=== PATIENT | female | born 1935 | race Caucasian/White ===

== ENCOUNTER 2021-05-19 15:18 | Emergency (ER) | payer MEDICARE, SELFPAY ==
[2021-05-19 15:30] VITALS: BP 148/70; PULSE 73; RESP 16; TEMP 36.1; O2SAT 99
--- NOTE | 2021-05-19 15:45 | ED.URI ---
HPI - URI/Sore Throat General Chief Complaint: Upper Respiratory Infection Stated Complaint: headache/dizzy/nausea/weak History of Present Illness HPI Narrative: This is a 85-year-old female comes in complaining of multiple complaints patient states that she has had dizziness she spoke with her mailmaster about this. Patient also has had some sweating under her arms and her groin area. Patient also had some nausea and states she is having some body aches she has been vaccinated with Pfizer she is wants to make sure that she does not have Covid Related Data Home Medications Medication Instructions Recorded Confirmed levothyroxine 50 mcg tablet 50 mcg PO DAILY 09/23/20 lorazepam 1 mg tablet 1 mg PO .hs PRN tablet 09/23/20 vbsaiaisislr-Iu-hmkr-minerals tablet PO 09/23/20 Allergies Allergy/AdvReac Type Severity Reaction Status Date / Time sucralfate Allergy Mild HIVES Verified 09/23/20 12:32 sulfamethoxazole Allergy Mild Hives / Verified 09/23/20 12:32 Red Face trimethoprim Allergy Mild Hives / Verified 09/23/20 12:32 Red Face clarithromycin Allergy Unknown Hives Verified 09/23/20 12:32 metronidazole Allergy Unknown Rash Verified 09/23/20 12:32 Sulfa (Sulfonamide Allergy Unknown Hives Verified 09/23/20 12:32 Antibiotics) Review of Systems Review of Systems: HEET headache, body aches ABD : [place] All systems reviewed & are unremarkable except as noted in HPI and below PMFSH Past Medical History Medical History (Updated 05/19/21 @ 15:50 by Marcos Chavira NP) CAD (coronary artery disease) Surgical History Surgical History (Updated 09/23/20 @ 12:38 by Maria Perera CMA) H/O eye surgery Family History Family History (Updated 04/17/14 @ 07:13 by DOCTOR UNKNOWN) Mother Family history of thyroid disease Family history of osteoporosis Family history of cataracts Family history of arthritis Carcinoma of colon Father Family history of arthritis Family history of heart disease in male family member before age 55 Family history of hearing loss Social History Social History (Updated 09/23/20 @ 12:42 by Maria Perera CMA) Smoking status: Never smoker Alcohol intake: never Substance use: never Gender identity (if verbalized by the patient): Female Agree to blood products: No Comments At time as signature, I have reviewed and agree with nursing past medical, social, surgical and family history. Please see nursing chart for further information. There is no relevant family history pertinent to the presenting complaint. Exam Narrative: GENERAL:Well-appearing, well-nourished, and in no acute distress. HEAD:Normocephalic, atraumatic. EYES: PERRLA ENT: Nares clear, no rhinorrhea or epistaxis. Mucous membranes moist. NECK: Supple. CHEST: Clear to auscultation. No respiratory distress. HEART: Regular rate and rhythm. Normal peripheral pulses. ABDOMEN: Soft, nontender, nondistended, normal active bowel sounds. EXTREMITIES: Normal range of motion. No edema. SKIN: Warm, dry, no rash. NEURO: No focal deficits. Alert and oriented x3. Essentially negative exam Course INSECTICIDE MIXER/PA Physician Supervision Negative covid Vital Signs Vital signs: Vital Signs Temperature 96.9 F L 05/19/21 15:30 Pulse Rate 73 05/19/21 15:30 Respiratory Rate 16 05/19/21 15:30 Blood Pressure 148/70 H 05/19/21 15:30 Pulse Oximetry 99 05/19/21 15:30 Temperature 96.9 F L 05/19/21 15:30 Pulse Rate 73 05/19/21 15:30 Respiratory Rate 16 05/19/21 15:30 Blood Pressure 148/70 H 05/19/21 15:30 Pulse Oximetry 99 05/19/21 15:30 MDM - URI/Sore Throat Differential Diagnosis Differential diagnosis: Likely upper respiratory infection, croup, otitis media, sinusitis, viral infection, bronchitis, influenza and pharyngitis Discharge Plan Discharge Clinical Impression: Viral infection Hypertension Qualifiers: Hypertension type: unspecified Qualified Code(
== END 2021-05-19 15:53 | disposition home or self-care (01) ==
PROVIDERS: Emergency Provider Nurse Practitioner Family; PCP Internal Medicine Geriatric Medicine
DX: B34.9 Viral infection, unspecified (principal); I10 Essential (primary) hypertension; Z20.822 Contact with and (suspected) exposure to COVID-19; I25.10 Atherosclerotic heart disease of native coronary artery without angina pectoris; E03.9 Hypothyroidism, unspecified; I48.91 Unspecified atrial fibrillation
CPT/HCPCS: 87426; 99213; C9803; G0463

== ENCOUNTER 2024-08-04 17:38 | Emergency (ER) | payer MEDICARE, SELFPAY ==
--- NOTE | ~2024-08-04 | CT_ITS ---
EXAMINATION: CT brain wo con DATE: 08/04/2024 19:12 INDICATION: altered mental status . TECHNIQUE: Computed tomography (CT) of the head was performed without intravenous contrast. The mA wa s adjusted according to patient size. Iterative reconstruction technique was employed. The dose-lengt h product was 681.00 mGy-cm. COMPARISON: 05/23/2019. FINDINGS: No acute intracranial hemorrhage or extra-axial fluid collection. No hydrocephalus, mass, or herniation. No acute ischemic infarct. Unremarkable dural venous sinus attenuation. No acute osseous abnormality. Left maxillary mucosal thickening, the remaining aerated spaces are clear. Mild atrophy and chronic white matter change. Atherosclerotic intracranial calcification. Right basal ganglia calcification. Left lens replacement. IMPRESSION: No acute intracranial process. Reviewed, dictated and finalized at location [facility]
[2024-08-04 17:46] VITALS: BP 185/69; PULSE 81; RESP 16; TEMP 36.7; O2SAT 96
[2024-08-04 18:00] VITALS: BP 175/73; PULSE 80; RESP 19; O2SAT 98
[2024-08-04 18:55] VITALS: BP 155/75; PULSE 80; RESP 17; O2SAT 96
--- NOTE | 2024-08-04 18:59 | ED.HA ---
HPI - Headache General Chief Complaint: Headache Stated Complaint: multiple complaints Time Seen by Provider: 08/04/24 17:55 History of Present Illness HPI Narrative: Patient is an 88-year-old female who presents to the ER with complaints of a pressure headache , vision changes , decreased hearing, and increased sinus pressure. She reports this morning around 6:30 a.m. she felt a loud pop in her L neck. Patient reports she took Tylenol and that helped her feel better. She reports this afternoon she started experiencing these new symptoms. Patient is unable to determine the exact time. She reports she has a history of cervical spine bad vertebrate issues. Patient also endorses she takes Eliquis because she has a pacemaker. She presents to the ER today because she is worried that she has a brain bleed. Patient believes her equilibrium is off. She denies any fevers, one-sided numbness/ tingling /weakness, nausea/vomiting, chest pain, shortness of breath. Related Data Home Medications ?Medication ?Instructions ?Recorded ?Confirmed ?Last Taken ?Type levothyroxine 50 mcg tablet 50 mcg PO DAILY 09/23/20 Unknown History (Synthroid) lorazepam 1 mg tablet (Ativan) 1 mg PO .hs PRN 09/23/20 Unknown History rusquakxrcto-Wv-txnt-minerals tablet PO 09/23/20 Unknown History (Multiple Vitamin, Womens tablet) Allergies Allergy/AdvReac Type Severity Reaction Status Date / Time sucralfate Allergy Mild HIVES Verified 08/04/24 18:04 sulfamethoxazole Allergy Mild Hives / Verified 08/04/24 18:04 Red Face trimethoprim Allergy Mild Hives / Verified 08/04/24 18:04 Red Face clarithromycin Allergy Unknown Hives Verified 08/04/24 18:04 metronidazole Allergy Unknown Rash Verified 08/04/24 18:04 Sulfa (Sulfonamide Allergy Unknown Hives Verified 08/04/24 18:04 Antibiotics) adhesive tape AdvReac Mild Hives Verified 08/04/24 18:04 Review of Systems Review of Systems: All systems reviewed & are unremarkable except as noted in HPI and below PMFSH Past Medical History Medical History CAD (coronary artery disease) Surgical History Surgical History H/O eye surgery Family History Family History Mother Family history of thyroid disease Family history of osteoporosis Family history of cataracts Family history of arthritis Carcinoma of colon Father Family history of arthritis Family history of heart disease in male family member before age 55 Family history of hearing loss Social History Social History Smoking status: Never smoker Alcohol intake: never Substance use: never Gender identity (if verbalized by the patient): Female Agree to blood products: No Course Vital Signs Vital signs: Vital Signs Temperature 36.7 C 08/04/24 17:46 Pulse Rate 81 08/04/24 17:46 Respiratory Rate 16 08/04/24 17:46 Blood Pressure 185/69 H 08/04/24 17:46 Pulse Oximetry 96 08/04/24 17:46 Oxygen Delivery Room Air 08/04/24 17:46 Temperature 36.7 C 08/04/24 17:46 Pulse Rate 75 08/04/24 20:05 Respiratory Rate 18 08/04/24 20:05 Blood Pressure 141/82 H 08/04/24 20:05 Pulse Oximetry 99 08/04/24 20:05 Oxygen Delivery Room Air 08/04/24 17:46 MDM - Headache MDM Narrative Medical decision making narrative: Patient is an 88-year-old female who presents to the ER with complaints of a pressure headache , vision changes , decreased hearing, and increased sinus pressure. She reports this morning around 6:30 a.m. she felt a loud pop in her L neck. Patient reports she took Tylenol and that helped her feel better. She reports this afternoon she started experiencing these new symptoms. Patient is unable to determine the exact time. She reports she has a history of cervical spine bad vertebrate issues. Patient also endorses she takes Eliquis because she has a pacemaker. She presents to the ER today because she is worried that she has a brain bleed. Patient believes her equilibrium is off. She denies any fevers, one-sided numbness/ tingling /weakness, nausea/vomiting, chest pain, shortness of breath. Labs Ordered: troponin, PTT, INR, CMP, CBC, COVID/flu/RSV Imaging Ordered: CT brain Results: CT brain indicates No acute intracranial hemorrhage or extra-axial fluid collection. No hydrocephalus, mass, or herniation. No acute ischemic infarct. Unremarkable dural venous sinus attenuation. No acute osseous abnormality. Left maxillary mucosal thickening, the remaining aerated spaces are clear. Mild atrophy and chronic white matter change. Atherosclerotic intracranial calcification. Right basal ganglia calcification. Left lens replacement. Diagnosis: sinusitis, sinus headache Consults: None necessary Patient Education/Shared MDM: Results shared with patient. Patient was relieved to hear she did not have a brain bleed or a brain tumor. When CHAMBER OF [employer] DIVISION MANAGER inquired about patient's sinuses she reports my CHAMBER [employer] DIVISION MANAGER tells me my sinuses are really messed. Extensive education was provided to patient regarding congestion and how that can lead to muffled hearing, headaches and facial pain. Patient and her daughter were both in agreement that this could be causing her hearing changes and other symptoms. It is unclear why patient reports her vision has changed, but she states my vision is terrible the way it is, but I just saw the telescope repairer. Patient reports she had an MRI performed recently and the results were normal. She also reports she has a appointment with her primary care provider on Monday, 2 days from now. Patient's daughter reports she does not want to be here. It was discussed with patient that she could try using a nasal steroid spray and Claritin to see if this helps to relieve the pressure in her head and clear up her hearing. Patient and her daughter were in agreement with this plan and will follow-up with primary care on Monday as planned. She reports she has been told by her industrial psychologist that she should not take oral steroids. Patient is in agreement with current treatment plan. All questions answered. Vital signs stable at time of discharge. Differential Diagnosis Differential diagnosis: Likely tension headache, subarachnoid hemorrhage, headache and sinusitis Lab Data Attestation: I reviewed the patient's lab results. 08/04/24 19:24 08/04/24 19:24 Labs: Lab Results 08/04/24 08/04/24 Range/Units 19:04 19:24 WBC 5.1 (4.5-10.0) K/mm3 RBC 4.52 (4.2-5.4) M/mm3 Hgb 14.0 (12.0-15.0) g/dL Hct 42.2 (37.0-47.0) % MCV 93.4 (80-100) fl MCH 31.0 (26-34) pg MCHC 33.2 (32-36) g/dl RDW 14.5 (11.5-14.5) % Plt Count 250 (150-375) k/mm3 MPV 9.7 (7.4-10.4) fl Immature Gran % (Auto) 0.2 (0-0.5) % Neut % (Auto) 50.2 (45.5-73.1) % Lymph % (Auto) 37.8 (18.3-44.2) % Boyle % (Auto) 9.4 H (2.6-8.5) % Eos % (Auto) 1.4 (0-4.4) % Baso % (Auto) 1.0 (0.2-1.2) % Lymph # (Auto) 1.93 (0.9-3.2) K/mm3 Boyle # (Auto) 0.5 (0.1-0.6) K/mm3 Eos # (Auto) 0.1 (0-0.3) K/mm3 Baso # (Auto) 0.1 (0.0-0.1) K/mm3 Abs Immat Gran (auto) 0.01 (0.00-0.031) K/mm3 Absolute Neuts (auto) 2.6 (1.3-6.7) K/mm3 Absolute Nucleated RBC 0.000 (0.0-0.012) K/mm3 Nucleated RBC % 0.0 (0.0-0.2) % PT 12.8 (11.1-14.7) Seconds INR 0.9 APTT 31.0 (22.3-36.8) Seconds Sodium 136 L (137-145) mmol/L Potassium 4.0 (3.4-5.0) mmol/L Chloride 104 (98-107) mmol/L Carbon Dioxide 29 (22-30) mmol/L Anion Gap 3 L (4-12) mmol/L BUN 17 (7-17) mg/dL Creatinine 0.70 (0.7-1.0) mg/dL Estim Creat Clear Calc 42 ml/min Estimated GFR > 60 (59 - ) Glucose 79 (65-110) mg/dL Calcium 9.5 (8.4-10.2) mg/dL Total Bilirubin 0.5 (0.2-1.3) mg/dL AST 36 (14-36) U/L ALT 30 (6-35) U/L Alkaline Phosphatase 74 (38-126) U/L Troponin I < 0.012 (0.000-0.034) ng/mL Total Protein 7.0 (6.3-8.2) g/dL Albumin 4.3 (3.5-5.1) g/dL Influenza A (RT-PCR) Negative (Negative) Influenza B (RT-PCR) Negative (Negative) RSV (RT-PCR) Negative (Negative) SARS-CoV-2 RNA (RT-PCR) Negative (Negative) Imaging Data Attestation: I personally reviewed and interpreted this imaging study as follows: Radiologist's impression: Impressions Head CT 08/04/24 19:12 IMPRESSION: No acute intracranial process. Discharge Plan Discharge Clinical Impression: Sinusitis, Tension headache Patient Disposition: Home, Self-Care Condition: Stable Instructions: Antibiotic Form, Sinusitis (ED), Tension Headache (ED) Additional Instructions: Please return to the ER with an worsening symptoms. Follow-up with primary care provider in the next 2-3 days. Take all medications as prescribed. Patient Language: Setswana Prescriptions: New fluticasone propionate [Flonase Allergy Relief] 50 mcg/actuation spray,suspension 1 spray intranasal BID Qty: 16 0RF Rx Instructions: administer into each nostril loratadine [Claritin] 10 mg tablet 10 mg PO DAILY Qty: 10 0RF No Action ondansetron HCl 4 mg tablet 4 mg PO Q8H PRN (Reason: nausea and vomiting) Qty: 10 0RF levothyroxine [Synthroid] 50 mcg tablet 50 mcg PO DAILY lorazepam [Ativan] 1 mg tablet 1 mg PO .hs PRN Multiple Vitamin, Womens Tablet PO Follow-up/Referrals: Christine,MD Nabila [Primary Care Provider] - Time of Disposition: 21:21
--- NOTE | 2024-08-04 19:18 | PC.NURSE ---
Per previous RN, pt is refusing EKG due to being allergic to the stickers .
[2024-08-04 19:32] LABS: Basophils Absolute Auto 0.1 K/mm3 (0.0-0.1); Eosinophils Absolute Auto 0.1 K/mm3 (0-0.3); Eosinophils Percent Auto 1.4 % (0-4.4); Hematocrit 42.2 % (37.0-47.0); Immature Granulocyte Absolute 0.01 K/mm3 (0.00-0.031); Immature Granulocyte Percent A 0.2 % (0-0.5); Lymphocytes Absolute Auto 1.93 K/mm3 (0.9-3.2); Lymphocytes Percent Auto 37.8 % (18.3-44.2); Mean Corpuscular HGB Conc 33.2 g/dl (32-36); Mean Corpuscular Volume 93.4 fl (80-100); Mean Platelet Volume 9.7 fl (7.4-10.4); Monocytes Absolute Auto 0.5 K/mm3 (0.1-0.6); Monocytes Percent Auto 9.4 % (2.6-8.5); Neutrophils Absolute Auto 2.6 K/mm3 (1.3-6.7); Neutrophils Percent Auto 50.2 % (45.5-73.1); Platelet Count Result 250 k/mm3 (150-375); Red Blood Count 4.52 M/mm3 (4.2-5.4); Red Cell Distribution Width 14.5 % (11.5-14.5); White Blood Count 5.1 K/mm3 (4.5-10.0)
--- NOTE | 2024-08-04 19:39 | PC.NURSE ---
This RN aasked pt again fi we can get EKG and pt is still refusing EKG at this time. Pt states I see my doctor Herminia and they will take care of it then
[2024-08-04 19:46] LABS: Influenza A QL RT-PCR Negative (Negative); Influenza B QL RT-PCR Negative (Negative); RSV RNA, RT-PCR Negative (Negative); SARS-CoV-2 RNA PCR Negative (Negative)
[2024-08-04 19:48] LABS: Alanine Aminotransferase 30 U/L (6-35); Albumin Level 4.3 g/dL (3.5-5.1); Alkaline Phosphatase 74 U/L (38-126); Anion Gap 3 mmol/L (4-12); Aspartate Amino Transferase 36 U/L (14-36); Bilirubin,Total 0.5 mg/dL (0.2-1.3); Blood Urea Nitrogen 17 mg/dL (7-17); Calcium 9.5 mg/dL (8.4-10.2); Carbon Dioxide 29 mmol/L (22-30); Chloride 104 mmol/L (98-107); Estimated CRCL calculation 42 ml/min; Estimated Glomerular Filt Rate > 60; Glucose 79 mg/dL (65-110); Sodium 136 mmol/L (137-145)
[2024-08-04 19:49] LABS: INR 0.9; Prothrombin Time 12.8 Seconds (11.1-14.7)
[2024-08-04 20:00] LABS: Troponin I < 0.012 ng/mL (0.000-0.034)
[2024-08-04 20:05] VITALS: BP 141/82; PULSE 75; RESP 18; O2SAT 99
[2024-08-04 21:24] VITALS: BP 113/78; PULSE 66; RESP 18; O2SAT 98
--- OUTSIDE RECORDS SUMMARY | 2024-08-09 17:41 | XMS_ITS | Encounter Summary ---
Author Organization [facility] - [facility] Address [address] [place] [address]. [place] [address] [place] [address] Care Team Providers Care Flight Engineer Manager Name Role Phone Regulo Pandey MD Unavailable Nabila King MD Primary Care Provider [phone] Reason for Visit * Reason Onset Date Comments Results 03/26/2021 Encounter Details Date Type Department Care Team (Late st Contact Info) Description 03/26/[address] [address] Vanessa Lucia, BR[place] Results Social History Tobacco Use Types Packs/Day Years Used Date Smoking Tobacco: Never Smokeless Tobacco: Never Alcohol Use Standard Drinks/Week Comments No 0 (1 standard drink = 0.6 oz pur e alcohol) Humiliation, Afraid, Rape, and Kick questionnair e Answer Date Recorded Within the last year, have y ou been afraid of your partner or ex-partner? No 02/15/2021 Within the last year, have y ou been humiliated or emotionally abused in other ways by your partner or ex-partner? No Within the last year, have y ou been kicked, hit, slapped, or otherwise physically hurt by your partner or ex-partner? No 02/15/2021 Within the last year, have y ou been raped or forced to have any kind of sexual activity by your partner or ex-partner? No 02/15/2021 Social Connection and Isolat ion Panel [NHANES] Answer Date Recorded In a typical week, how many times do you talk on the phone with family, friends, or neighbors? Three times a week 02/15/2021 How often do you get togethe r with friends or relatives? Three times a week 02/15/2021 How often do you attend chur ch or advent services? More than 4 times per year 02/15/2021 Do you belong to any clubs o r organizations such as hindu groups, unions, fraternal or athletic groups, or school groups? No 02/15/2021 How often do you attend meet ings of the clubs or organizations you belong to? Never 02/15/2021 Are you , , di vorced, , never , or living with a partner? 02/15/2021 AUDIT-C Answer Date Recorded Q1: How often do you have a drink containing alc ohol? Never 02/15/2021 Average Number of Drinks Not on file Frequency of Binge Drinking Not on file 01/20 Overall Financial Resource Strain (CARDIA) Answe r Date Recorded How hard is it for you to pa y for the very basics like food, housing, medical care, and heating? Not hard at all 02/15/2021 [facility] - Occupational Stress Questionnaire Answer Date Recorded Do you feel stress - tense, restless, nervous, or anxious, or unable to sleep at night because your mind is troubled all the time - these days? Not at all 02/15/2021 Exercise Vital Sign Answer Date Recorde d On average, how many days pe r week do you engage in moderate to strenuous exercise (like a brisk walk)? 5 days 02/15/2021 On average, how many minutes do you engage in exercise at this level? 40 min 02/15/2021 Hunger Vital Sign Answer Date Recorded Within the past 12 months, y ou worried that your food would run out before you got the money to buy more. Never true 02/16/20 21 Within the past 12 months, t he food you bought just didn't last and you didn't have money to get more. Never true 02/15/2021 PRAPARE - Transportation Answer Date Re corded In the past 12 months, has l ack of transportation kept you from medical appointments or from getting medications? No 01/20 In the past 12 months, has l ack of transportation kept you from meetings, work, or from getting things needed for daily living? No 02/15/2021 Housing Stability Vital Sign Answer Max e Recorded In the last 12 months, was t here a time when you were not able to pay the mortgage or rent on time? No 02/15/2021 Number of Places Lived in the Last Year Not on f ile 02/15/2021 In the last 12 months, was t here a time when you did not have a steady place to sleep or slept in a retirement (including now)? No 02/15/2021 Comments No Sex and Gender Information Value Date Recorded Sex Assigned at Not on file Legal Sex Female 5:00 PM CDT Gender Identity Not on file Sexual Orientation Not on file Occupation Industry Job Start Date Job End Date Not on file Not on file Not on file Not on file COVID-19 Exposure Response Date Recorded In the last month, have you been in contact with someone who was confirmed or suspected to have Coronavirus / COVID-19? No / Unsure 03/22/2021 8:53 AM CDT documented as of this encounter Functional Status * RETIRED Are you deaf or do you have serious difficulty hearing Answer Date of Assessment Author Status No 02/15/2021 5:41 PM CDT Activ e * RETIRED Are you blind or do you have serious difficulty seeing, even when wearing glasses? Answer Date of Assessment Author Status No 02/15/2021 5:41 PM CDT Activ e * Do you have serious difficulty walking or climbing stairs? Answer Date of Assessment Author Status No 02/15/2021 5:41 PM CDT Shruthi Crane RN Active * Do you have difficulty dressing or bathing? Answer Date of Assessment Author Status No 02/15/2021 5:41 PM CDT Shruthi Crane RN Active * Because of a physical, mental, or emotional condition, do you have difficulty doing errands alone such as visiting a doctor's office or shopping? Answer Date of Assessment Author Status No 02/15/2021 5:41 PM CDT Shruthi Crane RN Active documented as of this encounter Mental Status * Because of a physical, mental, or emotional condition, do you have serious difficulty concentrating, remembering, or making decisions? Answer Entry Date Author Status No 02/15/2021 5:41 PM CDT Shruthi Crane RN Active documented in this encounter Progress Notes * Vanessa Lucia RN - 03/26/2021 1:02 PM CDT No sustained arrhythmias. One symptom episode was a brief non sustained surpraventricular run. There was no AF detected. Above message from Dr. Méndez (after review of the monitor). I called the patient - no answer, no voicemail picked up. 3:17pm - I informed the patient of the above information from Dr. Méndez and to call our office with any questions or concerns. The patient verbalized understanding, she is feeling better, and had no further questions. documented in this encounter Plan of Treatment Not on file documented as of this encounter Visit Diagnoses Not on filedocumented in this encounter Care Teams Flight Engineer Manager Relationship Specialty Start Date End Date Nabila King MD [address] [place] [address], [place] [id number] PCP - General INTERNAL MEDICINE 12/08/20 Regulo Pandey MD Three [facility] [address] [place] [address] [place] Roaster Supervisor CARDIOVASCULAR DISEASE 03/21/16 documented as of this encounter
--- OUTSIDE RECORDS SUMMARY | 2024-08-09 17:41 | XMS_ITS | Encounter Summary ---
Author Organization [facility] Address [address] [place] [address]. [place] [address] [place] [address] Care Team Providers Care Motor Assembly Supervisor Name Role Phone Regulo Pandey MD Unavailable Nabila King MD Primary Care Provider [phone] Reason for Visit * Auth/Cert Specialty Diagnoses / Procedures Referred By Contac t Referred To Contact Diagnoses SVT (supraventricular tachycardia) ([facility]/HCC [facility]) Procedures XA SVT WPW ABLATION Referral ID Status Reason Start Date Expiration Date Visits Re quested Visits Authorized [id number] 1 1 Encounter Details Date Type Department Care Team (Late st Contact Info) Description 02/15/2021 9:55 AM CDT - 02/15/2021 10:07 AM CDT Hospital Encounter [facility] [place] [address] Gigi Méndez MD [facility]. [facility] [address] [place] [address] Discharge Disposition: Home or Self Care (Routine Discharge) Social History Tobacco Use Types Packs/Day Years [...] 02/15/2021 How often do you attend chur or rastafarian services? More than 4 times per year 02/15/2021 Do you belong to any clubs o r organizations such as samaritan groups, unions, fraternal or athletic groups, or [...] Average Number of Drinks Not on file 021 Frequency of Binge Drinking Not on file 01/20 Overall Financial Resource Strain (CARDIA) Answe r Date Recorded How hard is it for you to pa y for the very basics like food, housing, medical care, and heating? Not hard at all 02/15/2021 [facility] of Occupat ional Health - Occupational Stress [...] have Coronavirus / COVID-19? No / Unsure 02/15/2021 10:05 AM CDT documented as of this encounter [...] Assessment Author Status No 02/15/2021 5:41 PM ARMANDT Shruthi Crane RN Active * Because of a physical, mental, or emotional condition, do you have difficulty doing errands alone such as visiting a doctor's office or shopping? Answer Date of Assessment Author Status No 02/15/2021 5:41 PM ARMANDT Shruthi Crane RN Active documented as of this encounter Mental Status * Because of a physical, mental, or emotional condition, do you have serious difficulty concentrating, remembering, or making decisions? Answer Entry Date Author Status No 02/15/2021 5:41 PM CDT Shruthi Crane RN Active documented in this encounter Medications at Time of Discharge B Complex Vitamins (VITAMIN B COMPLEX) Tab Take 1 tablet by mouth daily. 04/05/2016 Cholecalciferol (VITAMIN D3) 2000 UNITS Tab Take 1 tablet by mouth daily. 04/05/2016 levothyroxine 50 MCG tablet Take 50 mcg by mouth every morning. Take 50mcg and 100mcg alternating days 05/22/2018 melatonin 3 MG tablet Take 1 tablet (3 mg total) by mouth nightly at bedtime. 04/05/2016 apixaban 5 MG tablet Take 1 tablet (5 mg total) by mouth 2 (two) times daily. 60 tablet 5 02/16/2021 1 LORazepam (ATIVAN) 0.5 MG tabletIndication s:Insomnia Take 1 tablet (0.5 mg total) by mouth nightly at bedtime. 7 tablet 12/08/2020 1 Misc Natural Products (TURMERIC CURCUMIN) Cap Take 1 capsule by mouth daily. 04/05/2016 1 documented as of this encounter Plan of Treatment Not on file documented as of this encounter Procedures Procedure Name Priority Date/Time Associated Diagnosis Comments TYPE & SCREEN STAT 02/15/2021 10:12 AM CDT SVT (supraventricular tachycardia) PROTHROMBIN TIME, VENOUS STAT 02/15/2021 10:12 AM CDT SVT (supraventricular tachycardia) BASIC METABOLIC PANEL STAT 02/15/2021 10:12 AM CDT SVT (supraventricular tachycardia) CBC W/DIFF AUTOMATED STAT 02/15/2021 10:12 AM CDT SVT (supraventricular tachycardia) documented in this encounter Results * TYPE & SCREEN (02/15/2021 10:12 AM CDT) ABO/RH O POSITIVE 02/15/2021 12:06 PM CDT [facility] ANTIBODY SCREEN NEGATIVE 02/15/2021 12:06 PM CDT [facility] SAMPLE EXPIRATION 02/18/2021,2 359 02/15/2021 12:06 PM CDT [facility] 02/15/2021 10:1 2 AM CDT Gigi Méndez MD BLOOD BANK TEST ORDERABLES Final Result Performing Organization Address City/[facility] Co de Phone Number [facility] [address] [place] [address], [place] [phone] * PROTIME/INR, VENOUS (02/15/2021 10:12 AM CDT) PROTIME 11.5 10.2 - 12.9 SEC 02/15/2021 11:03 AM CDT [facility] INR 1.0 02/15/2021 11:03 AM CDT [facility] Comment: Recommended INR Therapeutic Goals: ??2.0-3.0 Routine Therapy ??2.5-3.5 Mechanical Prosthetic Valves (High Risk) 02/15/2021 10:1 2 AM CDT us Gigi Méndez MD LABORATORY Final Resul t [facility] [address] [place] [address], * CBC W/DIFF AUTOMATED (02/15/2021 10:12 AM CDT) [facility] WBC 6.2 4.5 - 11.0 x10'3/uL 02/15/2021 10:43 AM CDT [facility] RBC 4.58 4.20 - 5.40 x10'6/uL 02/15/2021 10:43 AM CDT [facility] HGB 14.2 12.0 - 16.0 G/DL 02/15/2021 10:43 AM CDT [facility] HCT 43.5 38.0 - 48.0 % 02/15/2021 10:43 AM CDT [facility] MCV 95.0 81.0 - 99.0 FL 02/15/2021 10:43 AM CDT [facility] MCH 31.0 27.0 - 31.0 PG 02/15/2021 10:43 AM CDT [facility] MCHC 32.6 32.0 - 36.0 G/DL 02/15/2021 10:43 AM CDT [facility] RDW 13.9 11.5 - 14.5 % 02/15/2021 10:43 AM CDT [facility] PLT 229 130 - 400 x10'3/uL 02/15/2021 10:43 AM CDT [facility] MPV 10.6 9.3 - 12.2 FL 02/15/2021 10:43 AM CDT [facility] DIFFERENTIAL TYPE AUTOMATED DIFFERENTIAL 02/15/2021 10:43 AM CDT [facility] NEUTROPHILS % 54.1 % 02/15/2021 10:43 AM CDT [facility] LYMPHOCYTES % 37.2 % 02/15/2021 10:43 AM CDT [facility] MONOCYTES % 6.9 % 02/15/2021 10:43 AM CDT [facility] EOSINOPHILS 1.0 % 02/15/2021 10:43 AM CDT [facility] BASOPHILS 0.6 % 02/15/2021 10:43 AM CDT [facility] IMMATURE GRANS % 0.2 % 02/16/20 10:43 AM CDT [facility] ABS. NEUTROPHILS TOTAL 3.36 1.80 - 7.70 x10'3/uL 02/15/2021 10:43 AM CDT [facility] ABS. LYMPHOCYTES 2.31 1.00 - 4.80 x10'3/uL 02/15/2021 10:43 AM CDT [facility] ABS. MONOCYTES 0.43 0.24 - 0.86 x10'3/uL 02/15/2021 10:43 AM CDT [facility] ABS. EOSINOPHILS 0.06 0.04 - 0.36 x10'3/uL 02/15/2021 10:43 AM CDT [facility] ABS. BASOPHILS 0.04 0.01 - 0.08 x10'3/uL 02/15/2021 10:43 AM CDT [facility] ABS. IMMATURE GRANULOCYTES 0.01 0.00 - 0.49 x10'3/uL 02/15/2021 10:43 AM CDT [facility] 02/15/2021 10:1 2 AM CDT us Gigi Méndez MD LABORATORY Final Resul t [facility] [address] [place] [address], * (ABNORMAL) BASIC METABOLIC PANEL (02/15/2021 10:12 AM CDT) [facility] GLUCOSE 83 70 - 99 MG/DL 02/15/2021 11:05 AM T [facility] BUN 16 7 - 18 MG/DL 02/15/2021 11:05 AM [facility] CREATININE S/P/B 0.77 0.55 - 1.02 MG/DL 02/15/2021 11:05 AM T [facility] SODIUM S/P/B 139 136 - 145 MMOL/L 02/15/2021 11:05 AM T [facility] POTASSIUM S/P/B 4.2 3.5 - 5.1 MMOL/L 02/15/2021 11:05 AM [facility] CHLORIDE S/P/B 106 100 - 108 MMOL/L 02/15/2021 11:05 AM [facility] CO2 27.7 21 - 32 MMOL/L 02/15/2021 11:05 AM [facility] CALCIUM S/P/B 9.7 8.5 - 10.1 MG/DL 02/15/2021 11:05 AM [facility] ANION GAP 5.3 5 - 15 MMOL/L 02/15/2021 11:05 AM [facility] BUN CREATININE RATIO 20.7 6 - 26 02/15/2021 11:05 AM [facility] EGFR NON-AFR. AMER. 71(L) >90 ML/MIN/1.7 3 M2 02/15/2021 11:05 AM [facility] EGFR AFR. AMER. 82(L) >90 ML/MIN/1.7 3 M2 02/15/2021 11:05 AM [facility] Comment: NOTE: eGFR is not calculated for patients <18 years of age. This is an estimated GFR (CKD EPI) and should not be used for calculating drug doses. 02/15/2021 10:1 2 AM CDT Gigi Méndez MD LABORATORY Final Resul t [facility] [address] [place] [address], documented in this encounter Visit Diagnoses Diagnosis SVT (supraventricular tachycardia) (CMS/HCC HHS/HCC) Other specified cardiac dysrhythmias documented in this encounter Care Teams Motor Assembly Supervisor Relationship Specialty Start Date End Date Nabila King MD [address] [place] [address] PCP - General INTERNAL MEDICINE 12/08/20 Regulo Pandey MD [facility]. [facility] [address] [place] [address] [place] Field Case Manager CARDIOVASCULAR DISEASE 03/21/16 documented as of this encounter
--- OUTSIDE RECORDS SUMMARY | 2024-08-09 17:41 | XMS_ITS | Encounter Summary ---
Author Organization [facility] Address [address] [place] [address]. [place] [address] [place] [address] Care Team Providers Care University Teacher Name Role Phone Jason Winters MD Primary Care Provider [phone] Regulo Pandey MD Unavailable Reason for Visit * Reason Onset Date Comments Appointment Request 04/18/2018 PATIENT REQU EST APPOINTMENT FOR ULTRASOUND Encounter Details Date Type Department Care Team (Late st Contact Info) Description 04/18/2018 Telephone [facility], [facility] [address] [place] [address] Regulo Pandey MD [facility]. [facility] [address] [place] [address] Appointment Request (PATIENT REQUEST APPOINTMENT FOR ULTRASOUND) Social History Tobacco Use Types Packs/Day Years Used Date Smoking Tobacco: Never Smokeless Tobacco: Never Alcohol Use Standard Drinks/Week Comments No 0 (1 standard drink = 0.6 oz pur e alcohol) Comments Unknown Sex and Gender Information Value Date Recorded Sex Assigned at Not on file Legal Sex Female 5:00 PM CDT Gender Identity Not on file Sexual Orientation Not on file documented as of this encounter Progress Notes * LYNNE White - 04/18/2018 11:52 AM CDT Received voicemail message from patient that she was calling to schedule her 2 year heart ultrasound. Return number [phone]. Reviewed chart. Patient was last seen in the office 04/05/16 for a consult. Never scheduled a follow-up appointment after echo and stress test done in 2016. Called patient to schedule an appointment since she has not been here since 2016. No answer, no voicemail to leave message. documented in this encounter Plan of Treatment Not on file documented as of this encounter Visit Diagnoses Not on filedocumented in this encounter Care Teams University Teacher Relationship Specialty Start Date End Date Jason Winters MD [address] [place] [address] PCP - General FAMILY PRACTICE 03/21/16 12/07/20 Regulo Pandey MD [facility] [address] [place] [address] [place] Gluer CARDIOVASCULAR DISEASE 03/21/16 documented as of this encounter
--- OUTSIDE RECORDS SUMMARY | 2024-08-09 17:41 | XMS_ITS | Encounter Summary ---
Author Organization [facility] Address [address] [place] [address]. [place], [place] [address] [place] [address] Care Team Providers Care Automatic Fabric Cutter Name Role Phone Regulo Pandey MD Unavailable Nabila King MD Primary Care Provider [phone] Encounter Details Date Type Department Care Team (Latest Contact Info) Description 02/15/2021 Travel Social History Tobacco Use Types Packs/Day Years [...] week 02/15/2021 How often do you attend [facility] or muslim services? More than 4 times per year 02/15/2021 Do you belong to any clubs o r organizations such as lutheran groups, unions, fraternal or athletic groups, or [...] and heating? Not hard at all 02/15/2021 [facility] of Occupat ional Health - Occupational Stress [...] place to sleep or slept in a longterm (including now)? No 02/15/2021 Comments No Sex [...] as of this encounter Functional Status * Question Answer Date of Assessment Author Status Do you have serious difficulty walking or climbing stairs? No 02/15/2021 5:41 PM Shruthi Banda RN Act carlos * Question Answer Date of Assessment Author Status Do you have difficulty dressing or bathing? No 02/15/2021 5:41 PM Shruthi Banda RN Active Because of a physical, mental, or emotional condition, do you have difficulty doing errands alone such as visiting a doctor's office or shopping? No 02/15/2021 5:41 PM Shruthi Banda RN Acti ve * RETIRED Are you deaf or do you have serious difficulty hearing Answer Date of Assessment Author Status No 02/15/2021 5:41 PM LUIGI Activ e * RETIRED Are you blind or do you have serious difficulty seeing, even when wearing glasses? Answer Date of Assessment Author Status No 02/15/2021 5:41 PM LUIGI Activ e * Do you have serious difficulty walking or climbing stairs? Answer Date of Assessment Author Status No 02/15/2021 5:41 PM Shruthi Banda RN Active * Do you have difficulty dressing or bathing? Answer Date of Assessment Author Status No 02/15/2021 5:41 PM Shruthi Banda RN Active * Because of a physical, mental, or emotional condition, do you have difficulty doing errands alone such as visiting a doctor's office or shopping? Answer Date of Assessment Author Status No 02/15/2021 5:41 PM Shruthi Banda RN Active documented as of this encounter Mental Status * Question Answer Entry Date Author Status Because of a physical, mental, or emotional condition, do you have serious difficulty concentrating, remembering, or making decisions? No 02/15/2021 5:41 PM Shruthi Banda RN Active * Because of a physical, mental, or emotional condition, do you have serious difficulty concentrating, remembering, or making decisions? Answer Entry Date Author Status No 02/15/2021 5:41 PM Shruthi Banda RN Active documented in this encounter Plan of Treatment Not on file documented as of this encounter Visit Diagnoses Not on filedocumented in this encounter Care Teams Automatic Fabric Cutter Relationship Specialty Start Date End Date Nabila King MD [address] [place] [address] PCP - General INTERNAL MEDICINE 12/08/20 Regulo Pandey MD [facility]. [facility] [address] [place] [address] Margaret Business Area Director CARDIOVASCULAR DISEASE 03/21/16 documented as of this encounter
--- OUTSIDE RECORDS SUMMARY | 2024-08-09 17:41 | XMS_ITS | Encounter Summary ---
Author Organization [facility] Address [address] [place] [address]. [place] [address] [place] [address] Care Team Providers Care Diamond Powder Technician Name Role Phone Regulo Pandey MD Unavailable Nabila King MD Primary Care Provider [phone] Encounter Details Date Type Department Care Team (Latest Contact Info) Description 01/19/2021 Travel Social History Tobacco Use Types Packs/Day [...] have Coronavirus / COVID-19? No / Unsure 01/19/2021 9:51 AM CDT documented as of this encounter Plan of Treatment Not on file documented as of this encounter Visit Diagnoses Not on filedocumented in this encounter Care Teams Diamond Powder Technician Relationship Specialty Start Date End Date Nabila King MD [address] [place] [address] PCP - General INTERNAL MEDICINE 12/08/20 Regulo Pandey MD [address] [address] [place] Institution Director CARDIOVASCULAR DISEASE 03/21/16 documented as of this encounter
--- OUTSIDE RECORDS SUMMARY | 2024-08-09 17:41 | XMS_ITS | Encounter Summary ---
Author Organization [facility] Address [address] [place] [address]. [place], [place] [address] [place] [address] Care Team Providers Care Visual C Developer Name Role Phone Regulo Pandey MD Unavailable Nabila King MD Primary Care Provider [phone] Encounter Details Date Type Department Care Team (Latest Contact Info) Description 05/10/2021 Travel Social History Tobacco Use Types Packs/Day [...] week 02/15/2021 How often do you attend [facility] or yarsanism services? More than 4 times per year 02/15/2021 Do you belong to any clubs o r organizations such as amish groups, unions, fraternal or athletic groups, or [...] and heating? Not hard at all 02/15/2021 [facility] of Occupat ional Health - Occupational Stress [...] place to sleep or slept in a assisted (including now)? No 02/15/2021 Comments No Sex [...] have Coronavirus / COVID-19? No / Unsure 05/10/2021 9:46 AM CDT documented as of this encounter [...] on filedocumented in this encounter Care Teams Visual C Developer Relationship Specialty Start Date End Date Nabila King MD [address] [place] [address] PCP - General INTERNAL MEDICINE 12/08/20 Regulo Pandey MD [facility]. [address] [address] [place] [address] [place] Metrology Technician CARDIOVASCULAR DISEASE 03/21/16 documented as of this encounter
--- OUTSIDE RECORDS SUMMARY | 2024-08-09 17:41 | XMS_ITS | Encounter Summary ---
Author Organization [facility] Address [address] [place] [address]. [place] [address] [place] [address] Care Team Providers Care Fat Pressroom Worker Name Role Phone Regulo Pandey MD Unavailable Stacy King MD Primary Care Provider [phone] Reason for Visit * Reason Comments Breathing Problem fu on tests Encounter Details Date Type Department Care Team (Late st Contact Info) Description 01/19/2021 10:15 AM CDT Office Visit [facility], [facility] [address] [place], [place] [address] Renetta Dhillon, ANP-BC [facility]. [facility] [address] [place], [place] [id number] Regulo Pandey MD [facility]. [facility] [address] [place], [place] [id number] Breathing Problem (fu on tests) Social History Tobacco Use Types Packs/Day Years [...] have Coronavirus / COVID-19? No / Unsure 01/26/2021 12:46 PM CDT documented as of this encounter Last Filed Vital Signs Vital Sign Reading Time Taken Comments Blood Pressure 128/82 01/19/2021 10:17 AM CDT Pulse 60 01/19/2021 10:17 AM CDT Temperature - - Respiratory Rate - - Oxygen Saturation 99% 01/19/2021 10:17 AM CDT Inhaled Oxygen Concentration - - Weight 54 kg (119 lb) 01/19/2021 10:17 AM CDT Height 160 cm (5' 3 ) 01/19/2021 10:17 AM CDT Body Mass Index 21.08 01/19/2021 10:17 AM CDT documented in this encounter Progress Notes * Regulo Pandey MD - 01/19/2021 10:15 AM CDT I Kate Aiken, acting as scribe, am personally taking down the notes in the presence of Dr. Regulo Pandey. Take no action on this note until reviewed and authenticated by the physician. Chief Complaint Patient presents with ??? Breathing Problem fu on tests HISTORY OF PRESENT ILLNESS Lisa Conn is a 85-year-old female who presents today for cardiac evaluation. Patient states that she is still experincing palpitations. Her episodes with palpitations make her feel bad. The patient walks for her exercise and is still experiencing MITCHELL. These episodes occur intermediately along with palpitations. In the past, patient states that she had glaucoma and had surgery on her eye. She was administered BB eye drops. She did not tolerate them well. Patient states that she believes it caused her blood pressure to drop. She is compliant with home medications. She is tolerating them well. Patient denies chest pain, chest tightness, dizziness, or leg swelling. ASSESSMENT/PLAN 1. Shortness of breath/ Palpitations Frequent palpitations and dizzy episodes. The patient is having palpitations and irregular rhythm every day especially with daily activities like vacuuming. These episodes get so bad the patient has to sit down on the floor. Patient with increasing complaints of shortness of breath. No evidence of heart failure. Etiology is unclear. 2. Nonrheumatic aortic valve insufficiency By exam, this does not appear to be any worse than before. Patient's most recent echo showed The left ventricular size is normal. The left ventricularsystolicfunction is normal. Estimated left ventricular ejection fraction is 55-60%. No concentric left ventricular hypertrophy. Left ventricular diastolic function is abnormal 3. Orthostatic hypotension Mildly symptomatic. 4. Fatigue The patient is having fatigue daily which she believes is related to not sleeping at night. Patient ran out of Lorazepam and notes when she was taking it regularly she slept very well. RECOMMENDATIONS Discussed with patient she needs further cardiac evaluation studies performed. Schedule Event monitor. Will start patient on metoprolol 12.5 mg BID. Patient will call office if she does not tolerate newdose of medication. Otherwise continue current medication regimen. Advised cardiac diet. Advised regular exercise. Follow up in the office in 6 weeks by which time her results will be assessed. DATA REVIEWED ECG from 12/08/20 is overread showing: SINUS BRADYCARDIA 49 bpm POSSIBLE RIGHT VENTRICULAR CONDUCTION DELAY Regular treadmill stress test 05/03/2016: 1. Clinically negative. 2. Electrocardiographically negative treadmill test for ischemia. 3. Excellent exercise capacity. 4. Blood pressure response was normal. 5. Taylor Treadmill Score is 7.0, which indicates low risk. Echocardiogram 04/15/2016: The left ventricular size is normal. The left ventricular systolic function is normal. Estimated left ventricular ejection fraction is 55-60%. Mild aortic regurgitation. Mild tricuspid regurgitation. Medications: Current Outpatient Medications: ??? B Complex Vitamins (VITAMIN B COMPLEX) Tab, Take 1 tablet by mouth daily., Disp: , Rfl: ??? Cholecalciferol (VITAMIN D3) 2000 UNITS Tab, Take 1 tablet by mouth daily., Disp: , Rfl: ??? levothyroxine 50 MCG tablet, Take 1 tablet (50 mcg total) by mouth every morning., Disp: , Rfl: ??? LORazepam (ATIVAN) 0.5 MG tablet, Take 1 tablet (0.5 mg total) by mouth nightly at bedtime., Disp: 7 tablet, Rfl: 0 ??? melatonin 3 MG tablet, Take 1 tablet (3 mg total) by mouth nightly at bedtime., Disp: , Rfl: ??? Misc Natural Products (TURMERIC CURCUMIN) Cap, Take 1 capsule by mouth daily., Disp: , Rfl: Allergies Allergen Reactions ??? Clarithromycin Anaphylaxis and Hives ??? Metronidazole Hives ??? Sulfa Antibiotics Hives ??? 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 Anxiety ??? Hypothyroidism ??? Nonrheumatic aortic (valve) insufficiency No past surgical history on file. Social History Socioeconomic History ??? Marital status: Spouse name: Not on file ??? Number of children: 2 ??? Years of education: Not on file ??? Highest education level: Not on file Occupational History Employer: RETIRED Tobacco Use ??? Smoking status: Never Smoker ??? Smokeless tobacco: Never Used Substance and Sexual Activity ??? Alcohol use: No ??? Drug use: No ??? Sexual activity: Not on file Other Topics Concern ??? Service Not Asked ??? Blood Transfusions Not Asked ??? Caffeine Concern Yes Comment: 1 cup coffee ??? Occupational Exposure Not Asked ??? Hobby Hazards Not Asked ??? Sleep Concern Not Asked ??? Stress Concern Not Asked ??? Weight Concern Not Asked ??? Special Diet No ??? Back Care Not Asked ??? Exercise Yes Comment: daily ??? Bike Helmet Not Asked ??? Seat Belt Not Asked ??? Self-Exams Not Asked ??? Wheelchair Not Asked ??? Walker Not Asked ??? Upper extremity braces/slings Not Asked ??? Lower extermity braces/slings Not Asked ??? Self Care Not Asked Social History Narrative ??? Not on file Social Determinants of Health Financial Resource Strain: ??? Difficulty of Paying Living Expenses: Food Insecurity: ??? Worried About Running Out of Food in the Last Year: ??? Ran Out of Food in the Last Year: Transportation Needs: ??? Lack of Transportation (Medical): ??? Lack of Transportation (Non-Medical): Physical Activity: ??? Days of Exercise per Week: ??? Minutes of Exercise per Session: Stress: ??? Feeling of Stress : Social Connections: ??? Frequency of Communication with Friends and Family: ??? Frequency of Social Gatherings with Friends and Family: ??? Attends Sabianist Services: ??? Active Member of Clubs or Organizations: ??? Attends Club or Organization Meetings: ??? Marital Status: Intimate Partner Violence: ??? Fear of Current or Ex-Partner: ??? Emotionally Abused: ??? Physically Abused: ??? Sexually Abused: No family history on file. Family Status Relation Name Status ??? Mother at age 88 ??? Father at age 89 had pacemaker ??? Sister Alive, age 76y Review of Systems Constitutional: Negative for recent unintentional weight gain, recent unintentional weight loss andnew or significant fatigue. HENT: Negative for headaches. Respiratory: Positive for shortness of breath. Negative for cough. Cardiovascular: Positive for palpitations.Negative for chest pain, orthopnea, claudication, leg swelling and PND. Gastrointestinal: Negative for heartburn. Musculoskeletal: Negative for myalgias and new or worsening joint stiffness/pain. Neurological: Negative for dizziness. Endo/Heme/Allergies: Negative for new or significant bruising/bleeding. Psychiatric/Behavioral: Positive for nervous/anxious. Negative for depression. Filed Vitals: 01/19/21 1017 BP: 128/82 Pulse: 60 SpO2: 99% Weight: 54 kg (119 lb) Height: 5' 3 (1.6 m) Body mass index is 21.08 kg/m??. Cardiac Exam Rate/Rhythm: Regular rhythm. No extrasystoles are present. Bradycardia present. PMI: PMI is not displaced. Pulses: Carotid pulses are 2+ on the right side and 2+ on the left side. Radial pulses are 2+ on the right side and 2+ on the left side. Heart Sounds: Murmurs: Murmur present Systolic murmur is present with a grade of 2/6. Negative for edema. Physical Exam Constitutional: No distress. Healthy Appearance. HENT: Eyes: Conjunctivae normal. Neck: No JVD. No thyromegaly. Abdomen: Abdomen soft. Bowel sounds normal. Pulmonary: Effort normal. Breath sounds normal. Skin: Dry. Warm. No cyanosis. No clubbing. No xanthoma. Musculoskeletal: Neurological: Alert. Oriented x 3. Comments: Diagnoses/Impression: No diagnosis found. Referring Provider: Stacy King MD PCP: STACY KING MD documented in this encounter Plan of Treatment Not on file documented as of this encounter Visit Diagnoses Diagnosis Palpitation- Primary Palpitations ASVD (arteriosclerotic vascular disease) Generalized and unspecified atherosclerosis Nonrheumatic aortic valve insufficiency Aortic valve disorders documented in this encounter Care Teams Fat Pressroom Worker Relationship Specialty Start Date End Date Stacy King MD [address] [place] [address] PCP - General INTERNAL MEDICINE 12/08/20 Regulo Pandey MD [facility]. [facility] [address] [place] [address] Margaret Domestic Cleaner CARDIOVASCULAR DISEASE 03/21/16 documented as of this encounter
--- OUTSIDE RECORDS SUMMARY | 2024-08-09 17:41 | XMS_ITS | Encounter Summary ---
Author Organization [facility] Address [address] [place] [address]. [place] [address] [place] [address] Care Team Providers Care Pen Tender Name Role Phone Regulo Pandey MD Unavailable Nabila King MD Primary Care Provider [phone] Encounter Details Date Type Department Care Team (Latest Contact Info) Description 12/10/2020 Travel Social History Tobacco Use Types Packs/Day [...] or suspected to have Coronavirus / COVID-19? Unable to assess 12/10/2020 11:32 AM CDT documented as of this encounter Plan of Treatment Not on file documented as of this encounter Visit Diagnoses Not on filedocumented in this encounter Care Teams Pen Tender Relationship Specialty Start Date End Date Nabila King MD [address] [place] [id number] PCP - General INTERNAL MEDICINE 12/08/20 Regulo Pandey MD [address] [address] [employer] Teacher CARDIOVASCULAR DISEASE 03/21/16 documented as of this encounter
--- OUTSIDE RECORDS SUMMARY | 2024-08-09 17:41 | XMS_ITS | Encounter Summary ---
Author Organization [facility] Address [address] [place] [address]. [place] [address] [place] [address] Care Team Providers Care Data Transcriber Name Role Phone Regulo Pandey MD Unavailable Nabila King MD Primary Care Provider [phone] Reason for Visit * Reason Onset Date Comments Information 07/22/2021 Encounter Details Date Type Department Care Team (Late st Contact Info) Description 07/22/[address] [place] [facility], [facility] [[email or web address] [address] [place], [place] [id number] Gigi Méndez MD [facility]. [facility] [address] [place] [address] Information Social History Tobacco Use Types Packs/Day Years [...] How often do you attend chur or buddhist services? More than 4 times per year 02/15/2021 Do you belong to any clubs o r organizations such as alevism groups, unions, fraternal or athletic groups, or [...] and heating? Not hard at all 02/15/2021 [facility] - Occupational Stress Questionnaire Answer [...] have Coronavirus / COVID-19? No / Unsure 07/22/2021 11:04 AM [place]ACH documented as of this encounter Functional Status [...] PM ARMANDT Shruthi Crane RN Active * Do you have difficulty dressing or bathing? Answer Date of Assessment Author Status No 02/15/2021 5:41 PM ARMANDT Shruthi Crane RN Active * Because of a physical, mental, or emotional condition, do you have difficulty doing errands alone such as visiting a doctor's office or shopping? Answer Date of Assessment Author Status No 02/15/2021 5:41 PM Shruthi Banda, RN Active documented as of this encounter Mental Status * Because of a physical, mental, or emotional condition, do you have serious difficulty concentrating, remembering, or making decisions? Answer Entry Date Author Status No 02/15/2021 5:41 PM CDT Shrtuhi Crane RN Active documented in this encounter Progress Notes * Mackenzie Vyas Sheth - 07/22/2021 12:47 PM CST Patient saw Marsha PEREZ today. Marsha recommended patient be scheduled for a dual chamber pacemakerwith Dr Pandey. Patient will call to schedule after she has thought it over. GIACH documented in this encounter Plan of Treatment Not on file documented as of this encounter Visit Diagnoses Not on filedocumented in this encounter Care Teams Data Transcriber Relationship Specialty Start Date End Date Nabila King MD [address] [place] [id number] PCP - General INTERNAL MEDICINE 12/08/20 Regulo Pandey MD [facility]. [facility] [address] [facility] [place] [address] [employer] Worker CARDIOVASCULAR DISEASE 03/21/16 documented as of this encounter
--- OUTSIDE RECORDS SUMMARY | 2024-08-09 17:41 | XMS_ITS | Encounter Summary ---
Author Organization [facility] Address [address] [place] [address]. [place], [place] [id number] [place] [id number] Care Team Providers Care Production Artist Name Role Phone Jason Hood MD Primary Care Provider [phone] Regulo Pandey MD Unavailable Reason for Referral * Imaging (Routine) - Closed Specialty Diagnoses / Procedures Referred By Contac t Referred To Contact CARDIOLOGY DIAGNOSTICS Diagnoses Nonrheumatic aortic valve insufficiency Procedures USE ECHOCARDIOGRAM OUS P ECHO XTHOR COM W DOPPLER Conner Madsen ANP-BC [facility]. [address] [place] [address] Phone: tel: fax: [place] [address] Phone: tel: Referral ID Status Reason Start Date Expiration Date Visits Re quested Visits Authorized [id number] Closed 05/22/2018 06/22/2018 1 1 Reason for Visit * Reason Comments Aortic Valve Disorder Two year follow up Encounter Details Date Type Department Care Team (Late st Contact Info) Description 05/22/2018 9:15 AM CDT Office Visit [facility] at [facility], [address] [place], [place] [id number] Conner Madsen ANP-BC [facility]. [address] [place] [address] Aortic Valve Disorder (Two year follow up) Social History Tobacco Use Types Packs/Day Years [...] file Not on file Not on file documented as of this encounter Last Filed Vital Signs Vital Sign Reading Time Taken Comments Blood Pressure 110/70 05/22/2018 9:06 AM CDT Pulse 72 05/22/2018 9:06 AM CDT Temperature - - Respiratory Rate - - Oxygen Saturation 97% 05/22/2018 9:06 AM CDT Inhaled Oxygen Concentration - - Weight 54.9 kg (121 lb) 05/22/2018 9:06 AM CDT Height 160 cm (5' 3 ) 05/22/2018 9:06 AM CDT Body Mass Index 21.43 05/22/2018 9:06 AM CDT documented in this encounter Patient Instructions * Patient Instructions* CHARISSE Hanson - 05/22/2018 9:15 AM CDT Images from the original note were not included. Patient Education Aortic Regurgitation About this topic The heart pumps blood to the body. The blood leaves the heart through a big blood vessel called theaorta. There is a small valve, called the aortic valve, at the opening between the heart and the aorta. This valve keeps the blood from flowing back into the heart. If the valve becomes weak, injured, or does not close all the way, some of the blood flows back into the heart. If the backwards flow happens over time, then part of the heart becomes bigger and stretched. When this happens, the heartdoes not pump as well. Sometimes, the valve is harmed all of a sudden from an infection or injury. What are the causes? ?? Heart valve problems are there at ?? Endocarditis or an infection of the lining of the heart ?? High blood pressure ?? Problems with the aorta like a tear in the wall of the aorta, trauma, or injury to the valve ?? Serious illness or conditions like Marfan syndrome, Gabriella syndrome, ankylosing spondylosis, or lupus ?? Rheumatic fever What can make this more likely to happen? ?? Being male ?? Age 30 to 60 years ?? Having high blood pressure What are the main signs? There may not be any signs until many years after this problem starts. Many of these signs are alsosigns of other conditions. ?? Pulse may feel different. Your pulse may be fast and not regular. It may feel strong and forceful or fluttering. You may feel palpitations or like your heart is racing. ?? Chest pain may be under your chest bone and spread to your left chest and other parts. It may get worse with exercise and better when resting. You may feel like your pain is crushing and squeezing. It may also feel like tightness and pressure. ?? Feeling faint, very tired, or weak, especially when you are active ?? Shortness of breath that is worse when lying down or being active. This may be due to fluid in your lungs. ?? Swelling of the feet, legs, or belly ?? Bottom blood pressure number is low How does the doctor diagnose this health problem? Your doctor will do an exam to check for: ?? Heart murmur ?? Forceful beating heart ?? Strong and forceful pulses in your arms and legs ?? Swelling in your legs and belly ?? Blood pressure changes ?? Signs of fluid in your lungs The doctor may order tests like: ?? Chest x-ray ?? Aortic angiography ?? Echocardiogram ? heart ultrasound ?? Electrocardiogram (ECG) ?? Heart catheterization ?? Transesophageal echocardiogram (THONY) ?? Blood tests to rule out other problems How does the doctor treat this health problem? ?? If you have no signs or only mild signs, the doctor may just order checkups and testing every sooften. ?? If the signs or symptoms are severe, you may need surgery to fix or replace the aortic valve. ?? If there is a problem with the aorta, the blood vessel may need to be fixed. ?? You may need to avoid hard activity. What drugs may be needed? The doctor may order drugs to: ?? Control high blood pressure ?? Help with the swelling What changes to diet are needed? ?? Limit salt intake to lower blood pressure. What problems could happen? ?? Heart failure ?? Fluid in the lungs ?? Infection of the lining of the heart ?? Abnormal heart rhythms ?? What can be done to prevent this health problem? ?? Always get care for strep infections. This can lessen the risk of getting rheumatic fever and aortic insufficiency. ?? If you have high blood pressure, be sure to follow your doctor's instructions on how to lower it. ?? Stay active and keep a healthy weight. Being heavy can put you at risk for high blood pressure. Where can I learn more? [place] [employer] http://www.heart.org/HEARTORG/Conditions/CongenitalHeartDefects/AboutCongenitalH eartDefects/Ekrhkz-Oshyj-Mfudkavu-AVS_[facility]_307020_Article.jsp National Heart, Lung, and Blood Pyrites http://www.nhlbi.nih.gov/health/health-topics/topics/hvd/ Last Reviewed Date 2015-10-23 Consumer Information Use and Disclaimer This information is not specific medical advice and does not replace information you receive from your health care provider. This is only a brief summary of general information. It does NOT include all information about conditions, illnesses, injuries, tests, procedures, treatments, therapies, discharge instructions or life-style choices that may apply to you. You must talk with your health care provider for complete information about your health and treatment options. This information should not be used to decide whether or not to accept your health care provider???s advice, instructions or recommendations. Only your health care provider has the knowledge and training to provide advice that is right for you. Copyright Copyright ?? 2017 [employer] and its affiliates and/or licensors. All rights reserved. documented in this encounter Progress Notes * Denise Bonds CMA - 05/22/2018 9:15 AM CDTAddended by: DENISE BONDS on: 05/22/2018 09:48 AM Modules accepted: Orders * CHARISSE Hanson - 05/22/2018 9:15 AM CDT Chief Complaint Patient presents with ??? Aortic Valve Disorder Two year follow up HISTORY OF PRESENT ILLNESS Escobar Conn is a 82-year-old female who presents today for cardiac evaluation. She was last seen 2 years ago and would like to have her aortic valve rechecked. She has a history of aortic insufficiency. She notes frequent palpitations, described as skipped beats. She always has low blood pressure. She will have near syncopal events occasionally if she stands uptoo quickly. She gets tired easily, especially with vacuuming. She notes epigastric pain associated with belching at night. Denies chest pain with physical activity. ASSESSMENT/PLAN 1. Nonrheumatic aortic valve insufficiency Mild on last evaluation 2 years ago. She does not have a significant murmur. 2. Palpitations Frequent skipped beats, but no sustained palpitations. 3. Orthostatic hypotension Mildly symptomatic. RECOMMENDATIONS -ECHOCARDIOGRAM-to re-evaluate aortic insufficiency. Request labs from primary care office. DATA REVIEWED ECG from today is overread showing: Sinus rhythm, no changes. Final interpretation by the trademark attorney is pending. Regular treadmill stress test 05/03/2016: 1. Clinically negative. 2. Electrocardiographically negative treadmill test for ischemia. 3. Excellent exercise capacity. 4. Blood pressure response was normal. 5. Taylor Treadmill Score is 7.0, which indicates low risk. Echocardiogram 04/15/2016: The left ventricular size is normal. The left ventricular systolic function is normal. Estimated left ventricular ejection fraction is 55-60%. Mild aortic regurgitation. Mild tricuspid regurgitation. No results found for: CHOL, TRI, HDL, LDL, NA, K, CL, CO2, BUN, CR, CA, GLU, AGAP, TP, ALB, ALT, WBC, HGB, PLT, HGBA1C, TSH Medications: Current Outpatient Medications: ??? Ascorbic Acid (VITAMIN C) 100 MG tablet, Take 1 tablet (100 mg total) by mouth daily., Disp: , Rfl: ??? B Complex Vitamins (VITAMIN B COMPLEX) Tab, Take 1 tablet by mouth daily., Disp: , Rfl: ??? Cholecalciferol (VITAMIN D3) 2000 UNITS Tab, Take 1 tablet by mouth daily., Disp: , Rfl: ??? levothyroxine 50 MCG tablet, , Disp: , Rfl: ??? lorazepam (ATIVAN) 0.5 MG tablet, Take 1 tablet (0.5 mg total) by mouth nightly at bedtime., Disp: , Rfl: ??? melatonin 3 MG tablet, Take 1 tablet (3 mg total) by mouth nightly at bedtime., Disp: , Rfl: ??? Misc Natural Products (TURMERIC CURCUMIN) Cap, Take 1 capsule by mouth daily., Disp: , Rfl: Allergies Allergen Reactions ??? Clarithromycin Anaphylaxis ??? Flagyl [Metronidazole] Hives ??? Sulfa Antibiotics Hives Past Medical History: Diagnosis Date ??? Anxiety ??? Hypothyroidism ??? Nonrheumatic aortic (valve) insufficiency No past surgical history on file. Social History Socioeconomic History ??? Marital status: Spouse name: Not on file ??? Number of children: 2 ??? Years of education: Not on file ??? Highest education level: Not on file Social Needs ??? Financial resource strain: Not on file ??? Food insecurity - worry: Not on file ??? Food insecurity - inability: Not on file ??? Transportation needs - medical: Not on file ??? Transportation needs - non-medical: Not on file Occupational History Employer: RETIRED [...] Weight Concern Not Asked ??? Special Diet Not Asked ??? Back Care Not Asked ??? Exercise Yes Comment: daily ??? Bike Helmet Not Asked ??? Seat Belt Not Asked ??? Self-Exams Not Asked Social History Narrative ??? Not on file No family history on file. Family Status Relation Name Status ??? Mother at age 88 ??? Father at age 89 had pacemaker ??? Sister Alive, age 74y Review of Systems Constitutional: Negative for new or significant fatigue. HENT: Negative for headaches. Eyes: Negative for blurred vision. Respiratory: Positive for shortness of breath. Cardiovascular: See HPI Positive for palpitations.Negative for chest pain and leg swelling. Gastrointestinal: Positive for heartburn. Negative for nausea and vomiting. Genitourinary: Negative for dysuria and hematuria. Musculoskeletal: Negative for myalgias and new or worsening joint stiffness/pain. Skin: Negative for rash. Neurological: Negative for dizziness and LOC. Endo/Heme/Allergies: Negative for new or significant bruising/bleeding. Psychiatric/Behavioral: Negative for new or significant memory loss. Filed Vitals: 05/22/18 0906 Weight: 54.9 kg (121 lb) Height: 5' 3 (1.6 m) Body mass index is 21.43 kg/m??. Physical Exam Constitutional: She is oriented to person, place, and time. She appears well- developed and well-nourished. No distress. HENT: Head: Normocephalic and atraumatic. Mouth/Throat: Oropharynx is clear and moist. Eyes: Conjunctivae are normal. Neck: Normal range of motion. Neck supple. No JVD present. Carotid bruit is not present. Cardiovascular: Normal rate, regular rhythm, normal heart sounds and intact distal pulses. PMI is not displaced. Exam reveals no gallop and no friction rub. No murmur heard. Pulses: Carotid pulses are 2+ on the right side, and 2+ on the left side. Dorsalis pedis pulses are 2+ on the right side, and 2+ on the left side. Pulmonary/Chest: Effort normal and breath sounds normal. No accessory muscle usage. Abdominal: Soft. She exhibits no distension, no abdominal bruit and no pulsatile midline mass. There is no hepatomegaly. There is no tenderness. Musculoskeletal: Normal range of motion. She exhibits no edema. Neurological: She is alert and oriented to person, place, and time. Skin: Skin is warm and dry. No rash noted. No cyanosis. Psychiatric: She has a normal mood and affect. Her behavior is normal. Judgment and thought contentnormal. Diagnoses/Impression: 1. Nonrheumatic aortic valve insufficiency ELECTROCARDIOGRAM (NON MIDMARK ACQUIRED) Referring Provider: No ref. provider found PCP: JASON HOOD MD documented in this encounter Plan of Treatment Not on file documented as of this encounter Procedures Procedure Name Priority Date/Time Associated Diagnosis Comments ELECTROCARDIOGRAM (NON MIDMA RK ACQUIRED) Routine 05/22/2018 Nonrheumatic aortic valve insufficiency documented in this encounter Results * USE ECHOCARDIOGRAM (05/28/2018 11:41 AM CDT) Anatomical Region Laterality Modality Cardiac Echocardiogram 05/28/2018 11:0 9 AM CDT Narrative 05/30/2018 3:13 PM CDT ?Echocardiography Report Pat.Name: ??ESCOBAR CONN ? Pat.ID: ?[id number] ? St.Date: ?? 05/28/2018 ? Refer.MD: ??[id number], CONNER MADSEN Exam Time: 11:09:00 AM ? Study Type:ECHO WITH CARDIAC DOPPLER COMP Height: ?63in ?Weight: ?120.75lb ? BSA: ? 1.56 m2 ?Age: ??1935,82Y ? Sex: ? FEMALE ?BP: ?137/60 ? HR: ?48 bpm ?Sonogrphr: Rosie Oliveira RDJACOB ? Pat. Stat.:Outpatient ? Reason for Study:Aortic insufficiency Procedures:2D, M-mode, Doppler, Color Flow Race: ?W ? ++++++++++++++++++++++++++++++++++++ SUMMARY: ++++++++++++++++++++++++++++++++++++ The left ventricular size is normal. The left ventricular systolic function is normal. Estimated left ventricular ejection fraction is 65-70%. Moderate tricuspid regurgitation. Right ventricular systolic pressure is 30-40 mmHg suggestive of mild pulmonary hypertension. Left ventricular diastolic function is abnormal (grade 2 - pseudonormal pattern). There is a small ventricular septal defect located in the basal portion of the septum. The left atrial size is mildly enlarged. Mild to moderate aortic regurgitation. Moderate tricuspid regurgitation. Right ventricular systolic pressure is 30-40 mmHg suggestive of mild pulmonary hypertension. ++++++++++++++++++++++++++++++++++++ FINDINGS: ++++++++++++++++++++++++++++++++++++ LV: ? The left ventricular size is normal. The left ventricular ?systolic ??function is normal. Estimated left ventricular ?ejection ??fraction is 65-70%. No concentric left ventricular ?hypertrophy. ??Left ventricular diastolic function is ?abnormal ??(grade 2 - pseudonormal pattern). RV: ? The right ventricle size is normal. The right ventricular ?function ??is normal. IVS: ?There is a small ventricular septal defect located in the ?basal ??portion of the septum. LA: ? The left atrial size is mildly enlarged. RA: ? Right atrial size is normal. IAS: ?Atrial septum appears intact. JANET: ? No evidence of pericardial effusion. AO: ? Normal aortic root. SVn: ?Systemic veins are normal. AV: ? The aortic valve is trileaflet. No evidence of aortic valve ?stenosis. ??Mild to moderate aortic regurgitation. MV: ? Trace mitral regurgitation. No evidence of mitral stenosis. PV: ? No evidence of pulmonic valve stenosis. No evidence of ?pulmonic ??regurgitation. TV: ? Moderate tricuspid regurgitation. Right ventricular systolic ?pressure ??is 30-40 mmHg suggestive of mild pulmonary ?hypertension. ??No evidence of tricuspid valve stenosis. ++++++++++++++++++++++++++++++++++++ MEASUREMENTS: ++++++++++++++++++++++++++++++++++++ ?DOPPLER LVOT ?? LVOTpkPG ? 4 mmHg ?LVOTmnPG ? 2 mmHg LVOTpkVel ? 99.3 cm/s (70-110) LVOT SV ? 63 ml ?? LVOT TVI ?22.1 cm ? Right Atrium ?? RA Press ? 3 mmHg ? Pulmonary Veins ?? PVnpkVeld ? 47.9 cm/s ?PVnVs/Vd ? 1.1 ? PVnpkVels ? 50.3 cm/s ?PVn A Dur ?127 msec AV Forward Flow AV TVI ?31.7 cm ?AV pkPG ?7 mmHg AV pkVel ? 134 cm/s (100-170) Area (TVI) ?1.98 cm2 ??(3-5)* AV mnPG ?3 mmHg ?Area (Marck) ? 2.1 cm2 ??(3- 5)* AV Regurg Flow AV pkVel ? 538 cm/s ?AV P1/2t ? 597 msec AV pkPG ?116 mmHg ? MV Forward Flow MV DeTm ?204 msec ?MV pkE ?79 cm/s (60-130) MV E/A ? 1.4 ? MV pkA ?55.8 cm/s PV Forward Flow PV pkVel ?56.4 cm/s (60-90)+* PV AC ? 99 msec PV pkPG ?1 mmHg ? TV Regurg Flow TV pkPG ? 29 mmHg ?TV pkVel ? 267 cm/s (30- 70)* Right Ventricle ?? RVsys P ? 32 mmHg ? Lat E' ?? Lat e ? 4.97 cm/s ? Lat E/E' ?? Lat E/e ? 15.9 ? Med E' ?? Med e ? 4.29 cm/s ? Med E/E' ?? Med E/e ? 18.4 ? PV Antegrade Flow Acceleration Sl ?? 498 cm/s2 ? RA VOLUME ?? Atrial Dempsey ? 47 mm ? Atrial Dempsey ? 17 cm2 Atrial Dempsey ?? 46.1 ml ? RV DIM BASAL ?? Distance ?33 mm ? RV DIM LENGTH ?? Distance ?58 mm ? RV DIM MID ?? Distance ?26 mm ?2D Left Ventricle ?? LVIDd ? 4.21 cm ?? (3.6-5.2) LV ESV ?24 ml ?? LVIDs ? 2.45 cm ?? (2.3-3.9) LV ESV ?21 ml ?? LngAxd ?7.26 cm ?LVESV BP ?23 ml ?? LngAxd ?7.24 cm ?LV EF ? 61 % ?? LV EDV ?61 ml ?LV EF ? 69 % ?? LV EDV ?68 ml ?LV EF BP ?64 % ?? LVEDV BP ?64 ml ?LV SV ? 37 ml ?? LngAxs ?6.58 cm ?LV SV ? 47 ml ?? LngAxs ? 6.3 cm ?LV SV BP ?41 ml ?? LVPW ?? LVPWd ?0.895 cm ? Ventricular Septum ?? IVSd ? 0.725 cm ? Left Atrium ?? LA VOLBP ?55 ml ? LVOT ?? LVOT ? 1.9 cm ?LVOTArea ?2.84 cm2 Ratios ?? IVS LA Biplane LAVol I BP ?35.3 ml/m2 ?MMODE Ratios ?? LA/Ao ? 1.36 ?(0.87-1.1)* Aorta ?? Ao Rt ?2.5 cm ?? (zsc 0) Left Atrium ?? LAIDs ?3.4 cm ? Signed 05/30/2018 03:13 PM Regulo Pandey M.D. Procedure Note Regulo Pandey MD - 05/30/2018 Echocardiography Report Pat.Name: ESCOBAR CONN Jennifer Pat.ID: [id number] .Date: 05/28/2018 Refer.MD: [id number], CONNER MADSEN Exam Time: 11:09:00 AM Study Type:ECHO WITH CARDIAC DOPPLER COMP Height: 63in Weight: 120.75lb BSA: 1.56 m2 Age: 3 1935,82Y Sex: FEMALE BP: 137/60 HR: 48 bpm Sonogrphr: Rosie Oliveira [facility] Pat. Stat.:Outpatient Reason for Study:Aortic insufficiency Procedures:2D, M-mode, Doppler, Color Flow Race: W ++++++++++++++++++++++++++++++++++++ SUMMARY: ++++++++++++++++++++++++++++++++++++ The left ventricular size is normal. The left ventricular systolic function is normal. Estimated left ventricular ejection fraction is 65-70%. Moderate tricuspid regurgitation. Right ventricular systolic pressure is 30-40 mmHg suggestive of mild pulmonary hypertension. Left ventricular diastolic function is abnormal (grade 2 - pseudonormal pattern). There is a small ventricular septal defect located in the basal portion of the septum. The left atrial size is mildly enlarged. Mild to moderate aortic regurgitation. Moderate tricuspid regurgitation. Right ventricular systolic pressure is 30-40 mmHg suggestive of mild pulmonary hypertension. ++++++++++++++++++++++++++++++++++++ FINDINGS: ++++++++++++++++++++++++++++++++++++ LV: The left ventricular size is normal. The left ventricular systolic function is normal. Estimated left ventricular ejection fraction is 65-70%. No concentric left ventricular hypertrophy. Left ventricular diastolic function is abnormal (grade 2 - pseudonormal pattern). RV: The right ventricle size is normal. The right ventricular function is normal. IVS: There is a small ventricular septal defect located in the basal portion of the septum. LA: The left atrial size is mildly enlarged. RA: Right atrial size is normal. IAS: Atrial septum appears intact. JANET: No evidence of pericardial effusion. AO: Normal aortic root. SVn: Systemic veins are normal. AV: The aortic valve is trileaflet. No evidence of aortic valve stenosis. Mild to moderate aortic regurgitation. MV: Trace mitral regurgitation. No evidence of mitral stenosis. PV: No evidence of pulmonic valve stenosis. No evidence of pulmonic regurgitation. TV: Moderate tricuspid regurgitation. Right ventricular systolic pressure is 30-40 mmHg suggestive of mild pulmonary hypertension. No evidence of tricuspid valve stenosis. ++++++++++++++++++++++++++++++++++++ MEASUREMENTS: ++++++++++++++++++++++++++++++++++++ DOPPLER LVOT LVOTpkPG 4 mmHg LVOTmnPG 2 mmHg LVOTpkVel 99.3 cm/s (70-110) LVOT SV 63 ml LVOT TVI 22.1 cm Right Atrium RA Press 3 mmHg Pulmonary Veins PVnpkVeld 47.9 cm/s PVnVs/Vd 1.1 PVnpkVels 50.3 cm/s PVn A Dur 127 msec AV Forward Flow AV TVI 31.7 cm AV pkPG 7 mmHg AV pkVel 134 cm/s (100-170) Area (TVI) 1.98 cm2 (3-5)* AV mnPG 3 mmHg Area (Marck) 2.1 cm2 (3-5)* AV Regurg Flow AV pkVel 538 cm/s AV P1/2t 597 msec AV pkPG 116 mmHg MV Forward Flow MV DeTm 204 msec MV pkE 79 cm/s (60-130) MV E/A 1.4 MV pkA 55.8 cm/s PV Forward Flow PV pkVel 56.4 cm/s (60-90)+* PV AC 99 msec PV pkPG 1 mmHg TV Regurg Flow TV pkPG 29 mmHg TV pkVel 267 cm/s (30-70)* Right Ventricle RVsys P 32 mmHg Lat E' Lat e 4.97 cm/s Lat E/E' Lat E/e 15.9 Med E' Med e 4.29 cm/s Med E/E' Med E/e 18.4 PV Antegrade Flow Acceleration Sl 498 cm/s2 RA VOLUME Atrial Dempsey 47 mm Atrial Dempsey 17 cm2 Atrial Dempsey 46.1 ml RV DIM BASAL Distance 33 mm RV DIM LENGTH Distance 58 mm RV DIM MID Distance 26 mm 2D Left Ventricle LVIDd 4.21 cm (3.6-5.2) LV ESV 24 ml LVIDs 2.45 cm (2.3-3.9) LV ESV 21 ml LngAxd 7.26 cm LVESV BP 23 ml LngAxd 7.24 cm LV EF 61 % LV EDV 61 ml LV EF 69 % LV EDV 68 ml LV EF BP 64 % LVEDV BP 64 ml LV SV 37 ml LngAxs 6.58 cm LV SV 47 ml LngAxs 6.3 cm LV SV BP 41 ml LVPW LVPWd 0.895 cm Ventricular Septum IVSd 0.725 cm Left Atrium LA VOLBP 55 ml LVOT LVOT 1.9 cm LVOTArea 2.84 cm2 Ratios IVS LA Biplane LAVol I BP 35.3 ml/m2 MMODE Ratios LA/Ao 1.36 (0.87-1.1)* Aorta Ao Rt 2.5 cm (zsc 0) Left Atrium LAIDs 3.4 cm Signed 05/30/2018 03:13 PM Regulo Pandey M.D. us Conner Madsen ANP-BC ECHO Final Resu lt * ELECTROCARDIOGRAM (05/22/2018) us Conner Madsen ANP-BC PROCEDURES-ORDERABLE NO CH ARGE Final Result documented in this encounter Visit Diagnoses Diagnosis Nonrheumatic aortic valve insufficiency- Primary Aortic valve disorders Nonrheumatic aortic valve insufficiency Aortic valve disorders documented in this encounter Care Teams Production Artist Relationship Specialty Start Date End Date Jason Hood MD [address] [place] [id number] PCP - General FAMILY PRACTICE 03/21/16 12/07/20 Regulo Pandey MD [facility] [address] [place] [address] [place] [employer] CARDIOVASCULAR DISEASE 03/21/16 documented as of this encounter
--- OUTSIDE RECORDS SUMMARY | 2024-08-09 17:41 | XMS_ITS | Encounter Summary ---
Author Organization [facility] Address [address] [place] [address]. [place] [address] [place] [address] Care Team Providers Care Crm Administrator Name Role Phone Regulo Pandey MD Unavailable Nabila King MD Primary Care Provider [phone] Reason for Referral * Imaging (Routine) - Closed Specialty Diagnoses / Procedures Referred By Contac t Referred To Contact Diagnoses Palpitation Paroxysmal atrial fibrillation ([facility]) Procedures CLINIC - HOLTER MONITOR - ECG UP TO 48 HRS,COMPLETE Wen Nelson MD [facility]. [facility] [address] [place] [address] Phone: tel: fax: Wen Nelson MD [facility]. [facility] [address] [place] [address] Phone: tel: fax: Referral ID Status Reason Start Date Expiration Date Visits Re quested Visits Authorized [id number] Closed 03/16/2021 04/16/2022 1 1 Reason for Visit * Reason Comments Supraventricular Tachycardia ablation fo llow up Encounter Details Date Type Department Care Team (Late st Contact Info) Description 03/16/2021 9:30 AM CDT Office Visit [facility] [address] [place] [address] Wen Nelson MD [id number] [place] [address] Supraventricular Tachycardia (ablation follow up) Social History Tobacco Use Types [...] often do you attend chur ch or jew services? More than 4 times per year 02/15/2021 Do you belong to any clubs o r organizations such as temple groups, unions, fraternal or athletic groups, or [...] and heating? Not hard at all 02/15/2021 [facility] Occupat ional Health - Occupational Stress [...] place to sleep or slept in a jail (including now)? No 02/15/2021 Comments No Sex [...] have Coronavirus / COVID-19? No / Unsure 03/16/2021 9:20 AM CDT documented as of this encounter Last Filed Vital Signs Vital Sign Reading Time Taken Comments Blood Pressure 118/70 03/16/2021 9:30 AM CDT Pulse 67 03/16/2021 9:30 AM CDT Temperature - - Respiratory Rate - - Oxygen Saturation 95% 03/16/2021 9:30 AM CDT Inhaled Oxygen Concentration - - Weight 53.5 kg (118 lb) 03/16/2021 9:30 AM CDT Height 160 cm (5' 3 ) 03/16/2021 9:30 AM CDT Body Mass Index 20.9 03/16/2021 9:30 AM CDT documented in this encounter Functional Status * RETIRED Are [...] Crane RN Active documented in this encounter Patient Instructions * Patient Instructions* Mackenzie Sheth - 03/16/2021 9:30 AM CDT Images from the original note were not included. Patient Education Patient Education Supraventricular Tachycardia (SVT) The Basics Written by the doctors and editors at [facility] What is supraventricular tachycardia (SVT)???--??Supraventricular tachycardia, also called SVT, is a heartbeat that is faster than normal. It usually starts and stops suddenly, without warning. SVTis also called paroxysmal supraventricular tachycardia or PSVT. (Paroxysmal means a sudden attack.) SVT happens because of a problem with the heart's electrical system. It starts in the upper chambers of the heart, called the atria (figure 1). The fast heartbeat can last from a few minutes to hours, but usually lasts for 10 to 15 minutes. It often happens when you are at rest. But in some people, exercise triggers it. The 3 main types of SVT are called: ?? Atrioventricular zac reentry tachycardia (AVNRT) ?? Atrioventricular reentry tachycardia (AVRT) ?? Atrial tachycardia What are the symptoms of SVT???--??You might not have symptoms. But you might feel that your heart is beating too fast, beating hard, or seems to skip a beat. These kinds of heartbeat changes are called palpitations. You might also feel: ?? Lightheaded ?? Dizzy ?? Very tired If you also have coronary heart disease, you might also: ?? Have trouble breathing ?? Feel a tightness in your chest Should I see a doctor or nurse???--??If you have trouble breathing or have chest pain that lasts for more than a few minutes, call for an ambulance (in the [place] and [place], dial [phone]). If you do not have these problems, but you often feel your heart beating fast or irregularly, talk to your doctor or nurse. Is there a test for supraventricular tachycardia???--??Yes. Your doctor or nurse will do a test called an electrocardiogram, also known as an ECG. This test measures the electrical activity in yourheart (figure 2). Other possible tests include various types of longer-term heart monitoring. This can be done using one of several devices. ?? Holter monitor - This is a small, portable machine you wear that records all your heart's electrical activity over 1 or 2 days (figure 3). ?? Event or loop monitor - These are similar to Holter monitors but smaller, because they don't record all the time. Instead, you start the monitor when you feel symptoms (figure 4). Your doctor willlikely have you wear this type of monitor every day for about a month. ?? Patch monitor - This is a newer type of monitor. It goes directly on the skin, without wires, and can be worn for up to 14 days. You wear it all the time while you go about your usual activities. How is supraventricular tachycardia treated???--??The treatment depends on the cause of the tachycardia. When your heartbeat is very fast, your doctor might suggest ways to slow it down. They might have you cough, or bear down as if you're having a bowel movement. Doing these things can affect the nerve that helps control your heartbeat. Other treatments can include: ?? Medicines to control the speed or rhythm of your heartbeat ?? A treatment called cardioversion - This involves applying a mild electrical current to the heart to fix its rhythm. ?? Treatments called ablation - These treatments destroy the small part of the heart that is sending the abnormal electrical signals. They can use heat (called radiofrequency ablation ) or cold (called cryoablation ) to do this. All topics are updated as new evidence becomes available and our peer review process is complete. This topic retrieved from [employer] on: Oct 20, 2020. Topic 79542 Version 8.0 Release: 29.1.3 - C29.60 ?2020??[employer] and/or its affiliates.??All rights reserved. figure 1: Normal heart This is a drawing of a normal heart. The heart has 4 chambers: right atrium, left atrium, right ventricle, and left ventricle. Blood flows from the right atrium to the right ventricle through the tricuspid valve. Blood flows from the left atrium to the left ventricle through the mitral valve. Graphic 97794 Version 3.0 figure 2: Person having an ECG This drawing shows a man having an ECG (also called an electrocardiogram or EKG). He has patches, called electrodes, stuck onto his chest, arms, and legs. Wires run from the electrodes to the ECG machine. An ECG measures the electrical activity in the heart. Graphic 23960 Version 2.0 figure 3: Holter monitor People with possible heart problems are sometimes asked to wear a device called a Holter monitor for 1 or 2 days. The device measures the electrical activity in the heart. It helps doctors pinpoint heart rhythm problems. You will have electrodes stuck to your chest that are connected to wires leading to the monitor. These electrodes tell the monitor how often your heart beats and if it has a normal rhythm. While you have a Holter monitor on, you should do your normal activities but keep the electrodes, wires, and device dry. Some people have an abnormal heart rhythm only during certain activities or certain times of the day. Graphic 61700 Version 8.0 figure 4: Cardiac event recorder An event recorder is a portable device patients can use to measure their heart rhythm for a short time. The patient must activate the recorder and hold it to the chest when they feel symptoms. It is useful for patients that have intermittent symptoms that may not be captured with other forms of testing. Graphic 71747 Version 4.0 Consumer Information Use and Disclaimer This information [...] or not to accept your health care provider's advice, instructions or recommendations. Only your health care provider has the knowledge and training to provide advice that is right for you.The use of [employer] content is governed by the [employer] Terms of Use. ??2020 [employer]. All rights reserved. Copyright ?2020??[employer]. and/or its affiliates.??All rights reserved. documented in this encounter Progress Notes * Wen Nelson MD - 03/16/2021 9:30 AM CDT Images from the original note were not included. [place], [place] [address] Cardiac Electrophysiology Outpatient Progress Note Patient name: Escobar Conn Primary Geophysical Prospecting Surveyor: Regulo Pandey MD Primary Care Provider: NABILA KING MD Chief Complaint: Follow up after ablation History of Present Illness/Interval History Escobar Conn is a 85-year-old female with a history of hypothyroidism, aortic valve insufficiency, SVT here for follow up of SVT. She underwent an ablation procedure on 02/15/21. During this procedure she had an observation of a focal atrial tachycardia which mapped on the right atrium to the mid septum. Additionally there was an observation of typical atrial flutter. Right atrial ablation of both of these arrhythmias was performed but there was also frequent AF induced which required several cardioversion and amiodarone. Given these findings she was initiated on anticoagulation after her procedure. She initially had a lot of bruising and felt drained on the higher dose of eliquis and her dose was reduced to 2.5 mg bid (age,weight reduction). She has felt better on this dose. She does still have palpitations about 1-2 times per day where her heart rate gets into the 130 range, but she is feeling 70% better than before her ablation procedure. She has no light headedness or presyncope. She has no chest pain. Assessment and Plan Mrs. Conn is a 85-year-old female here today for follow up evaluation of SVT after her ablation. 1. Focal atrial tachycardia/atrial flutter: She seems to be doing better from this regard but stillhas occasional daily breakthrough symptoms. I suspect this may be her PAF. We will plan additional monitoring with a holter to see what is causing her symptoms. If it is PAF, we did discuss the possibility of a pulmonary vein isolation procedure in the future vs antiarrhythmic drug therapy. She didnot tolerate beta blockers in the past. 2. PAF: Remains on apixaban 2.5 mg bid (age,weight reduction). She is tolerating this well. Monitorburden as above with Holter. She will consider her options going forward if symptoms continue. Theyhave improved as time has progressed since her procedure. 3. Hypothyroidism: On replacement therapy History Review of Systems Constitutional: Negative. HENT: Negative. Eyes: Negative. Blood shot eyes Respiratory: Negative. Cardiovascular: Negative. Gastrointestinal: Negative. Genitourinary: Negative. Musculoskeletal: Negative. Skin: Negative. Neurological: Negative. Endo/Heme/Allergies: Negative. Psychiatric/Behavioral: Negative. Current Problems: Patient Active Problem List Diagnosis ??? Shortness of breath ??? Nonrheumatic aortic valve insufficiency ??? Acute on chronic diastolic heart failure (CMS/HCC) ??? Mitral valve disease ??? Palpitation ??? Pseudophakia ??? Ventricular septal defect (VSD) ??? ASVD (arteriosclerotic vascular disease) Past Medical History: Past Medical History: Diagnosis Date ??? Anxiety ??? Hypothyroidism ??? Nonrheumatic aortic (valve) insufficiency Past Surgical History: No past surgical history on file. Social History: Social History Tobacco Use ??? Smoking status: Never Smoker ??? Smokeless tobacco: Never Used Substance Use Topics ??? Alcohol use: No ??? Drug use: No Family History:No family history on file. Allergies: Allergies Allergen Reactions ??? Clarithromycin Anaphylaxis and Hives ??? Metronidazole Hives ??? Sulfa Antibiotics Hives ??? Chloramphenicol Other (see comment) Damaged liver and wiped out white blood cells Current Medications: Patient's Medications New Prescriptions No medications on file Previous Medications APIXABAN 2.5 MG TABLET Take 1 tablet (2.5 mg total) by mouth 2 (two) times daily. B COMPLEX VITAMINS (VITAMIN B COMPLEX) TAB Take 1 tablet by mouth daily. CHOLECALCIFEROL (VITAMIN D3) 2000 UNITS TAB Take 1 tablet by mouth daily. LEVOTHYROXINE 50 MCG TABLET Take 1 tablet (50 mcg total) by mouth every morning. LORAZEPAM (ATIVAN) 0.5 MG TABLET Take 1 tablet (0.5 mg total) by mouth nightly at bedtime. MELATONIN 3 MG TABLET Take 1 tablet (3 mg total) by mouth nightly at bedtime. MISC NATURAL PRODUCTS (TURMERIC CURCUMIN) CAP Take 1 capsule by mouth daily. Modified Medications No medications on file Discontinued Medications No medications on file Physical Exam Filed Vitals: 03/16/21 0930 BP: 118/70 Pulse: 67 SpO2: 95% Weight: 53.5 kg (118 lb) Height: 5' 3 (1.6 m) Physical Exam: In general, Mrs. Conn sitting in a chair in no acute distress. Appears stated age. Mucous membranes moist. No oropharyngeal exudates. Sclera anicteric. Neck is supple. Normal carotid upstroke. No carotid bruits. JVP is not elevated at 90 degrees. Cardiac exam reveals a regular rate and rhythm. Normal S1 and S2 without murmurs, rubs, gallops. Radial pulses are 2+. Lungs clear to auscultation bilaterally without wheezes, rales, or rhonchi. Abdomen is soft, nontender, and non distended with normoactive bowel sounds. There is no guarding or rebound tenderness. No abdominal bruit.There are no skin lesions or significant ecchymosis. No lower extremity edema. Her mood is normal with a normal affect andshe is alert and oriented x 3. Relevant Data Reviewed: Labs: Lab Results Component Value Date/Time NA 139 02/15/2021 10:12 AM K 4.2 02/15/2021 10:12 AM CR 0.77 02/15/2021 10:12 AM HGB 14.2 02/15/2021 10:12 AM HCT 43.5 02/15/2021 10:12 AM PLT 229 02/15/2021 10:12 AM WBC 6.2 02/15/2021 10:12 AM INR 1.0 02/15/2021 10:12 AM Echo: The left ventricular size is normal. The left ventricular systolic function is normal. Estimated left ventricular ejection fraction is 55-60%. Left ventricular diastolic function is abnormal (grade 2 - pseudonormal pattern). The right ventricle size is normal. The left atrial volume is normal ( less than 34 ml/M2). Right atrial size is mildly enlarged. The aortic valve is trileaflet. Moderate aortic regurgitation. Trace mitral regurgitation. There is mild prolapse of both mitral valve leaflet(s). Moderate to severe tricuspid regurgitation. Right ventricular systolic pressure is 30-40 mmHg suggestive of mild pulmonary hypertension. EKG: SB, RV conduction delay Other Imaging: CT calcium score: Total Score: 0 No plaque, very low risk, very unlikely for probability of significant CAD Wen Nelson MD [facility] Cardiac Electrophysiology ; ext. [phone] Pager: [phone] :23 AM documented in this encounter Plan of Treatment Not on file documented as of this encounter Procedures Procedure Name Priority Date/Time Associated Diagnosis Comments ELECTROCARDIOGRAM (NON MIDMARK ACQUIRED) Routine 03/16/2021 9:35 AM CDT SVT (supraventricular tachycardia) documented in this encounter Results * CLINIC - HOLTER MONITOR - ECG UP TO 48 HRS,COMPLETE (03/23/2021 3:50 PM CDT) Nurys ALLAN - 03/23/2021 3:50 PM CDT Wen Nelson MD ? 03/26/2021 12:57 PM [place], [place] ??[id number] HOLTER MONITOR REPORT Patient Name: ??Escobar Conn : 1935 [employer] Date: 03/22/2021 ??@ 9:02 AM Performed At: ??[facility] [place], [place] Interpreting Geophysical Prospecting Surveyor: ?? Wen Nelson MD PCP: ??NABILA KING MD Ordering Provider: WEN NELSON MD INDICATION: Palpitations DURATION OF MONITORING: ??24 hours, 09 minutes BASELINE RHYTHM: ??Sinus rhythm HEART RATE: ??Minimum: 40 BPM, Maximum: ??172 BPM, Average: ??59 BPM PAUSES: ??0 (> 2.0 seconds) INTERPRETATION: A 24hrs Holter was analyzed which did include a symptom diary. There were 30975 QRS complexes analyzed. The baseline rhythm was sinus rhythm. There were rare isolated premature ventricular contractions (<1%). This included rare ventricular couplets. There was also a modest burden of isolated premature atrial contractions (3.2%). ??There were occasional supraventricular couplets and 9 supraventricular runs observed. None of these runs were sustained and the longest was at 26 beats in duration. There was 952 minutes of bradycardia recorded. There was 0 minutes of tachycardia. Symptoms of palpitations and heavy chest did correlate with sinus rhythm with isolated premature atrial complexes. There was one episode of palpitations and tight chest which correlated with a non sustained supraventricular run lasting 26 beats at 137 bpm. CONCLUSION: 24hrs Holter with at least one symptom episode correlating with a non sustained supraventricular run. Other symptom episodes correlated with isolated premature atrial complexes. No atrial fibrillation or flutter observed. Interpreting Geophysical Prospecting Surveyor: ?? Dr. Wen Nelson us Wen Nelson MD CV VASCULAR ORDERABLES Cate l Result [facility] * ELECTROCARDIOGRAM (03/16/2021 9:35 AM CDT) 03/16/2021 9:35 AM CDT Narrative [facility] - 03/17/2021 12:50 PM CDT ?[facility], [facility]? [facility] ? Test Date: ?2021-03-16 Pat Name: ? ESCOBAR CONN ? Department: ? Room: ? Gender: ? Female ? Air Intelligence Specialist: ?? : ?1935 ? Requested By: WEN NELSON Order Number: [id number] ?Reading : ?? Wen Nelson ? Measurements Intervals ?[place] ? Rate: ? 57 ? P: ?47 WY: ? 170 ?QRS: ?40 QRSD: ? 93 ? T: ?46 QT: ? 414 ? QTc: ?405 ? Interpretive Statements SINUS BRADYCARDIA POSSIBLE RIGHT VENTRICULAR CONDUCTION DELAY Procedure Note Wen Nelson MD - 03/17/2021 [facility], [facility]? [facility] Test Date: 2021-03-16 Pat Name: ESCOBAR CONN Department: Room: Gender: Female Air Intelligence Specialist: : 1935 Requested By: WEN NELSON Order Number: [id number] Gregory HAMMOND: Wen Nelson Measurements Intervals [place] Rate: 57 P: 47 WY: 170 QRS: 40 QRSD: 93 T: 46 QT: 414 QTc: 405 Interpretive Statements SINUS BRADYCARDIA POSSIBLE RIGHT VENTRICULAR CONDUCTION DELAY us Wen Nelson MD PROCEDURES-ORDERABLE NO FERMIN RGE Final Result [facility] documented in this encounter Visit Diagnoses Diagnosis SVT (supraventricular tachycardia) ([facility])- Primary Other specified cardiac dysrhythmias Palpitation Palpitations Paroxysmal atrial fibrillation ([facility]) Atrial fibrillation History of radiofrequency ablation (RFA) for complex right atrial arrhythmia documented in this encounter Care Teams Crm Administrator Relationship Specialty Start Date End Date Nabila King MD [address] [place] [address], [place] [address] PCP - General INTERNAL MEDICINE 12/08/20 Regulo Pandey MD [facility]. [facility] [address] [place] [address] [place] Geophysical Prospecting Surveyor CARDIOVASCULAR DISEASE 03/21/16 documented as of this encounter
--- OUTSIDE RECORDS SUMMARY | 2024-08-09 17:41 | XMS_ITS | Encounter Summary ---
Author Organization [facility] Address [address] [place] [address]. [place] [address] [place] [address] Care Team Providers Care Kennel Assistant Name Role Phone Regulo Pandey MD Unavailable Stacy King MD Primary Care Provider [phone] Reason for Referral * Imaging (Routine) - Closed Specialty Diagnoses / Procedures Referred By Contac t Referred To Contact RADIOLOGY Diagnoses Screening for AAA (abdominal aortic aneurysm) Procedures USV AAA SCREENING Regulo Pandey MD [address] [address] Phone: tel: fax: Referral ID Status Reason Start Date Expiration Date Visits Re quested Visits Authorized [id number] Closed 12/08/2020 01/08/2022 1 1 Reason for Visit * Imaging (Routine) - Closed Specialty Diagnoses / Procedures Referred By John bojorquez Referred To Contact RADIOLOGY Diagnoses Screening for AAA (abdominal aortic aneurysm) Procedures USV AAA SCREENING Regulo Pandey MD [facility]. [address] [address] Phone: tel: fax: Referral ID Status Reason Start Date Expiration Date Visits Re quested Visits Authorized [id number] Closed 12/08/2020 01/08/2022 1 1 Encounter Details Date Type Department Care Team (Late st Contact Info) Description 12/25/2020 9:53 AM CDT - 12/25/2020 11:59 PM CDT Hospital Encounter [facility] [address] [place] [address] Regulo Pandey MD [address] [place] [address] Discharge Disposition: Home or Self Care (Routine [...] have Coronavirus / COVID-19? No / Unsure 12/25/2020 9:50 AM CDT documented as of this encounter Medications at Time of Discharge [...] total) by mouth nightly at bedtime. 04/05/2016 Ascorbic Acid (VITAMIN C) 100 MG tablet Take 1 tablet (100 mg total) by mouth daily. 04/05/2016 1 LORazepam (ATIVAN) 0.5 MG tabletIndication s:Insomnia Take 1 tablet (0.5 mg total) by mouth nightly at bedtime. 7 tablet 12/08/2020 1 Misc Natural Products (TURMERIC CURCUMIN) Cap Take 1 capsule by mouth daily. 04/05/2016 1 documented as of this encounter Plan of Treatment Not on file documented as of this encounter Procedures Procedure Name Priority Date/Time Associated Diagnosis Comments USV AAA SCREENING Routine 12/25/2020 10: 22 AM CDT Screening for AAA (abdominal aortic aneurysm) documented in this encounter Results * USV AAA SCREENING (12/25/2020 10:22 AM CDT) Anatomical Region Laterality Modality NA Vascular Ultraso und 12/25/2020 9:59 AM CDT Narrative 12/29/2020 3:16 PM CDT ?AORTA ILIAC DUPLEX ? VASCULAR LAB Pat.Name: ??LISA CONN ? Pat.ID: ?[id number] ? St.Date: ?? 12/25/2020 ?Refer.MD: ??STACY KING ? Exam Time: 9:59:00 AM ? Study Type:GISSELL VS Aorta IVC Iliac Duplex Uni Height: ?63in ?Age: ??1935,85Y ? Sex: ? FEMALE ?Sonogrphr: Celeste Conn, RVT ? Pat. Stat.:Outpatient ? History / Clinical:AAA Screening, aortic insufficiency. No significant past medical history Procedures: Ramírez scale, Color Doppler imaging, Doppler Spectral Analysis Race: ?W ? ++++++++++++++++++++++++++++++++++++ SUMMARY: ++++++++++++++++++++++++++++++++++++ AAA SCREENING EXAM: Maximum aorta diameter is 1.2 cm. ??No plaque is noted. ?? CONCLUSION: ??No abdominal aorta aneurysm present. Recommend follow up prn unless clinically indicated. ++++++++++++++++++++++++++++++++++++ FINDINGS: ++++++++++++++++++++++++++++++++++++ ++++++++++++++++++++++++++++++++++++ MEASUREMENTS: ++++++++++++++++++++++++++++++++++++ ?DOPPLER Juxta AO ?? Juxta AO Dim 2 ?? 1.5 cm ? Dist AO ?? Dist AO PSV ? 85 cm/s ?Dist AO Dim 2 ?? 1.22 cm ?? Rt Prox Internal Iliac ?? Internal Iliac ?? 0.85 cm ? Lt Prox Internal Iliac ?? Internal Iliac ?? 0.88 cm ? Signed 12/29/2020 03:16 PM Jonathon Michaud M.D. Procedure Note Jonathon Michaud MD - 12/29/2020 AORTA ILIAC DUPLEX VASCULAR LAB Pat.Name: LISA CONN Pat.ID: [id number] .Date: 12/25/2020 Refer.MD: STACY KING Exam Time: 9:59:00 AM Study Type:GISSELL VS Aorta IVC Iliac Duplex Uni Height: 63in Age: 3 1935,85Y Sex: FEMALE Sonogrphr: Celeste Conn, RVT Pat. Stat.:Outpatient History / Clinical:AAA Screening, aortic insufficiency. No significant past medical history Procedures: Ramírez scale, Color Doppler imaging, Doppler Spectral Analysis Race: W ++++++++++++++++++++++++++++++++++++ SUMMARY: ++++++++++++++++++++++++++++++++++++ AAA SCREENING EXAM: Maximum aorta diameter is 1.2 cm. No plaque is noted. CONCLUSION: No abdominal aorta aneurysm present. Recommend follow up prn unless clinically indicated. ++++++++++++++++++++++++++++++++++++ FINDINGS: ++++++++++++++++++++++++++++++++++++ ++++++++++++++++++++++++++++++++++++ MEASUREMENTS: ++++++++++++++++++++++++++++++++++++ DOPPLER Juxta AO Juxta AO Dim 2 1.5 cm Dist AO Dist AO PSV 85 cm/s Dist AO Dim 2 1.22 cm Rt Prox Internal Iliac Internal Iliac 0.85 cm Lt Prox Internal Iliac Internal Iliac 0.88 cm Signed 12/29/2020 03:16 PM Jonathon Michaud, M.D. us Regulo Pandey MD [facility] Final Result documented in this encounter Visit Diagnoses Diagnosis Screening for AAA (abdominal aortic aneurysm) Screening for other and unspecified cardiovascular conditions documented in this encounter Care Teams Kennel Assistant Relationship Specialty Start Date End Date Stacy King MD [address] [place] [address] PCP - General INTERNAL MEDICINE 12/08/20 Regulo Pandey MD [facility]. [facility] [address] [place] [address] [place] Plasma Cutting Machine Operator CARDIOVASCULAR DISEASE 03/21/16 documented as of this encounter
--- OUTSIDE RECORDS SUMMARY | 2024-08-09 17:41 | XMS_ITS | Encounter Summary ---
Author Organization [facility] Address [address] [place] [address]. [place], [place] [address] [place] [address] Care Team Providers Care Cranberry Farm Supervisor Name Role Phone Regulo Pandey MD Unavailable Nabila King MD Primary Care Provider [phone] Encounter Details Date Type Department Care Team (Latest Contact Info) Description 06/10/2024 Travel Social History Tobacco Use Types Packs/Day [...] week 02/15/2021 How often do you attend [facility] or jew services? More than 4 times per year 02/15/2021 Do you belong to any clubs o r organizations such as bahai groups, unions, fraternal or athletic groups, or [...] and heating? Not hard at all 02/15/2021 [facility] - Occupational [...] place to sleep or slept in a chcf (including now)? No 02/15/2021 Comments No Sex and Gender Information Value Date Recorded Sex Assigned at Not on file Legal Sex Female 5:00 PM CDT Gender Identity Not on file Sexual Orientation Not on file Occupation Industry Job Start Date Job End Date Not on file Not on file Not on file Not on file documented as of this encounter Functional Status [...] on filedocumented in this encounter Care Teams Cranberry Farm Supervisor Relationship Specialty Start Date End Date Nabila King MD [address] [address] PCP - General INTERNAL MEDICINE 12/08/20 Regulo Pandey MD Three [facility]. [id number] [place] [address] [place] Polisher And Buffer CARDIOVASCULAR DISEASE 03/21/16 documented as of this encounter
--- OUTSIDE RECORDS SUMMARY | 2024-08-09 17:41 | XMS_ITS | Encounter Summary ---
Author Organization [facility] Address [address] [place] [address]. [place], [place] [address] [place] [address] Care Team Providers Care Administrator Pesticide Name Role Phone Emmie Huerta MD Unavailable Nabila iKng MD Primary Care Provider [phone] Reason for Referral * Imaging (Routine) - Closed Specialty Diagnoses / Procedures Referred By John bojorquez Referred To Contact RADIOLOGY Diagnoses Nonrheumatic aortic valve insufficiency Procedures USE ECHOCARDIOGRAM Emmie Huerta MD [address] [address] Phone: tel: fax: Referral ID Status Reason Start Date Expiration Date Visits Re quested Visits Authorized [id number] Closed 12/08/2020 01/08/2022 1 1 Reason for Visit * Imaging (Routine) - Closed Specialty Diagnoses / Procedures Referred By John bojorquez Referred To Contact RADIOLOGY Diagnoses Nonrheumatic aortic valve insufficiency Procedures USE ECHOCARDIOGRAM Emmie Huerta MD [facility]. [address] [address] Phone: tel: fax: Referral ID Status Reason Start Date Expiration Date Visits Re quested Visits Authorized [id number] Closed 12/08/2020 01/08/2022 1 1 Encounter Details Date Type Department Care Team (Late st Contact Info) Description 12/25/2020 9:53 AM CDT - 12/25/2020 11:59 PM CDT Hospital Encounter [facility] Non [place]vasive [place] [address] Emmei Huerta MD Three [facility]. [address] [place] [address] Discharge Disposition: Home or Self Care (Routine [...] Procedure Name Priority Date/Time Associated Diagnosis Comments USE ECHOCARDIOGRAM Routine 12/25/2020 12 :03 PM CDT Nonrheumatic aortic valve insufficiency documented in this encounter Results * USE ECHOCARDIOGRAM (12/25/2020 12:03 PM CDT) Anatomical Region Laterality Modality Cardiac Echocardiogram 12/25/2020 11:0 1 AM CDT Narrative 12/26/2020 9:07 AM CDT ?Echocardiography Report Pat.Name: ??LISA CONN ? Pat.ID: ?[id number] ? St.Date: ?? 12/25/2020 ?Refer.MD: ??[id number] HUERTA EMMIE ? Exam Time: 11:01:00 AM ? Study Type:ECHO WITH CARDIAC DOPPLER COMP Height: ?63in ?Weight: ?121.75lb ? BSA: ? 1.57 m2 ?Age: ??1935,85Y ? Sex: ? FEMALE ?BP: ?135/59 ? HR: ?44 bpm ?Sonogrphr: Rosie Oliveira RDJACOB ? Pat. Stat.:Outpatient ? Reason for Study:Aortic insufficiency History / Clinical:AAA Screening, aortic insufficiency. No significant past medical history Procedures: 2D, M-mode, Doppler, Color Flow, The study quality is technically adequate. Race: ?W ? ++++++++++++++++++++++++++++++++++++ SUMMARY: ++++++++++++++++++++++++++++++++++++ The [...] size is normal. The left ventricular ?systolic function is normal. Estimated left ventricular ?ejection fraction is 55-60%. No concentric left ventricular ?hypertrophy. Left ventricular diastolic function is abnormal ?(grade 2 - pseudonormal pattern). WM: ? Wall motion appears normal in all segments. RV: ? The right ventricle size is normal. The right ventricular ?function is normal. IVS: ?No evidence of ventricular septal defect. LA: ? The left atrial volume is normal ( less than 34 ml/M2). RA: ? Right atrial size is mildly enlarged. IAS: ?Atrial septum appears intact. JANET: ? No evidence of pericardial effusion. AO: ? Normal aortic root. SVn: ?Inferior vena cava is normal. AV: ? The aortic valve is trileaflet. No evidence of aortic valve ?stenosis. Moderate aortic regurgitation. MV: ? Trace mitral regurgitation. No evidence of mitral stenosis. ?There is mild prolapse of both mitral valve leaflet(s). PV: ? No evidence of pulmonic valve stenosis. Mild pulmonic ?regurgitation. TV: ? Moderate to severe tricuspid regurgitation. Right ?ventricular systolic pressure is 30-40 mmHg suggestive of ?mild pulmonary hypertension. No evidence of tricuspid valve ?stenosis. ++++++++++++++++++++++++++++++++++++ MEASUREMENTS: ++++++++++++++++++++++++++++++++++++ ?2D Left Ventricle ?? LVIDd ? 4.26 cm ?? (3.6-5.2) LVEDV BP ?64.4 ml ?? LV EDV ?61.7 ml ?LVESV BP ?25.8 ml ?? LV ESV ?29.9 ml ?LV EF ? 51.5 % ?? LV EDV ?61.8 ml ?Left Ventricula -15.7 % ?? LV ESV ?21.4 ml ?LV EF ? 65.4 % ?? LV EF BP ?59.9 % ? Left Ventricula -16.6 % ?? Left Ventricula -16.2 % ? Aortic Valve ?? Aortic Root Anna ??2.63 cm ? Left atrial anna ??4.04 cm ?? Left Atrium ?? Left Atrium Vol ??32.7 ml/m2 ? LA Biplane Left Atrium Vol ??51.3 ml ? LA Single Plane Left Atrium rupali ? 5 cm ? Left Atrium rupali ??5.42 cm ?? Left Atrium Vol ??49.1 ml ? Left Atrium Vol ??50.2 ml ?? LV Teichholz Interventricula ??0.87 cm ? Left Ventricle ?2.4 cm ?? Left Ventricle ?? 0.71 cm ? Heart rate ?45 heart beat/minute Right Atrium ?? RA sys Area ? 18.8 cm2 ? Right Ventricle ?? Right Ventricul ??2.27 cm ? RVIDd ? 3.19 cm ?MMODE Tricuspid Valve ?? Tricuspid annul ??2.06 cm ?DOPPLER Pulmonary Veins ?? PVnpkVeld ? 43 cm/s ?AR-wave velocit ??0.23 m/s Pulmonary Vein ?? 0.44 m/s ?PVn A Dur ?0.117 s ?? PV Regurg Flow PV pkVel ?63 cm/s ? Aortic Valve ?? Cardiovascular ?? 1.84 cm ? LVOT/AoV (GLASS WOOL BLANKET MACHINE FEEDER) ( ??0.72 ? P1/2t ?0.597 s ? AV Antegrade Flow Peak Velocity ( ??1.34 m/s ?Mean Velocity ( ??0.91 m/s Velocity Time I ??35.3 cm ? AV Antegrade Flow Simplified Bernoulli Gradient pressu ?? 7.2 mmHg ? Gradient pressu ?? 3.6 mmHg AV Continuity Equation by Velocity Time Integral Aortic Valve Ar ?? 1.6 cm2 ?AoV Area Index ?? 1.02 ? AV Regurgitant Flow AR Vmax (Diasto ??5.34 m/s ?Deceleration Ti 0.814 s ?? AR Rikki (Diastol ??3.21 m/s ?AR PGmax (Diast ?? 114 mmHg Deceleration Sl ??2.62 m/s2 ? Left Ventricle ?? Stroke Volume ( ??56.3 ml ? Cardiac Output ?? 2.36 liter/minute LV Antegrade Flow Peak Velocity ( ??0.97 m/s ?Mean Velocity ( ??0.58 m/s Velocity Time I ??21.2 cm ? LV Antegrade Flow Simplified Bernoulli Gradient pressu ?? 3.8 mmHg ? Gradient pressu ?? 1.6 mmHg Mitral Valve ?? Mitral Valve E- 0.177 s ?Mean Myocardial ?? 5.2 cm/s Myocardial Velo ?? 5.2 cm/s ? Ratio of Mitral ??16.3 ? Myocardial Velo ?? 5.2 cm/s ? Ratio of Mitral ??16.3 ? Mitral Valve E ?? 1.72 ?Ratio of Mitral ??16.3 ? MV Antegrade Flow Mitral Valve E- ??0.85 m/s ?Mitral Valve A- ?? 0.5 m/s PV Antegrade Flow PV Vmax (Diasto ??0.61 m/s ? PV Antegrade Flow Simplified Bernoulli PV PGmax (Systo ?? 1.5 mmHg ? PV Regurgitant Flow Pressure gradie ?? 1.6 mmHg ? Tricuspid Valve ?? Tricuspid Valve ??0.65 m/s ?Right Ventricul ??33.5 mmHg Right Atrial Pr ? 3 mmHg ? TV Regurgitant Flow MaximumTricuspi ??2.76 m/s ?MaximumTricuspi ??30.5 mmHg Signed 12/26/2020 09:07 AM Emmie Huerta, M.D. Procedure Note Emmie Huerta MD - 12/26/2020 Echocardiography Report Pat.Name: LSIA CONN Pat.ID: [id number] .Date: 12/25/2020 Steff.: [id number] DEANNA OLEA Exam Time: 11:01:00 AM Study Type:ECHO WITH CARDIAC DOPPLER COMP Height: 63in Weight: 121.75lb BSA: 1.57 m2 Age: 4 1935,85Y Sex: FEMALE BP: 135/59 HR: 44 bpm Sonogrphr: Rosie Oliveira [facility] Pat. Stat.:Outpatient Reason for Study:Aortic insufficiency History / Clinical:AAA Screening, aortic insufficiency. No significant past medical history Procedures: 2D, M-mode, Doppler, Color Flow, The study quality is technically adequate. Race: W ++++++++++++++++++++++++++++++++++++ SUMMARY: ++++++++++++++++++++++++++++++++++++ The left [...] is abnormal (grade 2 - pseudonormal pattern). WM: Wall motion appears normal in all segments. RV: The right ventricle size is normal. The right ventricular function is normal. IVS: No evidence of ventricular septal defect. LA: The left atrial volume is normal ( less than 34 ml/M2). RA: Right atrial size is mildly enlarged. IAS: Atrial septum appears intact. JANET: No evidence of pericardial effusion. AO: Normal aortic root. SVn: Inferior vena cava is normal. AV: The aortic valve is trileaflet. No evidence of aortic valve stenosis. Moderate aortic regurgitation. MV: Trace mitral regurgitation. No evidence of mitral stenosis. There is mild prolapse of both mitral valve leaflet(s). PV: No evidence of pulmonic valve stenosis. Mild pulmonic regurgitation. TV: Moderate to severe tricuspid regurgitation. Right ventricular systolic pressure is 30-40 mmHg suggestive of mild pulmonary hypertension. No evidence of tricuspid valve stenosis. ++++++++++++++++++++++++++++++++++++ MEASUREMENTS: ++++++++++++++++++++++++++++++++++++ 2D Left Ventricle LVIDd 4.26 cm (3.6-5.2) LVEDV BP 64.4 ml LV EDV 61.7 ml LVESV BP 25.8 ml LV ESV 29.9 ml LV EF 51.5 % LV EDV 61.8 ml Left Ventricula -15.7 % LV ESV 21.4 ml LV EF 65.4 % LV EF BP 59.9 % Left Ventricula -16.6 % Left Ventricula -16.2 % Aortic Valve Aortic Root Anna 2.63 cm Left atrial anna 4.04 cm Left Atrium Left Atrium Vol 32.7 ml/m2 LA Biplane Left Atrium Vol 51.3 ml LA Single Plane Left Atrium rupali 5 cm Left Atrium rupali 5.42 cm Left Atrium Vol 49.1 ml Left Atrium Vol 50.2 ml LV Teichholz Interventricula 0.87 cm Left Ventricle 2.4 cm Left Ventricle 0.71 cm Heart rate 45 heart beat/minute Right Atrium RA sys Area 18.8 cm2 Right Ventricle Right Ventricul 2.27 cm RVIDd 3.19 cm MMODE Tricuspid Valve Tricuspid annul 2.06 cm DOPPLER Pulmonary Veins PVnpkVeld 43 cm/s AR-wave velocit 0.23 m/s Pulmonary Vein 0.44 m/s PVn A Dur 0.117 s PV Regurg Flow PV pkVel 63 cm/s Aortic Valve Cardiovascular 1.84 cm LVOT/AoV (GLASS WOOL BLANKET MACHINE FEEDER) ( 0.72 P1/2t 0.597 s AV Antegrade Flow Peak Velocity ( 1.34 m/s Mean Velocity ( 0.91 m/s Velocity Time I 35.3 cm AV Antegrade Flow Simplified Bernoulli Gradient pressu 7.2 mmHg Gradient pressu 3.6 mmHg AV Continuity Equation by Velocity Time Integral Aortic Valve Ar 1.6 cm2 AoV Area Index 1.02 AV Regurgitant Flow AR Vmax (Diasto 5.34 m/s Deceleration Ti 0.814 s AR Rikki (Diastol 3.21 m/s AR PGmax (Diast 114 mmHg Deceleration Sl 2.62 m/s2 Left Ventricle Stroke Volume ( 56.3 ml Cardiac Output 2.36 liter/minute LV Antegrade Flow Peak Velocity ( 0.97 m/s Mean Velocity ( 0.58 m/s Velocity Time I 21.2 cm LV Antegrade Flow Simplified Bernoulli Gradient pressu 3.8 mmHg Gradient pressu 1.6 mmHg Mitral Valve Mitral Valve E- 0.177 s Mean Myocardial 5.2 cm/s Myocardial Velo 5.2 cm/s Ratio of Mitral 16.3 Myocardial Velo 5.2 cm/s Ratio of Mitral 16.3 Mitral Valve E 1.72 Ratio of Mitral 16.3 MV Antegrade Flow Mitral Valve E- 0.85 m/s Mitral Valve A- 0.5 m/s PV Antegrade Flow PV Vmax (Diasto 0.61 m/s PV Antegrade Flow Simplified Bernoulli PV PGmax (Systo 1.5 mmHg PV Regurgitant Flow Pressure gradie 1.6 mmHg Tricuspid Valve Tricuspid Valve 0.65 m/s Right Ventricul 33.5 mmHg Right Atrial Pr 3 mmHg TV Regurgitant Flow MaximumTricuspi 2.76 m/s MaximumTricuspi 30.5 mmHg Signed 12/26/2020 09:07 AM Emmie Huerta M.D. us Emmie Huerta MD ECHO Final Result documented in this encounter Visit Diagnoses Diagnosis Nonrheumatic aortic valve insufficiency Aortic valve disorders documented in this encounter Care Teams Administrator Pesticide Relationship Specialty Start Date End Date Nabila King MD [address] [place] [address] PCP - General INTERNAL MEDICINE 12/08/20 Emmie Huerta MD Three [facility]. [facility] [address] [place] [address] [place] Grants Officer CARDIOVASCULAR DISEASE 03/21/16 documented as of this encounter
--- OUTSIDE RECORDS SUMMARY | 2024-08-09 17:41 | XMS_ITS | Encounter Summary ---
Author Organization [facility] Address [address] [place] [address]. [place] [address] [place] [address] Care Team Providers Care Light Air Defense Artillery Crewmember Name Role Phone Regulo Pandey MD Unavailable Nabila King MD Primary Care Provider [phone] Encounter Details Date Type Department Care Team (Latest Contact Info) Description 12/25/2020 Travel Social History Tobacco Use Types Packs/Day [...] on filedocumented in this encounter Care Teams Light Air Defense Artillery Crewmember Relationship Specialty Start Date End Date Nabila King MD [address] [place] [address] PCP - General INTERNAL MEDICINE 12/08/20 Regulo Pandey MD [id number] [place] [address] Margaret Hat Conditioner CARDIOVASCULAR DISEASE 03/21/16 documented as of this encounter
--- OUTSIDE RECORDS SUMMARY | 2024-08-09 17:41 | XMS_ITS | Encounter Summary ---
Author Organization [facility] Address [address] [place] [address]. [place] [address] [place] [address] Care Team Providers Care Exhibit Designer Name Role Phone Regulo Pandey MD Unavailable Nabila King MD Primary Care Provider [phone] Reason for Visit * Reason Onset Date Comments Results 12/29/2020 Echo and AAA scr eening Encounter Details Date Type Department Care Team ([facility] Contact Info) Description 12/29/2020 Telephone [facility], [facility] [address] [place] [address] Renetta Dhillon ANP-BC [facility]. [address] [place] [address] Results (Echo and AAA screening) Social History Tobacco Use Types Packs/Day Years [...] AM CDT documented as of this encounter Progress Notes * CHARISSE Hanson - 12/29/2020 3:59 PM CDT Thank you * CHARISSE Hanson - 12/29/2020 3:28 PM CDT Echocardiogram 12/25/2020: The left ventricular size is normal. The [...] 30-40 mmHg suggestive of mild pulmonary hypertension. AAA screening 12/25/2020: ?? No abdominal aorta aneurysm present. Discussed test results with patient. She verbalized understanding. She has an appointment on Januaryor follow-up and she was advised to keep that. documented in this encounter Plan of Treatment Not on file documented as of this encounter Visit Diagnoses Not on filedocumented in this encounter Care Teams Exhibit Designer Relationship Specialty Start Date End Date Nabila King MD [address] [place] [address] PCP - General INTERNAL MEDICINE 12/08/20 Regulo Pandey MD Three [facility]. [address] [place] [address] [place] Thoroughbred Horse Farm Manager CARDIOVASCULAR DISEASE 03/21/16 documented as of this encounter
--- OUTSIDE RECORDS SUMMARY | 2024-08-09 17:41 | XMS_ITS | Encounter Summary ---
Author Organization [facility] - [facility] Address [address] [place] [address]. [place] [address] [place] [address] Care Team Providers Care Intermediate Designer Name Role Phone Regulo Pandey MD Unavailable Nabila King MD Primary Care Provider [phone] Reason for Visit * Reason Onset Date Comments Concerns 05/03/2021 Encounter Details Date Type Department Care Team (Late st Contact Info) Description 05/03/[address] [address] Ivory Lyn RN Concerns Social History Tobacco Use Types Packs/Day Years [...] often do you attend chur ch or denominational services? More than 4 times per year 02/15/2021 Do you belong to any clubs o r organizations such as hoahaoism groups, unions, fraternal or athletic groups, or [...] and heating? Not hard at all 02/15/2021 [facility] - Occupational [...] place to sleep or slept in a custodial (including now)? 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 Message to Dr. Pandey, advised pt to check pulse when she feels bad, keep appt next week, go to ER with any concerns, pt verbalizes understanding and has no further questions. Mica Lyn R.N. documented in this encounter Plan of Treatment Not on file documented as of this encounter Visit Diagnoses Not on filedocumented in this encounter Care Teams Intermediate Designer Relationship Specialty Start Date End Date Nabila King MD [address] [place] [address] PCP - General INTERNAL MEDICINE 12/08/20 Regulo Pandey MD Three [facility]. [address] [place] [address] Margaret Horticultural Specialty Grower CARDIOVASCULAR DISEASE 03/21/16 documented as of this encounter
--- OUTSIDE RECORDS SUMMARY | 2024-08-09 17:41 | XMS_ITS | Encounter Summary ---
Author Organization [facility] Address [address] [place] [address]. [place] [address] [place] [address] Care Team Providers Care Fitness Management Director Name Role Phone Regulo Pandey MD Unavailable Nabila King MD Primary Care Provider [phone] Reason for Visit * Reason Onset Date Comments Question 12/16/2020 Encounter Details Date Type Department Care Team (Late st Contact Info) Description 12/16/2020 Telephone [facility] [place] [address] Christine Sierra, RN Question Social History Tobacco Use Types Packs/Day Years [...] as of this encounter Progress Notes * Christine Sierra RN - 12/16/2020 3:02 PM CDT Heart monitoring equipment arrived on 12/09/20 at 11:01 pm. Calling to see why not started. No answer or voicemail at Lisa's number. Esther, her daughter was asked to to tell her mother to call the number on the inside of the lid and tell them she is a [facility], explaining they will walk her through set up and ensure she is monitoring. Left office and extension numbers, if her mother needs anything else. Esther states she will contact her to get started. documented in this encounter Plan of Treatment Not on file documented as of this encounter Visit Diagnoses Not on filedocumented in this encounter Care Teams Fitness Management Director Relationship Specialty Start Date End Date Nabila King MD [address] [place] [id number] PCP - General INTERNAL MEDICINE 12/08/20 Regulo Pandey MD [facility]. [facility] [address] [place] [address] [place] Tilting Head Band Sawyer CARDIOVASCULAR DISEASE 03/21/16 documented as of this encounter
--- OUTSIDE RECORDS SUMMARY | 2024-08-09 17:41 | XMS_ITS | Encounter Summary ---
Author Organization [facility] Address [address] [place] [address]. [place] [address] [place] [address] Care Team Providers Care Fire Alarm Installer Name Role Phone Regulo Pandey MD Unavailable Nabila King MD Primary Care Provider [phone] Reason for Visit * Reason Onset Date Comments Information 02/18/2021 Encounter Details Date Type Department Care Team (Late st Contact Info) Description 02/18/[address] [id number] Vanessa Lucia RN Information Social History Tobacco Use Types Packs/Day [...] often do you attend chur ch or pentecostalism services? More than 4 times per year 02/15/2021 Do you belong to any clubs o r organizations such as yazidism groups, unions, fraternal or athletic groups, or [...] and heating? Not hard at all 02/15/2021 [facility] Occupat ional Health - Occupational Stress [...] Progress Notes * Vanessa Lucia RN - 02/19/2021 4:35 PM CDT I informed the patient of the above information from Rosana PEREZ. The patient states that she is allergic to the adhesive but now has an area on her shoulder that she noticed today. The patient states that these are not shingles because they do not follow the pattern and she has been vaccinated twice.The patient also went to her PCP yesterday and the DIGITAL ACCOUNT MANAGER thinks the areas are due to the irritation ofthe pads. The patient was reading on Eliquis and read that the dose should be 2.5mg if above 80 andless than 60 Kg. The patient states that she is 54kg. I informed the patient that I will notify and call her next week. The patient verbalized understanding and had no further questions. Message to Dr. Méndez. * CHRIS Vieyra - 02/19/2021 3:08 PM CDT I suspect the irritation on her chest is from adhesive from the pads. She should continue her meds the same including Eliquis. Call if getting worse or other questions. * Vanessa Lucia RN - 02/18/2021 11:05 AM CDT I received a phone call from the patient stating that she wanted to give an update to the PA. The patient had an ablation on Monday that did not go as planned. The patient has hives under her left breast. She is not sure if that was irritation from the leads or a reaction to the Eliquis. She denies any swelling to the tongue and throat. The patient also now has a bladder infection. She thought that she did not have a urinary catheter. She wanted to notify the PA. The patient is scheduled to see her PCP today. I informed the patient that I will notify the PA and will call back if there are any recommendations; if not, then call our office with any questions or concerns. The patient verbalized understanding and had no further questions. Message to Rosana PEREZ . documented in this encounter Plan of Treatment Not on file documented as of this encounter Visit Diagnoses Not on filedocumented in this encounter Care Teams Fire Alarm Installer Relationship Specialty Start Date End Date Nabila King MD [address] [facility] [address] [place] [address] PCP - General INTERNAL MEDICINE 12/08/20 Regulo Pandey MD [facility]. [facility] [address] [place] [address] [place] CARDIOVASCULAR DISEASE 03/21/16 documented as of this encounter
--- OUTSIDE RECORDS SUMMARY | 2024-08-09 17:41 | XMS_ITS | Encounter Summary ---
Author Organization [facility] Address [address] [place] [address]. [place], [place] [id number] [place] [address] Care Team Providers Care Retail Property Manager Name Role Phone Regulo Pandey MD Unavailable Nabila King MD Primary Care Provider [phone] Encounter Details Date Type Department Care Team (Latest Contact Info) Description 07/22/2021 Travel Social History Tobacco Use Types Packs/Day [...] week 02/15/2021 How often do you attend [facility] or sikhism services? More than 4 times per year 02/15/2021 Do you belong to any clubs o r organizations such as holiness groups, unions, fraternal or athletic groups, or [...] and heating? Not hard at all 02/15/2021 [facility] Occupat ional Health - Occupational Stress [...] place to sleep or slept in a long term (including now)? No 02/15/2021 Comments No Sex [...] COVID-19? No / Unsure 07/22/2021 11:04 AM TANNERY GUMMER documented as of this encounter Functional Status [...] on filedocumented in this encounter Care Teams Retail Property Manager Relationship Specialty Start Date End Date Stabell, Nabila, MD [address] [place] [address] PCP - General INTERNAL MEDICINE 12/08/20 Regulo Pandey MD Three [facility]. [facility] [address] [place] [address] [place] Sales Representative Printing Paper CARDIOVASCULAR DISEASE 03/21/16 documented as of this encounter
--- OUTSIDE RECORDS SUMMARY | 2024-08-09 17:41 | XMS_ITS | Encounter Summary ---
Author Organization [facility] Address [address] [place] [address]. [place] [address] [place] [address] Care Team Providers Care Head Paper Tester Name Role Phone Regulo Pandey MD Unavailable Stacy King MD Primary Care Provider [phone] Reason for Referral * Imaging (Routine) - Closed Specialty Diagnoses / Procedures Referred By Contac t Referred To Contact RADIOLOGY Diagnoses Cervical radiculopathy Procedures MRI CERV SPINE WWO CON Stacy King MD [address] [place] [address] Phone: tel: fax: Referral ID Status Reason Start Date Expiration Date Visits Re quested Visits Authorized [id number] Closed 04/08/2024 10/07/2024 1 1 Encounter Details Date Type Department Care Team (Late st Contact Info) Description 04/12/2024 12:45 PM CDT - 04/12/2024 11:59 PM CDT Hospital Encounter [facility] [place] [address] Stacy King MD [address] [place] [address] Discharge Disposition: Home or Self Care (Routine [...] often do you attend chur ch or zoroastrian services? More than 4 times per year 02/15/2021 Do you belong to any clubs o r organizations such as scientology groups, unions, fraternal or athletic groups, or [...] and heating? Not hard at all 02/15/2021 [facility] of Occupat ional Health - Occupational Stress [...] place to sleep or slept in a fpc (including now)? No 02/15/2021 Comments No Sex [...] Date Author Status No 02/15/2021 5:41 PM ARMANDT Shruthi Crane RN Active documented in this encounter Medications at Time of Discharge apixaban 2.5 MG tablet Take 1 tablet (2.5 mg total) by mouth 2 (two) times daily. 180 tablet 1 10/04/2021 B Complex Vitamins (VITAMIN B COMPLEX) Tab Take 1 tablet by mouth daily. 04/05/2016 Cholecalciferol (VITAMIN D3) 2000 UNITS Tab Take 1 tablet by mouth daily. 04/05/2016 levothyroxine 50 MCG tablet Take 50 mcg by mouth every morning. Take 50mcg and 100mcg alternating days 05/22/2018 melatonin 3 MG tablet Take 1 tablet (3 mg total) by mouth nightly at bedtime. 04/05/2016 documented as of this encounter Plan of Treatment Not on file documented as of this encounter Procedures Procedure Name Priority Date/Time Associated Diagnosis Comments MRI CERV SPINE WWO CON Routine 04/12/2024 2:55 PM CDT Cervical radiculopathy XR CHEST PA OR AP 1V STAT 04/12/2024 1:10 PM CDT S/P placement of cardiac pacemaker documented in this encounter Results * MRI CERV SPINE WWO CON (04/12/2024 2:55 PM CDT) Anatomical Region Laterality Modality Spine Magnetic Resonan ce 04/17/2024 2:21 PM CDT Impressions 04/17/2024 2:26 PM CDT IMPRESSION: 1. 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 ??Moderate bilateral foraminal stenosis at C4/C5. 2. ??No significant cervical central canal stenosis or cord signal abnormality. 3. ??No acute osseous abnormality. ??Mild chronic compression fracture of C5 with depression of the inferior endplate and 10% loss of height, unchanged. Referred By: ?? Interpreted By: Jimbo Tristan MD, 04/17/2024 2:21 PM Narrative 04/17/2024 2:26 PM CDT [address] [address] EXAMINATION:MRI of the cervical spine with and without contrast 04/12/2024 INDICATION:Cervical radiculopathy, chronic C5 fracture TECHNIQUE: Multiplanar multisequence MR imaging of the cervical spine was performed prior to and following the administration of 11 mL of Dotarem contrast intravenously. COMPARISON: Cervical radiographs 06/06/2024 FINDINGS:Cervical spine is in anatomic alignment. ??There is slight depression of the inferior endplate of C5 with the 10% loss of height, unchanged.. ??Bone marrow signal is within normal limits with no acute fracture or dislocation. ??No ligamentous discontinuity or signal abnormality Partially visualized intracranial contents are unremarkable. ??The cervical spinal cord is unremarkable in course caliber contour and signal. ??No prevertebral edema. ??No paraspinal mass or fluid collection No stenosis at the foramen magnum or C1/C2 level C2/C3: Negative C3/C4: Disc space narrowing with small posterior disc/osteophyte complex, uncovertebral arthropathy and facet arthropathy causing slight effacement of ventral thecal sac and severe bilateral foraminal stenosis. C4/C5: Disc space narrowing, disc bulging a few arthropathy and facet arthropathy causing slight effacement of ventral thecal sac and moderate bilateral foraminal stenosis C5/C6: Disc space narrowing, disc bulging, uncovertebral arthropathy and facet arthropathy causing severe bilateral foraminal stenosis. C6/C7: Disc space narrowing with posterior disc/osteophyte complex, uncovertebral arthropathy and facet arthropathy causing slight effacement of ventral thecal sac and severe bilateral foraminal stenosis. C7/T1: Mild facet arthropathy No abnormal enhancement. Procedure Note Jimbo Tristan MD - 04/17/[address] [address] EXAMINATION:MRI of the cervical spine with and without contrast04/12/2024 INDICATION:Cervical radiculopathy, chronic C5 fracture TECHNIQUE: Multiplanar multisequence MR imaging of the cervical spine wasperformed prior to and following the administration of 11 mL of Dotaremcontrast intravenously. COMPARISON: Cervical radiographs 06/06/2024 FINDINGS:Cervical spine is in anatomic alignment. There is slightdepression of the inferior endplate of C5 with the 10% loss of height,unchanged.. Bone marrow signal is within normal limits with no acutefracture or dislocation. No ligamentous discontinuity or signalabnormality Partially visualized intracranial contents are unremarkable. The cervicalspinal cord is unremarkable in course caliber contour and signal. Noprevertebral edema. No paraspinal mass or fluid collection No stenosis at the foramen magnum or C1/C2 level C2/C3: Negative C3/C4: Disc space narrowing with small posterior disc/osteophyte complex,uncovertebral arthropathy and facet arthropathy causing slight effacementof ventral thecal sac and severe bilateral foraminal stenosis. C4/C5: Disc space narrowing, disc bulging a few arthropathy and facetarthropathy causing slight effacement of ventral thecal sac and moderatebilateral foraminal stenosis C5/C6: Disc space narrowing, disc bulging, uncovertebral arthropathy andfacet arthropathy causing severe bilateral foraminal stenosis. C6/C7: Disc space narrowing with posterior disc/osteophyte complex,uncovertebral arthropathy and facet arthropathy causing slight effacementof ventral thecal sac and severe bilateral foraminal stenosis. C7/T1: Mild facet arthropathy No abnormal enhancement. IMPRESSION: 1. 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 2. No significant cervical central canal stenosis or cord signalabnormality. 3. No acute osseous abnormality. Mild chronic compression fracture of C5with depression of the inferior endplate and 10% loss of height,unchanged. Referred By: Interpreted By: Jimbo Tristan MD, 04/17/2024 2:21 PM Stacy King MD MRI Final Result * XR CHEST PA OR AP 1V (04/12/2024 1:10 PM CDT) Anatomical Region Laterality Modality Chest Radiographic Cayla ging 04/12/2024 1:21 PM CDT Impressions 04/12/2024 1:22 PM CDT Impression: 1. No acute/active cardiopulmonary radiographic finding 2. Left chest wall dual-chamber pacer leads intact. 3. COPD. Ordered By: STACY KING Interpreted By: Aure Gonzalez MD, 04/12/2024 1:21 PM Narrative 04/12/2024 1:22 PM CDT Examination: Chest x-ray 1 view Exam date/time: 04/12/2024 1:03 PM Reason For Exam: ??88 female. Evaluation of pacemaker and leads prior to MRI ? Comparison: None Technique: Portable AP upright ??view of the chest Findings: Left-sided dual-chamber pacer leads in place. No lead kink or break identified. Normal cardiac size. Normally positioned trachea. Hilar and mediastinal contours are within normal limits. Pulmonary vasculature is normal. Mild lung hyperinflation compatible with COPD. Lungs and pleural spaces are radiographically clear; no consolidation, effusion or pneumothorax. Unremarkable upper abdomen. Procedure Note Aure Gonzalez MD - 04/12/2024 Examination: Chest x-ray 1 view Exam date/time: 04/12/2024 1:03 PM Reason For Exam: 88 female. Evaluation of pacemaker and leads prior toMRI Comparison: None Technique: Portable AP upright view of the chest Findings: Left-sided dual-chamber pacer leads in place. No lead kink orbreak identified. Normal cardiac size. Normally positioned trachea. Hilarand mediastinal contours are within normal limits. Pulmonary vasculatureis normal. Mild lung hyperinflation compatible with COPD. Lungs and pleural spacesare radiographically clear; no consolidation, effusion or pneumothorax. Unremarkable upper abdomen. Impression: 1. No acute/active cardiopulmonary radiographic finding 2. Left chest wall dual-chamber pacer leads intact. 3. COPD. Ordered By: STACY KING Interpreted By: Aure Gonzalez MD, 04/12/2024 1:21 PM Stacy King MD GENERAL IMAGING Final Result documented in this encounter Visit Diagnoses Diagnosis S/P placement of cardiac pacemaker Cardiac pacemaker in situ Cervical radiculopathy Brachial neuritis or radiculitis nos documented in this encounter Administered Medications Inactive Administered Medications - up to 3 most recent administrations Medication Order MAR Action Action Date Dose Rate Site gadoterate meglumine (DOTAREM) 7.5 MMOL/15ML injection 11 mL 11 mL, Intravenous, IMG once as needed, Contrast, 1 dose, Starting on Mon04/12/24 at 1455, Until Mon04/12/24 at 1455 Given 04/12/2024 2:55 PM CDT 11 mLs Right Arm documented in this encounter Care Teams Head Paper Tester Relationship Specialty Start Date End Date Stacy King MD [address] [place] [id number] PCP - General INTERNAL MEDICINE 12/08/20 Regulo Pandey MD Three [facility]. [facility] [address] [place] [address] [place] Quality Improvement Analyst CARDIOVASCULAR DISEASE 03/21/16 documented as of this encounter
--- OUTSIDE RECORDS SUMMARY | 2024-08-09 17:41 | XMS_ITS | Encounter Summary ---
Author Organization [facility] Address [address] [place] [address]. [place] [address] [place] [address] Care Team Providers Care Federal Judicial Law Clerk Name Role Phone Regulo Pandey MD Unavailable Stacy King MD Primary Care Provider [phone] Reason for Referral * Imaging (Routine) - Closed Specialty Diagnoses / Procedures Referred By Contac t Referred To Contact RADIOLOGY Diagnoses SVT (supraventricular tachycardia) ([facility]/HCC [facility]) Procedures XA SVT WPW ABLATION Gigi Méndez MD [facility]. [facility] [address] [place] [address] Phone: tel: fax: Referral ID Status Reason Start Date Expiration Date Visits Re quested Visits Authorized [id number] Closed 01/26/2021 02/15/2021 1 1 Reason for Visit * Reason Comments Supraventricular Tachycardia discuss abl ation Encounter Details Date Type Department Care Team (Late st Contact Info) Description 01/26/2021 1:00 PM CDT Office Visit [facility], [facility] [place] [address] [place] [address] Gigi Méndez MD [facility]. [facility] [address] [place] [address] Supraventricular Tachycardia (discuss ablation ) Social History Tobacco Use Types Packs/Day Years [...] often do you attend chur ch or church services? More than 4 times per year 02/15/2021 Do you belong to any clubs o r organizations such as sabianist groups, unions, fraternal or athletic groups, or [...] and heating? Not hard at all 02/15/2021 [facility] [place] of Occupat ional Health - Occupational Stress [...] a chcf (including now)? No 02/15/2021 Comments Unknown Sex and Gender Information Value [...] Sign Reading Time Taken Comments Blood Pressure 130/80 01/26/2021 1:05 PM CDT Pulse 57 01/26/2021 1:05 PM CDT Temperature - - Respiratory Rate - - Oxygen Saturation 98% 01/26/2021 1:05 PM CDT Inhaled Oxygen Concentration - - Weight 54 kg (119 lb) 01/26/2021 1:05 PM CDT Height 160 cm (5' 3 ) 01/26/2021 1:05 PM CDT Body Mass Index 21.08 01/26/2021 1:05 PM CDT documented in this encounter Patient Instructions * Patient Instructions* Mackenzie Sheth - 01/26/2021 1:00 PM CDT Images from the original note were not included. Patient Education Patient Education Supraventricular Tachycardia (SVT) The Basics Written by the doctors and editors at [facility] What is supraventricular tachycardia (SVT)???--??Supraventricular tachycardia, [...] process is complete. This topic retrieved from [employer] on: Oct 20, 2020. Topic 87544 Version 8.0 Release: 29.1.3 - C29.60 ?2020??happin! and/or its affiliates.??All rights reserved. figure 1: Normal heart This is a drawing of a normal heart. The heart has 4 chambers: right atrium, left atrium, right ventricle, and left ventricle. Blood flows from the right atrium to the right ventricle through the tricuspid valve. Blood flows from the left atrium to the left ventricle through the mitral valve. Graphic 68043 Version 3.0 figure 2: Person having an ECG This drawing shows a man having an ECG (also called an electrocardiogram or EKG). He has patches, called electrodes, stuck onto his chest, arms, and legs. Wires run from the electrodes to the ECG machine. An ECG measures the electrical activity in the heart. Graphic 82866 Version 2.0 figure 3: Holter monitor People [...] or certain times of the day. Graphic 37658 Version 8.0 figure 4: Cardiac event recorder An event recorder is a portable device patients can use to measure their heart rhythm for a short time. The patient must activate the recorder and hold it to the chest when they feel symptoms. It is useful for patients that have intermittent symptoms that may not be captured with other forms of testing. Graphic 76158 Version 4.0 Consumer Information Use and Disclaimer [...] that is right for you.The use of [employer] content is governed by the [employer] Terms of Use. ??2020 [employer]. All rights reserved. Copyright ?2020??[employer]. and/or its affiliates.??All rights reserved. documented in this encounter Progress Notes * Gigi Méndez MD - 01/26/2021 1:00 PM CDT Images from the original note were not included. [place], [place] [address] Cardiac Electrophysiology Outpatient Progress Note Patient name: Lisa Conn Primary Sandwich Board Carrier: Regulo Pandey MD Primary Care Provider: STACY KING MD Chief Complaint: To discuss ablation procedure History of Present Illness/Interval History Lisa Conn is a 85-year-old female with a history of hypothyroidism, aortic valve insufficiency, SVT here for follow up of SVT. She was seen in our clinic last week on 01/19/21 at the request of Dr. Pandey as she has been intolerant to medical therapy such as beta blockers in the past and she washaving frequent symptoms correlating with SVT on her monitor. These episodes on monitor were up to 19 minutes in duration. She notes they cause fatigue and dyspnea on exertion along with the palpitations. She had been prescribed metoprolol but never started it. She is here for more information regarding an EP study and ablation. Assessment and Plan Mrs. Conn is a 85-year-old female here today for follow up evaluation of SVT. 1. Paroxsymal SVT: We again reviewed the options for treatment including AV zac agents, antiarrhythmic drug therapy, or catheter ablation. Given prior medication intolerance she does wish to proceed with catheter ablation. 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 Risks of the procedure were again discussed including that of bleeding, local vessel injury, catheter perforation of the heart resulting in tamponade, heart block, and stroke. I did carefully review this procedure and answered her questions regarding this and recovery. 2. Hypothyroidism: On replacement therapy History Review of Systems Constitutional: Positive for malaise/fatigue. HENT: Negative. Eyes: Negative. Respiratory: Positive for shortness of breath. Cardiovascular: Positive for palpitations. Gastrointestinal: Negative. Genitourinary: Negative. Musculoskeletal: Negative. Skin: [...] Prescriptions No medications on file Previous Medications B COMPLEX VITAMINS (VITAMIN B COMPLEX) TAB [...] Medications No medications on file Discontinued Medications ASCORBIC ACID (VITAMIN C) 100 MG TABLET Take 1 tablet (100 mg total) by mouth daily. METOPROLOL TARTRATE 25 MG TABLET Take 0.5 tablets (12.5 mg total) by mouth 2 (two) times daily. Physical Exam Filed Vitals: 01/26/21 1305 BP: 130/80 Pulse: 57 SpO2: 98% Weight: 54 kg (119 lb) Height: 5' 3 (1.6 m) Physical [...] mild pulmonary hypertension. EKG: SB, RV conduction delay, septal AR (old) Other Imaging: CT calcium score: Total Score: 0 No plaque, very low risk, very unlikely for probability of significant CAD MD [facility] Cardiac Electrophysiology ; ext. [phone] Pager: [phone] 11:13 PM documented in this encounter Plan of Treatment Not on file documented as of this encounter Results * XA SVT WPW ABLATION (02/15/2021 4:31 PM CDT) Anatomical Region Laterality Modality Cardiac Parts Product Analyst Narrative 02/17/2021 2:[address] [facility] CARDIAC CATHETERIZATION/EP LAB [phone] x [phone] SVT Ablation Patient? s Name: ?? Lisa Conn Date of : ?? 1935 Medical Record: ??#[id number] Account: ??#[id number] Physician: ??Gigi Méndez MD Date: ?? 02/15/2021 Procedure: ?? #[id number] History: 85-year-old female with paroxysmal supraventricular tachycardia. Procedure: The patient was brought to the EP lab after consent obtained for EPS +/- ablation. Sedation services provided by Anesthesia services. Presenting Rhythm: Normal sinus rhythm Access: Ultrasound guidance was used for venous access. 8F/7F RFV, 6/6/F LFV were obtained. 2 quadripolar catheters were advanced to the high right atrial position, and RV apical septal position. A deflectable decapolar catheter was advanced out the coronary sinus. An octapolar catheter was placed on the His bundle. Catheters were placed under fluoroscopic guidance. ??The patient went into atrial fibrillation with the initial quadripolar catheter placement spontaneously. External cardioversion was needed to proceed with the remainder of the EP study. Baseline Measurements: RR ??1241 ms PP ??1241 ms QRS ??95 ms QT ??466 ms IN ??163 ms AH ?? 89 ms HV ??46 ms VA conduction ? is absent. AVWCL 450ms AVWCL was difficult to ascertain due to incessant SVT. AVNERP 400/<200 ms Atrial extrastimuli showed the absence of dual AV zac physiology. Atrial tachycardia: SVT was easily induced with atrial extra stimuli pacing. The SVT was approximately 487 ms. ??This showed significant wobble in the atrial cycle length. This was correlated with the patient as clinical tachycardia presentation. There was A>V present with VA dissociation with V pacing at tachycardia cycle length. Ablation: the atrial tachycardia was mapped using the mapping/ablation catheter and the earliest activation was noted at mid atrial septum. Ablation was directed here with 30W with significant response in regards to burst of ectopy with lesions in this area. However, during ablation the patient did initially go into a sustained atrial flutter. Entrainment from the proximal CS was performed and in the circuit. Attempts at entrainment from the distal CS was unsuccessful. Activation mapping of the RA with the ablation catheter revealed an activation pattern consistent with CW CTI dependent atrial flutter. The 4 mm ablation catheter was exchanged for an Agilis sheath and Thermacool Smart touch ablation catheter. The Agilis sheath and ablation catheter were brought into the RA and placed along the lateral tricuspid annulus. Ablation was performed here while withdrawing the catheter back to the IVC. However, during ablation the patient went spontaneously into atrial fibrillation again. Attempts at external cardioversion at 200 J x 2 were unsuccessful. An additional attempt was made after waiting a short period and again unsuccessful. IV amiodarone was given and another attempt was also not successful. The ablation line was completed while a second IV amiodarone bolus was given. After cardioversion, sinus was restored and block across this line was not confirmed. Additional ablation was needed and during this ablation atrial fibrillation again was spontaneously induced. After a final cardioversion the patient did maintain sinus bradycardia. After block across the line was confirmed the procedure was completed. Post ablation AVWCL 180ms. On isoproterenol: AVWCL 230ms, AVNERP 400/150. Catheters were removed and manual pressure was held over the venous access sites for hemostasis. Conclusion: SVT induced in EP lab which was diagnostic for atrial tachycardia and typical atrial flutter. Atrial fibrillation was very easily inducible as well. Suspect clinical paroxsymal atrial fibrillation. Recommendations: 4 hours of bedrest, continue home medications. ?? Start systemic anticoagulation for PAF 4 hours after hemostasis if no groin complications. Follow-up in 6 weeks. MD MISTI Lmeos/jeremy Interpreted: ?02/15/21 Transcribed: ??02/16/21 us Gigi Méndez MD GUN NUMBERER Final Resul t * TYPE & SCREEN (02/15/2021 10:12 AM CDT) ABO/RH O POSITIVE 02/15/2021 12:06 PM CDT [facility] ANTIBODY SCREEN NEGATIVE 02/15/2021 12:06 PM CDT [facility] SAMPLE EXPIRATION 02/18/2021,2 359 02/15/2021 12:06 PM CDT [facility] 02/15/2021 10:1 2 AM CDT Gigi Méndez MD BLOOD BANK TEST ORDERABLES Final Result [facility] [address] [place] [address], [place] [phone] * PROTIME/INR, VENOUS (02/15/2021 10:12 AM CDT) Pathologist [facility] [place] PROTIME 11.5 10.2 - 12.9 SEC 02/15/2021 11:03 AM CDT [facility] INR 1.0 02/15/2021 11:03 AM CDT [facility] Comment: Recommended INR Therapeutic Goals: ??2.0-3.0 Routine Therapy ??2.5-3.5 Mechanical Prosthetic Valves (High Risk) 02/15/2021 10:1 2 AM CDT Gigi Méndez MD LABORATORY Final Resul t [facility] [address] [place] [address], [place] [phone] * CBC W/DIFF AUTOMATED (02/15/2021 10:12 AM CDT) WBC 6.2 4.5 - 11.0 x10'3/uL 02/15/2021 10:43 AM CDT [facility] RBC 4.58 4.20 - 5.40 x10'6/uL 02/15/2021 10:43 AM CDT [facility] HGB 14.2 12.0 - 16.0 G/DL 02/15/2021 10:43 AM CDT [facility] HCT 43.5 38.0 - 48.0 % 02/15/2021 10:43 AM CDT [facility] MCV 95.0 81.0 - 99.0 FL 02/15/2021 10:43 AM CDT [facility] MCH 31.0 27.0 - 31.0 PG 02/15/2021 10:43 AM CDT [facility] MCHC 32.6 32.0 - 36.0 G/DL 02/15/2021 10:43 AM CDT [facility] RDW 13.9 11.5 - 14.5 % 02/15/2021 10:43 AM CDT [facility] PLT 229 130 - 400 x10'3/uL 02/15/2021 10:43 AM CDT [facility] MPV 10.6 9.3 - 12.2 FL 02/15/2021 10:43 AM CDT [facility] DIFFERENTIAL TYPE AUTOMATED DIFFERENTIAL 02/15/2021 10:43 AM CDT [facility] NEUTROPHILS % 54.1 % 02/15/2021 10:43 AM CDT [facility] LYMPHOCYTES % 37.2 % 02/15/2021 10:43 AM CDT [facility] MONOCYTES % 6.9 % 02/15/2021 10:43 AM CDT [facility] EOSINOPHILS 1.0 % 02/15/2021 10:43 AM CDT [facility] BASOPHILS 0.6 % 02/15/2021 10:43 AM CDT [facility] IMMATURE GRANS % 0.2 % 02/16/20 10:43 AM CDT [facility] ABS. NEUTROPHILS TOTAL 3.36 1.80 - 7.70 x10'3/uL 02/15/2021 10:43 AM CDT [facility] ABS. LYMPHOCYTES 2.31 1.00 - 4.80 x10'3/uL 02/15/2021 10:43 AM CDT [facility] ABS. MONOCYTES 0.43 0.24 - 0.86 x10'3/uL 02/15/2021 10:43 AM CDT [facility] ABS. EOSINOPHILS 0.06 0.04 - 0.36 x10'3/uL 02/15/2021 10:43 AM CDT [facility] ABS. BASOPHILS 0.04 0.01 - 0.08 x10'3/uL 02/15/2021 10:43 AM CDT [facility] ABS. IMMATURE GRANULOCYTES 0.01 0.00 - 0.49 x10'3/uL 02/15/2021 10:43 AM CDT [facility] 02/15/2021 10:1 2 AM CDT us Gigi Méndez MD LABORATORY Final Resul t [facility] [address] [place] [address], * (ABNORMAL) BASIC METABOLIC PANEL (02/15/2021 10:12 AM CDT) [facility] Signature GLUCOSE 83 70 - 99 MG/DL 02/15/2021 11:05 AM CDT [facility] BUN 16 7 - 18 MG/DL 02/15/2021 11:05 AM T [facility] CREATININE S/P/B 0.77 0.55 - 1.02 MG/DL 02/15/2021 11:05 AM [facility] SODIUM S/P/B 139 136 - 145 MMOL/L 02/15/2021 11:05 AM [facility] POTASSIUM S/P/B 4.2 3.5 - 5.1 MMOL/L 02/15/2021 11:05 AM T [facility] CHLORIDE S/P/B 106 100 - 108 MMOL/L 02/15/2021 11:05 AM [facility] CO2 27.7 21 - 32 MMOL/L 02/15/2021 11:05 AM [facility] CALCIUM S/P/B 9.7 8.5 - 10.1 MG/DL 02/15/2021 11:05 AM T [facility] ANION GAP 5.3 5 - 15 MMOL/L 02/15/2021 11:05 AM [facility] BUN CREATININE RATIO 20.7 6 - 26 02/15/2021 11:05 AM [facility] EGFR NON-AFR. AMER. 71(L) >90 ML/MIN/1.7 3 M2 02/15/2021 11:05 AM [facility] EGFR AFR. AMER. 82(L) >90 ML/MIN/1.7 3 M2 02/15/2021 11:05 AM [facility] Comment: NOTE: eGFR is not calculated for patients <18 years of age. This is an estimated GFR (CKD EPI) and should not be used for calculating drug doses. 02/15/2021 10:1 2 AM CDT us Gigi Méndez MD LABORATORY Final Resul t [facility] [address] [place] [address], documented in this encounter Visit Diagnoses Diagnosis SVT (supraventricular tachycardia) ([facility]/HCC)- Primary Other specified cardiac dysrhythmias Typical atrial flutter ([facility])- Primary Atrial flutter SVT (supraventricular tachycardia) ([facility]) Other specified cardiac dysrhythmias documented in this encounter Care Teams Federal Judicial Law Clerk Relationship Specialty Start Date End Date Stacy King MD [address] [place] [id number] PCP - General INTERNAL MEDICINE 12/08/20 Regulo Pandey MD Three [facility]. [facility] [place] [address] [place] [address] [place] [employer] Board Carrier CARDIOVASCULAR DISEASE 03/21/16 documented as of this encounter
--- OUTSIDE RECORDS SUMMARY | 2024-08-09 17:41 | XMS_ITS | Encounter Summary ---
Author Organization [facility] Address [address] [place] [address]. [place] [address] [place] [address] Care Team Providers Care Oil Separator Name Role Phone Emmie Heurta MD Unavailable Nabila King MD Primary Care Provider [phone] Reason for Referral * Imaging (Routine) - Closed Specialty Diagnoses / Procedures Referred By John bojorquez Referred To Contact Diagnoses Palpitations Procedures CLINIC - OUTPATIENT EVENT RECORDER (ECG) UP TO 30 DAYS COMPLETE (Holter) Emmie Huerta MD [address] [address] Phone: tel: fax: Emmie Huerta MD [address] [address] Phone: tel: fax: Referral ID Status Reason Start Date Expiration Date Visits Re quested Visits Authorized [id number] Closed 12/08/2020 01/07/2022 1 1 * Imaging (Routine) - Closed Specialty Diagnoses / Procedures Referred By John bojorquez Referred To Contact RADIOLOGY Diagnoses Nonrheumatic aortic valve insufficiency Procedures USE ECHOCARDIOGRAM Emmie Huerta MD [address] [address] Phone: tel: fax: Referral ID Status Reason Start Date Expiration Date Visits Re quested Visits Authorized [id number] Closed 12/08/2020 01/08/2022 1 1 * Imaging (Routine) - Closed Specialty Diagnoses / Procedures Referred By John t Referred To Contact RADIOLOGY Diagnoses Screening for AAA (abdominal aortic aneurysm) Procedures USV AAA SCREENING Emmie Huerta MD [facility]. [facility] [address] [place] [address] Phone: tel: fax: Referral ID Status Reason Start Date Expiration Date Visits Re quested Visits Authorized [id number] Closed 12/08/2020 01/08/2022 1 1 Reason for Visit * Reason Comments Heart Problem 2 year follow up Encounter Details Date Type Department Care Team (Late st Contact Info) Description 12/08/2020 9:45 AM CDT Office Visit [facility], [place] [address] [place], [place] [id number] Emmie Huerta MD [facility]. [facility] [address] [place] [address] Heart Problem (2 year follow up) Social History Tobacco Use [...] Sign Reading Time Taken Comments Blood Pressure 120/78 12/08/2020 9:49 AM CDT Pulse 47 12/08/2020 9:49 AM CDT Temperature - - Respiratory Rate - - Oxygen Saturation - - Inhaled Oxygen Concentration - - Weight 55.3 kg (122 lb) 12/08/2020 9:49 AM CDT Height 160 cm (5' 3 ) 12/08/2020 9:49 AM CDT Body Mass Index 21.61 12/08/2020 9:49 AM CDT documented in this encounter Progress Notes * Emmie Huerta MD - 12/08/2020 9:45 AM CDT I Haily Ambrosio, acting as scribe, am personally taking down the notes in the presence of Dr. Emmie Huerta. Take no action on this note until reviewed and authenticated by the physician. Chief Complaint Patient presents with ??? Heart Problem 2 year follow up HISTORY OF PRESENT ILLNESS Escobar Conn is a 85-year-old female who presents today for cardiac evaluation. She was last seen here 2 years ago. The patient has a history of aortic insufficiency. Patient has a lot of fatigue and has to lie down with exercise even when vacuuming around the house. The patient walks for her exercise and is very short of breath with exertion. The patient states symptoms of her heart rocking where she has to sit on the ground. These episodes occur almost every day along with palpitations and an irregular heart beat. Patient notes she is not sleeping well. She is not taking Lorazepam because she ran out of refills.Patient says when she was taking the medicine, she slept very well. The patient has no recent hospitalizations. The patient's PCP retired in July and she will see Dr. King next week for the first time. Patient is fully COVID-19 vaccinated. ASSESSMENT/PLAN 1. Shortness of breath/ Palpitations Frequent [...] appear to be any worse than before. 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 3. Orthostatic hypotension Mildly symptomatic. 4. Fatigue The patient is having fatigue daily which she believes is related to not sleeping at night. Patient ran out of Lorazepam and notes when she was taking it regularly she slept very well. RECOMMENDATIONS Discussed with patient she needs further cardiac evaluation studies performed. Will set patient up for an echocardiogram. Will set patient up for a 3 day event monitor. Marie ser patient up for an abdominal ultrasound to assess AAA. I am going to prescribe patient a weeks worth is Lorazepam. Otherwise continue current medication regimen. Advised cardiac diet. Advised regular exercise. Follow up in the office in 6 weeks by which time her results will be assessed. DATA REVIEWED ECG from today is overread showing: SINUS BRADYCARDIA 49 bpm [...] Not on file Occupational History Employer: RETIRED Social Needs ??? Financial resource strain: Not on file ??? Food insecurity Worry: Not on file Inability: Not on file ??? Transportation needs Medical: Not on file Non-medical: Not on file Tobacco Use ??? Smoking status: Never Smoker ??? Smokeless tobacco: Never Used Substance and Sexual Activity ??? Alcohol use: No ??? Drug use: No ??? Sexual activity: Not on file Lifestyle ??? Physical activity Days per week: Not on file Minutes per session: Not on file ??? Stress: Not on file Relationships ??? Social connections Talks on phone: Not on file Gets together: Not on file Attends restoration service: Not on file Active member of club or organization: Not on file Attends meetings of clubs or organizations: Not on file Relationship status: Not on file ??? Intimate partner violence Fear of current or ex partner: Not on file Emotionally abused: Not on file Physically abused: Not on file Forced sexual activity: Not on file Other Topics Concern [...] Alive, age 77y Review of Systems Constitutional: Positive for fatigue. Negative for recent unintentional weight gain and recent unintentional weight loss. HENT: Negative for headaches. Respiratory: Positive for shortness of breath. Negative for cough. Cardiovascular: See HPI. Positive for palpitations.Negative for chest pain, orthopnea, claudication, leg swelling and PND. Gastrointestinal: Negative for heartburn. Musculoskeletal: Negative for myalgias and new or worsening joint stiffness/pain. Neurological: Positive for dizziness. Endo/Heme/Allergies: Negative for new or significant bruising/bleeding. Psychiatric/Behavioral: Negative for depression and nervous/anxious. Filed Vitals: 12/08/20 0949 BP: 120/78 Pulse: (!) 47 Weight: 55.3 kg (122 lb) Height: 5' 3 (1.6 m) Body mass index is 21.61 kg/m??. Cardiac Exam Rate/Rhythm: Regular rhythm. No extrasystoles are present. Bradycardia present. PMI: PMI is not displaced. Pulses: Carotid pulses are 2+ on the right side and 2+ on the left side. Radial pulses are 2+ on the right side and 2+ on the left side. Heart Sounds: Murmurs: Murmur present Diastolic murmur is present with a grade of 2/6. Negative for edema. Physical Exam Constitutional: No distress. Healthy Appearance. HENT: Eyes: Conjunctivae normal. Neck: No JVD. No thyromegaly. Abdomen: Abdomen soft. Bowel sounds normal. Abdominal aorta is palpable and slightly tender. Unclear if it is enlarged.. Pulmonary: Effort normal. Breath sounds normal. Skin: Dry. Warm. No cyanosis. No clubbing. No xanthoma. Musculoskeletal: Neurological: Alert. Oriented x 3. Comments: Diagnoses/Impression: 1. Nonrheumatic aortic valve insufficiency ELECTROCARDIOGRAM USE ECHOCARDIOGRAM 2. Insomnia LORazepam (ATIVAN) 0.5 MG tablet 3. Screening for AAA (abdominal aortic aneurysm) USV AAA SCREENING 4. Palpitations CLINIC - OUTPATIENT EVENT RECORDER (ECG) UP TO 30 DAYS COMPLETE (Holter) Referring Provider: No ref. provider found PCP: NABILA KING MD documented in this encounter Plan of Treatment Not on file documented as of this encounter Procedures Procedure Name Priority Date/Time Associated Diagnosis Comments ELECTROCARDIOGRAM (NON MIDMARK ACQUIRED) Routine 12/08/2020 9:55 AM CDT Nonrheumatic aortic valve insufficiency documented in this encounter Results * CLINIC - OUTPATIENT EVENT RECORDER (ECG) UP TO 30 DAYS COMPLETE (Holter) (01/20/2021 8:39 AM CDT) 01/20/2021 8:39 AM CDT Narrative ESCRIPTION - 01/25/2021 11:52 AM CDT ENROLLMENT PERIOD: ??12/17/2020 - 01/08/2021 INDICATION: ??This patient underwent a 30-day monitor for complaints of recurrent and frequent episodes of palpitations. FINDINGS: The patient was monitored for 22 days with recording collected for 20 days and 11 hours. ??Average heart rate during this recording is 56 beats per minute. ??Maximum heart rate in sinus rhythm is 158 beats per minute. ?? There were frequent supraventricular ectopic beats, accounting for about 3% of all beats. ??There were also numerous episodes of supraventricular tachycardia. ??The longest episode was 19 minutes, but most of the episodes were self-limiting and less than 10 or 15 seconds. ??There appeared to be one episode of atrial fibrillation, though it is unclear. ??There are no pauses and no significant bradyarrhythmias. The patient does have frequent symptoms of palpitations and some of them correlate to the episodes of arrhythmias. IMPRESSION: ?? 1. ??Event monitor showing sinus rhythm with frequent supraventricular ectopy. 2. ??Supraventricular ectopy includes numerous short runs of atrial tachycardia along with one 20-minute episode of supraventricular tachycardia. ?? 3. ??Symptoms correlate to arrhythmias. Dictated by Emmie Huerta MD D: ??01/20/2021 08:39 AM #[id number] T: ??01/25/2021 08:14 AM /TC us Emmie Huerta MD CV VASCULAR ORDERABLES Final Res ult ESCRIPTION * USE ECHOCARDIOGRAM (12/25/2020 12:03 PM CDT) Anatomical Region Laterality Modality Cardiac Echocardiogram 12/25/2020 11:0 1 AM CDT Narrative 12/26/2020 9:07 AM CDT ?Echocardiography Report Pat.Name: ??ESCOBAR CONN ? Pat.ID: ?[id number] ? St.Date: ?? 12/25/2020 ?Refer.MD: ??[id number] HUERTA EMMIE ? Exam Time: 11:01:00 AM ? Study Type:ECHO WITH CARDIAC DOPPLER COMP Height: ?63in ?Weight: ?121.75lb ? BSA: ? 1.57 m2 ?Age: ??1935,85Y ? Sex: ? FEMALE ?BP: ?135/59 ? HR: ?44 bpm ?Sonogrphr: Rosie Oliveira RDCS ? Pat. Stat.:Outpatient ? Reason for Study:Aortic [...] % ? Aortic Valve ?? Aortic Root Marin ??2.63 cm ? Left atrial marin ??4.04 cm ?? Left Atrium ?? Left [...] ?? Cardiovascular ?? 1.84 cm ? LVOT/AoV (HOSE TUBING BACKER) ( ??0.72 ? P1/2t ?0.597 s ? [...] ??30.5 mmHg Signed 12/26/2020 09:07 AM Emmie Huerta M.D. Procedure Note Emmie Huerta MD - 12/26/2020 Echocardiography Report Pat.Name: ESCOBAR CONN Pat.ID: [id number] .Date: 12/25/2020 Refer.MD: [id number] DEANNA OLEA Exam Time: 11:01:00 AM Study [...] Ventricula -16.2 % Aortic Valve Aortic Root Marin 2.63 cm Left atrial marin 4.04 cm Left Atrium Left Atrium Vol [...] cm/s Aortic Valve Cardiovascular 1.84 cm LVOT/AoV (HOSE TUBING BACKER) ( 0.72 P1/2t 0.597 s AV Antegrade [...] us Emmie Huerta MD ECHO Final Result * USV AAA SCREENING (12/25/2020 10:22 AM CDT) Anatomical Region Laterality Modality NA Vascular Ultraso und 12/25/2020 9:59 AM CDT Narrative 12/29/2020 3:16 PM CDT ?AORTA ILIAC DUPLEX ? VASCULAR LAB Pat.Name: ??ESCOBAR CONN ? Pat.ID: ?[id number] ? St.Date: ?? 12/25/2020 ?Refer.MD: ??NABILA KING ? Exam Time: 9:59:00 AM ? Study Type:GISSELL VS Aorta IVC Iliac Duplex Uni Height: ?63in ?Age: ??1935,85Y ? Sex: ? FEMALE ?Sonogrphr: Celeste Conn RVT ? Pat. Stat.:Outpatient ? History / [...] 12/29/2020 AORTA ILIAC DUPLEX VASCULAR LAB Pat.Name: NANCY ESCOBAR M Pat.ID: [id number] .Date: 12/25/2020 Refer.MD: NABILA KING Exam Time: 9:59:00 AM Study Type:GISSELL VS Aorta IVC Iliac Duplex Uni Height: 63in Age: 3 1935,85Y Sex: FEMALE Sonogrphr: Celeste Conn RVT Pat. Stat.:Outpatient History / Clinical:AAA Screening, [...] 0.88 cm Signed 12/29/2020 03:16 PM Jonathon Michaud M.D. us Emmie Huerta MD [facility] Final Result * ELECTROCARDIOGRAM (12/08/2020 9:55 AM CDT) 12/08/2020 9:55 AM CDT Narrative [facility] - 12/14/2020 8:35 AM CDT ?[facility], O? [place] ? Test Date: ?2020-12-08 Pat Name: ? ESCOBAR CONN ? Department: ? Room: ? Gender: ? Female ? Manager Play: ?? ar : ?1935 ? Requested By: EMMIE HUERTA Order Number: [id number] ?Reading MD: ?? Emmie Huerta ? Measurements Intervals ?[place] ? Rate: ? 49 ? P: ?51 AR: ? 169 ?QRS: ?78 QRSD: ? 85 ? T: ?64 QT: ? 428 ? QTc: ?387 ? Interpretive Statements SINUS BRADYCARDIA POSSIBLE RIGHT VENTRICULAR CONDUCTION DELAY SEPTAL MYOCARDIAL INFARCTION, PROBABLY OLD Procedure Note Emmie Huerta MD - 12/14/2020 [facility], [facility]? [facility] Test Date: 2020-12-08 Pat Name: ESCOBAR CONN Department: Room: Gender: Female Manager Play: wilber : 1935 Requested By: EMMIE HUERTA Order Number: [id number] Reading MD: Emmie Huerta Measurements Intervals [place] Rate: 49 P: 51 AR: 169 QRS: 78 QRSD: 85 T: 64 QT: 428 QTc: 387 Interpretive Statements SINUS BRADYCARDIA POSSIBLE RIGHT VENTRICULAR CONDUCTION DELAY SEPTAL MYOCARDIAL INFARCTION, PROBABLY OLD us Emmie Huerta MD PROCEDURES-ORDERABLE NO CHARGE F inal Result [facility] documented in this encounter Visit Diagnoses Diagnosis Nonrheumatic aortic valve insufficiency- Primary Aortic valve disorders Insomnia Insomnia, unspecified Screening for AAA (abdominal aortic aneurysm) Screening for other and unspecified cardiovascular conditions Palpitations Shortness of breath Screening for AAA (abdominal aortic aneurysm) Screening for other and unspecified cardiovascular conditions Nonrheumatic aortic valve insufficiency Aortic valve disorders documented in this encounter Care Teams Oil Separator Relationship Specialty Start Date End Date Nabila King MD [address] [address] PCP - General INTERNAL MEDICINE 12/08/20 Emmie Huerta MD [facility]. [facility] [address] [place] [address] Margaret Steel Tier CARDIOVASCULAR DISEASE 03/21/16 documented as of this encounter
--- OUTSIDE RECORDS SUMMARY | 2024-08-09 17:41 | XMS_ITS | Encounter Summary ---
Author Organization [facility] Address [address] [place] [address]. [place], [place] [address] [place] [address] Care Team Providers Care Weaving Loom Operator Name Role Phone Jason Winters MD Primary Care Provider [phone] Regulo Pandey MD Unavailable Reason for Referral * Imaging (Routine) - Closed Specialty Diagnoses / Procedures Referred By John bojorquez Referred To Contact RADIOLOGY Diagnoses Screening for heart disease Procedures CT HEART DIAG CALCIUM SCORE Jason Winters MD [address] [place] [address] Phone: tel: fax: Referral ID Status Reason Start Date Expiration Date Visits Re quested Visits Authorized [id number] Closed 08/22/2019 09/20/2020 1 1 ALLATION TECH Reason for Visit * Imaging (Routine) - Closed Specialty Diagnoses / Procedures Referred By John bojorquez Referred To Contact RADIOLOGY Diagnoses Screening for heart disease Procedures CT HEART DIAG CALCIUM SCORE Jason Winters MD [address] [place] [address] Phone: tel: fax: Referral ID Status Reason Start Date Expiration Date Visits Re quested Visits Authorized [id number] Closed 08/22/2019 09/20/2020 1 1 Encounter Details Date Type Department Care Team (Latest Contact Info) Description 09/09/2019 10:47 AM INSTALLATION TECH - 09/09/2019 11:59 PM INSTALLATION TECH Hospital Encounter [place] [address] Jason Winters MD [address] [place] [id number] Discharge Disposition: Home or Self Care (Routine [...] on file documented as of this encounter Medications at [...] mg total) by mouth daily. 04/05/2016 1 lorazepam (ATIVAN) 0.5 MG tablet Take 1 tablet (0.5 mg total) by mouth nightly at bedtime. 04/05/2016 1 Misc Natural Products (TURMERIC CURCUMIN) Cap Take 1 capsule by mouth daily. 04/05/2016 1 documented as of this encounter Plan of Treatment Not on file documented as of this encounter Procedures Procedure Name Priority Date/Time Associated Diagnosis Comments CT HEART DIAG CALCIUM SCORE Routine 09/09/2019 11:51 AM INSTALLATION TECH Screening for heart disease documented in this encounter Results * CT HEART DIAG CALCIUM SCORE (09/09/2019 11:51 AM INSTALLATION TECH) Anatomical Region Laterality Modality Computed Tomogra phy 09/09/2019 8:35 PM INSTALLATION TECH Impressions 09/09/2019 8:36 PM INSTALLATION TECH IMPRESSION:===== Total Score: 0 No plaque, very low risk, very unlikely for probability of significant CAD Interpreted By: Tarik Lal MD, 09/09/2019 8:35 PM Narrative 09/09/2019 8:36 PM INSTALLATION TECH EXAMINATION: Multislice Helical CT Coronary Calcium Scoring EXAM DATE/TIME: 09/09/2019 11:19 AM REASON FOR EXAM: No current complaints. ??Self-referral for screening exam. COMPARISON: None TECHNIQUE: ??Multislice helical CT images of the proximal coronary arteries with a computer generated calcification score. Automated exposure control was utilized for dose reduction. Results: Left main: 0 ?LAD: 0 Circumflex: 0 ? Right coronary: 0 ?? Total Score: 0 ? Comments: Calcified granuloma right upper lung. ??Calcified granuloma central right lower lobe. ??Minimal scattered bibasilar atelectasis. ??No abnormal pulmonary nodule or mass. ??The visualized central airways are patent. ??No pericardial effusion. ??Visualized thoracic aorta normal in caliber throughout with mild calcifications. ??Limited evaluation of upper abdominal viscera shows no acute abnormalities. Calcium score guidelines: Total Score* Calcium Plaque [place] ??*Risk ?*Probability of significant CAD 0 ?No Plaque ?Very Low ? Very unlikely 1-10 ?Minimal Plaque ? Low ?Unlikely 11-100 ?Mild Plaque ?Moderate ? Low likelihood of significant ? stenosis <50% ? 101-400 ? Moderate Plaque ?Moderately High ?Moderate likelihood of ? significant stenosis (>50%) Over 400 ?Extensive Plaque ? High ?High likelihood of ?significant stenosis (>50%) The amount of coronary artery calcification correlates with the severity of coronary atherosclerosis and the probability of future significant event. Calcification is not site specific for stenosis and does not identify non-calcified atherosclerotic plaque, but rather indicates the extent of atherosclerosis in the coronary arteries overall. The score may be used as an indicator for risk factor modification or additional cardiac testing. Significant change in calcium score over time may be indicative of subsequent disease development or useful as a benchmark to assess preventative programs. ===== Procedure Note Tarik Lal MD - 09/09/2019 EXAMINATION: Multislice Helical CT Coronary Calcium Scoring EXAM DATE/TIME: 09/09/2019 11:19 AM REASON FOR EXAM: No current complaints. Self-referral for screening exam. COMPARISON: None TECHNIQUE: Multislice helical CT images of the proximal coronary arterieswith a computer generated calcification score. Automated exposure controlwas utilized for dose reduction. Results: Left main: 0 LAD: 0 Circumflex: 0 Right coronary: 0 Total Score: 0 Comments: Calcified granuloma right upper lung. Calcified granulomacentral right lower lobe. Minimal scattered bibasilar atelectasis. Noabnormal pulmonary nodule or mass. The visualized central airways arepatent. No pericardial effusion. Visualized thoracic aorta normal incaliber throughout with mild calcifications. Limited evaluation of upperabdominal viscera shows no acute abnormalities. Calcium score guidelines: Total Score* Calcium Plaque [place] *Risk *Probability ofsignificant CAD 0 No Plaque Very LowVery unlikely 1-10 Minimal Plaque LowUnlikely 11-100 Mild Plaque ModerateLow likelihood of significant stenosis <50% 101-400 Moderate Plaque Moderately HighModerate likelihood of significant stenosis (>50%) Over 400 Extensive Plaque HighHigh likelihood of significant stenosis (>50%) The amount of coronary artery calcification correlates with the severityof coronary atherosclerosis and the probability of future significantevent. Calcification is not site specific for stenosis and does not identify non- calcifiedatherosclerotic plaque, but rather indicates the extent of atherosclerosisin the coronary arteries overall. The score may be used as an indicator for risk factor modification oradditional cardiac testing. Significant change in calcium score over timemay be indicative of subsequent disease development or useful as a benchmark to assess preventativeprograms. ===== IMPRESSION:===== Total Score: 0 No plaque, very low risk, very unlikely for probability ofsignificant CAD Interpreted By: Tarik Lal MD, 09/09/2019 8:35 PM us Jason Winters MD CT Final Resu lt documented in this encounter Visit Diagnoses Diagnosis Screening for heart disease Screening for other and unspecified cardiovascular conditions documented in this encounter Care Teams Weaving Loom Operator Relationship Specialty Start Date End Date Jason Winters MD [address] [place] [id number] PCP - General FAMILY PRACTICE 03/21/16 12/07/20 Regulo Pandey MD [facility]. [facility] [address] [place] [address] [facility] [employer] CARDIOVASCULAR DISEASE 03/21/16 documented as of this encounter
--- OUTSIDE RECORDS SUMMARY | 2024-08-09 17:41 | XMS_ITS | Encounter Summary ---
Author Organization [facility] Address [address] [place] [address]. [place], [place] [id number] [place] [id number] Care Team Providers Care Information Security Analyst Name Role Phone Regulo Pandey MD Unavailable Nabila Mcfadden MD Primary Care Provider [phone] Reason for Referral * Imaging (Routine) - Closed Specialty Diagnoses / Procedures Referred By Dylanac t Referred To Contact RADIOLOGY Diagnoses SVT (supraventricular tachycardia) ([facility]) Procedures XA SVT WPW ABLATION Wen Nelson MD [facility]. [address] [address] Phone: tel: fax: Referral ID Status Reason Start Date Expiration Date Visits Re quested Visits Authorized [id number] Closed 01/26/2021 02/15/2021 1 1 Reason for Visit * Auth/Cert Specialty Diagnoses / Procedures Referred By John bojorquez Referred To Contact Diagnoses SVT (supraventricular tachycardia) ([facility]) Procedures XA SVT WPW ABLATION Referral ID Status Reason Start Date Expiration Date Visits Re quested Visits Authorized [id number] 1 1 Encounter Details Date Type Department Care Team (Late st Contact Info) Description 02/15/2021 10:09 AM CDT - 02/16/2021 9:55 AM CDT Hospital Encounter [facility] Telemetry Unit [address] [place], [place] [id number] Wen Nelson MD [facility] [address] [place] [address] Hector Faust MD [address] [facility] [address] [place] [address] Jose Muñoz, JONAH [address] [place], [place] [id number] Discharge Disposition: Home or Self Care (Routine [...] How often do you attend chur or anglican services? More than 4 times per year 02/15/2021 Do you belong to any clubs o r organizations such as yarsani groups, unions, fraternal or athletic groups, or [...] and heating? Not hard at all 02/15/2021 [facility] of Occupat ional Health - Occupational Stress [...] Sign Reading Time Taken Comments Blood Pressure 115/61 02/16/2021 7:22 AM CDT Pulse 53 02/16/2021 7:22 AM CDT Temperature 36.3 ??C (97.4 ??F) 02/16/2021 7:22 AM CD T Respiratory Rate 18 02/16/2021 7:22 AM CDT Oxygen Saturation 100% 02/16/2021 7:22 AM CDT Inhaled Oxygen Concentration - - Weight 54.1 kg (119 lb 3.2 oz) 02/16/2021 5:00 A M CDT Height 160 cm (5' 3 ) 02/15/2021 11:18 AM CDT Body Mass Index 21.12 02/15/2021 11:18 AM CDT documented in this encounter Functional Status * Question Answer Date of Assessment Author Status Do you have serious difficulty walking or climbing stairs? No 02/15/2021 5:41 PM CDT hSruthi Crane RN Act carlos * Question Answer Date of Assessment Author Status Do you have difficulty dressing or bathing? No 02/15/2021 5:41 PM CDT Shruthi Crane RN Active Because of a physical, mental, or emotional condition, do you have difficulty doing errands alone such as visiting a doctor's office or shopping? No 02/15/2021 5:41 PM CDT Shruthi Crane RN Acti ve * RETIRED Are you [...] Assessment Author Status No 02/15/2021 5:41 PM Shruhti Banda RN Active * Do you have [...] Banda RN Active documented in this encounter Discharge Summaries * CHRIS Kinney - 02/16/2021 8:46 AM CDTSummary: s/p ablation Electrophysiology Progress Note Reason for follow up: S/p ablation Primary Certified Emergency Vehicle Technician: Dannie EP Certified Emergency Vehicle Technician: Leslie CC: Escobar Conn is a 85-year-old female patient with history of SVT, underwent ablation yesterday with Dr. Nelson. Assessment/Plan: SNOMED CT(R) 1. Typical atrial flutter (CMS/HCC) TYPICAL ATRIAL FLUTTER 2. SVT (supraventricular tachycardia) (CMS/HCC) SUPRAVENTRICULAR TACHYCARDIA 1. SVT, Typical atrial flutter s/p ablation - Eliquis 5 mg BID for anticoagulation -Follow up with Dr. Nelson in 1 month -Post care reviewed with patient and her family. Subjective: Patient feeling well. Denies chest pain, shortness of breath, or pain in her groins. Her daughter and granddaughter are with her. Review of Systems Constitutional: Negative for fever and malaise/fatigue. HENT: Negative for hearing loss, nosebleeds and sore throat. Eyes: Negative for blurred vision and double vision. Respiratory: Negative for cough and shortness of breath. Cardiovascular: Negative for chest pain, palpitations, claudication and leg swelling. Gastrointestinal: Negative for blood in stool, heartburn and nausea. Genitourinary: Negative for dysuria and urgency. Musculoskeletal: Negative for back pain and myalgias. Skin: Negative for rash. Neurological: Negative for dizziness, sensory change, speech change, focal weakness and loss of consciousness. Endo/Heme/Allergies: Does not bruise/bleed easily. ??? apixaban 5 mg Oral BID ??? B pxvvafz-R-dfgua acid 0.8 mg 1 tablet Oral Daily ??? levothyroxine 50 mcg Oral QAM ??? LORazepam 0.5 mg Oral Nightly at bedtime ??? vitamin D3 (cholecalciferol) 2,000 Units Oral Daily acetaminophen, ondansetron Allergies Allergen Reactions ??? Clarithromycin Anaphylaxis and Hives ??? Metronidazole Hives ??? Sulfa Antibiotics Hives ??? Chloramphenicol Other (see comment) Damaged liver and wiped out white blood cells Objective: Blood pressure 115/61, pulse 53, temperature 97.4 ??F (36.3 ??C), temperature source Oral, resp. rate 18, height 5' 3 (1.6 m), weight 54.1 kg (119 lb 3.2 oz), SpO2 100 %. Physical Exam Constitutional: She is oriented to person, place, and time. She appears well- developed and well-nourished. No distress. HENT: Nose: No mucosal edema. Mouth/Throat: Oropharynx is clear and moist and mucous membranes are normal. No oropharyngeal exudate. Neck: No JVD present. Carotid bruit is not present. Cardiovascular: Normal rate, regular rhythm, S1 normal, S2 normal and intact distal pulses. No extrasystoles are present. Exam reveals no gallop. No murmur heard. Pulmonary/Chest: Effort normal and breath sounds normal. No respiratory distress. She has no wheezes. She has no rales. Abdominal: Soft. Bowel sounds are normal. She exhibits no distension. There is no hepatosplenomegaly. Musculoskeletal: General: No deformity or edema. Cervical back: Neck supple. Neurological: She is alert and oriented to person, place, and time. Skin: Skin is warm and dry. No erythema. Groins bilaterally: Mild bruising, no bruits, good distal pulses. Psychiatric: She has a normal mood and affect. Her behavior is normal. Thought content normal. Vitals reviewed. Labs: Recent Labs Lab 02/15/21 1012 WBC 6.2 RBC 4.58 HGB 14.2 HCT 43.5 MCV 95.0 MCH 31.0 MCHC 32.6 PLT 229 RDW 13.9 MPV 10.6 PERNEU 54.1 PERLYM 37.2 PERMON 6.9 LYMC 2.31 MONOC 0.43 EOSC 0.06 BASOC 0.04 DTYPE AUTOMATED DIFFERENTIAL Recent Labs Lab 02/15/21 1012 NA 139 K 4.2 CL 106 CO2 27.7 AGAP 5.3 BUN 16 CR 0.77 BUNCREATININ 20.7 GFRNON 71* GFR 82* GLU 83 CA 9.7 Recent Labs Lab 02/15/21 1012 INR 1.0 Recent Labs Lab 02/15/21 1012 NA 139 K 4.2 CL 106 CO2 27.7 BUN 16 CR 0.77 CA 9.7 GLU 83 AGAP 5.3 WBC 6.2 HGB 14.2 PLT 229 Invalid input(s): TROPONIN No results found for this visit on 02/15/21 (from the past 8736 hour(s)). No results found for this visit on 02/15/21 (from the past 8736 hour(s)). EKG: Results for orders placed or performed during the hospital encounter of 02/15/21 ECG 12 lead Narrative [address] Test Date: 2021-02-15 Pat Name: ESCOBAR CONN Department: Room: A418 Gender: Female Medical Equipment Repair Technician: ROSIE : 1935 Requested By: WEN NELSON Order Number: [id number] Reading MD: Loretta Tesfaye Measurements Intervals [place] Rate: 45 P: 29 MS: 176 QRS: 40 QRSD: 83 T: 43 QT: 436 QTc: 379 Interpretive Statements SINUS BRADYCARDIA SEPTAL MYOCARDIAL INFARCTION , OF INDETERMINATE AGE Compared to ECG 12/08/2020 09:55:44 No significant changes ECG 12 lead - Today Narrative [facility] Test Date: 2021-02-15 Pat Name: ESCOBAR CONN Department: Room: A418 Gender: Female Medical Equipment Repair Technician: LOGAN : 1935 Requested By: WEN NELSON Order Number: [id number] Reading MD: Loretta Tesfaye Measurements Intervals [place] Rate: 46 P: 21 MS: 175 QRS: 42 QRSD: 87 T: 37 QT: 498 QTc: 438 Interpretive Statements SINUS BRADYCARDIA WITH SINUS ARRHYTHMIA SEPTAL MYOCARDIAL INFARCTION, OF INDETERMINATE AGE Compared to ECG 02/15/2021 11:17:23 No significant changes Tele:SR Data Reviewed: Echo 12/25/20 The left ventricular systolic function is normal. [...] 30-40 mmHg suggestive of mild pulmonary hypertension. CHRIS KINNEY Cosigned by Wen Nelson MD at 02/16/2021 4:58 PM CDT Associated attestation - Wen Nelson MD - 02/16/2021 4:58 PM CDT IWEN MD, performed an examination of the patient and discussed the management withthe Advanced Practice Provider (IZZY). I reviewed the IZZY's progress note and agree with the findings and plan of care, except as I have documented. documented in this encounter Discharge Instructions * Attachments The following attachments cannot be sent through Care Everywhere. * Supraventricular Tachycardia (SVT) ([place]) * Atrial Fibrillation Discharge Instructions ([place]) * CARDIAC CATHETER ABLATION (KHMER) * Cardioversion ([place]) * Apixaban, ADULT ([place]) documented in this encounter Medications at Time [...] 04/05/2016 1 documented as of this encounter Progress Notes * Eliu Morton RN - 02/16/2021 9:54 AM CDT NCM performed interview with patient, up independent in her room, daughter and grand daughter also present. Pt name, verified. ? Home: alone Ambulation: Reports independent prior to admission. DME products: none ADLs: Reports independent prior to admission. Drives: yes Transport Home: daughter Skin/Bladder/Bowel: No deficits reported. A/O: Answers questions with intent and clarity. Communication: No deficits noted or reported. Home Health: Declined Occupation: retired Address: Verified as per chart. Pharmacy: [facility] [place] PCP: Nabila Mcfadden Insurance Plan: Med Replace [facility] Financial: Denies any concerns. CM priced eliquis, $570 without insurance and $72.51 for 30 supply after insurance, per pharmacistJose Daniel. Patient provided a one time 30 day free coupon card. Discharge needs: Care Coordination Team will provide discharge planning as needed, and will re-evaluate based on recommendations and treatment course. Patient requests to sign release for medical records. Aware she will not receive records today. Signed release placed in patient folder. 02/16/21 0953 Referral Data Referral Reason Discharge Planning Source of Information Patient Patient Information Primary Caregiver Self Support System Immediate family Baseline ADL's Functional Status Independent Living Arrangements Alone Type of Residence Private residence Behavior Oriented;Cooperative Communication Talks;Understands speaking;Understands Citizen Of [place] Anticipated DC Plan Living Arrangements Alone Support Systems Children;Family members Type of Residence Private residence Patient expects to be discharged to: Home documented in this encounter H&P Notes * Wen Nelson MD - 02/15/2021 1:22 PM CDT HISTORY AND PHYSICAL INTERVAL NOTE: I have reviewed Escobar Conn History & Physical which was performed within the past 30 days. After examining Escobar Conn, no change has occurred in the patient's condition since the H&P was completed. Informed Consent Discussion: Potential benefits, risks, and side effects of the patient's procedure/surgery; the likelihood of the patient achieving his or her goals; and any potential problems that might occur during recuperation were discussed with the patient/family/personal ambulatory service representative. Reasonable alternatives to the patient's proposed procedure/surgery including benefits, risks, and side effects related to the alternatives and the risks related to not receiving the proposed care were also discussed with the patient/family/personal ambulatory service representative. Questions were answered and the patient /family/personal ambulatory service representative verbalized understanding and desires to proceed. Source Note - Wen Nelson MD - 01/26/2021 1:00 PM CDT Images from the original note were not included. [place], [place] [address] Cardiac Electrophysiology Outpatient Progress Note Patient name: Escobar Conn Primary Certified Emergency Vehicle Technician: Regulo Pandey MD Primary Care Provider: NABILA MCFADDEN MD Chief Complaint: To discuss ablation procedure History of Present Illness/Interval History Escobar Conn [...] hypertension. EKG: SB, RV conduction delay, septal OK (old) Other Imaging: CT calcium score: Total Score: 0 No plaque, very low risk, very unlikely for probability of significant CAD Wen Nelson MD [facility] Cardiac Electrophysiology ; ext. [phone] Pager: [phone] 11:13 PM documented in this encounter OR Notes * Brief Op Note - Wen Nelson MD - 02/15/2021 4:27 PM CDT ELECTROPHYSIOLOGY SERVICE: POST-AT/AFL ABLATION PROCEDURE NOTE Procedure Date: 02/15/2021 Crystal Machining Coordinator(s): Wen Nelson MD Anesthesia: General anesthesia (see anesthesiology note for medications/doses). Pre-Op Diagnosis: SVT Post-Op Diagnosis: PAF Atrial tachycardia Atrial flutter Procedure: 1. Electrophysiologic study 2. Electroanatomic mapping 3. Ablation of focal RA tachycardia 4. Typical flutter ablation 5. DCCV Access: RFV1: 7F RFV2: 8F LFV1: 6F LFV2: 6F Brief Summary: Immediately prior to the procedure, the patient was re-assessed. As there was no change in his clinical status, it was deemed appropriate to proceed with the planned surgical procedure with the previously derived conscious sedation assessment. After obtaining informed consent and applying strict sterile protocol, the above mentioned venous access was obtained via the modified Seldinger technique. There was difficulty advancing the catheterup the right iliac vein and a long sheath was needed. Catheters were introduced and positioned in the coronary sinus, right ventricle, right atrium and His positions. During the initial catheter entering the RA the patient immediately went into atrial fibrillation. After some time of waiting for this to spontaneously resolve the patient underwent external cardioversion in order to complete the EPstudy. Programmed stimulation was performed and supraventricular tachycardia consistent with an atrial tachycardia. Atrial cycle length did vary. RV Overdrive pacing did show VA dissociation. Te was earliest atrial activation on the proximal His recordings. A 4 mm ablation catheter was advanced to the RA and mapping was performed which showed earliest atrial activation in the RA septum. The patient was only having brief non sustained atrial runs on isoprel at this point. Ablation here was with bursts of ectopy. Ultimately the patient went into an atrial flutter after several lesions. Activation mapping of this was consistent with CTI CW dependent atrial flutter. A decision was made to perform a CTI ablation. The 4 mm ablation catheter was exchanged for a thermacool smart touch ablation catheter. This was brought into the RA via the Agilis sheath and placed along the lateral tricuspid annulus. Ablation at 30W was performed while withdrawing the cathter to the IVC. During ablation of the CTI the patient went back into atrial fibrillation. However, this ultimately, required several card ioversion attempts which there was ERAF. Eventually two separate 150 mg IV amiodarone boluses were administered by anesthesia to allow successful cardioversion at 360 J. Block across the CTI line wasnot confirmed initially and additional ablation was needed. At this point given recurrent AF on with just minimal catheter manipulation the procedure was completed. Manual pressure was held for venous hemostasis. Complications: None EBL: minmal Specimens removed: none Other Medications: Heparin, isoproterenol Post-Ablation Care: 1. Admit as inpatient for continuous rhythm monitoring and initiation of anticoagulation. 2. Bedrest for 4 hours, keeping legs as still as possible. 3. May elevate head-of-bed 30 degrees. 4. Resume diet. 5. Anticoagulation: start eliquis 5 mg bid for PAF. 6. Ultimately if continued symptoms, strong consideration will be need to me made to PVI procedure vs pacemaker and antiarrhythmic drug therapy 7. Follow-up in 4 weeks Wen Nelson MD [facility] Cardiac Electrophysiology Pager: [phone] documented in this encounter Plan of Treatment Not on file documented as of this encounter Procedures Procedure Name Priority Date/Time Associated Diagnosis Comments ECG 12-LEAD Routine 02/15/2021 4:53 PM CDT Typical atrial flutter (CMS/HCC HHS/HCC) XA SVT WPW ABLATION Routine 02/15/2021 4 :31 PM CDT SVT (supraventricular tachycardia) ECG 12-LEAD STAT 02/15/2021 11:17 AM CDT SVT (supraventricular tachycardia) documented in this encounter Results * ECG 12 lead - Today (02/15/2021 4:53 PM CDT) 02/15/2021 4:53 PM CDT Narrative [facility] - 02/15/2021 10:48 PM CDT ?[facility] ? [address] [place] ? Test Date: ?2021-02-15 Pat Name: ? ESCOBAR CONN ? Department: ? Room: ? A418 Gender: ? Female ? Medical Equipment Repair Technician: ?? SH : ?1935 ? Requested By: WEN LESLIE Order Number: [id number] ? Reading MD: ?? Loretta Mera ? Measurements Intervals ?[place] ? Rate: ? 46 ? P: ?21 MS: ? 175 ?QRS: ?42 QRSD: ? 87 ? T: ?37 QT: ? 498 ? QTc: ?438 ? Interpretive Statements SINUS BRADYCARDIA WITH SINUS ARRHYTHMIA SEPTAL MYOCARDIAL INFARCTION, OF INDETERMINATE AGE Compared to ECG 02/15/2021 11:17:23 No significant changes Procedure Note Loretta Tesfaye MD - 02/15/[address] Test Date: 2021-02-15 Pat Name: ESCOBAR CONN Department: Room: A418 Gender: Female Medical Equipment Repair Technician: : 1935 Requested By: WEN NELSON Order Number: [id number] Reading MD: Loretta Tesfaye Measurements Intervals [place] Rate: 46 P: 21 MS: 175 QRS: 42 QRSD: 87 T: 37 QT: 498 QTc: 438 Interpretive Statements SINUS BRADYCARDIA WITH SINUS ARRHYTHMIA SEPTAL MYOCARDIAL INFARCTION, OF INDETERMINATE AGE Compared to ECG 02/15/2021 11:17:23 No significant changes us Wen Nelson MD ECG ORDERABLES Final Resul t [facility] RAD * XA SVT WPW ABLATION (02/15/2021 4:31 PM CDT) Anatomical Region Laterality Modality Cardiac Cloth Printer Helper Narrative 02/17/2021 2:55 PM CDT [facility] CARDIAC CATHETERIZATION/EP LAB [phone] x [phone] SVT Ablation Patient? s Name: ?? Escobar Conn Date of : ?? 1935 Medical Record: ??#[id number] Account: ??#[id number] Physician: ??Wen Nelson MD Date: ?? 02/15/2021 Procedure: ?? #1111 History: 85-year-old female with paroxysmal supraventricular tachycardia. [...] ms QRS ??95 ms QT ??466 ms MS ??163 ms AH ?? 89 ms HV [...] complications. Follow-up in 6 weeks. MD MISTI Lemos/jeremy Interpreted: ?02/15/21 Transcribed: ??02/16/21 us Wen Nelson MD EDUCATION AND DEVELOPMENT MANAGER Final Resul t * ECG 12 lead (02/15/2021 11:17 AM CDT) 02/15/2021 11:1 7 AM CDT Narrative [facility] - 02/15/2021 10:49 PM CDT ?[facility] ? [address] [facility] ? Test Date: ?2021-02-15 Pat Name: ? ESCOBAR CONN ? Department: ? Room: ? A418 Gender: ? Female ? Medical Equipment Repair Technician: ?? JMV : ?1935 ? Requested By: WEN NELSON Order Number: [id number] ? Reading : ?? Loretta Tesfaye ? Measurements Intervals ?[place] ? Rate: ? 45 ? P: ?29 MS: ? 176 ?QRS: ?40 QRSD: ? 83 ? T: ?43 QT: ? 436 ? QTc: ?379 ? Interpretive Statements SINUS BRADYCARDIA SEPTAL MYOCARDIAL INFARCTION , OF INDETERMINATE AGE Compared to ECG 12/08/2020 09:55:44 No significant changes Procedure Note Loretta Tesfaye MD - 02/15/[address] [place] Test Date: 2021-02-15 Pat Name: ESCOBAR CONN Department: Room: A418 Gender: Female Medical Equipment Repair Technician: ROSIE : 1935 Requested By: WEN NELSON Order Number: [id number] Reading MD: Loretta Tesfaye Measurements Intervals [place] Rate: 45 P: 29 MS: 176 QRS: 40 QRSD: 83 T: 43 QT: 436 QTc: 379 Interpretive Statements SINUS BRADYCARDIA SEPTAL MYOCARDIAL INFARCTION , OF INDETERMINATE AGE Compared to ECG 12/08/2020 09:55:44 No significant changes us Wen Nelson MD ECG ORDERABLES Final Resul t [facility] documented in this encounter Visit Diagnoses Diagnosis Typical atrial flutter (CMS/HCC HHS/HCC)- Primary Atrial flutter SVT (supraventricular tachycardia) ([facility] HHS/HCC) Other specified cardiac dysrhythmias documented in this encounter Administered Medications Inactive Administered Medications - up to 3 most recent administrations Medication Order MAR Action Action Date Dose Rate Site acetaminophen (TYLENOL) tablet 650 mg 650 mg, Oral, Once as needed, Mild pain (Scale 1 - 3), 1 dose, Starting on Mon02/15/21 at 1645, Until Mon02/15/21 at 1703, Maximum dose of acetaminophen is 4000 mg from all sources in 24 hours., PACU Given 02/15/2021 5:03 PM CDT 650 mg apixaban (ELIQUIS) tablet 5 mg 5 mg, Oral, 2 times daily, First dose on Mon02/15/21 at 1800, Until Discontinued, Post-Op Given 02/16/2021 9:06 AM CDT 5 mg Given 02/15/2021 6:30 PM CDT 5 mg heparin (porcine) 1000 UNIT/ML injection 1 dose, Starting on Mon02/15/21 at 1030, Until Mon02/15/21 at 1356, Created by cabinet override, Intra-Op Given 02/15/2021 1:56 PM CDT Heparin (Porcine) 1000-0.9 UT/500ML-% infusion 1 dose, Starting on Mon02/15/21 at 1030, Until Mon02/15/21 at 1355, Created by cabinet override, Intra-Op New Bag 02/15/2021 1:55 PM CDT 3,000 Units isoproterenol (ISUPREL) 0.2 MG/ML injection 1 dose, Starting on Mon02/15/21 at 1333, Until Mon02/15/21 at 1456, Created by cabinet override, Intra-Op Given 02/15/2021 2:56 PM CDT 1 mg levothyroxine (SYNTHROID) tablet 50 mcg 50 mcg, Oral, Every morning, First dose on Mon02/16/21 at 0700, Until Discontinued, Avoid iron, calcium, and antacids within 4 hours of administration., Post-Op Given 02/16/2021 6:24 AM CDT 50 mcg lidocaine (XYLOCAINE) 1 % injection SOLN 1 dose, Starting on Mon02/15/21 at 1030, Until Mon02/15/21 at 1355, Created by cabinet override, Intra-Op Given 02/15/2021 1:55 PM CDT 20 mLs LORazepam (ATIVAN) tablet 0.5 mg 0.5 mg, Oral, Nightly at bedtime, First dose on Mon02/15/21 at 2100, Until Discontinued, Post-Op Given 02/15/2021 9:25 PM CDT 0.5 mg sodium chloride 0.9 % infusion 1 dose, Starting on Mon02/15/21 at 1333, Until Mon02/15/21 at 1355, Created by cabinet override, Intra-Op New Bag 02/15/2021 1:55 PM CDT 1,250 mLs documented in this encounter Active and Recently Administered Medications Times are shown in CDT. Scheduled Medication Order 02/14/2021 02/15/2021 02/16/2021 apixaban (ELIQUIS) tablet 5 mg 5 mg, Oral, 2 times daily, First dose on Mon02/15/21 at 1800, Until Discontinued, Post-Op 1830 (Given - Provider: Vicenta Vazquez RN) 0906 (Given - Provider: Vicenta Vazquez RN) B sjkkdvu-K-ontkv acid 0.8 mg (DIALYVITE/NEPHRO-JOSE) tablet 1 tablet 1 tablet, Oral, Daily, First dose on Mon02/15/21 at 1800, Until Discontinued, Post-Op 1817 (Not Given - Provider: Shruthi Crane RN - Reason: Patient/family declined) 0849 (Not Given - Provider: Vicenta Vazquez RN - Reason: Patient/family declined) levothyroxine (SYNTHROID) tablet 50 mcg 50 mcg, Oral, Every morning, First dose on Mon02/16/21 at 0700, Until Discontinued, Avoid iron, calcium, and antacids within 4 hours of administration., Post-Op 623 (Given - Provid er: Elizabeth Anderson RN) LORazepam (ATIVAN) tablet 0.5 mg 0.5 mg, Oral, Nightly at bedtime, First dose on Mon02/15/21 at 2100, Until Discontinued, Post-Op 2124 (Given - Provider: Elizabeth Anderson RN) vitamin D3 (cholecalciferol) tablet 2,000 Units 2,000 Units, Oral, Daily, First dose on Mon02/15/21 at 1800, Until Discontinued, 1000 units = 25 mcg, Post-Op 1818 (Not Given - Provider: Shruthi Crane RN - Reason: Patient/family declined) 0850 (Not Given - Provider: Vicenta Vazquez RN - Reason: Patient/family declined) PRN Medication Order 02/14/2021 02/15/2021 02/16/2021 acetaminophen (TYLENOL) tablet 650 mg (COMPLETED) 650 mg, Oral, Once as needed, Mild pain (Scale 1 - 3), 1 dose, Starting on Mon02/15/21 at 1645, Until Mon02/15/21 at 1703, Maximum dose of acetaminophen is 4000 mg from all sources in 24 hours., PACU 1703 (Given - Provider: Andreina Livingston RN - Comment: anticipatory pain) acetaminophen (TYLENOL) tablet 650 mg 650 mg, Oral, Every 6 hours PRN, Mild pain (Scale 1 - 3), Starting on Mon02/15/21 at 1700, Until Mon02/16/21 at 1155, Maximum dose of acetaminophen is 4000 mg from all sources in 24 hours., Post-Op ondansetron (ZOFRAN) injection 4 mg 4 mg, Intravenous, Every 8 hours PRN, Nausea, Vomiting, Starting on Mon02/15/21 at 1737, Until Mon02/16/21 at 1155, IV push over 2-5 minutes., Post-Op No Frequency Medication Order 02/14/2021 02/15/2021 02/16/2021 heparin (porcine) 1000 UNIT/ML injection (COMPLETED) 1 dose, Starting on Mon02/15/21 at 1030, Until Mon02/15/21 at 1356, Created by cabinet override, Intra-Op 135 (Given - Provider: Camila Ramirez RN) Heparin (Porcine) 1000-0.9 UT/500ML-% infusion (COMPLETED) 1 dose, Starting on Mon02/15/21 at 1030, Until Mon02/15/21 at 1355, Created by cabinet override, Intra-Op 135 (New Bag - Provider: Chica Ramirez RN) isoproterenol (ISUPREL) 0.2 MG/ML injection (COMPLETED) 1 dose, Starting on Mon02/15/21 at 1333, Until Mon02/15/21 at 1456, Created by cabinet override, Intra-Op 145 (Given - Provider: Camila Ramirez RN) lidocaine (XYLOCAINE) 1 % injection SOLN (COMPLETED) 1 dose, Starting on Mon02/15/21 at 1030, Until Mon02/15/21 at 1355, Created by cabinet override, Intra-Op 135 (Given - Provider: Camila Ramirez RN) sodium chloride 0.9 % infusion (COMPLETED) 1 dose, Starting on Mon02/15/21 at 1333, Until Mon02/15/21 at 1355, Created by cabinet override, Intra-Op 135 (New Bag - Provider: Chica Ramirez RN) documented in this encounter Care Teams Information Security Analyst Relationship Specialty Start Date End Date Nabila Mcfadden MD [address] [place] [address] PCP - General INTERNAL MEDICINE 12/08/20 Regulo Pandey MD [address] [address] [place] Certified Emergency Vehicle Technician CARDIOVASCULAR DISEASE 03/21/16 documented as of this encounter
--- OUTSIDE RECORDS SUMMARY | 2024-08-09 17:41 | XMS_ITS | Encounter Summary ---
Author Organization [facility] Address [address] [place] [address]. [place], [place] [address] [place] [address] Care Team Providers Care Director Biologics Name Role Phone Regulo Pandey MD Unavailable Nabila King MD Primary Care Provider [phone] Encounter Details Date Type Department Care Team (Latest Contact Info) Description 03/22/2021 Travel Social History Tobacco Use Types Packs/Day [...] week 02/15/2021 How often do you attend [facility] or mandaen services? More than 4 times per year 02/15/2021 Do you belong to any clubs o r organizations such as adventist groups, unions, fraternal or athletic groups, or [...] heating? Not hard at all 02/15/2021 [facility] - Occupational [...] place to sleep or slept in a skilled nursing (including now)? No 02/15/2021 Comments No Sex [...] on filedocumented in this encounter Care Teams Director Biologics Relationship Specialty Start Date End Date Nabila King MD [address] [place] [address] PCP - General INTERNAL MEDICINE 12/08/20 Regulo Pandey MD Three [facility]. [address] [place] [address] Charlotte Boat Detailer CARDIOVASCULAR DISEASE 03/21/16 documented as of this encounter
--- OUTSIDE RECORDS SUMMARY | 2024-08-09 17:41 | XMS_ITS | Encounter Summary ---
Author Organization [facility] Address [address] [place] [address]. [place] [address] [place] [address] Care Team Providers Care Client Manager Name Role Phone Regulo Pandey MD Unavailable Nabila King MD Primary Care Provider [phone] Reason for Visit * Reason Onset Date Comments Refill Request 10/04/2021 [email or web address] Encounter Details Date Type Department Care Team (Late st Contact Info) Description 10/04/2021 Telephone [facility] [address] Carmelina Suarez RN Refill Request ([email or web address]) Social History Tobacco Use Types Packs/Day Years [...] often do you attend chur ch or scientology services? More than 4 times per year 02/15/2021 Do you belong to any clubs o r organizations such as anabaptist groups, unions, fraternal or athletic groups, or [...] and heating? Not hard at all 02/15/2021 [facility] Occupat ional Health - Occupational Stress [...] place to sleep or slept in a penitentiary (including now)? No 02/15/2021 Comments No Sex [...] on filedocumented in this encounter Care Teams Client Manager Relationship Specialty Start Date End Date Nabila King MD [address] [place] [address] PCP - General INTERNAL MEDICINE 12/08/20 Regulo Pandey MD [facility]. [address] [place] [address] Margaret Insurance Risk Manager CARDIOVASCULAR DISEASE 03/21/16 documented as of this encounter
--- OUTSIDE RECORDS SUMMARY | 2024-08-09 17:41 | XMS_ITS | Encounter Summary ---
Author Organization [facility] Address [address] [place] [address]. [place] [address] [place] [address] Care Team Providers Care Obstetrics Nurse Practitioner Name Role Phone Regulo Pandey MD Unavailable Nabila King MD Primary Care Provider [phone] Reason for Visit * Reason Onset Date Comments Information 07/23/2021 Encounter Details Date Type Department Care Team (Late st Contact Info) Description 07/23/[address] [id number] Vanessa Lucia RN Information Social History Tobacco [...] often do you attend chur ch or quaker services? More than 4 times per year 02/15/2021 Do you belong to any clubs o r organizations such as moravian groups, unions, fraternal or athletic groups, or [...] and heating? Not hard at all 02/15/2021 [facility] of Occupat ional Health - Occupational Stress [...] place to sleep or slept in a senior care (including now)? No 02/15/2021 Comments No Sex [...] COVID-19? No / Unsure 07/22/2021 11:04 AM METAL SPRAYER MACHINED PARTS documented as of this encounter Functional Status [...] documented in this encounter Progress Notes * CHRIS Vieyra - 07/23/2021 4:11 PM CST I was able to reach her and answered her questions. L SPRAYER MACHINED PARTS * CHRIS Vieyra - 07/23/2021 3:16 PM CST Called at 3:15 pm. Rang and rang and then eventually it hung up. No machine. Will try to call againbefore I leave. L SPRAYER MACHINED PARTS * Vanessa Lucia RN - 07/23/2021 9:31 AM CST I received a phone call from the patient requesting to speak with Rosana PEREZ. I asked the patient if there is information I could pass onto the PA. The patient would prefer to speak with the PA becauseshe spoke to her yesterday at the appt. The patient wanted clarification prior to making the decision for the pacemaker. The patient states that she may also need to get ablated and wanted to know ifshe would need to continue her medications for Afib. The patient states that she will be leaving and that the PA could make her the last call of the day. I informed the patient that I will notify thePA. The patient had no further questions. Message to Rosana PEREZ. L SPRAYER MACHINED PARTS documented in this encounter Plan of Treatment Not on file documented as of this encounter Visit Diagnoses Not on filedocumented in this encounter Care Teams Obstetrics Nurse Practitioner Relationship Specialty Start Date End Date Nabila King MD [address] [place] [address] PCP - General INTERNAL MEDICINE 12/08/20 Regulo Pandey MD [facility] [address] [place], [place] [address] [place] Scrap Cutter CARDIOVASCULAR DISEASE 03/21/16 documented as of this encounter
--- OUTSIDE RECORDS SUMMARY | 2024-08-09 17:41 | XMS_ITS | Encounter Summary ---
Author Organization [facility] Address [address] [place] [address]. [place] [address] [place] [address] Care Team Providers Care Devops Engineer Name Role Phone Jason Winters MD Primary Care Provider [phone] Regulo Pandey MD Unavailable Reason for Referral * Imaging (Routine) - Closed Specialty Diagnoses / Procedures Referred By John bojorquez Referred To Contact CARDIOLOGY DIAGNOSTICS Diagnoses Nonrheumatic aortic valve insufficiency Procedures USE ECHOCARDIOGRAM OUS P ECHO XTHOR COM W DOPPLER Renetta Madsen ANP-BC [facility]. [address] [address] Phone: tel: fax: [place] [address] Phone: tel: Referral ID Status Reason Start Date Expiration Date Visits Re quested Visits Authorized [id number] Closed 05/22/2018 06/22/2018 1 1 Reason for Visit * Imaging (Routine) - Closed Specialty Diagnoses / Procedures Referred By Contclaudia t Referred To Contact CARDIOLOGY DIAGNOSTICS Diagnoses Nonrheumatic aortic valve insufficiency Procedures USE ECHOCARDIOGRAM OUS P ECHO XTHOR COM W DOPPLER Renetta Madsen ANP-BC [facility]. [address] [address] Phone: tel: fax: [facility] [place] [address] Phone: tel: Referral ID Status Reason Start Date Expiration Date Visits Re quested Visits Authorized [id number] Closed 05/22/2018 06/22/2018 1 1 Encounter Details Date Type Department Care Team (Late st Contact Info) Description 05/28/2018 10:28 AM CDT - 05/28/2018 11:59 PM CDT Hospital Encounter [facility] [place] [address] Renetta Madsen, ANP-BC [facility]. [address] [place] [address] Discharge Disposition: Home or Self Care (Routine [...] Date/Time Associated Diagnosis Comments USE ECHOCARDIOGRAM Routine 05/28/2018 11 :41 AM CDT Nonrheumatic aortic valve insufficiency documented in this encounter Results * USE ECHOCARDIOGRAM (05/28/2018 11:41 AM CDT) Anatomical Region Laterality Modality Cardiac Echocardiogram 05/28/2018 11:0 9 AM CDT Narrative 05/30/2018 3:13 PM CDT ?Echocardiography Report Pat.Name: ??LISA CONN ? Pat.ID: ?[id number] ? St.Date: ?? 05/28/2018 ? Refer.MD: ??[id number], RENETTA MADSEN Exam Time: 11:09:00 AM ? Study Type:ECHO WITH CARDIAC DOPPLER COMP Height: ?63in ?Weight: ?120.75lb ? BSA: ? 1.56 m2 ?Age: ??1935,82Y ? Sex: ? FEMALE ?BP: ?137/60 ? HR: ?48 bpm ?Sonogrphr: Roxanne, Rosie RDCS ? Pat. Stat.:Outpatient ? Reason for [...] Pandey MD - 05/30/2018 Echocardiography Report Pat.Name: LISA CONN Jennifer Pat.ID: [id number] .Date: 05/28/2018 Steff.: [id number], RENETTA MADSEN Exam Time: 11:09:00 AM Study Type:ECHO WITH CARDIAC DOPPLER COMP Height: 63in Weight: 120.75lb BSA: 1.56 m2 Age: 4 1935,82Y Sex: FEMALE BP: 137/60 HR: 48 bpm Sonogrphr: Rosie Oliveira [facility] Pat. Stat.:Outpatient Reason for Study:Aortic insufficiency Procedures:2D, [...] Signed 05/30/2018 03:13 PM Regulo Pandey M.D. Renetta Madsen ANP-BC ECHO Final Resu lt documented in this encounter Visit Diagnoses Diagnosis Nonrheumatic aortic valve insufficiency Aortic valve disorders documented in this encounter Care Teams Devops Engineer Relationship Specialty Start Date End Date Jason Winters MD [address] [place] [address] PCP - General FAMILY PRACTICE 03/21/16 12/07/20 Regulo Pandey MD [facility] [address] [place] [address] [place] General Assembler Installer CARDIOVASCULAR DISEASE 03/21/16 documented as of this encounter
--- OUTSIDE RECORDS SUMMARY | 2024-08-09 17:41 | XMS_ITS | Encounter Summary ---
Author Organization [facility] Address [address] [place] [address]. [place] [address] [place] [address] Care Team Providers Care Non Destructive Tester Name Role Phone Regulo Pandey MD Unavailable Nabila King MD Primary Care Provider [phone] Encounter Details Date Type Department Care Team (Latest Contact Info) Description 12/08/2020 Travel Social History Tobacco Use Types Packs/Day [...] have Coronavirus / COVID-19? No / Unsure 12/08/2020 9:32 AM CDT documented as of this encounter Plan of Treatment Not on file documented as of this encounter Visit Diagnoses Not on filedocumented in this encounter Care Teams Non Destructive Tester Relationship Specialty Start Date End Date Nabila King MD [address] [place] [address] PCP - General INTERNAL MEDICINE 12/08/20 Regulo Pandey MD [address] [address] [place] [employer] CARDIOVASCULAR DISEASE 03/21/16 documented as of this encounter
--- OUTSIDE RECORDS SUMMARY | 2024-08-09 17:41 | XMS_ITS | Encounter Summary ---
Author Organization [facility] Address [address] [place] [address]. [place], [place] [address] [place] [address] Care Team Providers Care Sports Broadcasting Internship Name Role Phone Regulo Pandey MD Unavailable Nabila King MD Primary Care Provider [phone] Encounter Details Date Type Department Care Team (Latest Contact Info) Description 04/12/2024 Travel Social History Tobacco Use Types Packs/Day [...] week 02/15/2021 How often do you attend [facility] or religion services? More than 4 times per year 02/15/2021 Do you belong to any clubs o r organizations such as spiritism groups, unions, fraternal or athletic groups, or [...] and heating? Not hard at all 02/15/2021 [facility] Occupat ional Health - Occupational [...] place to sleep or slept in a long-term (including now)? No 02/15/2021 Comments No Sex [...] on filedocumented in this encounter Care Teams Sports Broadcasting Internship Relationship Specialty Start Date End Date Nabila King MD [address] [place] [address] PCP - General INTERNAL MEDICINE 12/08/20 Regulo Pandey MD Three [facility]. [id number] [place] [address] [place] Ethics Instructor CARDIOVASCULAR DISEASE 03/21/16 documented as of this encounter
--- OUTSIDE RECORDS SUMMARY | 2024-08-09 17:41 | XMS_ITS | Clinical Summary ---
Author Organization [facility] Address [address] [place] [address]. [place] [address] [place] [address] Care Team Providers Care Welding Machine Operator Resistance Name Role Phone Regulo Pandey MD Unavailable Stacy King MD Primary Care Provider [phone] Allergies Active Allergy Reactions Criticality Noted Date Comments Chloramphenicol Other (see comment) Low 01/13/2021 Damaged liver and wiped out white blood cells Clarithromycin Anaphylaxis,Hives High 04/05/2016 Metronidazole Hives Medium 04/05/2016 Sulfa Antibiotics Hives Medium 04/05/2016 Medications Cholecalciferol (VITAMIN D3) 2000 UNITS Tab Take 1 tablet by mouth daily. 6 Active melatonin 3 MG tablet Take 1 tablet (3 mg total) by mouth nightly at bedtime. 6 Active B Complex Vitamins (VITAMIN B COMPLEX) Tab Take 1 tablet by mouth daily. 6 Active levothyroxine 50 MCG tablet Take 50 mcg by mouth every morning. Take 50mcg and 100mcg alternating days 8 Active apixaban 2.5 MG tablet Take 1 tablet (2.5 mg total) by mouth 2 (two) times daily. 180 tablet 1 2 Active Active Problems Problem Noted Date Diagnosed Date Paroxysmal A-fib ([facility]) 03/19/2021 SVT (supraventricular tachycardia) ([facility]/ [facility]) 03/19/2021 Palpitation 12/16/2020 Acute on chronic diastolic heart failure ([facility]/ [facility]) 12/13/2020 Overview (01/12/2021): 2018 echo (+) diastolic dysfunction and she pulmonary hypertension The left ventricular size is normal. The [...] 30-40 mmHg suggestive of mild pulmonary hypertension. Ventricular septal defect (VSD) ([facility]) 2020 Overview (01/12/2021): Found on echo 2018 associated with pulmonary hypertension Echocardiogram 05/28/2018: The left ventricular size is normal. The [...] 30-40 mmHg suggestive of mild pulmonary hypertension. ASVD (arteriosclerotic vascular disease) 019 Overview (01/25/2021): carotid Doppler (-) 06/17/2019 Less than 50% stenosis bilateral carotid 11/07/2018 CT BRAIN W/O and carotids (+) carotid calcifications and small vessels disease Bilateral vertebral artery calcification Bilateral carotid siphon internal carotid calcifications Chronic small vessels ischemic changes of the vertebral white matter Electronically signed by Kayden Saldivar MD Coronary CT (-) Coronary CT scanned score = 0 Pseudophakia 01/22/2018 Shortness of breath 04/05/2016 Nonrheumatic aortic valve insufficiency 04/05/20 16 Mitral valve disease 09/30/2014 Overview (01/12/2021): Mitral valve disorder Encounters Date Type Department Care Team Description 06/10/2024 11:00 AM CDT - 06/10/2024 11:59 PM CDT Hospital Encounter [facility] [place] [address] Stacy King MD Discharge Disposition: Home or Self Care (Routine Discharge) 06/10/2024 Travel from Last 3 Months Immunizations Name Administration Dates Next Due Dt (1-<7 Y.O.) 03/21/2015 Fluzone High Dose - >Age 65 (Prefilled Syringe) 05/01/2020,06/17/2019 Influenza (Generic) 05/22/2015, 5,06/20/2012,2011 Influenza Adult (Generic) 06/17/2019,,05/03/2018,2017,05/07/2017,05/07/2017,05/08/2016,0 05/08/2016,05/15/2014,05/15/2014 PFIZER COVID-19 (ORIGINAL FORMULATION, PURPLE CAP) mRNA, LNP-S, PF, 30 MCG/0.3 ML DOSE 11/03/2020,10/13/2020 Pneumococcal (Generic) 06/18/2008 Pneumococcal (Prevnar 13) 05/08/2016 Shingrix 05/03/2018,02/02/2018 Family History Relation Status Comments Father (Age 89) had pacemaker Mother (Age 88) Sister Alive Social History Tobacco Use Types Packs/Day Years [...] any clubs o r organizations such as congregation groups, unions, fraternal or athletic groups, or [...] heating? Not hard at all 02/15/2021 [facility] Occupat ional Health - Occupational Stress [...] file Not on file Not on file Last Filed Vital Signs Vital Sign Reading Time Taken Comments Blood Pressure 124/62 07/22/2021 11:25 AM HOME HEALTH ATTENDANT Pulse 57 07/22/2021 11:25 AM HOME HEALTH ATTENDANT Temperature 36.3 ??C (97.4 ??F) 02/16/2021 7:22 AM CD T Respiratory Rate 18 02/16/2021 7:22 AM CDT Oxygen Saturation 97% 07/22/2021 11:25 AM HOME HEALTH ATTENDANT Inhaled Oxygen Concentration - - Weight 55.3 kg (122 lb) 07/22/2021 11:25 AM HOME HEALTH ATTENDANT Height 160 cm (5' 3 ) 07/22/2021 11:25 AM HOME HEALTH ATTENDANT Body Mass Index 21.61 07/22/2021 11:25 AM HOME HEALTH ATTENDANT Plan of Treatment Health Maintenance Due Date Last Done Comments ASCVD LDL 1936 ASCVD Statin 1936 Annual Medicare Wellness Visit 2001 RSV Immunization or 60+ Years (1 - 1-dose 75+ series) 11/12/2011 DTaP, Tdap and Td Vaccines (1 - Tdap) 03/22/2015 03/21/2015 COVID-19 Vaccine ( season) 2024 05/31/2023, 06/21/2022, 01/23/2022, Additional history exists Zoster Vaccines Completed 05/03/2018, 02/02/2018 Pneumococcal Vaccine: 65+ Years Completed 06/05/2022, 05/08/2016 Influenza Adult Completed 04/18/2024, 04/21, 06/17/2019, Additional history exists Meningococcal Vaccine Aged Out No oma dakotah eligible based on patient's age to complete this topic RSV Immunizations Under 20 Months Aged Out No longer eligible based on patient's age to complete this topic Medical Devices Implanted Type Area Robotic Technician Device Identifier Shelf Expiration Date Model / Serial / Lot Lead Implant- 2 Implanted:Qty: 1 on 10/25/2021 by Bc Martinez MD Lead Implant BIOTRONIK SOLIA S [id number] / [id number] / Lead Implant- 2 Implanted:Qty: 1 on 10/25/2021 by Bc Martinez MD Lead Implant BIOT[employer]IK SOLIA S [id number] / [id number] / Pacemaker- 022 Implanted:Qty: 1 on 10/25/2021 by Bc Martinez MD Pacemaker Chest [employer]IK EDORA 8 [id number] [id number] / [id number] / Description:MR Conditional u nder following conditions: Static magnetic field of 1.5 T or 3 T, max spatial gradient field of 3000 gauss/cm or less, Max slew rate 200 T/m/s, Max whole body TOYIN of 2 w/kg or less, Head TOYIN 3.2 W/kg or less, Max 30 minutes active scan time in 60 minute window Procedures Procedure Name Priority Date/Time Associated Diagnosis Comments MRI LUMB SPINE WWO CON SUSANA 06/10/2024 1:32 PM CDT 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 ??Moderate to severe neuroforaminal stenosis on the left at L5/S1 due to disc space narrowing, disc bulging and facet arthropathy. 2. ??No significant lumbar central canal stenosis. 3. ??Grade 1 anterolisthesis at L4/L5. ??No acute osseous abnormality. 4. 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 ??No abnormal enhancement. Referred By: STACY KING Interpreted By: Jimbo Tristan MD, 06/10/2024 3:15 PM Narrative 06/10/2024 3:[address] PM [address] [address] EXAMINATION:MRI lumbar spine with and without contrast 06/10/2024 INDICATION:Chronic back pain TECHNIQUE: Multiplanar multisequence MR imaging lumbar spine was performed prior to and following the administration of 11 mL of Dotarem contrast intravenously. COMPARISON: Lumbar radiographs 06/06/2024 FINDINGS:Last fully formed disc space is presumed represent L5/S1. ??There is 4 mm of anterolisthesis at L4/L5, unchanged. ??There is preservation of vertebral body heights and disc spaces. ??Bone marrow signal is within normal limits with no acute fracture or dislocation. ??There is a 1.6 m lesion within the T12 vertebral body and 1.2 cm lesion within the L1 vertebral body, both of which demonstrate increased T1 and T2 signal, compatible with hemangiomas. No acute fracture or dislocation. ??Modic type I degenerative changes noted at L3/L4 on the right with corresponding enhancement. ??No other abnormal enhancement. The conus terminates at lower L1 level and is unremarkable contour and signal. ??No paraspinal mass or fluid collection the visualized femoral aorta is unremarkable contour. ??The upper sacroiliac joint spaces are unremarkable. T12/L1: Negative L1/L2: Mild disc space narrowing disc bulging, causing minimal effacement of ventral thecal sac. L2/L3: Disc space narrowing disc bulging causing slight effacement of ventral thecal sac L3/L4:: Disc space narrowing disc bulging causing slight effacement of ventral thecal sac L4/L5: Disc space narrowing with grade 1 anterolisthesis, disc bulging and facet arthropathy causing slight effacement of ventral thecal sac and mild bilateral neural foraminal stenosis L5/S1: Disc space narrowing, disc bulging and facet arthropathy causing moderate to severe left neural foraminal stenosis and mild right neural foraminal stenosis. There are multiple Tarlov cyst within the sacral central canal, right greater than left, the largest of which measures up to 2.5 cm. Procedure Note Jimbo Tristan MD - 06/10/2024 [place] [address] EXAMINATION:MRI lumbar spine with and without contrast 06/10/2024 INDICATION:Chronic back pain TECHNIQUE: Multiplanar multisequence MR imaging lumbar spine was performedprior to and following the administration of 11 mL of Dotarem contrastintravenously. COMPARISON: Lumbar radiographs 06/06/2024 FINDINGS:Last fully formed disc space is presumed represent L5/S1. Thereis 4 mm of anterolisthesis at L4/L5, unchanged. There is preservation ofvertebral body heights and disc spaces. Bone marrow signal is withinnormal limits with no acute fracture or dislocation. There is a 1.6 mlesion within the T12 vertebral body and 1.2 cm lesion within the [id number] body, both of which demonstrate increased T1 and T2 signal,compatible with hemangiomas. No acute fracture or dislocation. Modic type I degenerative changes notedat L3/L4 on the right with corresponding enhancement. No other abnormalenhancement. The conus terminates at lower L1 level and is unremarkable contour andsignal. No paraspinal mass or fluid collection the visualized femoralaorta is unremarkable contour. The upper sacroiliac joint spaces areunremarkable. T12/L1: Negative L1/L2: Mild disc space narrowing disc bulging, causing minimal effacementof ventral thecal sac. L2/L3: Disc space narrowing disc bulging causing slight effacement ofventral thecal sac L3/L4:: Disc space narrowing disc bulging causing slight effacement ofventral thecal sac L4/L5: Disc space narrowing with grade 1 anterolisthesis, disc bulging andfacet arthropathy causing slight effacement of ventral thecal sac and mildbilateral neural foraminal stenosis L5/S1: Disc space narrowing, disc bulging and facet arthropathy causingmoderate to severe left neural foraminal stenosis and mild right neuralforaminal stenosis. There are multiple Tarlov cyst within the sacral central canal, rightgreater than left, the largest of which measures up to 2.5 cm. IMPRESSION: 1. Moderate to severe neuroforaminal stenosis on the left at L5/S1 due todisc space narrowing, disc bulging and facet arthropathy. 2. No significant lumbar central canal stenosis. 3. Grade 1 anterolisthesis at L4/L5. No acute osseous abnormality. 4. 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 No abnormalenhancement. Referred By: STACY KING Interpreted By: Jimbo Tristan MD, 06/10/2024 3:15 PM us Stacy King MD MRI Final Result * MRI THOR SPINE WWO CON (06/10/2024 1:31 PM CDT) Anatomical Region Laterality Modality Spine Magnetic Resonan ce 06/10/2024 2:44 PM CDT Impressions 06/10/2024 2:48 PM CDT IMPRESSION: 1. ??Mild Modic type I degenerative changes at T7/T8, left. ??No acute osseous abnormality 2. ??1.1 cm perineural cyst within the right neural foramen at T11/T12 3. ??Very small broad-based disc protrusions at the T6/T7 and T7/T8 causing minimal effacement of ventral thecal sac. ??No significant thoracic central canal stenosis or cord signal normality. Referred By: STACY KING Interpreted By: Jimbo Tristan MD, 06/10/2024 2:44 PM Narrative 06/10/2024 2:[address] PM [address]T [address] [address] EXAMINATION:MRI of the thoracic spine with and without contrast 06/10/24 INDICATION: Thoracic radiculopathy, left upper extremity numbness, chronic back pain TECHNIQUE: Multiplanar multisequence MR imaging of the thoracic spine was performed prior to and following administration of 11 mL of Dotarem contrast intravenously. COMPARISON: Thoracic spine radiographs 07/07/24 FINDINGS:The thoracic spine is in anatomic alignment. ??There is preservation of vertebral body heights and disc spaces. ??Bone marrow signal is within normal limits with no acute fracture or dislocation. ??Mild Modic type I degenerative changes with corresponding enhancement noted at the T7/T8 level on the left. The thoracic spinal cord is unremarkable in course caliber contour and signal. ??Conus terminates at the L1/L2 level. ??There is a 1.2 cm rounded lesion within the L1 vertebral body and a 1.6 cm rounded lesion within the T12 vertebral body, both of which demonstrate increased T1 and T2 signal, compatible with hemangiomas. There are very small broad-based midline disc protrusions at T6/T7 and T7/T8 causing minimal effacement of ventral thecal sac. ??No significant thoracic disc herniation, central canal stenosis or neural foraminal stenosis No paraspinal mass or fluid collection. ??Thoracic aorta is unremarkable in contour. There is a 1.1 cm perineural cyst within the right neural foramen at T11/T12. Procedure Note Jimbo Tristan MD - 06/10/[address] [address] EXAMINATION:MRI of the thoracic spine with and without contrast 06/10/24 INDICATION: Thoracic radiculopathy, left upper extremity numbness, chronicback pain TECHNIQUE: Multiplanar multisequence MR imaging of the thoracic spine wasperformed prior to and following administration of 11 mL of Dotaremcontrast intravenously. COMPARISON: Thoracic spine radiographs 07/07/24 FINDINGS:The thoracic spine is in anatomic alignment. There ispreservation of vertebral body heights and disc spaces. Bone marrowsignal is within normal limits with no acute fracture or dislocation.Mild Modic type I degenerative changes with corresponding enhancementnoted at the T7/T8 level on the left. The thoracic spinal cord is unremarkable in course caliber contour andsignal. Conus terminates at the L1/L2 level. There is a 1.2 cm roundedlesion within the L1 vertebral body and a 1.6 cm rounded lesion within theT12 vertebral body, both of which demonstrate increased T1 and T2 signal,compatible with hemangiomas. There are very small broad-based midline disc protrusions at T6/T7 andT7/T8 causing minimal effacement of ventral thecal sac. No significantthoracic disc herniation, central canal stenosis or neural foraminalstenosis No paraspinal mass or fluid collection. Thoracic aorta is unremarkable incontour. There is a 1.1 cm perineural cyst within the right neural foramen atT11/T12. IMPRESSION: 1. Mild Modic type I degenerative changes at T7/T8, left. No acuteosseous abnormality 2. 1.1 cm perineural cyst within the right neural foramen at T11/T12 3. Very small broad-based disc protrusions at the T6/T7 and T7/T8 causingminimal effacement of ventral thecal sac. No significant thoracic centralcanal stenosis or cord signal normality. Referred By: STACY KING Interpreted By: Jimbo Tristan MD, 06/10/2024 2:44 PM us Stacy King MD MRI Final Result * MRI FACIAL WWO CON (06/10/2024 1:31 PM CDT) Anatomical Region Laterality Modality Facial Magnetic Resonan ce 06/10/2024 2:48 PM CDT Impressions 06/10/2024 2:59 PM CDT IMPRESSION: 1. ??Nonspecific 1.6 x 0.3 x 1.3 cm peripherally enhancing fluid collection along the anterior midline mandibular body suspicious for an abscess in the appropriate clinical setting. ??No adjacent cortical destruction or bone edema. 2. ??Mild mucosal thickening of the inferior left maxillary sinus. Short-term follow-up contrast enhanced maxillofacial CT may be helpful if symptoms persist or progress. Referred By: STACY KING Interpreted By: Jimbo Tristan MD, 06/10/2024 2:48 PM Narrative 06/10/2024 2:59 PM CDT [place] [address] EXAMINATION:MRI of the face with and without contrast 06/10/2024 INDICATION:Dental infection, mouth pain TECHNIQUE: Multiplanar multisequence or imaging of the facial structures was performed prior to and following the administration of 11 mL of Dotarem contrast intravenously. COMPARISON: None FINDINGS:The visualized intracranial contents are unremarkable. ??Orbits and globes are unremarkable. ??Prior left ocular lens replacement noted. ??Expected signal voids are seen within the mastoid air cells and middle ear cavities. ??There is mild mucosal thickening of the left maxillary sinus. ??The nasal septum is deviated towards the right of midline. ??The oral cavity and tongue are unremarkable. ??The nasopharynx oropharynx and hypopharynx are unremarkable. ??Partially visualized upper cervical spine is grossly unremarkable. There are few nonspecific subcentimeter level 1 cervical lymph nodes noted bilaterally. There is a 1.6 x 0.3 x 1.3 cm peripherally enhancing fluid collection along the anterior midline aspect of the mandibular body. ??No adjacent cortical destruction or bone edema. No other discrete facial mass, fluid collection or acute inflammatory changes. ??No abnormal enhancement. ??No definite bone edema appreciated within the mandible or maxilla. ??The anteromedial joint spaces are unremarkable. Procedure Note Jimbo Tristan MD - 06/10/2024 [facility] [address] [place], [place] [address] EXAMINATION:MRI of the face with and without contrast 06/10/2024 INDICATION:Dental infection, mouth pain TECHNIQUE: Multiplanar multisequence or imaging of the facial structureswas performed prior to and following the administration of 11 mL ofDotarem contrast intravenously. COMPARISON: None FINDINGS:The visualized intracranial contents are unremarkable. Orbitsand globes are unremarkable. Prior left ocular lens replacement noted.Expected signal voids are seen within the mastoid air cells and middle earcavities. There is mild mucosal thickening of the left maxillary sinus.The nasal septum is deviated towards the right of midline. The oralcavity and tongue are unremarkable. The nasopharynx oropharynx andhypopharynx are unremarkable. Partially visualized upper cervical spineis grossly unremarkable. There are few nonspecific subcentimeter level 1 cervical lymph nodes notedbilaterally. There is a 1.6 x 0.3 x 1.3 cm peripherally enhancing fluid collectionalong the anterior midline aspect of the mandibular body. No adjacentcortical destruction or bone edema. No other discrete facial mass, fluid collection or acute inflammatorychanges. No abnormal enhancement. No definite bone edema appreciatedwithin the mandible or maxilla. The anteromedial joint spaces areunremarkable. IMPRESSION: 1. Nonspecific 1.6 x 0.3 x 1.3 cm peripherally enhancing fluid collectionalong the anterior midline mandibular body suspicious for an abscess inthe appropriate clinical setting. No adjacent cortical destruction orbone edema. 2. Mild mucosal thickening of the inferior left maxillary sinus. Short-term follow-up contrast enhanced maxillofacial CT may be helpful ifsymptoms persist or progress. Referred By: STACY KING Interpreted By: Jimbo Tristan MD, 06/10/2024 2:48 PM Stacy King MD MRI Final Result from Last 3 Months Insurance [employer] Advance Directives * Full Code (Latest Code Status on File) Date Activated Date Inactivated Comments 02/15/2021 5:38 PM 02/16/2021 12:00 PM Care Teams Welding Machine Operator Resistance Relationship Specialty Start Date End Date Stacy King MD [address] [facility] [address] [place] [address] PCP - General INTERNAL MEDICINE 12/08/20 Regulo Pandey MD [facility]. [facility] [address] [place] [address] [place] Director Of Strategic Communications CARDIOVASCULAR DISEASE 03/21/16
--- OUTSIDE RECORDS SUMMARY | 2024-08-09 17:41 | XMS_ITS | Encounter Summary ---
Author Organization [facility] Address [address] [place] [address]. [place] [address] [place] [address] Care Team Providers Care Cancer Genetic Counselor Name Role Phone Jason Winters MD Primary Care Provider [phone] Regulo Pandey MD Unavailable Reason for Visit * Reason Onset Date Comments Results 06/04/2018 Echocardiogram Encounter Details Date Type Department Care Team (Late st Contact Info) Description 06/04/2018 Telephone [facility] at [facility], [facility] [address] [place], [place] [id number] Renetta Dhillon, ANP-[facility]. [facility] [address] [place] [address] Results (Echocardiogram) Social History Tobacco Use Types Packs/Day Years [...] encounter Progress Notes * LYNNE White - 06/08/2018 9:30 AM CDT Called patient to schedule follow-up appointment for 1-2 years. No answer, no voicemail to leave message. * CHARISSE Hanson - 06/07/2018 3:36 PM CDT Patient notified of results. Advised 1-2 year follow up. Patient verbalized understanding. Requested a copy of the results be mailed to her home. * CHARISSE Hanson - 06/04/2018 2:56 PM CDT Echocardiogram 05/28/2018: The left ventricular size is [...] 30-40 mmHg suggestive of mild pulmonary hypertension. documented in this encounter Plan of Treatment Not on file documented as of this encounter Visit Diagnoses Not on filedocumented in this encounter Care Teams Cancer Genetic Counselor Relationship Specialty Start Date End Date Jason Winters MD [address] [place] [id number] PCP - General FAMILY PRACTICE 03/21/16 12/07/20 Regulo Pandey MD [facility]. [facility] [address] [place] [address] [place] Personal Trainer CARDIOVASCULAR DISEASE 03/21/16 documented as of this encounter
--- OUTSIDE RECORDS SUMMARY | 2024-08-09 17:41 | XMS_ITS | Encounter Summary ---
Author Organization [facility] Address [address] [place] [address]. [place] [address] [place] [address] Care Team Providers Care Accounting Systems Manager Name Role Phone Regulo Pandey MD Unavailable Nabila King MD Primary Care Provider [phone] Reason for Visit * Reason Onset Date Comments Question 02/01/2021 Encounter Details Date Type Department Care Team (Late st Contact Info) Description 02/01/[address] [address] Tierney [place], [place] [address] Question Social History Tobacco Use Types Packs/Day [...] PM CDT documented as of this encounter Progress Notes * CHRIS Vieyra - 02/01/2021 4:43 PM CDT I called and spoke to her and answered her questions. She seemed reassured. * Tierney Rehman RN - 02/01/2021 12:50 PM CDT Received a VM from patient requesting that CHRIS Larson call her. She has several questions about her upcoming ablaion. documented in this encounter Plan of Treatment Not on file documented as of this encounter Visit Diagnoses Not on filedocumented in this encounter Care Teams Accounting Systems Manager Relationship Specialty Start Date End Date Nabila King MD [address] [place] [id number] PCP - General INTERNAL MEDICINE 12/08/20 Regulo Pandey MD [facility]. [facility] [address] [place] [address] [place] Aba Tutor CARDIOVASCULAR DISEASE 03/21/16 documented as of this encounter
--- OUTSIDE RECORDS SUMMARY | 2024-08-09 17:41 | XMS_ITS | Encounter Summary ---
Author Organization [facility] Address [address] [place] [address]. [place], [place] [address] [place] [address] Care Team Providers Care Analysis Mgr Name Role Phone Regulo Pandey MD Unavailable Nabila King MD Primary Care Provider [phone] Encounter Details Date Type Department Care Team (Latest Contact Info) Description 03/16/2021 Travel Social History Tobacco Use Types Packs/Day [...] 02/15/2021 How often do you attend [facility] or shinto services? More than 4 times per year 02/15/2021 Do you belong to any clubs o r organizations such as buddhist groups, unions, fraternal or athletic groups, or [...] heating? Not hard at all 02/15/2021 [facility] - [...] on filedocumented in this encounter Care Teams Analysis Mgr Relationship Specialty Start Date End Date Nabila King MD [address] [place] [address] PCP - General INTERNAL MEDICINE 12/08/20 Regulo Pandey MD [facility]. [address] [place] [address] [place] Contract Administration Coordinator CARDIOVASCULAR DISEASE 03/21/16 documented as of this encounter
--- OUTSIDE RECORDS SUMMARY | 2024-08-09 17:41 | XMS_ITS | Encounter Summary ---
Author Organization [facility] Address [address] [place] [address]. [place] [address] [place] [address] Care Team Providers Care Arts And Crafts Teacher Name Role Phone Regulo Pandey MD Unavailable Nabila King MD Primary Care Provider [phone] Reason for Visit * Reason Onset Date Comments Information 01/19/2021 Encounter Details Date Type Department Care Team (Late st Contact Info) Description 01/19/[address] [address] Vanessa Lucia RN Information Social History Tobacco [...] encounter Progress Notes * CHRIS Vieyra - 01/20/2021 10:14 AM CDTSummary: info I returned the patient's call yesterday. She wanted to let me know she wasn't going to start the metoprolol as she is afraid it will make her feel terrible. Also she wanted to make sure I knew she was hypothyroid which I assured her we have in her chart. * Vanessa Lucia RN - 01/19/2021 2:42 PM CDT I received a voicemail from the patient stating that she just had an appt with Rosana PEREZ and requests to speak with her. The patient has more questions. Message to Rosana PEREZ. documented in this encounter Plan of Treatment Not on file documented as of this encounter Visit Diagnoses Not on filedocumented in this encounter Care Teams Arts And Crafts Teacher Relationship Specialty Start Date End Date Nabila King MD [address] [place] [address] PCP - General INTERNAL MEDICINE 12/08/20 Regulo Pandey MD [facility]. [facility] [address] [place] [address] Margaret Manager Urology CARDIOVASCULAR DISEASE 03/21/16 documented as of this encounter
--- OUTSIDE RECORDS SUMMARY | 2024-08-09 17:41 | XMS_ITS | Encounter Summary ---
Author Organization [facility] Address [address] [place] [address]. [place] [address] [place] [address] Care Team Providers Care Sex Worker Or Escort Name Role Phone Regulo Pandey MD Unavailable Nabila King MD Primary Care Provider [phone] Reason for Visit * Reason Onset Date Comments Information 02/12/2021 verify ablation instructions Encounter Details Date Type Department Care Team (Late st Contact Info) Description 02/12/2021 Telephone [facility] [address] [address] Vanessa Lucia RN Information (verify ablation instructions) Social History Tobacco Use Types Packs/Day Years [...] as of this encounter Progress Notes * Vanessa Lucia RN - 02/12/2021 11:57 AM CDT I called the patient to verify that she received the instructions for her ablation on Monday. The patient will arrive at 10am, nothing to eat or drink after midnight. She does not need to hold any medications. The patient is fully vaccinated with her COVID vaccine so she does not need to have a COVID test. The patient verbalized understanding and had no further questions. documented in this encounter Plan of Treatment Not on file documented as of this encounter Visit Diagnoses Not on filedocumented in this encounter Care Teams Sex Worker Or Escort Relationship Specialty Start Date End Date Nabila King MD [address] [place] [address] PCP - General INTERNAL MEDICINE 12/08/20 Regulo Pandey MD [facility]. [facility] [address] [place] [address] [place] Auto Body Repairer Fiberglass CARDIOVASCULAR DISEASE 03/21/16 documented as of this encounter
--- OUTSIDE RECORDS SUMMARY | 2024-08-09 17:41 | XMS_ITS | Encounter Summary ---
Author Organization [facility] Address [address] [place] [address]. [place] [address] [place] [address] Care Team Providers Care Pneumatic Systems Operator Name Role Phone Regulo Pandey MD Unavailable Stacy King MD Primary Care Provider Encounter Details Date Type Department Care Team (Late st Contact Info) Description 03/23/2021 [facility] Documentation [place] [address] [address] Abstract, Doc [facility] Social History Tobacco Use Types Packs/Day Years [...] often do you attend chur ch or anabaptism services? More than 4 times per year 02/15/2021 Do you belong to any clubs o r organizations such as episcopal groups, unions, fraternal or athletic groups, or [...] and heating? Not hard at all 02/15/2021 [facility] - [...] place to sleep or slept in a mcc (including now)? No 02/15/2021 Comments No Sex [...] Assessment Author Status No 02/15/2021 5:41 PM ARMADNT Shruthi Crane RN Active documented as of this encounter Mental Status * Because of a physical, mental, or emotional condition, do you have serious difficulty concentrating, remembering, or making decisions? Answer Entry Date Author Status No 02/15/2021 5:41 PM CDT Shruthi Crane RN Active documented in this encounter Procedure Notes * Gigi Nelson MD - 03/23/2021 3:50 PM CDTAssociated Order(s): HOLTER MONITOR (ECG) UP TO 48 HRS COMPLETE Images from the original note were not included. [place], [place] [address] HOLTER MONITOR REPORT Patient Name: Lisa Conn : 1935 Marketing Information Analyst Date: 03/22/2021 @ 9:02 AM Performed At: [place], [place] Interpreting Network Security Analyst: Gigi Nelson MD PCP: STACY KING MD Ordering Provider: GIGI NELSON MD INDICATION: Palpitations DURATION OF MONITORIN hours, 09 minutes BASELINE RHYTHM: Sinus rhythm HEART RATE: Minimum: 40 BPM, Maximum: 172 BPM, Average: 59 BPM PAUSES: 0 (> 2.0 seconds) INTERPRETATION: A 24hrs Holter was analyzed which did include a symptom diary. There were 10266 QRS complexes analyzed. The baseline rhythm was sinus rhythm. There were rare isolated premature ventricular contractions (<1%). This included rare ventricular couplets. There was also a modest burden of isolated premature atrial contractions (3.2%). There were occasional supraventricular couplets and 9 supraventricular [...] No atrial fibrillation or flutter observed. Interpreting Network Security Analyst: Dr. Gigi Nelson documented in this encounter Plan of Treatment Not on file documented as of this encounter Procedures Procedure Name Priority Date/Time Associated Diagnosis Comments HOLTER MONITOR (ECG) UP TO 48 HRS COMPLETE Routine 03/23/2021 3:50 PM CDT Palpitation Paroxysmal atrial fibrillation ([facility]/HCC HHS/HCC) documented in this encounter Visit Diagnoses Not on filedocumented in this encounter Care Teams Pneumatic Systems Operator Relationship Specialty Start Date End Date Stacy King MD [address] [place] [address] PCP - General INTERNAL MEDICINE 12/08/20 Regulo Pandey MD Three [facility]. [address] [place] [address] Margaret Network Security Analyst CARDIOVASCULAR DISEASE 03/21/16 documented as of this encounter
--- OUTSIDE RECORDS SUMMARY | 2024-08-09 17:41 | XMS_ITS | Encounter Summary ---
Author Organization [facility] Address [address] [place] [address]. [place] [address] [place] [address] Care Team Providers Care Vending Machine Operator Name Role Phone Regulo Pandey MD Unavailable Stacy King MD Primary Care Provider [phone] Reason for Visit * Reason Comments Atrial Fibrillation 6-month follow-up Encounter Details Date Type Department Care Team (Late st Contact Info) Description 05/10/2021 10:15 AM CDT Office Visit Jolynn Huggins-Jovan talamantes THREE [facility], [facility] [address] [place], [place] [id number] Renetta Dhillon, ANP-BC [facility]. [address] [place], [place] [address] Atrial Fibrillation (6-month follow-up) Social History Tobacco Use Types Packs/Day Years [...] How often do you attend chur or mormon services? More than 4 times per year 02/15/2021 Do you belong to any clubs o r organizations such as oriental orthodox groups, unions, fraternal or athletic groups, or [...] Not hard at all 02/15/2021 [facility] - [...] Sign Reading Time Taken Comments Blood Pressure 122/76 05/10/2021 10:26 AM CDT Pulse 65 05/10/2021 10:26 AM CDT Temperature - - Respiratory Rate - - Oxygen Saturation 97% 05/10/2021 10:26 AM CDT Inhaled Oxygen Concentration - - Weight 53.5 kg (118 lb) 05/10/2021 10:26 AM CDT Height 160 cm (5' 3 ) 05/10/2021 10:26 AM CDT Body Mass Index 20.9 05/10/2021 10:26 AM CDT documented in this encounter Functional [...] documented in this encounter Progress Notes * Renetta Dhillon, JOE- - 05/10/2021 10:15 AM CDT Chief Complaint Patient presents with ??? Atrial Fibrillation 6-month follow-up HISTORY OF PRESENT ILLNESS Lisa Conn is a 85-year-old female who presents today for cardiac evaluation. She is concerned that she is having some side effect from Eliquis. She is feeling dizzy, has a low-grade headache and feels like her legs are weak and shaky. She occasionally has palpitations and she tells me that she feels of her brain does not perfuse well for very short time when she has palpitations. No reported bleeding side effects from anticoagulation. ASSESSMENT/PLAN 1. Paroxysmal atrial fibrillation Short episodes of A. fib. Anticoagulation with Eliquis. 2. Nonrheumatic aortic valve insufficiency Echocardiogram in October 2020 shows moderate aortic regurgitation with preserved LVEF. Asymptomatic at the present time. 3. Orthostatic hypotension She is maintaining adequate blood pressure. RECOMMENDATIONS Lisa Conn is stable from a cardiac standpoint. Prescription medications reviewed with the patient. Advised to continue current medication regimen. She is going to hold Eliquis for a few days to see if any of the side effects clear up but I suspect that the symptoms she is having are not from Eliquis. Counseling given today for risk factor modification, diet, and exercise. Follow up in the office in 6 months. DATA REVIEWED Event monitor 01/08/2021: 1. Event monitor showing sinus rhythm with frequent supraventricular ectopy. 2. Supraventricular ectopy includes numerous short runs of atrial tachycardia along with one 20-minute episode of supraventricular tachycardia. 3. Symptoms correlate to arrhythmias Echocardiogram 12/25/2020: The left ventricular size is [...] 12/25/2020: ?? No abdominal aorta aneurysm present. Echocardiogram 05/28/2018: The left ventricular size is [...] 30-40 mmHg suggestive of mild pulmonary hypertension. Regular treadmill stress test 05/03/2016: 1. Clinically negative. 2. Electrocardiographically negative treadmill test for ischemia. 3. Excellent exercise capacity. 4. Blood pressure response was normal. 5. Taylor Treadmill Score is 7.0, which indicates low risk. Echocardiogram 04/15/2016: The left ventricular size is normal. The left ventricular systolic function is normal. Estimated left ventricular ejection fraction is 55-60%. Mild aortic regurgitation. Mild tricuspid regurgitation. SODIUM Date Value Ref Range Status 02/15/2021 139 136 - 145 MMOL/L Final POTASSIUM Date Value Ref Range Status 02/15/2021 4.2 3.5 - 5.1 MMOL/L Final CHLORIDE S/P/B Date Value Ref Range Status 02/15/2021 106 100 - 108 MMOL/L Final CO2 Date Value Ref Range Status 02/15/2021 27.7 21 - 32 MMOL/L Final BUN Date Value Ref Range Status 02/15/2021 16 7 - 18 MG/DL Final CREATININE S/P/B Date Value Ref Range Status 02/15/2021 0.77 0.55 - 1.02 MG/DL Final CALCIUM Date Value Ref Range Status 02/15/2021 9.7 8.5 - 10.1 MG/DL Final GLUCOSE Date Value Ref Range Status 02/15/2021 83 70 - 99 MG/DL Final ANION GAP Date Value Ref Range Status 02/15/2021 5.3 5 - 15 MMOL/L Final WBC Date Value Ref Range Status 02/15/2021 6.2 4.5 - 11.0 x10'3/uL Final HGB Date Value Ref Range Status 02/15/2021 14.2 12.0 - 16.0 G/DL Final PLT Date Value Ref Range Status 02/15/2021 229 130 - 400 x10'3/uL Final Medications: Current Outpatient Medications: ??? apixaban 2.5 MG tablet, Take 1 tablet (2.5 mg total) by mouth 2 (two) times daily., Disp: 180 tablet, Rfl: 1 ??? B Complex Vitamins (VITAMIN B COMPLEX) Tab, Take 1 tablet by mouth daily., Disp: , Rfl: ??? Cholecalciferol (VITAMIN D3) 2000 UNITS Tab, Take 1 tablet by mouth daily., Disp: , Rfl: ??? levothyroxine 50 MCG tablet, Take 50 mcg by mouth every morning. Take 50mcg and 100mcg alternating days, Disp: , Rfl: ??? melatonin 3 MG tablet, Take 1 tablet (3 mg total) by mouth nightly at bedtime., Disp: , Rfl: Allergies Allergen Reactions ??? Clarithromycin Anaphylaxis and Hives ??? Metronidazole Hives ??? Sulfa Antibiotics Hives ??? 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 Anxiety ??? Hypothyroidism ??? Nonrheumatic aortic (valve) insufficiency History reviewed. No pertinent surgical history. Social History Socioeconomic History ??? Marital status: [...] Social Determinants of Health Financial Resource Strain: Low Risk ??? Difficulty of Paying Living Expenses: Not hard at all Food Insecurity: No Food Insecurity ??? Worried About Running Out of Food in the Last Year: Never true ??? Ran Out of Food in the Last Year: Never true Transportation Needs: No Transportation Needs ??? Lack of Transportation (Medical): No ??? Lack of Transportation (Non-Medical): No Physical Activity: Sufficiently Active ??? Days of Exercise per Week: 5 days ??? Minutes of Exercise per Session: 40 min Stress: No Stress Concern Present ??? Feeling of Stress : Not at all Social Connections: Somewhat Isolated ??? Frequency of Communication with Friends and Family: Three times a week ??? Frequency of Social Gatherings with Friends and Family: Three times a week ??? Attends Jew Services: More than 4 times per year ??? Active Member of Clubs or Organizations: No ??? Attends Club or Organization Meetings: Never ??? Marital Status: Intimate Partner Violence: Not At Risk ??? Fear of Current or Ex-Partner: No ??? Emotionally Abused: No ??? Physically Abused: No ??? Sexually Abused: No No family history on file. Family Status Relation Name Status ??? Mother at age 88 ??? Father at age 89 had pacemaker ??? Sister Alive, age 77y Review of Systems Constitutional: Negative for new or significant fatigue. HENT: Positive for headaches. Eyes: Negative for blurred vision. Respiratory: Negative for new or significant shortness of breath. Cardiovascular: See HPI. Negative for chest pain, palpitations and leg swelling. Gastrointestinal: Negative for nausea and vomiting. Genitourinary: Negative for dysuria and hematuria. Musculoskeletal: Negative for myalgias and new or worsening joint stiffness/pain. Skin: Negative for rash. Neurological: Positive for dizziness. Negative for LOC. + Weak shaky legs Endo/Heme/Allergies: Negative for new or significant bruising/bleeding. Psychiatric/Behavioral: Negative for new or significant memory loss. Filed Vitals: 05/10/21 1026 BP: 122/76 Pulse: 65 SpO2: 97% Weight: 53.5 kg (118 lb) Height: 5' 3 (1.6 m) Body mass index is 20.9 kg/m??. Cardiac Exam Rate/Rhythm: Regular rhythm. No extrasystoles are present. Bradycardia present. PMI: PMI is not displaced. Pulses: Intact distal pulses. Carotid pulses are 2+ on the right side and 2+ on the left side. Radial pulses are 2+ on the right side and 2+ on the left side. Dorsalis pedis pulses are 2+ on the right side and 2+ on the left side. Heart Sounds: No gallop present. Murmurs: Murmur present Diastolic murmur is present with a grade of 2/6. Negative for edema. Physical Exam Constitutional: No distress. Healthy Appearance. HENT: Eyes: Conjunctivae normal. Neck: Normal range of motion. No JVD. No thyromegaly. Abdomen: Abdomen soft. Bowel sounds normal. No distension. No tenderness. No abdominal bruit present. Pulmonary: Effort normal. Breath sounds normal. No chest wall tenderness. Skin: Dry. Warm. No rash. No pallor. No jaundice. No cyanosis. No clubbing. No xanthoma. Musculoskeletal: No tenderness. No kyphosis. Normal ROM. Neurological: Alert. Oriented x 3. Appropriate mood and affect. Comments: Referring Provider: No ref. provider found PCP: STACY KING MD documented in this encounter Plan of Treatment Not on file documented as of this encounter Visit Diagnoses Diagnosis Paroxysmal A-fib (CMS/HCC HHS/HCC)- Primary Atrial fibrillation documented in this encounter Care Teams Vending Machine Operator Relationship Specialty Start Date End Date Stacy King MD [address] [place] [address] PCP - General INTERNAL MEDICINE 12/08/20 Regulo Pandey MD [facility]. [facility] [address] [place] [address] [place] Paper Folding Machine Operator CARDIOVASCULAR DISEASE 03/21/16 documented as of this encounter
--- OUTSIDE RECORDS SUMMARY | 2024-08-09 17:41 | XMS_ITS | Encounter Summary ---
Author Organization [facility] Address [address] [place] [address]. [place] [address] [place] [address] Care Team Providers Care Train Electronic Technician Name Role Phone Regulo Pandey MD Unavailable Nabila King MD Primary Care Provider [phone] Reason for Visit * Auth/Cert Specialty Diagnoses / Procedures Referred By Contac t Referred To Contact Diagnoses SVT (supraventricular tachycardia) ([facility]) Procedures XA SVT WPW ABLATION Referral ID Status Reason Start Date Expiration Date Visits Re quested Visits Authorized [id number] 1 1 Encounter Details Date Type Department Care Team (Late st Contact Info) Description 02/15/2021 1:10 PM CDT Anesthesia Event [facility] [place] [address] Lorenzo Roper MD [address] [address] Hector Faust MD [address] [facility] [address] [place] [address] Anesthesia Record Procedure Summary Procedure Name Responsible Anesthesiologist Anesthesia Start Time Anesthesia Stop Time XA SVT WPW ABLATION Lorenzo Roper MD 02/15/21 1310 02/15/21 1645 Events Date Time Event Comment 02/15/2021 1102 1102 AN Anesthesia Prepped 1135 AN RUBBER 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 1317 Face Mask Applied 1320 An Induction The patient was reevaluated immediately before moderate or deep sedation use and before anesthesia induction. 1325 Anesthesia Ready 1410 AN Cardioversion 1534 AN Cardioversion 1535 AN Cardioversion 1545 AN Cardioversion 1553 AN Cardioversion 1609 AN Cardioversion 1610 AN Cardioversion 1612 Anes Handoff 1617 An Emergence 1632 an stop data 1638 Quick Note Transported to pacu with o2 6l/min. Vs monitored and stable. Pt in reverse t, then supine due to bp. 1644 Post Anesthetic Care Handoff I completed my handoff to the receiving nurse during which we: 1. Identified the patient 2. Identified the responsible provider 3. Reviewed the pertinent medical history 4. Discussed the surgical course 5. Reviewed intra-op anesthesia management and issues during anesthesia 6. Set expectations for post-procedure period 7. Allowed opportunity for questions and acknowledgement of understanding. 1645 Post Anesthetic Care Handoff I completed my handoff to the receiving nurse during which we: 1. Identified the patient 2. Identified the responsible provider 3. Reviewed the pertinent medical history 4. Discussed the surgical course 5. Reviewed intra-op anesthesia management and issues during anesthesia 6. Set expectations for post-procedure period 7. Allowed opportunity for questions and acknowledgement of understanding. 1645 An Stop Meds Name Total propofol (DIPRIVAN) 1000 mg/100 mL infus ion 1,085.84 mg fentaNYL (SUBLIMAZE) 100 mcg/2 mL inject ion 100 mcg phenylephrine (DIAMOND-SYNEPHRINE) injection 560 mcg heparin 1,000 units/mL injection 5,000 U nits amiodarone 150 mg/3 mL injection 300 mg phenylephrine 50 mg in NS 250 mL infusio n 1,200 mcg sodium chloride 0.9% infusion 500 mL sodium chloride 0.9% infusion 500 mL * Agents Name O2 N2O Air Ancillary O2 * Blood No blood administrations on file. Lines, Drains, and Airways Type Details Placement Removal Peripheral IV Placement Date: 01/20 04/10; Placement Time: 1100; Placed Outside of This Facility?: No; Size: 20 G; Orientation: Left; Location: Antecubital; Site Prep: Chlorhexidine; Local Anesthetic: None; Inserted By: Demetrio Hernandez R.N.; Insertion attempts: 1; Ultrasound-guided Placement?: No; Patient Tolerance: Tolerated well; Removal Date: 04/14/24; Removal Time: 22602/15/21 1100 by Kasey Mendes RN 04/14/24 022 by Automatic Discharge Provider Venous Sheath 02/15/21; 1347; No; Maximum Sterile Technique used, CXR taken, Hand hygiene, Blood return present, Chlorhexidine skin prep, Guidewires used accounted for, Fluoroscopy; Injectable; (6F and 7F); Right; Femoral; 1; Fluoroscopy, X-ray, Blood Return; Intact 02/15/21 1347 by Chica Ramirez RN 02/15/21 1633 by Chica Ramirez RN Venous Sheath 02/15/21; 1348; No; Maximum Sterile Technique used, CXR taken, Blood return present, Chlorhexidine skin prep, Hand hygiene, Guidewires used accounted for, Fluoroscopy; Injectable; (7F and 8F); Left; Femoral; 1; Fluoroscopy, X-ray, Blood Return; Tolerated well; Intact 02/15/21 1348 by Chica Ramirez RN 02/15/21 1633 by Chica Ramirez RN documented in this encounter Social History Tobacco Use Types Packs/Day Years [...] often do you attend chur ch or jain services? More than 4 times per year 02/15/2021 Do you belong to any clubs o r organizations such as denominational groups, unions, fraternal or athletic groups, or [...] and heating? Not hard at all 02/15/2021 [facility] - Occupational [...] or making decisions? No 02/15/2021 5:41 PM ARMANDT Shruthi Crane RN Active * Because of a physical, mental, or emotional condition, do you have serious difficulty concentrating, remembering, or making decisions? Answer Entry Date Author Status No 02/15/2021 5:41 PM Shruthi Banda RN Active documented in this encounter OR Notes * Anesthesia Postprocedure Evaluation - Noemy Quintana CRNA - 02/16/2021 9:10 AM CDT Anesthesia Post-op Note Lisa Conn Procedure(s): XA SVT WPW ABLATION Anesthesia type: MAC Vitals: 02/16/21721 BP: 115/61 Vitals: 02/16/21721 Pulse: 53 Vitals: 02/16/21721 Resp: 18 Vitals: 02/16/21721 Temp: 36.3 ??C Vitals: 02/16/21721 SpO2: 100% Patient Location: Inpatient Unit Level of Consciousness: awake, oriented and alert Pain Management: adequate analgesia Airway Patency: patent Respiratory Status: acceptable Cardiovascular Status: acceptable and stable Post-Op Nausea: none Postoperative Hydration: euvolemic Comments: Blood pressure 115/61, pulse 53, temperature 36.3 ??C, temperature source Oral, resp. rate 18, height 5' 3 (1.6 m), weight 54.1 kg (119 lb 3.2 oz), SpO2 100 %. There were no known complications for this encounter. * Anesthesia Postprocedure Evaluation - Lorenzo Roper MD - 02/16/2021 7:15 AM CDT Anesthesia Post-op Note Lisa Conn Procedure(s): XA SVT WPW ABLATION Anesthesia type: MAC Vitals: 02/16/21399 BP: 103/48 Vitals: 02/16/21399 Pulse: 52 Vitals: 02/16/21399 Resp: 17 Vitals: 02/16/21399 Temp: 36.9 ??C Vitals: 02/16/21399 SpO2: 98% Patient Location: PACU Level of Consciousness: awake and alert Pain Management: adequate analgesia Airway Patency: patent Respiratory Status: acceptable Cardiovascular Status: acceptable Post-Op Nausea: none Postoperative Hydration: euvolemic There were no known complications for this encounter. * Anesthesia Preprocedure Evaluation - Hector Faust MD - 02/15/2021 10:44 AM CDT Anesthesia ROS/MED History Reviewed: Patient summary , ECG, Family history anesthesia, Anesthesia history , Medications , Labs , Images/Studies , Unchecked boxes are not applicable Pre-Anesthetic State: alert, awake and responds appropriately no history of anesthetic complications Pulmonary (+) shortness of breath Cardiovascular Exercise tolerance:good (+) Valvular problems/Murmurs, (AI), arrhythmia, (SVT) Neuro/Psych (+) psychiatric problem, (anxiety) GI/Hepatic/Renal Endo/Other (+) hypothyroidism GENERAL COMMENTS -- Clarithromycin -- Anaphylaxis and Hives -- Metronidazole -- Hives -- Sulfa Antibiotics -- Hives -- Chloramphenicol -- Other (see comment) -- Damaged liver and wiped out white blood cells Past Medical History: No date: Anxiety No date: Hypothyroidism No date: Nonrheumatic aortic (valve) insufficiency No past surgical history on file. ECHO 01/08 ++++++++++++++++++++++++++++++++++++ SUMMARY: ++++++++++++++++++++++++++++++++++++ The left ventricular size [...] 30-40 mmHg suggestive of mild pulmonary hypertension. ?? Physical Evaluation Airway Mallampati: II TM Distance: >3 FB Neck ROM: normal Dental Pulmonary Pulmonary exam normal Breath sounds clear to auscultation Cardiovascular Rhythm: regular Rate: normal Cardiovascular exam normal Other findings: There were no vitals taken for this visit. 02/15/21 1012 WBC 6.2 RBC 4.58 HGB 14.2 HCT 43.5 PLT 229 Anesthesia Plan ASA 3 Intravenous Induction Anesthesia type: MAC Plan for Airway: nasal cannula/simple face mask Discussed potential risks of General Anesthesia including but not limited to corneal abrasion, visual impairment or visual loss, mouth injury, dental damage, sore throat, hoarseness, esophageal injury, awareness under anesthesia, nerve injury due to positioning, aspiration, pneumonia, stroke, cardiac event, adverse drug reactions and . Tiva anesthetic planned and discussed. Possible GA as needed. Patient is very sensitive to medications. Informed Consent Anesthetic plan and risks discussed with patient of whom consent was obtained. . documented in this encounter Plan of Treatment Not on file documented as of this encounter Visit Diagnoses Not on filedocumented in this encounter Administered Medications Inactive Administered Medications - up to 3 most recent administrations Medication Order MAR Action Action Date Dose Rate Site amiodarone (CORDARONE) injection Intravenous, PRN, Starting on Mon02/15/21 at 1537, Until Mon02/15/21 at 1645, Anesthesia Intra-Op Given 02/15/2021 3:47 PM CDT 150 mg Given 02/15/2021 3:37 PM CDT 150 mg fentaNYL (SUBLIMAZE) injection Intravenous, PRN, Starting on Mon02/15/21 at 1336, Until Mon02/15/21 at 1645, Anesthesia Intra-Op Given 02/15/2021 3:17 PM CDT 25 mcg Given 02/15/2021 2:58 PM CDT 25 mcg Given 02/15/2021 2:47 PM CDT 12.5 mcg heparin (porcine) injection Intravenous, PRN, Starting on Mon02/15/21 at 1529, Until Mon02/15/21 at 1645, Anesthesia Intra-Op Given 02/15/2021 3:29 PM CDT 5,000 Units phenylephrine (DIAMOND-SYNEPHRINE) injection Intravenous, PRN, Starting on Mon02/15/21 at 1421, Until Mon02/15/21 at 1645, Anesthesia Intra-Op Given 02/15/2021 3:51 PM CDT 160 mcg Given 02/15/2021 3:49 PM CDT 80 mcg Given 02/15/2021 3:46 PM CDT 80 mcg phenylephrine 50 mg in NS 250 mL infusion (PREMIX) Intravenous, Continuous PRN, Starting on Mon02/15/21 at 1554, Until Mon02/15/21 at 1645, Anesthesia Intra-Op New Bag 02/15/2021 3:54 PM CDT 50 mcg/min 15 mL/hr propofol (DIPRIVAN) infusion Intravenous, Continuous PRN, Starting on Mon02/15/21 at 1320, Until Mon02/15/21 at 1645, Anesthesia Intra-Op New Bag 02/15/2021 3:48 PM CDT 100 mcg/kg/min 35.46 mL/hr Rate/Dose Change 02/15/2021 3:47 PM CDT 100 mcg/kg/min 35. 46 mL/hr Rate/Dose Change 02/15/2021 3:10 PM CDT 150 mcg/kg/min 53. 19 mL/hr sodium chloride 0.9% infusion Intravenous, Continuous PRN, Starting on Mon02/15/21 at 1318, Until Mon02/15/21 at 1645, Anesthesia Intra-Op Restarted 02/15/2021 4:19 PM CDT New Bag 02/15/2021 1:18 PM CDT 100 mL/hr sodium chloride 0.9% infusion Intravenous, Continuous PRN, Starting on Mon02/15/21 at 1339, Until 6/28/21 at 1645, Anesthesia Intra-Op New Bag 02/15/2021 1:39 PM CDT documented in this encounter Care Teams Train Electronic Technician Relationship Specialty Start Date End Date Nabila King MD [address] [place] [address] PCP - General INTERNAL MEDICINE 12/08/20 Regulo Pandey MD [facility]. [address] [place] [address] [employer] Head CARDIOVASCULAR DISEASE 03/21/16 documented as of this encounter
--- OUTSIDE RECORDS SUMMARY | 2024-08-09 17:41 | XMS_ITS | Encounter Summary ---
Author Organization [facility] Address [address] [place] [address]. [place] [address] [place] [address] Care Team Providers Care Financial Health Counselor Name Role Phone Regulo Pandey MD Unavailable Nabila King MD Primary Care Provider [phone] Reason for Visit * Reason Onset Date Comments Dizziness 02/19/2021 Encounter Details Date Type Department Care Team (Late st Contact Info) Description 02/19/[address] [id number] Vanessa Lucia RN Dizziness Social History Tobacco Use Types Packs/Day Years [...] often do you attend chur ch or sabianism services? More than 4 times per year [...] and heating? Not hard at all 02/15/2021 [facility] - Occupational [...] Progress Notes * Vanessa Lucia RN - 02/23/2021 4:54 PM CDT I informed the patient of the above information from Rosana PEREZ. The patient states that she is not passing out. She would like clarification on her Eliquis dosing. The patient read due to her age and weight she should be taking 2.5mg BID. The patient states that she does not feel well, brain fog, and has bruises. She would like to decrease the dose. I informed the patient that I will notify Dr. Méndez. The patient verbalized understanding and had no further questions. Per Dr. Méndez - decrease Eliquis to 2.5mg BID. I informed the patient of the above information. The patient states that she uses an eye drop that is considered an NSAID for eye pain maybe three times a week. She does not think that would be a problem. She verbalized understanding and had no further questions. Message to Rosana PEREZ. * CHRIS Vieyra - 02/23/2021 3:54 PM CDT Reviewed with Dr. Méndez and could be related to inflammation from the proceed. He said to give itmore time unless she is having syncope or pre-syncope. This should improve. * Vanessa Lucia RN - 02/23/2021 3:33 PM CDT I received a voicemail from the patient asking for Dr. Méndez's recommendations. Message to Dr. Méndez * Vanessa Lucia RN - 02/19/2021 4:38 PM CDT I informed the patient of the above information from Rosana PEREZ. The patient states that she was misdiagnosed with the 21 day monitor since it was a 2 lead. The patient asked if this monitor would misswhat was going on. I informed the patient that I will notify Dr. Méndez and call her back next week. The patient verbalized understanding, is okay with a callback next week, and had no further questions. Message to Dr. Méndez. * CHRIS Vieyra - 02/19/2021 3:51 PM CDT Lets order a 2 week monitor if she is willing. Want to make sure her heart rates aren't too fast ortoo slow. * Vanessa Lucia RN - 02/19/2021 3:16 PM CDT I received a phone call from the patient stating that she is having dizzy spells and was not sure if it was due to the ablation. The patient has had dizzy spells prior to the ablation. She has had anMRI for her sinuses and has had her ears checked. She could feel dizzy laying down, walking. She does change positions slowly. She is staying hydrated. The patient is being treated for a bladder infection - taking antibiotics and pushing fluids. The patient describes the dizziness as a general fog in her head. I asked the patient if she felt her heart racing while she is dizzy - she cannot tell. The patient does get SOB at times but that is not new and does not think it is worse since the ablation. The patient does not own a BP cuff to check her BP because she would be checking it all the time. The patient wanted the PA to be aware of what's going on. I informed the patient that I will notify the PA and call back if there are new recommendations. The patient verbalized understanding and had no further questions. Message to Rosana PEREZ. documented in this encounter Plan of Treatment Not on file documented as of this encounter Visit Diagnoses Not on filedocumented in this encounter Care Teams Financial Health Counselor Relationship Specialty Start Date End Date Nabila King MD [address] [place] [address] PCP - General INTERNAL MEDICINE 12/08/20 Regulo Pandey MD [facility]. [address] [place] [address] [employer] CARDIOVASCULAR DISEASE 03/21/16 documented as of this encounter
--- OUTSIDE RECORDS SUMMARY | 2024-08-09 17:41 | XMS_ITS | Encounter Summary ---
Author Organization [facility] Address [address] [place] [address]. [place] [address] [place] [address] Care Team Providers Care Safety Sealer Name Role Phone Regulo Pandey MD Unavailable Stacy King MD Primary Care Provider [phone] Reason for Visit * Reason Comments Supraventricular Tachycardia per Dannie Encounter Details Date Type Department Care Team (Latest Contact Info) Description 01/19/2021 12:00 PM CDT Office Visit [facility] [place] [address] [place], [place] [id number] Marsha Mckenzie PA 3 [facility] [address] [place], [place] [id number] Supraventricular Tachycardia (per Dannie) Social History Tobacco Use Types Packs/Day Years [...] Time Taken Comments Blood Pressure 128/82 01/19/2021 11:20 AM CDT Pulse 60 01/19/2021 11:20 AM CDT Temperature - - Respiratory Rate - - Oxygen Saturation 99% 01/19/2021 11:20 AM CDT Inhaled Oxygen Concentration - - Weight 54 kg (119 lb) 01/19/2021 11:20 AM CDT Height 160 cm (5' 3 ) 01/19/2021 11:20 AM CDT Body Mass Index 21.08 01/19/2021 11:20 AM CDT documented in this encounter Patient Instructions * Patient Instructions* Mackenzie Sheth - 01/19/2021 12:00 PM CDT Images from the original note were not included. Patient Education Patient Education Supraventricular Tachycardia (SVT) The Basics Written by the doctors and editors at [facility] What is supraventricular tachycardia (SVT)???--??Supraventricular tachycardia, also [...] process is complete. This topic retrieved from [employer] on: Oct 20, 2020. Topic 55553 Version 8.0 Release: 29.1.3 - C29.60 ?2020??UpToDate, Inc. and/or its affiliates.??All rights reserved. figure 1: Normal heart This is a drawing of a normal heart. The heart has 4 chambers: right atrium, left atrium, right ventricle, and left ventricle. Blood flows from the right atrium to the right ventricle through the tricuspid valve. Blood flows from the left atrium to the left ventricle through the mitral valve. Graphic 75536 Version 3.0 figure 2: Person having an ECG This drawing shows a man having an ECG (also called an electrocardiogram or EKG). He has patches, called electrodes, stuck onto his chest, arms, and legs. Wires run from the electrodes to the ECG machine. An ECG measures the electrical activity in the heart. Graphic 90532 Version 2.0 figure 3: Holter monitor People [...] or certain times of the day. Graphic 39430 Version 8.0 figure 4: Cardiac event recorder An event recorder is a portable device patients can use to measure their heart rhythm for a short time. The patient must activate the recorder and hold it to the chest when they feel symptoms. It is useful for patients that have intermittent symptoms that may not be captured with other forms of testing. Graphic 11804 Version 4.0 Consumer Information Use and Disclaimer [...] that is right for you.The use of UpToDate content is governed by the [employer] Terms of Use. ??2020 [employer]. All rights reserved. Copyright ?2020??[employer]. and/or its affiliates.??All rights reserved. documented in this encounter Progress Notes * CHRIS Vieyra - 01/19/2021 12:00 PM CDTSummary: SVT Reason for Visit: Supraventricular Tachycardia (toshia Pandey) History of Present Illness: This patient is a patient of Dr. Pandey. She has a past medical history of hypothyroid and aortic valve insufficiency. She has been experiencing worsing palpitations and racing heart beats. She wore a 30 day monitor 12/10/20 which showed 365 episodes of SVT the longest was 19 minutes. The episodes occur off and on all day long. She is usually able to perform vagal maneuvers. She has not needed to go to the ED. The episodes have been increasing and are affecting her quality of life causing fatigue and dyspnea when her heart racing. She denies chest pain, orthopnea, PND, dyspnea with exertion, or syncope. She has felt lightheaded and like she could pass out but has not. 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 Patient is highly sensitiveto medications and is reluctant to take beta blockers as she had a terrible experience with them inthe past. We discussed risks/benefits/alternatives/and side effects of EPS and possible ablation including but not limited to: infection, bleeding, vascular access injury (pseudoaneurysm/fistula/hematoma), stroke, 1% chance of inadvertant damage to av zac tissues requiring emergent permanent pacemaker, coronary injury, cardiac perforation requiring pericardiocentesis or sternotomy. She wishes to proceed with procedure as planned. If she starts metoprolol will ask her to hold this medication 72 hours in advance. Medications: Current Outpatient Medications: ??? Ascorbic Acid [...] nightly at bedtime., Disp: , Rfl: ??? metoprolol tartrate 25 MG tablet, Take 0.5 tablets (12.5 mg total) by mouth 2 (two) times daily., Disp: 90 tablet, Rfl: 0 ??? Misc Natural Products (TURMERIC CURCUMIN) Cap, [...] past surgical history on file. Social History Tobacco Use ??? Smoking status: Never Smoker ??? Smokeless tobacco: Never Used Substance Use Topics ??? Alcohol use: No ??? Drug use: No No family history on file. Family Status Relation Name Status ??? Mother at age 88 ??? Father at age 89 had pacemaker ??? Sister Alive, age 76y Review of Systems Constitutional: Positive for fatigue. Negative for recent unintentional weight gain, recent unintentional weight loss and weakness. HENT: Negative for new or significant hearing loss, nosebleeds and headaches. Eyes: Negative for blurred vision and double vision. Respiratory: Positive for shortness of breath. Negative for cough and wheezing. Cardiovascular: Positive for palpitations.Negative for chest pain, orthopnea, claudication, leg swelling and PND. Gastrointestinal: Negative. Negative for nausea, vomiting, abdominal pain and blood in stool. Genitourinary: Negative. Negative for dysuria and hematuria. Musculoskeletal: Negative for myalgias and new or worsening joint stiffness/pain. Skin: Negative for rash. Neurological: Negative for dizziness, tingling/numbness, focal weakness, LOC and imbalance. Endo/Heme/Allergies: Negative for new or significant bruising/bleeding. Psychiatric/Behavioral: Positive for nervous/anxious. Negative for depression and new or significant memory loss. Vitals: 01/19/21 1120 BP: 128/82 Pulse: 60 Weight: 54 kg (119 lb) Height: 5' 3 (1.6 m) Body mass index is 21.08 kg/m??. Cardiac Exam Rate/Rhythm: Normal rate and regular rhythm. PMI: PMI is not displaced. Pulses: Normal pulses. Heart Sounds: Normal heart sounds. Normal S1 sounds. Normal S2 sounds. No gallop present. No S3. NoS4. Murmurs: Edema left: 0. Edema Right: 0. Negative for edema. Comments: No carotid bruits bilat Physical Exam Constitutional: No distress. Healthy Appearance. HENT: Oropharynx clear. Eyes: Pupils equal, round, and reactive to light. Conjunctivae normal. Neck: Neck supple. No JVD. Abdomen: Abdomen soft. Bowel sounds normal. No tenderness. Pulmonary: Effort normal. Breath sounds normal. No rales. No wheezes. Skin: Dry. Cool. No rash. Musculoskeletal: No kyphosis. Normal ROM. Neurological: Alert. Oriented x 3. Appropriate mood and affect. Normal motor skills. Normal gait. Comments: Echo 12/25/20 The left ventricular size is normal. The [...] 30-40 mmHg suggestive of mild pulmonary hypertension. Diagnoses/Impression: No diagnosis found. I spent 35 minutes today reviewing the patient's medical record, obtaining history, performing an exam, ordering medications, tests, and/or procedures, documenting in the medical record, referring and/or communicating with other health care providers, counseling and educating the patient/family/caregiver and reviewing and communicating test results. Referring Provider: No ref. provider found PCP: STACY KING MD documented in this encounter Plan of Treatment Not on file documented as of this encounter Visit Diagnoses Diagnosis SVT (supraventricular tachycardia) (CMS/HCC HHS/HCC)- Primary Other specified cardiac dysrhythmias documented in this encounter Care Teams Safety Sealer Relationship Specialty Start Date End Date Stacy King MD [address] [place] [id number] PCP - General INTERNAL MEDICINE 12/08/[address] [facility]. [facility] [address] [place] [address] [employer] Supervisor CARDIOVASCULAR DISEASE 03/21/16 documented as of this encounter
--- OUTSIDE RECORDS SUMMARY | 2024-08-09 17:41 | XMS_ITS | Encounter Summary ---
Author Organization [facility] Address [address] [place] [address]. [place] [address] [place] [address] Care Team Providers Care Associate Merchandise Planner Name Role Phone Jason Winters MD Primary Care Provider [phone] Regulo Pandye MD Unavailable Reason for Visit * Reason Onset Date Comments Results 09/24/2019 Encounter Details Date Type Department Care Team (Late st Contact Info) Description 09/24/2019 Telephone [facility], [facility] [address] [place], [place] [phone] Pamela Thomason NP [address] [facility] [address] [place] [address] Results Social History Tobacco Use Types Packs/Day [...] as of this encounter Progress Notes * Nori Gonzalez RN - 09/24/2019 3:28 PM CST Patient informed of the results below. Patient v/u and had no further questions. ATORIUM OPERATOR * Pamela Thomason NP - 09/24/2019 3:25 PM CST Let her know that her calcium CT score is -0- ATORIUM OPERATOR documented in this encounter Plan of Treatment Not on file documented as of this encounter Visit Diagnoses Not on filedocumented in this encounter Care Teams Associate Merchandise Planner Relationship Specialty Start Date End Date Jason Winters MD [address] [place] [id number] PCP - General FAMILY PRACTICE 03/21/16 12/07/20 Regulo Pandey MD [facility] [address] [place] [address] [employer] CARDIOVASCULAR DISEASE 03/21/16 documented as of this encounter
--- OUTSIDE RECORDS SUMMARY | 2024-08-09 17:41 | XMS_ITS | Encounter Summary ---
Author Organization [facility] Address [address] [place] [address]. [place] [address] [place] [address] Care Team Providers Care Racker Octave Board Name Role Phone Regulo Pandey MD Unavailable Nabila King MD Primary Care Provider [phone] Reason for Visit * Reason Onset Date Comments Dizziness 05/21/2021 Encounter Details Date Type Department Care Team (Late st Contact Info) Description 05/21/[address] [id number] Ivory Lyn RN Dizziness Social History Tobacco Use Types [...] often do you attend chur ch or gnosticist services? More than 4 times per year 02/15/2021 Do you belong to any clubs o r organizations such as mormon groups, unions, fraternal or athletic groups, or [...] and heating? Not hard at all 02/15/2021 [facility] - [...] documented in this encounter Progress Notes * CHARISSE Hanson - 05/24/2021 9:23 AM CDT I agree with getting the holter. * MYKE Saucedo - 05/21/2021 3:27 PM CDT Noted. Will leave on board for Renetta Beavers to review. * Ivory Lyn RN - 05/21/2021 2:41 PM CDT Pt called to report that she saw Renetta Huitron a couple of weeks ago, reported c/o dizziness and wasadvised to hold eliquis, pt states that this made no difference, remains dizzy and nothing has changed, states saw PCP today and pulse was in the 40's, PCP instructed to resume eliquis and ordered holter monitor, which pt is having put on 05/27/21 and states that she just wanted to let our office know and will keep our office informed. Message to Renetta Huitron. Mica Lyn R.N. documented in this encounter Plan of Treatment Not on file documented as of this encounter Visit Diagnoses Not on filedocumented in this encounter Care Teams Racker Octave Board Relationship Specialty Start Date End Date Nabila King MD [address] [place] [id number] PCP - General INTERNAL MEDICINE 12/08/20 Regulo Pandey MD [facility]. [place] [id number] [place] [address] Margaret Rn New Grad CARDIOVASCULAR DISEASE 03/21/16 documented as of this encounter
--- OUTSIDE RECORDS SUMMARY | 2024-08-09 17:41 | XMS_ITS | Encounter Summary ---
Author Organization [facility] Address [address] [place] [address]. [place] [address] [place] [address] Care Team Providers Care Manager Environmental Services Name Role Phone Regulo Pandey MD Unavailable Stacy King MD Primary Care Provider [phone] Reason for Visit * Reason Comments Atrial Fibrillation 3 month check Supraventricular Tachycardia Encounter Details Date Type Department Care Team (Latest Contact Info) Description 07/22/2021 11:15 AM PLUG CUTTING MACHINE OPERATOR Office Visit [facility], [address] [place] [address] Marsha Mckenzie PA 3 [facility] [address] [place] [address] Atrial Fibrillation (3 month check); Supraventricular Tachycardia Social History Tobacco Use Types Packs/Day Years [...] How often do you attend chur or roman catholic services? More than 4 times per year 02/15/2021 Do you belong to any clubs o r organizations such as confucianist groups, unions, fraternal or athletic groups, or [...] heating? Not hard at all 02/15/2021 [facility] - Occupational [...] COVID-19? No / Unsure 07/22/2021 11:04 AM PLUG CUTTING MACHINE OPERATOR documented as of this encounter Last Filed Vital Signs Vital Sign Reading Time Taken Comments Blood Pressure 124/62 07/22/2021 11:25 AM PLUG CUTTING MACHINE OPERATOR Pulse 57 07/22/2021 11:25 AM PLUG CUTTING MACHINE OPERATOR Temperature - - Respiratory Rate - - Oxygen Saturation 97% 07/22/2021 11:25 AM PLUG CUTTING MACHINE OPERATOR Inhaled Oxygen Concentration - - Weight 55.3 kg (122 lb) 07/22/2021 11:25 AM PLUG CUTTING MACHINE OPERATOR Height 160 cm (5' 3 ) 07/22/2021 11:25 AM PLUG CUTTING MACHINE OPERATOR Body Mass Index 21.61 07/22/2021 11:25 AM PLUG CUTTING MACHINE OPERATOR documented in this encounter Functional Status * [...] Banda RN Active documented in this encounter Patient Instructions * Patient Instructions* Mackenzie Sheth - 07/22/2021 11:15 AM PLUG CUTTING MACHINE OPERATOR Images from the original note were not included. Patient Education Patient Education Pacemaker Insertion Why is this procedure done? A pacemaker helps your heart to beat properly. A pacemaker is used when the heart does not beat normally. This is called an arrhythmia. Your heart may be beating too fast or too slow. Also, your heart may beat with an irregular rhythm. Any of these arrhythmias can affect your health if not treated right away. The pacemaker is placed under the skin of your chest, just below your collarbone. Leads or wires are attached to the pacemaker. The leads will be hooked up to your heart to help control your heartbeat. Pacemakers work in many ways. Your doctor will decide which settings your pacemaker will need. Some send an electric pulse for each heartbeat. Others only send an electric pulse if the heart rate is too high or too low. A pacemaker is made up of two parts: ?? Pulse generator ? Houses the battery and a small computer that records the heartbeat ?? Lead wires ? Send the electric pulses from the generator to the heart Your doctor may place leads in one part of the heart or in more than one place, based on the cause of your rhythm problem. Talk to your doctor about where they will place your leads. What will the results be? With a pacemaker you may have a normal heartbeat. Your heart might function better and your qualityof life may improve. What happens before the procedure? Your doctor will ask you about your health history and may request a blood test. Tell the doctor ifyou have any drug allergies. Talk to the doctor about: ?? All the drugs you are taking. Be sure to include all prescription and gkaj-bei-tcjqwyj (OTC) drugs, vitamins, and herbal supplements. Bring a list of drugs you take with you. ?? Any bleeding problems. Be sure to tell your doctor if you are taking any drugs that may cause bleeding. Some of these are warfarin, rivaroxaban, apixaban, ticagrelor, clopidogrel, ketorolac, ibuprofen, naproxen, or aspirin. Certain vitamins and herbs, such as garlic and fish oil, may also add tothe risk for bleeding. You may need to stop these drugs as well. Talk to your doctor about them. ?? If you need to stop eating or drinking before your procedure. You will not be allowed to drive right away after the procedure. Ask a family member or a friend todrive you home. What happens during the procedure? ?? Once you are in the operating room, the staff will put an IV in your arm to give you fluids and drugs. You will be given a drug to make you sleepy. It will also help you stay pain free during the surgery. ?? Your doctor will make a small cut near your collarbone. The lead wires will be connected to the heart muscle. The pacemaker will be securely placed beneath the skin in your chest. ?? Your doctor will check to make sure your pacemaker is working properly. ?? Your doctor will close your cut and cover it with clean bandages. ?? The pacemaker will be programmed during the procedure to fit your heart's needs. ?? This procedure may take about 2 hours. What happens after the procedure? ?? You will go to the Recovery Room and the staff will watch you closely. ?? You will need to keep your arm in a sling for a few days. ?? Do not move your arm above your chest. This could dislodge the device and wires. ?? You may feel pain where the pacemaker was put in. You will be given drugs to ease the pain. ?? This procedure may be done as an outpatient or in a hospital. You may need to stay overnight to make sure the device is working properly. Other times, you are able to go home later the same day. If you have other medical problems, you may need to stay longer. ?? You will need to learn about your pacemaker. Be sure you: ? Wear a medical ID or bracelet that lets others know that you have a pacemaker. ? Know what to expect now that you have a pacemaker and when to call your doctor. ? Know your pacemaker settings. This information is helpful in case of an emergency. ? Know about the pacemaker. This includes knowing the development technician, serial number, and date the implant was put in. You will be given an ID card that contains this information. Be sure to keep this card in a safe place. The battery life of the pacemaker is 6 to 8 years. Be careful around electrical devices or anything with magnets. ? Cell phones and MP3 players, such as iPods, have magnets. Do not use or hold them on the same side of your body as your pacemaker. ? Most appliances in your home are safe for you to use. ? Walk through metal detectors at a normal pace. Your pacemaker will likely set it off. Show your medical alert ID or card and ask to be hand searched. ? Stay at least 2 feet (0.6 meters) away from industrial welders, large motors, electrical generators, and equipment. ? Tell your other doctors about your pacemaker before having any other tests or procedures. These can interfere with how well your pacemaker works. What drugs may be needed? The doctor may order drugs to prevent infection. Your doctor will tell you about the drugs you willneed to take. Be sure to ask about them. Take all your drugs as ordered by your doctor. What problems could happen? ?? Bleeding ?? Infection ?? Damage to a blood vessel or nerve ?? A collapsed lung ?? A reaction to the drugs used during the procedure ?? Device may not work properly or becomes dislodged Where can I learn more? [employer] https://www.heart.org/en/health-topics/arrhythmia/prevention--etqptrwln-gw-ehwbs thmia/pacemaker UpToDate https://www.[employer].com/contents/hzbjlmqbvn-zcyvcr-dcm-basics?view=print Last Reviewed Date 2020-12-15 Consumer Information Use and Disclaimer This information [...] is right for you. Copyright Copyright ?? 2020 [employer]. and its affiliates and/or licensors. All rights reserved. CUTTING MACHINE OPERATOR documented in this encounter Progress Notes * Marsha Mckenzie, CHRIS - 07/22/2021 11:15 AM CSTSummary: Follow up Images from the original note were not included. [place], [place] [address] Cardiac Electrophysiology Outpatient Progress Note Patient name: Lisa Conn Primary Wildlife Biology Internship: Regulo Pandey MD Primary Care Provider: STACY KING MD Chief Complaint: Follow up after ablation History of Present Illness/Interval History Lisa Conn [...] better than before her ablation procedure. She wore a holter monitor that showed heart rate range from 37 to 165 bpm. Her heart rate was in the 40's at her primary's office recently. She reports frequent episodes of dizziness, near syncope, and brain fog. July 08 she had an episode of syncope in the [employer] parking lot after her flu shot. She did not go to the ED. She has no chest pain. Assessment and Plan Mrs. Conn is a 85-year-old female here today for follow up evaluation of SVT after her ablation. 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 Patient wants to think about it and will call back to schedule with Dr. Pandey. Moving forward the pacemaker may allow her to tolerate rate control medication. 2 Focal atrial tachycardia/atrial flutter: She seems to be doing better from this regard but still has occasional daily breakthrough symptoms. We did discuss the possibility of a pulmonary vein isolation procedure in the future vs antiarrhythmic drug therapy. She did not tolerate beta blockers in the past. She is not interested in more ablation. She may consider AA drug therapy but would recommend waiting until after her pacemaker to avoid worsening her bradycardia. 3. PAF: Remains on apixaban 2.5 mg bid (age,weight reduction). 4. Hypothyroidism: On replacement therapy She will call to scheduled pacemaker with Dr. Pandey. History Review of Systems Constitutional: Positive for malaise/fatigue. HENT: Negative. Eyes: Negative. Respiratory: Negative. Negative for shortness of breath. Cardiovascular: Positive for palpitations. Negative for chest pain and leg swelling. Gastrointestinal: Negative. Genitourinary: Negative. Musculoskeletal: Positive for falls. Skin: Negative. Neurological: Positive for dizziness and loss of consciousness. Endo/Heme/Allergies: Negative. Psychiatric/Behavioral: Negative. Current Problems: Patient Active Problem List Diagnosis ??? Shortness of breath ??? Nonrheumatic aortic valve insufficiency ??? Acute on chronic diastolic heart failure (CMS/HCC) ??? Mitral valve disease ??? Palpitation ??? Pseudophakia ??? Ventricular septal defect (VSD) ??? ASVD (arteriosclerotic vascular disease) ??? Paroxysmal A-fib (CMS/HCC) ??? SVT (supraventricular tachycardia) (CMS/HCC) Past Medical History: Past Medical History: Diagnosis [...] mouth daily. LEVOTHYROXINE 50 MCG TABLET Take 50 mcg by mouth every morning. Take 50mcg and 100mcg alternating days MELATONIN 3 MG TABLET Take 1 tablet (3 mg total) by mouth nightly at bedtime. Modified Medications No medications on file Discontinued Medications No medications on file Physical Exam Filed Vitals: 07/22/21 1125 BP: 124/62 Pulse: 57 SpO2: 97% Weight: 55.3 kg (122 lb) Height: 5' 3 (1.6 m) Physical [...] very unlikely for probability of significant CAD LLOYD Edwards MD [facility] Cardiac Electrophysiology ; ext. [phone] Pager: [phone] 12:44 PM CUTTING MACHINE OPERATOR documented in this encounter Plan of Treatment Not on file documented as of this encounter Visit Diagnoses Diagnosis Tachy-kelechi syndrome ([facility])- Primary Sinoatrial node dysfunction Paroxysmal A-fib ([facility]) Atrial fibrillation SVT (supraventricular tachycardia) ([facility]) Other specified cardiac dysrhythmias Palpitations documented in this encounter Care Teams Manager Environmental Services Relationship Specialty Start Date End Date Stacy King MD [address] [place] [address] PCP - General INTERNAL MEDICINE 12/08/20 Regulo Pandey MD Three [facility]. [facility] [address] [place] [address] [place] [facility] Intern[facility] CARDIOVASCULAR DISEASE 03/21/16 documented as of this encounter
--- OUTSIDE RECORDS SUMMARY | 2024-08-09 17:41 | XMS_ITS | Encounter Summary ---
Author Organization [facility] Address [address] [place] [address]. [place] [address] [place] [address] Care Team Providers Care Tube Man Name Role Phone Regulo Pandey MD Unavailable Nabila King MD Primary Care Provider [phone] Encounter Details Date Type Department Care Team (Latest Contact Info) Description 01/26/2021 Travel Social History Tobacco Use Types Packs/Day [...] PM CDT documented as of this encounter Plan of Treatment Not on file documented as of this encounter Visit Diagnoses Not on filedocumented in this encounter Care Teams Tube Man Relationship Specialty Start Date End Date Nabila King MD [address] [place] [address] PCP - General INTERNAL MEDICINE 12/08/20 Regulo Pandey MD [address] [address] [place] Borer CARDIOVASCULAR DISEASE 03/21/16 documented as of this encounter
--- OUTSIDE RECORDS SUMMARY | 2024-08-09 17:41 | XMS_ITS | Encounter Summary ---
Author Organization [facility] Address [address] [place] [address]. [place], [place] [address] [place] [address] Care Team Providers Care Industrial Locomotive Operator Name Role Phone Regulo Pandey MD Unavailable Stacy King MD Primary Care Provider [phone] Reason for Referral * Imaging (Routine) - Closed Specialty Diagnoses / Procedures Referred By Contac t Referred To Contact RADIOLOGY Diagnoses Dental infection Cervical radiculopathy Procedures MRI FACIAL WWO CON MRI FACIAL W CON Stacy King MD [address] [place] [address] Phone: tel: fax: Referral ID Status Reason Start Date Expiration Date Visits Re quested Visits Authorized [id number] Closed 04/28/2024 10/25/2024 1 1 * Imaging (Urgent) - Closed Specialty Diagnoses / Procedures Referred By Contac t Referred To Contact RADIOLOGY Diagnoses 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 Lumbar radiculopathy Procedures MRI LUMB SPINE WWO CON Stacy King MD [address] [place] [address] Phone: tel: fax: Referral ID Status Reason Start Date Expiration Date Visits Re quested Visits Authorized [id number] Closed 04/20/2024 10/19/2024 1 1 * Imaging (Urgent) - Closed Specialty Diagnoses / Procedures Referred By John bojorquez Referred To Contact RADIOLOGY Diagnoses Vertebro-basilar artery syndrome Thoracic radiculopathy Procedures MRI THOR SPINE WWO CON Stacy King MD [address] [place] [address] Phone: tel: fax: Referral ID Status Reason Start Date Expiration Date Visits Re quested Visits Authorized [id number] Closed 04/20/2024 10/19/2024 1 1 Reason for Visit * Imaging (Urgent) - Closed Specialty Diagnoses / Procedures Referred By John bojorquez Referred To Contact RADIOLOGY Diagnoses Vertebro-basilar artery syndrome Thoracic radiculopathy Procedures MRI THOR SPINE WWO CON Stacy King MD [address] [place] [address] Phone: tel: fax: Referral ID Status Reason Start Date Expiration Date Visits Re quested Visits Authorized [id number] Closed 04/20/2024 10/19/2024 1 1 Encounter Details Date Type Department Care Team (Late st Contact Info) Description 06/10/2024 11:00 AM CDT - 06/10/2024 11:59 PM CDT Hospital Encounter [facility] MRI [address] [place] [address] Stacy King MD [address] [place] [address] Discharge Disposition: Home or Self Care (Routine [...] How often do you attend chur or mandaeism services? More than 4 times per year 02/15/2021 Do you belong to any clubs o r organizations such as buddhism groups, unions, fraternal or athletic groups, or [...] and heating? Not hard at all 02/15/2021 [facility] - Occupational Stress [...] 31 PM CDT Dental infection Cervical radiculopathy documented in this encounter Results * MRI LUMB SPINE WWO CON [...] 3:15 PM Narrative 06/10/2024 3:[address] PM [address] [address] EXAMINATION:MRI lumbar spine with and without contrast [...] Procedure Note Jimbo Tristan MD - 06/10/[address] [address] EXAMINATION:MRI lumbar spine with and without contrast [...] body and 1.2 cm lesion within the E1ucvrehouw body, both of which demonstrate increased T1 [...] By: Jimbo Tristan MD, 06/10/2024 3:15 PM Stacy King MD MRI Final Result [...] 2:44 PM Narrative 06/10/2024 2:48 PM CDT [address] [address] EXAMINATION:MRI of the thoracic spine with and [...] Procedure Note Jimbo Tristan MD - 06/10/[address] [address] EXAMINATION:MRI of the thoracic spine with and [...] By: Jimbo Tristan MD, 06/10/2024 2:44 PM Stacy King MD MRI Final Result [...] 2:48 PM Narrative 06/10/2024 2:59 PM CDT [address] [address] EXAMINATION:MRI of the face with and without [...] Procedure Note Jimbo Tristan MD - 06/10/[address] [address] EXAMINATION:MRI of the face with and without [...] PM Stacy King MD MRI Final Result documented in this encounter Visit Diagnoses Diagnosis 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 Thoracic radiculopathy Thoracic or lumbosacral neuritis or radiculitis, unspecified Neural foraminal stenosis of lumbar spine Spinal stenosis, lumbar region, without neurogenic claudication Lumbar radiculopathy Thoracic or lumbosacral neuritis or radiculitis, unspecified Dental infection Acute apical periodontitis of pulpal origin Cervical radiculopathy Brachial neuritis or radiculitis nos documented in this encounter Administered Medications Inactive Administered Medications - up to 3 most recent administrations Medication Order MAR Action Action Date Dose Rate Site gadoterate meglumine (DOTAREM) 7.5 MMOL/15ML injection 11 mL 11 mL, Intravenous, IMG once as needed, Contrast, 1 dose, Starting on Mon06/10/24 at 1255, Until Mon06/10/24 at 1255 Given 06/10/2024 12:55 PM CDT 11 mLs Righ t Arm documented in this encounter Care Teams Industrial Locomotive Operator Relationship Specialty Start Date End Date Stacy King MD [address] [place] [address] PCP - General INTERNAL MEDICINE 12/08/20 Regulo Pandey MD Three [facility]. [address] [place] [address] [place] Photographic Colorist CARDIOVASCULAR DISEASE 03/21/16 documented as of this encounter
--- OUTSIDE RECORDS SUMMARY | 2024-08-09 17:41 | XMS_ITS | Encounter Summary ---
Author Organization [facility] Address [address] [place] [address]. [place] [address] [place] [address] Care Team Providers Care Cartographic Technician Name Role Phone Jason Winters MD Primary Care Provider [phone] Regulo Pandey MD Unavailable Encounter Details Date Type Department Care Team (Late st Contact Info) Description 05/03/2016 Abstract [facility] [place] [place], [place] [id number] Regulo Pandey MD Three [facility]. [facility] [address] [place] [address] Social History Tobacco Use Types Packs/Day Years [...] on file documented as of this encounter Plan of Treatment Not on file documented as of this encounter Visit Diagnoses Diagnosis Nonrheumatic aortic valve insufficiency Aortic valve disorders documented in this encounter Care Teams Cartographic Technician Relationship Specialty Start Date End Date Jason Winters MD [address] [place] [address] PCP - General FAMILY PRACTICE 03/21/16 12/07/20 Regulo Pandey MD [facility]. [facility] [address] [place] [address] [place] Front Office Associate CARDIOVASCULAR DISEASE 03/21/16 documented as of this encounter
--- OUTSIDE RECORDS SUMMARY | 2024-08-09 17:42 | XMS_ITS | Encounter Summary ---
Author Organization [facility] Address [facility] [place] [address] [place] [address] Care Team Providers Care Research Instructor Name Role Phone Jason Winters MD Primary Care Provider +1- [phone] Regulo Pandey MD Unavailable Reason for Referral * Imaging (Routine) - Closed Specialty Diagnoses / Procedures Referred By Contac t Referred To Contact CARDIOLOGY Diagnoses SOB (shortness of breath) on exertion Aortic insufficiency Procedures USE ECHOCARDIOGRAM OUS P ECHO XTHOR COM W DOPPLER Regulo Pandey MD [facility]. [place] [address] [place] [address] Phone: tel: fax: [facility] [address] [place] [address] Phone: tel: Referral ID Status Reason Start Date Expiration Date Visits Re quested Visits Authorized [id number] Closed 04/05/2016 05/20/2016 1 1 Reason for Visit * Reason Comments Dizziness needs a checkup Breathing Problem Encounter Details Date Type Department Care Team (Late st Contact Info) Description 04/05/2016 12:30 PM CDT Office Visit [facility] [place] [address] [place] [address] Regulo Pandey MD [facility]. [address] [place], [place] [id number] Dizziness (needs a checkup); Breathing Problem Social History Tobacco Use Types Packs/Day Years [...] Sign Reading Time Taken Comments Blood Pressure 122/78 04/05/2016 12:13 PM CDT Pulse - - Temperature - - Respiratory Rate - - Oxygen Saturation 97% 04/05/2016 12:13 PM CDT Inhaled Oxygen Concentration - - Weight 54.9 kg (121 lb) 04/05/2016 12:13 PM CDT Height 160 cm (5' 3 ) 04/05/2016 12:13 PM CDT Body Mass Index 21.43 04/05/2016 12:13 PM CDT documented in this encounter Progress Notes * Regulo Pandey MD - 04/05/2016 12:49 PM CDT Follow up Plan for BMI: Current BMI in normal range. Chief Complaint: Dizziness (needs a checkup) and Breathing Problem Recommendations/Plan: 1. Aortic insufficiency. Patient has long-standing history of aortic insufficiency. Last echocardiogram was about 2 years ago. Ejection fraction was normal. H&H is clearly having significant worsening of symptoms mostly with exertion. She is not in congestive heart failure by physical exam. There is nothing to suggest that this is a pulmonary problem. No recent blood work that she knows of. 2. Hypothyroidism Patient is on replacement with Synthroid. Plan: I talked to the patient at length. Suspect she may have worsening aortic insufficiency even though there are no signs of congestive heart failure. There are no old were signs of aortic insufficiency significant. With that in mind a echocardiogram is recommended in this patient. If her echocardiogram does not show significant worsening of her aortic insufficiency then a stress test will be scheduled as well. No additional therapy right now. I have explained all this to the patient in detail and she fully understands. History of Present Illness: This 80-year-old woman comes in for cardiac evaluation. She states that she is to see a manager semiconductor at [place]. The doctor left from there and moved to [place]. She states that lately she has not been feeling well. She has noticed increasing shortness of breath with little amount of activity. Shehas always been very active in now with the same activity she is getting out of breath. She is alsohaving episodes all for lightheadedness or dizziness. She has not had a syncopal episode. She denies orthopnea or PND. She denies swelling in her legs. Also has noticed that whenever she lays on her left side heart beating. Medications: Current Outpatient Prescriptions: ??? levothyroxine 50 MCG tablet, , Disp: , Rfl: Allergies Allergen Reactions ??? Clarithromycin Anaphylaxis ??? Flagyl [Metronidazole] Hives ??? Sulfa Drugs Hives Past Medical History Diagnosis Date ??? Aortic insufficiency ??? Hypothyroid Social History Social History ??? Marital status: Spouse name: N/A ??? Number of children: 2 ??? Years of education: N/A Social History Main Topics ??? Smoking status: Never Smoker ??? Smokeless tobacco: Never Used ??? Alcohol use No ??? Drug use: No ??? Sexual activity: Not Asked Other Topics Concern ??? Caffeine Concern Yes 1 cup coffee ??? Exercise Yes daily Social History Narrative ??? None No family history on file. Family Status Relation Status ??? Mother at age 88 ??? Father at age 89 had pacemaker ??? Sister Alive, age 72y Review of Systems Constitutional: Negative for fever, malaise/fatigue and weight loss. Eyes: Negative for blurred vision. Respiratory: Positive for shortness of breath. Negative for cough. Cardiovascular: Negative for chest pain, claudication and leg swelling. Gastrointestinal: Negative for heartburn and melena. Genitourinary: Negative for frequency. Musculoskeletal: Negative for back pain, joint pain and myalgias. Skin: Negative for rash. Neurological: Positive for dizziness. Negative for headaches. Endo/Heme/Allergies: Does not bruise/bleed easily. Psychiatric/Behavioral: Negative for depression. Filed Vitals: 04/05/16 1213 BP: 122/78 SpO2: 97% Weight: 54.9 kg (121 lb) Height: 5' 3 (1.6 m) Physical Exam Constitutional: She is oriented to person, place, and time. She appears well- developed and well-nourished. No distress. HENT: Head: Normocephalic. Eyes: No scleral icterus. Neck: No JVD present. No thyromegaly present. Cardiovascular: Normal rate, regular rhythm, S1 normal, S2 normal and intact distal pulses. Murmur heard. Systolic murmur is present with a grade of 2/6 Decrescendo diastolic murmur is present with a grade of 2/6 Pulses: Carotid pulses are 2+ on the right side, and 2+ on the left side. Radial pulses are 2+ on the right side, and 2+ on the left side. Femoral pulses are 2+ on the right side, and 2+ on the left side. Dorsalis pedis pulses are 2+ on the right side, and 2+ on the left side. Pulmonary/Chest: Effort normal and breath sounds normal. She has no wheezes. She has no rales. Abdominal: Soft. Bowel sounds are normal. She exhibits no mass. There is no tenderness. Musculoskeletal: She exhibits no edema. Neurological: She is alert and oriented to person, place, and time. Skin: Skin is warm and dry. No rash noted. Psychiatric: She has a normal mood and affect. Laboratory data reviewed Echocardiogram to 2014 normal left ventricular systolic function. Moderate aortic valve regurgitation. EKG done today shows sinus rhythm and RSR prime.. Diagnoses/Impression: 1. SOB (shortness of breath) on exertion ELECTROCARDIOGRAM (NON MIDMARK ACQUIRED) documented in this encounter Plan of Treatment Scheduled Orders Name Type Priority Associated Diagnoses Orde r Schedule USE ECHOCARDIOGRAM ECHO Routine SOB (shortness of breath) on exertion Aortic insufficiency Expected: 04/05/2016, Expires: 04/05/2017 documented as of this encounter Visit Diagnoses Diagnosis SOB (shortness of breath) on exertion- Primary Shortness of breath Aortic insufficiency Aortic valve disorders documented in this encounter Care Teams Research Instructor Relationship Specialty Start Date End Date Jason Winters MD [address] [place] [address] PCP - General FAMILY PRACTICE 03/21/16 12/07/20 Regulo Pandey MD [facility]. [facility] [address] [place] [address] [place] Milk House Worker CARDIOVASCULAR DISEASE 03/21/16 documented as of this encounter
--- OUTSIDE RECORDS SUMMARY | 2024-08-09 17:42 | XMS_ITS | Encounter Summary ---
Author Organization [facility] Address [address] [place] [address]. [place] [address] [place] [address] Care Team Providers Care Print Graphic Designer Name Role Phone Jason Winters MD Primary Care Provider + [phone] Regulo Pandey MD Unavailable Encounter Details Date Type Department Care Team (Late st Contact Info) Description 04/05/2016 Orders Only [place] [facility] AT [address] [address] Noelle Pablo LPN Social History Tobacco Use Types Packs/Day Years [...] on filedocumented in this encounter Care Teams Print Graphic Designer Relationship Specialty Start Date End Date Jason Winters MD [address] [place] [address] PCP - General FAMILY PRACTICE 03/21/16 12/07/20 Regulo Pandey MD [facility] [address] [place] [address] Margaret Bowling Ball Marker CARDIOVASCULAR DISEASE 03/21/16 documented as of this encounter
--- OUTSIDE RECORDS SUMMARY | 2024-08-09 17:42 | XMS_ITS | Encounter Summary ---
Author Organization [facility] Address [address] [place] [address]. [place] [address] [place] [address] Care Team Providers Care Slat Basket Top Maker Name Role Phone Jason Winters MD Primary Care Provider +1- [phone] Regulo Pandey MD Unavailable Encounter Details Date Type Department Care Team (Late st Contact Info) Description 06/13/[address] [facility] CON[facility] [address] [place] [address] , Generic MD Marla Social History Tobacco Use Types Packs/Day Years Used Date Smoking Tobacco: Never Assessed Comments Unknown Sex and Gender Information Value Date Recorded Sex Assigned at Not on file Legal Sex Female 5:00 PM CDT Gender Identity Not on file Sexual Orientation Not on file documented as of this encounter Plan of Treatment Not on file documented as of this encounter Visit Diagnoses Not on filedocumented in this encounter Care Teams Slat Basket Top Maker Relationship Specialty Start Date End Date Jason Winters MD [address] [place] [address] PCP - General FAMILY PRACTICE 03/21/16 12/07/20 Regulo Pandey MD [facility] [address] [place] [address] [place] Political Advisor CARDIOVASCULAR DISEASE 03/21/16 documented as of this encounter
--- OUTSIDE RECORDS SUMMARY | 2024-08-09 17:42 | XMS_ITS | Encounter Summary ---
Author Organization [facility] Address [address] [place] [address]. [place] [address] [place] [address] Care Team Providers Care Pipe Fitter Apprentice Name Role Phone Jason Winters MD Primary Care Provider +1- [phone] Regulo Pandey MD Unavailable Reason for Referral * Imaging (Routine) - Closed Specialty Diagnoses / Procedures Referred By Contac t Referred To Contact CARDIOLOGY Diagnoses Aortic insufficiency Procedures NM TREADMILL ONLY STRESS TEST CARDIAC STRESS TST,DR SUPERV ONLY CARDIAC STRESS TST,INTERP/REPT ONLY Regulo Pandey MD [facility]. [address] [facility] [place] [address] Phone: tel: fax: [facility] [address] [address] Phone: tel: Referral ID Status Reason Start Date Expiration Date Visits Re quested Visits Authorized [id number] Closed 04/23/2017 1 1 Encounter Details Date Type Department Care Team (Late st Contact Info) Description 04/22/2016 Orders Only [place] [facility] AT [address] [address] Regulo Pandey MD [facility]. [address] [place] [address] Social History Tobacco Use Types [...] as of this encounter Visit Diagnoses Diagnosis Aortic insufficiency- Primary Aortic valve disorders documented in this encounter Care Teams Pipe Fitter Apprentice Relationship Specialty Start Date End Date Jason Winters MD [address] [place] [address] PCP - General FAMILY PRACTICE 03/21/16 12/07/20 Regulo Pandey MD [facility] [address] [place] [address] [place] Forging Machine Operator CARDIOVASCULAR DISEASE 03/21/16 documented as of this encounter
--- OUTSIDE RECORDS SUMMARY | 2024-08-09 17:42 | XMS_ITS | Encounter Summary ---
Author Organization [facility] Address [address] [place] [address]. [place] [address] [place] [address] Care Team Providers Care Shipyard Supervisor Name Role Phone Jason Winters MD Primary Care Provider + [phone] Regulo Pandey MD Unavailable Encounter Details Date Type Department Care Team (Late st Contact Info) Description 10/20/2003 Abstract [facility] [address] [place] [address] Alex Laneg MD Social History Tobacco Use Types Packs/Day Years [...] on filedocumented in this encounter Care Teams Shipyard Supervisor Relationship Specialty Start Date End Date Jason Winters MD [address] [place] [address] PCP - General FAMILY PRACTICE 03/21/16 12/07/20 Regulo Pandey MD [facility] [address] [place] [address] [place] Circuit Breaker Mechanic CARDIOVASCULAR DISEASE 03/21/16 documented as of this encounter
--- OUTSIDE RECORDS SUMMARY | 2024-08-09 17:42 | XMS_ITS | Encounter Summary ---
Author Organization [facility] Address [address] [place] [address]. [place] [address] [place] [address] Care Team Providers Care Morning Show Host Name Role Phone Jason Winters MD Primary Care Provider +1- [phone] Regulo Pandey MD Unavailable Reason for Visit * Reason Onset Date Comments Results 04/21/2016 Encounter Details Date Type Department Care Team (Late st Contact Info) Description 04/21/2016 Telephone [facility] [address] [id number] Ivory Lyn, RN Results Social History Tobacco Use Types Packs/Day [...] as of this encounter Progress Notes * Ivory Lyn RN - 04/21/2016 10:49 AM CDT Can you please let patient know that Dr. Pandey says only mild AI on echo, still wants stress test since her activity tolerance is going down, to see if she has CAD. Thanks, [facility] Received above email from Renetta Huitron, called pt, phone rings with no answer. Mica Lyn R.N. Called pt again, phone rings with no answer. Mica Lyn R.N. Called pt and notified of above echo results and orders per Renetta Ruthann-ORTHO/PROSTHETIC AIDE, told pt that assistant secretary will call her to schedule stress test, pt verbalizes understanding and has no further questions, pt would like a copy of her echo, call transferred to medical records. Mica Lyn R.N. documented in this encounter Plan of Treatment Not on file documented as of this encounter Visit Diagnoses Not on filedocumented in this encounter Care Teams Morning Show Host Relationship Specialty Start Date End Date Jason Winters MD [address] [place] [address] PCP - General FAMILY PRACTICE 03/21/16 12/07/20 Regulo Pandey MD [place] [address] [place] [address] [place] Process Improvement Manager CARDIOVASCULAR DISEASE 03/21/16 documented as of this encounter
--- OUTSIDE RECORDS SUMMARY | 2024-08-09 17:42 | XMS_ITS | Encounter Summary ---
Author Organization [facility] Address [address] [place] [address]. [place] [address] [place] [address] Care Team Providers Care Scrap Stripper Hand Name Role Phone Jason Winters MD Primary Care Provider + [phone] Regulo Pandey MD Unavailable Encounter Details Date Type Department Care Team (Late st Contact Info) Description 04/14/2016 Scan [place] [facility] AT [address] [address] Scanned, Documents Social History Tobacco Use Types Packs/Day Years [...] on filedocumented in this encounter Care Teams Scrap Stripper Hand Relationship Specialty Start Date End Date Jason Winters MD [address] [place] [address] PCP - General FAMILY PRACTICE 03/21/16 12/07/20 Regulo Pandey MD [facility] [address] [place] [address] [place] Air Bag Stripper CARDIOVASCULAR DISEASE 03/21/16 documented as of this encounter
--- OUTSIDE RECORDS SUMMARY | 2024-08-09 17:42 | XMS_ITS | Encounter Summary ---
Author Organization [facility] Address [address] [place] [address]. [place] [address] [place] [address] Care Team Providers Care Associate Dentist Name Role Phone Jason Winters MD Primary Care Provider +1- [phone] Regulo Pandey MD Unavailable Encounter Details Date Type Department Care Team (Late st Contact Info) Description 05/03/2016 Orders Only [place] [facility] [address] [place] [id number] Regulo Pandey MD [address] [address] Social History Tobacco Use Types Packs/Day [...] Procedure Name Priority Date/Time Associated Diagnosis Comments CARDIOLOGY GENERIC 05/03/2016 9: 17 AM CDT documented in this encounter Results * CARDIOLOGY GENERIC (05/03/2016 9:17 AM CDT) 05/03/2016 9:17 AM CDT Narrative [facility] - 05/03/2016 12:00 AM CDT ? STRESS TEST TRACING ONLY ? Pat.Name: ??LISA CONN ? Pat.ID: ?[id number] ? St.Date: ?? 05/03/2016 ? Refer.MD: ??[place] ? Exam Time: 9:17:00 AM ? Study Type:GISSELL NC STRESS TEST TRACING ONLY Height: ?64in ?Weight: ?121lb ? BSA: ? 1.58 m2 ?Age: ??1935,80Y ? Sex: ? FEMALE ?BP: ?137/59 ? HR: ?57 bpm ?Sonogrphr: Chris Disla RDCS ? Pat. Stat.:Outpatient ? Reason for Study:Shortness of breath, Dizziness Procedures:Regular Stress Test ? Race: ?C ? Risk Factors:AI ? Clinical Symptoms:Dizziness, Shortness of breath Surgery: ?? Regular Stress Test ? ++++++++++++++++++++++++++++++++++++ SUMMARY: ++++++++++++++++++++++++++++++++++++ Stress conclusion: 1. ? Clinically negative. 2. ? Electrocardiographically negative treadmill test for ischemia. _ 3. ? Excellent exercise capacity. _ ?? 4. ? Blood pressure response was normal. ??_ 5. ? Taylor Treadmill Score is 7.0, which indicates low risk. ++++++++++++++++++++++++++++++++++++ STRESS: ++++++++++++++++++++++++++++++++++++ Baseline Vital Signs: ?Intervention: Treadmill Test ECG: ? Normal sinus rhythm ? Protocol: ??Dereck HR: ?57 ?Duration: ??07:13 BP: ?137/59 ?METS: ?8.4 Stress Test Results: Max HR: ?151 ? Target HR: 141 ? % Target: ??107 % ? Max BP: ?180/78 ? Max RPP: ?? [id number] ? Symptoms and Complications: Terminated: Shortness of breath, Dizziness Symptoms: ??Shortness of breath, Dizziness Stress ECG Interp: No ischemic changes Signed 05/04/2016 08:43 AM Regulo Pandey M.D. Procedure Note Regulo Pandey MD - 05/04/2016 STRESS TEST TRACING ONLY Pat.Name: LISA CONN Pat.ID: [id number] .Date: 05/03/2016 Refer.: Singh Exam Time: 9:17:00 AM Study Type:GISSELL [place] STRESS TEST TRACING ONLY Height: 64in Weight: 121lb BSA: 1.58 m2 Age: 4 1935,80Y Sex: FEMALE BP: 137/59 HR: 57 bpm Sonogrphr: Chris Disla [facility] Pat. Stat.:Outpatient Reason for Study:Shortness of breath, Dizziness Procedures:Regular Stress Test Race: C Risk Factors:AI Clinical Symptoms:Dizziness, Shortness of breath Surgery: Regular Stress Test ++++++++++++++++++++++++++++++++++++ SUMMARY: ++++++++++++++++++++++++++++++++++++ Stress conclusion: 1. Clinically negative. 2. Electrocardiographically negative treadmill test for ischemia. _ 3. Excellent exercise capacity. _ 4. Blood pressure response was normal. _ 5. Taylor Treadmill Score is 7.0, which indicates low risk. ++++++++++++++++++++++++++++++++++++ STRESS: ++++++++++++++++++++++++++++++++++++ Baseline Vital Signs: Intervention: Treadmill Test ECG: Normal sinus rhythm Protocol: Dereck HR: 57 Duration: 07:13 BP: 137/59 METS: 8.4 Stress Test Results: Max HR: 151 Target HR: 141 % Target: 107 % Max BP: 180/78 Max RPP: [id number] Symptoms and Complications: Terminated: Shortness of breath, Dizziness Symptoms: Shortness of breath, Dizziness Stress ECG Interp: No ischemic changes Signed 05/04/2016 08:43 AM Regulo Pandey M.D. us Regulo Pandey MD [facility] Final Result Performing Organization Address City/State/[facility] Co de Phone Number [facility] documented in this encounter Visit Diagnoses Not on filedocumented in this encounter Care Teams Associate Dentist Relationship Specialty Start Date End Date Jason Winters MD [address] [place] [address] PCP - General FAMILY PRACTICE 03/21/16 12/07/20 Regulo Pandey MD [facility]. [facility] [address] [place] [address] [place] Banking Assistant CARDIOVASCULAR DISEASE 03/21/16 documented as of this encounter
--- OUTSIDE RECORDS SUMMARY | 2024-08-09 17:42 | XMS_ITS | Encounter Summary ---
Author Organization [facility] Address [address] [place] [address]. [place] [address] [place] [address] Care Team Providers Care Wheel Borer Name Role Phone Jason Winters MD Primary Care Provider + [phone] Regulo Pandey MD Unavailable Encounter Details Date Type Department Care Team (Late st Contact Info) Description 09/12/2011 Abstract [place]'s Patrol Sergeant [address] [facility] [place] [address] Jimbo Mock MD Social History Tobacco Use Types Packs/Day [...] on filedocumented in this encounter Care Teams Wheel Borer Relationship Specialty Start Date End Date Jason Winters MD [address] [place] [address] PCP - General FAMILY PRACTICE 03/21/16 12/07/20 Regulo Pandey MD [address] [place] [place] [address] [place] Rotary Cutter Feeder CARDIOVASCULAR DISEASE 03/21/16 documented as of this encounter
--- OUTSIDE RECORDS SUMMARY | 2024-08-09 17:42 | XMS_ITS | Encounter Summary ---
Author Organization [facility] Address [address] [place] [address]. [place] [address] [place] [address] Care Team Providers Care Director Part Name Role Phone Jason Winters MD Primary Care Provider + [phone] Regulo Pandey MD Unavailable Encounter Details Date Type Department Care Team (Late st Contact Info) Description 07/29/2011 Abstract [place]'s Hip Hop Dancer [address] [facility] [place] [address] Jimbo Mock MD Social History Tobacco Use [...] filedocumented in this encounter Care Teams Director Part Relationship Specialty Start Date End Date Jason Winters MD [address] [place] [address] PCP - General FAMILY PRACTICE 03/21/16 12/07/20 Regulo Pandey MD [address] [place] [address] [place] [address] [place] Service Station Helper CARDIOVASCULAR DISEASE 03/21/16 documented as of this encounter
--- OUTSIDE RECORDS SUMMARY | 2024-08-09 17:42 | XMS_ITS | Encounter Summary ---
Author Organization [facility] Address [address] [place] [address]. [place] [address] [place] [address] Care Team Providers Care Automation Sales Manager Name Role Phone Jason Winters MD Primary Care Provider [phone] Emmie Pandey MD Unavailable Encounter Details Date Type Department Care Team (Late st Contact Info) Description 04/15/2016 Orders Only [facility] [address] [place] [id number] Emmie Pandey MD [address] [address] Social History Tobacco Use Types [...] Priority Date/Time Associated Diagnosis Comments USE ECHOCARDIOGRAM 04/15/2016 10 :08 AM CDT documented in this encounter Results * USE ECHOCARDIOGRAM (04/15/2016 10:08 AM CDT) Anatomical Region Laterality Modality Cardiac Echocardiogram 04/15/2016 10:0 8 AM CDT Narrative 04/15/2016 12:00 AM CDT ?Echocardiography Report Pat.Name: ??LISA CONN ? Pat.ID: ?[id number] ? St.Date: ?? 04/15/2016 ? Refer.MD: ??EMMIE ? Exam Time: 10:08:00 AM ? Study Type:ECHO WITH CARDIAC DOPPLER COMP Height: ?64in ?Weight: ?120.75lb ? BSA: ? 1.58 m2 ?Age: ??1935,80Y ? Sex: ? FEMALE ?BP: ?132/59 ? HR: ?53 bpm ?Sonogrphr: Tiffanie Espinoza CCT, RCS Pat. Stat.:Outpatient ?CPT - 4: ?? [id number] ? Reason for Study:Murmur ? Procedures:2D, M-mode, Doppler, Color Flow Race: ?C ? ++++++++++++++++++++++++++++++++++++ SUMMARY: ++++++++++++++++++++++++++++++++++++ The left ventricular size is normal. The left ventricular systolic function is normal. Estimated left ventricular ejection fraction is 55-60%. Mild aortic regurgitation. Mild tricuspid regurgitation. ++++++++++++++++++++++++++++++++++++ FINDINGS: ++++++++++++++++++++++++++++++++++++ LV: ? The left ventricular size is normal. The left ventricular ?systolic ??function is normal. Estimated left ventricular ?ejection ??fraction is 55-60%. Left ventricular diastolic ?function ??is normal. RV: ? The right ventricular size is normal. Right ventricular ?systolic ??function is normal. LA: ? Left atrial size is normal. RA: ? The right atrial size is normal. IAS: ?Atrial septum appears intact. JANET: ? No evidence of pericardial effusion. AO: ? Normal aortic root. PA: ? Estimated right atrial pressure of 3 mmHg. Pulmonary artery ?not ??well visualized. SVn: ?Inferior vena cava shows >50% collapse with respiration ?consistent ??with normal right atrial pressure. AV: ? The aortic valve is trileaflet. No evidence of aortic valve ?stenosis. ??Mild aortic regurgitation. MV: ? No evidence of mitral valve stenosis. PV: ? No evidence of pulmonic valve stenosis. Mild pulmonic ?regurgitation. ??Pulmonic valve not well visualized. TV: ? Mild tricuspid regurgitation. Right ventricular systolic ?pressure ??is <30 mmHg. No evidence of tricuspid valve ?stenosis. ++++++++++++++++++++++++++++++++++++ MEASUREMENTS: ++++++++++++++++++++++++++++++++++++ ?DOPPLER LVOT ?? LVOTmnPG ? 2 mmHg ?LVOTpkPG ? 3 mmHg LVOT TVI ?21.8 cm ?LVOT SV ? 68 ml ?? Index ?43 ml/m? ? ? LVOTpkVel ? 90.2 cm/s (70-110) Right Atrium ?? RA Press ? 3 mmHg ? Pulmonary Veins ?? PVn A Dur ?134 msec ?PVnpkVels ? 58.7 cm/s PVnpkVeld ? 50.3 cm/s ?PVnVs/Vd ? 1.2 ? AV Forward Flow AV pkVel ? 120 cm/s (100-170) AV TVI ?30.5 cm ?? AV pkPG ?6 mmHg ?Area (TVI) ?2.24 cm2 ??(3- 5)* Index ?1.42 cm? ? ?/m? ? ? AV mnPG ?3 mmHg ?Area (Marck) ?2.36 cm2 ??(3- 5)* AV Regurg Flow AV P1/2t ? 672 msec ?AV pkPG ?104 mmHg AV pkVel ? 510 cm/s ? MV Forward Flow MV pkE ?61.7 cm/s (60-130) MV E/A ? 1.2 ? MV pkA ?51.8 cm/s ?MV DeTm ?197 msec PV Forward Flow PV AC ?173 msec ?PV pkPG ?2 mmHg PV pkVel ?67.9 cm/s (60-90) TV Regurg Flow TV pkVel ? 246 cm/s (30-70)* TV pkPG ? 24 mmHg Right Ventricle ?? RVsys P ? 27 mmHg ? Lat E' ?? Lat e ? 6.92 cm/s ? Lat E/E' ?? Lat E/e ?8.9 ? Med E' ?? Med e ? 5.46 cm/s ? Med E/E' ?? Med E/e ? 11.3 ? PV Antegrade Flow Acceleration Sl ?? 303 cm/s2 ? RA VOLUME ?? Atrial Dempsey ? 42 mm ? Atrial Dempsey ?? 10.1 cm2 Atrial Dempsey ?? 19.4 ml ? RV DIM BASAL ?? Distance ?32 mm ? RV DIM LENGTH ?? Distance ?62 mm ? RV DIM MID ?? Distance ?22 mm ?2D Left Ventricle ?? LngAxd ?7.61 cm ?LVESV BP ?27 ml ?? LngAxd ?6.73 cm ? LVIDd ?3.6 cm ?? (3.6-5.2) LV EDV ?61 ml ? LVIDs ? 2.36 cm ?? (2.3-3.9) LV EDV ?61 ml ?LV EF ? 57 % ?? LVEDV BP ?64 ml ?LV EF ? 59 % ?? LngAxs ?6.76 cm ?LV EF BP ?58 % ?? LngAxs ?5.91 cm ?LV SV ? 35 ml ?? LV ESV ?26 ml ?LV SV ? 36 ml ?? LV ESV ?25 ml ?LV SV BP ?37 ml ?? LVPW ?? LVPWd ?0.881 cm ? Ventricular Septum ?? IVSd ? 0.801 cm ? Left Atrium ?? LA a-p ? 2.2 cm ?? (2.8-3.4)* Aorta ?? Ao Rtd ? 2.7 cm ? LVOT ?? LVOT ? 2 cm ?LVOTArea ?3.14 cm2 Ratios ?? IVS ?MMODE Ratios ?? LA/Ao ? 1.04 ?(0.87-1.1) Aorta ?? Ao Rt ?2.3 cm ?? (2-3.7) Left Atrium ?? LAIDs ?2.4 cm ? Signed 04/19/2016 08:46 AM Emmie Pandey M.D. Procedure Note Emmie Pandey MD - 04/19/2016 Echocardiography Report Pat.Name: LISA CONN Pat.ID: [id number] .Date: 04/15/2016 Refer.MD: EMMIE Exam Time: 10:08:00 AM Study Type:ECHO WITH CARDIAC DOPPLER COMP Height: 64in Weight: 120.75lb BSA: 1.58 m2 Age: 4 1935,80Y Sex: FEMALE BP: 132/59 HR: 53 bpm Sonogrphr: Tiffanie Espinoza, [facility] Pat. Stat.:Outpatient CPT - 4: [id number] Reason for Study:Murmur Procedures:2D, M-mode, Doppler, Color Flow Race: C ++++++++++++++++++++++++++++++++++++ SUMMARY: ++++++++++++++++++++++++++++++++++++ The left ventricular size is normal. The left ventricular systolic function is normal. Estimated left ventricular ejection fraction is 55-60%. Mild aortic regurgitation. Mild tricuspid regurgitation. ++++++++++++++++++++++++++++++++++++ FINDINGS: ++++++++++++++++++++++++++++++++++++ LV: The left ventricular size is normal. The left ventricular systolic function is normal. Estimated left ventricular ejection fraction is 55-60%. Left ventricular diastolic function is normal. RV: The right ventricular size is normal. Right ventricular systolic function is normal. LA: Left atrial size is normal. RA: The right atrial size is normal. IAS: Atrial septum appears intact. JANET: No evidence of pericardial effusion. AO: Normal aortic root. PA: Estimated right atrial pressure of 3 mmHg. Pulmonary artery not well visualized. SVn: Inferior vena cava shows >50% collapse with respiration consistent with normal right atrial pressure. AV: The aortic valve is trileaflet. No evidence of aortic valve stenosis. Mild aortic regurgitation. MV: No evidence of mitral valve stenosis. PV: No evidence of pulmonic valve stenosis. Mild pulmonic regurgitation. Pulmonic valve not well visualized. TV: Mild tricuspid regurgitation. Right ventricular systolic pressure is <30 mmHg. No evidence of tricuspid valve stenosis. ++++++++++++++++++++++++++++++++++++ MEASUREMENTS: ++++++++++++++++++++++++++++++++++++ DOPPLER LVOT LVOTmnPG 2 mmHg LVOTpkPG 3 mmHg LVOT TVI 21.8 cm LVOT SV 68 ml Index 43 ml/m? ? ? LVOTpkVel 90.2 cm/s (70-110) Right Atrium RA Press 3 mmHg Pulmonary Veins PVn A Dur 134 msec PVnpkVels 58.7 cm/s PVnpkVeld 50.3 cm/s PVnVs/Vd 1.2 AV Forward Flow AV pkVel 120 cm/s (100-170) AV TVI 30.5 cm AV pkPG 6 mmHg Area (TVI) 2.24 cm2 (3-5)* Index 1.42 cm? ? ?/m? ? ? AV mnPG 3 mmHg Area (Marck) 2.36 cm2 (3-5)* AV Regurg Flow AV P1/2t 672 msec AV pkPG 104 mmHg AV pkVel 510 cm/s MV Forward Flow MV pkE 61.7 cm/s (60-130) MV E/A 1.2 MV pkA 51.8 cm/s MV DeTm 197 msec PV Forward Flow PV AC 173 msec PV pkPG 2 mmHg PV pkVel 67.9 cm/s (60-90) TV Regurg Flow TV pkVel 246 cm/s (30-70)* TV pkPG 24 mmHg Right Ventricle RVsys P 27 mmHg Lat E' Lat e 6.92 cm/s Lat E/E' Lat E/e 8.9 Med E' Med e 5.46 cm/s Med E/E' Med E/e 11.3 PV Antegrade Flow Acceleration Sl 303 cm/s2 RA VOLUME Atrial Dempsey 42 mm Atrial Dempsey 10.1 cm2 Atrial Dempsey 19.4 ml RV DIM BASAL Distance 32 mm RV DIM LENGTH Distance 62 mm RV DIM MID Distance 22 mm 2D Left Ventricle LngAxd 7.61 cm LVESV BP 27 ml LngAxd 6.73 cm LVIDd 3.6 cm (3.6-5.2) LV EDV 61 ml LVIDs 2.36 cm (2.3-3.9) LV EDV 61 ml LV EF 57 % LVEDV BP 64 ml LV EF 59 % LngAxs 6.76 cm LV EF BP 58 % LngAxs 5.91 cm LV SV 35 ml LV ESV 26 ml LV SV 36 ml LV ESV 25 ml LV SV BP 37 ml LVPW LVPWd 0.881 cm Ventricular Septum IVSd 0.801 cm Left Atrium LA a-p 2.2 cm (2.8-3.4)* Aorta Ao Rtd 2.7 cm LVOT LVOT 2 cm LVOTArea 3.14 cm2 Ratios IVS MMODE Ratios LA/Ao 1.04 (0.87-1.1) Aorta Ao Rt 2.3 cm (2-3.7) Left Atrium LAIDs 2.4 cm Signed 04/19/2016 08:46 AM Emmie Pandey M.D. Emmie Pandey MD ECHO Edited Result - Final documented in this encounter Visit Diagnoses Not on filedocumented in this encounter Care Teams Automation Sales Manager Relationship Specialty Start Date End Date Jason Winters MD [address] [place] [address] PCP - General FAMILY PRACTICE 03/21/16 12/07/20 Emmie Pandey MD [facility]. [address] [place] [address] [place] Nurse Rn Bsn CARDIOVASCULAR DISEASE 03/21/16 documented as of this encounter
--- OUTSIDE RECORDS SUMMARY | 2024-08-09 17:42 | XMS_ITS | Encounter Summary ---
Author Organization [facility] Address [address] [place] [address]. [place] [address] [place] [address] Care Team Providers Care Winding Operator Name Role Phone Jason Winters MD Primary Care Provider + [phone] Regulo Pandey MD Unavailable Encounter Details Date Type Department Care Team (Late st Contact Info) Description 04/15/2016 Abstract [facility] [address] [place], [place] [id number] Regulo Pandey MD [facility]. [address] [place] [address] Social History Tobacco Use Types [...] as of this encounter Visit Diagnoses Diagnosis Shortness of breath documented in this encounter Care Teams Winding Operator Relationship Specialty Start Date End Date Jason Winters MD [address] [place] [address] PCP - General FAMILY PRACTICE 03/21/16 12/07/20 Regulo Pandey MD [facility]. [address] [place] [address] [place] Party Plan Sales Agent CARDIOVASCULAR DISEASE 03/21/16 documented as of this encounter
--- OUTSIDE RECORDS SUMMARY | 2024-08-09 17:42 | XMS_ITS | Encounter Summary ---
Author Organization [facility] Address [address] [place] [address]. [place] [address] [place] [address] Care Team Providers Care Associate Director Of Sales Name Role Phone Jason Winters MD Primary Care Provider + [phone] Regulo Pandey MD Unavailable Encounter Details Date Type Department Care Team (Late st Contact Info) Description 01/12/[address] [facility] [place] [address] Mackenzie Watson MD Social History Tobacco Use Types Packs/Day [...] filedocumented in this encounter Care Teams Associate Director Of Sales Relationship Specialty Start Date End Date Jason Winters MD [address] [place] [address] PCP - General FAMILY PRACTICE 03/21/16 12/07/20 Regulo Pandey MD [facility] [address] [place] [address] [place] Maintenance And Operations Supervisor CARDIOVASCULAR DISEASE 03/21/16 documented as of this encounter
--- OUTSIDE RECORDS SUMMARY | 2024-08-09 17:46 | XMS_ITS | Encounter Summary ---
Author Organization [facility] Address [address] [place] [address] Care Team Providers Care Ostomy Rn Name Role Phone Christine Kendall MD Unavailable [phone] Sita Magana MD Unavailable [phone] Nabila King MD Primary Care Provider + [phone] Regulo Pandey MD Unavailable Gigi Méndez MD Unavailable [phone] Bc Martinez MD Unavailable [phone] Martin Correa MD Unavailable [phone] Reason for Visit * Reason Onset Date Comments MRI 03/13/2024 Encounter Details Date Type Department Care Team (Late st Contact Info) Description 03/13/[address] [facility] Medical Group [facility] [address] [place] [id number] Nabila King MD [address] [place] [address] MRI Social History Tobacco Use Types Packs/Day Years Used Date Smoking Tobacco: Never Smokeless Tobacco: Never Alcohol Use Standard Drinks/Week Comments No 0 (1 standard drink = 0.6 oz pur e alcohol) PHQ-2 Answer Date Recorded PHQ-2 Total Score (If total score is 3 or more points, staff should administer the PHQ-9) 0 08/10/2023 Comments Unknown Sex and Gender Information Value Date Recorded Sex Assigned at Not on file 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 King. Patient voiced understanding and is agreeable to avoid aggressive activities. She will call back to let us know when her test is scheduled. * Telephone Encounter - Vicenta Melo RN - 03/14/2024 1:18 PM CDT It is fine for her to wait until the specialist is back so they can get these tests done correctly.--just remind her to take it easy especially on her neck with her symptoms. Avoid a heart and do notdo any aggressive physical activities. Dr. Nabila King Attempted to call patient and no answer. Unable to leave a message. * Telephone Encounter - Lola Verdugo LPN - 03/13/2024 11:00 AM CDT FYI TO [facility] - see below message. * Telephone Encounter - Selma Krishnan - 03/13/2024 9:55 AM CDT Pt call me this morning and I returned her call, When pt came in on 03/06/24, [facility] wants pt to get 4 different MRI and pt has a pacemaker and can only go to [facility]. Pt called to tell us that she call them and they stated that the person working on her case is on vacation and the person wouldn't be back until next week. Pt wanted to go to [facility] because of the convenience for her. FYI to [facility] documented in this encounter Plan of Treatment Not on file documented as of this encounter Procedures Procedure Name Priority Date/Time Associated Diagnosis Comments SCAN - RADIOLOGY/IMAGING 03/13/2024 documented in this encounter Results * SCAN - RADIOLOGY/IMAGING (03/13/2024) Anatomical Region Laterality Modality Other us Provider Scanning Final Result documented in this encounter Visit Diagnoses Not on filedocumented in this encounter Care Teams Ostomy Rn Relationship Specialty Start Date End Date Nabila King MD [address] [facility] [address] [place] [address] PCP - General Internal Medicine 12/16/20 Christine Kendall MD Surgeon Ophthalmology 12/13/20 Sita Magana MD [address] [facility] [address] [place] [address] Consulting Physician Internal Medicine 12/13/20 Regulo Pandey MD [address] [place] [address] [address] [place] [address] Referring Physician Cardiovascular Disease 12/16/20 Gigi Méndez MD [address] [facility] [address] [place] [address] Referring Physician Cardiology 02/18/21 Bc Martinez MD [address] [place] [address] Referring Physician Cardiology 08/22/23 Martin Correa MD [address] [place] [address] Consulting Physician Cardiothoracic Surgery 08/22/23 documented as of this encounter
--- OUTSIDE RECORDS SUMMARY | 2024-08-09 17:46 | XMS_ITS | Encounter Summary ---
Author Organization [facility] Address [address] [place] [address] Care Team Providers Care Coil Wrapper Name Role Phone Unavailable Primary Care Provider Unavailabl e Encounter Details Date Type Department Care Team (Late st Contact Info) Description 09/11/2020 Lab Requisition [facility] Mobile Testing [address] [place], [place] [id number] King Lowe MD [address] [place] [address] [place] [address] Social History Tobacco Use Types Packs/Day Years Used Date Smoking Tobacco: Never Assessed Comments Unknown Sex and Gender Information Value Date Recorded Sex Assigned at Not on file Legal Sex Female 11:19 AM SOFTWARE WRITER Gender Identity Not on file Sexual Orientation Not on file documented as of this encounter Plan of Treatment Not on file documented as of this encounter Procedures Procedure Name Priority Date/Time Associated Diagnosis Comments SARS-COV-2 PCR [facility] ONLY Routine 09/11/2020 11:20 AM SOFTWARE WRITER documented in this encounter Visit Diagnoses Not on filedocumented in this encounter
--- OUTSIDE RECORDS SUMMARY | 2024-08-09 17:46 | XMS_ITS | Encounter Summary ---
Author Organization [facility] Address [address] [place] [address] Care Team Providers Care Barrel Rifler Broach Name Role Phone Christine Kendall MD Unavailable [phone] Sita Magana MD Unavailable [phone] Nabila King MD Primary Care Provider + [phone] Regulo Pandey MD Unavailable Gigi Méndez MD Unavailable [phone] Bc Martinez MD Unavailable [phone] Martin Correa MD Unavailable [phone] Encounter Details Date Type Department Care Team (Late st Contact Info) Description 06/13/2024 Telephone [facility] Medical [facility] [address] [place] [phone] Imelda Gaytan NP [address] [place] [address] Social History Tobacco Use Types Packs/Day Years [...] on file 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 Martinez We can discuss sleep if she was at our next office follow-up if she was interested Dr. Nabila King Called and spoke with the pt she verbalized understanding and will call us back with any questions or problems * Telephone Encounter - Imelda Gaytan NP - 06/13/2024 10:03 AM CDT Requesting refill on lorazepam for insomnia, previously rxd by Dr. Davis. #[phone] with no refills on 06/28/23. She just ran out a couple weeks ago. She would rather you fill it if you are willing. Please advise. documented in this encounter Plan of Treatment Not on file documented as of this encounter Visit Diagnoses Not on filedocumented in this encounter Care Teams Barrel Rifler Broach Relationship Specialty Start Date End Date Nabila King MD [address] [place] [address] [address] [place] [address] PCP - General Internal Medicine 12/16/20 Christine Kendall MD Surgeon Ophthalmology 12/13/20 Sita [address] [facility] [address] [place] [address] Consulting Physician Internal Medicine 12/13/20 Regulo Pandey MD [address] [place] [address] Referring Physician Cardiovascular Disease 12/16/20 Gigi Méndez MD [address] [facility] [address] [place] [address] Referring Physician Cardiology 02/18/21 Bc Martinez MD [address] [place] [address] Referring Physician Cardiology 08/22/23 Martin Correa MD [address] [place] [address] Consulting Physician Cardiothoracic Surgery 08/22/23 documented as of this encounter
--- OUTSIDE RECORDS SUMMARY | 2024-08-09 17:46 | XMS_ITS | Encounter Summary ---
Author Organization [facility] Address [address] [place] [address] Phone Care Team Providers Care Machine Veneer Repairer Name Role Phone Christine Kendall MD Unavailable [phone] Sita Magana MD Unavailable [phone] Nabila King MD Primary Care Provider +- [phone] Regulo Pandey MD Unavailable Gigi Méndez MD Unavailable [phone] Bc Martinez MD Unavailable [phone] Martin Correa MD Unavailable [phone] Reason for Referral * Diagnostic Imaging (Routine) - Closed Specialty Diagnoses / Procedures Referred By John bojorquez Referred To Contact Diagnoses Low-tension glaucoma, bilateral, severe stage Procedures Dyer Visual Field - OU - Both Eyes Christine Kendall MD [address] [facility] OPHTHALMOLOGY, [address] [address] Phone: tel: fax: [facility] (All Locations) Referral ID Status Reason Start Date Expiration Date Visits Re quested Visits Authorized [id number] Closed 10/24/2023 11/22/2024 1 1 T AID TEACHER Reason for Visit * Diagnostic Imaging (Routine) - Closed Specialty Diagnoses / Procedures Referred By Contclaudia t Referred To Contact Diagnoses Low-tension glaucoma, bilateral, severe stage Procedures Dyer Visual Field - OU - Both Eyes Christine Kendall MD [address] [facility] OPHTHALMOLOGY, [address] [place] [address] Phone: tel: fax: [facility] (All Locations) Referral ID Status Reason Start Date Expiration Date Visits Re quested Visits Authorized [id number] Closed 10/24/2023 11/22/2024 1 1 Encounter Details Date Type Department Care Team (Late st Contact Info) Description 10/30/2023 9:30 AM CDT Imaging Exam [facility] Ophthalmology [address] 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 Not on file documented as of this encounter Plan of Treatment Not on file documented as of this encounter Procedures Procedure Name Priority Date/Time Associated Diagnosis Comments DYER VISUAL FIELD - OU - BOTH EYES Routine 10/30/2023 10:00 AM CDT Low-tension glaucoma, bilateral, severe stage documented in this encounter Results * Dyer Visual Field - OU - Both Eyes (10/30/2023 10:00 AM CDT) Pattern Deviation OS 13.94 db CONTINUUM Pattern Deviation OD 11.28 db CONTINUUM Mean Deviation OS -16.01 db CONTINUUM Mean Deviation OD -12.61 db CONTINUUM Anatomical Region Laterality Modality Head Other Narrative 10/30/2023 5:38 PM CDT Right Eye Fixation was good. Cooperation was good. Reliability was good. Progression has been stable. Foveal threshold was normal. Findings include inferior arcuate defect, superior paracentral defect. Mean Deviation was -12.61 db. Pattern Deviation was 11.28 db. Left Eye Fixation was good. Cooperation was good. Reliability was good. Progression has been stable. Foveal threshold was normal. Findings include inferior arcuate defect, superior paracentral defect. Mean Deviation was -16.01 db. Pattern Deviation was 13.94 db. Christine Kendall MD OPHTH VISUAL FIELD Final Result documented in this encounter Visit Diagnoses Diagnosis Low-tension glaucoma, bilateral, severe stage- Primary documented in this encounter Care Teams Machine Veneer Repairer Relationship Specialty Start Date End Date Nabila King MD [address] [place] [address] [address] [place] [address] PCP - General Internal Medicine 12/16/20 Christine Kendall MD Surgeon Ophthalmology 12/13/20 Sita Magana MD [facility] [address] [place] [address] Consulting Physician Internal Medicine 12/13/20 Regulo Pandey MD [address] [place] [address] [address] [place] [address] Referring Physician Cardiovascular Disease 12/16/20 Gigi Méndez MD [address] [place] [address] [address] [place] [address] Referring Physician Cardiology 02/18/21 Bc Martinez MD [address] [place] [address] Referring Physician Cardiology 08/22/23 Martin Correa MD [address] [place] [address] Consulting Physician Cardiothoracic Surgery 08/22/23 documented as of this encounter
--- OUTSIDE RECORDS SUMMARY | 2024-08-09 17:46 | XMS_ITS | Encounter Summary ---
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 Name Role Phone Christine Kendall MD Unavailable [phone] Sita Magana MD Unavailable [phone] Nabila King MD Primary Care Provider + [phone] Regulo Pandey MD Unavailable Gigi Méndez MD Unavailable [phone] Bc Martinez MD Unavailable [phone] Martin Correa MD Unavailable [phone] Reason for Referral * MRI/CAT/PET Scan (Routine) - Closed Specialty Diagnoses / Procedures Referred By Contac t Referred To Contact Diagnoses Thoracic radiculopathy Vertebrobasilar artery syndrome Procedures MRI Thoracic Spine W WO Contrast MRI Thoracic Spine W WO Contrast Nabila King MD [address] [place] [address] Phone: tel: fax: [facility] [address] [place] [address] Phone: tel: fax: Referral ID Status Reason Start Date Expiration Date Visits Re quested Visits Authorized [id number] Closed 04/19/2024 10/19/2024 1 1 * MRI/CAT/PET Scan (Routine) - Closed Specialty Diagnoses / Procedures Referred By Contac t Referred To Contact Diagnoses Periodontal disease Dental infection Cervical radiculopathy Vertebrobasilar artery syndrome Procedures MRI Face W WO Contrast MRI Face W WO Contrast MRI Face W WO Contrast Nabila King MD [address] [place] [address] Phone: tel: fax: [facility] [address] [place] [address] Phone: tel: fax: Referral ID Status Reason Start Date Expiration Date Visits Re quested Visits Authorized [id number] Closed 04/27/2024 10/25/2024 1 1 * MRI/CAT/PET Scan (Routine) - Closed Specialty Diagnoses / Procedures Referred By Contac t Referred To Contact Diagnoses 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 Lumbar radiculopathy Procedures MRI Lumbar Spine W WO Contrast MRI Lumbar Spine W WO Contrast MRI Lumbar Spine W WO Contrast Nabila King MD [address] [place] [address] Phone: tel: fax: [facility] [address] [place] [address] Phone: tel: fax: Referral ID Status Reason Start Date Expiration Date Visits Re quested Visits Authorized [id number] Closed 04/19/2024 10/19/2024 1 1 * MRI/CAT/PET Scan (Routine) - Closed Specialty Diagnoses / Procedures Referred By Contac t Referred To Contact Diagnoses Cervical radiculopathy Vertebrobasilar artery syndrome Procedures MRI Cervical Spine W WO Contrast Nabila King MD [address] [place] [address] Phone: tel: fax: External Order Referral ID Status Reason Start Date Expiration Date Visits Re quested Visits Authorized [id number] Closed 04/10/2024 10/07/2024 1 1 * Diagnostic Imaging (Routine) - Closed Specialty Diagnoses / Procedures Referred By Contac t Referred To Contact Diagnoses Cervical radiculopathy Thoracic radiculopathy Procedures XR Spine Lumbar 2 or 3 Views Nabila King MD [address] [place] [address] Phone: tel: fax: [facility] [address] [place] [address] Referral ID Status Reason Start Date Expiration Date Visits Re quested Visits Authorized [id number] Closed 03/06/2024 04/05/2025 1 1 * Diagnostic Imaging (Routine) - Closed Specialty Diagnoses / Procedures Referred By Contac t Referred To Contact Diagnoses Thoracic radiculopathy Procedures XR Spine Thoracic 3 Vw Nabila King MD [address] [place] [address] Phone: tel: fax: [facility] [address] [place] [address] Referral ID Status Reason Start Date Expiration Date Visits Re quested Visits Authorized [id number] Closed 03/06/2024 04/05/2025 1 1 Reason for Visit * Reason Comments Follow-up Encounter Details Date Type Department Care Team (Late st Contact Info) Description 03/06/2024 8:15 AM CDT Office Visit [facility] [address] [address] Nabila King MD [address] [place] [id number] Periodontal disease (Primary Dx); Dental infection; Chronic constipation; 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; ASVD (arteriosclerotic vascular disease); Multiple-type hyperlipidemia; Cervical radiculopathy; Thoracic radiculopathy; Vertebrobasilar artery syndrome; Vitamin D deficiency; Acute on chronic diastolic heart failure (CMS/HCC) (HCC); Sick sinus syndrome (CMS/HCC) (HCC); Neuroforaminal stenosis of lumbar spine; Lumbar radiculopathy Social History Tobacco Use Types Packs/Day Years [...] on file Legal Sex Female 8:14 PM [employer] Gender Identity Not on file Sexual Orientation Not on file 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 Not on file documented as of this encounter Last Filed Vital Signs Vital Sign Reading Time Taken Comments Blood Pressure 140/76 03/06/2024 8:16 AM CDT Pulse 80 03/06/2024 8:16 AM CDT Temperature 36.3 ??C (97.3 ??F) 03/06/2024 8:16 AM CD T Respiratory Rate 18 03/06/2024 8:16 AM CDT Oxygen Saturation 98% 03/06/2024 8:16 AM CDT Inhaled Oxygen Concentration - - Weight 56.2 kg (124 lb) 03/06/2024 8:16 AM CDT Height - - Body Mass Index 21.28 09/06/2023 12:09 PM [employer] documented in this encounter Patient Instructions * Patient Instructions* Nabila King MD - 03/06/2024 8:15 AM CDT Lisa Conn to review this After Visit Summary ( AVS ) for accuracy & contact us if you find need for changes. == ORDERS FOR AMS STAFF TO ARRANGE: 1. C-spine x-ray , diagnosis = cervical radiculopathy 2. Thoracic spine x-ray today diagnosis = thoracic radiculopathy T1 through T 3. Lumbar spine and sacral x-ray diagnosis = 3. 3. 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 , schedule MRI thoracic spine, and lumbar spine in a pacemaker compatible MRI scanner 6. Labs before next visit = LDL cholesterol = hyperlipidemia MEDICATION CHANGES RECOMMENDED TODAY: For the constipation 1. MiraLax routine Plan to drink 10 oz of hot tea after about 6:00 p.m. at night using either sleepy time tea from Celestial seasonings or chamomile tea available at [facility] Fill the cup with 1 scoop of MiraLax for the constipation The combination will work for constipation and for the sleep disturbance 2 senna 1 or 2 tablets before bedtime depending on the ability to move the bowel through the colon.If you are having trouble straining to get soft stool out of the rectum then take 1 senna and if that does not work then take 2 senna For the tooth infection Amoxicillin 500 mg 3 times until the current supply is completed. You do have periodontal inflammatory changes and I want you to talk to the dentist about using water pick Start doxycycline 100 mg twice daily for 2 weeks and then go down to 50 mg daily For the bone health Vitamin D3 42483 units once weekly The MEDICATION LIST that your providers BELIEVE YOU ARE TAKING The Complete MEDICATION LIST at conclusion of visit 03/06/2024 Current Outpatient Medications: acetaminophen, 500 mg, oral, Q6H PRN apixaban, 2.5 mg, BID chlorhexidine, Dental provider dilTIAZem, 30 mg, oral, TID (Patient taking differently: 30 mg, oral, 2 times daily) ketorolac, 1 drop, each eye, Daily LORazepam, 1 mg, oral, Nightly PRN multivitamin, 1 capsule, oral, Daily cholecalciferol, 50,000 Units, oral, Weekly doxycycline hyclate, 50 mg, oral, Daily with dinner levothyroxine, 50 mcg, oral, Nightly polyethylene glycol, 17 g, oral, Nightly rosuvastatin, 10 mg, oral, Before dinner senna, 1-2 tablet, oral, Daily PRN ALLERGIES Allergies Allergen Reactions Sulfa (Sulfonamide Antibiotics) Unknown Clarithromycin Hives Mastisol Adhesive [Gum Bjgwbq-Zhfprs-Zttn-Alcohol] Hives and Rash Pt reports this is when EKG lead adhesive patches are used. 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 HOME SAFETY I recommend installing MOTION ACTIVATED LIGHTING for nighttime safety and REMOVAL OF ALL THROW RUGSFROM HOME. Motion activated hallway and bedroom lighting --AND-- removal of throw rugs from the home has been found in multiple studies to prevent falls and injuries. PLEASE REVIEW this CARE TEAM and advise our medical staff of any need for INCLUSIONS OR DELETIONS from this team list This will assist in keeping your medical provider team informed of important changes in your health. Patient Care Team: Nabila King MD as PCP - General (Internal Medicine) Christine Kendall MD as Surgeon (Ophthalmology) Sita Magana MD as Consulting Physician (Internal Medicine) Regulo Pandey MD as Referring Physician (Cardiovascular Disease) Gigi Méndez MD as Referring Physician (Cardiology) Bc Martinez MD as Referring Physician (Cardiology) Martin Correa MD as Consulting Physician (Cardiothoracic Surgery) Primary Pharmacy/DME suppliers: [facility] - [place], [place] - [address] [place] [address] Please inform us if you have a change before follow-up visit For further INTERNET RESEARCH on your medical concerns: I recommend [email or web address],NIH.[email or web address] = the National library of medicine online site. This is a consistently reliable site for your personal medical research. Be very careful with positional movements you do not pinch the neck midthoracic spine and lumbar spine until we have testing done We are considering referral to Roberto Hernández for minimally invasive surgery documented in this encounter Ordered Prescriptions Prescription Sig Dispense Quantity Refills Last Filled Start Date End Date cholecalciferol (VITAMIN D-3) 50,000 unit capsuleIndications: Vitamin D deficiency Take 1 capsule (50,000 Units total) by mouth once a week 60 capsule 4 rosuvastatin (CRESTOR) 10 mg tabletIndications:A (arteriosclerotic vascular disease),Multiple-t ype hyperlipidemia Take 1 tablet (10 mg total) by mouth daily before dinner 30 tablet 11 4 levothyroxine (SYNTHROID) 50 mcg tabletIndications:H ypothyroidism due to Alan's thyroiditis Take 1 tablet (50 mcg total) by mouth nightly 90 tablet 2 4 senna (SENOKOT) 8.6 mg tabletIndications:C hronic constipation Take 1-2 tablets by mouth daily as needed for constipation 200 tablet 2 4 doxycycline hyclate (VIBRAMYCIN) 50 mg capsuleIndications: Periodontal disease,Dental infection Take 1 capsule (50 mg total) by mouth daily with dinner Avoid dairy 30 minutes before to 60 minutes after taking the pill 100 capsule 3 4 polyethylene glycol (MIRALAX) 17 gram/dose bulk powderIndications:C hronic constipation Take 17 g by mouth nightly 850 g 11 06/13/20 documented in this encounter Progress Notes * Nabila King MD - 03/06/2024 8:15 AM CDT Images from the original note were not included. Patient ID: Lisa Conn is a 88 y.o. female. Lisa Conn presents for follow-up of her medication review and new medical concerns PLAN : ORDERS TO BE REVIEWED WITH her AT FOLLOW-UP VISIT: Return in about 4 weeks (around 04/03/2024) for Recheck. . Orders successfully placed before signing the note: Orders Placed This Encounter Procedures XR Spine Cervical Complete 4 or 5 Views XR Spine Thoracic 3 Vw XR Spine Lumbar 2 or 3 Views MRI Cervical Spine W WO Contrast MRI Thoracic Spine W WO Contrast MRI Lumbar Spine WO Contrast MRI Face W Contrast Cholesterol, LDL, direct MEDICATION CHANGES AND REFILL MANAGEMENT: medication list at conclusion of this encounter: Current Outpatient Medications: acetaminophen, 500 mg, oral, Q6H PRN apixaban, 2.5 mg, BID chlorhexidine, Dental provider dilTIAZem, 30 mg, oral, TID (Patient taking differently: 30 mg, oral, 2 times daily) ketorolac, 1 drop, each eye, Daily LORazepam, 1 mg, oral, Nightly PRN multivitamin, 1 capsule, oral, Daily cholecalciferol, 50,000 Units, oral, Weekly doxycycline hyclate, 50 mg, oral, Daily with dinner levothyroxine, 50 mcg, oral, Nightly polyethylene glycol, 17 g, oral, Nightly rosuvastatin, 10 mg, oral, Before dinner senna, 1-2 tablet, oral, Daily PRN HPI - ASSESSMENT & DIFFERENTIAL DIAGNOSIS Complexity of her medical problems required 62 minute [id number] office visit today 1. Periodontal disease 2. Dental infection She was seen along her history periodontal disease. Recently developed an infection in her left 1stincisor. 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 She received only a week of amoxicillin continues to have yellow drainage from the area. She also has periodontal di sease and previously been on Vibramycin. Mouth tissues appear to be healing. There is yellow mucoid exudate still coming from the bone graftplacement area. That does not not appear to be an abscess at the gumline or in the extraction cavity. The periodontal disease will require treatment. She will need further treatment for this infection and bone graft placement. Advise 100 mg doxycycline twice daily avoiding calcium with the medication and using this for a 2 week period of time decreasing down to just 50 mg nightly after that. Handwritten notes sent with herto bring to her dentist explaining what we are doing and she will also share this AVS summary. She was to avoid placement of anymore bone grafts or implants until after the bone is completely healed.Further MRI scan will be available with what is coming through on the neck MRI doxycycline hyclate (VIBRAMYCIN) 50 mg capsule; Take 1 capsule (50 mg total) by mouth daily with dinner Avoid dairy 30 minutes before to 60 minutes after taking the pill Dispense: 100 capsule; Refill: 3 3. Chronic constipation Very uncomfortable with the constipation issues. Changed her entire regimen to the MiraLax senna combination outlined on the AVS polyethylene glycol (MIRALAX) 17 gram/dose bulk powder; Take 17 g by mouth nightly Dispense: 850 g;Refill: 11 senna (SENOKOT) 8.6 mg tablet; Take 1-2 tablets by mouth daily as needed for constipation Dispense:200 tablet; Refill: 2 4. 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 ASVD (arteriosclerotic vascular disease) 11. 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 Martinez. She was recently to office. Pacemaker working well . Concern regarding right upper chest pain being neurological in nature versus cardiovascular invade nature. On my clinical impression is this is a neurological problem. I did have to contact Dr. Martinez to explain the situation and allow him to decide if further cardiovascular evaluation as needed. As I have July 2023 the updated echocardiogram from Dr. Martinez after AV sequential pacemakerand medical management of the heart disease shows complete normalization of the LVEF and diastolic heart pressures are also under good control 6. Multiple-type hyperlipidemia With her underlying heart disease she really needs to be on a statin. She agrees to start Crestor with retesting LDL before the next visit rosuvastatin (CRESTOR) 10 mg tablet; Take 1 tablet (10 mg total) by mouth daily before dinner Dispense: 30 tablet; Refill: 11 7. Vertebrobasilar syndrome 8. Cervical radiculopathy 9. Thoracic radiculopathy 10. Lumbar Sacral radiculopathy Various areas constellation of symptoms with episodes of numbness and pain to the back of the head in the C2 distribution followed by dimming of the vision in her right eye complete numbness and weakness of her right arm tenderness across her right chest into the T1 through T3 distribution Neurologic examination today with findings of mild diminished vibratory sense lower extremities 7/10, upper extremities 9/10. Reflexes normal upper lower extremities with downgoing toes. Kyphosis findings on the neck to explain a the underlying REVIEW OF SYSTEMS: Review of Systems Constitutional: Positive for activity change, appetite change and fatigue. Negative for fever and unexpected weight change. HENT: Positive for dental problem. Negative for congestion, hearing loss, postnasal drip, sinus pressure, sore throat and trouble swallowing. Eyes: Positive for visual disturbance (Associated with head numbness pain visual disturbance with her right arm weakness and right chest discomfort). Negative for pain, discharge and itching. Respiratory: Negative for cough, chest tightness, shortness of breath and wheezing. Cardiovascular: Negative for chest pain and palpitations. Gastrointestinal: Negative for abdominal distention, abdominal pain, anal bleeding, blood in stool,constipation, diarrhea, nausea, rectal pain and vomiting. Endocrine: Negative for cold intolerance, heat intolerance and polyuria. Genitourinary: Negative for difficulty urinating, dysuria, flank pain, frequency, hematuria, menstrual problem, pelvic pain and vaginal discharge. Musculoskeletal: Positive for arthralgias, back pain, gait problem, myalgias, neck pain and neck stiffness. Negative for joint swelling. Skin: Negative for color change and rash. Neurological: Positive for dizziness, weakness and numbness. Negative for headaches. Hematological: Negative for adenopathy. Does not bruise/bleed easily. Psychiatric/Behavioral: Negative for behavioral problems, dysphoric mood and sleep disturbance. Thepatient is not nervous/anxious. VITAL SIGNS: BP 140/76 (BP Location: Left arm, Patient Position: Sitting) Pulse 80 Temp 36.3 ??C (97.3 ??F) (Temporal) Resp 18 Wt 56.2 kg (124 lb) SpO2 98% BMI 21.28 kg/m?? Body mass index is 21.28 kg/m??. Wt Readings from Last 3 Encounters: 03/06/24 56.2 kg (124 lb) 09/06/23 55.3 kg (122 lb) 08/10/23 54.4 kg (120 lb) PHYSICAL EXAMINATION: Physical Exam Vitals and nursing note reviewed. Constitutional: General: She is not in acute distress. Appearance: Normal appearance. She is well-developed and normal weight. HENT: Head: Normocephalic and atraumatic. Right Ear: Tympanic membrane and external ear normal. Left Ear: Tympanic membrane and external ear normal. Nose: Nose normal. No congestion or rhinorrhea. Mouth/Throat: Mouth: Mucous membranes are moist. Pharynx: Oropharynx is clear. No oropharyngeal exudate or posterior oropharyngeal erythema. Comments: Extracted left 1st incisor with the yellow mucoid exudate and otherwise clean baseline. Diffuse periodontal inflammatory changes at the dental margins of remaining teeth Eyes: General: No scleral icterus. Extraocular Movements: Extraocular movements intact. Conjunctiva/sclera: Conjunctivae normal. Pupils: Pupils are equal, round, and reactive to light. Neck: Thyroid: No thyromegaly. Comments: Moderate kyphosis with no tenderness on right left lateral rotation little numbness on flexion Cardiovascular: Rate and Rhythm: Normal rate and regular rhythm. Heart sounds: Normal heart sounds. No murmur heard. No gallop. Pulmonary: Effort: Pulmonary effort is normal. Breath sounds: Normal breath sounds. No wheezing, rhonchi or rales. Abdominal: General: Bowel sounds are normal. There is no distension. Palpations: Abdomen is soft. There is no mass. Tenderness: There is no abdominal tenderness. There is right CVA tenderness. Hernia: No hernia is present. Musculoskeletal: General: Deformity present. No tenderness. Normal range of motion. Cervical back: Neck supple. Right lower leg: No edema. Left lower leg: No edema. Comments: Remarkable normal range motion of all joint areas with no inducible tenderness Lymphadenopathy: Cervical: No cervical adenopathy. Skin: General: Skin is warm and dry. Findings: No erythema, lesion or rash. Neurological: General: No focal deficit present. Mental Status: She is alert and oriented to person, place, and time. Mental status is at baseline. Cranial Nerves: No cranial nerve deficit. Sensory: Sensory deficit (mild diminished vibratory sense 7/10 in the feet, 9/10 in the arms) present. Motor: No weakness or abnormal muscle tone. Coordination: Coordination normal. Gait: Gait normal. Deep Tendon Reflexes: Reflexes normal. Psychiatric: Mood and Affect: Mood normal. Behavior: Behavior normal. Thought Content: Thought content normal. Judgment: Judgment normal. MOST RECENT LABS: Component Ref Range & Units 3 wk ago (02/08/24) 11 mo ago (04/11/23) 1 yr ago (09/09/22) 1 yr ago (07/04/22) 2 yr ago (10/11/21) 2 yr ago (06/18/21) 2 yr ago (05/21/21) TSH 0.450 - 4.500 uIU/mL 3.620 4.470 1.300 1.77 R 1.670 0.227 Low 0.11 Low Component Ref Range & Units 3 wk ago (02/08/24) 1 yr ago (09/09/22) 1 yr ago (07/04/22) 3 yr ago (12/16/20) LDL Chol, Direct 0 - 99 mg/dL 123 High 109 High 116 R, CM 122 R, CM Component Ref Range & Units 3 wk ago (02/08/24) 11 mo ago (04/11/23) 1 yr ago (09/09/22) 1 yr ago (07/04/22) 2 yr ago (03/19/21) 3 yr ago (12/16/20) Glucose 70 - 99 mg/dL 86 84 175 High 90 R, CM 91 R, CM 86 R, CM BUN 8 - 27 mg/dL 14 20 18 13 R 11 R 17 R Creatinine, Serum 0.57 - 1.00 mg/dL 0.84 0.87 0.80 0.70 R 0.67 R 0.73 R eGFR >59 mL/min/1.73 67 65 72 BUN/creat ratio 12 - 28 17 23 23 Sodium 134 - 144 mmol/L 138 138 139 137 R 139 R 139 R Potassium, sr 3.5 - 5.2 mmol/L 5.1 4.4 4.2 Chloride 96 - 106 mmol/L 101 101 99 100 R 101 R 100 R CO2 20 - 29 mmol/L 27 23 24 27 R 27 R 28 R Calcium 8.7 - 10.3 mg/dL 9.8 9.9 9.6 9.8 R 9.9 R 10.2 R Protein, sr 6.0 - 8.5 g/dL 6.4 6.7 6.5 Albumin 3.7 - 4.7 g/dL 4.4 4.5 4.4 R 4.8 R 4.8 R 4.6 R Globulin, Total 1.5 - 4.5 g/dL 2.0 2.2 2.1 Bilirubin, Total 0.0 - 1.2 mg/dL 0.6 0.7 0.3 0.6 R 0.7 R 0.4 R Alk phos 44 - 121 IU/L 75 70 75 78 R 61 R 71 R AST 0 - 40 IU/L 20 26 28 39 R 27 R 27 R ALT 0 - 32 IU/L 23 22 21 28 R 23 R 24 R Component Ref Range & Units 3 wk ago (02/08/24) 11 mo ago (04/11/23) 1 yr ago (09/09/22) 2 yr ago (03/19/21) 2 yr ago (03/19/21) WBC 3.4 - 10.8 x10E3/uL 4.7 5.1 6.7 5.6 R RBC 3.77 - 5.28 x10E6/uL 5.04 5.08 4.70 4.87 R Hgb 11.1 - 15.9 g/dL 15.4 15.7 14.6 15.3 R Hct 34.0 - 46.6 % 47.1 High 46.6 42.8 48.0 High R MCV 79 - 97 fL 94 92 91 98.6 High R MCH 26.6 - 33.0 pg 30.6 30.9 31.1 31.4 R MCHC 31.5 - 35.7 g/dL 32.7 33.7 34.1 31.9 Low R Rdw 11.7 - 15.4 % 13.8 13.1 13.1 14.2 R Platelets 150 - 450 x10E3/uL 256 266 258 Neutrophils Not Estab. % 53 41 66 Lymphs Not Estab. % 34 48 27 Monocytes Not Estab. % 9 8 5 Eosinophils Not Estab. % 3 2 1 Basophil pct Not Estab. % 1 1 1 0.5 R, CM Neutrophil abs 1.4 - 7.0 x10E3/uL 2.6 2.1 4.4 2.9 R Lymphs (Absolute) 0.7 - 3.1 x10E3/uL 1.6 2.4 1.8 Monocyte abs 0.1 - 0.9 x10E3/uL 0.4 0.4 0.3 0.4 R Eosinophils, abs 0.0 - 0.4 x10E3/uL 0.1 0.1 0.1 Basophils, abs 0.0 - 0.2 x10E3/uL 0.1 0.1 0.1 Immature Granulocytes Not Estab. % 0 0 0 Immature Grans (Abs) 0.0 - 0.1 x10E3/uL 0.0 0.0 0.0 Component Ref Range & Units 3 wk ago 2 yr ago Erythrocyte sedimentation rate 0 - 40 mm/hr 2 4 R Resulting Agency [facility] Exam on 10/30/2023 Component Date Value Pattern Deviation OS 10/30/2023 13.94 Pattern Deviation OD 10/30/2023 11.28 Mean Deviation OS 10/30/2023 -16.01 Mean Deviation OD 10/30/2023 -12.61 Any Patient specific educational requests are printed on letterhead associated with this visit Lisa Conn personal health goals were negotiated and agreed upon today. Assessment and plan for new and ongoing medical problems were reviewed and agreed upon. Risk, benefit and side effects of medications were reviewed and sent eRx to the patient's requestedpharmacies. All current lab work was reviewed and discussed. Appropriate labs and referrals planned for the follow-up visit were reviewed, discussed and completed. The discussion is summarized in this Assessment and Plan shared with her and is available on the AVS. Nabila King MD == MEDICATION AND LABORATORY LINKING OF ALL WERE COMPLETED TODAY FOR THE CODE REVIEW TEAM == ICD-10-CM 1. Periodontal disease K05.6 doxycycline hyclate (VIBRAMYCIN) 50 mg capsule MRI Face W Contrast 2. Dental infection K04.7 doxycycline hyclate (VIBRAMYCIN) 50 mg capsule MRI Face W Contrast 3. Chronic constipation K59.09 polyethylene glycol (MIRALAX) 17 gram/dose bulk powder senna (SENOKOT) 8.6 mg tablet 4. 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 ASVD (arteriosclerotic vascular disease) I70.90 rosuvastatin (CRESTOR) 10 mg tablet 6. Multiple-type hyperlipidemia E78.2 rosuvastatin (CRESTOR) 10 mg tablet Cholesterol, LDL, direct 7. Cervical radiculopathy M54.12 XR Spine Cervical Complete 4 or 5 Views XR Spine Lumbar 2 or 3 Views MRI Cervical Spine W WO Contrast MRI Lumbar Spine WO Contrast MRI Face W Contrast 8. Thoracic radiculopathy M54.14 XR Spine Thoracic 3 Vw XR Spine Lumbar 2 or 3 Views MRI Thoracic Spine W WO Contrast 9. 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 Vitamin D deficiency E55.9 cholecalciferol (VITAMIN D-3) 50,000 unit capsule 11. Acute on chronic diastolic heart failure (CMS/HCC) (HCC) I50.33 12. Sick sinus syndrome (CMS/HCC) ([facility]) I49.5 documented in this encounter Miscellaneous Notes * Addendum Note - Ban Damon - 03/06/2024 8:15 AM CDTAddended by: BAN DAMON on: 03/21/2024 08:11 AM Modules accepted: Orders * Addendum Note - Estrella Montanez - 03/06/2024 8:15 AM CDTAddended by: ESTRELLA MONTANEZ on: 03/27/2024 09:03 AM Modules accepted: Orders * Addendum Note - Myke Dumont - 03/06/2024 8:15 AM CDTAddended by: MYKE DUMONT on: 04/11/2024 03:36 PM Modules accepted: Orders * Addendum Note - Myke Dumont - 03/06/2024 8:15 AM CDTAddended by: MYKE DUMONT on: 04/18/2024 03:26 PM Modules accepted: Orders documented in this encounter Plan of Treatment Scheduled Orders Name Type Priority Associated Diagnoses Orde r Schedule MRI Cervical Spine W WO Contrast Imaging Schedule Routine, Read Routine (OP Routine) Cervical radiculopathy Vertebrobasilar artery syndrome Expected: 03/06/2024, Expires: 03/06/2025 MRI Lumbar Spine W WO Contrast Imaging Schedule SUSANA, Read SUSANA (Appt Today, Awaiting Results) 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 Lumbar radiculopathy Expected: 04/18/2024, Expires: 04/11/2025 MRI Face W WO Contrast Imaging Schedule SUSANA, Read SUSANA (Appt Today, Awaiting Results) Periodontal disease Dental infection Cervical radiculopathy Vertebrobasilar artery syndrome Expected: 04/18/2024, Expires: 03/27/2025 MRI Thoracic Spine W WO Contrast Imaging Schedule SUSANA, Read SUSANA (Appt Today, Awaiting Results) Thoracic radiculopathy Vertebrobasilar artery syndrome Expected: 04/18/2024, Expires: 03/06/2025 documented as of this encounter Procedures Procedure Name Priority Date/Time Associated Diagnosis Comments CHOLESTEROL, LDL, DIRECT Routine 05/28/2024 8:15 AM CDT Multiple-type hyperlipidemia documented in this encounter Results * Cholesterol, LDL, direct (05/28/2024 8:15 AM CDT) LDL Chol, Direct 64 0 - 99 mg/dL [facility] - 01 Blood 05/28/2024 8:15 AM CDT 05/28/2024 Narrative [facility] - 05/29/2024 7:37 AM CDT Performed at: ??01 - [facility] [address] [place], [place] ??[id number] Java Mobile Developer: Darek Farrell PhD, Phone: ??[phone] Nabila King MD LAB BLOOD ORDERABLES Final Result [facility] 01 * XR Spine Lumbar 2 or 3 Views (03/06/2024 10:10 AM CDT) Anatomical Region Laterality Modality Spine N/A Computed Radiogr aphy 03/06/2024 7:00 PM CDT Narrative 03/06/2024 7:06 PM CDT EXAM DESCRIPTION: XR SPINE LUMBAR 2 OR 3 VIEWS; XR SPINE THORACIC 3 VIEWS; XR SPINE CERVICAL COMPLETE 4 OR 5 VW REASON FOR STUDY: foraminal stenosis with radiculopathy, perineural sacral cyst ?? Pain to the entire spine for many years ??No trauma ??No surgery ??; horacic radiculopathy T1 through T 3. ??Lumbar spine and sacral x-ray diagnosis ?? Pain to the entire spine for many years ??No trauma ??No surgery ??; cervical radiculopathy ? FINDINGS: Five views cervical spine, three views thoracic spine and three views lumbar spine submitted with comparison 03/02/2022. Cervical spine: There is a chronic C5 fracture. ??The lateral masses of C1 properly articulate on C2. ??There is mild C3-C5 and moderate C5-C7 degenerative disc disease. ?? There is multilevel cervical facet osteoarthritis with bilateral cervical foraminal impingement. Thoracic spine: No acute fractures are identified. ??There is multilevel thoracic degenerative disc disease. ??There is mild dextrocurvature of the mid thoracic spine and levocurvature of the upper thoracic spine. ??Left-sided pacer is in place. Lumbar spine: No acute fractures are identified. ??There is grade 1 anterolisthesis of L4 on L5. ??There is snct-qq-bhejpxar L2-L3 and L4-S1 degenerative disc disease. ?? Inferior lumbar facet osteoarthritis is present. IMPRESSION: Mild C3-C5 and moderate C5-C7 degenerative disc disease with multilevel cervical facet osteoarthritis and bilateral cervical foraminal impingement. Mild multilevel thoracic degenerative disc disease. Azyp-vf-mfidxkgf L2-L3 and L4-S1 degenerative disc disease with grade 1 anterolisthesis of L4 on L5 and inferior lumbar facet osteoarthritis. THIS IS AN ELECTRONICALLY VERIFIED FINAL REPORT 03/06/2024 7:06 PM - Electronically signed by ??Gigi Aguilar M.D. MF: JAMIL D: ??03/06/2024 7:06 PM T: ??03/06/2024 7:06 PM Report ID: [id number] Reading Location: ??[id number] Procedure Note Gigi Aguilar MD - 03/06/2024 EXAM DESCRIPTION: XR SPINE LUMBAR 2 OR 3 VIEWS; XR SPINE THORACIC 3 VIEWS; XR SPINE CERVICAL COMPLETE 4 OR 5 VW REASON FOR STUDY: foraminal stenosis with radiculopathy, perineural sacral cyst Pain to the entire spine for many years No trauma No surgery ; horacic radiculopathy T1 through T 3. Lumbar spine and sacral x-ray diagnosis Pain to the entire spine for many years No trauma No surgery ; cervical radiculopathy FINDINGS: Five views cervical spine, three views thoracic spine and three viewslumbar spine submitted with comparison 03/02/2022. Cervical spine: There is a chronic C5 fracture. The lateral masses of C1 properlyarticulate on C2. There is mild C3-C5 and moderate C5-C7 degenerative disc disease. There is multilevel cervical facet osteoarthritis with bilateral cervical foraminal impingement. Thoracic spine: No acute fractures are identified. There is multilevel thoracicdegenerative disc disease. There is mild dextrocurvature of the mid thoracic spine and levocurvature of the upper thoracic spine. Left-sided pacer is in place. Lumbar spine: No acute fractures are identified. There is grade 1 anterolisthesis of L4on L5. There is exwa-fs-vivtagim L2-L3 and L4-S1 degenerative disc disease. Inferior lumbar facet osteoarthritis is present. IMPRESSION: Mild C3-C5 and moderate C5-C7 degenerative disc disease with multilevel cervical facet osteoarthritis and bilateral cervical foraminalimpingement. Mild multilevel thoracic degenerative disc disease. Qydb-gh-mpjwnumo L2-L3 and L4-S1 degenerative disc disease with grade 1 anterolisthesis of L4 on L5 and inferior lumbar facet osteoarthritis. THIS IS AN ELECTRONICALLY VERIFIED FINAL REPORT 03/06/2024 7:06 PM - Electronically signed by Gigi Aguilar M.D. MF: JAMIL Report ID: [id number] Reading Location: [place] [address] us Nabila King MD IMG XR PROCEDURES Final Re sult * XR Spine Thoracic 3 Vw (03/06/2024 10:10 AM CDT) Anatomical Region Laterality Modality Spine N/A Computed Radiogr aphy 03/06/2024 7:00 PM CDT Narrative 03/06/2024 7:06 PM CDT EXAM DESCRIPTION: XR SPINE LUMBAR 2 OR 3 VIEWS; XR SPINE THORACIC 3 VIEWS; XR SPINE CERVICAL COMPLETE 4 OR 5 VW REASON FOR STUDY: foraminal stenosis with radiculopathy, perineural sacral cyst ?? Pain to the entire spine for many years ??No trauma ??No surgery ??; horacic radiculopathy T1 through T 3. ??Lumbar spine and sacral x-ray diagnosis ?? Pain to the entire spine for many years ??No trauma ??No surgery ??; cervical radiculopathy ? FINDINGS: Five views cervical spine, three views thoracic spine and three views lumbar spine submitted with comparison 03/02/2022. Cervical spine: There is a chronic C5 fracture. ??The lateral masses of C1 properly articulate on C2. ??There is mild C3-C5 and moderate C5-C7 degenerative disc disease. ?? There is multilevel cervical facet osteoarthritis with bilateral cervical foraminal impingement. Thoracic spine: No acute fractures are identified. ??There is multilevel thoracic degenerative disc disease. ??There is mild dextrocurvature of the mid thoracic spine and levocurvature of the upper thoracic spine. ??Left-sided pacer is in place. Lumbar spine: No acute fractures are identified. ??There is grade 1 anterolisthesis of L4 on L5. ??There is hxph-oz-lfvspeya L2-L3 and L4-S1 degenerative disc disease. ?? Inferior lumbar facet osteoarthritis is present. IMPRESSION: Mild C3-C5 and moderate C5-C7 degenerative disc disease with multilevel cervical facet osteoarthritis and bilateral cervical foraminal impingement. Mild multilevel thoracic degenerative disc disease. Axue-ma-twqmvhsf L2-L3 and L4-S1 degenerative disc disease with grade 1 anterolisthesis of L4 on L5 and inferior lumbar facet osteoarthritis. THIS IS AN ELECTRONICALLY VERIFIED FINAL REPORT 03/06/2024 7:06 PM - Electronically signed by ??Gigi Aguilar M.D. MF: JAMIL D: ??03/06/2024 7:06 PM T: ??03/06/2024 7:06 PM Report ID: [id number] Reading Location: ??[id number] Procedure Note Gigi Aguialr MD - 03/06/2024 EXAM DESCRIPTION: XR SPINE LUMBAR 2 OR 3 VIEWS; XR SPINE THORACIC 3 VIEWS; XR SPINE CERVICAL COMPLETE 4 OR 5 VW REASON FOR STUDY: foraminal stenosis with radiculopathy, perineural sacral cyst Pain to the entire spine for many years No trauma No surgery ; horacic radiculopathy T1 through T 3. Lumbar spine and sacral x-ray diagnosis Pain to the entire spine for many years No trauma No surgery ; cervical radiculopathy FINDINGS: Five views cervical spine, three views thoracic spine and three viewslumbar spine submitted with comparison 03/02/2022. Cervical spine: There is a chronic C5 fracture. The lateral masses of C1 properlyarticulate on C2. There is mild C3-C5 and moderate C5-C7 degenerative disc disease. There is multilevel cervical facet osteoarthritis with bilateral cervical foraminal impingement. Thoracic spine: No acute fractures are identified. There is multilevel thoracicdegenerative disc disease. There is mild dextrocurvature of the mid thoracic spine and levocurvature of the upper thoracic spine. Left-sided pacer is in place. Lumbar spine: No acute fractures are identified. There is grade 1 anterolisthesis of L4on L5. There is sgbd-es-iptylqgd L2-L3 and L4-S1 degenerative disc disease. Inferior lumbar facet osteoarthritis is present. IMPRESSION: Mild C3-C5 and moderate C5-C7 degenerative disc disease with multilevel cervical facet osteoarthritis and bilateral cervical foraminalimpingement. Mild multilevel thoracic degenerative disc disease. Ubwa-ml-nccgkcra L2-L3 and L4-S1 degenerative disc disease with grade 1 anterolisthesis of L4 on L5 and inferior lumbar facet osteoarthritis. THIS IS AN ELECTRONICALLY VERIFIED FINAL REPORT 03/06/2024 7:06 PM - Electronically signed by Gigi Aguilar M.D. MF: JAMIL Report ID: [id number] Reading Location: [place] [address] us Nabila King MD IMG XR PROCEDURES Final Re sult * XR Spine Cervical Complete 4 or 5 Views (03/06/2024 10:10 AM CDT) Anatomical Region Laterality Modality Spine N/A Computed Radiogr aphy 03/06/2024 7:00 PM CDT Narrative 03/06/2024 7:06 PM CDT EXAM DESCRIPTION: XR SPINE LUMBAR 2 OR 3 VIEWS; XR SPINE THORACIC 3 VIEWS; XR SPINE CERVICAL COMPLETE 4 OR 5 VW REASON FOR STUDY: foraminal stenosis with radiculopathy, perineural sacral cyst ?? Pain to the entire spine for many years ??No trauma ??No surgery ??; horacic radiculopathy T1 through T 3. ??Lumbar spine and sacral x-ray diagnosis ?? Pain to the entire spine for many years ??No trauma ??No surgery ??; cervical radiculopathy ? FINDINGS: Five views cervical spine, three views thoracic spine and three views lumbar spine submitted with comparison 03/02/2022. Cervical spine: There is a chronic C5 fracture. ??The lateral masses of C1 properly articulate on C2. ??There is mild C3-C5 and moderate C5-C7 degenerative disc disease. ?? There is multilevel cervical facet osteoarthritis with bilateral cervical foraminal impingement. Thoracic spine: No acute fractures are identified. ??There is multilevel thoracic degenerative disc disease. ??There is mild dextrocurvature of the mid thoracic spine and levocurvature of the upper thoracic spine. ??Left-sided pacer is in place. Lumbar spine: No acute fractures are identified. ??There is grade 1 anterolisthesis of L4 on L5. ??There is sstt-ew-ycqmyimr L2-L3 and L4-S1 degenerative disc disease. ?? Inferior lumbar facet osteoarthritis is present. IMPRESSION: Mild C3-C5 and moderate C5-C7 degenerative disc disease with multilevel cervical facet osteoarthritis and bilateral cervical foraminal impingement. Mild multilevel thoracic degenerative disc disease. Lbbo-kw-rrtpjyzc L2-L3 and L4-S1 degenerative disc disease with grade 1 anterolisthesis of L4 on L5 and inferior lumbar facet osteoarthritis. THIS IS AN ELECTRONICALLY VERIFIED FINAL REPORT 03/06/2024 7:06 PM - Electronically signed by ??Gigi Aguilar M.D. MF: JAMIL D: ??03/06/2024 7:06 PM T: ??03/06/2024 7:06 PM Report ID: [id number] Reading Location: ??[id number] Procedure Note Gigi Aguilar MD - 03/06/2024 EXAM DESCRIPTION: XR SPINE LUMBAR 2 OR 3 VIEWS; XR SPINE THORACIC 3 VIEWS; XR SPINE CERVICAL COMPLETE 4 OR 5 VW REASON FOR STUDY: foraminal stenosis with radiculopathy, perineural sacral cyst Pain to the entire spine for many years No trauma No surgery ; horacic radiculopathy T1 through T 3. Lumbar spine and sacral x-ray diagnosis Pain to the entire spine for many years No trauma No surgery ; cervical radiculopathy FINDINGS: Five views cervical spine, three views thoracic spine and three viewslumbar spine submitted with comparison 03/02/2022. Cervical spine: There is a chronic C5 fracture. The lateral masses of C1 properlyarticulate on C2. There is mild C3-C5 and moderate C5-C7 degenerative disc disease. There is multilevel cervical facet osteoarthritis with bilateral cervical foraminal impingement. Thoracic spine: No acute fractures are identified. There is multilevel thoracicdegenerative disc disease. There is mild dextrocurvature of the mid thoracic spine and levocurvature of the upper thoracic spine. Left-sided pacer is in place. Lumbar spine: No acute fractures are identified. There is grade 1 anterolisthesis of L4on L5. There is qfkh-hf-tnqlarqs L2-L3 and L4-S1 degenerative disc disease. Inferior lumbar facet osteoarthritis is present. IMPRESSION: Mild C3-C5 and moderate C5-C7 degenerative disc disease with multilevel cervical facet osteoarthritis and bilateral cervical foraminalimpingement. Mild multilevel thoracic degenerative disc disease. Bsie-tp-vpzrdqks L2-L3 and L4-S1 degenerative disc disease with grade 1 anterolisthesis of L4 on L5 and inferior lumbar facet osteoarthritis. THIS IS AN ELECTRONICALLY VERIFIED FINAL REPORT 03/06/2024 7:06 PM - Electronically signed by Gigi Aguilar M.D. 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 ASVD (arteriosclerotic vascular disease) Multiple-type hyperlipidemia Other and unspecified hyperlipidemia Cervical radiculopathy Brachial neuritis or radiculitis nos Thoracic radiculopathy Thoracic or lumbosacral neuritis or radiculitis, unspecified Vertebrobasilar artery syndrome Vitamin D deficiency Acute on chronic diastolic heart failure (CMS/HCC) (HCC) Acute on chronic diastolic heart failure Sick sinus syndrome (CMS/HCC) (HCC) Sinoatrial node dysfunction Neuroforaminal stenosis of lumbar spine Lumbar radiculopathy Thoracic or lumbosacral neuritis or radiculitis, unspecified Cervical radiculopathy Brachial neuritis or radiculitis nos Thoracic radiculopathy Thoracic or lumbosacral neuritis or radiculitis, unspecified documented in this encounter Discontinued Medications Medication Sig Discontinue Reason Start Date End Da te melatonin 5 mg tablet Take 1 tablet (5 mg total) by mouth nightly Therapy completed 03/06/2024 amoxicillin 500 mg capsule Dental provider Therapy completed 03/01/2024 03/06/2024 levothyroxine (SYNTHROID) 50 mcg tabletIndications:Hypoth yroidism due to Alan's thyroiditis Take 1 tablet (50 mcg total) by mouth nightly Reorder 08/10/2023 03/06/2024 documented as of this encounter Historical Medications * This list may reflect changes made after this encounter. chlorhexidine (PERIDEX) 0.12 % solution Dental provider 03/01/2024 06/13/2024 amoxicillin 500 mg capsule Dental provider 03/01/2024 03/06/2024 added in this encounter Care Teams Wax Pot Tender Relationship Specialty Start Date End Date Nabila King MD [address] [facility] [address] [place] [address] PCP - General Internal Medicine 12/16/20 Christine Kendall MD Surgeon Ophthalmology 12/13/20 Sita Magana MD [address] [facility] [address] [place] [address] Consulting Physician Internal Medicine 12/13/20 Regulo Pandey MD [address] [place] [address] [address] [place] [address] Referring Physician Cardiovascular Disease 12/16/20 Gigi Méndze MD [address] [place] [address] [address] [place] [address] Referring Physician Cardiology 02/18/21 Bc Martinez MD [address] [place] [address] Referring Physician Cardiology 08/22/23 Martin Correa MD [address] [place] [address] Consulting Physician Cardiothoracic Surgery 08/22/23 documented as of this encounter
--- OUTSIDE RECORDS SUMMARY | 2024-08-09 17:46 | XMS_ITS | Encounter Summary ---
Author Organization [facility] Healthcare Address [address] [place] [address] Care Team Providers Care Rougher Machine Operator Name Role Phone Christine Kendall MD Unavailable [phone] Sita Magana MD Unavailable [phone] Nabila King MD Primary Care Provider [phone] Regulo Pandey MD Unavailable Gigi Méndez MD Unavailable [phone] Bc Martinez MD Unavailable [phone] Martin Correa MD Unavailable [phone] Gildardo Gonzáles Si, MD Unavailable Encounter Details Date Type Department Care Team (Late st Contact Info) Description 09/22/2023 Orders Only [facility] [address] [place] [address] Scanning, Provider Social History Tobacco Use Types Packs/Day Years [...] on file Legal Sex 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 Gender Identity Not on file Sexual Orientation Not on file 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 Not on file documented as of this encounter Plan of Treatment Not on file documented as of this encounter Procedures Procedure Name Priority Date/Time Associated Diagnosis Comments SCAN - RADIOLOGY/IMAGING 09/22/2023 documented in this encounter Results * SCAN - RADIOLOGY/IMAGING (09/22/2023) Anatomical Region Laterality Modality Other Provider Scanning Final Result documented in this encounter Visit Diagnoses Not on filedocumented in this encounter Care Teams Rougher Machine Operator Relationship Specialty Start Date End Date Nabila King MD [address] [place] [address] [address] [place] [address] PCP - General Internal Medicine 12/16/20 Christine Kendall MD Surgeon Ophthalmology 12/13/20 Sita Magana MD [address] [place] [address] [address] [place] [address] Consulting Physician Internal Medicine 12/13/20 Regulo Pandey MD [address] [place] [address] [address] [place] [address] Referring Physician Cardiovascular Disease 12/16/20 Gigi Méndez MD [address] [place] [address] [address] [place] [address] Referring Physician Cardiology 02/18/21 Bc Martinez MD [address] [place] [address] Referring Physician Cardiology 08/22/23 Martin Correa MD [address] [place] [address] Consulting Physician Cardiothoracic Surgery 08/22/23 [facility], Gildardo Gomez MD [address] [facility] [facility] [address] [address] [place] [id number] Consulting Physician Neurology 07/09/24 documented as of this encounter
--- OUTSIDE RECORDS SUMMARY | 2024-08-09 17:46 | XMS_ITS | Encounter Summary ---
Author Organization [facility] Healthcare Address [address] [place] [address] Care Team Providers Care Poiser Balance Name Role Phone Christine Styles MD Unavailable [phone] Sita Magana MD Unavailable [phone] Nabila King MD Primary Care Provider + [phone] Regulo Pandey MD Unavailable Gigi Méndez MD Unavailable [phone] Bc Martinez MD Unavailable [phone] Martin Correa MD Unavailable [phone] Reason for Referral * Consultation (Urgent) - Authorized Specialty Diagnoses / Procedures Referred By Contac t Referred To Contact Neurology Diagnoses Pain Numbness Dizziness Chronic bilateral low back pain, unspecified whether sciatica present Chronic neck pain Neuroforaminal stenosis of lumbar spine Nabila King MD [address] [place] [address] Phone: tel: fax: Gildardo Gonzáles Si, MD [address] [place] [address] [address] Phone: tel: fax: Referral ID Status Reason Start Date Expiration Date Visits Requested Visits Authorized [id number] Authorized Specialty Services Required 08/03/2025 12 12 Question Answer Please select the performing region: [facility] [[id number]] Please select the performing department: [facility] NEURO BLVLE 250 [[id number]] # of visits: 12 Comments Urgent/SUSANA Refer to [facility] [place] Patient has something going on in her neck and shoulder that are leading to the pain problems and numbness neurologic impingement. Please contact patient to set up SUSANA appt.. Thank You! 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 Neurology-Dr. Abarca is booked out. [facility] [place] can get pt in this month. Pt aware & is okay with going to [facility] [place] because her Neurosurgeon Dr. Elizalde is with [facility]. (1) Pt aware she is scheduled to see Neurology-Dr. Gildardo Gonzáles at [facility] [id number] at 10:30am/Arrive 15 min early,no new pt paperwork to fill out per, their office,bring allmed bottles or med list & pt will get appt reminder call. She was given Dr. Gonzáles's telephone number/address. (2) Pt scheduled to see Dr. RAMIREZ on 08-06-24 at 11:45am to f/u on Neurology-Dr. Gonzáles's appt.. She voiced understanding. 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 She was not been back to Dr. STYLES for her glaucoma and quite sometime having canceled several appointments. Encouraged her to schedule. She has something going on in her neck and shoulder that are leading to the pain problems and numbness neurologic impingement. We have done multiple MRIs I do not know exactly know what the problem is. I think the next step is to see a neurologist and I would min Dr. Abarca. Advise that she continue in physical therapy Please sure she has a follow-up scheduled with me Dr. Nabila King Called patient and notified her of previous message from Dr. King. She voiced understanding. Patient agreed with continuing PT and said she plans to do that. Patient said she did make an appt with Dr. Chris Elizalde, neurosurgeon on 07/24. ( She has something going on in her neck and shoulder that are leading to thepain problems and numbness neurologic impingement. She also said to go ahead and send the referral to Dr. Abarca. She does not have a f/u until October with JAMES. Patient has an appt with Dr. Styles on 07/15. TOADM: Please schedule a f/u with JAMES within a month. Please refer to Dr. Abarca at [facility]. ( She has something going on in her neck and shoulder that areleading to the pain problems and numbness neurologic impingement.) 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 * Telephone Encounter - Vicenta Melo RN - 07/03/2024 2:38 PM RAIL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 TOK: Spoke to ADDI Jules at [facility]. Patient told her that the dizziness and nausea has been getting worse but is not new. She has some tingling on the L side of her face and it goes into her shoulders. Dhara did a cranial nerve test and it was noted L pupil does not dilate like the R one. Trouble with dull sharp differentiae on the L side. 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 136/81, pulse 82, O2 99% Patient did see her eye doctor last week and no mention of her pupillary response. Patient said ears are ringing and vision dims when this occurs. Denied any headache, sob, or chest pain. Denied any slurred speech or facial drooping. Advised an ER evaluation and she informed patient. Patient asked to speak to nurse and wants to make an appt with [facility]. Spoke to patient and advised her to go to ER and patient did not want to do that. She does not feelit is a stroke and she thinks it is all related to her neck issues. Patient was also advised not to drive while dizzy and she voiced understanding. Patient said the pupil issue is nothing new and she saw registered client associate last week and is going to see senior etl developer next week. Patient asked to make an appt with [facility]. She was advised to go to ER again especially if symptoms worsen and she voiced understanding. Please advise 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 * Telephone Encounter - Elizabeth Whitaker - 07/03/2024 2:27 PM RAIL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 [facility] Physical Therapy in [place] called stating that she is struggling with dizziness and nausea. States that they did a cranial nerve exam and not all of the tests came back normal. Wanting to know how to proceed. 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 documented in this encounter Plan of Treatment Scheduled Referrals Name Type Priority Associated Diagnoses Orde r Schedule Ambulatory referral to Neurology Outpatient Referral Urgent Pain Numbness Dizziness Chronic bilateral low back pain, unspecified whether sciatica present Chronic neck pain Neuroforaminal stenosis of lumbar spine Expected: 07/04/2024 (Approximate), Expires: 07/04/2025 documented as of this encounter Visit Diagnoses Diagnosis Neuroforaminal stenosis of lumbar spine- Primary Pain Generalized pain Numbness Disturbance of skin sensation Dizziness Dizziness and giddiness Chronic bilateral low back pain, unspecified whether sciatica present Chronic neck pain Cervicalgia documented in this encounter Care Teams Poiser Balance Relationship Specialty Start Date End Date Nabila King MD [address] [place] [address] PCP - General Internal Medicine 12/16/20 Christine Styles MD Surgeon Ophthalmology 12/13/20 Sita Magana MD [address] [place] [address] [address] [place] [address] Consulting Physician Internal Medicine 12/13/20 Regulo Pandey MD [address] [place] [address] Referring Physician Cardiovascular Disease 12/16/20 Gigi Méndez MD [address] [place] [address] Referring Physician Cardiology 02/18/21 Bc Martinez MD [address] [place] [address] Referring Physician Cardiology 08/22/23 Martin Correa MD [address] [place] [address] Consulting Physician Cardiothoracic Surgery 08/22/23 documented as of this encounter
--- OUTSIDE RECORDS SUMMARY | 2024-08-09 17:46 | XMS_ITS | Clinical Summary ---
Author Organization [facility] Address [address] [place] [address] Phone Care Team Providers Care Motor Vehicle Salesperson Name Role Phone FaizaChristine mak MD Unavailable [phone] Melinda Magana MD Unavailable [phone] Nabila King MD Primary Care Provider [phone]- [phone] Regulo Pandey MD Unavailable Gigi Méndez MD Unavailable [phone] Bc Martinez MD Unavailable [phone] Martin Correa MD Unavailable [phone] [facility] Unavailable Allergies Active Allergy Reactions Criticality Noted Date Comments Chloramphenicol Other (See comments) Low Damaged liver and wiped out white blood cells Clarithromycin Hives Medium Gum Muxzif-Jdlekz-Atrg-Alcoho l Hives,Rash Medium 03/18/2022 Pt reports this is when EKG lead adhesive patches are used. Metronidazole Hives Medium Other Hives Medium 11/24/2021 ekg patches Sulfa (Sulfonamide Antibiotics) Unknown High 09/10/2021 Medications multivitamin capsule Take 1 capsule by mouth daily Active apixaban (ELIQUIS) 2.5 mg tablet 1 tablet (2.5 mg total) 2 (two) times a day Active acetaminophen (TYLENOL) 500 mg tablet Take 1 tablet (500 mg total) by mouth every 6 (six) hours as needed for pain Active dilTIAZem (CARDIZEM) 60 mg tabletIndications :Paroxysmal A-fib (CMS/HCC) (HCC),Palpitation Take 0.5 tablets (30 mg total) by mouth 3 (three) times a day 135 tablet 2 023 Active Additional Information Patient not taking.Reported on 08/06/2024 ketorolac (ACULAR LS) 0.4 % drops Administer 1 drop into both eyes daily 5 mL Active doxycycline hyclate (VIBRAMYCIN) 50 mg capsuleIndication s:Periodontal disease,Dental infection Take 1 capsule (50 mg total) by mouth daily with dinner Avoid dairy 30 minutes before to 60 minutes after taking the pill 100 capsule 3 Active senna (SENOKOT) 8.6 mg tabletIndications :Chronic constipation Take 1-2 tablets by mouth daily as needed for constipation 200 tablet 2 Active levothyroxine (SYNTHROID) 50 mcg tabletIndications :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 Take 1 tablet (50 mcg total) by mouth nightly 90 tablet 2 Active rosuvastatin (CRESTOR) 10 mg tabletIndications :ASVD (arteriosclerotic vascular disease),Multiple -type hyperlipidemia Take 1 tablet (10 mg total) by mouth daily before dinner 30 tablet 11 Active cholecalciferol (VITAMIN D-3) 50,000 unit capsuleIndication s:Vitamin D deficiency Take 1 capsule (50,000 Units total) by mouth once a week 60 capsule Active dilTIAZem (CARDIZEM) 30 mg tablet Active triamterene-hydro CHLOROthiazide 37.5-25 mg per tablet/capsuleInd ications:Endolymp hatic hydrops of left ear Take 1 tablet/capsule by mouth daily before breakfast 30 tablet/cap david Active LORazepam (ATIVAN) 1 mg tabletIndications :Adjustment insomnia Take 0.5-1 tablets (0.5-1 mg total) by mouth nightly as needed for sleep 7 tablet Active aspirin 81 mg enteric coated tablet Take 81 mg by mouth daily 2021 Discontinued magnesium oxide (MAG-OX) 400 mg (241.3 mg elemental magnesium) tabletIndications :hypomagnesemia Take 1 tablet (400 mg total) by mouth 2 (two) times a day 60 tablet 11 022 2021 Discontinued LORazepam (ATIVAN) 1 mg tablet Take 1 tablet (1 mg total) by mouth nightly as needed 023 2023 Discontinued(R eorder) Active Problems Problem Noted Date Diagnosed Date Acute hearing loss of both ears 08/06/2024 Endolymphatic hydrops of left ear 08/06/2024 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 Worse in the last 3 months. Cervical MRI from 03/2024 shows Severe bilateral neural foraminal stenosis at C3/C4, C5/C6 and C6/C7. Moderate bilateral foraminal stenosis at C4/C5. Thoracic and lumbar MRIs from 2 days ago show Mild Modic type I degenerative changes at T7/T8, left. No acute osseous abnormality. 1.1 cm perineural cyst within the right neural foramen at T11/T12. Very small broad-based disc protrusions at the T6/T7 and T7/T8 causing minimal effacement of ventral thecal sac. No significant thoracic central canal stenosis or cord signal normality. Moderate to severe neuroforaminal stenosis on the left at L5/S1 due to disc space narrowing, disc bulging and facet arthropathy. No significant lumbar central canal stenosis. Grade 1 anterolisthesis at L4/L5. No acute osseous abnormality. 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 No abnormal enhancement. Tenderness and decreased range of motion with neck as noted in exam. No other acute findings. We will refer to Physical therapy for further assessment and generalized strengthening. Can not take NSAIDs due to Eliquis use, continue Tylenol as needed. Heat or ice as tolerated. Offered to Rx gabapentin for radicular symptoms-patient refused due to previously took it with uncomfortably increased fatigue. Also offered muscle relaxers, patient refused at this time. Chronic neck pain 06/23/2024 Assessment & Plan (06/23/2024 6:28 PM PREBOARDER): Chronic, uncontrolled. Worse in the last 3 months. Cervical MRI from 03/2024 shows Severe bilateral neural foraminal stenosis at C3/C4, C5/C6 and C6/C7. Moderate bilateral foraminal stenosis at C4/C5. Tenderness and decreased range of motion with neck as noted in exam. No other acute findings. We will refer to Physical therapy for further assessment and generalized strengthening. Can not take NSAIDs due to Eliquis use, continue Tylenol as needed. Heat or ice as tolerated. Offered to Rx gabapentin for radicular symptoms-patient refused due to previously took it with uncomfortably increased fatigue. Also offered muscle relaxers, patient refused at this time. Periodontal disease 06/23/2024 Assessment & Plan (06/23/2024 6:40 PM PREBOARDER): Chronic, controlled. Recent facial MRI shows Nonspecific 1.6 x 0.3 x 1.3 cm peripherally enhancing fluid collection along the anterior midline mandibular body suspicious for an abscess in the appropriate clinical setting. No adjacent cortical destruction or bone edema. Mild mucosal thickening of the inferior left maxillary sinus. Patient has been taking daily doxycycline since February and has seen reheater multiple times. CBC from January unremarkable. No acute findings on exam today-no abscess or drainage noted. Continue same Obstructive sleep apnea hypopnea, moderate 09/20 Overview (09/20/2023): September 20, 2023: Moderate RUDY Confirmed on sleep study ordered by Dr. Martinez 2023. Refer to Dr. Bustillo/ or [facility] sleep study shows an AH eye of 28.8 which is consistent with moderate RUDY. During the supine position the HI increases to 53.1. Mean oxygen saturation of 92% with the lowest being 82% the patient spent 4.6 minutes at or below 88% Nonrheumatic mitral valve regurgitation 09/06/19 24 Nonrheumatic tricuspid valve regurgitation 09/06 Ventricular tachycardia 09/09/2022 01/12/20 23 Labral tear of left hip joint 07/04/2022 Overview (07/04/2022): Found on MRI years ago. 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 History of hematuria 03/12/2019 Overview (12/28/2020): LEX [facility] CT abdomen pelvis with and without contrast (-), requesting his office record of cystoscopy ASVD (arteriosclerotic vascular disease) 019 Overview (12/28/2020): carotid Doppler (-) 06/17/2019 Less than 50% stenosis bilateral carotid 11/07/2018 CT BRAIN W/O and carotids (+) carotid calcifications and small vessels disease Bilateral vertebral artery calcification Bilateral carotid siphon internal carotid calcifications Chronic small vessels ischemic changes of the vertebral white matter Electronically signed by Kayden Saldivar MD Coronary CT (-) Coronary CT scanned score = 0 Assessment & Plan (06/23/2024 6:33 PM PREBOARDER): Chronic, controlled. Managed by Cardiology. CMP from January, recent LDL after restarting Crestor is back within normal limits. Echo from 07/2023 showed EF of 60% with moderate tricuspid and aortic regurg. No acute findings on exam, vitals stable. Continue same. Neuroforaminal stenosis of lumbar spine 02/10/20 18 Overview (12/28/2020): MRI lumbar spine = 02/09/2018 Mild spondylolisthesis L4-5 L5-S1 neural foraminal stenosis left > right Mild right and moderate left degenerative left neural foraminal stenosis , loss of disc height, end plate osteophyte, and minimal diffuse disc bulge Assessment & Plan (04/15/2022 4:02 PM CDT): Patient returns today for follow up on low back and hip pain. Symptoms continue, but patient reports they are tolerable. She on exam has full ROM, no weakness and normal reflexes. 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 I did offer referral to pain management but patient declined. She will continue with current management and return as scheduled or sooner if needed. AI (aortic insufficiency) 04/05/2016 Overview (04/10/2022): ECHOCARDIOGRAM October 2021 Dr. Martinez Mild to moderate aortic regurgitation. Moderate tricuspid regurgitation. Right ventricular systolic pressure is 30-40 mmHg suggestive of mild pulmonary hypertension. Low-tension glaucoma, bilateral, severe stage Assessment & Plan (07/15/2024 11:01 PM PREBOARDER): intraocular pressure (IOP) acceptable off meds status post (s/p) Trab both eyes (OU) - Dyer visual field (HVF) stable x years with low intraocular pressure (IOP) Assessment & Plan (10/31/2023 8:24 PM CDT): intraocular pressure (IOP) acceptable off meds status post (s/p) Trab both eyes (OU) - Dyer visual field (HVF) 24-2 stable F/U 6 months with IOLM and Pentacam- may benefit from toric intraocular lens (IOL) if needed as she cannot tolerate spectacle correction of astigmatism Assessment & Plan (05/08/2023 10:11 PM CDT): intraocular pressure (IOP) acceptable off meds status post (s/p) Trab both eyes (OU) - profound irritation Trial of LTX both eyes (OU) q day/prn Dyer visual field (HVF) 10-2 stable, OCT without change F/U 6 months with Dyer visual field (HVF) 24-[address] Spivey if no improvement (NI) No objective findings of irritation. Assessment & Plan (11/14/2022 10:18 PM CDT): intraocular pressure (IOP) acceptable off meds status post (s/p) Trab both eyes (OU) - intermittent irritation F/U 6 months with OCT/GCL, Dyer visual field (HVF) 10-2 Assessment & Plan (03/18/2022 11:46 AM CDT): intraocular pressure (IOP) acceptable off meds status post (s/p) Trab both eyes (OU) Dyer visual field (HVF) without change F/U 8 months with DFE Assessment & Plan (09/20/2021 6:46 PM PREBOARDER): intraocular pressure (IOP) acceptable off meds status post (s/p) Trab both eyes (OU) F/U 6 months with Dyer visual field (HVF) 24-2 Assessment & Plan (12/14/2020 11:29 AM CDT): intraocular pressure (IOP) acceptable Dyer visual field (HVF) stable, reliable CPM F/U 8months- Dyer visual field (HVF) Assessment & Plan (05/11/2020 10:04 PM CDT): intraocular pressure (IOP) acceptable CPM F/U 6-8months- Dyer visual field (HVF) Assessment & Plan (10/28/2019 12:12 PM CDT): intraocular pressure (IOP) acceptable CPM Dyer visual field (HVF) very reliable and stable F/U 6 months- check BAT right eye (OD) - DFE Assessment & Plan (04/27/2019 4:23 PM CDT): intraocular pressure (IOP) acceptable status post (s/p) trab both eyes (OU)- pt just noticed 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 Assessment & Plan (01/21/2019 11:07 AM CDT): intraocular pressure (IOP) acceptable both eyes (OU)\ status post (s/p) trab both eyes (OU) F/U 6 months with Dyer visual field (HVF) 24-2 Assessment & Plan (07/23/2018 11:42 AM PREBOARDER): intraocular pressure (IOP) excellent- blebs functioning well CPM- F/U 6 months- will check visual field (VF) in 1 yr Assessment & Plan (01/22/2018 10:00 PM CDT): intraocular pressure (IOP) acceptable status post (s/p) trab both eyes (OU), Dyer visual field (HVF) without change. CPM and F/U in 5 months with DFE Age-related nuclear cataract of right eye 2014 Assessment & Plan (07/15/2024 11:02 PM PREBOARDER): Now VS with glare symptoms No noted astigmatism with IOLM or autorefractor Plan monofocal intraocular lens (IOL) Target plano Discussed R/B/A and pt agrees to proceed. Assessment & Plan (10/31/2023 8:25 PM CDT): Now closer to proceeding with cataract extraction (CE) Check astigmatism as above + glare confirmed with BAT Assessment & Plan (05/08/2023 10:11 PM CDT): Likely some increasing significance Defers surgery for now Assessment & Plan (11/14/2022 10:20 PM CDT): Likely some increasing significance Defers surgery for now Assessment & Plan (03/18/2022 11:46 AM CDT): Not VS- observe Assessment & Plan (09/20/2021 12:48 PM PREBOARDER): Not VS- observe Assessment & Plan (12/14/2020 11:29 AM CDT): Not VS- observe Assessment & Plan (05/11/2020 10:04 PM CDT): Not VS- observe Assessment & Plan (10/28/2019 12:12 PM CDT): Not VS- observe Assessment & Plan (04/27/2019 4:23 PM CDT): Not VS- observe Assessment & Plan (01/21/2019 11:08 AM CDT): Not visually significant to patient Discussed with pt. Check BAT next visit Assessment & Plan (07/23/2018 11:42 AM PREBOARDER): Not visually significant Assessment & Plan (01/22/2018 10:01 PM CDT): Not visually significant- continue observation History of osteoporosis 06/28/2012 Overview (12/28/2020): DEXA bone density 01/31/2019 T-score lumbar spine (-) 2.1 T-score left hip inter trochanteric (-)1.6 T-score left hip total (-) 1.0 Note From MELINDA Batista 06/28/2012 updated 2019 Ms. CONN is being treated for osteopenia. She still obtains calcium through dietary sources about 600-1000 mg per day and she takes vitamin D 2000 units per day. She's been on a holiday from bisphosphonate medications for the past six years after being treated with Fosamax and Actonel for over 11.5 years. She currently does stay physically active participating in her activities of daily living and walks for exercise. Her medical history is significant for sciatica and degenerative disk disease and she takes tylenol as needed for back pain. She's had 0 falls or fractures in the past year. Assessment & Plan (01/31/2019 4:20 PM CDT): Ms. CONN is currently being treated for osteoporosis with dietary calcium and vitamin D 3,000 IU per day and exercise. She remains on this conservative treatment after stopping bisphosphonate therapy 6 years ago after 11+ years of medication. Since her bone density is stable in her spine and hip when compared to prior studies, I recommend that she continue her conservative therapy. Next year I'll check bone markers and restart medication if needed. History of adenomatous polyp of colon 01/08/2010 Overview (12/28/2020): Colonoscopy (+) for Tubulovillous adenoma of the rectum 01/08/2010, had no further follow-up since then, Dr. Nabila King advised referral for anoscopy 2020 Chronic diastolic heart failure Overview (12/28/2020): 2018 echo (+) diastolic dysfunction and she [...] 30-40 mmHg suggestive of mild pulmonary hypertension. Echocardiogram 04/15/2016: The left ventricular size is normal. The left ventricular systolic function is normal. Estimated left ventricular ejection fraction is 55-60%. Mild aortic regurgitation. Mild tricuspid regurgitation. Lexiscan Small area of reversible apical defect Stress test (-) 2011 Regular treadmill stress test 05/03/2016: 1. Clinically negative. 2. Electrocardiographically negative treadmill test for ischemia. 3. Excellent exercise capacity. 4. Blood pressure response was normal. 5. Taylor Treadmill Score is 7.0, which indicates low risk. Lexiscan stress test 09/05/2011 (-): LVEF 72%, no ischemia Resolved Problems Problem Noted Date Diagnosed Date Resolved Date Chronic pain syndrome 03/02/20222021 Assessment & Plan (03/02/2022 10:18 AM CDT): Patient presenting with c/o multiple aches and pain in the back, hips, knees and joints. Most likely arthritic in nature. We are doing imaging for her more acute low back and hip pain. We will do some labs to look for any signs of inflammation as well. Have encouraged PT but patient declined. We will trial low dose muscle relaxer at night. Have recommended chiropractor and gentle stretching patient agreeable to this. Will follow up in 4 weeks or sooner if needed. Chronic bilateral low back p ain with left-sided sciatica 03/02/2022 04/10/2022 Assessment & Plan (03/02/2022 11:23 AM CDT): Patient has history of foraminal stenosis and presents today with reports of bilateral hip and low back pain. She states this is chronic, but worse over the last couple of months. On exam she has full ROM and no weakness. Her reflexes are intact as well. Offered physical therapy, but patient declined. Recommended chiropractic management and she is agreeable. She also has agreed to trial of muscle relaxer especially for night. We will do imaging today to r/o any acute process. Bilateral hip pain 03/02/2022 Assessment & Plan (03/02/2022 11:24 AM CDT): Patient is reporting bilateral hip pain that is worse on the left. Pain is located in the groin region. On exam however, no reproducible pain. Concern patient is actually for lower back and SI joints. We will however, do imaging to r/o any acute fracture or dislocation. She will continue with symptom management as outlined above. If no improvement may benefit from pain management. Alan's thyroiditis 09/10/2021 08/2 08/2021 Dizziness 05/21/2021 04/10/2022 Adjustment disorder with anxiety 04/19/2021 04/10/2022 SVT (supraventricular tachycardia) 03/19/2021 04/10/2022 Urinary frequency 02/18/2021 04/10/2022 Assessment & Plan (02/18/2021 2:05 PM CDT): Patient reports feelings of suprapubic fullness and urinary frequency. Symptoms are concerning for UTI. Patient reports history of UTI with similar symptoms. We will have her provide UA with culture today. We will start of empiric antibiotic therapy and adjust if needed based on culture results. Other atopic dermatitis 02/18/2021 08/2 08/2021 Assessment & Plan (02/18/2021 2:13 PM CDT): Patient noted to have atopic dermatitis at the site of EKG patches. Patient has known sensitivity to adhesive. She was encouraged to keep area clean and dry. She can apply hydrocortisone for itching. She is to call with worsening or unimproved symptoms. Hospital discharge follow-up 02/18/2021 04/10/2022 Assessment & Plan (02/18/2021 2:11 PM CDT): Patient presents for hospital discharge follow up. She recently underwent EPS with ablation for afib/flutter. She also had cardioversion during procedure d/t new onset afib. Post procedure patient continues to have palpitations and feelings of being light headed. She has reached out to cardiology today for further evaluation. They have recommended PPM as she is unable to tolerate antiarrythmic therapy d/t bradycardia. She will follow up with them as scheduled or sooner if needed. Medications were reviewed today as well. Palpitation 12/16/2020 04/10/2022 Squamous blepharitis of both eyes 10/28/2019 06/23/2024 Assessment & Plan (12/14/2020 11:31 AM CDT): Warm compresses, Lid scrubs with baby shampoo Assessment & Plan (05/11/2020 10:05 PM CDT): With overlay of rosacea, give Rx for Doxycycline 50 mg/day low dose Assessment & Plan (10/28/2019 12:14 PM CDT): Mild rosacea- to undergo trial of Doxy 50 mg/day per adobe layer Pseudophakia 01/22/2018 04/10/2022 Assessment & Plan (03/18/2022 11:46 AM CDT): Recommend MRx with local junior net developer Mitral valve disease 09/30/2014 022 Overview (11/24/2016): Mitral valve disorder Encounters Date Type Department Care Team Description 08/08/2024 Telephone [facility] Ophthalmology [address] [place] [address] Gracy Ocampo COA 08/06/2024 11:45 AM PREBOARDER Office [facility] [address] [place] [address] Nabila King MD Acute hearing loss of both ears (Primary Dx); Endolymphatic hydrops of left ear; 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); Left mandibular body longer than right mandibular body; Adjustment insomnia; Aortic valve insufficiency, etiology of cardiac valve disease unspecified; Paroxysmal atrial fibrillation (CMS/HCC) (HCC) 07/15/2024 1:15 PM PREBOARDER Office Visit [facility] Ophthalmology [address] [place] [phone] Christine Kendall MD Age-related nuclear cataract of right eye (Primary Dx); Low-tension glaucoma, bilateral, severe stage 07/15/2024 11:20 AM PREBOARDER Imaging Exam [facility] Ophthalmology [address] [place] [address] 07/09/2024 10:30 AM PREBOARDER Office Visit [facility] Neurology [address] [place] [address] Gildardo Gonzáles Si, MD Pain; Numbness; Dizziness; Chronic bilateral low back pain, unspecified whether sciatica present; Chronic neck pain; Neuroforaminal stenosis of lumbar spine 07/03/2024 Telephone [facility] [address] [place] [address] Nabila King MD Dizziness 06/26/2024 Telephone [facility] [address] [place] [address] Nabila King MD PT Diagnosis 06/25/2024 Telephone [facility] [address] [place] [address] Nabila King MD Neuro Referral 06/13/2024 9:30 AM CDT Office Visit [facility] [address] [place] [address] Imelda Gaytan NP Chronic bilateral back pain, unspecified back location (Primary Dx); Chronic neck pain; ASVD (arteriosclerotic vascular disease); Periodontal disease 06/13/2024 Telephone [facility] [address] [place] [address] Imelda Gaytan NP 06/10/2024 [facility] [address] [place] [address] Scanning, Provider from Last 3 Months Immunizations Name Administration Dates Next Due COVID-19 MRNA (MODERNA) .5 M L (50 MCG) VACCINE (12 YEARS AND UP) 05/31/2023 DT 03/21/2015 Influenza, Quadrivalent, Hig h Dose, Preservative Free, Intrr 05/22/2023,05/24/2022,05/25/2021,05/01,06/17/2019 Influenza, Trivalent, High D ose, Split, Preservative Free, Intramuscular 04/18/2024,06/17/2019,05/03/2018,05/07,05/08/2016,05/15/2014 Influenza, Trivalent, IM (MDV) 06/20/2012 Influenza, Trivalent, Preser vative Free, Intramuscular 05/22/2015 Influenza, Unspecified 06/17/2019,2017,05/07/2017,05/08,05/22/2015,05/15/2014,06/20/2012 Pfizer SARS-CoV-2 Monovalent Vaccination (12+ Yrs) PURPLE 01/23/2022,07/08/2021,11/03/2020,10/13 Pfizer Sars-Cov-2 Bivalent V accination (12+ YRS) 06/21/2022 Pneumococcal Conjugate PCV 13 05/08/2016 Pneumococcal Conjugate, Unspecified 06/18/2008 Pneumococcal Polysaccharide PPV23 06/05/2022 Sars-cov-2 Covid-19 Mrna, Bi valent, Original/omicron Ba.1 05/01/2024 ZOSTER Recombinant 05/03/2018,02/02/2018 Surgical History Surgery Date Site/Laterality Comments OTHER SURGICAL HISTORY Valvular Heart Disease 2xAR, Ant MVP: OTHER SURGICAL HISTORY uterine suspension surgery GLAUCOMA SURGERY Bilateral Filtering Bleb DILATION AND CURETTAGE, DIAGNOSTIC / THERAPEUTIC 05/15/2013 (-) Dr. Wagner, benign endocervical polyp COLONOSCOPY 01/08/2010 (+) Dr. Queen, single tubular adenoma rectum ABLATION OF AFIB FLUTTER 02/18/2021 [facility] CARDIAC PACEMAKER PLACEMENT 10/19/2021 - 11/18/2021 Medical History Medical History Date Comments Hx Other Medical Valvular Heart Disease 2xAR, Ant MVP Hx Other Medical diastolic dysfu nction Hx Other Medical hypothyroidism, osteopenia, glaucoma, anxiety Nuclear sclerotic cataract of right eye 01/08/20 18 Low-tension glaucoma of left eye, severe stage Low-tension glaucoma of righ t eye, severe stage Pseudophakia left S/P laser trabeculoplasty of eye 1999 Both eyes History of trabeculectomy 05/30/2000 Left e ye History of trabeculectomy 01/22/2001 Right eye Migraine Thyroid disease Family History Medical History Relation Name Comments Osteoporosis Daughter Family history of osteoporosis - (Added by TW Conv) Macular degeneration Father Osteoporosis Father Other Father Pacemaker; Osteoporosis Mother Family history of osteoporosis - (Added by TW Conv) Glaucoma Sister Retinal detachment Sister Scoliosis Sister Relation Name Status Comments Daughter Father Alive Mother Sister Social History Tobacco Use Types Packs/Day Years [...] on file Legal Sex Female 8:14 PM PREBOARDER Gender Identity Not on file Sexual Orientation Not on file 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 Not on file Obstetrics History Last Filed Vital Signs Vital Sign Reading Time Taken Comments Blood Pressure 130/66 08/06/2024 11:55 AM PREBOARDER Pulse 80 08/06/2024 11:55 AM PREBOARDER Temperature 36.3 ??C (97.3 ??F) 08/06/2024 11:[address] Respiratory Rate 18 08/06/2024 11:55 AM PREBOARDER Oxygen Saturation 97% 08/06/2024 11:55 AM PREBOARDER Inhaled Oxygen Concentration - - Weight 56.8 kg (125 lb 3.2 oz) 08/06/2024 11:55 AM PREBOARDER Height 162.6 cm (5' 4 ) 08/06/2024 11:55 AM PREBOARDER Body Mass Index 21.49 08/06/2024 11:55 AM PREBOARDER Plan of Treatment Health Maintenance Due Date Last Done Comments Hepatitis B Screening 1953 Covid-19 Vaccine (2023- 5 season) 2024 05/01/2024, 05/01/2024, 05/31/2023, Additional history exists Depression Screening 08/10/2024 08/10/2023, 07/04/2022, 12/16/2020 Fall Risk Assessment 08/10/2024 08/10/2023, 07/04/2022, 12/16/2020 Well Visit 65+ 08/10/2024 08/10/2023, 07/04/2022 DTaP/Tdap/Td Vaccine (2 - Tdap) 03/21/2025 5 Zoster Vaccine Completed 05/03/2018, 02/02/2018 Pneumococcal vaccine 65+ Completed 022, 05/08/2016, 06/18/2008 Influenza Vaccine Completed 04/18/2024, , 05/24/2022, Additional history exists Procedures Procedure Name Priority Date/Time Associated Diagnosis Comments IOL BIOMETRY - OU - BOTH EYES Routine 07/15/2024 11:20 AM PREBOARDER Age-related nuclear cataract of right eye SCAN - RADIOLOGY/IMAGING 06/10/2024 CHOLESTEROL, LDL, DIRECT Routine 05/28/2024 8:15 AM CDT Multiple-type hyperlipidemia CORNEAL TOPOGRAPHY - OU - BOTH EYES Routine 05/13/2024 10:00 AM CDT Age-related nuclear cataract of right eye from Last 3 Months Results * IOL Biometry - OU - Both Eyes (07/15/2024 11:20 AM PREBOARDER) AC IOL (OS) 4.61 CONTINUUM AC IOL (OD) 3.02 CONTINUUM White to White (OS) 11.6 mm CONTINUUM White to White (OD) 11.5 mm CONTINUUM A LENGTH (OS) 24.25 CONTINUUM A LENGTH (OD) 24.24 CONTINUUM Anatomical Region Laterality Modality Head Ophthalmic Axial Measurements Narrative 07/15/2024 5:31 PM PREBOARDER Right Eye Axial length was 24.24. White to white was 11.5 mm. AC Depth was 3.02. Left Eye Axial length was 24.25. White to white was 11.6 mm. AC Depth was 4.61. Notes Acceptable for intraocular lens (IOL) calc us Christine Kendall MD OPHTH ULTRASOUND Final R esult * SCAN - RADIOLOGY/IMAGING (06/10/2024) Anatomical Region Laterality Modality Other us Provider Scanning Edited Result - Final * Cholesterol, LDL, direct (05/28/2024 8:15 AM CDT) LDL Chol, Direct 64 0 - 99 mg/dL [facility] - 01 Blood 05/28/2024 8:15 AM CDT 05/28/2024 Narrative [facility] - 05/29/2024 7:37 AM CDT Performed at: ??01 - [facility] [address] ??[id number] Hood Fitter: Darek Farrell PhD, Phone: ??[phone] us Nabila King MD LAB BLOOD ORDERABLES Final Result [facility] - 01 * Corneal Topography - OU - Both Eyes (05/13/2024 10:00 AM CDT) Anatomical Region Laterality Modality Head Other Narrative 07/16/2024 2:20 PM PREBOARDER Right Eye Quality was good. Progression has no prior data. Findings include normal observations. Left Eye Quality was good. Progression has no prior data. Notes No significant astigmatism confirmed right eye (OD) us Christine Kendall MD OPHTH MAPPING Edited R esult - Final from Last 3 Months Insurance [facility] Advance Directives For more information, please contact: [phone] Documents on File Type Date Recorded Patient Take Off Worker Expl anation ADVANCE DIRECTIVE 07/04/2022 [employer] Care Teams Motor Vehicle Salesperson Relationship Specialty Start Date End Date Nabila King MD [address] [place] [address] PCP - General Internal Medicine 12/16/20 Christine Kendall MD Surgeon Ophthalmology 12/13/20 Melinda Magana MD [address] [place] [address] Consulting Physician Internal Medicine 12/13/20 Regulo Pandey MD [address] [place] [address] Referring Physician Cardiovascular Disease 12/16/20 Gigi Méndez MD [address] [place] [address] Referring Physician Cardiology 02/18/21 Bc Martinez MD [address] [place] [address] Referring Physician Cardiology 08/22/23 Martin Correa MD [address] [place] [address] Consulting Physician Cardiothoracic Surgery 08/22/23 Gildardo Gonzáles Si, MD [address] [place] [address] Consulting Physician Neurology 07/09/24
--- OUTSIDE RECORDS SUMMARY | 2024-08-09 17:46 | XMS_ITS | Encounter Summary ---
Author Organization [facility] Address [address] [place] [address] Phone Care Team Providers Care Textbook Associate Name Role Phone Christine Kendall MD Unavailable [phone] Sita Magana MD Unavailable [phone] Nabila King MD Primary Care Provider [phone]- [phone] Regulo Pandey MD Unavailable Gigi Méndez MD Unavailable [phone] Bc Martinez MD Unavailable [phone] Martin Correa MD Unavailable [phone] Reason for Visit * Reason Comments Glaucoma Encounter Details Date Type Department Care Team (Late st Contact Info) Description 10/30/2023 10:45 AM CDT Office Visit [facility] Ophthalmology 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 documented in this encounter Progress Notes * Christine Kendall MD - 10/30/2023 10:45 AM CDT Assessment/Plan Diagnoses and all orders for this visit: Low-tension glaucoma, bilateral, severe stage (Primary) Assessment & Plan: intraocular pressure (IOP) acceptable off meds status post (s/p) Trab both eyes (OU) - Dyer visual field (HVF) 24-2 stable F/U 6 months with IOLM and Pentacam- may benefit from toric intraocular lens (IOL) if needed as shecannot tolerate spectacle correction of astigmatism Age-related nuclear cataract of right eye Assessment & Plan: Now closer to proceeding with cataract extraction (CE) Check astigmatism as above + glare confirmed with BAT documented in this encounter Miscellaneous Notes * Assessment & Plan Note - Christine Kendall MD - 10/31/2023 8:25 PM CDT Associated Problem(s): Age-related nuclear cataract of right eye Now closer to proceeding with cataract extraction (CE) Check astigmatism as above + glare confirmed with BAT * Assessment & Plan Note - Christine Kendall MD - 10/31/2023 8:24 PM CDT Associated Problem(s): Low-tension glaucoma, bilateral, severe stage intraocular pressure (IOP) acceptable off meds status post (s/p) Trab both eyes (OU) - Dyer visual field (HVF) 24-2 stable F/U 6 months with IOLM and Pentacam- may benefit from toric intraocular lens (IOL) if needed as shecannot tolerate spectacle correction of astigmatism documented in this encounter Plan of Treatment Not on file documented as of this encounter Visit Diagnoses Diagnosis Low-tension glaucoma, bilateral, severe stage- Primary Age-related nuclear cataract of right eye documented in this encounter Discontinued Medications Medication Sig Discontinue Reason Start Date End Da te amoxicillin 500 mg capsule TAKE FOUR CAPSULES BY MOUTH ONE HOUR BEFORE PROCEDURE AND FOUR CAPSULES BY MOUTH 4HRS AFTER PROCEDURE Therapy completed 07/26/2023 10/30/2023 clobetasoL (TEMOVATE) 0.05 % external solution APPLY SOLUTION TOPICALLY 3 TO 4 TIMES DAILY FOR ITCHY SCALP Therapy completed 05/22/2023 10/30/2023 documented as of this encounter Eye Exam Visual Acuity (Snellen - Linear) Right eye Left eye Dist sc 20/40 -2 20/30 -1 Dist ph sc 20/30 -1 20/25 Tonometry (Applanation, 11:12 AM) Right eye Left eye Pressure 10 10.5 Mires thin Pupils Dark Light Shape React Right eye 6 5.5 Round Minimal Left eye 5 3 Round Brisk Visual Sung (Counting fingers) Right eye Left eye Full Restrictions Partial outer superior nasal, in ferior nasal deficiencies Extraocular Movement Right eye Left eye Full Full Neuro/Psych Oriented x3: Yes Mood/Affect: Normal Dilation Both eyes: 1.0% Mydriacyl @ 11:13 AM Glare Testing Off Low Medium High Right eye 20/40 20/60 20/80 NIL Left eye External Exam Right eye Left eye External Normal Normal Slit Lamp Exam Right eye Left eye Lids/Lashes Telangiectasia Normal Conjunctiva/Sclera Diffuse bleb extends nearly 360 , Yue negative Yue negative bleb, 1 mm extension onto corneal surface, Diffuse bleb Cornea Clear Clear Anterior Chamber Deep and quiet Deep and quiet Iris Round and reactive Round and kiel ctive Lens 2+ Nuclear sclerosis Posterior c hamber intraocular lens Fundus Exam Right eye Left eye Posterior Vitreous Vitreous syneresis Vitreous s yneresis Disc no disc hemorrhage no disc hemor rhage C/D Ratio 1.0 0.95 Macula Normal Normal Vessels Normal Normal Periphery Normal Normal Care Teams Textbook Associate Relationship Specialty Start Date End Date Nabila King MD [address] [facility] [place] [address] PCP - General Internal Medicine 12/16/20 Christine Kendall MD Surgeon Ophthalmology 12/13/20 Sita Magana MD [address] [facility] [place] [address] Consulting Physician Internal Medicine 12/13/20 Regulo Pandey MD [address] [facility] [place] [address] Referring Physician Cardiovascular Disease 12/16/20 Gigi Méndez MD [address] [facility] [address] [place] [address] Referring Physician Cardiology 02/18/21 Bc Martinez MD [address] [place] [address] Referring Physician Cardiology 08/22/23 Martin Correa MD [address] [place] [address] Consulting Physician Cardiothoracic Surgery 08/22/23 documented as of this encounter
--- OUTSIDE RECORDS SUMMARY | 2024-08-09 17:46 | XMS_ITS | Encounter Summary ---
Author Organization [facility] Healthcare Address [address] [place] [address] Care Team Providers Care Operator Control Room Name Role Phone Christine Kendall MD Unavailable [phone] Sita Magana MD Unavailable [phone] Nabila King MD Primary Care Provider + [phone] Regulo Pandey MD Unavailable Gigi Méndez MD Unavailable [phone] Bc Martinez MD Unavailable [phone] Martin Correa MD Unavailable [phone] Encounter Details Date Type Department Care Team (Late st Contact Info) Description 06/10/2024 Orders Only [facility] [address] [place] [phone] Scanning, Provider Social History Tobacco Use Types [...] on file 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 Gender Identity Not on file Sexual Orientation Not on file 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 Not on file documented as of this encounter Plan of Treatment Not on file documented as of this encounter Procedures Procedure Name Priority Date/Time Associated Diagnosis Comments SCAN - RADIOLOGY/IMAGING 06/10/2024 documented in this encounter Results * SCAN - RADIOLOGY/IMAGING (06/10/2024) Anatomical Region Laterality Modality Other us Provider Scanning Edited Result - Final documented in this encounter Visit Diagnoses Not on filedocumented in this encounter Care Teams Operator Control Room Relationship Specialty Start Date End Date Nabila King MD [address] [address] [place] [address] PCP - General Internal Medicine 12/16/20 Christine Kendall MD Surgeon Ophthalmology 12/13/20 Sita Magana MD [address] [facility] [address] [place] [address] Consulting Physician Internal Medicine 12/13/20 Regulo Pandey MD [address] [place] [address] [address] [place] [address] Referring Physician Cardiovascular Disease 12/16/20 Gigi Méndez MD [address] [place] [address] [address] [place] [address] Referring Physician Cardiology 02/18/21 Bc Martinez MD [address] [place] [address] Referring Physician Cardiology 08/22/23 Martin Correa MD [address] [place] [address] Consulting Physician Cardiothoracic Surgery 08/22/23 documented as of this encounter
--- OUTSIDE RECORDS SUMMARY | 2024-08-09 17:46 | XMS_ITS | Encounter Summary ---
Author Organization [facility] Healthcare Address [address] [place] [address] Care Team Providers Care Exhibits Coordinator Name Role Phone Christine Kendall MD Unavailable [phone] Sita Magana MD Unavailable [phone] Nabila King MD Primary Care Provider + [phone] Regulo Pandey MD Unavailable Gigi Méndez MD Unavailable [phone] Bc Martinez MD Unavailable [phone] Martin Correa MD Unavailable [phone] Encounter Details Date Type Department Care Team (Late st Contact Info) Description 04/12/2024 Orders Only [facility] [address] [place] [phone] Scanning, Provider Social History Tobacco Use Types [...] on file 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 Gender Identity Not on file Sexual Orientation Not on file 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 Not on file documented as of this encounter Plan of Treatment Not on file documented as of this encounter Procedures Procedure Name Priority Date/Time Associated Diagnosis Comments SCAN - RADIOLOGY/IMAGING 04/12/2024 documented in this encounter Results * SCAN - RADIOLOGY/IMAGING (04/12/2024) Anatomical Region Laterality Modality Other us Provider Scanning Edited Result - Final documented in this encounter Visit Diagnoses Not on filedocumented in this encounter Care Teams Exhibits Coordinator Relationship Specialty Start Date End Date Nabila King MD [address] [place] [address] PCP - General Internal Medicine 12/16/20 Christine Kendall MD Surgeon Ophthalmology 12/13/20 Sita Magana MD [address] [place] [address] Consulting Physician Internal Medicine 12/13/20 Regulo Pandey MD [address] [place] [address] Referring Physician Cardiovascular Disease 12/16/20 Gigi Méndez MD [address] [place] [address] Referring Physician Cardiology 02/18/21 Bc Martinez MD [address] [place] [address] Referring Physician Cardiology 08/22/23 Martin Correa MD [address] [place] [address] Consulting Physician Cardiothoracic Surgery 08/22/23 documented as of this encounter
--- OUTSIDE RECORDS SUMMARY | 2024-08-09 17:46 | XMS_ITS | Encounter Summary ---
Author Organization [facility] Address [address] [place] [address] Phone Care Team Providers Care Realtime Court Reporter Name Role Phone Christine Kendall MD Unavailable [phone] Sita Magana MD Unavailable [phone] Nabila King MD Primary Care Provider [phone] Regulo Pandey MD Unavailable Gigi Méndez MD Unavailable [phone] Bc Martinez MD Unavailable [phone] Martin Correa MD Unavailable [phone] [facility] Unavailable Reason for Visit * Diagnostic Imaging (Routine) - Closed Specialty Diagnoses / Procedures Referred By Contclaudia t Referred To Contact Diagnoses Age-related nuclear cataract of right eye Procedures Corneal Topography - OU - Both Eyes Christine Kendall MD [address] [facility] DE[address] OPHTHALMOLOGY, [address] [place] [address] Phone: tel: fax: [facility] (All Locations) Referral ID Status Reason Start Date Expiration Date Visits Re quested Visits Authorized [id number] Closed 05/07/2024 06/06/2025 1 1 Encounter Details Date Type Department Care Team (Late st Contact Info) Description 07/15/2024 11:20 AM MIXING TUMBLER OPERATOR Imaging Exam [facility] Ophthalmology 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 Progression has no prior data. Findings include normal observations. Left Eye Quality was good. Progression has no prior data. Notes No significant astigmatism confirmed right eye (OD) Christine Kendall MD OPHTH MAPPING Edited R esult - Final documented in this encounter Visit Diagnoses Not on filedocumented in this encounter Care Teams Realtime Court Reporter Relationship Specialty Start Date End Date Nabila King MD [address] [facility] [address] [place] [address] PCP - General Internal Medicine 12/16/20 Christine Kendall MD Surgeon Ophthalmology 12/13/20 Sita Magana MD [address] [facility] [place] [address] Consulting Physician Internal Medicine 12/13/20 Regulo Pandey MD [address] [place] [address] Referring Physician Cardiovascular Disease 12/16/20 Gigi Méndez MD [address] [facility] [place] [address] Referring Physician Cardiology 02/18/21 Bc Martinez MD [address] [place] [address] Referring Physician Cardiology 08/22/23 Martin Correa MD [address] [place] [address] Consulting Physician Cardiothoracic Surgery 08/22/23 Gildardo Gonzáles Si, MD [address] [place] [address] Consulting Physician Neurology 07/09/24 documented as of this encounter
--- OUTSIDE RECORDS SUMMARY | 2024-08-09 17:46 | XMS_ITS | Encounter Summary ---
Author Organization [facility] Address [address] [place] [address] Phone Care Team Providers Care Barback Name Role Phone Christine Kendall MD Unavailable [phone] Sita Magana MD Unavailable [phone] Nabila King MD Primary Care Provider [phone] Regulo Pandey MD Unavailable Gigi Méndez MD Unavailable [phone] Bc Martinez MD Unavailable [phone] Martin Correa MD Unavailable [phone] NiviaGildardo bowen Si, MD Unavailable Reason for Referral * Diagnostic Imaging (Routine) - Authorized Specialty Diagnoses / Procedures Referred By Contac t Referred To Contact Diagnoses Age-related nuclear cataract of right eye Procedures IOL Biometry - OU - Both Eyes Christine Kendall MD [address] DEPT OPHTHALMOLOGY, [facility] [address] [place] [address] Phone: tel: fax: [facility] (All Locations) Referral ID Status Reason Start Date Expiration Date V isits Requested Visits Authorized [id number] Authorized 07/10/2024 08/09/2025 1 1 X RAY PHYSICIAN Reason for Visit * Reason Comments Glaucoma Encounter Details Date Type Department Care Team (Late Contact Info) Description 07/15/2024 1:15 PM X RAY PHYSICIAN Office Visit [facility] Ophthalmology [address] 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 Orders: - IOL Biometry - OU - Both Eyes - PENTACAM - OU - BOTH EYES; Future Low-tension glaucoma, bilateral, severe stage Assessment & Plan: intraocular pressure (IOP) acceptable off meds status post (s/p) Trab both eyes (OU) - Dyer visual field (HVF) stable x years with low intraocular pressure (IOP) X RAY PHYSICIAN documented in this encounter Miscellaneous Notes * Assessment & Plan Note - Christine Kendall MD - 07/15/2024 11:02 PM X RAY PHYSICIAN Associated Problem(s): Age-related nuclear cataract of right eye Now VS with glare symptoms No noted astigmatism with IOLM or autorefractor Plan monofocal intraocular lens (IOL) Target plano Discussed R/B/A and pt agrees to proceed. X RAY PHYSICIAN * Assessment & Plan Note - Christine Kendall MD - 07/15/2024 11:01 PM X RAY PHYSICIAN Associated Problem(s): Low-tension glaucoma, bilateral, severe stage intraocular pressure (IOP) acceptable off meds status post (s/p) Trab both eyes (OU) - Dyer visual field (HVF) stable x years with low intraocular pressure (IOP) X RAY PHYSICIAN documented in this encounter Plan of Treatment Scheduled Orders Name Type Priority Associated Diagnoses Orde r Schedule PENTACAM - OU - BOTH EYES Ophthalmology Routine Age-related nuclear cataract of right eye 1 Occurrences starting 07/10/2024 until 07/10/2025 documented as of this encounter Procedures Procedure Name Priority Date/Time Associated Diagnosis Comments IOL BIOMETRY - OU - BOTH EYES Routine 07/15/2024 11:20 AM X RAY PHYSICIAN Age-related nuclear cataract of right eye documented in this encounter Results * IOL Biometry - OU - Both Eyes (07/15/2024 11:20 AM X RAY PHYSICIAN) AC IOL (OS) 4.61 CONTINUUM AC IOL (OD) 3.02 CONTINUUM White to White (OS) 11.6 mm CONTINUUM White to White (OD) 11.5 mm CONTINUUM A LENGTH (OS) 24.25 CONTINUUM A LENGTH (OD) 24.24 CONTINUUM Anatomical Region Laterality Modality Head Ophthalmic Axial Measurements Narrative 07/15/2024 5:31 PM X RAY PHYSICIAN Right Eye Axial length was 24.24. White to white was 11.5 mm. AC Depth was 3.02. Left Eye Axial length was 24.25. White to white was 11.6 mm. AC Depth was 4.61. Notes Acceptable for intraocular lens (IOL) calc us Christine Kendall MD OPHTH ULTRASOUND Final R esult documented in this encounter Visit Diagnoses Diagnosis Age-related nuclear cataract of right eye- Primary Low-tension glaucoma, bilateral, severe stage documented in this encounter Eye Exam Visual Acuity (Snellen - Linear) Right eye Left eye Dist sc 20/70 20/30 -2 Dist cc 20/50 -2 20/20 Dist ph sc 20/40 +2 20/25 Dist ph cc 20/40 Correction: Glasses Tonometry (Applanation, 1:40 PM) Right eye Left eye Pressure 10.5 10 Pupils Dark Light Shape React APD Right eye 6 5.5 Round Minimal None Left eye 5 3 Round + None Visual Sung Right eye Left eye Full Restrictions Partial outer superior nasal, in ferior nasal deficiencies Extraocular Movement Right eye Left eye Full Full Neuro/Psych Oriented x3: Yes Mood/Affect: Normal Dilation Both eyes: 1.0% Mydriacyl @ 1:40 PM Keratometry K1 Middleton K2 Middleton Mires Right eye 41.50 47 42.00 145 auto Left eye 40.50 75-4 42.00 164 auto Potential Acuity Meter Right eye Left eye SYLVIA J1 External Exam Right eye Left eye External Normal Normal Slit Lamp Exam Right eye Left eye Lids/Lashes Telangiectasia Normal Conjunctiva/Sclera Diffuse bleb extends nearly 360 , Yue negative Yue negative bleb, 1 mm extension onto corneal surface, Diffuse bleb Cornea Clear Clear Anterior Chamber Deep and quiet Deep and quiet Iris Round and reactive Round and kiel ctive Lens 2-3+ Nuclear sclerosis Posterior chamber intraocular lens Fundus Exam Right eye Left eye Posterior Vitreous Vitreous syneresis Vitreous s yneresis Disc no disc hemorrhage no disc hemor rhage C/D Ratio 1.0 0.95 Macula Normal Normal Vessels Normal Normal Periphery Normal Normal Wearing Rx Sphere Cylinder Middleton Right eye Mantachie +2.00 179 Left eye -0.50 +1.75 110 Type: Bifocal Care Teams Barback Relationship Specialty Start Date End Date Nabila iKng MD [address] [facility] [address] [place] [address] PCP - General Internal Medicine 12/16/20 Christine Kendall MD Surgeon Ophthalmology 12/13/20 Sita Magana MD [address] [facility] [address] [place] [address] Consulting Physician Internal Medicine 12/13/20 Regulo Pandey MD [address] [facility] [address] [place] [address] Referring Physician Cardiovascular Disease 12/16/20 Gigi Méndez MD [address] [facility] [address] [place] [address] Referring Physician Cardiology 02/18/21 Bc Martinez MD [address] [place] [address] Referring Physician Cardiology 08/22/23 Martin Correa MD [address] [place] [address] Consulting Physician Cardiothoracic Surgery 08/22/23 Gildardo Gonzáles Si, MD [address] [facility] [address] [place] [address] Consulting Physician Neurology 07/09/24 documented as of this encounter
--- OUTSIDE RECORDS SUMMARY | 2024-08-09 17:46 | XMS_ITS | Encounter Summary ---
Author Organization [facility] Healthcare Address [address] [place] [address] Care Team Providers Care Paramedical Aide Name Role Phone Christine Kendall MD Unavailable [phone] Sita Magana MD Unavailable [phone] Nabila King MD Primary Care Provider + [phone] Regulo Pandey MD Unavailable Gigi Méndez MD Unavailable [phone] Bc Martinez MD Unavailable [phone] Martin Correa MD Unavailable [phone] Reason for Referral * Consultation (Routine) - Pending Review Specialty Diagnoses / Procedures Referred By Contac t Referred To Contact Neurosurgery Diagnoses Perineural cysts Physical deconditioning Nabila King MD [address] [place] [address] Phone: tel: fax: Brenda Suarez MD [address] [place] [address] Phone: tel: fax: Referral ID Status Reason Start Date Expiration Date Visits Requested Visits Authorized [id number] Pending Review Evaluate and Treat 06/26/2024 07/26/2025 24 24 Question Answer PTRFR PT Evaluate and Treat Therapy options discussed with patient? Yes Location provided for therapy services is: Patient requested/Patient preferred Please select the performing region: [facility] [[id number]] Please select the performing department: [facility] PT [[id number]] To provider: BRENDA SUAREZ [[id number]] # of visits: 24 Comments Patient being referred due to perineural cysts up and down patients back as well as physical deconditioning. Please contact patient to schedule, thank you. 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 Dr. Suarez's office to contact patient to schedule. T SAFETY ENGINEER * Telephone Encounter - Vicenta Melo RN - 06/26/2024 10:44 AM PLANT SAFETY ENGINEER June 25, 2024 Nabila King MD to Vanessa Koehler EVENT SPECIALIST [facility] Im/Fm Staff Pool 06/25/24 7:34 PM Great idea refer to BRENDA Titus. T SAFETY ENGINEER * Telephone Encounter - Helga Lenz - 06/25/2024 3:05 PM PLANT SAFETY ENGINEER Patient called stating that she had her initial PT evaluation and states that the physical therapist recommended that she get a referral from Dr. RAMIREZ for neurology due to perineural cysts up and downher back. Wants to go to Dr. Brenda Suarez out of [facility]. [phone] T SAFETY ENGINEER documented in this encounter Plan of Treatment Scheduled Referrals Name Type Priority Associated Diagnoses Orde r Schedule Ambulatory referral order to Physical Therapy - Outpatient Referral Routine Perineural cysts Physical deconditioning Expected: 07/11/2024 (Approximate), Expires: 06/26/2025 documented as of this encounter Visit Diagnoses Diagnosis Perineural cysts- Primary Mononeuritis of unspecified site Physical deconditioning Muscular wasting and disuse atrophy, not elsewhere classified documented in this encounter Care Teams Paramedical Aide Relationship Specialty Start Date End Date Nabila King MD [facility] [address] [place] [address] PCP - General Internal Medicine 12/16/20 Christine Kendall MD Surgeon Ophthalmology 12/13/20 Sita Magana MD [facility] [address] [place] [address] Consulting Physician Internal Medicine 12/13/20 Regulo Pandey MD [address] [facility] [address] [place] [address] Referring Physician Cardiovascular Disease 12/16/20 Gigi Méndez MD [address] [facility] [address] [place] [address] Referring Physician Cardiology 02/18/21 Bc Martinez MD [address] [place] [address] Referring Physician Cardiology 08/22/23 Martin Correa MD [address] [place] [address] Consulting Physician Cardiothoracic Surgery 08/22/23 documented as of this encounter
--- OUTSIDE RECORDS SUMMARY | 2024-08-09 17:46 | XMS_ITS | Encounter Summary ---
Author Organization [facility] Healthcare Address [address] [place] [address] Care Team Providers Care Senior Education Specialist Name Role Phone Christine Kendall MD Unavailable [phone] Sita Magana MD Unavailable [phone] Nabila King MD Primary Care Provider + [phone] Regulo Pandey MD Unavailable Gigi Méndez MD Unavailable [phone] Bc Martinez MD Unavailable [phone] Martin Correa MD Unavailable [phone] Gildardo Gonzáles Si, MD Unavailable Reason for Visit * Reason Onset Date Comments PT Diagnosis 06/26/2024 Encounter Details Date Type Department Care Team (Late st Contact Info) Description 06/26/2024 Telephone [facility] Medical Group [facility] [address] [place] [phone] Nabila King MD [address] [place] [address] PT Diagnosis Social History Tobacco Use Types Packs/Day Years [...] on file Legal Sex Female 8:14 PM TOBACCO WEIGHER Gender Identity Not on file Sexual Orientation Not on file 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 Will let [facility] PT know that we fixed the order. CCO WEIGHER * Telephone Encounter - Imelda Gaytan NP - 06/26/2024 1:48 PM CST Ok to change dx to physical deconditioning. CCO WEIGHER * Telephone Encounter - Elizabeth Whitaker - 06/26/2024 1:15 PM TOBACCO WEIGHER Received secure message from [facility] stating that chronic back and neck pain not being covered diagnosis for patient to received physical therapy. Asked to change diagnosis to weakness, deconditioning or strengthening. FYI [facility] ORIGINAL MESSAGE: this dx for Physical Therapy is not acceptable by insurance company. Please change dx ie, weakness,deconditioning, or strengthening CCO WEIGHER documented in this encounter Plan of Treatment Not on file documented as of this encounter Visit Diagnoses Not on filedocumented in this encounter Care Teams Senior Education Specialist Relationship Specialty Start Date End Date Nabila King MD [address] [facility] [address] [address] PCP - General Internal Medicine 12/16/20 Christine Kendall MD Surgeon Ophthalmology 12/13/20 Sita Magana MD [address] [facility] [address] [place] [address] Consulting Physician Internal Medicine 12/13/20 Regulo Pandey MD [address] [facility] [address] [place] [address] Referring Physician Cardiovascular Disease 12/16/20 Gigi Méndez MD [address] [facility] [address] [place] [address] Referring Physician Cardiology 02/18/21 Bc Martinez MD [address] [place] [address] Referring Physician Cardiology 08/22/23 Martin Correa MD [address] [place] [address] Consulting Physician Cardiothoracic Surgery 08/22/23 NiviaGildardo Si, MD [facility] [facility] [address] [place] [address] Consulting Physician Neurology 07/09/24 documented as of this encounter
--- OUTSIDE RECORDS SUMMARY | 2024-08-09 17:46 | XMS_ITS | Encounter Summary ---
Author Organization [facility] Healthcare Address [address] [place] [address] Care Team Providers Care Steeple Jack Name Role Phone Christine Kendall MD Unavailable [phone] Sita Magana MD Unavailable [phone] Nabila King MD Primary Care Provider + [phone] Regulo Pandey MD Unavailable Gigi Méndez MD Unavailable [phone] Bc Martinez MD Unavailable [phone] Martin Correa MD Unavailable [phone] Reason for Visit * Reason Onset Date Comments Regarding all 4 MRI's. 04/11/2024 Encounter Details Date Type Department Care Team (Late st Contact Info) Description 04/11/2024 Telephone [facility] Medical [facility] [address] [place] [phone] Nabila King MD [address] [place] [address] Regarding all 4 MRI's. 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 * Telephone Encounter - Marianna Dumont - 04/15/2024 3:24 PM CDT MRI Thoracic w wo contrast & MRI Lumbar w wo contrast still pending with insurance. Pt aware of this & knows will have to cx her MRI's for now scheduled at [facility] on 04-16-24. She knows once I hear back from insurance I will let her know. Diandra at [facility] is aware of this & cx'd MRI's. She also knows we are waiting results of MRI Cervical Spine w wo contrast & once we received wewill call her with results & will see,if Dr. Nabila King still wants MRI Face w wo contrast. We did get records (imaging) from [employer] [facility] [employer] [facility] [facility]-Dr. Sidney Faustin's office that we didn't have & will scan them into her chart. She voiced understanding. * Telephone Encounter - Marianna Dumont - 04/15/2024 3:[address] Sidney Faustin's records. * Telephone Encounter - Marianna Dumont - 04/12/2024 10:03 AM CDT Maribeth from [facility]-Dr. Sidney Faustin's office returned my call. She will send us all pertaining records. * Telephone Encounter - Marianna Dumont - 04/12/2024 9:51 AM CDT Noted. Nabila/Noelle at [facility] MRI Dept is aware of Dr. RAMIREZ Message & voiced understanding. She states then all MRI order's will remain w & w/o contrast. She knows I corrected the MRI Lumbar order to w & w/o contrast & this order was faxed to Nabila at [facility] MRI Dept. . Nabila says she has all the other MRI order's. * Telephone Encounter - Marianna Dumont - 04/12/2024 9:43 AM CDT Per, Dr. RAMIREZ through secure chat. That's a very good question and it could be either. She has dental disease so this could be a tracking infection. She's older so it could be a cancer.... * Telephone Encounter - Marianna Dumont - 04/12/2024 8:34 AM CDT Noelle from [facility]'s MRI Dept wants to know is Dr. Nabila King looking for a tumor,mass or infection. If, not all MRI's should be w/o contrast. Pt is going today for a MRI Cervical w w/o contrast & Noelle already knows MRI Face w w/o contrast was Denied. Reason: Imaging can be done when needed to plan a surgery for her. Our records do not show the imaging is needed for this reason. KMS: Please advise. Her appt is today at 1:00pm. FYI: Noelle aware MRI Lumbar w/o contrast order has been cx'd. Changed order yesterday to MRI Lumbar w w/o contrast like the other MRI's. She voiced understanding & knows we are waiting to hear back from Dr. Nabila King on this because these order's could change. * Telephone Encounter - Marianna Dumont - 04/11/2024 2:31 PM CDT Noelle from [facility] MRI Dept is aware of Dr. 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 Schedule MRI thoracic spine, and lumbar spine in a pacemaker compatible MRI scanner. She states they don't do these MRI's with just with contrast. It's either wo or w & w/o. Yes they are pacemaker compatible MRI scanner. Pt is scheduled to have a MRI Face w wo contrast (This was Denied by insurance & has been cx'd for tomorrow 04-12-24) & MRI Cervical Spine w wo contrast (Approved by insurance) is scheduled for tomorrow 04-12-24. MRI Thoracic w wo contrast & MRI Lumbar w wo contrast is scheduled for 04-16-24 still pending with insurance. She wants to know is Dr. Nabila King looking for infection? If,not looking for infection no contrast is needed on any of the #4 MRI's scheduled. She wants to know what is she looking for? MRI Cervical Spine w wo contrast has already been approved by insurance for her appt tomorrow. MRI Face w wo contrast has been Denied. Reason: Imaging can be done when needed to plan a surgery for her. Our records do not show the imaging is needed for this reason. This test has been cx'd as ofnow. Will try to get records/imaging pt said she had from her [employer] [facility]-Dr. Sidney Faustin #[phone].[id number] for them to return my call. His office is closed today. Pt states she recently just seen him & he swears she has no infection. She is aware of the denial of MRI face right now & is okay with this. She states she will go tomorrow for her MRI Cervical Spine & knows it's approved. She also knows MRI Thoracic & MRI Lumbar is pending with insurance & I will let her know once they get approved before her 04-16-24 appt.. She voiced understanding. Noelle from [facility] MRI Dept is aware of all this & to let her know. [id number] Patient cbn:#[phone] KMS is aware Face MRI Denied & pt is scheduled for other MRI'S as above. documented in this encounter Plan of Treatment Not on file documented as of this encounter Visit Diagnoses Not on filedocumented in this encounter Care Teams Steeple Jack Relationship Specialty Start Date End Date Nabila King MD [address] [place] [address] [address] [place] [address] PCP - General Internal Medicine 12/16/20 Christine Knedall MD Surgeon Ophthalmology 12/13/20 Sita Magana MD [address] [facility] [address] [place] [address] Consulting Physician Internal Medicine 12/13/20 Regulo Pandey MD [address] [facility] [address] [place] [address] Referring Physician Cardiovascular Disease 12/16/20 Gigi Méndez MD [address] [facility] [address] [place] [address] Referring Physician Cardiology 02/18/21 Bc Martinez MD [address] [place] [address] Referring Physician Cardiology 08/22/23 Martin Correa MD [address] [place] [address] Consulting Physician Cardiothoracic Surgery 08/22/23 documented as of this encounter
--- OUTSIDE RECORDS SUMMARY | 2024-08-09 17:46 | XMS_ITS | Encounter Summary ---
Author Organization [facility] Healthcare Address [address] [place] [address] Care Team Providers Care Blue Line Operator Name Role Phone Christine Kendall MD Unavailable [phone] Sita Magana MD Unavailable [phone] Nabila King MD Primary Care Provider + [phone] Regulo Pandey MD Unavailable Gigi Méndez MD Unavailable [phone] Bc Martinez MD Unavailable [phone] Martin Correa MD Unavailable [phone] Encounter Details Date Type Department Care Team (Late st Contact Info) Description 03/21/2024 Telephone [facility] Medical [facility] [address] [place] [id number] Nabila King MD [address] [place] [address] Social History Tobacco Use Types Packs/Day Years [...] on file Legal Sex Female 8:14 PM BEER MERCHANT Gender Identity Not on file Sexual Orientation Not on file 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 contact her to schedule her 4 MRI. They are splitting them up and are doing 2 MRI on 04/12 and the other 2 on 04/16. Scheduled the pt to come in on 05/14 to goover test results. FYI to [facility] documented in this encounter Plan of Treatment Not on file documented as of this encounter Visit Diagnoses Not on filedocumented in this encounter Care Teams Blue Line Operator Relationship Specialty Start Date End Date Nabila King MD [address] [place] [address] PCP - General Internal Medicine 12/16/20 Christine Kendall MD Surgeon Ophthalmology 12/13/20 Sita Magana MD [address] [place] [address] [address] [place] [address] Consulting Physician Internal Medicine 12/13/20 Regulo Pandey MD [address] [place] [address] Referring Physician Cardiovascular Disease 12/16/20 Gigi Méndez MD [address] [place] [address] Referring Physician Cardiology 02/18/21 Bc Martinez MD [address] [place] [address] Referring Physician Cardiology 08/22/23 Martin Correa MD [address] [place] [address] Consulting Physician Cardiothoracic Surgery 08/22/23 documented as of this encounter
--- OUTSIDE RECORDS SUMMARY | 2024-08-09 17:46 | XMS_ITS | Encounter Summary ---
Author Organization [facility] Healthcare Address [address] [place] [address] Care Team Providers Care Window Draper Name Role Phone Christine Kendall MD Unavailable [phone] Sita Magana MD Unavailable [phone] Nabila King MD Primary Care Provider + [phone] Regulo Pandey MD Unavailable Gigi Méndez MD Unavailable [phone] Bc Martinez MD Unavailable [phone] Martin Correa MD Unavailable [phone] Reason for Referral * Consultation (Routine) - Pending Review Specialty Diagnoses / Procedures Referred By Contac t Referred To Contact Physical Therapy Diagnoses Chronic back pain, unspecified back location, unspecified back pain laterality Chronic neck pain Imelda Gaytan NP [address] [place] [address] Phone: tel: fax: [facility] [address] [place] [address] Phone: tel: fax: Referral ID Status Reason Start Date Expiration Date Visits Requested Visits Authorized [id number] Pending Review Evaluate and Treat 4 07/13/2025 24 Question Answer PTRFR PT Evaluate and Treat Therapy options discussed with patient? Yes Location provided for therapy services is: Patient requested/Patient preferred Please select the performing region: External Order [171] To loc/pos [facility] [[id number]] # of visits: 24 Comments Please contact the pt to schedule for chronic back and neck pain. Thanks! Reason for Visit * Reason Comments 6 month follow up Test Results Encounter Details Date Type Department Care Team (Late st Contact Info) Description 06/13/2024 9:30 AM CDT Office Visit [facility] Medical [facility] [address] [place] [address] Imelda Gaytan NP [address] [place] [address] Chronic bilateral back pain, unspecified back location (Primary Dx); Chronic neck pain; ASVD (arteriosclerotic vascular disease); Periodontal disease Social History Tobacco Use Types Packs/Day Years [...] on file Legal Sex Female 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 Gender Identity Not on file Sexual Orientation Not on file 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 Not on file documented as of this encounter Last Filed Vital Signs Vital Sign Reading Time Taken Comments Blood Pressure 110/66 06/13/2024 9:20 AM CDT Pulse 80 06/13/2024 9:20 AM CDT Temperature 36.4 ??C (97.5 ??F) 06/13/2024 9:20 AM CD T Respiratory Rate 18 06/13/2024 9:20 AM CDT Oxygen Saturation 98% 06/13/2024 9:20 AM CDT Inhaled Oxygen Concentration - - Weight 55.3 kg (122 lb) 06/13/2024 9:20 AM CDT Height 162.6 cm (5' 4 ) 06/13/2024 9:20 AM CDT Body Mass Index 20.94 06/13/2024 9:20 AM CDT documented in this encounter Patient Instructions * Patient Instructions* Imelda Gaytan NP - 06/13/2024 9:30 AM CDT REFER to PT in [facility] for chronic back and neck pain. documented in this encounter Progress Notes * Imelda Gaytan NP - 06/13/2024 9:30 AM CDT Images from the original note were not included. Patient ID: Lisa Conn is a 88 y.o. female. Chief Complaint. Chief Complaint Patient presents with 6 month follow up Test Results HPI. Patient is a 88 y.o. female HPI Presents for regular follow up on CAD, CHF, HLD, RUDY, hypothyroidism. Labs Chastity-normal. Still has itching/ fireworks to left head. Will rarely radiate down both arms. No numbness. Cervical MRI 03/2024 showed severe bilateral foraminal narrowing at multiple levels but no central stenosis. S/p Thoracic and Lumbar MRIs for chronic back pain-foraminal stenosis and multiple cysts (T11/12 and sacral canal). Worst at L5-S1. Admits dull acing/stabbing with bilateral leg weakness. No incontinence. Couldn't go to Dr. Elkins due to cost. Asking about different PT. Refused gabapentin due to fatigue Sees human resources communications manager for dental issues and recent bone graft. Still taking doxycycline as Rx. No new concerns at this time. 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, severe stage Migraine Nuclear sclerotic cataract of right eye 01/07/2018 Pseudophakia left S/P laser trabeculoplasty of eye 1999 Both eyes Thyroid disease Current Medications: Outpatient Encounter Medications as of 06/13/2024 Medication Sig Dispense Refill acetaminophen (TYLENOL) 500 mg tablet Take 1 tablet (500 mg total) by mouth every 6 (six) hours as needed for pain apixaban (ELIQUIS) 2.5 mg tablet 1 tablet (2.5 mg total) 2 (two) times a day cholecalciferol (VITAMIN D-3) 50,000 unit capsule Take 1 capsule (50,000 Units total) by mouth oncea week 60 capsule 0 dilTIAZem (CARDIZEM) 60 mg tablet Take 0.5 tablets (30 mg total) by mouth 3 (three) times a day (Patient taking differently: Take 0.5 tablets (30 mg total) by mouth 2 (two) times a day) 135 tablet 2 doxycycline hyclate (VIBRAMYCIN) 50 mg capsule Take 1 capsule (50 mg total) by mouth daily with dinner Avoid dairy 30 minutes before to 60 minutes after taking the pill 100 capsule 3 ketorolac (ACULAR LS) 0.4 % drops Administer 1 drop into both eyes daily 5 mL 11 levothyroxine (SYNTHROID) 50 mcg tablet Take 1 tablet (50 mcg total) by mouth nightly 90 tablet 2 LORazepam (ATIVAN) 1 mg tablet Take 1 tablet (1 mg total) by mouth nightly as needed multivitamin capsule Take 1 capsule by mouth daily rosuvastatin (CRESTOR) 10 mg tablet Take 1 tablet (10 mg total) by mouth daily before dinner 30 tablet 11 senna (SENOKOT) 8.6 mg tablet Take 1-2 tablets by mouth daily as needed for constipation 200 tablet2 [DISCONTINUED] aspirin 81 mg enteric coated tablet Take 81 mg by mouth daily (Patient not taking: Reported on 03/02/2022) [DISCONTINUED] chlorhexidine (PERIDEX) 0.12 % solution Dental provider (Patient not taking: Reported on 06/13/2024) [DISCONTINUED] magnesium oxide (MAG-OX) 400 mg (241.3 mg elemental magnesium) tablet Take 1 tablet (400 mg total) by mouth 2 (two) times a day (Patient not taking: Reported on 03/02/2022) 60 tablet 11 [DISCONTINUED] polyethylene glycol (MIRALAX) 17 gram/dose bulk powder Take 17 g by mouth nightly (Patient not taking: Reported on 06/13/2024) 850 g 11 No facility-administered encounter medications on file as of 06/13/2024. Medications Discontinued During This Encounter Medication Reason chlorhexidine (PERIDEX) 0.12 % solution Therapy completed polyethylene glycol (MIRALAX) 17 gram/dose bulk powder Therapy completed Allergies Allergies Allergen Reactions Sulfa (Sulfonamide Antibiotics) Unknown Clarithromycin Hives Mastisol Adhesive [Gum Uyubqx-Ylcgoj-Cttz-Alcohol] Hives and Rash Pt reports this is when EKG lead adhesive patches are used. 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 Review of Systems Constitutional: Negative for appetite change, chills, fatigue and fever. Eyes: Negative for visual disturbance. Respiratory: Negative for cough, chest tightness and shortness of breath. Cardiovascular: Negative for chest pain, palpitations and leg swelling. Gastrointestinal: Negative for abdominal pain, constipation, diarrhea, nausea and vomiting. Genitourinary: Negative for difficulty urinating. Musculoskeletal: Positive for back pain, gait problem and neck pain. Negative for arthralgias, joint swelling, myalgias and neck stiffness. Skin: Negative for color change. Neurological: Positive for weakness (legs) and numbness (tingling down bot arms rarely.). Negative for dizziness, tremors, syncope and headaches. Psychiatric/Behavioral: Negative for dysphoric mood and sleep disturbance. BP 110/66 (BP Location: Left arm, Patient Position: Sitting) Pulse 80 Temp 36.4 ??C (97.5 ??F) (Temporal) Resp 18 Ht 162.6 cm (5' 4 ) Wt 55.3 kg (122 lb) SpO2 98% BMI 20.94 kg/m?? Body mass index is 20.94 kg/m??. Wt Readings from Last 3 Encounters: 06/13/24 55.3 kg (122 lb) 03/06/24 56.2 kg (124 lb) 09/06/23 55.3 kg (122 lb) Physical Exam Vitals and nursing note reviewed. Constitutional: General: She is not in acute distress. Appearance: Normal appearance. She is not ill-appearing. HENT: Head: Normocephalic and atraumatic. Eyes: Conjunctiva/sclera: Conjunctivae normal. Pupils: Pupils are equal, round, and reactive to light. Cardiovascular: Rate and Rhythm: Normal rate and regular rhythm. Heart sounds: Normal heart sounds. No murmur heard. No gallop. Pulmonary: Effort: Pulmonary effort is normal. No respiratory distress. Breath sounds: Normal breath sounds. Musculoskeletal: Right shoulder: Normal. Left shoulder: Normal. Cervical back: Tenderness and bony tenderness (C5-7) present. No swelling, deformity, signs of trauma, rigidity, spasms, torticollis or crepitus. No pain with movement. Decreased range of motion (mildly decreased flexion, approx 90% PROM). Thoracic back: Normal. Lumbar back: Tenderness (bialteral lower lumbar muscles) and bony tenderness (L5-S1) present. No swelling, deformity, signs of trauma or spasms. Normal range of motion. Negative right straight leg raise test and negative left straight leg raise test. No scoliosis. Right hip: Tenderness (upper glutes, none to SIJ) present. No deformity, bony tenderness or crepitus. Normal range of motion. Normal strength. Left hip: Tenderness (upper glutes, none to SIJ) present. No deformity, bony tenderness or crepitus. Normal range of motion. Normal strength. Right lower leg: No edema. Left lower leg: No edema. Skin: General: Skin is warm and dry. Neurological: General: No focal deficit present. Mental Status: She is alert and oriented to person, place, and time. Psychiatric: Mood and Affect: Mood normal. Behavior: Behavior normal. No visits with results within 3 Month(s) from this visit. Latest known visit with results is: Office Visit on 03/06/2024 Component Date Value LDL Chol, Direct 05/28/2024 64 Assessment & Plan: Diagnoses and all orders for this visit: Chronic bilateral back pain, unspecified back location (Primary) Assessment & Plan: Chronic, uncontrolled. Worse in the last 3 months. Cervical MRI from 03/2024 shows Severe bilateralneural foraminal stenosis at C3/C4, C5/C6 and C6/C7. Moderate bilateral foraminal stenosis at C4/C5. Thoracic and lumbar MRIs from 2 days ago show Mild Modic type I degenerative changes at T7/T8, left. No acute osseous abnormality. 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 No other acute findings.We will refer to Physical therapy for further assessment and generalized strengthening. Can not take NSAIDs due to Eliquis use, continue Tylenol as needed. Heat or ice as tolerated. Offered to Rx gabapentin for radicular symptoms-patient refused due to previously took it with uncomfortably increased fatigue. Also offered muscle relaxers, patient refused at this time. Orders: - Ambulatory referral order to Physical Therapy -; Future Chronic neck pain Assessment & Plan: Chronic, uncontrolled. Worse in the last 3 months. Cervical MRI from 03/2024 shows Severe bilateralneural foraminal stenosis at C3/C4, C5/C6 and C6/C7. [...] muscle relaxers, patient refused at this time. Orders: - Ambulatory referral order to Physical Therapy -; Future ASVD (arteriosclerotic vascular disease) Assessment & Plan: Chronic, controlled. Managed by Cardiology. CMP from January unremarkable, recent LDL after restartingCrestor is back within normal limits. Echo from 07/2023 showed EF of 60% with moderate tricuspid and aortic regurg. No acute findings on exam, vitals stable. Continue same. Periodontal disease Assessment & Plan: Chronic, controlled. Recent facial MRI shows Nonspecific 1.6 x 0.3 x 1.3 cm peripherally enhancingfluid collection along the anterior midline mandibular body suspicious for an abscess in the appropriate clinical setting. No adjacent cortical destruction or bone edema. Mild mucosal thickening of the inferior left maxillary sinus. Patient has been taking daily doxycycline since February and has seenorthodontist multiple times. CBC from January unremarkable. No acute findings on exam today-no abscessor drainage noted. Continue same Return in about 22 weeks (around 11/14/2024), or if symptoms worsen or fail to improve, for Next scheduled follow up. Imelda Gaytan NP Cosigned by Nabila King MD at 06/23/2024 7:15 PM HOME FIRE ALARM INSTALLER FIRE ALARM INSTALLER FIRE ALARM INSTALLER documented in this encounter Miscellaneous Notes * Assessment & Plan Note - Imelda Gaytan NP - 06/23/2024 6:40 PM CSTAssociated Problem(s): Periodontal disease Chronic, controlled. Recent facial MRI shows Nonspecific 1.6 x 0.3 x 1.3 cm peripherally enhancingfluid collection along the anterior midline mandibular body suspicious for an abscess in the appropriate clinical setting. No adjacent cortical destruction or bone edema. Mild mucosal thickening of the inferior left maxillary sinus. Patient has been taking daily doxycycline since February and has seenorthodontist multiple times. CBC from January unremarkable. No acute findings on exam today-no abscessor drainage noted. Continue same FIRE ALARM INSTALLER * Assessment & Plan Note - Imelda Gaytan NP - 06/23/2024 6:33 PM CSTAssociated Problem(s): ASVD (arteriosclerotic vascular disease) Chronic, controlled. Managed by Cardiology. CMP from January unremarkable, recent LDL after restartingCrestor is back within normal limits. Echo from 07/2023 showed EF of 60% with moderate tricuspid and aortic regurg. No acute findings on exam, vitals stable. Continue same. FIRE ALARM INSTALLER * Assessment & Plan Note - Imelda Gaytan NP - 06/23/2024 6:28 PM CSTAssociated Problem(s): Chronic neck pain Chronic, uncontrolled. Worse in the last 3 months. Cervical MRI from 03/2024 shows Severe bilateralneural foraminal stenosis at C3/C4, C5/C6 and C6/C7. [...] muscle relaxers, patient refused at this time. FIRE ALARM INSTALLER * Assessment & Plan Note - Imelda Gaytan NP - 06/23/2024 6:27 PM CSTAssociated Problem(s): Chronic bilateral back pain Chronic, uncontrolled. Worse in the last 3 months. Cervical MRI from 03/2024 shows Severe bilateralneural foraminal stenosis at C3/C4, C5/C6 and C6/C7. Moderate bilateral foraminal stenosis at C4/C5. Thoracic and lumbar MRIs from 2 days ago show Mild Modic type I degenerative changes at T7/T8, left. No acute osseous abnormality. 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 FIRE ALARM INSTALLER documented in this encounter Plan of Treatment Scheduled Referrals Name Type Priority Associated Diagnoses Orde r Schedule Ambulatory referral order to Physical Therapy - Outpatient Referral Routine Chronic bilateral back pain, unspecified back location Chronic neck pain Expected: 06/28/2024 (Approximate), Expires: 06/13/2025 documented as of this encounter Visit Diagnoses Diagnosis Chronic bilateral back pain, unspecified back location- Primary Chronic neck pain Cervicalgia ASVD (arteriosclerotic vascular disease) Periodontal disease Unspecified gingival and periodontal disease documented in this encounter Discontinued Medications Medication Sig Discontinue Reason Start Date End Da te chlorhexidine (PERIDEX) 0.12 % solution Dental provider Therapy completed 03/01/2024 06/13/2024 polyethylene glycol (MIRALAX) 17 gram/dose bulk powderIndications:Chroni c constipation Take 17 g by mouth nightly Therapy completed 03/06/2024 06/13/2024 documented as of this encounter Care Teams Window Draper Relationship Specialty Start Date End Date Nabila King MD [address] [place] [address] [address] [place] [address] PCP - General Internal Medicine 12/16/20 Christine Kendall MD Surgeon Ophthalmology 12/13/20 Sita Magana MD [address] [place] [address] [address] [place] [address] Consulting Physician Internal Medicine 12/13/20 Regulo Pandey MD [address] [place] [address] [address] [place] [address] Referring Physician Cardiovascular Disease 12/16/20 Gigi Méndez MD [address] [place] [address] [address] [place] [address] Referring Physician Cardiology 02/18/21 Bc Martinez MD [address] [place] [address] Referring Physician Cardiology 08/22/23 Martin Correa MD [address] [place] [address] Consulting Physician Cardiothoracic Surgery 08/22/23 documented as of this encounter
--- OUTSIDE RECORDS SUMMARY | 2024-08-09 17:46 | XMS_ITS | Encounter Summary ---
Author Organization [facility] Address [address] [place] [address] Care Team Providers Care County Treasurer Name Role Phone Unavailable Primary Care Provider Unavailabl e Encounter Details Date Type Department Care Team (Late st Contact Info) Description 09/11/2020 12:00 PM SATURATION EQUIPMENT OPERATOR Rapid Evaluation [facility] Mobile Testing [address] [place] [id number] Social History Tobacco Use Types Packs/Day Years Used Date Smoking Tobacco: Never Assessed Comments Unknown Sex and Gender Information Value Date Recorded Sex Assigned at Not on file Legal Sex Female 11:19 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
--- OUTSIDE RECORDS SUMMARY | 2024-08-09 17:46 | XMS_ITS | Referral Summary ---
Author Organization [facility] Address [address] [place] [address] Phone Care Team Providers Care Firer Watertender Name Role Phone FaizaChristine mak MD Unavailable [phone] Melinda Magana MD Unavailable [phone] Nabila King MD Primary Care Provider + [phone] Regulo Pandey MD Unavailable Gigi Méndez MD Unavailable [phone] Bc Martinez MD Unavailable [phone] Martin Correa MD Unavailable [phone] NiviaGildardo bowen Si, MD Unavailable Encounters Date Type Department Care Team Description 08/08/2024 Telephone [facility] Ophthalmology [facility] [place] [address] Gracy Ocampo COA 08/06/2024 11:45 AM OFFICE RECEPTIONIST Office Visit [facility] [address] [place] [address] Nabila King MD Acute hearing loss of both ears (Primary Dx); Endolymphatic hydrops of left ear; 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 [facility] [address], [address] [place] [address] Christine Kendall MD Age-related nuclear cataract of right eye (Primary Dx); Low-tension glaucoma, bilateral, severe stage 07/15/2024 11:20 AM OFFICE RECEPTIONIST Imaging Exam [facility] Ophthalmology [address] [facility] [address], [address] [place] [address] 07/09/2024 10:30 AM OFFICE RECEPTIONIST Office Visit [facility] Neurology [address] [facility] [address] [place] [address] NiviaGildardo Si, MD Pain; Numbness; Dizziness; Chronic bilateral low back pain, unspecified whether sciatica present; Chronic neck pain; Neuroforaminal stenosis of lumbar spine 07/03/2024 Telephone [facility] [address] [place] [address] Nabila King MD Dizziness 06/26/2024 Telephone [facility] [address] [place] [address] Nabila King MD PT Diagnosis 06/25/2024 Telephone [facility] [address] [place] [address] Nabila King MD Neuro Referral 06/13/2024 Telephone [facility] [address] [place] [address] Imelda Gaytan NP 06/13/2024 9:30 AM CDT Office Visit [facility] [address] [place] [address] Imelda Gaytan NP Chronic bilateral back pain, unspecified back location (Primary Dx); Chronic neck pain; ASVD (arteriosclerotic vascular disease); Periodontal disease 06/10/2024 Orders Only [facility] [address] [place] [address] Scanning, Provider from Last 3 Months Allergies Active Allergy Reactions Criticality Noted Date Comments Chloramphenicol Other (See comments) Low Damaged liver and wiped out white blood cells Clarithromycin Hives Medium Gum Dbbddr-Yxdtfv-Zejl-Alcoho l Hives,Rash Medium 03/18/2022 Pt reports this [...] drop into both eyes daily 5 mL 023 Active doxycycline hyclate (VIBRAMYCIN) 50 mg capsuleIndication s:Periodontal disease,Dental infection Take 1 capsule (50 mg total) by mouth daily with dinner Avoid dairy 30 minutes before to 60 minutes after taking the pill 100 capsule 3 024 Active senna (SENOKOT) 8.6 mg tabletIndications :Chronic constipation Take 1-2 tablets by mouth daily as needed for constipation 200 tablet 2 024 Active levothyroxine (SYNTHROID) 50 mcg tabletIndications :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 Worse in the last 3 [...] 06/23/2024 Assessment & Plan (06/23/2024 6:28 PM OFFICE RECEPTIONIST): Chronic, uncontrolled. Worse in the last 3 [...] 06/23/2024 Assessment & Plan (06/23/2024 6:40 PM OFFICE RECEPTIONIST): Chronic, controlled. Recent facial MRI shows Nonspecific 1.6 x 0.3 x 1.3 cm peripherally enhancing fluid collection along the anterior midline mandibular body suspicious for an abscess in the appropriate clinical setting. No adjacent cortical destruction or bone edema. Mild mucosal thickening of the inferior left maxillary sinus. Patient has been taking daily doxycycline since February and has seen paint roller cover machine setter multiple times. CBC from January unremarkable. No [...] fibrillation (CMS/HCC) History of Helicobacter pylori infection 021 Overview (03/19/2021): She reports past treatment for [...] 0 Assessment & Plan (06/23/2024 6:33 PM OFFICE RECEPTIONIST): Chronic, controlled. Managed by Cardiology. CMP from [...] normal reflexes. She recently started turmeric and med care manager last week along with stretching exercises. I did offer referral to pain management but patient declined. She will continue with current management and return as scheduled or sooner if needed. AI (aortic insufficiency) 04/05/2016 Overview (04/10/2022): ECHOCARDIOGRAM October 2021 [address]. Kalvaitis Mild to moderate aortic regurgitation. Moderate tricuspid regurgitation. Right ventricular systolic pressure is 30-40 mmHg suggestive of mild pulmonary hypertension. Low-tension glaucoma, bilateral, severe stage Assessment & Plan (07/15/2024 11:01 PM OFFICE RECEPTIONIST): intraocular pressure (IOP) acceptable off meds status [...] DFE Assessment & Plan (09/20/2021 6:46 PM OFFICE RECEPTIONIST): intraocular pressure (IOP) acceptable off meds status [...] 24-2 Assessment & Plan (07/23/2018 11:42 AM OFFICE RECEPTIONIST): intraocular pressure (IOP) excellent- blebs functioning well [...] 2014 Assessment & Plan (07/15/2024 11:02 PM OFFICE RECEPTIONIST): Now VS with glare symptoms No noted [...] observe Assessment & Plan (09/20/2021 12:48 PM OFFICE RECEPTIONIST): Not VS- observe Assessment & Plan (12/14/2020 [...] visit Assessment & Plan (07/23/2018 11:42 AM OFFICE RECEPTIONIST): Not visually significant Assessment & Plan (01/22/2018 [...] may benefit from pain management. Alan's thyroiditis 09/10/202103/22 Dizziness 05/21/2021 04/10/2022 Adjustment disorder with anxiety [...] based on culture results. Other atopic dermatitis 02/18/202103/22 Assessment & Plan (02/18/2021 2:13 PM CDT): [...] undergo trial of Doxy 50 mg/day per sas architect Pseudophakia 01/22/2018 04/10/2022 Assessment & Plan (03/18/2022 11:46 AM CDT): Recommend MRx with local grinder hand Mitral valve disease 09/30/2014 022 Overview (11/24/2016): Mitral valve disorder Immunizations Name Administration Dates Next Due COVID-19 [...] valent, Original/omicron Ba.1 05/01/2024 ZOSTER Recombinant 05/03/2018,02/02/2018 Social History Tobacco Use Types Packs/Day Years [...] on file Legal Sex Female 8:14 PM OFFICE RECEPTIONIST Gender Identity Not on file Sexual Orientation Not on file 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 Not on file Last Filed Vital Signs Vital Sign Reading Time Taken Comments Blood Pressure 130/66 08/06/2024 11:55 AM OFFICE RECEPTIONIST Pulse 80 08/06/2024 11:55 AM OFFICE RECEPTIONIST Temperature 36.3 ??C (97.3 ??F) 08/06/2024 11:[address] Respiratory Rate 18 08/06/2024 11:55 AM OFFICE RECEPTIONIST Oxygen Saturation 97% 08/06/2024 11:55 AM OFFICE RECEPTIONIST Inhaled Oxygen Concentration - - Weight 56.8 kg (125 lb 3.2 oz) 08/06/2024 11:55 AM OFFICE RECEPTIONIST Height 162.6 cm (5' 4 ) 08/06/2024 11:55 AM OFFICE RECEPTIONIST Body Mass Index 21.49 08/06/2024 11:55 AM OFFICE RECEPTIONIST Plan of Treatment Not on file Procedures Procedure Name Priority Date/Time Associated Diagnosis Comments IOL BIOMETRY - OU - BOTH EYES Routine 07/15/2024 11:20 AM OFFICE RECEPTIONIST Age-related nuclear cataract of right eye SCAN - RADIOLOGY/IMAGING 06/10/2024 CHOLESTEROL, LDL, DIRECT Routine 05/28/2024 8:15 AM CDT Multiple-type hyperlipidemia CORNEAL TOPOGRAPHY - OU - BOTH EYES Routine 05/13/2024 10:00 AM CDT Age-related nuclear cataract of right eye from Last 3 Months Results * IOL Biometry - OU - Both Eyes (07/15/2024 11:20 AM OFFICE RECEPTIONIST) AC IOL (OS) 4.61 CONTINUUM AC IOL (OD) 3.02 CONTINUUM White to White (OS) 11.6 mm CONTINUUM White to White (OD) 11.5 mm CONTINUUM A LENGTH (OS) 24.25 CONTINUUM A LENGTH (OD) 24.24 CONTINUUM Anatomical Region Laterality Modality Head Ophthalmic Axial Measurements Narrative 07/15/2024 5:31 PM OFFICE RECEPTIONIST Right Eye Axial length was 24.24. White [...] AM CDT Performed at: ??01 - [facility] [address] ??[id number] Fine Arts Chair: Darek Farrell PhD, Phone: ??[phone] us Nabila King MD LAB BLOOD ORDERABLES Final Result [facility] - 01 * Corneal Topography - OU - Both Eyes (05/13/2024 10:00 AM CDT) Anatomical Region Laterality Modality Head Other Narrative 07/16/2024 2:20 PM OFFICE RECEPTIONIST Right Eye Quality was good. Progression has no prior data. Findings include normal observations. Left Eye Quality was good. Progression has no prior data. Notes No significant astigmatism confirmed right eye (OD) us Christine Kendall MD OPHTH MAPPING Edited R esult - Final from Last 3 Months Insurance [facility] MEDICARE [facility] [place] [address] [place] [address] [employer] MEDICARE Advance Directives For more information, please contact: [phone] Documents on File Type Date Recorded Patient Charge Poster Expl anation ADVANCE DIRECTIVE 07/04/2022 POWER OF A [employer] Care Teams Firer Watertender Relationship Specialty Start Date End Date Nabila King MD [address] [place] [address] [address] [place] [address] PCP - General Internal Medicine 12/16/20 Christine Kendall MD Surgeon Ophthalmology 12/13/20 Mel[facility] Magn[facility] [address] [place] [address] Consulting Physician Internal Medicine 12/13/20 Regulo Pandey MD [address] [place] [address] Referring Physician Cardiovascular Disease 12/16/20 Gigi Méndez MD [address] [facility] [address] [place] [address] Referring Physician Cardiology 02/18/21 Bc Martinez MD [address] [place] [address] Referring Physician Cardiology 08/22/23 Martin Correa MD [address] [place] [address] Consulting Physician Cardiothoracic Surgery 08/22/23 Gildardo [place] [address] [place] [address] [address] [place] [address] Consulting Physician Neurology 07/09/24
--- OUTSIDE RECORDS SUMMARY | 2024-08-09 17:46 | XMS_ITS | Encounter Summary ---
Author Organization [facility] Healthcare Address [address] [place] [address] Care Team Providers Care Shader And Toner Name Role Phone Christine Kendall MD Unavailable [phone] Sita Magana MD Unavailable [phone] Nabila King MD Primary Care Provider + [phone] Regulo Pandey MD Unavailable Gigi Méndez MD Unavailable [phone] Bc Martinez MD Unavailable [phone] Martin Correa MD Unavailable [phone] Encounter Details Date Type Department Care Team (Late st Contact Info) Description 03/07/2024 Telephone [facility] [address] [place] [phone] Eliu Reynolds RN Social History Tobacco Use Types Packs/Day Years [...] on file Legal Sex Female 8:14 PM CONCAVER Gender Identity Not on file Sexual Orientation Not on file 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 Not on file documented as of this encounter Miscellaneous Notes * Telephone Encounter - Eliu Reynolds RN - 03/07/2024 9:33 AM CDT Spoke to pt et informed of below KMS result message Pt voices understand et states MRI is ordered et pt is waiting for call back from [facility] in [facility] to verify they can do the MRI w/pt pacemaker-pt is to call back w/info Pt has no further questions @ this time * Telephone Encounter - Eliu Reynolds RN - 03/07/2024 9:25 AM CDT ----- Message from Nabila King MD sent at 03/06/2024 7:24 PM CDT ----- Inform her the results of x-rays confirmed the findings on examination with arthritic problems throughout the cervicothoracic and lumbar spine that would be better investigated with MRI. This is the summary of the problems Mild C3-C5 and moderate C5-C7 degenerative disc disease with multilevel cervical facet osteoarthritis and bilateral cervical foraminal impingement. Mild multilevel thoracic degenerative disc disease. Iykh-be-tmpfmuho L2-L3 and L4-S1 degenerative disc disease with grade 1 anterolisthesis of L4 on L5 and inferior lumbar facet osteoarthritis. documented in this encounter Plan of Treatment Not on file documented as of this encounter Visit Diagnoses Not on filedocumented in this encounter Care Teams Shader And Toner Relationship Specialty Start Date End Date Nabila King MD [address] [facility] [address] [address] PCP - General Internal Medicine 12/16/20 Christine Kendall MD Surgeon Ophthalmology 12/13/20 Sita Magana MD [address] [facility] [address] [place] [address] Consulting Physician Internal Medicine 12/13/20 Regulo Pandey MD [address] [place] [address] [address] [place] [address] Referring Physician Cardiovascular Disease 12/16/20 Gigi Méndez MD [address] [place] [address] [address] [place] [address] Referring Physician Cardiology 02/18/21 Bc Martinez MD [address] [place] [address] Referring Physician Cardiology 08/22/23 Martin Correa MD [address] [place] [address] Consulting Physician Cardiothoracic Surgery 08/22/23 documented as of this encounter
--- OUTSIDE RECORDS SUMMARY | 2024-08-09 17:46 | XMS_ITS | Encounter Summary ---
Author Organization [facility] Healthcare Address [address] [place] [address] Care Team Providers Care Brineyard Supervisor Name Role Phone Christine Kendall MD Unavailable [phone] Sita Magana MD Unavailable [phone] Nabila King MD Primary Care Provider + [phone] Regulo Pandey MD Unavailable Gigi Méndez MD Unavailable [phone] Bc Martinez MD Unavailable [phone] Martin Correa MD Unavailable [phone] Reason for Visit * Diagnostic Imaging (Routine) - Closed Specialty Diagnoses / Procedures Referred By Contac t Referred To Contact Diagnoses Thoracic radiculopathy Procedures XR Spine Thoracic 3 Vw Nabila King MD [address] [place] [address] Phone: tel: fax: [facility] [address] [place] [address] Referral ID Status Reason Start Date Expiration Date Visits Re quested Visits Authorized [id number] Closed 03/06/2024 04/05/2025 1 1 Encounter Details Date Type Department Care Team (Latest Contact Info) Description 03/06/2024 10:00 AM CDT Ancillary Procedure [facility] [address] [place] [address] Cervical radiculopathy; Thoracic radiculopathy Social History Tobacco Use Types Packs/Day [...] on file 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 Gender Identity Not on file Sexual Orientation Not on file 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 Not on file documented as of this encounter Plan of Treatment Not on file documented as of this encounter Procedures Procedure Name Priority Date/Time Associated Diagnosis Comments XR SPINE LUMBAR 2 OR 3 VIEWS Schedule Routine, Read Routine (OP Routine) 03/06/2024 10:10 AM CDT Cervical radiculopathy Thoracic radiculopathy XR SPINE THORACIC 3 VIEWS Schedule Routine, Read Routine (OP Routine) 03/06/2024 10:10 AM CDT Thoracic radiculopathy XR SPINE CERVICAL COMPLETE 4 OR 5 VW Schedule Routine, Read Routine (OP Routine) 03/06/2024 10:10 AM CDT Cervical radiculopathy documented in this encounter Results * XR Spine Lumbar 2 or 3 [...] anterolisthesis of L4 on L5. ??There is xoty-jd-uzsvvcly L2-L3 and L4-S1 degenerative disc disease. ?? Inferior lumbar facet osteoarthritis is present. IMPRESSION: Mild C3-C5 and moderate C5-C7 degenerative disc disease with multilevel cervical facet osteoarthritis and bilateral cervical foraminal impingement. Mild multilevel thoracic degenerative disc disease. Rtjt-ga-owynqvyn L2-L3 and L4-S1 degenerative disc disease with grade 1 anterolisthesis of L4 on L5 and inferior lumbar facet osteoarthritis. THIS IS AN ELECTRONICALLY VERIFIED FINAL REPORT 03/06/2024 7:06 PM - Electronically signed by ??Gigi Aguilar M.D. MF: [email or web address] D: ??03/06/2024 7:06 PM T: ??03/06/2024 7:06 PM Report ID: [id number] Reading Location: ??[id number] Procedure Note Gigi Aguilar MD - 03/06/2024 [...] 1 anterolisthesis of L4on L5. There is rsrp-gw-bsdqgavg L2-L3 and L4-S1 degenerative disc disease. Inferior lumbar facet osteoarthritis is present. IMPRESSION: Mild C3-C5 and moderate C5-C7 degenerative disc disease with multilevel cervical facet osteoarthritis and bilateral cervical foraminalimpingement. Mild multilevel thoracic degenerative disc disease. Crxh-mo-phayqxfb L2-L3 and L4-S1 degenerative disc disease with grade 1 anterolisthesis of L4 on L5 and inferior lumbar facet osteoarthritis. THIS IS AN ELECTRONICALLY VERIFIED FINAL REPORT 03/06/2024 7:06 PM - Electronically signed by Gigi Aguilar M.D. MF: JAMIL Report ID: [id number] Reading Location: [place] [address] Nabila King MD IMG XR PROCEDURES Final [...] anterolisthesis of L4 on L5. ??There is eemg-qg-tkvlfbzj L2-L3 and L4-S1 degenerative disc disease. ?? Inferior lumbar facet osteoarthritis is present. IMPRESSION: Mild C3-C5 and moderate C5-C7 degenerative disc disease with multilevel cervical facet osteoarthritis and bilateral cervical foraminal impingement. Mild multilevel thoracic degenerative disc disease. Sxva-op-roqskkkc L2-L3 and L4-S1 degenerative disc disease with grade 1 anterolisthesis of L4 on L5 and inferior lumbar facet osteoarthritis. THIS IS AN ELECTRONICALLY VERIFIED FINAL REPORT 03/06/2024 7:06 PM - Electronically signed by ??Gigi Aguilar M.D. MF: JAMIL D: ??03/06/2024 7:06 PM T: ??03/06/2024 7:06 PM Report ID: [id number] Reading Location: ??[id number] Procedure Note Gigi Aguilar MD - 03/06/2024 [...] 1 anterolisthesis of L4on L5. There is pwpp-dc-ugrjzrli L2-L3 and L4-S1 degenerative disc disease. Inferior lumbar facet osteoarthritis is present. IMPRESSION: Mild C3-C5 and moderate C5-C7 degenerative disc disease with multilevel cervical facet osteoarthritis and bilateral cervical foraminalimpingement. Mild multilevel thoracic degenerative disc disease. Qcoq-hg-bkedmjds L2-L3 and L4-S1 degenerative disc disease with grade 1 anterolisthesis of L4 on L5 and inferior lumbar facet osteoarthritis. THIS IS AN ELECTRONICALLY VERIFIED FINAL REPORT 03/06/2024 7:06 PM - Electronically signed by Gigi Aguilar M.D. MF: JAMIL Report ID: [id number] Reading Location: [place] [address] Nabila King MD IMG XR PROCEDURES Final [...] anterolisthesis of L4 on L5. ??There is kjps-zw-nqwmfioy L2-L3 and L4-S1 degenerative disc disease. ?? Inferior lumbar facet osteoarthritis is present. IMPRESSION: Mild C3-C5 and moderate C5-C7 degenerative disc disease with multilevel cervical facet osteoarthritis and bilateral cervical foraminal impingement. Mild multilevel thoracic degenerative disc disease. Rnvk-oq-irpaxeou L2-L3 and L4-S1 degenerative disc disease with grade 1 anterolisthesis of L4 on L5 and inferior lumbar facet osteoarthritis. THIS IS AN ELECTRONICALLY VERIFIED FINAL REPORT 03/06/2024 7:06 PM - Electronically signed by ??Gigi Aguilar M.D. MF: JAMIL D: ??03/06/2024 7:06 PM T: ??03/06/2024 7:06 PM Report ID: [id number] Reading Location: ??[id number] Procedure Note Gigi Aguilar MD - 03/06/2024 [...] 1 anterolisthesis of L4on L5. There is tdeh-ua-gijtftjz L2-L3 and L4-S1 degenerative disc disease. Inferior lumbar facet osteoarthritis is present. IMPRESSION: Mild C3-C5 and moderate C5-C7 degenerative disc disease with multilevel cervical facet osteoarthritis and bilateral cervical foraminalimpingement. Mild multilevel thoracic degenerative disc disease. Kuec-ig-damsgras L2-L3 and L4-S1 degenerative disc disease with grade 1 anterolisthesis of L4 on L5 and inferior lumbar facet osteoarthritis. THIS IS AN ELECTRONICALLY VERIFIED FINAL REPORT 03/06/2024 7:06 PM - Electronically signed by Gigi Aguilar M.D. MF: JAMIL Report ID: [id number] Reading Location: [place] [address] Nabila King MD IMG XR PROCEDURES Final Re sult documented in this encounter Visit Diagnoses Diagnosis Cervical radiculopathy Brachial neuritis or radiculitis nos Thoracic radiculopathy Thoracic or lumbosacral neuritis or radiculitis, unspecified documented in this encounter Care Teams Brineyard Supervisor Relationship Specialty Start Date End Date Nabila King MD [address] [place] [address] [facility] [address] [place] [address] PCP - General Internal Medicine 12/16/20 Christine Kendall MD Surgeon Ophthalmology 12/13/20 Sita Magana MD [address] [facility] [address] [place] [address] Consulting Physician Internal Medicine 12/13/20 Regulo Pandey MD [address] [facility] [address] [place] [address] Referring Physician Cardiovascular Disease 12/16/20 Gigi Méndez MD [address] [facility] [address] [place] [address] Referring Physician Cardiology 02/18/21 Bc Martinez MD [address] [place] [address] Referring Physician Cardiology 08/22/23 Martin Correa MD [address] [place] [address] Consulting Physician Cardiothoracic Surgery 08/22/23 documented as of this encounter
--- OUTSIDE RECORDS SUMMARY | 2024-08-09 17:46 | XMS_ITS | Encounter Summary ---
Author Organization [facility] Healthcare Address [address] [place] [address] Care Team Providers Care Crew Chief Name Role Phone Christine Kendall MD Unavailable [phone] Sita Magana MD Unavailable [phone] Nabila King MD Primary Care Provider + [phone] Regulo Pandey MD Unavailable Gigi Méndez MD Unavailable [phone] Bc Martinez MD Unavailable [phone] Martin Correa MD Unavailable [phone] Reason for Visit * Reason Onset Date Comments Insurance 04/16/2024 MRI 04/16/2024 Encounter Details Date Type Department Care Team (Late st Contact Info) Description 04/16/2024 Telephone [facility] Medical Group [facility] [address] [place] [id number] Nabila King MD [address] [place] [address] Insurance; MRI Social History Tobacco Use Types Packs/Day [...] on file 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 She voiced understanding. She states she is scheduled for MRI Cervical Spine w wo contrast & MRI Thoracic Spine w wo contrast on 06-10-24 at [facility] & might as well do the MRI Face w wo contrast now since it's approved. New order/precert info was faxed to [facility]. Joseline from [facility] Scheduling Dept has all #3 correct MRI order's. Pt did get all #3 MRI's scheduled for 06-10-24 at [facility]. Pt was scheduled to see Dr. Nabila King on 05-14-24,but we ended up rescheduling. This way all MRI results will be back & pt said she was to do a lab before this appt & this way we will have lab results too. Pt is now scheduled to see JUNIOR ENGINEER Imelda Gaytan on 06-13-24. Dr. Nabila King didn't have any openings on her schedule,but she will be here on the day pt comes in. * Telephone Encounter - Marianna Dumont - 04/26/2024 3:54 PM CDT Will make sure MRI Thoracic Spine w wo contrast & MRI Lumbar w wo contrast get scheduled & will make sure we get MRI reports. * Telephone Encounter - Marianna Dumont. - 04/26/2024 2:02 PM CDT Pt aware MRI Thoracic Spine w wo contrast & MRI Lumbar Spine w wo contrast have been approved now. For some reason MRI Face w wo contrast didn't go through appeal,but we have started an expeditedappeal. She voiced understanding. She states at this time she going to decline MRI Face. She states she is seeing her Coal Sampler-Dr. Martin in [place], [place] on Monday05-06-24 & he is doing x-ray's. She is aware of Dr. Nabila King telephone message below already & states she has been doingmyofascial therapy with the massage therapist at her Chiropractor's () office in [place], [place]. She states she wants to hold off for now on the Amb Referral to Physical Therapy-Noelle Brumfield because first she has to check with her insurance,she wants to do her MRI of thoracic & lumbar first & see Dr. Nabila King at her already scheduled appt on 05-14-24. She states she will let us know,if she changes her mind & wants the amb referral. Tried to schedule MRI's for pt at [facility]' MRI scheduling #[phone],but they needed the new order's with added dx's/auth.# faxed over to them first at . Once they get the order's since pt has pacemaker they have to email the MRI Dept,so they can give appt & then [facility] will contact pt to set up MRI's. They do know pt cannot do 05-13-24 & 05-14-24. She voiced understanding. New MRI order's with added dx's/auth.# has been faxed to [facility]' ( ). . * Telephone Encounter - Vicenta Melo RN - 04/19/2024 2:19 PM CDT Images from the original note were not included. Nabila King MD to [facility] Im/Fm Staff Pool 04/19/24 2:10 PM TELL HER I THINK SHE WOULD REALLY BENEFIT FROM physical therapy with a very special myofascial therapist down in [place] = Dr. Elkins, [facility], PhD. [place] [facility] [phone] Called patient and notified her of above message from [facility]. Patient voiced understanding and was given the information on Dr. Elkins and her phone number. Patient said she will let us know her decision. * Telephone Encounter - Marianna Dumont - 04/18/2024 2:33 PM CDT Pt still wants to proceed with MRI Face w wo contrast, MRI Thoracic Spine w wo contrast & MRI Lumbar Spine w wo contrast. Expedited Appeal started. All pertaining records including executive personal assistant records & MRI Cervical Spine w wo contrast reporthas been faxed to pt.'s health plan. Turn around time is 24hrs. If, they don't consider it expedited then it will be standard & that will take some time. Pt aware of this & knows once I hear back from her insurance company I will give her a call. She voiced understanding. * Telephone Encounter - Vicenta Melo RN - 04/18/2024 12:05 PM CDT TOKMS: Patient called back. She was notified of the previous message and voiced understanding. Patient declined referrals to pain management and PT. She was concerned to do PT due to the C-5 fracture. Patient wants to see what happens with the other MRI's that are ordered and she was notified that they are denied by insurance according to previous message. Patient has appt with [facility] on 05/14 and said she will just discuss further with her. Marianna, office staff aware of patient's call and will f/u with patient. Any recommendations? Please advise * Telephone Encounter - Vicenta Melo RN - 04/18/2024 10:38 AM CDT Images from the original note were not included. April 18, 2024 Nabila King MD to [facility] Im/Fm Staff Pool 04/18/24 10:11 AM Inform her she has no spinal stenosis thank Goodness She has a really bad foraminal stenosis. She would benefit from physical therapy and she would benefit from pain management. I would recommend [facility] for pain management. [facility] physical therapy for physical therapy is available here in the building, I do not know what is easiest for her or closest to her home but her look and inform us but would workup as for her. Dr. Nabila King No answer and unable to leave a message. * Telephone Encounter - Marianna Dumont - 04/17/2024 3:38 PM CDT MRI Cervical results are hanging on your door to review. MRI Face,Thoracic & Lumbar Spine all denied by insurance. Please advise. Pt aware of these denial's. Please let pt know what the next step is. CBN: #[phone] * Telephone Encounter - Elizabeth Whitaker - 04/16/2024 12:57 PM CDT Patient calling asking for Marianna, states that she called [facility] on her MRI's. States they put a schwab on it. Waiting to hear back from insurance. [phone] documented in this encounter Plan of Treatment Not on file documented as of this encounter Visit Diagnoses Not on filedocumented in this encounter Care Teams Crew Chief Relationship Specialty Start Date End Date Nabila King MD [address] [place] [address] [address] [place] [address] PCP - General Internal Medicine 12/16/20 Christine Kendall MD Surgeon Ophthalmology 12/13/20 Sita Magana MD [address] [place] [address] [address] [place] [address] Consulting Physician Internal Medicine 12/13/20 Regulo Pandey MD [address] [place] [address] [address] [place] [address] Referring Physician Cardiovascular Disease 12/16/20 Gigi Méndez MD [address] [place] [address] [address] [place] [address] Referring Physician Cardiology 02/18/21 Bc Martinez MD [address] [place] [address] Referring Physician Cardiology 08/22/23 Martin Correa MD [address] [place] [address] Consulting Physician Cardiothoracic Surgery 08/22/23 documented as of this encounter
--- OUTSIDE RECORDS SUMMARY | 2024-08-09 17:46 | XMS_ITS | Clinical Summary ---
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 Gender Identity Not on file Sexual Orientation Not on file Plan of Treatment Health Maintenance Due Date Last Done Comments DEXA Bone Density 1935 Hepatitis C Virus (HCV) Screening 1935 TdaP Immunization 1935 Respiratory Syncytial Virus (RSV) Immunization (Adult) (1 - 1-dose 75+ series) 11/12/2011 Pneumococcal Immunization (50+ years) (2 of 2 - PPSV23 or PCV20) 05/08/2017 05/08/2016 Influenza Immunization (#1) 04/21/202404/21, 06/17/2019, 05/03/2018, Additional history exists SARS-COV-2 Immunization (2023- season) 2024 Zoster Immunization Completed 05/03/2018, 8 Hepatitis B Immunization Aged Out No longer eligible based on patient's age to complete this topic Meningococcal Immunization (ACWY) Aged Out No longer eligible based on patient's age to complete this topic Rotavirus Immunization Aged Out No lo nger eligible based on patient's age to complete this topic
--- OUTSIDE RECORDS SUMMARY | 2024-08-09 17:46 | XMS_ITS | Encounter Summary ---
Author Organization [facility] Healthcare Address [address] [place] [address] Care Team Providers Care Engineering Technician Name Role Phone Christine Kendall MD Unavailable [phone] Sita Magana MD Unavailable [phone] Nabila King MD Primary Care Provider + [phone] Regulo Pandey MD Unavailable Gigi Méndez MD Unavailable [phone] Bc Martinez MD Unavailable [phone] Martin Correa MD Unavailable [phone] [facility], [facility] Unavailable Reason for Visit * Reason Comments New Patient Neck Pain Dizziness * Consultation (Urgent) - Authorized Specialty Diagnoses / Procedures Referred By Contac t Referred To Contact Neurology Diagnoses Pain Numbness Dizziness Chronic bilateral low back pain, unspecified whether sciatica present Chronic neck pain Neuroforaminal stenosis of lumbar spine Nabila King MD [address] [place] [address] Phone: tel: fax: Gildardo Gonzáles Si, MD [facility] [facility] [place] [address] Phone: tel: fax: Referral ID Status Reason Start Date Expiration Date Visits Requested Visits Authorized [id number] Authorized Specialty Services Required 08/03/2025 12 12 Encounter Details Date Type Department Care Team (Late st Contact Info) Description 07/09/2024 10:30 AM FINANCIAL PROFESSIONAL Office Visit [facility] Neurology [address] [facility] [address] [place] [address] Gildardo Gonzáles Si, MD [facility] [address] [place] [address] Pain; Numbness; Dizziness; Chronic bilateral low back pain, unspecified whether sciatica present; Chronic neck pain; Neuroforaminal stenosis of lumbar spine Social History Tobacco Use Types Packs/Day Years [...] on file Legal 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 Gender Identity Not on file Sexual Orientation Not on file 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 Not on file documented as of this encounter Last Filed Vital Signs Vital Sign Reading Time Taken Comments Blood Pressure 140/70 07/09/2024 10:18 AM FINANCIAL PROFESSIONAL Pulse 80 07/09/2024 10:18 AM FINANCIAL PROFESSIONAL Temperature - - Respiratory Rate - - Oxygen Saturation - - Inhaled Oxygen Concentration - - Weight 55.3 kg (122 lb) 07/09/2024 10:18 AM FINANCIAL PROFESSIONAL Height 162.6 cm (5' 4 ) 07/09/2024 10:18 AM FINANCIAL PROFESSIONAL Body Mass Index 20.94 07/09/2024 10:18 AM FINANCIAL PROFESSIONAL documented in this encounter Progress Notes * Gildardo Gonzáles Si, MD - 07/09/2024 10:30 AM CST Patient ID: Lisa Conn is a 88 y.o. female Lisa Conn is being seen as a new consult at the request of Nabila King MD for neck pain, numbness and dizziness. History of Present Illness: 88 year old woman with history of CAD, CHF, s/p PPM, HLD, RUDY, hypothyroidism presents with neck pain and numbness. Pertinent Medical Issues: 1.5 yr ago, he started feel itchiness in the back of her head on the left side. She went to seen puppet master and got clobetasol cream which she did not use often. Later her symptoms got more prominence with tingling sensation and shock- like pain over the left side of the neck up to the back of the head with radicular pain and numbness on the left intermittently. The pain are intermittent and itcould trigger on certain neck position. She could have intermittent tightness in the neck muscle. She does not like to take Neurontin due to side effect. Her pain is tolerable level at this point. She was doing physical therapy. She had 1 episode of numbness over right shoulder down with total weakness over right arm. And the symptoms subsided. She could have off balance at times she has low back pain with intermittent radicular pain on upper legs. When she hyperextends her neck she feels dizziness. Mostly her neck pain and tingling are worse in the daytime and minimal symptoms in the morning. She saw dentist for dental issues and planned on bone graft. Recent MRI of facial showed questionable abscess in the anterior mandible area. She has dental follow-up appointment today. Review of Systems As above. All other systems were reviewed and found to be normal or non-contributory. Past Medical History: Diagnosis Date History of [...] of eye 1999 Both eyes Thyroid disease Past Surgical History: Procedure Laterality Date ABLATION OF AFIB FLUTTER 02/18/2021 [facility] CARDIAC PACEMAKER PLACEMENT 10/2021 COLONOSCOPY 01/08/2010 (+) Dr. Queen, single tubular adenoma rectum DILATION AND CURETTAGE, DIAGNOSTIC / THERAPEUTIC 05/15/2013 (-) Dr. Wagner, benign endocervical polyp GLAUCOMA SURGERY Bilateral Filtering Bleb OTHER SURGICAL HISTORY Valvular Heart Disease 2xAR, Ant MVP: OTHER SURGICAL HISTORY uterine suspension surgery Family History Problem Relation Age of Onset Other Father Pacemaker; Osteoporosis Father Macular degeneration Father Osteoporosis Mother Family history of osteoporosis - (Added by TW Conv) Osteoporosis Daughter Family history of osteoporosis - (Added by TW Conv) Scoliosis Sister Glaucoma Sister Retinal detachment Sister Social History Tobacco Use Smoking status: Never Smokeless tobacco: Never Substance and Sexual Activity Drug use: No Sexual activity: Not Currently Partners: Male Alcohol Use: Not At Risk (02/15/2021) Received from [facility], [facility] AUDIT-C Frequency of Alcohol Consumption: Never Average Number of Drinks: Not on file Frequency of Binge Drinking: Not on file Allergies Allergen Reactions Sulfa (Sulfonamide Antibiotics) Unknown Clarithromycin Hives Mastisol Adhesive [Gum Tapjaw-Rhfcwg-Sztl-Alcohol] Hives and Rash Pt reports this is when EKG lead adhesive patches are used. 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 Current Outpatient Medications Medication Sig Dispense Refill acetaminophen (TYLENOL) 500 mg tablet Take 1 tablet (500 mg total) by mouth every 6 (six) hours as needed for pain apixaban (ELIQUIS) 2.5 mg tablet 1 tablet (2.5 mg total) 2 (two) times a day cholecalciferol (VITAMIN D-3) 50,000 unit capsule Take 1 capsule (50,000 Units total) by mouth oncea week 60 capsule 0 dilTIAZem (CARDIZEM) 30 mg tablet doxycycline hyclate (VIBRAMYCIN) 50 mg capsule Take [...] daily as needed for constipation 200 tablet2 dilTIAZem (CARDIZEM) 60 mg tablet Take 0.5 tablets (30 mg total) by mouth 3 (three) times a day (Patient not taking: Reported on 07/09/2024) 135 tablet 2 No current facility-administered medications for this visit. Physical Exam Vitals BP 140/70 (BP Location: Left arm, Patient Position: Sitting) Pulse 80 Ht 162.6 cm (5' 4 ) Wt 55.3 kg (122 lb) BMI 20.94 kg/m?? Neurological exam: Constitutional: Appears well and in no acute distress Mental Status: Alert and oriented times three, Speech is fluent. Normal comprehension, Good attention, no extinction/neglect, Fund of knowledge is appropriate Cranial Nerves: pupils are equal, round, and sluggish and reactive to light, Extraocular movements are intact, face symmetric, facial sensation intact, palate rise symmetric, TPZ symmetric, tongue midline, no atrophy or fasciculations Motor: Normal bulk and tone noted. No pronator drift. Strength: 5/5 throughout in both proximal and distal muscles with mild giveaway weakness Sensory: Intact to LT, temperature and prop bilat Reflexes: 2/4 throughout Gait: Intact with good heel, toe and tandem walking Coordination: Good FNF, No obvious invol mvmts Romberg's negative 05/2024 MRI C spine w/wo ([facility]): 1. Severe bilateral neural foraminal stenosis at C3/C4, C5/C6 and C6/C7. Moderate bilateral foraminal stenosis at C4/C5. 2. No significant cervical central canal stenosis or cord signal abnormality. 3. No acute osseous abnormality. Mild chronic compression fracture of C5 with depression of the inferior endplate and 10% loss of height, unchanged. MRI facial w/wo ([facility]): 1. Nonspecific 1.6 x 0.3 x 1.3 cm peripherally enhancing fluid collection along the anterior midline mandibular body suspicious for an abscess in the appropriate clinical setting. No adjacent cortical destruction or bone edema. 2. Mild mucosal thickening of the inferior left maxillary sinus. MRI thoracic spine w/wo: ([facility]) 1. Mild Modic type I degenerative changes at T7/T8, left. No acute osseous abnormality 2. 1.1 cm perineural cyst within the right neural foramen at T11/T12 3. Very small broad-based disc protrusions at the T6/T7 and T7/T8 causing minimal effacement of ventral thecal sac. No significant thoracic central canal stenosis or cord signal normality. MRI Lumbar spoine w/wo: ([facility]) 1. Moderate to severe neuroforaminal stenosis on the left at L5/S1 due to disc space narrowing, disc bulging and facet arthropathy. 2. No significant lumbar central canal stenosis. 3. Grade 1 anterolisthesis at L4/L5. No acute osseous abnormality. 4. 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 No abnormal enhancement. Assessments and Plan 88 year old woman with history of CAD, CHF, s/p PPM, HLD, RUDY, hypothyroidism presents with chronicLBP and cervicalgia with cervical radiculopathy in setting of multilevel DJD for moderate to severeforaminal stenosis. Neuro exam is overall unremarkable. She voiced mild droopy eyelid compared to before and likely from senile ptosis but no significant finding on exam. Hand Turner on imaging results and etiology of her cervical radiculopathy and lumbar radiculopathy. 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 She would like to hold off neuropathic analgesic in light of side effect and also the radicular pain are at tolerable level. Recommend to try alpha lipoic acid 600 mg daily as neuropathic analgesic. Baclofen 5 mg prn for muscle spasm once it flare up. C/w PT or HEP from PT cervicalgia and LBP Follow up with dentist for possible abscess at anterior mandibular area found on MRI of face. Gildardo Gonzáles MD Neurology Cc: Nabila King MD My total encounter time on 07/09/2024 was 60 minutes which was spent in the activities documented in the note. This includes time spent prior to the visit and after the visit in direct care of the patient. This time does not include time spent in any separately reportable services. NCIAL PROFESSIONAL documented in this encounter Plan of Treatment Not on file documented as of this encounter Visit Diagnoses Diagnosis Pain Generalized pain Numbness Disturbance of skin sensation Dizziness Dizziness and giddiness Chronic bilateral low back pain, unspecified whether sciatica present Chronic neck pain Cervicalgia Neuroforaminal stenosis of lumbar spine documented in this encounter Historical Medications * This list may reflect changes made after this encounter. Medication Sig Dispense Quantity Refills Last Filled Start D ate End Date dilTIAZem (CARDIZEM) 30 mg tablet 05/27/2024 added in this encounter Orders Outpatient Referral Count Last Ordered Date Fir st Ordered Date AMB REFERRAL TO NEUROLOGY 1 07/09/2024 documented in this encounter Care Teams Engineering Technician Relationship Specialty Start Date End Date Nabila King MD [address] [place] [address] [address] [place] [address] PCP - General Internal Medicine 12/16/20 Christine Kendall MD Surgeon Ophthalmology 12/13/20 Sita Magana MD [address] [place] [address] [address] [place] [address] Consulting Physician Internal Medicine 12/13/20 Regulo Pandey MD [address] [place] [address] [address] [place] [address] Referring Physician Cardiovascular Disease 12/16/20 Gigi Méndez MD [address] [place] [address] [address] [place] [address] Referring Physician Cardiology 02/18/21 Bc Martinez MD [address] [place] [address] Referring Physician Cardiology 08/22/23 Martin Correa MD [address] [place] [address] Consulting Physician Cardiothoracic Surgery 08/22/23 Gildardo Gonzá[place] [address] [place] [address] [address] [place] [address] Consulting Physician Neurology 07/09/24 documented as of this encounter
--- OUTSIDE RECORDS SUMMARY | 2024-08-09 17:46 | XMS_ITS | CONTINUITY OF CARE DOCUMENT ---
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 Damaris Sprague Aortic insufficiency, moderate active Jeromy Marcus Tricuspid regurgitation, moderate-severe active 09/10 Jossie Marcus Atrial fibrillation active Jossie Marcus Sinus bradycardia active Jossie Marcus Alan's thyroiditis active Jossie Marcus Glaucoma active Jossie Marcus Pulmonary hypertension active Jossie Marcus Dizziness active Jossie Marcus Fatigue active Taebony Marcus Sick sinus syndrome active Jossie Marcus Near syncope active Dario Ahmedzai Ventricular tachycardia active Dario Ahmedza i Chest pain active Dario Ahmedzai Shortness of breath active Dario Ahmedzai Insomnia active Dario Ahmedzai Mitral regurgitation, mild active Bc vidales MD ENCOUNTERS Date Type Provider Location Encounter Diag nosis - 1 In-person encounter Office Visit Bc Martinez MD [facility] 9 - 9 In-person encounter Office Visit Bc Martinez MD [facility] 1 - 4 In-person encounter Office Visit Bc Martinez MD [facility] Mitral regurgitation, mild 3 - 3 In-person encounter Office Visit Bc Martinez MD [facility] Shortness of breathInsomnia 3 - 3 In-person encounter Office Visit Bc Martinez MD [facility] 0 - 0 In-person encounter Office Visit Bc Martinez MD [facility] Near syncopeVentricular tachycardiaChest pain 0 - 2 In-person encounter Office Visit Bc Martinez MD [facility] 5 - 8 In-person encounter Office Visit Bc Martinez MD [facility] 6 - 0 In-person encounter Office Visit Bc Martinez MD [facility] 3 - 5 In-person encounter Office Visit Bc Martinez MD [facility] 5 - 5 In-person encounter Office Visit Bc Martinez MD [facility] Office 8 - 8 In-person encounter Office Visit Bc Martinez MD [facility] Office 8 - 1 In-person encounter Office Visit Bc Martinez MD [facility] 1 - 1 In-person encounter Office Visit Bc Martinez MD [facility] Aortic insufficiency, moderateTricuspid regurgitation, moderate-severeAtrial fibrillationSinus bradycardiaHashimoto's thyroiditisGlaucomaPulmonary hypertensionDizzinessFatigueSick sinus syndrome VITAL SIGNS Date Observation Value Provider Body Mass Index (Ratio) 21.45 kg/m2 Remy Martinez MD blood pressure, cuff size regular Ke rri Gruenenfelder blood pressure, diastolic 80 mm[Hg] Ke rri Gruenenfelder blood pressure, systolic 146 mm[Hg] Lisbet ri Americoueneshelli oxygen saturation, oximetry 96 % Shanna Graaronkrystal respiratory rate E&M 12 /min Shanna G alexisenenfeldphilippe pulse rate 80 /min Shanna Ushajuancarlos [facility] weight E&M 125 [lb_av] Shanna Ushanfe [facility] height E&M 64 [in_i] Shanna Ushanfjuan [facility] Body Mass Index (Ratio) 20.94 kg/m2 Remy Martinez MD blood pressure, cuff size regular Ke rri Gruenenfelder blood pressure, diastolic 80 mm[Hg] Ke rri Grueneashvinelder blood pressure, systolic 166 mm[Hg] Lisbet ri Americoaarongideonashvineldphilippe oxygen saturation, oximetry 98 % Shanna Noblekrystal respiratory rate E&M 12 /min Shanna G yovana pulse rate 81 /min Shanna Tamiajuan [facility] weight E&M 122 [lb_av] Shanna Nobleneashvine [facility] height E&M 64 [in_i] Shanna Amerciosaraijuan [facility] Body Mass Index (Ratio) 20.94 kg/m2 Remy Martinez MD blood pressure, cuff size regular [facility] Andrew blood pressure, diastolic 85 mm[Hg] [facility] Andrew blood pressure, systolic 122 mm[Hg] Maximino [facility] pulse rate 80 /min [facility] oxygen saturation, oximetry 98 % [facility] respiratory rate E&M 15 /min Cristina hunter weight E&M 122 [lb_av] Cristina Lawrence height E&M 64 [in_i] [facility] Body Mass Index (Ratio) 21.11 kg/m2 Dario zhang blood pressure, cuff size regular Ke rri Americouenelolis blood pressure, diastolic 80 mm[Hg] Luisito rri Americouenenfsusan blood pressure, systolic 132 mm[Hg] Lisbet Baker oxygen saturation, oximetry 98 % Shanna Samuel respiratory rate E&M 12 /min Shanna yen pulse rate 81 /min Shanna Greer [facility] weight E&M 123 [lb_av] Shanna Percy [facility] height E&M 64 [in_i] Shanna Percy [facility] Body Mass Index (Ratio) 20.94 kg/m2 Dario zhang respiratory rate E&M 19 /min Ivanna rodarte blood pressure, diastolic 82 mm[Hg] Jaimie Baldwin blood pressure, systolic 145 mm[Hg] Reyna Baldwin oxygen saturation, oximetry 98 % Ivanna Baldwin pulse rate 80 /min Ivanna Baldwin weight E&M 122 [lb_av] Ivanna Baldwin height E&M 64 [in_i] Ivanna Baldwin blood pressure, cuff size large An raymond Baldwin Body Mass Index (Ratio) 21.11 kg/m2 Dario Morocho blood pressure, cuff size regular Ke rri Americoueneshelli blood pressure, diastolic 88 mm[Hg] Ke rri Gruenenfelder blood pressure, systolic 164 mm[Hg] Ker ri Gruenenfelder oxygen saturation, oximetry 97 % Shanna Gruenenfelder respiratory rate E&M 14 /min Shanna G ruenenfelder pulse rate 81 /min Shanna Gruenenfe lder weight E&M 123 [lb_av] Shanna Gruenenfe lder height E&M 64 [in_i] Shanna Gruenenfe er Body Mass Index (Ratio) 20.94 kg/m2 Dario Clarkjoie blood pressure, cuff size regular Ke rri Gruenenfelder blood pressure, diastolic 82 mm[Hg] Ke rri Gruenenfelder blood pressure, systolic 135 mm[Hg] Lisbet ri Gruenenfelder oxygen saturation, oximetry 96 % Shanna Gruenenfelder respiratory rate E&M 14 /min Shanna G ruenenfelder pulse rate 80 /min Shanna Gruenenfe er weight E&M 122 [lb_av] Shanna Gruenenfe er height E&M 64 [in_i] Shanna Gruenenfe er Body Mass Index (Ratio) 21.63 kg/m2 Remy Martinez MD blood pressure, cuff size regular Fl karl Caruso blood pressure, diastolic 82 mm[Hg] Mi karl Ada blood pressure, systolic 140 mm[Hg] [facility] stephanie Ada oxygen saturation, oximetry 98 % Vanessa Caruso respiratory rate E&M 16 /min Carmen Caruso pulse rate 79 /min Vanessa santiago weight E&M 126 [lb_av] Vanessa santiago height E&M 64 [in_i] Vanessa santiago Body Mass Index (Ratio) 21.11 kg/m2 Carly joel Dustin blood pressure, diastolic 90 mm[Hg] Katina [facility] blood pressure, systolic 140 mm[Hg] Ijeoma [facility]Logic blood pressure, diastolic 90 mm[Hg] Sa ra Rocha blood pressure, systolic 140 mm[Hg] Ross a Rocha oxygen saturation, oximetry 98 % Andreina Rocha respiratory rate E&M 16 /min Andreina Si ms pulse rate 80 /min Andreina Rocha weight E&M 123 [lb_av] Andreina Rocha blood pressure, cuff size regular Sa ra Rocha height E&M 64 [in_i] Andreina Rocha Body Mass Index (Ratio) 20.77 kg/m2 Darion Mckenzie blood pressure, cuff size regular Ke rri Gruenenfelder blood pressure, diastolic 86 mm[Hg] Ke rri Gruenenfelder blood pressure, systolic 182 mm[Hg] Ker ri Gruenenfelder oxygen saturation, oximetry 99 % Shanna Ushanfelder respiratory rate E&M 14 /min Shanna G alexisenenfelder pulse rate 71 /min Shanna Gruenenfe lder weight E&M 121 [lb_av] Shanna Gruenenfe lder height E&M 64 [in_i] Shanna Gruenenfe lder Body Mass Index (Ratio) 21.28 kg/m2 Remy Martinez MD blood pressure, cuff size regular Ke rri Gruenenfelder blood pressure, diastolic 80 mm[Hg] Ke rri Gruenenfelder blood pressure, systolic 120 mm[Hg] Lisbet Baker oxygen saturation, oximetry 98 % Shanna Cantrellelder respiratory rate E&M 14 /min Shanna petersonnfelder pulse rate 66 /min Shanna Greer [facility] weight E&M 124 [lb_av] Shanna Greer er height E&M 64 [in_i] Shanna Greer [facility] Body Mass Index (Ratio) 21.28 kg/m2 Taew on blood pressure, diastolic, standing 76 mm [Hg] [place]on blood pressure, systolic, standing 192 mm [Hg] Taon Amrit blood pressure, cuff size regular Ke rri Grueneashvinelder blood pressure, diastolic 80 mm[Hg] Ke rri Americoueneashvineld blood pressure, systolic 132 mm[Hg] Lisbet Summers oxygen saturation, oximetry 98 % Shanna Cantrellformerly [facility] respiratory rate E&M 14 /min Shanna moyerformerly [facility] pulse rate 80 /min Shanna Greer [facility] weight E&M 124 [lb_av] Shanna Greer er height E&M 64 [in_i] Shanna Greer [facility] ALLERGIES Allergy Name Onset Date Reaction Criticality Status ADHESIVE TAPE Rash Blisters Blisters High Criti cality active MYCIN High Criticality active FLAGYL High Criticality active SULFA High Criticality active RESULTS Date Observation Value Provider Reference Range Interpretation Location activated partial thromboplastin time (aPTT) 33 s [facility] 24-33 prothrombin time (patient) 10.4 s [facility] 9.1-12.0 international normalized ratio (INR) 1.0 [facility] 0.9-1.2 blood culture Final report [facility] blood culture Preliminary report [facility] blood culture Preliminary report [facility] free thyroxine index 1.6 [facility] 1.2-4.9 triiodothyronine resin uptake 25 % [facility] 24-39 thyroxine, serum, total 6.2 ug/dL [facility] 4.5-12.0 thyroid stimulating hormone, serum 1.300 u[IU]/mL [facility] 0.450-4.500 activated partial thromboplastin time (aPTT) 31.0 s [facility] Units converted. See lab report for original value. hemoglobin A1C, blood, as % of total hemoglobin 5.7 % [facility] 4.8-5.6 High prothrombin time (patient) 10.3 s [facility] 9.1-12.0 international normalized ratio (INR) 1.0 [facility] 0.9-1.2 lipoprotein, beta, serum, point, quantitative, calculated 127 mg/dL [facility] 0-99 High HDL cholesterol, serum 83 mg/dL [facility] >39 triglyceride, serum, random 129 mg/dL [facility] 0-149 cholesterol, serum 232 mg/dL [facility] 100-199 High basophil count, absolute 0.0 x10E3/uL [facility] 0.0-0.2 Eosinophil Absolute Count 0.1 X10E3/UL [facility] 0.0-0.4 monocyte count, blood, automated 0.3 X10E3/UL [facility] 0.1-0.9 lymphocyte count, blood, automated 1.7 X10E3/UL [facility] 0.7-3.1 Absolute Neutrophils 4.4 X10E3/UL [facility] 1.4-7.0 basophils as percent of blood leukocytes 1 % [facility] Not Estab. eosinophils as percent of blood leukocytes 1 % [facility] Not Estab. monocytes as percent of blood leukocytes 4 % [facility] Not Estab. lymphocytes as percent of blood leukocytes 26 % [facility] Not Estab. neutrophils as percent of blood leukocytes 68 % [facility] Not Estab. platelet count 264 X10E3/UL [facility] 960-958 5715/01 /21 red blood cell distribution width 13.1 % [facility] 11.7-15.4 mean corpuscular hemoglobin concentration, RBC 32.9 G/DL [facility] 31.5-35.7 mean corpuscular hemoglobin, RBC 30.6 pg [facility] 26.6-33.0 mean corpuscular volume, RBC 93 fL [facility] 79-97 hematocrit, blood 45.0 % [facility] 34.0-46.6 hemoglobin, blood 14.8 g/dL [facility] 11.1-15.9 erythrocyte (RBC) count 4.83 X10E6/UL [facility] 3.77-5.28 leukocyte count, blood 6.5 X10E3/UL [facility] 3.4-10.8 alanine aminotransferase (SGPT), serum 22 1/L [facility] 0-32 aspartate aminotransferase (SGOT), serum 25 1/L [facility] 0-40 alkaline phosphatase, serum 76 1/L [facility] 44-121 bilirubin, serum, total 0.3 mg/dL [facility] 0.0-1.2 albumin/globulin ratio, serum 2.0 [facility] 1.2-2.2 globulin, serum 2.3 [facility] 1.5-4.5 albumin, serum 4.6 g/dL [facility] 3.6-4.6 protein, total, serum 6.9 g/dL [facility] 6.0-8.5 calcium, serum 9.8 mg/dL [facility] 8.7-10.3 carbon dioxide, venous blood 24 mmol/L [facility] 20-29 chloride, serum 99 mmol/L [facility] 96-106 potassium, serum 4.0 mmol/L [facility] 3.5-5.2 sodium, serum 139 mmol/L [facility] 263-176 8550/01 /21 urea nitrogen/creatinine ratio, serum 23 [facility] 12-28 creatinine, serum 0.80 mg/dL [facility] 0.57-1.00 urea nitrogen, blood 18 mg/dL [facility] 8-27 blood glucose, random 176 mg/dL [facility] 70-99 High alanine aminotransferase (SGPT), serum 37 1/L [facility] 0-32 High aspartate aminotransferase (SGOT), serum 31 1/L [facility] 0-40 alkaline phosphatase, serum 79 1/L [facility] 44-121 bilirubin, serum, total 0.6 mg/dL [facility] 0.0-1.2 albumin/globulin ratio, serum 2.1 [facility] 1.2-2.2 globulin, serum 2.2 [facility] 1.5-4.5 albumin, serum 4.6 g/dL [facility] 3.6-4.6 protein, total, serum 6.8 g/dL [facility] 6.0-8.5 calcium, serum 9.6 mg/dL [facility] 8.7-10.3 carbon dioxide, venous blood 24 mmol/L [facility] 20-29 chloride, serum 102 mmol/L [facility] 96-106 potassium, serum 5.0 mmol/L [facility] 3.5-5.2 sodium, serum 141 mmol/L [facility] 024-748 4933/06 /15 urea nitrogen/creatinine ratio, serum 17 [facility] 12-28 creatinine, serum 0.84 mg/dL [facility] 0.57-1.00 urea nitrogen, blood 14 mg/dL [facility] 8-27 blood glucose, random 86 mg/dL [facility] 65-99 basophil count, absolute 0.1 x10E3/uL [facility] 0.0-0.2 Eosinophil Absolute Count 0.1 X10E3/UL [facility] 0.0-0.4 monocyte count, blood, automated 0.5 X10E3/UL [facility] 0.1-0.9 lymphocyte count, blood, automated 2.3 X10E3/UL [facility] 0.7-3.1 Absolute Neutrophils 2.5 X10E3/UL [facility] 1.4-7.0 basophils as percent of blood leukocytes 1 % [facility] Not Estab. eosinophils as percent of blood leukocytes 2 % [facility] Not Estab. monocytes as percent of blood leukocytes 10 % [facility] Not Estab. lymphocytes as percent of blood leukocytes 42 % [facility] Not Estab. neutrophils as percent of blood leukocytes 45 % [facility] Not Estab. platelet count 320 X10E3/UL [facility] 621-122 7792/06 /15 red blood cell distribution width 12.8 % [facility] 11.7-15.4 mean corpuscular hemoglobin concentration, RBC 32.6 G/DL [facility] 31.5-35.7 mean corpuscular hemoglobin, RBC 30.4 pg [facility] 26.6-33.0 mean corpuscular volume, RBC 93 fL [facility] 79-97 hematocrit, blood 47.2 % [facility] 34.0-46.6 High hemoglobin, blood 15.4 g/dL [facility] 11.1-15.9 erythrocyte (RBC) count 5.07 X10E6/UL [facility] 3.77-5.28 leukocyte count, blood 5.5 X10E3/UL [facility] 3.4-10.8 ferritin, serum 145 ng/mL [facility] 15-150 free thyroxine index 2.2 [facility] 1.2-4.9 triiodothyronine resin uptake 28 % [facility] 24-39 thyroxine, serum, total 7.8 ug/dL [facility] 4.5-12.0 thyroid stimulating hormone, serum 2.550 u[IU]/mL [facility] 0.450-4.500 iron saturation percent, serum 19 % [facility] 15-55 iron, serum 58 ug/dL [facility] 27-139 iron binding capacity, unsaturated 243 ug/dL [facility] 541-491 6672/03 /16 iron binding capacity, total 301 ug/dL [facility] 347-927 4956/03 /16 alanine aminotransferase (SGPT), serum 24 1/L [facility] 0-32 aspartate aminotransferase (SGOT), serum 27 1/L [facility] 0-40 alkaline phosphatase, serum 70 1/L [facility] 44-121 bilirubin, serum, total 0.3 mg/dL [facility] 0.0-1.2 albumin/globulin ratio, serum 2.1 [facility] 1.2-2.2 globulin, serum 2.1 [facility] 1.5-4.5 albumin, serum 4.4 g/dL [facility] 3.6-4.6 protein, total, serum 6.5 g/dL [facility] 6.0-8.5 calcium, serum 9.4 mg/dL [facility] 8.7-10.3 carbon dioxide, venous blood 24 mmol/L [facility] 20-29 chloride, serum 101 mmol/L [facility] 96-106 potassium, serum 4.2 mmol/L [facility] 3.5-5.2 sodium, serum 142 mmol/L [facility] 926-986 1489/03 /16 urea nitrogen/creatinine ratio, serum 20 [facility] 12-28 creatinine, serum 0.71 mg/dL [facility] 0.57-1.00 urea nitrogen, blood 14 mg/dL [facility] 8-27 blood glucose, random 130 mg/dL [facility] 65-99 High activated partial thromboplastin time (aPTT) 30 s [facility] 24-33 prothrombin time (patient) 10.2 s [facility] 9.1-12.0 international normalized ratio (INR) 0.9 [facility] 0.9-1.2 basophil count, absolute 0.0 x10E3/uL [facility] 0.0-0.2 Eosinophil Absolute Count 0.1 X10E3/UL [facility] 0.0-0.4 monocyte count, blood, automated 0.4 X10E3/UL [facility] 0.1-0.9 lymphocyte count, blood, automated 1.8 X10E3/UL [facility] 0.7-3.1 Absolute Neutrophils 3.4 X10E3/UL [facility] 1.4-7.0 basophils as percent of blood leukocytes 1 % [facility] Not Estab. eosinophils as percent of blood leukocytes 1 % [facility] Not Estab. monocytes as percent of blood leukocytes 7 % [facility] Not Estab. lymphocytes as percent of blood leukocytes 32 % [facility] Not Estab. neutrophils as percent of blood leukocytes 59 % [facility] Not Estab. platelet count 256 X10E3/UL [facility] 750-404 1066/03 /16 red blood cell distribution width 13.0 % [facility] 11.7-15.4 mean corpuscular hemoglobin concentration, RBC 32.4 G/DL [facility] 31.5-35.7 mean corpuscular hemoglobin, RBC 30.4 pg [facility] 26.6-33.0 mean corpuscular volume, RBC 94 fL [facility] 79-97 hematocrit, blood 41.0 % [facility] 34.0-46.6 hemoglobin, blood 13.3 g/dL [facility] 11.1-15.9 erythrocyte (RBC) count 4.37 X10E6/UL [facility] 3.77-5.28 leukocyte count, blood 5.7 X10E3/UL [facility] 3.4-10.8 prothrombin time (patient) 10.5 s [facility] 9.1-12.0 international normalized ratio (INR) 1.0 [facility] 0.9-1.2 bacteria, urine microscopy None seen [facility] None seen/Few hyaline casts, urine None seen [facility] None seen epithelial cells, urine None seen [facility] 0 - 10 RBC, Urine None seen /hpf [facility] 0 - 2 WBC urine on microscopy None seen /hpf [facility] 0 - 5 nitrate, urine Negative [facility] Negative urobilinogen, urine, semiquantitative (dipstick) 0.2 [facility] 0.2-1.0 bilirubin, urine Negative [facility] Negative hemoglobin, urine, by dipstick Negative [facility] Negative ketones, urine, by test strip Negative [facility] Negative glucose, urine Negative [facility] Negative protein, urine, semiquantitative (dipstick) Negative [facility] Negative/Tr moy leukocyte esterase, urine, by dipstick Negative [facility] Negative appearance, urine Clear [facility] Clear urine color Yellow [facility] Yellow pH, urine, semiquantitative 5.5 [facility] 5.0-7.5 specific gravity, body fluid 1.009 [facility] 1.005-1.030 calcium, serum 9.9 mg/dL [facility] 8.7-10.3 carbon dioxide, venous blood 25 mmol/L [facility] 20-29 chloride, serum 99 mmol/L [facility] 96-106 potassium, serum 4.5 mmol/L [facility] 3.5-5.2 sodium, serum 138 mmol/L [facility] 151-890 5298/01 /28 urea nitrogen/creatinine ratio, serum 20 [facility] 12-28 eGFR if 55 mL/min/{1.73_m 2} [facility] >59 Low eGFR if not 48 mL/min/{1.73_m 2} [facility] >59 Low creatinine, serum 1.07 mg/dL [facility] 0.57-1.00 High urea nitrogen, blood 21 mg/dL [facility] 8-27 blood glucose, random 82 mg/dL [facility] 65-99 basophil count, absolute 0.0 x10E3/uL [facility] 0.0-0.2 Eosinophil Absolute Count 0.1 X10E3/UL [facility] 0.0-0.4 monocyte count, blood, automated 0.4 X10E3/UL [facility] 0.1-0.9 lymphocyte count, blood, automated 2.1 X10E3/UL [facility] 0.7-3.1 Absolute Neutrophils 3.0 X10E3/UL [facility] 1.4-7.0 basophils as percent of blood leukocytes 1 % [facility] Not Estab. eosinophils as percent of blood leukocytes 1 % [facility] Not Estab. monocytes as percent of blood leukocytes 7 % [facility] Not Estab. lymphocytes as percent of blood leukocytes 36 % [facility] Not Estab. neutrophils as percent of blood leukocytes 54 % [facility] Not Estab. platelet count 276 X10E3/UL [facility] 006-629 5177/01 /28 red blood cell distribution width 12.8 % [facility] 11.7-15.4 mean corpuscular hemoglobin concentration, RBC 32.9 G/DL [facility] 31.5-35.7 mean corpuscular hemoglobin, RBC 30.5 pg [facility] 26.6-33.0 mean corpuscular volume, RBC 93 fL [facility] 79-97 hematocrit, blood 45.0 % [facility] 34.0-46.6 hemoglobin, blood 14.8 g/dL [facility] 11.1-15.9 erythrocyte (RBC) count 4.85 X10E6/UL [facility] 3.77-5.28 leukocyte count, blood 5.6 X10E3/UL [facility] 3.4-10.8 HISTORY OF MEDICATION USE Medication Status Instructions Dates Provider Indications Com ments Ativan 1 mg tablet active Take 1 tablet by mouth at bedtime as needed as directed pt was educated about not selling, abusing or sharing Bc Martinez MD Insomnia amoxicillin 500 mg capsule active Take 4 capsule by mouth as directed Take 4 capsules 4 hrs before procedure and take 4 capsules 4 hrs after procedure. Dario Morocho Ativan 1 mg tablet completed Take 1 tablet by mouth at bedtime as needed pt was educated about not selling, abusing or sharing - Bc Martinez MD Insomnia Eliquis 2.5 mg tablet active Take 1 tablet by mouth twice a day Dario Morocho Eliquis 2.5 mg tablet completed TAKE ONE TABLET TWICE DAILY - Shanna Baker diltiazem HCl 30 mg tablet active Take 1 tablet by mouth twice a day Dario Morocho aspirin 81 mg capsule completed - Leroy Velez cephalexin 250 mg capsule completed Take 1 capsule by mouth three times a day - Bc Martinez MD cephalexin 250 mg capsule completed - Bc Martinez MD Percocet 5-325 mg tablet completed Take 1 tablet by mouth every four hours as needed for pain do ot drive or fly for 24 after taking this medication - Bc Martinez MD Percocet 5-325 mg tablet completed - Bc Martinez MD Eliquis 2.5 mg tablet completed - Jossie Marcus ketorolac 0.4% drops active Jossie Marcus levothyroxine 50 mcg tablet active Jossie Marcus SOCIAL HISTORY Date Observation Value Provider smoking status Never smoker Dario Morocho smoking status Never smoker Leroy Bubba aparicio smoking status Never smoker Kayden Tony Exercise counseling No - Medical Reason Ras Morales social history reviewed E&M revi ewed - no changes required Dario Morocho social history E&M S moking History: Mansoor knight has never smoked. Dario Morocho social history reviewed E&M revi ewed - no changes required Dario Morocho smoking status Never smoker Ivanna Baldwin social history reviewed E&M revi ewed - no changes required Dario Morocho social history reviewed E&M revi ewed - no changes required Dario Morocho social history E&M S moking History: Mansoor eugene has never smoked. Dario Morocho social history reviewed E&M revi ewed - no changes required Dario Morocho smoking status Never smoker Shanna mcallister social history reviewed E&M revi ewed - no changes required Bc Martinez MD smoking status Never smoker Vanessa Mayberry and social history reviewed E&M revi ewed - no changes required Nichole Chan smoking status Never smoker Shanna mcallister social history E&M S moking History: Mansoor knight has never smoked. Jossie Marcus social history reviewed E&M revi ewed - no changes required Jossie Marcus smoking status Never smoker Shanna mcallister social history E&M S moking History: Mansoor knight has never smoked. Jossie Marcus social history reviewed E&M revi ewed - no changes required Jossie Marcus smoking status Never smoker Shanna mcallister INSURANCE PROVIDERS Payer name Policy type / Coverage type Creole red alliance party ID [employer] Other [employer] Other [employer] [place] PPO Medicare [id number] ADVANCE DIRECTIVES Name Date DISCUSSED - NO DECISION MADE TREATMENT PLAN Date Name Performer [id number],S, Dario Wade i [id number],B,e pisodes occur almost daily but not worse from before Dario Morocho [id number],S, Dario Wade i [id number],S, Dario Wade i [id number],C, u nchanged from echo 09/2022 Dario Morocho [id number],C,on Eliquis Kita Morocho [id number],C,U nlikely to be cardiac as her stress nuclear and echo were overall normal. Dario Morocho [id number],C,unchanged fro m echo today Dario Morocho [id number],S,S mellisa last visit she complains of dizziness, near syncope, vision changes. She also complains of chest pain which radiates to her neck. She has poor sleep quality. She has VT episodes seen on device check, will check echo to assess for EF and stress nuclear to rule out ischemia as culprit for VT. Dario Wadei [id number],S, Dario Wade i [id number],C,Occurs daily Dario Morocho [id number],C, Device check shows new episodes of VT, will check echo and stress nuclear to evaluate and rule out ischemia. Dario Morocho [id number],C,S xs occur almost daily. Device check shows new episodes of VT, will check echo and stress nuclear to evaluate . Dario Morocho [id number],W,R ecent device check showed AT/AF Viola: 0.0%, % Pacing: RA - 87.0% RV - 12.0%. Dario Morocho [id number],C,u nknown etiology of her dizziness and imbalance, recommended she decrease her Diltiazem to 30 mg BID and see if her sxs improve. Dario Morocho [id number],C,R emote check from 04/30 showed AT/AF Viola: 0.0% % Pacing: RA - 88.0% RV - 19.0% Dario Wade [id number],C, I mproved. Dario Morocho [id number],C,E cho CONCLUSIONS: 1 . Normal left ventricular systolic function. Normal left ventricular size. Normal left ventricular wall thickness. There is E to A w ave reversal consistent with impaired LV relaxation. E/E': 5.0 Left ventricular ejection fraction is measured at 60 %. 2 . Right atrium at upper limits of normal size. Linear artifact in right atrium suggestive of catheter, pacer lead, or ICD lead. 3 . There is aortic valve sclerosis. Tri-leaflet aortic valve. Aortic valve leaflets appear structurally normal. Velocities, as well as g radients across the aortic valve are normal. Moderate aortic valve regurgitation. The SAMM is 2.8 cm2. 4 . Normal aortic root size. Mild aortic wall calcification. [facility] [id number],C,Improved. Antonieta rené [facility] [id number],C,H er recent device check showed AT/AF Viola: 0.0%, % Pacing: RA - 86.0% RV - 8.0%. 02/2022 Dario beckyjoie [id number],C,No reoccurran ce. Dario ct [id number],C,l ast EKG with NSR. No events on device. T he 'red streaks' around incision to PPM is from the sutures used. Not on AC. Takes only ASA daily. Reinforced to patient to take Eliquis 2.5 mg bid. Diltiazem was decreased to 30 mg tid. Jolene Roland JASON [id number],B,resolved. She rry Luan GOMEZ [id number],S,moderate per last echo Jolene Roland JASON [id number],C, C ontinues to have dizziness. Pacemaker is functioning well. Will schedule echo and carotid duplex and obtain labwork for further assessment. Nichole Dustin [id number],C, C ontinues to have dizziness. Pacemaker is functioning well. Will schedule echo and carotid duplex and obtain labwork for further assessment. Nichole Dustin [id number],S, H ad pacemaker placed. Device is functioning well Nichole Ashleykoko [id number],C, r emains on Eliquis 2.5mg BID. Device check last week showed no afib Nichole Ashleykoko [id number],C, F ollows with PCP. Celestenara Key NP [id number],S, Celeste Yesi GOMEZ [id number],C,w ill increase HR to 80 on device. will check CT head non-contrast. will check cxr Celeste Key NP [id number],C,i nterrogation no events. will increase rate to 80. will check cxr, CT head without contrast. Celeste Key NP [id number],C,s/p PPM. will check CXR today Celeste Yesi GOMEZ [id number],C,r emains on Eliquis 2.5mg BID. interrogation today,no AFIB. Celeste Yesi GOMEZ [id number],C,r estart eliquis now take 5 mg of eliquis now and continue 2.5 mg PO bid atrting tomorrow Bc Martinez MD [id number],C, Bc salinas MD [id number],B, Bc salinas MD [id number],C, Bc salinas MD [id number],C,p ost pacemaker implantation O rders: G lobal No Charge (CPT-35013) Bc Martinez MD [id number],C,s hould improve if in sinus O rders: C omplete Echo (CPT-79332) Bc Martinez MD [id number],W,a rrhythmia na AI related O rders: C omplete Echo (CPT-84674) 9 9214 MOD 30-39min (CPT-77266) Bc Colekhadar HAMMOND [id number],W, O rders: C omplete Echo (CPT-00637) P acemaker Dual Chamber - [facility] (*) ravi Michelle HAMMOND [id number],W, O rders: P acemaker Dual Chamber - [facility] (*) She feels generally unwell, lethargic, dizzy, and with palpitations, about the same as prior to her ablation atrial flutter ablation by Dr. Méndez. No Afib ablation was done at that time. I would not recommend her for atrial fibrillation ablation at this time. Her echo 12/2020 showed moderate AI, increases the risk of complications during any left-sided ablation for atrial fibrillation. Eliquis 2.5bid for OAC. G IVEN HER RECENT ZERO CALCIUM SCORE TIKOSYN OR FLECAINIDE MAY BE AN OPTION Orders: E KG (CPT-60736) C omplete Echo (CPT-41271) 9 9214 MOD 30-39min (CPT-82648) Bc Martinez MD [id number],W, M onitor from 06/29/2021 shows minimum HR 37, max 169 during short run of SVT. She uses a beta praveen eyedrop for glaucoma but no other medications at the time. Would recommend her for dual chamber permanent pacemaker implantation at this time. Discussed the indications, benefits, and risk of complications from the procedure with the patient who expressed understanding and is agreeable to proceed. Orders: P acemaker Dual Chamber - [facility] (*) Bc Martinez MD [id number],C, O rders: C omplete Echo (CPT-72490) Jossie Amrit [id number],B, M onitor from 06/29/2021 shows minimum HR 37, max 169 during short run of SVT. She uses a beta praveen eyedrop for glaucoma but no other medications at the time. Would recommend her for dual chamber permanent pacemaker implantation at this time. Discussed the indications, benefits, and risk of complications from the procedure with the patient who expressed understanding and is agreeable to proceed. Orders: Mansoor quiroga Dual Chamber - [facility] (*) Jossie Marcus [id number],C, O rders: Mansoor quiroga Dual Chamber - [facility] (*) She feels generally unwell, lethargic, dizzy, and with palpitations, about the same as prior to her ablation atrial flutter ablation by Dr. Méndez. No Afib ablation was done at that time. I would not recommend her for atrial fibrillation ablation at this time. Her echo 12/2020 showed moderate AI, increases the risk of complications during any left-sided ablation for atrial fibrillation. Eliquis 2.5bid for OAC. G IVEN HER RECENT ZERO CALCIUM SCORE TIKOSYN OR FLECAINIDE MAY BE AN OPTION Jacquesebony Marcus [id number],Ras Pires with PCP. Jossie Marcus [id number],W, M onitor from 06/29/2021 shows minimum HR 37, max 169 during short run of SVT. She uses a beta praveen eyedrop for glaucoma but no other medications at the time. Would recommend her for dual chamber permanent pacemaker implantation at this time. Discussed the indications, benefits, and risk of complications from the procedure with the patient who expressed understanding and is agreeable to proceed. Orders: Mansoor quiroga Dual Chamber - [facility] (*) Jossie Marcus [id number],C, Jossie Marcus [id number],C, O rders: Mansoor quiroga Dual Chamber - [facility] (*) She feels generally unwell, lethargic, dizzy, and with palpitations, about the same as prior to her ablation atrial flutter ablation by Dr. Méndez. No Afib ablation was done at that time. I would not recommend her for atrial fibrillation ablation at this time. Her echo 12/2020 showed moderate AI, increases the risk of complications during any left-sided ablation for atrial fibrillation. Eliquis 2.5bid for OAC. Jossie Marcus Electrophysiology: H er updated medication list for this problem includes: Diltiazem Hcl 30 Mg Tablet (Diltiazem hcl) ..... Take 1 tablet by mouth twice a day Orders: P ARTIAL THROMBOPLASTIN TIME, ACTIVATED (763) P ROTHROMBIN TIME WITH INR (8847) Bc Martinez MD Electrophysiology: H er updated medication list for this problem includes: Diltiazem Hcl 30 Mg Tablet (Diltiazem hcl) ..... Take 1 tablet by mouth twice a day Orders: P ARTIAL THROMBOPLASTIN TIME, ACTIVATED (763) P ROTHROMBIN TIME WITH INR (8847) Dario zhang Electrophysiology: O rders: P ARTIAL THROMBOPLASTIN TIME, ACTIVATED (763) P ROTHROMBIN TIME WITH INR (8847) Dario zhang Electrophysiology: O rders: P ARTIAL THROMBOPLASTIN TIME, ACTIVATED (763) P ROTHROMBIN TIME WITH INR (8847) Dario [facility] H er updated medication list for this problem includes: Diltiazem Hcl 30 Mg Tablet (Diltiazem hcl) ..... Take 1 tablet by mouth twice a day Orders: P ARTIAL THROMBOPLASTIN TIME, ACTIVATED (763) P ROTHROMBIN TIME WITH INR (8847) Dario Morocho Electrophysiology:be nzodialepine was refilled after pt was councelled extensively, not to share, or abuse medication Bc Martinez MD Electrophysiology: e pisodes occur almost daily but not worse from before Bc Martinez MD Electrophysiology:no worsening of dizziness, SOB 1 09/26/22 THONY E F 60%. No endocarditis, mitral valve leaflets moderately thickened, no vegetation. moderate AR, mild to moderate TR. Her echocardiagram shows that she has normal LV function EF 60%, there is non-specific thickening of the mitral valve leaflets with mild MR, There is moderate to severe tricuspid regurgiation. She has been feeling well since she was last evaluated. I have discussed the process of mitral valve replacement given her non-specific thickening of the mitral valve, Bc Martinez MD Electrophysiology: cruz Carter Leroy Jordaninari Electrophysiology: e pisodes occur almost daily but not worse from before Leroy Jordaninari Electrophysiology:de nies any SOB discussed that if SOB worsens may need to procedure to aortic or mitral valve surgery Leroy Jordaninari Electrophysiology:no worsening of dizziness, SOB 1 09/26/22 THONY E F 60%. No endocarditis, mitral valve leaflets moderately thickened, no vegetation. moderate AR, mild to moderate TR. Her echocardiagram shows that she has normal LV function EF 60%, there is non-specific thickening of the mitral valve leaflets with mild MR, There is moderate to severe tricuspid regurgiation. She has been feeling well since she was last evaluated. I have discussed the process of mitral valve replacement given her non-specific thickening of the mitral valve, Leroy Macri Electrophysiology: THONY CONCLUSIONS: 1 . No signs to suggest valvular endocarditis. 2 . Mitral valve leaflets appear moderately thickened. Primarily annterior leaflet is thickened but no vegetion or flil leaflet was s een. Mild mitral annular calcification. There is mild mitral valve regurgitation. 3 . Aortic cusps appear mildly calcified. There is moderate aortic valve regurgitation. 4 . There is mild to moderate tricuspid regurgitation. Leroy Velez Electrophysiology Kayden Pablo Electrophysiology:denies Kayden Pablo Electrophysiology: H er updated medication list for this problem includes: Diltiazem Hcl 30 Mg Tablet (Diltiazem hcl) ..... Take 1 tablet by mouth twice a day Kayden Pablo Electrophysiology:I have discussed the possibilities of doing mitral valve replacement and have referrred her to CT surgery at [facility] Kayden Pablo Electrophysiology Kayden Pablo Electrophysiology Dario Morocho Electrophysiology:ep isodes occur almost daily but not worse from before Dario Morocho Electrophysiology Dario Morocho Electrophysiology Dario Wade Electrophysiology: u nchanged from echo 09/2022 Dario Wade Electrophysiology:on Eliquis Antonieta Wade Electrophysiology:Un likely to be cardiac as her stress nuclear and echo were overall normal. Dario Wade Electrophysiology:unchanged from echo today Dario ct Electrophysiology:Si nce last visit she complains of dizziness, near syncope, vision changes. She also complains of chest pain which radiates to her neck. She has poor sleep quality. She has VT episodes seen on device check, will check echo to assess for EF and stress nuclear to rule out ischemia as culprit for VT. [facility] Elect[facility] Electrophysiology:Occurs daily R [facility] Electrophysiology: D evice check shows new episodes of VT, will check echo and stress nuclear to evaluate and rule out ischemia. [facility] Electrophysiology:Sx s occur almost daily. Device check shows new episodes of VT, will check echo and stress nuclear to evaluate . [facility] Electrophysiology:Re cent device check showed AT/AF Viola: 0.0%, % Pacing: RA - 87.0% RV - 12.0%. [facility] Electrophysiology:un known etiology of her dizziness and imbalance, recommended she decrease her Diltiazem to 30 mg BID and see if her sxs improve. [facility] Electrophysiology:Re mote check from 04/30 showed AT/AF Viola: 0.0% % Pacing: RA - 88.0% RV - 19.0% [facility] Electrophysiology: I mproved. [facility] Electrophysiology:Ec ho CONCLUSIONS: 1 . Normal left ventricular systolic function. Normal left ventricular size. Normal left ventricular wall thickness. There is E to A w ave reversal consistent with impaired LV relaxation. E/E': 5.0 Left ventricular ejection fraction is measured at 60 %. 2 . Right atrium at upper limits of normal size. Linear artifact in right atrium suggestive of catheter, pacer lead, or ICD lead. 3 . There is aortic valve sclerosis. Tri-leaflet aortic valve. Aortic valve leaflets appear structurally normal. Velocities, as well as g radients across the aortic valve are normal. Moderate aortic valve regurgitation. The SAMM is 2.8 cm2. 4 . Normal aortic root size. Mild aortic wall calcification. Dario Wadeoly Electrophysiology:Improved. Dario Wadeoly Electrophysiology:He r recent device check showed AT/AF Viola: 0.0%, % Pacing: RA - 86.0% RV - 8.0%. 02/2022 Dario Wadeoly Electrophysiology:No reoccurranc e. Dario ctoly Electrophysiology:la st EKG with NSR. No events on device. T he 'red streaks' around incision to PPM is from the sutures used. Not on AC. Takes only ASA daily. Reinforced to patient to take Eliquis 2.5 mg bid. Diltiazem was decreased to 30 mg tid. Jolene Roland NP Electrophysiology:resolved. Quinton Roland NP Electrophysiology:moderate per l ast echo Jolene Luan GOMEZ Cardiology: C ontinues to have dizziness. Pacemaker is functioning well. Will schedule echo and carotid duplex and obtain labwork for further assessment. Nichole Chan Cardiology: C ontinues to have dizziness. Pacemaker is functioning well. Will schedule echo and carotid duplex and obtain labwork for further assessment. Nichole Chan Cardiology: H ad pacemaker placed. Device is functioning well Nichole Chan Cardiology: r emains on Eliquis 2.5mg BID. Device check last week showed no afib Nichole Chan Electrophysiology: F ollows with PCP. Celeste Key [employer] Electrophysiology Celeste paez [employer] Electrophysiology:wi ll increase HR to 80 on device. will check CT head non-contrast. will check cxr Celeste Key [employer] Electrophysiology:in terrogation no events. will increase rate to 80. will check cxr, CT head without contrast. Celeste Osegueracy GOMEZ Electrophysiology:s/p PPM. will check CXR today Celeste Osegueracy GOMEZ Electrophysiology:re tomeka on Eliquis 2.5mg BID. interrogation today,no AFIB. Celeste Key NP restart eliquis now take 5 mg of now and continue 2.5 mg BID.SK:restart eliquis now take 5 mg of eliquis now and continue 2.5 mg PO bid atrting tomorrow Bc Martinez MD restart eliquis now take 5 mg of now and continue 2.5 mg BID.KIARA Martinez MD restart eliquis now take 5 mg of now and continue 2.5 mg BID.KIARA Martinez MD restart eliquis now take 5 mg of now and continue 2.5 mg BID.KIARA Martinez MD restart eliquis now take 5 mg of now and continue 2.5 mg BID.SK:post pacemaker implantation O rders: G lobal No Charge (CPT-21023) Bc Martinez MD Electrophysiology:sh ould improve if in sinus O rders: C omplete Echo (CPT-91882) Bc Martinez MD Electrophysiology:ar rhythmia na AI related O rders: C omplete Echo (CPT-14462) 9 9214 MOD 30-39min (CPT-40976) Bc Martinez MD Electrophysiology: O rders: C omplete Echo (CPT-66155) P acemaker Dual Chamber - [facility] (*) Bc Martinez MD Electrophysiology: O rders: P acemaker Dual Chamber - [facility] (*) She feels generally unwell, lethargic, dizzy, and with palpitations, about the same as prior to her ablation atrial flutter ablation by Dr. Méndez. No Afib ablation was done at that time. I would not recommend her for atrial fibrillation ablation at this time. Her echo 12/2020 showed moderate AI, increases the risk of complications during any left-sided ablation for atrial fibrillation. Eliquis 2.5bid for OAC. G IVEN HER RECENT ZERO CALCIUM SCORE TIKOSYN OR FLECAINIDE MAY BE AN OPTION Orders: E KG (CPT-83850) C omplete Echo (CPT-31738) 9 9214 MOD 30-39min (CPT-54096) Bc Martinez MD Electrophysiology: M onitor from 06/29/2021 shows minimum HR 37, max 169 during short run of SVT. She uses a beta praveen eyedrop for glaucoma but no other medications at the time. Would recommend her for dual chamber permanent pacemaker implantation at this time. Discussed the indications, benefits, and risk of complications from the procedure with the patient who expressed understanding and is agreeable to proceed. Orders: Mansoor quiroga Dual Chamber - [facility] (*) Bc Martinez MD Electrophysiology: O rders: Pranay cottonlete Echo (CPT-91129) Jossie Marcus Electrophysiology: M onitor from 06/29/2021 shows minimum HR 37, max 169 during short run of SVT. She uses a beta praveen eyedrop for glaucoma but no other medications at the time. Would recommend her for dual chamber permanent pacemaker implantation at this time. Discussed the indications, benefits, and risk of complications from the procedure with the patient who expressed understanding and is agreeable to proceed. Orders: Mansoor acemalisbet Dual Chamber - [facility] (*) Jossie aMrcus Electrophysiology: O rders: P acemaker Dual Chamber - [facility] (*) She feels generally unwell, lethargic, dizzy, and with palpitations, about the same as prior to her ablation atrial flutter ablation by Dr. Méndez. No Afib ablation was done at that time. I would not recommend her for atrial fibrillation ablation at this time. Her echo 12/2020 showed moderate AI, increases the risk of complications during any left-sided ablation for atrial fibrillation. Eliquis 2.5bid for OAC. G IVEN HER RECENT ZERO CALCIUM SCORE TIKOSYN OR FLECAINIDE MAY BE AN OPTION Jossie Marcus Electrophysiology: Ras lomax with PCP. Jossie Marcus Electrophysiology: M onitor from 06/29/2021 shows minimum HR 37, max 169 during short run of SVT. She uses a beta praveen eyedrop for glaucoma but no other medications at the time. Would recommend her for dual chamber permanent pacemaker implantation at this time. Discussed the indications, benefits, and risk of complications from the procedure with the patient who expressed understanding and is agreeable to proceed. Orders: P acemaker Dual Chamber - [facility] (*) Jossie Marcus Electrophysiology Jossie Marcus Electrophysiology: O rders: P acemaker Dual Chamber - [facility] (*) She feels generally unwell, lethargic, dizzy, and with palpitations, about the same as prior to her ablation atrial flutter ablation by Dr. Méndez. No Afib ablation was done at that time. I would not recommend her for atrial fibrillation ablation at this time. Her echo 12/2020 showed moderate AI, increases the risk of complications during any left-sided ablation for atrial fibrillation. Eliquis 2.5bid for OAC. Jossie Marcus Date Name Aorta Duplex Ultraso und Complete Echo PROTHROMBIN TIME WIT H INR PARTIAL THROMBOPLAST IN TIME, ACTIVATED Sleep Study Home THONY - [facility] CULTURE, BLOOD CXR- PA/Lat Complete Echo PROTHROMBIN TIME WIT H INR PARTIAL THROMBOPLAST IN TIME, ACTIVATED TSH, free T4, total T3 CBC (INCLUDES DIFF/P LT) HEMOGLOBIN A1c LIPID PANEL COMPREHENSIVE METABO LIC PANEL, W/EGFR Stress Regadenoson Complete Echo RPM (remote patient monitoring) Carotid Duplex Bilat eral Complete Echo Carotid Duplex Bilat eral Cortisol Complete Echo CBC (INCLUDES DIFF/P LT) COMPREHENSIVE METABO LIC PANEL, W/EGFR IRON AND TOTAL IRON BINDING CAPACITY FERRITIN CBC (INCLUDES DIFF/P LT) PROTHROMBIN TIME WIT H INR Partial Thromboplast in Time, Activated TSH, free T4, total T3 COMPREHENSIVE METABO LIC PANEL, W/EGFR CT Head without cont rast X-Ray, Chest - Routi ne RPM (remote patient monitoring) X-Ray, Chest - Routi ne X-Ray, Chest - Routi ne X-Ray, Chest - Routi ne Pacemaker Dual Chamb er - [facility] Complete Echo URINALYSIS, COMPLETE W/REFLEX TO CULTURE PROTHROMBIN TIME WIT H INR CBC (INCLUDES DIFF/P LT) BASIC METABOLIC PANE L W/EGFR Pacemaker Dual Chamb er - [facility] HISTORY OF PROCEDURES Procedure Date Procedure Name Provider Procedure Notes S tatus EKG Bc Martinez MD comp leted EKG Bc Martinez MD comp leted Schedule Followup Bc Martinez MD completed Schedule Followup Bc Martinez MD do CxRay on 10/26 [address] at [address] Martinez at [facility] completed EKG Bc Martinez MD comp leted EKG Bc Martinez MD comp leted
--- OUTSIDE RECORDS SUMMARY | 2024-08-09 17:46 | XMS_ITS | Encounter Summary ---
Author Organization [facility] Healthcare Address [address] [place] [address] Care Team Providers Care Rn Maternity Name Role Phone Christine Kednall MD Unavailable [phone] Sita Magana MD Unavailable [phone] Nabila King MD Primary Care Provider [phone] Regulo Pandey MD Unavailable Gigi Méndez MD Unavailable [phone] Bc Martinez MD Unavailable [phone] Martin Correa MD Unavailable [phone] NiviaGildardo bowen Si, MD Unavailable Encounter Details Date Type Department Care Team (Late st Contact Info) Description 02/09/2024 Orders Only [facility] [address] [place] [id number] Scanning, Provider Social History Tobacco Use [...] on file Legal Sex Female 8:14 PM [employer] Gender Identity Not on file Sexual Orientation Not on file 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 Not on file documented as of this encounter Plan of Treatment Not on file documented as of this encounter Procedures Procedure Name Priority Date/Time Associated Diagnosis Comments SCAN - LABS 02/09/2024 documented in this encounter Results * SCAN - LABS (02/09/2024) us Provider Scanning Final Result documented in this encounter Visit Diagnoses Not on filedocumented in this encounter Care Teams Rn Maternity Relationship Specialty Start Date End Date Nabila King MD [address] [place] [address] PCP - General Internal Medicine 12/16/20 Christine Kendall MD Surgeon Ophthalmology 12/13/20 Sita Magana MD [address] [place] [address] Consulting Physician Internal Medicine 12/13/20 Regulo Pandey MD [address] [place] [address] [address] [place] [address] Referring Physician Cardiovascular Disease 12/16/20 Gigi Méndez MD [address] [place] [address] [address] [place] [id number] Referring Physician Cardiology 02/18/21 Bc Martinez MD [address] [place] [address] Referring Physician Cardiology 08/22/23 Martin Correa MD [address] [place], [place] [id number] Consulting Physician Cardiothoracic Surgery 08/22/23 Nivia, Gildardo Gomez MD [address] [facility] [address] [address] Consulting Physician Neurology 07/09/24 documented as of this encounter
--- OUTSIDE RECORDS SUMMARY | 2024-08-09 17:47 | XMS_ITS | Encounter Summary ---
Author Organization [facility] Address [address] [place] [address] Phone Care Team Providers Care Senior Art Director Name Role Phone Christine Kendall MD Unavailable [phone] Sita Magana MD Unavailable [phone] Nabila King MD Primary Care Provider [phone] Regulo Pandey MD Unavailable Gigi Méndez MD Unavailable [phone] Bc Martinez MD Unavailable [phone] Reason for Referral * Diagnostic Imaging (Routine) - Closed Specialty Diagnoses / Procedures Referred By Contac t Referred To Contact Diagnoses Low-tension glaucoma, bilateral, severe stage Procedures OCT, Optic Nerve - OU - Both Eyes Christine Kendall MD [address] [facility] DEPT OPHTHALMOLOGY, [facility] [address] [place] [address] Phone: tel: fax: [facility] (All Locations) Referral ID Status Reason Start Date Expiration Date Visits Re quested Visits Authorized [id number] Closed 05/08/2023 06/06/2024 1 1 * Diagnostic Imaging (Routine) - Closed Specialty Diagnoses / Procedures Referred By Contac t Referred To Contact Diagnoses Low-tension glaucoma, bilateral, severe stage Procedures Dyer Visual Field - OU - Both Eyes Christine Kendall MD [address] DEPT OPHTHALMOLOGY, [facility] [address] [place] [address] Phone: tel: fax: [facility] (All Locations) Referral ID Status Reason Start Date Expiration Date Visits Re quested Visits Authorized [id number] Closed 05/08/2023 06/06/2024 1 1 Reason for Visit * Diagnostic Imaging (Routine) - Closed Specialty Diagnoses / Procedures Referred By Contclaudia t Referred To Contact Diagnoses Low-tension glaucoma, bilateral, severe stage Procedures Dyer Visual Field - OU - Both Eyes Christine Kendall MD [address] OPHTHALMOLOGY, [address] [address] Phone: tel: fax: [facility] (All Locations) Referral ID Status Reason Start Date Expiration Date Visits Re quested Visits Authorized [id number] Closed 05/08/2023 06/06/2024 1 1 Encounter Details Date Type Department Care Team (Late st Contact Info) Description 05/08/2023 9:30 AM CDT Imaging Exam [facility] Ophthalmology [facility] [address] 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 Gender Identity Not on file Sexual Orientation Not on file 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 Not on file documented as of this encounter Plan of Treatment Not on file documented as of this encounter Procedures Procedure Name Priority Date/Time Associated Diagnosis Comments DYER VISUAL FIELD - OU - BOTH EYES Routine 05/08/2023 10:08 AM CDT Low-tension glaucoma, bilateral, severe stage documented in this encounter Results * Dyer Visual Field - OU - Both Eyes (05/08/2023 10:08 AM CDT) Pattern Deviation OS 12.91 dB CONTINUUM Pattern Deviation OD 10.91 dB CONTINUUM Mean Deviation OS -13.45 dB CONTINUUM Mean Deviation OD -13.44 dB CONTINUUM Anatomical Region Laterality Modality Head Other Narrative 05/08/2023 5:27 PM CDT Right Eye Fixation was good. Cooperation was good. Reliability was good. Progression has been stable. Foveal threshold was normal. Findings include superior arcuate defect, inferior arcuate defect. Mean Deviation was -13.44 dB. Pattern Deviation was 10.91 dB. Left Eye Fixation was good. Cooperation was good. Reliability was good. Progression has been stable. Foveal threshold was normal. Findings include inferior arcuate defect. Mean Deviation was -13.45 dB. Pattern Deviation was 12.91 dB. Notes 10-2 us Christine Kendall MD OPHTH VISUAL FIELD Final Result * OCT, Optic Nerve - OU - Both Eyes (05/08/2023 10:08 AM CDT) RNFL OS 59 micrometers CONTINUUM RNFL OD 54 micrometers CONTINUUM Anatomical Region Laterality Modality Head Other Narrative 05/08/2023 5:29 PM CDT Right Eye Reliability was good. Temporal progression was stable. Temporal thickness was showing abnormal thinning. Superior progression was stable. Superior thickness was showing abnormal thinning. Nasal progression was stable. Nasal thickness was normal. Inferior progression was stable. Inferior thickness was showing abnormal thinning. Average RNFL thickness 54 micrometers. Left Eye Reliability was good. Temporal progression was stable. Temporal thickness was normal. Superior progression was stable. Superior thickness was showing abnormal thinning. Nasal progression was stable. Nasal thickness was normal. Inferior progression was stable. Inferior thickness was showing abnormal thinning. Average RNFL thickness 59 micrometers. Notes Near the floor right eye (OD) > left eye (OS) Christine Kendall MD OPHTH TOMOGRAPHY Final R esult documented in this encounter Visit Diagnoses Diagnosis Low-tension glaucoma, bilateral, severe stage- Primary Low-tension glaucoma, bilateral, severe stage documented in this encounter Care Teams Senior Art Director Relationship Specialty Start Date End Date Nabila King MD [address] [facility] [address] [place] [address] PCP - General Internal Medicine 12/16/20 Christine Kendall MD Surgeon Ophthalmology 12/13/20 Sita Magana MD [address] [facility] [address] [place] [address] Consulting Physician Internal Medicine 12/13/20 Regulo Pandey MD [address] [facility] [address] [place] [address] Referring Physician Cardiovascular Disease 12/16/20 Gigi Méndez MD [address] [facility] [address] [place] [address] Referring Physician Cardiology 02/18/21 Bc Martinez MD [address] [place] [address] Consulting Physician Cardiology 10/22/21 08/21/23 documented as of this encounter
--- OUTSIDE RECORDS SUMMARY | 2024-08-09 17:47 | XMS_ITS | Encounter Summary ---
Author Organization [facility] Address [address] [place] [address] Care Team Providers Care Contour Band Saw Operator Vertical Name Role Phone Christine Kendall MD Unavailable [phone] Sita Magana MD Unavailable [phone] Nabila King MD Primary Care Provider [phone] Regulo Pandey MD Unavailable Gigi Méndez MD Unavailable [phone] Bc Martinez MD Unavailable [phone] Encounter Details Date Type Department Care Team (Late st Contact Info) Description 07/21/2023 Orders Only [facility] [address] [place] [address] Scanning, Provider Social History Tobacco [...] on file 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 Gender Identity Not on file Sexual Orientation Not on file 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 Not on file documented as of this encounter Plan of Treatment Not on file documented as of this encounter Procedures Procedure Name Priority Date/Time Associated Diagnosis Comments SCAN - LABS 07/21/2023 documented in this encounter Results * SCAN - LABS (07/21/2023) us Provider Scanning Edited Result - Final documented in this encounter Visit Diagnoses Not on filedocumented in this encounter Care Teams Contour Band Saw Operator Vertical Relationship Specialty Start Date End Date Nabila King MD [address] [facility] [address] [place] [address] PCP - General Internal Medicine 12/16/20 Christine Kendall MD Surgeon Ophthalmology 12/13/20 Sita Magana MD [address] [facility] [address] [place] [address] Consulting Physician Internal Medicine 12/13/20 Regulo Pandey MD [address] [place] [address] [address] [place] [address] Referring Physician Cardiovascular Disease 12/16/20 Gigi Méndez MD [address] [place] [address] [address] [place] [address] Referring Physician Cardiology 02/18/21 Bc Martinez MD [address] [place] [address] Consulting Physician Cardiology 10/22/21 08/21/23 documented as of this encounter
--- OUTSIDE RECORDS SUMMARY | 2024-08-09 17:47 | XMS_ITS | Encounter Summary ---
Author Organization [facility] Address [address] [place] [address] Phone Care Team Providers Care Packing Machine Operator Name Role Phone FaizaChristine MD Unavailable [phone] Sita Magana MD Unavailable [phone] Nabila King MD Primary Care Provider Regulo Pandey MD Unavailable 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 Not on file documented as of this encounter Plan of Treatment Not on file documented as of this encounter Procedures Procedure Name Priority Date/Time Associated Diagnosis Comments SCAN - RADIOLOGY/IMAGING 09/22/2022 CARDIOLOGY DOCUMENT SCAN 09/22/2022 documented in this encounter Results * CARDIOLOGY DOCUMENT SCAN (09/22/2022) Anatomical Region Laterality Modality Other us Provider Scanning CV CARDIAC SERVICES PROCEDURES Final Result * SCAN - RADIOLOGY/IMAGING (09/22/2022) Anatomical Region Laterality Modality Other us Provider Scanning Final Result documented in this encounter Visit Diagnoses Not on filedocumented in this encounter Care Teams Packing Machine Operator Relationship Specialty Start Date End Date Nabila King MD [address] [place] [address] [address] [place] [address] PCP - General Internal Medicine 12/16/20 Christine Kendall MD Surgeon Ophthalmology 12/13/20 Sita Magana MD [address] [place] [address] [address] [place] [address] Consulting Physician Internal Medicine 12/13/20 Regulo Pandey MD [address] [place] [address] [address] [place] [address] Referring Physician Cardiovascular Disease 12/16/20 Gigi Méndez MD [address] [place] [address] [address] [place] [address] Referring Physician Cardiology 02/18/21 cB Martinez MD [facility] [place] [address] Consulting Physician Cardiology 10/22/21 08/21/23 Bc Martinez MD [address] [place] [address] Referring Physician Cardiology 08/22/23 Martin Correa MD [address] [place] [address] Consulting Physician Cardiothoracic Surgery 08/22/23 [facility], Gildardo Gomez MD [facility] [place] [address] Consulting Physician Neurology 07/09/24 documented as of this encounter
--- OUTSIDE RECORDS SUMMARY | 2024-08-09 17:47 | XMS_ITS | Encounter Summary ---
Author Organization [facility] Healthcare Address [address] [place] [address] Care Team Providers Care Weight Caller Name Role Phone Christine Kendall MD Unavailable [phone] Sita Magana MD Unavailable [phone] Nabila King MD Primary Care Provider [phone] Regulo Pandey MD Unavailable Gigi Méndez MD Unavailable [phone] Bc Martinez MD Unavailable [phone] Martin Correa MD Unavailable [phone] Reason for Visit * Reason Comments Cardiac Valve Problem * Consultation (Routine) - Closed Specialty Diagnoses / Procedures Referred By Contac t Referred To Contact Cardiothoracic Surgery Diagnoses Aortic valve insufficiency, etiology of cardiac valve disease unspecified Bc Martinez MD [address] [place] [address] Phone: tel: fax: Cardiovascular and Thoracic Surgery [address] [place] [address] Phone: tel: fax: Referral ID Status Reason Start Date Expiration Date V isits Requested Visits Authorized [id number] Closed Specialty Services Required 08/22/2023 09/20/2024 1 1 Encounter Details Date Type Department Care Team (Latest Contact Info) Description 09/06/2023 11:20 AM FELT CEMENTER Office Visit Cardiovascular and Thoracic Surgery [address] [place] [address] [address] [place] [address] Martin Correa MD [address] [facility] [address] [place] [address] Nonrheumatic mitral valve regurgitation (Primary Dx); Aortic valve insufficiency, etiology of cardiac valve disease unspecified; Nonrheumatic tricuspid valve regurgitation Social History Tobacco Use Types Packs/Day Years [...] on file Legal Sex Female 8:14 PM FELT CEMENTER Gender Identity Not on file Sexual Orientation Not on file 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 Not on file documented as of this encounter Last Filed Vital Signs Vital Sign Reading Time Taken Comments Blood Pressure 164/80 09/06/2023 12:09 PM FELT CEMENTER Pulse 80 09/06/2023 12:09 PM FELT CEMENTER Temperature - - Respiratory Rate 18 09/06/2023 12:09 PM FELT CEMENTER Oxygen Saturation - - Inhaled Oxygen Concentration - - Weight 55.3 kg (122 lb) 09/06/2023 12:09 PM FELT CEMENTER Height 162.6 cm (5' 4 ) 09/06/2023 12:09 PM FELT CEMENTER Body Mass Index 20.94 09/06/2023 12:09 PM FELT CEMENTER documented in this encounter Patient Instructions * Patient Instructions* Lalita Leone NP - 09/06/2023 11:20 AM FELT CEMENTER No surgery necessary at this time. Follow up with your gasoline service attendant as scheduled. CEMENTER documented in this encounter Progress Notes * Lalita Leone NP - 09/06/2023 11:20 AM CST Cardiothoracic New Patient Office Consultation Patient Name: Lisa Conn : 1935 Referred by: Bc Martinez MD Primary Care Physician: Nabila King MD Date of Visit: 09/06/23 Chief Complaint: Cardiac Valve Problem HPI: Lisa Conn is a 87 y.o. female presenting for surgical evaluation of aortic, mitral and tricuspid valve regurgitation. She has a history of hypertension, SVT s/p ablation and ppm placementin 2020 and Alan's thyroiditis. She is followed by Dr. Martinez and a TTE on 06/26/2023 showeda non-specific thickening of the mitral valve leaflets with mild MR, modertae to severe TR and moderate AR with an EF of 60%. Blood cutlures were negative. Follow up THONY on on 07/25/2023 showed no signs of vegetation or mitral valve endocarditis with mild AR and more mild to moderate TR. She reportssymptoms of fatigue and SOB with mild exertion. Mrs. Conn comes to the office today accompanied by her daughter to meet with Dr. Correa. Allergies as of 09/06/2023 - Reviewed 09/06/2023 Allergen Reaction Noted Sulfa (sulfonamide antibiotics) Unknown 09/10/2021 Clarithromycin Hives Mastisol adhesive [gum qaptej-retrma-uocx-alcohol] Hives and Rash 03/18/2022 Metronidazole Hives Other Hives 11/24/2021 Chloramphenicol Other (See comments) Current Outpatient Medications: acetaminophen (TYLENOL) 500 mg tablet, Take 1 tablet (500 mg total) by mouth every 6 (six) hours asneeded for pain, Disp: , Rfl: amoxicillin 500 mg capsule, TAKE FOUR CAPSULES BY MOUTH ONE HOUR BEFORE PROCEDURE AND FOUR CAPSULESBY MOUTH 4HRS AFTER PROCEDURE, Disp: , Rfl: apixaban (ELIQUIS) 2.5 mg tablet, 1 tablet (2.5 mg total) 2 (two) times a day, Disp: , Rfl: clobetasoL (TEMOVATE) 0.05 % external solution, APPLY SOLUTION TOPICALLY 3 TO 4 TIMES DAILY FOR ITCHY SCALP, Disp: , Rfl: dilTIAZem (CARDIZEM) 60 mg tablet, Take 0.5 tablets (30 mg total) by mouth 3 (three) times a day, Disp: 135 tablet, Rfl: 2 ketorolac (ACULAR LS) 0.4 % drops, Administer 1 drop into both eyes daily, Disp: 5 mL, Rfl: 11 levothyroxine (SYNTHROID) 50 mcg tablet, Take 1 tablet (50 mcg total) by mouth nightly, Disp: 90 tablet, Rfl: 2 LORazepam (ATIVAN) 1 mg tablet, Take 1 tablet (1 mg total) by mouth nightly as needed, Disp: , Rfl: melatonin 5 mg tablet, Take 1 tablet (5 mg total) by mouth nightly, Disp: , Rfl: multivitamin capsule, Take 1 capsule by mouth daily, Disp: , Rfl: Past Medical History: Diagnosis Date History of [...] Laterality Date ABLATION OF AFIB FLUTTER 02/18/2021 [facility] CARDIAC PACEMAKER PLACEMENT 10/2021 COLONOSCOPY 01/08/2010 [...] Sister Glaucoma Sister Retinal detachment Sister Social History: Never smoker. No alcohol use. 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 Review of Systems Constitutional: Positive for malaise/fatigue. Negative for fever. Cardiovascular: Positive for dyspnea on exertion and palpitations. Negative for chest pain, leg swelling and near-syncope. Respiratory: Positive for shortness of breath. Negative for cough. Skin: Negative for rash and suspicious lesions. Musculoskeletal: Positive for arthritis. Negative for myalgias. Gastrointestinal: Negative for abdominal pain, dysphagia and melena. Genitourinary: Negative for dysuria and hematuria. Neurological: Positive for dizziness (occasional). Negative for numbness. Psychiatric/Behavioral: Negative for depression. The patient is not nervous/anxious. Objective: BP 164/80 Pulse 80 Resp 18 Ht 162.6 cm (5' 4 ) Wt 55.3 kg (122 lb) BMI 20.94 kg/m?? Physical Exam Constitutional: General: She is not in acute distress. Cardiovascular: Rate and Rhythm: Normal rate and regular rhythm. Pulses: Normal pulses. Heart sounds: Murmur (mild systolic murmur heard at RSB) heard. Pulmonary: Effort: Pulmonary effort is normal. Breath sounds: Rales (left base) present. Abdominal: General: Bowel sounds are normal. Palpations: Abdomen is soft. Musculoskeletal: General: No swelling or signs of injury. Skin: General: Skin is warm and dry. Neurological: General: No focal deficit present. Mental Status: She is alert and oriented to person, place, and time. Psychiatric: Mood and Affect: Mood normal. Behavior: Behavior normal. Data Review: Labs: Blood cultures 07/21/2023 - No aerobic or anaerobic growth in five days. Transesophageal Echocardiogram 07/25/2023 No signs to suggest valvular endocarditis. Mitral valve leaflets appear moderately thickened. Primarily anterior leaflet is thickened but no vegetation or flail leaflet was seen. Mild mitral annular calcification. There is mild mitral valve regurgitation. Aortic cusps appear mildly calcified. There is moderate aortic valve regurgitation. There is mild to moderate tricuspid regurgitation. Transthoracic Echocardiogram 06/26/2023 Normal left ventricular systolic function. Normal left ventricular size. Normal left ventriclar wall thickness. Normal left ventricular diastolic function. Left ventricular ejection fraction is measured at 60%. There is non-specific thickening of the mitral valve leaflets. Suspicious thickening of tip of anterior mitral chelsea leaflet. Mild mitral valve regurgitation. There is moderate to severe tricuspid regurgitation. IVC is normal in size with normal respiratory response. Estimated peak pulmonary artery systolic pressure is 28.0 mmhg. Assessment and Plan: Moderate aortic valve insufficiency, mild mitral valve regurgitation and mild to moderate tricuspidvalve regurgitation. See attestation by Dr. Martin Correa for surgical impression and plan. LEONEL Tatum Cardiothoracic Surgery [facility] Cosigned by Martin Correa MD at 09/07/2023 2:29 PM FELT CEMENTER CEMENTER CEMENTER Associated attestation - Martin Correa MD - 09/07/2023 2:29 PM FELT CEMENTER I have seen and examined the patient, reviewed the electronic medical record, personally reviewed the patient's recent transesophageal echocardiogram, and agree with the attached history and physical. In brief, she is an 87-year-old woman with a history of SVT, ablation for SVT, and permanent cardiac pacemaker placement. She reports significant and debilitating exertional dyspnea with mild exertion such as walking 50 ft on the level. She has undergone an extensive workup with transthoracic as well as transesophageal echocardiogram. There was some concern of significant mitral, tricuspid, and aortic valve regurgitation. She has been referred for consideration of further management. She reports no recent hospitalizations for congestive heart failure. ASSESSMENT: 87-year-old woman with significant exertional dyspnea, history of supraventricular tachycardia status post ablation, and history of permanent cardiac pacemaker placement PLAN: I have extensively reviewed the patient's THONY and do not feel that she has valvular lesions that warrant surgical repair or replacement. Her mitral regurgitation seems very mild and her aortic and tricuspid valve leakages are moderate, at worst. Her left ventricular systolic function and dimensionsare normal. No surgical intervention is recommended at this time. The patient will follow up with Dr. Martinez for further recommendations regarding her shortness of breath. I also encouraged her todiscuss her shortness of breath with her primary care physician, Dr. King, who may consider referral to a wind development director. All of the patient's and her daughter's questions were answered to their apparent satisfaction. Martin Correa MD Cardiothoracic Surgery [facility] documented in this encounter Plan of Treatment Not on file documented as of this encounter Visit Diagnoses Diagnosis Nonrheumatic mitral valve regurgitation- Primary Aortic valve insufficiency, etiology of cardiac valve disease unspecified Nonrheumatic tricuspid valve regurgitation documented in this encounter Orders Outpatient Referral Count Last Ordered Date Fir st Ordered Date AMB REFERRAL TO CARDIOTHORACIC SURGERY 1 documented in this encounter Care Teams Weight Caller Relationship Specialty Start Date End Date Nabila King MD [address] [facility] [address] [place] [address] PCP - General Internal Medicine 12/16/20 Christine Kendall MD Surgeon Ophthalmology 12/13/20 Sita Magana MD [address] [facility] [address] [place] [address] Consulting Physician Internal Medicine 12/13/20 Regulo Pandey MD [address] [facility] [address] [place] [address] Referring Physician Cardiovascular Disease 12/16/20 Gigi Méndez MD [address] [facility] [address] [place] [address] Referring Physician Cardiology 02/18/21 Bc Martinez MD [address] [place] [address] Referring Physician Cardiology 08/22/23 Martin Correa MD [address] [place] [address] Consulting Physician Cardiothoracic Surgery 08/22/23 documented as of this encounter
--- OUTSIDE RECORDS SUMMARY | 2024-08-09 17:47 | XMS_ITS | Encounter Summary ---
Author Organization [facility] Healthcare Address [address] [place] [address] Care Team Providers Care Verse Writer Name Role Phone Christine Kendall MD Unavailable [phone] Sita Magana MD Unavailable [phone] Nabila King MD Primary Care Provider [phone] Regulo Pandey MD Unavailable Gigi Méndez MD Unavailable [phone] Bc Martinez MD Unavailable [phone] Encounter Details Date Type Department Care Team (Latest Contact Info) Description 06/26/2023 - 06/26/2023 11:59 PM EMBROIDERY FINISHER Hospital Encounter [facility] - Imaging [phone] Discharge Disposition: Discharge to home or self care Social History Tobacco Use Types Packs/Day Years [...] on file Legal Sex Female 8:14 PM EMBROIDERY FINISHER Gender Identity Not on file Sexual Orientation Not on file 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 Not on file documented as of this encounter Medications at Time of Discharge acetaminophen (TYLENOL) 500 mg tablet Take 1 tablet (500 mg total) by mouth every 6 (six) hours as needed for pain apixaban (ELIQUIS) 2.5 mg tablet 1 tablet (2.5 mg total) 2 (two) times a day dilTIAZem (CARDIZEM) 60 mg tabletIndications :Paroxysmal A-fib (CMS/HCC) (HCC),Palpitation Take 0.5 tablets (30 mg total) by mouth 3 (three) times a day 135 tablet 2 01/10/2023 ketorolac (ACULAR LS) 0.4 % drops Administer 1 drop into both eyes daily 5 mL 05/08/2023 multivitamin capsule Take 1 capsule by mouth daily clobetasoL (TEMOVATE) 0.05 % external solution APPLY SOLUTION TOPICALLY 3 TO 4 TIMES DAILY FOR ITCHY SCALP 05/22/2023 4 levothyroxine (SYNTHROID) 50 mcg tabletIndications :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 Take 1 tablet (50 mcg total) by mouth nightly 90 tablet 2 01/10/2023 3 loteprednol (LOTEMAX) 0.5 % ophthalmic suspension Administer 1 drop into the right eye daily 5 mL 05/08/2023 3 melatonin 5 mg tablet Take 1 tablet (5 mg total) by mouth nightly 4 omega-3/dha/epa/d pa/fish oil (OMEGA-3 2100 ORAL) Take by mouth 3 turmeric root extract 500 mg capsule Take by mouth 3 documented as of this encounter Discharge Disposition Disposition Code Departure Means Destination Discharge to home or self care documented in this encounter Plan of Treatment Not on file documented as of this encounter Procedures Procedure Name Priority Date/Time Associated Diagnosis Comments US TRANSFER OF OUTSIDE FILMS Routine 06/26/2023 12:00 AM EMBROIDERY FINISHER documented in this encounter Results * US Outside Reference (06/26/2023 12:00 AM EMBROIDERY FINISHER) Narrative RAD_PACS_OUTSIDE_FILM_[facility] - 08/24/2023 9:08 AM EMBROIDERY FINISHER This order has been auto-finalized and does not contain a result. us Provider Transcribed Order IMG US PROCEDURES Fin al Result RAD_PACS_OUTSIDE_FILM_[facility] documented in this encounter Visit Diagnoses Not on filedocumented in this encounter Care Teams Verse Writer Relationship Specialty Start Date End Date Nabila King MD [address] [place] [address] PCP - General Internal Medicine 12/16/20 Christine Kendall MD Surgeon Ophthalmology 12/13/20 Sita Magana MD [address] [place] [address] [address] [place] [address] Consulting Physician Internal Medicine 12/13/20 Regulo Pandey MD [address] [place] [address] [address] [place] [address] Referring Physician Cardiovascular Disease 12/16/20 Gigi Méndez MD [address] [place] [address] [address] [place] [address] Referring Physician Cardiology 02/18/21 Bc Martinez MD [address] [place] [address] Consulting Physician Cardiology 10/22/21 08/21/23 documented as of this encounter
--- OUTSIDE RECORDS SUMMARY | 2024-08-09 17:47 | XMS_ITS | Encounter Summary ---
Author Organization [facility] Medical Group Address [address] [facility] [address] [place] [address] Care Team Providers Care Chain Mortiser Operator Name Role Phone Christine Kendall MD Unavailable [phone] Sita Magana MD Unavailable [phone] Nabila King MD Primary Care Provider + [phone] Regulo Pandey MD Unavailable Gigi Méndez MD Unavailable [phone] Bc Martinez MD Unavailable [phone] Encounter Details Date Type Department Care Team (Late st Contact Info) Description 03/02/2022 10:40 AM CDT [facility] [address] [place] [address] Bilateral hip pain Social History Tobacco Use Types Packs/Day Years Used Date Smoking Tobacco: Never Smokeless Tobacco: Never Alcohol Use Standard Drinks/Week Comments No 0 (1 standard drink = 0.6 oz pur e alcohol) PHQ-2 Answer Date Recorded PHQ-2 Total Score (If total score is 3 or more points, staff should administer the PHQ-9) 0 12/16/2020 Comments Unknown Sex and Gender Information Value Date Recorded Sex Assigned at Not on file Legal Sex Female 8:14 PM SERVER 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 Gender Identity Not on file Sexual Orientation Not on file 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 Not on file documented as of this encounter Plan of Treatment Not on file documented as of this encounter Visit Diagnoses Diagnosis Bilateral hip pain Pain in joint, pelvic region and thigh documented in this encounter Care Teams Chain Mortiser Operator Relationship Specialty Start Date End Date Nabila King MD [address] [facility] [facility] [address] [place] [address] PCP - General Internal Medicine 12/16/20 Christine Kendall MD Surgeon Ophthalmology 12/13/20 Sita Magana MD [address] [facility] [facility] [place] [address] Consulting Physician Internal Medicine 12/13/20 Regulo Pandey MD [address] [facility] [facility] [address] [place] [address] Referring Physician Cardiovascular Disease 12/16/20 Gigi Méndez MD [address] [place] [address] Referring Physician Cardiology 02/18/21 Bc Martinez MD [address] [place] [address] Consulting Physician Cardiology 10/22/21 08/21/23 documented as of this encounter
--- OUTSIDE RECORDS SUMMARY | 2024-08-09 17:47 | XMS_ITS | Encounter Summary ---
Author Organization [facility] Medical Group Address [address] [facility] [address] [place] [address] Care Team Providers Care Showplace Manager Name Role Phone Christine Kendall MD Unavailable [phone] Sita Magana MD Unavailable [phone] Nabila King MD Primary Care Provider + [phone] Regulo Pandey MD Unavailable Gigi Méndez MD Unavailable [phone] Bc Martinez MD Unavailable [phone] Reason for Visit * Reason Onset Date Comments Lab Results 04/20/2023 Encounter Details Date Type Department Care Team (Late st Contact Info) Description 04/20/2023 Telephone [facility] [address] [place] [id number] Nabila King MD [address] [place] [address] Lab Results Social History Tobacco Use Types Packs/Day [...] on file Legal Sex Female 8:14 PM STRATEGY LEAD Gender Identity Not on file Sexual Orientation Not on file 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 Informed her of message Nabila King MD Encouraged her to sign up for my chart, the results were sent out to her on my chart in that says that she is on my chart. Everything looks good at the moment on labs Pt aware and has no further questions. * Telephone Encounter - Nabila King MD - 04/20/2023 9:48 PM CDT Encouraged her to sign up for my chart, the results were sent out to her on my chart in that says that she is on my chart. Everything looks good at the moment on labs * Telephone Encounter - Eliu Reynolds RN - 04/20/2023 11:43 AM CDT Pt req 04-11-23 lab results Please advise Cbn#[phone] * Telephone Encounter - Kim Bajwa - 04/20/2023 10:28 AM CDT Patient calling she would like lab results. Cbn: [phone] documented in this encounter Plan of Treatment Not on file documented as of this encounter Visit Diagnoses Not on filedocumented in this encounter Care Teams Showplace Manager Relationship Specialty Start Date End Date Nabila King MD [address] [place] [id number] PCP - General Internal Medicine 12/16/20 Christine Kendall MD Surgeon Ophthalmology 12/13/20 Sita Magana MD [address] [place] [address] Consulting Physician Internal Medicine 12/13/20 Regulo Pandey MD [address] [place] [address] Referring Physician Cardiovascular Disease 12/16/20 Gigi Méndez MD [address] [place] [address] Referring Physician Cardiology 02/18/21 Bc Martinez MD [address] [place] [address] Consulting Physician Cardiology 10/22/21 08/21/23 documented as of this encounter
--- OUTSIDE RECORDS SUMMARY | 2024-08-09 17:47 | XMS_ITS | Encounter Summary ---
Author Organization [facility] Healthcare Address [address] [place] [address] Care Team Providers Care Invoicing Specialist Name Role Phone Christine Kendall MD Unavailable Sita Magana MD Unavailable [phone] Nabila King MD Primary Care Provider [phone] Regulo Pandey MD Unavailable Gigi Méndez MD Unavailable [phone] Bc Martinez MD Unavailable [phone] Encounter Details Date Type Department Care Team (Late st Contact Info) Description 07/25/2023 Orders Only [facility] [address] [place] [address] Scanning, Provider Social History Tobacco [...] on file Legal Sex Female 8:14 PM ROTOR PILOT Gender Identity Not on file Sexual Orientation Not on file 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 Not on file documented as of this encounter Plan of Treatment Not on file documented as of this encounter Procedures Procedure Name Priority Date/Time Associated Diagnosis Comments CARDIOLOGY DOCUMENT SCAN 07/25/2023 documented in this encounter Results * CARDIOLOGY DOCUMENT SCAN (07/25/2023) Anatomical Region Laterality Modality Other us Provider Scanning CV CARDIAC SERVICES PROCEDURES Final Result documented in this encounter Visit Diagnoses Not on filedocumented in this encounter Care Teams Invoicing Specialist Relationship Specialty Start Date End Date Nabila King MD [address] [facility] [address] [place] [address] PCP - General Internal Medicine 12/16/20 Christine Kendall MD Surgeon Ophthalmology 12/13/20 Sita Magana MD [address] [facility] [address] [facility] [address] [place] [address] Consulting Physician Internal Medicine 12/13/20 Regulo Pandey MD [address] [facility] [address] [address] [place] [address] Referring Physician Cardiovascular Disease 12/16/20 Gigi Méndez MD [address] [facility] [address] [place] [address] Referring Physician Cardiology 02/18/21 Bc Martinez MD [address] [place] [address] Consulting Physician Cardiology 10/22/21 08/21/23 documented as of this encounter
--- OUTSIDE RECORDS SUMMARY | 2024-08-09 17:47 | XMS_ITS | Encounter Summary ---
Author Organization [facility] Healthcare Address [address] [place] [address] Care Team Providers Care Intellectual Property Legal Assistant Name Role Phone FaizaChristine mak MD Unavailable [phone] Sita Magana MD Unavailable [phone] Nabila King MD Primary Care Provider [phone] Regulo Pandey MD Unavailable [facility] MD Unavailable [phone] Bc Martinez MD Unavailable [phone] Bc Martinez MD Unavailable [phone] Martin Correa MD Unavailable [phone] [facility] Si, MD Unavailable Encounter Details Date Type Department Care Team (Late st Contact Info) Description 06/26/2023 Orders Only [facility] [address] [place] [address] Scanning, Provider Social History Tobacco [...] on file Legal Sex Female 8:14 PM RADIOLOGY NURSE Gender Identity Not on file Sexual Orientation Not on file 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 Not on file documented as of this encounter Plan of Treatment Not on file documented as of this encounter Procedures Procedure Name Priority Date/Time Associated Diagnosis Comments CARDIOLOGY DOCUMENT SCAN 06/26/2023 documented in this encounter Results * CARDIOLOGY DOCUMENT SCAN (06/26/2023) Anatomical Region Laterality Modality Other us Provider Scanning CV CARDIAC SERVICES PROCEDURES Final Result documented in this encounter Visit Diagnoses Not on filedocumented in this encounter Care Teams Intellectual Property Legal Assistant Relationship Specialty Start Date End Date Nabila King MD [address] [facility] [address] [place] [address] PCP - General Internal Medicine 12/16/20 Christine Kendall MD Surgeon Ophthalmology 12/13/20 Sita Magana MD [address] [place] [address] [address] [place] [address] Consulting Physician Internal Medicine 12/13/20 Regulo Pandey MD [address] [place] [address] [address] [place] [address] Referring Physician Cardiovascular Disease 12/16/20 Gigi Méndez MD [address] [place] [address] [address] [place] [address] Referring Physician Cardiology 02/18/21 Bc Martinez MD [address] [place] [address] Consulting Physician Cardiology 10/22/21 08/21/23 Bc Martinez MD [address] [facility] [place] [address] Referring Physician Cardiology 08/22/23 Martin Correa MD [address] [place] [address] Consulting Physician Cardiothoracic Surgery 08/22/23 [facility] Si, MD [address] [address] Consulting Physician Neurology 07/09/24 documented as of this encounter
--- OUTSIDE RECORDS SUMMARY | 2024-08-09 17:47 | XMS_ITS | Encounter Summary ---
Author Organization [facility] Medical Group Address [address] [facility] [address] [place] [address] Care Team Providers Care Component Technician Name Role Phone Christine Kendall MD Unavailable [phone] Sita Magana MD Unavailable [phone] Nabila King MD Primary Care Provider + [phone] Regulo Pandey MD Unavailable Gigi Méndez MD Unavailable [phone] Bc Martinez MD Unavailable [phone] Encounter Details Date Type Department Care Team (Late st Contact Info) Description 07/11/2022 Telephone [place] [facility] [address] [place] [address] Jolene Carson, RN Social History Tobacco Use Types Packs/Day [...] on file Legal Sex Female 8:14 PM ORNAMENTAL METAL WORKER Gender Identity Not on file Sexual Orientation Not on file 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 Not on file documented as of this encounter Miscellaneous Notes * Telephone Encounter - Jolene Carson RN - 07/11/2022 1:35 PM CST error MENTAL METAL WORKER documented in this encounter Plan of Treatment Not on file documented as of this encounter Visit Diagnoses Not on filedocumented in this encounter Care Teams Component Technician Relationship Specialty Start Date End Date Nabila King MD [address] [facility] [address] [place] [address] PCP - General Internal Medicine 12/16/20 Christine Kendall MD Surgeon Ophthalmology 12/13/20 Sita Magana MD [address] [facility] [address] [place] [address] Consulting Physician Internal Medicine 12/13/20 Regulo Pandey MD [address] [place] [address] Referring Physician Cardiovascular Disease 12/16/20 Gigi Méndez MD [address] [facility] [address] [place] [address] Referring Physician Cardiology 02/18/21 Bc Martinez MD [address] [place] [address] Consulting Physician Cardiology 10/22/21 08/21/23 documented as of this encounter
--- OUTSIDE RECORDS SUMMARY | 2024-08-09 17:47 | XMS_ITS | Encounter Summary ---
Author Organization [facility] Healthcare Address [address] [place] [address] Care Team Providers Care Law Office Assistant Name Role Phone Christine Kendall MD Unavailable [phone] Sita Magana MD Unavailable [phone] Nabila King MD Primary Care Provider + [phone] Regulo Pandey MD Unavailable Gigi Méndez MD Unavailable [phone] Bc Martinez MD Unavailable [phone] Martin Correa MD Unavailable [phone] Encounter Details Date Type Department Care Team (Late st Contact Info) Description 09/20/2023 Telephone [facility] [address] [place] [address] Luciano King MD [address] [address] Social History Tobacco Use Types Packs/Day Years [...] on file Legal Sex Female 8:14 PM ENVIRONMENTAL MAINTENANCE WORKER Gender Identity Not on file Sexual Orientation Not on file 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 She is seeing Dr Martinez tomorrow for follow up et will ask about treatment for the sleep apnea. She knows to call back if needed. RONMENTAL MAINTENANCE WORKER * Telephone Encounter - Nabila King MD - 09/20/2023 7:18 PM ENVIRONMENTAL MAINTENANCE WORKER September 20, 2023: Moderate RUDY Confirmed on sleep study ordered by Dr. Martinez 2023. Refer to / or [facility] sleep study shows an AH eye of 28.8 which is consistent with moderate RUDY. During the supine position the HI increases to 53.1. Mean oxygen saturation of 92% with the lowest being 82% the patient spent 4.6 minutes at or below 88% Looks like it was not note from Dr. Young but it is a note from me Dr. Nabila King RONMENTAL MAINTENANCE WORKER * Telephone Encounter - Luciano King MD - 09/20/2023 6:39 PM CST Moderate obstructive sleep apnea on this report which was placed in my results folder in error. RONMENTAL MAINTENANCE WORKER documented in this encounter Plan of Treatment Not on file documented as of this encounter Visit Diagnoses Not on filedocumented in this encounter Care Teams Law Office Assistant Relationship Specialty Start Date End Date Nabila King MD [address] [place] [address] [address] [place] [address] PCP - General Internal Medicine 12/16/20 Christine Kendall MD Surgeon Ophthalmology 12/13/20 Sita Magana MD [address] [place] [address] [address] [place] [address] Consulting Physician Internal Medicine 12/13/20 Regulo Pandey MD [address] [place] [address] [address] [place] [address] Referring Physician Cardiovascular Disease 12/16/20 Gigi Méndez MD [address] [place] [address] [address] [place] [address] Referring Physician Cardiology 02/18/21 Bc Martinez MD [address] [place] [address] Referring Physician Cardiology 08/22/23 Martin Correa MD [address] [place] [address] Consulting Physician Cardiothoracic Surgery 08/22/23 documented as of this encounter
--- OUTSIDE RECORDS SUMMARY | 2024-08-09 17:47 | XMS_ITS | Encounter Summary ---
Author Organization [facility] Address [address] [place] [address] Phone Care Team Providers Care Engineer Design And Construction Name Role Phone Christine Kendall MD Unavailable [phone] Sita Magana MD Unavailable [phone] Nabila King MD Primary Care Provider [phone] Regulo Pandey MD Unavailable Gigi Méndez MD Unavailable [phone] Bc Martinez MD Unavailable [phone] Encounter Details Date Type Department Care Team (Late st Contact Info) Description 03/16/2022 Telephone [facility] Ophthalmology [address] 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 I could not leave a message because no machine came on to let me do that. I left a message for her daughter to letthe patient know where to come Monday for the appointment. documented in this encounter Plan of Treatment Not on file documented as of this encounter Visit Diagnoses Not on filedocumented in this encounter Care Teams Engineer Design And Construction Relationship Specialty Start Date End Date Nabila King MD [address] [facility] [address] [place] [address] PCP - General Internal Medicine 12/16/20 Christine Kendall MD Surgeon Ophthalmology 12/13/20 Sita Magana MD [address] [facility] [address] [place] [address] Consulting Physician Internal Medicine 12/13/20 Regulo Pandey MD [address] [place] [address] Referring Physician Cardiovascular Disease 12/16/20 Gigi Méndez MD [address] [facility] [address] [place] [address] Referring Physician Cardiology 02/18/21 Bc Martinez MD [address] [place] [address] Consulting Physician Cardiology 10/22/21 08/21/23 documented as of this encounter
--- OUTSIDE RECORDS SUMMARY | 2024-08-09 17:47 | XMS_ITS | Encounter Summary ---
Author Organization [facility] Medical Group Address [address] [facility] [address] [place] [address] Care Team Providers Care Senior Mobile Solutions Architect Name Role Phone Christine Kendall MD Unavailable [phone] Sita Magana MD Unavailable [phone] Nabila King MD Primary Care Provider + [phone] Regulo Pandey MD Unavailable Gigi Méndez MD Unavailable [phone] Bc Martinez MD Unavailable [phone] Encounter Details Date Type Department Care Team (Late st Contact Info) Description 03/04/2022 Telephone [facility] [address] [place] [address] Elizabeth Daniels, ROSE GROWER [address] [place] [address] Social History Tobacco Use Types Packs/Day Years [...] on file Legal Sex Female 8:14 PM PLATFORM INSPECTOR Gender Identity Not on file Sexual Orientation Not on file 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 Not on file documented as of this encounter Miscellaneous Notes * Telephone Encounter - Jolene Carson RN - 03/04/2022 12:27 PM CDT Called and informed the pt of the message She verbalized understanding and will call us back with any questions or problems * Telephone Encounter - Elizabeth Daniels NP - 03/04/2022 7:48 AM CDT Please let her know that her inflammatory markers were normal this is most likely d/t her arthritis/DDD in back documented in this encounter Plan of Treatment Not on file documented as of this encounter Visit Diagnoses Not on filedocumented in this encounter Care Teams Senior Mobile Solutions Architect Relationship Specialty Start Date End Date Nabila King MD [address] [facility] [address] [place] [address] PCP - General Internal Medicine 12/16/20 Christine Kendall MD Surgeon Ophthalmology 12/13/20 Sita Magana MD [address] [place] [address] Consulting Physician Internal Medicine 12/13/20 Regulo Pandey MD [address] [place] [address] Referring Physician Cardiovascular Disease 12/16/20 Gigi Méndez MD [address] [place] [address] Referring Physician Cardiology 02/18/21 Bc Martinez MD [address] [place] [address] Consulting Physician Cardiology 10/22/21 08/21/23 documented as of this encounter
--- OUTSIDE RECORDS SUMMARY | 2024-08-09 17:47 | XMS_ITS | Encounter Summary ---
Author Organization [facility] Healthcare Address [address] [place] [address] Care Team Providers Care Occupational Therapy Asst Name Role Phone Christine Kendall MD Unavailable [phone] Sita Magana MD Unavailable [phone] Nabila King MD Primary Care Provider + [phone] Regulo Pandey MD Unavailable Gigi Méndez MD Unavailable [phone] Bc Martinez MD Unavailable [phone] Martin Correa MD Unavailable [phone] Encounter Details Date Type Department Care Team (Late st Contact Info) Description 08/22/2023 Orders Only Cardiovascular and Thoracic Surgery [address] [facility] [address] [place] [address] Haily Go, JASON [address] [facility] [address] [place] [address] 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) Social History Tobacco Use Types [...] on file 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 Gender Identity Not on file Sexual Orientation Not on file 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 Not on file documented as of this encounter Plan of Treatment Not on file documented as of this encounter Visit Diagnoses Diagnosis Nonrheumatic aortic insufficiency with aortic stenosis- Primary documented in this encounter Care Teams Occupational Therapy Asst Relationship Specialty Start Date End Date Nabila King MD [address] [place] [address] PCP - General Internal Medicine 12/16/20 Christine Kendall MD Surgeon Ophthalmology 12/13/20 Sita Magana MD [address] [place] [address] Consulting Physician Internal Medicine 12/13/20 Regulo Pandey MD [address] [place] [address] Referring Physician Cardiovascular Disease 12/16/20 Gigi Méndez MD [address] [place] [address] Referring Physician Cardiology 02/18/21 Bc Martinez MD [address] [place] [address] Referring Physician Cardiology 08/22/23 Martin Correa MD [address] [place] [address] Consulting Physician Cardiothoracic Surgery 08/22/23 documented as of this encounter
--- OUTSIDE RECORDS SUMMARY | 2024-08-09 17:47 | XMS_ITS | Encounter Summary ---
Author Organization [facility] Address [address] [place] [address] Phone Care Team Providers Care Warehouse Receiver Name Role Phone Christine Kendall MD Unavailable [phone] Sita Magana MD Unavailable [phone] Nabila King MD Primary Care Provider [phone] Regulo Pandey MD Unavailable Gigi Méndez MD Unavailable [phone] Bc Martinez MD Unavailable [phone] Reason for Visit * Diagnostic Imaging (Routine) - Closed Specialty Diagnoses / Procedures Referred By Contac t Referred To Contact Diagnoses Low-tension glaucoma, bilateral, severe stage Procedures OCT, Optic Nerve - OU - Both Eyes Christine Kendall MD [facility] OPHTHALMOLOGY, [address] [place] [address] Phone: tel: fax: [facility] (All Locations) Referral ID Status Reason Start Date Expiration Date Visits Re quested Visits Authorized [id number] Closed 05/08/2023 06/06/2024 1 1 Encounter Details Date Type Department Care Team (Late st Contact Info) Description 05/08/2023 9:50 AM CDT Imaging Exam [facility] Ophthalmology [address] 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 Not on file documented as of this encounter Plan of Treatment Not on file documented as of this encounter Procedures Procedure Name Priority Date/Time Associated Diagnosis Comments OCT, OPTIC NERVE - OU - BOTH EYES Routine 05/08/2023 10:08 AM CDT Low-tension glaucoma, bilateral, severe stage documented in this encounter Results * OCT, Optic Nerve - OU - [...] right eye (OD) > left eye (OS) us Christine Kendall MD OPHTH TOMOGRAPHY Final R esult documented in this encounter Visit Diagnoses Diagnosis Low-tension glaucoma, bilateral, severe stage documented in this encounter Care Teams Warehouse Receiver Relationship Specialty Start Date End Date Nabila King MD [address] [facility] [place] [address] PCP - General Internal Medicine 12/16/20 Christine Kendall MD Surgeon Ophthalmology 12/13/20 Sita Magana MD [address] [facility] [address] [place] [address] Consulting Physician Internal Medicine 12/13/20 Regulo Pandey MD [address] [place] [address] [address] [place] [address] Referring Physician Cardiovascular Disease 12/16/20 Gigi Méndez MD [address] [place] [address] [address] [place] [address] Referring Physician Cardiology 02/18/21 Bc Martinez MD [address] [place] [address] Consulting Physician Cardiology 10/22/21 08/21/23 documented as of this encounter
--- OUTSIDE RECORDS SUMMARY | 2024-08-09 17:47 | XMS_ITS | Encounter Summary ---
Author Organization [facility] Address [address] [facility] [address] [place] [address] Care Team Providers Care Alterations Manager Name Role Phone Christine Kendall MD Unavailable [phone] Sita Magana MD Unavailable [phone] Nabila King MD Primary Care Provider + [phone] Regulo Pandey MD Unavailable Gigi Méndez MD Unavailable [phone] Bc Martinez MD Unavailable [phone] Reason for Visit * Reason Onset Date Comments would like results of tsh 07/11/2022 Encounter Details Date Type Department Care Team (Late st Contact Info) Description 07/11/2022 Telephone [facility] [address] [place] [id number] Nabila King MD [address] [place] [address] would like results of tsh Social History Tobacco Use Types Packs/Day Years [...] on file Legal Sex Female 8:14 PM CIRCULATION MAN Gender Identity Not on file Sexual Orientation Not on file 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 Cbn: [phone] ULATION MAN documented in this encounter Plan of Treatment Not on file documented as of this encounter Visit Diagnoses Not on filedocumented in this encounter Care Teams Alterations Manager Relationship Specialty Start Date End Date Nabila King MD [address] [place] [address] [address] [place] [address] PCP - General Internal Medicine 12/16/20 Christine Kendall MD Surgeon Ophthalmology 12/13/20 Sita Magana MD [address] [place] [address] [address] [place] [address] Consulting Physician Internal Medicine 12/13/20 Regulo Pandey MD [facility] [place] [address] Referring Physician Cardiovascular Disease 12/16/20 Gigi Méndez MD [address] [place] [address] Referring Physician Cardiology 02/18/21 Bc Martinez MD [address] [place] [address] Consulting Physician Cardiology 10/22/21 08/21/23 documented as of this encounter
--- OUTSIDE RECORDS SUMMARY | 2024-08-09 17:47 | XMS_ITS | Encounter Summary ---
Author Organization [facility] Address [address] [place] [address] Phone Care Team Providers Care Rehabilitation Team Lead Name Role Phone Christine Kendall MD Unavailable [phone] Sita Magana MD Unavailable [phone] Nabila King MD Primary Care Provider [phone] Regulo Pandey MD Unavailable Gigi Méndez MD Unavailable [phone] Bc Martinez MD Unavailable [phone] Encounter Details Date Type Department Care Team (Late st Contact Info) Description 03/18/2022 10:30 AM CDT Office Visit [facility] Ophthalmology [address] 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 Not on file documented as of this encounter Progress Notes * Christine Kendall MD - 03/18/2022 10:30 AM CDT Assessment/Plan Diagnoses and all orders for this visit: Low-tension glaucoma, bilateral, severe stage (Primary) Assessment & Plan: intraocular pressure (IOP) acceptable off meds status post (s/p) Trab both eyes (OU) Dyer visual field (HVF) without change F/U 8 months with DFE Orders: - Dyer Visual Field - OU - Both Eyes Pseudophakia Assessment & Plan: Recommend MRx with local director of global talent Nuclear senile cataract, right Assessment & Plan: Not VS- observe documented in this encounter Miscellaneous Notes * Assessment & Plan Note - Christine Kendall MD - 03/18/2022 11:46 AM CDT Associated Problem(s): Age-related nuclear cataract of right eye Not VS- observe * Assessment & Plan Note - Christine Kendall MD - 03/18/2022 11:46 AM CDT Associated Problem(s): Pseudophakia (Resolved 04/10/2022) Recommend MRx with local director of global talent * Assessment & Plan Note - Christine Kendall MD - 03/18/2022 11:45 AM CDT Associated Problem(s): Low-tension glaucoma, bilateral, severe stage intraocular pressure (IOP) acceptable off meds status post (s/p) Trab both eyes (OU) Dyer visual field (HVF) without change F/U 8 months with DFE documented in this encounter Plan of Treatment Not on file documented as of this encounter Procedures Procedure Name Priority Date/Time Associated Diagnosis Comments DYER VISUAL FIELD - OU - BOTH EYES Routine 03/18/2022 10:43 AM CDT Low-tension glaucoma, bilateral, severe stage documented in this encounter Results * Dyer Visual Field - OU - Both Eyes (03/18/2022 10:43 AM CDT) Pattern Deviation OS 13.47 CONTINUUM Pattern Deviation OD 10.05 CONTINUUM Mean Deviation OS -12.43 CONTINUUM Mean Deviation OD -10.85 CONTINUUM Anatomical Region Laterality Modality Head Visual Field Narrative 03/18/2022 11:41 AM CDT Right Eye Fixation was good. Cooperation was good. Reliability was good. Progression has been stable. Foveal threshold was reduced. Findings include inferior arcuate defect. Mean Deviation was -10.85. Pattern Deviation was 10.05. Left Eye Fixation was good. Cooperation was good. Reliability was good. Progression has been stable. Foveal threshold was normal. Findings include inferior arcuate defect. Mean Deviation was -12.43. Pattern Deviation was 13.47. us Christine Kendall MD OPHTH VISUAL FIELD Final Result documented in this encounter Visit Diagnoses Diagnosis Low-tension glaucoma, bilateral, severe stage- Primary Pseudophakia Lens replaced by other means Nuclear senile cataract, right documented in this encounter Eye Exam Visual Acuity (Snellen - Linear) Right eye Left eye Dist sc 20/50 -2 20/40 Dist ph sc 20/25 20/20 Tonometry (Applanation, 11:44 AM) Right eye Left eye Pressure 10 10 By CJS Pupils Dark Shape React Right eye 6 Round NR Left eye 5 Round Minimal Visual Sung See HVF Test OU 24-2 Neuro/Psych Oriented x3: Yes Mood/Affect: Normal External Exam Right eye Left eye External [...] Nuclear sclerosis Posterior c hamber intraocular lens Vitreous Vitreous syneresis Vitreous syne resis Fundus Exam Right eye Left eye Disc no disc hemorrhage no disc hemor rhage C/D Ratio 1.0 0.95 Care Teams Rehabilitation Team Lead Relationship Specialty Start Date End Date Nabila King MD [address] [place] [address] PCP - General Internal Medicine 12/16/20 Christine Kendall MD Surgeon Ophthalmology 12/13/20 Sita Magana MD [address] [place] [address] [address] [place] [address] Consulting Physician Internal Medicine 12/13/20 Regulo Pandey MD [address] [place] [address] [address] [place] [address] Referring Physician Cardiovascular Disease 12/16/20 Gigi Méndez MD [address] [place] [address] [address] [place] [address] Referring Physician Cardiology 02/18/21 Bc Martinez MD [address] [place] [address] Consulting Physician Cardiology 10/22/21 08/21/23 documented as of this encounter
--- OUTSIDE RECORDS SUMMARY | 2024-08-09 17:47 | XMS_ITS | Encounter Summary ---
Author Organization [facility] Address [address] [facility] [address] [place] [address] Care Team Providers Care Soap Grinder Name Role Phone Christine Kendall MD Unavailable [phone] Sita Magana MD Unavailable [phone] Nabila King MD Primary Care Provider + [phone] Regulo Pandey MD Unavailable Gigi Méndez MD Unavailable [phone] Bc Martinez MD Unavailable [phone] Reason for Visit * Diagnostic Imaging (Routine) - Closed Specialty Diagnoses / Procedures Referred By John bojorquez Referred To Contact Diagnoses Chronic bilateral low back pain with left-sided sciatica Procedures XR Hips Bilateral W Pelvis 3 or 4 Views XR Hips Bilateral 2 Views W Pelvis [place], Elizabeth Josue, HEALTH PHYSICIST [address] [place] [address] Phone: tel: [facility] Referral ID Status Reason Start Date Expiration Date Visits Re quested Visits Authorized [id number] Closed 03/02/2022 04/01/2023 1 1 Encounter Details Date Type Department Care Team (Latest Contact Info) Description 03/02/2022 10:30 AM CDT Ancillary Procedure [facility] [address] [place] [address] Chronic bilateral low back pain with left-sided sciatica Social History Tobacco Use Types Packs/Day Years [...] on file 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 Gender Identity Not on file Sexual Orientation Not on file 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 Not on file documented as of this encounter Plan of Treatment Not on file documented as of this encounter Procedures Procedure Name Priority Date/Time Associated Diagnosis Comments XR HIPS BILATERAL 3 OR 4 VIEWS W PELVIS Schedule Routine, Read Routine (OP Routine) 03/02/2022 10:32 AM CDT Chronic bilateral low back pain with left-sided sciatica documented in this encounter Results * XR Hips Bilateral W Pelvis 3 or 4 Views (03/02/2022 10:32 AM CDT) Anatomical Region Laterality Modality Lower Extremities, Hip, Pelvis Bilateral C omputed Radiography Narrative 03/02/2022 2:15 PM CDT PELVIS: Examination of the AP pelvis and bilateral hips fails to reveal radiographic evidence of fracture, dislocation, bony destruction, or bony production. ??There is no degenerative or erosive arthropathy visualized. ?? No aseptic necrosis or foreign body is identified. ??If clinical symptoms persist or worsen, then follow-up x-rays in 7-10 days is suggested to exclude an occult fracture. SUMMARY: No radiographic evidence of bone or joint disease. Elizabeth Daniels HEALTH PHYSICIST IMG XR PROCEDURES Final Result documented in this encounter Visit Diagnoses Diagnosis Chronic bilateral low back pain with left-sided sciatica documented in this encounter Care Teams Soap Grinder Relationship Specialty Start Date End Date Nabila King MD [address] [place] [address] [facility] [address] [place] [address] PCP - General Internal Medicine 12/16/20 Christine Kendall MD Surgeon Ophthalmology 12/13/20 Sita Magana MD [address] [place] [address] Consulting Physician Internal Medicine 12/13/20 Regulo Pandey MD [address] [place] [address] [address] [place] [address] Referring Physician Cardiovascular Disease 12/16/20 Gigi Méndez MD [address] [place] [address] [address] [place] [address] Referring Physician Cardiology 02/18/21 Bc Martinez MD [address] [place] [address] Consulting Physician Cardiology 10/22/21 08/21/23 documented as of this encounter
--- OUTSIDE RECORDS SUMMARY | 2024-08-09 17:47 | XMS_ITS | Encounter Summary ---
Author Organization [facility] Address [address] [place] [address] Care Team Providers Care Hydraulic Oil Tool Operator Name Role Phone Christine Kendall MD Unavailable [phone] Sita Magana MD Unavailable [phone] Nabila King MD Primary Care Provider [phone] Regulo Pandey MD Unavailable Gigi Méndez MD Unavailable [phone] Bc Martinez MD Unavailable [phone] Reason for Referral * Diagnostic Imaging (Routine) - Closed Specialty Diagnoses / Procedures Referred By John t Referred To Contact Diagnoses Senile osteoporosis Procedures Dexa Axial Skeleton Bone Density 1 or 2 Site Nabila King MD [address] [place] [address] Phone: tel: fax: [facility] (All Locations) Referral ID Status Reason Start Date Expiration Date Visits Re quested Visits Authorized [id number] Closed 11/15/2022 12/15/2023 1 1 Encounter Details Date Type Department Care Team (Late st Contact Info) Description 11/15/2022 Telephone [facility] [address] [place] [id number] Nabila King MD [address] [place] [address] Social History Tobacco Use Types Packs/Day Years [...] on file 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 Gender Identity Not on file Sexual Orientation Not on file 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 ?? Based on machine cross-calibration and precision studies the least significant changes of this densitometer is 0.024 g/cm2 at the spine, 0.020 g/cm2 at the total proximal femur, and 0.014g/cm2 at the forearm. HISTORY: This is a 87 y.o. postmenopausal female with a history of osteoporosis and thyroid disease. She reports that she has never smoked. She has never used smokeless tobacco. Currently on treatment with vitamin D, anticoagulants, and thyroid hormone, previously treated with alendronate (Fosamax), risedronate (Actonel), ibandronate (Boniva), and hormone replacement therapy, and current complaint of back pain and leg pain. INDICATIONS: Menopause status and history of osteoporosis. FINDINGS: BONE MINERAL DENSITY OF THE LUMBAR SPINE Bone Mineral Density (BMD) of the lumbar spine was measured from L1-L4 and the average density was calculated to be 0.811 gm/cm2. This corresponds to a T-score (standard deviations from the mean of young adults) of -2.1. When compared to the previous study of 01/31/2019 there has been no significant changes in bone density. BONE MINERAL DENSITY OF THE PROXIMAL FEMUR Bone Mineral Density (BMD) of the left hip total was found to be 0.813 gm/cm2. This corresponds to a T-score standard deviations from the mean of young adults of -1.1. Femoral neck is 0.665 gm/cm2 with a T-score (standard deviations from the mean of young adults) of -1.7. When compared to the previous study of 01/31/2019 there has been no significant changes in bone density. SUMMARY: Bone mineral density shows evidence of low bone mass at the lumbar spine and proximal femur and moderately increased fracture risk (Osteopenia). There has been no significant changes in bone density since previous measurement. ADDITIONAL COMMENTS: Postmenopausal Women and Men Over 50: Diagnostic criteria: Osteoporosis: BMD at or below -2.5 T-score; Osteopenia (low bone mass): BMD between -1.0 and -2.5 T-score. If the patient has a history of a fragility fracture, a fracture that occurred with trauma equivalent to a fall from a standing position or less, then the diagnosis is osteoporosis regardless of bone density. The history and data sections of the bone mineral density scan were prepared by Tona Mukherjee (R)(CBDT) who is accredited by the International Society of Clinical Densitometry. The overall patient assessment and scan interpretation were performed by Mike Moreno M.D. who is certified by the International Society of Clinical Densitometry. [id number] Nabila King MD IMG DXA PROCEDURES Final R esult documented in this encounter Visit Diagnoses Diagnosis Senile osteoporosis- Primary Osteopenia of multiple sites- Primary Senile osteoporosis Postmenopause Asymptomatic postmenopausal status (age-related) (natural) documented in this encounter Care Teams Hydraulic Oil Tool Operator Relationship Specialty Start Date End Date Nabila King MD [address] [place] [address] PCP - General Internal Medicine 12/16/20 Christine Kendall MD Surgeon Ophthalmology 12/13/20 Sita Magana MD [address] [place] [address] Consulting Physician Internal Medicine 12/13/20 Regulo Pandey MD [address] [place] [address] [address] [place] [address] Referring Physician Cardiovascular Disease 12/16/20 Gigi Méndez MD [address] [place] [address] [address] [place] [address] Referring Physician Cardiology 02/18/21 Bc Martinez MD [address] [place] [address] Consulting Physician Cardiology 10/22/21 08/21/23 documented as of this encounter
--- OUTSIDE RECORDS SUMMARY | 2024-08-09 17:47 | XMS_ITS | Encounter Summary ---
Author Organization [facility] Address [address] [place] [id number] Care Team Providers Care Field Crop Grower Name Role Phone Christine Kendall MD Unavailable [phone] Sita Magana MD Unavailable [phone] Nabila King MD Primary Care Provider + [phone] Regulo Pandey MD Unavailable Gigi Méndez MD Unavailable [phone] Bc Martinez MD Unavailable [phone] Reason for Visit * Reason Comments Annual Exam Encounter Details Date Type Department Care Team (Late st Contact Info) Description 08/10/2023 8:40 AM FOOD AND BEVERAGE ASSISTANT MANAGER Office Visit [facility] [address] [place] [address] Nabila King MD [address] [address] Annual physical exam (Primary Dx); 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; History of osteoporosis; Pre-ulcerative calluses; Overflow diarrhea; Dental disorder; Acute on chronic diastolic heart failure (CMS/HCC) (HCC); Aortic valve insufficiency, etiology of cardiac valve disease unspecified; Sick sinus syndrome (CMS/HCC) (HCC); Presence of cardiac pacemaker; Ventricular septal defect (VSD); Ventricular tachycardia (HCC); Low-tension glaucoma, bilateral, severe stage; History of adenomatous polyp of colon; Prosthetic cardiac valve vegetation, sequela; Immunization counseling; Multiple-type hyperlipidemia Social History Tobacco Use Types Packs/Day Years [...] on file Legal Sex Female 8:14 PM FOOD AND BEVERAGE ASSISTANT MANAGER Gender Identity Not on file Sexual Orientation Not on file 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 Not on file documented as of this encounter Last Filed Vital Signs Vital Sign Reading Time Taken Comments Blood Pressure 124/74 08/10/2023 8:41 AM FOOD AND BEVERAGE ASSISTANT MANAGER Pulse 81 08/10/2023 8:41 AM FOOD AND BEVERAGE ASSISTANT MANAGER Temperature 36.2 ??C (97.1 ??F) 08/10/2023 8:41 AM CS T Respiratory Rate 20 08/10/2023 8:41 AM FOOD AND BEVERAGE ASSISTANT MANAGER Oxygen Saturation 97% 08/10/2023 8:41 AM FOOD AND BEVERAGE ASSISTANT MANAGER Inhaled Oxygen Concentration - - Weight 54.4 kg (120 lb) 08/10/2023 8:41 AM FOOD AND BEVERAGE ASSISTANT MANAGER Height 165.1 cm (5' 5 ) 08/10/2023 8:41 AM FOOD AND BEVERAGE ASSISTANT MANAGER Body Mass Index 19.97 08/10/2023 8:41 AM FOOD AND BEVERAGE ASSISTANT MANAGER documented in this encounter Patient Instructions * Patient Instructions* Nabila King MD - 08/10/2023 8:40 AM FOOD AND BEVERAGE ASSISTANT MANAGER ORDERS FOR AMS STAFF TO ARRANGE: 1. Please have the MA put the diltiazem underneath Dr. Martinez name and remove my name from the prescription 2. Labs for six-month follow-up = LDL, chemistry profile, CBC, ESR, free T4 and TSH = Libman Sacks vegetations, hypothyroid adult RECOMMENDATIONS FOR Lisa Conn TO CONSIDER: I recommend www.NLM,NIH.GOV/MEDLINEPLUS = the National library of medicine online site. This is a consistently reliable site for your personal medical research. Please Review your AVS for accuracy & contact me if you find need for changes. Birkenstock arches for all shoes and slippers, just get 1 pair and switch around with whatever yourwhere but always stay in the shoe to keep the callus from coming in the middle of the forefoot Silicone sleeves for the calluses and corns, have generic order these on [employer] 1, 2, 3 lbs upper core weightlifting strength training doing the exercises we reviewed today 20 exercises repeat x3 minimum 3 days weekly Metamucil fiber bar cookie, eat 1/2 cookie daily to avoid overflow diarrhea from the constipation problems from the medicines for heart IMMUNIZATIONS recommendations Go to the pharmacy to get this vaccine today otherwise everything is up-to-date RSV vaccine To keep up with emerging viruses and COVID science evidence I recommend the podcast TWIV episodes posted every Monday are with Dr. Jonathon Boyce and talk about COVID PLANNING FOR possible COVID INFECTIONS Be certain that you have been immunized, full immunization for COVID = 3 total COVID shots Testing and evaluation for COVID if you get a cold = runny nose plus sore throat could be COVID -day 0 = Onset of symptoms = sore throat, runny nose, cough -day 1. = perform a Nasal COVID test on the morning of day 1 and if POSITIVE call the office for medication- [ available ] -if negative test again in 48 hours= on day 4 -day 2. And 3 No testing is done on day 2 or 3 -day 4 = perform a Nasal COVID test on morning of day 4 and if POSITIVE call the office for medication- [ available ] , if negative no further testing as needed. there are medication treatments for COVID Paxlovid is the highly effective antiviral used to treat COVID most patients can use this medicine. If you have chronic kidney disease there are limited options for treatment. We would plan remdesivir infusion daily for 3 days or less effective MOLNUPIRAVIR 800 MG BID X 5D pills should you become ill with COVID-19. This will require transportation to [facility] daily for 3 days to complete your course ofcare PLANNING FOR possible INFLUENZA INFECTIONS Take your yearly flu shot in May, [ We take the flu shot to prevent dying from Influenza = the flu. ] Influenza causes fever and muscle aches. If you have these symptoms you will need to go to the Office or a [facility] care clinic for testing Antiviral therapy = Tamiflu= is available but needs to be started within the 1st 24-72 hours of symptoms. Please be evaluated immediately if you have these symptoms. 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 Patient ID: Lisa Conn is a 87 y.o. female. Lisa Conn presents for annual wellness examination and follow-up of her acute and chronic medical concerns PLAN : ORDERS TO BE REVIEWED WITH her AT FOLLOW-UP VISIT: No follow-ups on file. . Orders successfully placed before signing the note: Orders Placed This Encounter Procedures Cholesterol, LDL, direct Comprehensive metabolic panel CBC with auto differential Erythrocyte sedimentation rate T4, free TSH Patient Instructions ORDERS FOR AMS STAFF TO ARRANGE: 1. Please have the MA put the diltiazem underneath Dr. Martinez name and remove my name from the prescription 2. Labs for six-month follow-up = LDL, chemistry profile, CBC, ESR, free T4 and TSH = Emily Paul vegetations, hypothyroid adult RECOMMENDATIONS FOR Lisa Conn TO CONSIDER: I recommend www.NLM,NIH.GOV/MEDLINEPLUS = the [employer] library of medicine online site. This is a consistently reliable site for your personal medical research. Please Review your AVS for accuracy & contact me if you find need for changes. Birkenstock arches for all shoes and slippers, just get 1 pair and switch around with whatever yourwhere but always stay in the shoe to keep the callus from coming in the middle of the forefoot Silicone sleeves for the calluses and corns, have generic order these on [employer] 1, 2, 3 lbs upper core weightlifting strength training doing the exercises we reviewed today 20 exercises repeat x3 minimum 3 days weekly Metamucil fiber bar cookie, eat 1/2 cookie daily to avoid overflow diarrhea from the constipation problems from the medicines for heart IMMUNIZATIONS recommendations Go to the pharmacy to get this vaccine today otherwise everything is up-to-date RSV vaccine To keep up with emerging viruses and COVID science evidence I recommend the podcast TWIV episodes posted every Monday are with Dr. Jonathon Boyce and talk about COVID PLANNING FOR possible COVID INFECTIONS Be certain that you have been immunized, full immunization for COVID = 3 total COVID shots Testing and evaluation for COVID if you get a cold = runny nose plus sore throat could be COVID -day 0 = Onset of symptoms = sore throat, runny nose, cough -day 1. = perform a Nasal COVID test on the morning of day 1 and if POSITIVE call the office for medication- [ available ] -if negative test again in 48 hours= on day 4 -day 2. And 3 No testing is done on day 2 or 3 -day 4 = perform a Nasal COVID test on morning of day 4 and if POSITIVE call the office for medication- [ available ] , if negative no further testing as needed. there are medication treatments for COVID Paxlovid is the highly effective antiviral used to treat COVID most patients can use this medicine. If you have chronic kidney disease there are limited options for treatment. We would plan remdesivir infusion daily for 3 days or less effective MOLNUPIRAVIR 800 MG BID X 5D pills should you become ill with COVID-19. This will require transportation to [facility] daily for 3 days to complete your course ofcare PLANNING FOR possible INFLUENZA INFECTIONS Take your yearly flu shot in May, [ We take the flu shot to prevent dying from Influenza = the flu. ] Influenza causes fever and muscle aches. If you have these symptoms you will need to go to the Office or a quick care clinic for testing Antiviral therapy = Tamiflu= is available but needs to be started within the 1st 24-72 hours of symptoms. Please be evaluated immediately if you have these symptoms. HPI - ASSESSMENT & DIFFERENTIAL DIAGNOSIS The specifics of annual examination counseling are documented on the Comprehensive Yearly PhysicalExam Worksheet. And scanned into [employer] today 1. Annual physical exam The annual examination: specifics of the testing and counseling are recorded on the scanned Comprehensive Yearly Physical Exam Worksheet. and scanned into [employer] today The non- annual associated medical care required and additional 42 minutes. 2. 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 No palpable thyroid. She is symptom-free from this problem 3. History of osteoporosis DEXA update this summer remains in good range she will continue vitamin-D supplement calcium in thediet weight-bearing exercise recheck in 2 years 4. Pre-ulcerative calluses Loss of fat pad throughout the body but definitely on the feet. Advise Birkenstock arches and silicone sleeves for her toes to prevent further damage 5. Overflow diarrhea Advise the addition of Metamucil fiber bars to help avoid diarrhea after bowel movements 6. 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 She will avoid biting you reason this to. Advise avoiding any intervention until absolutely necessary just because of the risk related to her cardiovascular issues 7. Acute on chronic diastolic heart failure (CMS/HCC) ([facility]) 8. Aortic valve insufficiency, etiology of cardiac valve disease unspecified 9. Sick sinus syndrome (CMS/HCC) ([facility]) 10. Presence of cardiac pacemaker 11. Ventricular septal defect (VSD) 12. Ventricular tachycardia ([facility]) 15. Prosthetic cardiac valve vegetation, sequela Appreciate consultation help from Dr. Martinez. She will be back to him next week. She has been called in recently after home monitoring showed abnormalities in the has a diagnosis of what sounds like Libman Sacks vegetations. With recent blood cultures (-). All cardiovascular medications to be prescribed through his office so mistakes or not made 13. Low-tension glaucoma, bilateral, severe stage Excellent management from Dr. Lockhart 14. History of adenomatous polyp of colon 87 years of age guaiac negative today no further screening colonoscopy 16. Immunization counseling Vaccine counseling - Influenza and COVID planning: Immunization reviewed with updated recommendations outlined on the AVS along with COVID and influenza planning guidelines MEDICATIONS REFILLED TODAY New Medications Ordered This Visit Medications amoxicillin 500 mg capsule Sig: TAKE FOUR CAPSULES BY MOUTH ONE HOUR BEFORE PROCEDURE AND FOUR CAPSULES BY MOUTH 4HRS AFTER PROCEDURE clobetasoL (TEMOVATE) 0.05 % external solution Sig: APPLY SOLUTION TOPICALLY 3 TO 4 TIMES DAILY FOR ITCHY SCALP LORazepam (ATIVAN) 1 mg tablet Sig: Take 1 tablet (1 mg total) by mouth nightly as needed levothyroxine (SYNTHROID) 50 mcg tablet Sig: Take 1 tablet (50 mcg total) by mouth nightly Dispense: 90 tablet Refill: 2 FULL MEDICATION LIST AT CONCLUSION OF VISIT TODAY Current Outpatient Medications Medication acetaminophen (TYLENOL) 500 mg tablet amoxicillin 500 mg capsule apixaban (ELIQUIS) 2.5 mg tablet clobetasoL (TEMOVATE) 0.05 % external solution dilTIAZem (CARDIZEM) 60 mg tablet ketorolac (ACULAR LS) 0.4 % drops LORazepam (ATIVAN) 1 mg tablet melatonin 5 mg tablet multivitamin capsule levothyroxine (SYNTHROID) 50 mcg tablet No current facility-administered medications for this visit. REVIEW OF SYSTEMS Review of Systems Constitutional: Negative for activity change, appetite change, fatigue, fever and unexpected weightchange. HENT: Negative for congestion, dental problem, hearing loss, postnasal drip, sinus pressure, sore throat and trouble swallowing. Eyes: Negative for pain, discharge, itching and visual disturbance. Respiratory: Negative for cough, chest tightness, shortness of breath and wheezing. Cardiovascular: Negative for chest pain and palpitations. Gastrointestinal: Positive for diarrhea. Negative for abdominal distention, abdominal pain, anal bleeding, blood in stool, constipation, nausea, rectal pain and vomiting. Endocrine: Negative for cold intolerance, heat intolerance and polyuria. Genitourinary: Negative for difficulty urinating, dysuria, flank pain, frequency, hematuria, menstrual problem, pelvic pain and vaginal discharge. Musculoskeletal: Negative for arthralgias, gait problem, joint swelling and myalgias. Skin: Negative for color change and rash. Neurological: Negative for dizziness, weakness and headaches. Hematological: Negative for adenopathy. Does not bruise/bleed easily. Psychiatric/Behavioral: Positive for sleep disturbance (Resolved on lorazepam from Dr. Martinez). Negative for behavioral problems and dysphoric mood. The patient is not nervous/anxious. Breast: Negative for tenderness and breast redness. VITAL SIGNS BP 124/74 (BP Location: Left arm, Patient Position: Sitting) Pulse 81 Temp 36.2 ??C (97.1 ??F) (Temporal) Resp 20 Ht 165.1 cm (5' 5 ) Wt 54.4 kg (120 lb) SpO2 97% BMI 19.97 kg/m?? Body mass index is 19.97 kg/m??. Wt Readings from Last 3 Encounters: 08/10/23 54.4 kg (120 lb) 01/10/23 54.9 kg (121 lb) 07/04/22 56.2 kg (124 lb) PHYSICAL EXAMINATION Physical Exam Vitals reviewed. Constitutional: General: She is not in acute distress. Appearance: Normal appearance. She is well-developed. She is not ill-appearing. Comments: Excellent posture and continues to appear younger than her stated age HENT: Head: Normocephalic and atraumatic. Right Ear: Tympanic membrane and external ear normal. Left Ear: Tympanic membrane and external ear normal. Nose: Nose normal. No congestion or rhinorrhea. Mouth/Throat: Mouth: Mucous membranes are moist. Pharynx: Oropharynx is clear. No oropharyngeal exudate. Comments: Left front incisor does have little dullness consistent with the root reabsorption she isexperiencing. The gumline is healthy throughout the mouth and personal dental hygiene is excellent Eyes: General: No scleral icterus. Extraocular Movements: Extraocular movements intact. Conjunctiva/sclera: Conjunctivae normal. Pupils: Pupils are equal, round, and reactive to light. Neck: Thyroid: No thyromegaly. Vascular: No JVD. Cardiovascular: Rate and Rhythm: Normal rate and regular rhythm. Heart sounds: Normal heart sounds. No murmur heard. No friction rub. No gallop. Pulmonary: Effort: Pulmonary effort is normal. No respiratory distress. Breath sounds: Normal breath sounds. No wheezing or rales. Abdominal: General: Bowel sounds are normal. There is no distension. Palpations: Abdomen is soft. There is no splenomegaly or mass. Tenderness: There is no abdominal tenderness. Hernia: No hernia is present. Genitourinary: Exam position: Knee-chest position. Uterus: Not tender. Adnexa: Right: No mass or tenderness. Left: No mass or tenderness. Rectum: Normal. Guaiac result negative. No mass or tenderness. Comments: Breast examination: Bilateral breast examination healthy without mass or axillary adenopathy Pelvic examination: Perineal tissues healthy with intact Kegel response No cystocele No rectocele Rectal examination without mass Musculoskeletal: General: No tenderness or deformity. Normal range of motion. Cervical back: Neck supple. Lymphadenopathy: Cervical: No cervical adenopathy. Skin: General: Skin is warm and dry. Coloration: Skin is not jaundiced. Findings: Rash (mild erythematous rash where she recently had EKG pads) present. No bruising or erythema. Neurological: Mental Status: She is alert and oriented to person, place, and time. Cranial Nerves: No cranial nerve deficit. Sensory: No sensory deficit. Motor: No weakness or abnormal muscle tone. Coordination: Coordination normal. Gait: Gait normal. Deep Tendon Reflexes: Reflexes are normal and symmetric. Reflexes normal. Babinski sign absent on the right side. Babinski sign absent on the left side. Psychiatric: Mood and Affect: Mood normal. Behavior: Behavior normal. Thought Content: Thought content normal. Judgment: Judgment normal. MOST RECENT LABS Imaging Exam on 05/08/2023 Component Date Value RNFL OS 05/08/2023 59 RNFL OD 05/08/2023 54 Imaging Exam on 05/08/2023 Component Date Value Pattern Deviation OS 05/08/2023 12.91 Pattern Deviation OD 05/08/2023 10.91 Mean Deviation OS 05/08/2023 -13.45 Mean Deviation OD 05/08/2023 -13.44 Any Patient specific educational requests are printed on letterhead associated with this visit Lisa Conn personal health goals were negotiated and agreed upon today. Assessment and plan for new and ongoing medical problems were reviewed and agreed upon. Risk, benefit and side effects of medications were reviewed and sent eRx to the patient's requestedpharmacies. The current lab work was reviewed. Clinically appropriate new Lab orders, referrals, and care team communication were reviewed with Lisa Conn and completed. The discussion is summarized in this Assessment and Plan shared with her and is available on the AVS . The annual examination: specifics of the testing and counseling are recorded on the scanned Comprehensive Yearly Physical Exam Worksheet. and placed with today's orders. 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, sequela T4, FREE Routine 02/08/2024 8:15 AM CDT 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 - [address] ??[id number] Bed Operator: Darek Farrell PhD, Phone: ??[phone] Nabila King MD LAB BLOOD ORDERABLES Final Result Performing Organization Address [facility] de Phone Number [facility] - * T4, free (02/08/2024 8:15 AM CDT) T4,Free(Direct) 1.21 0.82 - 1.77 ng/dL [facility] - 01 Blood 02/08/2024 8:15 AM CDT 02/08/2024 Narrative [facility] - 02/09/2024 9:37 AM CDT Performed at: ?? - [address] ??[id number] Bed Operator: Darek Farrell PhD, Phone: ??[phone] Nabila King MD LAB BLOOD ORDERABLES Final Result Performing Organization Address [facility] de Phone Number [facility] - * Erythrocyte sedimentation rate (02/08/2024 8:15 AM CDT) Pathologist [facility] Erythrocyte sedimentation rate 2 0 - 40 mm/hr [facility] - 01 Blood 02/08/2024 8:15 AM CDT 02/08/2024 Narrative [facility] - 02/09/2024 9:37 AM CDT Performed at: ?? [address] ??[id number] Bed Operator: Darek Farrell PhD, Phone: ??[phone] us Nabila King MD LAB BLOOD ORDERABLES Final Result Performing Organization Address [facility] de Phone Number [facility] - * (ABNORMAL) CBC with auto differential (02/08/2024 8:15 AM CDT) WBC 4.7 3.4 - 10.8 x10E3/uL [facility] - 01 RBC 5.04 3.77 - 5.28 x10E6/uL [facility] - 01 Hgb 15.4 11.1 - 15.9 g/dL [facility] - 01 Hct 47.1(H) 34.0 - 46.6 % [facility] - 01 MCV 94 79 - 97 fL [facility] - 01 MCH 30.6 26.6 - 33.0 pg [facility] - 01 MCHC 32.7 31.5 - 35.7 g/dL [facility] - 01 Rdw 13.8 11.7 - 15.4 % [facility] - 01 Platelets 256 150 - 450 x10E3/uL [facility] - 01 Neutrophils pct 53 Not Estab. % [facility] - 01 Lymphs pct 34 Not Estab. % [facility] - 01 Monocytes pct 9 Not Estab. % [facility] - 01 Eosinophils pct 3 Not Estab. % [facility] - 01 Basophil pct 1 Not Estab. % [facility] - 01 Neutrophil abs 2.6 1.4 - 7.0 x10E3/uL [facility] - 01 Lymphs (Absolute) 1.6 0.7 - 3.1 x10E3/uL [facility] - 01 Monocyte abs 0.4 0.1 - 0.9 x10E3/uL [facility] - 01 Eosinophils, abs 0.1 0.0 - 0.4 x10E3/uL [facility] - 01 Basophils, abs 0.1 0.0 - 0.2 x10E3/uL [facility] - 01 Immature Granulocytes 0 Not Estab. % [facility] - 01 Immature Grans (Abs) 0.0 0.0 - 0.1 x10E3/uL [facility] - 01 Blood 02/08/2024 8:15 AM CDT 02/08/2024 Narrative [facility] - 02/09/2024 7:37 AM CDT Performed at: ??01 - [facility] [address], [place], [place] ??[id number] Bed Operator: Darek Farrell PhD, Phone: ??[phone] Nabila King MD LAB BLOOD ORDERABLES Final Result [facility] - * Comprehensive metabolic panel (02/08/2024 8:15 AM CDT) [facility] Glucose 86 70 - 99 mg/dL [facility] - 01 BUN 14 8 - 27 mg/dL [facility] - 01 Creatinine, Serum 0.84 0.57 - 1.00 mg/dL [facility] - 01 eGFR 67 >59 mL/min/1.73 [facility] - 01 BUN/creat ratio 17 12 - 28 [facility] - 01 Sodium 138 134 - 144 mmol/L [facility] - 01 Potassium, sr 5.1 3.5 - 5.2 mmol/L [facility] - 01 Chloride 101 96 - 106 mmol/L [facility] - 01 CO2 27 20 - 29 mmol/L [facility] - 01 Calcium 9.8 8.7 - 10.3 mg/dL [facility] - 01 Protein, sr 6.4 6.0 - 8.5 g/dL [facility] - 01 Albumin 4.4 3.7 - 4.7 g/dL [facility] - 01 Globulin, Total 2.0 1.5 - 4.5 g/dL [facility] - 01 Bilirubin, Total 0.6 0.0 - 1.2 mg/dL [facility] - 01 Alk phos 75 44 - 121 IU/L [facility] - 01 AST 20 0 - 40 IU/L [facility] - 01 ALT 23 0 - 32 IU/L [facility] - 01 Blood 02/08/2024 8:15 AM CDT 02/08/2024 Narrative [facility] - 02/09/2024 9:37 AM CDT Performed at: ??01 - [facility] [address] ??[id number] Bed Operator: Darek Farrell PhD, Phone: ??[phone] Nabila King MD LAB BLOOD ORDERABLES Final Result [facility] - 01 * (ABNORMAL) Cholesterol, LDL, direct (02/08/2024 8:15 AM CDT) LDL Chol, Direct 123(H) 0 - 99 mg/dL [facility] - 01 Blood 02/08/2024 8:15 AM CDT 02/08/2024 Narrative [facility] - 02/09/2024 4:11 PM CDT Performed at: ??01 - [facility] [address] ??[id number] Bed Operator: Darek Farrell PhD, Phone: ??[phone] us Nabila King MD LAB BLOOD ORDERABLES Final Result 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 History of osteoporosis Personal history of other musculoskeletal disorders Pre-ulcerative calluses Overflow diarrhea Achlorhydria Dental disorder Unspecified disorder of the teeth and supporting structures Acute on chronic diastolic heart failure (CMS/HCC) (HCC) Acute on chronic diastolic heart failure Aortic valve insufficiency, etiology of cardiac valve disease unspecified Sick sinus syndrome (CMS/HCC) (HCC) Sinoatrial node dysfunction Presence of cardiac pacemaker Cardiac pacemaker in situ Ventricular septal defect (VSD) Ventricular tachycardia (HCC) Paroxysmal ventricular tachycardia Low-tension glaucoma, bilateral, severe stage History of adenomatous polyp of colon Personal history of colonic polyps Prosthetic cardiac valve vegetation, sequela Immunization counseling Multiple-type hyperlipidemia Other and unspecified hyperlipidemia documented in this encounter Discontinued Medications Medication Sig Discontinue Reason Start Date End Da te loteprednol (LOTEMAX) 0.5 % ophthalmic suspension Administer 1 drop into the right eye daily Therapy completed 05/08/2023 08/10/2023 omega-3/dha/epa/dpa/fis h oil (OMEGA-3 2100 ORAL) Take by mouth Therapy completed 08/10/2023 turmeric root extract 500 mg capsule Take by mouth Therapy completed 08/10/2023 levothyroxine (SYNTHROID) 50 mcg tabletIndications: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 LORazepam (ATIVAN) 1 mg tablet Take 1 tablet (1 mg total) by mouth nightly as needed 06/28/2023 4 clobetasoL (TEMOVATE) 0.05 % external solution APPLY SOLUTION TOPICALLY 3 TO 4 TIMES DAILY FOR ITCHY SCALP 05/22/2023 4 amoxicillin 500 mg capsule TAKE FOUR CAPSULES BY MOUTH ONE HOUR BEFORE PROCEDURE AND FOUR CAPSULES BY MOUTH 4HRS AFTER PROCEDURE 07/26/2023 4 added in this encounter Care Teams Field Crop Grower Relationship Specialty Start Date End Date Nabila King MD [address] [place] [address] [address] [place] [address] PCP - General Internal Medicine 12/16/20 Christine Kendall MD Surgeon Ophthalmology 12/13/20 Sita Magana MD [address] [place] [address] [address] [place] [address] Consulting Physician Internal Medicine 12/13/20 Rgeulo Pandey MD [address] [place] [address] [address] [place] [address] Referring Physician Cardiovascular Disease 12/16/20 Gigi Méndez MD [address] [place] [address] [address] [place] [address] Referring Physician Cardiology 02/18/21 Bc Martinez MD [address] [place] [address] Consulting Physician Cardiology 10/22/21 08/21/23 documented as of this encounter
--- OUTSIDE RECORDS SUMMARY | 2024-08-09 17:47 | XMS_ITS | Encounter Summary ---
Author Organization [facility] Healthcare Address [address] [place] [address] Care Team Providers Care Certified Technician Specialist Name Role Phone Christine Kendall MD Unavailable [phone] Sita Magana MD Unavailable [phone] Nabila King MD Primary Care Provider + [phone] Regulo Pandey MD Unavailable Gigi Méndez MD Unavailable [phone] Bc Martinez MD Unavailable [phone] Martin Correa MD Unavailable [phone] Encounter Details Date Type Department Care Team (Late st Contact Info) Description 09/12/2023 Orders Only [facility] [address] [place] [id number] Luciano King MD [address] [place] [address] Social History Tobacco Use Types Packs/Day Years [...] on file Legal Sex Female 8:14 PM HEAD CHARRER Gender Identity Not on file Sexual Orientation Not on file 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 Not on file documented as of this encounter Plan of Treatment Not on file documented as of this encounter Procedures Procedure Name Priority Date/Time Associated Diagnosis Comments SLEEP LAB/STUDY - RESULT 09/12/2023 documented in this encounter Results * SLEEP LAB/STUDY - RESULT (09/12/2023) Luciano King MD Final Result documented in this encounter Visit Diagnoses Not on filedocumented in this encounter Care Teams Certified Technician Specialist Relationship Specialty Start Date End Date Nabila King MD [address] [facility] [address] [place] [address] PCP - General Internal Medicine 12/16/20 Christine Kendall MD Surgeon Ophthalmology 12/13/20 Sita Magana MD [address] [facility] [address] [place] [address] Consulting Physician Internal Medicine 12/13/20 Regulo Pandey MD [address] [place] [address] Referring Physician Cardiovascular Disease 12/16/20 Gigi Méndez MD [address] [place] [address] Referring Physician Cardiology 02/18/21 Bc Martinez MD [address] [place] [address] Referring Physician Cardiology 08/22/23 Martin Correa MD [address] [place] [address] Consulting Physician Cardiothoracic Surgery 08/22/23 documented as of this encounter
--- OUTSIDE RECORDS SUMMARY | 2024-08-09 17:47 | XMS_ITS | Encounter Summary ---
Author Organization [facility] Healthcare Address [address] [place] [address] Care Team Providers Care Operations Manager Name Role Phone Christine Kendall MD Unavailable [phone] Sita Magana MD Unavailable [phone] Nabila King MD Primary Care Provider [phone] Regulo Pandey MD Unavailable Gigi Méndez MD Unavailable [phone] Bc Martinez MD Unavailable [phone] Encounter Details Date Type Department Care Team (Latest Contact Info) Description 07/04/2022 11:48 AM LOADER MACHINE - 07/04/2022 11:59 PM LOADER MACHINE Hospital Encounter [address] [id number] Sick sinus syndrome (CMS/HCC) (HCC); 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 Discharge Disposition: Discharge to home or self [...] on file Legal Sex Female 8:14 PM LOADER MACHINE Gender Identity Not on file Sexual Orientation Not on file 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 Not on file documented as of this encounter Medications at Time of Discharge apixaban (ELIQUIS) 2.5 mg tablet 1 tablet (2.5 mg total) 2 (two) times a day multivitamin capsule Take 1 capsule by mouth daily dilTIAZem (CARDIZEM) 60 mg tabletIndications :Paroxysmal A-fib (CMS/HCC) (HCC),Palpitation Take 0.5 tablets (30 mg total) by mouth 3 (three) times a day 135 tablet 3 07/04/2022 3 ketorolac (ACULAR LS) 0.4 % drops Administer 1 drop into both eyes 3 (three) times a day 5 mL 11 09/20/2021 3 levothyroxine (SYNTHROID) 50 mcg tabletIndications :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 Take 1 tablet (50 mcg total) by mouth nightly 90 tablet 3 07/04/2022 3 documented as of this encounter Discharge Disposition Disposition Code Departure Means Destination Discharge to home or self care documented in this encounter Plan of Treatment Not on file documented as of this encounter Procedures Procedure Name Priority Date/Time Associated Diagnosis Comments EGFR Routine 07/04/2022 11:48 AM LOADER MACHINE Sick sinus syndrome (CMS/HCC) (HCC) TSH Routine 07/04/2022 11:48 AM LOADER MACHINE 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 73 m2 FRANKIE MOTLEY Comment: Interpretive Data Reference Interval Normal ?>/= 90 mL/min/1.73m2 Mildly decreased* ? 60 - 89 mL/min/1.73m2 Mildly to moderately decreased ?45 - 59 mL/min/1.73m2 Moderately to severely decreased ??30 - 44 mL/min/1.73m2 Severely decreased ?15 - 29 mL/min/1.73m2 Kidney Failure ?< 15 ??mL/min/1.73m2 *Relative to young adult level Estimated glomerular filtration rate is determined by the 2020 CKD-EPI equation recommended by the National Kidney Foundation (A Unifying Approach to GFR Estimation: Recommendations of the NKF-ASK Task Force on Reassessing the Inclusion of Race in Diagnosing Kidney Disease, JASN 2020). The CKD-EPI equation should not be used for patients with unstable renal function and has not been validated in children and those over 70. Current interpretive data was last reviewed 2021. Blood 07/04/2022 11:4 8 AM LOADER MACHINE 07/04/2022 7:16 PM LOADER MACHINE us Nabila King MD LAB BLOOD ORDERABLES Final Result Performing Organization Address [facility] de Phone Number FRANKIE [address] [place] [address] * T4, free (07/04/2022 11:48 AM LOADER MACHINE) Free T4 1.22 0.90 - 1.70 ng/dL [facility]ANKIE Blood 07/04/2022 11:4 8 AM LOADER MACHINE 07/04/2022 7:06 PM LOADER MACHINE us Nabila King MD LAB BLOOD ORDERABLES Final Result Performing Organization Address [facility] de Phone Number FRANKIE [address] Department [place] [address] * TSH (07/04/2022 11:48 AM LOADER MACHINE) Thyroid Stimulating Hormone 1.77 0.30 - 4.20 mcIUnit/mL [facility] Blood 07/04/2022 11:4 8 AM LOADER MACHINE 07/04/2022 7:06 PM LOADER MACHINE us Nabila King MD LAB BLOOD ORDERABLES Final Result Performing Organization Address [facility] de Phone Number [facility] [address] [facility] [place] [address] * Cholesterol, LDL, direct (07/04/2022 11:48 AM LOADER MACHINE) LDL Cholesterol, Direct 116 <=129 mg/dL [facility] Comment: Interpretive Data Ages < or = 19 years ??Acceptable: ? <110 mg/dL ??Borderline high: ??110-129 mg/dL ??High: ?>or= 130 mg/dL Ages > or = 20 years ??Optimal: ? <100 mg/dL ??Near optimal: ?100-129 mg/dL ??Borderline high: ?? 130-159 mg/dL ??High: ?>160 mg/dL Literature References: 1. Expert Panel on Integrated Guidelines for Cardiovascular Health and Risk Reduction in Children and Adolescents. Pediatrics 2011;128:S213 2. NCEP Expert Panel. Circulation 2004;110:227 Current Interpretive Data was last revised on 2018. Blood 07/04/2022 11:4 8 AM LOADER MACHINE 07/04/2022 7:06 PM LOADER MACHINE us Nabila King MD LAB BLOOD ORDERABLES Final Result Performing Organization Address [facility] Co de Phone Number [facility] [address] [facility] [place] [address] * (ABNORMAL) Comprehensive metabolic panel (07/04/2022 11:48 AM LOADER MACHINE) Sodium 137 135 - 145 mmol/L [facility] Potassium, pl 5.0(H) 3.3 - 4.9 mmol/L [facility] Chloride 100 97 - 110 mmol/L [facility] CO2 27 22 - 32 mmol/L [facility] Anion gap 10 2 - 15 mmol/L [facility] BUN 13 8 - 25 mg/dL [facility] Creatinine 0.70 0.60 - 1.10 mg/dL [facility] Glucose 90 70 - 199 mg/dL [facility] Comment: Interpretive Data Fasting glucose >/= 126 mg/dl is diagnostic for diabetes. ?? Fasting is defined as no caloric intake for at least 8 hours. Fasting glucose between 100 mg/dl to 125 mg/dl is diagnostic of prediabetes. In a patient with classic symptoms of hyperglycemia or hyperglycemic crisis, a random glucose >/= 200 mg/dl is diagnostic for diabetes. In the absence of unequivocal hyperglycemia, results should be confirmed by repeat testing. The classification and Diagnosis of Diabetes Diabetes Care 2017;40 (Suppl. 1):S11. Current interpretive data was last revised 2017. 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 documented in this encounter Care Teams Operations Manager Relationship Specialty Start Date End Date Nabila King MD [address] [facility] [address] [place] [address] PCP - General Internal Medicine 12/16/20 Christine Kendall MD Surgeon Ophthalmology 12/13/20 Sita Magana MD [address] [facility] [address] [place] [address] Consulting Physician Internal Medicine 12/13/20 Regulo Pandey MD [address] [facility] [address] [place] [address] Referring Physician Cardiovascular Disease 12/16/20 Gigi Méndez MD [address] [facility] [address] [place] [address] Referring Physician Cardiology 02/18/21 Bc Martinez MD [address] [place] [address] Consulting Physician Cardiology 10/22/21 08/21/23 documented as of this encounter
--- OUTSIDE RECORDS SUMMARY | 2024-08-09 17:47 | XMS_ITS | Encounter Summary ---
Author Organization [facility] Address [address] [place] [address] Phone Care Team Providers Care Music Arranger Name Role Phone Christine Kendall MD Unavailable [phone] Sita Magana MD Unavailable [phone] Nabila King MD Primary Care Provider [phone] Regulo Pandey MD Unavailable Gigi Méndez MD Unavailable [phone] Bc Martinez MD Unavailable [phone] Reason for Visit * Reason Comments Osteopenia * Diagnostic Imaging (Routine) - Closed Specialty Diagnoses / Procedures Referred By Contac t Referred To Contact Diagnoses Senile osteoporosis Procedures Dexa Axial Skeleton Bone Density 1 or 2 Site Nabila King MD [address] [place] [address] Phone: tel: fax: [facility] (All Locations) Referral ID Status Reason Start Date Expiration Date Visits Re quested Visits Authorized [id number] Closed 11/15/2022 12/15/2023 1 1 Encounter Details Date Type Department Care Team (Latest Contact Info) Description 03/30/2023 1:50 PM CDT Clinical Support [facility] [address] [facility] [address] [place] [address] Osteopenia of multiple sites (Primary Dx); Senile osteoporosis; Postmenopause Social History Tobacco Use Types Packs/Day Years [...] on file Legal Sex Female 8:14 PM INSTRUCTOR OF SPANISH Gender Identity Not on file Sexual Orientation Not on file 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 Not on file documented as of this encounter Plan of Treatment Not on file documented as of this encounter Procedures Procedure Name Priority Date/Time Associated Diagnosis Comments DEXA AXIAL SKELETON BONE DENSITY 1 OR MORE SITES Schedule Routine, Read Routine (OP Routine) 03/30/2023 2:05 PM CDT Senile osteoporosis documented in this encounter Results * Dexa Axial Skeleton Bone Density 1 or 2 Site (03/30/2023 2:05 PM CDT) Anatomical Region Laterality Modality Body N/A Radiographic Cayla ging Narrative 03/30/2023 3:51 PM CDT Patient Name: Lisa Conn Date of : 1935 Date of scan: 03/30/2023 Bone mineral density was performed on a [employer] Discovery Densitometer. ?? Based on machine cross-calibration [...] by the International Society of Clinical Densitometry. [id number] us Nabila King MD IMG DXA PROCEDURES Final R esult documented in this encounter Visit Diagnoses Diagnosis Osteopenia of multiple sites- Primary Senile osteoporosis Postmenopause Asymptomatic postmenopausal status (age-related) (natural) documented in this encounter Care Teams Music Arranger Relationship Specialty Start Date End Date Nabila King MD [address] [facility] [address] [address] PCP - General Internal Medicine 12/16/20 Christine Kendall MD Surgeon Ophthalmology 12/13/20 Sita Magana MD [address] [facility] [address] [place] [address] Consulting Physician Internal Medicine 12/13/20 Regulo Pandey MD [address] [place] [address] [address] [place] [address] Referring Physician Cardiovascular Disease 12/16/20 Gigi Méndez MD [address] [place] [address] [address] [place] [address] Referring Physician Cardiology 02/18/21 Bc Martinez MD [address] [place] [address] Consulting Physician Cardiology 10/22/21 08/21/23 documented as of this encounter
--- OUTSIDE RECORDS SUMMARY | 2024-08-09 17:47 | XMS_ITS | Encounter Summary ---
Author Organization [facility] Healthcare Address [address] [place] [address] Care Team Providers Care Director Of Global Sales Name Role Phone Christine Kendall MD Unavailable [phone] Sita Magana MD Unavailable [phone] Nabila King MD Primary Care Provider [phone] Regulo Pandey MD Unavailable Gigi Méndez MD Unavailable [phone] Bc Martinez MD Unavailable [phone] Encounter Details Date Type Department Care Team (Latest Contact Info) Description 07/25/2023 - 07/25/2023 11:59 PM ANALYTICS ANALYST Hospital Encounter [facility] - Imaging [phone] Discharge Disposition: Discharge to home or self [...] on file Legal Sex Female 8:14 PM ANALYTICS ANALYST Gender Identity Not on file Sexual [...] into both eyes daily 5 mL 11 05/08/2023 multivitamin capsule Take 1 capsule by mouth daily clobetasoL (TEMOVATE) 0.05 % external solution APPLY SOLUTION TOPICALLY 3 TO 4 TIMES DAILY FOR ITCHY SCALP 05/22/2023 4 levothyroxine (SYNTHROID) 50 mcg tabletIndications :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 Take 1 tablet (50 mcg total) by mouth nightly 90 tablet 2 01/10/2023 3 LORazepam (ATIVAN) 1 mg tablet Take 1 tablet (1 mg total) by mouth nightly as needed 06/28/2023 4 loteprednol (LOTEMAX) 0.5 % ophthalmic suspension Administer 1 drop into the right eye daily 5 mL 11 05/08/2023 3 melatonin 5 mg tablet Take [...] Comments US TRANSFER OF OUTSIDE FILMS Routine 07/25/2023 12:00 AM ANALYTICS ANALYST documented in this encounter Results * US Outside Reference (07/25/2023 12:00 AM ANALYTICS ANALYST) Narrative RAD_PACS_OUTSIDE_FILM_[facility] - 08/24/2023 9:08 AM ANALYTICS ANALYST This order has been auto-finalized and does not contain a result. us Provider Transcribed Order IMG US PROCEDURES Fin al Result RAD_PACS_OUTSIDE_FILM_[facility] documented in this encounter Visit Diagnoses Not on filedocumented in this encounter Care Teams Director Of Global Sales Relationship Specialty Start Date End Date Nabila King MD [address] [facility] [address] [place] [address] PCP - General Internal Medicine 12/16/20 Christine Kendall MD Surgeon Ophthalmology 12/13/20 Sita Magana MD [address] [facility] [address] [place] [address] Consulting Physician Internal Medicine 12/13/20 Regulo Pandey MD [address] [place] [address] Referring Physician Cardiovascular Disease 12/16/20 Gigi Méndez MD [address] [facility] [address] [place] [address] Referring Physician Cardiology 02/18/21 Bc Martinez MD [address] [place] [address] Consulting Physician Cardiology 10/22/21 08/21/23 documented as of this encounter
--- OUTSIDE RECORDS SUMMARY | 2024-08-09 17:47 | XMS_ITS | Encounter Summary ---
Author Organization [facility] Address [address] [facility] [address] [place] [address] Care Team Providers Care Gaming Floor Supervisor Name Role Phone Christine Kendall MD Unavailable [phone] Sita Magana MD Unavailable [phone] Nabila King MD Primary Care Provider [phone] Regulo Pandey MD Unavailable Gigi Méndez MD Unavailable [phone] Bc Martinez MD Unavailable [phone] Reason for Visit * Diagnostic Imaging (Routine) - Closed Specialty Diagnoses / Procedures Referred By John t Referred To Contact Diagnoses Chronic bilateral low back pain with left-sided sciatica Procedures XR Spine Lumbar Complete 4 Or More [place], Elizabeth Josue, PREPARATION ROOM MANAGER [address] [place] [address] Phone: tel: [facility] Referral ID Status Reason Start Date Expiration Date Visits Re quested Visits Authorized [id number] Closed 03/02/2022 04/01/2023 1 1 Encounter Details Date Type Department Care Team (Latest Contact Info) Description 03/02/2022 10:15 AM CDT Ancillary Procedure [facility] [address] [place] [phone] Chronic bilateral low back pain with [...] on file Legal Sex Female 8:14 PM VARNISH REMOVER Gender Identity Not on file Sexual Orientation Not on file 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 Not on file documented as of this encounter Plan of Treatment Not on file documented as of this encounter Procedures Procedure Name Priority Date/Time Associated Diagnosis Comments XR SPINE LUMBAR COMPLETE 4 OR MORE VIEWS Schedule Routine, Read Routine (OP Routine) 03/02/2022 10:31 AM CDT Chronic bilateral low back pain with left-sided sciatica documented in this encounter Results * XR Spine Lumbar Complete 4 Or More (03/02/2022 10:31 AM CDT) Anatomical Region Laterality Modality Spine N/A Computed Radiogr aphy Narrative 03/02/2022 2:17 PM CDT LUMBAR SPINE: There is grade 1 anterolisthesis of L4 on L5. ??Alignment is otherwise preserved. ??Vertebral body heights are normal without compression fracture. ??There is moderate L5-S1 intervertebral disc space height loss. ?? There is moderate L4-5 and L5-S1 facet arthrosis. ??The sacroiliac joints are normal in appearance. ??Soft tissues are normal. SUMMARY: Moderate L5-S1 degenerative disc disease. ??Moderate lower lumbar spine facet arthrosis. ??Grade 1 spondylolisthesis of L4-5. Elizabeth Daniels PREPARATION ROOM MANAGER IMG XR PROCEDURES Final Result documented in this encounter Visit Diagnoses Diagnosis Chronic bilateral low back pain with left-sided sciatica documented in this encounter Care Teams Gaming Floor Supervisor Relationship Specialty Start Date End Date Nabila King MD [address] [place] [address] [address] [place] [address] PCP - General Internal Medicine 12/16/20 Christine Kendall MD Surgeon Ophthalmology 12/13/20 Sita Magana MD [address] [facility] [address] [place] [address] Consulting Physician Internal Medicine 12/13/20 Regulo Pandey MD [address] [facility] [address] [place] [address] Referring Physician Cardiovascular Disease 12/16/20 Gigi Méndez MD [address] [place] [address] [address] [place] [address] Referring Physician Cardiology 02/18/21 Bc Martinez MD [address] [place] [address] Consulting Physician Cardiology 10/22/21 08/21/23 documented as of this encounter
--- OUTSIDE RECORDS SUMMARY | 2024-08-09 17:47 | XMS_ITS | Encounter Summary ---
Author Organization [facility] Address [address] [facility] [address] [place] [id number] Care Team Providers Care Prefitter Doors Name Role Phone Christine Styles MD Unavailable [phone] Sita Magana MD Unavailable [phone] Nabila King MD Primary Care Provider + [phone] Regulo Pandey MD Unavailable Gigi Méndez MD Unavailable [phone] Bc Martinez MD Unavailable [phone] Reason for Visit * Reason Comments Annual Exam Encounter Details Date Type Department Care Team (Late st Contact Info) Description 07/04/2022 10:00 AM RAILROAD EMERGENCY SERVICES MANAGER Office Visit [facility] [address] [place] [address] Nabila King MD [address] [place] [address] Annual physical exam (Primary Dx); Presence of cardiac pacemaker; Ventricular septal defect (VSD); Aortic valve insufficiency, etiology of cardiac valve disease unspecified; Paroxysmal A-fib (CMS/HCC) (HCC); Sick sinus syndrome (CMS/HCC) (HCC); Palpitation; Acute on chronic diastolic heart failure (CMS/HCC) (HCC); ASVD (arteriosclerotic vascular disease); 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; Neuroforaminal stenosis of lumbar spine; Tear of left acetabular labrum, sequela; History of osteoporosis; Low-tension glaucoma, bilateral, severe stage Social History Tobacco Use Types Packs/Day Years Used Date Smoking Tobacco: Never Smokeless Tobacco: Never Tobacco Cessation:Counseling Given: Not Answered Alcohol Use Standard Drinks/Week Comments No 0 (1 standard drink = 0.6 oz pur e alcohol) PHQ-2 Answer Date Recorded PHQ-2 Total Score (If total score is 3 or more points, staff should administer the PHQ-9) 0 07/04/2022 Comments Unknown Sex and Gender Information Value Date Recorded Sex Assigned at Not on file Legal Sex Female 8:14 PM RAILROAD EMERGENCY SERVICES MANAGER Gender Identity Not on file Sexual Orientation Not on file 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 Not on file documented as of this encounter Last Filed Vital Signs Vital Sign Reading Time Taken Comments Blood Pressure 122/74 07/04/2022 11:08 AM RAILROAD EMERGENCY SERVICES MANAGER Average home blood pressure Pulse 82 07/04/2022 10:07 AM RAILROAD EMERGENCY SERVICES MANAGER Temperature 36.1 ??C (96.9 ??F) 07/04/2022 1 0:07 AM RAILROAD EMERGENCY SERVICES MANAGER Respiratory Rate 16 07/04/2022 10:0 7 AM RAILROAD EMERGENCY SERVICES MANAGER Oxygen Saturation 97% 07/04/2022 10: 07 AM RAILROAD EMERGENCY SERVICES MANAGER Inhaled Oxygen Concentration - - Weight 56.2 kg (124 lb) 07/04/2022 10:0 7 AM RAILROAD EMERGENCY SERVICES MANAGER Height 165.1 cm (5' 5 ) 07/04/2022 10:0 7 AM RAILROAD EMERGENCY SERVICES MANAGER Body Mass Index 20.63 07/04/2022 10:07 AM RAILROAD EMERGENCY SERVICES MANAGER documented in this encounter Patient Instructions * Patient Instructions* Nabila King MD - 07/04/2022 10:00 AM RAILROAD EMERGENCY SERVICES MANAGER ORDERS FOR AMS STAFF TO ARRANGE 1. Free T4 , TSH today and in 6 months = hypothyroid adult LDL, chemistry profile, CBC = sick sinus syndrome medication monitoring 2. Advanced directives were updated these need to be copy for [facility] scanning Advanced directives AMS staff will copy POA and advanced directives completed today to scan into Epic and place a paper copy of these documents into the Paper chart. We will Return the originals to patient to keep with personal legal records. For comprehensive documentation of your Healthcare directives, I recommend that you fill out paperwork for 5 WISHES online at [email or web address] and return a copy of the completed forms to my office. ORDERS FOR Lisa Conn TO ARRANGE 1. lifestyle changes Try the Pilates stretching for the hip pain 2. Medication changes Tumeric 500 mg up to twice daily can help with the left hip pain problem from the labrum and the low back foraminal stenosis, remember to continue strengthening and stretching daily 3. Cardiac Diagnostic and therapeutic interventions Awaiting evaluation from Dr. Martinez to decide if any further echocardiogram is indicated And Whether Eliquis is necessary long-term Return in about 6 months (around 01/01/2023) for Recheck. Orders Placed This Encounter Procedures T4, free TSH CBC with auto differential TSH T4, free Cholesterol, LDL, direct Comprehensive metabolic panel Comprehensive metabolic panel Cholesterol, LDL, direct 1. Immunization recommendations: Everything is up-to-date For your records I have provided this immunization report Immunization History Administered Date(s) Administered DT 03/21/2015 Influenza, Quadrivalent, High Dose, Preservative Free, Intrr 06/17/2019, 05/01/2020, 05/25/2021, 05/24/2022 Influenza, Trivalent, High Dose, Split, Preservative Free, Intramuscular 05/15/2014, 05/08/2016, 05/07/2017, 05/03/2018, 06/17/2019 Influenza, Trivalent, Intramuscular 06/20/2012 Influenza, Trivalent, Preservative Free, Intramuscular 05/22/2015 Influenza, Unspecified 06/20/2012, 05/15/2014, 05/22/2015, 05/08/2016, 05/07/2017, 05/03/2018, 06/17/2019 Pfizer SARS-CoV-2 Vaccination (12+ YRS) MCCOY-READY TO USE 01/23/2022 Pfizer SARS-CoV-2 Vaccination (12+ yrs) PURPLE 10/13/2020, 11/03/2020, 07/08/2021, 01/23/2022 Pfizer Sars-Cov-2 Bivalent Booster Vaccination (12+ YRS) 06/21/2022 Pneumococcal Conjugate PCV 13 05/08/2016 Pneumococcal Conjugate, Unspecified 06/18/2008 Pneumococcal Polysaccharide PPV23 06/05/2022 ZOSTER Recombinant 02/02/2018, 05/03/2018 A brief review of all your currently discussed problems, the pharmacy where your medications are sent, all active medications, and orders for each problem discussed today Primary Pharmacy/DME suppliers: [facility] - [place], [place] - [address] [facility] [employer] [facility] [address] [facility] [address] ICD-9-CM ICD-10-CM 1. Annual physical exam V70.0 Z00.00 Comprehensive metabolic panel Cholesterol, LDL, direct Comprehensive metabolic panel Cholesterol, LDL, direct 2. Presence of cardiac pacemaker V45.01 Z95.0 3. Ventricular septal defect (VSD) 745.4 Q21.0 4. Aortic valve insufficiency, etiology of cardiac valve disease unspecified 424.1 I35.1 5. Paroxysmal A-fib ([facility]) ([facility]) 427.31 I48.0 dilTIAZem (CARDIZEM) 60 mg tablet 6. Sick sinus syndrome ([facility]) ([facility]) 427.81 I49.5 CBC with auto differential CBC with auto differential Cholesterol, LDL, direct Comprehensive metabolic panel Comprehensive metabolic panel Cholesterol, LDL, direct Comprehensive metabolic panel Cholesterol, LDL, direct CANCELED: Cholesterol, LDL, direct CANCELED: Comprehensive metabolic panel CANCELED: Cholesterol, LDL, direct CANCELED: Comprehensive metabolic panel CANCELED: Comprehensive metabolic panel CANCELED: Cholesterol, LDL, direct 7. Palpitation 785.1 R00.2 dilTIAZem (CARDIZEM) 60 mg tablet 8. Acute on chronic diastolic heart failure ([facility]) ([facility]) 428.33 I50.33 9. ASVD (arteriosclerotic vascular disease) 440.9 I70.90 10. 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 Neuroforaminal stenosis of lumbar spine 724.02 M48.061 12. Tear of left acetabular labrum, sequela 905.7 S73.192S 13. History of osteoporosis V13.59 Z87.39 14. Low-tension glaucoma, bilateral, severe stage 365.12 H40.1233 365.73 PLEASE REVIEW this CARE TEAM and advise of any need for INCLUSIONS OR DELETIONS so I can keep your team informed of important changes in your health Patient Care Team: Nabila King MD as PCP - General (Internal Medicine) Christine Styles MD as Surgeon (Ophthalmology) Sita Magana MD as Consulting Physician (Internal Medicine) Regulo Pandey MD as Referring Physician (Cardiovascular Disease) Gigi Méndez MD as Referring Physician (Cardiology) Bc Martinez MD as Consulting Physician (Cardiology) BRING IN ALL PILL BOTTLES TO EVERY OFFICE VISIT YOUR MEDICAL TEAM NEEDS YOU TO ACTIVELY PARTICIPATE IN YOUR HEALTH, in the end GOOD OR BAD OUTCOMESCOUNT ON YOU participating with your medical team. MEDICATION AND SUPPLEMENTS alter our body and health in ways that your doctors needs to take into account along with your symptoms and physical findings. To better understand AND appropriately advise on your current health concerns, ...IT IS ESSENTIAL THAT YOU BRING IN ALL PILL BOTTLES TO EVERY OFFICE VISIT. PLEASE SIGN UP FOR MibioHART so that you may have access to your labs and chart documentation IF YOU HAVE TROUBLE WITH THIS PROCESS CALL [phone] Annual Exam finds the need for continued diet and exercise to maintain this level of health. Please review the comprehensive yearly physical examination worksheet created for you today. laboratory results, immunization recommendations, and any tests require for preventive health are documented on this information sheet. OTHER IMPORTANT RECOMMENDATIONS NEGOTIATED THIS VISIT CORE and BODY strength training THE PILATES BOOK AND LOOP EXERCISE BANDS ARE AVAILABLE ON [employer] For core strengthening try Pilates = The complete guide to Jason Estrella techniques of physical conditioning by Pablito Landrum For body strengthening use exercise loops or bands , FIT SIMPLIFY is a very good exercise loop the comes with a complete exercise program CHANGES FOR YOUR SLEEPING TROUBLE 1. Wake up at the same time every day = 7:00 a.m. -get exposure to natural bright sunlight - if this light exposure is not available in your home you can use 10,000 lumens light box available for about $100. Light exposure will reset the sleep clock in the brain. 2. Bedtime should be 8 hours before awakening, at 11:00 p.m. 3. Rules around sleep: -avoid all caffeine after 12 noon -restrict alcohol and definitely avoid using alcohol as a sleep aid -limit daytime naps to no more than 1 hour in the early afternoon -keep the sleep environment dark and quiet at night -match the sleeping schedule with people that live in the home 4. Relax time start 1 hour before bed. Turn off all computer electronics, you may do any non- interactive activity that is relaxing for you: Read a book, stretch, watching relaxing television show--but avoid eating and avoid strenuous exercise. 5. If you are a worrier: Write a worry list to save for the daylight hours. It is normal to wake up several times per night, do not allow yourself to review any of the activities that are on your list. [place] this work for the next day. 6. Cognitive behavioral therapy is the 1st intervention for sleep difficulties that do not respond to the above-noted interventions: 5 published research trials have proven cognitive behavioral therapy = CBT is highly effective for sleep disturbance with beneficial effects lasting over 1 year. This is available online: The best studied program but I recommend is SHUTi A subscript into this program cost about $100, is highly effective and [place]. 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 Free T4 , TSH today and in 6 months = hypothyroid adult LDL, chemistry profile, CBC = sick sinus syndrome medication monitoring 2. Advanced directives were updated these need to be copy for [employer] scanning Advanced directives AMS staff will copy POA and advanced directives completed today to scan into Epic and place a paper copy of these documents into the Paper chart. We will Return the originals to patient to keep with personal legal records. For comprehensive documentation of your Healthcare directives, I recommend that you fill out paperwork for 5 WISHES online at [email or web address] and return a copy of the completed forms to my office. ORDERS FOR Lisa Conn TO ARRANGE 1. lifestyle changes Try the Pilates stretching for the hip pain 2. Medication changes Tumeric 500 mg up to twice daily can help with the left hip pain problem from the labrum and the low back foraminal stenosis, remember to continue strengthening and stretching daily 3. Cardiac Diagnostic and therapeutic interventions Awaiting evaluation from Dr. Martinez to decide if any further echocardiogram is indicated And Whether Eliquis is necessary long-term Return in about 6 months (around 01/01/2023) for Recheck. Orders Placed This Encounter Procedures T4, free TSH CBC with auto differential TSH T4, free Cholesterol, LDL, direct Comprehensive metabolic panel Comprehensive metabolic panel Cholesterol, LDL, direct 1. Immunization recommendations: Everything is up-to-date For your records I have provided this immunization report Immunization History Administered Date(s) Administered DT 03/21/2015 Influenza, Quadrivalent, High Dose, Preservative Free, Intrr 06/17/2019, 05/01/2020, 05/25/2021, 05/24/2022 Influenza, Trivalent, High Dose, Split, Preservative Free, Intramuscular 05/15/2014, 05/08/2016, 05/07/2017, 05/03/2018, 06/17/2019 Influenza, Trivalent, Intramuscular 06/20/2012 Influenza, Trivalent, Preservative Free, Intramuscular 05/22/2015 Influenza, Unspecified 06/20/2012, 05/15/2014, 05/22/2015, 05/08/2016, 05/07/2017, 05/03/2018, 06/17/2019 Pfizer SARS-CoV-2 Vaccination (12+ YRS) MCCOY-READY TO USE 01/23/2022 Pfizer SARS-CoV-2 Vaccination (12+ yrs) PURPLE 10/13/2020, 11/03/2020, 07/08/2021, 01/23/2022 Pfizer Sars-Cov-2 Bivalent Booster Vaccination (12+ YRS) 06/21/2022 Pneumococcal Conjugate PCV 13 05/08/2016 Pneumococcal Conjugate, Unspecified 06/18/2008 Pneumococcal Polysaccharide PPV23 06/05/2022 ZOSTER Recombinant 02/02/2018, 05/03/2018 A brief review of all your currently discussed problems, the pharmacy where your medications are sent, all active medications, and orders for each problem discussed today Primary Pharmacy/DME suppliers: [facility] - [place], [place] - [address] [place] [address] [address] [facility] [address] ICD-9-CM ICD-10-CM 1. Annual physical exam V70.0 Z00.00 Comprehensive metabolic panel Cholesterol, LDL, direct Comprehensive metabolic panel Cholesterol, LDL, direct 2. Presence of cardiac pacemaker V45.01 Z95.0 3. Ventricular septal defect (VSD) 745.4 Q21.0 4. Aortic valve insufficiency, etiology of cardiac valve disease unspecified 424.1 I35.1 5. Paroxysmal A-fib (CMS/HCC) ([facility]) 427.31 I48.0 dilTIAZem (CARDIZEM) 60 mg tablet 6. Sick sinus syndrome (CMS/HCC) ([facility]) 427.81 I49.5 CBC with auto differential CBC with auto differential Cholesterol, LDL, direct Comprehensive metabolic panel Comprehensive metabolic panel Cholesterol, LDL, direct Comprehensive metabolic panel Cholesterol, LDL, direct CANCELED: Cholesterol, LDL, direct CANCELED: Comprehensive metabolic panel CANCELED: Cholesterol, LDL, direct CANCELED: Comprehensive metabolic panel CANCELED: Comprehensive metabolic panel CANCELED: Cholesterol, LDL, direct 7. Palpitation 785.1 R00.2 dilTIAZem (CARDIZEM) 60 mg tablet 8. Acute on chronic diastolic heart failure (CMS/HCC) (HCC) 428.33 I50.33 9. ASVD (arteriosclerotic vascular disease) 440.9 I70.90 10. 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 Neuroforaminal stenosis of lumbar spine 724.02 M48.061 12. Tear of left acetabular labrum, sequela 905.7 S73.192S 13. History of osteoporosis V13.59 Z87.39 14. Low-tension glaucoma, bilateral, severe stage 365.12 H40.1233 365.73 PLEASE REVIEW this CARE TEAM and advise of any need for INCLUSIONS OR DELETIONS so I can keep your team informed of important changes in your health Patient Care Team: Nabila King MD as PCP - General (Internal Medicine) Christine Styles MD as Surgeon (Ophthalmology) Sita Magana MD as Consulting Physician (Internal Medicine) Regulo Pandey MD as Referring Physician (Cardiovascular Disease) Gigi Méndez MD as Referring Physician (Cardiology) Bc Martinez MD as Consulting Physician (Cardiology) BRING IN ALL PILL BOTTLES TO EVERY OFFICE VISIT YOUR MEDICAL TEAM NEEDS YOU TO ACTIVELY PARTICIPATE IN YOUR HEALTH, in the end GOOD OR BAD OUTCOMESCOUNT ON YOU participating with your medical team. MEDICATION AND SUPPLEMENTS alter our body and health in ways that your doctors needs to take into account along with your symptoms and physical findings. To better understand AND appropriately advise on your current health concerns, ...IT IS ESSENTIAL THAT YOU BRING IN ALL PILL BOTTLES TO EVERY OFFICE VISIT. PLEASE SIGN UP FOR MyCHART so that you may have access to your labs and chart documentation IF YOU HAVE TROUBLE WITH THIS PROCESS CALL [phone] Annual Exam finds the need for continued diet and exercise to maintain this level of health. Please review the comprehensive yearly physical examination worksheet created for you today. laboratory results, immunization recommendations, and any tests require for preventive health are documented on this information sheet. OTHER IMPORTANT RECOMMENDATIONS NEGOTIATED THIS VISIT CORE and BODY strength training THE PILATES BOOK AND LOOP EXERCISE BANDS ARE AVAILABLE ON [employer] For core strengthening try Pilates = The complete guide to Jason Estrella techniques of physical conditioning by Pablito Landrum For body strengthening use exercise loops or bands , FIT SIMPLIFY is a very good exercise loop the comes with a complete exercise program CHANGES FOR YOUR SLEEPING TROUBLE 1. Wake up at the same time every day = 7:00 a.m. -get exposure to natural bright sunlight - if this light exposure is not available in your home you can use 10,000 lumens light box available for about $100. Light exposure will reset the sleep clock in the brain. 2. Bedtime should be 8 hours before awakening, at 11:00 p.m. 3. Rules around sleep: -avoid all caffeine after 12 noon -restrict alcohol and definitely avoid using alcohol as a sleep aid -limit daytime naps to no more than 1 hour in the early afternoon -keep the sleep environment dark and quiet at night -match the sleeping schedule with people that live in the home 4. Relax time start 1 hour before bed. Turn off all computer electronics, you may do any non- interactive activity that is relaxing for you: Read a book, stretch, watching relaxing television show--but avoid eating and avoid strenuous exercise. 5. If you are a worrier: Write a worry list to save for the daylight hours. It is normal to wake up several times per night, do not allow yourself to review any of the activities that are on your list. [place] this work for the next day. 6. Cognitive behavioral therapy is the 1st intervention for sleep difficulties that do not respond to the above-noted interventions: 5 published research trials have proven cognitive behavioral therapy = CBT is highly effective for sleep disturbance with beneficial effects lasting over 1 year. This is available online: The best studied program but I recommend is SHUTi A subscript into this program cost about $100, is highly effective and does not require leaving thehome to attend psychologist visits. CHIEF COMPLAINT Annual Exam HISTORY OF PRESENT ILLNESS Lisa Conn returns today for Annual Medicare Examination, Medication Refill Management, discussion of Chronic Medical Problems associated orders and medications as well as Her concerns detailedin this HPI and the AVS note sent home with her. Issues discussed today included all new lab orders for the next follow-up visit, results of currentlab work, Annual Health Maintenance Recommendations ( Documented on the separately scanned in AMS Annual Physical Exam Worksheet ) and a brown bag medication review with all medications brought to the office, Refill Management where indicated ORDERS FROM LAST VISIT WITH PR 12/14/[address] Martinez office to get a download off of her pacemaker and make sure that in the past 15 days she has had no AFib, when you contact the office inform them that she could not tolerate 60 mg t.i.d. Cardizem because of low blood pressure and weakness, she is tolerating 30 t.i.d. 2. No labs for the annual visit scheduled in March, she will be seeing Dr. Martinez for lab update DETAILS REGARDING THIS VISIT: Lisa reports feeling well since Dr. Martinez took over care of her arrhythmia and please put the pacemaker in 1. Annual physical exam Documented on the annual information sheet. Her very complicated care needs are reviewed here todayall really in pretty good shape since she had the pacemaker and the management from Dr. Martinez FURTHER NON ANNUAL PHYSICAL DETAILS REGARDING THIS VISIT required an additional 28 [id number] minutes of care time: 2. Presence of cardiac pacemaker 3. Ventricular septal defect (VSD) 4. Aortic valve insufficiency, etiology of cardiac valve disease unspecified 5. Paroxysmal A-fib (CMS/HCC) ([facility]) Exam consistent with paced rhythm, blood pressure elevated in the office but was well controlled athome. Will continue on Cardizem. Other cardiac medications are managed by Dr. Martinez including Eliquis dosed according to her body size and age. He will be evaluating whether she continues to haveatrial fibrillation at her upcoming appointment and decide on long-term anticoagulation at that visit. dilTIAZem (CARDIZEM) 60 mg tablet; Take 0.5 tablets (30 mg total) by mouth 3 (three) times a day Dispense: 135 tablet; Refill: 3 8. Acute on chronic diastolic heart failure (CMS/HCC) (HCC) The diastolic heart failure resolved with rhythm control, will await echocardiogram to see if the pressures have normalized 9. ASVD (arteriosclerotic vascular disease) Atherosclerosis noted in the vasculature on previous scans, she is no coronary disease and continues healthy lifestyle interventions. LDL cholesterol update his order 10. 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 Neuroforaminal stenosis of lumbar spine 12. Tear of left acetabular labrum, sequela Increased pain left hip related to both of these problems and increase lifting activities caring for her sister who just had knee replacement and has severe scoliosis and broken isabela in her back. Willplan Pilates to improve strength and consider orthopedic referral if necessary 13. History of osteoporosis Completed 13 years total treatment with bisphosphonates she does not want any further DEXA bone density testing and continues balance and strength exercise plus calcium vitamin-D in the diet 14. Low-tension glaucoma, bilateral, severe stage For her glaucoma eye care continues under the care of Dr. STYLES. Referred to Dr. 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 Qeuen, single tubular adenoma rectum DILATION AND CURETTAGE, DIAGNOSTIC / THERAPEUTIC 05/15/2013 (-) Dr. Wagner, benign endocervical polyp GLAUCOMA SURGERY Bilateral Filtering Bleb OTHER SURGICAL HISTORY Valvular Heart Disease 2xAR, Ant MVP: OTHER SURGICAL HISTORY uterine suspension surgery FAMILY HISTORY family history includes Glaucoma in her sister; Macular degeneration in her father; Osteoporosis inher daughter, father, and mother; Other in her father; Retinal detachment in her sister; Scoliosis in her sister. 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 Negative for fatigue, fever and unexpected weight change. HENT: Negative for congestion, dental problem, hearing loss, postnasal drip, sinus pressure, sore throat and trouble swallowing. Eyes: Negative for pain, discharge, itching and visual disturbance. Respiratory: Negative for cough, chest tightness, shortness of breath and wheezing. Cardiovascular: Negative for chest pain, palpitations and leg swelling. Gastrointestinal: Negative for abdominal distention, abdominal pain, anal bleeding, blood in stool,constipation, diarrhea, nausea, rectal pain and vomiting. Endocrine: Negative for cold intolerance, heat intolerance and polyuria. Genitourinary: Negative for difficulty urinating, dysuria, flank pain, frequency, hematuria, menstrual problem, pelvic pain and vaginal discharge. 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 Negative for gait problem, joint swelling and myalgias. Skin: Negative for color change and rash. Neurological: Negative for dizziness, weakness and headaches. Hematological: Negative for adenopathy. Does not bruise/bleed easily. Psychiatric/Behavioral: Negative for behavioral problems, dysphoric mood and sleep disturbance. Thepatient is nervous/anxious (concerned about her granddaughter with OCD needing some CBT, offered the [facility] as a potential provider). MEDICATIONS CHANGED / CLEANED UP THIS VISIT Medications Discontinued During This Encounter Medication Reason dilTIAZem (CARDIZEM) 60 mg tablet Reorder levothyroxine (SYNTHROID) 50 mcg tablet Reorder MEDICATION LIST AT CONCLUSION OF THIS VISIT Current Outpatient Medications Ordered in [facility] Medication Sig Dispense Refill apixaban (ELIQUIS) 2.5 mg tablet 1 tablet (2.5 mg total) 2 (two) times a day ketorolac (ACULAR LS) 0.4 % drops Administer 1 drop into both eyes 3 (three) times a day (Patient taking differently: Administer 1 drop into both eyes daily as needed) 5 mL 11 multivitamin capsule Take 1 capsule by mouth daily dilTIAZem (CARDIZEM) 60 mg tablet Take 0.5 tablets (30 mg total) by mouth 3 (three) times a day 135tablet 3 levothyroxine (SYNTHROID) 50 mcg tablet Take 1 tablet (50 mcg total) by mouth nightly 90 tablet 3 No current Epic-ordered facility-administered medications on file. ALLERGIES is allergic to clarithromycin, mastisol adhesive [gum xbdfyc-buzmfn-dgjq-alcohol], metronidazole, other, sulfa (sulfonamide antibiotics), and chloramphenicol. PHYSICAL EXAM body mass index is 20.63 kg/m??. Vitals: 07/04/22 1007 07/04/22 1108 BP: 150/70 122/74 BP Location: Left arm Patient Position: Sitting Pulse: 82 Resp: 16 Temp: 36.1 ??C (96.9 ??F) TempSrc: Temporal SpO2: 97% Weight: 56.2 kg (124 lb) Height: 165.1 cm (5' 5 ) Physical Exam Vitals and nursing note reviewed. Constitutional: General: She is not in acute distress. Appearance: Normal appearance. She is well-developed and normal weight. She is not ill-appearing. HENT: Head: Normocephalic and atraumatic. Right Ear: Tympanic membrane and external ear normal. Left Ear: Tympanic membrane and external ear normal. Nose: Nose normal. No congestion or rhinorrhea. Mouth/Throat: Mouth: Mucous membranes are moist. Pharynx: Oropharynx is clear. No oropharyngeal exudate or posterior oropharyngeal erythema. Eyes: General: No scleral icterus. Extraocular Movements: Extraocular movements intact. Conjunctiva/sclera: Conjunctivae normal. Pupils: Pupils are equal, round, and reactive to light. Neck: Thyroid: No thyromegaly. Cardiovascular: Rate and Rhythm: Normal rate and regular rhythm. Pulses: Normal pulses. Heart sounds: Normal heart sounds. No murmur heard. No gallop. Comments: Pacer well healed Pulmonary: Effort: Pulmonary effort is normal. Breath sounds: Normal breath sounds. No wheezing, rhonchi or rales. Abdominal: General: Bowel sounds are normal. There is no distension. Palpations: Abdomen is soft. There is no mass. Tenderness: There is no abdominal tenderness. There is no guarding or rebound. Hernia: No hernia is present. Genitourinary: Comments: Genitourinary examination excluded Musculoskeletal: General: Tenderness (minimal at the left hip) present. No swelling, deformity or signs of injury. Normal range of motion. Cervical back: Neck supple. Right lower leg: No edema. Left lower leg: No edema. Lymphadenopathy: Cervical: No cervical adenopathy. Skin: General: Skin is warm and dry. Coloration: Skin is not jaundiced. Findings: No bruising, erythema, lesion or rash. Neurological: General: No focal deficit present. Mental Status: She is alert and oriented to person, place, and time. Mental status is at baseline. Cranial Nerves: No cranial nerve deficit. Sensory: No sensory deficit. Motor: No weakness or abnormal muscle tone. Coordination: Coordination normal. Gait: Gait normal. Deep Tendon Reflexes: Reflexes are normal and symmetric. Reflexes normal. Psychiatric: Mood and Affect: Mood normal. Behavior: Behavior normal. Thought Content: Thought content normal. Judgment: Judgment normal. Comprehensive physical examination was completed today and specifics of the testing and counseling are recorded on the scanned Comprehensive Yearly Physical Exam Worksheet. . Lisa Conn personal health goals were negotiated and agreed upon today. Assessment and plan for new and ongoing medical problems were reviewed and agreed upon. Risk, benefit and side effects of medications appropriate for care were reviewed and sent eRx to the patient's requested pharmacies. All current lab work was reviewed and discussed. Appropriate labs and referrals planned for the follow-up visit were reviewed, discussed and completed. The discussion is summarized in this Assessment and Plan shared with her in the After Visit Summary = VS. REVIEW OF HEALTH MAINTENANCE TESTING The health maintenance schedule was reviewed IN DETAIL with the patient and ACCURATELY RECORDED ON THE [facility] ANNUAL PHYSICAL COUNSELING SHEET PROVIDED TO THE PATIENT TODAY, I have also provided in computerized printed form in the after visit summary: As the ???HMLIST ?? Health Maintenance Topic Date Due Osteoporosis Screening-Bone Density Scan 01/31/2021 Fall Risk Assessment 07/04/2023 Depression Screening-PHQ 07/04/2023 Well Visit 65+ 07/04/2023 DTaP/Tdap/Td Vaccine (2 - Tdap) 03/21/2025 Covid-19 Vaccine Completed Pneumococcal vaccine 65+ Completed Influenza Vaccine Completed Zoster Vaccines Completed WHICH IS INCOMPLETE UNTIL A SOLUTION CAN BE FOUND FOR THE 24 HR TURN AROUND UPDATE PROBLEM IN EPIC. That HEALTH MAINTENANCE REVIEW include the following evaluation and recommendations: 1. A personalized Diet and exercise program recommendation agreed upon by the patient, 2. Referral for preventative services that are now due or later this year, 3. PHYSICAL EXAM FINDINGS ARE listed in the physical exam section of this note: Including balance and gait evaluation with ???get up and go testing ?? , the bedside hearing screening for each ear perDOT physical protocol,, 4. REVIEW OF ALL HEALTH MAINTENANCE TESTING DOCUMENTED WHEN POSSIBLE IN EPIC FLOW SHEETS INCLUDING:PHQ depression screening, HRA screening, cognitive evaluation with 3 ITEM RECALL( with clock draw and BARD ADL/IADL screening when appropriate), FALL RISK ASSESSMENT. Appropriate documented not available on epic are on the scanned preventive health document created today. HEALTH TEACHER REVIEW COMPLETED WITH administrative tasks including DME provider recommendations when Appropriate. THE PHARMACY SECTION CONTAIN primary secondary and mail order pharmacy choices selected by Lisa King M.D. THE FOLLOWING CLERICAL INFORMATION DOES NOT DUE TO BE SENT IN A PRINTED DOCUMENT LABS REVIEWED WITH Lisa Conn THIS VISIT Hospital Outpatient Visit on 07/04/2022 Component Date Value Ref Range Status Sodium 07/04/2022 137 135 - 145 mmol/L Final Potassium, pl 07/04/2022 5.0 (H) 3.3 - 4.9 mmol/L Final Chloride 07/04/2022 100 97 - 110 mmol/L Final CO2 07/04/2022 27 22 - 32 mmol/L Final Anion gap 07/04/2022 10 2 - 15 mmol/L Final BUN 07/04/2022 13 8 - 25 mg/dL Final Creatinine 07/04/2022 0.70 0.60 - 1.10 mg/dL Final Glucose 07/04/2022 90 70 - 199 mg/dL Final Calcium 07/04/2022 9.8 8.5 - 10.3 mg/dL Final Bilirubin, total 07/04/2022 0.6 0.1 - 1.2 mg/dL Final Protein, pl 07/04/2022 7.2 6.5 - 8.5 g/dL Final Albumin 07/04/2022 4.8 3.5 - 5.0 g/dL Final Alk phos 07/04/2022 78 40 - 130 Units/L Final ALT 07/04/2022 28 7 - 45 Units/L Final AST 07/04/2022 39 10 - 45 Units/L Final LDL Cholesterol, Direct 07/04/2022 116 <=129 mg/dL Final Thyroid Stimulating Hormone 07/04/2022 1.77 0.30 - 4.20 mcIUnit/mL Final Free T4 07/04/2022 1.22 0.90 - 1.70 ng/dL Final eGFR 07/04/2022 85 mL/min/1.73 m2 Final Office Visit on 03/18/2022 Component Date Value Ref Range Status Pattern Deviation OS 03/18/2022 13.47 Final Pattern Deviation OD 03/18/2022 10.05 Final Mean Deviation OS 03/18/2022 -12.43 Final Mean Deviation OD 03/18/2022 -10.85 Final Lab on 03/02/2022 Component Date Value Ref Range Status CRP 03/02/2022 3.1 <=10.0 mg/L Final Erythrocyte sedimentation rate 03/02/2022 4 1 - 30 mm/hr Final Office Visit on 07/20/2021 Component Date Value Ref Range Status T4,Free(Direct) 10/11/2021 1.31 0.82 - 1.77 ng/dL Final TSH 10/11/2021 1.670 0.450 - 4.500 uIU/mL Final Patient Active Problem List Diagnosis Code History of osteoporosis Z87.39 Low-tension glaucoma, bilateral, 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.023, H01.026 Acute on chronic diastolic heart failure (CMS/HCC) (HCC) I50.33 Ventricular septal defect (VSD) Q21.0 AI (aortic insufficiency) I35.1 History of hematuria Z87.448 ASVD (arteriosclerotic vascular disease) I70.90 History of adenomatous polyp of colon Z86.010 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 History of Helicobacter pylori infection Z86.19 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, E06.3 Sick sinus syndrome (CMS/HCC) (HCC) I49.5 Presence of cardiac pacemaker Z95.0 Labral tear of left hip joint S73.[address] RO[address] EMERGENCY SERVICES MANAGER documented in this encounter Plan of Treatment Not on file documented as of this encounter Procedures Procedure Name Priority Date/Time Associated Diagnosis Comments CBC WITH AUTO DIFFERENTIAL Routine 09/09/2022 2:21 PM [employer]ILRO[address] EMERGENCY SERVICES MANAGER Sick sinus syndrome (CMS/HCC) (HCC) TSH Routine 09/09/2022 2:21 PM [employer] EMERGENCY SERVICES MANAGER 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 T4, FREE Routine 09/09/2022 2:21 PM [employer]ILRO[employer] EMERGENCY SERVICES MANAGER 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 CHOLESTEROL, LDL, DIRECT Routine 09/09/2022 2:21 PM RAILROAD EMERGENCY SERVICES MANAGER Annual physical exam Sick sinus syndrome (CMS/HCC) (HCC) COMPREHENSIVE METABOLIC PANEL Routine 09/09/2022 2:21 PM RAILROAD EMERGENCY SERVICES MANAGER Annual physical exam Sick sinus syndrome (CMS/HCC) (HCC) documented in this encounter Results * (ABNORMAL) Cholesterol, LDL, direct (09/09/2022 2:21 PM RAILROAD EMERGENCY SERVICES MANAGER) LDL Chol, Direct 109(H) 0 - 99 mg/dL [facility] - 01 Blood 09/09/2022 2:21 PM RAILROAD EMERGENCY SERVICES MANAGER 09/09/2022 Narrative [facility] - 09/10/2022 7:36 AM RAILROAD EMERGENCY SERVICES MANAGER Performed at: ??01 - [facility] [address] ??[id number] All Source Analyst: Darek Farrell PhD, Phone: ??[phone] us Nabila King MD LAB BLOOD ORDERABLES Final Result [facility] - * (ABNORMAL) Comprehensive metabolic panel (09/09/2022 2:21 PM [employer]ILROAD EMERGENCY SERVICES MANAGER) Glucose 175(H) 70 - 99 mg/dL [facility] - 01 BUN 18 8 - 27 mg/dL [facility] - 01 Creatinine, Serum 0.80 0.57 - 1.00 mg/dL [facility] - 01 eGFR 72 >59 mL/min/1.7 3 [facility] - 01 BUN/creat ratio 23 12 - 28 [facility] - 01 Sodium 139 134 - 144 mmol/L [facility] - 01 Potassium, sr 4.2 3.5 - 5.2 mmol/L [facility] - 01 Chloride 99 96 - 106 mmol/L [facility] - 01 CO2 24 20 - 29 mmol/L [facility] - 01 Calcium 9.6 8.7 - 10.3 mg/dL [facility] - 01 Protein, sr 6.5 6.0 - 8.5 g/dL [facility] - 01 Albumin 4.4 3.6 - 4.6 g/dL [facility] - 01 Globulin, Total 2.1 1.5 - 4.5 g/dL [facility] - 01 A/G Ratio 2.1 1.2 - 2.2 [facility] - 01 Bilirubin, Total 0.3 0.0 - 1.2 mg/dL [facility] - 01 Alk phos 75 44 - 121 IU/L [facility] - 01 AST 28 0 - 40 IU/L [facility] - 01 ALT 21 0 - 32 IU/L [facility] - 01 Blood 09/09/2022 2:21 PM [employer]RO[employer] EMERGENCY SERVICES MANAGER 09/09/2022 Narrative [facility] - 09/10/2022 7:36 AM [employer]ROAD EMERGENCY SERVICES MANAGER Performed at: ?? - [facility] [address] ??[id number] All Source Analyst: Darek Farrell PhD, Phone: ??[phone] Specimen Comment: A courtesy copy of this report has been sent to the patient us Nabila King MD LAB BLOOD ORDERABLES Final Result [facility] - * T4, free (09/09/2022 2:21 PM RA[employer]ROAD EMERGENCY SERVICES MANAGER) [facility] T4,Free(Direct) 1.20 0.82 - 1.77 ng/dL [facility] - 01 Blood 09/09/2022 2:21 PM [employer]ROAD EMERGENCY SERVICES MANAGER 09/09/2022 Narrative [facility] - 09/10/2022 9:36 AM RAILROAD EMERGENCY SERVICES MANAGER Performed at: ??01 - [facility] ??[id number] All Source Analyst: Darek Farrell PhD, Phone: ??[phone] Specimen Comment: A courtesy copy of this report has been sent to the patient Nabila King MD LAB BLOOD ORDERABLES Final Result Performing Organization Address [facility] Co de Phone Number [facility] - * TSH (09/09/2022 2:21 PM RAILROAD EMERGENCY SERVICES MANAGER) [facility] TSH 1.300 0.450 - 4.500 uIU/mL [facility] - 01 Blood 09/09/2022 2:21 PM RAILROAD EMERGENCY SERVICES MANAGER 09/09/2022 Narrative [facility] - 09/10/2022 9:36 AM RAILROAD EMERGENCY SERVICES MANAGER Performed at: ??01 - [facility] ??[id number] All Source Analyst: Daerk Farrell PhD, Phone: ??[phone] Nabila King MD LAB BLOOD ORDERABLES Final Result Performing Organization Address City/[facility]/ZIP Co de Phone Number [facility] - * CBC with auto differential (09/09/2022 2:21 PM RAILROAD EMERGENCY SERVICES MANAGER) [facility] WBC 6.7 3.4 - 10.8 x10E3/uL [facility] - 01 RBC 4.70 3.77 - 5.28 x10E6/uL [facility] - 01 Hgb 14.6 11.1 - 15.9 g/dL [facility] - 01 Hct 42.8 34.0 - 46.6 % [facility] - 01 MCV 91 79 - 97 fL [facility] - 01 MCH 31.1 26.6 - 33.0 pg [facility] - 01 MCHC 34.1 31.5 - 35.7 g/dL [facility] - 01 Rdw 13.1 11.7 - 15.4 % [facility] - 01 Platelets 258 150 - 450 x10E3/uL [facility] - 01 Neutrophils pct 66 Not Estab. % [facility] - 01 Lymphs pct 27 Not Estab. % [facility] - 01 Monocytes pct 5 Not Estab. % [facility] - 01 Eosinophils pct 1 Not Estab. % [facility] - 01 Basophil pct 1 Not Estab. % [facility] - 01 Neutrophil abs 4.4 1.4 - 7.0 x10E3/uL [facility] - 01 Lymphs (Absolute) 1.8 0.7 - 3.1 x10E3/uL [facility] - 01 Monocyte abs 0.3 0.1 - 0.9 x10E3/uL [facility] - 01 Eosinophils, abs 0.1 0.0 - 0.4 x10E3/uL [facility] - 01 Basophils, abs 0.1 0.0 - 0.2 x10E3/uL [facility] - 01 Immature Granulocytes 0 Not Estab. % [facility] - 01 Immature Grans (Abs) 0.0 0.0 - 0.1 x10E3/uL [facility] - 01 Blood 09/09/2022 2:21 PM [employer]RO[employer] EMERGENCY SERVICES MANAGER 09/09/2022 Narrative [facility] - 09/10/2022 7:36 AM RAILROAD EMERGENCY SERVICES MANAGER Performed at: ?? - [facility] [address] ??[id number] All Source Analyst: Darek Farrell PhD, Phone: ??[phone] us Nabila King MD LAB BLOOD ORDERABLES Final Result [facility] - * (ABNORMAL) Comprehensive metabolic panel (07/04/2022 11:48 AM RAILROAD EMERGENCY SERVICES MANAGER) Sodium 137 135 - 145 mmol/L [facility] [...] [facility] Blood 07/04/2022 11:4 8 AM RAILROAD EMERGENCY SERVICES MANAGER 07/04/2022 7:06 PM RAILROAD EMERGENCY SERVICES MANAGER us Nabila King MD LAB BLOOD ORDERABLES Final Result [facility] [address] Department [place] [address] * Cholesterol, LDL, direct (07/04/2022 11:48 AM RAILROAD EMERGENCY SERVICES MANAGER) LDL Cholesterol, Direct 116 <=129 mg/dL [facility] Comment: Interpretive Data Ages < or = [...] on 2018. Blood 07/04/2022 11:4 8 AM RAILROAD EMERGENCY SERVICES MANAGER 07/04/2022 7:06 PM RAILROAD EMERGENCY SERVICES MANAGER Result Ricardo King MD LAB BLOOD ORDERABLES Final Result Performing Organization Address [facility] de Phone Number [facility] [address] [facility] [place] [address] * TSH (07/04/2022 11:48 AM RAILROAD EMERGENCY SERVICES MANAGER) Thyroid Stimulating Hormone 1.77 0.30 - 4.20 mcIUnit/mL [facility] Blood 07/04/2022 11:4 8 AM [employer]ROAD EMERGENCY SERVICES MANAGER 07/04/2022 7:06 PM RAILROAD EMERGENCY SERVICES MANAGER Result Ricardo King MD LAB BLOOD ORDERABLES Final Result Performing Organization Address City/[facility] Co de Phone Number [facility] [address] Department of [facility] [place] [address] * T4, free (07/04/2022 11:48 AM RA[employer]ROAD EMERGENCY SERVICES MANAGER) Free T4 1.22 0.90 - 1.70 ng/dL [facility] Blood 07/04/2022 11:4 8 AM RAILROAD EMERGENCY SERVICES MANAGER 07/04/2022 7:06 PM RAILROAD EMERGENCY SERVICES MANAGER us Nabila King MD LAB BLOOD ORDERABLES Final Result [facility] [address] [facility] Department [place] [address] documented in this encounter Visit Diagnoses Diagnosis Annual physical exam- Primary Routine general medical examination at a health care facility Presence of cardiac pacemaker Cardiac pacemaker in situ Ventricular septal defect (VSD) Aortic valve insufficiency, etiology of cardiac valve disease unspecified Paroxysmal A-fib (CMS/HCC) (HCC) Sick sinus syndrome (CMS/HCC) (HCC) Sinoatrial node dysfunction Palpitation Palpitations Acute on chronic diastolic heart failure (CMS/HCC) (HCC) Acute on chronic diastolic heart failure ASVD (arteriosclerotic vascular disease) 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 Tear of left acetabular labrum, sequela History of osteoporosis Personal history of other musculoskeletal disorders Low-tension glaucoma, bilateral, severe stage documented in this encounter Discontinued Medications Medication Sig Discontinue Reason Start Date End Da te dilTIAZem (CARDIZEM) 60 mg tabletIndications:Paroxy smal A-fib (CMS/HCC) (HCC),Palpitation Take 1 tablet (60 mg total) by mouth 3 (three) times a day Reorder 11/24/2021 07/04/2022 levothyroxine (SYNTHROID) 50 mcg tabletIndications:Hypoth yroidism due to Alan's thyroiditis Take 1 tablet (50 mcg total) by mouth nightly Reorder 04/15/2022 07/04/2022 documented as of this encounter Care Teams Prefitter Doors Relationship Specialty Start Date End Date Nabila King MD [address] [place] [address] PCP - General Internal Medicine 12/16/20 Christine Styles MD Surgeon Ophthalmology 12/13/20 Sita Magana MD [address] [place] [address] Consulting Physician Internal Medicine 12/13/20 Regulo Pandey MD [address] [place] [address] Referring Physician Cardiovascular Disease 12/16/20 Gigi Méndez MD [address] [place] [address] Referring Physician Cardiology 02/18/21 Bc Martinez MD [address] [place] [address] Consulting Physician Cardiology 10/22/21 08/21/23 documented as of this encounter
--- OUTSIDE RECORDS SUMMARY | 2024-08-09 17:47 | XMS_ITS | Encounter Summary ---
Author Organization [facility] Address [address] [facility] [facility] [address] [place] [address] Care Team Providers Care Aviation Consultant Name Role Phone Christine Kendall MD Unavailable [phone] Sita Magana MD Unavailable [phone] Nabila King MD Primary Care Provider + [phone] Regulo Pandey MD Unavailable Gigi Méndez MD Unavailable [phone] Bc Martinez MD Unavailable [phone] Encounter Details Date Type Department Care Team (Late st Contact Info) Description 07/04/2022 12:00 PM GLOBAL MOBILITY SPECIALIST [facility] [address] [place] [id number] 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; Acute on chronic diastolic heart failure (CMS/HCC) (HCC) Social History Tobacco Use Types Packs/Day Years [...] on file Legal Sex Female 8:14 PM GLOBAL MOBILITY SPECIALIST Gender Identity Not on file Sexual Orientation Not on file 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 Not on file documented as of this encounter Plan of Treatment Not on file documented as of this encounter Visit Diagnoses Diagnosis 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 Acute on chronic diastolic heart failure (CMS/HCC) (HCC) Acute on chronic diastolic heart failure documented in this encounter Care Teams Aviation Consultant Relationship Specialty Start Date End Date Nabila King MD [address] [place] [address] PCP - General Internal Medicine 12/16/20 Christine Kendall MD Surgeon Ophthalmology 12/13/20 Stia Magana MD [address] [place] [address] Consulting Physician Internal Medicine 12/13/20 Regulo Pandey MD [address] [place] [address] Referring Physician Cardiovascular Disease 12/16/20 Gigi Méndez MD [address] [place] [address] [address] [place] [address] Referring Physician Cardiology 02/18/21 Bc Martinez MD [facility] [place] [address] Consulting Physician Cardiology 10/22/21 08/21/23 documented as of this encounter
--- OUTSIDE RECORDS SUMMARY | 2024-08-09 17:47 | XMS_ITS | Encounter Summary ---
Author Organization [facility] Address [address] [facility] [address] [place] [id number] Care Team Providers Care Serology Teacher Name Role Phone Christine Kendall MD Unavailable [phone] Sita Magana MD Unavailable [phone] Nabila King MD Primary Care Provider + [phone] Regulo Pandey MD Unavailable Gigi Méndez MD Unavailable [phone] Bc Martinez MD Unavailable [phone] Reason for Visit * Reason Comments Follow-up 6 month Encounter Details Date Type Department Care Team (Late st Contact Info) Description 01/10/2023 9:00 AM CDT Office Visit [facility] [address] [place] [address] Nabila King MD [address] [place] [address] Burning mouth syndrome (Primary Dx); Periodontal disease; Rosacea; Myofascial pain; 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; Sciatica of left side; Palpitation; Paroxysmal A-fib (CMS/HCC) (HCC); Ventricular tachycardia (HCC); 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; Sleep disturbance; Adjustment disorder with anxiety; Medication monitoring encounter; Multiple-type hyperlipidemia Social History Tobacco Use Types [...] on file Legal Sex Female 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 Gender Identity Not on file Sexual Orientation Not on file 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 Not on file documented as of this encounter Last Filed Vital Signs Vital Sign Reading Time Taken Comments Blood Pressure 124/74 01/10/2023 9:10 AM CDT Pulse 81 01/10/2023 9:10 AM CDT Temperature 36.3 ??C (97.3 ??F) 01/10/2023 9:10 AM CD T Respiratory Rate 16 01/10/2023 9:10 AM CDT Oxygen Saturation 98% 01/10/2023 9:10 AM CDT Inhaled Oxygen Concentration - - Weight 54.9 kg (121 lb) 01/10/2023 9:10 AM CDT Height - - Body Mass Index 20.14 07/04/2022 10:07 AM 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 Alaniz evaluate for oral allergic reaction to her dental work causing burning mouthsyndrome She would like a paper copy of her carotid Doppler, her echocardiogram and stress test from Dr. Martinez and they are scanned documents please get those to her. 3. Labs for annual physical in six-month = fasting lipid panel, chemistry panel , free T4, TSH, CBC, iron profile = multi type hyperlipidemia, atrial fibrillation medication monitoring, please send copies to Dr. Martinez ORDERS FOR Lisa Conn TO ARRANGE 1. lifestyle changes --Start block therapy to release the muscle tension in the neck and shoulders For mind fullness therapy to help you with sleep at night more information about sleep listed below --consider signing up with Rox Mcneal to work on cognitive behavioral therapy to calm down and learn mindfulness training --consider visiting Dr. Valadez if you continue to have muscular tension, he can help with chiropractic 2. Medication changes Daily Eliquis for a year and if you have no AFib by the Dr. Martinez will probably stop the Eliquis Return in about 6 months (around 07/13/2023) for Annual physical, Recheck. Orders Placed This Encounter Procedures Lipid panel Comprehensive metabolic panel T4, free TSH CBC with auto differential Iron profile w/ IBC BRING IN ALL PILL BOTTLES TO EVERY [...] EVERY OFFICE VISIT. PLEASE SIGN UP FOR [facility] so that you may have access to your labs and chart documentation IF YOU HAVE TROUBLE WITH THIS PROCESS CALL [phone] CHANGES FOR YOUR SLEEPING TROUBLE 1. Wake [...] the activities that are on your list. Shelly this work for the next day. 6. [...] require leaving thehome to attend psychologist visits. 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 Alaniz evaluate for oral allergic reaction to her dental work causing burning mouthsyndrome She would like a paper copy of her carotid Doppler, her echocardiogram and stress test from Dr. Martinez and they are scanned documents please get those to her. 3. Labs for annual physical in six-month = fasting lipid panel, chemistry panel , free T4, TSH, CBC, iron profile = multi type hyperlipidemia, atrial fibrillation medication monitoring, please send copies to Dr. Martinez ORDERS FOR Lisa Conn TO ARRANGE 1. lifestyle changes --Start block therapy to release the muscle tension in the neck and shoulders For mind fullness therapy to help you with sleep at night more information about sleep listed below --consider signing up with Rox Mcneal to work on cognitive behavioral therapy to calm down and learn mindfulness training --consider visiting Dr. Valadez if you continue to have muscular tension, he can help with chiropractic 2. Medication changes Daily Eliquis for a year and if you have no AFib by the Dr. Martinez will probably stop the Eliquis Return in about 6 months (around 07/13/2023) for Annual physical, Recheck. Orders Placed This Encounter Procedures Lipid panel Comprehensive metabolic panel T4, free TSH CBC with auto differential Iron profile w/ IBC BRING IN ALL PILL BOTTLES TO EVERY [...] EVERY OFFICE VISIT. PLEASE SIGN UP FOR [facility] so that you may have access to your labs and chart documentation IF YOU HAVE TROUBLE WITH THIS PROCESS CALL [phone] CHANGES FOR YOUR SLEEPING TROUBLE 1. Wake [...] the activities that are on your list. Shelly this work for the next day. 6. [...] thehome to attend psychologist visits. CHIEF COMPLAINT Follow-up (6 month) HISTORY OF PRESENT ILLNESS Lisa Conn returns today for her six-month follow-up to review Chronic medical problems and discuss her concerns, Review new orders, and brown bag medication review with all medications brought to the office, Refill Management where indicated . Important details of this conversation, exam, and plan for care are summarized at the top and bottom of this comprehensive note for the readers quick access to the information. ORDERS to review with her FROM LAST VISIT WITH ME 07/04/2022 1. Free T4 , TSH today and in 6 months = hypothyroid adult LDL, chemistry profile, CBC = sick sinus syndrome medication monitoring 2. Advanced directives were updated these need to be copy for epic scanning Advanced directives AMS staff will copy [...] forms to my office. ORDERS FOR Lisa Rodriguez Fabien TO ARRANGE 1. lifestyle changes Try the [...] indicated And Whether Eliquis is necessary long-term DETAILS REGARDING THIS VISIT: Lisa reports feeling poorly in quite anxious about her physical state ongoing use of Eliquis discomfort in her mouth and several somatic symptoms 1. Burning mouth syndrome 2. Periodontal disease 3. Rosacea She is pursuing dermatologic care in his receiving low doses of Vibramycin 50 mg daily for her rosacea. She is in dental care for periodontal disease and has a difficult time brushing her teeth because of the discomfort. She relates a diagnosis that she made of burning mouth syndrome. She is multiple implants in her mouth and probably has some type of allergic reaction to these. She is referred to Dr. Alaniz to investigate and perhaps eliminate the source of her problem. In the meantime proper dental hygiene is encouraged. 4. Myofascial pain 5. 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 Sciatica of left side Extremely anxious about multiple areas of pain in the body there myofascial and postural in nature.Explain the need for fascia release with several options including stretching, yoga, block therapy,physical therapy and the need for daily exercise. Advised against medications for this problem 7. Palpitation: Sick sinus syndrome status post pacemaker with Dr. Martinez 8. Paroxysmal A-fib (CMS/HCC) (HCC) 9. Ventricular tachycardia (HCC) She remains very concerned about the medications prescribed by Dr. Martinez including her Eliquis.She has multiple arrhythmia issues a successfully placed defibrillator which is perfectly seated and not the cause of her shoulder discomfort. She is to continue an entire year of Eliquis with the pacemaker monitoring to determine if she actually still has series arrhythmia requiring Eliquis long-term. She is having no side effects from the medicine and we agreed to update labs monitoring the safety of these pills and have her contact me if she develops bleeding issue dilTIAZem (CARDIZEM) 60 mg tablet; Take 0.5 tablets (30 mg total) by mouth 3 (three) times a day Dispense: 135 tablet; Refill: 2 Lipid panel; Future Comprehensive metabolic panel; Future T4, free; Future TSH; Future CBC with auto differential; Future Iron profile w/ IBC; Future Lipid panel Comprehensive metabolic panel T4, free TSH CBC with auto differential Iron profile w/ TIBC 10. 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 Informed the tablet she is using is dye free and does not cause allergic reaction in mouth or body levothyroxine (SYNTHROID) 50 mcg tablet; Take 1 tablet (50 mcg total) by mouth nightly Dispense: 90tablet; Refill: 2 T4, free; Future TSH; Future T4, free TSH 11. Sleep disturbance 12. Adjustment disorder with anxiety Much more anxious since the of her partner earlier this year, having a bit of dysphoric mood as well advised the addition of trazodone instead of her current use of Benadryl products. Proper interventions for sleep hygiene outlined on the AVS and reviewed in detail today. Further counseling referral may be necessary. traZODone (DESYREL) 50 mg tablet; Take 0.5-1 tablets (25-50 mg total) by mouth nightly Dispense: 30tablet; Refill: 5 13. Medication monitoring encounter 14. Multiple-type hyperlipidemia Lipid panel; Future Comprehensive metabolic panel; Future T4, free; Future TSH; Future CBC with auto differential; Future Iron profile w/ IBC; Future Lipid panel Comprehensive metabolic panel T4, free TSH CBC with auto differential Iron profile w/ IBC SOCIAL HISTORY Social History Tobacco Use Smoking status: Never Smokeless tobacco: Never Substance and Sexual Activity Drug use: No Sexual activity: Not Currently Partners: Male Alcohol Use: Not on file REVIEW OF SYSTEMS Review of Systems Constitutional: Positive for appetite change and fatigue. Negative for activity change, fever and unexpected weight change. HENT: Positive for dental problem and sinus pressure. Negative for congestion, hearing loss, postnasal drip, sore throat and trouble swallowing. Eyes: Negative [...] and vaginal discharge. Musculoskeletal: Positive for arthralgias, myalgias and neck stiffness. Negative for gait problem and joint swelling. Skin: Negative for color change and rash. Neurological: Negative for dizziness, weakness and headaches. Hematological: Negative for adenopathy. Does not bruise/bleed easily. Psychiatric/Behavioral: Positive for sleep disturbance. Negative for behavioral problems and dysphoric mood. The patient is nervous/anxious. Breast: Negative for tenderness and lump(s). MEDICATIONS CHANGED / CLEANED UP THIS VISIT Medications Discontinued During This Encounter Medication Reason dilTIAZem (CARDIZEM) 60 mg tablet Reorder levothyroxine (SYNTHROID) 50 mcg tablet Reorder MEDICATION LIST AT CONCLUSION OF THIS VISIT Current Outpatient Medications Ordered in [facility] Medication Sig Dispense Refill acetaminophen (TYLENOL) 500 mg tablet Take 1 tablet (500 mg total) by mouth every 6 (six) hours as needed for pain apixaban (ELIQUIS) 2.5 mg tablet 1 tablet (2.5 mg total) 2 (two) times a day doxycycline hyclate (VIBRAMYCIN) 50 mg capsule Take 1 capsule (50 mg total) by mouth 2 (two) times a day With food ketorolac (ACULAR LS) 0.4 % drops Administer 1 drop into both eyes 3 (three) times a day (Patient taking differently: Administer 1 drop into both eyes daily as needed) 5 mL 11 melatonin 5 mg tablet Take 1 tablet (5 mg total) by mouth nightly multivitamin capsule Take 1 capsule by mouth daily omega-3/dha/epa/dpa/fish oil (OMEGA-3 2100 ORAL) Take by mouth turmeric root extract 500 mg capsule Take by mouth dilTIAZem (CARDIZEM) 60 mg tablet Take 0.5 tablets (30 mg total) by mouth 3 (three) times a day 135tablet 2 levothyroxine (SYNTHROID) 50 mcg tablet Take 1 tablet (50 mcg total) by mouth nightly 90 tablet 2 traZODone (DESYREL) 50 mg tablet Take 0.5-1 tablets (25-50 mg total) by mouth nightly 30 tablet 5 No current [facility]-ordered facility-administered medications on file. ALLERGIES is allergic to clarithromycin, mastisol adhesive [gum xlmuir-dqjoaf-qmyj-alcohol], metronidazole, other, sulfa (sulfonamide antibiotics), and chloramphenicol. PHYSICAL EXAM body mass index is 20.14 kg/m??. Vitals: 01/10/23 0910 BP: 124/74 BP Location: Left arm Patient Position: Sitting Pulse: 81 Resp: 16 Temp: 36.3 ??C (97.3 ??F) TempSrc: Temporal SpO2: 98% Weight: 54.9 kg (121 lb) Physical Exam Vitals and nursing note [...] to light. Neck: Thyroid: No thyromegaly. Comments: Subacromial impingement with findings of marked diminished range of motion of the scapulaon the ribcage and forward displacement of the humerus in the glenoid leading to supraspinatus tendon impingement and biceps tendon irritation . There is absolutely no irritation at the pacemaker site left upper chest Cardiovascular: Rate and Rhythm: Normal rate and regular rhythm. Heart sounds: Normal heart sounds. No murmur heard. No gallop. Comments: Pacemaker well-healed left upper chest without any loosening of the pocket or tenderness surrounding the units and it does not interfere with range of motion of the shoulder Pulmonary: Effort: Pulmonary effort is normal. Breath sounds: Normal breath sounds. No wheezing, rhonchi or rales. Abdominal: General: Bowel sounds are normal. There is no distension. Palpations: Abdomen is soft. There is no mass. Tenderness: There is no abdominal tenderness. Hernia: No hernia is present. Musculoskeletal: General: Tenderness and deformity present. Cervical back: Neck supple. Right lower leg: No edema. Left lower leg: No edema. Comments: Related to the kyphosis problems Lymphadenopathy: Cervical: No cervical adenopathy. Skin: General: Skin is warm and dry. Findings: No erythema, lesion or rash. Neurological: General: No focal deficit present. Mental Status: She is alert and oriented to person, place, and time. Mental status is at baseline. Cranial Nerves: No cranial nerve deficit. Motor: No weakness or abnormal muscle tone. Coordination: Coordination normal. Gait: Gait normal. Psychiatric: Behavior: Behavior normal. Thought Content: Thought content normal. Judgment: Judgment normal. Comments: She is anxious but consolable Follow-up examination was completed today and specifics of the testing and counseling are recorded on the AVS. Lisa Conn's personal health goals were negotiated and agreed [...] shared with her in the After Visit Summary. Nabila King M.D. THE FOLLOWING CLERICAL INFORMATION DOES NOT DUE TO BE SENT IN A PRINTED DOCUMENT BLOOD WORK REVIEWED WITH Lisa Conn [facility] Outpatient Visit on 07/04/2022 Component Date Value [...] 85 mL/min/1.73 m2 Final Office Visit on 07/04/2022 Component Date Value Ref Range Status WBC 09/09/2022 6.7 3.4 - 10.8 x10E3/uL Final RBC 09/09/2022 4.70 3.77 - 5.28 x10E6/uL Final Hgb 09/09/2022 14.6 11.1 - 15.9 g/dL Final Hct 09/09/2022 42.8 34.0 - 46.6 % Final MCV 09/09/2022 91 79 - 97 fL Final MCH 09/09/2022 31.1 26.6 - 33.0 pg Final MCHC 09/09/2022 34.1 31.5 - 35.7 g/dL Final Rdw 09/09/2022 13.1 11.7 - 15.4 % Final Platelets 09/09/2022 258 150 - 450 x10E3/uL Final Neutrophils 09/09/2022 66 Not Estab. % Final Lymphs 09/09/2022 27 Not Estab. % Final Monocytes 09/09/2022 5 Not Estab. % Final Eosinophils 09/09/2022 1 Not Estab. % Final Basophil pct 09/09/2022 1 Not Estab. % Final Neutrophil abs 09/09/2022 4.4 1.4 - 7.0 x10E3/uL Final Lymphs (Absolute) 09/09/2022 1.8 0.7 - 3.1 x10E3/uL Final Monocyte abs 09/09/2022 0.3 0.1 - 0.9 x10E3/uL Final Eosinophils, abs 09/09/2022 0.1 0.0 - 0.4 x10E3/uL Final Basophils, abs 09/09/2022 0.1 0.0 - 0.2 x10E3/uL Final Immature Granulocytes 09/09/2022 0 Not Estab. % Final Immature Grans (Abs) 09/09/2022 0.0 0.0 - 0.1 x10E3/uL Final TSH 09/09/2022 1.300 0.450 - 4.500 uIU/mL Final T4,Free(Direct) 09/09/2022 1.20 0.82 - 1.77 ng/dL Final Glucose 09/09/2022 175 (H) 70 - 99 mg/dL Final BUN 09/09/2022 18 8 - 27 mg/dL Final Creatinine, Serum 09/09/2022 0.80 0.57 - 1.00 mg/dL Final eGFR 09/09/2022 72 >59 mL/min/1.73 Final BUN/creat ratio 09/09/2022 23 12 - 28 Final Sodium 09/09/2022 139 134 - 144 mmol/L Final Potassium, sr 09/09/2022 4.2 3.5 - 5.2 mmol/L Final Chloride 09/09/2022 99 96 - 106 mmol/L Final CO2 09/09/2022 24 20 - 29 mmol/L Final Calcium 09/09/2022 9.6 8.7 - 10.3 mg/dL Final Protein, sr 09/09/2022 6.5 6.0 - 8.5 g/dL Final Albumin 09/09/2022 4.4 3.6 - 4.6 g/dL Final Globulin, Total 09/09/2022 2.1 1.5 - 4.5 g/dL Final A/G Ratio 09/09/2022 2.1 1.2 - 2.2 Final Bilirubin, Total 09/09/2022 0.3 0.0 - 1.2 mg/dL Final Alk phos 09/09/2022 75 44 - 121 IU/L Final AST 09/09/2022 28 0 - 40 IU/L Final ALT 09/09/2022 21 0 - 32 IU/L Final LDL Chol, Direct 09/09/2022 109 (H) 0 - 99 mg/dL Final Office Visit on 03/18/2022 Component Date Value Ref Range Status Pattern Deviation OS 03/18/2022 13.47 Final Pattern Deviation OD 03/18/2022 10.05 Final Mean Deviation OS 03/18/2022 -12.43 Final Mean Deviation OD 03/18/2022 -10.85 Final Lab on 03/02/2022 Component Date Value Ref Range Status CRP 03/02/2022 3.1 <=10.0 mg/L Final Erythrocyte sedimentation rate 03/02/2022 4 1 - 30 mm/hr Final Patient Active Problem List Diagnosis Code History of osteoporosis Z87.39 Low-tension glaucoma, bilateral, severe stage H40.1233 Age-related nuclear cataract of right eye H25.11 Squamous blepharitis of both eyes H01.023, H01.026 [...] Labral tear of left hip joint S73.192A Ventricular tachycardia ([facility]) I47.20 Nabila King M.D. 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 Medication monitoring encounter Multiple-type hyperlipidemia Expected: 04/12/2023, Expires: 01/11/2024 documented as of this encounter Procedures Procedure Name Priority Date/Time Associated Diagnosis Comments IRON PROFILE W/ IBC Routine 04/11/2023 8 :06 AM CDT Paroxysmal A-fib (CMS/HCC) (HCC) Medication monitoring encounter Multiple-type hyperlipidemia CBC WITH AUTO DIFFERENTIAL Routine 04/11/2023 8:06 AM CDT Paroxysmal A-fib (CMS/HCC) (HCC) Medication monitoring encounter Multiple-type hyperlipidemia TSH Routine 04/11/2023 8:06 AM CDT Paroxysmal A-fib (CMS/HCC) (HCC) 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 Medication monitoring encounter Multiple-type hyperlipidemia LIPID PANEL Routine 04/11/2023 8:06 AM CDT Paroxysmal A-fib (CMS/HCC) (HCC) Medication monitoring encounter Multiple-type hyperlipidemia COMPREHENSIVE METABOLIC PANEL Routine 04/11/2023 8:06 AM CDT Paroxysmal A-fib (CMS/HCC) (HCC) Medication monitoring encounter Multiple-type hyperlipidemia documented in this encounter Results * (ABNORMAL) Iron profile w/ IBC (04/11/2023 8:06 AM CDT) Pathologist [facility] Iron Bind.Cap.(TIBC) 340 250 - 450 ug/dL [facility] - 01 UIBC 199 118 - 369 ug/dL [facility] - 01 Iron 141(H) 27 - 139 ug/dL [facility] - 01 Iron saturation 41 15 - 55 % [facility] - 01 Blood 04/11/2023 8:06 AM CDT 04/11/2023 Narrative [facility] - 04/12/2023 7:36 AM CDT Performed at: ??01 - [facility] [address] ??[id number] Outpatient Coding Specialist: Darek Farrell PhD, Phone: ??[phone] us Nabila King MD LAB BLOOD ORDERABLES Final Result [facility] - 01 * CBC with auto differential (04/11/2023 8:06 AM CDT) Pathologist [facility] WBC 5.1 3.4 - 10.8 x10E3/uL [facility] - 01 RBC 5.08 3.77 - 5.28 x10E6/uL [facility] - 01 Hgb 15.7 11.1 - 15.9 g/dL [facility] - 01 Hct 46.6 34.0 - 46.6 % [facility] - 01 MCV 92 79 - 97 fL [facility] - 01 MCH 30.9 26.6 - 33.0 pg [facility] - 01 MCHC 33.7 31.5 - 35.7 g/dL [facility] - 01 Rdw 13.1 11.7 - 15.4 % [facility] - 01 Platelets 266 150 - 450 x10E3/uL [facility] - 01 Neutrophils pct 41 Not Estab. % [facility] - 01 Lymphs pct 48 Not Estab. % [facility] - 01 Monocytes pct 8 Not Estab. % [facility] - 01 Eosinophils pct 2 Not Estab. % [facility] - 01 Basophil pct 1 Not Estab. % [facility] - 01 Neutrophil abs 2.1 1.4 - 7.0 x10E3/uL [facility] - 01 Lymphs (Absolute) 2.4 0.7 - 3.1 x10E3/uL [facility] - 01 Monocyte abs 0.4 0.1 - 0.9 x10E3/uL [facility] - 01 Eosinophils, abs 0.1 0.0 - 0.4 x10E3/uL [facility] - 01 Basophils, abs 0.1 0.0 - 0.2 x10E3/uL [facility] - 01 Immature Granulocytes 0 Not Estab. % [facility] - 01 Immature Grans (Abs) 0.0 0.0 - 0.1 x10E3/uL [facility] - 01 Blood 04/11/2023 8:06 AM CDT 04/11/2023 Narrative [facility] - 04/12/2023 7:36 AM CDT Performed at: ??01 - [facility] [address], [place], [place] [id number] Outpatient Coding Specialist: Darek Farrell PhD, Phone: ??[phone] Specimen Comment: A courtesy copy of this report has been sent to the patient us Nabila King MD LAB BLOOD ORDERABLES Final Result [facility] - 01 * TSH (04/11/2023 8:06 AM CDT) TSH 4.470 0.450 - 4.500 uIU/mL [facility] - 01 Blood 04/11/2023 8:06 AM CDT 04/11/2023 Narrative [facility] - 04/12/2023 7:36 AM CDT Performed at: ??01 - [facility] ??[id number] Outpatient Coding Specialist: Darek Farrell PhD, Phone: ??[phone] us Nabila King MD LAB BLOOD ORDERABLES Final Result [facility] - 01 * Comprehensive metabolic panel (04/11/2023 8:06 AM CDT) Glucose 84 70 - 99 mg/dL [facility] - 01 BUN 20 8 - 27 mg/dL [facility] - 01 Creatinine, Serum 0.87 0.57 - 1.00 mg/dL [facility] - 01 eGFR 65 >59 mL/min/1.73 [facility] - 01 BUN/creat ratio 23 12 - 28 [facility] - 01 Sodium 138 134 - 144 mmol/L [facility] - 01 Potassium, sr 4.4 3.5 - 5.2 mmol/L [facility] - 01 Chloride 101 96 - 106 mmol/L [facility] - 01 CO2 23 20 - 29 mmol/L [facility] - 01 Calcium 9.9 8.7 - 10.3 mg/dL [facility] - 01 Protein, sr 6.7 6.0 - 8.5 g/dL [facility] - 01 Albumin 4.5 3.7 - 4.7 g/dL [facility] - 01 Globulin, Total 2.2 1.5 - 4.5 g/dL [facility] - 01 A/G Ratio 2.0 1.2 - 2.2 [facility] - 01 Bilirubin, Total 0.7 0.0 - 1.2 mg/dL [facility] - 01 Alk phos 70 44 - 121 IU/L [facility] - 01 AST 26 0 - 40 IU/L [facility] - 01 ALT 22 0 - 32 IU/L [facility] - 01 Blood 04/11/2023 8:06 AM CDT 04/11/2023 Narrative [facility] - 04/12/2023 7:36 AM CDT Performed at: ??01 - [facility] [address] ??[id number] Outpatient Coding Specialist: Darek Farrell PhD, Phone: ??[phone] Nabila King MD LAB BLOOD ORDERABLES Final Result [facility] - * (ABNORMAL) Lipid panel (04/11/2023 8:06 AM CDT) Cholesterol 233(H) 100 - 199 mg/dL [facility] - 01 Triglycerides 74 0 - 149 mg/dL [facility] - 01 HDL Cholesterol 89 >39 mg/dL [facility] - 01 VLDL 13 5 - 40 mg/dL [facility] - 01 LDL, calculated 131(H) 0 - 99 mg/dL [facility] - 01 Blood 04/11/2023 8:06 AM CDT 04/11/2023 Narrative [facility] - 04/12/2023 7:36 AM CDT Performed at: ??01 - [facility] [address] ??[id number] Outpatient Coding Specialist: Darek Farrell PhD, Phone: ??[phone] Nabila King MD LAB BLOOD ORDERABLES Final Result [facility] - documented in this encounter Visit Diagnoses Diagnosis Burning mouth syndrome- Primary Glossodynia Periodontal disease Unspecified gingival and periodontal disease Rosacea Myofascial pain Unspecified myalgia and myositis 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 Sciatica of left side Palpitation Palpitations Paroxysmal A-fib (CMS/HCC) (HCC) Ventricular tachycardia (HCC) Paroxysmal ventricular tachycardia 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 Sleep disturbance Unspecified sleep disturbance Adjustment disorder with anxiety Medication monitoring encounter Encounter for therapeutic drug monitoring Multiple-type hyperlipidemia Other and unspecified hyperlipidemia documented in this encounter Discontinued Medications Medication Sig Discontinue Reason Start Date End Da te dilTIAZem (CARDIZEM) 60 mg tabletIndications:Paroxy smal A-fib (CMS/HCC) (HCC),Palpitation Take 0.5 tablets (30 mg total) by mouth 3 (three) times a day Reorder 07/04/2022 01/10/2023 levothyroxine (SYNTHROID) 50 mcg tabletIndications:Hypoth yroidism due to Alan's thyroiditis Take 1 tablet (50 mcg total) by mouth nightly Reorder 07/04/2022 01/10/2023 documented as of this encounter Historical Medications * This list may reflect changes made after this encounter. acetaminophen (TYLENOL) 500 mg tablet Take 1 tablet (500 mg total) by mouth every 6 (six) hours as needed for pain omega-3/dha/epa/d pa/fish oil (OMEGA-3 2100 ORAL) Take by mouth 08/10/2023 turmeric root extract 500 mg capsule Take by mouth 08/10/2023 melatonin 5 mg tablet Take 1 tablet (5 mg total) by mouth nightly 03/06/2024 doxycycline hyclate (VIBRAMYCIN) 50 mg capsule Take 1 capsule (50 mg total) by mouth 2 (two) times a day With food 12/03/2022 05/08/2023 added in this encounter Care Teams Serology Teacher Relationship Specialty Start Date End Date Nabila King MD [address] [place] [address] [address] [place] [address] PCP - General Internal Medicine 12/16/20 Christine Kendall MD Surgeon Ophthalmology 12/13/20 Sita Magana MD [address] [place] [address] [address] [place] [address] Consulting Physician Internal Medicine 12/13/20 Regulo Pandey MD [address] [facility] [place] [address] Referring Physician Cardiovascular Disease 12/16/20 Gigi Méndez MD [address] [place] [address] Referring Physician Cardiology 02/18/21 Bc Martinez MD [address] [place] [address] Consulting Physician Cardiology 10/22/21 08/21/23 documented as of this encounter
--- OUTSIDE RECORDS SUMMARY | 2024-08-09 17:47 | XMS_ITS | Encounter Summary ---
Author Organization [facility] Address [address] [facility] [address] [place] [address] Care Team Providers Care Fleshing Machine Operator Name Role Phone Christine Kendall MD Unavailable [phone] Sita Magana MD Unavailable [phone] Nabila King MD Primary Care Provider + [phone] Regulo Pandey MD Unavailable Gigi Méndez MD Unavailable [phone] Bc Martinez MD Unavailable [phone] Reason for Visit * Reason Comments Follow-up Encounter Details Date Type Department Care Team (Latest Contact Info) Description 04/15/2022 2:00 PM CDT Office Visit [facility] [address] [place] [phone] Elizabeth Daniels, DATA CENTER ENGINEER [address] [place] [address] Neuroforaminal stenosis of lumbar spine (Primary Dx); 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 Social History Tobacco Use Types Packs/Day Years [...] on file 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 Gender Identity Not on file Sexual Orientation Not on file 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 Not on file documented as of this encounter Last Filed Vital Signs Vital Sign Reading Time Taken Comments Blood Pressure 136/76 04/15/2022 2:11 PM CDT Pulse 87 04/15/2022 2:11 PM CDT Temperature 36.2 ??C (97.1 ??F) 04/15/2022 2:11 PM CD T Respiratory Rate 16 04/15/2022 2:11 PM CDT Oxygen Saturation 98% 04/15/2022 2:11 PM CDT Inhaled Oxygen Concentration - - Weight 56.2 kg (124 lb) 04/15/2022 2:11 PM CDT Height - - Body Mass Index 21.28 05/21/2021 9:17 AM CDT documented in this encounter Patient Instructions * Patient Instructions* Elizabeth Daniels NP - 04/15/2022 2:00 PM CDT Orders for AMS STAFF to arrange No new labs or orders Orders for Lisa Conn to arrange Please continue with stretching and medicare compliance auditor Please continue tylenol and Turmeric Use ice or heat for pain Call with any new issues or concerns. Return for Next scheduled follow up. No orders of the defined types were placed in this encounter. A brief review of all your problems, medications, and orders from today ICD-9-CM ICD-10-CM 1. Neuroforaminal stenosis of lumbar spine 724.02 M48.061 2. 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 Return for Next scheduled follow up. No orders of the defined types were placed in this encounter. A brief review of all your problems, medications, and orders from today ICD-9-CM ICD-10-CM 1. Neuroforaminal stenosis of lumbar spine 724.02 M48.061 2. 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 CHIEF COMPLAINT Follow-up HISTORY OF PRESENT ILLNESS Lisa Conn comes to the office today for follow up on low back pain. She started seeing the chiropractor last week. She also started taking Turmeric las week as well. She tries to remain active, but hips get sore when walking. She continues to have deep left groin pain and reports she did have a labrum tear in the past. She is doing exercise from PT and trying to slowly do the stretching. Discussion of symptoms and my assessment and plan: 1. Neuroforaminal stenosis of lumbar spine Patient returns today for follow up on low back and hip pain. Symptoms continue, but patient reports they are tolerable. She on exam has full ROM, no weakness and normal reflexes. She recently started turmeric and medicare compliance auditor last week along with stretching exercises. I did offer referral to pain management but patient declined. She will continue with current management and return as scheduled or sooner if needed. 2. 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 Smoking status: Never Smoker ??? Smokeless tobacco: Never Used Substance and Sexual Activity ??? Drug use: No ??? Sexual activity: Not Currently Partners: Male Alcohol Use: Not on file REVIEW OF SYSTEMS Review of Systems Constitutional: Negative for chills and fever. Respiratory: Negative for chest tightness and shortness of breath. Cardiovascular: Negative for chest pain and palpitations. Gastrointestinal: Negative for constipation, diarrhea, nausea and vomiting. Genitourinary: Negative for difficulty urinating. Musculoskeletal: Positive for arthralgias. Neurological: Positive for numbness (left outer story to the left ankle ). MEDICATIONS CHANGED / CLEANED UP THIS VISIT Medications Discontinued During This Encounter Medication Reason ??? tiZANidine (ZANAFLEX) 2 mg tablet Therapy completed ??? levothyroxine (SYNTHROID) 50 mcg tablet Reorder MEDICATION LIST AT CONCLUSION OF THIS VISIT Current Outpatient Medications Ordered in [facility] Medication Sig Dispense Refill ??? apixaban (ELIQUIS) 2.5 mg tablet 2.5 mg 2 (two) times a day ??? dilTIAZem (CARDIZEM) 60 mg tablet Take 1 tablet (60 mg total) by mouth 3 (three) times a day (Patient taking differently: Take 30 mg by mouth 3 (three) times a day) 90 tablet 1 ??? ketorolac (ACULAR LS) 0.4 % drops Administer 1 drop into both eyes 3 (three) times a day (Patient taking differently: Administer 1 drop into both eyes daily as needed) 5 mL 11 ??? multivitamin capsule Take 1 capsule by mouth daily ??? levothyroxine (SYNTHROID) 50 mcg tablet Take 1 tablet (50 mcg total) by mouth nightly 90 tablet1 No current [facility]-ordered facility-administered medications on file. ALLERGIES is allergic to clarithromycin, mastisol adhesive [gum dphnid-oqjzpl-lxhd-alcohol], metronidazole, other, sulfa (sulfonamide antibiotics), and chloramphenicol. PHYSICAL EXAM body mass index is 21.28 kg/m??. Vitals: 04/15/22 1411 BP: 136/76 BP Location: Left arm Patient Position: Sitting Pulse: 87 Resp: 16 Temp: 36.2 ??C (97.1 ??F) TempSrc: Temporal SpO2: 98% Weight: 56.2 kg (124 lb) Physical Exam Vitals and nursing note reviewed. Constitutional: Appearance: Normal appearance. HENT: Head: Normocephalic and atraumatic. Cardiovascular: Rate and Rhythm: Normal rate and regular rhythm. Heart sounds: Normal heart sounds. Pulmonary: Effort: Pulmonary effort is normal. Breath sounds: Normal breath sounds. Musculoskeletal: General: No tenderness or deformity. Normal range of motion. Skin: General: Skin is warm and dry. Neurological: General: No focal deficit present. Mental Status: She is alert and oriented to person, place, and time. Motor: No weakness. Gait: Gait normal. Deep Tendon Reflexes: Reflexes normal. Psychiatric: Mood and Affect: Mood normal. Behavior: Behavior normal. Follow-up examination was completed today and specifics [...] with her in the After Visit Summary. MYKE Sneed-STARLA THE FOLLOWING CLERICAL INFORMATION DOES NOT DUE TO BE SENT IN A PRINTED DOCUMENT BLOOD WORK REVIEWED WITH Lisa Conn TODAY Office Visit on 03/18/2022 Component Date Value Ref Range Status ??? Pattern Deviation OS 03/18/2022 13.47 Final ??? Pattern Deviation OD 03/18/2022 10.05 Final ??? Mean Deviation OS 03/18/2022 -12.43 Final ??? Mean Deviation OD 03/18/2022 -10.85 Final Lab on 03/02/2022 Component Date Value Ref Range Status ? ? CRP 03/02/2022 3.1 <=10.0 mg/L Final ??? Erythrocyte sedimentation rate 03/02/2022 4 1 - 30 mm/hr Final Office Visit on 07/20/2021 Component Date Value Ref Range Status ??? T4,Free(Direct) 10/11/2021 1.31 0.82 - 1.77 ng/dL Final ??? TSH 10/11/2021 1.670 0.450 - 4.500 uIU/mL Final Lab on 05/21/2021 Component Date Value Ref Range Status ??? Color, ur 05/21/2021 Straw Yellow Final ??? Clarity, ur 05/21/2021 Clear Clear Final ??? Specific gravity, ur 05/21/2021 1.008 1.003 - 1.030 Final ??? pH, urine 05/21/2021 6.0 Final ??? Protein, ur ql 05/21/2021 Negative Negative Final ??? Glucose, ur ql 05/21/2021 Negative Negative Final ??? Ketones, ur 05/21/2021 Negative Negative Final ??? Bilirubin, ur 05/21/2021 Negative Negative Final ??? Blood, ur 05/21/2021 Negative Negative Final ? ? Urobilinogen, ur 05/21/2021 <2.0 <2.0 mg/dL Final ??? Nitrite, ur 05/21/2021 Negative Negative Final ??? Leukocyte esterase, ur 05/21/2021 Negative Negative Final ??? UA reflex comment 05/21/2021 Reflex conditions for microscopic UA and culture not met. Final ??? TSH 05/21/2021 0.11 (A) 0.30 - 4.20 mcIUnit/mL Final ??? Free T4 05/21/2021 1.59 0.90 - 1.70 ng/dL Final Patient Active Problem List Diagnosis Code ??? History of osteoporosis Z87.39 ??? 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 Acute on chronic diastolic heart failure (CMS/HCC) (HCC) I50.33 ??? Ventricular septal defect (VSD) Q21.0 ??? AI (aortic insufficiency) I35.1 ??? History of hematuria Z87.448 ??? ASVD (arteriosclerotic vascular disease) I70.90 ??? History of adenomatous polyp of colon Z86.010 ??? 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 History of Helicobacter pylori infection Z86.19 ??? 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 Sick sinus syndrome (CMS/HCC) (HCC) I49.5 ??? Presence of cardiac pacemaker Z95.0 MYKE Sneed-BC Cosigned by Nabila King MD at 04/15/2022 10:43 PM CDT documented in this encounter Miscellaneous Notes * Assessment & Plan Note - Elizabeth Daniels NP - 04/15/2022 4:00 PM CDTAssociated Problem(s): Neuroforaminal stenosis of lumbar spine Patient returns today for follow up on low back and hip pain. Symptoms continue, but patient reports they are tolerable. She on exam has full ROM, no weakness and normal reflexes. She recently started turmeric and medicare compliance auditor last week along with stretching exercises. I did offer referral to pain management but patient declined. She will continue with current management and return as scheduled or sooner if needed. 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 Take 1 tablet (2 mg total) by mouth every 8 (eight) hours as needed for muscle spasms Therapy completed 03/02/2022 04/15/2022 levothyroxine (SYNTHROID) 50 mcg tabletIndications:Hypoth yroidism due to Alan's thyroiditis Take 1 tablet (50 mcg total) by mouth nightly Reorder 07/20/2021 04/15/2022 documented as of this encounter Care Teams Fleshing Machine Operator Relationship Specialty Start Date End Date Nabila King MD [address] [address] [place] [address] PCP - General Internal Medicine 12/16/20 Christine Kendall MD Surgeon Ophthalmology 12/13/20 Sita Magana MD [address] [facility] [address] [place] [address] Consulting Physician Internal Medicine 12/13/20 Regulo Pandey MD [address] [place] [address] [address] [place] [address] Referring Physician Cardiovascular Disease 12/16/20 Gigi Méndez MD [address] [place] [address] [address] [place] [address] Referring Physician Cardiology 02/18/21 Bc Martinez MD [address] [place] [address] Consulting Physician Cardiology 10/22/21 08/21/23 documented as of this encounter
--- OUTSIDE RECORDS SUMMARY | 2024-08-09 17:47 | XMS_ITS | Encounter Summary ---
Author Organization [facility] Address [address] [facility] [address] [place] [address] Care Team Providers Care Travel Med Surg Rn Name Role Phone Christine Kendall MD Unavailable [phone] Sita Magana MD Unavailable [phone] Nabila King MD Primary Care Provider + [phone] Regulo Pandey MD Unavailable Gigi Méndez MD Unavailable [phone] Bc Martinez MD Unavailable [phone] Encounter Details Date Type Department Care Team (Late st Contact Info) Description 03/02/2022 Telephone [facility] [address] [place] [address] Elziabeth Daniels, FOUR SLIDE MACHINE SETTER [address] [place] [address] Social History Tobacco Use Types [...] on file 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 Gender Identity Not on file Sexual Orientation Not on file 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 The xray of her low back does however, show moderate degenerative disc disease which is most likely causing her issues. She should follow with her chiropractor as discussed documented in this encounter Plan of Treatment Not on file documented as of this encounter Visit Diagnoses Not on filedocumented in this encounter Care Teams Travel Med Surg Rn Relationship Specialty Start Date End Date Nabila King MD [address] [place] [address] [address] [place] [address] PCP - General Internal Medicine 12/16/20 Christine Kendall MD Surgeon Ophthalmology 12/13/20 Sita Magana MD [address] [place] [address] Consulting Physician Internal Medicine 12/13/20 Regulo Pandey MD [address] [facility] [address] [address] [place] [address] Referring Physician Cardiovascular Disease 12/16/20 Gigi Méndez MD [address] [facility] [address] [facility] [address] [place] [address] Referring Physician Cardiology 02/18/21 Bc Martinez MD [address] [place] [address] Consulting Physician Cardiology 10/22/21 08/21/23 documented as of this encounter
--- OUTSIDE RECORDS SUMMARY | 2024-08-09 17:47 | XMS_ITS | Encounter Summary ---
Author Organization [facility] Address [address] [place] [address] Phone Care Team Providers Care Newcomer Hostess Name Role Phone FaizaChristine MD Unavailable [phone] Sita Magana MD Unavailable [phone] Nabila King MD Primary Care Provider [phone] Regulo Pandey MD Unavailable Gigi Méndez MD Unavailable [phone] Bc Martinez MD Unavailable [phone] Encounter Details Date Type Department Care Team (Late st Contact Info) Description 09/09/2022 Orders Only [facility] [address] [place] [address] Nabila King MD [address] [place] [address] Social History Tobacco Use Types Packs/Day Years [...] on file 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 Gender Identity Not on file Sexual Orientation Not on file 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 Not on file documented as of this encounter Plan of Treatment Not on file documented as of this encounter Procedures Procedure Name Priority Date/Time Associated Diagnosis Comments SCAN - LABS 09/09/2022 documented in this encounter Results * SCAN - LABS (09/09/2022) Nabila King MD Final Resu lt documented in this encounter Visit Diagnoses Not on filedocumented in this encounter Care Teams Newcomer Hostess Relationship Specialty Start Date End Date Nabila King MD [address] [facility] [address] [place] [address] PCP - General Internal Medicine 12/16/20 Christine Kendall MD Surgeon Ophthalmology 12/13/20 Sita Magana MD [address] [place] [address] [address] [place] [address] Consulting Physician Internal Medicine 12/13/20 Regulo Pandey MD [address] [place] [address] [address] [place] [address] Referring Physician Cardiovascular Disease 12/16/20 Gigi Méndez MD [address] [place] [address] [address] [place] [address] Referring Physician Cardiology 02/18/21 Bc Martinez MD [address] [place] [address] Consulting Physician Cardiology 10/22/21 08/21/23 documented as of this encounter
--- OUTSIDE RECORDS SUMMARY | 2024-08-09 17:47 | XMS_ITS | Encounter Summary ---
Author Organization [facility] Address [address] [place] [address] Care Team Providers Care Vertical Punch Operator Name Role Phone Christine Kendall MD Unavailable [phone] Sita Magana MD Unavailable [phone] Nabila King MD Primary Care Provider [phone] Regulo Pandey MD Unavailable Gigi Méndez MD Unavailable [phone] Bc Martinez MD Unavailable [phone] Encounter Details Date Type Department Care Team (Late st Contact Info) Description 03/02/2022 7:05 PM CDT Lab [address] [address] Chronic pain syndrome Social History Tobacco Use Types Packs/Day Years [...] on file 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 Gender Identity Not on file Sexual Orientation Not on file 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 Not on file documented as of this encounter Plan of Treatment Not on file documented as of this encounter Procedures Procedure Name Priority Date/Time Associated Diagnosis Comments ERYTHROCYTE SEDIMENTATION RATE Routine 03/02/2022 10:15 AM CDT Chronic pain syndrome CRP (ACUTE PHASE) Routine 03/02/2022 10: 15 AM CDT Chronic pain syndrome documented in this encounter Results * Erythrocyte sedimentation rate (03/02/2022 10:15 AM CDT) Erythrocyte sedimentation rate 4 1 - 30 mm/hr CERNER CH Blood 03/02/2022 10:1 5 AM CDT 03/02/2022 7:10 PM CDT Elizabeth Daniels LADIES' LOCKER ROOM ATTENDANT LAB BLOOD ORDERABL ES Final Result Performing Organization Address [facility] Co de Phone Number [facility] [address] [facility] [place] [address] * CRP (acute phase) (03/02/2022 10:15 AM CDT) CRP 3.1 <=10.0 mg/L CERNER Blood 03/02/2022 10:1 5 AM CDT 03/02/2022 7:10 PM CDT [facility] L[facility] Daniels LADIES' LOCKER ROOM ATTENDANT LAB BLOOD ORDERABL ES Final Result Performing Organization Address City/[facility] Co de Phone Number [facility] [address] [facility] [place] [address] documented in this encounter Visit Diagnoses Diagnosis Chronic pain syndrome documented in this encounter Care Teams Vertical Punch Operator Relationship Specialty Start Date End Date Nabila King MD [address] [facility] [address] [place] [address] PCP - General Internal Medicine 12/16/20 Christine Kendall MD Surgeon Ophthalmology 12/13/20 Sita Magana MD [address] [facility] [address] [place] [address] Consulting Physician Internal Medicine 12/13/20 Regulo Pandey MD [address] [place] [address] [address] [place] [address] Referring Physician Cardiovascular Disease 12/16/20 Gigi Méndez MD [address] [place] [address] [address] [place] [address] Referring Physician Cardiology 02/18/21 Bc Martinez MD [address] [place] [address] Consulting Physician Cardiology 10/22/21 08/21/23 documented as of this encounter
--- OUTSIDE RECORDS SUMMARY | 2024-08-09 17:47 | XMS_ITS | Encounter Summary ---
Author Organization [facility] Address [address] [place] [address] Phone Care Team Providers Care Mixer Operator Helper Hot Metal Name Role Phone Christine Kendall MD Unavailable [phone] Sita Magana MD Unavailable [phone] Nabila King MD Primary Care Provider [phone] Regulo Pandey MD Unavailable Gigi Méndez MD Unavailable [phone] Bc Martinez MD Unavailable [phone] Reason for Visit * Reason Comments Glaucoma Encounter Details Date Type Department Care Team (Late st Contact Info) Description 11/14/2022 10:00 AM CDT Office Visit [facility] Ophthalmology 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 Not on file documented as of this encounter Progress Notes * Christine Kendall MD - 11/14/2022 10:00 AM CDT Assessment/Plan Diagnoses and all orders for this visit: Low-tension glaucoma, bilateral, severe stage (Primary) Assessment & Plan: intraocular pressure (IOP) acceptable off meds status post (s/p) Trab both eyes (OU) - intermittent irritation F/U 6 months with OCT/GCL, Dyer visual field (HVF) 10-2 Age-related nuclear cataract of right eye Assessment & Plan: Likely some increasing significance Defers surgery for now documented in this encounter Miscellaneous Notes * Assessment & Plan Note - Christine Kendall MD - 11/14/2022 10:19 PM CDT Associated Problem(s): Age-related nuclear cataract of right eye Likely some increasing significance Defers surgery for now * Assessment & Plan Note - Christine Kendall MD - 11/14/2022 10:17 PM CDT Associated Problem(s): Low-tension glaucoma, bilateral, severe stage intraocular pressure (IOP) acceptable off meds status post (s/p) Trab both eyes (OU) - intermittent irritation F/U 6 months with OCT/GCL, Dyer visual field (HVF) 10-2 documented in this encounter Plan of Treatment Not on file documented as of this encounter Visit Diagnoses Diagnosis Low-tension glaucoma, bilateral, severe stage- Primary Age-related nuclear cataract of right eye documented in this encounter Eye Exam Visual Acuity (Snellen - Linear) Right eye Left eye Dist sc 20/50 20/20 Dist ph sc 20/40 -1 Tonometry (Applanation, 10:16 AM) Right eye Left eye Pressure 9 10 Pupils Dark Shape React APD Right eye 6 Round NR None Left eye 5 Round Minimal None Visual Sung Right eye Left eye Full Restrictions Partial outer superior nasal, in ferior nasal deficiencies Extraocular Movement Right eye Left eye Full Full Neuro/Psych Oriented x3: Yes Mood/Affect: Normal Dilation Both eyes: 1.0% Mydriacyl @ 10:16 AM Potential Acuity Meter Right eye Left eye SYLVIA J2 External Exam Right eye Left eye External [...] Normal Normal Periphery Normal Normal Care Teams Mixer Operator Helper Hot Metal Relationship Specialty Start Date End Date Nabila King MD [address] [place] [address] [address] [place] [address] PCP - General Internal Medicine 12/16/20 Christine Kendall MD Surgeon Ophthalmology 12/13/20 Sita Magana MD [address] [place] [address] [address] [place] [address] Consulting Physician Internal Medicine 12/13/20 Regulo Pandey MD [address] [place] [address] Referring Physician Cardiovascular Disease 12/16/20 Gigi Méndez MD [address] [facility] [address] [place] [address] Referring Physician Cardiology 02/18/21 Bc Martinez MD [address] [place] [address] Consulting Physician Cardiology 10/22/21 08/21/23 documented as of this encounter
--- OUTSIDE RECORDS SUMMARY | 2024-08-09 17:47 | XMS_ITS | Encounter Summary ---
Author Organization [facility] Address [address] [place] [address] Phone Care Team Providers Care Apigee Developer Name Role Phone Christine Kendall MD Unavailable [phone] Sita Magana MD Unavailable [phone] Nabila King MD Primary Care Provider [phone] Regulo Pandey MD Unavailable Gigi Méndez MD Unavailable [phone] Bc Martinez MD Unavailable [phone] Reason for Visit * Reason Comments Glaucoma Encounter Details Date Type Department Care Team (Late st Contact Info) Description 05/08/2023 10:00 AM CDT Office Visit [facility] Ophthalmology [address] 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 Not on file documented as of this encounter Patient Instructions * Patient Instructions* Gracy Ocampo COA - 05/08/2023 10:00 AM CDT documented in this encounter Ordered Prescriptions Prescription Sig Dispense Quantity Refills Last Filled Start Date End Date ketorolac (ACULAR LS) 0.4 % drops Administer 1 drop into both eyes daily 5 mL 11 05/08/2023 loteprednol (LOTEMAX) 0.5 % ophthalmic suspension Administer 1 drop into the right eye daily 5 mL 11 05/08/2023 3 ketorolac (ACULAR LS) 0.4 % drops Administer 1 drop into both eyes daily 5 mL 11 05/08/2023 3 documented in this encounter Progress Notes * Christine Kendall MD - 05/08/2023 10:00 AM CDT Assessment/Plan Diagnoses and all [...] improvement (NI) No objective findings of irritation. Age-related nuclear cataract of right eye Assessment & Plan: Likely some increasing significance Defers surgery for now Other orders - loteprednol (LOTEMAX) 0.5 % ophthalmic suspension; Administer 1 drop into the right eye daily - ketorolac (ACULAR LS) 0.4 % drops; Administer 1 drop into both eyes daily documented in this encounter Miscellaneous Notes * Assessment & Plan Note - Christine Kendall MD - 05/08/2023 10:11 PM CDT Associated Problem(s): Age-related nuclear cataract of right eye Likely some increasing significance Defers surgery for now * Assessment & Plan Note - Christine Kendlal MD - 05/08/2023 10:11 PM CDT Associated Problem(s): Low-tension glaucoma, bilateral, [...] improvement (NI) No objective findings of irritation. documented in this encounter Plan of Treatment Not on file documented as of this encounter Visit Diagnoses Diagnosis Low-tension glaucoma, bilateral, severe stage- Primary Age-related nuclear cataract of right eye documented in this encounter Discontinued Medications Medication Sig Discontinue Reason Start Date End Da te traZODone (DESYREL) 50 mg tabletIndications:Slee p disturbance,Adjustment disorder with anxiety Take 0.5-1 tablets (25-50 mg total) by mouth nightly Therapy completed 01/10/2023 05/08/2023 doxycycline hyclate (VIBRAMYCIN) 50 mg capsule Take 1 capsule (50 mg total) by mouth 2 (two) times a day With food Therapy completed 12/03/2022 05/08/2023 dexAMETHasone 0.5 mg/5 mL elixir RINSE WITH 5ML BY MOUTH FOUR TIMES DAILY AND SWALLOW UNTIL LESIONS RESOLVE. Therapy completed 03/30/2023 05/08/2023 ketorolac (ACULAR LS) 0.4 % drops Administer 1 drop into both eyes 3 (three) times a day Reorder 09/20/2021 05/08/2023 ketorolac (ACULAR LS) 0.4 % drops Administer 1 drop into both eyes daily Reorder 05/08/2023 05/08/2023 documented as of this encounter Historical Medications * This list may reflect changes made after this encounter. dexAMETHasone 0.5 mg/5 mL elixir RINSE WITH 5ML BY MOUTH FOUR TIMES DAILY AND SWALLOW UNTIL LESIONS RESOLVE. 03/30/2023 05/08/2023 added in this encounter Eye Exam Visual Acuity (Snellen - Linear) Right eye Left eye Dist sc 20/50 -2 20/40 Dist ph sc 20/25 -1 20/25 +2 Tonometry (Applanation, 10:29 AM) Right eye Left eye Pressure 7 10 Pupils Dark Shape React APD Right eye 5 Round Minimal None Left eye 4 Round Minimal None Visual Sung See HVF Test OU 10-2 Neuro/Psych Oriented x3: Yes Mood/Affect: Normal Dilation LDE: 11/14/2022 External Exam Right eye Left eye External [...] rhage C/D Ratio 1.0 0.95 Care Teams Apigee Developer Relationship Specialty Start Date End Date Nabila King MD [address] [place] [address] [facility] [address] [place] [address] PCP - General Internal Medicine 12/16/20 Christine Kendall MD Surgeon Ophthalmology 12/13/[address] [facility] [address] [place] [address] Consulting Physician Internal Medicine 12/13/20 Regulo Pandey MD [address] [place] [address] [address] [place] [address] Referring Physician Cardiovascular Disease 12/16/20 Gigi Méndez MD [address] [place] [address] [address] [place] [address] Referring Physician Cardiology 02/18/21 Bc Martinez MD [address] [place] [address] Consulting Physician Cardiology 10/22/21 08/21/23 documented as of this encounter
--- OUTSIDE RECORDS SUMMARY | 2024-08-09 17:48 | XMS_ITS | Encounter Summary ---
Author Organization [facility] Address [address] [place] [address] Phone Care Team Providers Care Ethnographer Name Role Phone Christine Kendall MD Unavailable [phone] Sita Magana MD Unavailable [phone] Nabila King MD Primary Care Provider Regulo Pandey MD Unavailable Gigi Méndez MD Unavailable [phone] Bc Martinez MD Unavailable [phone] Encounter Details Date Type Department Care Team (Late st Contact Info) Description 02/02/2022 Orders Only [facility] [address] [place] [address] Scanning, Provider Social History Tobacco [...] on file 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 Gender Identity Not on file Sexual Orientation Not on file 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 [address] [place] [address] PCP - General Internal Medicine 12/16/20 Christine Kendall MD Surgeon Ophthalmology 12/13/20 Sita Magana MD [address] [facility] [address] [place] [address] Consulting Physician Internal Medicine 12/13/20 Regulo Pandey MD [address] [facility] [address] [place] [address] Referring Physician Cardiovascular Disease 12/16/20 Gigi Méndez MD [address] [facility] [address] [place] [address] Referring Physician Cardiology 02/18/21 Bc Martinez MD [address] [place] [address] Consulting Physician Cardiology 10/22/21 08/21/23 documented as of this encounter
--- OUTSIDE RECORDS SUMMARY | 2024-08-09 17:48 | XMS_ITS | Encounter Summary ---
Author Organization [facility] Address [address] [place] [address] Phone Care Team Providers Care Crimping Machine Operator Name Role Phone FaizaChristine MD Unavailable [phone] Sita Magana MD Unavailable [phone] Nabila King MD Primary Care Provider [phone]- [phone] Regulo Pandey MD Unavailable Gigi Méndez MD Unavailable [phone] Bc Martinez MD Unavailable [phone] Encounter Details Date Type Department Care Team (Late st Contact Info) Description 11/13/2021 Orders Only [facility] [address] [place] [address] Nabila King MD [address] [place] [address] Social History Tobacco Use Types Packs/Day Years [...] on file 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 Gender Identity Not on file Sexual Orientation Not on file 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 Not on file documented as of this encounter Plan of Treatment Not on file documented as of this encounter Procedures Procedure Name Priority Date/Time Associated Diagnosis Comments CARDIOLOGY DOCUMENT SCAN 11/13/2021 documented in this encounter Results * SCAN - CARDIOLOGY (11/13/2021) Anatomical Region Laterality Modality Other Nabila King MD CV CARDIAC SERVICES PROCED URES Edited Result - Final documented in this encounter Visit Diagnoses Not on filedocumented in this encounter Care Teams Crimping Machine Operator Relationship Specialty Start Date End Date Nabila King MD [address] [facility] [address] [place] [address] PCP - General Internal Medicine 12/16/20 Christine Kendall MD Surgeon Ophthalmology 12/13/20 Sita Magana MD [address] [facility] [address] [place] [address] Consulting Physician Internal Medicine 12/13/20 Regulo Pandey MD [address] [place] [address] Referring Physician Cardiovascular Disease 12/16/20 Gigi Méndez MD [address] [facility] [address] [place] [address] Referring Physician Cardiology 02/18/21 Bc Martinez MD [address] [place] [address] Consulting Physician Cardiology 10/22/21 08/21/23 documented as of this encounter
--- OUTSIDE RECORDS SUMMARY | 2024-08-09 17:48 | XMS_ITS | Encounter Summary ---
Author Organization [facility] Address [address] [place] [address] Phone Care Team Providers Care Trackless Trolley Driver Name Role Phone FaizaChristine MD Unavailable [phone] Sita Magana MD Unavailable [phone] Nabila King MD Primary Care Provider [phone] Regulo Pandey MD Unavailable Gigi Méndez MD Unavailable [phone] Bc Martinez MD Unavailable [phone] Encounter Details Date Type Department Care Team (Late st Contact Info) Description 10/26/2021 Orders Only [facility] [address] [place] [address] Nabila King MD [address] [place] [address] Social History Tobacco Use Types Packs/Day Years [...] on file 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 Gender Identity Not on file Sexual Orientation Not on file 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 Not on file documented as of this encounter Plan of Treatment Not on file documented as of this encounter Procedures Procedure Name Priority Date/Time Associated Diagnosis Comments SCAN - RADIOLOGY/IMAGING 10/26/2021 documented in this encounter Results * SCAN - RADIOLOGY/IMAGING (10/26/2021) Anatomical Region Laterality Modality Other Nabila King MD Final Resu lt documented in this encounter Visit Diagnoses Not on filedocumented in this encounter Care Teams Trackless Trolley Driver Relationship Specialty Start Date End Date Nabila King MD [address] [facility] [address] [place] [address] PCP - General Internal Medicine 12/16/20 Christine Kendall MD Surgeon Ophthalmology 12/13/20 Sita Magana MD [address] [facility] [address] [place] [address] Consulting Physician Internal Medicine 12/13/20 Regulo Pandey MD [address] [facility] [address] [place] [address] Referring Physician Cardiovascular Disease 12/16/20 Gigi Méndez MD [address] [facility] [address] [place] [address] Referring Physician Cardiology 02/18/21 Bc Martinez MD [address] [place] [address] Consulting Physician Cardiology 10/22/21 08/21/23 documented as of this encounter
--- OUTSIDE RECORDS SUMMARY | 2024-08-09 17:48 | XMS_ITS | Encounter Summary ---
Author Organization [facility] Address [address] [place] [address] Phone Care Team Providers Care Glass Technician/Installer Name Role Phone FaizaChristine MD Unavailable [phone] Sita Magana MD Unavailable [phone] Nabila King MD Primary Care Provider [phone] Regulo Pandey MD Unavailable Gigi Méndez MD Unavailable [phone] Bc Martinez MD Unavailable [phone] Encounter Details Date Type Department Care Team (Late st Contact Info) Description 10/25/2021 Orders Only [facility] [address] [place] [address] Nabila King MD [address] [place] [address] Social History Tobacco Use Types Packs/Day Years [...] on file 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 Gender Identity Not on file Sexual Orientation Not on file 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 Not on file documented as of this encounter Plan of Treatment Not on file documented as of this encounter Procedures Procedure Name Priority Date/Time Associated Diagnosis Comments SCAN - RADIOLOGY/IMAGING 10/25/2021 documented in this encounter Results * SCAN - RADIOLOGY/IMAGING (10/25/2021) Anatomical Region Laterality Modality Other Nabila King MD Final Resu lt documented in this encounter Visit Diagnoses Not on filedocumented in this encounter Care Teams Glass Technician/Installer Relationship Specialty Start Date End Date Nabila King MD [address] [facility] [address] [place] [address] PCP - General Internal Medicine 12/16/20 Christine Kendall MD Surgeon Ophthalmology 12/13/20 Sita Magana MD [address] [facility] [place] [address] Consulting Physician Internal Medicine 12/13/20 Regulo Pandey MD [address] [facility] [place] [address] Referring Physician Cardiovascular Disease 12/16/20 Gigi Méndez MD [address] [facility] [place] [address] Referring Physician Cardiology 02/18/21 Bc Martinez MD [address] [place] [address] Consulting Physician Cardiology 10/22/21 08/21/23 documented as of this encounter
--- OUTSIDE RECORDS SUMMARY | 2024-08-09 17:48 | XMS_ITS | Encounter Summary ---
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 Name Role Phone Christine Kendall MD Unavailable [phone] Sita Magana MD Unavailable [phone] Nabila King MD Primary Care Provider + [phone] Regulo Pandey MD Unavailable Gigi Méndez MD Unavailable [phone] Bc Martinez MD Unavailable [phone] Reason for Visit * Reason Comments Follow-up 1 mo Encounter Details Date Type Department Care Team (Late st Contact Info) Description 11/24/2021 1:40 PM CDT Office Visit [facility] [address] [place] [address] Nabila King MD [address] [place] [address] Paroxysmal A-fib (CMS/HCC) (HCC) (Primary Dx); Pacemaker; Palpitation; Shortness of breath; Non-restorative sleep; Nausea; Throbbing headache; Gastroesophageal reflux disease, unspecified whether esophagitis present Social History Tobacco Use Types Packs/Day Years [...] on file 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 Gender Identity Not on file Sexual Orientation Not on file 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 Not on file documented as of this encounter Last Filed Vital Signs Vital Sign Reading Time Taken Comments Blood Pressure 120/80 11/24/2021 1:51 PM CDT Pulse 80 11/24/2021 1:51 PM CDT Temperature 36.3 ??C (97.3 ??F) 11/24/2021 1:51 PM CD T Respiratory Rate 16 11/24/2021 1:51 PM CDT Oxygen Saturation 98% 11/24/2021 1:51 PM CDT Inhaled Oxygen Concentration - - Weight 55.8 kg (123 lb) 11/24/2021 1:51 PM CDT Height - - Body Mass Index 21.11 05/21/2021 9:17 AM CDT documented in this encounter Patient Instructions * Patient Instructions* Nabila King MD - 11/24/2021 1:40 PM CDT ORDERS FOR AMS STAFF TO ARRANGE 1. I contacted Dr. Martinez already today, I would not be sent. He has recommended the diltiazem magnesium combination prescribed today 2. Make a copy of echocardiogram, carotid Doppler from October 2019 Dr. Martinez office to give to her and the CT head scan from 11/02 ORDERS FOR Lisa Conn TO ARRANGE 1. Immunization recommendations: Everything is up-to-date 2. Medication changes Diltiazem 60 mg 3 times daily Magnesium oxide 400 mg 2 times daily Follow the acid reflux regimen outlined below I will contact you with the report from the pacemaker download Start the sleep interventions especially the cognitive behavioral therapy outlined below to help with restorative sleep Patient Care Team: Nabila King MD as PCP - General (Internal Medicine) Christine Kendall MD as Surgeon (Ophthalmology) Sita Magana MD as Consulting Physician (Internal Medicine) Regulo Pandey MD as Referring Physician (Cardiovascular Disease) Gigi Méndez MD as Referring Physician (Cardiology) Bc Martinez MD as Consulting Physician (Cardiology) Return in about 2 weeks (around 12/08/2021) for Recheck, . No orders of the defined types were placed in this encounter. A brief review of all your problems, medications, and orders from today ICD-9-CM ICD-10-CM 1. Paroxysmal A-fib (CMS/HCC) (HCC) 427.31 I48.0 dilTIAZem (CARDIZEM) 60 mg tablet magnesium oxide (MAG-OX) 400 mg (241.3 mg elemental magnesium) tablet 2. Pacemaker V45.01 Z95.0 3. Palpitation 785.1 R00.2 dilTIAZem (CARDIZEM) 60 mg tablet magnesium oxide (MAG-OX) 400 mg (241.3 mg elemental magnesium) tablet 4. Shortness of breath 786.05 R06.02 5. 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 Nausea 787.02 R11.0 7. Throbbing headache 784.0 R51.9 8. Gastroesophageal reflux disease, unspecified whether esophagitis present 530.[address] (PROTONIX) 20 mg EC tablet For your records I have provided this immunization report Immunization History Administered Date(s) Administered ??? DT 03/21/2015 ??? Influenza, Quadrivalent, High Dose, Preservative Free, Intrr 06/17/2019, 05/01/2020, 05/25/2021 ??? Influenza, Trivalent, High Dose, Split, Preservative Free, Intramuscular 05/15/2014, 05/08/2016, 05/07/2017, 05/03/2018, 06/17/2019 ??? Influenza, Trivalent, Intramuscular 06/20/2012 ??? Influenza, Trivalent, Preservative Free, Intramuscular 05/22/2015 ??? Influenza, Unspecified 06/20/2012, 05/15/2014, 05/22/2015, 05/08/2016, 05/07/2017, 05/03/2018, 06/17/2019 ??? Pfizer SARS-CoV-2 Vaccination (12+ yrs) PURPLE 10/13/2020, 11/03/2020, 07/08/2021 ??? Pneumococcal Conjugate PCV 13 05/08/2016 ??? Pneumococcal Conjugate, Unspecified 06/18/2008 ??? ZOSTER Recombinant 02/02/2018, 05/03/2018 Primary Pharmacy/DME suppliers: [facility] - [place], [place] - [address] [facility] [address] [facility] [address] PLEASE BRING IN ALL PILL BOTTLES TO EVERY OFFICE VISIT, THIS IS ESSENTIAL FOR ACCURATE REFILLS AND MAINTAINING AN ACCURATE MEDICATION LIST. PLEASE SIGN UP FOR [employer] so that you may have access to your labs and chart documentation IF YOU HAVE TROUBLE WITH THIS PROCESS CALL [phone] CHANGES FOR YOUR SLEEPING TROUBLE 1. Wake up at the same time every day = 8:00 a.m. -get exposure to natural bright sunlight - if this light exposure is not available in your home you can use 10,000 lumens light box available for about $100. Light exposure will reset the sleep clock in the brain. 2. Bedtime should be 8 hours before awakening, at 12 midnight 3. Rules around sleep: -avoid all caffeine [...] the activities that are on your list. [place] this work for the next day. 6. [...] require leaving thehome to attend psychologist visits. GERD INTERVENTIONS Short-term GERD care: OTC PPI (available PPI by brand name = Prilosec, Protonix, Aciphex, Prevacid, Dexilant, Nexium and Zegerid) daily 0.5 hour before evening meal for 10 days, Food activate the pill, eat 0.5 hour after taking the pill. Return for office follow-up if not better. Long-term NONMEDICATION prevention of GERD Following this dietary and physical intervention Program strictly for 2 months then advancing diet by one item monthly when you are well may prevent need for medications. physical and dietary guidelines to help reduce symptoms from acid reflux disease are as follows: Elevate the head of the bed 3-1/2 inches using a 2 x 4 under the headboard. Finish all evening eating 3 hours before bedtime. AVOID ALL ALCOHOL, caffeine, tobacco, and chocolate. AVOID these high acid foods: Coffee (regular or decaf), cola and a soda (regular or decaf), all Tea--(regular, decaf, black, green, or white tea) , citrus fruits or citrus juices, tomatoes raw or cooked or in can tomato sauces, raw onions, green peppers. Avoid acid foods: include (ketchup, salad dressings, mustards ...etc), fatty foods (avoid all friedfoods and fatty meats) YOU MAY HAVE Ranch salad dressing on salads and sandwiches, red peppers and cooked onions are allowed. documented in this encounter Ordered Prescriptions Prescription Sig Dispense Quantity Refills Last Filled Start Date End Date pantoprazole DR (PROTONIX) 20 mg EC tabletIndications: Gastroesophageal reflux disease, unspecified whether esophagitis present Take 1 tablet (20 mg total) by mouth daily 30 tablet 11/24/2021 12/14/2021 magnesium oxide (MAG-OX) 400 mg (241.3 mg elemental magnesium) tabletIndications: hypomagnesemia Take 1 tablet (400 mg total) by mouth 2 (two) times a day 60 tablet 11 11/24/2021 03/02/2022 dilTIAZem (CARDIZEM) 60 mg tabletIndications: Paroxysmal A-fib (CMS/[facility]) ([facility]),Palpitation Take 1 tablet (60 mg total) by mouth 3 (three) times a day 90 tablet 1 11/24/2021 07/04/2022 documented in this encounter Progress Notes * Nabila King MD - 11/24/2021 1:40 PM CDT ASSESSMENT AND PLAN Patient Instructions ORDERS FOR AMS STAFF TO ARRANGE 1. I contacted Dr. Martinez already today, I would not be sent. He has recommended the diltiazem magnesium combination prescribed today 2. Make a copy of echocardiogram, carotid Doppler from October 2019 Dr. Martinez office to give to her and the CT head scan from 11/02 ORDERS FOR Lisa Conn TO ARRANGE 1. Immunization recommendations: Everything is up-to-date 2. Medication changes Diltiazem 60 mg 3 times daily Magnesium oxide 400 mg 2 times daily Follow the acid reflux regimen outlined below I will contact you with the report from the pacemaker download Start the sleep interventions especially the cognitive behavioral therapy outlined below to help with restorative sleep Patient Care Team: Nabila King MD as PCP - General (Internal Medicine) Christine Kendall MD as Surgeon (Ophthalmology) Sita Magana MD as Consulting Physician (Internal Medicine) Regulo Pandey MD as Referring Physician (Cardiovascular Disease) Gigi Méndez MD as Referring Physician (Cardiology) Bc Martinez MD as Consulting Physician (Cardiology) Return in about 2 weeks (around 12/08/2021) for Recheck, . No orders of the defined types were placed in this encounter. A brief review of all your problems, medications, and orders from today ICD-9-CM ICD-10-CM 1. Paroxysmal A-fib (CMS/HCC) (HCC) 427.31 I48.0 dilTIAZem (CARDIZEM) 60 mg tablet magnesium oxide (MAG-OX) 400 mg (241.3 mg elemental magnesium) tablet 2. Pacemaker V45.01 Z95.0 3. Palpitation 785.1 R00.2 dilTIAZem (CARDIZEM) 60 mg tablet magnesium oxide (MAG-OX) 400 mg (241.3 mg elemental magnesium) tablet 4. Shortness of breath 786.05 R06.02 5. 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 Nausea 787.02 R11.0 7. Throbbing headache 784.0 R51.9 8. Gastroesophageal reflux disease, unspecified whether esophagitis present 530.[address] (PROTONIX) 20 mg EC tablet For your records I have provided this immunization report Immunization History Administered Date(s) Administered ??? DT 03/21/2015 ??? Influenza, Quadrivalent, High Dose, Preservative Free, Intrr 06/17/2019, 05/01/2020, 05/25/2021 ??? Influenza, Trivalent, High Dose, Split, Preservative Free, Intramuscular 05/15/2014, 05/08/2016, 05/07/2017, 05/03/2018, 06/17/2019 ??? Influenza, Trivalent, Intramuscular 06/20/2012 ??? Influenza, Trivalent, Preservative Free, Intramuscular 05/22/2015 ??? Influenza, Unspecified 06/20/2012, 05/15/2014, 05/22/2015, 05/08/2016, 05/07/2017, 05/03/2018, 06/17/2019 ??? Pfizer SARS-CoV-2 Vaccination (12+ yrs) PURPLE 10/13/2020, 11/03/2020, 07/08/2021 ??? Pneumococcal Conjugate PCV 13 05/08/2016 ??? Pneumococcal Conjugate, Unspecified 06/18/2008 ??? ZOSTER Recombinant 02/02/2018, 05/03/2018 Primary Pharmacy/DME suppliers: [facility] - [place], [place] - [address] [facility] [address] [facility] [address] PLEASE BRING IN ALL PILL BOTTLES TO EVERY OFFICE VISIT, THIS IS ESSENTIAL FOR ACCURATE REFILLS AND MAINTAINING AN ACCURATE MEDICATION LIST. PLEASE SIGN UP FOR MyCHART so that you may have access to your labs and chart documentation IF YOU HAVE TROUBLE WITH THIS PROCESS CALL [phone] CHANGES FOR YOUR SLEEPING TROUBLE 1. Wake up at the same time every day = 8:00 a.m. -get exposure to natural bright sunlight - if this light exposure is not available in your home you can use 10,000 lumens light box available for about $100. Light exposure will reset the sleep clock in the brain. 2. Bedtime should be 8 hours before awakening, at 12 midnight 3. Rules around sleep: -avoid all caffeine [...] the activities that are on your list. [place] this work for the next day. 6. [...] require leaving thehome to attend psychologist visits. GERD INTERVENTIONS Short-term GERD care: OTC PPI (available PPI by brand name = Prilosec, Protonix, Aciphex, Prevacid, Dexilant, Nexium and Zegerid) daily 0.5 hour before evening meal for 10 days, Food activate the pill, eat 0.5 hour after taking the pill. Return for office follow-up if not better. Long-term NONMEDICATION prevention of GERD Following this dietary and physical intervention Program strictly for 2 months then advancing diet by one item monthly when you are well may prevent need for medications. physical and dietary guidelines to help reduce symptoms from acid reflux disease are as follows: Elevate the head of the bed 3-1/2 inches using a 2 x 4 under the headboard. Finish all evening eating 3 hours before bedtime. AVOID ALL ALCOHOL, caffeine, tobacco, and chocolate. AVOID these high acid foods: Coffee (regular or decaf), cola and a soda (regular or decaf), all Tea--(regular, decaf, black, green, or white tea) , citrus fruits or citrus juices, tomatoes raw or cooked or in can tomato sauces, raw onions, green peppers. Avoid acid foods: include (ketchup, salad dressings, mustards ...etc), fatty foods (avoid all friedfoods and fatty meats) YOU MAY HAVE Ranch salad dressing on salads and sandwiches, red peppers and cooked onions are allowed. CHIEF COMPLAINT Follow-up (1 mo) HISTORY OF PRESENT ILLNESS Lisa Conn returns for follow-up NYHA 3 cardiac disability after AV sequential pacemaker. Treatment of this problem also required a short review of care since our last visit, discussion of his chronic medical problems, and brown bag medication review with all medications brought to the office. Issues also discussed today included all new lab orders for the next follow-up visit, results of current lab work, and a review of active and discontinued medication prescriptions. ORDERS FROM LAST VISIT WITH ME 10/22/21 1. No labs before one-month follow-up to review her various cardiac symptoms after pacemaker ? ORDERS FOR Lisa Conn TO ARRANGE ??1. Immunization recommendations: Tdap at the pharmacy ?? 2. Medication change Keep Eliquis suspension recommendations from Dr. Martinez as you prepare for the upcoming pacemaker ?? DETAILS REGARDING THIS VISIT: Lisa reports feeling poorly, no improvement in all despite having her AV sequential pacemaker 1. Paroxysmal A-fib (CMS/HCC) (HCC) 2. Pacemaker She is very symptomatic with recurrent palpitations shortness of breath and all symptoms listed below. Her case was reviewed Dr. Martinez on the telephone while she was in the office here today. He will review the download from her pacemaker and contact me later today and I will contact her with the information. In the meantime he wants her to start on rate reducing medications of Cardizem and Mag-Ox refilled today. Nature the medications and side effects reviewed with her and I will see her back in 2 weeks dilTIAZem (CARDIZEM) 60 mg tablet; Take 1 tablet (60 mg total) by mouth 3 (three) times a day Dispense: 90 tablet; Refill: 1 magnesium oxide (MAG-OX) 400 mg (241.3 mg elemental magnesium) tablet; Take 1 tablet (400 mg total)by mouth 2 (two) times a day Dispense: 60 tablet; Refill: 11 3. Palpitation 4. Shortness of breath The symptoms are likely related to the atrial arrhythmia, she has had both paroxysmal AFib and SVT and will be determining source from download off of the pacemaker 5. Non-restorative sleep 7. Throbbing headache Problems will be addressed with sleep information outlined on the AVS starting with home cognitive behavioral therapy online 6. Nausea 8. Gastroesophageal reflux disease, unspecified whether esophagitis present Symptoms very significant for severe acid reflux during the night at least 4 days weekly. Dietary changes initiated and she is given Protonix as the PPI she will try if necessary She does have a long history of migraine but does not feel recurrent headaches are migraine in nature. Will consider for active migraine treatment if not improved after getting the arrhythmia under control SOCIAL HISTORY Social History Tobacco Use ??? Smoking status: Never Smoker ??? Smokeless tobacco: Never Used Substance Use Topics ??? Alcohol use: No REVIEW OF SYSTEMS Review of Systems Constitutional: Positive for activity change, appetite change and fatigue. Negative for fever and unexpected weight change. HENT: Negative for congestion, dental problem, hearing loss, postnasal drip, sinus pressure, sore throat and trouble swallowing. Eyes: Negative for pain, discharge, itching and visual disturbance. Respiratory: Positive for shortness of breath. Negative for cough, chest tightness and wheezing. Cardiovascular: Positive for palpitations. Negative for chest pain. Gastrointestinal: Negative for abdominal distention, abdominal pain, [...] color change and rash. Neurological: Positive for headaches. Negative for dizziness and weakness. Hematological: Negative for adenopathy. Does not bruise/bleed easily. Psychiatric/Behavioral: Positive for sleep disturbance. Negative for behavioral problems and dysphoric mood. The patient is not nervous/anxious. MEDICATIONS CHANGED / CLEANED UP THIS VISIT Medications Discontinued During This Encounter Medication Reason ??? apixaban (ELIQUIS) 2.5 mg tablet ??? melatonin 5 mg capsule ??? cholecalciferol (VITAMIN D-3) 5,000 unit capsule ??? triamcinolone (KENALOG) 0.1 % ointment MEDICATION LIST AT CONCLUSION OF THIS VISIT Current Outpatient Medications Ordered in [facility] Medication Sig Dispense Refill ??? aspirin 81 mg enteric coated tablet Take 81 mg by mouth daily ??? ketorolac (ACULAR LS) 0.4 % drops Administer 1 drop into both eyes 3 (three) times a day 5 mL 11 ??? levothyroxine (SYNTHROID) 50 mcg tablet Take 1 tablet (50 mcg total) by mouth nightly 100 tablet 1 ??? magnesium oxide,aspartate,citr 400 mg magnesium capsule Take by mouth as needed ??? multivitamin capsule Take 1 capsule by mouth daily ??? cephalexin (KEFLEX) 250 mg capsule ??? dilTIAZem (CARDIZEM) 60 mg tablet Take 1 tablet (60 mg total) by mouth 3 (three) times a day 90tablet 1 ??? magnesium oxide (MAG-OX) 400 mg (241.3 mg elemental magnesium) tablet Take 1 tablet (400 mg total) by mouth 2 (two) times a day 60 tablet 11 ??? pantoprazole DR (PROTONIX) 20 mg EC tablet Take 1 tablet (20 mg total) by mouth daily 30 tablet0 No current [facility]-ordered facility-administered medications on file. ALLERGIES is allergic to clarithromycin, metronidazole, other, sulfa (sulfonamide antibiotics), and chloramphenicol. PHYSICAL EXAM body mass index is 21.11 kg/m??. Vitals: 11/24/21 1351 BP: 120/80 Pulse: 80 Resp: 16 Temp: 36.3 ??C (97.3 ??F) SpO2: 98% Weight: 55.8 kg (123 lb) Physical Exam Vitals and nursing note reviewed. Constitutional: General: She is not in acute distress. Appearance: Normal appearance. She is well-developed and normal weight. She is ill-appearing (Chronically fatigued in appearance). HENT: Head: Normocephalic and atraumatic. Right Ear: [...] No murmur heard. No gallop. Comments: Pacemaker site is healing well and her heart is regular, standing blood pressure is 130/88 much improved from her initial sitting blood pressure with no orthostatic symptoms or increase in pulse Pulmonary: Effort: Pulmonary effort is normal. Breath sounds: Normal breath sounds. No wheezing, rhonchi or rales. Abdominal: General: Bowel sounds are normal. There is no distension. Palpations: Abdomen is soft. There is no mass. Tenderness: There is no abdominal tenderness. Hernia: No hernia is present. Comments: Abdomen is completely benign Musculoskeletal: General: No tenderness or deformity. Normal [...] Coordination: Coordination normal. Gait: Gait normal. Psychiatric: Mood and Affect: Mood normal. Behavior: Behavior normal. Thought Content: Thought content normal. Judgment: Judgment normal. Follow-up examination was completed today and specifics of the testing and counseling are recorded on the AVS. Lisa Rodriguez Fabien's personal health goals were negotiated and agreed [...] WITH Lisa Conn TODAY Office Visit on 07/20/2021 Component Date Value [...] 05/21/2021 1.59 0.90 - 1.70 ng/dL Final Lab on 03/22/2021 Component Date Value Ref Range Status ??? H. pylori Ag, stool 03/22/2021 Negative Negative Final Lab on 03/19/2021 Component Date Value Ref Range Status ??? Free T4 03/19/2021 1.31 0.90 - 1.70 ng/dL Final ??? Thyroid Stimulating Hormone 03/19/2021 1.46 0.30 - 4.20 mcIUnit/mL Final ??? Vitamin D, 25-hydroxy 03/19/2021 59 30 - 80 ng/mL Final ??? PTH 03/19/2021 52 15 - 65 pg/mL Final ??? WBC 03/19/2021 5.6 3.8 - 9.9 K/cumm Final ??? Hgb 03/19/2021 15.3 11.9 - 15.5 g/dL Final ??? Hct 03/19/2021 48.0 (A) 35.6 - 45.5 % Final ??? Plt 03/19/2021 241 150 - 400 K/cumm Final ??? MPV 03/19/2021 11.2 9.1 - 12.3 fL Final ??? RBC 03/19/2021 4.87 3.90 - 5.20 M/cumm Final ??? MCV 03/19/2021 98.6 (A) 81.3 - 96.4 fL Final ??? MCH 03/19/2021 31.4 27.1 - 33.3 pg Final ??? MCHC 03/19/2021 31.9 (A) 32.3 - 35.7 g/dL Final ??? RDW CV 03/19/2021 14.2 11.1 - 14.9 % Final ??? RDW SD 03/19/2021 51.9 (A) 35.7 - 48.1 fL Final ??? NRBC abs 03/19/2021 0.00 0.00 - 0.01 K/cumm Final ??? Iron 03/19/2021 114 35 - 145 mcg/dl Final ??? TIBC 03/19/2021 307 250 - 400 mcg/dL Final ??? Transferrin saturation 03/19/2021 37 20 - 50 % Final ??? Vitamin B12 03/19/2021 946 230 - 1,250 pg/mL Final ? ? MMA 03/19/2021 0.12 <=0.40 nmol/mL Final ??? Sodium 03/19/2021 139 135 - 145 mmol/L Final ??? Potassium, pl 03/19/2021 4.4 3.3 - 4.9 mmol/L Final ??? Chloride 03/19/2021 101 97 - 110 mmol/L Final ??? CO2 03/19/2021 27 22 - 32 mmol/L Final ??? Anion gap 03/19/2021 11 2 - 15 mmol/L Final ??? BUN 03/19/2021 11 8 - 25 mg/dL Final ??? Creatinine 03/19/2021 0.67 0.60 - 1.10 mg/dL Final ??? Glucose 03/19/2021 91 70 - 199 mg/dL Final ??? Calcium 03/19/2021 9.9 8.5 - 10.3 mg/dL Final ??? Bilirubin, total 03/19/2021 0.7 0.1 - 1.2 mg/dL Final ??? Protein, pl 03/19/2021 7.4 6.5 - 8.5 g/dL Final ??? Albumin 03/19/2021 4.8 3.5 - 5.0 g/dL Final ??? Alk phos 03/19/2021 61 40 - 130 Units/L Final ??? ALT 03/19/2021 23 7 - 45 Units/L Final ??? AST 03/19/2021 27 10 - 45 Units/L Final ??? Ferritin 03/19/2021 189 (A) 15 - 150 ng/mL Final ??? Neutrophil abs 03/19/2021 2.9 1.7 - 6.5 K/cumm Final ??? Imm gran abs 03/19/2021 0.0 0.0 - 0.1 K/cumm Final ??? Lymphocyte abs 03/19/2021 2.3 0.8 - 3.3 K/cumm Final ??? Monocyte abs 03/19/2021 0.4 0.2 - 0.8 K/cumm Final ??? Eosinophil abs 03/19/2021 0.0 0.0 - 0.5 K/cumm Final ??? Basophil abs 03/19/2021 0.0 0.0 - 0.1 K/cumm Final ??? Neutrophil pct 03/19/2021 51.9 % Final ??? Imm gran pct 03/19/2021 0.0 % Final ??? Lymphocyte pct 03/19/2021 40.3 % Final ??? Monocyte pct 03/19/2021 6.6 % Final ??? Eosinophil pct 03/19/2021 0.7 % Final ??? Basophil pct 03/19/2021 0.5 % Final ??? eGFR 03/19/2021 81 mL/min/1.73 m2 Final Office Visit on 03/19/2021 Component Date Value Ref Range Status ??? T4,Free(Direct) 06/18/2021 1.70 0.82 - 1.77 ng/dL Final ??? TSH 06/18/2021 0.227 (A) 0.450 - 4.500 uIU/mL Final Lab on 02/18/2021 Component Date Value Ref Range Status ??? Color, ur 02/18/2021 Straw Yellow Final ??? Clarity, ur 02/18/2021 Clear Clear Final ??? Specific gravity, ur 02/18/2021 1.004 (A) 1.010 - 1.025 Final ??? pH, urine 02/18/2021 6.0 Final ??? Protein, ur ql 02/18/2021 Negative Negative Final ??? Glucose, ur ql 02/18/2021 Negative Negative Final ??? Ketones, ur 02/18/2021 Negative Negative Final ??? Bilirubin, ur 02/18/2021 Negative Negative Final ??? Blood, ur 02/18/2021 2+ (A) Negative Final ? ? Urobilinogen, ur 02/18/2021 <2.0 <2.0 mg/dL Final ??? Nitrite, ur 02/18/2021 Negative Negative Final ??? Leukocyte esterase, ur 02/18/2021 3+ (A) Negative Final ??? UA reflex comment 02/18/2021 Reflex to microscopic UA will be performed. Final ??? WBC, ur 02/18/2021 21-50 (A) 0 - 5 /HPF Final ??? RBC, ur 02/18/2021 3-5 (A) 0 - 2 /HPF Final ??? Epithelial cells, squamous, ur 02/18/2021 1-5 0 - 5 /HPF Final ??? Culture Reflex Comment 02/18/2021 Reflex to urine culture will be performed. Final ??? Report 02/18/2021 Final Value:Final Report: Less than 100,000 colonies/mL (clinically insignificant growth based on current clinical standards) ??? Organism 02/18/2021 (CLINICALLY INSIGNIFICANT GROWTH Final Lab on 12/16/2020 Component Date Value Ref Range Status ??? hsCRP 12/16/2020 1.64 mg/L Final ??? Thyroid Stimulating Hormone 12/16/2020 5.94 (A) 0.30 - 4.20 mcIUnit/mL Final ??? Free T4 12/16/2020 0.87 (A) 0.90 - 1.70 ng/dL Final ??? Sodium 12/16/2020 139 135 - 145 mmol/L Final ??? Potassium, pl 12/16/2020 4.5 3.3 - 4.9 mmol/L Final ??? Chloride 12/16/2020 100 97 - 110 mmol/L Final ??? CO2 12/16/2020 28 22 - 32 mmol/L Final ??? Anion gap 12/16/2020 11 2 - 15 mmol/L Final ??? BUN 12/16/2020 17 8 - 25 mg/dL Final ??? Creatinine 12/16/2020 0.73 0.60 - 1.10 mg/dL Final ??? Glucose 12/16/2020 86 70 - 199 mg/dL Final ??? Calcium 12/16/2020 10.2 8.5 - 10.3 mg/dL Final ??? Bilirubin, total 12/16/2020 0.4 0.1 - 1.2 mg/dL Final ??? Protein, pl 12/16/2020 7.4 6.5 - 8.5 g/dL Final ??? Albumin 12/16/2020 4.6 3.5 - 5.0 g/dL Final ??? Alk phos 12/16/2020 71 40 - 130 Units/L Final ??? ALT 12/16/2020 24 7 - 45 Units/L Final ??? AST 12/16/2020 27 10 - 45 Units/L Final ? ? LDL Cholesterol, Direct 12/16/2020 122 <=129 mg/dL Final ??? eGFR 12/16/2020 76 mL/min/1.73 m2 Final Imaging Exam on 12/14/2020 Component Date Value Ref Range Status ??? Mean Deviation OS 12/14/2020 -13.49 db Final ??? Mean Deviation OD 12/14/2020 -14.41 db Final ??? Pattern Deviation OS 12/14/2020 13.86 db Final ??? Pattern Deviation OD 12/14/2020 11.66 db Final Patient Active Problem List Diagnosis Code ??? History of osteoporosis Z87.39 ??? 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 Nuclear senile cataract, right H25.11 ??? Pseudophakia Z96.1 ??? 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 Acute on chronic diastolic heart failure (CMS/HCC) (HCC) I50.33 ??? Ventricular septal defect (VSD) Q21.0 ??? 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 Palpitation R00.2 ??? History of hematuria Z87.448 ??? ASVD (arteriosclerotic vascular disease) I70.90 ??? History of adenomatous polyp of colon Z86.010 ??? 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 Urinary frequency R35.0 ??? Other atopic dermatitis L20.89 ??? Hospital discharge follow-up Z09 ??? SVT (supraventricular tachycardia) (CMS/HCC) (HCC) I47.1 ??? Paroxysmal A-fib (CMS/HCC) (HCC) I48.0 ??? History of Helicobacter pylori infection Z86.19 ??? 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 Adjustment disorder with anxiety F43.22 ??? 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 Dizziness R42 ??? Alan's thyroiditis E06.3 ??? Sick sinus syndrome (CMS/HCC) ([facility]) I49.5 ??? Presence of cardiac pacemaker Z95.0 Nabila King M.D. documented in this encounter Plan of Treatment Not on file documented as of this encounter Visit Diagnoses Diagnosis Paroxysmal A-fib (CMS/HCC) ([facility])- Primary Pacemaker Cardiac pacemaker in situ Palpitation Palpitations Shortness of breath Non-restorative sleep Nausea Nausea alone Throbbing headache Headache Gastroesophageal reflux disease, unspecified whether esophagitis present documented in this encounter Discontinued Medications Medication Sig Discontinue Reason Start Date End Da te apixaban (ELIQUIS) 2.5 mg tablet Take 2.5 mg by mouth 2 (two) times a day 03/16/2021 11/24/2021 melatonin 5 mg capsule take 1 tablet every night before bed 06/15/2012 11/24/2021 cholecalciferol (VITAMIN D-3) 5,000 unit capsule Take 5,000 Units by mouth daily 11/24/2021 triamcinolone (KENALOG) 0.1 % ointment Apply topically 2 (two) times a day as needed for irritation or rash for up to 14 days 10/27/2021 11/24/2021 documented as of this encounter Historical Medications * This list may reflect changes made after this encounter. cephalexin (KEFLEX) 250 mg capsule 10/25/2021 03/02/2022 aspirin 81 mg enteric coated tablet Take 81 mg by mouth daily 03/02/2022 added in this encounter Care Teams Stave Log Ripsaw Operator Relationship Specialty Start Date End Date Nabila King MD [address] [facility] [address] [address] PCP - General Internal Medicine 12/16/20 Christine Kendall MD Surgeon Ophthalmology 12/13/20 Sita Magana MD [address] [facility] [address] [place] [address] Consulting Physician Internal Medicine 12/13/20 Regulo Pandey MD [address] [facility] [address] [place] [address] Referring Physician Cardiovascular Disease 12/16/20 Gigi Méndez MD [address] [facility] [address] [place] [address] Referring Physician Cardiology 02/18/21 Bc Martinez MD [address] [place] [address] Consulting Physician Cardiology 10/22/21 08/21/23 documented as of this encounter
--- OUTSIDE RECORDS SUMMARY | 2024-08-09 17:48 | XMS_ITS | Encounter Summary ---
Author Organization [facility] Address [address] [facility] [address] [place] [address] Care Team Providers Care Shuttle Fitting Supervisor Name Role Phone Christine Kendall MD Unavailable [phone] Sita Magana MD Unavailable [phone] Nabila King MD Primary Care Provider + [phone] Regulo Pandey MD Unavailable Gigi Méndez MD Unavailable [phone] Bc Martinez MD Unavailable [phone] Reason for Referral * Diagnostic Imaging (Routine) - Closed Specialty Diagnoses / Procedures Referred By John t Referred To Contact Diagnoses Chronic bilateral low back pain with left-sided sciatica Procedures XR Spine Lumbar Complete 4 Or More Elizabeth Daniels NP [address] [place] [address] Phone: tel: [facility] Referral ID Status Reason Start Date Expiration Date Visits Re quested Visits Authorized [id number] Closed 03/02/2022 04/01/2023 1 1 Reason for Visit * Reason Comments Hip Pain Encounter Details Date Type Department Care Team (Latest Contact Info) Description 03/02/2022 9:30 AM CDT Office Visit [facility] [address] [place] [address] Elizabeth Daniels NP [address] [place] [address] Chronic pain syndrome (Primary Dx); Chronic bilateral low back pain with left-sided sciatica; Bilateral hip pain Social History Tobacco Use Types Packs/Day Years Used Date Smoking Tobacco: Never Smokeless Tobacco: Never Tobacco Cessation:Counseling Given: Yes Alcohol Use Standard Drinks/Week Comments No 0 (1 standard drink = 0.6 oz pur e alcohol) PHQ-2 Answer Date Recorded PHQ-2 Total Score (If total score is 3 or more points, staff should administer the PHQ-9) 0 12/16/2020 Comments Unknown Sex and Gender Information Value Date Recorded Sex Assigned at Not on file 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 Gender Identity Not on file Sexual Orientation Not on file 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 Not on file documented as of this encounter Last Filed Vital Signs Vital Sign Reading Time Taken Comments Blood Pressure 120/60 03/02/2022 9:33 AM CDT Pulse 81 03/02/2022 9:33 AM CDT Temperature 36.4 ??C (97.5 ??F) 03/02/2022 9:33 AM CD T Respiratory Rate 16 03/02/2022 9:33 AM CDT Oxygen Saturation 98% 03/02/2022 9:33 AM CDT Inhaled Oxygen Concentration - - Weight 54.9 kg (121 lb) 03/02/2022 9:33 AM CDT Height - - Body Mass Index 20.77 05/21/2021 9:17 AM CDT documented in this encounter Patient Instructions * Patient Instructions* Elizabeth Daniels NP - 03/02/2022 9:30 AM CDT Orders for AMS STAFF to arrange Please do xray of the lumbar spine for chronic low back pain Please do xray of the bilateral hips and pelvis for bilateral hip pain Please do ESR and CRP for chronic pain Please arrange follow up in 4-6 weeks Orders for Lisa Conn to arrange Please continue with low back and hip exercises You can use asprecreme or muscle creams You can use ice/heat for 20 minutes at at time every 1-2 hours Please try muscle relaxer at least at night Consider seeing your chiropractor Return in about 4 weeks (around 03/30/2022) for Recheck. No orders of the defined types were placed in this encounter. A brief review of all your problems, medications, and orders from today ICD-9-CM ICD-10-CM 1. Chronic pain syndrome 338.4 G89.4 2. Chronic bilateral low back pain with left-sided sciatica 724.2 M54.42 tiZANidine (ZANAFLEX) 2 mgtablet 724.3 G89.29 338.29 3. Bilateral hip pain 719.45 M25.551 M25.552 PLEASE BRING IN ALL PILL BOTTLES TO EVERY OFFICE VISIT, THIS IS ESSENTIAL FOR ACCURATE REFILLS AND MAINTAINING AN ACCURATE MEDICATION LIST. documented in this encounter Ordered Prescriptions Prescription Sig Dispense Quantity Refills Last Filled Start Date End Date tiZANidine (ZANAFLEX) 2 mg tabletIndications: Chronic bilateral low back pain with left-sided sciatica Take 1 tablet (2 mg total) by mouth every 8 (eight) hours as needed for muscle spasms 30 tablet 03/02/2022 04/15/2022 documented in this encounter Progress Notes * Elizabeth Daniels NP - 03/02/2022 9:30 AM CDT Subjective/Objective Patient ID: Lisa Conn is a 86 y.o. female. Chief Complaint Hip Pain HPI For the last couple of months she has had bilateral hip pain. She has more pain on the left side than the right. She reports at times it is weak and wants to give out from under her. She has some associated numbness and tingling in the left the leg. She has been using tylenol for pain which does not help. Review of Systems Constitutional: Negative for chills and fever. Respiratory: Negative for chest tightness and shortness of breath. Cardiovascular: Negative for chest pain and palpitations. Genitourinary: Negative for difficulty urinating. Musculoskeletal: Positive for arthralgias. Neurological: Positive for weakness and numbness. Physical Exam Vitals and nursing note reviewed. Constitutional: Appearance: Normal appearance. HENT: Head: Normocephalic and atraumatic. Cardiovascular: Rate and Rhythm: Normal rate and regular rhythm. Heart sounds: Normal heart sounds. Pulmonary: Effort: Pulmonary effort is normal. Breath sounds: Normal breath sounds. Abdominal: General: Bowel sounds are normal. Palpations: Abdomen is soft. Musculoskeletal: General: No swelling or deformity. Normal range of motion. Skin: General: Skin is warm and dry. Neurological: Mental Status: She is alert and oriented to person, place, and time. Motor: No weakness. Gait: Gait normal. Deep Tendon Reflexes: Reflexes normal. Psychiatric: Mood and Affect: Mood normal. Behavior: Behavior normal. Assessment/Plan Diagnoses and all orders for this visit: Chronic pain syndrome (G89.4) (Primary) Assessment & Plan: Patient presenting with c/o multiple aches and [...] in 4 weeks or sooner if needed. Orders: - Erythrocyte sedimentation rate; Future - CRP (acute phase); Future Chronic bilateral low back pain with left-sided sciatica (M54.42, G89.29) Assessment & Plan: Patient has history of foraminal stenosis and [...] She also has agreed to trial of musclerelaxer especially for night. We will do imaging today to r/o any acute process. Orders: - tiZANidine (ZANAFLEX) 2 mg tablet; Take 1 tablet (2 mg total) by mouth every 8 (eight) hours as needed for muscle spasms - XR Spine Lumbar Complete 4 Or More; Future Bilateral hip pain (M25.551, M25.552) Assessment & Plan: Patient is reporting bilateral hip pain that [...] no improvement may benefit from pain management. Cosigned by Nabila King MD at 03/02/2022 10:46 PM CDT documented in this encounter Miscellaneous Notes * Assessment & Plan Note - Elizabeth Daniels NP - 03/02/2022 11:23 AM CDTAssociated Problem(s): Bilateral hip pain (Resolved 04/10/2022) Patient is reporting bilateral hip pain that [...] no improvement may benefit from pain management. * Assessment & Plan Note - Elizabeth Daniels NP - 03/02/2022 11:18 AM CDTAssociated Problem(s): Chronic bilateral low back pain with left-sided sciatica (Resolved 04/10/2022) Patient has history of foraminal stenosis and [...] She also has agreed to trial of musclerelaxer especially for night. We will do imaging today to r/o any acute process. * Assessment & Plan Note - Elizabeth Daniels NP - 03/02/2022 10:15 AM CDTAssociated Problem(s): Chronic pain syndrome (Resolved 04/10/2022) Patient presenting with c/o multiple aches and [...] in 4 weeks or sooner if needed. documented in this encounter Plan of Treatment Not on file documented as of this encounter Results * XR Spine Lumbar [...] ??Grade 1 spondylolisthesis of L4-5. Elizabeth Daniels NP IMG XR PROCEDURES Final Result * CRP (acute phase) (03/02/2022 10:15 AM CDT) CRP 3.1 <=10.0 mg/L [facility] Blood 03/02/2022 10:1 5 AM CDT 03/02/2022 7:10 PM CDT [facility] Giancarlonapole[facility] [employer] LAB BLOOD ORDERABL ES Final Result Performing Organization Address [facility] de Phone Number [facility] [address] [address] [place] [address] * Erythrocyte sedimentation rate (03/02/2022 10:15 AM CDT) Erythrocyte sedimentation rate 4 1 - 30 mm/hr [facility] Blood 03/02/2022 10:1 5 AM CDT 03/02/2022 7:10 PM CDT [facility] Liat Daniels LAB BLOOD ORDERABL ES Final Result Performing Organization Address [facility] de Phone Number [facility] [address] [facility] [place] [address] documented in this encounter Visit Diagnoses Diagnosis Chronic pain syndrome- Primary Chronic bilateral low back pain with left-sided sciatica Bilateral hip pain Pain in joint, pelvic region and thigh Chronic bilateral low back pain with left-sided sciatica documented in this encounter Discontinued Medications Medication Sig Discontinue Reason Start Date End Da te magnesium oxide,aspartate,citr 400 mg magnesium capsule Take by mouth as needed Duplicate order 03/02/2022 aspirin 81 mg enteric coated tablet Take 81 mg by mouth daily 03/02/2022 magnesium oxide (MAG-OX) 400 mg (241.3 mg elemental magnesium) tabletIndications:hypoma gnesemia Take 1 tablet (400 mg total) by mouth 2 (two) times a day 11/24/2021 03/02/2022 cephalexin (KEFLEX) 250 mg capsule 10/25/2021 03/02/2022 documented as of this encounter Historical Medications * This list may reflect changes made after this encounter. apixaban (ELIQUIS) 2.5 mg tablet 1 tablet (2.5 mg total) 2 (two) times a day added in this encounter Care Teams Shuttle Fitting Supervisor Relationship Specialty Start Date End Date Nabila King MD [address] [facility] [address] [place] [address] PCP - General Internal Medicine 12/16/20 Christine Kendall MD Surgeon Ophthalmology 12/13/20 Sita Magana MD [address] [place] [address] [address] [place] [address] Consulting Physician Internal Medicine 12/13/20 Regulo Pandey MD [address] [place] [address] [address] [place] [address] Referring Physician Cardiovascular Disease 12/16/20 Gigi Méndez MD [address] [place] [address] [address] [place] [address] Referring Physician Cardiology 02/18/21 Bc Martinez MD [address] [place] [address] Consulting Physician Cardiology 10/22/21 08/21/23 documented as of this encounter
--- OUTSIDE RECORDS SUMMARY | 2024-08-09 17:48 | XMS_ITS | Encounter Summary ---
Author Organization [facility] Address [address] [place] [address] Phone Care Team Providers Care Avionics Systems Technician Name Role Phone FaizaChristine MD Unavailable [phone] Sita Magana MD Unavailable [phone] Nabila King MD Primary Care Provider [phone] Regulo Pandey MD Unavailable Gigi Méndez MD Unavailable [phone] Bc Martinez MD Unavailable [phone] Encounter Details Date Type Department Care Team (Late st Contact Info) Description 11/03/2021 Orders Only [facility] [address] [place] [address] Nabila King MD [address] [place] [place] [address] Social History Tobacco Use Types Packs/Day Years [...] on file 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 Gender Identity Not on file Sexual Orientation Not on file 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 Not on file documented as of this encounter Plan of Treatment Not on file documented as of this encounter Procedures Procedure Name Priority Date/Time Associated Diagnosis Comments SCAN - LABS 11/03/2021 documented in this encounter Results * SCAN - LABS (11/03/2021) Nabila King MD Final Resu lt documented in this encounter Visit Diagnoses Not on filedocumented in this encounter Care Teams Avionics Systems Technician Relationship Specialty Start Date End Date Nabila King MD [address] [facility] [address] [place] [address] PCP - General Internal Medicine 12/16/20 Christine Kendall MD Surgeon Ophthalmology 12/13/20 Sita Magana MD [address] [place] [address] [address] [place] [address] Consulting Physician Internal Medicine 12/13/20 Regulo Pandey MD [address] [place] [address] [address] [place] [address] Referring Physician Cardiovascular Disease 12/16/20 Gigi Méndez MD [address] [place] [address] [address] [place] [address] Referring Physician Cardiology 02/18/21 Bc Martinez MD [address] [place] [address] Consulting Physician Cardiology 10/22/21 08/21/23 documented as of this encounter
--- OUTSIDE RECORDS SUMMARY | 2024-08-09 17:48 | XMS_ITS | Encounter Summary ---
Author Organization [facility] Address [address] [facility] [address] [place] [id number] Care Team Providers Care Parts Washer Name Role Phone Christine Kendall MD Unavailable [phone] Sita Magana MD Unavailable [phone] Nabila King MD Primary Care Provider + [phone] Regulo Pandey MD Unavailable Gigi Méndez MD Unavailable [phone] Bc Martinez MD Unavailable [phone] Reason for Visit * Reason Comments Follow-up 3 MONTH Encounter Details Date Type Department Care Team (Late st Contact Info) Description 10/22/2021 10:20 AM [employer]AM AND [employer]SEMBLER Office Visit [facility] [address] [place] [address] Nabila King MD [address] [place] [address] Paroxysmal A-fib (CMS/HCC) (HCC) (Primary Dx); SVT (supraventricular tachycardia) (CMS/HCC) (HCC) Social History Tobacco Use Types [...] on file Legal Sex Female 8: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 Gender Identity Not on file Sexual Orientation Not on file 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 Not on file documented as of this encounter Last Filed Vital Signs Vital Sign Reading Time Taken Comments Blood Pressure 122/64 10/22/2021 11:49 AM [employer] AND [employer] ASSEMBLER Pulse 54 10/22/2021 11:49 AM STEAM AND G[employer] ASSEMBLER Temperature 36 ??C (96.8 ??F) 10/22/2021 11:49 AM [employer] ASSEMBLER Respiratory Rate 12 10/22/2021 11:49 AM STE[employer] AND G[employer] ASSEMBLER Oxygen Saturation 98% 10/22/2021 11:49 AM STEAM AND G[employer] ASSEMBLER Inhaled Oxygen Concentration - - Weight 54.9 kg (121 lb) 10/22/2021 11:49 AM STE[employer] AND [employer] ASSEMBLER Height - - Body Mass Index 20.77 05/21/2021 9:17 AM CDT documented in this encounter Patient Instructions * Patient Instructions* Nabila King MD - 10/22/2021 10:20 AM STE[employer] ASSEMBLER ORDERS FOR AMS STAFF TO ARRANGE 1. No labs before one-month follow-up to review her various cardiac symptoms after pacemaker ORDERS FOR Lisa Conn TO ARRANGE 1. Immunization recommendations: Tdap at the pharmacy 2. Medication change Keep Eliquis suspension recommendations from Dr. Martinez as you prepare for the upcoming pacemaker Patient Care Team: Nabila King MD as PCP - General (Internal Medicine) Christine Kendall MD as Surgeon (Ophthalmology) Sita Magana MD as Consulting Physician (Internal Medicine) Regulo Pandey MD as Referring Physician (Cardiovascular Disease) Gigi Méndez MD as Referring Physician (Cardiology) Bc Martinez MD as Consulting Physician (Cardiology) Return in about 4 weeks (around 11/19/2021) for follow-up NYHA 3 cardiac disability after AV sequential pacemaker. No orders of the defined types were placed in this encounter. A brief review of all your problems, medications, and orders from today ICD-9-CM ICD-10-CM 1. Paroxysmal A-fib (CMS/HCC) ([facility]) 427.31 I48.0 2. SVT (supraventricular tachycardia) (CMS/HCC) ([facility]) 427.89 I47.1 For your records I have provided this [...] ZOSTER Recombinant 02/02/2018, 05/03/2018 Primary Pharmacy/DME suppliers: [address] [address] PLEASE BRING IN ALL PILL BOTTLES TO EVERY OFFICE VISIT, THIS IS ESSENTIAL FOR ACCURATE REFILLS AND MAINTAINING AN ACCURATE MEDICATION LIST. PLEASE SIGN UP FOR MyCHART so that you may have access to your labs and chart documentation IF YOU HAVE TROUBLE WITH THIS PROCESS CALL [phone] M AND [employer] ASSEM[employer]ER M AND GAS TURBINE ASSEMBLER M AND GAS TURBINE ASSEMBLER documented in this encounter Progress Notes * Nabila King MD - 10/22/2021 10:20 AM CST ASSESSMENT AND PLAN Patient Instructions ORDERS FOR AMS STAFF TO ARRANGE 1. No labs before one-month follow-up to review her various cardiac symptoms after pacemaker ORDERS FOR Lisa Conn TO ARRANGE 1. Immunization recommendations: Tdap at the pharmacy 2. Medication change Keep Eliquis suspension recommendations from Dr. Martinez as you prepare for the upcoming pacemaker Patient Care Team: Nabila King MD as PCP - General (Internal Medicine) Christine Kendall MD as Surgeon (Ophthalmology) Sita Magana MD as Consulting Physician (Internal Medicine) Regulo Pandey MD as Referring Physician (Cardiovascular Disease) Gigi Méndez MD as Referring Physician (Cardiology) Bc Martinez MD as Consulting Physician (Cardiology) Return in about 4 weeks (around 11/19/2021) for follow-up NYHA 3 cardiac disability after AV sequential pacemaker. No orders of the defined types were placed in this encounter. A brief review of all your problems, medications, and orders from today ICD-9-CM ICD-10-CM 1. Paroxysmal A-fib ([facility]) ([facility]) 427.31 I48.0 2. SVT (supraventricular tachycardia) (CMS/[facility]) ([facility]) 427.89 I47.1 For your records I have provided this [...] ZOSTER Recombinant 02/02/2018, 05/03/2018 Primary Pharmacy/DME suppliers: [id number] - [place], [place] - [address] [facility] [address] PLEASE BRING IN ALL PILL BOTTLES TO EVERY OFFICE VISIT, THIS IS ESSENTIAL FOR ACCURATE REFILLS AND MAINTAINING AN ACCURATE MEDICATION LIST. PLEASE SIGN UP FOR Aviacomm so that you may have access to your labs and chart documentation IF YOU HAVE TROUBLE WITH THIS PROCESS CALL [phone] CHIEF COMPLAINT Follow-up (3 MONTH) HISTORY OF PRESENT ILLNESS Lisa Conn returns today for her 3 MONTH follow-up to review Chronic medical problems and discuss her concerns, Review new orders, and brown bag medication review with all medications broughtto the office, Refill Management where indicated . Important details of this conversation, exam, and plan for care are summarized at the top and bottom of this comprehensive note for the readers quick access to the information. ORDERS FROM LAST VISIT WITH ME 1. Free T4 TSH for three-month follow-up = hypothyroid adult 2. Refer [facility] physical therapy for rotator bilateral cuff disorder ? ORDERS FOR Lisa Conn TO ARRANGE 1. Immunization recommendation Tdap at the pharmacy ?? 2. Tachy-kelechi sent I recommend pacemaker, followed by treatment of the fast rhythm with medications by your cardiology. contact me with the results of the consultation with your end user consultant on DETAILS REGARDING THIS VISIT: Lisa reports feeling poorly : 1. Sick sinus syndrome with symptomatic bradycardia, Paroxysmal A-fib (CMS/HCC) (HCC) And SVT (supraventricular tachycardia) (CMS/HCC) (HCC) She has no ischemic coronary disease that (-) coronary calcium score. She is having chest pain shortness of breath fatigue malaise dizziness weakness all outlined on her review of systems. These are related wide fluctuations in her pulse. She will have symptoms from very fast pulse and symptoms from very slow pulse. She has seen Dr. Martinez in consultation is taking over as her main end user consultant and he is scheduled on Monday for a pacemaker. She needed reassurance of this is the correct doctor to do this and that this is the correct intervention. I reassured that she is in the best of handsand that I would encourage compliance with his recommendations. We agreed follow-up here in a monthto make sure that all of her symptoms have resolved through the perioperative. With him as the pacemaker is adjusted to match her activity desires. SOCIAL HISTORY Social History Tobacco Use ??? Smoking status: Never Smoker ??? Smokeless tobacco: Never Used Substance Use Topics ??? Alcohol use: No REVIEW OF SYSTEMS Review of Systems Constitutional: Positive for activity change and fatigue. Negative for appetite change, fever and unexpected weight change. HENT: Negative for congestion, dental problem, hearing loss, postnasal drip, sinus pressure, sore throat and trouble swallowing. Eyes: Negative for pain, discharge, itching and visual disturbance. Respiratory: Positive for shortness of breath. Negative for cough, chest tightness and wheezing. Cardiovascular: Positive for chest pain and palpitations. Gastrointestinal: Negative [...] rash. Neurological: Positive for dizziness, weakness and light-headedness. Negative for seizures, syncopeand headaches. Hematological: Negative for adenopathy. Does not bruise/bleed easily. Psychiatric/Behavioral: Positive for decreased concentration and sleep disturbance. Negative for behavioral problems and dysphoric mood. The patient is not nervous/anxious. MEDICATIONS CHANGED / CLEANED UP THIS VISIT There are no discontinued medications. MEDICATION LIST AT CONCLUSION OF THIS VISIT Current Outpatient Medications Ordered in [facility] Medication Sig Dispense Refill ??? apixaban (ELIQUIS) 2.5 mg tablet Take 2.5 mg by mouth 2 (two) times a day ??? ketorolac (ACULAR LS) 0.4 % drops Administer 1 drop into both eyes 3 (three) times a day 5 mL 11 ??? levothyroxine (SYNTHROID) 50 mcg tablet Take 1 tablet (50 mcg total) by mouth nightly 100 tablet 1 ??? multivitamin capsule Take 1 capsule by mouth daily ??? cholecalciferol (VITAMIN D-3) 5,000 unit capsule Take 5,000 Units by mouth daily (Patient not taking: Reported on 10/22/2021) ??? magnesium oxide,aspartate,citr 400 mg magnesium capsule Take by mouth (Patient not taking: Reported on 10/22/2021) ??? melatonin 5 mg capsule take 1 tablet every night before bed (Patient not taking: Reported on 10/22/2021) 0 No current [facility]-ordered facility-administered medications on file. ALLERGIES is allergic to clarithromycin, metronidazole, sulfa (sulfonamide antibiotics), and chloramphenicol. PHYSICAL EXAM body mass index is 20.77 kg/m??. Vitals: 10/22/21 1149 BP: 122/64 BP Location: Left arm Patient Position: Sitting Pulse: 54 Resp: 12 Temp: 36 ??C (96.8 ??F) TempSrc: Temporal SpO2: 98% Weight: 54.9 kg (121 lb) Physical Exam Vitals and nursing note reviewed. Constitutional: General: She is not in acute distress. Appearance: Normal appearance. She is well-developed. She is not ill-appearing. HENT: Head: Normocephalic [...] Thyroid: No thyromegaly. Cardiovascular: Rate and Rhythm: Regular rhythm. Bradycardia present. Heart sounds: Normal heart sounds. No murmur heard. No gallop. Pulmonary: Effort: Pulmonary effort is normal. Breath sounds: Normal breath sounds. No wheezing, rhonchi or rales. Abdominal: General: Bowel sounds are normal. There is no distension. Palpations: Abdomen is soft. There is no mass. Tenderness: There is no abdominal tenderness. Hernia: No hernia is present. Musculoskeletal: General: No tenderness or deformity. Normal [...] Patient Active Problem List Diagnosis Code ??? Mitral valve disease I05.9 ??? History of osteoporosis Z87.39 ??? Low-tension [...] thyroiditis E06.3 ??? Sick sinus syndrome (CMS/HCC) (HCC) I49.5 Nabila King M.D. [employer]SEM[employer]ER documented in this encounter Plan of Treatment Not on file documented as of this encounter Visit Diagnoses Diagnosis Paroxysmal A-fib (CMS/HCC) (HCC)- Primary SVT (supraventricular tachycardia) (HCC) Other specified cardiac dysrhythmias documented in this encounter Care Teams Parts Washer Relationship Specialty Start Date End Date Nabila King MD [address] [place] [address] [facility] [address] [place] [address] PCP - General Internal Medicine 12/16/20 Christine Kendall MD Surgeon Ophthalmology 12/13/20 Sita Magana MD [address] [place] [address] Consulting Physician Internal Medicine 12/13/20 Regulo Pandey MD [address] [place] [address] Referring Physician Cardiovascular Disease 12/16/20 Gigi Méndez MD [address] [place] [address] Referring Physician Cardiology 02/18/21 Bc Martinez MD [address] [place] [address] Consulting Physician Cardiology 10/22/21 08/21/23 documented as of this encounter
--- OUTSIDE RECORDS SUMMARY | 2024-08-09 17:48 | XMS_ITS | Encounter Summary ---
Author Organization [facility] Address [address] [facility] [address] [place] [address] Care Team Providers Care Newspaper Publisher Name Role Phone Christine Kendall MD Unavailable [phone] Sita Magana MD Unavailable [phone] Nabila King MD Primary Care Provider + [phone] Regulo Pandey MD Unavailable Gigi Méndez MD Unavailable [phone] Bc Martinez MD Unavailable [phone] Reason for Visit * Reason Comments Follow-up 2 week Encounter Details Date Type Department Care Team (Late st Contact Info) Description 12/14/2021 11:40 AM CDT Office Visit [facility] [address] [place] [address] Nabila King MD [address] [facility] [place] [address] Presence of cardiac pacemaker (Primary Dx); Paroxysmal A-fib (CMS/HCC) (HCC); SVT (supraventricular tachycardia) (CMS/HCC) (HCC); Gastroesophageal reflux disease, unspecified whether esophagitis present [...] on file Legal 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 Gender Identity Not on file Sexual Orientation Not on file 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 Not on file documented as of this encounter Last Filed Vital Signs Vital Sign Reading Time Taken Comments Blood Pressure 120/70 12/14/2021 12:39 PM CDT Pulse 80 12/14/2021 12:39 PM CDT Temperature 36.9 ??C (98.4 ??F) 12/14/2021 12:39 PM C DT Respiratory Rate 12 12/14/2021 12:39 PM CDT Oxygen Saturation 98% 12/14/2021 12:39 PM CDT Inhaled Oxygen Concentration - - Weight 55.8 kg (123 lb) 12/14/2021 12:39 PM CDT Height - - Body Mass Index 21.11 05/21/2021 9:17 AM CDT documented in this encounter Patient Instructions * Patient Instructions* Nabila King MD - 12/14/2021 11:40 AM CDT ORDERS FOR AMS STAFF TO ARRANGE 1. Contact Dr. Martinez office to get [...] be seeing Dr. Martinez for lab update ORDERS FOR Lisa Conn TO ARRANGE 1. Immunization recommendations: Tdap at the pharmacy Sign up for the COVID booster, this will be your 4th shot 2. Activity order Resume all normal activities Try to start some mild aerobic exercise, I recommend walking, step machine racehorse trainer, recumbent bike,avoid the treadmill Resume the shoulder training exercises taught in physical therapy 3. Medication change I agree with the plan to continue on Cardizem 30 mg 3 times daily, 60 3 times daily does not work because it makes the blood pressure too low Continue magnesium oxide to stabilize the heart rhythm The keep follow-up with Dr. Martinez as scheduled in February Patient Care Team: Nabila King MD as PCP - General (Internal Medicine) Christine Kendall MD as Surgeon (Ophthalmology) Sita Magana MD as Consulting Physician (Internal Medicine) Regulo Pandey MD as Referring Physician (Cardiovascular Disease) Gigi Méndez MD as Referring Physician (Cardiology) Bc Martinez MD as Consulting Physician (Cardiology) Return in about 16 weeks (around 04/05/2022) for Annual physical, Recheck. No orders of the defined types were placed in this encounter. A brief review of all your problems, medications, and orders from today ICD-9-CM ICD-10-CM 1. Presence of cardiac pacemaker V45.01 Z95.0 2. Paroxysmal A-fib ([facility]) ([facility]) 427.31 I48.0 3. SVT (supraventricular tachycardia) ([facility]) ([facility]) 427.89 I47.1 4. Gastroesophageal reflux disease, unspecified whether esophagitis present 530.81 K21.9 For your records I have provided this [...] ZOSTER Recombinant 02/02/2018, 05/03/2018 Primary Pharmacy/DME suppliers: [facility] [address] [place] [address] [address] [facility] [address] [facility] [address] PLEASE BRING IN ALL PILL BOTTLES TO EVERY OFFICE VISIT, THIS IS ESSENTIAL FOR ACCURATE REFILLS AND MAINTAINING AN ACCURATE MEDICATION LIST. PLEASE SIGN UP FOR MyCHART so that you may have access to your labs and chart documentation IF YOU HAVE TROUBLE WITH THIS PROCESS CALL [phone] documented in this encounter Progress Notes * Nabila King MD - 12/14/2021 11:40 AM CDT ASSESSMENT AND PLAN Patient Instructions ORDERS FOR AMS STAFF TO ARRANGE 1. Contact Dr. Martinez office to get [...] be seeing Dr. Martinez for lab update ORDERS FOR Lisa Conn TO ARRANGE 1. Immunization recommendations: Tdap at the pharmacy Sign up for the COVID booster, this will be your 4th shot 2. Activity order Resume all normal activities Try to start some mild aerobic exercise, I recommend walking, step machine racehorse trainer, recumbent bike,avoid the treadmill Resume the shoulder training exercises taught in physical therapy 3. Medication change I agree with the plan to continue on Cardizem 30 mg 3 times daily, 60 3 times daily does not work because it makes the blood pressure too low Continue magnesium oxide to stabilize the heart rhythm The keep follow-up with Dr. Martinez as scheduled in February Patient Care Team: Nabila King MD as PCP - General (Internal Medicine) Christine Kendall MD as Surgeon (Ophthalmology) Sita Magana MD as Consulting Physician (Internal Medicine) Regulo Pandey MD as Referring Physician (Cardiovascular Disease) Gigi Méndez MD as Referring Physician (Cardiology) Bc Martinez MD as Consulting Physician (Cardiology) Return in about 16 weeks (around 04/05/2022) for Annual physical, Recheck. No orders of the defined types were placed in this encounter. A brief review of all your problems, medications, and orders from today ICD-9-CM ICD-10-CM 1. Presence of cardiac pacemaker V45.01 Z95.0 2. Paroxysmal A-fib ([facility]) ([facility]) 427.31 I48.0 3. SVT (supraventricular tachycardia) ([facility]) ([facility]) 427.89 I47.1 4. Gastroesophageal reflux disease, unspecified whether esophagitis present 530.81 K21.9 For your records I have provided this [...] ZOSTER Recombinant 02/02/2018, 05/03/2018 Primary Pharmacy/DME suppliers: [facility] [address] [employer], [place] - [address] [employer] [place] [address] [place] [address] PLEASE BRING IN ALL PILL BOTTLES TO EVERY OFFICE VISIT, THIS IS ESSENTIAL FOR ACCURATE REFILLS AND MAINTAINING AN ACCURATE MEDICATION LIST. PLEASE SIGN UP FOR [employer] so that you may have access to your labs and chart documentation IF YOU HAVE TROUBLE WITH THIS PROCESS CALL [phone] CHIEF COMPLAINT Follow-up (2 week) HISTORY OF PRESENT ILLNESS Lisa Conn returns to follow-up on medication changes at last visit for AFib RVR and recheck persistence of fatigue and malaise after pacemaker, medication changes Treatment of this problem also required a [...] prescriptions. ORDERS FROM LAST VISIT WITH ME 11/24/[address] Martinez already today, I would not be sent. He has recommended the diltiazem magnesium combination prescribed today ?? 2. Make a copy of echocardiogram, carotid Doppler from October 2019 Dr. Martinez office to give to her and the CT head scan from 11/02 ?? ORDERS FOR Lisa Conn TO ARRANGE ?? 1. Immunization recommendations: Everything is up-to-date ?? 2. Medication changes Diltiazem 60 mg 3 times daily Magnesium oxide 400 mg 2 times daily ?? Follow the acid reflux regimen outlined below ?? I will contact you with the report from the pacemaker download ?? Start the sleep interventions especially the cognitive behavioral therapy outlined below to help with restorative sleep DETAILS REGARDING THIS VISIT: Lisa reports feeling improved 1. Presence of cardiac pacemaker 2. SVT (supraventricular tachycardia) (CMS/HCC) ([facility]) 4. Paroxysmal A-fib (CMS/HCC) ([facility]) 3. Gastroesophageal reflux disease, unspecified whether esophagitis present Dyspepsia symptoms resolved with control of her heart rate and rhythm and she is not taking Protonix SOCIAL HISTORY Social History Tobacco Use ??? [...] color change and rash. Neurological: Positive for weakness (Resolved when she decreased the Cardizem to 30 mg 3 times daily). Negative for dizziness and headaches. Hematological: Negative for adenopathy. Does not bruise/bleed easily. Psychiatric/Behavioral: Negative for behavioral problems, dysphoric mood and sleep disturbance. Thepatient is not nervous/anxious. MEDICATIONS CHANGED / CLEANED UP THIS VISIT Medications Discontinued During This Encounter Medication Reason ??? pantoprazole DR (PROTONIX) 20 mg EC tablet Therapy completed MEDICATION LIST AT CONCLUSION OF THIS VISIT Current Outpatient Medications Ordered in [employer] Medication Sig Dispense Refill ??? aspirin 81 mg enteric coated tablet Take 81 mg by mouth daily ??? dilTIAZem (CARDIZEM) 60 mg tablet Take [...] mouth nightly 100 tablet 1 ??? magnesium oxide (MAG-OX) 400 mg (241.3 mg elemental magnesium) tablet Take 1 tablet (400 mg total) by mouth 2 (two) times a day 60 tablet 11 ??? magnesium oxide,aspartate,citr 400 mg magnesium capsule Take by mouth as needed ??? multivitamin capsule Take 1 capsule by mouth daily ??? cephalexin (KEFLEX) 250 mg capsule (Patient not taking: Reported on 12/14/2021) No current Epic-ordered facility-administered medications on file. ALLERGIES is allergic to clarithromycin, metronidazole, other, sulfa (sulfonamide antibiotics), and chloramphenicol. PHYSICAL EXAM body mass index is 21.11 kg/m??. Vitals: 12/14/21 1239 BP: 120/70 BP Location: Left arm Patient Position: Sitting Pulse: 80 Resp: 12 Temp: 36.9 ??C (98.4 ??F) TempSrc: Temporal SpO2: 98% Weight: 55.8 kg (123 lb) [...] No murmur heard. No gallop. Comments: Pacemaker left upper chest Pulmonary: Effort: Pulmonary effort is normal. Breath [...] Coloration: Skin is not jaundiced. Findings: No erythema, lesion or rash (The routine normal healing from pacemaker). Neurological: General: No focal deficit present. Mental [...] ??? eGFR 12/16/2020 76 mL/min/1.73 m2 Final Patient Active Problem List Diagnosis Code ??? History of osteoporosis Z87.39 ??? 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 Nuclear senile cataract, right H25.11 ??? Pseudophakia Z96.1 ??? 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 Acute on chronic diastolic heart failure (CMS/HCC) ([facility]) I50.33 ??? Ventricular septal defect (VSD) Q21.0 ??? 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 Palpitation R00.2 ??? History of hematuria Z87.448 ??? ASVD (arteriosclerotic vascular disease) I70.90 ??? History of adenomatous polyp of colon Z86.010 ??? 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 Urinary frequency R35.0 ??? Other atopic dermatitis L20.89 ??? Hospital discharge follow-up Z09 ??? SVT (supraventricular tachycardia) (CMS/HCC) ([facility]) I47.1 ??? Paroxysmal A-fib (CMS/HCC) ([facility]) I48.0 ??? History of Helicobacter pylori infection Z86.19 ??? 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 Adjustment disorder with anxiety F43.22 ??? 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 Dizziness R42 ??? Alan's thyroiditis E06.3 ??? Sick sinus syndrome (CMS/HCC) ([facility]) I49.5 ??? Presence of cardiac pacemaker Z95.0 Nabila King M.D. documented in this encounter Plan of Treatment Not on file documented as of this encounter Visit Diagnoses Diagnosis Presence of cardiac pacemaker- Primary Cardiac pacemaker in situ Paroxysmal A-fib (CMS/HCC) ([facility]) SVT (supraventricular tachycardia) ([facility]) Other specified cardiac dysrhythmias Gastroesophageal reflux disease, unspecified whether esophagitis present documented in this encounter Discontinued Medications Medication Sig Discontinue Reason Start Date End Da te pantoprazole DR (PROTONIX) 20 mg EC tabletIndications:Gastroe sophageal reflux disease, unspecified whether esophagitis present Take 1 tablet (20 mg total) by mouth daily Therapy completed 11/24/2021 12/14/2021 documented as of this encounter Care Teams Newspaper Publisher Relationship Specialty Start Date End Date Nabila King MD [address] [facility] [address] [place] [address] PCP - General Internal Medicine 12/16/20 Christine Kendall MD Surgeon Ophthalmology 12/13/20 Sita Magana MD [address] [place] [address] Consulting Physician Internal Medicine 12/13/20 Regulo Pandey MD [address] [place] [address] Referring Physician Cardiovascular Disease 12/16/20 Gigi Méndez MD [address] [facility] [address] [place] [address] Referring Physician Cardiology 02/18/21 Bc Martinez MD [address] [place] [address] Consulting Physician Cardiology 10/22/21 08/21/23 documented as of this encounter
--- OUTSIDE RECORDS SUMMARY | 2024-08-09 17:48 | XMS_ITS | Encounter Summary ---
Author Organization [facility] Address [address] [facility] [address] [place] [address] Care Team Providers Care Mine Geologist Name Role Phone Christine Kendall MD Unavailable [phone] Sita Magana MD Unavailable [phone] Nabila King MD Primary Care Provider [phone] Regulo Pandey MD Unavailable Gigi Méndez MD Unavailable [phone] Bc Martinez MD Unavailable [phone] Encounter Details Date Type Department Care Team (Late st Contact Info) Description 10/27/2021 Telephone [facility] [address] [place] [address] Nabila King MD [address] [facility] [place] [address] Social History Tobacco Use Types Packs/Day Years [...] on file Legal Sex Female 8:14 PM FORMING YARDAGE CONTROL OPERATOR Gender Identity Not on file Sexual Orientation Not on file 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 Not on file documented as of this encounter Ordered Prescriptions Prescription Sig Dispense Quantity Refills Last Filled Start Date End Date triamcinolone (KENALOG) 0.1 % ointment Apply topically 2 (two) times a day as needed for irritation or rash for up to 14 days 30 g 10/27/2021 2 documented in this encounter Miscellaneous Notes * Addendum Note - Eliu Sarah RN - 10/27/2021 11:39 AM CSTAddended by: ELIU SARAH on: 10/27/2021 11:39 AM Modules accepted: Orders ING YARDAGE CONTROL OPERATOR * Telephone Encounter - Eliu Sarah RN - 10/27/2021 11:35 AM FORMING YARDAGE CONTROL OPERATOR Spoke to pt et informed of below LICENSING SERVICES CLERK message Below Rx sent Nico Gibson Pt voices understand et has no further questions @ this time ING YARDAGE CONTROL OPERATOR * Telephone Encounter - Elizabeth Daniels NP - 10/27/2021 11:30 AM FORMING YARDAGE CONTROL OPERATOR We can send rx for triamcinolone cream BID x 14 days. If no improvement will need visit. ING YARDAGE CONTROL OPERATOR * Telephone Encounter - Maxine Szymanski RN - 10/27/2021 10:59 AM CST Pt having skin redness where the EKG patches were-has 9 areas on her chest/abdomen. She is using Hydrocortisone cream et taking Claritin. Unable to take benadryl, causes her to feel jittery . Pt concerned as this happened last year et rash got really bad . Wanting to know what else she can try? Tried to schedule her for an appt et pt doesn't drive-she doesn't have a ride. Please advise. ING YARDAGE CONTROL OPERATOR * Telephone Encounter - Kim Bajwa - 10/27/2021 9:07 AM CST Patient had a pacemaker pout in on Monday and she is allergic to the ekg pads and she is broken outand itching. Last time this happened she was broke out in hives for three weeks and she was a mess.She would like something called in. She cannot take benadryl. She thought some cream would work. Paige Gonzalez. Cbn: [phone] ING YARDAGE CONTROL OPERATOR * Telephone Encounter - Imelda Wilson - 10/27/2021 8:47 AM CST Received fax from [facility] heart and vascular regarding chest routine results. Copy placed in Daqi's mailbox Original placed in scanning box ING YARDAGE CONTROL OPERATOR documented in this encounter Plan of Treatment Not on file documented as of this encounter Visit Diagnoses Not on filedocumented in this encounter Care Teams Mine Geologist Relationship Specialty Start Date End Date Nabila King MD [address] [place] [address] [address] [place] [address] PCP - General Internal Medicine 12/16/20 Christine Kendall MD Surgeon Ophthalmology 12/13/20 Sita Magana MD [address] [place] [address] [address] [place] [address] Consulting Physician Internal Medicine 12/13/20 Regulo Pandey MD [address] [facility] [address] [place] [address] Referring Physician Cardiovascular Disease 12/16/20 Gigi Méndez MD [address] [facility] [address] [place] [address] Referring Physician Cardiology 02/18/21 Bc Martinez MD [address] [place] [address] Consulting Physician Cardiology 10/22/21 08/21/23 documented as of this encounter
--- OUTSIDE RECORDS SUMMARY | 2024-08-09 17:48 | XMS_ITS | Encounter Summary ---
Author Organization [facility] Address [address] [place] [address] Phone Care Team Providers Care Longwall Headgate Operator Name Role Phone FaizaChristine MD Unavailable [phone] Sita Magana MD Unavailable [phone] Nabila King MD Primary Care Provider [phone] Regulo Pandey MD Unavailable Gigi Méndez MD Unavailable [phone] Bc Martinez MD Unavailable [phone] Encounter Details Date Type Department Care Team (Late st Contact Info) Description 11/02/2021 Orders Only [facility] [address] [place] [address] Nabila King MD [address] [place] [address] Social History Tobacco Use Types Packs/Day Years [...] on file Legal Sex Female 8:14 PM CONTENT DIRECTOR Gender Identity Not on file Sexual Orientation Not on file 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 Not on file documented as of this encounter Plan of Treatment Not on file documented as of this encounter Procedures Procedure Name Priority Date/Time Associated Diagnosis Comments SCAN - RADIOLOGY/IMAGING 11/02/2021 SCAN - LABS 11/02/2021 documented in this encounter Results * SCAN - LABS (11/02/2021) us Nabila King MD Final Resu lt * SCAN - RADIOLOGY/IMAGING (11/02/2021) Anatomical Region Laterality Modality Other us Nabila King MD Edited Res ult - Final documented in this encounter Visit Diagnoses Not on filedocumented in this encounter Care Teams Longwall Headgate Operator Relationship Specialty Start Date End Date Nabila King MD [address] [place] [address] [address] [place] [address] PCP - General Internal Medicine 12/16/20 Christine Kendall MD Surgeon Ophthalmology 12/13/20 Sita Magana MD [address] [place] [address] [address] [place] [address] Consulting Physician Internal Medicine 12/13/20 Regulo Pandey MD [address] [place] [address] [address] [place] [address] Referring Physician Cardiovascular Disease 12/16/20 Gigi Méndez MD [address] [place] [address] [address] [place] [address] Referring Physician Cardiology 02/18/21 Bc Martinez MD [facility] [place] [address] Consulting Physician Cardiology 10/22/21 08/21/23 documented as of this encounter
--- OUTSIDE RECORDS SUMMARY | 2024-08-09 17:48 | XMS_ITS | Encounter Summary ---
Author Organization [facility] Address [address] [place] [address] Phone Care Team Providers Care Laser Engraver Name Role Phone Christine Kendall MD Unavailable [phone] Sita Magana MD Unavailable [phone] Nabila King MD Primary Care Provider [phone] Regulo Pandey MD Unavailable Gigi Méndez MD Unavailable [phone] Encounter Details Date Type Department Care Team (Late st Contact Info) Description 10/14/2021 Telephone [facility] [place] [address] Christine Kendall MD [address] [facility] DE[facility] O[facility]Y, 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 Kendall's recommendation. Pt was very thankful and told me to tell Dr. Kendall she greatly appreciates it. CLUB TRAVEL COUNSELOR * Telephone Encounter - Gracy Ocampo COA - 10/14/2021 1:14 PM CST ----- Message from Christine Kendall MD sent at 10/05/2021 8:30 PM AUTO CLUB TRAVEL COUNSELOR ----- [phone] I do not know which of the cardiology faculty is most appropriate for her (so many!) I recommend that she call the number above and explain her issues for a proper referral. They may want to review her records. ----- Message ----- From: Christine Kendall MD Sent: 09/20/2021 6:48 PM AUTO CLUB TRAVEL COUNSELOR To: Christine Kendall MD Referral to vibrator operator/EP CLUB TRAVEL COUNSELOR documented in this encounter Plan of Treatment Not on file documented as of this encounter Visit Diagnoses Not on filedocumented in this encounter Care Teams Laser Engraver Relationship Specialty Start Date End Date Nabila King MD [address] [place] [address] [address] [place] [address] PCP - General Internal Medicine 12/16/20 Christine Kendall MD Surgeon Ophthalmology 12/13/20 Sita Magana MD [address] [place] [address] [address] [place] [address] Consulting Physician Internal Medicine 12/13/20 Regulo Pandey MD [address] [facility] [address] [place] [address] Referring Physician Cardiovascular Disease 12/16/20 Gigi Méndez MD [address] [facility] [address] [place] [address] Referring Physician Cardiology 02/18/21 documented as of this encounter
--- OUTSIDE RECORDS SUMMARY | 2024-08-09 17:48 | XMS_ITS | Encounter Summary ---
Author Organization [facility] Address [address] [facility] [address] [place] [address] Care Team Providers Care Vp Customer Service Name Role Phone Christine Kendall MD Unavailable [phone] Sita Magana MD Unavailable [phone] Nabila King MD Primary Care Provider [phone] Regulo Pandey MD Unavailable Gigi Méndez MD Unavailable [phone] Bc Martinez MD Unavailable [phone] Encounter Details Date Type Department Care Team (Late st Contact Info) Description 12/14/2021 Telephone [facility] [address] [place] [address] Nabila King MD [address] [place] [address] Social History Tobacco Use Types Packs/Day Years [...] on file Legal Sex Female 8:14 PM EXTERMINATOR Gender Identity Not on file Sexual Orientation Not on file 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 * Telephone Encounter - Nabila King MD - 12/15/2021 6:02 PM CDT Please contact the patient, inform her of the good news that there has been no AFib. Her heart rateand rhythm has been really well controlled since November 19, she will be thrilled. 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 Martinez office to get a download off of her pacemaker and make sure that in the past 15 days she has had no AFib, when you contact the office inform them that she could not tolerate 60 mg t.i.d. Cardizem because of low blood pressure and weakness, she is tolerating 30 t.i.d. Pt asks that once records have been retrived that the office calls to inform her as well since she doesn't use MyChart. documented in this encounter Plan of Treatment Not on file documented as of this encounter Visit Diagnoses Not on filedocumented in this encounter Care Teams Vp Customer Service Relationship Specialty Start Date End Date Nabila King MD [address] [facility] [address] [place] [address] PCP - General Internal Medicine 12/16/20 Christine Kendall MD Surgeon Ophthalmology 12/13/20 Sita Magana MD [address] [place] [address] [address] [place] [address] Consulting Physician Internal Medicine 12/13/20 Regulo Pandey MD [address] [place] [address] [address] [place] [address] Referring Physician Cardiovascular Disease 12/16/20 Gigi Méndez MD [address] [place] [address] [address] [place] [address] Referring Physician Cardiology 02/18/21 Bc Martinez MD [address] [place] [address] Consulting Physician Cardiology 10/22/21 08/21/23 documented as of this encounter
--- OUTSIDE RECORDS SUMMARY | 2024-08-09 17:49 | XMS_ITS | Encounter Summary ---
Author Organization [facility] Address [address] [facility] [address] [place] [address] Care Team Providers Care Flying I Instructor Name Role Phone Christine Kendall MD Unavailable [phone] Sita Magana MD Unavailable [phone] Nabila King MD Primary Care Provider [phone] Regulo Pandey MD Unavailable Gigi Méndez MD Unavailable [phone] Encounter Details Date Type Department Care Team (Late st Contact Info) Description 02/18/2021 1:30 PM CDT [facility] [address] [place] [id number] Social History Tobacco Use Types Packs/Day Years [...] on file Legal Sex Female 8:14 PM FITTER HELPER Gender Identity Not on file Sexual Orientation Not on file 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 Not on file documented as of this encounter Plan of Treatment Not on file documented as of this encounter Visit Diagnoses Not on filedocumented in this encounter Care Teams Flying I Instructor Relationship Specialty Start Date End Date Nabila King MD [address] [place] [address] [address] [place] [address] PCP - General Internal Medicine 12/16/20 Christine Kendall MD Surgeon Ophthalmology 12/13/20 Sita Magana MD [address] [place] [address] [address] [place] [address] Consulting Physician Internal Medicine 12/13/20 Regulo Pandey MD [address] [place] [address] [address] [place] [address] Referring Physician Cardiovascular Disease 12/16/20 Gigi Méndez MD [address] [facility] [address] [place] [address] Referring Physician Cardiology 02/18/21 documented as of this encounter
--- OUTSIDE RECORDS SUMMARY | 2024-08-09 17:49 | XMS_ITS | Encounter Summary ---
Author Organization [facility] Address [address] [facility] [address] [place] [address] Care Team Providers Care Rack Worker Name Role Phone Christine Kendall MD Unavailable [phone] Sita Magana MD Unavailable [phone] Nabila King MD Primary Care Provider + [phone] Regulo Pandey MD Unavailable Gigi Méndez MD Unavailable [phone] Reason for Visit * Reason Comments Follow-up 4 month Encounter Details Date Type Department Care Team (Late st Contact Info) Description 04/19/2021 1:20 PM CDT Office Visit [facility] [address] [place] [id number] Nabila King MD [address] [place] [address] Tiredness (Primary Dx); Nausea; History of Helicobacter pylori infection; Adjustment insomnia; Adjustment disorder with anxiety; 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5 kg (118 lb) 04/19/2021 12:57 PM CDT Height - - Body Mass Index 19.64 12/16/2020 2:38 PM CDT documented in this encounter Patient Instructions * Patient Instructions* Nabila King MD - 04/19/2021 1:20 PM CDT ORDERS FOR AMS STAFF TO ARRANGE 1. Results of the sleep study done in [facility] with [facility] about 10 years ago ORDERS FOR Lisa Conn TO ARRANGE 1. Immunization recommendation High-dose flu shot in May 22. Medication changes --Fluoxetine 10 mg 1 tablet daily for especially anxiety provoking days that may also be associatedwith palpitations from the Afib --Stop trazodone, and makes you feel bad. For sleep may continue on melatonin up to 10 mg nightly YinYoga is my favorite mind fullness to help with sleep at night Begin YinYoga 30- minutes before bed This is available for free online, classes by Angela are very good for upper back and shoulder, classes by Agapito Carrera are excellent for lower back , ITB and hamstrings. Patient Care Team: Nabila King MD as PCP - General (Internal Medicine) Christine Kendall MD as Surgeon (Ophthalmology) Sita Magana MD as Consulting Physician (Internal Medicine) Regulo Pandey MD as Referring Physician (Cardiovascular Disease) Gigi Méndez MD as Referring Physician (Cardiology) Return in about 3 months (around 07/20/2021) for Alan's and thyroid adjustment, review sleep studies and consider sleep medications. No orders of the defined types were placed in this encounter. A brief review of all your problems, medications, and orders from today ICD-9-CM ICD-10-CM 1. Tiredness 780.79 R53.83 2. Nausea 787.02 R11.0 3. History of Helicobacter pylori infection V12.09 Z86.19 4. Adjustment insomnia 307.41 F51.02 5. Adjustment disorder with anxiety 309.24 F43.22 FLUoxetine (PROzac) 10 mg tablet/capsule 6. 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 DT 03/21/2015 ??? Influenza, Quadrivalent, High Dose, Preservative Free, Intrr 06/17/2019, 05/01/2020 ??? Influenza, Trivalent, High Dose, Split, Preservative Free, Intramuscular 05/15/2014, 05/08/2016, 05/07/2017, 05/03/2018, 06/17/2019 ??? Influenza, Trivalent, Intramuscular 06/20/2012 ??? Influenza, Trivalent, Preservative Free, Intramuscular 05/22/2015 ??? Influenza, Unspecified 06/20/2012, 05/15/2014, 05/22/2015, 05/08/2016, 05/07/2017, 05/03/2018, 06/17/2019 ??? Pfizer SARS-CoV-2 Vaccination 10/13/2020, 11/03/2020 ??? Pneumococcal Conjugate PCV 13 05/08/2016 ??? Pneumococcal Conjugate, Unspecified 06/18/2008 ??? ZOSTER Recombinant 02/02/2018, 05/03/2018 Primary Pharmacy/DME suppliers: [facility] - [place], [place] - [address] [address] PLEASE BRING IN ALL PILL BOTTLES TO EVERY OFFICE VISIT, THIS IS ESSENTIAL FOR ACCURATE REFILLS AND MAINTAINING AN ACCURATE MEDICATION LIST. 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 Results of the sleep study done in [place] connected with [facility] about 10 years ago ORDERS FOR Lisa Conn TO ARRANGE 1. Immunization recommendation High-dose flu shot in May 22. Medication changes --Fluoxetine 10 mg 1 tablet daily for especially anxiety provoking days that may also be associatedwith palpitations from the Afib --Stop trazodone, and makes you feel bad. For sleep may continue on melatonin up to 10 mg nightly YinYoga is my favorite mind fullness to help with sleep at night Begin YinYoga 30- minutes before bed This is available for free online, classes by Angela are very good for upper back and shoulder, classes by Agapito Carrera are excellent for lower back , ITB and hamstrings. Patient Care Team: Nabila King MD as PCP - General (Internal Medicine) Christine Kendall MD as Surgeon (Ophthalmology) Sita Magana MD as Consulting Physician (Internal Medicine) Regulo Pandey MD as Referring Physician (Cardiovascular Disease) Gigi Méndez MD as Referring Physician (Cardiology) Return in about 3 months (around 07/20/2021) for Alan's and thyroid adjustment, review sleep studies and consider sleep medications. No orders of the defined types were placed in this encounter. A brief review of all your problems, medications, and orders from today ICD-9-CM ICD-10-CM 1. Tiredness 780.79 R53.83 2. Nausea 787.02 R11.0 3. History of Helicobacter pylori infection V12.09 Z86.19 4. Adjustment insomnia 307.41 F51.02 5. Adjustment disorder with anxiety 309.24 F43.22 FLUoxetine (PROzac) 10 mg tablet/capsule 6. 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 DT 03/21/2015 ??? Influenza, Quadrivalent, High Dose, Preservative Free, Intrr 06/17/2019, 05/01/2020 ??? Influenza, Trivalent, High Dose, Split, Preservative Free, Intramuscular 05/15/2014, 05/08/2016, 05/07/2017, 05/03/2018, 06/17/2019 ??? Influenza, Trivalent, Intramuscular 06/20/2012 ??? Influenza, Trivalent, Preservative Free, Intramuscular 05/22/2015 ??? Influenza, Unspecified 06/20/2012, 05/15/2014, 05/22/2015, 05/08/2016, 05/07/2017, 05/03/2018, 06/17/2019 ??? Pfizer SARS-CoV-2 Vaccination 10/13/2020, 11/03/2020 ??? Pneumococcal Conjugate PCV 13 05/08/2016 ??? Pneumococcal Conjugate, Unspecified 06/18/2008 ??? ZOSTER Recombinant 02/02/2018, 05/03/2018 Primary Pharmacy/DME suppliers: [facility] [place] - [facility] [address] [facility] [address] PLEASE BRING IN ALL PILL BOTTLES TO EVERY OFFICE VISIT, THIS IS ESSENTIAL FOR ACCURATE REFILLS AND MAINTAINING AN ACCURATE MEDICATION LIST. PLEASE SIGN UP FOR [employer] so that you may have access to your labs and chart documentation IF YOU HAVE TROUBLE WITH THIS PROCESS CALL [phone] CHIEF COMPLAINT Follow-up (4 month) HISTORY OF PRESENT ILLNESS Lisa Conn returns today for tiredness, nausea, arch collapse interventions. ?? ORDERS FROM LAST VISIT WITH ME 03/19/2021 1. Free T4, TSH today and before three-month Vitamin-D level, PTH = osteopenia, tiredness CBC, iron profile, B12, MMA = tiredness Chemistry panel = nausea Stool for H pylori diagnosis = nausea, history of H pylori ? ORDERS FOR Lisa Conn TO ARRANGE 1. Medication changes Increase the Synthroid 0.5 mg, take 2 alternating with 1 tablet every other day ?? 2. For the arch collapse Arvind figure of 8 ankle support left ankle 3/ 8 in heel lift inside the left shoe ?? 3. For the brain fog DETAILS REGARDING THIS VISIT: iLsa reports feeling poorly : 1. Tiredness Continues to have this tiredness and really has not slept well for a lifetime. The tiredness is multifactorial due to caretaking responsibilities, sleep difficulties for a lifetime, physical problemswith her VSD and paroxysmal AFib that occasionally interfere with well-being, and her Alan's with hypothyroidism for which she is feeling better on higher dose medicine 2. Nausea 3. History of Helicobacter pylori infection previously treated x2 Condition responded to Pepcid, she was H pylori negative 4. Adjustment insomnia 5. Adjustment disorder with anxiety She may benefit from a p.r.n. mood stabilizer and is prescribed a few Prozac for once daily dosing. She will continue her mind fullness therapy and try this with stretching exercises before bed at night For the sleep disturbance we will review her sleep study from 10 years ago and determine if she hasa definable sleep disorder such as primary insomnia that may respond to specific sleep medications - FLUoxetine (PROzac) 10 mg tablet/capsule; Take 1 tablet/capsule (10 mg total) by mouth daily Dispense: 30 tablet/capsule; Refill: 1 6. 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 Her labs will be updated in June before follow-up visit - levothyroxine (SYNTHROID) 50 mcg tablet; Take 1-2 tablets (50-100 mcg total) by mouth nightly 1TABLET ON ODD # DAYS, 2 ON EVEN # DAYS Dispense: 180 tablet; Refill: 3 SOCIAL HISTORY Social History Tobacco Use ??? Smoking status: Never Smoker ??? Smokeless tobacco: Never Used Substance Use Topics ??? Alcohol use: No REVIEW OF SYSTEMS Review of Systems Constitutional: Positive for appetite change ( diminished appetite during increased stress). Negative for activity change, fatigue, fever and unexpected weight change. HENT: Negative for congestion, dental problem, hearing loss, postnasal drip, sinus pressure, sore throat and trouble swallowing. Eyes: Negative for pain, discharge, itching and visual disturbance. Respiratory: Negative for cough, chest tightness, shortness of breath and wheezing. Cardiovascular: Positive for palpitations (Intermittent lasting hours). Negative for chest pain. Gastrointestinal: Negative for [...] bruise/bleed easily. Psychiatric/Behavioral: Positive for decreased concentration ( caused by the trazodone she discontinued the medicine) and sleep disturbance ( lifetime of her problem to previously study 10 years). Negative for behavioral problems and dysphoric mood. The patient is nervous/anxious ( when her caretaking responsibilities are overwhelming). MEDICATIONS CHANGED / CLEANED UP THIS VISIT Medications Discontinued During This Encounter Medication Reason ??? traZODone (DESYREL) 50 mg tablet Therapy completed ??? levothyroxine (SYNTHROID) 50 mcg tablet Reorder MEDICATION LIST AT CONCLUSION OF THIS VISIT Current Outpatient Medications Ordered in [facility] Medication Sig Dispense Refill ??? apixaban (ELIQUIS) 2.5 mg tablet Take 2.5 mg by mouth 2 (two) times a day ??? cholecalciferol (VITAMIN D-3) 5,000 unit capsule Take 5,000 Units by mouth daily ??? ketorolac (ACULAR LS) 0.4 % drops Administer 1 drop into both eyes as needed (as needed) 5 mL 3 ??? levothyroxine (SYNTHROID) 50 mcg tablet Take 1-2 tablets (50-100 mcg total) by mouth nightly 1TABLET ON ODD # DAYS, 2 ON EVEN # DAYS 180 tablet 3 ??? magnesium oxide,aspartate,citr 400 mg magnesium capsule Take by mouth ??? melatonin 5 mg capsule take 1 tablet every night before bed 0 ??? multivitamin capsule Take 1 capsule by mouth daily ??? FLUoxetine (PROzac) 10 mg tablet/capsule Take 1 tablet/capsule (10 mg total) by mouth daily 30 tablet/capsule 1 No current [facility]-ordered facility-administered medications on file. ALLERGIES is allergic to clarithromycin, metronidazole, sulfa (sulfonamide antibiotics), and chloramphenicol. PHYSICAL EXAM body mass index is 19.64 kg/m??. Vitals: 04/19/21 1257 BP: 110/64 BP Location: Left arm Patient Position: Sitting Pulse: 68 Resp: 12 Temp: 36.4 ??C (97.5 ??F) TempSrc: Temporal SpO2: 97% Weight: 53.5 kg (118 lb) Physical Exam Vitals reviewed. Constitutional: General: She is not in acute distress. Appearance: Normal appearance. She is well-developed. Comments: Thin , anxious HENT: Head: Normocephalic. Right Ear: Tympanic membrane and external ear [...] rales. Abdominal: General: Bowel sounds are normal. Palpations: Abdomen is soft. There is no mass. Tenderness: There is no abdominal tenderness. Hernia: No hernia is present. Musculoskeletal: General: No tenderness or deformity. Normal range of motion. Cervical back: Normal range of motion. Right lower leg: No edema. Left lower [...] Thought content normal. Judgment: Judgment normal. Comments: Remains emotionally troubled, stressed and tired Follow-up examination was completed today and specifics [...] BLOOD WORK REVIEWED WITH Lisa Conn TODAY Lab on 03/22/2021 Component Date Value Ref [...] - 15.5 g/dL Final ??? Hct 03/19/2021 48.0* 35.6 - 45.5 % Final ??? Plt 03/19/2021 241 150 - 400 K/cumm Final ??? MPV 03/19/2021 11.2 9.1 - 12.3 fL Final ??? RBC 03/19/2021 4.87 3.90 - 5.20 M/cumm Final ??? MCV 03/19/2021 98.6* 81.3 - 96.4 fL Final ??? MCH 03/19/2021 31.4 27.1 - 33.3 pg Final ??? MCHC 03/19/2021 31.9* 32.3 - 35.7 g/dL Final ??? RDW CV 03/19/2021 14.2 11.1 - 14.9 % Final ??? RDW SD 03/19/2021 51.9* 35.7 - 48.1 fL Final ??? NRBC [...] - 45 Units/L Final ??? Ferritin 03/19/2021 189* 15 - 150 ng/mL Final ??? Neutrophil [...] ??? eGFR 03/19/2021 81 mL/min/1.73 m2 Final Lab on 02/18/2021 Component Date Value Ref Range Status ??? Color, ur 02/18/2021 Straw Yellow Final ??? Clarity, ur 02/18/2021 Clear Clear Final ??? Specific gravity, ur 02/18/2021 1.004* 1.010 - 1.025 Final ??? pH, urine 02/18/2021 6.0 Final ??? Protein, ur ql 02/18/2021 Negative Negative Final ??? Glucose, ur ql 02/18/2021 Negative Negative Final ??? Ketones, ur 02/18/2021 Negative Negative Final ??? Bilirubin, ur 02/18/2021 Negative Negative Final ??? Blood, ur 02/18/2021 2+* Negative Final ? ? Urobilinogen, ur 02/18/2021 <2.0 <2.0 mg/dL Final ??? Nitrite, ur 02/18/2021 Negative Negative Final ??? Leukocyte esterase, ur 02/18/2021 3+* Negative Final ??? UA reflex comment 02/18/2021 Reflex to microscopic UA will be performed. Final ??? WBC, ur 02/18/2021 21-50* 0 - 5 /HPF Final ??? RBC, ur 02/18/2021 3-5* 0 - 2 /HPF Final ??? Epithelial [...] mg/L Final ??? Thyroid Stimulating Hormone 12/16/2020 5.94* 0.30 - 4.20 mcIUnit/mL Final ??? Free T4 12/16/2020 0.87* 0.90 - 1.70 ng/dL Final ??? Sodium [...] with anxiety F43.22 ??? Adjustment insomnia F51.02 Nabila King M.D. 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 magnesium oxide,aspartate,c itr 400 mg magnesium capsule Take by mouth as needed 03/02/2022 cholecalciferol (VITAMIN D-3) 5,000 unit capsule Take 5,000 Units by mouth daily 11/24/2021 added in this encounter Care Teams Rack Worker Relationship Specialty Start Date End Date Nabila King MD [address] [place] [address] PCP - General Internal Medicine 12/16/20 Christine Kendall MD Surgeon Ophthalmology 12/13/20 Sita Magana MD [address] [place] [address] [address] [place] [address] Consulting Physician Internal Medicine 12/13/20 Regulo Pandey MD [address] [place] [address] [address] [place] [address] Referring Physician Cardiovascular Disease 12/16/20 Gigi Méndez MD [address] [place] [address] [facility] [address] [place] [address] Referring Physician Cardiology 02/18/21 documented as of this encounter
--- OUTSIDE RECORDS SUMMARY | 2024-08-09 17:49 | XMS_ITS | Encounter Summary ---
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 Gender Identity Not on file Sexual Orientation Not on file 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 Not on file documented as of this encounter Plan of Treatment Not on file documented as of this encounter Procedures Procedure Name Priority Date/Time Associated Diagnosis Comments SCAN - LABS 01/08/2021 documented in this encounter Results * SCAN - LABS (01/08/2021) Provider Scanning Final Result documented in this encounter Visit Diagnoses Not on filedocumented in this encounter Care Teams Editing Intern Relationship Specialty Start Date End Date Nabila King MD [address] [facility] [address] [place] [address] PCP - General Internal Medicine 12/16/20 Christine Kendall MD Surgeon Ophthalmology 12/13/20 Sita Magana MD [address] [place] [address] Consulting Physician Internal Medicine 12/13/20 Regulo Pandey MD [address] [place] [address] Referring Physician Cardiovascular Disease 12/16/20 documented as of this encounter
--- OUTSIDE RECORDS SUMMARY | 2024-08-09 17:49 | XMS_ITS | Encounter Summary ---
Author Organization [facility] Address [address] [facility] [address] [place] [address] Care Team Providers Care Paper Cap Machine Operator Name Role Phone Christine Kendall MD Unavailable [phone] Sita Magana MD Unavailable [phone] Nabila King MD Primary Care Provider + [phone] Regulo Pandey MD Unavailable Gigi Méndez MD Unavailable [phone] Encounter Details Date Type Department Care Team (Late st Contact Info) Description 05/21/2021 10:20 AM CDT [facility] [address] [place] [id number] 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 Social History [...] on file 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 Gender Identity Not on file Sexual Orientation Not on file 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 Not on file documented as of this encounter Plan of Treatment Not on file documented as of this encounter Visit Diagnoses Diagnosis 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 documented in this encounter Care Teams Paper Cap Machine Operator Relationship Specialty Start Date End Date Nabila King MD [address] [facility] [address] [place] [address] PCP - General Internal Medicine 12/16/20 Christine Kendall MD Surgeon Ophthalmology 12/13/20 Sita Magana MD [address] [place] [address] [address] [place] [address] Consulting Physician Internal Medicine 12/13/20 Regulo Pandey MD [address] [place] [address] [address] [place] [address] Referring Physician Cardiovascular Disease 12/16/20 Gigi Méndez MD [address] [place] [address] [address] [place] [address] Referring Physician Cardiology 02/18/21 documented as of this encounter
--- OUTSIDE RECORDS SUMMARY | 2024-08-09 17:49 | XMS_ITS | Encounter Summary ---
Author Organization [facility] Address [address] [facility] [address] [place] [address] Care Team Providers Care Physical Plant Manager Name Role Phone Christine Kendall MD Unavailable [phone] Sita Magana MD Unavailable [phone] Nabila King MD Primary Care Provider + [phone] Regulo Pandey MD Unavailable Gigi Méndez MD Unavailable [phone] Encounter Details Date Type Department Care Team (Late st Contact Info) Description 03/22/2021 11:30 AM CDT [facility] [address] [place] [id number] Social History Tobacco Use Types Packs/Day [...] on file 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 Gender Identity Not on file Sexual Orientation Not on file 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 Not on file documented as of this encounter Plan of Treatment Not on file documented as of this encounter Visit Diagnoses Not on filedocumented in this encounter Care Teams Physical Plant Manager Relationship Specialty Start Date End Date Nabila King MD [address] [place] [address] [address] [place] [address] PCP - General Internal Medicine 12/16/20 Christine Kendall MD Surgeon Ophthalmology 12/13/20 Sita Magana MD [address] [place] [address] [address] [place] [address] Consulting Physician Internal Medicine 12/13/20 Regulo Pandey MD [address] [place] [address] [address] [place] [address] Referring Physician Cardiovascular Disease 12/16/20 Gigi Méndez MD [address] [facility] [address] [place] [address] Referring Physician Cardiology 02/18/21 documented as of this encounter
--- OUTSIDE RECORDS SUMMARY | 2024-08-09 17:49 | XMS_ITS | Encounter Summary ---
Author Organization [facility] Healthcare Address [address] [place] [address] Care Team Providers Care Programming Coordinator Name Role Phone Christine Kendall MD Unavailable [phone] Sita Magana MD Unavailable [phone] Nabila King MD Primary Care Provider [phone] Regulo Pandey MD Unavailable Gigi Méndez MD Unavailable [phone] Encounter Details Date Type Department Care Team (Late st Contact Info) Description 02/18/2021 4:30 PM CDT Lab [address] [address] Urinary frequency Social History Tobacco Use Types Packs/Day Years [...] on file Legal 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 Gender Identity Not on file Sexual Orientation Not on file 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 Not on file documented as of this encounter Plan of Treatment Not on file documented as of this encounter Procedures Procedure Name Priority Date/Time Associated Diagnosis Comments URINALYSIS AND REFLEX TO MICROSCOPIC AND CULTURE Routine 02/18/2021 1:26 PM CDT Urinary frequency URINALYSIS, MICROSCOPIC ONLY Routine 02/18/2021 1:26 PM CDT Urinary frequency URINE CULTURE Routine 02/18/2021 1:26 PM CDT documented in this encounter Results * Urine culture Urine, clean voided (02/18/2021 1:26 PM CDT) Report Final Report: Less than 100,000 colonies/mL (clinically insignificant growth based on current clinical standards) [facility] Comment:Testing performed by : [facility], [address] [place]., [address] Organism (CLINICALLY INSIGNIFICANT GROWTH [facility] Urine, clean voided 02/18/2021 1:26 PM CDT 02/18/2021 7:40 PM CDT Narrative [facility] - 02/19/2021 8:23 PM CDT Urine culture reflexed based upon urinalysis results. Testing performed by [facility] Microbiology Laboratory ([phone]) Elizabeth Daniels NP LAB MICROBIOLOGY - GENERAL ORDERABLES Final Result Performing Organization Address City/[facility] Co de Phone Number [facility] [address] [place] [address] * (ABNORMAL) Urinalysis, microscopic only (02/18/2021 1:26 PM CDT) WBC, ur 21-50(A) 0 - 5 /HPF [facility] RBC, ur 3-5(A) 0 - 2 /HPF [facility] Epithelial cells, squamous, ur 1-5 0 - 5 /HPF [facility] Culture Reflex Comment Reflex to urine culture will be performed. [facility] Urine, clean voided 02/18/2021 1:26 PM CDT 02/18/2021 4:42 PM CDT Elizabeth Daniels NP LAB URINE ORDERABL ES Final Result Performing Organization Address [facility]/ZIP Co de Phone Number [facility]ANK[facility] MOT[facility] [address] [place] [address] * (ABNORMAL) Urinalysis reflex to microscopic and culture Urine, clean voided (02/18/2021 1:26 PM CDT) Color, ur Straw Yellow [facility] Clarity, ur Clear Clear [facility] Specific gravity, ur 1.004(L) 1.010 - 1.025 [facility] pH, urine 6.0 [facility] Protein, ur ql Negative Negative [facility] Glucose, ur ql Negative Negative [facility] Ketones, ur Negative Negative [facility] Bilirubin, ur Negative Negative [facility] Blood, ur 2+(A) Negative [facility] Urobilinogen, ur <2.0 <2.0 mg/dL [facility] Nitrite, ur Negative Negative [facility] Leukocyte esterase, ur 3+(A) Negative [facility] UA reflex comment Reflex to microscopic UA will be performed. [facility] Urine, clean voided 02/18/2021 1:26 PM CDT 02/18/2021 4:42 PM CDT Narrative [facility] - 02/18/2021 5:02 PM CDT ?? Urine pH is affected by diet, medications, systemic acid-base disturbances, and renal tubular function. ??pH may affect urinary stone formation. ??For example, urine pH below 6.0 may help reduce the tendency for calcium phosphate stones and pH greater than 6.0 may reduce the tendency for uric acid stone formation. Source: [employer]. Last revised 08-31-2017 Elizabeth Daniels RADIOLOGICAL TECHNICIAN LAB MICROBIOLOGY - GENERAL ORDERABLES Final Result [facility] MOTLEY [address] [place] [address] documented in this encounter Visit Diagnoses Diagnosis Urinary frequency documented in this encounter Care Teams Programming Coordinator Relationship Specialty Start Date End Date Nabila King MD [address] [place] [address] [address] [place] [address] PCP - General Internal Medicine 12/16/20 Christine Kendall MD Surgeon Ophthalmology 12/13/20 Sita Magana MD [address] [place] [address] [address] [place] [address] Consulting Physician Internal Medicine 12/13/20 Regulo Pandey MD [address] [place] [address] [address] [place] [address] Referring Physician Cardiovascular Disease 12/16/20 Gigi Méndez MD [address] [place] [address] [address] [place] [address] Referring Physician Cardiology 02/18/21 documented as of this encounter
--- OUTSIDE RECORDS SUMMARY | 2024-08-09 17:49 | XMS_ITS | Encounter Summary ---
Author Organization [facility] Healthcare Address [address] [place] [address] Care Team Providers Care Marketing Senior Recruiter Name Role Phone Christine Kendall MD Unavailable [phone] Sita Magana MD Unavailable [phone] Nabila King MD Primary Care Provider [phone] Regulo Pandey MD Unavailable Gigi Méndez MD Unavailable [phone] Encounter Details Date Type Department Care Team (Late st Contact Info) Description 05/21/2021 12:50 PM CDT Lab [facility] [address] [place] [address] Dizziness Social History Tobacco Use Types Packs/Day [...] on file 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 Gender Identity Not on file Sexual Orientation Not on file 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 Not on file documented as of this encounter Plan of Treatment Not on file documented as of this encounter Procedures Procedure Name Priority Date/Time Associated Diagnosis Comments THYROID FUNCTION CASCADE Routine 05/21/2021 10:17 AM CDT Dizziness URINALYSIS AND REFLEX TO MICROSCOPIC AND CULTURE Routine 05/21/2021 10:17 AM CDT Dizziness T4, FREE Routine 05/21/2021 10:17 AM CDT Dizziness documented in this encounter Results * T4, free (05/21/2021 10:17 AM CDT) Free T4 1.59 0.90 - 1.70 ng/dL [facility] Blood 05/21/2021 10:1 7 AM CDT 05/21/2021 1:01 PM CDT Elizabeth Daniels NP LAB BLOOD ORDERABL ES Final Result Performing Organization Address [facility] Co de Phone Number FRANKIE [address] [facility] [place] [address] * (ABNORMAL) TSH reflex to free T4 (05/21/2021 10:17 AM CDT) Pathologist [facility] TSH 0.11(L) 0.30 - 4.20 mcIUnit/mL [facility] Blood 05/21/2021 10:1 7 AM CDT 05/21/2021 12:56 PM CDT Elizabeth Daniels NP LAB BLOOD ORDERABL ES Final Result Performing Organization Address [facility] Co de Phone Number [facility] [address] [facility] [place] [address] * Urinalysis reflex to microscopic and culture Urine, clean voided (05/21/2021 10:17 AM CDT) Color, ur Straw Yellow [facility] Clarity, ur Clear Clear [facility] Specific gravity, ur 1.008 1.003 - 1.030 [facility] pH, urine 6.0 [facility] Protein, ur ql Negative Negative [facility] Glucose, ur ql Negative Negative [facility] Ketones, ur Negative Negative [facility] Bilirubin, ur Negative Negative [facility] Blood, ur Negative Negative [facility] Urobilinogen, ur <2.0 <2.0 mg/dL [facility] Nitrite, ur Negative Negative [facility] Leukocyte esterase, ur Negative Negative [facility] UA reflex comment Reflex conditions for microscopic UA and culture not met. [facility] Urine, clean voided 05/21/2021 10:17 AM CDT 05/21/2021 12:55 PM CDT Narrative [facility] - 05/21/2021 1:06 PM CDT ?? Urine pH is affected by diet, medications, systemic acid-base disturbances, and renal tubular function. ??pH may affect urinary stone formation. ??For example, urine pH below 6.0 may help reduce the tendency for calcium phosphate stones and pH greater than 6.0 may reduce the tendency for uric acid stone formation. Source: [employer]. Last revised 08-31-2017 Elizabeth Daniels NP LAB MICROBIOLOGY - GENERAL ORDERABLES Final Result Performing Organization Address City/State/[facility] Co de Phone Number [facility] [address] Department [place] [address] documented in this encounter Visit Diagnoses Diagnosis Dizziness Dizziness and giddiness documented in this encounter Care Teams Marketing Senior Recruiter Relationship Specialty Start Date End Date Nabila King MD [address] [place] [address] [address] [place] [address] PCP - General Internal Medicine 12/16/20 Christine Kendall MD Surgeon Ophthalmology 12/13/20 Sita Magana MD [address] [place] [address] Consulting Physician Internal Medicine 12/13/20 Regulo Pandey MD [address] [facility] [address] [place] [address] Referring Physician Cardiovascular Disease 12/16/20 Gigi Méndez MD [address] [facility] [address] [address] Referring Physician Cardiology 02/18/21 documented as of this encounter
--- OUTSIDE RECORDS SUMMARY | 2024-08-09 17:49 | XMS_ITS | Encounter Summary ---
Author Organization [facility] Address [address] [place] [address] Care Team Providers Care Music Professor Name Role Phone Christine Kendall MD Unavailable [phone] Sita Magana MD Unavailable [phone] Nabila King MD Primary Care Provider + [phone] Regulo Pandey MD Unavailable Gigi Méndez MD Unavailable [phone] Reason for Visit * Reason Comments Follow-up 3 MONTH Encounter Details Date Type Department Care Team (Late st Contact Info) Description 03/19/2021 10:20 AM CDT Office Visit [facility] [address] [place] [id number] Nablia King MD [address] [facility] [address] Tiredness (Primary Dx); Adjustment insomnia; Hypothyroidism, adult; Nausea; Arthritis of knee; Disparity of leg length, acquired; Pes planus of both feet; Neuroforaminal stenosis of lumbar spine; History of osteoporosis; History of Helicobacter pylori infection; Disorder of bone, unspecified ; Paroxysmal A-fib (CMS/HCC) ([facility]) Social History Tobacco Use Types Packs/Day Years [...] on file Legal 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 Gender Identity Not on file Sexual Orientation Not on file 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 Not on file documented as of this encounter Last Filed Vital Signs Vital Sign Reading Time Taken Comments Blood Pressure 144/76 03/19/2021 10:59 AM CDT Pulse 51 03/19/2021 10:59 AM CDT Temperature 36.3 ??C (97.3 ??F) 03/19/2021 10:59 AM C DT Respiratory Rate 12 03/19/2021 10:59 AM CDT Oxygen Saturation 97% 03/19/2021 10:59 AM CDT Inhaled Oxygen Concentration - - Weight 53.5 kg (118 lb) 03/19/2021 10:59 AM CDT Height - - Body Mass Index 19.64 12/16/2020 2:38 PM CDT documented in this encounter Patient Instructions * Patient Instructions* Nabila King MD - 03/19/2021 10:20 AM CDT ORDERS FOR AMS STAFF TO ARRANGE 1. Free T4, TSH today and before three-month Vitamin-D level, PTH = osteopenia, tiredness CBC, iron profile, B12, MMA = tiredness Chemistry panel = nausea Stool for H pylori diagnosis = nausea, history of H pylori ORDERS FOR Lisa Conn TO ARRANGE 1. Medication changes Increase the Synthroid 0.5 mg, take 2 alternating with 1 tablet every other day 2. For the arch collapse Arvind figure of 8 ankle support left ankle 10/26 in heel lift inside the left shoe 3. For the brain fog Patient Care Team: Nabila King MD as PCP - General (Internal Medicine) Christine Kendall MD as Surgeon (Ophthalmology) Sita Magana MD as Consulting Physician (Internal Medicine) Regulo Pandey MD as Referring Physician (Cardiovascular Disease) Gigi Méndez MD as Referring Physician (Cardiology) Return in about 4 weeks (around 04/16/2021) for Follow-up on tiredness, nausea, arch collapse interventions. No orders of the defined types were placed in this encounter. A brief review of all your problems, medications, and orders from today ICD-9-CM ICD-10-CM 1. Tiredness 780.79 R53.83 2. Adjustment insomnia 307.41 F51.02 traZODone (DESYREL) 50 mg tablet 3. Hypothyroidism, adult 244.9 E03.9 levothyroxine (SYNTHROID) 50 mcg tablet 4. Nausea 787.02 R11.0 5. Arthritis of knee 716.96 M17.10 6. Disparity of leg length, acquired 736.81 M21.70 Left leg 1 cm shorter than right due to the knee arthritis genu valgus deformity. She is going to try 3 8 in lift in the left shoe along with ankle support 7. Pes planus of both feet 734 M21.41 M21.42 8. Neuroforaminal stenosis of lumbar spine 724.02 M99.73 For your records I have provided this [...] ZOSTER Recombinant 02/02/2018, 05/03/2018 Primary Pharmacy/DME suppliers: [facility] - [place], [place] - [address] [facility] [address] [facility] [address] PLEASE BRING IN ALL PILL BOTTLES TO EVERY OFFICE VISIT, THIS IS ESSENTIAL FOR ACCURATE REFILLS AND MAINTAINING AN ACCURATE MEDICATION LIST. PLEASE SIGN UP FOR MyCHART so that you may have access to your labs and chart documentation IF YOU HAVE TROUBLE WITH THIS PROCESS CALL [phone] documented in this encounter Ordered Prescriptions Prescription Sig Dispense Quantity Refills Last Filled Start Date End Date traZODone (DESYREL) 50 mg tabletIndications: Adjustment insomnia Take 0.25-1 tablets (12.5-50 mg total) by mouth nightly 15 tablet 3 03/19/2021 1 levothyroxine (SYNTHROID) 50 mcg tabletIndications: Hypothyroidism, adult Take 1-2 tablets (50-100 mcg total) by mouth nightly 1TABLET ON ODD # DAYS, 2 ON EVEN # DAYS 180 tablet 3 03/19/2021 1 documented in this encounter Progress Notes * Nabila King MD - 03/19/2021 10:20 AM CDT ASSESSMENT AND PLAN Patient Instructions ORDERS FOR AMS STAFF TO ARRANGE 1. Free T4, TSH today and before three-month Vitamin-D level, PTH = osteopenia, tiredness CBC, iron profile, B12, MMA = tiredness Chemistry panel = nausea Stool for H pylori diagnosis = nausea, history of H pylori ORDERS FOR Lisa Conn TO ARRANGE 1. Medication changes Increase the Synthroid 0.5 mg, take 2 alternating with 1 tablet every other day 2. For the arch collapse Arvind figure of 8 ankle support left ankle 3/ 8 in heel lift inside the left shoe 3. For the brain fog Patient Care Team: Nabila King MD as PCP - General (Internal Medicine) Christine Kendall MD as Surgeon (Ophthalmology) Sita Magana MD as Consulting Physician (Internal Medicine) Regulo Pandey MD as Referring Physician (Cardiovascular Disease) Gigi Méndez MD as Referring Physician (Cardiology) Return in about 4 weeks (around 04/16/2021) for Follow-up on tiredness, nausea, arch collapse interventions. No orders of the defined types were placed in this encounter. A brief review of all your problems, medications, and orders from today ICD-9-CM ICD-10-CM 1. Tiredness 780.79 R53.83 2. Adjustment insomnia 307.41 F51.02 traZODone (DESYREL) 50 mg tablet 3. Hypothyroidism, adult 244.9 E03.9 levothyroxine (SYNTHROID) 50 mcg tablet 4. Nausea 787.02 R11.0 5. Arthritis of knee 716.96 M17.10 6. Disparity of leg length, acquired 736.81 M21.70 Left leg 1 cm shorter than right due to the knee arthritis genu valgus deformity. She is going to try 3 8 in lift in the left shoe along with ankle support 7. Pes planus of both feet 734 M21.41 M21.42 8. Neuroforaminal stenosis of lumbar spine 724.02 M99.73 For your records I have provided this [...] ZOSTER Recombinant 02/02/2018, 05/03/2018 Primary Pharmacy/DME suppliers: [facility] [place], [place] - [address] [email or web address] [facility] [address] [facility] [address] PLEASE BRING IN ALL PILL BOTTLES TO EVERY OFFICE VISIT, THIS IS ESSENTIAL FOR ACCURATE REFILLS AND MAINTAINING AN ACCURATE MEDICATION LIST. PLEASE SIGN UP FOR [employer] Pharm[employer]T so that you may have access to your labs and chart documentation IF YOU HAVE TROUBLE WITH THIS PROCESS CALL [phone] CHIEF COMPLAINT Follow-up (3 MONTH) HISTORY OF PRESENT ILLNESS Lisa Conn returns today for her 3 month follow-up to review Chronic medical problems and discuss her concerns, Review new orders, and Update Medication Refill Management. Important details of this conversation, exam, and plan for care are summarized at the top and bottom of this comprehensive note for the readers quick access to the information. ORDERS FROM LAST VISIT WITH ME for 04/09/2021 1. 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 Copy all of her paper records and put on my desk. ORDERS FOR Lisa Conn TO ARRANGE 1. Medication changes Stay off of Ativan Trial trazodone 50 mg 1/4 to 1/2 tablet to 1 tablet nightly for sleep and nerves 2. Visit with devops engineer in review the 2018 echocardiogram with the valvular problems and especially the VSD Review the palpitations symptoms, I would recommend 30 day [facility] DETAILS REGARDING THIS VISIT: Lisa reports feeling poorly : 1. 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 She is trying to hold off on pacemaker. Exercise willbe resume. Diet is excellent. Thyroid medication will be increased working to laboratory testing results. 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 Adjustment insomnia Sleeping poorly for her entire life, never tried the trazodone but agrees to go on 12.5 mg nightly to see if we can give her sleeping and hopefully feeling rested upon awakening in the morning. - traZODone (DESYREL) 50 mg tablet; Take 0.25-1 tablets (12.5-50 mg total) by mouth nightly Dispense: 15 tablet; Refill: 3 3. Hypothyroidism, adult Undertreated as of last visit, started Synthroid 50. Were going to update the thyroid function and increase Synthroid to equivalent of 75 mcg - levothyroxine (SYNTHROID) 50 mcg tablet; Take 1-2 tablets (50-100 mcg total) by mouth nightly 1TABLET ON ODD # DAYS, 2 ON EVEN # DAYS Dispense: 180 tablet; Refill: 3 4. Nausea, history of H pylori treatment x2 Unclear why she is having nausea, she may have a recurrence of her H pylori infection and she agrees to stool testing 5. Arthritis of knee 6. 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 She is also encouraged to trial back into water exercise to help with her tiredness SOCIAL HISTORY Social History Tobacco Use ??? Smoking status: Never Smoker ??? Smokeless tobacco: Never Used Substance Use Topics ??? Alcohol use: No REVIEW OF SYSTEMS Review of Systems Constitutional: Positive for activity change (Not exercising regularly) and fatigue. Negative for appetite change, fever and unexpected weight change. HENT: Negative for congestion, dental problem, hearing loss, postnasal drip, sinus pressure, sore throat and trouble swallowing. Eyes: Negative for pain, discharge, itching and visual disturbance. Respiratory: Negative for cough, chest tightness, shortness of breath and wheezing. Cardiovascular: Negative for chest pain and palpitations ( palpitations have resolved since the ablation). Gastrointestinal: Negative for abdominal distention, abdominal pain, [...] bruise/bleed easily. Psychiatric/Behavioral: Positive for sleep disturbance ( lifelong history of this problem, she can not turn her brain off). Negative for behavioral problems and dysphoric mood. The patient is not nervous/anxious. MEDICATIONS CHANGED / CLEANED UP THIS VISIT Medications Discontinued During This Encounter Medication Reason ??? apixaban (ELIQUIS) 5 mg tablet Dose adjustment ??? traZODone (DESYREL) 50 mg tablet ??? levothyroxine (SYNTHROID) 50 mcg tablet Reorder MEDICATION LIST AT CONCLUSION OF THIS VISIT Current Outpatient Medications Ordered in [facility] Medication Sig Dispense Refill ??? apixaban (ELIQUIS) [...] EVEN # DAYS 180 tablet 3 ??? melatonin 5 mg capsule take 1 tablet every night before bed 0 ??? multivitamin capsule Take 1 capsule by mouth daily ??? traZODone (DESYREL) 50 mg tablet Take 0.25-1 tablets (12.5-50 mg total) by mouth nightly 15 tablet 3 No current [facility]-ordered facility-administered medications on file. ALLERGIES is allergic to clarithromycin, metronidazole, sulfa (sulfonamide antibiotics), and chloramphenicol. PHYSICAL EXAM body mass index is 19.64 kg/m??. Vitals: 03/19/21 1059 BP: 144/76 BP Location: Left arm Patient Position: Sitting Pulse: 51 Resp: 12 Temp: 36.3 ??C (97.3 ??F) TempSrc: Temporal SpO2: 97% Weight: 53.5 kg (118 lb) Physical Exam Vitals reviewed. Constitutional: General: She is not in acute distress. Appearance: She is well-developed and normal weight. Comments: She appears fatigued and also complains of tiredness HENT: Head: Normocephalic. Right Ear: Tympanic membrane [...] No hernia is present. Musculoskeletal: General: Deformity (Arthritic deformity collapse lateral left knee causing 1 cm short left leg) present. No tenderness. Cervical back: Neck supple. No tenderness. Right lower leg: No edema. Left lower [...] muscle tone. Coordination: Coordination normal. Gait: Gait abnormal ( arch collapse left foot much worse than right during walking). Deep Tendon Reflexes: Reflexes normal. Psychiatric: Mood [...] REVIEWED WITH Lisa Conn TODAY Lab on 02/18/2021 Component Date Value Ref [...] Direct 12/16/2020 122 <=129 mg/dL Final ??? GFR 12/16/2020 76 mL/min/1.73 m2 Final Imaging Exam [...] Acute on chronic diastolic heart failure (CMS/HCC) I50.33 ??? Ventricular septal defect (VSD) Q21.0 ??? 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 Palpitation R00.2 ??? History of hematuria Z87.448 ??? ASVD (arteriosclerotic vascular disease) I70.90 ??? History of adenomatous polyp of colon Z86.010 ??? Neuroforaminal stenosis of lumbar spine M99.73 ??? Urinary frequency R35.0 ??? Other atopic dermatitis L20.89 ??? Hospital discharge follow-up Z09 ??? SVT (supraventricular tachycardia) (CMS/HCC) I47.1 ??? Paroxysmal A-fib (CMS/HCC) I48.0 ??? History of Helicobacter pylori infection Z86.19 Nabila King M.D. documented in this encounter Miscellaneous Notes * Result Encounter Note - aNbila King MD - 06/21/2021 1:09 PM CDT Encouraged her to decrease her Synthroid from 1 tablet alternating with 2 tablets every other day just to 1 tablet daily. This may help decrease the tendency for her palpitations. She is at upper endof treatment range with her thyroid at this time. Recheck free T4 TSH in 3 months diagnosis = hypothyroid adult * Addendum Note - Myke Dumont - 03/19/2021 10:20 AM CDTAddended by: MYKE DUMONT on: 03/19/2021 12:42 PM Modules accepted: Orders documented in this encounter Plan of Treatment Not on file documented as of this encounter Procedures Procedure Name Priority Date/Time Associated Diagnosis Comments TSH Routine 06/18/2021 8:54 AM CDT Hypothyroidism, adult T4, FREE Routine 06/18/2021 8:54 AM CDT Hypothyroidism, adult documented in this encounter Results * (ABNORMAL) TSH (06/18/2021 8:54 AM CDT) TSH 0.227(L) 0.450 - 4.500 uIU/mL [facility] - 01 Blood specimen (specimen) 06/18/2021 8:54 AM CDT 06/18/2021 Narrative [facility] - 06/19/2021 7:36 AM CDT Performed at: ??01 - [facility] [address] ??[id number] Ceramic Designer: Darek Farrell PhD, Phone: ??[phone] Nabila King MD LAB BLOOD ORDERABLES Final Result Performing Organization Address City/[facility]/ZIP Co de Phone Number [facility] - * T4, free (06/18/2021 8:54 AM CDT) T4,Free(Direct) 1.70 0.82 - 1.77 ng/dL [facility] - 01 Blood specimen (specimen) 06/18/2021 8:54 AM CDT 06/18/2021 Narrative [facility] - 06/19/2021 7:36 AM CDT Performed at: ??[address] ??[id number] Ceramic Designer: Darek Farrell PhD, Phone: ??[phone] Nabila King MD LAB BLOOD ORDERABLES Final Result Performing Organization Address [facility] de Phone Number [facility] - * H. pylori antigen, stool Stool (03/22/2021 10:30 AM CDT) Pathologist [facility] H. pylori Ag, stool Negative Negative [facility] Comment: Interpretative Data Testing performed at the [facility] using the Curian HpSA lateral flow immunoassay that detects Helicobacter pylori antigen in feces. This test is FDA cleared and its performance characteristics have been verified by the performing laboratory. ??False negative H. pylori antigen results may occur in patients on antimicrobials, proton pump inhibitors, or bismuth preparations; if clinically indicated, testing should be repeated on a new specimen two weeks after discontinuing these treatments. Interpretative data last revised August 2020. Testing performed by: [facility], [address] [facility] [place]., [address] Stool 03/22/2021 10:3 0 AM CDT 03/22/2021 7:35 PM CDT Nabila King MD LAB MICROBIOLOGY - GENERAL ORDERABLES Final Result [facility] [address] [place] [address] * (ABNORMAL) Ferritin (03/19/2021 12:55 PM CDT) Ferritin 189(H) 15 - 150 ng/mL [facility] Blood specimen (specimen) 03/19/2021 12:55 PM CDT 03/19/2021 4:54 PM CDT Nabila King MD LAB BLOOD ORDERABLES Final Result Performing Organization Address City/[facility] Co de Phone Number [facility] MOTLEY [address] [place] [address] * Comprehensive metabolic panel (03/19/2021 12:55 PM CDT) Sodium 139 135 - 145 mmol/L [facility] Potassium, pl 4.4 3.3 - 4.9 mmol/L [facility] Chloride 101 97 - 110 mmol/L [facility] CO2 27 22 - 32 mmol/L [facility] Anion gap 11 2 - 15 mmol/L [facility] BUN 11 8 - 25 mg/dL [facility] Creatinine 0.67 0.60 - 1.10 mg/dL [facility] Glucose 91 70 - 199 mg/dL [facility] Comment: [...] interpretive data was last revised 2017. Calcium 9.9 8.5 - 10.3 mg/dL [facility] Bilirubin, total 0.7 0.1 - 1.2 mg/dL [facility] Protein, pl 7.4 6.5 - 8.5 g/dL [facility] Albumin 4.8 3.5 - 5.0 g/dL [facility] Alk phos 61 40 - 130 Units/L [facility] ALT 23 7 - 45 Units/L [facility] AST 27 10 - 45 Units/L [facility] Blood specimen (specimen) 03/19/2021 12:55 PM CDT 03/19/2021 4:54 PM CDT Nabila King MD LAB BLOOD ORDERABLES Final Result Performing Organization Address [facility] Co de Phone Number [facility] [address] [place] [address] * Methylmalonic acid, serum (03/19/2021 12:55 PM CDT) MMA 0.12 <=0.40 nmol/mL [facility] Comment: ADDITIONAL INFORMATION This test was developed and its performance characteristics determined by [facility] in a manner consistent with CLIA requirements. This test has not been cleared or approved by the U.S. Food and Drug Administration. Test Performed by: [facility] [address] [address] Ceramic Designer: Cam Farrell M.D. Ph.D.; CLIA# [id number] Blood specimen (specimen) 03/19/2021 12:55 PM CDT 03/19/2021 4:55 PM CDT us Nabila King MD LAB BLOOD ORDERABLES Final Result Performing Organization Address [facility] Co de Phone Number [facility] MOTLEY [address] [facility] [place] [address] * Vitamin B12 (03/19/2021 12:55 PM CDT) Vitamin B12 946 230 - 1,250 pg/mL [facility] Blood specimen (specimen) 03/19/2021 12:55 PM CDT 03/19/2021 4:54 PM CDT us Nabila King MD LAB BLOOD ORDERABLES Final Result Performing Organization Address City/[facility]/ZIP Co de Phone Number [facility] MOT[facility] [address] [place] [address] * Iron profile w/ IBC (03/19/2021 12:55 PM CDT) [facility] Iron 114 35 - 145 mcg/dl [facility] TIBC 307 250 - 400 mcg/dL [facility] Transferrin saturation 37 20 - 50 % [facility] Blood specimen (specimen) 03/19/2021 12:55 PM CDT 03/19/2021 4:54 PM CDT us Nabila King MD LAB BLOOD ORDERABLES Final Result Performing Organization Address [facility] Co de Phone Number FRANKIE MOTLEY [address] [place] [address] * (ABNORMAL) CBC with auto differential (03/19/2021 12:55 PM CDT) [facility] WBC 5.6 3.8 - 9.9 K/cumm [facility] Hgb 15.3 11.9 - 15.5 g/dL [facility] Hct 48.0(H) 35.6 - 45.5 % [facility] Plt 241 150 - 400 K/cumm [facility] MPV 11.2 9.1 - 12.3 fL [facility] RBC 4.87 3.90 - 5.20 M/cumm [facility] CH MCV 98.6(H) 81.3 - 96.4 fL [facility] MCH 31.4 27.1 - 33.3 pg [facility] MCHC 31.9(L) 32.3 - 35.7 g/dL [facility] RDW CV 14.2 11.1 - 14.9 % [facility] RDW SD 51.9(H) 35.7 - 48.1 fL [facility] NRBC abs 0.00 0.00 - 0.01 K/cumm [facility] Blood specimen (specimen) 03/19/2021 12:55 PM CDT 03/19/2021 4:54 PM CDT us Nabila King MD LAB BLOOD ORDERABLES Final Result Performing Organization Address [facility] de Phone Number FRANKIE [address] [facility] [place] [address] * PTH (03/19/2021 12:55 PM CDT) PTH 52 15 - 65 pg/mL [facility] Blood specimen (specimen) 03/19/2021 12:55 PM CDT 03/19/2021 4:54 PM CDT us Nabila King MD LAB BLOOD ORDERABLES Final Result Performing Organization Address [facility] de Phone Number [facility] [address] [facility] [place] [address] * Vitamin D 25 hydroxy (03/19/2021 12:55 PM CDT) Vitamin D 25-OH 59 30 - 80 ng/mL [facility] Blood specimen (specimen) 03/19/2021 12:55 PM CDT 03/19/2021 4:54 PM CDT us Nabila King MD LAB BLOOD ORDERABLES Final Result Performing Organization Address [facility] Co de Phone Number [facility] [address] [facility] [place] [address] * TSH (03/19/2021 12:55 PM CDT) Thyroid Stimulating Hormone 1.46 0.30 - 4.20 mcIUnit/mL [facility] Blood specimen (specimen) 03/19/2021 12:55 PM CDT 03/19/2021 4:54 PM CDT us Nabila King MD LAB BLOOD ORDERABLES Final Result Performing Organization Address City/[facility]/ZIP Co de Phone Number [facility]IE MOTLEY [address] [facility] [place] [address] * T4, free (03/19/2021 12:55 PM CDT) Free T4 1.31 0.90 - 1.70 ng/dL [facility] Blood specimen (specimen) 03/19/2021 12:55 PM CDT 03/19/2021 4:54 PM CDT us Nabila King MD LAB BLOOD ORDERABLES Final Result Performing Organization Address [facility] Co de Phone Number [facility] MOTLEY [address] [facility] [place] [address] documented in this encounter Visit Diagnoses Diagnosis Tiredness- Primary Other malaise and fatigue Adjustment insomnia Insomnia, unspecified Hypothyroidism, adult Other specified acquired hypothyroidism Nausea Nausea alone Arthritis of knee Unspecified arthropathy, lower leg Disparity of leg length, acquired Pes planus of both feet Neuroforaminal stenosis of lumbar spine History of osteoporosis Personal history of other musculoskeletal disorders History of Helicobacter pylori infection Disorder of bone, unspecified Paroxysmal A-fib (CMS/HCC) (HCC) documented in this encounter Discontinued Medications Medication Sig Discontinue Reason Start Date End Da te apixaban (ELIQUIS) 5 mg tablet Take 5 mg by mouth 2 (two) times a day Dose adjustment 03/19/2021 traZODone (DESYREL) 50 mg tabletIndications:Adjus tment insomnia Take 0.25 tablets (12.5 mg total) by mouth nightly 12/16/2020 03/19/2021 levothyroxine (SYNTHROID) 50 mcg tabletIndications:Hypot hyroidism, adult Take 1 tablet (50 mcg total) by mouth procedure writer before breakfast Reorder 12/16/2020 03/19/2021 documented as of this encounter Historical Medications * This list may reflect changes made after this encounter. apixaban (ELIQUIS) 2.5 mg tablet Take 2.5 mg by mouth 2 (two) times a day 03/16/2021 11/24/2021 added in this encounter Care Teams Music Professor Relationship Specialty Start Date End Date Nabila King MD [address] [place] [address] PCP - General Internal Medicine 12/16/20 Christine Kendall MD Surgeon Ophthalmology 12/13/20 Sita Magana MD [address] [place] [address] Consulting Physician Internal Medicine 12/13/20 Regulo Pandey MD [address] [place] [address] Referring Physician Cardiovascular Disease 12/16/20 Gigi Méndez MD [address] [place] [address] Referring Physician Cardiology 02/18/21 documented as of this encounter
--- OUTSIDE RECORDS SUMMARY | 2024-08-09 17:49 | XMS_ITS | Encounter Summary ---
Author Organization [facility] Address [address] [place] [address] Care Team Providers Care Mortgage Banker Name Role Phone Christine Kendall MD Unavailable [phone] Sita Magana MD Unavailable [phone] Nabila King MD Primary Care Provider + [phone] Regulo Pandey MD Unavailable Gigi Méndez MD Unavailable [phone] Encounter Details Date Type Department Care Team (Late st Contact Info) Description 05/21/2021 Telephone [facility] [address] [place] [address] Elizabeth aDniels, WHARF TALLY CLERK [address] [place] [address] Social History Tobacco Use Types [...] on file Legal Sex Female 8:14 PM CROSSING TENDER Gender Identity Not on file Sexual Orientation Not on file 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 @ [facility], will add a TSHwith reflex to that order. Lab order is in mail to patient. Update to JASON Johnson. * Telephone Encounter - Elizabeth Daniels NP - 06/04/2021 9:08 AM CDT TSH with reflex T4 * Telephone Encounter - Hemal Redman MA - 06/04/2021 8:48 AM CDT To JASON Johnson: would you like a TSH in 6 week or TSH reflex to free T4? * Telephone Encounter - Elizabeth Daniels NP - 05/21/2021 4:33 PM CDT Patient called informed her that her TSH was low at 0.11, and that she needs to adjust synthroid she will begin taking 50mcg x 2 nights, then 100mcg x1 night, then back to 50mcg. 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 documented in this encounter Orders Lab Orders Without Results Count Last Ordered D ate First Ordered Date TSH REFLEX TO FREE T4 1 06/10/2021 documented in this encounter Care Teams Mortgage Banker Relationship Specialty Start Date End Date Nabila King MD [address] [place] [address] PCP - General Internal Medicine 12/16/20 Christine Kendall MD Surgeon Ophthalmology 12/13/20 Sita Magana MD [address] [place] [address] Consulting Physician Internal Medicine 12/13/20 Regulo Pandey MD [address] [place] [address] [address] [place] [address] Referring Physician Cardiovascular Disease 12/16/20 Gigi Méndez MD [address] [place] [address] Referring Physician Cardiology 02/18/21 documented as of this encounter
--- OUTSIDE RECORDS SUMMARY | 2024-08-09 17:49 | XMS_ITS | Encounter Summary ---
Author Organization [facility] Address [address] [place] [address] Care Team Providers Care Social Media Marketing Specialist Name Role Phone Christine Kendall MD Unavailable [phone] Sita Magana MD Unavailable [phone] Nabila King MD Primary Care Provider + [phone] Regulo Pandey MD Unavailable Gigi Méndez MD Unavailable [phone] Encounter Details Date Type Department Care Team (Late st Contact Info) Description 02/23/2021 Telephone [facility] [address] [place] [address] Nabila King MD [address] [place] [address] Social History Tobacco Use Types Packs/Day Years [...] on file Legal Sex Female 8:14 PM PARTY SUPPLY SPECIALIST Gender Identity Not on file Sexual Orientation Not on file 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 * Telephone Encounter - Elizabeth Daniels NP - 02/23/2021 2:18 PM CDT Her urine culture did not show any significant growth. If she should have recurrent symptoms pleasecall and we will evaluate further * Telephone Encounter - Marietta Acosta MA - 02/23/2021 1:49 PM CDT Spoke with patient states she is feeling better, and she did finish her antibiotic, please advise regarding ua results. * Telephone Encounter - Gracy Montanez - 02/23/2021 12:24 PM CDT Pt would like the results of her urine culture done on 02/18/21. [facility]#[id number] patient documented in this encounter Plan of Treatment Not on file documented as of this encounter Visit Diagnoses Not on filedocumented in this encounter Care Teams Social Media Marketing Specialist Relationship Specialty Start Date End Date Nabila King MD [address] [place] [address] [address] PCP - General Internal Medicine 12/16/20 Christine Kendall MD Surgeon Ophthalmology 12/13/20 Sita Magana MD [address] [place] [address] [address] [place] [address] Consulting Physician Internal Medicine 12/13/20 Regulo Pandey MD [address] [place] [address] [address] [place] [address] Referring Physician Cardiovascular Disease 12/16/20 Gigi Méndez MD [address] [place] [address] [address] [place] [address] Referring Physician Cardiology 02/18/21 documented as of this encounter
--- OUTSIDE RECORDS SUMMARY | 2024-08-09 17:49 | XMS_ITS | Encounter Summary ---
Author Organization [facility] Address [address] [place] [address] Phone Care Team Providers Care Wood Hacker Name Role Phone Christine Kendall MD Unavailable [phone] Sita Magana MD Unavailable [phone] Nabila King MD Primary Care Provider Regulo Pandey MD Unavailable Gigi Méndez MD Unavailable [phone] Encounter Details Date Type Department Care Team (Late st Contact Info) Description 02/15/2021 Orders Only [facility] [address] [place] [address] Nabila King MD [address] [place] [address] Social History Tobacco Use Types Packs/Day [...] on file Legal Sex Female 8:14 PM DOCTOR OF NURSING PRACTICE Gender Identity Not on file Sexual Orientation Not on file 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 Not on file documented as of this encounter Plan of Treatment Not on file documented as of this encounter Procedures Procedure Name Priority Date/Time Associated Diagnosis Comments CARDIOLOGY DOCUMENT SCAN 02/15/2021 documented in this encounter Results * SCAN - CARDIOLOGY (02/15/2021) Anatomical Region Laterality Modality Other Nabila King MD CV CARDIAC SERVICES PROCED URES Final Result documented in this encounter Visit Diagnoses Not on filedocumented in this encounter Care Teams Wood Hacker Relationship Specialty Start Date End Date Nabila King MD [address] [place] [address] PCP - General Internal Medicine 12/16/20 Christine Kendall MD Surgeon Ophthalmology 12/13/20 Sita Magana MD [address] [place] [address] [address] [place] [address] Consulting Physician Internal Medicine 12/13/20 Regulo Panedy MD [facility] [place] [address] Referring Physician Cardiovascular Disease 12/16/20 Gigi Méndez MD [address] [place] [address] Referring Physician Cardiology 02/18/21 documented as of this encounter
--- OUTSIDE RECORDS SUMMARY | 2024-08-09 17:49 | XMS_ITS | Encounter Summary ---
Author Organization [facility] Address [address] [facility] [address] [place] [address] Care Team Providers Care Lip Reading Teacher Name Role Phone Christine Kendall MD Unavailable [phone] Sita Magana MD Unavailable [phone] Nabila King MD Primary Care Provider [phone] Regulo Pandey MD Unavailable Gigi Méndez MD Unavailable [phone] Reason for Visit * Reason Comments Hospital Follow Up Encounter Details Date Type Department Care Team (Latest Contact Info) Description 02/18/2021 1:00 PM CDT Office Visit [facility] [address] [place] [address] Elizabeth Daniels, GANG HEMSTITCHING MACHINE OPERATOR [address] [place] [address] Hospital discharge follow-up (Primary Dx); Urinary frequency; Other atopic dermatitis Social History Tobacco Use Types Packs/Day Years [...] on file Legal Sex Female 8:14 PM PERCOLATOR OPERATOR Gender Identity Not on file Sexual Orientation Not on file 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 Not on file documented as of this encounter Last Filed Vital Signs Vital Sign Reading Time Taken Comments Blood Pressure 120/70 02/18/2021 12:49 PM CDT Pulse 70 02/18/2021 12:49 PM CDT Temperature 36.4 ??C (97.5 ??F) 02/18/2021 12:49 PM C DT Respiratory Rate 12 02/18/2021 12:49 PM CDT Oxygen Saturation 97% 02/18/2021 12:49 PM CDT Inhaled Oxygen Concentration - - Weight 54.4 kg (120 lb) 02/18/2021 12:49 PM CDT Height - - Body Mass Index 19.97 12/16/2020 2:38 PM CDT documented in this encounter Patient Instructions * Patient Instructions* Elizabeth Daniels NP - 02/18/2021 1:00 PM CDT Orders for AMS STAFF to arrange Please do UA with micro/culture for urinary frequency Orders for Lisa Conn to arrange Please continue to monitor rash on the chest if spreading call and stop eliquis You can use hydrocortisone Please continue to monitor symptoms if they worsen call or go to ER Call cardiology and inform of the issues Return for Next scheduled follow up. No orders of the defined types were placed in this encounter. A brief review of all your problems, medications, and orders from today No diagnosis found. PLEASE BRING IN ALL PILL BOTTLES TO EVERY OFFICE VISIT, THIS IS ESSENTIAL FOR ACCURATE REFILLS AND MAINTAINING AN ACCURATE MEDICATION LIST. documented in this encounter Ordered Prescriptions Prescription Sig Dispense Quantity Refills Last Filled Start Date End Date cefdinir (OMNICEF) 300 mg capsuleIndications :Urinary frequency Take 1 capsule (300 mg total) by mouth 2 (two) times a day for 5 days 10 capsule 02/18/2021 documented in this encounter Progress Notes * Elizabeth Daniels NP - 02/18/2021 1:00 PM CDT Lisa Conn returns today for a FOLLOW-UP VISIT AFTER HOSPITALIZATION for EP study with ablation Clerical and administrative information for chart reviewers 1. DATE OF ADMISSION 02/15/21 AND DISCHARGE FROM HOSPITAL 02/16/21 2. Date of the rusp-co-pcvu visit 02/18/21 4. Complexity of care: Moderate__x___ This required a review of care since our last visit and discussion of her concerns. . A review and discussion of Her Chronic Medical Problems, post discharge medications, pre admission active medications, and Medication Refill Management were also completed. ORDERS FROM OUR LAST OFFICE VISIT BEFORE THIS HOSPITALIZATION ORDERS FOR AMS STAFF TO ARRANGE 1. 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 Copy all of her paper records and put on my desk. ORDERS FOR Lisa Conn TO ARRANGE 1. Medication changes Stay off of Ativan Trial trazodone 50 mg 1/4 to 1/2 tablet to 1 tablet nightly for sleep and nerves 2. Visit with marine equipment research engineer in review the 2018 echocardiogram with the valvular problems and especially the VSD Review the palpitations symptoms, I would recommend 30 day [facility] ?? INFORMATION ABOUT HOSPITALIZATION Patient was admitted on 02/15 for EPS with ablation. She was started on Eliquis prior to discharge on 02/16. DETAILS REGARDING THIS VISIT: Lisa reports feeling fair. She reports since hospitalization she has been feeling a little off. She also if having urinary fullness and frequency. She reports feeling as though she has an UTI. AND NON-HOSPITAL DISCHARGE RELATED CLINICAL ISSUES REQUIRING REVIEW TODAY Patient has noted erythematous burning rash on chest post hospital discharge. Review of Systems Constitutional: Negative for chills and fever. Respiratory: Negative for cough and shortness of breath. Cardiovascular: Positive for palpitations. Negative for chest pain and leg swelling. Gastrointestinal: Negative for abdominal pain, nausea and vomiting. Genitourinary: Positive for flank pain and urgency. Negative for frequency and hematuria. Musculoskeletal: Negative for falls. Neurological: Positive for dizziness. Physical Exam Vitals and nursing note reviewed. Constitutional: Appearance: Normal appearance. HENT: Head: Normocephalic and atraumatic. Cardiovascular: Rate and Rhythm: Normal rate and regular rhythm. Heart sounds: Normal heart sounds. Pulmonary: Effort: Pulmonary effort is normal. Breath sounds: Normal breath sounds. Abdominal: General: Bowel sounds are normal. Palpations: Abdomen is soft. Tenderness: There is no abdominal tenderness. There is no right CVA tenderness or left CVA tenderness. Musculoskeletal: General: Normal range of motion. Skin: General: Skin is warm and dry. Neurological: Mental Status: She is alert and oriented to person, place, and time. Psychiatric: Mood and Affect: Mood normal. Behavior: Behavior normal. Diagnoses and all orders for this visit: Hospital discharge follow-up (Primary) Assessment & Plan: Patient presents for hospital discharge follow up. [...] needed. Medications were reviewed today as well. Urinary frequency Assessment & Plan: Patient reports feelings of suprapubic fullness and urinary frequency. Symptoms are concerning for UTI. Patient reports history of UTI with similar symptoms. We will have her provide UA with culture today. We will start of empiric antibiotic therapy and adjust if needed based on culture results. Orders: - cefdinir (OMNICEF) 300 mg capsule; Take 1 capsule (300 mg total) by mouth 2 (two) times a day for5 days - Urinalysis reflex to microscopic and culture Urine, clean voided; Future Other atopic dermatitis Assessment & Plan: Patient noted to have atopic dermatitis at the site of EKG patches. Patient has known sensitivity to adhesive. She was encouraged to keep area clean and dry. She can apply hydrocortisone for itching.She is to call with worsening or unimproved symptoms. Cosigned by Nabila King MD at 02/18/2021 2:58 PM CDT documented in this encounter Miscellaneous Notes * Assessment & Plan Note - Elizabeth Daniels NP - 02/18/2021 2:12 PM CDT Associated Problem(s): Other atopic dermatitis (Resolved 04/10/2022) Patient noted to have atopic dermatitis at the site of EKG patches. Patient has known sensitivity to adhesive. She was encouraged to keep area clean and dry. She can apply hydrocortisone for itching.She is to call with worsening or unimproved symptoms. * Assessment & Plan Note - Elizabeth Daniels NP - 02/18/2021 2:09 PM CDT Associated Problem(s): Hospital discharge follow-up (Resolved 04/10/2022) Patient presents for hospital discharge follow up. [...] needed. Medications were reviewed today as well. * Assessment & Plan Note - Elizabeth Daniels NP - 02/18/2021 1:59 PM CDT Associated Problem(s): Urinary frequency (Resolved 04/10/2022) Patient reports feelings of suprapubic fullness and urinary frequency. Symptoms are concerning for UTI. Patient reports history of UTI with similar symptoms. We will have her provide UA with culture today. We will start of empiric antibiotic therapy and adjust if needed based on culture results. documented in this encounter Plan of Treatment Not on file documented as of this encounter Results * (ABNORMAL) Urinalysis reflex to microscopic and [...] tendency for uric acid stone formation. Source: Cedeno Loogla. Last revised 08-31-2017 Elizabeth Daniels NP LAB MICROBIOLOGY - GENERAL ORDERABLES Final Result [facility] [address] [address] Department [place] [address] documented in this encounter Visit Diagnoses Diagnosis Hospital discharge follow-up- Primary Other follow-up examination Urinary frequency Other atopic dermatitis Urinary frequency documented in this encounter Discontinued Medications Medication Sig Discontinue Reason Start Date End Da te cholecalciferol (VITAMIN D-3) 2,000 unit tablet 3,000 Units Therapy completed 021 doxycycline hyclate 50 mg tabletIndications:Acne Rosacea Take 1 mg by mouth daily Therapy completed 05/18/2020 02/18/2021 documented as of this encounter Historical Medications * This list may reflect changes made after this encounter. apixaban (ELIQUIS) 5 mg tablet Take 5 mg by mouth 2 (two) times a day 03/19/2021 added in this encounter Care Teams Lip Reading Teacher Relationship Specialty Start Date End Date Nabila King MD [address] [place] [address] [address] [place] [address] PCP - General Internal Medicine 12/16/20 Christine Kendall MD Surgeon Ophthalmology 12/13/20 Sita Magaan MD [address] [place] [address] [address] [place] [address] Consulting Physician Internal Medicine 12/13/20 Regulo Pandey MD [address] [place] [address] [address] [place] [address] Referring Physician Cardiovascular Disease 12/16/20 Gigi Méndez MD [address] [place] [address] [address] [place] [address] Referring Physician Cardiology 02/18/21 documented as of this encounter
--- OUTSIDE RECORDS SUMMARY | 2024-08-09 17:49 | XMS_ITS | Encounter Summary ---
Author Organization [facility] Address [address] [place] [address] Care Team Providers Care Artillery Meteorological Man Name Role Phone Christine Kendall MD Unavailable [phone] Sita Magana MD Unavailable [phone] Nabila King MD Primary Care Provider + [phone] Regulo Pandey MD Unavailable Gigi Méndez MD Unavailable [phone] Encounter Details Date Type Department Care Team (Late st Contact Info) Description 02/19/2021 Telephone [facility] [address] [place] [address] Elizabeth Daniels NP [address] [place] [address] Social History Tobacco Use Types [...] file Legal Sex Female 8:14 PM CAR EXAMINER Gender Identity Not on file Sexual Orientation Not on file 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 She states she is feeling better since starting the antibiotic. She is pushing the water and cranberry juice. She will call with any other issues. documented in this encounter Plan of Treatment Not on file documented as of this encounter Visit Diagnoses Not on filedocumented in this encounter Care Teams Artillery Meteorological Man Relationship Specialty Start Date End Date Nabila King MD [address] [place] [address] [address] [place] [address] PCP - General Internal Medicine 12/16/20 Christine Kendall MD Surgeon Ophthalmology 12/13/20 Sita Magana MD [address] [place] [address] [address] [place] [address] Consulting Physician Internal Medicine 12/13/20 Regulo Pandey MD [address] [place] [address] [address] [place] [address] Referring Physician Cardiovascular Disease 12/16/20 Gigi Méndez MD [address] [place] [address] [address] [place] [address] Referring Physician Cardiology 02/18/21 documented as of this encounter
--- OUTSIDE RECORDS SUMMARY | 2024-08-09 17:49 | XMS_ITS | Encounter Summary ---
Author Organization [facility] Medical [facility] Address [address] [facility] [address] [facility] [address] [place] [address] Care Team Providers Care Hemstitching Machine Operator Name Role Phone Christine Kendall MD Unavailable [phone] Sita Magana MD Unavailable [phone] Nabila King MD Primary Care Provider + [phone] Regulo Pandey MD Unavailable Encounter Details Date Type Department Care Team (Late st Contact Info) Description 12/29/2020 Orders Only [facility] [address] [place] [address] Nabila King MD [address] [place] [address] Adenoma of colon (Primary Dx) Social History Tobacco Use Types [...] file Legal Sex Female 8:14 PM FOOD BEVERAGE ATTENDANT Gender Identity Not on file Sexual Orientation Not on file 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 Not on file documented as of this encounter Plan of Treatment Not on file documented as of this encounter Visit Diagnoses Diagnosis Adenoma of colon- Primary documented in this encounter Care Teams Hemstitching Machine Operator Relationship Specialty Start Date End Date Nabila King MD [address] [place] [address] PCP - General Internal Medicine 12/16/20 Christine Kendall MD Surgeon Ophthalmology 12/13/20 Sita Magana MD [address] [place] [address] Consulting Physician Internal Medicine 12/13/20 Regulo Pandey MD [address] [place] [address] Referring Physician Cardiovascular Disease 12/16/20 documented as of this encounter
--- OUTSIDE RECORDS SUMMARY | 2024-08-09 17:49 | XMS_ITS | Encounter Summary ---
Author Organization [facility] Healthcare Address [address] [place] [address] Care Team Providers Care Gaggerman Name Role Phone Christine Kendall MD Unavailable [phone] Sita Magana MD Unavailable [phone] Nabila King MD Primary Care Provider [phone] Regulo Pandey MD Unavailable Gigi Méndez MD Unavailable [phone] Reason for Referral * Cardiology (Routine) - Closed Specialty Diagnoses / Procedures Referred By Contac t Referred To Contact Diagnoses Dizziness Procedures Event Monitor, 30 Day Event Helga Daniels NP Phone: tel: [address] [phone] Referral ID Status Reason Start Date Expiration Date Visits Re quested Visits Authorized [id number] Closed 05/21/2021 06/20/2022 1 1 Reason for Visit * Cardiology (Routine) - Closed Specialty Diagnoses / Procedures Referred By Contac t Referred To Contact Diagnoses Dizziness Procedures Event Monitor, 30 Day Event Helga Daniels NP Phone: tel: [address] [phone] Referral ID Status Reason Start Date Expiration Date Visits Re quested Visits Authorized [id number] Closed 05/21/2021 06/20/2022 1 1 Encounter Details Date Type Department Care Team (Late st Contact Info) Description 05/27/2021 1:00 PM CDT - 05/27/2021 11:59 PM CDT Hospital Encounter [facility] [address] [place] [address] Nabila King MD [address] [place] [address] Helga Daniels, JASON [address] [place] [address] Dizziness Discharge Disposition: Discharge to home or self [...] on file Legal Sex Female 8:14 PM YOUTH PASTOR Gender Identity Not on file Sexual Orientation Not on file 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 Not on file documented as of this encounter Medications at Time of Discharge multivitamin capsule Take 1 capsule by mouth daily apixaban (ELIQUIS) 2.5 mg tablet Take 2.5 mg by mouth 2 (two) times a day 03/16/2021 2 cholecalciferol (VITAMIN D-3) 5,000 unit capsule Take 5,000 Units by mouth daily 2 FLUoxetine (PROzac) 10 mg tablet/capsuleInd ications:Adjustme nt disorder with anxiety Take 1 tablet/capsule (10 mg total) by mouth daily 30 tablet/capsule 1 04/19/2021 1 ketorolac (ACULAR LS) 0.4 % drops Administer 1 drop into both eyes as needed (as needed) 5 mL 3 05/11/2020 1 levothyroxine (SYNTHROID) 50 mcg tabletIndications :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 Take 1-2 tablets (50-100 mcg total) by mouth nightly 1TABLET ON ODD # DAYS, 2 ON EVEN # DAYS 180 tablet 3 04/19/2021 1 magnesium oxide,aspartate,c itr 400 mg magnesium capsule Take by mouth as needed 2 melatonin 5 mg capsule take 1 tablet every night before bed 0 06/15/2012 2 documented as of this encounter Discharge Disposition Disposition Code Departure Means Destination Discharge to home or self care documented in this encounter Plan of Treatment Not on file documented as of this encounter Procedures Procedure Name Priority Date/Time Associated Diagnosis Comments EVENT MONITOR Routine 05/27/2021 2:03 PM CDT Dizziness documented in this encounter Results * Event Monitor, 30 Day Event (05/27/2021 2:03 PM CDT) Anatomical Region Laterality Modality Electrocardiogra phy 06/29/2021 6:00 AM YOUTH PASTOR Narrative 07/08/2021 9:51 [place] [address] EVENT MONITOR Patient Name: LISA CONN M : 1935 Study Date: 06/29/2021 06:00:00 Gender: F Tech: Ref.Provider: HELGA DANIELS Height(Cm): BSA: Weight(Kg): Order Provider: HELGA DANIELS Procedures: Event Report: Event Monitor Report. Indications: dizziness and giddines. Conclusions: 1. Predominant rhythm is normal sinus rhythm with a minimum heart rate of 37 beats per minute in sinus and a maximum heart rate of 169 beats per minute during a short run of SVT. 2. Heart rate and rate variability is appropriate. 3. No prolonged pauses. 4. There were multiple short runs of symptomatic SVT lasting anywhere from 3 beats to 30 seconds long with heart rates as fast as 169 beats per minute. 5. There were numerous diary entries for shortness of breath, heart racing, chest pain, lightheadedness and symptom other than listed. Many of these were indeed associated with short runs of SVT and also short runs of atrial fibrillation as will be described below. 6. There were a few short runs of symptomatic atrial fibrillation with heart rates as fast 153 beats per minute. Electronically Signed By: Dr Gordo Sr 2021-07-08 09:51:57 YOUTH PASTOR Procedure Note Gordo rS MD - 07/08/[address] [address] EVENT MONITOR Patient Name: LISA CONN MPatient ID: [id number] : [id number] Date: 06/29/2021 06:00:00 Gender: FAccession #: [id number] Tech: Ref.Provider: HELGA DANIELS Height(Cm): BSA: Weight(Kg): Order Provider: HELGA DANIELS Procedures: Event Report: Event Monitor Report. Indications: dizziness and giddines. Conclusions: 1. Predominant rhythm is normal sinus rhythm with a minimum heart rate of37 beats per minute in sinus and a maximum heart rate of 169 beats per minute during ashort run of SVT. 2. Heart rate and rate variability is appropriate. 3. No prolonged pauses. 4. There were multiple short runs of symptomatic SVT lasting anywhere from3 beats to 30 seconds long with heart rates as fast as 169 beats per minute. 5. There were numerous diary entries for shortness of breath, heartracing, chest pain, lightheadedness and symptom other than listed. Many of these were indeedassociated with short runs of SVT and also short runs of atrial fibrillation as will bedescribed below. 6. There were a few short runs of symptomatic atrial fibrillation withheart rates as fast 153 beats per minute. Electronically Signed By: Dr Gordo Sr 2021-07-08 09:51:57 YOUTH PASTOR us Helga Daniels PRUNE WASHER [facility] CARDIAC SERVICE S PROCEDURES Final Result documented in this encounter Visit Diagnoses Diagnosis Dizziness Dizziness and giddiness documented in this encounter Care Teams Gaggerman Relationship Specialty Start Date End Date Nabila King MD [address] [place] [address] [address] [place] [address] PCP - General Internal Medicine 12/16/20 Christine Kendall MD Surgeon Ophthalmology 12/13/20 Sita Magana MD [address] [facility] [address] [place] [address] Consulting Physician Internal Medicine 12/13/20 Regulo Pandey MD [address] [facility] [address] [place] [address] Referring Physician Cardiovascular Disease 12/16/20 Gigi Méndez MD [address] [facility] [address] [place] [address] Referring Physician Cardiology 02/18/21 documented as of this encounter
--- OUTSIDE RECORDS SUMMARY | 2024-08-09 17:49 | XMS_ITS | Encounter Summary ---
Author Organization [facility] Address [address] [place] [address] Phone Care Team Providers Care Horticulture Supervisor Name Role Phone Christine Kendall MD Unavailable [phone] Sita Magana MD Unavailable [phone] Nabila King MD Primary Care Provider Regulo Pandey MD Unavailable Gigi Méndez MD Unavailable [phone] Encounter Details Date Type Department Care Team (Late st Contact Info) Description 09/10/2021 Orders Only [facility] [address] [employer] [place] [address] Nabila King MD [address] [place] [address] Social History Tobacco Use Types [...] on file Legal Sex Female 8:14 PM ALL ROUND LOGGER Gender Identity Not on file Sexual Orientation Not on file 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 Not on file documented as of this encounter Plan of Treatment Not on file documented as of this encounter Procedures Procedure Name Priority Date/Time Associated Diagnosis Comments SCAN - RADIOLOGY/IMAGING 09/10/2021 documented in this encounter Results * SCAN - RADIOLOGY/IMAGING (09/10/2021) Anatomical Region Laterality Modality Other us Nabila King MD Final Resu lt documented in this encounter Visit Diagnoses Not on filedocumented in this encounter Care Teams Horticulture Supervisor Relationship Specialty Start Date End Date Nabila King MD [address] [facility] [address] [place] [address] PCP - General Internal Medicine 12/16/20 Christine Kendall MD Surgeon Ophthalmology 12/13/20 Sita Magana MD [address] [place] [address] [address] [place] [address] Consulting Physician Internal Medicine 12/13/20 Regulo Pandey MD [address] [place] [address] [address] [place] [address] Referring Physician Cardiovascular Disease 12/16/20 Gigi Méndez MD [address] [place] [address] [address] [place] [address] Referring Physician Cardiology 02/18/21 documented as of this encounter
--- OUTSIDE RECORDS SUMMARY | 2024-08-09 17:49 | XMS_ITS | Encounter Summary ---
Author Organization [facility] Address [address] [place] [address] Phone Care Team Providers Care Support Merchandiser Name Role Phone Christine Kendall MD Unavailable [phone] Sita Magana MD Unavailable [phone] Nabila King MD Primary Care Provider Regulo Pandey MD Unavailable Gigi Méndez MD Unavailable [phone] Encounter Details Date Type Department Care Team (Late st Contact Info) Description 03/23/2021 Orders Only [facility] [address] [place] [address] Nabila King MD [address] [place] [address] Social History Tobacco Use Types [...] on file Legal Sex Female 8:14 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 Gender Identity Not on file Sexual Orientation Not on file 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 Not on file documented as of this encounter Plan of Treatment Not on file documented as of this encounter Procedures Procedure Name Priority Date/Time Associated Diagnosis Comments CARDIOLOGY DOCUMENT SCAN 03/23/2021 documented in this encounter Results * SCAN - CARDIOLOGY (03/23/2021) Anatomical Region Laterality Modality Other Nabila King MD [facility] PROCED URES Final Result documented in this encounter Visit Diagnoses Not on filedocumented in this encounter Care Teams Support Merchandiser Relationship Specialty Start Date End Date Nabila King MD [address] [facility] [address] [place] [address] PCP - General Internal Medicine 12/16/20 Christine Kendall MD Surgeon Ophthalmology 12/13/20 Sita Magana MD [address] [place] [address] [address] [place] [address] Consulting Physician Internal Medicine 12/13/20 Regulo Pandey [facility] [address] [place] [address] Referring Physician Cardiovascular Disease 12/16/20 Gigi Méndez MD [address] [facility] [address] [place] [address] Referring Physician Cardiology 02/18/21 documented as of this encounter
--- OUTSIDE RECORDS SUMMARY | 2024-08-09 17:49 | XMS_ITS | Encounter Summary ---
Author Organization [facility] Address [address] [facility] [address] [place] [address] Care Team Providers Care Treasury Associate Name Role Phone Christine Kendall MD Unavailable [phone] Sita Magana MD Unavailable [phone] Nabila King MD Primary Care Provider [phone] Regulo Pandey MD Unavailable Gigi Méndez MD Unavailable [phone] Encounter Details Date Type Department Care Team (Late st Contact Info) Description 02/23/2021 Telephone [facility] [address] [place] [address] Nabila King MD [address] [place] [address] Social History Tobacco Use Types Packs/Day Years [...] on file Legal Sex Female 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 Paige Gonzalez. Cbn: [phone] documented in this encounter Plan of Treatment Not on file documented as of this encounter Visit Diagnoses Not on filedocumented in this encounter Care Teams Treasury Associate Relationship Specialty Start Date End Date Nabila King MD [address] [place] [address] [address] [place] [address] PCP - General Internal Medicine 12/16/20 Christine Kendall MD Surgeon Ophthalmology 12/13/20 Sita Magana MD [facility] [address] [place] [address] Consulting Physician Internal Medicine 12/13/20 Regulo Pandey MD [address] [place] [address] Referring Physician Cardiovascular Disease 12/16/20 Gigi Méndez MD [address] [place] [address] Referring Physician Cardiology 02/18/21 documented as of this encounter
--- OUTSIDE RECORDS SUMMARY | 2024-08-09 17:49 | XMS_ITS | Encounter Summary ---
Author Organization [facility] Medical Group Address [address] [facility] [address] [place] [address] Care Team Providers Care Care Asst Name Role Phone Christine Kendall MD Unavailable [phone] Sita Magana MD Unavailable [phone] Nabila King MD Primary Care Provider [phone] Regulo Pandey MD Unavailable Gigi Méndez MD Unavailable [phone] Reason for Referral * Cardiology (Routine) - Closed Specialty Diagnoses / Procedures Referred By Contac t Referred To Contact Diagnoses Dizziness Procedures Event Monitor, 30 Day Event Helga Daniels NP Phone: tel: [address] [address] Referral ID Status Reason Start Date Expiration Date Visits Re quested Visits Authorized [id number] Closed 05/21/2021 06/20/2022 1 1 Reason for Visit * Reason Comments Dizziness Encounter Details Date Type Department Care Team (Latest Contact Info) Description 05/21/2021 9:30 AM CDT Office Visit [facility] [address] [place] [phone] Helga Daniels NP [address] [place] [address] Dizziness (Primary Dx) Social History Tobacco Use Types [...] on file Legal Sex Female 8:14 PM DISABILITY ATTORNEY Gender Identity Not on file Sexual Orientation Not on file 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 Not on file documented as of this encounter Last Filed Vital Signs Vital Sign Reading Time Taken Comments Blood Pressure 110/70 05/21/2021 9:17 AM CDT Pulse 70 05/21/2021 9:17 AM CDT Temperature 36.1 ??C (97 ??F) 05/21/2021 9:17 AM CDT Respiratory Rate 18 05/21/2021 9:17 AM CDT Oxygen Saturation 97% 05/21/2021 9:17 AM CDT Inhaled Oxygen Concentration - - Weight 53.1 kg (117 lb) 05/21/2021 9:17 AM CDT Height 162.6 cm (5' 4 ) 05/21/2021 9:17 AM CDT Body Mass Index 20.08 05/21/2021 9:17 AM CDT documented in this encounter Patient Instructions * Patient Instructions* Helga Daniels NP - 05/21/2021 9:30 AM CDT Orders for AMS STAFF to arrange Please do TSH with reflex T4 and UA with micro/culture for dizziness Please do 30 day tele monitor for dizziness Follow up after monitor is finished Orders for Lisa Conn to arrange Please increase your fluids-avoid caffeine and alcohol Please avoid sudden position changes You can wear compression stockings as well Please monitor your blood pressure if able Please go to ER with worsening or persistent symptoms. Return in about 1 week (around 05/28/2021) for Recheck. Orders Placed This Encounter Procedures ??? ECG 12 lead A brief review of all your problems, medications, and orders from today ICD-9-CM ICD-10-CM 1. Dizziness 780.4 R42 ECG 12 lead PLEASE BRING IN ALL PILL BOTTLES TO EVERY OFFICE VISIT, THIS IS ESSENTIAL FOR ACCURATE REFILLS AND MAINTAINING AN ACCURATE MEDICATION LIST. documented in this encounter Progress Notes * Helga Daniels NP - 05/21/2021 9:30 AM CDT ASSESSMENT AND PLAN Patient Instructions Orders for AMS STAFF to arrange Please do TSH with reflex T4 and UA with micro/culture for dizziness Please arrange follow up in one week Orders for Lisa Conn to arrange Please increase your fluids-avoid caffeine and alcohol Please avoid sudden position changes You can wear compression stockings as well Please monitor your blood pressure if able Please go to ER with worsening or persistent symptoms. Return in about 1 week (around 05/28/2021) for Recheck. Orders Placed This Encounter Procedures ??? ECG 12 lead A brief review of all your problems, medications, and orders from today ICD-9-CM ICD-10-CM 1. Dizziness 780.4 R42 ECG 12 lead PLEASE BRING IN ALL PILL BOTTLES TO EVERY OFFICE VISIT, THIS IS ESSENTIAL FOR ACCURATE REFILLS AND MAINTAINING AN ACCURATE MEDICATION LIST. CHIEF COMPLAINT Dizziness HISTORY OF PRESENT ILLNESS Lisa Conn comes to the office today for feelings of dizziness. One week ago went to see cardiology and they stopped her eliquis to see if it would help with her feelings of being dizzy and begin off balance. She feels as though she is very foggy. She went and got tested on Monday for covid and it was negative. She states thyroid dose was increased 2 months ago. Her current symptoms havebeen ongoing for several weeks. Discussion of symptoms and my assessment and plan: 1. Dizziness Patient is reporting feelings of being dizzy and off balance. She reports it has been ongoing for afew weeks and does not seem to improve. On exam no acute focal neuro deficit noted. She was noted to be bradycardic and EKG completed which shows sinus bradycardia with no acute ST/T wave changes. She has some ST segment elevation in V2, which was reviewed with Dr. King, this however, is only not ed in a single lead. There is concern with her bradycardia that she may not be perfusing well and this is contributing to her feeling dizzy and lightheaded. We will place tele monitor to look for anyAV block, pauses or other underlying arrhythmia. She will avoid driving while this is ongoing. We will check thyroid today to r/o any underlying thyroid dysfunction that may be contributing. She willfollow up after monitor or sooner if needed. - ECG 12 lead SOCIAL HISTORY Social History Tobacco Use ??? Smoking status: Never Smoker ??? Smokeless tobacco: Never Used Substance Use Topics ??? Alcohol use: No REVIEW OF SYSTEMS Review of Systems Constitutional: Positive for appetite change (decreased ), diaphoresis and fatigue. HENT: Negative for congestion, ear discharge, ear pain, sinus pressure and sinus pain. Respiratory: Negative for chest tightness and shortness of breath. Cardiovascular: Positive for palpitations. Negative for chest pain. Gastrointestinal: Positive for nausea. Negative for blood in stool, constipation, diarrhea and vomiting. Genitourinary: Negative for difficulty urinating. Neurological: Positive for dizziness and headaches (behind the eyes and in the back of the neck ). Psychiatric/Behavioral: The patient is nervous/anxious. MEDICATIONS CHANGED / CLEANED UP THIS VISIT There are no discontinued medications. MEDICATION LIST AT CONCLUSION OF THIS VISIT Current Outpatient Medications [facility] Medication Sig Dispense Refill ??? apixaban (ELIQUIS) 2.5 mg tablet Take 2.5 mg by mouth 2 (two) times a day ??? cholecalciferol (VITAMIN D-3) 5,000 unit capsule Take 5,000 Units by mouth daily ??? FLUoxetine (PROzac) 10 mg tablet/capsule Take 1 tablet/capsule (10 mg total) by mouth daily 30 tablet/capsule 1 ??? ketorolac (ACULAR LS) 0.4 % [...] capsule Take 1 capsule by mouth daily No current [facility]-ordered facility-administered medications on file. ALLERGIES is allergic to clarithromycin, metronidazole, sulfa (sulfonamide antibiotics), and chloramphenicol. PHYSICAL EXAM body mass index is 20.08 kg/m??. Vitals: 05/21/21 0917 BP: 110/70 BP Location: Left arm Patient Position: Sitting Pulse: 70 Resp: 18 Temp: 36.1 ??C (97 ??F) SpO2: 97% Weight: 53.1 kg (117 lb) Height: 162.6 cm (5' 4 ) Physical Exam Vitals and nursing note reviewed. Constitutional: Appearance: Normal appearance. HENT: Head: Normocephalic and atraumatic. Right Ear: Tympanic membrane, ear canal and external ear normal. Left Ear: Tympanic membrane, ear canal and external ear normal. Nose: Nose normal. Mouth/Throat: Mouth: Mucous membranes are moist. Pharynx: No posterior oropharyngeal erythema. Eyes: Extraocular Movements: Extraocular movements intact. Pupils: Pupils are equal, round, and reactive to light. Cardiovascular: Rate and Rhythm: Regular rhythm. Bradycardia present. Heart sounds: Normal heart sounds. Pulmonary: Effort: Pulmonary effort is normal. Breath sounds: Normal breath sounds. Abdominal: General: Bowel sounds are normal. Palpations: Abdomen is soft. There is no mass. Tenderness: There is no abdominal tenderness. Musculoskeletal: General: Normal range of motion. Cervical back: Normal range of motion. Skin: General: Skin is warm and dry. Neurological: General: No focal deficit present. Mental Status: She is alert and oriented to person, place, and time. Motor: No weakness. Coordination: Romberg sign negative. Gait: Gait normal. Psychiatric: Mood and Affect: [...] with her in the After Visit Summary. Helga Daniels, WATER POLLUTION CONTROL INSPECTOR- THE FOLLOWING CLERICAL INFORMATION DOES NOT DUE [...] ??? 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 Dizziness R42 MYKE Sneed- Cosigned by Nabila King MD at 05/21/2021 4:48 PM CDT documented in this encounter Plan of Treatment Not on file documented as of this encounter Procedures Procedure Name Priority Date/Time Associated Diagnosis Comments ECG 12-LEAD Routine 05/21/2021 Dizziness documented in this encounter Results * Event Monitor, 30 Day Event (05/27/2021 2:03 PM CDT) Anatomical Region Laterality Modality Electrocardiogra phy 06/29/2021 6:00 AM DISABILITY ATTORNEY Narrative 07/08/2021 9:51 AM DISABILITY ATTORNEY [place] [id number] EVENT MONITOR Patient Name: LISA CONN M : [id number] Study Date: 06/29/2021 06:00:00 Gender: F Tech: [...] Signed By: Dr Gordo Sr 2021-07-08 09:51:57 DISABILITY ATTORNEY Procedure Note Gordo Sr MD - 07/08/[address] [place] [address] EVENT MONITOR Patient Name: LISA CONN MPatient ID: [id number] : [id number] Date: 06/29/2021 06:00:00 Gender: FAccession #: [id number] Tech: Ref.Provider: HELGA DANIELS Height(Cm): BSA: Weight(Kg): [...] Signed By: Dr Gordo Sr 2021-07-08 09:51:57 DISABILITY ATTORNEY Helga Daniels NP CV CARDIAC SERVICE S PROCEDURES Final Result * Urinalysis reflex to microscopic and culture [...] Negative Negative CERNER CH Leukocyte esterase, ur Negative Negative CERNER CH UA reflex comment Reflex conditions for microscopic UA and culture not met. CERNER CH Urine, clean voided 05/21/2021 10:17 AM CDT 05/21/2021 12:55 PM CDT Narrative CERNER CH - 05/21/2021 1:06 PM CDT ?? Urine pH is affected by diet, medications, systemic acid-base disturbances, and renal tubular function. ??pH may affect urinary stone formation. ??For example, urine pH below 6.0 may help reduce the tendency for calcium phosphate stones and pH greater than 6.0 may reduce the tendency for uric acid stone formation. Source: [facility] [employer]. Last revised 08-31-2017 Helga Daniels NP LAB MICROBIOLOGY - GENERAL ORDERABLES Final Result Performing Organization Address [facility] de Phone Number [place] [address] [place], [place] [id number] * (ABNORMAL) TSH reflex to free T4 (05/21/2021 10:17 AM CDT) TSH 0.11(L) 0.30 - 4.20 mcIUnit/mL CERNER Blood 05/21/2021 10:1 7 AM CDT 05/21/2021 12:56 PM CDT Helga Daniels NP LAB BLOOD ORDERABL ES Final Result Performing Organization Address [facility] de Phone Number [place] [address] Department [place] [address] * ECG 12 lead (05/21/2021) Helga Daniels BANKRUPTCY ASSISTANT ECG ORDERABLES Fi nal Result documented in this encounter Visit Diagnoses Diagnosis Dizziness- Primary Dizziness and giddiness Dizziness Dizziness and giddiness Dizziness Dizziness and giddiness documented in this encounter Care Teams Care Asst Relationship Specialty Start Date End Date Nabila King MD [address] [place] [address] [address] [place] [address] PCP - General Internal Medicine 12/16/20 Christine Kendall MD Surgeon Ophthalmology 12/13/20 Sita Magana MD [address] [place] [address] [address] [place] [address] Consulting Physician Internal Medicine 12/13/20 Regulo Pandey MD [address] [place] [address] [address] [place] [address] Referring Physician Cardiovascular Disease 12/16/20 Gigi Méndez MD [address] [place] [address] [address] [place] [address] Referring Physician Cardiology 02/18/21 documented as of this encounter
--- OUTSIDE RECORDS SUMMARY | 2024-08-09 17:49 | XMS_ITS | Encounter Summary ---
Author Organization [facility] Medical Group Address [address] [facility] [address] [place] [address] Care Team Providers Care Oven Operator Automatic Name Role Phone Christine Kendall MD Unavailable [phone] Sita Magana MD Unavailable [phone] Nabila King MD Primary Care Provider Regulo Pandey MD Unavailable Gigi Méndez MD Unavailable [phone] Encounter Details Date Type Department Care Team (Late st Contact Info) Description 06/21/2021 Telephone [facility] [address] [place] [address] Maxine Szymanski, RN Social History Tobacco Use Types Packs/Day [...] on file 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 She verbalized understanding and states she will be in to see ANV tomorrow and will schedule thyroid labs when she checks out. * Telephone Encounter - Susan Novak RN - 06/21/2021 2:15 PM CDT Attempted to call pt, no answer and no VM option. * Telephone Encounter - Maxine Szymanski RN - 06/21/2021 1:12 PM CDT ----- Message from Nabila King MD sent at 06/21/2021 1:09 PM CDT ----- Encouraged her to decrease her Synthroid from 1 tablet alternating with 2 tablets every other day just to 1 tablet daily. This may help decrease the tendency for her palpitations. She is at upper endof treatment range with her thyroid at this time. Recheck free T4 TSH in 3 months diagnosis = hypothyroid adult documented in this encounter Plan of Treatment Not on file documented as of this encounter Visit Diagnoses Not on filedocumented in this encounter Care Teams Oven Operator Automatic Relationship Specialty Start Date End Date Nabila King MD [facility] [address] [place] [address] PCP - General Internal Medicine 12/16/20 Christine Kendall MD Surgeon Ophthalmology 12/13/20 Sita Magana MD [facility] [address] [place] [address] Consulting Physician Internal Medicine 12/13/20 Regulo Pandey MD [address] [facility] [address] [place] [address] Referring Physician Cardiovascular Disease 12/16/20 Gigi Méndez MD [address] [facility] [address] [place] [address] Referring Physician Cardiology 02/18/21 documented as of this encounter
--- OUTSIDE RECORDS SUMMARY | 2024-08-09 17:49 | XMS_ITS | Encounter Summary ---
Author Organization [facility] Medical Group Address [address] [facility] [address] [place] [address] Care Team Providers Care Recruiting Coordinator Name Role Phone Christine Kendall MD Unavailable [phone] Sita Magana MD Unavailable [phone] Nabila King MD Primary Care Provider [phone] Regulo Pandey MD Unavailable Gigi Méndez MD Unavailable [phone] Encounter Details Date Type Department Care Team (Late st Contact Info) Description 03/24/2021 Telephone [facility] [address] [place] [address] Nabila King MD [address] [place] [address] Social History Tobacco Use Types Packs/Day Years [...] on file 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 Gender Identity Not on file Sexual Orientation Not on file 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 King documented in this encounter Plan of Treatment Not on file documented as of this encounter Visit Diagnoses Not on filedocumented in this encounter Care Teams Recruiting Coordinator Relationship Specialty Start Date End Date Nabila King MD [address] [place] [address] PCP - General Internal Medicine 12/16/20 Christine Kendall MD Surgeon Ophthalmology 12/13/20 Sita Magana MD [facility] [address] [place] [address] Consulting Physician Internal Medicine 12/13/20 Regulo Pandey MD [address] [place] [address] Referring Physician Cardiovascular Disease 12/16/20 Gigi Méndez MD [address] [place] [address] Referring Physician Cardiology 02/18/21 documented as of this encounter
--- OUTSIDE RECORDS SUMMARY | 2024-08-09 17:49 | XMS_ITS | Encounter Summary ---
Author Organization [facility] Healthcare Address [address] [place] [address] Care Team Providers Care Fueler Name Role Phone Christine Kendall MD Unavailable [phone] Sita Magana MD Unavailable [phone] Nabila King MD Primary Care Provider [phone] Regulo Pandey MD Unavailable Gigi Méndez MD Unavailable [phone] Encounter Details Date Type Department Care Team (Late st Contact Info) Description 03/22/2021 4:45 PM CDT Lab [address] [address] Nausea; History of Helicobacter pylori infection Social History Tobacco Use Types Packs/Day Years [...] on file 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 PYLORI ANTIGEN, STOOL Routine 03/22/2021 10:30 AM CDT Nausea History of Helicobacter pylori infection documented in this encounter Results * H. pylori antigen, stool Stool (03/22/2021 10:30 AM CDT) H. pylori Ag, stool Negative Negative FRANKIE MOTLEY Comment: Interpretative Data Testing performed at the [facility] using the [employer]ian HpSA [...] last revised August 2020. Testing performed by: [facility], [address] [place]., [address] Stool 03/22/2021 10:3 0 AM CDT 03/22/2021 7:35 PM CDT us Nabila King MD LAB MICROBIOLOGY - GENERAL ORDERABLES Final Result [facility] [address] Department [place] [address] documented in this encounter Visit Diagnoses Diagnosis Nausea Nausea alone History of Helicobacter pylori infection documented in this encounter Care Teams Fueler Relationship Specialty Start Date End Date Nabila King MD [address] [facility] [place] [address] PCP - General Internal Medicine 12/16/20 Christine Kendall MD Surgeon Ophthalmology 12/13/20 Sita Magana MD [address] [place] [address] Consulting Physician Internal Medicine 12/13/20 Regulo Pandey MD [address] [place] [address] Referring Physician Cardiovascular Disease 12/16/20 Gigi Méndez MD [address] [place] [address] Referring Physician Cardiology 02/18/21 documented as of this encounter
--- OUTSIDE RECORDS SUMMARY | 2024-08-09 17:49 | XMS_ITS | Encounter Summary ---
Author Organization [facility] Medical Group Address [address] [facility] [address] [place] [address] Care Team Providers Care Lawnmower Repair Mechanic Name Role Phone Christine Kendall MD Unavailable [phone] Sita Magana MD Unavailable [phone] Nabila King MD Primary Care Provider [phone] Regulo Pandey MD Unavailable Gigi Méndez MD Unavailable [phone] Encounter Details Date Type Department Care Team (Late st Contact Info) Description 03/19/2021 1:00 PM CDT [facility] [address] [place] [address] History of Helicobacter pylori infection; Fatigue, unspecified type; Acquired hypothyroidism; Nausea Social History Tobacco Use Types Packs/Day Years [...] on file 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 Gender Identity Not on file Sexual Orientation Not on file 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 Not on file documented as of this encounter Plan of Treatment Not on file documented as of this encounter Visit Diagnoses Diagnosis History of Helicobacter pylori infection Fatigue, unspecified type Acquired hypothyroidism Unspecified hypothyroidism Nausea Nausea alone documented in this encounter Care Teams Lawnmower Repair Mechanic Relationship Specialty Start Date End Date Nabila King MD [address] [facility] [address] [place] [address] PCP - General Internal Medicine 12/16/20 Christine Kendall MD Surgeon Ophthalmology 12/13/20 Sita Magana MD [address] [facility] [address] [place] [address] Consulting Physician Internal Medicine 12/13/20 Regulo Pandey MD [address] [place] [address] Referring Physician Cardiovascular Disease 12/16/20 Gigi Méndez MD [address] [place] [address] Referring Physician Cardiology 02/18/21 documented as of this encounter
--- OUTSIDE RECORDS SUMMARY | 2024-08-09 17:49 | XMS_ITS | Encounter Summary ---
Author Organization [facility] Address [address] [place] [address] Phone Care Team Providers Care Hand Grinder Name Role Phone Christine Kendall MD Unavailable [phone] Sita Magana MD Unavailable [phone] Nabila King MD Primary Care Provider Regulo Pandey MD Unavailable Gigi Méndez MD Unavailable [phone] Encounter Details Date Type Department Care Team (Late st Contact Info) Description 09/16/2021 Orders Only [facility] [address] [place] [address] Nabila King MD [address] [place] [address] Social History Tobacco Use Types [...] on file Legal Sex Female 8:[address]PORTER Gender Identity Not on file Sexual Orientation Not on file 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 Not on file documented as of this encounter Plan of Treatment Not on file documented as of this encounter Procedures Procedure Name Priority Date/Time Associated Diagnosis Comments SCAN - LABS 09/16/2021 documented in this encounter Results * SCAN - LABS (09/16/2021) Nabila King MD Edited Res ult - Final documented in this encounter Visit Diagnoses Not on filedocumented in this encounter Care Teams Hand Grinder Relationship Specialty Start Date End Date Nabila King MD [address] [facility] [place] [address] PCP - General Internal Medicine 12/16/20 Christine Kendall MD Surgeon Ophthalmology 12/13/20 Siat Magana MD [address] [place] [address] [address] [place] [address] Consulting Physician Internal Medicine 12/13/20 Regulo Pandey MD [address] [place] [address] [address] [place] [address] Referring Physician Cardiovascular Disease 12/16/20 Gigi Méndez MD [address] [place] [address] [address] [place] [address] Referring Physician Cardiology 02/18/21 documented as of this encounter
--- OUTSIDE RECORDS SUMMARY | 2024-08-09 17:49 | XMS_ITS | Encounter Summary ---
Author Organization [facility] Address [address] [place] [address] Care Team Providers Care Medical Health Researcher Name Role Phone Christine Kendall MD Unavailable [phone] Sita Magana MD Unavailable [phone] Nabila King MD Primary Care Provider + [phone] Regulo Pandey MD Unavailable Gigi Méndez MD Unavailable [phone] Encounter Details Date Type Department Care Team (Late st Contact Info) Description 07/08/2021 Telephone [facility] [address] [place] [address] Elizabeth Daniels NP [address] [place] [address] Social History Tobacco Use Types [...] on file Legal Sex Female 8:14 PM SALES PROMOTION 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 Discussed results of tele strip with her. She states she has been feeling well recently. She wishes to wait till her upcoming visit before deciding on referral back to cardiology. She will call with any further issues S PROMOTION REPRESENTATIVE * Telephone Encounter - Jolene Carson RN - 07/08/2021 11:40 AM SALES PROMOTION REPRESENTATIVE Called and left a message For cardiology to send us the strips of the svt S PROMOTION REPRESENTATIVE * Telephone Encounter - Maxine Szymanski RN - 07/08/2021 11:26 AM CST We are working on getting the strips. Pt has appt with [facility] on 07/20/21. Pt wants to wait et see [facility], is this ok? Please advise. Pt is expecting a call back. S PROMOTION REPRESENTATIVE * Telephone Encounter - Elizabeth Daniels NP - 07/08/2021 11:01 AM SALES PROMOTION REPRESENTATIVE Please get her tele strips. Also, I'd like to see her tomorrow or Monday to review tele monitor. S PROMOTION REPRESENTATIVE documented in this encounter Plan of Treatment Not on file documented as of this encounter Visit Diagnoses Not on filedocumented in this encounter Care Teams Medical Health Researcher Relationship Specialty Start Date End Date Nabila King MD [address] [place] [address] [address] PCP - General Internal Medicine 12/16/20 Christine Kendall MD Surgeon Ophthalmology 12/13/20 Sita Magana MD [address] [place] [address] [address] [place] [address] Consulting Physician Internal Medicine 12/13/20 Regulo Pandey MD [address] [place] [address] Referring Physician Cardiovascular Disease 12/16/20 Gigi Méndez MD [address] [place] [address] [address] [place] [address] Referring Physician Cardiology 02/18/21 documented as of this encounter
--- OUTSIDE RECORDS SUMMARY | 2024-08-09 17:49 | XMS_ITS | Encounter Summary ---
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 Gender Identity Not on file Sexual Orientation Not on file 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 Not on file documented as of this encounter Plan of Treatment Not on file documented as of this encounter Procedures Procedure Name Priority Date/Time Associated Diagnosis Comments SLEEP LAB/STUDY - RESULT 04/15/2021 documented in this encounter Results * SLEEP LAB/STUDY - RESULT (04/15/2021) us Provider Scanning Final Result documented in this encounter Visit Diagnoses Not on filedocumented in this encounter Care Teams Strip Mill Operator Relationship Specialty Start Date End Date Nabila King MD [address] [place] [address] PCP - General Internal Medicine 12/16/20 Christine Kendall MD Surgeon Ophthalmology 12/13/20 Sita Magana MD [address] [place] [address] [address] [place] [address] Consulting Physician Internal Medicine 12/13/20 Regulo Pandey MD [address] [place] [address] [address] [place] [address] Referring Physician Cardiovascular Disease 12/16/20 Gigi Méndez MD [address] [place] [address] [address] [place] [address] Referring Physician Cardiology 02/18/21 documented as of this encounter
--- OUTSIDE RECORDS SUMMARY | 2024-08-09 17:49 | XMS_ITS | Encounter Summary ---
Author Organization [facility] Healthcare Address [address] [place] [address] Care Team Providers Care Network Associate Name Role Phone Christine Kendall MD Unavailable [phone] Sita Magana MD Unavailable [phone] Nabila King MD Primary Care Provider [phone] Regulo Pandey MD Unavailable Gigi Méndez MD Unavailable [phone] Encounter Details Date Type Department Care Team (Late st Contact Info) Description 03/19/2021 4:25 PM CDT Lab [address] [address] Hypothyroidism, adult; History of osteoporosis; Disorder of bone, unspecified ; Tiredness; Nausea; Paroxysmal A-fib (CMS/HCC) (HCC) Social History Tobacco Use Types [...] on file Legal Sex Female 8:14 PM 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 Gender Identity Not on file Sexual Orientation Not on file 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 Not on file documented as of this encounter Plan of Treatment Not on file documented as of this encounter Procedures Procedure Name Priority Date/Time Associated Diagnosis Comments EGFR Routine 03/19/2021 12:55 PM CDT Nausea DIFFERENTIAL AUTO Routine 03/19/2021 12: 55 PM CDT Tiredness IRON PROFILE W/ IBC Routine 03/19/2021 1 2:55 PM CDT Tiredness CBC WITH AUTO DIFFERENTIAL Routine 03/19/2021 12:55 PM CDT Tiredness METHYLMALONIC ACID, SERUM Routine 03/19/2021 12:55 PM CDT Tiredness VITAMIN D 25 HYDROXY Routine 03/19/2021 12:55 PM CDT History of osteoporosis Disorder of bone, unspecified TSH Routine 03/19/2021 12:55 PM CDT Hypothyroidism, adult T4, FREE Routine 03/19/2021 12:55 PM CDT Hypothyroidism, adult PTH Routine 03/19/2021 12:55 PM CDT Tiredness History of osteoporosis FERRITIN Routine 03/19/2021 12:55 PM CDT Paroxysmal A-fib (CMS/HCC) (HCC) VITAMIN B12 Routine 03/19/2021 12:55 PM CDT Tiredness COMPREHENSIVE METABOLIC PANEL Routine 03/19/2021 12:55 PM CDT Nausea documented in this encounter Results * eGFR (03/19/2021 12:55 PM CDT) [facility] eGFR 81 mL/min/1.7 3 m2 [facility] Comment: Interpretive Data Reference Interval Normal ?>/= 90 mL/min/1.73m2 Mildly decreased* ? 60 - 89 mL/min/1.73m2 Mildly to moderately decreased ?45 - 59 mL/min/1.73m2 Moderately to severely decreased ??30 - 44 mL/min/1.73m2 Severely decreased ?15 - 29 mL/min/1.73m2 Kidney Failure ?< 15 ??mL/min/1.73m2 *Relative to young adult level Estimated glomerular filtration rate is determined by the CKD-EPI equation recommended by the National Kidney Foundation (KDIGO 2012 Clinical Practice Guideline for the Evaluation and Management of Chronic Kidney Disease. Kidney Intnl Suppl Aug 2012;3:1). The CKD-EPI equation should not be used for patients with unstable renal function and has not been validated in children and those over 70. Current interpretive data was last reviewed 2020 Blood specimen (specimen) 03/19/2021 12:55 PM CDT 03/19/2021 5:02 PM CDT us Nabila King MD LAB BLOOD ORDERABLES Final Result [facility] [address] [place] [address] * Differential, auto (03/19/2021 12:55 PM CDT) Neutrophil abs 2.9 1.7 - 6.5 K/cumm [facility] Imm gran abs 0.0 0.0 - 0.1 K/cumm [facility] Lymphocyte abs 2.3 0.8 - 3.3 K/cumm [facility] Monocyte abs 0.4 0.2 - 0.8 K/cumm [facility] Eosinophil abs 0.0 0.0 - 0.5 K/cumm [facility] Basophil abs 0.0 0.0 - 0.1 K/cumm [facility] Neutrophil pct 51.9 % [facility] Comment: Interpretive Data Percent cell count reference ranges are not reported, since discordance with absolute values may lead to misinterpretation of CBC data. Current Interpretive Data was last revised on 2017. Imm gran pct 0.0 % [facility] Comment: Interpretive Data Percent cell count reference ranges are not reported, since discordance with absolute values may lead to misinterpretation of CBC data. Current Interpretive Data was last revised on 2017. Lymphocyte pct 40.3 % [facility] Comment: Interpretive Data Percent cell count reference ranges are not reported, since discordance with absolute values may lead to misinterpretation of CBC data. Current Interpretive Data was last revised on 2017. Monocyte pct 6.6 % [facility] Comment: Interpretive Data Percent cell count reference ranges are not reported, since discordance with absolute values may lead to misinterpretation of CBC data. Current Interpretive Data was last revised on 2017. Eosinophil pct 0.7 % [facility] Comment: Interpretive Data Percent cell count reference ranges are not reported, since discordance with absolute values may lead to misinterpretation of CBC data. Current Interpretive Data was last revised on 2017. Basophil pct 0.5 % [facility] Comment: Interpretive Data Percent cell count reference ranges are not reported, since discordance with absolute values may lead to misinterpretation of CBC data. Current Interpretive Data was last revised on 2017. Blood specimen (specimen) 03/19/2021 12:55 PM CDT 03/19/2021 4:54 PM CDT us Nabila King MD LAB BLOOD ORDERABLES Final Result Performing Organization Address [facility] Co de Phone Number [facility] [address] [place] [address] * (ABNORMAL) Ferritin (03/19/2021 12:55 PM CDT) Ferritin 189(H) 15 - 150 ng/mL [facility] Blood specimen (specimen) 03/19/2021 12:55 PM CDT 03/19/2021 4:54 PM CDT us Nabila King MD LAB BLOOD ORDERABLES Final Result Performing Organization Address City/[facility] Co de Phone Number [facility] MOT[facility] [address] Department [place] [address] * Comprehensive metabolic panel (03/19/2021 12:55 PM [...] King MD LAB BLOOD ORDERABLES Final Result [facility] [address] Department [place] [address] * Methylmalonic acid, serum (03/19/2021 12:55 PM CDT) Pathologist [facility] MMA 0.12 <=0.40 nmol/mL [facility] Comment: ADDITIONAL INFORMATION This test was developed and its performance characteristics determined by [facility] in a manner consistent with CLIA requirements. This test has not been cleared or approved by the U.S. Food and Drug Administration. Test Performed by: [address] [address] Meat Team Lead: Cam Farrell M.D. Ph.D.; CLIA# [id number] Blood specimen (specimen) 03/19/2021 12:55 PM CDT 03/19/2021 4:55 PM CDT us Nabila King MD LAB BLOOD ORDERABLES Final Result Performing Organization Address City/[facility]/ZIP Co de Phone Number [facility] [address] [place] [address] * Vitamin B12 (03/19/2021 12:55 PM CDT) Pathologist [facility] Vitamin B12 946 230 - 1,250 pg/mL [facility] Blood specimen (specimen) 03/19/2021 12:55 PM CDT 03/19/2021 4:54 PM CDT us Nabila King MD LAB BLOOD ORDERABLES Final Result Performing Organization Address [facility] Co de Phone Number [facility] [address] [place] [address] * Iron profile w/ IBC (03/19/2021 12:55 PM CDT) Pathologist [facility] Iron 114 35 - 145 mcg/dl [facility] TIBC 307 250 - 400 mcg/dL [facility] Transferrin saturation 37 20 - 50 % [facility] Blood specimen (specimen) 03/19/2021 12:55 PM CDT 03/19/2021 4:54 PM CDT us Nabila King MD LAB BLOOD ORDERABLES Final Result [address] [place], [place] [id number] * (ABNORMAL) CBC with auto differential (03/19/2021 12:55 PM CDT) WBC 5.6 3.8 - 9.9 K/cumm [facility] Hgb 15.3 11.9 - 15.5 g/dL [facility] Hct 48.0(H) 35.6 - 45.5 % [facility] Plt 241 150 - 400 K/cumm [facility] MPV 11.2 9.1 - 12.3 fL [facility] RBC 4.87 3.90 - 5.20 M/cumm [facility] MCV 98.6(H) 81.3 - 96.4 fL [facility] MCH 31.4 27.1 - 33.3 pg [facility] MCHC 31.9(L) 32.3 - 35.7 g/dL [facility] RDW CV 14.2 11.1 - 14.9 % [facility] RDW SD 51.9(H) 35.7 - 48.1 fL [facility] NRBC abs 0.00 0.00 - 0.01 K/cumm [facility] Blood specimen (specimen) 03/19/2021 12:55 PM CDT 03/19/2021 4:54 PM CDT us Nabila King MD LAB BLOOD ORDERABLES Final Result [facility] [address] [place] [address] * PTH (03/19/2021 12:55 PM CDT) Pathologist [facility] PTH 52 15 - 65 pg/mL [facility] Blood specimen (specimen) 03/19/2021 12:55 PM CDT 03/19/2021 4:54 PM CDT us Nabila King MD LAB BLOOD ORDERABLES Final Result Performing Organization Address [facility] Co de Phone Number FRANKIE [address] [place] [address] * Vitamin D 25 hydroxy (03/19/2021 12:55 PM CDT) Vitamin D 25-OH 59 30 - 80 ng/mL [facility] Blood specimen (specimen) 03/19/2021 12:55 PM CDT 03/19/2021 4:54 PM CDT us Nabila King MD LAB BLOOD ORDERABLES Final Result Performing Organization Address [facility] Co de Phone Number FRANKIE [address] [facility] [place] [address] * TSH (03/19/2021 12:55 PM CDT) Thyroid Stimulating Hormone 1.46 0.30 - 4.20 mcIUnit/mL [facility] Blood specimen (specimen) 03/19/2021 12:55 PM CDT 03/19/2021 4:54 PM CDT us Nabila King MD LAB BLOOD ORDERABLES Final Result Performing Organization Address [facility] Co de Phone Number FRANKIE [address] [facility] [place] [address] * T4, free (03/19/2021 12:55 PM CDT) Free T4 1.31 0.90 - 1.70 ng/dL [facility] Blood specimen (specimen) 03/19/2021 12:55 PM CDT 03/19/2021 4:54 PM CDT us Nabila King MD LAB BLOOD ORDERABLES Final Result Performing Organization Address City/[facility] [place] [address] [address] [place] [address] documented in this encounter Visit Diagnoses Diagnosis Hypothyroidism, adult Other specified acquired hypothyroidism History of osteoporosis Personal history of other musculoskeletal disorders Disorder of bone, unspecified Tiredness Other malaise and fatigue Nausea Nausea alone Paroxysmal A-fib (CMS/HCC) (HCC) documented in this encounter Care Teams Network Associate Relationship Specialty Start Date End Date Nabila King MD [address] [place] [address] PCP - General Internal Medicine 12/16/20 Christine Kendall MD Surgeon Ophthalmology 12/13/20 Sita Magana MD [facility] [address] [place] [address] Consulting Physician Internal Medicine 12/13/20 Regulo Pandey MD [facility] [address] [place] [address] Referring Physician Cardiovascular Disease 12/16/20 Gigi Méndez MD [facility] [address] [place] [address] Referring Physician Cardiology 02/18/21 documented as of this encounter
--- OUTSIDE RECORDS SUMMARY | 2024-08-09 17:49 | XMS_ITS | Encounter Summary ---
Author Organization [facility] Address [address] [place] [address] Phone Care Team Providers Care Clinical Partner Name Role Phone Christine Kendall MD Unavailable [phone] Sita Magana MD Unavailable [phone] Nabila King MD Primary Care Provider [phone] Regulo Pandey MD Unavailable Gigi Méndez MD Unavailable [phone] Encounter Details Date Type Department Care Team (Late st Contact Info) Description 09/20/2021 11:15 AM OUTDOOR LANDSCAPE ARCHITECT Office Visit [facility] [address] [place] [address] Christine Kendall MD [address] DEPT OPHTHALMOLOGY, [facility] [address] [place], [place] [id number] Low-tension glaucoma, bilateral, severe stage (Primary Dx); Nuclear senile cataract, right Social History Tobacco [...] on file Legal Sex Female 8:14 PM OUTDOOR LANDSCAPE ARCHITECT Gender Identity Not on file Sexual Orientation Not on file 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 OOR LANDSCAPE ARCHITECT documented in this encounter Ordered Prescriptions Prescription Sig Dispense Quantity Refills Last Filled Start Date End Date ketorolac (ACULAR LS) 0.4 % drops Administer 1 drop into both eyes 3 (three) times a day 5 mL 11 09/20/2021 3 documented in this encounter Progress Notes * Christine Kendall MD - 09/20/2021 11:15 AM CST Assessment/Plan Diagnoses and all orders for this visit: Low-tension glaucoma, bilateral, severe stage (Primary) Assessment & Plan: intraocular pressure (IOP) acceptable off meds status post (s/p) Trab both eyes (OU) F/U 6 months with Dyer visual field (HVF) 24-2 Nuclear senile cataract, right Assessment & Plan: Not VS- observe Other orders - ketorolac (ACULAR LS) 0.4 % drops; Administer 1 drop into both eyes 3 (three) times a day OOR LANDSCAPE ARCHITECT documented in this encounter Miscellaneous Notes * Assessment & Plan Note - Christine Kendall MD - 09/20/2021 6:46 PM OUTDOOR LANDSCAPE ARCHITECT Associated Problem(s): Low-tension glaucoma, bilateral, severe stage intraocular pressure (IOP) acceptable off meds status post (s/p) Trab both eyes (OU) F/U 6 months with Dyer visual field (HVF) 24-2 OOR LANDSCAPE ARCHITECT * Assessment & Plan Note - Christine Kendall MD - 09/20/2021 12:48 PM OUTDOOR LANDSCAPE ARCHITECT Associated Problem(s): Age-related nuclear cataract of right eye Not VS- observe OOR LANDSCAPE ARCHITECT documented in this encounter Plan of Treatment Not on file documented as of this encounter Visit Diagnoses Diagnosis Low-tension glaucoma, bilateral, severe stage- Primary Nuclear senile cataract, right documented in this encounter Discontinued Medications Medication Sig Discontinue Reason Start Date End Da te ketorolac (ACULAR LS) 0.4 % drops Administer 1 drop into both eyes 3 (three) times a day as needed (as needed) Reorder 08/12/2021 09/20/2021 documented as of this encounter Eye Exam Visual Acuity (Snellen - Linear) Right eye Left eye Dist sc 20/30 -2 20/30 +2 Tonometry (Applanation, 12:01 PM) Right eye Left eye Pressure 9.5 10.5 Defer to MD per pt. Pupils Dark Shape React APD Right eye 6.5 Round NR Left eye 5.5 Round Minimal None Visual Sung Right eye Left eye Full Restrictions Partial outer superior nasal, in ferior nasal deficiencies Extraocular Movement Right eye Left eye Full Full Neuro/Psych Oriented x3: Yes Mood/Affect: Normal Dilation Both eyes: 1.0% Mydriacyl @ 12:02 PM External Exam Right eye Left eye External [...] Normal Normal Periphery Normal Normal Care Teams Clinical Partner Relationship Specialty Start Date End Date Nabila King MD [address] [place] [address] PCP - General Internal Medicine 12/16/20 Christine Kendall MD Surgeon Ophthalmology 12/13/20 Sita Magana MD [address] [place] [address] Consulting Physician Internal Medicine 12/13/20 Regulo Pandey MD [address] [place] [address] Referring Physician Cardiovascular Disease 12/16/20 Gigi Méndez MD [address] [place] [address] Referring Physician Cardiology 02/18/21 documented as of this encounter
--- OUTSIDE RECORDS SUMMARY | 2024-08-09 17:49 | XMS_ITS | Encounter Summary ---
Author Organization [facility] Address [address] [facility] [address] [place] [address] Care Team Providers Care Dry Ice Machine Operator Name Role Phone Christine Kendall MD Unavailable [phone] Sita Magana MD Unavailable [phone] Nabila King MD Primary Care Provider + [phone] Regulo Pandey MD Unavailable Gigi Méndez MD Unavailable [phone] Reason for Visit * Reason Comments Follow-up 3 MONTH Encounter Details Date Type Department Care Team (Late st Contact Info) Description 07/20/2021 9:40 AM POND TENDER Office Visit [facility] [address] [place] [id number] Nabila King MD [address] [place] [address] Tachy-kelechi syndrome (CMS/HCC) (HCC) (Primary Dx); 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; 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 Social History Tobacco Use Types Packs/Day Years [...] on file Legal Sex Female 8:14 PM POND TENDER Gender Identity Not on file Sexual Orientation Not on file 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 Not on file documented as of this encounter Last Filed Vital Signs Vital Sign Reading Time Taken Comments Blood Pressure 124/78 07/20/2021 10:01 AM POND TENDER Pulse 68 07/20/2021 10:01 AM POND TENDER Regu lar Temperature 36.2 ??C (97.1 ??F) 07/20/2021 9:55 AM CS T Respiratory Rate 12 07/20/2021 9:55 AM POND TENDER Oxygen Saturation 97% 07/20/2021 9:55 AM POND TENDER Inhaled Oxygen Concentration - - Weight 54.9 kg (121 lb) 07/20/2021 9:55 AM POND TENDER Height - - Body Mass Index 20.77 05/21/2021 9:17 AM CDT documented in this encounter Patient Instructions * Patient Instructions* Nabila King MD - 07/20/2021 9:40 AM POND TENDER ORDERS FOR AMS STAFF TO ARRANGE 1. Free T4 TSH for three-month follow-up = hypothyroid adult 2. Refer [facility] physical therapy for rotator bilateral cuff disorder ORDERS FOR Lisa Conn TO ARRANGE 1. Immunization recommendation Tdap at the pharmacy 2. Tachy-kelechi sent I recommend pacemaker, followed by treatment of the fast rhythm with medications by your cardiology. contact me with the results of the consultation with your small machine bindery operator on Patient Care Team: Nabila King MD as PCP - General (Internal Medicine) Christine Kendall MD as Surgeon (Ophthalmology) Sita Magana MD as Consulting Physician (Internal Medicine) Regulo Pandey MD as Referring Physician (Cardiovascular Disease) Gigi Méndez MD as Referring Physician (Cardiology) Return in about 3 months (around 10/18/2021). Orders Placed This Encounter Procedures ??? T4, free ??? TSH ??? Ambulatory referral order to Physical Therapy - A brief review of all your problems, medications, and orders from today ICD-9-CM ICD-10-CM 1. 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 DT 03/21/2015 ??? Influenza, Quadrivalent, High Dose, Preservative Free, Intrr 06/17/2019, 05/01/2020, 06/28/2021 ??? Influenza, Trivalent, High Dose, Split, Preservative Free, Intramuscular 05/15/2014, 05/08/2016, 05/07/2017, 05/03/2018, 06/17/2019 ??? Influenza, Trivalent, Intramuscular 06/20/2012 ??? Influenza, Trivalent, Preservative Free, Intramuscular 05/22/2015 ??? Influenza, Unspecified 06/20/2012, 05/15/2014, 05/22/2015, 05/08/2016, 05/07/2017, 05/03/2018, 06/17/2019 ??? Pfizer SARS-CoV-2 Vaccination (12+ yrs) 10/13/2020, 11/03/2020, 07/08/2021 ??? Pneumococcal Conjugate PCV 13 05/08/2016 ??? Pneumococcal Conjugate, Unspecified 06/18/2008 ??? ZOSTER Recombinant 02/02/2018, 05/03/2018 Primary Pharmacy/DME suppliers: [address] - [address] [place] [address] PLEASE BRING IN ALL PILL BOTTLES TO EVERY OFFICE VISIT, THIS IS ESSENTIAL FOR ACCURATE REFILLS AND MAINTAINING AN ACCURATE MEDICATION LIST. PLEASE SIGN UP FOR [facility] so that you may have access to your labs and chart documentation IF YOU HAVE TROUBLE WITH THIS PROCESS CALL [phone] This is a copy the monitor to bring the heart doctor to discuss interventions for this problem of tachy-kelechi Thirty day CardioNet 07/08/2021 tachy-kelechi 1. 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 Free T4 TSH for three-month follow-up = hypothyroid adult 2. Refer [facility] physical therapy for rotator bilateral cuff disorder ORDERS FOR Lsia Conn TO ARRANGE 1. Immunization recommendation Tdap at the pharmacy 2. Tachy-kelechi sent I recommend pacemaker, followed by treatment of the fast rhythm with medications by your cardiology. contact me with the results of the consultation with your small machine bindery operator on Patient Care Team: Nabila King MD as PCP - General (Internal Medicine) Christine Kendall MD as Surgeon (Ophthalmology) Sita Magana MD as Consulting Physician (Internal Medicine) Regulo Pandey MD as Referring Physician (Cardiovascular Disease) Gigi Méndez MD as Referring Physician (Cardiology) Return in about 3 months (around 10/18/2021). Orders Placed This Encounter Procedures ??? T4, free ??? TSH ??? Ambulatory referral order to Physical Therapy - A brief review of all your problems, medications, and orders from today ICD-9-CM ICD-10-CM 1. Tachy-kelechi syndrome (CMS/[facility]) ([facility]) 427.81 I49.5 2. 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 DT 03/21/2015 ??? Influenza, Quadrivalent, High Dose, Preservative Free, Intrr 06/17/2019, 05/01/2020, 06/28/2021 ??? Influenza, Trivalent, High Dose, Split, Preservative Free, Intramuscular 05/15/2014, 05/08/2016, 05/07/2017, 05/03/2018, 06/17/2019 ??? Influenza, Trivalent, Intramuscular 06/20/2012 ??? Influenza, Trivalent, Preservative Free, Intramuscular 05/22/2015 ??? Influenza, Unspecified 06/20/2012, 05/15/2014, 05/22/2015, 05/08/2016, 05/07/2017, 05/03/2018, 06/17/2019 ??? Pfizer SARS-CoV-2 Vaccination (12+ yrs) 10/13/2020, 11/03/2020, 07/08/2021 ??? Pneumococcal Conjugate PCV 13 05/08/2016 ??? Pneumococcal Conjugate, Unspecified 06/18/2008 ??? ZOSTER Recombinant 02/02/2018, 05/03/2018 Primary Pharmacy/DME suppliers: [facility] - [place], [place] - [address] [place] [id number] PLEASE BRING IN ALL PILL BOTTLES TO EVERY OFFICE VISIT, THIS IS ESSENTIAL FOR ACCURATE REFILLS AND MAINTAINING AN ACCURATE MEDICATION LIST. PLEASE SIGN UP FOR [facility] so that you may have access to your labs and chart documentation IF YOU HAVE TROUBLE WITH THIS PROCESS CALL [phone] This is a copy the monitor to bring the heart doctor to discuss interventions for this problem of tachy-kelechi Thirty day CardioNet 07/08/2021 tachy-kelechi 1. Predominant rhythm is normal sinus rhythm [...] Signed By: Dr Gordo Sr 2021-07-08 09:51:57 POND TENDER CHIEF COMPLAINT Follow-up (3 MONTH) HISTORY OF [...] information. ORDERS FROM LAST VISIT WITH ME 04/19/2021 1. Results of the sleep study done in [place] connected with [facility] about 10 years ago ?? ORDERS FOR Lisa Conn TO ARRANGE 1. Immunization recommendation High-dose flu shot in May ? 2. Medication changes --Fluoxetine 10 mg 1 tablet daily for especially anxiety provoking days that may also be associatedwith palpitations from the Afib ?? DETAILS REGARDING THIS VISIT: Lisa reports feeling poorly with multiple episodes of feeling poorly dizzy fatigued and having episodes of palpitations : 1. Tachy-kelechi syndrome (CMS/HCC) ([facility]) Advised to follow-up with her small machine bindery operator as scheduled on to discuss pacemaker followed by medications to treat the tachycardia. She agrees and is willing to proceed 2. 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 She is down to Synthroid at 0.5. We expect the free T4 TSH to evenout as she had been on 50 all came with 100 every other day. Will have her back in 3 months and recheck her labs and the cardiac related issue levothyroxine (SYNTHROID) 50 mcg tablet; Take 1 tablet (50 mcg total) by mouth nightly Dispense: 100 tablet; Refill: 1 3. 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 She does have any evidence of any shot induced problems. Poor posture is a likely aggravating this problem, very tight pectoral muscles are found. She will require some physical therapy to resolve the pain problem. No meds are necessary. Tachy-kelechi June 2021 30 day CardioNet SOCIAL HISTORY Social History Tobacco Use ??? Smoking status: Never Smoker ??? Smokeless tobacco: Never Used Substance Use Topics ??? Alcohol use: No REVIEW OF SYSTEMS Review of Systems Constitutional: Positive for fatigue (With palpitations). Negative for activity change, appetite change, fever and unexpected weight change. HENT: Negative for congestion, dental problem, hearing loss, postnasal drip, sinus pressure, sore throat and trouble swallowing. Eyes: Negative for pain, discharge, itching and visual disturbance. Respiratory: Negative for cough, chest tightness, shortness of breath and wheezing. Cardiovascular: Positive for palpitations. Negative for chest pain. Gastrointestinal: Negative for abdominal distention, abdominal pain, anal bleeding, blood in stool,constipation, diarrhea, nausea, rectal pain and vomiting. Endocrine: Negative for cold intolerance, heat intolerance and polyuria. Genitourinary: Negative for difficulty urinating, dysuria, flank pain, frequency, hematuria, menstrual problem, pelvic pain and vaginal discharge. Musculoskeletal: Positive for arthralgias ( bilateral shoulders). Negative for gait problem, joint swelling and myalgias. Skin: Negative for color change and rash. Neurological: Negative for dizziness, weakness and headaches. Hematological: Negative for adenopathy. Does not bruise/bleed easily. Psychiatric/Behavioral: Negative for behavioral problems, dysphoric mood and sleep disturbance. Thepatient is not nervous/anxious. MEDICATIONS CHANGED / CLEANED UP THIS VISIT Medications Discontinued During This Encounter Medication Reason ??? FLUoxetine (PROzac) 10 mg tablet/capsule Therapy completed ??? levothyroxine (SYNTHROID) 50 mcg tablet Reorder MEDICATION LIST AT CONCLUSION OF THIS VISIT Current Outpatient Medications Ordered in [facility] Medication Sig Dispense Refill ??? apixaban [...] by mouth nightly 100 tablet 1 ??? melatonin 5 mg capsule take 1 tablet every night before bed 0 ??? multivitamin capsule Take 1 capsule by mouth daily ??? magnesium oxide,aspartate,citr 400 mg magnesium capsule Take by mouth (Patient not taking: Reported on 07/20/2021) No current [facility]-ordered facility-administered medications on file. ALLERGIES is allergic to clarithromycin, metronidazole, sulfa (sulfonamide antibiotics), and chloramphenicol. PHYSICAL EXAM body mass index is 20.77 kg/m??. Vitals: 07/20/21 0955 07/20/21 1001 BP: 114/80 124/78 BP Location: Left arm Patient Position: Sitting Pulse: (!) 140 68 Resp: 12 Temp: 36.2 ??C (97.1 ??F) TempSrc: Temporal SpO2: 97% Weight: 54.9 kg (121 lb) Physical Exam Vitals reviewed. Constitutional: General: She is not in acute distress. Appearance: Normal appearance. She is well-developed. HENT: Head: Normocephalic. Right Ear: Tympanic membrane [...] Thyroid: No thyromegaly. Cardiovascular: Rate and Rhythm: Tachycardia present. Rhythm irregular. Pulses: Normal pulses. Heart sounds: Normal heart sounds. No murmur heard. No gallop. Comments: Episode of fast AFib during the initial office visit resolved during the office visit Pulmonary: Effort: Pulmonary effort is normal. Breath sounds: Normal breath sounds. No wheezing, rhonchi or rales. Abdominal: General: Bowel sounds are normal. Palpations: Abdomen is soft. There is no mass. Tenderness: There is no abdominal tenderness. Hernia: No hernia is present. Musculoskeletal: General: Tenderness ( tenderness bilateral pectoral muscles) and deformity (Forward rolled shoulderposture) present. Cervical back: Normal range of motion. Right [...] Nerves: No cranial nerve deficit. Motor: No abnormal muscle tone. Coordination: Coordination normal. Psychiatric: Mood and Affect: Mood normal. [...] BLOOD WORK REVIEWED WITH Lisa Conn TODAY Thirty day CardioNet 07/08/2021 tachy-kelechi 1. Predominant rhythm is normal sinus rhythm [...] rates as fast 153 beats per minute. Component Date Value Ref Range Status ??? [...] culture not met. Final ??? TSH 05/21/2021 0.11* 0.30 - 4.20 mcIUnit/mL Final ??? Free [...] - 1.77 ng/dL Final ??? TSH 06/18/2021 0.227* 0.450 - 4.500 uIU/mL Final Lab on [...] ??? 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 Dizziness R42 Nabila King M.D. 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 documented in this encounter Results * TSH (10/11/2021 11:18 AM POND TENDER) TSH 1.670 0.450 - 4.500 uIU/mL [facility] - 01 Blood specimen (specimen) 10/11/2021 11:18 AM POND TENDER 10/11/2021 Narrative [facility] - 10/12/2021 9:36 AM POND TENDER Performed at: ??01 - [facility] [address] ??[id number] [employer]: Darek Farrell PhD, Phone: ??[phone] us Nabila King MD LAB BLOOD ORDERABLES Final Result [facility] - 01 * T4, free (10/11/2021 11:18 AM POND TENDER) T4,Free(Direct) 1.31 0.82 - 1.77 ng/dL [facility] - Blood specimen (specimen) 10/11/2021 11:18 AM POND TENDER 10/11/2021 Narrative [facility] - 10/12/2021 9:36 AM POND TENDER Performed at: ??01 - [facility] [address] ??[id number] [employer]: Darek Farrell PhD, Phone: ??[phone] us Nabila King MD LAB BLOOD ORDERABLES Final Result [facility] - 01 documented in this encounter Visit Diagnoses Diagnosis Tachy-kelechi syndrome (CMS/HCC) (HCC)- Primary Sinoatrial node dysfunction 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 documented in this encounter Discontinued Medications Medication Sig Discontinue Reason Start Date End Da te FLUoxetine (PROzac) 10 mg tablet/capsuleIndication s:Adjustment disorder with anxiety Take 1 tablet/capsule (10 mg total) by mouth daily Therapy completed 04/19/2021 07/20/2021 levothyroxine (SYNTHROID) 50 mcg tabletIndications:Hypoth yroidism due to Alan's thyroiditis Take 1-2 tablets (50-100 mcg total) by mouth nightly 1TABLET ON ODD # DAYS, 2 ON EVEN # DAYS Reorder 04/19/2021 07/20/2021 documented as of this encounter Care Teams Dry Ice Machine Operator Relationship Specialty Start Date End Date Nabila King MD [address] [facility] [address] [address] PCP - General Internal Medicine 12/16/20 Christine Kendall MD Surgeon Ophthalmology 12/13/20 Sita Magana MD [address] [facility] [address] [place] [address] Consulting Physician Internal Medicine 12/13/20 Regulo Pandey MD [address] [facility] [address] [place] [address] Referring Physician Cardiovascular Disease 12/16/20 Gigi Méndez MD [address] [facility] [address] [place] [address] Referring Physician Cardiology 02/18/21 documented as of this encounter
--- OUTSIDE RECORDS SUMMARY | 2024-08-09 17:50 | XMS_ITS | Encounter Summary ---
Author Organization [facility] Care Team Providers Care Field Research Associate Name Role Phone Jason Winters MD Primary Care Provider [phone] Encounter Details Date Type Department Care Team (Latest Contact Info) Description 10/28/2019 Travel Social History Tobacco Use Types Packs/Day Years Used Date Smoking Tobacco: Never Smokeless Tobacco: Never Alcohol Use Standard Drinks/Week Comments No 0 (1 standard drink = 0.6 oz pur e alcohol) Comments Unknown Sex and Gender Information Value Date Recorded Sex Assigned at Not on file Legal Sex Female 8:14 PM DIRECTOR CLIENT Gender Identity Not on file Sexual Orientation Not on file documented as of this encounter Plan of Treatment Not on file documented as of this encounter Visit Diagnoses Not on filedocumented in this encounter Care Teams Field Research Associate Relationship Specialty Start Date End Date Jason Winters MD [address] [place] [address] PCP - General Family Medicine 07/23/18 12/15/20 documented as of this encounter
--- OUTSIDE RECORDS SUMMARY | 2024-08-09 17:50 | XMS_ITS | Encounter Summary ---
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, severe stage Procedures Dyer Visual Field - OU - Both Eyes Christine Kendall MD Phone: tel: fax: [facility] [address] [place] [address] Phone: tel: Referral ID Status Reason Start Date Expiration Date Visits Re quested Visits Authorized [id number] Closed 01/18/2018 08/07/2019 1 1 Encounter Details Date Type Department Care Team (Late st Contact Info) Description 01/18/2018 Orders Only [facility] [address] [facility] [address] [place] [address] Noelle Squires Low-tension glaucoma of right eye, severe stage (Primary Dx); Low-tension glaucoma of left eye, severe stage Social History Tobacco Use Types Packs/Day Years Used Date Smoking Tobacco: Never Alcohol Use Standard Drinks/Week Comments No 0 (1 standard drink = 0.6 oz pur e alcohol) Comments Unknown Sex and Gender Information Value Date Recorded Sex Assigned at Not on file Legal Sex Female 8:14 PM PROVIDER ENROLLMENT SPECIALIST Gender Identity Not on file Sexual Orientation Not on file documented as of this encounter Plan of Treatment Not on file documented as of this encounter Results * Dyer Visual Field - OU - Both Eyes (01/22/2018 9:57 PM CDT) Anatomical Region Laterality Modality Head Other Narrative 01/22/2018 9:57 PM CDT Right Eye Fixation was poor. Fixation was poor. Reliability was poor. Progression has been stable. Foveal threshold was normal. Findings include inferior arcuate defect. Left Eye Fixation was poor. Fixation was poor. Reliability was poor. Progression has been stable. Foveal threshold was normal. Findings include inferior arcuate defect. 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
--- OUTSIDE RECORDS SUMMARY | 2024-08-09 17:50 | XMS_ITS | Encounter Summary ---
Author Organization [facility] Address [address] [place] [address] Phone Care Team Providers Care Malt Specifications Control Assistant Name Role Phone Jason Winters MD Primary Care Provider [phone] Christine Kendall MD Unavailable [phone] Sita Magana MD Unavailable [phone] Nabila King MD Primary Care Provider + [phone] Regulo Pandey MD Unavailable Gigi Méndez MD Unavailable [phone] Bc Martinez MD Unavailable [phone] Bc Martinez MD Unavailable [phone] Martin Correa MD Unavailable [phone] Gildardo Gonzáles Si, MD Unavailable Encounter Details Date Type Department Care Team (Late st Contact Info) Description 02/09/2018 Orders Only [facility] [address] [place] [address] Nabila King MD [address] [place] [address] Social History Tobacco Use Types Packs/Day Years Used Date Smoking Tobacco: Never Alcohol Use Standard Drinks/Week Comments No 0 (1 standard drink = 0.6 oz pur e alcohol) Comments Unknown Sex and Gender Information Value Date Recorded Sex Assigned at Not on file Legal Sex Female 8:14 PM TREE SCOUT Gender Identity Not on file Sexual Orientation Not on file documented as of this encounter Plan of Treatment Not on file documented as of this encounter Procedures Procedure Name Priority Date/Time Associated Diagnosis Comments SCAN - RADIOLOGY/IMAGING 02/09/2018 documented in this encounter Results * SCAN - RADIOLOGY/IMAGING (02/09/2018) Anatomical Region Laterality Modality Other us Nabila King MD Final Resu lt documented in this encounter Visit Diagnoses Not on filedocumented in this encounter Care Teams Malt Specifications Control Assistant Relationship Specialty Start Date End Date Jason Winters MD [address] [place] [address] PCP - General Family Medicine 07/23/18 12/15/20 Nabil[facility] King [facility] [address] [place] [address] PCP - General Internal Medicine 12/16/20 Christine Kendall MD [address] [place] [address] Surgeon Ophthalmology 12/13/20 Sita Magana MD [facility] [address] [place] [address] Consulting Physician Internal Medicine 12/13/20 Regulo Pandey MD [address] [place] [address] Referring Physician Cardiovascular Disease 12/16/20 Gigi Méndez MD [address] [place] [address] Referring Physician Cardiology 02/18/21 Bc Martinez MD [address] [place] [address] Consulting Physician Cardiology 10/22/21 08/21/23 Bc Martinez MD [address] [place] [address] Referring Physician Cardiology 08/22/23 Martin Correa MD [address] [place] [address] Consulting Physician Cardiothoracic Surgery 08/22/23 [facility] [address] [facility] [address] Consulting Physician Neurology 07/09/24 documented as of this encounter
--- OUTSIDE RECORDS SUMMARY | 2024-08-09 17:50 | XMS_ITS | Encounter Summary ---
Author Organization [facility] Address [address] [place] [address] Phone Care Team Providers Care Catalyst Operator Name Role Phone Jason Winters MD Primary Care Provider [phone] Encounter Details Date Type Department Care Team (Late st Contact Info) Description 04/26/2019 9:15 AM CDT Office Visit [facility] Ophthalmology [address] Medical Office Building [address] [place] [address] Christine Kendall MD [address] 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 Gender Identity Not on file Sexual Orientation Not on file documented as of this encounter Ordered Prescriptions Prescription Sig Dispense Quantity Refills Last Filled Start Date End Date loteprednol (LOTEMAX) 0.5 % ophthalmic suspension Administer 1 drop into both eyes as needed (Uses for irritation) 5 mL 6 04/26/2019 9 documented in this encounter Progress Notes * Christine Kendall MD - 04/26/2019 9:15 AM CDT Assessment/Plan Diagnoses and all orders for this visit: Low-tension glaucoma, bilateral, severe stage (Primary) Assessment & Plan: intraocular pressure (IOP) acceptable status post (s/p) trab both eyes (OU)- pt just noticed 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 Nuclear senile cataract, right Assessment & Plan: Not VS- observe Other orders - loteprednol (LOTEMAX) 0.5 % ophthalmic suspension; Administer 1 drop into both eyes as needed (Uses for irritation) documented in this encounter Miscellaneous Notes * Assessment & Plan Note - Christine Kendall MD - 04/27/2019 4:23 PM CDT Associated Problem(s): Age-related nuclear cataract of right eye Not VS- observe * Assessment & Plan Note - Christine Kendall MD - 04/27/2019 4:22 PM CDT Associated Problem(s): Low-tension glaucoma, bilateral, severe stage intraocular pressure (IOP) acceptable status post (s/p) trab both eyes (OU)- pt just noticed 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 documented in this encounter Plan of Treatment Not on file documented as of this encounter Visit Diagnoses Diagnosis Low-tension glaucoma, bilateral, severe stage- Primary Nuclear senile cataract, right documented in this encounter Discontinued Medications Medication Sig Discontinue Reason Start Date End Da te loteprednol (LOTEMAX) 0.5 % ophthalmic suspension Administer 1 drop into both eyes as needed (Uses for irritation) Reorder 04/26/2019 04/26/2019 documented as of this encounter Historical Medications * This list may reflect changes made after this encounter. LORazepam (ATIVAN) 1 mg tablet Take 1 mg by mouth daily 0 03/29/2019 12/14/2020 added in this encounter Eye Exam Visual Acuity (Snellen - Linear) Right eye Left eye Dist sc 20/50 -2 20/25 +2 Dist ph sc 20/20 -2 Tonometry (Applanation, 10:15 AM) Right eye Left eye Pressure 8.5 11.5 Requests MD Pupils Dark Shape React APD Right eye 6 Round Minimal None Left eye 5 Round Minimal None Visual Sung Right eye Left eye Restrictions Total inferior nasal deficiency; Partial outer superior temporal, inferior temporal deficiencies Partial outer inferior temporal, inferior nasal deficiencies Extraocular Movement Right eye Left eye Full Full Neuro/Psych Oriented x3: Yes Mood/Affect: Normal External Exam Right eye Left eye External Normal Normal Slit Lamp Exam Right eye Left eye Lids/Lashes Normal Normal Conjunctiva/Sclera Diffuse bleb Yue negati ve bleb, 1 mm extension onto corneal surface, Diffuse bleb Cornea Clear Clear Anterior Chamber Deep and quiet Deep and quiet Iris Round and reactive Round and kiel ctive Lens 2+ Nuclear sclerosis Posterior c hamber intraocular lens Vitreous Vitreous syneresis Vitreous syne resis Fundus Exam Right eye Left eye C/D Ratio 1.0 0.95 Care Teams Catalyst Operator Relationship Specialty Start Date End Date Jason Winters MD [address] [place] [address] PCP - General Family Medicine 07/23/18 12/15/20 documented as of this encounter
--- OUTSIDE RECORDS SUMMARY | 2024-08-09 17:50 | XMS_ITS | Encounter Summary ---
Author Organization [facility] Address [address] [place] [address] Phone Care Team Providers Care Cloth Shrinking Supervisor Name Role Phone Jason Winters MD Primary Care Provider [phone] Encounter Details Date Type Department Care Team (Late st Contact Info) Description 01/09/2018 Orders Only [facility] Ophthalmology 10 [facility] Medical Office Building [address] [place] [address] Marlys Garcia Social History Tobacco Use Types Packs/Day Years Used Date Smoking Tobacco: Never Alcohol Use Standard Drinks/Week Comments No 0 (1 standard drink = 0.6 oz pur e alcohol) Comments Unknown Sex and Gender Information Value Date Recorded Sex Assigned at Not on file 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 cholecalciferol (VITAMIN D-3) 2,000 unit tablet 3,000 Units 2020 added in this encounter Care Teams Cloth Shrinking Supervisor Relationship Specialty Start Date End Date Jason Winters MD [address] [place] [address] PCP - General 11/18/16 01/17/18 documented as of this encounter
--- OUTSIDE RECORDS SUMMARY | 2024-08-09 17:50 | XMS_ITS | Encounter Summary ---
Author Organization [facility] Address [address] [place] [address] Phone Care Team Providers Care Junior Java Developer Name Role Phone Jason Winters MD Primary Care Provider [phone] Reason for Visit * Reason Onset Date Comments cancel shanon 01/27/2020 Pt cancel appoin tment Encounter Details Date Type Department Care Team (Late st Contact Info) Description 01/27/[address] Medical Office Building [address] [place] [address] Teresita Batres CMA cancel shanon (Pt cancel appointment) Social History Tobacco Use Types Packs/Day Years Used Date Smoking Tobacco: Never Smokeless Tobacco: Never Alcohol Use Standard Drinks/Week Comments No 0 (1 standard drink = 0.6 oz pur e alcohol) Comments Unknown Sex and Gender Information Value Date Recorded Sex Assigned at Not on file 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 documented in this encounter Plan of Treatment Not on file documented as of this encounter Visit Diagnoses Not on filedocumented in this encounter Care Teams Junior Java Developer Relationship Specialty Start Date End Date Jason Winters MD [address] [place] [address] PCP - General Family Medicine 07/23/18 12/15/20 documented as of this encounter
--- OUTSIDE RECORDS SUMMARY | 2024-08-09 17:50 | XMS_ITS | Encounter Summary ---
Author Organization [facility] Address [address] [place] [address] Care Team Providers Care Daylight Driller Name Role Phone Unavailable Primary Care Provider Unavailabl e Encounter Details Date Type Department Care Team (Latest Contact Info) Description 01/18/2018 Documentation Ophthalmology Dodie Bear COMT Social History Tobacco Use Types Packs/Day Years Used Date Smoking Tobacco: Never Alcohol Use Standard Drinks/Week Comments No 0 (1 standard drink = 0.6 oz pur e alcohol) Comments Unknown Sex and Gender Information Value Date Recorded Sex Assigned at Not on file 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
--- OUTSIDE RECORDS SUMMARY | 2024-08-09 17:50 | XMS_ITS | Encounter Summary ---
Author Organization [facility] Address [address] [place] [address] Phone Care Team Providers Care General Warehouse Worker Name Role Phone Jason Winters MD Primary Care Provider [phone] Encounter Details Date Type Department Care Team (Late st Contact Info) Description 05/06/2019 Orders Only 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 Gender Identity Not on file Sexual Orientation Not on file documented as of this encounter Ordered Prescriptions Prescription Sig Dispense Quantity Refills Last Filled Start Date End Date loteprednol (LOTEMAX) 0.5 % ophthalmic suspension Administer 1 drop into both eyes as needed (Uses for irritation) 15 mL 3 05/06/2019 0 documented in this encounter Plan of Treatment Not on file documented as of this encounter Visit Diagnoses Not on filedocumented in this encounter Discontinued Medications Medication Sig Discontinue Reason Start Date End Da te loteprednol (LOTEMAX) 0.5 % ophthalmic suspension Administer 1 drop into both eyes as needed (Uses for irritation) Reorder 04/26/2019 05/06/2019 documented as of this encounter Care Teams General Warehouse Worker Relationship Specialty Start Date End Date Jason Winters MD [address] [place] [address] PCP - General Family Medicine 07/23/18 12/15/20 documented as of this encounter
--- OUTSIDE RECORDS SUMMARY | 2024-08-09 17:50 | XMS_ITS | Encounter Summary ---
Author Organization [facility] Address [address] [place] [address] Phone Care Team Providers Care Real Estate Salesperson Name Role Phone Jason Winters MD Primary Care Provider [phone] Christine Kendall MD Unavailable [phone] Sita Magana MD Unavailable [phone] Encounter Details Date Type Department Care Team (Late st Contact Info) Description 12/14/2020 10:00 AM CDT Imaging Exam [facility] Ophthalmology [address] [facility] Medical Office Building [address] [place] [address] Low-tension glaucoma, bilateral, severe stage Social History [...] on file 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 Gender Identity Not on file Sexual Orientation Not on file documented as of this encounter Plan of Treatment Not on file documented as of this encounter Procedures Procedure Name Priority Date/Time Associated Diagnosis Comments DYER VISUAL FIELD - OU - BOTH EYES Routine 12/14/2020 10:36 AM CDT Low-tension glaucoma, bilateral, severe stage documented in this encounter Results * Dyer Visual Field - OU - Both Eyes (12/14/2020 10:36 AM CDT) Mean Deviation OS -13.49 db Mean Deviation OD -14.41 db Pattern Deviation OS 13.86 db Pattern Deviation OD 11.66 db Anatomical Region Laterality Modality Head Visual Field Narrative 12/14/2020 11:30 AM CDT Right Eye Fixation was good. Cooperation was borderline. Reliability was good. Progression has been stable. Foveal threshold was normal. Findings include inferior arcuate defect, superior paracentral defect. Mean Deviation was -14.41 db. Pattern Deviation was 11.66 db. Left Eye Fixation was good. Cooperation was borderline. Reliability was good. Progression has been stable. Foveal threshold was normal. Findings include inferior arcuate defect. Mean Deviation was -13.49 db. Pattern Deviation was 13.86 db. Christine Kendall MD OPHTH VISUAL FIELD Final Result documented in this encounter Visit Diagnoses Diagnosis Low-tension glaucoma, bilateral, severe stage documented in this encounter Care Teams Real Estate Salesperson Relationship Specialty Start Date End Date Jason Winters MD [address] [place] [address] PCP - General Family Medicine 07/23/18 12/15/20 Christine Kendall MD [address] [place] [address] Surgeon Ophthalmology 12/13/20 Sita Magana MD 10 [facility] [address] [place] [address] Consulting Physician Internal Medicine 12/13/20 documented as of this encounter
--- OUTSIDE RECORDS SUMMARY | 2024-08-09 17:50 | XMS_ITS | Encounter Summary ---
Author Organization [facility] Address [address] [place] [address] Phone Care Team Providers Care School Commissioner Name Role Phone Jason Winters MD Primary Care Provider [phone] Christine Kendall MD Unavailable [phone] Sita Magana MD Unavailable [phone] Nabila King MD Primary Care Provider [phone] Regulo Pandey MD Unavailable Gigi Mnédez MD Unavailable [phone] Bc Martinez MD Unavailable [phone] Bc Martinez MD Unavailable [phone] Martin Correa MD Unavailable [phone] Gildardo Gonzáles Si, MD Unavailable Encounter Details Date Type Department Care Team (Late st Contact Info) Description 03/12/2019 Orders Only [facility] [address] [place] [address] Nabila King MD [address] [place] [address] Social History Tobacco Use Types Packs/Day Years Used Date Smoking Tobacco: Never Smokeless Tobacco: Never Alcohol Use Standard Drinks/Week Comments No 0 (1 standard drink = 0.6 oz pur e alcohol) Comments Unknown Sex and Gender Information Value Date Recorded Sex Assigned at Not on file 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 Gender Identity Not on file Sexual Orientation Not on file documented as of this encounter Plan of Treatment Not on file documented as of this encounter Procedures Procedure Name Priority Date/Time Associated Diagnosis Comments SCAN - RADIOLOGY/IMAGING 03/12/2019 documented in this encounter Results * SCAN - RADIOLOGY/IMAGING (03/12/2019) Anatomical Region Laterality Modality Other us Nabila King MD Final Resu lt documented in this encounter Visit Diagnoses Not on filedocumented in this encounter Care Teams School Commissioner Relationship Specialty Start Date End Date Jason Winters MD [address] [place] [address] PCP - General Family Medicine 07/23/18 12/15/20 Nabila King MD [facility] [address] [place] [address] PCP - General Internal Medicine 12/16/20 Christine Kendall MD [address] [place] [address] Surgeon Ophthalmology 12/13/20 Sita Magana MD [facility] [address] [place] [address] Consulting Physician Internal Medicine 12/13/20 Regulo Pandey MD [address] [place] [address] Referring Physician Cardiovascular Disease 12/16/20 Gigi Méndez MD [address] [place] [address] Referring Physician Cardiology 02/18/21 Bc Martinez MD [address] [place] [address] Consulting Physician Cardiology 10/22/21 08/21/23 Bc Martinez MD [address] [place] [address] Referring Physician Cardiology 08/22/23 Martin Correa MD [address] [place] [address] Consulting Physician Cardiothoracic Surgery 08/22/23 NiviaGildardo Si, MD [address] [facility] [place] [address] Consulting Physician Neurology 07/09/24 documented as of this encounter
--- OUTSIDE RECORDS SUMMARY | 2024-08-09 17:50 | XMS_ITS | Encounter Summary ---
Author Organization [facility] Healthcare Address [address] [place] [address] Care Team Providers Care Floor Cashier Name Role Phone Christine Kendall MD Unavailable [phone] Sita Magana MD Unavailable [phone] Nabila King MD Primary Care Provider [phone] Regulo Pandey MD Unavailable Encounter Details Date Type Department Care Team (Late st Contact Info) Description 12/16/2020 7:10 PM CDT Lab [facility] [address] [place] [address] Mitral valve disease; Multiple-type hyperlipidemia; Hypothyroidism, adult Social History Tobacco Use Types Packs/Day Years [...] file Legal Sex Female 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 Gender Identity Not on file Sexual Orientation Not on file 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 Not on file documented as of this encounter Plan of Treatment Not on file documented as of this encounter Procedures Procedure Name Priority Date/Time Associated Diagnosis Comments EGFR Routine 12/16/2020 4:29 PM CDT Mitral valve disease Multiple-type hyperlipidemia CRP, HIGH SENSITIVITY Routine 12/16/2020 4:29 PM CDT Mitral valve disease Multiple-type hyperlipidemia TSH Routine 12/16/2020 4:29 PM CDT Hypothyroidism, adult T4, FREE Routine 12/16/2020 4:29 PM CDT Hypothyroidism, adult CHOLESTEROL, LDL, DIRECT Routine 12/16/2020 4:29 PM CDT Mitral valve disease Multiple-type hyperlipidemia COMPREHENSIVE METABOLIC PANEL Routine 12/16/2020 4:29 PM CDT Mitral valve disease Multiple-type hyperlipidemia documented in this encounter Results * eGFR (12/16/2020 4:29 PM CDT) [facility] eGFR 76 mL/min/1.7 3 m2 FRANKIE MOTLEY Comment: Interpretive [...] was last reviewed 2020 Blood specimen (specimen) 12/16/2020 4:29 PM CDT 12/16/2020 8:11 PM CDT Nabila King MD LAB BLOOD ORDERABLES Final Result Performing Organization Address [facility] de Phone Number FRANKIE MOTLEY [address] [place] [address] * Cholesterol, LDL, direct (12/16/2020 4:29 PM CDT) LDL Cholesterol, Direct 122 <=129 mg/dL [facility] Comment: Interpretive Data [...] Data was last revised on 2018. Blood specimen (specimen) 12/16/2020 4:29 PM CDT 12/16/2020 7:15 PM CDT Nabila King MD LAB BLOOD ORDERABLES Final Result Performing Organization Address [facility] de Phone Number FRANKIE MOTLEY [address] Department [email or web address] [address] * Comprehensive metabolic panel (12/16/2020 4:29 PM CDT) Sodium 139 135 - 145 mmol/L [facility] Potassium, pl 4.5 3.3 - 4.9 mmol/L [facility] Chloride 100 97 - 110 mmol/L [facility] CO2 28 22 - 32 mmol/L [facility] Anion gap 11 2 - 15 mmol/L [facility] BUN 17 8 - 25 mg/dL [facility] Creatinine 0.73 0.60 - 1.10 mg/dL [facility] Glucose 86 70 - 199 mg/dL [facility] Comment: [...] interpretive data was last revised 2017. Calcium 10.2 8.5 - 10.3 mg/dL [facility] Bilirubin, total 0.4 0.1 - 1.2 mg/dL [facility] Protein, pl 7.4 6.5 - 8.5 g/dL [facility] Albumin 4.6 3.5 - 5.0 g/dL [facility] Alk phos 71 40 - 130 Units/L [facility] ALT 24 7 - 45 Units/L [facility] AST 27 10 - 45 Units/L [facility] Blood specimen (specimen) 12/16/2020 4:29 PM CDT 12/16/2020 7:15 PM CDT us Nabila King MD LAB BLOOD ORDERABLES Final Result FRANKIE [address] [place] [address] * (ABNORMAL) T4, free (12/16/2020 4:29 PM CDT) Free T4 0.87(L) 0.90 - 1.70 ng/dL [facility] Blood specimen (specimen) 12/16/2020 4:29 PM CDT 12/16/2020 7:15 PM CDT us Nabila King MD LAB BLOOD ORDERABLES Final Result Performing Organization Address City/[facility]/ZIP Co de Phone Number [facility] [address] [email or web address] [address] * (ABNORMAL) TSH (12/16/2020 4:29 PM CDT) Thyroid Stimulating Hormone 5.94(H) 0.30 - 4.20 mcIUnit/mL [facility] Blood specimen (specimen) 12/16/2020 4:29 PM CDT 12/16/2020 7:15 PM CDT us Nabila King MD LAB BLOOD ORDERABLES Final Result Performing Organization Address [facility] de Phone Number [facility] [address] [email or web address] [address] * CRP (cardiac risk) (12/16/2020 4:29 PM CDT) Pathologist [facility] hsCRP 1.64 mg/L [facility] Comment: Interpretive data Adult only - values greater than or equal to 10 mg/L are consistent with infection or inflammation. ?? Individuals with evidence of active infection, systemic inflammatory processes, or trauma should not be tested until these conditions have abated. When using HS CRP to assess cardiovascular risk, two measurements should be taken, two weeks apart (averaging results). ?? The CDC/AHA recommended the following HS CRP cut off points (tertiles) for CVD assessment. ? Adult low risk ? <1.0 mg/L Average risk ??1.0 - 3.0 mg/L High Risk ?>3.0 mg/L Current interpretive data was last revised on 2018. Testing performed by: [facility], [address] [facility], [place]., [address] Blood specimen (specimen) 12/16/2020 4:29 PM CDT 12/17/2020 12:31 PM CDT us Nabila King MD LAB BLOOD ORDERABLES Final Result FRANKIE [address] [facility] [place] [address] documented in this encounter Visit Diagnoses Diagnosis Mitral valve disease Other and unspecified mitral valve diseases Multiple-type hyperlipidemia Other and unspecified hyperlipidemia Hypothyroidism, adult Other specified acquired hypothyroidism documented in this encounter Care Teams Floor Cashier Relationship Specialty Start Date End Date Nabila King MD [address] [place] [address] PCP - General Internal Medicine 12/16/20 Christine Kendall MD Surgeon Ophthalmology 12/13/20 Sita Magana MD [address] [place] [address] Consulting Physician Internal Medicine 12/13/20 Regulo Pandey MD [address] [place] [address] Referring Physician Cardiovascular Disease 12/16/20 documented as of this encounter
--- OUTSIDE RECORDS SUMMARY | 2024-08-09 17:50 | XMS_ITS | Encounter Summary ---
Author Organization [facility] Address [address] [facility] [address] [place] [address] Care Team Providers Care Finance Associate Name Role Phone Christine Kendall MD Unavailable [phone] Sita Magana MD Unavailable [phone] Nabila King MD Primary Care Provider + [phone] Regulo Pandey MD Unavailable Encounter Details Date Type Department Care Team (Late st Contact Info) Description 12/16/2020 4:30 PM CDT Lab [facility] [address] [place] [address] Palpitation Social History Tobacco Use Types Packs/Day Years [...] file 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 Gender Identity Not on file Sexual Orientation Not on file 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 Not on file documented as of this encounter Plan of Treatment Not on file documented as of this encounter Visit Diagnoses Diagnosis Palpitation Palpitations documented in this encounter Care Teams Finance Associate Relationship Specialty Start Date End Date Nabila King MD [address] [place] [address] [facility] [address] [place] [address] PCP - General Internal Medicine 12/16/20 Christine Kendall MD Surgeon Ophthalmology 12/13/20 Sita Magana MD [address] [place] [address] Consulting Physician Internal Medicine 12/13/20 Regulo Pandey MD [address] [place] [address] Referring Physician Cardiovascular Disease 12/16/20 documented as of this encounter
--- OUTSIDE RECORDS SUMMARY | 2024-08-09 17:50 | XMS_ITS | Encounter Summary ---
Author Organization [facility] Address [address] [place] [address] Phone Care Team Providers Care Assistant Operations Manager Name Role Phone Jason Winters MD Primary Care Provider [phone] Christine Kendall MD Unavailable [phone] Sita Magana MD Unavailable [phone] Nabila King MD Primary Care Provider + [phone] Regulo Pandey MD Unavailable Gigi Méndez MD Unavailable [phone] Bc Martinez MD Unavailable [phone] Bc Martinez MD Unavailable [phone] Martin Correa MD Unavailable [phone] Gildardo Gonzáles Si, MD Unavailable Encounter Details Date Type Department Care Team (Late st Contact Info) Description 08/03/2018 Orders Only [facility] [address] [place] [address] Nabila King MD [address] [place] [address] Social History Tobacco Use Types Packs/Day Years Used Date Smoking Tobacco: Never Alcohol Use Standard Drinks/Week Comments No 0 (1 standard drink = 0.6 oz pur e alcohol) Comments Unknown Sex and Gender Information Value Date Recorded Sex Assigned at Not on file 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 Gender Identity Not on file Sexual Orientation Not on file documented as of this encounter Plan of Treatment Not on file documented as of this encounter Procedures Procedure Name Priority Date/Time Associated Diagnosis Comments SCAN - RADIOLOGY/IMAGING 08/03/2018 documented in this encounter Results * SCAN - RADIOLOGY/IMAGING (08/03/2018) Anatomical Region Laterality Modality Other us Nabila King MD Final Resu lt documented in this encounter Visit Diagnoses Not on filedocumented in this encounter Care Teams Assistant Operations Manager Relationship Specialty Start Date End Date Jason Winters MD [address] [place] [address] PCP - General Family Medicine 07/23/18 12/15/20 Nabila King MD [address] [place] [address] [address] [place] [address] PCP - General Internal Medicine 12/16/20 Christine Kendall MD [address] [place] [address] Surgeon Ophthalmology 12/13/20 Sita Magana MD [facility] [address] [place] [address] Consulting Physician Internal Medicine 12/13/20 Regulo Pandey MD [address] [place] [address] Referring Physician Cardiovascular Disease 12/16/20 Gigi Méndez MD [address] [place] [address] Referring Physician Cardiology 02/18/21 Bc Martinez MD [address] [place] [address] Consulting Physician Cardiology 10/22/21 08/21/23 Bc Martinez MD [address] [place] [address] Referring Physician Cardiology 08/22/23 Martin Correa MD [address] [place] [address] Consulting Physician Cardiothoracic Surgery 08/22/23 [facility] [address] [place] [address] Consulting Physician Neurology 07/09/24 documented as of this encounter
--- OUTSIDE RECORDS SUMMARY | 2024-08-09 17:50 | XMS_ITS | Encounter Summary ---
Author Organization [facility] Address [address] [facility] [address] [place] [address] Care Team Providers Care Director Education Name Role Phone Christine Kendall MD Unavailable [phone] Sita Magana MD Unavailable [phone] Nabila King MD Primary Care Provider Regulo Pandey MD Unavailable Encounter Details Date Type Department Care Team (Late st Contact Info) Description 12/29/2020 Telephone [facility] [address] [place] [address] Nabila King MD [address] [place] [address] Social History Tobacco Use Types Packs/Day Years [...] on file 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 If he did please send me that report. If he did not please let me know he did not do a cystoscopy * Telephone Encounter - Kim Bajwa - 01/05/2021 11:16 AM CDT Requested records from Dr Sagastume office and never received the records. * Telephone Encounter - Kim Bajwa - 12/29/2020 3:54 PM CDT Ambulatory referral faxed to Dr Queen office. * Telephone Encounter - Jolene Carson RN - 12/29/2020 11:55 AM CDT TOADM:Advise referral to Dr. 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 re evaluation * Telephone Encounter - Kim Bajwa - 12/29/2020 9:39 AM CDT Request faxed over for records. * Telephone Encounter - Kim Bajwa. - 12/29/2020 9:39 AM CDT ----- Message from Nabila King MD sent at 12/28/2020 3:51 PM CDT ----- Regarding: Records review found hematuria evaluation, need more information records from previous physicians reviewed: I need further information on the following issues, please ask for her to sign release of records 1. hematuria evaluation February 2019 LEX Cavanaugh, I need his office notes including thecystoscopy record. 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 She is older but safe for a knocks copy. Advise referral to Dr. Queen or if he is not available then Dr. Jeff or Miguelangel for anoscopy re-evaluation of this area. Full colonoscopy is probably not necessary at 85, this will be reviewed with thegastroenterologist. documented in this encounter Plan of Treatment Not on file documented as of this encounter Visit Diagnoses Not on filedocumented in this encounter Care Teams Director Education Relationship Specialty Start Date End Date Nabila King MD [address] [facility] [address] [place] [address] PCP - General Internal Medicine 12/16/20 Christine Kendall MD Surgeon Ophthalmology 12/13/20 Sita Magana MD [address] [facility] [address] [place] [address] Consulting Physician Internal Medicine 12/13/20 Regulo Pandey MD [address] [facility] [address] [place] [address] Referring Physician Cardiovascular Disease 12/16/20 documented as of this encounter
--- OUTSIDE RECORDS SUMMARY | 2024-08-09 17:50 | XMS_ITS | Encounter Summary ---
Author Organization [facility] Address [address] [place] [address] Care Team Providers Care Quality Supervisor Name Role Phone Unavailable Primary Care Provider Unavailabl e Encounter Details Date Type Department Care Team (Latest Contact Info) Description 02/09/2018 7:43 AM CDT Hospital Encounter [facility] OP Yasir Griggs MD [address] [facility] [address] [address] Low back pain; Radiculopathy of lumbar region; Spondylolisthesis of lumbar region; Other biomechanical lesions of lumbar region Social History Tobacco Use Types Packs/Day Years Used Date Smoking Tobacco: Never Alcohol Use Standard Drinks/Week Comments No 0 (1 standard drink = 0.6 oz pur e alcohol) Comments Unknown Sex and Gender Information Value Date Recorded Sex Assigned at Not on file 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 1 estrogens-methylT ESTOSTERone (COVARYX H.S.) 0.625-1.25 mg per tablet take 1 tablet by oral route every 2 days for 21 consecutive days, followed by 7 days off 0 0 10/15/2013 1 ketorolac (ACULAR LS) 0.4 % drops Administer 1 drop into both eyes as needed. 8 levothyroxine (SYNTHROID) 25 mcg tablet take 1 by Oral route every day 0 08/31/2012 8 LORazepam (ATIVAN) 0.5 mg tablet take 1 Tablet (0.5MG) by oral route every day as needed 0 06/15/2012 1 loteprednol (LOTEMAX) 0.5 % ophthalmic suspension Administer 1 drop into both eyes as needed. 09/23/2016 9 melatonin 5 mg capsule take 1 tablet every night before bed 0 06/15/2012 2 polyvinyl alcohol (LUBRICANT EYE, POLYV ALCOHOL,) 1.4 % ophthalmic solution Administer 1 drop into both eyes as needed. 1 VITAMIN B COMPLEX ORAL Take 1 tablet by mouth daily 04/05/2016 1 documented as of this encounter Plan of Treatment Not on file documented as of this encounter Procedures Procedure Name Priority Date/Time Associated Diagnosis Comments MRI LUMBAR SPINE WO CONTRAST Routine 02/09/2018 7:50 AM CDT documented in this encounter Results * MRI Lumbar Spine WO Contrast (02/09/2018 7:50 AM CDT) Anatomical Region Laterality Modality Spine N/A Magnetic Resonan ce 02/09/2018 7:50 AM CDT Impressions 02/09/2018 9:21 AM CDT 1.Very mild degenerative spondylolisthesis at L4-5 with facet joint arthropathy. 2.Moderate degenerative neural foraminal stenosis on the left at L5-S1. THIS IS AN ELECTRONICALLY VERIFIED FINAL REPORT 02/09/2018 9:19 AM - Electronically signed by Jeff Romero M.D. CR: CR D: ??02/09/2018 9:19 AM T: ??02/09/2018 9:19 AM Report ID: [id number] Reading Location: ??[id number] [EOD] Narrative 02/09/2018 9:21 AM CDT EXAM DESCRIPTION: ??MRI Lumbar REASON FOR STUDY: ??Intermittent low back pain for 5 years recently worsening. TECHNIQUE: Sagittal and Axial imaging includes T1, T2, STIR sequences. COMPARISON: ??None available FINDINGS: SEGMENTATION: No transitional anatomy. The lowest well-developed disc space is labeled L5-S1. ALIGNMENT: There is very mild spondylolisthesis at L4-5. VERTEBRAE: Vertebral body height well-maintained. Normal appearing marrow. DISC HEIGHT: Well-maintained. HARDWARE: None in the spine. CORD AND CONUS: Normal in size and signal intensity. Conus at the appropriate level. LOWER THORACIC: Incompletely imaged. No stenosis seen. INDIVIDUAL DISC LEVELS: L1-2: No diffuse disc bulge or focal herniation. No significant spinal canal or neuroforaminal stenosis. L2-3: Minimal diffuse disc bulge. L3-4: No diffuse disc bulge or focal herniation. No significant spinal canal or neuroforaminal stenosis. L4-5: Moderate to severe facet joint arthropathy but no spinal canal or neural foraminal stenosis. L5-S1: Mild right and moderate left facet joint arthropathy. ??Moderate degenerative left neural foraminal stenosis from facet arthropathy with loss of disc height endplate osteophyte and minimal diffuse disc bulge. SACRUM: Incidental moderate-sized perineural cysts in the mid to upper sacral spinal canal. VISUALIZED UPPER ABDOMEN: No significant abnormality. OTHER: No other significant findings. Procedure Note Provider, MD Vito - 01/05/2021 EXAM DESCRIPTION: MRI Lumbar REASON FOR STUDY: Intermittent low back pain for 5 years recentlyworsening. TECHNIQUE: Sagittal and Axial imaging includes T1, T2, STIR sequences. COMPARISON: None available FINDINGS: SEGMENTATION: No transitional anatomy. The lowest well-developed discspace is labeled L5-S1. ALIGNMENT: There is very mild spondylolisthesis at L4-5. VERTEBRAE: Vertebral body height well-maintained. Normal appearingmarrow. DISC HEIGHT: Well-maintained. HARDWARE: None in the spine. CORD AND CONUS: Normal in size and signal intensity. Conus at theappropriate level. LOWER THORACIC: Incompletely imaged. No stenosis seen. INDIVIDUAL DISC LEVELS: L1-2: No diffuse disc bulge or focal herniation. No significant spinalcanal or neuroforaminal stenosis. L2-3: Minimal diffuse disc bulge. L3-4: No diffuse disc bulge or focal herniation. No significant spinalcanal or neuroforaminal stenosis. L4-5: Moderate to severe facet joint arthropathy but no spinal canal orneural foraminal stenosis. L5-S1: Mild right and moderate left facet joint arthropathy. Moderate degenerative left neural foraminal stenosis from facet arthropathy withloss of disc height endplate osteophyte and minimal diffuse disc bulge. SACRUM: Incidental moderate-sized perineural cysts in the mid to uppersacral spinal canal. VISUALIZED UPPER ABDOMEN: No significant abnormality. OTHER: No other significant findings. IMPRESSION: 1.Very mild degenerative spondylolisthesis at L4-5 with facet joint arthropathy. 2.Moderate degenerative neural foraminal stenosis on the left at L5-S1. THIS IS AN ELECTRONICALLY VERIFIED FINAL REPORT 02/09/2018 9:19 AM - Electronically signed by Jeff Romero M.D. CR: KAYLA Report ID: [id number] Reading Location: [id number] [EOD] Yasir Griggs MD IMG MRI PROCEDURES Final Res ult documented in this encounter Visit Diagnoses Diagnosis Low back pain Lumbago Radiculopathy of lumbar region Spondylolisthesis of lumbar region Other biomechanical lesions of lumbar region documented in this encounter
--- OUTSIDE RECORDS SUMMARY | 2024-08-09 17:50 | XMS_ITS | Encounter Summary ---
Author Organization [facility] Address [address] [place] [address] Phone Care Team Providers Care Senior Animal Trainer Name Role Phone Jason Winters MD Primary Care Provider [phone] Reason for Visit * (Routine) - Closed Specialty Diagnoses / Procedures Referred By Contac t Referred To Contact Diagnoses Low-tension glaucoma, bilateral, severe stage Procedures Dyer Visual Field - OU - Both Eyes Christine Kendall MD Phone: tel: fax: [facility] (All Locations) Referral ID Status Reason Start Date Expiration Date Visits Re quested Visits Authorized [id number] Closed 01/21/2019 08/01/2020 1 1 Encounter Details Date Type Department Care Team (Late st Contact Info) Description 10/28/2019 10:20 AM CDT Imaging Exam [facility] Ophthalmology [address] [facility] [address] [place] [phone] Low-tension glaucoma, bilateral, severe stage Social History Tobacco Use Types Packs/Day Years Used Date Smoking Tobacco: Never Smokeless Tobacco: Never Alcohol Use Standard Drinks/Week Comments No 0 (1 standard drink = 0.6 oz pur e alcohol) Comments Unknown Sex and Gender Information Value Date Recorded Sex Assigned at Not on file 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 Gender Identity Not on file Sexual Orientation Not on file documented as of this encounter Plan of Treatment Not on file documented as of this encounter Procedures Procedure Name Priority Date/Time Associated Diagnosis Comments DYER VISUAL FIELD - OU - BOTH EYES Routine 10/28/2019 10:59 AM CDT Low-tension glaucoma, bilateral, severe stage documented in this encounter Results * Dyer Visual Field - OU - Both Eyes (10/28/2019 10:59 AM CDT) Mean Deviation OS -14.58 db Mean Deviation OD -15.96 db Pattern Deviation OS 13.77` db Pattern Deviation OD 11.32 db Anatomical Region Laterality Modality Head Other Narrative 10/28/2019 12:12 PM CDT Right Eye Fixation was good. Cooperation was good. Reliability was good. Progression has been stable. Foveal threshold was normal. Findings include superior arcuate defect, inferior arcuate defect. Mean Deviation was -15.96 db. Pattern Deviation was 11.32 db. Left Eye Fixation was good. Cooperation was good. Reliability was good. Progression has been stable. Foveal threshold was normal. Findings include inferior arcuate defect. Mean Deviation was -14.58 db. Pattern Deviation was 13.77` db. Notes No change compared to 2013 us Christine Kendall MD OPHTH VISUAL FIELD Final Result documented in this encounter Visit Diagnoses Diagnosis Low-tension glaucoma, bilateral, severe stage documented in this encounter Care Teams Senior Animal Trainer Relationship Specialty Start Date End Date Jason Winters MD [address] [place] [address] PCP - General Family Medicine 07/23/18 12/15/20 documented as of this encounter
--- OUTSIDE RECORDS SUMMARY | 2024-08-09 17:50 | XMS_ITS | Encounter Summary ---
Author Organization [facility] Address [address] [facility] [address] [place] [address] Care Team Providers Care Esol Instructor Name Role Phone Christine Kendall MD Unavailable [phone] Sita Magana MD Unavailable [phone] Nabila King MD Primary Care Provider Regulo Pandey MD Unavailable Encounter Details Date Type Department Care Team (Late st Contact Info) Description 12/28/2020 Telephone [facility] [address] [place] [address] Nabila King MD [address] [place] [address] Social History Tobacco Use Types Packs/Day Years [...] on file 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 Gender Identity Not on file Sexual Orientation Not on file 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 Cbn: [phone] documented in this encounter Plan of Treatment Not on file documented as of this encounter Visit Diagnoses Not on filedocumented in this encounter Care Teams Esol Instructor Relationship Specialty Start Date End Date Nabila King MD [address] [place] [address] [address] [place] [address] PCP - General Internal Medicine 12/16/20 Christine Kendall MD Surgeon Ophthalmology 12/13/20 Sita Magana MD [address] [place] [address] [address] [place] [address] Consulting Physician Internal Medicine 12/13/20 Regulo Pandey MD [address] [place] [address] [address] [place] [address] Referring Physician Cardiovascular Disease 12/16/20 documented as of this encounter
--- OUTSIDE RECORDS SUMMARY | 2024-08-09 17:50 | XMS_ITS | Encounter Summary ---
Author Organization [facility] Address [address] [place] [address] Phone Care Team Providers Care Cook Mayonnaise Name Role Phone Jason Winters MD Primary Care Provider [phone] Christine Kendall MD Unavailable [phone] Sita Magana MD Unavailable [phone] Nabila King MD Primary Care Provider [phone] Regulo Pandey MD Unavailable Gigi Méndez MD Unavailable [phone] Bc Martinez MD Unavailable [phone] Bc Martinez MD Unavailable [phone] Martin Correa MD Unavailable [phone] Gildardo Gonzáles Si, MD Unavailable Encounter Details Date Type Department Care Team (Late st Contact Info) Description 01/31/2019 Orders Only [facility] [address] [employer] [place] [address] Nabila King MD [address] [place] [address] Social History Tobacco Use Types Packs/Day Years Used Date Smoking Tobacco: Never Smokeless Tobacco: Never Alcohol Use Standard Drinks/Week Comments No 0 (1 standard drink = 0.6 oz pur e alcohol) Comments Unknown Sex and Gender Information Value Date Recorded Sex Assigned at Not on file 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 Gender Identity Not on file Sexual Orientation Not on file documented as of this encounter Plan of Treatment Not on file documented as of this encounter Procedures Procedure Name Priority Date/Time Associated Diagnosis Comments SCAN - RADIOLOGY/IMAGING 01/31/2019 documented in this encounter Results * SCAN - RADIOLOGY/IMAGING (01/31/2019) Anatomical Region Laterality Modality Other us Nabila iKng MD Final Resu lt documented in this encounter Visit Diagnoses Not on filedocumented in this encounter Care Teams Cook Mayonnaise Relationship Specialty Start Date End Date Jason Winters MD [address] [place] [address] PCP - General Family Medicine 07/23/18 12/15/20 Nabila King MD [facility] [address] [place] [address] PCP - General Internal Medicine 12/16/20 Christine Kendall MD [address] [place] [address] Surgeon Ophthalmology 12/13/20 Sita Magana MD [facility] [address] [place] [address] Consulting Physician Internal Medicine 12/13/20 Regulo Pandey MD [address] [place] [address] Referring Physician Cardiovascular Disease 12/16/20 Gigi Méndez MD [address] [place] [address] Referring Physician Cardiology 02/18/21 Bc Martinez MD [address] [place] [address] Consulting Physician Cardiology 10/22/21 08/21/23 Bc Martinez MD [address] [place] [address] Referring Physician Cardiology 08/22/23 Martin Correa MD [address] [place] [address] Consulting Physician Cardiothoracic Surgery 08/22/23 NiviaGildardo Si, MD [address] [facility] [place] [address] Consulting Physician Neurology 07/09/24 documented as of this encounter
--- OUTSIDE RECORDS SUMMARY | 2024-08-09 17:50 | XMS_ITS | Encounter Summary ---
Author Organization [facility] Address [address] [place] [address] Phone Care Team Providers Care Chair Frame Builder Name Role Phone Jason Winters MD Primary Care Provider [phone] Reason for Visit * Reason Onset Date Comments problem 12/23/2019 Encounter Details Date Type Department Care Team (Late st Contact Info) Description 12/23/2019 Telephone [facility] Replaced by [facility] [place] [address] Christine Kendall MD [address] 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 I suggested refrigerating her artificial tears and if that offers no relief to try Zaditor. We discussed it works best if she uses it EVERY day. Keep scheduled follow-up * Telephone Encounter - Sania Linares MD - 12/23/2019 2:18 PM CDT Called and number only ringed, no voicemail, no pick-up. Will try again later. * Telephone Encounter - Henok Moore COA - 12/23/2019 10:44 AM CDT Please advise. Thank you. * Telephone Encounter - Ivory June - 12/23/2019 10:29 AM CDT Call back [phone] OU itchy scratchy feels like sandpaper and burning possible allergies has tried pataday, Lotemax Ketoralac has not helped. Was seeing if the there is anything else she could try. documented in this encounter Plan of Treatment Not on file documented as of this encounter Visit Diagnoses Not on filedocumented in this encounter Care Teams Chair Frame Builder Relationship Specialty Start Date End Date Jason Winters MD [address] [place] [id number] PCP - General Family Medicine 07/23/18 12/15/20 documented as of this encounter
--- OUTSIDE RECORDS SUMMARY | 2024-08-09 17:50 | XMS_ITS | Encounter Summary ---
Author Organization [facility] Address [address] [place] [address] Phone Care Team Providers Care Car Supervisor Name Role Phone Jason Winters MD Primary Care Provider [phone] Encounter Details Date Type Department Care Team (Late st Contact Info) Description 10/28/2019 10:45 AM CDT Office Visit [facility] [address] [facility] Medical Office Building [address] [place] [address] Christine Kendall MD [address] [facility] DEPT OPHTHALMOLOGY, [facility] [address] [place] [address] Low-tension glaucoma, bilateral, severe stage (Primary Dx); Nuclear senile cataract, right; Squamous blepharitis of upper and lower eyelids of both eyes Social History Tobacco Use Types Packs/Day Years Used Date Smoking Tobacco: Never Smokeless Tobacco: Never Alcohol Use Standard Drinks/Week Comments No 0 (1 standard drink = 0.6 oz pur e alcohol) Comments Unknown Sex and Gender Information Value Date Recorded Sex Assigned at Not on file 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 Gender Identity Not on file Sexual Orientation Not on file documented as of this encounter Patient Instructions * Patient Instructions* Amy Berrios - 10/28/2019 10:45 AM CDT documented in this encounter Progress Notes * Christine Kendall MD - 10/28/2019 10:45 AM CDT Assessment/Plan Diagnoses and all orders for this visit: Low-tension glaucoma, bilateral, severe stage (Primary) Assessment & Plan: intraocular pressure (IOP) acceptable CPM Dyer visual field (HVF) very reliable and stable F/U 6 months- check BAT right eye (OD) - DFE Nuclear senile cataract, right Assessment & Plan: Not VS- observe Squamous blepharitis of upper and lower eyelids of both eyes Assessment & Plan: Mild rosacea- to undergo trial of Doxy 50 mg/day 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 documented in this encounter Miscellaneous Notes * Assessment & Plan Note - Christine Kendall MD - 10/28/2019 12:13 PM CDT Associated Problem(s): Squamous blepharitis of both eyes (Resolved 06/23/2024) Mild rosacea- to undergo trial of Doxy 50 mg/day 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 * Assessment & Plan Note - Christine Kendall MD - 10/28/2019 12:12 PM CDT Associated Problem(s): Age-related nuclear cataract of right eye Not VS- observe * Assessment & Plan Note - Christine Kendall MD - 10/28/2019 12:11 PM CDT Associated Problem(s): Low-tension glaucoma, bilateral, severe stage intraocular pressure (IOP) acceptable CPM Dyer visual field (HVF) very reliable and stable F/U 6 months- check BAT right eye (OD) - DFE documented in this encounter Plan of Treatment Not on file documented as of this encounter Visit Diagnoses Diagnosis Low-tension glaucoma, bilateral, severe stage- Primary Nuclear senile cataract, right Squamous blepharitis of upper and lower eyelids of both eyes documented in this encounter Eye Exam Visual Acuity (Snellen - Linear) Right eye Left eye Dist sc 20/30 -2 20/30 -1 Tonometry (Applanation, 12:09 PM) Right eye Left eye Pressure 7 12 Pt defers Tech IOP chk, only wants CJS to check. Pupils Dark Light Shape React APD Right eye 6 Round NR None Left eye 5 4.5 Round Minimal None Visual Sung (Counting fingers) Right eye Left eye Full Restrictions Partial outer superior temporal, inferior temporal deficiencies Saw no defect OS w/ CVF Extraocular Movement Right eye Left eye Full [...] rhage C/D Ratio 1.0 0.95 Care Teams Car Supervisor Relationship Specialty Start Date End Date Jason Winters MD [address] [place] [id number] PCP - General Family Medicine 07/23/18 12/15/20 documented as of this encounter
--- OUTSIDE RECORDS SUMMARY | 2024-08-09 17:50 | XMS_ITS | Encounter Summary ---
Author Organization [facility] Address [address] [place] [address] Phone Care Team Providers Care Children'S Tutor Name Role Phone Unavailable Primary Care Provider Unavailabl e Reason for Visit * Reason Comments Routine Glaucoma Follow Up Encounter Details Date Type Department Care Team (Late st Contact Info) Description 01/22/2018 10:45 AM CDT Office Visit [facility] [address] [facility] Medical Office Building [address] [place] [address] Christine Kendall MD [address] DEPT OPHTHALMOLOGY, [facility] [address] [place] [address] Low-tension glaucoma, bilateral, severe stage (Primary Dx); Nuclear senile cataract, right; 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; Pseudophakia Social History Tobacco Use Types Packs/Day Years Used Date Smoking Tobacco: Never Alcohol Use Standard Drinks/Week Comments No 0 (1 standard drink = 0.6 oz pur e alcohol) Comments Unknown Sex and Gender Information Value Date Recorded Sex Assigned at Not on file 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 Pseudophakia Lens replaced by other means documented in this encounter Eye Exam Visual Acuity (Snellen - Linear) Right eye Left eye Dist sc 20/40 -2 20/30 -2 Dist ph sc 20/25 20 -1 Tonometry (Applanation, 12:33 PM) Right eye Left eye Pressure 5 10.5 Pachymetry (01/22/2018) Right eye Left eye Thickness [phone] Pupils Dark Light APD Right eye 6 MIN - Left eye 6 MIN - Visual Sung Right eye Left eye Restrictions Total inferior nasal deficiency; Partial outer superior temporal deficiency Partial outer inferior temporal, inferior nasal deficiencies Extraocular Movement Right eye Left eye Full, Nystagmus Full, Nystagmus Neuro/Psych Oriented x3: Yes External Exam Right eye Left eye External Normal Normal Slit Lamp Exam Right eye Left eye Lids/Lashes Normal Normal Conjunctiva/Sclera Diffuse bleb Yue negati ve bleb, Diffuse bleb Cornea Clear Clear Anterior Chamber Deep and quiet Deep and quiet Iris Round and reactive Round and kiel ctive Lens 2+ Nuclear sclerosis Posterior c hamber intraocular lens Fundus Exam Right eye Left eye C/D Ratio 1.0 0.95 Strabismus Exam Nystagmus: Yes
--- OUTSIDE RECORDS SUMMARY | 2024-08-09 17:50 | XMS_ITS | Encounter Summary ---
Author Organization [facility] Address [address] [facility] [address] [place] [address] Care Team Providers Care Process Pumper Name Role Phone Christine Styles MD Unavailable Sita Magana MD Unavailable [phone] Nabila King MD Primary Care Provider [phone] Regulo Pandey MD Unavailable Reason for Visit * Reason Comments New Patient Encounter Details Date Type Department Care Team (Late st Contact Info) Description 12/16/2020 2:20 PM CDT Office Visit [facility] [address] [place] [address] Nabila King MD [address] [place] [address] Acute on chronic diastolic heart failure (CMS/HCC) (Primary Dx); Ventricular septal defect (VSD); Nonrheumatic aortic valve insufficiency; Mitral valve disease; Palpitation; Adjustment insomnia; Squamous blepharitis of upper and lower eyelids of both eyes; Hypothyroidism, adult; Multiple-type hyperlipidemia Social History Tobacco Use Types [...] on file Legal Sex 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 Gender Identity Not on file Sexual Orientation Not on file 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 Not on file documented as of this encounter Last Filed Vital Signs Vital Sign Reading Time Taken Comments Blood Pressure 120/70 12/16/2020 2:38 PM CDT Pulse 53 12/16/2020 2:38 PM CDT Temperature 36.6 ??C (97.9 ??F) 12/16/2020 2:38 PM CD T Respiratory Rate 12 12/16/2020 2:38 PM CDT Oxygen Saturation 97% 12/16/2020 2:38 PM CDT Inhaled Oxygen Concentration - - Weight 54.4 kg (120 lb) 12/16/2020 2:38 PM CDT Height 165.1 cm (5' 5 ) 12/16/2020 2:38 PM CDT Body Mass Index 19.97 12/16/2020 2:38 PM CDT documented in this encounter Patient Instructions * Patient Instructions* Nabila King MD - 12/16/2020 2:20 PM CDT ORDERS FOR AMS STAFF TO [...] for sleep and nerves 2. Visit with media center director school in review the 2018 echocardiogram with the valvular problems and especially the VSD Review the palpitations symptoms, I would recommend 30 day CardioNet Patient Care Team: Nabila King MD as PCP - General (Internal Medicine) Christine Styles MD as Surgeon (Ophthalmology) Sita Magana MD as Consulting Physician (Internal Medicine) Regulo Pandey MD as Referring Physician (Cardiovascular Disease) Return in about 3 months (around 03/17/2021) for Recheck. Orders Placed This Encounter Procedures ??? Cholesterol, LDL, direct ??? Comprehensive metabolic panel ??? T4, free ??? TSH ??? CRP (cardiac risk) A brief review of all your problems, medications, and orders from today ICD-9-CM ICD-10-CM 1. Acute on chronic diastolic heart failure (CMS/HCC) 428.33 I50.33 2. Ventricular septal defect (VSD) 745.4 Q21.0 3. Nonrheumatic aortic valve insufficiency 424.1 I35.1 4. Mitral valve disease 394.9 I05.9 Cholesterol, LDL, direct Comprehensive metabolic panel CRP (cardiac risk) 5. Palpitation 785.1 R00.2 6. Adjustment insomnia 307.41 F51.02 traZODone (DESYREL) 50 mg tablet 7. Squamous blepharitis of upper and lower eyelids of both eyes 373.02 H01.02A H01.02B 8. Hypothyroidism, adult 244.9 E03.9 levothyroxine (SYNTHROID) 50 mcg tablet T4, free TSH 9. Multiple-type hyperlipidemia 272.4 E78.2 Cholesterol, LDL, direct Comprehensive metabolic panel CRP (cardiac risk) For your records I have provided this immunization report Immunization History Administered Date(s) Administered ??? DT 03/21/2015 ??? Influenza, Quadrivalent, High Dose, Preservative Free, Intrr 05/01/2020 ??? Influenza, Trivalent, High Dose, Split, Preservative Free, Intramuscular 05/15/2014, 05/08/2016, 05/07/2017, 05/03/2018, 06/17/2019 ??? Influenza, Trivalent, Intramuscular 06/20/2012 ??? Influenza, Trivalent, Preservative Free, Intramuscular 05/22/2015 ??? Pfizer SARS-CoV-2 Vaccination 10/13/2020, 11/03/2020 ??? Pneumococcal Conjugate PCV 13 05/08/2016 ??? Pneumococcal Conjugate, Unspecified 06/18/2008 ??? ZOSTER Recombinant 02/02/2018, 05/03/2018 Primary Pharmacy/DME suppliers: [facility] - [place], [place] - [address] [place] [address] [address] [facility] [address] [facility] - [place], [place] - [address] [place] [address] [address] [facility] [address] PLEASE BRING IN ALL PILL BOTTLES TO EVERY OFFICE VISIT, THIS IS ESSENTIAL FOR ACCURATE REFILLS AND MAINTAINING AN ACCURATE MEDICATION LIST. PLEASE SIGN UP FOR MyCSADIAT so that you may have access to your labs and chart documentation IF YOU HAVE TROUBLE WITH THIS PROCESS CALL [phone] Review this echocardiogram with her media center director school at next follow-up in ask if you have a VSD that needs any further attention for antibiotics with dental work or medication treatment or updated echo. Also ask for you get the diagnosis of diastolic heart failure Found on echo 2018 associated with pulmonary [...] mild pulmonary hypertension. documented in this encounter Ordered Prescriptions Prescription Sig Dispense Quantity Refills Last Filled Start Date End Date levothyroxine (SYNTHROID) 50 mcg tabletIndications: Hypothyroidism, adult Take 1 tablet (50 mcg total) by mouth mortgage protection specialist before breakfast 90 tablet 3 12/16/2020 1 traZODone (DESYREL) 50 mg tabletIndications: Adjustment insomnia Take 0.25 tablets (12.5 mg total) by mouth nightly 15 tablet 3 12/16/2020 1 documented in this encounter Progress Notes * Nabila King MD - 12/16/2020 2:20 PM CDT ASSESSMENT AND PLAN: Assessment and plan were shared with this patient as part of the AVS PATIENT INSTRUCTIONS Patient Instructions ORDERS FOR AMS STAFF TO [...] for sleep and nerves 2. Visit with media center director school in review the 2018 echocardiogram with the valvular problems and especially the VSD Review the palpitations symptoms, I would recommend 30 day CardioNet Patient Care Team: Nabila King MD as PCP - General (Internal Medicine) Christine Styles MD as Surgeon (Ophthalmology) Sita Magana MD as Consulting Physician (Internal Medicine) Regulo Pandey MD as Referring Physician (Cardiovascular Disease) Return in about 3 months (around 03/17/2021) for Recheck. Orders Placed This Encounter Procedures ??? Cholesterol, LDL, direct ??? Comprehensive metabolic panel ??? T4, free ??? TSH ??? CRP (cardiac risk) A brief review of all your problems, medications, and orders from today ICD-9-CM ICD-10-CM 1. Acute on chronic diastolic heart failure (CMS/HCC) 428.33 I50.33 2. Ventricular septal defect (VSD) 745.4 Q21.0 3. Nonrheumatic aortic valve insufficiency 424.1 I35.1 4. Mitral valve disease 394.9 I05.9 Cholesterol, LDL, direct Comprehensive metabolic panel CRP (cardiac risk) 5. Palpitation 785.1 R00.2 6. Adjustment insomnia 307.41 F51.02 traZODone (DESYREL) 50 mg tablet 7. Squamous blepharitis of upper and lower eyelids of both eyes 373.02 H01.02A H01.02B 8. Hypothyroidism, adult 244.9 E03.9 levothyroxine (SYNTHROID) 50 mcg tablet T4, free TSH 9. Multiple-type hyperlipidemia 272.4 E78.2 Cholesterol, LDL, direct Comprehensive metabolic panel CRP (cardiac risk) For your records I have provided this immunization report Immunization History Administered Date(s) Administered ??? DT 03/21/2015 ??? Influenza, Quadrivalent, High Dose, Preservative Free, Intrr 05/01/2020 ??? Influenza, Trivalent, High Dose, Split, Preservative Free, Intramuscular 05/15/2014, 05/08/2016, 05/07/2017, 05/03/2018, 06/17/2019 ??? Influenza, Trivalent, Intramuscular 06/20/2012 ??? Influenza, Trivalent, Preservative Free, Intramuscular 05/22/2015 ??? Pfizer SARS-CoV-2 Vaccination 10/13/2020, 11/03/2020 ??? Pneumococcal Conjugate PCV 13 05/08/2016 ??? Pneumococcal Conjugate, Unspecified 06/18/2008 ??? ZOSTER Recombinant 02/02/2018, 05/03/2018 Primary Pharmacy/DME suppliers: [facility] - [place], [place] - [address] [place] [address] [place] [address] [address] [facility] [address] [facility] - [place], [place] - [address] [place] [address] [address] [facility] [address] PLEASE BRING IN ALL PILL BOTTLES TO EVERY OFFICE VISIT, THIS IS ESSENTIAL FOR ACCURATE REFILLS AND MAINTAINING AN ACCURATE MEDICATION LIST. PLEASE SIGN UP FOR EnplugT so that you may have access to your labs and chart documentation IF YOU HAVE TROUBLE WITH THIS PROCESS CALL [phone] Review this echocardiogram with her media center director school at next follow-up in ask if you have a VSD that needs any further attention for antibiotics with dental work or medication treatment or updated echo. Also ask for you get the diagnosis of diastolic heart failure Found on echo 2018 associated with pulmonary [...] 30-40 mmHg suggestive of mild pulmonary hypertension. CHIEF COMPLAINT New Patient HISTORY OF PRESENT ILLNESS Lisa Conn is a new patient to my office and our practice today referred by her friend Mr. Sharpe transferring from her [place] Dr. Winters who was a long-term family friend and her primary care physician --who has just retired from his practice. The visit included a comprehensive medical problem review and physical examination, medication Refill Management, And a discussion of her new concerns. Issues discussed today included all new lab orders for the next follow-up visit, results of currentlab work, Annual Health Maintenance Recommendations ( Documented on the separately scanned in AMS Annual Physical Exam Worksheet ) and a review of active and discontinued medication prescriptions. DETAILS REGARDING THIS VISIT: Lisa reports feeling well 1-5. Acute on chronic diastolic heart failure (CMS/HCC) Ventricular septal defect (VSD) Nonrheumatic aortic valve insufficiency Mitral valve disease Palpitation Multi type hyperlipidemia I will start this paragraph by stating that her body and heart appear very healthy on physical examination. She has excellent health habits. She does have abnormalities on past testing the require discussion with her specialist. She has been following with Cardiology and primary care for years for these problems. She does haveappointment coming up with her media center director school. She was unaware of the VSD found on echocardiogram 2018 and I have shared this information with her on the AVS to discuss with the media center director school. Recently she has been suffering palpitations and thought she had atrial fibrillation due to her background tonursing. She has not had this documented on any rhythm strip or EKG. She is advised to see her media center director school and consider 30 day CardioNet Her cardiac labs are due for update before this visit in are drawn today. Cardiac examination is consistent with her aortic insufficiency, I do not hear a machine murmur 1 would expect with a VSD - Cholesterol, LDL, direct; Future - Comprehensive metabolic panel; Future - CRP (cardiac risk); Future A large pile of her most recent paper record is brought to office today and will be reviewed with addendums added to this note if outside chart review findings required additions.. 6. Adjustment insomnia Previous primary care doctor had prescribed Ativan. I recommend against benzodiazepine in her age in suggest a very low dose of trazodone at night for sleep. She did try this medicine in the past in the daytime and slept the entire day. I think it would work well for her dosed correctly at bedtime-traZODone (DESYREL) 50 mg tablet; Take 0.25 tablets (12.5 mg total) by mouth nightly Dispense: 15 tablet; Refill: 3 7. Squamous blepharitis of upper and lower eyelids of both eyes Following with Dr. STYLES for her glaucoma and this new diagnosis of Eye rosacea, she has good results with the recent addition of Vibramycin antibiotic to her regimen 8. Hypothyroidism, adult On very low-dose Synthroid for your she is due for update labs to consider dose adjustment - levothyroxine (SYNTHROID) 50 mcg tablet; Take 1 tablet (50 mcg total) by mouth mortgage protection specialist before breakfast Dispense: 90 tablet; Refill: 3 - T4, free; Future - TSH; Future PAST MEDICAL HISTORY Past Medical History: Diagnosis Date ??? History of trabeculectomy 05/30/2000 Left eye ??? History of trabeculectomy 01/22/2001 Right eye ??? HX OTHER MEDICAL Valvular Heart Disease 2xAR, Ant MVP ??? HX OTHER MEDICAL diastolic dysfunction ??? HX OTHER MEDICAL hypothyroidism, osteopenia, glaucoma, anxiety ??? Low-tension glaucoma of left eye, severe stage ??? Low-tension glaucoma of right eye, severe stage ??? Nuclear sclerotic cataract of right eye 01/07/2018 ??? Pseudophakia left ??? S/P laser trabeculoplasty of eye 1999 Both eyes PAST SURGICAL HISTORY Past Surgical History: Procedure Laterality Date ??? GLAUCOMA SURGERY Bilateral Filtering Bleb ??? OTHER SURGICAL HISTORY Valvular Heart Disease 2xAR, Ant MVP: ??? OTHER SURGICAL HISTORY uterine suspension surgery FAMILY HISTORY family history includes Glaucoma in her sister; Macular degeneration in her father; Osteoporosis inher daughter, father, and mother; Other in her father; Retinal detachment in her sister; Scoliosis in her sister. SOCIAL HISTORY Social History Tobacco Use ??? Smoking status: Never Smoker ??? Smokeless tobacco: Never Used Substance Use Topics ??? Alcohol use: No Social History Socioeconomic History ??? Marital status: Spouse name: Not on file ??? Number of children: Not on file ??? Years of education: Not on file ??? Highest education level: Not on file Occupational History ??? 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 Smoking status: Never Smoker ??? Smokeless tobacco: Never Used Substance and Sexual Activity ??? Alcohol use: No ??? Drug use: No ??? Sexual activity: Not Currently Partners: Male Other Topics Concern ??? 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 He is very sick and close to going on hospice Social Determinants of Health Financial Resource Strain: [...] Gatherings with Friends and Family: ??? Attends Quaker Services: ??? Active Member of Clubs or Organizations: ??? Attends Club or Organization Meetings: ??? Marital Status: Intimate Partner Violence: ??? Fear of Current or Ex-Partner: ??? Emotionally Abused: ??? Physically Abused: ??? Sexually Abused: THE REVIEW OF SYSTEMS Review of Systems [...] bruise/bleed easily. Psychiatric/Behavioral: Positive for sleep disturbance (Caretaking responsibilities inducing anxiety and interfering with sleep). Negative for behavioral problems and dysphoric mood. The patient is nervous/anxious ( related to her concern for her partner). MEDICATION LIST BEFORE THIS VISIT Current Outpatient Medications on File Prior to Visit Medication Sig ??? cholecalciferol (VITAMIN D-3) 2,000 unit tablet 3,000 Units ??? doxycycline hyclate 50 mg tablet Take 1 mg by mouth daily ??? ketorolac (ACULAR LS) 0.4 % drops Administer 1 drop into both eyes as needed (as needed) ??? melatonin 5 mg capsule take 1 tablet every night before bed ??? multivitamin capsule Take 1 capsule by mouth daily ??? [DISCONTINUED] ascorbic acid (VITAMIN C) 100 mg tablet Take 100 mg by mouth daily ??? [DISCONTINUED] levothyroxine (SYNTHROID, LEVOTHROID) 50 mcg tablet ??? [DISCONTINUED] LORazepam (ATIVAN) 0.5 mg tablet Take 0.5 mg by mouth daily ??? [DISCONTINUED] cholecalciferol (VITAMIN D3) 1,000 unit capsule take 1 by Oral route every day ??? [DISCONTINUED] dextran 70-hypromellose, PF, 0.1-0.3 % dropperette Administer 1 drop into both eyes as needed. ??? [DISCONTINUED] doxycycline hyclate (VIBRAMYCIN) 50 mg capsule ??? [DISCONTINUED] polyvinyl alcohol (LUBRICANT EYE, POLYV ALCOHOL,) 1.4 % ophthalmic solution Administer 1 drop into both eyes as needed. ??? [DISCONTINUED] VITAMIN B COMPLEX ORAL Take 1 tablet by mouth daily No current facility-administered medications on file prior to visit. MEDICATION LIST AT CONCLUSION OF THIS VISIT Current Outpatient Medications Ordered in [facility] Medication Sig Dispense Refill ??? cholecalciferol (VITAMIN D-3) 2,000 unit tablet 3,000 Units ??? doxycycline hyclate 50 mg tablet Take 1 mg by mouth daily 30 tablet 11 ??? ketorolac (ACULAR LS) 0.4 % drops Administer 1 drop into both eyes as needed (as needed) 5 mL 3 ??? levothyroxine (SYNTHROID) 50 mcg tablet Take 1 tablet (50 mcg total) by mouth mortgage protection specialist before breakfast 90 tablet 3 ??? melatonin 5 mg capsule take 1 tablet every night before bed 0 ??? multivitamin capsule Take 1 capsule by mouth daily ??? traZODone (DESYREL) 50 mg tablet Take 0.25 tablets (12.5 mg total) by mouth nightly 15 tablet 3 No current [facility]-ordered facility-administered medications on file. ALLERGIES is allergic to clarithromycin; metronidazole; sulfa (sulfonamide antibiotics); and chloramphenicol. PHYSICAL EXAM body mass index is 19.97 kg/m??. Vitals: 12/16/20 1438 BP: 120/70 BP Location: Left arm Patient Position: Sitting Pulse: 53 Resp: 12 Temp: 36.6 ??C (97.9 ??F) TempSrc: Temporal SpO2: 97% Weight: 54.4 kg (120 lb) Height: 165.1 cm (5' 5 ) Physical Exam Vitals reviewed. Constitutional: General: She is not in acute distress. Appearance: Normal appearance. She is well-developed and normal weight. HENT: Head: Normocephalic and atraumatic. Right Ear: Tympanic membrane and external ear normal. Left Ear: Tympanic membrane and external ear normal. Nose: Nose normal. No congestion or rhinorrhea. Comments: Nasal septal deviation to the left with a prominent turbinate on the left-hand side causing relative obstruction, right side is completely clear Mouth/Throat: Mouth: Mucous membranes are moist. Pharynx: Oropharynx is clear. No oropharyngeal exudate or posterior oropharyngeal erythema. Eyes: General: No scleral icterus. Extraocular Movements: Extraocular movements intact. Conjunctiva/sclera: Conjunctivae normal. Pupils: Pupils are equal, round, and reactive to light. Neck: Thyroid: No thyromegaly. Cardiovascular: Rate and Rhythm: Normal rate and regular rhythm. Pulses: Normal pulses. Heart sounds: Murmur (Diastolic murmur left sternal border) present. No gallop. Pulmonary: Effort: Pulmonary effort is normal. Breath sounds: Normal breath sounds. No wheezing, rhonchi or rales. Abdominal: General: Bowel sounds are normal. There is no distension. Palpations: Abdomen is soft. There is no mass. Tenderness: There is no abdominal tenderness. There is no guarding or rebound. Hernia: No hernia is present. Genitourinary: Comments: Healthy bilateral breast examination, pelvic and rectal exams are decline Musculoskeletal: General: No swelling, tenderness, deformity or signs of injury. Normal range [...] Thought content normal. Judgment: Judgment normal. Comments: Anxious with care responsibilities for a friend Comprehensive physical examination was completed today and [...] in the After Visit Summary = VS. Nabila King M.D. THE FOLLOWING CLERICAL INFORMATION DOES NOT DUE TO BE SENT IN A PRINTED DOCUMENT BLOOD WORK REVIEWED WITH Lisa Conn TODAY Lab on 12/16/2020 Component Date Value Ref Range Status ??? Thyroid Stimulating Hormone 12/16/2020 5.94* 0.30 [...] Code ??? Mitral valve disease I05.9 ??? Osteopenia M85.80 ??? 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 Nuclear senile cataract, right H25.11 ??? Pseudophakia Z96.1 ??? 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 Acute on chronic diastolic heart failure (CMS/HCC) I50.33 ??? Ventricular septal defect (VSD) Q21.0 ??? 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 Palpitation R00.2 documented in this encounter Plan of Treatment Not on file documented as of this encounter Results * CRP (cardiac risk) (12/16/2020 4:29 PM CDT) Pathologist [facility] hsCRP 1.64 mg/L FRANKIE MOTLEY Comment: Interpretive data Adult only - values [...] last revised on 2018. Testing performed by: [facility], [address] [place]., [address] Blood specimen (specimen) 12/16/2020 4:29 PM CDT 12/17/2020 12:31 PM CDT us Nabila King MD LAB BLOOD ORDERABLES Final Result Performing Organization Address [facility] Co de Phone Number FRANKIE MOTLEY [address] Department [place] [place] [address] * (ABNORMAL) TSH (12/16/2020 4:29 PM CDT) Thyroid Stimulating Hormone 5.94(H) 0.30 - 4.20 mcIUnit/mL [facility] Blood specimen (specimen) 12/16/2020 4:29 PM CDT 12/16/2020 7:15 PM CDT us Nabila King MD LAB BLOOD ORDERABLES Final Result Performing Organization Address [facility] Co de Phone Number FRANKIE [address] Department [place] [employer] [place] [address] * (ABNORMAL) T4, free (12/16/2020 4:29 PM CDT) Free T4 0.87(L) 0.90 - 1.70 ng/dL [facility] Blood specimen (specimen) 12/16/2020 4:29 PM CDT 12/16/2020 7:15 PM CDT us Nabila King MD LAB BLOOD ORDERABLES Final Result Performing Organization Address [facility]/ZIP Co de Phone Number FRANKIE MOTLEY [address] [place] [address] * Comprehensive metabolic panel (12/16/2020 4:29 PM [...] BLOOD ORDERABLES Final Result Performing Organization Address City/[facility]/ZIP Co de Phone Number FRANKIE MOTLEY [address] [place] [place] [address] * Cholesterol, LDL, direct (12/16/2020 4:29 PM CDT) LDL Cholesterol, Direct 122 <=129 mg/dL FRANKIE MOTLEY Comment: Interpretive Data Ages < or = [...] King MD LAB BLOOD ORDERABLES Final Result [facility] [address] Department [place] [address] documented in this encounter Visit Diagnoses Diagnosis Acute on chronic diastolic heart failure (CMS/HCC) (HCC)- Primary Acute on chronic diastolic heart failure Ventricular septal defect (VSD) Nonrheumatic aortic valve insufficiency Mitral valve disease Other and unspecified mitral valve diseases Palpitation Palpitations Adjustment insomnia Insomnia, unspecified Squamous blepharitis of upper and lower eyelids of both eyes Hypothyroidism, adult Other specified acquired hypothyroidism Multiple-type hyperlipidemia Other and unspecified hyperlipidemia documented in this encounter Discontinued Medications Medication Sig Discontinue Reason Start Date End Da te doxycycline hyclate (VIBRAMYCIN) 50 mg capsule 09/10/2020 12/16/2020 cholecalciferol (VITAMIN D3) 1,000 unit capsule take 1 by Oral route every day Therapy completed 06/15/2012 12/16/2020 dextran 70-hypromellose, PF, 0.1-0.3 % dropperette Administer 1 drop into both eyes as needed. Therapy completed 12/16/2020 polyvinyl alcohol (LUBRICANT EYE, POLYV ALCOHOL,) 1.4 % ophthalmic solution Administer 1 drop into both eyes as needed. Therapy completed 12/16/2020 VITAMIN B COMPLEX ORAL Take 1 tablet by mouth daily Therapy completed 04/05/2016 12/16/2020 LORazepam (ATIVAN) 0.5 mg tablet Take 0.5 mg by mouth daily Therapy completed 12/08/2020 12/16/2020 levothyroxine (SYNTHROID, LEVOTHROID) 50 mcg tablet Reorder 05/29/2018 12/16/2020 ascorbic acid (VITAMIN C) 100 mg tablet Take 100 mg by mouth daily Therapy completed 04/05/2016 12/16/2020 documented as of this encounter Historical Medications * This list may reflect changes made after this encounter. doxycycline hyclate (VIBRAMYCIN) 50 mg capsule 09/10/2020 12/16/2020 LORazepam (ATIVAN) 0.5 mg tablet Take 0.5 mg by mouth daily 12/08/2020 12/16/2020 added in this encounter Care Teams Process Pumper Relationship Specialty Start Date End Date Nabila King MD [address] [place] [address] [address] [place] [address] PCP - General Internal Medicine 12/16/20 Christine Styles MD Surgeon Ophthalmology 12/13/20 Sita Magana MD [address] [place] [address] [address] [place] [address] Consulting Physician Internal Medicine 12/13/20 Regulo Pandey MD [facility] [facility] [address] [place] [address] Referring Physician Cardiovascular Disease 12/16/20 documented as of this encounter
--- OUTSIDE RECORDS SUMMARY | 2024-08-09 17:50 | XMS_ITS | Encounter Summary ---
Author Organization [facility] Address [address] [place] [address] Phone Care Team Providers Care Beta Tester Name Role Phone Jason Winters MD Primary Care Provider [phone] Christine Kendall MD Unavailable [phone] Sita Magana MD Unavailable [phone] Nabila King MD Primary Care Provider [phone] Regulo Pandey MD Unavailable Gigi Méndez MD Unavailable [phone] Bc Martinez MD Unavailable [phone] Bc Martinez MD Unavailable [phone] Martin Correa MD Unavailable [phone] Gildardo Gonzáles Si, MD Unavailable Encounter Details Date Type Department Care Team (Late st Contact Info) Description 05/23/2019 Orders Only [facility] [address] [place] [address] Nbaila King MD [address] [place] [address] Social History Tobacco Use Types Packs/Day Years Used Date Smoking Tobacco: Never Smokeless Tobacco: Never Alcohol Use Standard Drinks/Week Comments No 0 (1 standard drink = 0.6 oz pur e alcohol) Comments Unknown Sex and Gender Information Value Date Recorded Sex Assigned at Not on file 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 Gender Identity Not on file Sexual Orientation Not on file documented as of this encounter Plan of Treatment Not on file documented as of this encounter Procedures Procedure Name Priority Date/Time Associated Diagnosis Comments SCAN - RADIOLOGY/IMAGING 05/23/2019 documented in this encounter Results * SCAN - RADIOLOGY/IMAGING (05/23/2019) Anatomical Region Laterality Modality Other us Nabila King MD Final Resu lt documented in this encounter Visit Diagnoses Not on filedocumented in this encounter Care Teams Beta Tester Relationship Specialty Start Date End Date Jason Winters MD [address] [place] [address] PCP - General Family Medicine 07/23/18 12/15/20 Nabila King MD [facility] [address] [place] [address] PCP - General Internal Medicine 12/16/20 Christine Kendall MD [address] [place] [address] Surgeon Ophthalmology 12/13/20 Sita Magana MD [facility] [address] [place] [address] Consulting Physician Internal Medicine 12/13/20 Regulo Pandey MD [address] [place] [address] Referring Physician Cardiovascular Disease 12/16/20 Gigi Méndez MD [address] [place] [address] Referring Physician Cardiology 02/18/21 Bc Martinez MD [address] [place] [address] Consulting Physician Cardiology 10/22/21 08/21/23 Bc Martinez MD [address] [place] [address] Referring Physician Cardiology 08/22/23 Martin Correa MD [address] [place] [address] Consulting Physician Cardiothoracic Surgery 08/22/23 NiviaGildardo Si, MD [address] [place] [address] Consulting Physician Neurology 07/09/24 documented as of this encounter
--- OUTSIDE RECORDS SUMMARY | 2024-08-09 17:50 | XMS_ITS | Encounter Summary ---
Author Organization [facility] Address [address] [place] [address] Phone Care Team Providers Care Book Trimmer Name Role Phone Jason Winters MD Primary Care Provider [phone] Reason for Referral * (Routine) - Closed Specialty Diagnoses / Procedures Referred By Contac t Referred To Contact Diagnoses Low-tension glaucoma, bilateral, severe stage Procedures Dyer Visual Field - OU - Both Eyes Christine Kendall MD Phone: tel: fax: [facility] (All Locations) Referral ID Status Reason Start Date Expiration Date Visits Re quested Visits Authorized [id number] Closed 01/21/2019 08/01/2020 1 1 Encounter Details Date Type Department Care Team (Late st Contact Info) Description 01/21/2019 10:00 AM CDT Office Visit [facility] Ophthalmology 10 [facility] Medical Office Building [address] [place] [address] Christine Kendall MD [address] DEPT OPHTHALMOLOGY, [facility] [address] [place] [address] Low-tension glaucoma, bilateral, severe stage [...] on file 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 Gender Identity Not on file Sexual Orientation Not on file documented as of this encounter Patient Instructions * Patient Instructions* Christine Kendall MD - 01/21/2019 10:00 AM CDT documented in this encounter Ordered Prescriptions Prescription Sig Dispense Quantity Refills Last Filled Start Date End Date ketorolac (ACULAR LS) 0.4 % drops Administer 1 drop into both eyes as needed (as needed) 5 mL 3 01/21/2019 0 ketorolac (ACULAR LS) 0.4 % drops Administer 1 drop into both eyes as needed (as needed) 5 mL 3 01/21/2019 9 documented in this encounter Progress Notes * Christine Kendall MD - 01/21/2019 10:00 AM CDT Assessment/Plan Diagnoses and all orders for this visit: Low-tension glaucoma, bilateral, severe stage (Primary) Assessment & Plan: intraocular pressure (IOP) acceptable both eyes (OU)\ status post (s/p) trab both eyes (OU) F/U 6 months with Dyer visual field (HVF) 24-2 Orders: - Dyer Visual Field - OU - Both Eyes; Future Nuclear senile cataract, right Assessment & Plan: Not visually significant to patient Discussed with pt. Check BAT next visit documented in this encounter Miscellaneous Notes * Assessment & Plan Note - Christine Kendall MD - 01/21/2019 11:07 AM CDT Associated Problem(s): Age-related nuclear cataract of right eye Not visually significant to patient Discussed with pt. Check BAT next visit * Assessment & Plan Note - Christine Kendall MD - 01/21/2019 11:06 AM CDT Associated Problem(s): Low-tension glaucoma, bilateral, severe stage intraocular pressure (IOP) acceptable both eyes (OU)\ status post (s/p) trab both eyes (OU) F/U 6 months with Yder visual field (HVF) 24-2 * Addendum Note - Aura Scherer - 01/21/2019 10:00 AM CDTAddended by: AURA SCHERER on: 01/21/2019 11:12 AM Modules accepted: Orders documented in this encounter [...] db. Notes No change compared to 2013 Christine Kendall MD OPHTH VISUAL FIELD Final Result documented in this encounter Visit Diagnoses Diagnosis Low-tension glaucoma, bilateral, severe stage- Primary Nuclear senile cataract, right Low-tension glaucoma, bilateral, severe stage documented in this encounter Discontinued Medications Medication Sig Discontinue Reason Start Date End Da te ketorolac (ACULAR LS) 0.4 % drops Administer 1 drop into both eyes as needed (as needed). Reorder 03/13/2018 01/21/2019 ketorolac (ACULAR LS) 0.4 % drops Administer 1 drop into both eyes as needed (as needed) Reorder 01/21/2019 01/21/2019 documented as of this encounter Eye Exam Visual Acuity (Snellen - Linear) Right eye Left eye Dist sc 20/50 -2 20/25 -1 Dist ph sc 20/25 Tonometry (Applanation, 11:04 AM) Right eye Left eye Pressure 7 10.5 Defer to MD Pupils Dark Light Shape React APD Right eye 6 6 Round Minimal None Left eye 5 5 Round Minimal None Visual Sung (Counting fingers) Right eye Left eye Restrictions Total inferior [...] eye C/D Ratio 1.0 0.95 Care Teams Book Trimmer Relationship Specialty Start Date End Date Jason Winters MD [address] [place] [address] PCP - General Family Medicine 07/23/18 12/15/20 documented as of this encounter
--- OUTSIDE RECORDS SUMMARY | 2024-08-09 17:50 | XMS_ITS | Encounter Summary ---
Author Organization [facility] Address [address] [place] [address] Phone Care Team Providers Care Grab Setter Name Role Phone Jason Winters MD Primary Care Provider [phone] Christine Kendall MD Unavailable [phone] Sita Magana MD Unavailable [phone] Encounter Details Date Type Department Care Team (Late st Contact Info) Description 12/14/2020 10:45 AM CDT Office Visit [facility] Ophthalmology 10 [facility] Medical Office Building [address] [place] [address] Christine Kendall MD [address] [facility] DEPT OPHTHALMOLOGY, [facility] [address] [place], [place] [id number] Low-tension glaucoma, bilateral, severe stage (Primary Dx); [...] on file 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 Gender Identity Not on file Sexual Orientation Not on file documented as of this encounter Patient Instructions * Patient Instructions* Christine Kendall MD - 12/14/2020 10:45 AM CDT documented in this encounter Progress Notes * Christine Kendall MD - 12/14/2020 10:45 AM CDT Assessment/Plan Diagnoses and all orders for this visit: Low-tension glaucoma, bilateral, severe stage (Primary) Assessment & Plan: intraocular pressure (IOP) acceptable Dyer visual field (HVF) stable, reliable CPM F/U 8months- Dyer visual field (HVF) Nuclear senile cataract, right Assessment & Plan: Not VS- observe Squamous blepharitis of upper and lower eyelids of both eyes Assessment & Plan: Warm compresses, Lid scrubs with baby shampoo documented in this encounter Miscellaneous Notes * Assessment & Plan Note - Christine Kendall MD - 12/14/2020 11:31 AM CDT Associated Problem(s): Squamous blepharitis of both eyes (Resolved 06/23/2024) Warm compresses, Lid scrubs with baby shampoo * Assessment & Plan Note - Christine eKndall MD - 12/14/2020 11:29 AM CDT Associated Problem(s): Age-related nuclear cataract of right eye Not VS- observe * Assessment & Plan Note - Christine Kendall MD - 12/14/2020 11:28 AM CDT Associated Problem(s): Low-tension glaucoma, bilateral, severe stage intraocular pressure (IOP) acceptable Dyer visual field (HVF) stable, reliable CPM F/U 8months- Dyer visual field (HVF) documented in this encounter Plan of Treatment Not on file documented as of this encounter Visit Diagnoses Diagnosis Low-tension glaucoma, bilateral, severe stage- Primary Nuclear senile cataract, right Squamous blepharitis of upper and lower eyelids of both eyes documented in this encounter Discontinued Medications Medication Sig Discontinue Reason Start Date End Da te LORazepam (ATIVAN) 0.5 mg tablet take 1 Tablet (0.5MG) by oral route every day as needed Therapy completed 06/15/2012 12/14/2020 LORazepam (ATIVAN) 1 mg tablet Take 1 mg by mouth daily Therapy completed 03/29/2019 12/14/2020 estrogens-methylTESTOS TERone (COVARYX H.S.) 0.625-1.25 mg per tablet take 1 tablet by oral route every 2 days for 21 consecutive days, followed by 7 days off Therapy completed 10/15/2013 12/14/2020 documented as of this encounter Eye Exam Visual Acuity (Snellen - Linear) Right eye Left eye Dist sc 20/40 -1 20/25 +-2 Dist ph sc 20/40 +2 Tonometry (Applanation, 11:27 AM) Right eye Left eye Pressure 8 9.5 Defer to MD-Pt request Pupils Dark Shape React APD Right eye 6.5 Round NR Left eye 5.5 Round Minimal None Visual Sung Right eye Left eye Restrictions Partial inner inferi or nasal deficiency Partial outer inferior temporal, inferior nasal [...] rhage C/D Ratio 1.0 0.95 Care Teams Grab Setter Relationship Specialty Start Date End Date Jason Winters MD [address] [place] [address] PCP - General Family Medicine 07/23/18 12/15/20 Christine Kendall MD [address] [place] [address] Surgeon Ophthalmology 12/13/20 Sita Magana MD [address] [facility] [address] [place] [address] Consulting Physician Internal Medicine 12/13/20 documented as of this encounter
--- OUTSIDE RECORDS SUMMARY | 2024-08-09 17:50 | XMS_ITS | Encounter Summary ---
Author Organization [facility] Address [address] [place] [address] Phone Care Team Providers Care Communication Spec Name Role Phone Jason Winters MD Primary Care Provider [phone] Christine Kendall MD Unavailable [phone] Sita Magana MD Unavailable [phone] Nabila King MD Primary Care Provider [phone] Regulo Pandey MD Unavailable Gigi Méndez MD Unavailable [phone] Bc Martinez MD Unavailable [phone] Bc Martinez MD Unavailable [phone] Martin Correa MD Unavailable [phone] Gildardo Gonzáles Si, MD Unavailable Encounter Details Date Type Department Care Team (Late st Contact Info) Description 06/17/2019 Orders Only [facility] [address] [place] [address] Nabila King MD [address] [place] [address] Social History Tobacco Use Types Packs/Day Years Used Date Smoking Tobacco: Never Smokeless Tobacco: Never Alcohol Use Standard Drinks/Week Comments No 0 (1 standard drink = 0.6 oz pur e alcohol) Comments Unknown Sex and Gender Information Value Date Recorded Sex Assigned at Not on file 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 Gender Identity Not on file Sexual Orientation Not on file documented as of this encounter Plan of Treatment Not on file documented as of this encounter Procedures Procedure Name Priority Date/Time Associated Diagnosis Comments SCAN - RADIOLOGY/IMAGING 06/17/2019 documented in this encounter Results * SCAN - RADIOLOGY/IMAGING (06/17/2019) Anatomical Region Laterality Modality Other us Nabila King MD Final Resu lt documented in this encounter Visit Diagnoses Not on filedocumented in this encounter Care Teams Communication Spec Relationship Specialty Start Date End Date Jason Winters MD [address] [place] [address] PCP - General Family Medicine 07/23/18 12/15/20 Nabila King MD [facility] [address] [place] [address] PCP - General Internal Medicine 12/16/20 Christine Kendall MD [address] [place] [address] Surgeon Ophthalmology 12/13/20 Sita Magana MD [facility] [address] [place] [address] Consulting Physician Internal Medicine 12/13/20 Regulo Pandey MD [address] [place] [address] Referring Physician Cardiovascular Disease 12/16/20 Gigi Méndez MD [address] [place] [address] Referring Physician Cardiology 02/18/21 Bc Martinez MD [address] [place] [address] Consulting Physician Cardiology 10/22/21 08/21/23 Bc Martinez MD [address] [place] [address] Referring Physician Cardiology 08/22/23 Martin Correa MD [address] [place] [address] Consulting Physician Cardiothoracic Surgery 08/22/23 NiviaGildardo Si, MD [address] [facility] [place] [address] Consulting Physician Neurology 07/09/24 documented as of this encounter
--- OUTSIDE RECORDS SUMMARY | 2024-08-09 17:50 | XMS_ITS | Encounter Summary ---
Author Organization [facility] Address [address] [place] [address] Phone Care Team Providers Care Cad Cam Programmer Name Role Phone Jason Winters MD Primary Care Provider [phone] Encounter Details Date Type Department Care Team (Late st Contact Info) Description 02/04/2019 Orders Only [facility] Bone Health 10 [facility] Medical Office Building [address] [place] [address] Sita Magana MD 10 [facility] [address] [place] [address] Osteopenia of multiple sites (Primary Dx) Social History Tobacco Use Types Packs/Day Years Used Date Smoking Tobacco: Never Smokeless Tobacco: Never Alcohol Use Standard Drinks/Week Comments No 0 (1 standard drink = 0.6 oz pur e alcohol) Comments Unknown Sex and Gender Information Value Date Recorded Sex Assigned at Not on file 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
--- OUTSIDE RECORDS SUMMARY | 2024-08-09 17:50 | XMS_ITS | Encounter Summary ---
Author Organization [facility] Address [address] [place] [address] Care Team Providers Care Direct Service Worker Name Role Phone Unavailable Primary Care Provider Unavailabl e Encounter Details Date Type Department Care Team (Late st Contact Info) Description 02/07/2018 9:18 AM CDT Hospital Encounter [facility] OP Yasir Griggs MD [address] [facility] [address] [address] Pain in left hip Social History Tobacco Use Types Packs/Day Years Used Date Smoking Tobacco: Never Alcohol Use Standard Drinks/Week Comments No 0 (1 standard drink = 0.6 oz pur e alcohol) Comments Unknown Sex and Gender Information Value Date Recorded Sex Assigned at Not on file 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 ??Negative left hip. THIS IS AN ELECTRONICALLY VERIFIED REPORT 02/07/2018 9:25 AM: ??Yasir Griggs M.D. ?? Yasir Griggs M.D. SH:chuck 09:25 AM 09:25 AM [EOD] Narrative 02/07/2018 9:29 AM CDT EXAMINATION: ??AP and frog-leg lateral views left hip REASON FOR EXAM: ??Left hip pain FINDINGS: ??2 views of the left hip are reviewed. ??These images reveal a round and smooth left femoral head present within normally formed acetabulum. ??There is no joint space narrowing. ??There is no abnormal bone destruction noted and no fractures or dislocations are seen. ??Degenerative changes are incidentally identified in the lower lumbar spine. Procedure Note Provider, MD Vito - 01/05/2021 EXAMINATION: AP and frog-leg lateral views left hip REASON FOR EXAM: Left hip pain FINDINGS: 2 views of the left hip are reviewed. These images reveal around and smooth left femoral head present within normally formed acetabulum.There is no joint space narrowing. There is no abnormal bone destruction notedand no fractures or dislocations are seen. Degenerative changes areincidentally identified in the lower lumbar spine. 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 THIS IS AN ELECTRONICALLY VERIFIED REPORT 02/07/2018 9:25 AM: Yasir Griggs M.D. Yasir Griggs M.D. SH:chuck 09:25 AM 09:25 AM [EOD] us Yasir Griggs MD IMG XR PROCEDURES Final Resu lt documented in this encounter Visit Diagnoses Diagnosis Pain in left hip documented in this encounter
--- OUTSIDE RECORDS SUMMARY | 2024-08-09 17:50 | XMS_ITS | Encounter Summary ---
Author Organization [facility] Address [address] [place] [address] Phone Care Team Providers Care Newswriter Name Role Phone Jason Winters MD Primary Care Provider [phone] [phone] Reason for Referral * Diagnostic Imaging (Routine) - Closed Specialty Diagnoses / Procedures Referred By Contac t Referred To Contact Diagnoses Osteoporosis, unspecified osteoporosis type, unspecified pathological fracture presence Procedures Dexa Axial Skeleton Bone Density 1 or 2 Site Sita Magana MD Phone: tel: fax: [facility] (All Locations) Referral ID Status Reason Start Date Expiration Date Visits Re quested Visits Authorized [id number] Closed 01/23/2019 08/03/2020 99 99 Reason for Visit * Reason Comments Osteopenia * Diagnostic Imaging (Routine) - Closed Specialty Diagnoses / Procedures Referred By Contac t Referred To Contact Diagnoses Osteoporosis, unspecified osteoporosis type, unspecified pathological fracture presence Procedures Dexa Axial Skeleton Bone Density 1 or 2 Site Sita Magana MD Phone: tel: fax: [facility] (All Locations) Referral ID Status Reason Start Date Expiration Date Visits Re quested Visits Authorized [id number] Closed 01/23/2019 08/03/2020 99 99 Encounter Details Date Type Department Care Team (Latest Contact Info) Description 01/31/2019 10:50 AM CDT Clinical Support [facility] [address] [place] [address] Osteoporosis, unspecified osteoporosis type, unspecified pathological fracture presence (Primary Dx); Osteopenia of multiple sites Social History Tobacco Use Types Packs/Day Years Used Date Smoking Tobacco: Never Smokeless Tobacco: Never Alcohol Use Standard Drinks/Week Comments No 0 (1 standard drink = 0.6 oz pur e alcohol) Comments Unknown Sex and Gender Information Value Date Recorded Sex Assigned at Not on file Legal Sex Female 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 Gender Identity Not on file Sexual Orientation Not on file documented as of this encounter Plan of Treatment Not on file documented as of this encounter Procedures Procedure Name Priority Date/Time Associated Diagnosis Comments DEXA AXIAL SKELETON BONE DENSITY 1 OR MORE SITES Schedule Routine, Read Routine (OP Routine) 01/31/2019 10:48 AM CDT Osteoporosis, unspecified osteoporosis type, unspecified pathological fracture presence documented in this encounter Results * Dexa Axial Skeleton Bone Density 1 or 2 Site (01/31/2019 10:48 AM CDT) Anatomical Region Laterality Modality Body N/A Radiographic Cayla ging Narrative 01/31/2019 3:29 PM CDT Patient Name: Lisa Conn Date of : 1935 Date of scan: 01/31/2019 Bone mineral density was performed on a [employer]ling[employer] Discovery Densitometer. ?? Machine Cross-calibration and Precision studies have been performed with a least significant change of 0.024 g/cm at the spine, 0.020 g/cm at the total proximal femur, and 0.014g/cm at the forearm. HISTORY: ??This is a 83 y.o. postmenopausal female with a history of osteoporosis and thyroid disease. Currently on treatment with calcium, thyroid hormone, and vitamin D. ??Previously treated with Actonel, Boniva, Fosamax and hormone replacement therapy. History of tobacco use: Social History Tobacco Use Smoking Status Never Smoker INDICATIONS: Menopause status and history of osteoporosis. FINDINGS: BONE MINERAL DENSITY OF THE LUMBAR SPINE Bone Mineral Density (BMD) of the lumbar spine was measured from L1-L4 and the average density was calculated to be 0.811 gm/cm. This corresponds to a T-score standard deviations from the mean of young adults of -2.1. When compared to the previous study of 01/11/2018 there has been no significant change noted. BONE MINERAL DENSITY OF THE PROXIMAL FEMUR Bone Mineral Density (BMD) of the left hip total was found to be 0.822 gm/cm2. This corresponds to a T-score standard deviations from the mean of young adults of -1.0. Femoral neck is 0.672 gm/cm2 with a T-score ??of -1.6. When compared to the previous study of 01/11/2018 there has been no significant change noted. SUMMARY: Bone mineral density shows evidence of low bone mass in the hip and spine and moderately increased fracture risk. There has been no significant changes in bone mineral density since previous measurement. ADDITIONAL COMMENTS: If the patient has a history of a fragility fracture, a fracture that occurred with trauma equivalent to a fall from a standing position or less, then the diagnosis is osteoporosis. The risk of osteoporotic fracture increases approximately 2-fold for each 1.0 SD decrease in T-score. However, low bone density is not the only risk factor for fracture. Other factors include patient? s age, previous osteoporotic fracture or prior fracture as an adult, loss of height of greater than 2 inches, corticosteroid use, risk of falling, risk of injury, and family history of osteoporosis. Not everyone with low bone mineral density has osteoporosis. Osteomalacia and other metabolic bone disorders should also be considered where indicated. ??Patients who have osteoporosis should be evaluated for specific diseases and conditions (secondary causes) that may cause or contribute to bone loss. Consider repeating this study in 1-2 years to assess the patient? s response to treatment, if applicable. It is recommended that any follow up exam be performed on the same machine if possible for better accuracy. DEFINITIONS: Osteoporosis: ??BMD at or below -2.5 T-score Osteopenia (low bone mass): ??BMD between -1.0 and-2.5 T-score. The Bone Health Program adopts the following WHO definitions: Osteoporosis: ??BMD below -2.5 S.D. as compared to the BMD of young normal adults. Osteopenia or Low Bone Mass: ??BMD between -1.0 and -2.5 S.D. below the BMD of young normal adults. Normal Bone Density: ??BMD equal to or greater than -1.0 S.D. as compared to the BMD of young normal adults. References: 1) Shakir, Annals of Internal Medicine 114(11): ??919-923 (1990) 2) Marjorie, Lancet 341 : 72-75 (1992) 3) Anthony, Journal Bone and Mineral Research 7(6): 633-8 (1991) 4) Avery, Journal Bone and Mineral Research 8(10):1227-33 (1992) The history and data sections of the bone mineral density scan were prepared by Karo Brown who is accredited by the International Society of Clinical Densitometry. The overall patient assessment and scan interpretation were performed by Sita Magana M.D. who is certified by the International Society of Clinical Densitometry. [id number] Sita Magana MD IMG DXA PROCEDURES Final Re sult documented in this encounter Visit Diagnoses Diagnosis Osteoporosis, unspecified osteoporosis type, unspecified pathological fracture presence- Primary Osteopenia of multiple sites documented in this encounter Care Teams Newswriter Relationship Specialty Start Date End Date Jason Winters MD [address] [place] [id number] PCP - General Family Medicine 07/23/18 12/15/20 documented as of this encounter
--- OUTSIDE RECORDS SUMMARY | 2024-08-09 17:50 | XMS_ITS | Encounter Summary ---
Author Organization [facility] Address [address] [place] [address] Phone Care Team Providers Care Compact Assembler Name Role Phone Jason Winters MD Primary Care Provider [phone] [phone] Reason for Visit * Reason Comments Osteoporosis * Endocrinology (Routine) - Closed Specialty Diagnoses / Procedures Referred By Contac t Referred To Contact Internal Medicine / Bone Health Diagnoses 1 YR F/U Procedures RETURN Referral, Self Sita Magana MD [address] [place] [address] [address] [place] [address] Phone: tel: fax: Referral ID Status Reason Start Date Expiration Date Visits Re quested Visits Authorized [id number] Closed 01/31/2019 08/11/2020 99 99 Encounter Details Date Type Department Care Team (Late st Contact Info) Description 01/31/2019 11:20 AM CDT Office Visit [facility] [address] [place] [id number] Sita Magana MD [address] [place] [address] [address] [place] [address] Osteopenia of multiple sites (Primary Dx) Social History Tobacco Use Types Packs/Day Years Used Date Smoking Tobacco: Never Smokeless Tobacco: Never Alcohol Use Standard Drinks/Week Comments No 0 (1 standard drink = 0.6 oz pur e alcohol) Comments Unknown Sex and Gender Information Value Date Recorded Sex Assigned at Not on file 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 Gender Identity Not on file Sexual Orientation Not on file documented as of this encounter Last Filed Vital Signs Vital Sign Reading Time Taken Comments Blood Pressure - - Pulse - - Temperature - - Respiratory Rate - - Oxygen Saturation - - Inhaled Oxygen Concentration - - Weight 54.4 kg (120 lb) 01/31/2019 11:31 AM CDT Height 162.6 cm (5' 4 ) 01/31/2019 11:31 AM CDT Body Mass Index 20.6 01/31/2019 11:31 AM CDT documented in this encounter Patient Instructions * Patient Instructions* Sita Magana MD - 01/31/2019 11:20 AM CDT Bone Health Program Discharge and Information Sheet Contact: Call: [phone] or [phone] FAX: [phone] Name: Lisa Conn Ht 162.6 cm (5' 4 ) Wt 54.4 kg (120 lb) BMI 20.60 kg/m?? Thank you for choosing the [facility] for consultation about your bone health! We hope that your experience with our program was informative, pleasant and valuable. Your Bone Health Program practitioner will communicate with your referring physician directly, as vidal olivera. Following are a set of instructions that we ask you to read carefully and follow so that therecommendations you have received are correctly implemented. Laboratory Test Results: If you have been given orders to have your blood drawn, we will call you with the results within 2 weeks. If you have not heard back from us for over 2 weeks since your bloodwas drawn, please feel free to give our office a call at [phone] option #1. You can also view your results in the [employer] Portal (see below). Treatment: you have been recommended the following: - Calcium 1229-2251 mg daily, including diet and supplements - Vitamin D 3000 IU daily - Weight bearing (walking, jogging) activity as tolerated Please, note that if the medication above is a new prescription, we will have to check with your insurance company for preauthorization, a process that can take up to 2 weeks. After we receive confirmation from your insurance carrier, we will call you to assist you in getting the medication started. If you have not heard from us after 3 weeks, please call [phone] option #1. Feel free to visit our web site for further information on medications, diet, exercise and other things you can do to take charge of your bone health ([email or web address]). Follow-up Visit: Please, schedule your next appointment at the Bone Health Program in 1 year at thefront desk, or call [phone]. Every attempt will be made to schedule the follow-up appointment as close to the recommended date as possible. Bone Density Testing: You are being followed at the [facility] for your bone health. To ensure the best quality of care, we strongly recommend you have all your follow up bone density testing done at our center. Bone density tests cannot be compared between different facilities and scanners. If another physician requests a bone density test for you, please let her/him know that your bone density is being monitored by the [facility]. If your other providers have questions or would like a report of your bone density scans, they can contact us at [phone] or Medical Records at [phone]. Important! Always remember to stop taking your calcium supplements 24 hours before you are scheduled to have your bone density test at your next visit. [employer] patient portal allows you to view your medical records, test results, personal information,request prescription renewals, review past appointments, request new ones and securely communicate online with our office. Ask at the unit receptionist desk about receiving an invite to join [employer] portal. For questions about accessing [employer] patient portal call [phone]. If you need to make changes to your follow-up appointment, or [facility], please contact us as soon as possible at [phone] ([facility] office) or [phone] ([facility] and [facility] offices). We work on a very tight schedule, and depending on the circumstances it may be necessary to reschedule your appointment if no other time slot is available on the same day. We also have a ???no-show?? policy, whereby after 2 consecutive no-shows you will notbe able to make further appointments with our clinic. Thank you for choosing the Bone Health Program! documented in this encounter Progress Notes * Sita Magana MD - 01/31/2019 11:20 AM CDT [facility] [address] [facility] [address], [place] [address] ? PATIENT NAME: Lisa Conn : 1935 ASSESSMENT/PLAN Diagnoses and all orders for this visit: Osteopenia of multiple sites (Primary) Assessment & Plan: Ms. CNON is currently being treated for osteoporosis with [...] bone markers and restart medication if needed. I also counseled her on healthy exercise patterns for bone disease and the importance of precautions to prevent falls. I've asked her to notify me with any problems or questions, or of any new fractures or complications related to her disease. Thank you for sending your patient to the Bone Health Clinic at [facility]. If you have any questions or concerns please do not hesitate to contact me. REASON FOR VISIT Problem Osteopenia Ms. CONN is being treated for osteopenia. She still obtains calcium through dietary sources [id number] mg per day and she takes vitamin D 2000 units per day. She's been on a holiday from bisphosphonate medications for the past six years after being treated with Fosamax and Actonel for over 11.5 years. She currently does stay physically active participating in her activities of daily living and walksfor exercise. Her medical history is significant for sciatica and degenerative disk disease and she takes tylenolas needed for back pain. She's had 0 falls or fractures in the past year. MEDS Current Outpatient Medications: ??? acetaminophen (TYLENOL) 325 mg tablet ??? cholecalciferol (VITAMIN D-3) 2,000 unit tablet ??? cholecalciferol (VITAMIN D3) 1,000 unit capsule ??? dextran 70-hypromellose, PF, 0.1-0.3 % dropperette ??? ketorolac (ACULAR LS) 0.4 % drops ??? levothyroxine (SYNTHROID, LEVOTHROID) 50 mcg tablet ??? LORazepam (ATIVAN) 0.5 mg tablet ??? loteprednol (LOTEMAX) 0.5 % ophthalmic suspension ??? melatonin 5 mg capsule ??? multivitamin capsule ??? polyvinyl alcohol (LUBRICANT EYE, POLYV ALCOHOL,) 1.4 % ophthalmic solution ??? VITAMIN B COMPLEX ORAL ??? ascorbic acid (VITAMIN C) 100 mg tablet ??? estrogens-methylTESTOSTERone (COVARYX H.S.) 0.625-1.25 mg per tablet ROS Review of Systems Constitutional: Negative for fatigue and fever. HENT: Negative for congestion. Respiratory: Negative for cough and shortness of breath. Cardiovascular: Negative for chest pain. Gastrointestinal: Negative for abdominal distention. Musculoskeletal: Positive for back pain. Negative for arthralgias. Neurological: Negative for dizziness and weakness. The patient-completed Review of Systems was reviewed and was scanned as an attachment to this encounter: HISTORY Medical Conditions Diagnosis ??? Aortic valve disorder ??? Mitral valve disease ??? Osteopenia ??? Disorder of bone ??? Low-tension glaucoma, bilateral, severe stage ??? Nuclear senile cataract, right ??? History of surgical procedure ??? Pseudophakia Family History: family history includes Osteoporosis in her daughter, father, and mother; Other in her father; Scoliosis in her sister. Social History: reports that she has never smoked. She has never used smokeless tobacco. She reports that she does not drink alcohol or use drugs. OBJECTIVE Allergies Allergen Reactions ??? Clarithromycin Hives ??? Metronidazole Hives ??? Sulfa (Sulfonamide Antibiotics) Hives ??? Chloramphenicol Other (See comments) Damaged liver and wiped out white blood cells Body mass index is 20.6 kg/m??. I have reviewed: allergies, current medications, past family history, past medical history, past social history, past surgical history and problem list. EXAM Ht 162.6 cm (5' 4 ) Wt 54.4 kg (120 lb) BMI 20.60 kg/m?? Physical Exam Musculoskeletal: She exhibits no edema, tenderness or deformity. Stable gait Vitals reviewed. ?? BONE MINERAL DENSITY OF THE LUMBAR SPINE ?? Bone Mineral Density (BMD) of the lumbar spine was measured from L1-L4 and the average density was calculated to be 0.811 gm/cm. This corresponds to a T-score standard deviations from the mean of young adults of -2.1. When compared to the previous study of 01/11/2018 there has been no significant change noted. ?? BONE MINERAL DENSITY OF THE PROXIMAL FEMUR ?? Bone Mineral Density (BMD) of the left hip total was found to be 0.822 gm/cm2. This corresponds to a T-score standard deviations from the mean of young adults of -1.0. Femoral neck is 0.672 gm/cm2 with a T-score of -1.6. When compared to the previous study of 01/11/2018 there has been no significantchange noted. ?? SUMMARY: Bone mineral density shows evidence of low bone mass in the hip and spine and moderately increased fracture risk. There has been no significant changes in bone mineral density since previous measurement. RESULTS: 25-OH vit D 43 ng/ml. In 08/04 Sita Magana MD documented in this encounter Miscellaneous Notes * Assessment & Plan Note - Sita Magana MD - 01/30/2019 9:21 PM CDT Associated Problem(s): History of osteoporosis Ms. CONN is currently being treated for [...] bone markers and restart medication if needed. documented in this encounter Plan of Treatment Not on file documented as of this encounter Visit Diagnoses Diagnosis Osteopenia of multiple sites- Primary documented in this encounter Historical Medications * This list may reflect changes made after this encounter. multivitamin capsule Take 1 capsule by mouth daily added in this encounter Care Teams Compact Assembler Relationship Specialty Start Date End Date Jason Winters MD [address] [place] [address] PCP - General Family Medicine 07/23/18 12/15/20 documented as of this encounter
--- OUTSIDE RECORDS SUMMARY | 2024-08-09 17:50 | XMS_ITS | Encounter Summary ---
Author Organization [facility] Address [address] [place] [address] Phone Care Team Providers Care News Intern Name Role Phone Jason Winters MD Primary Care Provider [phone] Encounter Details Date Type Department Care Team (Late st Contact Info) Description 01/31/2019 Orders Only [facility] [address] [place] [address] Diana Mcmahan CMA Social History Tobacco Use Types Packs/Day Years Used Date Smoking Tobacco: Never Smokeless Tobacco: Never Alcohol Use Standard Drinks/Week Comments No 0 (1 standard drink = 0.6 oz pur e alcohol) Comments Unknown Sex and Gender Information Value Date Recorded Sex Assigned at Not on file 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 VITAMIN B COMPLEX ORAL Take 1 tablet by mouth daily 04/05/2016 12/16/2020 ascorbic acid (VITAMIN C) 100 mg tablet Take 100 mg by mouth daily 04/05/2016 12/16/2020 added in this encounter Care Teams News Intern Relationship Specialty Start Date End Date Jason Winters MD [address] [place] [address] PCP - General Family Medicine 07/23/18 12/15/20 documented as of this encounter
--- OUTSIDE RECORDS SUMMARY | 2024-08-09 17:50 | XMS_ITS | Encounter Summary ---
Author Organization [facility] Address [address] [place] [address] Phone Care Team Providers Care Garbage Truck Helper Name Role Phone Unavailable Primary Care Provider Unavailabl e Reason for Visit * Ophthalmology (Routine) - Closed Specialty Diagnoses / Procedures Referred By Contclaudia t Referred To Contact Diagnoses Low-tension glaucoma of right eye, severe stage Low-tension glaucoma of left eye, severe stage Procedures Dyer Visual Field - OU - Both Eyes Christine Kendall MD Phone: tel: fax: [facility]hthalmology [address] [place] [address] Phone: tel: Referral ID Status Reason Start Date Expiration Date Visits Re quested Visits Authorized [id number] Closed 01/18/2018 08/07/2019 1 1 Encounter Details Date Type Department Care Team (Late st Contact Info) Description 01/22/2018 10:00 AM CDT Imaging Exam [facility] Ophthalmology [address] [place] [id number] Low-tension glaucoma of right eye, severe stage; Low-tension glaucoma of left eye, severe stage Social History Tobacco Use Types Packs/Day Years Used Date Smoking Tobacco: Never Alcohol Use Standard Drinks/Week Comments No 0 (1 standard drink = 0.6 oz pur e alcohol) Comments Unknown Sex and Gender Information Value Date Recorded Sex Assigned at Not on file 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 us Christine Kendall MD OPHTH VISUAL FIELD Final Result documented in this encounter Visit Diagnoses Diagnosis Low-tension glaucoma of right eye, severe stage Low-tension glaucoma of left eye, severe stage documented in this encounter Historical Medications * This list may reflect changes made after this encounter. dextran 70-hypromellose, PF, 0.1-0.3 % dropperette Administer 1 drop into both eyes as needed. 1 added in this encounter Eye Exam Visual Acuity (Snellen - Linear) Right eye Left eye Dist sc 20/40 -2 20/30 -2 Dist ph sc 20/25 20/20 -1 Pachymetry (10/07/09) Right eye Left eye Thickness [phone] Pupils Dark React APD Right eye 6 Minimal None Left eye 6 Minimal None Visual Sung Right eye Left eye Restrictions Total inferior nasal deficiency; Partial outer superior temporal deficiency Partial outer inferior temporal, inferior nasal deficiencies Extraocular Movement Right eye Left eye Full, Nystagmus Full, Nystagmus Neuro/Psych Oriented x3: Yes
--- OUTSIDE RECORDS SUMMARY | 2024-08-09 17:50 | XMS_ITS | Encounter Summary ---
Author Organization [facility] Address [address] [place] [address] Phone Care Team Providers Care Translator/Interpreter Name Role Phone Jason Winters MD Primary Care Provider [phone] Encounter Details Date Type Department Care Team (Late st Contact Info) Description 05/11/2020 10:45 AM CDT Office Visit [facility] Ophthalmology 10 [facility] Medical Office Building 2 [address] [place] [address] Christine Kendall MD [address] [facility] DEPT OPHTHALMOLOGY, [facility] [address] [place] [address] Low-tension glaucoma, bilateral, severe stage (Primary Dx); Squamous blepharitis of upper and lower eyelids of both eyes; Nuclear senile cataract, right Social History Tobacco Use Types Packs/Day Years Used Date Smoking Tobacco: Never Smokeless Tobacco: Never Alcohol Use Standard Drinks/Week Comments No 0 (1 standard drink = 0.6 oz pur e alcohol) Comments Unknown Sex and Gender Information Value Date Recorded Sex Assigned at Not on file Legal Sex Female 8:14 PM 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 documented in this encounter Ordered Prescriptions Prescription Sig Dispense Quantity Refills Last Filled Start Date End Date doxycycline hyclate 50 mg tabletIndications: Acne Rosacea Take 1 tablet by mouth daily 30 tablet 11 05/11/2020 0 ketorolac (ACULAR LS) 0.4 % drops Administer 1 drop into both eyes as needed (as needed) 5 mL 3 05/11/2020 1 documented in this encounter Progress Notes * Christine Kendall MD - 05/11/2020 10:45 AM CDT Assessment/Plan Diagnoses and all orders for this visit: Low-tension glaucoma, bilateral, severe stage (Primary) Assessment & Plan: intraocular pressure (IOP) acceptable CPM F/U 6-8months- Dyer visual field (HVF) Squamous blepharitis of upper and lower eyelids of both eyes Assessment & Plan: With overlay of rosacea, give Rx for Doxycycline 50 mg/day low dose Nuclear senile cataract, right Assessment & Plan: Not VS- observe Other orders - ketorolac (ACULAR LS) 0.4 % drops; Administer 1 drop into both eyes as needed (as needed) documented in this encounter Miscellaneous Notes * Assessment & Plan Note - Christine Kendall MD - 05/11/2020 10:05 PM CDT Associated Problem(s): Squamous blepharitis of both eyes (Resolved 06/23/2024) With overlay of rosacea, give Rx for Doxycycline 50 mg/day low dose * Assessment & Plan Note - Christine Kendall MD - 05/11/2020 10:04 PM CDT Associated Problem(s): Age-related nuclear cataract of right eye Not VS- observe * Assessment & Plan Note - Christine Kendall MD - 05/11/2020 10:03 PM CDT Associated Problem(s): Low-tension glaucoma, bilateral, severe stage intraocular pressure (IOP) acceptable CPM F/U 6-8months- Dyer visual field (HVF) * Addendum Note - Vanessa Bejarano B.A. - 05/11/2020 10:45 AM CDTAddended by: VANESSA BEJARANO on: 11/26/2020 03:36 PM Modules accepted: Orders documented in this encounter Plan of Treatment Not on file documented as of this encounter Visit Diagnoses Diagnosis Low-tension glaucoma, bilateral, severe stage- Primary Squamous blepharitis of upper and lower eyelids of both eyes Nuclear senile cataract, right documented in this encounter Discontinued Medications Medication Sig Discontinue Reason Start Date End Da te acetaminophen (TYLENOL) 325 mg tablet take 1 tablet (325MG) by oral route every 4 hours as needed Therapy completed 06/15/2012 05/11/2020 loteprednol (LOTEMAX) 0.5 % ophthalmic suspension Administer 1 drop into both eyes as needed (Uses for irritation) Therapy completed 05/06/2019 05/11/2020 ketorolac (ACULAR LS) 0.4 % drops Administer 1 drop into both eyes as needed (as needed) Reorder 01/21/2019 05/11/2020 documented as of this encounter Eye Exam Visual Acuity (Snellen - Linear) Right eye Left eye Dist sc 20/40 -1 20/30 Dist ph cc 20/40 Tonometry (Applanation, 11:56 AM) Right eye Left eye Pressure 05 02 Wants CJS to check pressure. Used Tonopen to check IOP before dilation Pupils Dark Shape React APD Right eye 6.5 Round NR Left eye 5.5 Round Minimal None Visual Sung Right eye Left eye Restrictions Partial outer inferi or temporal, inferior nasal deficiencies Partial outer inferior temporal, inferior nasal deficiencies Extraocular Movement Right eye Left eye Full Full Neuro/Psych Oriented x3: Yes Mood/Affect: Normal Dilation Both eyes: 1.0% Mydriacyl @ 11:57 AM Glare Testing (BAT) High Right eye 20/80-2 Left eye 20/50-2 External Exam Right eye Left eye External [...] Normal Normal Periphery Normal Normal Care Teams Translator/Interpreter Relationship Specialty Start Date End Date Jason Winters MD [address] [place] [address] PCP - General Family Medicine 07/23/18 12/15/20 documented as of this encounter
--- OUTSIDE RECORDS SUMMARY | 2024-08-09 17:50 | XMS_ITS | Encounter Summary ---
Author Organization [facility] Address [address] [place] [address] Care Team Providers Care Retail Reset Merchandiser Name Role Phone Unavailable Primary Care Provider Unavailabl e Encounter Details Date Type Department Care Team (Late st Contact Info) Description 01/19/2018 Orders Only Ophthalmology Dodie Bear, COMT Low-tension glaucoma of right eye, severe stage (Primary Dx) Social History Tobacco Use Types Packs/Day Years Used Date Smoking Tobacco: Never Alcohol Use Standard Drinks/Week Comments No 0 (1 standard drink = 0.6 oz pur e alcohol) Comments Unknown Sex and Gender Information Value Date Recorded Sex Assigned at Not on file Legal Sex Female 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
--- OUTSIDE RECORDS SUMMARY | 2024-08-09 17:50 | XMS_ITS | Encounter Summary ---
Author Organization [facility] Address [address] [place] [address] Phone Care Team Providers Care Sales Representative Adding Machines Name Role Phone Jason Winters MD Primary Care Provider [phone] Encounter Details Date Type Department Care Team (Late st Contact Info) Description 07/23/2018 10:00 AM WELFARE WORKER Office Visit [facility] Ophthalmology 10 [facility] Medical Office Building [address] [place] [address] Christine Kendall MD [address] [facility] DEPT OPHTHALMOLOGY, [facility] [address] [place] [address] Low-tension glaucoma, bilateral, severe stage (Primary Dx); Nuclear senile cataract, right Social History Tobacco Use Types Packs/Day Years Used Date Smoking Tobacco: Never Alcohol Use Standard Drinks/Week Comments No 0 (1 standard drink = 0.6 oz pur e alcohol) Comments Unknown Sex and Gender Information Value Date Recorded Sex Assigned at Not on file Legal Sex Female 8:14 PM WELFARE WORKER Gender Identity Not on file Sexual Orientation Not on file documented as of this encounter Patient Instructions * Patient Instructions* Christine Kendall MD - 07/23/2018 10:00 AM WELFARE WORKER Dilation instructions Please refer to your Dilating Eyedrops brochure for instructions regarding dilation. ARE WORKER documented in this encounter Progress Notes * Christine Kendall MD - 07/23/2018 10:00 AM CST Assessment/Plan Diagnoses and all orders for this visit: Low-tension glaucoma, bilateral, severe stage (Primary) Assessment & Plan: intraocular pressure (IOP) excellent- blebs functioning well CPM- F/U 6 months- will check visual field (VF) in 1 yr Nuclear senile cataract, right Assessment & Plan: Not visually significant ARE WORKER documented in this encounter Miscellaneous Notes * Assessment & Plan Note - Christine Kendall MD - 07/23/2018 11:42 AM WELFARE WORKER Associated Problem(s): Age-related nuclear cataract of right eye Not visually significant ARE WORKER * Assessment & Plan Note - Christine Kendall MD - 07/23/2018 11:40 AM WELFARE WORKER Associated Problem(s): Low-tension glaucoma, bilateral, severe stage intraocular pressure (IOP) excellent- blebs functioning well CPM- F/U 6 months- will check visual field (VF) in 1 yr ARE WORKER documented in this encounter Plan of Treatment Not on file documented as of this encounter Visit Diagnoses Diagnosis Low-tension glaucoma, bilateral, severe stage- Primary Nuclear senile cataract, right documented in this encounter Discontinued Medications Medication Sig Discontinue Reason Start Date End Da te levothyroxine (SYNTHROID) 25 mcg tablet take 1 by Oral route every day Dose adjustment 08/31/2012 07/23/2018 documented as of this encounter Historical Medications * This list may reflect changes made after this encounter. Medication Sig Dispense Quantity Refills Last Filled Start D ate End Date levothyroxine (SYNTHROID, LEVOTHROID) 50 mcg tablet 05/29/2018 12/16/2020 added in this encounter Eye Exam Visual Acuity (Snellen - Linear) Right eye Left eye Dist sc 20/30 -2 20/25 +1 Dist ph sc 20/20 -2 20/20 - Correction: Glasses Tonometry (Applanation, 11:10 AM) Right eye Left eye Pressure 8.5 11 Pupils Dark Shape React APD Right eye 6.0 Round Minimal None Left eye 5.5 Round Minimal None Visual Sung Right eye Left eye Restrictions Total inferior nasal deficiency; Partial outer superior temporal, inferior temporal deficiencies Partial outer inferior temporal, inferior nasal deficiencies Extraocular Movement Right eye Left eye Full Full Neuro/Psych Oriented x3: Yes Dilation Both eyes: 1.0% Mydriacyl @ 11:11 AM External Exam Right eye Left eye External [...] eye Left eye C/D Ratio 1.0 0.95 Macula Normal Normal Vessels Normal Normal Periphery Normal Normal Care Teams Sales Representative Adding Machines Relationship Specialty Start Date End Date Jason Winters MD [address] [place] [address] PCP - General Family Medicine 07/23/18 12/15/20 documented as of this encounter
--- OUTSIDE RECORDS SUMMARY | 2024-08-09 17:50 | XMS_ITS | Encounter Summary ---
Author Organization [facility] Address [address] [place] [address] Phone Care Team Providers Care Field Tech Name Role Phone Jason Winters MD Primary Care Provider [phone] Reason for Visit * Reason Onset Date Comments Med Management 05/15/2020 Encounter Details Date Type Department Care Team (Late st Contact Info) Description 05/15/2020 Telephone [facility] Ophthalmology [facility] [place] [address] Christine Kendall MD [address] [facility], [facility] [address] [place], [place] [id number] Med Management Social History Tobacco Use Types Packs/Day Years Used Date Smoking Tobacco: Never Smokeless Tobacco: Never Alcohol Use Standard Drinks/Week Comments No 0 (1 standard drink = 0.6 oz pur e alcohol) Comments Unknown Sex and Gender Information Value Date Recorded Sex Assigned at Not on file Legal Sex Female 8:14 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 Refill request sent. * Telephone Encounter - Darek Rincon - 05/15/2020 3:47 PM CDT Pt calling to request Dr. Kendall change doxycycline Rx from tablets to capsules and send to [facility] in [place], [place]. documented in this encounter Plan of Treatment Not on file documented as of this encounter Visit Diagnoses Not on filedocumented in this encounter Care Teams Field Tech Relationship Specialty Start Date End Date Jason Winters MD [address] [place] [address] PCP - General Family Medicine 07/23/18 12/15/20 documented as of this encounter
--- OUTSIDE RECORDS SUMMARY | 2024-08-09 17:50 | XMS_ITS | Encounter Summary ---
Author Organization [facility] Address [address] [place] [address] Phone Care Team Providers Care Medication Manager Name Role Phone Jason Winters MD Primary Care Provider [phone] Christine Kendall MD Unavailable [phone] Sita Magana MD Unavailable [phone] Nabila King MD Primary Care Provider [phone]- [phone] Regulo Pandey MD Unavailable Gigi Méndez MD Unavailable [phone] Bc Martinez MD Unavailable [phone] Bc Martinez MD Unavailable [phone] Martin Correa MD Unavailable [phone] Gildardo Gonzáles Si, MD Unavailable Encounter Details Date Type Department Care Team (Late st Contact Info) Description 05/07/2020 Orders Only [facility] [address] [place] [address] Nabila King MD [address] [address] Social History Tobacco Use Types Packs/Day Years Used Date Smoking Tobacco: Never Smokeless Tobacco: Never Alcohol Use Standard Drinks/Week Comments No 0 (1 standard drink = 0.6 oz pur e alcohol) Comments Unknown Sex and Gender Information Value Date Recorded Sex Assigned at Not on file Legal Sex Female 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 Gender Identity Not on file Sexual Orientation Not on file documented as of this encounter Plan of Treatment Not on file documented as of this encounter Procedures Procedure Name Priority Date/Time Associated Diagnosis Comments SCAN - LABS 05/07/2020 documented in this encounter Results * SCAN - LABS (05/07/2020) Nabila King MD Final Resu lt documented in this encounter Visit Diagnoses Not on filedocumented in this encounter Care Teams Medication Manager Relationship Specialty Start Date End Date Jason Winters MD [address] [place] [address] PCP - General Family Medicine 07/23/18 12/15/20 Nabila King [facility] [address] [place] [address] PCP - General Internal Medicine 12/16/20 Christine Kendall MD [address] [place] [address] Surgeon Ophthalmology 12/13/20 Sita Magana MD [address] [place] [address] Consulting Physician Internal Medicine 12/13/20 Regulo Pandey MD [address] [place] [address] Referring Physician Cardiovascular Disease 12/16/20 Gigi Méndez MD [address] [place] [address] Referring Physician Cardiology 02/18/21 Bc Martinez MD [address] [place] [address] Consulting Physician Cardiology 10/22/21 08/21/23 Bc Martinez MD [address] [place] [address] Referring Physician Cardiology 08/22/23 Martin Correa MD [address] [place] [address] Consulting Physician Cardiothoracic Surgery 08/22/23 [facility] MD [address] [facility] [address] Consulting Physician Neurology 07/09/24 documented as of this encounter
--- OUTSIDE RECORDS SUMMARY | 2024-08-09 17:50 | XMS_ITS | Encounter Summary ---
Author Organization [facility] Address [address] [place] [address] Phone Care Team Providers Care Applications Programmer Analyst Name Role Phone Jason Winters MD Primary Care Provider [phone] Christine Kendall MD Unavailable [phone] Sita Magana MD Unavailable [phone] Nabila King MD Primary Care Provider [phone]- [phone] Regulo Pandey MD Unavailable Gigi Méndez MD Unavailable [phone] Bc Martinez MD Unavailable [phone] Bc Martinez MD Unavailable [phone] Martin Correa MD Unavailable [phone] Gildardo Gonzáles Si, MD Unavailable Encounter Details Date Type Department Care Team (Late st Contact Info) Description 09/09/2019 Orders Only [facility] [address] [place] [address] Nabila King MD [address] [place] [address] Social History Tobacco Use Types Packs/Day Years Used Date Smoking Tobacco: Never Smokeless Tobacco: Never Alcohol Use Standard Drinks/Week Comments No 0 (1 standard drink = 0.6 oz pur e alcohol) Comments Unknown Sex and Gender Information Value Date Recorded Sex Assigned at Not on file Legal Sex Female 8:14 PM 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 Gender Identity Not on file Sexual Orientation Not on file documented as of this encounter Plan of Treatment Not on file documented as of this encounter Procedures Procedure Name Priority Date/Time Associated Diagnosis Comments SCAN - RADIOLOGY/IMAGING 09/09/2019 documented in this encounter Results * SCAN - RADIOLOGY/IMAGING (09/09/2019) Anatomical Region Laterality Modality Other us Nabila King MD Final Resu lt documented in this encounter Visit Diagnoses Not on filedocumented in this encounter Care Teams Applications Programmer Analyst Relationship Specialty Start Date End Date Jason Winters MD [address] [place] [address] PCP - General Family Medicine 07/23/18 12/15/20 Nabila King MD [facility] [address] [place] [address] PCP - General Internal Medicine 12/16/20 Christine Kendall MD [address] [place] [address] Surgeon Ophthalmology 12/13/20 Sita Magana MD [facility] [address] [place] [address] Consulting Physician Internal Medicine 12/13/20 Regulo Pandey MD [address] [place] [address] Referring Physician Cardiovascular Disease 12/16/20 Gigi Méndez MD [address] [place] [address] Referring Physician Cardiology 02/18/21 Bc Martinez MD [address] [place] [address] Consulting Physician Cardiology 10/22/21 08/21/23 Bc Martinez MD [address] [place] [address] Referring Physician Cardiology 08/22/23 Martin Correa MD [address] [place] [address] Consulting Physician Cardiothoracic Surgery 08/22/23 NiviaGildardo Si, MD [address] [facility] [place] [address] Consulting Physician Neurology 07/09/24 documented as of this encounter
--- OUTSIDE RECORDS SUMMARY | 2024-08-09 17:51 | XMS_ITS | Encounter Summary ---
Author Organization [facility] Care Team Providers Care Dx Board Operator Name Role Phone Unavailable Primary Care Provider Unavailabl e Encounter Details Date Type Department Care Team (Latest Contact Info) Description 04/08/2010 9:14 AM CDT - 04/08/2010 2:18 PM CDT Hospital Encounter [facility] Christine Paris MD [address] [facility] [place] [address] Other cataract; Other specified glaucoma; Inflammation or infection of postprocedural bleb of eye; Other and unspecified hyperlipidemia; Esophageal reflux; Hypothyroidism; Irritable colon; Dizziness and giddiness; Migraine; Other malaise and fatigue Social History Tobacco Use Types Packs/Day Years Used Date Smoking Tobacco: Never Assessed Comments Unknown Sex and Gender Information Value Date Recorded Sex Assigned at Not on file Legal Sex Female 8:14 PM EDGE DYER Gender Identity Not on file Sexual Orientation Not on file documented as of this encounter Plan of Treatment Not on file documented as of this encounter Visit Diagnoses Diagnosis Other cataract Other specified glaucoma Inflammation or infection of postprocedural bleb of eye Inflammation (infection) of postprocedural bleb, unspecified Other and unspecified hyperlipidemia Esophageal reflux Hypothyroidism Unspecified hypothyroidism Irritable colon Dizziness and giddiness Migraine Migraine, unspecified, without mention of intractable migraine without mention of status migrainosus Other malaise and fatigue documented in this encounter
--- OUTSIDE RECORDS SUMMARY | 2024-08-09 17:51 | XMS_ITS | Encounter Summary ---
Author Organization [facility] Address [address] [place] [address] Phone Care Team Providers Care Shoe Stainer Name Role Phone Jason Winters MD Primary Care Provider [phone] Jason Winters MD Primary Care Provider [phone] Jason Winters MD Primary Care Provider [phone] Jason Winters MD Primary Care Provider [phone] Jason Winters MD Primary Care Provider [phone] Christine Kendall MD Unavailable [phone] Sita Magana MD Unavailable [phone] Nabila King MD Primary Care Provider + [phone] Regulo Pandey MD Unavailable Gigi Méndez MD Unavailable [phone] Bc Martinez MD Unavailable [phone] Bc Martinez MD Unavailable [phone] Martin Correa MD Unavailable [phone] Gildardo Gonzáles Si, MD Unavailable Encounter Details Date Type Department Care Team (Late st Contact Info) Description 05/15/2012 Orders Only [facility] [address] [place] [address] Scanning, Provider Social History Tobacco Use Types Packs/Day Years Used Date Smoking Tobacco: Never Assessed Comments Unknown Sex and Gender Information Value Date Recorded Sex Assigned at Not on file Legal Sex Female 8:14 PM 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 Gender Identity Not on file Sexual Orientation Not on file documented as of this encounter Plan of Treatment Not on file documented as of this encounter Procedures Procedure Name Priority Date/Time Associated Diagnosis Comments CARDIOLOGY DOCUMENT SCAN 05/15/2012 documented in this encounter Results * SCAN - CARDIOLOGY (05/15/2012) Anatomical Region Laterality Modality Other Provider Scanning CV CARDIAC SERVICES PROCEDURES Final Result documented in this encounter Visit Diagnoses Not on filedocumented in this encounter Care Teams Shoe Stainer Relationship Specialty Start Date End Date Jason Winters MD [address] [place] [address] PCP - General 11/18/16 01/17/18 Jason Winters MD [address] [place] [address] PCP - General 08/05/13 11/17/16 Jason Winters MD [address] [place] [address] PCP - General 05/13/13 08/04/13 Jason Winters MD [address] [place] [address] PCP - General 06/15/12 05/12/13 Jason Winters MD [address] [place] [address] PCP - General Family Medicine 07/23/18 12/15/20 Nabila King MD [address] [facility] [address] [place] [address] PCP - General Internal Medicine 12/16/20 Christine Kendall MD [address] [place] [address] Surgeon Ophthalmology 12/13/20 Sita Magana MD [address] [facility] [address] [place] [address] Consulting Physician Internal Medicine 12/13/20 Regulo Pandey MD [address] [place] [address] [address] [place] [address] Referring Physician Cardiovascular Disease 12/16/20 Gigi Méndez MD [address] [place] [address] [address] [place] [address] Referring Physician Cardiology 02/18/21 Bc Martinez MD [address] [place] [address] Consulting Physician Cardiology 10/22/21 08/21/23 Bc Martinez MD [address] [place] [address] Referring Physician Cardiology 08/22/23 Martin Correa MD [address] [place] [address] Consulting Physician Cardiothoracic Surgery 08/22/23 Gildardo Gonzá[place] [address] [place] [address] [address] [place] [address] Consulting Physician Neurology 07/09/24 documented as of this encounter
--- OUTSIDE RECORDS SUMMARY | 2024-08-09 17:51 | XMS_ITS | Encounter Summary ---
Author Organization [facility] Facility Care Team Providers Care Disease Control Inspector Name Role Phone Unavailable Primary Care Provider Unavailabl e Encounter Details Date Type Department Care Team (Latest Contact Info) Description 05/05/2011 10:24 AM CDT - 05/05/2011 2:30 PM CDT Hospital Encounter [facility] Christine Paris MD [address] [facility], [place] [address] Glaucoma; Osteoporosis; Esophageal reflux; Irritable colon; Other specified cardiac dysrhythmias Social History Tobacco Use Types Packs/Day Years Used Date Smoking Tobacco: Never Assessed Comments Unknown Sex and Gender Information Value Date Recorded Sex Assigned at Not on file Legal Sex Female 8:14 PM GUM MAKER Gender Identity Not on file Sexual Orientation Not on file documented as of this encounter Plan of Treatment Not on file documented as of this encounter Visit Diagnoses Diagnosis Glaucoma Unspecified glaucoma Osteoporosis Unspecified osteoporosis Esophageal reflux Irritable colon Other specified cardiac dysrhythmias documented in this encounter
--- OUTSIDE RECORDS SUMMARY | 2024-08-09 17:51 | XMS_ITS | Encounter Summary ---
Author Organization [facility] Address [address] [place] [address] Phone Care Team Providers Care Legal Instruments Examiner Name Role Phone Jason Winters MD Primary Care Provider [phone] Jason Winters MD Primary Care Provider [phone] Jason Winters MD Primary Care Provider [phone] Christine Kendall MD Unavailable [phone] Sita Magana MD Unavailable [phone] Nabila King MD Primary Care Provider + [phone] Regulo Pandey MD Unavailable Gigi Méndez MD Unavailable [phone] Bc Martinez MD Unavailable [phone] Bc Martinez MD Unavailable [phone] Martin Correa MD Unavailable [phone] Gildardo Gonzáles Si, MD Unavailable Encounter Details Date Type Department Care Team (Late st Contact Info) Description 2016 Orders Only [facility] [address] [place] [address] Nabila King MD [address] [place] [address] Social History Tobacco Use Types Packs/Day Years Used Date Smoking Tobacco: Never Assessed Alcohol Use Standard Drinks/Week Comments No 0 (1 standard drink = 0.6 oz pur e alcohol) Comments Unknown Sex and Gender Information Value Date Recorded Sex Assigned at Not on file Legal Sex Female 8:14 PM INVESTIGATION DIVISION CAPTAIN Gender Identity Not on file Sexual Orientation Not on file documented as of this encounter Plan of Treatment Not on file documented as of this encounter Procedures Procedure Name Priority Date/Time Associated Diagnosis Comments SCAN - LABS 2016 documented in this encounter Results * SCAN - LABS (2016) us Nabila King MD Edited Res ult - Final documented in this encounter Visit Diagnoses Not on filedocumented in this encounter Care Teams Legal Instruments Examiner Relationship Specialty Start Date End Date Jason Winters MD [address] [place] [address] PCP - General 11/18/16 01/17/18 Jason Winters MD [address] [place] [address] PCP - General 08/05/13 11/17/16 Jason Winters MD [address] [place] [address] PCP - General Family Medicine 07/23/18 12/15/20 Nabila King MD [address] [place] [address] [address] PCP - General Internal Medicine 12/16/20 Christine Kendall MD [address] [place] [address] Surgeon Ophthalmology 12/13/20 Sita Magana MD [address] [facility] [address] [place] [address] Consulting Physician Internal Medicine 12/13/20 Regulo Pandey MD [address] [facility] [place] [address] Referring Physician Cardiovascular Disease 12/16/20 Gigi Méndez MD [address] [facility] [place] [address] Referring Physician Cardiology 02/18/21 Bc Martinez MD [address] [place] [address] Consulting Physician Cardiology 10/22/21 08/21/23 Bc Martinez MD [address] [place] [address] Referring Physician Cardiology 08/22/23 Martin Correa MD [address] [place] [address] Consulting Physician Cardiothoracic Surgery 08/22/23 Gildardo Gonzáles Si, MD [address] [place] [address] [address] [place] [address] Consulting Physician Neurology 07/09/24 documented as of this encounter
--- OUTSIDE RECORDS SUMMARY | 2024-08-09 18:03 | XMS_ITS | Continuity of Care Document ---
Author Organization [facility] Address [address] [place] [address] Phone Care Team Providers Care Form Tamper Operator Name Role Phone Calvin HAMMOND, Logan Unavailable Unavailable Advance Directives Directive Yes / No Effective Date File Name No Information Encounters Encounter Description Practice Location Reason(s) For Visit Diagnoses Date Provider Providers Copied on Encounter [facility], [address], [place], [place], [id number], tel:[phone] SEC Niko Andrade No Information Calvin Ford. [address] [place], [address], [place]. tel: [phone] Family History Family Member Type Diagnosis Age At Onset No Information Payers Payer name Insurance type Covered democrat ID Authoriza tion(s) Medicare RR MB [id number] Social History Type Description Quantity Date Captured Comments Sex Female Smoking Status No Information Chief Complaint And Reason For Visit No Information Reason For Referral Reason For Referral No Information History Of Present Illness Encounter Date Complaint History Of Prese nt Illness No Information Functional Status Date Functional Assessmen t No Information Instructions Date Instruction Additional Infor mation No Information Assessments Type Assessment Date No Information Patient Care Teams Name Effective Dates (start - stop) Status Members No Information
--- OUTSIDE RECORDS SUMMARY | 2024-08-09 20:11 | XMS_ITS | Clinical Summary ---
Author Organization [facility] Address [address] [place] [address] Phone Care Team Providers Care Instrument Mechanics Supervisor Name Role Phone Unavailable Primary Care Provider Unavailabl e Social History Tobacco Use Types Packs/Day Years Used Date Smoking Tobacco: Never Assessed Comments Unknown Sex and Gender Information Value Date Recorded Sex Assigned at Not on file Legal Sex Female 11:19 AM BENCH WORKER BINDING Gender Identity Not on file Sexual Orientation [...]
--- OUTSIDE RECORDS SUMMARY | 2024-08-09 20:11 | XMS_ITS | Clinical Summary ---
Author Organization [facility] Address [address] [place] [address]. [place] [address] [place] [address] Care Team Providers Care Industrial Therapist Name Role Phone Regulo Pandey MD Unavailable Stacy King MD Primary Care Provider [phone] Allergies Active Allergy Reactions Criticality Noted Date [...] Problem Noted Date Diagnosed Date Paroxysmal A-fib ([facility]) 03/19/2021 SVT (supraventricular tachycardia) ([facility]) 03/19/2021 Palpitation 12/16/2020 Acute on chronic diastolic heart failure ([facility]) 12/13/2020 Overview (01/12/2021): 2018 echo (+) diastolic [...] mild pulmonary hypertension. Ventricular septal defect (VSD) ([facility]) 2020 Overview (01/12/2021): Found on echo 2018 [...] [facility] [place] [address] Stacy King MD Discharge Disposition: Home or [...] often do you attend chur ch or adventist services? More than 4 times per year 02/15/2021 Do you belong to any clubs o r organizations such as methodist groups, unions, fraternal or athletic groups, or [...] and heating? Not hard at all 02/15/2021 [facility] - [...] place to sleep or slept in a alf (including now)? No 02/15/2021 Comments No Sex [...] Comments Blood Pressure 124/62 07/22/2021 11:25 AM PATIENT TRANSPORTER Pulse 57 07/22/2021 11:25 AM PATIENT TRANSPORTER Temperature 36.3 ??C (97.4 ??F) 02/16/2021 7:22 AM CD T Respiratory Rate 18 02/16/2021 7:22 AM CDT Oxygen Saturation 97% 07/22/2021 11:25 AM PATIENT TRANSPORTER Inhaled Oxygen Concentration - - Weight 55.3 kg (122 lb) 07/22/2021 11:25 AM PATIENT TRANSPORTER Height 160 cm (5' 3 ) 07/22/2021 11:25 AM PATIENT TRANSPORTER Body Mass Index 21.61 07/22/2021 11:25 AM PATIENT TRANSPORTER Plan of Treatment Health Maintenance Due Date [...] this topic Medical Devices Implanted Type Area Decontaminator Device Identifier Shelf Expiration Date Model / Serial / Lot Lead Implant- 2 Implanted:Qty: 1 on 10/25/2021 by Bc Martinez MD Lead Implant BIOTRONIK SOLIA S 45 [id number] / [id number] / Lead Implant- 2 Implanted:Qty: 1 on 10/25/2021 by Bc Martinez MD Lead Implant BIOTRONIK SOLIA S 53 [id number] / [id number] / Pacemaker- 022 Implanted:Qty: 1 on 10/25/2021 by Bc Martinez MD Pacemaker Chest BIOTRONIK EDORA 8 THERESA [id number] / [id number] / Description:MR Conditional u nder following conditions: [...] 3:15 PM Narrative 06/10/2024 3:[address] PM [address] [address] EXAMINATION:MRI lumbar spine with and without contrast [...] Procedure Note Jimbo Tristan MD - 06/10/2024 [place] [address] EXAMINATION:MRI lumbar spine with and without contrast [...] body and 1.2 cm lesion within the [id number] body, both of which demonstrate increased T1 [...] 2:44 PM Narrative 06/10/2024 2:48 PM CDT [address] [address] EXAMINATION:MRI of the thoracic spine with and [...] Procedure Note Jimbo Tristan MD - 06/10/[address] [address] EXAMINATION:MRI of the thoracic spine with and [...] 2:48 PM Narrative 06/10/2024 2:59 PM CDT [place] [address] EXAMINATION:MRI of the face with and without [...] Procedure Note Jimbo Tristan MD - 06/10/2024 [facility] [address] [place], [place] [address] EXAMINATION:MRI of the face with and without [...] 5:38 PM 02/16/2021 12:00 PM Care Teams Industrial Therapist Relationship Specialty Start Date End Date Stacy King MD [address] [facility] [address] [place] [address] PCP - General INTERNAL MEDICINE 12/08/20 Regulo Pandey MD [facility]. [facility] [address] [place] [address] [place] Transcribing Operator Head CARDIOVASCULAR DISEASE 03/21/16
--- OUTSIDE RECORDS SUMMARY | 2024-08-09 20:11 | XMS_ITS | Encounter Summary ---
Author Organization [facility] Address [address] [place] [address] Care Team Providers Care Manager Software Development Name Role Phone Unavailable Primary Care Provider Unavailabl e Encounter Details Date Type Department Care Team (Late st Contact Info) Description 09/11/2020 Lab Requisition [facility] [address] [place], [place] [id number] King Lowe MD [address] [place] [address] [place] [address] Social History Tobacco Use Types Packs/Day Years Used Date Smoking Tobacco: Never Assessed Comments Unknown Sex and Gender Information Value Date Recorded Sex Assigned at Not on file Legal Sex Female 11:19 AM LAYOUT MAN Gender Identity Not on file Sexual Orientation Not on file documented as of this encounter Plan of Treatment Not on file documented as of this encounter Procedures Procedure Name Priority Date/Time Associated Diagnosis Comments SARS-COV-2 PCR [facility] ONLY Routine 09/11/2020 11:20 AM LAYOUT MAN documented in this encounter Visit Diagnoses Not on filedocumented in this encounter
--- OUTSIDE RECORDS SUMMARY | 2024-08-09 20:11 | XMS_ITS | Encounter Summary ---
Author Organization [facility] Address [address] [place] [address]. [place], [place] [address] [place] [address] Care Team Providers Care Sound Effects Supervisor Name Role Phone Regulo Pandey MD Unavailable Nabila King MD Primary Care Provider [phone] Encounter Details Date Type Department Care Team [...] week 02/15/2021 How often do you attend [facility] or yazidism services? More than 4 times per year 02/15/2021 Do you belong to any clubs o r organizations such as latter-day groups, unions, fraternal or athletic groups, or [...] and heating? Not hard at all 02/15/2021 [facility] - Occupational [...] place to sleep or slept in a snf (including now)? No 02/15/2021 Comments No Sex [...] on filedocumented in this encounter Care Teams Sound Effects Supervisor Relationship Specialty Start Date End Date Nabila King MD [address] [place] [address] PCP - General INTERNAL MEDICINE 12/08/20 Regulo Pandey MD [facility]. [place] [address] [place] [address] [place] Instructional Facilitator CARDIOVASCULAR DISEASE 03/21/16 documented as of this encounter
--- OUTSIDE RECORDS SUMMARY | 2024-08-09 20:11 | XMS_ITS | Encounter Summary ---
Author Organization [facility] Address [address] [place] [address] Care Team Providers Care Prop And Scenery Maker Name Role Phone Unavailable Primary Care Provider Unavailabl e Encounter Details Date Type Department Care Team (Late st Contact Info) Description 09/11/2020 12:00 PM LANDS RESOURCE MANAGER Rapid Evaluation [facility] Mobile Testing [address] [place] [address] Social History Tobacco Use Types Packs/Day Years Used Date Smoking Tobacco: Never Assessed Comments Unknown Sex and Gender Information Value Date Recorded Sex Assigned at Not on file Legal Sex Female 11:19 AM LANDS RESOURCE MANAGER Gender Identity Not on file Sexual Orientation Not on file documented as of this encounter Plan of Treatment Not on file documented as of this encounter Visit Diagnoses Not on filedocumented in this encounter
--- OUTSIDE RECORDS SUMMARY | 2024-08-09 20:12 | XMS_ITS | Encounter Summary ---
Author Organization [facility] Address [address] [place] [address]. [place] [address] [place] [address] Care Team Providers Care Researcher Name Role Phone Regulo Pandey MD Unavailable Nabila King MD Primary Care Provider [phone] Reason for Visit * Reason Onset Date Comments Information 07/22/2021 Encounter Details Date Type Department Care Team (Late st Contact Info) Description 07/22/2021 Telephone [facility], [facility] [address] [place], [place] [id number] Gigi Méndez MD [facility]. [facility] [address] [place] [address] Information Social History Tobacco Use [...] How often do you attend chur or mu-ism services? More than 4 times per year [...] and heating? Not hard at all 02/15/2021 [facility] - Occupational Stress Questionnaire Answer [...] place to sleep or slept in a correction (including now)? No 02/15/2021 Comments No Sex [...] COVID-19? No / Unsure 07/22/2021 11:04 AM CENTER DIRECTOR LEAD TEACHER documented as of this encounter Functional Status [...] schedule after she has thought it over. ER DIRECTOR LEAD TEACHER documented in this encounter Plan of Treatment Not on file documented as of this encounter Visit Diagnoses Not on filedocumented in this encounter Care Teams Researcher Relationship Specialty Start Date End Date Nabila King MD [address] [place] [address] PCP - General INTERNAL MEDICINE 12/08/20 Regulo Pandey MD [facility]. [facility] [address] [place] [address] [place] Concrete Spreader CARDIOVASCULAR DISEASE 03/21/16 documented as of this encounter
--- OUTSIDE RECORDS SUMMARY | 2024-08-09 20:12 | XMS_ITS | Encounter Summary ---
Author Organization [facility] Address [address] [place] [address]. [place] [address] [place] [address] Care Team Providers Care Foundry Equipment Mechanic Name Role Phone Regulo Pandey MD Unavailable Nabila King MD Primary Care Provider [phone] Reason for Visit * Reason Onset Date Comments Information 02/18/2021 Encounter Details Date Type Department Care Team (Late st Contact Info) Description 02/18/[address] [address] Vanessa Lucia RN Information Social History Tobacco [...] often do you attend chur ch or rastafarian services? More than 4 times per year 02/15/2021 Do you belong to any clubs o r organizations such as restorationism groups, unions, fraternal or athletic groups, or [...] and heating? Not hard at all 02/15/2021 [facility] - [...] went to her PCP yesterday and the CARTON LETTERING MACHINE OPERATOR thinks the areas are due to the [...] on filedocumented in this encounter Care Teams Foundry Equipment Mechanic Relationship Specialty Start Date End Date Nabila King MD [address] [facility] [address] [place] [address] PCP - General INTERNAL MEDICINE 12/08/20 Regulo aPndey MD [facility]. [facility] [address] [place] [address] [place] Deposit Refund Clerk CARDIOVASCULAR DISEASE 03/21/16 documented as of this encounter
--- OUTSIDE RECORDS SUMMARY | 2024-08-09 20:12 | XMS_ITS | Encounter Summary ---
Author Organization [facility] Address [address] [place] [address]. [place] [address] [place] [address] Care Team Providers Care Cut Off Tender Glass Name Role Phone Regulo Pandey MD Unavailable Nabila King MD Primary Care Provider [phone] Reason for Referral * Imaging (Routine) - Closed Specialty Diagnoses / Procedures Referred By Contac t Referred To Contact Diagnoses Palpitation Paroxysmal atrial fibrillation ([facility] Procedures CLINIC - HOLTER MONITOR - ECG UP TO 48 HRS,COMPLETE Wen Nelson MD [facility]. [facility] [address] [place] [address] Phone: tel: fax: eWn Nelson MD [facility]. [facility] [address] [place] [address] Phone: tel: fax: Referral ID Status Reason Start Date Expiration Date Visits Re quested Visits Authorized [id number] Closed 03/16/2021 04/16/2022 1 1 Reason for Visit * Reason Comments Supraventricular Tachycardia ablation fo llow up Encounter Details Date Type Department Care Team (Late st Contact Info) Description 03/16/2021 9:30 AM CDT Office Visit [facility] [address] [place] [address] Wen Nelson MD [place] [address] [place] [address] Supraventricular Tachycardia (ablation follow up) Social History [...] often do you attend chur ch or baptist services? More than 4 times per year [...] and heating? Not hard at all 02/15/2021 [facility] Occupat ional Health - Occupational Stress [...] Written by the doctors and editors at [facility] What is supraventricular tachycardia (SVT)???--??Supraventricular tachycardia, [...] process is complete. This topic retrieved from [employer] on: Oct 20, 2020. Topic 92124 Version 8.0 Release: 29.1.3 - C29.60 ?2020??[employer] and/or its affiliates.??All rights reserved. figure 1: Normal heart This is a drawing of a normal heart. The heart has 4 chambers: right atrium, left atrium, right ventricle, and left ventricle. Blood flows from the right atrium to the right ventricle through the tricuspid valve. Blood flows from the left atrium to the left ventricle through the mitral valve. Graphic 27194 Version 3.0 figure 2: Person having an ECG This drawing shows a man having an ECG (also called an electrocardiogram or EKG). He has patches, called electrodes, stuck onto his chest, arms, and legs. Wires run from the electrodes to the ECG machine. An ECG measures the electrical activity in the heart. Graphic 22800 Version 2.0 figure 3: Holter monitor People [...] or certain times of the day. Graphic 68493 Version 8.0 figure 4: Cardiac event recorder An event recorder is a portable device patients can use to measure their heart rhythm for a short time. The patient must activate the recorder and hold it to the chest when they feel symptoms. It is useful for patients that have intermittent symptoms that may not be captured with other forms of testing. Graphic 07960 Version 4.0 Consumer Information Use and Disclaimer [...] that is right for you.The use of [employer] content is governed by the [employer] Terms of Use. ??2020 [employer]. All rights reserved. Copyright ?2020??[employer]. and/or its affiliates.??All rights reserved. documented in this encounter Progress Notes * Wen Nelson MD - 03/16/2021 9:30 AM CDT Images from the original note were not included. [place], [place] [address] Cardiac Electrophysiology Outpatient Progress Note Patient name: Escobar Conn Primary Office Equipment Technician: Regulo Pandey MD Primary Care Provider: [...] probability of significant CAD Wen Nelson MD [facility] Cardiac Electrophysiology ; ext. [phone] Pager: [phone] :23 AM documented in this encounter Plan [...] Wen Nelson MD ? 03/26/2021 12:57 PM [place], [place] ??[address] HOLTER MONITOR REPORT Patient Name: ??Escobar Conn : 1935 Monotypist Date: 03/22/2021 ??@ 9:02 AM Performed At: ??[facility] [place], [place] Interpreting Office Equipment Technician: ?? Wen Nelson MD PCP: ??NABILA KING MD Ordering Provider: WEN NELSON MD INDICATION: Palpitations DURATION OF MONITORING: ??24 hours, 09 minutes BASELINE RHYTHM: ??Sinus rhythm HEART RATE: ??Minimum: 40 BPM, Maximum: ??172 BPM, Average: ??59 BPM PAUSES: ??0 (> 2.0 seconds) INTERPRETATION: A 24hrs Holter was analyzed which did include a symptom diary. There were 61000 QRS complexes analyzed. The baseline rhythm was [...] No atrial fibrillation or flutter observed. Interpreting Office Equipment Technician: ?? Dr. Wen Nelson us Wen Nelson MD CV VASCULAR ORDERABLES Cate l Result [facility] * ELECTROCARDIOGRAM (03/16/2021 9:35 AM CDT) 03/16/2021 9:35 AM CDT Narrative [facility] - 03/17/2021 12:50 PM CDT ?[facility], O? [facility] ? Test Date: ?2021-03-16 Pat Name: ? ESCOBAR CONN ? Department: ? Room: ? Gender: ? Female ? Ash Kier Boiler: ?? : ?1935 ? Requested By: WEN NELSON Order Number: [id number] ?Reading : ?? Wen Nelson ? Measurements Intervals ?[place] ? Rate: ? 57 ? P: ?47 WI: ? 170 ?QRS: ?40 QRSD: ? 93 ? T: ?46 QT: ? 414 ? QTc: ?405 ? Interpretive Statements SINUS BRADYCARDIA POSSIBLE RIGHT VENTRICULAR CONDUCTION DELAY Procedure Note Wen Nelson MD - 03/17/2021 [facility], O? [facility] Test Date: 2021-03-16 Pat Name: ESCOBAR CONN Department: Room: Gender: Female Ash Kier Boiler: : 1935 Requested By: WEN NELSON Order Number: [id number] Gregory HAMMOND: Wen Nelson Measurements Intervals [place] Rate: 57 P: 47 WI: 170 QRS: 40 QRSD: 93 T: 46 QT: 414 QTc: 405 Interpretive Statements SINUS BRADYCARDIA POSSIBLE RIGHT VENTRICULAR CONDUCTION DELAY us Wen Nelson MD PROCEDURES-ORDERABLE NO FERMIN RGE Final Result [facility] documented in this encounter Visit Diagnoses Diagnosis SVT (supraventricular tachycardia) ([facility])- Primary Other specified cardiac dysrhythmias Palpitation Palpitations Paroxysmal atrial fibrillation ([facility]) Atrial fibrillation History of radiofrequency ablation (RFA) for complex right atrial arrhythmia documented in this encounter Care Teams Cut Off Tender Glass Relationship Specialty Start Date End Date Nabila King MD [address] [place] [address], [place] [address] PCP - General INTERNAL MEDICINE 12/08/20 Regulo Pandey MD [facility]. [facility] [address] [place] [address] [place] Office Equipment Technician CARDIOVASCULAR DISEASE 03/21/16 documented as of this encounter
--- OUTSIDE RECORDS SUMMARY | 2024-08-09 20:12 | XMS_ITS | Encounter Summary ---
Author Organization [facility] Address [address] [place] [address]. [place] [address] [place] [address] Care Team Providers Care Roll Weigher Name Role Phone Regulo Pandey MD Unavailable Stacy King MD Primary Care Provider [phone] Reason for Visit * Reason Comments Atrial Fibrillation 6-month follow-up Encounter Details Date Type Department Care Team (Late st Contact Info) Description 05/10/2021 10:15 AM CDT Office Visit Jolynn Huggins-Jovan talamantes THREE [facility], [facility] [address], [place] [id number] Renetta Dhillon, ANP-BC [facility]. [address] [place], [place] [address] Atrial Fibrillation (6-month follow-up) Social History Tobacco [...] How often do you attend chur or taoism services? More than 4 times per year 02/15/2021 Do you belong to any clubs o r organizations such as anabaptism groups, unions, fraternal or athletic groups, or [...] and heating? Not hard at all 02/15/2021 [facility] Occupat ional Health - [...] Family: Three times a week ??? Attends Voodoo Services: More than 4 times per year [...] fibrillation documented in this encounter Care Teams Roll Weigher Relationship Specialty Start Date End Date Stacy King MD [address] [place] [address] PCP - General INTERNAL MEDICINE 12/08/20 Regulo Pandey MD [facility]. [facility] [address] [place] [address] [place] Photo Lab Technician CARDIOVASCULAR DISEASE 03/21/16 documented as of this encounter
--- OUTSIDE RECORDS SUMMARY | 2024-08-09 20:12 | XMS_ITS | Encounter Summary ---
Author Organization [facility] - [facility] Address [address] [place] [address]. [place] [address] [place] [address] Care Team Providers Care Director Instructional Material Name Role Phone Regulo Pandey MD Unavailable Nabila King MD Primary Care Provider [phone] Reason for Visit * Reason Onset Date Comments Dizziness 02/19/2021 Encounter Details Date Type Department Care Team (Late st Contact Info) Description 02/19/[address] [address] Vanessa Lucia RN Dizziness Social History Tobacco [...] often do you attend chur ch or christian services? More than 4 times per year [...] and heating? Not hard at all 02/15/2021 [facility] of Occupat ional Health - Occupational [...] to sleep or slept in a senior living (including now)? No 02/15/2021 Comments No Sex [...] filedocumented in this encounter Care Teams Director Instructional Material Relationship Specialty Start Date End Date Nabila King MD [address] [place] [address] PCP - General INTERNAL MEDICINE 12/08/20 Regulo Pandey MD Three [facility]. [address] [place] [address] [place] Title Agent CARDIOVASCULAR DISEASE 03/21/16 documented as of this encounter
--- OUTSIDE RECORDS SUMMARY | 2024-08-09 20:12 | XMS_ITS | Encounter Summary ---
Author Organization [facility] Address [address] [place] [address]. [place] [address] [place] [address] Care Team Providers Care Pickle Pumper Name Role Phone Regulo Pandey MD Unavailable Stacy King MD Primary Care Provider [phone] Reason for Visit * Reason Comments Atrial Fibrillation 3 month check Supraventricular Tachycardia Encounter Details Date Type Department Care Team (Latest Contact Info) Description 07/22/2021 11:15 AM REDUCTION FURNACE OPERATOR HELPER Office Visit Jolynn Cardiovascular-Jovan talamantes THREE [facility], [address] [place] [address] Marsha Mckenzie PA [address] [facility] [address] [place] [address] Atrial Fibrillation (3 month check); [...] How often do you attend chur or shinto services? More than 4 times per year 02/15/2021 Do you belong to any clubs o r organizations such as anglican groups, unions, fraternal or athletic groups, or [...] and heating? Not hard at all 02/15/2021 [facility] of Occupat ional Health - Occupational [...] place to sleep or slept in a care home (including now)? No 02/15/2021 Comments No Sex [...] COVID-19? No / Unsure 07/22/2021 11:04 AM REDUCTION FURNACE OPERATOR HELPER documented as of this encounter Last Filed Vital Signs Vital Sign Reading Time Taken Comments Blood Pressure 124/62 07/22/2021 11:25 AM REDUCTION FURNACE OPERATOR HELPER Pulse 57 07/22/2021 11:25 AM REDUCTION FURNACE OPERATOR HELPER Temperature - - Respiratory Rate - - Oxygen Saturation 97% 07/22/2021 11:25 AM REDUCTION FURNACE OPERATOR HELPER Inhaled Oxygen Concentration - - Weight 55.3 kg (122 lb) 07/22/2021 11:25 AM REDUCTION FURNACE OPERATOR HELPER Height 160 cm (5' 3 ) 07/22/2021 11:25 AM REDUCTION FURNACE OPERATOR HELPER Body Mass Index 21.61 07/22/2021 11:25 AM REDUCTION FURNACE OPERATOR HELPER documented in this encounter Functional Status * [...] Instructions* Mackenzie Sheth - 07/22/2021 11:15 AM REDUCTION FURNACE OPERATOR HELPER Images from the original note were not [...] Be sure to include all prescription and jijx-evi-bzixjup (OTC) drugs, vitamins, and herbal supplements. Bring [...] about the pacemaker. This includes knowing the assistant women's soccer coach, serial number, and date the implant was [...] becomes dislodged Where can I learn more? [place] [employer] https://www.heart.org/en/health-topics/arrhythmia/prevention--waspalliz-la-chxwl thmia/pacemaker UpToDate https://www.RewarderdaYarraa.com/contents/dxdshtammp-wsdmad-uow-basics?view=print Last Reviewed Date 2020-12-15 Consumer Information Use [...] right for you. Copyright Copyright ?? 2020 [employer]. and its affiliates and/or licensors. All rights reserved. CTION FURNACE OPERATOR HELPER documented in this encounter Progress Notes * Marsha Mckenzie, CHRIS - 07/22/2021 11:15 AM CSTSummary: Follow up Images from the original note were not included. [place], [place] [address] Cardiac Electrophysiology Outpatient Progress Note Patient name: Lisa Conn Primary Sql Ssis Developer: Regulo Pandey MD Primary Care Provider: STACY [...] had an episode of syncope in the [employer] parking lot after her flu shot. She [...] probability of significant CAD LLOYD Edwards MD [facility] Cardiac Electrophysiology ; ext. 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. [facility] [address] [place] [address] [place] Sql Ssis Developer CARDIOVASCULAR DISEASE 03/21/16 documented as of this encounter
--- OUTSIDE RECORDS SUMMARY | 2024-08-09 20:12 | XMS_ITS | Encounter Summary ---
Author Organization [facility] Address [address] [place] [address]. [place], [place] [address] [place] [address] Care Team Providers Care Scagliola Mechanic Name Role Phone Regulo Pandey MD Unavailable Nabila King MD Primary Care Provider [phone] Encounter Details Date Type Department Care Team [...] week 02/15/2021 How often do you attend [facility] or judaism services? More than 4 times per year 02/15/2021 Do you belong to any clubs o r organizations such as rastafarian groups, unions, fraternal or athletic groups, or [...] on filedocumented in this encounter Care Teams Scagliola Mechanic Relationship Specialty Start Date End Date Nabila King MD [address] [place] [address] PCP - General INTERNAL MEDICINE 12/08/20 Regulo Pandey MD Three [facility]. [place] [address] [place] [address] [place] [facility] And Wellness Manager CARDIOVASCULAR DISEASE 03/21/16 documented as of this encounter
--- OUTSIDE RECORDS SUMMARY | 2024-08-09 20:12 | XMS_ITS | Encounter Summary ---
Author Organization [facility] Address [address] [place] [address]. [place], [place] [address] [place] [address] Care Team Providers Care Evaporative Cooler Installer Name Role Phone Regulo Pandey MD Unavailable Nabila King MD Primary Care Provider [phone] Encounter Details Date Type Department Care Team [...] week 02/15/2021 How often do you attend [facility] or religion services? More than 4 times per year 02/15/2021 Do you belong to any clubs o r organizations such as mu-ism groups, unions, fraternal or athletic groups, or [...] and heating? Not hard at all 02/15/2021 [facility] of Occupat ional Health - Occupational [...] on filedocumented in this encounter Care Teams Evaporative Cooler Installer Relationship Specialty Start Date End Date Nabila King MD [address] [place] [address] PCP - General INTERNAL MEDICINE 12/08/20 Regulo Pandey MD [facility]. [address] [place] [address] [place] Gm/Svp Global Publisher Business CARDIOVASCULAR DISEASE 03/21/16 documented as of this encounter
--- OUTSIDE RECORDS SUMMARY | 2024-08-09 20:12 | XMS_ITS | Encounter Summary ---
Author Organization [facility] Address [address] [place] [address]. [place], [place] [address] [place] [address] Care Team Providers Care Water Resources Business Segment Leader Name Role Phone Regulo Pandey MD Unavailable Nabila King MD Primary Care Provider [phone] Encounter Details Date Type Department Care Team [...] week 02/15/2021 How often do you attend [facility] or voodoo services? More than 4 times per year 02/15/2021 Do you belong to any clubs o r organizations such as roman catholic groups, unions, fraternal or athletic groups, or [...] and heating? Not hard at all 02/15/2021 [facility] of Occupat ional Health - [...] place to sleep or slept in a [facility] (including now)? No 02/15/2021 Comments No Sex [...] on filedocumented in this encounter Care Teams Water Resources Business Segment Leader Relationship Specialty Start Date End Date Nabila Kign MD [address] [place] [address] PCP - General INTERNAL MEDICINE 12/08/20 Regulo Pandey MD Three [facility]. [address] [place] [address] [place] Desktop Support Specialist CARDIOVASCULAR DISEASE 03/21/16 documented as of this encounter
--- OUTSIDE RECORDS SUMMARY | 2024-08-09 20:12 | XMS_ITS | Encounter Summary ---
Author Organization [facility] Address [address] [place] [address]. [place] [address] [place] [address] Care Team Providers Care Design Verification Engineer Name Role Phone Regulo Pandey MD Unavailable Nabila King MD Primary Care Provider [phone] Reason for Visit * Reason Onset Date Comments Results 03/26/2021 Encounter Details Date Type Department Care Team (Late st Contact Info) Description 03/26/[address] [address] Vanessa Lucia, BRENNON Results Social [...] often do you attend chur ch or scientologist services? More than 4 times per year 02/15/2021 Do you belong to any clubs o r organizations such as hinduism groups, unions, fraternal or athletic groups, or [...] 02/15/2021 [facility] of Occupat ional Health - Occupational Stress [...] place to sleep or slept in a nursing home (including now)? No 02/15/2021 Comments No [...] on filedocumented in this encounter Care Teams Design Verification Engineer Relationship Specialty Start Date End Date Nabila King MD [address] [place] [address], [place] [address] PCP - General INTERNAL MEDICINE 12/08/20 Regulo Pandey MD Three [facility]. [facility] [address] [place] [address] [place] Health And Safety Specialist CARDIOVASCULAR DISEASE 03/21/16 documented as of this encounter
--- OUTSIDE RECORDS SUMMARY | 2024-08-09 20:12 | XMS_ITS | Encounter Summary ---
Author Organization [facility] Address [address] [place] [address]. [place], [place] [address] [place] [address] Care Team Providers Care Channeler Outsole Name Role Phone Regulo Pandey MD Unavailable Nabila King MD Primary Care Provider [phone] Encounter Details Date Type Department Care Team [...] week 02/15/2021 How often do you attend [facility] or worship services? More than 4 times per year 02/15/2021 Do you belong to any clubs o r organizations such as zoroastrianism groups, unions, fraternal or athletic groups, or [...] and heating? Not hard at all 02/15/2021 [facility] of Occupat ional Health - [...] on filedocumented in this encounter Care Teams Channeler Outsole Relationship Specialty Start Date End Date Nabila King MD [address] [place] [address] PCP - General INTERNAL MEDICINE 12/08/20 Regulo Pandey MD Three [facility]. [address] [place] [address] [place] Head Of Drama CARDIOVASCULAR DISEASE 03/21/16 documented as of this encounter
--- OUTSIDE RECORDS SUMMARY | 2024-08-09 20:12 | XMS_ITS | Encounter Summary ---
Author Organization [facility] Address [address] [place] [address]. [place], [place] [address] [place] [address] Care Team Providers Care Mine Wedge Sawyer Name Role Phone Regulo Pandey MD Unavailable Nabila Mcfadden MD Primary Care Provider [phone] Reason for Referral * Imaging (Routine) - Closed Specialty Diagnoses / Procedures Referred By Dylanac t Referred To Contact RADIOLOGY Diagnoses SVT (supraventricular tachycardia) ([facility]) Procedures XA SVT WPW ABLATION Wen [place] MD Three [facility]. [address] [address] Phone: tel: fax: Referral ID Status Reason Start Date Expiration Date Visits Re quested Visits Authorized [id number] Closed 01/26/2021 02/15/2021 1 1 Reason for Visit * Auth/Cert Specialty Diagnoses / Procedures Referred By John bojorquez Referred To Contact Diagnoses SVT (supraventricular tachycardia) ([facility]) Procedures XA SVT WPW ABLATION Referral ID Status Reason Start Date Expiration Date Visits Re quested Visits Authorized [id number] 1 1 Encounter Details Date Type Department Care Team (Late st Contact Info) Description 02/15/2021 10:09 AM CDT - 02/16/2021 9:55 AM CDT Hospital Encounter [facility] Telemetry Unit [place], [place] [id number] Wen [place] MD Three [facility] [place] [place] [address] Hector Faust MD [address] [facility] [address] [place] [address] Jose Muñoz, JONAH [address] [place], [place] [address] Discharge Disposition: Home or Self Care (Routine [...] How often do you attend chur or temple services? More than 4 times per year [...] and heating? Not hard at all 02/15/2021 [facility] [place] of Occupat ional Health - Occupational Stress [...] place to sleep or slept in a detention (including now)? No 02/15/2021 Comments No Sex [...] climbing stairs? No 02/15/2021 5:41 PM CDT Shruthi Crane RN Act carlos * Question Answer [...] Reason for follow up: S/p ablation Primary Crankshaft Straightener: Dannie EP Crankshaft Straightener: Leslie CC: Escobar Conn is a 85-year-old [...] apixaban 5 mg Oral BID ??? B wvhszyj-M-lpqty acid 0.8 mg 1 tablet Oral Daily [...] encounter of 02/15/21 ECG 12 lead Narrative [address] Test Date: 2021-02-15 Pat Name: ESCOBAR CONN Department: Room: A418 Gender: Female Wood Turning Lathe Operator: ROSIE : 1935 Requested By: WEN NELSON Order Number: [id number] Reading MD: Loretta Tesfaye Measurements Intervals [place] Rate: 45 P: 29 MT: 176 QRS: 40 QRSD: 83 T: 43 QT: 436 QTc: 379 Interpretive Statements SINUS BRADYCARDIA SEPTAL MYOCARDIAL INFARCTION , OF INDETERMINATE AGE Compared to ECG 12/08/2020 09:55:44 No significant changes ECG 12 lead - Today N[facility]ative [facility] Test Date: 2021-02-15 Pat Name: ESCOBAR CONN Department: Room: A418 Gender: Female Wood Turning Lathe Operator: LOGAN : 1935 Requested By: WEN NELSON Order Number: [id number] Reading MD: Loretta Tesfaye Measurements Intervals [place] Rate: 46 P: 21 MT: 175 QRS: 42 QRSD: 87 T: 37 [...] through Care Everywhere. * Supraventricular Tachycardia (SVT) (Cymro) * Atrial Fibrillation Discharge Instructions (Cymro) * CARDIAC CATHETER ABLATION (UPPER SORBIAN) * Cardioversion (Cymro) * Apixaban, ADULT (Cymro) documented in this encounter Medications at Time [...] PCP: Nabila Mcfadden Insurance Plan: Med [facility] Financial: Denies any concerns. CM priced [...] Private residence Behavior Oriented;Cooperative Communication Talks;Understands speaking;Understands Cymro Anticipated DC Plan Living Arrangements Alone Support [...] during recuperation were discussed with the patient/family/personal international sales representative. Reasonable alternatives to the patient's proposed procedure/surgery including benefits, risks, and side effects related to the alternatives and the risks related to not receiving the proposed care were also discussed with the patient/family/personal international sales representative. Questions were answered and the patient /family/personal international sales representative verbalized understanding and desires to proceed. Source Note - Wen [place] MD - 01/26/2021 1:00 PM CDT Images from the original note were not included. [place], [place] [address] Cardiac Electrophysiology Outpatient Progress Note Patient name: Escobar Conn Primary Crankshaft Straightener: Regulo Pandey MD Primary Care Provider: NABILA [...] hypertension. EKG: SB, RV conduction delay, septal RI (old) Other Imaging: CT calcium score: Total Score: 0 No plaque, very low risk, very unlikely for probability of significant CAD Wen [place] MD [facility] Cardiac Electrophysiology ; ext. [phone] Pager: [phone] 11:13 PM documented in this encounter OR Notes * Brief Op Note - Wen [place] MD - 02/15/2021 4:27 PM CDT ELECTROPHYSIOLOGY SERVICE: POST-AT/AFL ABLATION PROCEDURE NOTE Procedure Date: 02/15/2021 Social Media Coordinator(s): Wen [place] MD Anesthesia: General anesthesia [...] Follow-up in 4 weeks Wen [place] MD [facility] Cardiac Electrophysiology Pager: [phone] documented in this encounter Plan of Treatment [...] PM CDT) 02/15/2021 4:53 PM CDT Narrative [facility] - 02/15/2021 10:48 PM CDT ?[facility] ? [address] [place] ? Test Date: ?2021-02-15 Pat Name: ? ESCOBAR CONN ? Department: ? Room: ? A418 Gender: ? Female ? Wood Turning Lathe Operator: ?? SH : ?1935 ? Requested By: WEN LESLIE Order Number: [id number] ? Reading MD: ?? Loretta Mera ? Measurements Intervals ?[place] ? Rate: ? 46 ? P: ?21 MT: ? 175 ?QRS: ?42 QRSD: ? 87 ? T: ?37 QT: ? 498 ? QTc: ?438 ? Interpretive Statements SINUS BRADYCARDIA WITH SINUS ARRHYTHMIA SEPTAL MYOCARDIAL INFARCTION, OF INDETERMINATE AGE Compared to ECG 02/15/2021 11:17:23 No significant changes Procedure Note Loretta Tesfaye MD - 02/15/[address] [place] [address] Test Date: 2021-02-15 Pat Name: ESCOBAR CONN Department: Room: A418 Gender: Female Wood Turning Lathe Operator: : 1935 Requested By: WEN NELSON Order Number: [id number] Reading MD: Loretta Tesfaye Measurements Intervals [place] Rate: 46 P: 21 MT: 175 QRS: 42 QRSD: 87 T: 37 QT: 498 QTc: 438 Interpretive Statements SINUS BRADYCARDIA WITH SINUS ARRHYTHMIA SEPTAL MYOCARDIAL INFARCTION, OF INDETERMINATE AGE Compared to ECG 02/15/2021 11:17:23 No significant changes us Wen [place] MD ECG ORDERABLES Final Resul t [facility] ([facility] RAD * XA SVT WPW ABLATION (02/15/2021 4:31 PM CDT) Anatomical Region Laterality Modality Cardiac Insurance Collector Narrative 02/17/2021 2:55 PM CDT [facility] CARDIAC CATHETERIZATION/EP LAB [phone] SVT Ablation Patient? s Name: ?? Escobar Conn Date of : ?? 1935 Medical Record: ??#[id number] Account: ??#[id number] Physician: ??Wen [place] MD Date: ?? 02/15/2021 Procedure: ?? #[id number] History: 85-year-old female with paroxysmal supraventricular tachycardia. [...] ms QRS ??95 ms QT ??466 ms MT ??163 ms AH ?? 89 ms HV [...] ?02/15/21 Transcribed: ??02/16/21 us Wen Nelson MD CREDIT INTERN Final Resul t * ECG 12 lead (02/15/2021 11:17 AM CDT) 02/15/2021 11:1 7 AM CDT Narrative [facility] - 02/15/2021 10:49 PM CDT ?[facility] ? [address] [facility] ? Test Date: ?2021-02-15 Pat Name: ? ESCOBAR CONN ? Department: ? Room: ? A418 Gender: ? Female ? Wood Turning Lathe Operator: ?? JMV : ?1935 ? Requested By: WEN NELSON Order Number: [id number] ? Reading : ?? Loretta Tesfaye ? Measurements Intervals ?[place] ? Rate: ? 45 ? P: ?29 MT: ? 176 ?QRS: ?40 QRSD: ? 83 ? T: ?43 QT: ? 436 ? QTc: ?379 ? Interpretive Statements SINUS BRADYCARDIA SEPTAL MYOCARDIAL INFARCTION , OF INDETERMINATE AGE Compared to ECG 12/08/2020 09:55:44 No significant changes Procedure Note Loretta Tesfaye MD - 02/15/[address] [place] Test Date: 2021-02-15 Pat Name: ESCOBAR CONN Department: Room: A418 Gender: Female Wood Turning Lathe Operator: ROSIE : 1935 Requested By: WEN NELSON Order Number: [id number] Reading MD: Loretta Tesfaye Measurements Intervals [place] Rate: 45 P: 29 MT: 176 QRS: 40 QRSD: 83 T: 43 QT: 436 QTc: 379 Interpretive Statements SINUS BRADYCARDIA SEPTAL MYOCARDIAL INFARCTION , OF INDETERMINATE AGE Compared to ECG 12/08/2020 09:55:44 No significant changes us Wen Nelson MD ECG ORDERABLES Final Resul t [facility] ([facility] documented in this encounter Visit Diagnoses Diagnosis Typical atrial flutter (CMS/HCC HHS/HCC)- Primary Atrial flutter SVT (supraventricular tachycardia) ([facility]) Other specified cardiac dysrhythmias documented in [...] (Given - Provider: Vicenta Vazquez RN) B vnkwayz-M-yczed acid 0.8 mg (DIALYVITE/NEPHRO-JOSE) tablet 1 tablet [...] RN) documented in this encounter Care Teams Mine Wedge Sawyer Relationship Specialty Start Date End Date Nabila Mcfadden MD [address] [place] [address] PCP - General INTERNAL MEDICINE 12/08/20 Regulo Pandey MD [address] [address] [place] Crankshaft Straightener CARDIOVASCULAR DISEASE 03/21/16 documented as of this encounter
--- OUTSIDE RECORDS SUMMARY | 2024-08-09 20:12 | XMS_ITS | Encounter Summary ---
Author Organization [facility] - [facility] Address [address] [place] [address]. [place] [address] [place] [address] Care Team Providers Care Orientation And Mobility Instructor Name Role Phone Regulo Pandey MD Unavailable Nabila King MD Primary Care Provider [phone] Reason for Visit * Reason Onset Date Comments Concerns 05/03/2021 Encounter Details Date Type Department Care Team (Late st Contact Info) Description 05/03/[address] [address] Ivory Lyn RN Concerns Social History Tobacco [...] often do you attend chur ch or lutheran services? More than 4 times per year [...] on filedocumented in this encounter Care Teams Orientation And Mobility Instructor Relationship Specialty Start Date End Date Nabila King MD [address] [place] [address] PCP - General INTERNAL MEDICINE 12/08/20 Regulo Pandey MD Three [facility]. [address] [place] [address] Margaret Lucerne Farmer CARDIOVASCULAR DISEASE 03/21/16 documented as of this encounter
--- OUTSIDE RECORDS SUMMARY | 2024-08-09 20:12 | XMS_ITS | Encounter Summary ---
Author Organization [facility] Address [address] [place] [address]. [place] [address] [place] [address] Care Team Providers Care Materials Tech Name Role Phone Regulo Pandey MD Unavailable Nabila King MD Primary Care Provider [phone] Reason for Visit * Auth/Cert Specialty Diagnoses / Procedures Referred By Contac t Referred To Contact Diagnoses SVT (supraventricular tachycardia) ([facility]) Procedures XA SVT WPW ABLATION Referral ID Status Reason Start Date Expiration Date Visits Re quested Visits Authorized [id number] 1 1 Encounter Details Date Type Department Care Team (Late st Contact Info) Description 02/15/2021 1:10 PM CDT Anesthesia Event [facility] [place] [address] Lorenzo Roper MD [address] [address] Hector Faust MD [address] [facility] [address] [place] [address] Anesthesia Record Procedure Summary Procedure Name Responsible Anesthesiologist Anesthesia Start Time Anesthesia Stop Time XA SVT WPW ABLATION Lorenzo Roper MD 02/15/21 1310 02/15/21 1645 Events Date Time Event Comment 02/15/2021 1102 1102 AN Anesthesia Prepped 1135 AN LACE ROLLER OPERATOR Prepped 1310 An Start Data 1310 An [...] often do you attend chur ch or yarsanism services? More than 4 times per year 02/15/2021 Do you belong to any clubs o r organizations such as yazidi groups, unions, fraternal or athletic groups, or [...] CDT documented in this encounter Care Teams Materials Tech Relationship Specialty Start Date End Date Nabila King MD [address] [place] [address] PCP - General INTERNAL MEDICINE 12/08/20 Regulo Pandey MD [facility]. [address] [place] [address] [place] Concession Supervisor CARDIOVASCULAR DISEASE 03/21/16 documented as of this encounter
--- OUTSIDE RECORDS SUMMARY | 2024-08-09 20:12 | XMS_ITS | Encounter Summary ---
Author Organization [facility] Address [address] [place] [address]. [address] Care Team Providers Care Mold Car Pusher Name Role Phone Regulo Pandey MD Unavailable Nabila King MD Primary Care Provider [phone] Reason for Visit * Reason Onset Date Comments Information 07/23/2021 Encounter Details Date Type Department Care Team (Late st Contact Info) Description 07/23/[address] [address] Vanessa Lucia RN Information Social History Tobacco [...] often do you attend chur ch or jehovah's witness services? More than 4 times per year [...] COVID-19? No / Unsure 07/22/2021 11:04 AM SIGNAL APPRENTICE documented as of this encounter Functional Status [...] to reach her and answered her questions. AL APPRENTICE * CHRIS Vieyra - 07/23/2021 3:16 PM CST Called at 3:15 pm. Rang and rang and then eventually it hung up. No machine. Will try to call againbefore I leave. AL APPRENTICE * Vanessa Lucia RN - 07/23/2021 9:31 [...] no further questions. Message to Rosana PEREZ. AL APPRENTICE documented in this encounter Plan of Treatment Not on file documented as of this encounter Visit Diagnoses Not on filedocumented in this encounter Care Teams Mold Car Pusher Relationship Specialty Start Date End Date Nabila King MD [address] [place] [address] PCP - General INTERNAL MEDICINE 12/08/20 Regulo Pandey MD [facility]. [facility] [address] [place], [place] [address] [place] Residential Sales Consultant CARDIOVASCULAR DISEASE 03/21/16 documented as of this encounter
--- OUTSIDE RECORDS SUMMARY | 2024-08-09 20:12 | XMS_ITS | Encounter Summary ---
Author Organization [facility] Address [address] [place] [address]. [place] [address] [place] [address] Care Team Providers Care Wood Fuel Pelletizer Name Role Phone Regulo Pandey MD Unavailable Stacy King MD Primary Care Provider [phone] Reason for Referral * Imaging (Routine) - Closed Specialty Diagnoses / Procedures Referred By Contac t Referred To Contact RADIOLOGY Diagnoses Cervical radiculopathy Procedures MRI CERV SPINE WWO CON Stacy King MD [address] [place] [address] Phone: tel: fax: Referral ID Status Reason Start Date Expiration Date Visits Re quested Visits Authorized [id number] Closed 04/08/2024 10/07/2024 1 1 Encounter Details Date Type Department Care Team (Late st Contact Info) Description 04/12/2024 12:45 PM CDT - 04/12/2024 11:59 PM CDT Hospital Encounter [facility] [place] [address] Stacy King MD [address] [place] [address] Discharge Disposition: Home or Self Care (Routine [...] often do you attend chur ch or orthodox services? More than 4 times per year 02/15/2021 Do you belong to any clubs o r organizations such as quaker groups, unions, fraternal or athletic groups, or [...] and heating? Not hard at all 02/15/2021 [facility] [place] of Occupat ional Health - Occupational Stress [...] 2:21 PM Narrative 04/17/2024 2:[address] [address] EXAMINATION:MRI of the cervical spine with and [...] Procedure Note Jimbo Tristan MD - 04/17/[address] [address] EXAMINATION:MRI of the cervical spine with and [...] Arm documented in this encounter Care Teams Wood Fuel Pelletizer Relationship Specialty Start Date End Date Stacy King MD [address] [place] [address] PCP - General INTERNAL MEDICINE 12/08/20 Regulo Pandey MD Three [facility]. [address] [place] [address] [place] Manager Market Intelligence CARDIOVASCULAR DISEASE 03/21/16 documented as of this encounter
--- OUTSIDE RECORDS SUMMARY | 2024-08-09 20:12 | XMS_ITS | Encounter Summary ---
Author Organization [facility] Address [address] [place] [address]. [place], [place] [address] [place] [address] Care Team Providers Care Biofuels Research Scientist Name Role Phone Regulo Pandey MD Unavailable Stacy King MD Primary Care Provider [phone] Reason for Referral * Imaging (Routine) - Closed Specialty Diagnoses / Procedures Referred By Contac t Referred To Contact RADIOLOGY Diagnoses Dental infection Cervical radiculopathy Procedures MRI FACIAL WWO CON MRI FACIAL W CON Stacy King MD [address] [place] [address] Phone: tel: fax: Referral ID Status Reason Start Date Expiration Date Visits Re quested Visits Authorized [id number] Closed 04/28/2024 10/25/2024 1 1 * Imaging (Urgent) - Closed Specialty Diagnoses / Procedures Referred By Contac t Referred To Contact RADIOLOGY Diagnoses 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 Lumbar radiculopathy Procedures MRI LUMB SPINE WWO CON Stacy King MD [address] [place] [address] Phone: tel: fax: Referral ID Status Reason Start Date Expiration Date Visits Re quested Visits Authorized [id number] Closed 04/20/2024 10/19/2024 1 1 * Imaging (Urgent) - Closed Specialty Diagnoses / Procedures Referred By John bojorquez Referred To Contact RADIOLOGY Diagnoses Vertebro-basilar artery syndrome Thoracic radiculopathy Procedures MRI THOR SPINE WWO CON Stacy King MD [address] [place] [address] Phone: tel: fax: Referral ID Status Reason Start Date Expiration Date Visits Re quested Visits Authorized [id number] Closed 04/20/2024 10/19/2024 1 1 Reason for Visit * Imaging (Urgent) - Closed Specialty Diagnoses / Procedures Referred By John bojorquez Referred To Contact RADIOLOGY Diagnoses Vertebro-basilar artery syndrome Thoracic radiculopathy Procedures MRI THOR SPINE WWO CON Stacy King MD [address] [place] [address] Phone: tel: fax: Referral ID Status Reason Start Date Expiration Date Visits Re quested Visits Authorized [id number] Closed 04/20/2024 10/19/2024 1 1 Encounter Details Date Type Department Care Team (Late st Contact Info) Description 06/10/2024 11:00 AM CDT - 06/10/2024 11:59 PM CDT Hospital Encounter [facility] MRI [address] [facility] [place] [address] Stacy King MD [address] [place] [address] Discharge Disposition: Home or Self Care (Routine [...] How often do you attend chur or oriental orthodox services? More than 4 times per year 02/15/2021 Do you belong to any clubs o r organizations such as evangelical groups, unions, fraternal or athletic groups, or [...] and heating? Not hard at all 02/15/2021 [facility] [place] of Occupat ional Health - Occupational Stress [...] place to sleep or slept in a usp (including now)? No 02/15/2021 Comments No Sex [...] 3:15 PM Narrative 06/10/2024 3:[address] [address] EXAMINATION:MRI lumbar spine with and without contrast [...] Procedure Note Jimbo Tristan MD - 06/10/[address] [address] EXAMINATION:MRI lumbar spine with and without contrast [...] body and 1.2 cm lesion within the [id number] body, both of which demonstrate increased T1 [...] 2:44 PM Narrative 06/10/2024 2:[address] PM [address]T [address] [address] EXAMINATION:MRI of the thoracic spine with and [...] Procedure Note Jimbo Tristan MD - 06/10/[address] [address] EXAMINATION:MRI of the thoracic spine with and [...] 2:48 PM Narrative 06/10/2024 2:59 PM CDT [address] [address] EXAMINATION:MRI of the face with and without [...] Procedure Note Jimbo Tristan MD - 06/10/[address] [address] EXAMINATION:MRI of the face with and without [...] Arm documented in this encounter Care Teams Biofuels Research Scientist Relationship Specialty Start Date End Date Stacy King MD [address] [place] [address] PCP - General INTERNAL MEDICINE 12/08/20 Regulo Pandey MD Three [facility]. [address] [place] [address] Taylor Compound Coating Machine Offbearer CARDIOVASCULAR DISEASE 03/21/16 documented as of this encounter
--- OUTSIDE RECORDS SUMMARY | 2024-08-09 20:12 | XMS_ITS | Encounter Summary ---
Author Organization [facility] Address [address] [place] [address]. [place], [place] [address] [place] [address] Care Team Providers Care Oil And Gas Specialist Name Role Phone Regulo Pandey MD Unavailable Nabila King MD Primary Care Provider [phone] Encounter Details Date Type Department Care Team [...] week 02/15/2021 How often do you attend [facility] or anabaptism services? More than 4 times per year 02/15/2021 Do you belong to any clubs o r organizations such as taoism groups, unions, fraternal or athletic groups, or [...] and heating? Not hard at all 02/15/2021 [facility] of Occupat ional Health - [...] place to sleep or slept in a halfway (including now)? No 02/15/2021 Comments No Sex [...] COVID-19? No / Unsure 07/22/2021 11:04 AM LOCAL SALES MANAGER documented as of this encounter Functional Status [...] on filedocumented in this encounter Care Teams Oil And Gas Specialist Relationship Specialty Start Date End Date Stabell, Nabila, MD [address] [place] [address] PCP - General INTERNAL MEDICINE 12/08/20 Regulo Pandey MD Three [facility]. [address] [place] [address] [place] Bench Chemist CARDIOVASCULAR DISEASE 03/21/16 documented as of this encounter
--- OUTSIDE RECORDS SUMMARY | 2024-08-09 20:12 | XMS_ITS | Encounter Summary ---
Author Organization [facility] Address [address] [place] [address]. [place] [address] [place] [address] Care Team Providers Care Software Applications Designer Name Role Phone Regulo Pandey MD Unavailable Stacy King MD Primary Care Provider [phone] Encounter Details Date Type Department Care Team (Late st Contact Info) Description 03/23/2021 [facility] Documentation [place] [address] [address] Abstract, Doc Prevea Social History Tobacco Use [...] often do you attend chur ch or christianity services? More than 4 times per year 02/15/2021 Do you belong to any clubs o r organizations such as advent groups, unions, fraternal or athletic groups, or [...] place to sleep or slept in a residential (including now)? No 02/15/2021 Comments No Sex [...] from the original note were not included. [place], [place] [address] HOLTER MONITOR REPORT Patient Name: Lisa Conn : 1935 Solution Spec Date: 03/22/2021 @ 9:02 AM Performed At: [place], [place] Interpreting Tread Tuber Machine Operator: Gigi Nelson MD PCP: STACY KING MD Ordering Provider: GIGI NELSON MD INDICATION: Palpitations DURATION OF MONITORIN hours, 09 minutes BASELINE RHYTHM: Sinus rhythm HEART RATE: Minimum: 40 BPM, Maximum: 172 BPM, Average: 59 BPM PAUSES: 0 (> 2.0 seconds) INTERPRETATION: A 24hrs Holter was analyzed which did include a symptom diary. There were [address] QRS complexes analyzed. The baseline rhythm was [...] No atrial fibrillation or flutter observed. Interpreting Tread Tuber Machine Operator: Dr. Gigi Nelson documented in this encounter Plan of Treatment Not on file documented as of this encounter Procedures Procedure Name Priority Date/Time Associated Diagnosis Comments HOLTER MONITOR (ECG) UP TO 48 HRS COMPLETE Routine 03/23/2021 3:50 PM CDT Palpitation Paroxysmal atrial fibrillation ([facility]/HCC H[facility]/HCC) documented in this encounter Visit Diagnoses Not on filedocumented in this encounter Care Teams Software Applications Designer Relationship Specialty Start Date End Date Stacy King MD [address] [place] [address] PCP - General INTERNAL MEDICINE 12/08/20 Regulo Pandey MD Three [facility]. [address] [place] [address] Margaret Tread Tuber Machine Operator CARDIOVASCULAR DISEASE 03/21/16 documented as of this encounter
--- OUTSIDE RECORDS SUMMARY | 2024-08-09 20:12 | XMS_ITS | Encounter Summary ---
Author Organization [facility] Address [address] [place] [address]. [place] [address] [place] [address] Care Team Providers Care Ironing Machine Operator Name Role Phone Regulo Pandey MD Unavailable Nabila King MD Primary Care Provider [phone] Reason for Visit * Reason Onset Date Comments Dizziness 05/21/2021 Encounter Details Date Type Department Care Team (Late st Contact Info) Description 05/21/[address] [address] Ivory Lyn RN Dizziness Social History Tobacco [...] often do you attend chur ch or anglican services? More than 4 times [...] and heating? Not hard at all 02/15/2021 [facility] of Occupat ional Health - Occupational [...] on filedocumented in this encounter Care Teams Ironing Machine Operator Relationship Specialty Start Date End Date Nabila King MD [address] [place] [address] PCP - General INTERNAL MEDICINE 12/08/20 Regulo Pandey MD [facility]. [place] [address] [place] [address] Margaret Movie Operator CARDIOVASCULAR DISEASE 03/21/16 documented as of this encounter
--- OUTSIDE RECORDS SUMMARY | 2024-08-09 20:12 | XMS_ITS | Encounter Summary ---
Author Organization [facility] Address [address] [place] [address]. [place], [place] [address] [place] [address] Care Team Providers Care Gusset Edger Name Role Phone Regulo Pandey MD Unavailable Nabila King MD Primary Care Provider [phone] Encounter Details Date Type Department Care Team [...] week 02/15/2021 How often do you attend [facility] or baptism services? More than 4 times per year 02/15/2021 Do you belong to any clubs o r organizations such as islam groups, unions, fraternal or athletic groups, or [...] and heating? Not hard at all 02/15/2021 [facility] of Occupat ional Health - Occupational [...] on filedocumented in this encounter Care Teams Gusset Edger Relationship Specialty Start Date End Date Nabila King MD [address] [place] [address] PCP - General INTERNAL MEDICINE 12/08/20 Regulo Pandey MD Three [facility]. [address] [place] [address] [place] Burlapper CARDIOVASCULAR DISEASE 03/21/16 documented as of this encounter
--- OUTSIDE RECORDS SUMMARY | 2024-08-09 20:12 | XMS_ITS | Encounter Summary ---
Author Organization [facility] Address [address] [place] [address]. [place] [address] [place] [address] Care Team Providers Care Consumer Loan Specialist Name Role Phone Regulo Pandey MD Unavailable Nabila King MD Primary Care Provider [phone] Reason for Visit * Reason Onset Date Comments Refill Request 10/04/2021 [email or web address] Encounter Details Date Type Department Care Team (Late st Contact Info) Description 10/04/2021 Telephone [facility] [address] Carmelina Suarez RN Refill Request ([email or web address]) Social [...] often do you attend chur ch or methodist services? More than 4 times per year [...] and heating? Not hard at all 02/15/2021 [facility] [place] of Occupat ional Health - Occupational Stress [...] on filedocumented in this encounter Care Teams Consumer Loan Specialist Relationship Specialty Start Date End Date Nabila King MD [address] [place] [address] PCP - General INTERNAL MEDICINE 12/08/20 Regulo Pandey MD [facility]. [address] [place] [address] Margaret Vehicle Service Attendant CARDIOVASCULAR DISEASE 03/21/16 documented as of this encounter
--- OUTSIDE RECORDS SUMMARY | 2024-08-09 20:13 | XMS_ITS | Encounter Summary ---
Author Organization [facility] Address [address] [place] [address]. [place] [address] [place] [address] Care Team Providers Care Wood Crafter Name Role Phone Regulo Pandey MD Unavailable Nabila King MD Primary Care Provider Reason for Visit * Reason Onset Date Comments Results 12/29/2020 Echo and AAA scr eening Encounter Details Date Type Department Care Team ([facility] Contact Info) Description 12/29/2020 Telephone [facility] [address] [place] [address] Renetta Dhillon ANP-BC [facility]. [address] [place] [address] Results (Echo and AAA screening) [...] 12/29/2020 3:59 PM CDT Thank you * CHAIRSSE Hanson - 12/29/2020 3:28 PM CDT Echocardiogram [...] filedocumented in this encounter Care Teams Wood Crafter Relationship Specialty Start Date End Date Nabila King MD [address] [place] [address] PCP - General INTERNAL MEDICINE 12/08/20 Regulo Pandey MD Three [facility]. [address] [place] [address] [place] Security Assurance Specialist CARDIOVASCULAR DISEASE 03/21/16 documented as of this encounter
--- OUTSIDE RECORDS SUMMARY | 2024-08-09 20:13 | XMS_ITS | Encounter Summary ---
Author Organization [facility] Address [address] [place] [address]. [place] [address] [place] [address] Care Team Providers Care Lining Feller Name Role Phone Regulo Pandey MD Unavailable Nabila King MD Primary Care Provider [phone] Encounter Details Date Type Department Care Team [...] on filedocumented in this encounter Care Teams Lining Feller Relationship Specialty Start Date End Date Nabila King MD [address] [place] [address] PCP - General INTERNAL MEDICINE 12/08/20 Regulo Pandey MD [address] [address] Margaret Supervisor Corduroy Cutting CARDIOVASCULAR DISEASE 03/21/16 documented as of this encounter
--- OUTSIDE RECORDS SUMMARY | 2024-08-09 20:13 | XMS_ITS | Encounter Summary ---
Author Organization [facility] Address [address] [place] [address]. [place] [address] [place] [address] Care Team Providers Care Underwriting Consultant Name Role Phone Regulo Pandey MD Unavailable Nabila King MD Primary Care Provider [phone] Reason for Visit * Reason Onset Date Comments Information 01/19/2021 Encounter Details Date Type Department Care Team (Late st Contact Info) Description 01/19/[address] [address] Vanessa Lucia RN Information Social History Tobacco [...] on filedocumented in this encounter Care Teams Underwriting Consultant Relationship Specialty Start Date End Date Nabila King MD [address] [place] [address] PCP - General INTERNAL MEDICINE 12/08/20 Regulo Pandey MD [facility]. [facility] [address] [place] [address] Margaret Dietitian Chief CARDIOVASCULAR DISEASE 03/21/16 documented as of this encounter
--- OUTSIDE RECORDS SUMMARY | 2024-08-09 20:13 | XMS_ITS | Encounter Summary ---
Author Organization [facility] Address [address] [place] [address]. [place] [address] [place] [address] Care Team Providers Care Corporate Travel Consultant Name Role Phone Regulo Pandey MD Unavailable Nabila King MD Primary Care Provider [phone] Encounter Details Date Type Department Care Team [...] on filedocumented in this encounter Care Teams Corporate Travel Consultant Relationship Specialty Start Date End Date Nabila King MD [address] [place] [address] PCP - General INTERNAL MEDICINE 12/08/20 Regulo Pandey MD [address] [address] Margaret Lard Bleacher CARDIOVASCULAR DISEASE 03/21/16 documented as of this encounter
--- OUTSIDE RECORDS SUMMARY | 2024-08-09 20:13 | XMS_ITS | Encounter Summary ---
Author Organization [facility] Address [address] [place] [address]. [place] [address] [place] [address] Care Team Providers Care Veterinary Technologist Name Role Phone Regulo Pandey MD Unavailable Nabila King MD Primary Care Provider [phone] Encounter Details Date Type Department Care Team [...] on filedocumented in this encounter Care Teams Veterinary Technologist Relationship Specialty Start Date End Date Nabila King MD [address] [place] [address] PCP - General INTERNAL MEDICINE 12/08/20 Regulo Pandey MD [place] [address] [place] [address] Margaret Residential Roofer CARDIOVASCULAR DISEASE 03/21/16 documented as of this encounter
--- OUTSIDE RECORDS SUMMARY | 2024-08-09 20:13 | XMS_ITS | Encounter Summary ---
Author Organization [facility] Address [address] [place] [address]. [place] [address] [place] [address] Care Team Providers Care Manager Review Name Role Phone Regulo Pandey MD Unavailable Stacy King MD Primary Care Provider [phone] Reason for Visit * Reason Comments Supraventricular Tachycardia per Dannie Encounter Details Date Type Department Care Team (Latest Contact Info) Description 01/19/2021 12:00 PM CDT Office Visit [facility]Trice talamantes THREE [facility], [address] [place], [place] [id number] Marsha Mckenzie PA 3 [facility] [address] [place], [place] [id number] Supraventricular Tachycardia (per Dannie) Social History Tobacco [...] Written by the doctors and editors at [facility] What is supraventricular tachycardia (SVT)???--??Supraventricular tachycardia, also [...] process is complete. This topic retrieved from [employer] on: Oct 20, 2020. Topic 80072 Version 8.0 Release: 29.1.3 - C29.60 ?2020??UpToDate, [...] left ventricle through the mitral valve. Graphic 65868 Version 3.0 figure 2: Person having an ECG This drawing shows a man having an ECG (also called an electrocardiogram or EKG). He has patches, called electrodes, stuck onto his chest, arms, and legs. Wires run from the electrodes to the ECG machine. An ECG measures the electrical activity in the heart. Graphic 71462 Version 2.0 figure 3: Holter monitor People [...] or certain times of the day. Graphic 80744 Version 8.0 figure 4: Cardiac event recorder An event recorder is a portable device patients can use to measure their heart rhythm for a short time. The patient must activate the recorder and hold it to the chest when they feel symptoms. It is useful for patients that have intermittent symptoms that may not be captured with other forms of testing. Graphic 41389 Version 4.0 Consumer Information Use and Disclaimer [...] of UpToDate content is governed by the We[employer] Terms of Use. ??2020 [employer]. All rights reserved. Copyright ?2020??[employer]. and/or its affiliates.??All rights reserved. documented in [...] dysrhythmias documented in this encounter Care Teams Manager Review Relationship Specialty Start Date End Date Stacy King MD [address] [place] [address] PCP - General INTERNAL MEDICINE 12/08/20 Regulo Pandey MD [facility]. [facility] [address] [place] [address] Riggins Hairspring Assembler CARDIOVASCULAR DISEASE 03/21/16 documented as of this encounter
--- OUTSIDE RECORDS SUMMARY | 2024-08-09 20:13 | XMS_ITS | Encounter Summary ---
Author Organization [facility] Address [address] [place] [address]. [place] [address] [place] [address] Care Team Providers Care Records Management Technician Name Role Phone Regulo Pandey MD Unavailable Nabila King MD Primary Care Provider [phone] Reason for Visit * Reason Onset Date Comments Information 02/12/2021 verify ablation instructions Encounter Details Date Type Department Care Team (Late st Contact Info) Description 02/12/2021 Telephone [facility] THREE [address] [address] Vanessa Lucia RN Information (verify ablation instructions) [...] on filedocumented in this encounter Care Teams Records Management Technician Relationship Specialty Start Date End Date Nabila King MD [address] [place] [address] PCP - General INTERNAL MEDICINE 12/08/20 Regulo Pandey MD [facility]. [facility] [address] [place] [address] Echo Director Epidemiology CARDIOVASCULAR DISEASE 03/21/16 documented as of this encounter
--- OUTSIDE RECORDS SUMMARY | 2024-08-09 20:13 | XMS_ITS | Encounter Summary ---
Author Organization [facility] Address [address] [place] [address]. [place], [place] [address] [place] [address] Care Team Providers Care Chief Investment Officer Name Role Phone Emmie Huerta MD Unavailable Nabila King MD Primary Care Provider [phone] Reason for Referral * Imaging (Routine) - Closed Specialty Diagnoses / Procedures Referred By John bojorquez Referred To Contact RADIOLOGY Diagnoses Nonrheumatic aortic valve insufficiency Procedures USE ECHOCARDIOGRAM Emmie Huerta MD [address] [address] Phone: tel: fax: Referral ID Status Reason Start Date Expiration Date Visits Re quested Visits Authorized [id number] Closed 12/08/2020 01/08/2022 1 1 Reason for Visit * Imaging (Routine) - Closed Specialty Diagnoses / Procedures Referred By John bojorquez Referred To Contact RADIOLOGY Diagnoses Nonrheumatic aortic valve insufficiency Procedures USE ECHOCARDIOGRAM Emmie Huerta MD [facility]. [address] [address] Phone: tel: fax: Referral ID Status Reason Start Date Expiration Date Visits Re quested Visits Authorized [id number] Closed 12/08/2020 01/08/2022 1 1 Encounter Details Date Type Department Care Team (Late st Contact Info) Description 12/25/2020 9:53 AM CDT - 12/25/2020 11:59 PM CDT Hospital Encounter [facility] [place] Non [place] [address] Emmie Huerta MD Three [facility]. [address] [place] [address] Discharge Disposition: Home or Self Care (Routine [...] ?Echocardiography Report Pat.Name: ??LISA CONN ? Pat.ID: ?[id number] ? St.Date: ?? 12/25/2020 ?Refer.MD: ??[id number] HUERTA EMMIE ? Exam Time: 11:01:00 AM [...] ?? Cardiovascular ?? 1.84 cm ? LVOT/AoV (SHORTS SIFTER) ( ??0.72 ? P1/2t ?0.597 s ? [...] Huerta MD - 12/26/2020 Echocardiography Report Pat.Name: LISA CONN Pat.ID: [id number] .Date: 12/25/2020 Steff.: [id number] DEANNA OLEA Exam Time: 11:01:00 AM Study Type:ECHO WITH CARDIAC DOPPLER COMP Height: 63in Weight: 121.75lb BSA: 1.57 m2 Age: 3 1935,85Y Sex: FEMALE BP: 135/59 HR: 44 bpm Sonogrphr: Rosie Oliveira [facility] Pat. Stat.:Outpatient Reason for [...] cm/s Aortic Valve Cardiovascular 1.84 cm LVOT/AoV (SHORTS SIFTER) ( 0.72 P1/2t 0.597 s AV Antegrade [...] disorders documented in this encounter Care Teams Chief Investment Officer Relationship Specialty Start Date End Date Nabila King MD [address] [place] [address] PCP - General INTERNAL MEDICINE 12/08/20 Emmie Huerta MD Three [facility]. [facility] [address] [place] [address] [employer] School Examiner CARDIOVASCULAR DISEASE 03/21/16 documented as of this encounter
--- OUTSIDE RECORDS SUMMARY | 2024-08-09 20:13 | XMS_ITS | Encounter Summary ---
Author Organization [facility] Address [address] [place] [address]. [place] [address] [place] [address] Care Team Providers Care Cycle Director Name Role Phone Regulo Pandey MD Unavailable Stacy King MD Primary Care Provider [phone] Reason for Visit * Reason Comments Breathing Problem fu on tests Encounter Details Date Type Department Care Team (Late st Contact Info) Description 01/19/2021 10:15 AM CDT Office Visit [facility], [address] [place], [place] [address] Renetta Dhillon, ANP-BC [facility]. [address] [place], [place] [address] Regulo Pandey MD [facility]. [facility] [address] [place], [place] [id number] Breathing Problem (fu on tests) Social History [...] disorders documented in this encounter Care Teams Cycle Director Relationship Specialty Start Date End Date Stacy King MD [address] [place] [address] PCP - General INTERNAL MEDICINE 12/08/20 Regulo Pandey MD Three [facility]. [facility] [address] [place] [address] Margaret Charge Entry CARDIOVASCULAR DISEASE 03/21/16 documented as of this encounter
--- OUTSIDE RECORDS SUMMARY | 2024-08-09 20:13 | XMS_ITS | Encounter Summary ---
Author Organization [facility] Address [address] [place] [address]. [place] [address] [place] [address] Care Team Providers Care Household Appliances Service Technician Name Role Phone Regulo Pandey MD Unavailable Stacy King MD Primary Care Provider [phone] Reason for Referral * Imaging (Routine) - Closed Specialty Diagnoses / Procedures Referred By Contac t Referred To Contact RADIOLOGY Diagnoses SVT (supraventricular tachycardia) ([facility]) Procedures XA SVT WPW ABLATION Gigi Méndez MD [facility]. [facility] [[email or web address] [address] [place] [address] Phone: tel: fax: Referral ID Status Reason Start Date Expiration Date Visits Re quested Visits Authorized [id number] Closed 01/26/2021 02/15/2021 1 1 Reason for Visit * Reason Comments Supraventricular Tachycardia discuss abl ation Encounter Details Date Type Department Care Team (Late st Contact Info) Description 01/26/2021 1:00 PM CDT Office Visit [facility], [facility] [address] [place] [address] Gigi Méndez MD [facility]. [facility] [[email or web address]] [address] [place] [address] Supraventricular Tachycardia (discuss ablation ) [...] and heating? Not hard at all 02/15/2021 [facility] [place] [facility] - Occupational Stress [...] a longterm (including now)? No 02/15/2021 Comments Unknown Sex [...] Written by the doctors and editors at [facility] What is supraventricular tachycardia (SVT)???--??Supraventricular [...] process is complete. This topic retrieved from [employer] on: Oct 20, 2020. Topic [id number] Version 8.0 Release: 29.1.3 - C29.60 ?2020??[employer] and/or its affiliates.??All rights reserved. figure 1: Normal heart This is a drawing of a normal heart. The heart has 4 chambers: right atrium, left atrium, right ventricle, and left ventricle. Blood flows from the right atrium to the right ventricle through the tricuspid valve. Blood flows from the left atrium to the left ventricle through the mitral valve. Graphic 18489 Version 3.0 figure 2: Person having an ECG This drawing shows a man having an ECG (also called an electrocardiogram or EKG). He has patches, called electrodes, stuck onto his chest, arms, and legs. Wires run from the electrodes to the ECG machine. An ECG measures the electrical activity in the heart. Graphic 27390 Version 2.0 figure 3: Holter monitor People [...] or certain times of the day. Graphic 64022 Version 8.0 figure 4: Cardiac event recorder An event recorder is a portable device patients can use to measure their heart rhythm for a short time. The patient must activate the recorder and hold it to the chest when they feel symptoms. It is useful for patients that have intermittent symptoms that may not be captured with other forms of testing. Graphic 10766 Version 4.0 Consumer Information Use and Disclaimer [...] that is right for you.The use of [employer] content is governed by the [employer] Terms of Use. ??2020 [employer]. All rights reserved. Copyright ?2020??[employer]. and/or its affiliates.??All rights reserved. documented in this encounter Progress Notes * Gigi Méndez MD - 01/26/2021 1:00 PM CDT Images from the original note were not included. [place], [place] [address] Cardiac Electrophysiology Outpatient Progress Note Patient name: Lisa Conn Primary Fruit Peeler: Regulo Pandey MD Primary Care Provider: STACY [...] hypertension. EKG: SB, RV conduction delay, septal OH (old) Other Imaging: CT calcium score: Total Score: 0 No plaque, very low risk, very unlikely for probability of significant CAD MD [facility] Cardiac Electrophysiology ; ext. [phone] Pager: [phone] 11:13 PM documented in this encounter Plan of Treatment Not on file documented as of this encounter Results * XA SVT WPW ABLATION (02/15/2021 4:31 PM CDT) Anatomical Region Laterality Modality Cardiac Rib Builder Narrative 02/17/2021 2:55 PM CDT [facility] CARDIAC CATHETERIZATION/EP LAB [phone] x [phone] SVT Ablation Patient? s Name: ?? Lisa Conn Date of : ?? 1935 Medical Record: ??#[id number] Account: ??#[id number] Physician: ??Gigi Méndez MD Date: ?? 02/15/2021 [...] ms QRS ??95 ms QT ??466 ms WY ??163 ms AH ?? 89 ms HV [...] MISTI Lemos/jeremy Interpreted: ?02/15/21 Transcribed: ??02/16/21 us Gigi Méndez MD LABEL PRESS OPERATOR Final Resul t * TYPE & SCREEN (02/15/2021 10:12 AM CDT) ABO/RH O POSITIVE 02/15/2021 12:06 PM CDT [facility] ANTIBODY SCREEN NEGATIVE 02/15/2021 12:06 PM CDT [facility] SAMPLE EXPIRATION 02/18/2021,2 359 02/15/2021 12:06 PM CDT [facility] 02/15/2021 10:1 2 AM CDT Gigi Méndez MD BLOOD BANK TEST ORDERABLES Final Result [facility] [address] [place] [address], [place] [phone] * PROTIME/INR, VENOUS (02/15/2021 10:12 AM CDT) Pathologist [facility] PROTIME 11.5 10.2 - 12.9 SEC 02/15/2021 11:03 AM CDT [facility] INR 1.0 02/15/2021 11:03 AM CDT [facility] Comment: Recommended INR Therapeutic Goals: ??2.0-3.0 Routine Therapy ??2.5-3.5 Mechanical Prosthetic Valves (High Risk) 02/15/2021 10:1 2 AM CDT Gigi Méndez MD LABORATORY Final Resul t [facility] [address] [place] [address], [place] [phone] * CBC W/DIFF AUTOMATED (02/15/2021 10:12 AM CDT) WBC 6.2 4.5 - 11.0 x10'3/uL 02/15/2021 10:43 AM CDT [facility] RBC 4.58 4.20 - 5.40 x10'6/uL 02/15/2021 10:43 AM CDT [facility] HGB 14.2 12.0 - 16.0 G/DL 02/15/2021 10:43 AM CDT [facility] HCT 43.5 38.0 - 48.0 % 02/15/2021 10:43 AM CDT [facility] MCV 95.0 81.0 - 99.0 FL 02/15/2021 10:43 AM CDT [facility] MCH 31.0 27.0 - 31.0 PG 02/15/2021 10:43 AM CDT [facility] MCHC 32.6 32.0 - 36.0 G/DL 02/15/2021 10:43 AM CDT [facility] RDW 13.9 11.5 - 14.5 % 02/15/2021 10:43 AM CDT [facility] PLT 229 130 - 400 x10'3/uL 02/15/2021 10:43 AM CDT [facility] MPV 10.6 9.3 - 12.2 FL 02/15/2021 10:43 AM CDT [facility] DIFFERENTIAL TYPE AUTOMATED DIFFERENTIAL 02/15/2021 10:43 AM CDT [facility] NEUTROPHILS % 54.1 % 02/15/2021 10:43 AM CDT [facility] LYMPHOCYTES % 37.2 % 02/15/2021 10:43 AM CDT [facility] MONOCYTES % 6.9 % 02/15/2021 10:43 AM CDT [facility] EOSINOPHILS 1.0 % 02/15/2021 10:43 AM CDT [facility] BASOPHILS 0.6 % 02/15/2021 10:43 AM CDT [facility] IMMATURE GRANS % 0.2 % 02/16/20 10:43 AM CDT [facility] ABS. NEUTROPHILS TOTAL 3.36 1.80 - 7.70 x10'3/uL 02/15/2021 10:43 AM CDT [facility] ABS. LYMPHOCYTES 2.31 1.00 - 4.80 x10'3/uL 02/15/2021 10:43 AM CDT [facility] ABS. MONOCYTES 0.43 0.24 - 0.86 x10'3/uL 02/15/2021 10:43 AM CDT [facility] ABS. EOSINOPHILS 0.06 0.04 - 0.36 x10'3/uL 02/15/2021 10:43 AM CDT [facility] ABS. BASOPHILS 0.04 0.01 - 0.08 x10'3/uL 02/15/2021 10:43 AM CDT [facility] ABS. IMMATURE GRANULOCYTES 0.01 0.00 - 0.49 x10'3/uL 02/15/2021 10:43 AM CDT [facility] 02/15/2021 10:1 2 AM CDT us Gigi Méndez MD LABORATORY Final Resul t [facility] [address] [place] [address], * (ABNORMAL) BASIC METABOLIC PANEL (02/15/2021 10:12 AM CDT) [facility] Signature GLUCOSE 83 70 - 99 MG/DL 02/15/2021 11:05 AM CDT [facility] BUN 16 7 - 18 MG/DL 02/15/2021 11:05 AM T [facility] CREATININE S/P/B 0.77 0.55 - 1.02 MG/DL 02/15/2021 11:05 AM [facility] SODIUM S/P/B 139 136 - 145 MMOL/L 02/15/2021 11:05 AM [facility] POTASSIUM S/P/B 4.2 3.5 - 5.1 MMOL/L 02/15/2021 11:05 AM T [facility] CHLORIDE S/P/B 106 100 - 108 MMOL/L 02/15/2021 11:05 AM [facility] CO2 27.7 21 - 32 MMOL/L 02/15/2021 11:05 AM [facility] CALCIUM S/P/B 9.7 8.5 - 10.1 MG/DL 02/15/2021 11:05 AM T [facility] ANION GAP 5.3 5 - 15 MMOL/L 02/15/2021 11:05 AM [facility] BUN CREATININE RATIO 20.7 6 - 26 02/15/2021 11:05 AM [facility] EGFR NON-AFR. AMER. 71(L) >90 ML/MIN/1.7 3 M2 02/15/2021 11:05 AM [facility] EGFR AFR. AMER. 82(L) >90 ML/MIN/1.7 3 M2 02/15/2021 11:05 AM [facility] Comment: NOTE: eGFR is not calculated for patients <18 years of age. This is an estimated GFR (CKD EPI) and should not be used for calculating drug doses. 02/15/2021 10:1 2 AM CDT us Gigi Méndez MD LABORATORY Final Resul t [facility] [address] [place] [address], documented in this encounter Visit Diagnoses Diagnosis SVT (supraventricular tachycardia) ([facility]CC)- Primary Other specified cardiac dysrhythmias Typical atrial flutter ([facility])- Primary Atrial flutter SVT (supraventricular tachycardia) ([facility]) Other specified cardiac dysrhythmias documented in this encounter Care Teams Household Appliances Service Technician Relationship Specialty Start Date End Date Stacy King MD [address] [place] [address] PCP - General INTERNAL MEDICINE 12/08/20 Regulo Pandey MD Three [facility]. [facility] [address] [place] [address] [place] Fruit Peeler CARDIOVASCULAR DISEASE 03/21/16 documented as of this encounter
--- OUTSIDE RECORDS SUMMARY | 2024-08-09 20:13 | XMS_ITS | Encounter Summary ---
Author Organization [facility] Address [address] [place] [address]. [place] [address] [place] [address] Care Team Providers Care Molding Process Technician Name Role Phone Regulo Pandey MD Unavailable Nabila King MD Primary Care Provider [phone] Reason for Visit * Reason Onset Date Comments Question 02/01/2021 Encounter Details Date Type Department Care Team (Late st Contact Info) Description 02/01/[address] [address] Tierney [place]hman, [place] [address] Question Social History Tobacco Use Types Packs/Day [...] on filedocumented in this encounter Care Teams Molding Process Technician Relationship Specialty Start Date End Date Nabila King MD [address] [place] [address] PCP - General INTERNAL MEDICINE 12/08/20 Regulo Pandey MD [facility]. [facility] [address] [place] [address] [place] Assistant Professor CARDIOVASCULAR DISEASE 03/21/16 documented as of this encounter
--- OUTSIDE RECORDS SUMMARY | 2024-08-09 20:13 | XMS_ITS | Encounter Summary ---
Author Organization [facility] Address [address] [place] [address]. [place] [address] [place] [address] Care Team Providers Care Brick Dropper Name Role Phone Regulo Pandey MD Unavailable Nabila King MD Primary Care Provider [phone] Reason for Visit * Auth/Cert Specialty Diagnoses / Procedures Referred By Contac t Referred To Contact Diagnoses SVT (supraventricular tachycardia) ([facility]/HCC [facility]) Procedures XA SVT WPW ABLATION Referral ID Status Reason Start Date Expiration Date Visits Re quested Visits Authorized [id number] 1 1 Encounter Details Date Type Department Care Team (Late st Contact Info) Description 02/15/2021 9:55 AM CDT - 02/15/2021 10:07 AM CDT Hospital Encounter [facility] [place] [address] Gigi Méndez MD Three [facility]. [facility] [address] [place] [address] Discharge Disposition: Home or Self Care (Routine [...] How often do you attend chur or religion services? More than 4 times per year 02/15/2021 Do you belong to any clubs o r organizations such as mandaeism groups, unions, fraternal or athletic groups, or [...] and heating? Not hard at all 02/15/2021 [facility] [place] [facility] Occupat ional Health - Occupational Stress [...] ABO/RH O POSITIVE 02/15/2021 12:06 PM CDT [facility] ANTIBODY SCREEN NEGATIVE 02/15/2021 12:06 PM CDT [facility] SAMPLE EXPIRATION 02/18/2021,2 359 02/15/2021 12:06 PM CDT [facility] 02/15/2021 10:1 2 AM CDT Gigi Méndez MD BLOOD BANK TEST ORDERABLES Final Result Performing Organization Address City/[facility] Co de Phone Number [facility] [address] [place] [address], [place] [phone] * PROTIME/INR, VENOUS (02/15/2021 10:12 AM CDT) PROTIME 11.5 10.2 - 12.9 SEC 02/15/2021 11:03 AM CDT [facility] INR 1.0 02/15/2021 11:03 AM CDT [facility] Comment: Recommended INR Therapeutic Goals: ??2.0-3.0 Routine Therapy ??2.5-3.5 Mechanical Prosthetic Valves (High Risk) 02/15/2021 10:1 2 AM CDT us Gigi Méndez MD LABORATORY Final Resul t [facility] [address] [place] [address], * CBC W/DIFF AUTOMATED (02/15/2021 10:12 AM CDT) [facility] WBC 6.2 4.5 - 11.0 x10'3/uL 02/15/2021 10:43 AM CDT [facility] RBC 4.58 4.20 - 5.40 x10'6/uL 02/15/2021 10:43 AM CDT [facility] HGB 14.2 12.0 - 16.0 G/DL 02/15/2021 10:43 AM CDT [facility] HCT 43.5 38.0 - 48.0 % 02/15/2021 10:43 AM CDT [facility] MCV 95.0 81.0 - 99.0 FL 02/15/2021 10:43 AM CDT [facility] MCH 31.0 27.0 - 31.0 PG 02/15/2021 10:43 AM CDT [facility] MCHC 32.6 32.0 - 36.0 G/DL 02/15/2021 10:43 AM CDT [facility] RDW 13.9 11.5 - 14.5 % 02/15/2021 10:43 AM CDT [facility] PLT 229 130 - 400 x10'3/uL 02/15/2021 10:43 AM CDT [facility] MPV 10.6 9.3 - 12.2 FL 02/15/2021 10:43 AM CDT [facility] DIFFERENTIAL TYPE AUTOMATED DIFFERENTIAL 02/15/2021 10:43 AM CDT [facility] NEUTROPHILS % 54.1 % 02/15/2021 10:43 AM CDT [facility] LYMPHOCYTES % 37.2 % 02/15/2021 10:43 AM CDT [facility] MONOCYTES % 6.9 % 02/15/2021 10:43 AM CDT [facility] EOSINOPHILS 1.0 % 02/15/2021 10:43 AM CDT [facility] BASOPHILS 0.6 % 02/15/2021 10:43 AM CDT [facility] IMMATURE GRANS % 0.2 % 02/16/20 10:43 AM CDT [facility] ABS. NEUTROPHILS TOTAL 3.36 1.80 - 7.70 x10'3/uL 02/15/2021 10:43 AM CDT [facility] ABS. LYMPHOCYTES 2.31 1.00 - 4.80 x10'3/uL 02/15/2021 10:43 AM CDT [facility] ABS. MONOCYTES 0.43 0.24 - 0.86 x10'3/uL 02/15/2021 10:43 AM CDT [facility] ABS. EOSINOPHILS 0.06 0.04 - 0.36 x10'3/uL 02/15/2021 10:43 AM CDT [facility] ABS. BASOPHILS 0.04 0.01 - 0.08 x10'3/uL 02/15/2021 10:43 AM CDT [facility] ABS. IMMATURE GRANULOCYTES 0.01 0.00 - 0.49 x10'3/uL 02/15/2021 10:43 AM CDT [facility] 02/15/2021 10:1 2 AM CDT us Gigi Méndez MD LABORATORY Final Resul t [facility] [address] [place] [address], * (ABNORMAL) BASIC METABOLIC PANEL (02/15/2021 10:12 AM CDT) [facility] GLUCOSE 83 70 - 99 MG/DL 02/15/2021 11:05 AM T [facility] BUN 16 7 - 18 MG/DL 02/15/2021 11:05 AM [facility] CREATININE S/P/B 0.77 0.55 - 1.02 MG/DL 02/15/2021 11:05 AM T [facility] SODIUM S/P/B 139 136 - 145 MMOL/L 02/15/2021 11:05 AM T [facility] POTASSIUM S/P/B 4.2 3.5 - 5.1 MMOL/L 02/15/2021 11:05 AM [facility] CHLORIDE S/P/B 106 100 - 108 MMOL/L 02/15/2021 11:05 AM [facility] CO2 27.7 21 - 32 MMOL/L 02/15/2021 11:05 AM [facility] CALCIUM S/P/B 9.7 8.5 - 10.1 MG/DL 02/15/2021 11:05 AM [facility] ANION GAP 5.3 5 - 15 MMOL/L 02/15/2021 11:05 AM [facility] BUN CREATININE RATIO 20.7 6 - 26 02/15/2021 11:05 AM [facility] EGFR NON-AFR. AMER. 71(L) >90 ML/MIN/1.7 3 M2 02/15/2021 11:05 AM [facility] EGFR AFR. AMER. 82(L) >90 ML/MIN/1.7 3 M2 02/15/2021 11:05 AM [facility] Comment: NOTE: eGFR is not calculated for patients <18 years of age. This is an estimated GFR (CKD EPI) and should not be used for calculating drug doses. 02/15/2021 10:1 2 AM CDT Gigi Méndez MD LABORATORY Final Resul t [facility] [address] [place] [address], documented in this encounter Visit Diagnoses Diagnosis SVT (supraventricular tachycardia) (CMS/HCC HHS/HCC) Other specified cardiac dysrhythmias documented in this encounter Care Teams Brick Dropper Relationship Specialty Start Date End Date Nabila King MD [address] [place] [address] PCP - General INTERNAL MEDICINE 12/08/20 Regulo Pandey MD Three [facility]. [facility] [address] [place] [address] [place] Hot Die Picker CARDIOVASCULAR DISEASE 03/21/16 documented as of this encounter
--- OUTSIDE RECORDS SUMMARY | 2024-08-09 20:14 | XMS_ITS | Encounter Summary ---
Author Organization [facility] Address [address] [place] [address]. [place] [address] [place] [address] Care Team Providers Care Food Adviser Name Role Phone Regulo Pandey MD Unavailable Nabila King MD Primary Care Provider [phone] Encounter Details Date Type Department Care Team [...] on filedocumented in this encounter Care Teams Food Adviser Relationship Specialty Start Date End Date Nabila King MD [address] [place] [address] PCP - General INTERNAL MEDICINE 12/08/20 Regulo Pandey MD [address] [address] Margaret Rug Measurer CARDIOVASCULAR DISEASE 03/21/16 documented as of this encounter
--- OUTSIDE RECORDS SUMMARY | 2024-08-09 20:14 | XMS_ITS | Encounter Summary ---
Author Organization [facility] Address [address] [place] [address]. [place] [address] [place] [address] Care Team Providers Care Religion Professor Name Role Phone Jason Winters MD Primary Care Provider [phone] Regulo Pandey MD Unavailable Reason for Visit * Reason Onset Date Comments Results 09/24/2019 Encounter Details Date Type Department Care Team (Late st Contact Info) Description 09/24/2019 Telephone [facility] at [facility], [facility] [address] [place], [place] [id number] Pamela Thomason NP 3 [facility] [address] [place] [address] Results Social History Tobacco Use [...] Patient v/u and had no further questions. T INSPECTOR * Pamela Thomason NP - 09/24/2019 3:25 PM CST Let her know that her calcium CT score is -0- T INSPECTOR documented in this encounter Plan of Treatment Not on file documented as of this encounter Visit Diagnoses Not on filedocumented in this encounter Care Teams Religion Professor Relationship Specialty Start Date End Date Jason Winters MD [address] [place] [address] PCP - General FAMILY PRACTICE 03/21/16 12/07/[address] [facility] [address] [place] [address] [place] Executive Chef CARDIOVASCULAR DISEASE 03/21/16 documented as of this encounter
--- OUTSIDE RECORDS SUMMARY | 2024-08-09 20:14 | XMS_ITS | Encounter Summary ---
Author Organization [facility] Address [address] [place] [address]. [place] [address] [place] [address] Care Team Providers Care Medical Accounting Clerk Name Role Phone Jason Winters MD Primary Care Provider + [phone] Regulo Pandey MD Unavailable Encounter Details Date Type Department Care Team (Late st Contact Info) Description 04/15/2016 Abstract [facility] CONVERSION [address] [place], [place] [id number] Regulo Pandey MD Three [facility]. [facility] [address] [place] [address] Social History Tobacco Use Types [...] breath documented in this encounter Care Teams Medical Accounting Clerk Relationship Specialty Start Date End Date Jason Winters MD [address] [place] [address] PCP - General FAMILY PRACTICE 03/21/16 12/07/20 Regulo Pandey MD Three [facility]. [facility] [address] [place] [address] [place] Wash And Greaser CARDIOVASCULAR DISEASE 03/21/16 documented as of this encounter
--- OUTSIDE RECORDS SUMMARY | 2024-08-09 20:14 | XMS_ITS | Encounter Summary ---
Author Organization [facility] Address [address] [place] [address]. [place] [address] [place] [address] Care Team Providers Care Knot Borer Name Role Phone Jason Winters MD Primary Care Provider [phone] Regulo Pandey MD Unavailable Reason for Visit * Reason Onset Date Comments Appointment Request 04/18/2018 PATIENT REQU EST APPOINTMENT FOR ULTRASOUND Encounter Details Date Type Department Care Team (Late st Contact Info) Description 04/18/2018 Telephone [facility] at [facility], [facility] [address] [place] [address] Regulo Pandey MD [facility]. [facility] [address] [place] [address] Appointment Request (PATIENT REQUEST APPOINTMENT [...] her 3 year heart ultrasound. Return number [phone]. Reviewed chart. Patient was last seen in [...] on filedocumented in this encounter Care Teams Knot Borer Relationship Specialty Start Date End Date Jason Winters MD [address] [place] [address] PCP - General FAMILY PRACTICE 03/21/16 12/07/[address] [facility] [address] [place] [address] [place] Vendor Quality Supervisor CARDIOVASCULAR DISEASE 03/21/16 documented as of this encounter
--- OUTSIDE RECORDS SUMMARY | 2024-08-09 20:14 | XMS_ITS | Encounter Summary ---
Author Organization [facility] Address [address] [place] [address]. [place] [address] [place] [address] Care Team Providers Care Transportation Museum Helper Name Role Phone Jason Winters MD Primary Care Provider [phone] Regulo Pandey MD Unavailable Reason for Visit * Reason Onset Date Comments Results 04/21/2016 Encounter Details Date Type Department Care Team (Late st Contact Info) Description 04/21/2016 Telephone [facility] AT [address] [address] Ivory Lyn, RN Results Social History Tobacco [...] to see if she has CAD. Thanks, [facility] Received above email from Renetta Huitron, called pt, phone rings with no answer. Mica Lyn R.N. Called pt again, phone rings with no answer. Mica Lyn R.N. Called pt and notified of above echo results and orders per Renetta Ruthann-HOURLY SHIFT, told pt that paralegal legal secretary will call her to schedule stress test, pt verbalizes understanding and has no further questions, pt would like a copy of her echo, call transferred to medical records. Mica Lyn R.N. documented in this encounter Plan of Treatment Not on file documented as of this encounter Visit Diagnoses Not on filedocumented in this encounter Care Teams Transportation Museum Helper Relationship Specialty Start Date End Date Jason Winters MD [address] [place] [address] PCP - General FAMILY PRACTICE 03/21/16 12/07/20 Regulo Pandey MD [place] [address] [place] [address] [place] Configuration Specialist CARDIOVASCULAR DISEASE 03/21/16 documented as of this encounter
--- OUTSIDE RECORDS SUMMARY | 2024-08-09 20:14 | XMS_ITS | Encounter Summary ---
Author Organization [facility] Address [address] [place] [address]. [place] [address] [place] [address] Care Team Providers Care Strategic Debriefing Specialist Name Role Phone Jason Winters MD Primary Care Provider + [phone] Regulo Pandey MD Unavailable Encounter Details Date Type Department Care Team (Late st Contact Info) Description 05/03/2016 Abstract [facility] CONVERSION [address] [place], [place] [phone] Regulo Pandey MD Three [facility]. [facility] [address] [place] [address] Social History Tobacco Use Types [...] disorders documented in this encounter Care Teams Strategic Debriefing Specialist Relationship Specialty Start Date End Date Jason Winters MD [address] [place] [address] PCP - General FAMILY PRACTICE 03/21/16 12/07/20 Regulo Pandey MD [facility]. [facility] [address] [place] [address] [place] Review Manager CARDIOVASCULAR DISEASE 03/21/16 documented as of this encounter
--- OUTSIDE RECORDS SUMMARY | 2024-08-09 20:14 | XMS_ITS | Encounter Summary ---
Author Organization [facility] Address [address] [place] [address]. [place], [place] [address] [place] [address] Care Team Providers Care Candy Decorator Name Role Phone Jason Hood MD Primary Care Provider [phone]- [phone] Regulo Pandey MD Unavailable Reason for Referral * Imaging (Routine) - Closed Specialty Diagnoses / Procedures Referred By Contac t Referred To Contact CARDIOLOGY DIAGNOSTICS Diagnoses Nonrheumatic aortic valve insufficiency Procedures USE ECHOCARDIOGRAM OUS P ECHO XTHOR COM W DOPPLER Conner Madsen ANP-BC [facility]. [facility] [address] [place] [address] Phone: tel: fax: [place] [address] Phone: tel: Referral ID Status Reason Start Date Expiration Date Visits Re quested Visits Authorized [id number] Closed 05/22/2018 06/22/2018 1 1 Reason for Visit * Reason Comments Aortic Valve Disorder Two year follow up Encounter Details Date Type Department Care Team (Late st Contact Info) Description 05/22/2018 9:15 AM CDT Office Visit [facility] at [facility], [place] [address] [place], [place] [address] Conner Madsen ANP-BC [facility]. [facility] [address] [place] [address] Aortic Valve Disorder (Two year follow up) [...] blood pressure. Where can I learn more? [employer] Association http://www.heart.org/HEARTORG/Conditions/CongenitalHeartDefects/AboutCongenitalH eartDefects/Jeooyv-Jkzff-Ascsbtcb-AVS_[facility]_307020_Article.jsp National Heart, Lung, and Blood [place] http://www.nhlbi.nih.gov/health/health-topics/topics/hvd/ Last Reviewed Date 2015-10-23 Consumer Information [...] right for you. Copyright Copyright ?? 2017 [employer]. and its affiliates [...] rhythm, no changes. Final interpretation by the cargo services coordinator is pending. Regular treadmill stress test 05/03/2016: [...] ?Echocardiography Report Pat.Name: ??ESCOBAR CONN ? Pat.ID: ?[id number] ? St.Date: ?? 05/28/2018 ? Refer.MD: ??[id number], CONNER MADSEN Exam Time: 11:09:00 AM ? [...] Echocardiography Report Pat.Name: ESCOBAR CONN Jennifer Pat.ID: [id number] .Date: 05/28/2018 Refer.MD: [id number], CONNER MADSEN Exam Time: 11:09:00 AM Study Type:ECHO WITH CARDIAC DOPPLER COMP Height: 63in Weight: 120.75lb BSA: 1.56 m2 Age: 3 1935,82Y Sex: FEMALE BP: 137/60 HR: 48 bpm Sonogrphr: Rosie Oliveira [facility] Pat. Stat.:Outpatient Reason for Study:Aortic [...] Acceleration Sl 498 cm/s2 RA VOLUME Atrial Dempsye 47 mm Atrial Dempsey 17 cm2 Atrial [...] disorders documented in this encounter Care Teams Candy Decorator Relationship Specialty Start Date End Date Jason Hood MD [address] [place] [address] PCP - General FAMILY PRACTICE 03/21/16 12/07/20 Regulo Pandey MD [facility] [address] [place] [address] [place] Residential Building Inspector CARDIOVASCULAR DISEASE 03/21/16 documented as of this encounter
--- OUTSIDE RECORDS SUMMARY | 2024-08-09 20:14 | XMS_ITS | Encounter Summary ---
Author Organization [facility] Address [address] [place] [address]. [place] [address] [place] [address] Care Team Providers Care Horticulture Worker Name Role Phone Regulo Pandey MD Unavailable Nabila King MD Primary Care Provider [phone] Encounter Details Date Type Department Care Team [...] filedocumented in this encounter Care Teams Horticulture Worker Relationship Specialty Start Date End Date Nabila King MD [address] [place] [address] PCP - General INTERNAL MEDICINE 12/08/20 Regulo Pandey MD [address] [address] [place] Business English Instructor CARDIOVASCULAR DISEASE 03/21/16 documented as of this encounter
--- OUTSIDE RECORDS SUMMARY | 2024-08-09 20:14 | XMS_ITS | Encounter Summary ---
Author Organization [facility] Address [address] [place] [address]. [place] [address] [place] [address] Care Team Providers Care Roller Shop Supervisor Name Role Phone Jason Winters MD Primary Care Provider [phone]- [phone] Regulo Pandey MD Unavailable Encounter Details Date Type Department Care Team (Late st Contact Info) Description 05/03/2016 Orders Only [facility] [address] [place] [id number] Regulo Pandey MD [address] [address] Social History Tobacco Use Types [...] AM CDT) 05/03/2016 9:17 AM CDT Narrative [facility] RADI[facility] - 05/03/2016 12:00 AM CDT ? STRESS TEST TRACING ONLY ? Pat.Name: ??LISA CONN ? Pat.ID: ?[id number] ? St.Date: ?? 05/03/2016 ? Refer.MD: ??Newton ? Exam Time: 9:17:00 AM ? Study [...] Max BP: ?180/78 ? Max RPP: ?? [id number] ? Symptoms and Complications: Terminated: Shortness of breath, Dizziness Symptoms: ??Shortness of breath, Dizziness Stress ECG Interp: No ischemic changes Signed 05/04/2016 08:43 AM Regulo Pandey M.D. Procedure Note Regulo Pandey MD - 05/04/2016 STRESS TEST TRACING ONLY Pat.Name: LISA CONN Pat.ID: [id number] .Date: 05/03/2016 Refer.: Singh Exam Time: 9:17:00 AM Study Type:GISSELL NE STRESS TEST TRACING ONLY Height: 64in Weight: 121lb BSA: 1.58 m2 Age: 3 1935,80Y Sex: FEMALE BP: 137/59 HR: 57 bpm Sonogrphr: Chris Disla [facility] Pat. Stat.:Outpatient Reason for Study:Shortness of breath, [...] 107 % Max BP: 180/78 Max RPP: [id number] Symptoms and Complications: Terminated: Shortness of breath, Dizziness Symptoms: Shortness of breath, Dizziness Stress ECG Interp: No ischemic changes Signed 05/04/2016 08:43 AM Regulo Pandey M.D. us Regulo Pandey MD [facility] Final Result Performing Organization Address City/State/[facility] Co de Phone Number [facility] documented in this encounter Visit Diagnoses Not on filedocumented in this encounter Care Teams Roller Shop Supervisor Relationship Specialty Start Date End Date Jason Winters MD [address] [place] [address] PCP - General FAMILY PRACTICE 03/21/16 12/07/20 Regulo Pandey MD Three [facility]. [facility] [address] [place] [address] [place] Tooling Manager CARDIOVASCULAR DISEASE 03/21/16 documented as of this encounter
--- OUTSIDE RECORDS SUMMARY | 2024-08-09 20:14 | XMS_ITS | Encounter Summary ---
Author Organization [facility] Address [address] [place] [address]. [place], [place] [address] [place] [address] Care Team Providers Care Certified Fire Investigator Name Role Phone Jason Winters MD Primary Care Provider [phone] Regulo Pandey MD Unavailable Reason for Referral * Imaging (Routine) - Closed Specialty Diagnoses / Procedures Referred By John bojorquez Referred To Contact RADIOLOGY Diagnoses Screening for heart disease Procedures CT HEART DIAG CALCIUM SCORE Jason Winters MD [address] [place] [place] [address] Phone: tel: fax: Referral ID Status Reason Start Date Expiration Date Visits Re quested Visits Authorized [id number] Closed 08/22/2019 09/20/2020 1 1 E AUDITOR Reason for Visit * Imaging (Routine) - Closed Specialty Diagnoses / Procedures Referred By John bojorquez Referred To Contact RADIOLOGY Diagnoses Screening for heart disease Procedures CT HEART DIAG CALCIUM SCORE Jason Winters MD [address] [place] [address] Phone: tel: fax: Referral ID Status Reason Start Date Expiration Date Visits Re quested Visits Authorized [id number] Closed 08/22/2019 09/20/2020 1 1 Encounter Details Date Type Department Care Team (Latest Contact Info) Description 09/09/2019 10:47 AM NURSE AUDITOR - 09/09/2019 11:59 PM NURSE AUDITOR Hospital Encounter [place] [address] Jason Winters MD [address] [place] [address] Discharge Disposition: Home or Self Care (Routine [...] DIAG CALCIUM SCORE Routine 09/09/2019 11:51 AM NURSE AUDITOR Screening for heart disease documented in this encounter Results * CT HEART DIAG CALCIUM SCORE (09/09/2019 11:51 AM NURSE AUDITOR) Anatomical Region Laterality Modality Computed Tomogra phy 09/09/2019 8:35 PM NURSE AUDITOR Impressions 09/09/2019 8:36 PM NURSE AUDITOR IMPRESSION:===== Total Score: 0 No plaque, very low risk, very unlikely for probability of significant CAD Interpreted By: Tarik Lal MD, 09/09/2019 8:35 PM Narrative 09/09/2019 8:36 PM NURSE AUDITOR EXAMINATION: Multislice Helical CT Coronary Calcium Scoring [...] Calcium score guidelines: Total Score* Calcium Plaque [place] ??*Risk ?*Probability of significant CAD 0 ?No [...] Calcium score guidelines: Total Score* Calcium Plaque [place] *Risk *Probability ofsignificant CAD 0 No Plaque [...] conditions documented in this encounter Care Teams Certified Fire Investigator Relationship Specialty Start Date End Date Jason Winters MD [address] [place] [address] PCP - General FAMILY PRACTICE 03/21/16 12/07/20 Regulo Pandey MD Three [facility]. [facility] [address] [place] [address] [place] Pyrotechnics Press Tender CARDIOVASCULAR DISEASE 03/21/16 documented as of this encounter
--- OUTSIDE RECORDS SUMMARY | 2024-08-09 20:14 | XMS_ITS | Encounter Summary ---
Author Organization [facility] Address [address] [place] [address]. [place] [address] [place] [address] Care Team Providers Care Jewelry Technician Name Role Phone Jason Winters MD Primary Care Provider [phone]- [phone] Regulo Pandey MD Unavailable Reason for Referral * Imaging (Routine) - Closed Specialty Diagnoses / Procedures Referred By Contac t Referred To Contact CARDIOLOGY Diagnoses Aortic insufficiency Procedures NM TREADMILL ONLY STRESS TEST CARDIAC STRESS TST,DR SUPERV ONLY CARDIAC STRESS TST,INTERP/REPT ONLY Regulo Pandey MD [facility]. [facility] [place] [address] Phone: tel: fax: [facility]- [address] [address] Phone: tel: Referral ID Status Reason Start Date Expiration Date Visits Re quested Visits Authorized [id number] Closed 04/23/2017 1 1 Encounter Details Date Type Department Care Team (Late st Contact Info) Description 04/22/2016 Orders Only [facility] AT [address] [address] Regulo Pandey MD [facility]. [facility] [address] [place] [address] Social History Tobacco Use Types [...] disorders documented in this encounter Care Teams Jewelry Technician Relationship Specialty Start Date End Date Jason Winters MD [address] [place] [address] PCP - General FAMILY PRACTICE 03/21/16 12/07/20 Regulo Pandey MD [facility] [address] [place] [address] Elmo Telemarketing Sales Representative CARDIOVASCULAR DISEASE 03/21/16 documented as of this encounter
--- OUTSIDE RECORDS SUMMARY | 2024-08-09 20:14 | XMS_ITS | Encounter Summary ---
Author Organization [facility] Address [address] [place] [address]. [place] [address] [place] [address] Care Team Providers Care Avid Editor Name Role Phone Jason Winters MD Primary Care Provider [phone]- [phone] Regulo Pandey MD Unavailable Reason for Visit * Reason Onset Date Comments Results 06/04/2018 Echocardiogram Encounter Details Date Type Department Care Team (Late st Contact Info) Description 06/04/2018 Telephone [facility], [facility] [address] [place], [place] [id number] Renetta Dhillon, ANP-[facility]. [facility] [address] [place] [address] Results (Echocardiogram) Social History Tobacco [...] on filedocumented in this encounter Care Teams Avid Editor Relationship Specialty Start Date End Date Jason Winters MD [address] [place] [address] PCP - General FAMILY PRACTICE 03/21/16 12/07/20 Regulo Pandey MD [address] [facility]. [facility] [address] [place] [address] [place] Watch Dial Maker CARDIOVASCULAR DISEASE 03/21/16 documented as of this encounter
--- OUTSIDE RECORDS SUMMARY | 2024-08-09 20:14 | XMS_ITS | Encounter Summary ---
Author Organization [facility] Address [address] [place] [address]. [place] [address] [place] [address] Care Team Providers Care Transport Conductor Name Role Phone Regulo Pandey MD Unavailable Stacy King MD Primary Care Provider [phone] Reason for Referral * Imaging (Routine) - Closed Specialty Diagnoses / Procedures Referred By Contac t Referred To Contact RADIOLOGY Diagnoses Screening for AAA (abdominal aortic aneurysm) Procedures USV AAA SCREENING Regulo Pandey MD [address] [address] Phone: tel: fax: Referral ID Status Reason Start Date Expiration Date Visits Re quested Visits Authorized [id number] Closed 12/08/2020 01/08/2022 1 1 Reason for Visit * Imaging (Routine) - Closed Specialty Diagnoses / Procedures Referred By John bojorquez Referred To Contact RADIOLOGY Diagnoses Screening for AAA (abdominal aortic aneurysm) Procedures USV AAA SCREENING Regulo Pandey MD [facility]. [address] [address] Phone: tel: fax: Referral ID Status Reason Start Date Expiration Date Visits Re quested Visits Authorized [id number] Closed 12/08/2020 01/08/2022 1 1 Encounter Details Date Type Department Care Team (Late st Contact Info) Description 12/25/2020 9:53 AM CDT - 12/25/2020 11:59 PM CDT Hospital Encounter [facility] Vascular Lab [address] [place] [address] Regulo Pandey MD [address] [place] [address] Discharge Disposition: Home or Self Care (Routine [...] VASCULAR LAB Pat.Name: ??LISA CONN ? Pat.ID: ?[id number] ? St.Date: ?? 12/25/2020 ?Refer.MD: ??STACY KING [...] DUPLEX VASCULAR LAB Pat.Name: LISA CONN Pat.ID: [id number] .Date: 12/25/2020 Refer.MD: STACY KING Exam Time: [...] Jonathon Michaud, M.D. us Regulo Pandey MD [facility] Final Result documented in this encounter Visit Diagnoses Diagnosis Screening for AAA (abdominal aortic aneurysm) Screening for other and unspecified cardiovascular conditions documented in this encounter Care Teams Transport Conductor Relationship Specialty Start Date End Date Stacy King MD [address] [place] [address] PCP - General INTERNAL MEDICINE 12/08/20 Regulo Pandey MD [facility]. [facility] [address] [place] [address] [place] Proof Operator CARDIOVASCULAR DISEASE 03/21/16 documented as of this encounter
--- OUTSIDE RECORDS SUMMARY | 2024-08-09 20:14 | XMS_ITS | Encounter Summary ---
Author Organization [facility] Address [address] [place] [address]. [place] [address] [place] [address] Care Team Providers Care Outside Collector Name Role Phone Emmie Huerta MD Unavailable Nabila King MD Primary Care Provider [phone] Reason for Referral * Imaging (Routine) - Closed Specialty Diagnoses / Procedures Referred By John bojorquez Referred To Contact Diagnoses Palpitations Procedures CLINIC - OUTPATIENT EVENT RECORDER (ECG) UP TO 30 DAYS COMPLETE (Holter) Emmie Huerta MD [address] [address] Phone: tel: fax: Emmie Huerta MD [address] [address] Phone: tel: fax: Referral ID Status Reason Start Date Expiration Date Visits Re quested Visits Authorized [id number] Closed 12/08/2020 01/07/2022 1 1 * Imaging (Routine) - Closed Specialty Diagnoses / Procedures Referred By John bojorquez Referred To Contact RADIOLOGY Diagnoses Nonrheumatic aortic valve insufficiency Procedures USE ECHOCARDIOGRAM Emmie Huerta MD [address] [address] Phone: tel: fax: Referral ID Status Reason Start Date Expiration Date Visits Re quested Visits Authorized [id number] Closed 12/08/2020 01/08/2022 1 1 * Imaging (Routine) - Closed Specialty Diagnoses / Procedures Referred By John t Referred To Contact RADIOLOGY Diagnoses Screening for AAA (abdominal aortic aneurysm) Procedures USV AAA SCREENING Emmie Huerta MD [facility]. [facility] [address] [place] [address] Phone: tel: fax: Referral ID Status Reason Start Date Expiration Date Visits Re quested Visits Authorized [id number] Closed 12/08/2020 01/08/2022 1 1 Reason for Visit * Reason Comments Heart Problem 2 year follow up Encounter Details Date Type Department Care Team (Late st Contact Info) Description 12/08/2020 9:45 AM CDT Office Visit [facility]Jair ernandez THREE [facility], [facility] [place], [place] [id number] Emmie Huerta MD [facility]. [facility] [address] [place] [address] Heart Problem (2 year follow [...] Emmie Huerta MD D: ??01/20/2021 08:39 AM #[id number] T: ??01/25/2021 08:14 AM /TC us Emmie Huerta MD CV VASCULAR ORDERABLES Final Res ult ESCRIPTION * USE ECHOCARDIOGRAM (12/25/2020 12:03 PM CDT) Anatomical Region Laterality Modality Cardiac Echocardiogram 12/25/2020 11:0 1 AM CDT Narrative 12/26/2020 9:07 AM CDT ?Echocardiography Report Pat.Name: ??ESCOBAR CONN ? Pat.ID: ?[id number] ? St.Date: ?? 12/25/2020 ?Refer.MD: ??[id number] HUERTA EMMIE ? Exam Time: 11:01:00 AM [...] ?? Cardiovascular ?? 1.84 cm ? LVOT/AoV (INTERACTIVE WEB DEVELOPER) ( ??0.72 ? P1/2t ?0.597 s ? [...] 12/26/2020 Echocardiography Report Pat.Name: ESCOBAR CONN Pat.ID: [id number] .Date: 12/25/2020 Refer.MD: [id number] DEANNA OLEA Exam Time: 11:01:00 AM Study Type:ECHO WITH CARDIAC DOPPLER COMP Height: 63in Weight: 121.75lb BSA: 1.57 m2 Age: 4 1935,85Y Sex: FEMALE BP: 135/59 HR: 44 bpm Sonogrphr: Rosie Oliveira [facility] Pat. Stat.:Outpatient Reason for Study:Aortic insufficiency History [...] cm/s Aortic Valve Cardiovascular 1.84 cm LVOT/AoV (INTERACTIVE WEB DEVELOPER) ( 0.72 P1/2t 0.597 s AV Antegrade [...] VASCULAR LAB Pat.Name: ??ESCOBAR CONN ? Pat.ID: ?[id number] ? St.Date: ?? 12/25/2020 ?Refer.MD: ??NABILA KING [...] VASCULAR LAB Pat.Name: NANCY ESCOBAR M Pat.ID: [id number] .Date: 12/25/2020 Refer.MD: NABILA KING Exam Time: [...] Jonathon Michaud M.D. us Emmie Huerta MD [facility] Final Result * ELECTROCARDIOGRAM (12/08/2020 9:55 AM CDT) 12/08/2020 9:55 AM CDT Narrative [facility] - 12/14/2020 8:35 AM CDT ?[facility], O? [place] ? Test Date: ?2020-12-08 Pat Name: ? ESCOBAR CONN ? Department: ? Room: ? Gender: ? Female ? Enrollment Clerk: ?? ar : ?1935 ? Requested By: EMMIE HUERTA Order Number: [id number] ?Reading MD: ?? Emmie Huerta ? Measurements Intervals ?[place] ? Rate: ? 49 ? P: ?51 [place]: ? 169 ?QRS: ?78 QRSD: ? 85 ? T: ?64 QT: ? 428 ? QTc: ?387 ? Interpretive Statements SINUS BRADYCARDIA POSSIBLE RIGHT VENTRICULAR CONDUCTION DELAY SEPTAL MYOCARDIAL INFARCTION, PROBABLY OLD Procedure Note Emmie Huerta MD - 12/14/2020 [facility], [facility]? [facility] Test Date: 2020-12-08 Pat Name: ESCOBAR CONN Department: Room: Gender: Female Enrollment Clerk: wilber : 1935 Requested By: EMMIE HUERTA Order Number: [id number] Reading MD: Emmie Huerta Measurements Intervals [place] Rate: 49 P: 51 [place]: 169 QRS: 78 QRSD: 85 T: 64 [...] disorders documented in this encounter Care Teams Outside Collector Relationship Specialty Start Date End Date Nabila King MD [address] [place] [address] PCP - General INTERNAL MEDICINE 12/08/20 Emmie Huerta MD [facility]. [facility] [address] [place] [address] Margaret Tub Mender CARDIOVASCULAR DISEASE 03/21/16 documented as of this encounter
--- OUTSIDE RECORDS SUMMARY | 2024-08-09 20:14 | XMS_ITS | Encounter Summary ---
Author Organization [facility] Address [address] [place] [address]. [place] [address] [place] [address] Care Team Providers Care Wheel Mill Operator Name Role Phone Jason Winters MD Primary Care Provider [phone] Regulo Pandey MD Unavailable Reason for Referral * Imaging (Routine) - Closed Specialty Diagnoses / Procedures Referred By John bojorquez Referred To Contact CARDIOLOGY DIAGNOSTICS Diagnoses Nonrheumatic aortic valve insufficiency Procedures USE ECHOCARDIOGRAM OUS P ECHO XTHOR COM W DOPPLER Renetta Madsen ANP-BC [facility]. [address] [address] Phone: tel: fax: [place] [address] Phone: tel: Referral ID Status Reason Start Date Expiration Date Visits Re quested Visits Authorized [id number] Closed 05/22/2018 06/22/2018 1 1 Reason for Visit * Imaging (Routine) - Closed Specialty Diagnoses / Procedures Referred By Contclaudia t Referred To Contact CARDIOLOGY DIAGNOSTICS Diagnoses Nonrheumatic aortic valve insufficiency Procedures USE ECHOCARDIOGRAM OUS P ECHO XTHOR COM W DOPPLER Renetta Madsen ANP-BC [facility]. [address] [address] Phone: tel: fax: [facility] [place] [address] Phone: tel: Referral ID Status Reason Start Date Expiration Date Visits Re quested Visits Authorized [id number] Closed 05/22/2018 06/22/2018 1 1 Encounter Details Date Type Department Care Team (Late st Contact Info) Description 05/28/2018 10:28 AM CDT - 05/28/2018 11:59 PM CDT Hospital Encounter [facility] [place] [address] Renetta Madsen, ANP-BC [facility]. [facility] [address] [place] [address] Discharge Disposition: Home or Self Care (Routine [...] ?Echocardiography Report Pat.Name: ??LISA CONN ? Pat.ID: ?[id number] ? St.Date: ?? 05/28/2018 ? Refer.MD: ??[id number], RENETTA MADSEN Exam Time: 11:09:00 AM ? [...] Atrial Dempsey ? 47 mm ? Atrial Dmepsey ? 17 cm2 Atrial Dempsey ?? 46.1 [...] Echocardiography Report Pat.Name: LISA CONN Jennifer Pat.ID: [id number] .Date: 05/28/2018 Steff.: [id number], RENETTA MADSEN Exam Time: 11:09:00 AM Study Type:ECHO WITH CARDIAC DOPPLER COMP Height: 63in Weight: 120.75lb BSA: 1.56 m2 Age: 4 1935,82Y Sex: FEMALE BP: 137/60 HR: 48 bpm Sonogrphr: Rosie Oliveira [facility] Pat. Stat.:Outpatient Reason for Study:Aortic insufficiency Procedures:2D, [...] disorders documented in this encounter Care Teams Wheel Mill Operator Relationship Specialty Start Date End Date Jason Winters MD [address] [place] [address] PCP - General FAMILY PRACTICE 03/21/16 12/07/20 Regulo Pandey MD [facility] [address] [place] [address] Mertens Engine Inspector CARDIOVASCULAR DISEASE 03/21/16 documented as of this encounter
--- OUTSIDE RECORDS SUMMARY | 2024-08-09 20:14 | XMS_ITS | Encounter Summary ---
Author Organization [facility] Address [address] [place] [address]. [place] [address] [place] [address] Care Team Providers Care Curtain Inspector Name Role Phone Regulo Pandey MD Unavailable Nabila King MD Primary Care Provider [phone] Reason for Visit * Reason Onset Date Comments Question 12/16/2020 Encounter Details Date Type Department Care Team (Late st Contact Info) Description 12/16/2020 Telephone [facility] [place] [facility] [address] Christine Sierra, RN Question Social History Tobacco [...] on filedocumented in this encounter Care Teams Curtain Inspector Relationship Specialty Start Date End Date Nabila King MD [address] [place] [address] PCP - General INTERNAL MEDICINE 12/08/20 Regulo Pandey MD Three [facility]. [facility] [address] [place] [address] Buchanan Analytics Director CARDIOVASCULAR DISEASE 03/21/16 documented as of this encounter
--- OUTSIDE RECORDS SUMMARY | 2024-08-09 20:15 | XMS_ITS | Encounter Summary ---
Author Organization [facility] Address [facility] [place] [address] [place] [address] Care Team Providers Care Marketing Representative Name Role Phone Jason Winters MD Primary Care Provider [phone] Regulo Pandey MD Unavailable Reason for Referral * Imaging (Routine) - Closed Specialty Diagnoses / Procedures Referred By Contac t Referred To Contact CARDIOLOGY Diagnoses SOB (shortness of breath) on exertion Aortic insufficiency Procedures USE ECHOCARDIOGRAM OUS P ECHO XTHOR COM W DOPPLER Regulo Pandey MD [facility]. [place] [address] [place] [address] Phone: tel: fax: [facility] [address] [place] [phone] Phone: tel: Referral ID Status Reason Start Date Expiration Date Visits Re quested Visits Authorized [id number] Closed 04/05/2016 05/20/2016 1 1 Reason for Visit * Reason Comments Dizziness needs a checkup Breathing Problem Encounter Details Date Type Department Care Team (Late st Contact Info) Description 04/05/2016 12:30 PM CDT Office Visit [facility] [place] [address] [place] [address] Regulo Pandey MD [facility]. [address] [place], [place] [id number] Dizziness (needs a checkup); Breathing Problem Social [...] states that she is to see a machine molder at [place]. The doctor left from there and moved to [place]. She states that lately she has not [...] disorders documented in this encounter Care Teams Marketing Representative Relationship Specialty Start Date End Date Jason Winters MD [address] [place] [address] PCP - General FAMILY PRACTICE 03/21/16 12/07/20 Regulo Pandey MD [facility]. [facility] [address] [place] [address] Cohagen Bi Developer CARDIOVASCULAR DISEASE 03/21/16 documented as of this encounter
--- OUTSIDE RECORDS SUMMARY | 2024-08-09 20:15 | XMS_ITS | Encounter Summary ---
Author Organization [facility] Address [address] [place] [address]. [place] [address] [place] [address] Care Team Providers Care Pecan Sheller Name Role Phone Jason Winters MD Primary Care Provider + [phone] Regulo Pandey MD Unavailable Encounter Details Date Type Department Care Team (Late st Contact Info) Description 07/29/2011 Abstract [facility] [address] [place] [address] Jimbo Mock MD Social History Tobacco Use [...] on filedocumented in this encounter Care Teams Pecan Sheller Relationship Specialty Start Date End Date Jason Winters MD [address] [place] [address] PCP - General FAMILY PRACTICE 03/21/16 12/07/20 Regulo Pandey MD [address] [place] [address] [place] Re[employer] And Tubing Machine Operator CARDIOVASCULAR DISEASE 03/21/16 documented as of this encounter
--- OUTSIDE RECORDS SUMMARY | 2024-08-09 20:15 | XMS_ITS | Encounter Summary ---
Author Organization [facility] Address [address] [place] [address]. [place] [address] [place] [address] Care Team Providers Care Cut Off Tender Glass Name Role Phone Jason Winters MD Primary Care Provider + [phone] Regulo Pandey MD Unavailable Encounter Details Date Type Department Care Team (Late st Contact Info) Description 01/12/[address] [facility] [address] [place] [address] Mackenzie Watson MD Social History Tobacco Use [...] on filedocumented in this encounter Care Teams Cut Off Tender Glass Relationship Specialty Start Date End Date Jason Winters MD [address] [place] [address] PCP - General FAMILY PRACTICE 03/21/16 12/07/20 Regulo Pandey MD [facility] [address] [place] [address] [place] Maintenance Machine Repairer CARDIOVASCULAR DISEASE 03/21/16 documented as of this encounter
--- OUTSIDE RECORDS SUMMARY | 2024-08-09 20:15 | XMS_ITS | Encounter Summary ---
Author Organization [facility] Address [address] [place] [address]. [place] [address] [place] [address] Care Team Providers Care Track Production Engineer Name Role Phone Jason Winters MD Primary Care Provider [phone] Emmie Pandey MD Unavailable Encounter Details Date Type Department Care Team (Late st Contact Info) Description 04/15/2016 Orders Only [facility] [address] [place] [id number] Emmie Pandey MD [address] [address] Social History Tobacco Use Types [...] ?Echocardiography Report Pat.Name: ??LISA CONN ? Pat.ID: ?[id number] ? St.Date: ?? 04/15/2016 ? Refer.MD: ??EMMIE ? Exam Time: 10:08:00 AM ? Study Type:ECHO WITH CARDIAC DOPPLER COMP Height: ?64in ?Weight: ?120.75lb ? BSA: ? 1.58 m2 ?Age: ??1935,80Y ? Sex: ? FEMALE ?BP: ?132/59 ? HR: ?53 bpm ?Sonogrphr: Tiffanie Espinoza CCT, RCS Pat. Stat.:Outpatient ?CPT - 4: ?? [address] ? Reason for Study:Murmur ? Procedures:2D, M-mode, [...] 04/19/2016 Echocardiography Report Pat.Name: LISA CONN Pat.ID: [id number] .Date: 04/15/2016 Refer.MD: EMMIE Exam Time: 10:08:00 AM Study Type:ECHO WITH CARDIAC DOPPLER COMP Height: 64in Weight: 120.75lb BSA: 1.58 m2 Age: 3 1935,80Y Sex: FEMALE BP: 132/59 HR: 53 bpm Sonogrphr: Tiffanie Espinoza, [facility] Pat. Stat.:Outpatient CPT - 4: [address] Reason for Study:Murmur Procedures:2D, M-mode, Doppler, Color [...] on filedocumented in this encounter Care Teams Track Production Engineer Relationship Specialty Start Date End Date Jason Winters MD [address] [place] [address] PCP - General FAMILY PRACTICE 03/21/16 12/07/20 Emmie Pandey MD [facility]. [address] [place] [address] Blackey Marketing Co Op CARDIOVASCULAR DISEASE 03/21/16 documented as of this encounter
--- OUTSIDE RECORDS SUMMARY | 2024-08-09 20:15 | XMS_ITS | Encounter Summary ---
Author Organization [facility] Address [address] [place] [address]. [place] [address] [place] [address] Care Team Providers Care Director Private Music Therapy Agency Name Role Phone Jason Winters MD Primary Care Provider + [phone] Regulo Pandey MD Unavailable Encounter Details Date Type Department Care Team (Late st Contact Info) Description 09/12/2011 Abstract [place] Fur Trapper [address] [facility] [place] [address] Jimbo Mock MD Social History Tobacco Use [...] filedocumented in this encounter Care Teams Director Private Music Therapy Agency Relationship Specialty Start Date End Date Jason Winters MD [address] [place] [address] PCP - General FAMILY PRACTICE 03/21/16 12/07/20 Regulo Pandey MD [address] [place] [address] [place] [address] [place] Lna CARDIOVASCULAR DISEASE 03/21/16 documented as of this encounter
--- OUTSIDE RECORDS SUMMARY | 2024-08-09 20:15 | XMS_ITS | Encounter Summary ---
Author Organization [facility] Address [address] [place] [address]. [place] [address] [place] [address] Care Team Providers Care Modern And Contemporary Art Curator Name Role Phone Jason Winters MD Primary Care Provider + [phone] Regulo Pandey MD Unavailable Encounter Details Date Type Department Care Team (Late st Contact Info) Description 04/05/2016 Orders Only [facility] AT [address] [address] Noelle Pablo LPN Social History Tobacco Use [...] on filedocumented in this encounter Care Teams Modern And Contemporary Art Curator Relationship Specialty Start Date End Date Jason Winters MD [address] [place] [address] PCP - General FAMILY PRACTICE 03/21/16 12/07/20 Regulo Pandey MD [facility] [address] [place] [address] Margaret Skiff Operator CARDIOVASCULAR DISEASE 03/21/16 documented as of this encounter
--- OUTSIDE RECORDS SUMMARY | 2024-08-09 20:15 | XMS_ITS | Encounter Summary ---
Author Organization [facility] Address [address] [place] [address]. [place] [address] [place] [address] Care Team Providers Care Associate Chief Nurse Name Role Phone Jason Winters MD Primary Care Provider + [phone] Regulo Pandey MD Unavailable Encounter Details Date Type Department Care Team (Late st Contact Info) Description 04/14/2016 Scan [facility] AT [address] [address] Scanned, Documents Social History Tobacco [...] filedocumented in this encounter Care Teams Associate Chief Nurse Relationship Specialty Start Date End Date Jason Winters MD [address] [place] [address] PCP - General FAMILY PRACTICE 03/21/16 12/07/20 Regulo Pandey MD [facility] [address] [place] [address] [employer] Maxillofacial Prosthetics Dentist CARDIOVASCULAR DISEASE 03/21/16 documented as of this encounter
--- OUTSIDE RECORDS SUMMARY | 2024-08-09 20:15 | XMS_ITS | Encounter Summary ---
Author Organization [facility] Address [address] [place] [address]. [place] [address] [place] [address] Care Team Providers Care Cushion Spring Assembler Name Role Phone Jason Winters MD Primary Care Provider [phone] Regulo Pandey MD Unavailable Encounter Details Date Type Department Care Team (Late st Contact Info) Description 06/13/2000 Abstract [facility] CONVERSION [address] [place] [address] , Generic MD Marla Social History Tobacco [...] on filedocumented in this encounter Care Teams Cushion Spring Assembler Relationship Specialty Start Date End Date Jason Winters MD [address] [place] [address] PCP - General FAMILY PRACTICE 03/21/16 12/07/20 Regulo Pandey MD [facility] [address] [place] [address] [place] Mechanical Designer CARDIOVASCULAR DISEASE 03/21/16 documented as of this encounter
--- OUTSIDE RECORDS SUMMARY | 2024-08-09 20:15 | XMS_ITS | Encounter Summary ---
Author Organization [facility] Address [address] [place] [address]. [place] [address] [place] [address] Care Team Providers Care Vocational Case Manager Name Role Phone Jason Winters MD Primary Care Provider + [phone] Regulo Pandey MD Unavailable Encounter Details Date Type Department Care Team (Late st Contact Info) Description 10/20/2003 Abstract [facility] CONVERSION [address] [place] [address] Alex Lange MD Social History Tobacco Use Types Packs/Day [...] on filedocumented in this encounter Care Teams Vocational Case Manager Relationship Specialty Start Date End Date Jason Winters MD [address] [place] [address] PCP - General FAMILY PRACTICE 03/21/16 12/07/20 Regulo Pandey MD [facility] [address] [place] [address] [place] Camera Engineer CARDIOVASCULAR DISEASE 03/21/16 documented as of this encounter
--- OUTSIDE RECORDS SUMMARY | 2024-08-09 20:22 | XMS_ITS | Encounter Summary ---
Author Organization [facility] Address [address] [place] [address] Care Team Providers Care Replenishment Merchandising Associate Name Role Phone Christine Kendall MD Unavailable [phone] Sita Magana MD Unavailable [phone] Nabila King MD Primary Care Provider + [phone] Regulo Pandey MD Unavailable Gigi Méndez MD Unavailable [phone] Bc Martinez MD Unavailable [phone] Martin Correa MD Unavailable [phone] [facility] Unavailable Reason for Visit * Reason Comments New Patient Neck Pain Dizziness * Consultation (Urgent) - Authorized Specialty Diagnoses / Procedures Referred By Contac t Referred To Contact Neurology Diagnoses Pain Numbness Dizziness Chronic bilateral low back pain, unspecified whether sciatica present Chronic neck pain Neuroforaminal stenosis of lumbar spine Nabila King MD [address] [place] [address] Phone: tel: fax: Gildardo Gonzáles Si, MD [facility] [place] [address] Phone: tel: fax: Referral ID Status Reason Start Date Expiration Date Visits Requested Visits Authorized [id number] Authorized Specialty Services Required 08/03/2025 12 12 Encounter Details Date Type Department Care Team (Late st Contact Info) Description 07/09/2024 10:30 AM BUSINESS LIBRARIAN Office Visit [facility] Neurology [address] [facility] [address] [place] [address] Gildardo Gonzáles Si, MD [facility] [address] [place] [address] Pain; Numbness; Dizziness; Chronic bilateral low back [...] on file Legal Sex Female 8:14 PM BUSINESS LIBRARIAN Gender Identity Not on file Sexual Orientation Not on file 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 She went to seen civil preparedness officer and got clobetasol cream which she did [...] Laterality Date ABLATION OF AFIB FLUTTER 02/18/2021 [facility] CARDIAC PACEMAKER PLACEMENT 10/2021 COLONOSCOPY 01/08/2010 [...] Use: Not At Risk (02/15/2021) Re[facility] from [facility] AUDIT-C Frequency of Alcohol Consumption: Never Average Number of Drinks: Not on file Frequency of Binge Drinking: Not on file Allergies Allergen Reactions Sulfa (Sulfonamide Antibiotics) Unknown Clarithromycin Hives Mastisol Adhesive [Gum Udscsd-Rppsuq-Ecij-Alcohol] Hives and Rash Pt reports this is [...] ptosis but no significant finding on exam. Casino Cage Manager on imaging results and etiology of her [...] time spent in any separately reportable services. NESS LIBRARIAN documented in this encounter Plan of Treatment [...] 07/09/2024 documented in this encounter Care Teams Replenishment Merchandising Associate Relationship Specialty Start Date End Date Nabila King MD [address] [place] [address] [address] [place] [address] PCP - General Internal Medicine 12/16/20 Christine Kendall MD Surgeon Ophthalmology 12/13/20 Sita Magana MD [address] [place] [address] [address] [place] [address] Consulting Physician Internal Medicine 12/13/20 Regulo Pandey MD [address] [place] [address] [address] [place] [address] Referring Physician Cardiovascular Disease 12/16/20 Gigi Méndez MD [address] [place] [address] [address] [place] [address] Referring Physician Cardiology 02/18/21 Bc Martinez MD [address] [place] [address] Referring Physician Cardiology 08/22/23 Martin Correa MD [address] [place] [address] Consulting Physician Cardiothoracic Surgery 08/22/23 Gildardo [place] [address] [place] [address] [address] [place] [address] Consulting Physician Neurology 07/09/24 documented as of this encounter
--- OUTSIDE RECORDS SUMMARY | 2024-08-09 20:22 | XMS_ITS | Encounter Summary ---
Author Organization [facility] Healthcare Address [address] [place] [address] Care Team Providers Care Biometrics Specialist Name Role Phone Christine Kendall MD Unavailable [phone] Sita Magana MD Unavailable [phone] Nabila King MD Primary Care Provider + [phone] Regulo Pandey MD Unavailable Gigi Méndez MD Unavailable [phone] Bc Martinez MD Unavailable [phone] Martin Correa MD Unavailable [phone] Encounter Details Date Type Department Care Team (Late st Contact Info) Description 06/13/2024 Telephone [facility] [address] [place] [id number] Imelda Gaytan NP [address] [place] [address] Social History Tobacco Use Types Packs/Day Years [...] on file Legal Sex Female 8:14 PM TAILOR GARMENT FITTER Gender Identity Not on file Sexual [...] on filedocumented in this encounter Care Teams Biometrics Specialist Relationship Specialty Start Date End Date Nabila King MD [address] [place] [address] [address] [place] [address] PCP - General Internal Medicine 12/16/20 Christine Kendall MD Surgeon Ophthalmology 12/13/20 Sita Magana MD [facility] [address] [place] [address] Consulting Physician Internal Medicine 12/13/20 Regulo Pandey MD [address] [place] [address] Referring Physician Cardiovascular Disease 12/16/20 Gigi Méndez MD [address] [place] [address] Referring Physician Cardiology 02/18/21 Bc Martinez MD [address] [place] [address] Referring Physician Cardiology 08/22/23 Martin Correa MD [address] [place] [address] Consulting Physician Cardiothoracic Surgery 08/22/23 documented as of this encounter
--- OUTSIDE RECORDS SUMMARY | 2024-08-09 20:22 | XMS_ITS | Clinical Summary ---
Author Organization [facility] Address [address] [place] [address] Phone Care Team Providers Care Volleyball Assembler Name Role Phone FaizaChristine mak MD Unavailable [phone] Melinda Magana MD Unavailable [phone] Nabila King MD Primary Care Provider +- [phone] Regulo Pandey MD Unavailable Gigi Méndez MD Unavailable [phone] Bc Martinez MD Unavailable [phone] Martin Correa MD Unavailable [facility], MD Unavailable Allergies Active Allergy Reactions Criticality Noted Date Comments Chloramphenicol Other (See comments) Low Damaged liver and wiped out white blood cells Clarithromycin Hives Medium Gum Qmgawf-Rirkie-Pihh-Alcoho l Hives,Rash Medium 03/18/2022 Pt reports this [...] 06/23/2024 Assessment & Plan (06/23/2024 6:27 PM SOFTWARE APPLICATIONS ENGINEER): Chronic, uncontrolled. Worse in the last 3 [...] 06/23/2024 Assessment & Plan (06/23/2024 6:28 PM SOFTWARE APPLICATIONS ENGINEER): Chronic, uncontrolled. Worse in the last 3 [...] 06/23/2024 Assessment & Plan (06/23/2024 6:40 PM SOFTWARE APPLICATIONS ENGINEER): Chronic, controlled. Recent facial MRI shows Nonspecific 1.6 x 0.3 x 1.3 cm peripherally enhancing fluid collection along the anterior midline mandibular body suspicious for an abscess in the appropriate clinical setting. No adjacent cortical destruction or bone edema. Mild mucosal thickening of the inferior left maxillary sinus. Patient has been taking daily doxycycline since February and has seen soil fertility extension specialist multiple times. CBC from January unremarkable. No [...] 0 Assessment & Plan (06/23/2024 6:33 PM SOFTWARE APPLICATIONS ENGINEER): Chronic, controlled. Managed by Cardiology. CMP from [...] normal reflexes. She recently started turmeric and insurance healthcare consultant last week along with stretching exercises. I [...] stage Assessment & Plan (07/15/2024 11:01 PM SOFTWARE APPLICATIONS ENGINEER): intraocular pressure (IOP) acceptable off meds status [...] DFE Assessment & Plan (09/20/2021 6:46 PM SOFTWARE APPLICATIONS ENGINEER): intraocular pressure (IOP) acceptable off meds status [...] 24-2 Assessment & Plan (07/23/2018 11:42 AM SOFTWARE APPLICATIONS ENGINEER): intraocular pressure (IOP) excellent- blebs functioning well [...] 2014 Assessment & Plan (07/15/2024 11:02 PM SOFTWARE APPLICATIONS ENGINEER): Now VS with glare symptoms No noted [...] observe Assessment & Plan (09/20/2021 12:48 PM SOFTWARE APPLICATIONS ENGINEER): Not VS- observe Assessment & Plan (12/14/2020 [...] visit Assessment & Plan (07/23/2018 11:42 AM SOFTWARE APPLICATIONS ENGINEER): Not visually significant Assessment & Plan (01/22/2018 [...] undergo trial of Doxy 50 mg/day per factory focus technician Pseudophakia 01/22/2018 04/10/2022 Assessment & Plan (03/18/2022 11:46 AM CDT): Recommend MRx with local condenser winder Mitral valve disease 09/30/2014 022 Overview (11/24/2016): Mitral valve disorder Encounters Date Type Department Care Team Description 08/08/2024 Telephone [facility] Ophthalmology [address] [place] [address] Gracy Ocampo COA 08/06/2024 11:45 AM SOFTWARE APPLICATIONS ENGINEER Office [facility] [address] [facility] [address] [place] [address] Nabila King MD Acute hearing loss of both ears (Primary Dx); Endolymphatic hydrops of left ear; 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 [facility] [address] [facility], [address] [place] [address] Christine Kendall MD Age-related nuclear cataract of right eye (Primary Dx); Low-tension glaucoma, bilateral, severe stage 07/15/2024 11:20 AM SOFTWARE APPLICATIONS ENGINEER Imaging Exam [facility] Ophthalmology [address] [facility] [address] [facility], [address] [place] [address] 07/09/2024 10:30 AM SOFTWARE APPLICATIONS ENGINEER Office Visit [facility] Neurology [address] [facility] [address] [place] [address] Gildardo Gonzáles Si, MD Pain; Numbness; Dizziness; Chronic bilateral low back pain, unspecified whether sciatica present; Chronic neck pain; Neuroforaminal stenosis of lumbar spine 07/03/2024 Telephone [facility] [address] [place] [address] Nabila King MD Dizziness 06/26/2024 Telephone [facility] [address] [place] [address] Nabila King MD PT Diagnosis 06/25/2024 Telephone [facility] [address] [place] [address] Nabila King MD Neuro Referral 06/13/2024 9:30 AM CDT Office Visit [facility] [address] [place] [address] Imelda Gaytan NP Chronic bilateral back pain, unspecified back location (Primary Dx); Chronic neck pain; ASVD (arteriosclerotic vascular disease); Periodontal disease 06/13/2024 Telephone [facility] [address] [place] [address] Imelda Gaytan NP 06/10/2024 [facility] [address] [place] [address] Scanning, Provider from Last 3 Months Immunizations [...] adenoma rectum ABLATION OF AFIB FLUTTER 02/18/2021 [facility] CARDIAC PACEMAKER PLACEMENT 10/19/2021 - 11/18/2021 [...] on file Legal Sex Female 8:14 PM SOFTWARE APPLICATIONS ENGINEER Gender Identity Not on file Sexual Orientation Not on file 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 Not on file Obstetrics History Last Filed Vital Signs Vital Sign Reading Time Taken Comments Blood Pressure 130/66 08/06/2024 11:55 AM SOFTWARE APPLICATIONS ENGINEER Pulse 80 08/06/2024 11:55 AM SOFTWARE APPLICATIONS ENGINEER Temperature 36.3 ??C (97.3 ??F) 08/06/2024 11:[address] Respiratory Rate 18 08/06/2024 11:55 AM SOFTWARE APPLICATIONS ENGINEER Oxygen Saturation 97% 08/06/2024 11:55 AM SOFTWARE APPLICATIONS ENGINEER Inhaled Oxygen Concentration - - Weight 56.8 kg (125 lb 3.2 oz) 08/06/2024 11:55 AM SOFTWARE APPLICATIONS ENGINEER Height 162.6 cm (5' 4 ) 08/06/2024 11:55 AM SOFTWARE APPLICATIONS ENGINEER Body Mass Index 21.49 08/06/2024 11:55 AM SOFTWARE APPLICATIONS ENGINEER Plan of Treatment Health Maintenance Due Date [...] - BOTH EYES Routine 07/15/2024 11:20 AM SOFTWARE APPLICATIONS ENGINEER Age-related nuclear cataract of right eye SCAN - RADIOLOGY/IMAGING 06/10/2024 CHOLESTEROL, LDL, DIRECT Routine 05/28/2024 8:15 AM CDT Multiple-type hyperlipidemia CORNEAL TOPOGRAPHY - OU - BOTH EYES Routine 05/13/2024 10:00 AM CDT Age-related nuclear cataract of right eye from Last 3 Months Results * IOL Biometry - OU - Both Eyes (07/15/2024 11:20 AM SOFTWARE APPLICATIONS ENGINEER) AC IOL (OS) 4.61 CONTINUUM AC IOL (OD) 3.02 CONTINUUM White to White (OS) 11.6 mm CONTINUUM White to White (OD) 11.5 mm CONTINUUM A LENGTH (OS) 24.25 CONTINUUM A LENGTH (OD) 24.24 CONTINUUM Anatomical Region Laterality Modality Head Ophthalmic Axial Measurements Narrative 07/15/2024 5:31 PM SOFTWARE APPLICATIONS ENGINEER Right Eye Axial length was 24.24. White [...] CDT Performed at: ??01 - [facility] [address] ??[id number] Community Health Nursing Director: Darek Farrell PhD, Phone: ??[phone] us Nabila King MD LAB BLOOD ORDERABLES Final Result [facility] - 01 * Corneal Topography - OU - Both Eyes (05/13/2024 10:00 AM CDT) Anatomical Region Laterality Modality Head Other Narrative 07/16/2024 2:20 PM SOFTWARE APPLICATIONS ENGINEER Right Eye Quality was good. Progression has no prior data. Findings include normal observations. Left Eye Quality was good. Progression has no prior data. Notes No significant astigmatism confirmed right eye (OD) us Christine Kendall MD OPHTH MAPPING Edited R esult - Final from Last 3 Months Insurance [facility] MEDICARE [facility] MEDICARE [facility] MEDICARE Advance Directives For more information, please contact: [phone] Documents on File Type Date Recorded Patient Tax Compliance Manager Expl anation ADVANCE DIRECTIVE 07/04/2022 POWER OF A [employer] Care Teams Volleyball Assembler Relationship Specialty Start Date End Date Nabila King MD [address] [facility] [address] [place] [address] PCP - General Internal Medicine 12/16/20 Christine Kendall MD Surgeon Ophthalmology 12/13/20 Melinda Magana MD [address] [place] [address] Consulting Physician Internal Medicine 12/13/20 Regulo Pandey MD [address] [facility] [facility] [address] [place] [address] Referring Physician Cardiovascular Disease 12/16/20 Gigi Méndez MD [address] [facility] [facility] [facility] [address] [place] [address] Referring Physician Cardiology 02/18/21 Bc Martinez MD [address] [place] [address] Referring Physician Cardiology 08/22/23 Martin Correa MD [address] [place] [address] Consulting Physician Cardiothoracic Surgery 08/22/23 Gildardo Gonzáles Si, MD [address] [facility] [address] [place] [address] Consulting Physician Neurology 07/09/24
--- OUTSIDE RECORDS SUMMARY | 2024-08-09 20:22 | XMS_ITS | Encounter Summary ---
Author Organization [facility] Healthcare Address [address] [place] [address] Care Team Providers Care Flash Welder Name Role Phone Christine Kendall MD Unavailable [phone] Sita Magana MD Unavailable [phone] Nabila King MD Primary Care Provider + [phone] Regulo Pandey MD Unavailable Gigi Méndez MD Unavailable [phone] Bc Martinez MD Unavailable [phone] Martin Correa MD Unavailable [phone] Reason for Referral * Consultation (Routine) - Pending Review Specialty Diagnoses / Procedures Referred By Contac t Referred To Contact Neurosurgery Diagnoses Perineural cysts Physical deconditioning Nabila King MD [address] [place] [address] Phone: tel: fax: Brenda Suarez MD [address] [place] [address] Phone: tel: fax: Referral ID Status Reason Start Date Expiration Date Visits Requested Visits Authorized [id number] Pending Review Evaluate and Treat 06/26/2024 07/26/2025 24 24 Question Answer PTRFR PT Evaluate and Treat Therapy options discussed with patient? Yes Location provided for therapy services is: Patient requested/Patient preferred Please select the performing region: [facility] [[id number]] Please select the performing department: [facility] ON OP PT [[id number]] To provider: BRENDA SUAREZ [[id number]] # of visits: 24 Comments Patient being referred due to perineural cysts up and down patients back as well as physical deconditioning. Please contact patient to schedule, thank you. 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 Dr. Suarez's office to contact patient to schedule. O PRODUCTION INTERN * Telephone Encounter - Vicenta Melo RN - 06/26/2024 10:44 AM VIDEO PRODUCTION INTERN June 25, 2024 Nabila King MD to Vanessa Koehler EMERGENCY RESPONSE TECHNICIAN [facility] Im/Fm Staff Pool 06/25/24 7:34 PM Great idea refer to BRENDA Titus. O PRODUCTION INTERN * Telephone Encounter - Helga Lenz - 06/25/2024 3:05 PM VIDEO PRODUCTION INTERN Patient called stating that she had her initial PT evaluation and states that the physical therapist recommended that she get a referral from Dr. RAMIREZ for neurology due to perineural cysts up and downher back. Wants to go to Dr. Brenda Suarez out of [facility]. [phone] O PRODUCTION INTERN documented in this encounter Plan of Treatment [...] classified documented in this encounter Care Teams Flash Welder Relationship Specialty Start Date End Date Nabila King MD [facility] [address] [place] [address] PCP - General Internal Medicine 12/16/20 Christine Kendall MD Surgeon Ophthalmology 12/13/20 Sita Magana MD [facility] [address] [place] [address] Consulting Physician Internal Medicine 12/13/20 Regulo Pandey MD [address] [facility] [address] [place] [address] Referring Physician Cardiovascular Disease 12/16/20 Gigi Méndez MD [address] [place] [address] Referring Physician Cardiology 02/18/21 Bc Martinez MD [address] [place] [address] Referring Physician Cardiology 08/22/23 Martin Correa MD [address] [place] [address] Consulting Physician Cardiothoracic Surgery 08/22/23 documented as of this encounter
--- OUTSIDE RECORDS SUMMARY | 2024-08-09 20:22 | XMS_ITS | Encounter Summary ---
Author Organization [facility] Healthcare Address [address] [place] [address] Care Team Providers Care Interlocking Tower Operator Name Role Phone Christine Kendall MD Unavailable [phone] Sita Magana MD Unavailable [phone] Nabila King MD Primary Care Provider + [phone] Regulo Pandey MD Unavailable Gigi Méndez MD Unavailable [phone] Bc Martinez MD Unavailable [phone] Martin Correa MD Unavailable [phone] Encounter Details Date Type Department Care Team (Late st Contact Info) Description 06/10/2024 Orders Only [facility] [address] [place] [phone] Scanning, Provider Social History Tobacco Use Types [...] on file Legal Sex Female 8:14 PM EXHIBIT CARPENTER Gender Identity Not on file Sexual Orientation [...] on filedocumented in this encounter Care Teams Interlocking Tower Operator Relationship Specialty Start Date End Date Nabila King MD [address] [place] [address] PCP - General Internal Medicine 12/16/20 Christine Kendall MD Surgeon Ophthalmology 12/13/20 Sita Magana MD [address] [place] [address] Consulting Physician Internal Medicine 12/13/20 Regulo Pandey MD [address] [place] [address] [address] [place] [address] Referring Physician Cardiovascular Disease 12/16/20 Gigi Méndez MD [address] [place] [address] [address] [place] [address] Referring Physician Cardiology 02/18/21 Bc Martinez MD [address] [place] [address] Referring Physician Cardiology 08/22/23 Mratin Correa MD [address] [place] [address] Consulting Physician Cardiothoracic Surgery 08/22/23 documented as of this encounter
--- OUTSIDE RECORDS SUMMARY | 2024-08-09 20:22 | XMS_ITS | Encounter Summary ---
Author Organization [facility] Healthcare Address [address] [place] [address] Care Team Providers Care Drawing In Hand Name Role Phone Christine Kendall MD Unavailable [phone] Sita Magana MD Unavailable [phone] Nabila King MD Primary Care Provider + [phone] Regulo Pandey MD Unavailable Gigi Méndez MD Unavailable [phone] Bc Martinez MD Unavailable [phone] Martin Correa MD Unavailable [phone] Reason for Referral * Consultation (Routine) - Pending Review Specialty Diagnoses / Procedures Referred By Contac t Referred To Contact Physical Therapy Diagnoses Chronic back pain, unspecified back location, unspecified back pain laterality Chronic neck pain Imelda Gaytan NP [address] [place] [address] Phone: tel: fax: [facility] Eddie Gonzalez [address] [place] [address] Phone: tel: fax: Referral ID Status Reason Start Date Expiration Date Visits Requested Visits Authorized [id number] Pending Review Evaluate and Treat 4 07/13/2025 24 Question Answer PTRFR PT Evaluate and Treat Therapy options discussed with patient? Yes Location provided for therapy services is: Patient requested/Patient preferred Please select the performing region: External Order [171] To loc/pos [facility] Eddie Gonzalez [[id number]] # of visits: 24 Comments Please contact the pt to schedule for chronic back and neck pain. Thanks! Reason for Visit * Reason Comments 6 month follow up Test Results Encounter Details Date Type Department Care Team (Late st Contact Info) Description 06/13/2024 9:30 AM CDT Office Visit [facility] Medical Group [facility] [address] [place] [address] Imelda Gaytan NP [address] [place] [address] Chronic bilateral back pain, unspecified back [...] on file Legal Sex Female 8:14 PM PAPER BOX MAKER Gender Identity Not on file Sexual [...] PT. 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 [...] Antibiotics) Unknown Clarithromycin Hives Mastisol Adhesive [Gum Gpvxyv-Mtbwbw-Mefu-Alcohol] Hives and Rash Pt reports this is [...] Nabila King MD at 06/23/2024 7:15 PM PAPER BOX MAKER R BOX MAKER R BOX MAKER documented in this encounter Miscellaneous Notes * [...] exam today-no abscessor drainage noted. Continue same R BOX MAKER * Assessment & Plan Note - Imelda Gaytan NP - 06/23/2024 6:33 PM CSTAssociated Problem(s): ASVD (arteriosclerotic vascular disease) Chronic, controlled. Managed by Cardiology. CMP from January unremarkable, recent LDL after restartingCrestor is back within normal limits. Echo from 07/2023 showed EF of 60% with moderate tricuspid and aortic regurg. No acute findings on exam, vitals stable. Continue same. R BOX MAKER * Assessment & Plan Note - Imelda [...] muscle relaxers, patient refused at this time. R BOX MAKER * Assessment & Plan Note - Imelda [...] muscle relaxers, patient refused at this time. R BOX MAKER documented in this encounter Plan of Treatment [...] documented as of this encounter Care Teams Drawing In Hand Relationship Specialty Start Date End Date Nabila King MD [address] [place] [address] [address] [place] [address] PCP - General Internal Medicine 12/16/20 Christine Kendall MD Surgeon Ophthalmology 12/13/20 Sita Magana MD [address] [place] [address] [address] [place] [address] Consulting Physician Internal Medicine 12/13/20 Regulo Pandey MD [address] [place] [address] [address] [place] [address] Referring Physician Cardiovascular Disease 12/16/20 Gigi Méndez MD [address] [place] [address] [address] [place] [address] Referring Physician Cardiology 02/18/21 Bc Martinez MD [address] [place] [address] Referring Physician Cardiology 08/22/23 Martin Correa MD [address] [place] [address] Consulting Physician Cardiothoracic Surgery 08/22/23 documented as of this encounter
--- OUTSIDE RECORDS SUMMARY | 2024-08-09 20:22 | XMS_ITS | Encounter Summary ---
Author Organization [facility] Address [address] [place] [address] Phone Care Team Providers Care Or Rn Name Role Phone Christine Kendall MD Unavailable [phone] Sita Magana MD Unavailable [phone] Nabila King MD Primary Care Provider [phone] Regulo Pandey MD Unavailable Gigi Méndez MD Unavailable [phone] Bc Martinez MD Unavailable [phone] Martin Correa MD Unavailable [phone] [facility], [facility] Unavailable Reason for Visit * Diagnostic Imaging (Routine) - Closed Specialty Diagnoses / Procedures Referred By Contclaudia t Referred To Contact Diagnoses Age-related nuclear cataract of right eye Procedures Corneal Topography - OU - Both Eyes Christine Kendall MD [address] [facility] DEPT OPHTHALMOLOGY, [address] [place] [address] Phone: tel: fax: [facility] (All Locations) Referral ID Status Reason Start Date Expiration Date Visits Re quested Visits Authorized [id number] Closed 05/07/2024 06/06/2025 1 1 Encounter Details Date Type Department Care Team (Late st Contact Info) Description 07/15/2024 11:20 AM CHEMICAL WASTE MANAGEMENT TECHNICIAN Imaging Exam [facility] Ophthalmology [address] Floor, [address] [place] [address] Social History Tobacco Use Types Packs/Day Years [...] on file Legal Sex Female 8:14 PM CHEMICAL WASTE MANAGEMENT TECHNICIAN Gender Identity Not on file Sexual [...] Modality Head Other Narrative 07/16/2024 2:20 PM CHEMICAL WASTE MANAGEMENT TECHNICIAN Right Eye Quality was good. Progression has no prior data. Findings include normal observations. Left Eye Quality was good. Progression has no prior data. Notes No significant astigmatism confirmed right eye (OD) Christine Kendall MD OPHTH MAPPING Edited R esult - Final documented in this encounter Visit Diagnoses Not on filedocumented in this encounter Care Teams Or Rn Relationship Specialty Start Date End Date Nabila King MD [address] [facility] [address] [place] [address] PCP - General Internal Medicine 12/16/20 Christine Kendall MD Surgeon Ophthalmology 12/13/20 Sita Magana MD [address] [facility] [place] [address] Consulting Physician Internal Medicine 12/13/20 Regulo Pandey MD [address] [facility] [place] [address] Referring Physician Cardiovascular Disease 12/16/20 Gigi Méndez MD [address] [facility] [place] [address] Referring Physician Cardiology 02/18/21 Bc Martinez MD [address] [place] [address] Referring Physician Cardiology 08/22/23 Martin Correa MD [address] [place] [address] Consulting Physician Cardiothoracic Surgery 08/22/23 Gildardo Gonzáles Si, MD [address] [place] [address] Consulting Physician Neurology 07/09/24 documented as of this encounter
--- OUTSIDE RECORDS SUMMARY | 2024-08-09 20:22 | XMS_ITS | Encounter Summary ---
Author Organization [facility] Address [address] [place] [address] Phone Care Team Providers Care Vascular Surgeon Name Role Phone Christine Kendall MD Unavailable [phone] Sita Magana MD Unavailable [phone] Nabila King MD Primary Care Provider [phone] Regulo Pandey MD Unavailable Gigi Méndez MD Unavailable [phone] Bc Martinez MD Unavailable [phone] Martin Correa MD Unavailable [phone] NiviaGildardo bowen Si, MD Unavailable Reason for Referral * Diagnostic Imaging (Routine) - Authorized Specialty Diagnoses / Procedures Referred By Contac t Referred To Contact Diagnoses Age-related nuclear cataract of right eye Procedures IOL Biometry - OU - Both Eyes Christine Kendall MD [address] DEPT OPHTHALMOLOGY, [facility] [address] [place] [address] Phone: tel: fax: [facility] (All Locations) Referral ID Status Reason Start Date Expiration Date V isits Requested Visits Authorized [id number] Authorized 07/10/2024 08/09/2025 1 1 CERTIFIED PROJECT MANAGER Reason for Visit * Reason Comments Glaucoma Encounter Details Date Type Department Care Team (Late Contact Info) Description 07/15/2024 1:15 PM PMP CERTIFIED PROJECT MANAGER Office Visit [facility] Ophthalmology [address] [facility] 2nd Floor, [address] [place] [address] Chrisitne Kendall MD [address] DEPT OPHTHALMOLOGY, [address] [place] [address] Age-related nuclear cataract of right eye (Primary [...] on file Legal Sex Female 8:14 PM PMP CERTIFIED PROJECT MANAGER Gender Identity Not on file Sexual [...] x years with low intraocular pressure (IOP) CERTIFIED PROJECT MANAGER documented in this encounter Miscellaneous Notes * Assessment & Plan Note - Christine Kendall MD - 07/15/2024 11:02 PM PMP CERTIFIED PROJECT MANAGER Associated Problem(s): Age-related nuclear cataract of right eye Now VS with glare symptoms No noted astigmatism with IOLM or autorefractor Plan monofocal intraocular lens (IOL) Target plano Discussed R/B/A and pt agrees to proceed. CERTIFIED PROJECT MANAGER * Assessment & Plan Note - Christine Kendall MD - 07/15/2024 11:01 PM PMP CERTIFIED PROJECT MANAGER Associated Problem(s): Low-tension glaucoma, bilateral, severe stage intraocular pressure (IOP) acceptable off meds status post (s/p) Trab both eyes (OU) - Dyer visual field (HVF) stable x years with low intraocular pressure (IOP) CERTIFIED PROJECT MANAGER documented in this encounter Plan of Treatment Scheduled Orders Name Type Priority Associated Diagnoses Orde r Schedule PENTACAM - OU - BOTH EYES Ophthalmology Routine Age-related nuclear cataract of right eye 1 Occurrences starting 07/10/2024 until 07/10/2025 documented as of this encounter Procedures Procedure Name Priority Date/Time Associated Diagnosis Comments IOL BIOMETRY - OU - BOTH EYES Routine 07/15/2024 11:20 AM PMP CERTIFIED PROJECT MANAGER Age-related nuclear cataract of right eye documented in this encounter Results * IOL Biometry - OU - Both Eyes (07/15/2024 11:20 AM PMP CERTIFIED PROJECT MANAGER) AC IOL (OS) 4.61 CONTINUUM AC IOL (OD) 3.02 CONTINUUM White to White (OS) 11.6 mm CONTINUUM White to White (OD) 11.5 mm CONTINUUM A LENGTH (OS) 24.25 CONTINUUM A LENGTH (OD) 24.24 CONTINUUM Anatomical Region Laterality Modality Head Ophthalmic Axial Measurements Narrative 07/15/2024 5:31 PM PMP CERTIFIED PROJECT MANAGER Right Eye Axial length was 24.24. White [...] 1.0% Mydriacyl @ 1:40 PM Keratometry K1 Daisy K2 Daisy Mires Right eye 41.50 47 42.00 145 [...] Periphery Normal Normal Wearing Rx Sphere Cylinder Daisy Right eye Holton +2.00 179 Left eye -0.50 +1.75 110 Type: Bifocal Care Teams Vascular Surgeon Relationship Specialty Start Date End Date Nabila King MD [address] [facility] [address] [place] [address] PCP - General Internal Medicine 12/16/20 Christine Kendall MD Surgeon Ophthalmology 12/13/20 Sita Magana MD [address] [facility] [address] [place] [address] Consulting Physician Internal Medicine 12/13/20 Reuglo Pandey MD [address] [facility] [address] [place] [address] Referring Physician Cardiovascular Disease 12/16/20 Gigi Méndez MD [address] [facility] [address] [place] [address] Referring Physician Cardiology 02/18/21 Bc Martinez MD [address] [place] [address] Referring Physician Cardiology 08/22/23 Martin Correa MD [address] [place] [address] Consulting Physician Cardiothoracic Surgery 08/22/23 Gildardo Gonzáles Si, MD [address] [facility] [address] [place] [address] Consulting Physician Neurology 07/09/24 documented as of this encounter
--- OUTSIDE RECORDS SUMMARY | 2024-08-09 20:22 | XMS_ITS | Referral Summary ---
Author Organization [facility] Address [address] [place] [address] Phone Care Team Providers Care Patrol Sergeant Name Role Phone FaizaChristine mak MD Unavailable [phone] Melinda Magana MD Unavailable [phone] Nabila King MD Primary Care Provider + [phone] Regulo Pandey MD Unavailable Gigi Méndez MD Unavailable [phone] Bc Martinez MD Unavailable [phone] Martin Correa MD Unavailable [phone] NiviaGildardo bowen Si, MD Unavailable Encounters Date Type Department Care Team Description 08/08/2024 Telephone [facility] Ophthalmology [facility] [place] [address] Gracy Ocampo COA 08/06/2024 11:45 AM ARMHOLE BASTER HAND Office Visit [facility] Medical [facility] [address] [place] [address] Nabila King MD Acute hearing loss of both ears (Primary Dx); Endolymphatic hydrops of left ear; 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 [facility] 2nd Floor, [address] [place] [address] Christine Kendall MD Age-related nuclear cataract of right eye (Primary Dx); Low-tension glaucoma, bilateral, severe stage 07/15/2024 11:20 AM ARMHOLE BASTER HAND Imaging Exam [facility] Ophthalmology [address] [facility] 2nd Floor, [address] [place] [address] 07/09/2024 10:30 AM ARMHOLE BASTER HAND Office Visit [facility] Neurology [address] [facility] [address] [place] [address] NiviaGildardo Si, MD Pain; Numbness; Dizziness; Chronic bilateral low back pain, unspecified whether sciatica present; Chronic neck pain; Neuroforaminal stenosis of lumbar spine 07/03/2024 Telephone [facility] [address] [place] [address] Nabila King MD Dizziness 06/26/2024 Telephone [facility] [address] [place] [address] Nabila King MD PT Diagnosis 06/25/2024 Telephone [facility] [address] [place] [address] Nabila King MD Neuro Referral 06/13/2024 Telephone [facility] [address] [place] [address] Imelda Gaytan NP 06/13/2024 9:30 AM CDT Office Visit [facility] [address] [place] [address] Imelda Gaytan NP Chronic bilateral back pain, unspecified back location (Primary Dx); Chronic neck pain; ASVD (arteriosclerotic vascular disease); Periodontal disease 06/10/2024 Orders Only [facility] [address] [place] [address] Scanning, Provider from Last 3 Months Allergies Active Allergy Reactions Criticality Noted Date Comments Chloramphenicol Other (See comments) Low Damaged liver and wiped out white blood cells Clarithromycin Hives Medium Gum Idjigb-Jvmvkl-Bocu-Alcoho l Hives,Rash Medium 03/18/2022 Pt reports this [...] 06/23/2024 Assessment & Plan (06/23/2024 6:27 PM ARMHOLE BASTER HAND): Chronic, uncontrolled. Worse in the last 3 [...] 06/23/2024 Assessment & Plan (06/23/2024 6:28 PM ARMHOLE BASTER HAND): Chronic, uncontrolled. Worse in the last 3 [...] 06/23/2024 Assessment & Plan (06/23/2024 6:40 PM ARMHOLE BASTER HAND): Chronic, controlled. Recent facial MRI shows Nonspecific 1.6 x 0.3 x 1.3 cm peripherally enhancing fluid collection along the anterior midline mandibular body suspicious for an abscess in the appropriate clinical setting. No adjacent cortical destruction or bone edema. Mild mucosal thickening of the inferior left maxillary sinus. Patient has been taking daily doxycycline since February and has seen piling setter multiple times. CBC from January unremarkable. [...] 0 Assessment & Plan (06/23/2024 6:33 PM ARMHOLE BASTER HAND): Chronic, controlled. Managed by Cardiology. CMP from [...] normal reflexes. She recently started turmeric and care provider last week along with stretching exercises. I [...] stage Assessment & Plan (07/15/2024 11:01 PM ARMHOLE BASTER HAND): intraocular pressure (IOP) acceptable off meds status [...] DFE Assessment & Plan (09/20/2021 6:46 PM ARMHOLE BASTER HAND): intraocular pressure (IOP) acceptable off meds status [...] 24-2 Assessment & Plan (07/23/2018 11:42 AM ARMHOLE BASTER HAND): intraocular pressure (IOP) excellent- blebs functioning well [...] 2014 Assessment & Plan (07/15/2024 11:02 PM ARMHOLE BASTER HAND): Now VS with glare symptoms No noted [...] observe Assessment & Plan (09/20/2021 12:48 PM ARMHOLE BASTER HAND): Not VS- observe Assessment & Plan (12/14/2020 [...] visit Assessment & Plan (07/23/2018 11:42 AM ARMHOLE BASTER HAND): Not visually significant Assessment & Plan (01/22/2018 [...] undergo trial of Doxy 50 mg/day per security operations analyst Pseudophakia 01/22/2018 04/10/2022 Assessment & Plan (03/18/2022 11:46 AM CDT): Recommend MRx with local medicine technologist Mitral valve disease 09/30/2014 022 Overview (11/24/2016): [...] on file Legal Sex Female 8:14 PM ARMHOLE BASTER HAND Gender Identity Not on file Sexual Orientation Not on file 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 Not on file Last Filed Vital Signs Vital Sign Reading Time Taken Comments Blood Pressure 130/66 08/06/2024 11:55 AM ARMHOLE BASTER HAND Pulse 80 08/06/2024 11:55 AM ARMHOLE BASTER HAND Temperature 36.3 ??C (97.3 ??F) 08/06/2024 11:[address] Respiratory Rate 18 08/06/2024 11:55 AM ARMHOLE BASTER HAND Oxygen Saturation 97% 08/06/2024 11:55 AM ARMHOLE BASTER HAND Inhaled Oxygen Concentration - - Weight 56.8 kg (125 lb 3.2 oz) 08/06/2024 11:55 AM ARMHOLE BASTER HAND Height 162.6 cm (5' 4 ) 08/06/2024 11:55 AM ARMHOLE BASTER HAND Body Mass Index 21.49 08/06/2024 11:55 AM ARMHOLE BASTER HAND Plan of Treatment Not on file Procedures Procedure Name Priority Date/Time Associated Diagnosis Comments IOL BIOMETRY - OU - BOTH EYES Routine 07/15/2024 11:20 AM ARMHOLE BASTER HAND Age-related nuclear cataract of right eye SCAN - RADIOLOGY/IMAGING 06/10/2024 CHOLESTEROL, LDL, DIRECT Routine 05/28/2024 8:15 AM CDT Multiple-type hyperlipidemia CORNEAL TOPOGRAPHY - OU - BOTH EYES Routine 05/13/2024 10:00 AM CDT Age-related nuclear cataract of right eye from Last 3 Months Results * IOL Biometry - OU - Both Eyes (07/15/2024 11:20 AM ARMHOLE BASTER HAND) AC IOL (OS) 4.61 CONTINUUM AC IOL (OD) 3.02 CONTINUUM White to White (OS) 11.6 mm CONTINUUM White to White (OD) 11.5 mm CONTINUUM A LENGTH (OS) 24.25 CONTINUUM A LENGTH (OD) 24.24 CONTINUUM Anatomical Region Laterality Modality Head Ophthalmic Axial Measurements Narrative 07/15/2024 5:31 PM ARMHOLE BASTER HAND Right Eye Axial length was 24.24. White [...] AM CDT Performed at: ??01 - [facility] [address] ??[id number] Restaurant Kitchen And Service Manager: Darek Farrell PhD, Phone: ??[phone] us Nabila King MD LAB BLOOD ORDERABLES Final Result [facility] - 01 * Corneal Topography - OU - Both Eyes (05/13/2024 10:00 AM CDT) Anatomical Region Laterality Modality Head Other Narrative 07/16/2024 2:20 PM ARMHOLE BASTER HAND Right Eye Quality was good. Progression has no prior data. Findings include normal observations. Left Eye Quality was good. Progression has no prior data. Notes No significant astigmatism confirmed right eye (OD) us Christine Kendall MD OPHTH MAPPING Edited R esult - Final from Last 3 Months Insurance [facility] [employer] [place] [address] [employer] MEDICARE Advance Directives For more information, please contact: [phone] Documents on File Type Date Recorded Patient Receiving Worker Expl anation ADVANCE DIRECTIVE 07/04/2022 POWER [employer] Care Teams Patrol Sergeant Relationship Specialty Start Date End Date Nabila King MD [address] [place] [address] [address] [place] [address] PCP - General Internal Medicine 12/16/20 Christine Kendall MD Surgeon Ophthalmology 12/13/20 Melinda Magana MD [facility] [place] [address] Consulting Physician Internal Medicine 12/13/20 Regulo Pandey MD [address] [place] [address] Referring Physician Cardiovascular Disease 12/16/20 Gigi Méndez MD [address] [facility] [place] [address] Referring Physician Cardiology 02/18/21 Bc Martinez MD [address] [place] [address] Referring Physician Cardiology 08/22/23 Martin Correa MD [address] [place] [address] Consulting Physician Cardiothoracic Surgery 08/22/23 Gildardo Gonzá[place] [address] [place] [address] [address] [place] [address] Consulting Physician Neurology 07/09/24
--- OUTSIDE RECORDS SUMMARY | 2024-08-09 20:22 | XMS_ITS | CONTINUITY OF CARE DOCUMENT ---
Author Name anatoliy cope Address Unknown Organization [facility] Address [address] [place] [address] [address] [place] [address] Phone [phone] Care Team Providers Care Process Coach Name Role Phone Michelle HAMMOND, Bc Unavailable [phone] STACY MCFADDEN MD Unavailable [phone] STACY MCFADDEN MD Unavailable [phone] PROBLEMS Condition Status Date Provider Notes S/P [...] In-person encounter Office Visit Bc Martinez MD [facility] 9 - 9 In-person encounter Office Visit Bc Martinez MD [facility] 1 - 4 In-person encounter Office Visit Bc Martinez MD [facility] Mitral regurgitation, mild 3 - 3 In-person encounter Office Visit Bc Martinez MD [facility] Shortness of breathInsomnia 3 - 3 In-person encounter Office Visit Bc Martinez MD [facility] 0 - 0 In-person encounter Office Visit Bc Martinez MD [facility] Near syncopeVentricular tachycardiaChest pain 0 - 2 In-person encounter Office Visit Bc Martinez MD [facility] 5 - 8 In-person encounter Office Visit Bc Martinez MD [facility] 6 - 0 In-person encounter Office Visit Bc Martinez MD [facility] 3 - 5 In-person encounter Office Visit Bc Martinez MD [facility] 5 - 5 In-person encounter Office Visit Bc Martinez MD [facility] Office 8 - 8 In-person encounter Office Visit Bc Martinez MD [facility] Office 8 - 1 In-person encounter Office Visit Bc Martinez MD [facility] 1 - 1 In-person encounter Office Visit Bc Martinez MD [facility] Aortic insufficiency, moderateTricuspid regurgitation, moderate-severeAtrial fibrillationSinus [...] alexisenenfeldphilippe pulse rate 80 /min Shanna Ushajuancarlos [facility] weight E&M 125 [lb_av] Shanna Ushanfe [facility] height E&M 64 [in_i] Shanna Ushanfjuan [facility] Body Mass Index (Ratio) 20.94 kg/m2 Remy Martinez MD blood pressure, cuff size regular Ke rri Gruenenfelder blood pressure, diastolic 80 mm[Hg] Ke rri Grueneashvinelder blood pressure, systolic 166 mm[Hg] Lisbet ri Americoaarongideonashvineldphilippe oxygen saturation, oximetry 98 % Shanna Noblekrystal respiratory rate E&M 12 /min Shanna G yovana pulse rate 81 /min Shanna Tamiajuan [facility] weight E&M 122 [lb_av] Shanna Nobleneashvine [facility] height E&M 64 [in_i] Shanna Americosaraijuan [facility] Body Mass Index (Ratio) 20.94 kg/m2 Remy Martinez MD blood pressure, cuff size regular [facility] Andrew blood pressure, diastolic 85 mm[Hg] [facility] Andrew blood pressure, systolic 122 mm[Hg] Maximino [facility] pulse rate 80 /min [facility] oxygen saturation, oximetry 98 % [facility] respiratory rate E&M 15 /min Cristina hunter weight E&M 122 [lb_av] Cristina Charlo height E&M 64 [in_i] [facility] Body Mass Index (Ratio) 21.11 kg/m2 Dario zhang blood pressure, cuff size regular Ke rri Americouenelolis blood pressure, diastolic 80 mm[Hg] Luisito rri Americouenenfsusan blood pressure, systolic 132 mm[Hg] Lisbet Baker oxygen saturation, oximetry 98 % Shanna Samuel respiratory rate E&M 12 /min Shanna yen pulse rate 81 /min Shanna Greer [facility] weight E&M 123 [lb_av] Shanna Percy [facility] height E&M 64 [in_i] Shanna Percy [facility] Body Mass Index (Ratio) 20.94 kg/m2 Dario [...] Martinez MD blood pressure, cuff size regular Sc karl Caruso blood pressure, diastolic 82 mm[Hg] Mi karl Eggleston blood pressure, systolic 140 mm[Hg] [facility] stephanie Eggleston oxygen saturation, oximetry 98 % Vanessa Caruso [...] petersonnfelder pulse rate 66 /min Shanna Greer [facility] weight E&M 124 [lb_av] Shanna Greer er height E&M 64 [in_i] Shanna Greer [facility] Body Mass Index (Ratio) 21.28 kg/m2 Taew on blood pressure, diastolic, standing 76 mm [Hg] Taewon blood pressure, systolic, standing 192 mm [Hg] Taon Amrit blood pressure, cuff size regular Ke rri Grueneashvinelder blood pressure, diastolic 80 mm[Hg] Ke rri Americoueneashvineld blood pressure, systolic 132 mm[Hg] Lisbet Summers oxygen saturation, oximetry 98 % [facility] respiratory rate E&M 14 /min [facility] pulse rate 80 /min Shanna Greer [facility] weight E&M 124 [lb_av] Shanna Greer er height E&M 64 [in_i] Shanna Greer [facility] ALLERGIES Allergy Name Onset Date Reaction Criticality [...] Not Estab. platelet count 264 X10E3/UL [employer]Log[employer] 004-096 6485/01 /21 red blood cell distribution width 13.1 [...] LinkLogic 3.5-5.2 sodium, serum 139 mmol/L [employer] 440-091 0815/01 /21 urea nitrogen/creatinine ratio, serum 23 LinkLogic [...] LinkLogic 3.5-5.2 sodium, serum 141 mmol/L [employer] 711-240 7812/06 /15 urea nitrogen/creatinine ratio, serum 17 LinkLogic [...] Not Estab. platelet count 320 X10E3/UL [employer] 581-374 7219/06 /15 red blood cell distribution width 12.8 [...] iron binding capacity, unsaturated 243 ug/dL [employer] 434-179 7160/03 /16 iron binding capacity, total 301 ug/dL [employer] 380-751 5406/03 /16 alanine aminotransferase (SGPT), serum 24 1/L [...] LinkLogic 3.5-5.2 sodium, serum 142 mmol/L [employer] 588-809 1644/03 /16 urea nitrogen/creatinine ratio, serum 20 LinkLogic [...] Not Estab. platelet count 256 X10E3/UL [employer] 886-883 9642/03 /16 red blood cell distribution width 13.0 [...] LinkLogic 3.5-5.2 sodium, serum 138 mmol/L [employer] 290-347 6832/01 /28 urea nitrogen/creatinine ratio, serum 20 LinkLogic [...] Not Estab. platelet count 276 X10E3/UL [employer] 429-177 0910/01 /28 red blood cell distribution width 12.8 [...] Bubba aparicio smoking status Never smoker Kayden [place] Exercise counseling No - Medical Reason Ras [...] Payer name Policy type / Coverage type [employer] alliance party ID [employer] Other [employer] HE[employer]ARE Other AETNA MEDICARE [place] PPO Medicare [id number] 100 ADVANCE DIRECTIVES Name Date DISCUSSED - NO DECISION MADE TREATMENT PLAN Date Name Performer [id number],S, Dario Wade i [id number],B,e pisodes occur almost daily but not worse from before Dario Morocho [id number],S, Dario Wade i [id number],S, Dario Wade i [id number],C, u nchanged from echo 09/2022 Dario Morocho [id number],C,on Eliquis Kita Morocho [id number],C,U nlikely to be cardiac as her stress nuclear and echo were overall normal. Dario Morocho [id number],C,unchanged fro m echo today Dario Morocho [id number],S,S mellisa last visit she complains of dizziness, near syncope, vision changes. She also complains of chest pain which radiates to her neck. She has poor sleep quality. She has VT episodes seen on device check, will check echo to assess for EF and stress nuclear to rule out ischemia as culprit for VT. Dario Wadei [id number],S, Dario Wade i [id number],C,Occurs daily Dario Morocho [id number],C, Device check shows new episodes of VT, will check echo and stress nuclear to evaluate and rule out ischemia. Dario Morocho [id number],C,S xs occur almost daily. Device check shows new episodes of VT, will check echo and stress nuclear to evaluate . Dario Morocho [id number],W,R ecent device check showed AT/AF [place]: 0.0%, % Pacing: RA - 87.0% RV - 12.0%. Dario Morocho [id number],C,u nknown etiology of her dizziness and imbalance, recommended she decrease her Diltiazem to 30 mg BID and see if her sxs improve. Dario Morocho [id number],C,R emote check from 04/30 showed AT/AF [place]: 0.0% % Pacing: RA - 88.0% RV - 19.0% Dario Wade [id number],C, I mproved. Dario Morocho [id number],C,E cho CONCLUSIONS: 1 . Normal left ventricular [...] root size. Mild aortic wall calcification. [facility] [id number],C,Improved. Antonieta rené [facility] [id number],C,H er recent device check showed AT/AF [place]: 0.0%, % Pacing: RA - 86.0% RV - 8.0%. 02/2022 Dario beckyjoie [id number],C,No reoccurran ce. Dario ct [id number],C,l ast EKG with NSR. No events on device. T he 'red streaks' around incision to PPM is from the sutures used. Not on AC. Takes only ASA daily. Reinforced to patient to take Eliquis 2.5 mg bid. Diltiazem was decreased to 30 mg tid. Jolene Roland JASON [id number],B,resolved. She rry Luan GOMEZ [id number],S,moderate per last echo Jolene Roland JASON [id number],C, C ontinues to have dizziness. Pacemaker is functioning well. Will schedule echo and carotid duplex and obtain labwork for further assessment. Nichole Dustin [id number],C, C ontinues to have dizziness. Pacemaker is functioning well. Will schedule echo and carotid duplex and obtain labwork for further assessment. Nichole Dustin [id number],S, H ad pacemaker placed. Device is functioning well Nichole Ashleykoko [id number],C, r emains on Eliquis 2.5mg BID. Device check last week showed no afib Nichole Ashleykoko [id number],C, F ollows with PCP. Celestenara Key [place] [id number],S, Celeste Yesi GOMEZ [id number],C,w ill increase HR to [address] on device. will check CT head non-contrast. will check cxr Celeste Key NP [id number],C,i nterrogation no events. will increase rate to 80. will check cxr, CT head without contrast. Celeste Key NP [id number],C,s/p PPM. will check CXR today Celeste Yesi GOMEZ [id number],C,r emains on Eliquis 2.5mg BID. interrogation today,no AFIB. Celeste Yesi GOMEZ [id number],C,r estart eliquis now take 5 mg of eliquis now and continue 2.5 mg PO bid atrting tomorrow Bc Martinez MD [id number],C, Bc salinas MD [id number],B, Bc salinas MD [id number],C, Bc salinas MD [id number],C,p ost pacemaker implantation O rders: G lobal No Charge (CPT-58315) Bc Martinez MD [id number],C,s hould improve if in sinus O rders: C omplete Echo (CPT-74966) Bc Martinez MD [id number],W,a rrhythmia na AI related O rders: C omplete Echo (CPT-58119) 9 9214 MOD 30-39min (CPT-35711) Bc Colekhadar HAMMOND [id number],W, O rders: C omplete Echo (CPT-56435) P acemaker Dual Chamber - SLHV (*) ravi Michelle HAMMOND [id number],W, O rders: P acemaker Dual Chamber - [...] MAY BE AN OPTION Orders: E KG (CPT-07226) C omplete Echo (CPT-82512) 9 9214 MOD 30-39min (CPT-09653) Bc Martinez MD [id number],W, M onitor from 06/29/2021 shows minimum HR [...] Chamber - SLHV (*) Bc Martinez MD [id number],C, O rders: C omplete Echo (CPT-06362) Jossie Amrit [id number],B, M onitor from 06/29/2021 shows minimum HR [...] Dual Chamber - SLHV (*) Jossie Marcus [id number],C, O rders: Mansoor quiroga Dual Chamber - [...] FLECAINIDE MAY BE AN OPTION Jacquesebony Marcus [id number],Ras Pires with PCP. Jossie Marcus [id number],W, M onitor from 06/29/2021 shows minimum HR [...] Dual Chamber - SLHV (*) Jossie Marcus [id number],C, Jossie Marcus [id number],C, O rders: Mansoor quiroga Dual Chamber - [...] TIME WITH INR (8847) [facility]ario [facility] H er updated medication list for [...] have referrred her to CT surgery at [facility] Kayden Pablo Electrophysiology Kayden Pablo Electrophysiology Dario [...] rule out ischemia as culprit for VT. [facility] Electrophysiology:Occurs daily R wvrené [facility] Electrophysiology: D evice check shows new episodes of VT, will check echo and stress nuclear to evaluate and rule out ischemia. [facility] Electrophysiology:Sx s occur almost daily. Device check shows new episodes of VT, will check echo and stress nuclear to evaluate . [facility] Electrophysiology:Re cent device check showed AT/AF [place]: 0.0%, % Pacing: RA - 87.0% RV - 12.0%. [facility]:un known etiology of her dizziness and imbalance, recommended she decrease her Diltiazem to 30 mg BID and see if her sxs improve. [facility] Electrophysiology:Re mote check from 04/30 showed AT/AF [place]: 0.0% % Pacing: RA - 88.0% RV - 19.0% [facility] Electrophysiology: I mproved. [facility] Electrophysiology:Ec ho CONCLUSIONS: 1 . Normal left [...] Electrophysiology:He r recent device check showed AT/AF [place]: 0.0%, % Pacing: RA - 86.0% RV [...] Electrophysiology: F ollows with PCP. Celeste Key PROSTHETICS TECHNICIAN Electrophysiology Celeste paez PROSTHETICS TECHNICIAN Electrophysiology:wi ll increase HR to 80 on device. will check CT head non-contrast. will check cxr Celeste Key PROSTHETICS TECHNICIAN Electrophysiology:in terrogation no events. will increase rate [...] implantation O rders: G lobal No Charge (CPT-94354) Bc Martinez MD Electrophysiology:sh ould improve if in sinus O rders: C omplete Echo (CPT-51022) Bc Martinez MD Electrophysiology:ar rhythmia na AI related O rders: C omplete Echo (CPT-35450) 9 9214 MOD 30-39min (CPT-93024) Bc Martinez MD Electrophysiology: O rders: C omplete Echo (CPT-85075) P acemaker Dual Chamber - SLHV (*) [...] MAY BE AN OPTION Orders: E KG (CPT-97011) C omplete Echo (CPT-27440) 9 9214 MOD 30-39min (CPT-06349) Bc Martinez MD Electrophysiology: M onitor from [...] MD Electrophysiology: O rders: Pranay cottonlete Echo (CPT-76061) Jossie Marcus Electrophysiology: M onitor from 06/29/2021 [...] acemalisbet Dual Chamber - SLHV (*) Jossie Marcus Electrophysiology: O rders: P acemaker [...] [address] Martinez at [facility] completed EKG Bc Martinez MD comp leted EKG Bc Martinez MD comp leted
--- OUTSIDE RECORDS SUMMARY | 2024-08-09 20:22 | XMS_ITS | Encounter Summary ---
Author Organization [facility] Healthcare Address [address] [place] [address] Care Team Providers Care Statistical Secretary Name Role Phone Christine Kendall MD Unavailable [phone] Sita Magana MD Unavailable [phone] Nabila King MD Primary Care Provider [phone] Regulo Pandey MD Unavailable Gigi Méndez MD Unavailable [phone] Bc Martinez MD Unavailable [phone] aMrtin Correa MD Unavailable [phone] Gildardo Gonzáles Si, MD Unavailable Reason for Visit * Reason Onset Date Comments PT Diagnosis 06/26/2024 Encounter Details Date Type Department Care Team (Late st Contact Info) Description 06/26/2024 Telephone [facility] [address] [place] [id number] Nabila King MD [address] [place] [address] PT Diagnosis Social History Tobacco Use Types [...] on file Legal Sex Female 8:14 PM DELIVERY ROOM 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 Will let [facility] PT know that we fixed the order. VERY ROOM SUPERVISOR * Telephone Encounter - Imelda Gaytan NP - 06/26/2024 1:48 PM CST Ok to change dx to physical deconditioning. VERY ROOM SUPERVISOR * Telephone Encounter - Elizabeth Whitaker - 06/26/2024 1:15 PM DELIVERY ROOM SUPERVISOR Received secure message from [facility] stating that chronic back and neck pain not being covered diagnosis for patient to received physical therapy. Asked to change diagnosis to weakness, deconditioning or strengthening. FYI GKL ORIGINAL MESSAGE: this dx for Physical Therapy is not acceptable by insurance company. Please change dx ie, weakness,deconditioning, or strengthening VERY ROOM SUPERVISOR documented in this encounter Plan of Treatment Not on file documented as of this encounter Visit Diagnoses Not on filedocumented in this encounter Care Teams Statistical Secretary Relationship Specialty Start Date End Date Nabila King MD [address] [facility] [address] [address] PCP - General Internal Medicine 12/16/20 Christine Kendall MD Surgeon Ophthalmology 12/13/20 Sita Magana MD [address] [facility] [address] [place] [address] Consulting Physician Internal Medicine 12/13/20 Regulo Pandey MD [address] [facility] [address] [place] [address] Referring Physician Cardiovascular Disease 12/16/20 Gigi Méndez MD [address] [facility] [address] [place] [address] Referring Physician Cardiology 02/18/21 Bc Martinez MD [address] [place] [address] Referring Physician Cardiology 08/22/23 Martin Correa MD [address] [place] [address] Consulting Physician Cardiothoracic Surgery 08/22/23 NiviaGildardo Si, MD [facility] [facility] [address] [place] [address] Consulting Physician Neurology 07/09/24 documented as of this encounter
--- OUTSIDE RECORDS SUMMARY | 2024-08-09 20:22 | XMS_ITS | Encounter Summary ---
Author Organization [facility] Healthcare Address [address] [place] [address] Care Team Providers Care Membership Solicitor Name Role Phone Christine Styles MD Unavailable [phone] Sita Magana MD Unavailable [phone] Nabila King MD Primary Care Provider + [phone] Regulo Pandey MD Unavailable Gigi Méndez MD Unavailable [phone] Bc Martinez MD Unavailable [phone] Martin Correa MD Unavailable [phone] Reason for Referral * Consultation (Urgent) - Authorized Specialty Diagnoses / Procedures Referred By Contac t Referred To Contact Neurology Diagnoses Pain Numbness Dizziness Chronic bilateral low back pain, unspecified whether sciatica present Chronic neck pain Neuroforaminal stenosis of lumbar spine Nabila King MD [address] [place] [address] Phone: tel: fax: Gildardo Gonzáles Si, MD [address] [place] [address] [address] Phone: tel: fax: Referral ID Status Reason Start Date Expiration Date Visits Requested Visits Authorized [id number] Authorized Specialty Services Required 08/03/2025 12 12 Question Answer Please select the performing region: [facility] Medical Group [[id number]] Please select the performing department: [facility] NEURO BLVLE 250 [[id number]] # of visits: 12 Comments Urgent/SUSANA Refer to [facility] Neurology [place] Patient has something going on in her neck and shoulder that are leading to the pain problems and numbness neurologic impingement. Please contact patient to set up SUSANA appt.. Thank You! 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 Neurology-Dr. Abarca is booked out. [facility] [place] can get pt in this month. Pt aware & is okay with going to [facility] [place] because her Neurosurgeon Dr. lEizalde is with [facility]. (1) Pt aware she is scheduled to see Neurology-Dr. Gildardo Gonzáles at [facility] [id number] at 10:30am/Arrive 15 min early,no new pt paperwork to fill out per, their office,bring allmed bottles or med list & pt will get appt reminder call. She was given Dr. Gonzáles's telephone number/address. (2) Pt scheduled to see Dr. RAMIREZ on 08-06-24 at 11:45am to f/u on Neurology-Dr. Gonzáles's appt.. She voiced understanding. IAL INVESTIGATION UNIT 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 * Telephone Encounter - Vicenta Melo RN - 07/04/2024 9:10 AM SPECIAL INVESTIGATION UNIT 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 She was a lot of things going [...] the pain problems and numbness neurologic impingement.) IAL INVESTIGATION UNIT 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 * Telephone Encounter - Vicenta Melo RN - 07/03/2024 2:38 PM SPECIAL INVESTIGATION UNIT 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 TOK: Spoke to ADDI Jules at [facility]. Patient told her that the dizziness and nausea has been getting worse but is not new. She has some tingling on the L side of her face and it goes into her shoulders. Dhara did a cranial nerve test and it was noted L pupil does not dilate like the R one. Trouble with dull sharp differentiae on the L side. 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 Patient asked to make an appt with [facility]. She was advised to go to ER again especially if symptoms worsen and she voiced understanding. Please advise IAL INVESTIGATION UNIT 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 * Telephone Encounter - Elizabeth Whitaker - 07/03/2024 2:27 PM SPECIAL INVESTIGATION UNIT 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 [facility] Physical Therapy in [place] called stating that she is struggling with dizziness and nausea. States that they did a cranial nerve exam and not all of the tests came back normal. Wanting to know how to proceed. [phone] IAL INVESTIGATION UNIT 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 documented in this encounter Plan of Treatment [...] Cervicalgia documented in this encounter Care Teams Membership Solicitor Relationship Specialty Start Date End Date Nabila King MD [address] [facility] [address] [place] [address] PCP - General Internal Medicine 12/16/20 Christine Styles MD Surgeon Ophthalmology 12/13/20 Sita Magana MD [address] [place] [address] [address] [place] [address] Consulting Physician Internal Medicine 12/13/20 Regulo Pandey MD [address] [place] [address] Referring Physician Cardiovascular Disease 12/16/20 Gigi Méndez MD [address] [place] [address] Referring Physician Cardiology 02/18/21 Bc Martinez MD [address] [place] [address] Referring Physician Cardiology 08/22/23 Martin Correa MD [address] [place] [address] Consulting Physician Cardiothoracic Surgery 08/22/23 documented as of this encounter
--- OUTSIDE RECORDS SUMMARY | 2024-08-09 20:23 | XMS_ITS | Encounter Summary ---
Author Organization [facility] Healthcare Address [address] [place] [address] Care Team Providers Care Forensic Ballistics Expert Name Role Phone Christine Kendall MD Unavailable [phone] Sita Magana MD Unavailable [phone] Nabila King MD Primary Care Provider + [phone] Regulo Pandey MD Unavailable Gigi Méndez MD Unavailable [phone] Bc Martinez MD Unavailable [phone] Martin Correa MD Unavailable [phone] Encounter Details Date Type Department Care Team (Late st Contact Info) Description 03/21/2024 Telephone [facility] Medical Group [facility] [address] [place] [phone] Nabila King MD [address] [place] [address] Social History Tobacco Use Types Packs/Day Years [...] on file 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 contact her to schedule her [...] on filedocumented in this encounter Care Teams Forensic Ballistics Expert Relationship Specialty Start Date End Date Nabila King MD [address] [facility] [address] [place] [address] PCP - General Internal Medicine 12/16/20 Christine Kendall MD Surgeon Ophthalmology 12/13/20 Sita Magana MD [address] [place] [address] [address] [place] [address] Consulting Physician Internal Medicine 12/13/20 Regulo Pandey MD [address] [place] [address] Referring Physician Cardiovascular Disease 12/16/20 Gigi Méndez MD [address] [place] [address] Referring Physician Cardiology 02/18/21 Bc Martinez MD [address] [place] [address] Referring Physician Cardiology 08/22/23 Martin Correa MD [address] [place] [address] Consulting Physician Cardiothoracic Surgery 08/22/23 documented as of this encounter
--- OUTSIDE RECORDS SUMMARY | 2024-08-09 20:23 | XMS_ITS | Encounter Summary ---
Author Organization [facility] Healthcare Address [address] [place] [address] Care Team Providers Care Upper Stitcher Name Role Phone Christine Kendall MD Unavailable [phone] Sita Magana MD Unavailable [phone] Nabila King MD Primary Care Provider + [phone] Regulo Pandey MD Unavailable Gigi Méndez MD Unavailable [phone] Bc Martinez MD Unavailable [phone] Martin Correa MD Unavailable [phone] Encounter Details Date Type Department Care Team (Late st Contact Info) Description 04/12/2024 Orders Only [facility] Medical [facility] [address] [place] [phone] Scanning, Provider Social History Tobacco Use Types [...] on file 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 Gender Identity Not on file Sexual [...] on filedocumented in this encounter Care Teams Upper Stitcher Relationship Specialty Start Date End Date Nabila King MD [address] [place] [address] PCP - General Internal Medicine 12/16/20 Christine Kendall MD Surgeon Ophthalmology 12/13/20 Sita Magana MD [address] [place] [address] Consulting Physician Internal Medicine 12/13/20 Regulo Pandey MD [address] [place] [address] Referring Physician Cardiovascular Disease 12/16/20 Gigi Méndez MD [address] [place] [address] Referring Physician Cardiology 02/18/21 Bc Martinez MD [address] [place] [address] Referring Physician Cardiology 08/22/23 Martin Correa MD [address] [place] [address] Consulting Physician Cardiothoracic Surgery 08/22/23 documented as of this encounter
--- OUTSIDE RECORDS SUMMARY | 2024-08-09 20:23 | XMS_ITS | Encounter Summary ---
Author Organization [facility] Healthcare Address [address] [place] [address] Care Team Providers Care Supervisor Poultry Hatchery Name Role Phone Christine Kendall MD Unavailable [phone] Sita Magana MD Unavailable [phone] Nabila King MD Primary Care Provider + [phone] Regulo Pandey MD Unavailable Gigi Méndez MD Unavailable [phone] Bc Martinez MD Unavailable [phone] Martin Correa MD Unavailable [phone] Reason for Visit * Reason Onset Date Comments Regarding all 4 MRI's. 04/11/2024 Encounter Details Date Type Department Care Team (Late st Contact Info) Description 04/11/2024 Telephone [facility] Medical [facility] [address] [place] [phone] Nabila King MD [address] [place] [address] Regarding all 4 MRI's. 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 on 04-16-24. She knows once I hear back from insurance I will let her know. Diandra at [facility] is aware of this & cx'd MRI's. She also knows we are waiting results of MRI Cervical Spine w wo contrast & once we received wewill call her with results & will see,if Dr. Nabila King still wants MRI Face w wo contrast. We did get records (imaging) from Field Contractor-Dr. Sidney Faustin's office that we didn't have & will scan them into her chart. She voiced understanding. * Telephone Encounter - Marianna Dumont - 04/15/2024 3:[address] Sidney Faustin's records. * Telephone Encounter - Marianna Dumont - 04/12/2024 10:03 AM CDT Maribeth from Field Contractor-Dr. Sidney Faustin's office returned my call. She will send us all pertaining records. * Telephone Encounter - Marianna Dumont - 04/12/2024 9:51 AM CDT Noted. Nabila/Noelle at [facility] MRI Dept is aware of Dr. RAMIREZ Message & voiced understanding. She states then all MRI order's will remain w & w/o contrast. She knows I corrected the MRI Lumbar order to w & w/o contrast & this order was faxed to Nabila at [facility] MRI Dept. . Nabila says she [...] - 04/12/2024 8:34 AM CDT Noelle from [facility]'s MRI Dept wants to know is [...] - 04/11/2024 2:31 PM CDT Noelle from [facility] MRI Dept is aware of Dr. Nabila [...] records/imaging pt said she had from her Field Contractor-Dr. Sidney Faustin #[id number] for them to return my call. His [...] 04-16-24 appt.. She voiced understanding. Noelle from [facility] MRI Dept is aware of all this & to let her know. [id number] Patient cbn:#[phone] [facility] is aware Face MRI Denied & pt is scheduled for other MRI'S as above. documented in this encounter Plan of Treatment Not on file documented as of this encounter Visit Diagnoses Not on filedocumented in this encounter Care Teams Supervisor Poultry Hatchery Relationship Specialty Start Date End Date Nabila King MD [address] [place] [address] [address] [place] [address] PCP - General Internal Medicine 12/16/20 Christine Kendall MD Surgeon Ophthalmology 12/13/20 Sita Magana MD [address] [facility] [address] [place] [address] Consulting Physician Internal Medicine 12/13/20 Regulo Pandey MD [address] [facility] [address] [place] [address] Referring Physician Cardiovascular Disease 12/16/20 Gigi Méndez MD [address] [facility] [address] [place] [address] Referring Physician Cardiology 02/18/21 Bc Martinez MD [address] [place] [address] Referring Physician Cardiology 08/22/23 Martin Correa MD [address] [place] [address] Consulting Physician Cardiothoracic Surgery 08/22/23 documented as of this encounter
--- OUTSIDE RECORDS SUMMARY | 2024-08-09 20:23 | XMS_ITS | Encounter Summary ---
Author Organization [facility] Healthcare Address [address] [place] [address] Care Team Providers Care Collar Runner Name Role Phone Christine Kendall MD Unavailable [phone] Sita Magana MD Unavailable [phone] Nabila King MD Primary Care Provider + [phone] Regulo Pandey MD Unavailable Gigi Méndez MD Unavailable [phone] Bc Martinez MD Unavailable [phone] Martin Correa MD Unavailable [phone] Reason for Visit * Reason Onset Date Comments Insurance 04/16/2024 MRI 04/16/2024 Encounter Details Date Type Department Care Team (Late st Contact Info) Description 04/16/2024 Telephone [facility] Medical Group [facility] [address] [place] [phone] Nabila King MD [address] [place] [address] Insurance; MRI Social History Tobacco Use Types [...] on file Legal Sex Female 8:[address] MAN Gender Identity Not on file Sexual [...] too. Pt is now scheduled to see MANAGER INSTALLATION Imelda Gaytan on 06-13-24. Dr. Nabila King [...] Face. She states she is seeing her Integrated Program Teacher-Dr. Martin in [place], [place] on Monday05-06-24 & he is doing x-ray's. She is aware of Dr. Nabila King telephone message below already & states she has been doingmyofascial therapy with the massage therapist at her Chiropractor's () office in [place], [place]. She states she wants to hold [...] Tried to schedule MRI's for pt at [facility]' MRI scheduling #[phone],but they needed the new order's with added dx's/auth.# faxed over to them first at . Once they get the order's since pt has pacemaker they have to email the MRI Dept,so they can give appt & then [facility] will contact pt to set up MRI's. They do know pt cannot do 05-13-24 & 05-14-24. She voiced understanding. New MRI order's with added dx's/auth.# has been faxed to [facility]' ( ). . * Telephone Encounter - Vicenta Melo RN - 04/19/2024 2:19 PM CDT Images from the original note were not included. Nabila King MD to [facility] Im/Fm Staff Pool 04/19/24 2:10 PM TELL HER I THINK SHE WOULD REALLY BENEFIT FROM physical therapy with a very special myofascial therapist down in [place] = Dr. Elkins, [facility], PhD. [place] [facility] [address] [phone] Called patient and notified her of above [...] Expedited Appeal started. All pertaining records including officer lieutenant records & MRI Cervical Spine w wo [...] April 18, 2024 Nabila King MD to [facility] Im/Fm Staff Pool 04/18/24 10:11 AM Inform her she has no spinal stenosis thank Goodness She has a really bad foraminal stenosis. She would benefit from physical therapy and she would benefit from pain management. I would recommend [facility] for pain management. [facility] physical therapy for physical therapy is available [...] know what the next step is. CBN: #[phone] * Telephone Encounter - Elizabeth Whitaker - 04/16/2024 12:57 PM CDT Patient calling asking for Marianna, states that she called [facility] on her MRI's. States they put a schwab on it. Waiting to hear back from insurance. [phone] documented in this encounter Plan of Treatment Not on file documented as of this encounter Visit Diagnoses Not on filedocumented in this encounter Care Teams Collar Runner Relationship Specialty Start Date End Date Nabila King MD [address] [place] [address] [address] [place] [address] PCP - General Internal Medicine 12/16/20 Christine Kendall MD Surgeon Ophthalmology 12/13/20 Sita Magana MD [address] [place] [address] [address] [place] [address] Consulting Physician Internal Medicine 12/13/20 Regulo Pandey MD [address] [place] [address] [address] [place] [address] Referring Physician Cardiovascular Disease 12/16/20 Gigi Méndez MD [address] [place] [address] [address] [place] [address] Referring Physician Cardiology 02/18/21 Bc Martinez MD [address] [place] [address] Referring Physician Cardiology 08/22/23 Martin Correa MD [address] [place] [address] Consulting Physician Cardiothoracic Surgery 08/22/23 documented as of this encounter
--- OUTSIDE RECORDS SUMMARY | 2024-08-09 20:24 | XMS_ITS | Encounter Summary ---
Author Organization [facility] Healthcare Address [address] [place] [address] Care Team Providers Care Cake Knocker Name Role Phone Christine Kendall MD Unavailable [phone] Sita Magana MD Unavailable [phone] Nabila King MD Primary Care Provider + [phone] Regulo Pandey MD Unavailable Gigi Méndez MD Unavailable [phone] Bc Martinez MD Unavailable [phone] Martin Correa MD Unavailable [phone] Encounter Details Date Type Department Care Team (Late st Contact Info) Description 09/12/2023 Orders Only [facility] [address] [place] [phone] Luciano King MD [address] [place] [address] Social History Tobacco Use Types Packs/Day Years [...] on file 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 Gender Identity Not on file Sexual [...] on filedocumented in this encounter Care Teams Cake Knocker Relationship Specialty Start Date End Date Nabila King MD [address] [facility] [address] [place] [address] PCP - General Internal Medicine 12/16/20 Christine Kendall MD Surgeon Ophthalmology 12/13/20 Sita Magana MD [address] [facility] [address] [place] [address] Consulting Physician Internal Medicine 12/13/20 Regulo Pandey MD [address] [place] [address] Referring Physician Cardiovascular Disease 12/16/20 Gigi Méndez MD [address] [place] [address] Referring Physician Cardiology 02/18/21 Bc Martinez MD [address] [place] [address] Referring Physician Cardiology 08/22/23 Martin Correa MD [address] [place] [address] Consulting Physician Cardiothoracic Surgery 08/22/23 documented as of this encounter
--- OUTSIDE RECORDS SUMMARY | 2024-08-09 20:24 | XMS_ITS | Encounter Summary ---
Author Organization [facility] Medical Group Address [address] [facility] [address] [place] [address] Care Team Providers Care Manager Relationship Name Role Phone Christine Kendall MD Unavailable [phone] Sita Magana MD Unavailable [phone] Nabila King MD Primary Care Provider + [phone] Regulo Pandey MD Unavailable Gigi Méndez MD Unavailable [phone] Bc Martinez MD Unavailable [phone] Reason for Visit * Reason Onset Date Comments Lab Results 04/20/2023 Encounter Details Date Type Department Care Team (Late st Contact Info) Description 04/20/2023 Telephone [facility] [address] [place] [phone] Nabila King MD [address] [place] [address] Lab Results Social History Tobacco Use Types [...] on file 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 Gender Identity Not on file [...] on filedocumented in this encounter Care Teams Manager Relationship Relationship Specialty Start Date End Date Nabila King MD [address] [facility] [address] [place] [phone] PCP - General Internal Medicine 12/16/20 Christine Kendall MD Surgeon Ophthalmology 12/13/20 Sita Magana MD [address] [facility] [address] [place] [address] Consulting Physician Internal Medicine 12/13/20 Regulo Pandey MD [address] [facility] [address] [place] [address] Referring Physician Cardiovascular Disease 12/16/20 Gigi Méndez MD [address] [facility] [address] [place] [address] Referring Physician Cardiology 02/18/21 Bc Martinez MD [address] [place] [address] Consulting Physician Cardiology 10/22/21 08/21/23 documented as of this encounter
--- OUTSIDE RECORDS SUMMARY | 2024-08-09 20:24 | XMS_ITS | Encounter Summary ---
Author Organization [facility] Healthcare Address [address] [place] [address] Care Team Providers Care Head Animal Keeper Name Role Phone Christine Kendall MD Unavailable [phone] Sita Magana MD Unavailable [phone] Nabila King MD Primary Care Provider + [phone] Regulo Pandey MD Unavailable Gigi Méndez MD Unavailable [phone] Bc Martinez MD Unavailable [phone] Martin Correa MD Unavailable [phone] Encounter Details Date Type Department Care Team (Late st Contact Info) Description 08/22/2023 Orders Only Cardiovascular and Thoracic Surgery [address] [facility] [address] [place] [address] Haily Go, JASON [address] [facility] [address] [place] [address] Nonrheumatic aortic insufficiency with aortic stenosis (Primary [...] file Legal Sex Female 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 Gender Identity Not on file Sexual Orientation Not on file 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 Not on file documented as of this encounter Plan of Treatment Not on file documented as of this encounter Visit Diagnoses Diagnosis Nonrheumatic aortic insufficiency with aortic stenosis- Primary documented in this encounter Care Teams Head Animal Keeper Relationship Specialty Start Date End Date Nabila King MD [address] [facility] [facility] [address] [place] [address] PCP - General Internal Medicine 12/16/20 Christine Kendall MD Surgeon Ophthalmology 12/13/20 Sita Magana MD [address] [facility] [place] [address] Consulting Physician Internal Medicine 12/13/20 Regulo Pandey MD [address] [facility] [place] [address] Referring Physician Cardiovascular Disease 12/16/20 Gigi Méndez MD [address] [facility] [place] [address] Referring Physician Cardiology 02/18/21 Bc Martinez MD [address] [place] [address] Referring Physician Cardiology 08/22/23 Martin Correa MD [address] [place] [address] Consulting Physician Cardiothoracic Surgery 08/22/23 documented as of this encounter
--- OUTSIDE RECORDS SUMMARY | 2024-08-09 20:24 | XMS_ITS | Encounter Summary ---
Author Organization [facility] Address [address] [place] [address] Phone Care Team Providers Care Agents' Records Clerk Name Role Phone Christine Kendall MD Unavailable [phone] Sita Magana MD Unavailable [phone] Nabila King MD Primary Care Provider [phone] Regulo Pandey MD Unavailable Gigi Méndez MD Unavailable [phone] Bc Martinez MD Unavailable [phone] Reason for Referral * Diagnostic Imaging (Routine) - Closed Specialty Diagnoses / Procedures Referred By Contac t Referred To Contact Diagnoses Low-tension glaucoma, bilateral, severe stage Procedures OCT, Optic Nerve - OU - Both Eyes Christine Kendall MD [address] [facility] DEPT OPHTHALMOLOGY, [facility] [address] [place] [address] Phone: tel: fax: [facility] [place] (All Locations) Referral ID Status Reason Start Date Expiration Date Visits Re quested Visits Authorized [id number] Closed 05/08/2023 06/06/2024 1 1 * Diagnostic Imaging (Routine) - Closed Specialty Diagnoses / Procedures Referred By Contac t Referred To Contact Diagnoses Low-tension glaucoma, bilateral, severe stage Procedures Dyer Visual Field - OU - Both Eyes Christine Kendall MD [address] DEPT OPHTHALMOLOGY, [facility] [address] [place] [address] Phone: tel: fax: [facility] [place] (All Locations) Referral ID Status Reason Start Date Expiration Date Visits Re quested Visits Authorized [id number] Closed 05/08/2023 06/06/2024 1 1 Reason for Visit * Diagnostic Imaging (Routine) - Closed Specialty Diagnoses / Procedures Referred By Contclaudia t Referred To Contact Diagnoses Low-tension glaucoma, bilateral, severe stage Procedures Dyer Visual Field - OU - Both Eyes Christine Kendall MD [address] DE[address] OPHTHALMOLOGY, [address] [address] Phone: tel: fax: [facility] [place] (All Locations) Referral ID Status Reason Start Date Expiration Date Visits Re quested Visits Authorized [id number] Closed 05/08/2023 06/06/2024 1 1 Encounter Details Date Type Department Care Team (Late st Contact Info) Description 05/08/2023 9:30 AM CDT Imaging Exam [facility] [place] Ophthalmology 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 [address] [place] [address] PCP - General Internal Medicine 12/16/20 Christine Kendall MD Surgeon Ophthalmology 12/13/20 Sita Magana MD [address] [facility] [address] [place] [address] Consulting Physician Internal Medicine 12/13/20 Regulo Pandey MD [address] [facility] [address] [place] [address] Referring Physician Cardiovascular Disease 12/16/20 Gigi Méndez MD [address] [facility] [address] [place] [address] Referring Physician Cardiology 02/18/21 Bc Martinez MD [address] [place] [address] Consulting Physician Cardiology 10/22/21 08/21/23 documented as of this encounter
--- OUTSIDE RECORDS SUMMARY | 2024-08-09 20:24 | XMS_ITS | Encounter Summary ---
Author Organization [facility] Healthcare Address [address] [place] [address] Care Team Providers Care Ticket Attendant Name Role Phone Christine Kendall MD Unavailable [phone] Sita Magana MD Unavailable [phone] Nabila King MD Primary Care Provider [phone] Regulo Pandey MD Unavailable Gigi Méndez MD Unavailable [phone] Bc Martinez MD Unavailable [phone] Martin Correa MD Unavailable [phone] NiviaGildardo bowen Si, MD Unavailable Encounter Details Date Type Department Care Team (Late st Contact Info) Description 02/09/2024 Orders Only [facility] Medical Group [facility] [address] [place] [address] Scanning, Provider Social History Tobacco Use [...] on file Legal 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 Gender Identity Not on file Sexual [...] on filedocumented in this encounter Care Teams Ticket Attendant Relationship Specialty Start Date End Date Nabila King MD [address] [facility] [address] [place] [address] PCP - General Internal Medicine 12/16/20 Christine Kendall MD Surgeon Ophthalmology 12/13/20 Sita Magana MD [address] [facility] [address] [place] [address] Consulting Physician Internal Medicine 12/13/20 Regulo Pandey MD [address] [place] [address] [address] [place] [address] Referring Physician Cardiovascular Disease 12/16/20 Gigi Méndez MD [address] [place] [address] [place] [address] Referring Physician Cardiology 02/18/21 Bc Martinez MD [address] [place] [address] Referring Physician Cardiology 08/22/23 Martin Correa MD [address] [place], [place] [address] Consulting Physician Cardiothoracic Surgery 08/22/23 Nivia, Gildardo Gomez MD [address] [facility] [address] [address] Consulting Physician Neurology 07/09/24 documented as of this encounter
--- OUTSIDE RECORDS SUMMARY | 2024-08-09 20:24 | XMS_ITS | Encounter Summary ---
Author Organization [facility] Address [address] [place] [address] Phone Care Team Providers Care Treasury Director Name Role Phone Christine Kendall MD Unavailable [phone] Sita Magana MD Unavailable [phone] Nabila King MD Primary Care Provider [phone]- [phone] Regulo Pandey MD Unavailable Gigi Méndez MD Unavailable [phone] Bc Martinez MD Unavailable [phone] Martin Correa MD Unavailable [phone] Reason for Referral * Diagnostic Imaging (Routine) - Closed Specialty Diagnoses / Procedures Referred By John bojorquez Referred To Contact Diagnoses Low-tension glaucoma, bilateral, severe stage Procedures Dyer Visual Field - OU - Both Eyes Christine Kendall MD [address] [facility] DEPT OPHTHALMOLOGY, [address] [address] Phone: tel: fax: [facility] (All Locations) Referral ID Status Reason Start Date Expiration Date Visits Re quested Visits Authorized [id number] Closed 10/24/2023 11/22/2024 1 1 STITCH ZIPPER SETTER Reason for Visit * Diagnostic Imaging (Routine) - Closed Specialty Diagnoses / Procedures Referred By Contclaudia t Referred To Contact Diagnoses Low-tension glaucoma, bilateral, severe stage Procedures Dyer Visual Field - OU - Both Eyes Christine Kendall MD [address] [facility] DEPT OPHTHALMOLOGY, [address] [place] [address] Phone: tel: fax: [facility] (All Locations) Referral ID Status Reason Start Date Expiration Date Visits Re quested Visits Authorized [id number] Closed 10/24/2023 11/22/2024 1 1 Encounter Details Date Type Department Care Team (Late st Contact Info) Description 10/30/2023 9:30 AM CDT Imaging Exam [facility] Ophthalmology [address] 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 Gender Identity Not on file Sexual [...] Primary documented in this encounter Care Teams Treasury Director Relationship Specialty Start Date End Date Nabila King MD [address] [place] [address] [address] [place] [address] PCP - General Internal Medicine 12/16/20 Christine Kendall MD Surgeon Ophthalmology 12/13/20 Sita [facility] [address] [place] [address] Consulting Physician Internal Medicine 12/13/20 Regulo Pandey MD [address] [place] [address] [address] [place] [address] Referring Physician Cardiovascular Disease 12/16/20 Gigi Méndez MD [address] [place] [address] [address] [place] [address] Referring Physician Cardiology 02/18/21 Bc Martinez MD [address] [place] [address] Referring Physician Cardiology 08/22/23 Martin Correa MD [address] [place] [address] Consulting Physician Cardiothoracic Surgery 08/22/23 documented as of this encounter
--- OUTSIDE RECORDS SUMMARY | 2024-08-09 20:24 | XMS_ITS | Encounter Summary ---
Author Organization [facility] Address [address] [place] [address] Care Team Providers Care Gamemaster Name Role Phone Christine Kendall MD Unavailable [phone] Sita Magana MD Unavailable [phone] Nabila King MD Primary Care Provider + [phone] Regulo Pandey MD Unavailable Gigi Méndez MD Unavailable [phone] Bc Martinez MD Unavailable [phone] Martin Correa MD Unavailable [phone] Reason for Visit * Reason Comments Cardiac Valve Problem * Consultation (Routine) - Closed Specialty Diagnoses / Procedures Referred By Contac t Referred To Contact Cardiothoracic Surgery Diagnoses Aortic valve insufficiency, etiology of cardiac valve disease unspecified Bc Martinez MD [address] [place] [address] Phone: tel: fax: [facility] [address] [place] [address] Phone: tel: fax: Referral ID Status Reason Start Date Expiration Date V isits Requested Visits Authorized [id number] Closed Specialty Services Required 08/22/2023 09/20/2024 1 1 Encounter Details Date Type Department Care Team (Latest Contact Info) Description 09/06/2023 11:20 AM FOOD BEVERAGE SERVER Office Visit Cardiovascular and Thoracic Surgery [address] [place] [address] [address] [place] [address] Martin Correa MD [address] [facility] [address] [place] [address] Nonrheumatic mitral valve regurgitation (Primary Dx); Aortic [...] Legal Sex Female 8:14 PM FOOD BEVERAGE SERVER Gender Identity Not on file Sexual Orientation Not on file 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 Not on file documented as of this encounter Last Filed Vital Signs Vital Sign Reading Time Taken Comments Blood Pressure 164/80 09/06/2023 12:09 PM FOOD BEVERAGE SERVER Pulse 80 09/06/2023 12:09 PM FOOD BEVERAGE SERVER Temperature - - Respiratory Rate 18 09/06/2023 12:09 PM FOOD BEVERAGE SERVER Oxygen Saturation - - Inhaled Oxygen Concentration - - Weight 55.3 kg (122 lb) 09/06/2023 12:09 PM FOOD BEVERAGE SERVER Height 162.6 cm (5' 4 ) 09/06/2023 12:09 PM FOOD BEVERAGE SERVER Body Mass Index 20.94 09/06/2023 12:09 PM FOOD BEVERAGE SERVER documented in this encounter Patient Instructions * Patient Instructions* Lalita Leone NP - 09/06/2023 11:20 AM FOOD BEVERAGE SERVER No surgery necessary at this time. Follow up with your plastic jig and fixture builder as scheduled. BEVERAGE SERVER documented in this encounter Progress Notes * [...] Unknown 09/10/2021 Clarithromycin Hives Mastisol adhesive [gum tppeej-bzvyyl-ugnb-alcohol] Hives and Rash 03/18/2022 Metronidazole Hives Other [...] Laterality Date ABLATION OF AFIB FLUTTER 02/18/2021 [facility] CARDIAC PACEMAKER PLACEMENT 10/2021 COLONOSCOPY 01/08/2010 [...] impression and plan. LEONEL Tatum Cardiothoracic Surgery [facility] Cosigned by Martin Correa MD at 09/07/2023 2:29 PM FOOD BEVERAGE SERVER BEVERAGE SERVER BEVERAGE SERVER Associated attestation - Martin Correa MD - 09/07/2023 2:29 PM FOOD BEVERAGE SERVER I have seen and examined the patient, [...] King, who may consider referral to a arts and humanities council director. All of the patient's and her daughter's questions were answered to their apparent satisfaction. Martin Correa MD Cardiothoracic Surgery [facility] documented in this encounter Plan of Treatment Not on file documented as of this encounter Visit Diagnoses Diagnosis Nonrheumatic mitral valve regurgitation- Primary Aortic valve insufficiency, etiology of cardiac valve disease unspecified Nonrheumatic tricuspid valve regurgitation documented in this encounter Orders Outpatient Referral Count Last Ordered Date Fir st Ordered Date AMB REFERRAL TO CARDIOTHORACIC SURGERY 1 documented in this encounter Care Teams Gamemaster Relationship Specialty Start Date End Date Nabila King MD [address] [facility] [address] [place] [address] PCP - General Internal Medicine 12/16/20 Christine Kendall MD Surgeon Ophthalmology 12/13/20 Sita Magana MD [address] [facility] [address] [place] [address] Consulting Physician Internal Medicine 12/13/20 Regulo Pandey MD [address] [facility] [address] [place] [address] Referring Physician Cardiovascular Disease 12/16/20 Gigi Méndez MD [address] [facility] [address] [place] [address] Referring Physician Cardiology 02/18/21 Bc Martinez MD [address] [place] [address] Referring Physician Cardiology 08/22/23 Martin Correa MD [address] [place] [address] Consulting Physician Cardiothoracic Surgery 08/22/23 documented as of this encounter
--- OUTSIDE RECORDS SUMMARY | 2024-08-09 20:24 | XMS_ITS | Encounter Summary ---
Author Organization [facility] Address [address] [place] [address] Care Team Providers Care Patient Portal Concierge Name Role Phone Christine Kendall MD Unavailable [phone] Sita Magana MD Unavailable [phone] Nabila King MD Primary Care Provider [phone] Regulo Pandey MD Unavailable Gigi Méndez MD Unavailable [phone] Bc Martinez MD Unavailable [phone] Encounter Details Date Type Department Care Team (Latest Contact Info) Description 06/26/2023 - 06/26/2023 11:59 PM PILING SETTER Hospital Encounter [facility] - Imaging [phone] Discharge Disposition: Discharge to home or self [...] on file Legal Sex Female 8:14 PM PILING SETTER Gender Identity Not on file Sexual [...] OF OUTSIDE FILMS Routine 06/26/2023 12:00 AM PILING SETTER documented in this encounter Results * US Outside Reference (06/26/2023 12:00 AM PILING SETTER) Narrative RAD_PACS_OUTSIDE_FILM_[facility] - 08/24/2023 9:08 AM PILING SETTER This order has been auto-finalized and does not contain a result. us Provider Transcribed Order IMG US PROCEDURES Fin al Result RAD_PACS_OUTSIDE_FILM_[facility] documented in this encounter Visit Diagnoses Not on filedocumented in this encounter Care Teams Patient Portal Concierge Relationship Specialty Start Date End Date Nabila King MD [address] [facility] [address] [place] [address] PCP - General Internal Medicine 12/16/20 Christine Kendall MD Surgeon Ophthalmology 12/13/20 Sita Magana MD [address] [place] [address] [address] [place] [address] Consulting Physician Internal Medicine 12/13/20 Regulo Pandey MD [address] [place] [address] [address] [place] [address] Referring Physician Cardiovascular Disease 12/16/20 Gigi Méndez MD [address] [place] [address] [address] [place] [address] Referring Physician Cardiology 02/18/21 Bc Martinez MD [address] [place] [address] Consulting Physician Cardiology 10/22/21 08/21/23 documented as of this encounter
--- OUTSIDE RECORDS SUMMARY | 2024-08-09 20:24 | XMS_ITS | Encounter Summary ---
Author Organization [facility] Address [address] [place] [address] Care Team Providers Care Boxing Trainer Name Role Phone Christine Kendall MD Unavailable [phone] Sita Magana MD Unavailable [phone] Nabila King MD Primary Care Provider + [phone] Regulo Pandey MD Unavailable Gigi Méndez MD Unavailable [phone] Bc Martinez MD Unavailable [phone] Martin Correa MD Unavailable [phone] Reason for Referral * MRI/CAT/PET Scan (Routine) - Closed Specialty Diagnoses / Procedures Referred By Contac t Referred To Contact Diagnoses Thoracic radiculopathy Vertebrobasilar artery syndrome Procedures MRI Thoracic Spine W WO Contrast MRI Thoracic Spine W WO Contrast Nabila King MD [address] [place] [id number] Phone: tel: fax: [facility] OP [address] [place] [address] Phone: tel: fax: Referral ID Status Reason Start Date Expiration Date Visits Re quested Visits Authorized [id number] Closed 04/19/2024 10/19/2024 1 1 * MRI/CAT/PET Scan (Routine) - Closed Specialty Diagnoses / Procedures Referred By Contac t Referred To Contact Diagnoses Periodontal disease Dental infection Cervical radiculopathy Vertebrobasilar artery syndrome Procedures MRI Face W WO Contrast MRI Face W WO Contrast MRI Face W WO Contrast Nabila King MD [address] [place] [address] Phone: tel: fax: [facility] [address] [place] [address] Phone: tel: fax: Referral ID Status Reason Start Date Expiration Date Visits Re quested Visits Authorized [id number] Closed 04/27/2024 10/25/2024 1 1 * MRI/CAT/PET Scan (Routine) - Closed Specialty Diagnoses / Procedures Referred By Contac t Referred To Contact Diagnoses 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 Lumbar radiculopathy Procedures MRI Lumbar Spine W WO Contrast MRI Lumbar Spine W WO Contrast MRI Lumbar Spine W WO Contrast Nabila King MD [address] [place] [address] Phone: tel: fax: [facility] [address] [place] [address] Phone: tel: fax: Referral ID Status Reason Start Date Expiration Date Visits Re quested Visits Authorized [id number] Closed 04/19/2024 10/19/2024 1 1 * MRI/CAT/PET Scan (Routine) - Closed Specialty Diagnoses / Procedures Referred By Contac t Referred To Contact Diagnoses Cervical radiculopathy Vertebrobasilar artery syndrome Procedures MRI Cervical Spine W WO Contrast Nabila King MD [address] [place] [address] Phone: tel: fax: External Order Referral ID Status Reason Start Date Expiration Date Visits Re quested Visits Authorized [id number] Closed 04/10/2024 10/07/2024 1 1 * Diagnostic Imaging (Routine) - Closed Specialty Diagnoses / Procedures Referred By Contac t Referred To Contact Diagnoses Cervical radiculopathy Thoracic radiculopathy Procedures XR Spine Lumbar 2 or 3 Views Nabila King MD [address] [place] [address] Phone: tel: fax: [facility] [address] [place] [address] Referral ID Status Reason Start Date Expiration Date Visits Re quested Visits Authorized [id number] Closed 03/06/2024 04/05/2025 1 1 * Diagnostic Imaging (Routine) - Closed Specialty Diagnoses / Procedures Referred By Contac t Referred To Contact Diagnoses Thoracic radiculopathy Procedures XR Spine Thoracic 3 Vw Nabila King MD [address] [place] [address] Phone: tel: fax: [facility] [address] [place] [address] Referral ID Status Reason Start Date Expiration Date Visits Re quested Visits Authorized [id number] Closed 03/06/2024 04/05/2025 1 1 Reason for Visit * Reason Comments Follow-up Encounter Details Date Type Department Care Team (Late st Contact Info) Description 03/06/2024 8:15 AM CDT Office Visit [facility] [address] [address] Nabila King MD [address] [place] [address] Periodontal disease (Primary Dx); Dental infection; Chronic [...] on file 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 Gender Identity Not on file Sexual [...] Body Mass Index 21.28 09/06/2023 12:09 PM NUCLEAR WORKER TECHNICIAN documented in this encounter Patient Instructions * [...] Celestial seasonings or chamomile tea available at [facility] Fill the cup with 1 scoop of [...] daily For the bone health Vitamin D3 78032 units once weekly The MEDICATION LIST that [...] Antibiotics) Unknown Clarithromycin Hives Mastisol Adhesive [Gum Hjngxj-Earcmc-Ijwu-Alcohol] Hives and Rash Pt reports this is [...] Consulting Physician (Cardiothoracic Surgery) Primary Pharm[facility]/DME suppliers: [facility] - [place], [place] - [address] [place] [id number] Please inform us if you have a [...] of her medical problems required 62 minute pbxt-mm-zpdy office visit today 1. Periodontal disease 2. Dental infection She was seen along her history periodontal disease. Recently developed an infection in her left 1stincisor. She was to the casting machine operator helper with the tooth pulled and a bone [...] (HCC) I50.33 12. Sick sinus syndrome (CMS/HCC) ([facility]) I49.5 documented in this encounter Miscellaneous Notes [...] AM CDT Performed at: ??01 - [facility] [address] [place], [place] ??[id number] Grand Jury Deputy Sheriff: Darek Farrell PhD, Phone: ??[phone] Nabila King MD LAB BLOOD ORDERABLES Final [...] anterolisthesis of L4 on L5. ??There is nrko-br-duipidrj L2-L3 and L4-S1 degenerative disc disease. ?? Inferior lumbar facet osteoarthritis is present. IMPRESSION: Mild C3-C5 and moderate C5-C7 degenerative disc disease with multilevel cervical facet osteoarthritis and bilateral cervical foraminal impingement. Mild multilevel thoracic degenerative disc disease. Dwwt-hz-hswwfxsw L2-L3 and L4-S1 degenerative disc disease with grade 1 anterolisthesis of L4 on L5 and inferior lumbar facet osteoarthritis. THIS IS AN ELECTRONICALLY VERIFIED FINAL REPORT 03/06/2024 7:06 PM - Electronically signed by ??Gigi Aguilar M.D. MF: [email or web address] D: ??03/06/2024 7:06 PM T: ??03/06/2024 7:06 PM Report ID: [id number] Reading Location: ??[id number] Procedure Note Gigi Aguilar MD - 03/06/2024 [...] 1 anterolisthesis of L4on L5. There is tvvr-sf-wmfbcjbz L2-L3 and L4-S1 degenerative disc disease. Inferior lumbar facet osteoarthritis is present. IMPRESSION: Mild C3-C5 and moderate C5-C7 degenerative disc disease with multilevel cervical facet osteoarthritis and bilateral cervical foraminalimpingement. Mild multilevel thoracic degenerative disc disease. Khsq-ki-efafakxp L2-L3 and L4-S1 degenerative disc disease with grade 1 anterolisthesis of L4 on L5 and inferior lumbar facet osteoarthritis. THIS IS AN ELECTRONICALLY VERIFIED FINAL REPORT 03/06/2024 7:06 PM - Electronically signed by Gigi Aguilar M.D. MF: [email or web address] Report ID: [id number] Reading Location: [place] [address] us Nabila King MD IMG XR PROCEDURES [...] anterolisthesis of L4 on L5. ??There is pymo-st-doovmmrs L2-L3 and L4-S1 degenerative disc disease. ?? Inferior lumbar facet osteoarthritis is present. IMPRESSION: Mild C3-C5 and moderate C5-C7 degenerative disc disease with multilevel cervical facet osteoarthritis and bilateral cervical foraminal impingement. Mild multilevel thoracic degenerative disc disease. Jjbk-vs-pgdpmxku L2-L3 and L4-S1 degenerative disc disease with grade 1 anterolisthesis of L4 on L5 and inferior lumbar facet osteoarthritis. THIS IS AN ELECTRONICALLY VERIFIED FINAL REPORT 03/06/2024 7:06 PM - Electronically signed by ??Gigi Aguilar M.D. MF: [email or web address] D: ??03/06/2024 7:06 PM T: ??03/06/2024 7:06 PM Report ID: [id number] Reading Location: ??[id number] Procedure Note Gigi Aguilar MD - 03/06/2024 [...] 1 anterolisthesis of L4on L5. There is gjls-xv-vevzmxis L2-L3 and L4-S1 degenerative disc disease. Inferior lumbar facet osteoarthritis is present. IMPRESSION: Mild C3-C5 and moderate C5-C7 degenerative disc disease with multilevel cervical facet osteoarthritis and bilateral cervical foraminalimpingement. Mild multilevel thoracic degenerative disc disease. Jhxt-hw-ldjvmtfu L2-L3 and L4-S1 degenerative disc disease with grade 1 anterolisthesis of L4 on L5 and inferior lumbar facet osteoarthritis. THIS IS AN ELECTRONICALLY VERIFIED FINAL REPORT 03/06/2024 7:06 PM - Electronically signed by Gigi Aguilar M.D. MF: [email or web address] Report ID: [id number] Reading Location: [place] [address] us Nabila King MD IMG XR PROCEDURES [...] anterolisthesis of L4 on L5. ??There is ifrc-ti-zehbxpjq L2-L3 and L4-S1 degenerative disc disease. ?? Inferior lumbar facet osteoarthritis is present. IMPRESSION: Mild C3-C5 and moderate C5-C7 degenerative disc disease with multilevel cervical facet osteoarthritis and bilateral cervical foraminal impingement. Mild multilevel thoracic degenerative disc disease. Etrw-qy-ogssscbq L2-L3 and L4-S1 degenerative disc disease with grade 1 anterolisthesis of L4 on L5 and inferior lumbar facet osteoarthritis. THIS IS AN ELECTRONICALLY VERIFIED FINAL REPORT 03/06/2024 7:06 PM - Electronically signed by ??Gigi Aguilar M.D. MF: JAMIL D: ??03/06/2024 7:06 PM T: ??03/06/2024 7:06 PM Report ID: [id number] Reading Location: ??[id number] Procedure Note Gigi Aguilar MD - 03/06/2024 [...] 1 anterolisthesis of L4on L5. There is autg-pv-nomorheg L2-L3 and L4-S1 degenerative disc disease. Inferior lumbar facet osteoarthritis is present. IMPRESSION: Mild C3-C5 and moderate C5-C7 degenerative disc disease with multilevel cervical facet osteoarthritis and bilateral cervical foraminalimpingement. Mild multilevel thoracic degenerative disc disease. Xkjb-fb-wrhywijp L2-L3 and L4-S1 degenerative disc disease with grade 1 anterolisthesis of L4 on L5 and inferior lumbar facet osteoarthritis. THIS IS AN ELECTRONICALLY VERIFIED FINAL REPORT 03/06/2024 7:06 PM - Electronically signed by Gigi Aguilar M.D. MF: [email or web address] Report ID: [id number] Reading Location: [place] [address] Nabila King MD IMG XR PROCEDURES Final [...] 03/06/2024 added in this encounter Care Teams Boxing Trainer Relationship Specialty Start Date End Date Nabila King MD [address] [facility] [address] [place] [address] PCP - General Internal Medicine 12/16/20 Christine Kendall MD Surgeon Ophthalmology 12/13/20 Sita Magana MD [address] [facility] [address] [place] [address] Consulting Physician Internal Medicine 12/13/20 Regulo Pandey MD [address] [place] [address] [address] [place] [address] Referring Physician Cardiovascular Disease 12/16/20 Gigi Méndez MD [address] [place] [address] [address] [place] [address] Referring Physician Cardiology 02/18/21 Bc Martinez MD [address] [place] [address] Referring Physician Cardiology 08/22/23 Martin Correa MD [address] [place] [address] Consulting Physician Cardiothoracic Surgery 08/22/23 documented as of this encounter
--- OUTSIDE RECORDS SUMMARY | 2024-08-09 20:24 | XMS_ITS | Encounter Summary ---
Author Organization [facility] Address [address] [place] [address] Phone Care Team Providers Care Hemmer Lockstitch Name Role Phone Christine Kendall MD Unavailable [phone] Sita Magana MD Unavailable [phone] Nabila King MD Primary Care Provider [phone] Regulo Pandey MD Unavailable Gigi Méndez MD Unavailable [phone] Bc Martinez MD Unavailable [phone] Reason for Visit * Reason Comments Glaucoma Encounter Details Date Type Department Care Team (Late st Contact Info) Description 05/08/2023 10:00 AM CDT Office Visit [facility] Ophthalmology [address] 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 [address] [place] [address] Consulting Physician Internal Medicine 12/13/20 Regulo Pandey MD [address] [place] [address] [address] [place] [address] Referring Physician Cardiovascular Disease 12/16/20 Gigi Méndez MD [address] [place] [address] [address] [place] [address] Referring Physician Cardiology 02/18/21 Bc Martinez MD [address] [place] [address] Consulting Physician Cardiology 10/22/21 08/21/23 documented as of this encounter
--- OUTSIDE RECORDS SUMMARY | 2024-08-09 20:24 | XMS_ITS | Encounter Summary ---
Author Organization [facility] Healthcare Address [address] [place] [address] Care Team Providers Care Astronaut Mission Specialist Name Role Phone Christine Kendall MD Unavailable [phone] Sita Magana MD Unavailable [phone] Nabila King MD Primary Care Provider [phone] Regulo Pandey MD Unavailable Gigi Méndez MD Unavailable [phone] Bc Martinez MD Unavailable [phone] Encounter Details Date Type Department Care Team (Late st Contact Info) Description 07/25/2023 Orders Only [facility] [address] [place] [address] Scanning, Provider Social History Tobacco [...] on file 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 Gender Identity Not on file Sexual Orientation [...] on filedocumented in this encounter Care Teams Astronaut Mission Specialist Relationship Specialty Start Date End Date Nabila King MD [address] [facility] [address] [place] [address] PCP - General Internal Medicine 12/16/20 Christine Kendall MD Surgeon Ophthalmology 12/13/20 Sita Magana MD [address] [facility] [address] [place] [address] Consulting Physician Internal Medicine 12/13/20 Regulo Pandey MD [address] [facility] [address] [place] [address] Referring Physician Cardiovascular Disease 12/16/20 Gigi Méndez MD [address] [facility] [address] [place] [address] Referring Physician Cardiology 02/18/21 Bc Martinez MD [address] [place] [address] Consulting Physician Cardiology 10/22/21 08/21/23 documented as of this encounter
--- OUTSIDE RECORDS SUMMARY | 2024-08-09 20:24 | XMS_ITS | Encounter Summary ---
Author Organization [facility] Healthcare Address [address] [place] [address] Care Team Providers Care Plating Machine Operator Name Role Phone Christine Kendall MD Unavailable [phone] Sita Magana MD Unavailable [phone] Nabila King MD Primary Care Provider + [phone] Regulo Pandey MD Unavailable Gigi Méndez MD Unavailable [phone] Bc Martinez MD Unavailable [phone] Martin Correa MD Unavailable [phone] Encounter Details Date Type Department Care Team (Late st Contact Info) Description 03/07/2024 Telephone [facility] Medical Group [facility] [address] [place] [phone] Eliu Reynolds RN Social History Tobacco Use [...] on file 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 Mild multilevel thoracic degenerative disc disease. Hupt-uo-pwzhutbj L2-L3 and L4-S1 degenerative disc disease with grade 1 anterolisthesis of L4 on L5 and inferior lumbar facet osteoarthritis. documented in this encounter Plan of Treatment Not on file documented as of this encounter Visit Diagnoses Not on filedocumented in this encounter Care Teams Plating Machine Operator Relationship Specialty Start Date End Date Nabila King MD [address] [facility] [address] [address] PCP - General Internal Medicine 12/16/20 Christine Kendall MD Surgeon Ophthalmology 12/13/20 Sita Magana MD [address] [facility] [address] [place] [address] Consulting Physician Internal Medicine 12/13/20 Regulo Pandey MD [address] [place] [address] [address] [place] [address] Referring Physician Cardiovascular Disease 12/16/20 Gigi Méndez MD [address] [place] [address] [address] [place] [address] Referring Physician Cardiology 02/18/21 Bc Mratinez MD [address] [place] [address] Referring Physician Cardiology 08/22/23 Martin Correa MD [address] [place] [address] Consulting Physician Cardiothoracic Surgery 08/22/23 documented as of this encounter
--- OUTSIDE RECORDS SUMMARY | 2024-08-09 20:24 | XMS_ITS | Encounter Summary ---
Author Organization [facility] Address [address] [place] [address] Phone Care Team Providers Care Grain Sampler Name Role Phone Christine Kendall MD Unavailable [phone] Sita Magana MD Unavailable [phone] Nabila King MD Primary Care Provider [phone] Regulo Pandey MD Unavailable Gigi Méndez MD Unavailable [phone] Bc Martinez MD Unavailable [phone] Reason for Visit * Reason Comments Osteopenia * Diagnostic Imaging (Routine) - Closed Specialty Diagnoses / Procedures Referred By Contac t Referred To Contact Diagnoses Senile osteoporosis Procedures Dexa Axial Skeleton Bone Density 1 or 2 Site Nabila King MD [address] [place] [address] Phone: tel: fax: [facility] (All Locations) Referral ID Status Reason Start Date Expiration Date Visits Re quested Visits Authorized [id number] Closed 11/15/2022 12/15/2023 1 1 Encounter Details Date Type Department Care Team (Latest Contact Info) Description 03/30/2023 1:50 PM CDT Clinical Support 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 ?? Based on machine cross-calibration [...] by the International Society of Clinical Densitometry. [id number] us Nabila King MD IMG DXA PROCEDURES Final R esult documented in this encounter Visit Diagnoses Diagnosis Osteopenia of multiple sites- Primary Senile osteoporosis Postmenopause Asymptomatic postmenopausal status (age-related) (natural) documented in this encounter Care Teams Grain Sampler Relationship Specialty Start Date End Date Nabila King MD [address] [facility] [address] [address] PCP - General Internal Medicine 12/16/20 Christine Kendall MD Surgeon Ophthalmology 12/13/20 Sita Magana MD [address] [facility] [address] [place] [address] Consulting Physician Internal Medicine 12/13/20 Regulo Pandey MD [address] [place] [address] [address] [place] [address] Referring Physician Cardiovascular Disease 12/16/20 Gigi Méndez MD [address] [place] [address] [address] [place] [address] Referring Physician Cardiology 02/18/21 Bc Martinez MD [address] [place] [address] Consulting Physician Cardiology 10/22/21 08/21/23 documented as of this encounter
--- OUTSIDE RECORDS SUMMARY | 2024-08-09 20:24 | XMS_ITS | Encounter Summary ---
Author Organization [facility] Address [address] [place] [address] Phone Care Team Providers Care Platform Builder Name Role Phone Christine Kendall MD Unavailable [phone] Sita Magana MD Unavailable [phone] Nabila King MD Primary Care Provider [phone] Regulo Pandey MD Unavailable Gigi Méndez MD Unavailable [phone] Bc Martinez MD Unavailable [phone] Martin Correa MD Unavailable [phone] Reason for Visit * Reason Comments Glaucoma Encounter Details Date Type Department Care Team (Late st Contact Info) Description 10/30/2023 10:45 AM CDT Office Visit [facility] Ophthalmology [address] 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 Gender Identity Not on file Sexual Orientation [...] Normal Normal Periphery Normal Normal Care Teams Platform Builder Relationship Specialty Start Date End Date Nabila King MD [address] [facility] [address] [place] [address] PCP - General Internal Medicine 12/16/20 Christine Kendall MD Surgeon Ophthalmology 12/13/20 Sita Magana MD [address] [facility] [address] [place] [address] Consulting Physician Internal Medicine 12/13/20 Regulo Pandey MD [address] [facility] [address] [place] [address] Referring Physician Cardiovascular Disease 12/16/20 Gigi Méndez MD [address] [facility] [address] [place] [address] Referring Physician Cardiology 02/18/21 Bc Martinez MD [address] [place] [address] Referring Physician Cardiology 08/22/23 Martin Correa MD [address] [place] [address] Consulting Physician Cardiothoracic Surgery 08/22/23 documented as of this encounter
--- OUTSIDE RECORDS SUMMARY | 2024-08-09 20:24 | XMS_ITS | Encounter Summary ---
Author Organization [facility] Healthcare Address [address] [place] [address] Care Team Providers Care Punchboard Inserter Name Role Phone Christine Kendall MD Unavailable [phone] Sita Magana MD Unavailable [phone] Nabila King MD Primary Care Provider [phone] Regulo Pandey MD Unavailable Gigi Méndez MD Unavailable [phone] Bc Martinez MD Unavailable [phone] Encounter Details Date Type Department Care Team (Latest Contact Info) Description 07/25/2023 - 07/25/2023 11:59 PM SIGNAL TOWER OPERATOR Hospital Encounter [facility] - Imaging [phone] Discharge Disposition: Discharge to home or self [...] file Legal Sex Female 8:14 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 us Provider Transcribed Order IMG US PROCEDURES Fin al Result [facility] documented in this encounter Visit Diagnoses Not on filedocumented in this encounter Care Teams Punchboard Inserter Relationship Specialty Start Date End Date Nabila King MD [address] [facility] [address] [place] [address] PCP - General Internal Medicine 12/16/20 Christine Kendall MD Surgeon Ophthalmology 12/13/20 Sita Magana MD [address] [facility] [address] [place] [address] Consulting Physician Internal Medicine 12/13/20 Regulo Pandey MD [address] [place] [address] Referring Physician Cardiovascular Disease 12/16/20 Gigi Méndez MD [address] [facility] [address] [place] [address] Referring Physician Cardiology 02/18/21 Bc Martinez MD [address] [place] [address] Consulting Physician Cardiology 10/22/21 08/21/23 documented as of this encounter
--- OUTSIDE RECORDS SUMMARY | 2024-08-09 20:24 | XMS_ITS | Encounter Summary ---
Author Organization [facility] Healthcare Address [address] [place] [address] Care Team Providers Care Legal Billing Specialist Name Role Phone Christine Kendall MD Unavailable [phone] Sita Magana MD Unavailable [phone] Nabila King MD Primary Care Provider [phone] Regulo Pandey MD Unavailable Gigi Méndez MD Unavailable [phone] Bc Martinez MD Unavailable [phone] Martin Correa MD Unavailable [phone] Gildardo Gonzáles Si, MD Unavailable Encounter Details Date Type Department Care Team (Late st Contact Info) Description 09/22/2023 Orders Only [facility] [address] [place] [address] Scanning, Provider Social History Tobacco [...] file 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 Gender Identity Not on file Sexual Orientation [...] filedocumented in this encounter Care Teams Legal Billing Specialist Relationship Specialty Start Date End Date Nabila King MD [address] [place] [address] [address] [place] [address] PCP - General Internal Medicine 12/16/20 Christine Kendall MD Surgeon Ophthalmology 12/13/20 Sita Magana MD [address] [place] [address] [address] [place] [address] Consulting Physician Internal Medicine 12/13/20 Regulo Pandey MD [address] [place] [address] [address] [place] [address] Referring Physician Cardiovascular Disease 12/16/20 Gigi Méndez MD [address] [place] [address] [address] [place] [address] Referring Physician Cardiology 02/18/21 Bc Martinez MD [address] [place] [address] Referring Physician Cardiology 08/22/23 Martin Correa MD [address] [place] [address] Consulting Physician Cardiothoracic Surgery 08/22/[address] [facility], Gildardo Gomez MD [address] [facility] [address] [place] [address] Consulting Physician Neurology 07/09/24 documented as of this encounter
--- OUTSIDE RECORDS SUMMARY | 2024-08-09 20:24 | XMS_ITS | Encounter Summary ---
Author Organization [facility] Healthcare Address [address] [place] [address] Care Team Providers Care Dental Chairside Assistant Name Role Phone Christine Kendall MD Unavailable [phone] Sita Magana MD Unavailable [phone] Nabila King MD Primary Care Provider [phone] Regulo Pandey MD Unavailable Gigi Méndez MD Unavailable [phone] Bc Martinez MD Unavailable [phone] Encounter Details Date Type Department Care Team (Late st Contact Info) Description 07/21/2023 Orders Only [facility] 1 [place] [address] Scanning, Provider Social History Tobacco [...] on file 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 Gender Identity Not on file Sexual [...] on filedocumented in this encounter Care Teams Dental Chairside Assistant Relationship Specialty Start Date End Date Nabila King MD [address] [facility] [address] [place] [address] PCP - General Internal Medicine 12/16/20 Christine Kendall MD Surgeon Ophthalmology 12/13/20 Sita Magana MD [address] [facility] [address] [place] [address] Consulting Physician Internal Medicine 12/13/20 Regulo Pandey MD [address] [place] [address] [address] [place] [address] Referring Physician Cardiovascular Disease 12/16/20 Gigi Méndez MD [address] [place] [address] [address] [place] [address] Referring Physician Cardiology 02/18/21 Bc Martinez MD [address] [place] [address] Consulting Physician Cardiology 10/22/21 08/21/23 documented as of this encounter
--- OUTSIDE RECORDS SUMMARY | 2024-08-09 20:24 | XMS_ITS | Encounter Summary ---
Author Organization [facility] Healthcare Address [address] [place] [address] Care Team Providers Care Circuit Court Magistrate Name Role Phone Christine Kendall MD Unavailable [phone] Sita Magana MD Unavailable [phone] Nabila King MD Primary Care Provider + [phone] Regulo Pandey MD Unavailable Gigi Méndez MD Unavailable [phone] Bc Martinez MD Unavailable [phone] Martin Correa MD Unavailable [phone] Reason for Visit * Reason Onset Date Comments MRI 03/13/2024 Encounter Details Date Type Department Care Team (Late st Contact Info) Description 03/13/2024 Telephone [facility] Medical Group [facility] [address] [place] [address] Nabila King MD [address] [place] [address] MRI Social History Tobacco Use Types Packs/Day [...] on file 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 * Telephone Encounter - Selma Krishnan - 03/13/2024 9:55 AM CDT Pt call me this morning and I returned her call, When pt came in on 03/06/24, [facility] wants pt to get 4 different MRI and pt has a pacemaker and can only go to [facility]. Pt called to tell us that she call them and they stated that the person working on her case is on vacation and the person wouldn't be back until next week. Pt wanted to go to [facility] because of the convenience for her. FYI [...] on filedocumented in this encounter Care Teams Circuit Court Magistrate Relationship Specialty Start Date End Date Nabila King MD [address] [facility] [address] [place] [address] PCP - General Internal Medicine 12/16/20 Christine Kendall MD Surgeon Ophthalmology 12/13/20 Sita Magana MD [address] [facility] [address] [place] [address] Consulting Physician Internal Medicine 12/13/20 Regulo Pandey MD [address] [place] [address] [address] [place] [address] Referring Physician Cardiovascular Disease 12/16/20 Gigi Méndez MD [address] [facility] [address] [place] [address] Referring Physician Cardiology 02/18/21 Bc Martinez MD [address] [place] [address] Referring Physician Cardiology 08/22/23 Martin Correa MD [address] [place] [address] Consulting Physician Cardiothoracic Surgery 08/22/23 documented as of this encounter
--- OUTSIDE RECORDS SUMMARY | 2024-08-09 20:24 | XMS_ITS | Encounter Summary ---
Author Organization [facility] Medical Group Address [address] [facility] [address] [place] [address] Care Team Providers Care House Mover Name Role Phone Christine Kendall MD Unavailable [phone] Sita Magana MD Unavailable [phone] Nabila King MD Primary Care Provider + [phone] Regulo Pandey MD Unavailable Gigi Méndez MD Unavailable [phone] Bc Martinez MD Unavailable [phone] Reason for Visit * Reason Comments Follow-up 6 month Encounter Details Date Type Department Care Team (Late st Contact Info) Description 01/10/2023 9:00 AM CDT Office Visit [facility] [address] [place] [address] Nabila King MD [address] [place] [address] Burning mouth syndrome (Primary Dx); Periodontal disease; [...] file 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 PLEASE SIGN UP FOR [facility] so that you may have access to your labs and chart documentation IF YOU HAVE TROUBLE WITH THIS PROCESS CALL [phone] CHANGES FOR YOUR SLEEPING TROUBLE 1. Wake [...] the activities that are on your list. [place] this work for the next day. 6. [...] EVERY OFFICE VISIT. PLEASE SIGN UP FOR [facility] so that you may have access to your labs and chart documentation IF YOU HAVE TROUBLE WITH THIS PROCESS CALL [phone] CHANGES FOR YOUR SLEEPING TROUBLE 1. Wake [...] the activities that are on your list. [place] this work for the next day. 6. [...] THIS VISIT Current Outpatient Medications Ordered in [facility] Medication Sig Dispense Refill acetaminophen (TYLENOL) 500 [...] mouth nightly 30 tablet 5 No current [facility]-ordered facility-administered medications on file. ALLERGIES is allergic to clarithromycin, mastisol adhesive [gum uxuqly-fxwlew-pinc-alcohol], metronidazole, other, sulfa (sulfonamide antibiotics), and chloramphenicol. [...] DOCUMENT BLOOD WORK REVIEWED WITH Lisa Conn [facility] Outpatient Visit on 07/04/2022 Component [...] of left hip joint S73.192A Ventricular tachycardia ([facility]) I47.20 Nabila King M.D. documented in this [...] w/ IBC (04/11/2023 8:06 AM CDT) Pathologist [facility] Iron Bind.Cap.(TIBC) 340 250 - 450 ug/dL [facility] - 01 UIBC 199 118 - 369 ug/dL [facility] - 01 Iron 141(H) 27 - 139 ug/dL [facility] - 01 Iron saturation 41 15 - 55 % [facility] - 01 Blood 04/11/2023 8:06 AM CDT 04/11/2023 Narrative [facility] - 04/12/2023 7:36 AM CDT Performed at: ??01 - [facility] [address] ??[id number] Cardiac Cath Technician: Darek Farrell PhD, Phone: ??[phone] us Nabila King MD LAB BLOOD ORDERABLES Final Result [facility] - 01 * CBC with auto differential (04/11/2023 8:06 AM CDT) Pathologist [facility] WBC 5.1 3.4 - 10.8 x10E3/uL [facility] [...] AM CDT Performed at: ??01 - [facility] [address], [place], [place] [id number] Cardiac Cath Technician: Darek Farrell PhD, Phone: ??[phone] Specimen Comment: A courtesy copy of this report has been sent to the patient us Nabila King MD LAB BLOOD ORDERABLES Final Result [facility] - 01 * TSH (04/11/2023 8:06 AM CDT) TSH 4.470 0.450 - 4.500 uIU/mL [facility] - 01 Blood 04/11/2023 8:06 AM CDT 04/11/2023 Narrative [facility] - 04/12/2023 7:36 AM CDT Performed at: ??01 - [facility] ??[id number] Cardiac Cath Technician: Darek Farrell PhD, Phone: ??[phone] us Nabila King MD LAB BLOOD ORDERABLES [...] AM CDT Performed at: ??01 - [facility] [address] ??[id number] Cardiac Cath Technician: Darek Farrell PhD, Phone: ??[phone] Nabila King MD LAB BLOOD ORDERABLES Final [...] AM CDT Performed at: ??01 - [facility] [address] ??[id number] Cardiac Cath Technician: Darek Farrell PhD, Phone: ??[phone] Nabila King MD LAB BLOOD ORDERABLES Final [...] 05/08/2023 added in this encounter Care Teams House Mover Relationship Specialty Start Date End Date Nabila King MD [address] [place] [address] [address] [place] [address] PCP - General Internal Medicine 12/16/20 Christine Kendall MD Surgeon Ophthalmology 12/13/20 Sita Magana MD [address] [place] [address] [address] [place] [address] Consulting Physician Internal Medicine 12/13/20 Regulo Pandey MD [address] [facility] [address] [place] [address] Referring Physician Cardiovascular Disease 12/16/20 Gigi Méndez MD [address] [facility] [address] [place] [address] Referring Physician Cardiology 02/18/21 Bc Martinez MD [address] [place] [address] Consulting Physician Cardiology 10/22/21 08/21/23 documented as of this encounter
--- OUTSIDE RECORDS SUMMARY | 2024-08-09 20:24 | XMS_ITS | Encounter Summary ---
Author Organization [facility] Healthcare Address [address] [place] [address] Care Team Providers Care Director Of Media Name Role Phone FaizaChristine mak MD Unavailable [phone] Sita Magana MD Unavailable [phone] Nabila King MD Primary Care Provider [phone] Regulo Pandey MD Unavailable [facility] Unavailable [phone] Bc Martinez MD Unavailable [phone] Bc Martinez MD Unavailable [phone] Martin Correa MD Unavailable [phone] 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 [address] [place] [address] PCP - General Internal Medicine 12/16/20 Christine Kendall MD Surgeon Ophthalmology 12/13/20 Sita Magana MD [address] [place] [address] [address] [place] [address] Consulting Physician Internal Medicine 12/13/20 Regulo Pandey MD [address] [place] [address] [address] [place] [address] Referring Physician Cardiovascular Disease 12/16/20 Gigi Méndez MD [address] [place] [address] [address] [place] [address] Referring Physician Cardiology 02/18/21 Bc Martinez MD [address] [place] [address] Consulting Physician Cardiology 10/22/21 08/21/23 Bc Martinez MD [address] [place] [address] Referring Physician Cardiology 08/22/23 Martin Correa MD [address] [place] [address] Consulting Physician Cardiothoracic Surgery 08/22/[address] [facility] [address] [address] Consulting Physician Neurology 07/09/24 documented as of this encounter
--- OUTSIDE RECORDS SUMMARY | 2024-08-09 20:24 | XMS_ITS | Encounter Summary ---
Author Organization [facility] Healthcare Address [address] [place] [address] Care Team Providers Care Bank Analyst Name Role Phone Christine Kendall MD Unavailable [phone] Sita Magana MD Unavailable [phone] Nabila King MD Primary Care Provider + [phone] Regulo Pandey MD Unavailable Gigi Méndez MD Unavailable [phone] Bc Martinez MD Unavailable [phone] Martin Correa MD Unavailable [phone] Reason for Visit * Diagnostic Imaging (Routine) - Closed Specialty Diagnoses / Procedures Referred By Contac t Referred To Contact Diagnoses Thoracic radiculopathy Procedures XR Spine Thoracic 3 Vw Nabila King MD [address] [place] [address] Phone: tel: fax: [facility] [address] [place] [address] Referral ID Status Reason Start Date Expiration Date Visits Re quested Visits Authorized [id number] Closed 03/06/2024 04/05/2025 1 1 Encounter Details Date Type Department Care Team (Latest Contact Info) Description 03/06/2024 10:00 AM CDT Ancillary Procedure [facility] [address] [place] [address] Cervical radiculopathy; Thoracic radiculopathy Social [...] file 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 ??There is wmlj-na-hhnsuopr L2-L3 and L4-S1 degenerative disc disease. ?? Inferior lumbar facet osteoarthritis is present. IMPRESSION: Mild C3-C5 and moderate C5-C7 degenerative disc disease with multilevel cervical facet osteoarthritis and bilateral cervical foraminal impingement. Mild multilevel thoracic degenerative disc disease. Chjo-fv-fxlavhmg L2-L3 and L4-S1 degenerative disc disease with grade 1 anterolisthesis of L4 on L5 and inferior lumbar facet osteoarthritis. THIS IS AN ELECTRONICALLY VERIFIED FINAL REPORT 03/06/2024 7:06 PM - Electronically signed by ??Gigi Aguilar M.D. MF: [email or web address] D: ??03/06/2024 7:06 PM T: ??03/06/2024 7:06 PM Report ID: [id number] Reading Location: ??[id number] Procedure Note Gigi Aguilar MD - 03/06/2024 [...] 1 anterolisthesis of L4on L5. There is eqzc-ok-bqipntqq L2-L3 and L4-S1 degenerative disc disease. Inferior lumbar facet osteoarthritis is present. IMPRESSION: Mild C3-C5 and moderate C5-C7 degenerative disc disease with multilevel cervical facet osteoarthritis and bilateral cervical foraminalimpingement. Mild multilevel thoracic degenerative disc disease. Vhma-uk-pdeniplh L2-L3 and L4-S1 degenerative disc disease with grade 1 anterolisthesis of L4 on L5 and inferior lumbar facet osteoarthritis. THIS IS AN ELECTRONICALLY VERIFIED FINAL REPORT 03/06/2024 7:06 PM - Electronically signed by Gigi Aguilar M.D. MF: [email or web address] Report ID: [id number] Reading Location: [place] [address] Nabila King MD IMG XR PROCEDURES Final [...] anterolisthesis of L4 on L5. ??There is cvrh-uo-emzuzbrh L2-L3 and L4-S1 degenerative disc disease. ?? Inferior lumbar facet osteoarthritis is present. IMPRESSION: Mild C3-C5 and moderate C5-C7 degenerative disc disease with multilevel cervical facet osteoarthritis and bilateral cervical foraminal impingement. Mild multilevel thoracic degenerative disc disease. Jxun-fz-nietjbfh L2-L3 and L4-S1 degenerative disc disease with grade 1 anterolisthesis of L4 on L5 and inferior lumbar facet osteoarthritis. THIS IS AN ELECTRONICALLY VERIFIED FINAL REPORT 03/06/2024 7:06 PM - Electronically signed by ??Gigi Aguilar M.D. MF: [email or web address] D: ??03/06/2024 7:06 PM T: ??03/06/2024 7:06 PM Report ID: [id number] Reading Location: ??[id number] Procedure Note Gigi Aguilar MD - 03/06/2024 [...] 1 anterolisthesis of L4on L5. There is xfzr-mx-avpfyztg L2-L3 and L4-S1 degenerative disc disease. Inferior lumbar facet osteoarthritis is present. IMPRESSION: Mild C3-C5 and moderate C5-C7 degenerative disc disease with multilevel cervical facet osteoarthritis and bilateral cervical foraminalimpingement. Mild multilevel thoracic degenerative disc disease. Kbqt-wd-oaaoeuoh L2-L3 and L4-S1 degenerative disc disease with grade 1 anterolisthesis of L4 on L5 and inferior lumbar facet osteoarthritis. THIS IS AN ELECTRONICALLY VERIFIED FINAL REPORT 03/06/2024 7:06 PM - Electronically signed by Gigi Aguilar M.D. MF: [email or web address] Report ID: [id number] Reading Location: [place] [address] Nabila King MD IMG XR PROCEDURES Final [...] anterolisthesis of L4 on L5. ??There is fyqh-ns-hlxbmjkh L2-L3 and L4-S1 degenerative disc disease. ?? Inferior lumbar facet osteoarthritis is present. IMPRESSION: Mild C3-C5 and moderate C5-C7 degenerative disc disease with multilevel cervical facet osteoarthritis and bilateral cervical foraminal impingement. Mild multilevel thoracic degenerative disc disease. Atyv-id-wgwiuotz L2-L3 and L4-S1 degenerative disc disease with grade 1 anterolisthesis of L4 on L5 and inferior lumbar facet osteoarthritis. THIS IS AN ELECTRONICALLY VERIFIED FINAL REPORT 03/06/2024 7:06 PM - Electronically signed by ??Gigi Aguilar M.D. MF: JAMIL D: ??03/06/2024 7:06 PM T: ??03/06/2024 7:06 PM Report ID: [id number] Reading Location: ??[id number] Procedure Note Gigi Aguilar MD - 03/06/2024 [...] 1 anterolisthesis of L4on L5. There is pwlg-uz-mbjjzfdo L2-L3 and L4-S1 degenerative disc disease. Inferior lumbar facet osteoarthritis is present. IMPRESSION: Mild C3-C5 and moderate C5-C7 degenerative disc disease with multilevel cervical facet osteoarthritis and bilateral cervical foraminalimpingement. Mild multilevel thoracic degenerative disc disease. Eczp-er-utwsazue L2-L3 and L4-S1 degenerative disc disease with grade 1 anterolisthesis of L4 on L5 and inferior lumbar facet osteoarthritis. THIS IS AN ELECTRONICALLY VERIFIED FINAL REPORT 03/06/2024 7:06 PM - Electronically signed by Gigi Aguilar M.D. MF: JAMIL Report ID: [id number] Reading Location: [place] [address] Nabila King MD IMG XR PROCEDURES Final Re sult documented in this encounter Visit Diagnoses Diagnosis Cervical radiculopathy Brachial neuritis or radiculitis nos Thoracic radiculopathy Thoracic or lumbosacral neuritis or radiculitis, unspecified documented in this encounter Care Teams Bank Analyst Relationship Specialty Start Date End Date Nabila King MD [address] [place] [address] [facility] [address] [place] [address] PCP - General Internal Medicine 12/16/20 Christine Kendall MD Surgeon Ophthalmology 12/13/20 Sita Magana MD [address] [facility] [place] [address] Consulting Physician Internal Medicine 12/13/20 Regulo Pandey MD [address] [place] [address] Referring Physician Cardiovascular Disease 12/16/20 Gigi Méndez MD [address] [place] [address] Referring Physician Cardiology 02/18/21 Bc Martinez MD [address] [place] [address] Referring Physician Cardiology 08/22/23 Martin Correa MD [address] [place] [address] Consulting Physician Cardiothoracic Surgery 08/22/23 documented as of this encounter
--- OUTSIDE RECORDS SUMMARY | 2024-08-09 20:24 | XMS_ITS | Encounter Summary ---
Author Organization [facility] Address [address] [place] [address] Phone Care Team Providers Care Handkerchief Cutter Name Role Phone Christine Kendall MD Unavailable [phone] Sita Magana MD Unavailable [phone] Nabila King MD Primary Care Provider [phone] Regulo Pandey MD Unavailable Gigi Méndez MD Unavailable [phone] Bc Maritnez MD Unavailable [phone] Reason for Visit * Diagnostic Imaging (Routine) - Closed Specialty Diagnoses / Procedures Referred By Contac t Referred To Contact Diagnoses Low-tension glaucoma, bilateral, severe stage Procedures OCT, Optic Nerve - OU - Both Eyes Christine Kendall MD [facility] DEPT OPHTHALMOLOGY, [address] [place] [address] Phone: tel: fax: [facility] (All Locations) Referral ID Status Reason Start Date Expiration Date Visits Re quested Visits Authorized [id number] Closed 05/08/2023 06/06/2024 1 1 Encounter Details Date Type Department Care Team (Late st Contact Info) Description 05/08/2023 9:50 AM CDT Imaging Exam [facility] Ophthalmology 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 Gender Identity Not on file Sexual [...] stage documented in this encounter Care Teams Handkerchief Cutter Relationship Specialty Start Date End Date Nabila King MD [address] [place] [address] PCP - General Internal Medicine 12/16/20 Christine Kendall MD Surgeon Ophthalmology 12/13/20 Sita Magana MD [address] [place] [address] Consulting Physician Internal Medicine 12/13/20 Regulo Pandey MD [address] [place] [address] [address] [place] [address] Referring Physician Cardiovascular Disease 12/16/20 Gigi Méndez MD [address] [place] [address] [address] [place] [address] Referring Physician Cardiology 02/18/21 Bc Martinez MD [address] [place] [address] Consulting Physician Cardiology 10/22/21 08/21/23 documented as of this encounter
--- OUTSIDE RECORDS SUMMARY | 2024-08-09 20:24 | XMS_ITS | Encounter Summary ---
Author Organization [facility] Address [address] [place] [address] Care Team Providers Care Tablet Machine Operator Name Role Phone Christine Kendall MD Unavailable [phone] Sita Magana MD Unavailable [phone] Nabila King MD Primary Care Provider + [phone] Regulo Pandey MD Unavailable Gigi Méndez MD Unavailable [phone] Bc Martinez MD Unavailable [phone] Reason for Visit * Reason Comments Annual Exam Encounter Details Date Type Department Care Team (Late st Contact Info) Description 08/10/2023 8:40 AM DRY CLEANING CHECKER Office Visit [facility] [address] [place] [address] Nabila King MD [address] [place] [address] Annual physical exam (Primary Dx); Hypothyroidism due [...] file Legal Sex Female 8:14 PM DRY CLEANING CHECKER Gender Identity Not on file Sexual Orientation Not on file 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 Not on file documented as of this encounter Last Filed Vital Signs Vital Sign Reading Time Taken Comments Blood Pressure 124/74 08/10/2023 8:41 AM DRY CLEANING CHECKER Pulse 81 08/10/2023 8:41 AM DRY CLEANING CHECKER Temperature 36.2 ??C (97.1 ??F) 08/10/2023 8:41 AM CS T Respiratory Rate 20 08/10/2023 8:41 AM DRY CLEANING CHECKER Oxygen Saturation 97% 08/10/2023 8:41 AM DRY CLEANING CHECKER Inhaled Oxygen Concentration - - Weight 54.4 kg (120 lb) 08/10/2023 8:41 AM DRY CLEANING CHECKER Height 165.1 cm (5' 5 ) 08/10/2023 8:41 AM DRY CLEANING CHECKER Body Mass Index 19.97 08/10/2023 8:41 AM DRY CLEANING CHECKER documented in this encounter Patient Instructions * Patient Instructions* Nabila King MD - 08/10/2023 8:40 AM DRY CLEANING CHECKER ORDERS FOR AMS STAFF TO ARRANGE: 1. [...] with COVID-19. This will require transportation to [facility] daily for 3 days to complete your course ofcare PLANNING FOR possible INFLUENZA INFECTIONS Take your yearly flu shot in May, [ We take the flu shot to prevent dying from Influenza = the flu. ] Influenza causes fever and muscle aches. If you have these symptoms you will need to go to the Office or a [facility] care clinic for testing Antiviral therapy = Tamiflu= is available but needs to be started within the 1st 24-72 hours of symptoms. Please be evaluated immediately if you have these symptoms. CLEANING CHECKER CLEANING CHECKER CLEANING CHECKER CLEANING CHECKER documented in this encounter Ordered Prescriptions Prescription [...] TO CONSIDER: I recommend www.NLM,NIH.GOV/MEDLINEPLUS = the [employer] library of medicine online site. This is [...] and corns, have generic order these on [employer] 1, 2, 3 lbs upper core weightlifting [...] with COVID-19. This will require transportation to [facility] daily for 3 days to complete [...] Comprehensive Yearly PhysicalExam Worksheet. And scanned into [facility] today 1. Annual physical exam The annual examination: specifics of the testing and counseling are recorded on the scanned Comprehensive Yearly Physical Exam Worksheet. and scanned into [facility] today The non- annual associated medical care [...] Acute on chronic diastolic heart failure (CMS/HCC) ([facility]) 8. Aortic valve insufficiency, etiology of cardiac valve disease unspecified 9. Sick sinus syndrome (CMS/HCC) ([facility]) 10. Presence of cardiac pacemaker 11. Ventricular septal defect (VSD) 12. 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 Nabila King MD CLEANING CHECKER documented in this encounter Plan of Treatment [...] 9:37 AM CDT Performed at: ?? - [address] ??[id number] Mine Car Mechanic: Darek Farrell PhD, Phone: ??[phone] Nabila King MD LAB BLOOD ORDERABLES Final Result Performing Organization Address [facility] de Phone Number [facility] - * T4, free (02/08/2024 8:15 AM CDT) T4,Free(Direct) 1.21 0.82 - 1.77 ng/dL [facility] - 01 Blood 02/08/2024 8:15 AM CDT 02/08/2024 Narrative [facility] - 02/09/2024 9:37 AM CDT Performed at: ?? - [facility] ??[id number] Mine Car Mechanic: Darek Farrell PhD, Phone: ??[phone] Nabila King MD LAB BLOOD ORDERABLES Final Result Performing Organization Address [facility] de Phone Number [facility] - * Erythrocyte sedimentation rate (02/08/2024 8:15 AM CDT) Pathologist [facility] Erythrocyte sedimentation rate 2 0 - 40 mm/hr [facility] - 01 Blood 02/08/2024 8:15 AM CDT 02/08/2024 Narrative [facility] - 02/09/2024 9:37 AM CDT Performed at: ?? [facility] ??[id number] Mine Car Mechanic: Darek Farrell PhD, Phone: ??[phone] us Nabila King MD LAB BLOOD ORDERABLES Final Result Performing Organization Address [facility] de Phone Number [facility] [...] AM CDT Performed at: ??01 - [facility] [address], [place], [place] ??[id number] Mine Car Mechanic: Darek Farrell PhD, Phone: ??[phone] Nabila King MD LAB BLOOD ORDERABLES Final Result [facility] - * Comprehensive metabolic panel (02/08/2024 8:15 AM CDT) [facility] Glucose 86 70 - 99 mg/dL [facility] [...] AM CDT Performed at: ??01 - [facility] [address] ??[id number] Mine Car Mechanic: Darek Farrell PhD, Phone: ??[phone] Nabila King MD LAB BLOOD ORDERABLES Final Result [facility] - 01 * (ABNORMAL) Cholesterol, LDL, direct (02/08/2024 8:15 AM CDT) LDL Chol, Direct 123(H) 0 - 99 mg/dL [facility] - 01 Blood 02/08/2024 8:15 AM CDT 02/08/2024 Narrative [facility] - 02/09/2024 4:11 PM CDT Performed at: ??01 - [facility] [address] ??[id number] Mine Car Mechanic: Darek Farrell PhD, Phone: ??[phone] us Nabila King MD LAB BLOOD ORDERABLES Final Result [facility] - 01 documented in this encounter [...] 4 added in this encounter Care Teams Tablet Machine Operator Relationship Specialty Start Date End Date Nabila King MD [address] [place] [address] [address] [place] [address] PCP - General Internal Medicine 12/16/20 Christine Kendall MD Surgeon Ophthalmology 12/13/20 Sita Magana MD [address] [place] [address] [address] [place] [address] Consulting Physician Internal Medicine 12/13/20 Regulo Pandey MD [address] [place] [address] [address] [place] [address] Referring Physician Cardiovascular Disease 12/16/20 Gigi Méndez MD [address] [place] [address] [address] [place] [address] Referring Physician Cardiology 02/18/21 Bc Martinez MD [address] [place] [address] Consulting Physician Cardiology 10/22/21 08/21/23 documented as of this encounter
--- OUTSIDE RECORDS SUMMARY | 2024-08-09 20:24 | XMS_ITS | Encounter Summary ---
Author Organization [facility] Healthcare Address [address] [place] [address] Care Team Providers Care Naval Aircrewman Operator Name Role Phone Christine Kendall MD Unavailable [phone] Sita Magana MD Unavailable [phone] Nabila King MD Primary Care Provider + [phone] Regulo Pandey MD Unavailable Gigi Méndez MD Unavailable [phone] Bc Martinez MD Unavailable [phone] Martin Correa MD Unavailable [phone] Encounter Details Date Type Department Care Team (Late st Contact Info) Description 09/20/2023 Telephone [facility] [address] [place] [address] Luciano King MD [address] [address] Social History Tobacco Use Types [...] on file Legal Sex Female 8:14 PM CRYPTANALYST Gender Identity Not on file Sexual Orientation [...] She knows to call back if needed. TANALYST * Telephone Encounter - Nabila King MD - 09/20/2023 7:18 PM CRYPTANALYST September 20, 2023: Moderate RUDY Confirmed on [...] a note from me Dr. Nabila King TANALYST * Telephone Encounter - Luciano King MD - 09/20/2023 6:39 PM CST Moderate obstructive sleep apnea on this report which was placed in my results folder in error. TANALYST documented in this encounter Plan of Treatment Not on file documented as of this encounter Visit Diagnoses Not on filedocumented in this encounter Care Teams Naval Aircrewman Operator Relationship Specialty Start Date End Date Nabila King MD [address] [place] [address] [address] [place] [address] PCP - General Internal Medicine 12/16/20 Christine Kendall MD Surgeon Ophthalmology 12/13/20 Sita Magana MD [address] [place] [address] [facility] [address] [place] [address] Consulting Physician Internal Medicine 12/13/20 Regulo Pandey MD [address] [place] [address] [facility] [address] [place] [address] Referring Physician Cardiovascular Disease 12/16/20 Gigi Méndez MD [address] [place] [address] [facility] [address] [place] [address] Referring Physician Cardiology 02/18/21 Bc Martinez MD [address] [place] [address] Referring Physician Cardiology 08/22/23 Martin Correa MD [address] [place] [address] Consulting Physician Cardiothoracic Surgery 08/22/23 documented as of this encounter
--- OUTSIDE RECORDS SUMMARY | 2024-08-09 20:25 | XMS_ITS | Encounter Summary ---
Author Organization [facility] Address [address] [facility] [address] [place] [address] Care Team Providers Care Computer System Specialist Name Role Phone Christine Kendall MD Unavailable [phone] Sita Magana MD Unavailable [phone] Nabila King MD Primary Care Provider + [phone] Regulo Pandey MD Unavailable Gigi Méndez MD Unavailable [phone] Bc Martinez MD Unavailable [phone] Reason for Referral * Diagnostic Imaging (Routine) - Closed Specialty Diagnoses / Procedures Referred By John t Referred To Contact Diagnoses Chronic bilateral low back pain with left-sided sciatica Procedures XR Spine Lumbar Complete 4 Or More Elizabeth Daniels NP [address] [place] [address] Phone: tel: [facility] Referral ID Status Reason Start Date Expiration Date Visits Re quested Visits Authorized [id number] Closed 03/02/2022 04/01/2023 1 1 Reason for Visit * Reason Comments Hip Pain Encounter Details Date Type Department Care Team (Latest Contact Info) Description 03/02/2022 9:30 AM CDT Office Visit [facility] [address] [place] [address] Elizabeth Daniels NP [address] [place] [address] Chronic pain syndrome (Primary Dx); Chronic bilateral [...] on file Legal Sex Female 8:14 PM SENIOR NUCLEAR MEDICINE TECHNOLOGIST Gender Identity Not on file Sexual [...] 10:15 AM CDT) CRP 3.1 <=10.0 mg/L [facility] Blood 03/02/2022 10:1 5 AM CDT 03/02/2022 7:10 PM CDT [facility] Josue Giancarlonapoleonrex BOXING INSPECTOR LAB BLOOD ORDERABL ES Final Result Performing Organization Address [facility] de Phone Number [facility] [address] [place] [address] * Erythrocyte sedimentation rate (03/02/2022 10:15 AM CDT) Erythrocyte sedimentation rate 4 1 - 30 mm/hr [facility] Blood 03/02/2022 10:1 5 AM CDT 03/02/2022 7:10 PM CDT [facility] Liat Daniels LAB BLOOD ORDERABL ES Final Result Performing Organization Address [facility] de Phone Number [facility] [address] [address] [facility] [place] [address] documented in this encounter Visit Diagnoses Diagnosis [...] day added in this encounter Care Teams Computer System Specialist Relationship Specialty Start Date End Date Nabila King MD [address] [facility] [address] [place] [address] PCP - General Internal Medicine 12/16/20 Christine Kendall MD Surgeon Ophthalmology 12/13/20 Sita Magana MD [address] [place] [address] [address] [place] [address] Consulting Physician Internal Medicine 12/13/20 Regulo Pandey MD [address] [place] [address] [address] [place] [address] Referring Physician Cardiovascular Disease 12/16/20 Gigi Méndez MD [address] [place] [address] [address] [place] [address] Referring Physician Cardiology 02/18/21 Bc Martinez MD [address] [place] [address] Consulting Physician Cardiology 10/22/21 08/21/23 documented as of this encounter
--- OUTSIDE RECORDS SUMMARY | 2024-08-09 20:25 | XMS_ITS | Encounter Summary ---
Author Organization [facility] Address [address] [facility] [address] [place] [address] Care Team Providers Care Medical Billing Assistant Name Role Phone Christine Kendall MD Unavailable [phone] Sita Magana MD Unavailable [phone] Nabila King MD Primary Care Provider + [phone] Regulo Pandey MD Unavailable Gigi Méndez MD Unavailable [phone] Bc Martinez MD Unavailable [phone] Reason for Visit * Reason Onset Date Comments would like results of tsh 07/11/2022 Encounter Details Date Type Department Care Team (Late st Contact Info) Description 07/11/2022 Telephone [facility] [address] [place] [id number] Nabila King MD [address] [place] [address] would like results of tsh Social History [...] on file Legal Sex Female 8:[address] INSPECTOR Gender Identity Not on file Sexual Orientation Not on file 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 Cbn: [phone] ET CAR INSPECTOR documented in this encounter Plan of Treatment Not on file documented as of this encounter Visit Diagnoses Not on filedocumented in this encounter Care Teams Medical Billing Assistant Relationship Specialty Start Date End Date Nabila King MD [address] [place] [address] [address] [place] [address] PCP - General Internal Medicine 12/16/20 Christine Kendall MD Surgeon Ophthalmology 12/13/20 Sita Magana MD [address] [place] [address] [address] [place] [address] Consulting Physician Internal Medicine 12/13/20 Regulo Pandey MD [facility] [address] [place] [address] Referring Physician Cardiovascular Disease 12/16/20 Gigi Méndez MD [address] [place] [address] Referring Physician Cardiology 02/18/21 Bc Martinez MD [address] [place] [address] Consulting Physician Cardiology 10/22/21 08/21/23 documented as of this encounter
--- OUTSIDE RECORDS SUMMARY | 2024-08-09 20:25 | XMS_ITS | Encounter Summary ---
Author Organization [facility] Medical [facility] Address [address] [facility] [address] [place] [address] Care Team Providers Care Field Artillery Senior Sergeant Name Role Phone Christine Kendall MD Unavailable [phone] Sita Magana MD Unavailable [phone] Nabila King MD Primary Care Provider [phone]- [phone] Regulo Pandey MD Unavailable Gigi Méndez MD Unavailable [phone] Bc Martinez MD Unavailable [phone] Encounter Details Date Type Department Care Team (Late st Contact Info) Description 12/14/2021 Telephone [facility] [address] [place] [address] Nabila King MD [address] [place] [address] Social History Tobacco Use Types Packs/Day Years [...] on file Legal Sex Female 8:14 PM RUGBY UNION 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 Gender Identity Not on file Sexual Orientation [...] cardiac nurse * Telephone Encounter - Eliu Reynolds RN - 12/15/2021 12:15 PM CDT Spoke to Damaris @ Dr Martinez office ([phone])et informed of below KMS message States pt [...] filedocumented in this encounter Care Teams Field Artillery Senior Sergeant Relationship Specialty Start Date End Date Nabila King MD [address] [facility] [address] [place] [address] PCP - General Internal Medicine 12/16/20 Christine Kendall MD Surgeon Ophthalmology 12/13/20 Sita Magana MD [address] [place] [address] [address] [place] [address] Consulting Physician Internal Medicine 12/13/20 Regulo Pandey MD [address] [place] [address] [address] [place] [address] Referring Physician Cardiovascular Disease 12/16/20 Gigi Méndez MD [address] [place] [address] [address] [place] [address] Referring Physician Cardiology 02/18/21 Bc Martinez MD [address] [place] [address] Consulting Physician Cardiology 10/22/21 08/21/23 documented as of this encounter
--- OUTSIDE RECORDS SUMMARY | 2024-08-09 20:25 | XMS_ITS | Encounter Summary ---
Author Organization [facility] Medical [facility] Address [address] [facility] [address] [place] [address] Care Team Providers Care Insulation Estimator Name Role Phone Christine Kendall MD Unavailable [phone] Sita Magana MD Unavailable [phone] Nabila King MD Primary Care Provider + [phone] Regulo Pandey MD Unavailable Gigi Méndez MD Unavailable [phone] Bc Martinez MD Unavailable [phone] Encounter Details Date Type Department Care Team (Late st Contact Info) Description 03/04/2022 Telephone [facility] [address] [place] [address] Elizabeth Daniels, SALES SUPPORT REP [address] [place] [address] Social History Tobacco Use Types [...] on file Legal Sex Female 8:14 PM LANDSCAPE ARTIST Gender Identity Not on file Sexual Orientation Not on file 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 Not on file documented as of this encounter Miscellaneous Notes * Telephone Encounter - Jloene Carson RN - 03/04/2022 12:27 PM CDT [...] on filedocumented in this encounter Care Teams Insulation Estimator Relationship Specialty Start Date End Date Nabila King MD [address] [facility] [address] [place] [address] PCP - General Internal Medicine 12/16/20 Christine Kendall MD Surgeon Ophthalmology 12/13/20 Sita Magana MD [address] [place] [address] Consulting Physician Internal Medicine 12/13/20 Regulo Pandey MD [address] [place] [address] Referring Physician Cardiovascular Disease 12/16/20 Gigi Méndez MD [address] [place] [address] Referring Physician Cardiology 02/18/21 Bc Martinez MD [address] [place] [address] Consulting Physician Cardiology 10/22/21 08/21/23 documented as of this encounter
--- OUTSIDE RECORDS SUMMARY | 2024-08-09 20:25 | XMS_ITS | Encounter Summary ---
Author Organization [facility] Medical [facility] Address [address] [facility] [address] [place] [address] Care Team Providers Care Hog Sticker Name Role Phone Christine Kendall MD Unavailable [phone] Sita Magana MD Unavailable [phone] Nabila King MD Primary Care Provider + [phone] Regulo Pandey MD Unavailable Gigi Méndez MD Unavailable [phone] Bc Martinez MD Unavailable [phone] Encounter Details Date Type Department Care Team (Late st Contact Info) Description 03/02/2022 10:40 AM CDT [facility] [address] [place] [address] Bilateral hip pain Social History Tobacco [...] on file Legal Sex Female 8:14 PM WHARF TENDER HELPER Gender Identity Not on file Sexual [...] thigh documented in this encounter Care Teams Hog Sticker Relationship Specialty Start Date End Date Nabila King MD [address] [facility] [address] [place] [address] PCP - General Internal Medicine 12/16/20 Christine Kendall MD Surgeon Ophthalmology 12/13/20 Sita Magana MD [address] [facility] [address] [place] [address] Consulting Physician Internal Medicine 12/13/20 Regulo Pandey MD [address] [facility] [address] [place] [address] Referring Physician Cardiovascular Disease 12/16/20 Gigi Méndez MD [address] [facility] [address] [place] [address] Referring Physician Cardiology 02/18/21 Bc Martinez MD [address] [place] [address] Consulting Physician Cardiology 10/22/21 08/21/23 documented as of this encounter
--- OUTSIDE RECORDS SUMMARY | 2024-08-09 20:25 | XMS_ITS | Encounter Summary ---
Author Organization [facility] Medical [facility] Address [address] [facility] [address] [place] [address] Care Team Providers Care Graduate Teacher Education Name Role Phone Christine Kendall MD Unavailable [phone] Sita Magana MD Unavailable [phone] Nabila King MD Primary Care Provider + [phone] Regulo Pandey MD Unavailable Gigi Méndez MD Unavailable [phone] Bc Martinez MD Unavailable [phone] Encounter Details Date Type Department Care Team (Late st Contact Info) Description 07/11/2022 Telephone [facility] [address] [place] [address] Jolene Carson, RN Social History Tobacco [...] on file Legal Sex Female 8:14 PM FRUIT RECEIVER Gender Identity Not on file Sexual Orientation Not on file 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 Not on file documented as of this encounter Miscellaneous Notes * Telephone Encounter - Jolene Carson RN - 07/11/2022 1:35 PM CST error T RECEIVER documented in this encounter Plan of Treatment Not on file documented as of this encounter Visit Diagnoses Not on filedocumented in this encounter Care Teams Graduate Teacher Education Relationship Specialty Start Date End Date Nabila King MD [address] [facility] [address] [place] [address] PCP - General Internal Medicine 12/16/20 Christine Kendall MD Surgeon Ophthalmology 12/13/20 Sita Magana MD [address] [facility] [address] [place] [address] Consulting Physician Internal Medicine 12/13/20 Regulo Pandey MD [address] [place] [address] Referring Physician Cardiovascular Disease 12/16/20 Gigi Méndez MD [address] [facility] [address] [place] [address] Referring Physician Cardiology 02/18/21 Bc Martinez MD [address] [place] [address] Consulting Physician Cardiology 10/22/21 08/21/23 documented as of this encounter
--- OUTSIDE RECORDS SUMMARY | 2024-08-09 20:25 | XMS_ITS | Encounter Summary ---
Author Organization [facility] Medical Group Address [address] [facility] [address] [place] [address] Care Team Providers Care Pathology Laboratory Director Name Role Phone Christine Styles MD Unavailable [phone] Sita Magana MD Unavailable [phone] Nabila King MD Primary Care Provider + [phone] Regulo Pandey MD Unavailable Gigi Méndez MD Unavailable [phone] Bc Martinez MD Unavailable [phone] Reason for Visit * Reason Comments Annual Exam Encounter Details Date Type Department Care Team (Late st Contact Info) Description 07/04/2022 10:00 AM WELDER GAS AUTOMATIC Office Visit [facility] [address] [place] [address] Nabila King MD [address] [place] [address] Annual physical exam (Primary Dx); Presence of [...] on file Legal Sex Female 8:14 PM WELDER GAS AUTOMATIC Gender Identity Not on file Sexual Orientation Not on file 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 Not on file documented as of this encounter Last Filed Vital Signs Vital Sign Reading Time Taken Comments Blood Pressure 122/74 07/04/2022 11:08 AM WELDER GAS AUTOMATIC Average home blood pressure Pulse 82 07/04/2022 10:07 AM WELDER GAS AUTOMATIC Temperature 36.1 ??C (96.9 ??F) 07/04/2022 1 0:07 AM WELDER GAS AUTOMATIC Respiratory Rate 16 07/04/2022 10:0 7 AM WELDER GAS AUTOMATIC Oxygen Saturation 97% 07/04/2022 10: 07 AM WELDER GAS AUTOMATIC Inhaled Oxygen Concentration - - Weight 56.2 kg (124 lb) 07/04/2022 10:0 7 AM WELDER GAS AUTOMATIC Height 165.1 cm (5' 5 ) 07/04/2022 10:0 7 AM WELDER GAS AUTOMATIC Body Mass Index 20.63 07/04/2022 10:07 AM WELDER GAS AUTOMATIC documented in this encounter Patient Instructions * Patient Instructions* Nabila King MD - 07/04/2022 10:00 AM WELDER GAS AUTOMATIC ORDERS FOR AMS STAFF TO ARRANGE 1. Free T4 , TSH today and in 6 months = hypothyroid adult LDL, chemistry profile, CBC = sick sinus syndrome medication monitoring 2. Advanced directives were updated these need to be copy for [facility] scanning Advanced directives AMS staff will [...] each problem discussed today Primary Pharmacy/DME suppliers: [facility] - [place], [place] - [address] [facility] [address] [facility] [address] ICD-9-CM ICD-10-CM 1. Annual physical exam V70.0 Z00.00 Comprehensive metabolic panel Cholesterol, LDL, direct Comprehensive metabolic panel Cholesterol, LDL, direct 2. Presence of cardiac pacemaker V45.01 Z95.0 3. Ventricular septal defect (VSD) 745.4 Q21.0 4. Aortic valve insufficiency, etiology of cardiac valve disease unspecified 424.1 I35.1 5. Paroxysmal A-fib ([facility]) ([facility]) 427.31 I48.0 dilTIAZem (CARDIZEM) 60 mg tablet 6. Sick sinus syndrome ([facility]) ([facility]) 427.81 I49.5 CBC with auto differential [...] 8. Acute on chronic diastolic heart failure ([facility]) ([facility]) 428.33 I50.33 9. ASVD (arteriosclerotic vascular [...] EVERY OFFICE VISIT. PLEASE SIGN UP FOR [employer] so that you may have access to your labs and chart documentation IF YOU HAVE TROUBLE WITH THIS PROCESS CALL [phone] Annual Exam finds the need for continued [...] AND LOOP EXERCISE BANDS ARE AVAILABLE ON Richard Pauer - 3P For core strengthening try Pilates = The [...] the activities that are on your list. [place] this work for the next day. 6. [...] highly effective and does not require leaving theroyal to attend psychologist visits. ER GAS AUTOMATIC ER GAS AUTOMATIC ER GAS AUTOMATIC ER GAS AUTOMATIC ER GAS AUTOMATIC ER GAS AUTOMATIC ER GAS AUTOMATIC documented in this encounter Ordered Prescriptions Prescription [...] updated these need to be copy for [facility] scanning Advanced directives AMS staff will copy [...] each problem discussed today Primary Pharmacy/DME suppliers: [facility] [place], [place] - [address] [place] [address] [address] [facility] [address] ICD-9-CM ICD-10-CM 1. Annual physical exam V70.0 Z00.00 Comprehensive metabolic panel Cholesterol, LDL, direct Comprehensive metabolic panel Cholesterol, LDL, direct 2. Presence of cardiac pacemaker V45.01 Z95.0 3. Ventricular septal defect (VSD) 745.4 Q21.0 4. Aortic valve insufficiency, etiology of cardiac valve disease unspecified 424.1 I35.1 5. Paroxysmal A-fib (CMS/HCC) ([facility]) 427.31 I48.0 dilTIAZem (CARDIZEM) 60 mg tablet 6. Sick sinus syndrome (CMS/HCC) ([facility]) 427.81 I49.5 CBC with auto differential [...] YOU HAVE TROUBLE WITH THIS PROCESS CALL [phone] Annual Exam finds the need for continued [...] AND LOOP EXERCISE BANDS ARE AVAILABLE ON Richard Pauer - 3P For core strengthening try Pilates = The [...] the activities that are on your list. [place] this work for the next day. 6. [...] where indicated ORDERS FROM LAST VISIT WITH [place] 12/14/[address] Martinez office to [...] REGARDING THIS VISIT required an additional 28 jypm-pc-crzp minutes of care time: 2. Presence of cardiac pacemaker 3. Ventricular septal defect (VSD) 4. Aortic valve insufficiency, etiology of cardiac valve disease unspecified 5. 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 [...] the patient and ACCURATELY RECORDED ON THE [facility] ANNUAL PHYSICAL COUNSELING SHEET PROVIDED TO THE [...] the scanned preventive health document created today. 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?[id number] Plaster Block Layer: Darek Farrell PhD, Phone: ??[phone] us Nabila King MD LAB BLOOD ORDERABLES Final Result [facility] - * (ABNORMAL) Comprehensive metabolic panel (09/09/2022 2:21 PM WELDER GAS AUTOMATIC) Glucose 175(H) 70 - 99 mg/dL [facility] [...] [facility] - 01 Blood 09/09/2022 2:21 PM WELDER GAS AUTOMATIC 09/09/2022 Narrative [facility] - 09/10/2022 7:36 AM WELDER GAS AUTOMATIC Performed at: ?? - [facility] [address] ??[id number] Plaster Block Layer: Darek Farrell PhD, Phone: ??[phone] Specimen Comment: A courtesy copy of this report has been sent to the patient us Nabila King MD LAB BLOOD ORDERABLES Final Result [facility] - * T4, free (09/09/2022 2:21 PM WELDER GAS AUTOMATIC) [facility] T4,Free(Direct) 1.20 0.82 - 1.77 ng/dL [facility] - 01 Blood 09/09/2022 2:21 PM WELDER GAS AUTOMATIC 09/09/2022 Narrative [facility] - 09/10/2022 9:36 AM WELDER GAS AUTOMATIC Performed at: ??01 - [facility] ??[id number] Plaster Block Layer: Darek Farrell PhD, Phone: ??[phone] Specimen Comment: A courtesy copy of this report has been sent to the patient Nabila King MD LAB BLOOD ORDERABLES Final Result Performing Organization Address [facility] Co de Phone Number [facility] - * TSH (09/09/2022 2:21 PM WELDER GAS AUTOMATIC) [facility] TSH 1.300 0.450 - 4.500 uIU/mL [facility] - 01 Blood 09/09/2022 2:21 PM WELDER GAS AUTOMATIC 09/09/2022 Narrative [facility] - 09/10/2022 9:36 AM WELDER GAS AUTOMATIC Performed at: ??01 - [facility] ??[id number] Plaster Block Layer: Darek Farrell PhD, Phone: ??[phone] Nabila King MD LAB BLOOD ORDERABLES Final Result Performing Organization Address City/[facility]/ZIP Co de Phone Number [facility] - * CBC with auto differential (09/09/2022 2:21 PM WELDER GAS AUTOMATIC) [facility] WBC 6.7 3.4 - 10.8 x10E3/uL [facility] [...] [facility] - 01 Blood 09/09/2022 2:21 PM WELDER GAS AUTOMATIC 09/09/2022 Narrative [facility] - 09/10/2022 7:36 AM WELDER GAS AUTOMATIC Performed at: ?? - [facility] [address] ??[id number] Plaster Block Layer: Darek Farrell PhD, Phone: ??[phone] us Nabila King MD LAB BLOOD ORDERABLES Final Result [facility] - * (ABNORMAL) Comprehensive metabolic panel (07/04/2022 11:48 AM WELDER GAS AUTOMATIC) Sodium 137 135 - 145 mmol/L CERNER [...] CERNER CH Blood 07/04/2022 11:4 8 AM WELDER GAS AUTOMATIC 07/04/2022 7:06 PM WELDER GAS AUTOMATIC us Nabila King MD LAB BLOOD ORDERABLES Final Result [facility] [address] [place] [address] * Cholesterol, LDL, direct (07/04/2022 11:48 AM WELDER GAS AUTOMATIC) LDL Cholesterol, Direct 116 <=129 mg/dL CERNER [...] on 2018. Blood 07/04/2022 11:4 8 AM WELDER GAS AUTOMATIC 07/04/2022 7:06 PM WELDER GAS AUTOMATIC Result Ricardo King MD LAB BLOOD ORDERABLES Final Result Performing Organization Address [facility] de Phone Number [facility] [address] [place] [address] * TSH (07/04/2022 11:48 AM WELDER GAS AUTOMATIC) Thyroid Stimulating Hormone 1.77 0.30 - 4.20 mcIUnit/mL [facility] Blood 07/04/2022 11:4 8 AM WELDER GAS AUTOMATIC 07/04/2022 7:06 PM WELDER GAS AUTOMATIC Result Ricardo King MD LAB BLOOD ORDERABLES Final Result Performing Organization Address City/[facility] Co de Phone Number [facility] [address] [place] [place] [address] * T4, free (07/04/2022 11:48 AM WELDER GAS AUTOMATIC) Free T4 1.22 0.90 - 1.70 ng/dL [facility] Blood 07/04/2022 11:4 8 AM WELDER GAS AUTOMATIC 07/04/2022 7:06 PM WELDER GAS AUTOMATIC us Nabila King MD LAB BLOOD ORDERABLES Final Result [facility] [address] [facility] [place] [address] documented in this encounter Visit Diagnoses Diagnosis [...] documented as of this encounter Care Teams Pathology Laboratory Director Relationship Specialty Start Date End Date Nabila King MD [address] [place] [address] PCP - General Internal Medicine 12/16/20 Christine Styles MD Surgeon Ophthalmology 12/13/20 Sita Magana MD [address] [place] [address] Consulting Physician Internal Medicine 12/13/20 Regulo Pandey MD [address] [facility] [address] [place] [address] Referring Physician Cardiovascular Disease 12/16/20 Gigi Méndez MD [address] [facility] [address] [place] [address] Referring Physician Cardiology 02/18/21 Bc Martinez MD [address] [place] [address] Consulting Physician Cardiology 10/22/21 08/21/23 documented as of this encounter
--- OUTSIDE RECORDS SUMMARY | 2024-08-09 20:25 | XMS_ITS | Encounter Summary ---
Author Organization [facility] Healthcare Address [address] [place] [address] Care Team Providers Care Shape Hand Name Role Phone Christine Kednall MD Unavailable [phone] Sita Magana MD Unavailable [phone] Nabila King MD Primary Care Provider [phone] Regulo Pandey MD Unavailable Gigi Méndez MD Unavailable [phone] Bc Martinez MD Unavailable [phone] Encounter Details Date Type Department Care Team (Late st Contact Info) Description 03/02/2022 7:05 PM CDT Lab [address] [address] Chronic pain syndrome Social History [...] on file Legal Sex Female 8:14 PM BOOM TENDER Gender Identity Not on file Sexual [...] CDT 03/02/2022 7:10 PM CDT Elizabeth Daniels OIL FIELD PIPELINE SUPERVISOR LAB BLOOD ORDERABL ES Final Result Performing Organization Address [facility] Co de Phone Number [facility] [address] [facility] [place] [address] * CRP (acute phase) (03/02/2022 10:15 AM CDT) CRP 3.1 <=10.0 mg/L CERNER Blood 03/02/2022 10:1 5 AM CDT 03/02/2022 7:10 PM CDT [facility] OIL FIELD PIPELINE SUPERVISOR LAB BLOOD ORDERABL ES Final Result Performing Organization Address [facility] Co de Phone Number [facility] [address] [facility] [place] [address] documented in this encounter Visit Diagnoses Diagnosis Chronic pain syndrome documented in this encounter Care Teams Shape Hand Relationship Specialty Start Date End Date Nabila King MD [address] [facility] 200 [place] [address] PCP - General Internal Medicine 12/16/20 Christine Kendall MD Surgeon Ophthalmology 12/13/20 Sita Magana MD [address] [facility] [address] [place] [address] Consulting Physician Internal Medicine 12/13/20 Regulo Panedy MD [address] [place] [address] [address] [place] [address] Referring Physician Cardiovascular Disease 12/16/20 Gigi Méndez MD [address] [place] [address] [address] [place] [address] Referring Physician Cardiology 02/18/21 Bc Martinez MD [address] [place] [address] Consulting Physician Cardiology 10/22/21 08/21/23 documented as of this encounter
--- OUTSIDE RECORDS SUMMARY | 2024-08-09 20:25 | XMS_ITS | Encounter Summary ---
Author Organization [facility] Address [address] [facility] [address] [place] [address] Care Team Providers Care Bore Miner Operator Name Role Phone Christine Kendall MD Unavailable [phone] Sita Magana MD Unavailable [phone] Nabila King MD Primary Care Provider + [phone] Regulo Pandey MD Unavailable Gigi Méndez MD Unavailable [phone] Bc Martinez MD Unavailable [phone] Reason for Visit * Diagnostic Imaging (Routine) - Closed Specialty Diagnoses / Procedures Referred By John bojorquez Referred To Contact Diagnoses Chronic bilateral low back pain with left-sided sciatica Procedures XR Hips Bilateral W Pelvis 3 or 4 Views XR Hips Bilateral 2 Views W Pelvis [place], Elizabeth Josue, DRAFTER MARINE [address] [place] [address] Phone: tel: [facility] Referral ID Status Reason Start Date Expiration Date Visits Re quested Visits Authorized [id number] Closed 03/02/2022 04/01/2023 1 1 Encounter Details Date Type Department Care Team (Latest Contact Info) Description 03/02/2022 10:30 AM CDT Ancillary Procedure [facility] [address] [place] [address] Chronic bilateral low back pain [...] on file Legal Sex Female 8:14 PM 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 Elizabeth Daniels DRAFTER MARINE IMG XR PROCEDURES Final Result documented in this encounter Visit Diagnoses Diagnosis Chronic bilateral low back pain with left-sided sciatica documented in this encounter Care Teams Bore Miner Operator Relationship Specialty Start Date End Date Nabila King MD [address] [place] [address] [facility] 200 [place] [address] PCP - General Internal Medicine 12/16/20 Christine Kendall MD Surgeon Ophthalmology 12/13/20 Sita Magana MD [address] [facility] [address] [place] [address] Consulting Physician Internal Medicine 12/13/20 Regulo Pandey MD [address] [place] [address] [address] [place] [address] Referring Physician Cardiovascular Disease 12/16/20 Gigi Méndez MD [address] [place] [address] [address] [place] [address] Referring Physician Cardiology 02/18/21 Bc Martinez MD [address] [place] [address] Consulting Physician Cardiology 10/22/21 08/21/23 documented as of this encounter
--- OUTSIDE RECORDS SUMMARY | 2024-08-09 20:25 | XMS_ITS | Encounter Summary ---
Author Organization [facility] Medical Group Address [address] [facility] [address] [place] [address] Care Team Providers Care Drier Tender Name Role Phone Christine Kendall MD Unavailable [phone] Sita Magana MD Unavailable [phone] Nabila King MD Primary Care Provider + [phone] Regulo Pandey MD Unavailable Gigi Méndez MD Unavailable [phone] Bc Martinez MD Unavailable [phone] Encounter Details Date Type Department Care Team (Late st Contact Info) Description 07/04/2022 12:00 PM FASHION MODEL [facility] [address] [place] [address] 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 [address] [place] [address] PCP - General Internal Medicine 12/16/20 Christine Kendall MD Surgeon Ophthalmology 12/13/20 Sita Magana MD [address] [facility] [address] [place] [address] Consulting Physician Internal Medicine 12/13/20 Regulo Pandey MD [address] [facility] [address] [place] [address] Referring Physician Cardiovascular Disease 12/16/20 Gigi Méndez MD [address] [place] [address] [address] [place] [address] Referring Physician Cardiology 02/18/21 Bc Martinez MD [facility] [place] [address] Consulting Physician Cardiology 10/22/21 08/21/23 documented as of this encounter
--- OUTSIDE RECORDS SUMMARY | 2024-08-09 20:25 | XMS_ITS | Encounter Summary ---
Author Organization [facility] Address [address] [place] [address] Phone Care Team Providers Care Certified Maintenance Welder Name Role Phone Christine Kendall MD Unavailable [phone] Sita Magana MD Unavailable [phone] Nabila King MD Primary Care Provider Regulo Pandey MD Unavailable Gigi Méndez MD Unavailable [phone] Bc Martinez MD Unavailable [phone] Encounter Details Date Type Department Care Team (Late st Contact Info) Description 02/02/2022 Orders Only [facility] [address] [place] [address] Scanning, Provider Social History Tobacco [...] on file Legal Sex Female 8:14 PM CYBER 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 Gender Identity Not on file Sexual [...] filedocumented in this encounter Care Teams Certified Maintenance Welder Relationship Specialty Start Date End Date Nabila King MD [address] [facility] [address] [place] [address] PCP - General Internal Medicine 12/16/20 Christine Kendall MD Surgeon Ophthalmology 12/13/20 Sita Magana MD [address] [facility] [address] [place] [address] Consulting Physician Internal Medicine 12/13/20 Regulo Pandey MD [address] [facility] [address] [place] [address] Referring Physician Cardiovascular Disease 12/16/20 Gigi Méndez MD [address] [facility] [address] [place] [address] Referring Physician Cardiology 02/18/21 Bc Martinez MD [address] [place] [address] Consulting Physician Cardiology 10/22/21 08/21/23 documented as of this encounter
--- OUTSIDE RECORDS SUMMARY | 2024-08-09 20:25 | XMS_ITS | Encounter Summary ---
Author Organization [facility] Address [address] [place] [address] Phone Care Team Providers Care Limousine Driver Name Role Phone FaizaChristine MD Unavailable [phone] Sita Magana MD Unavailable [phone] Nabila King MD Primary Care Provider Regulo Pandey MD Unavailable [facility] MD Unavailable [phone] Bc Martinez MD Unavailable [phone] Bc Martinez MD Unavailable [phone] Martin Correa MD Unavailable [phone] [facility], [facility] Unavailable Encounter Details Date Type Department Care Team (Late st Contact Info) Description 09/22/2022 Orders Only [facility] [address] [place] [address] Scanning, Provider Social History Tobacco [...] on file Legal Sex Female 8:14 PM EARLY INTERVENTION SPECIALIST Gender Identity Not on file Sexual [...] on filedocumented in this encounter Care Teams Limousine Driver Relationship Specialty Start Date End Date Nabila King MD [address] [place] [address] [address] [place] [address] PCP - General Internal Medicine 12/16/20 Christine Kendall MD Surgeon Ophthalmology 12/13/20 Sita Magana MD [address] [place] [address] [address] [place] [address] Consulting Physician Internal Medicine 12/13/20 Regulo Pandey MD [address] [place] [address] [address] [place] [address] Referring Physician Cardiovascular Disease 12/16/20 Gigi Méndez MD [address] [place] [address] [address] [place] [address] Referring Physician Cardiology 02/18/21 Bc Martinez MD [facility] [place] [address] Consulting Physician Cardiology 10/22/21 08/21/23 Bc Martinez MD [address] [place] [address] Referring Physician Cardiology 08/22/23 Martin Correa MD [address] [place] [address] Consulting Physician Cardiothoracic Surgery 08/22/23 [facility], Gildardo Gomez MD [facility] [place] [address] Consulting Physician Neurology 07/09/24 documented as of this encounter
--- OUTSIDE RECORDS SUMMARY | 2024-08-09 20:25 | XMS_ITS | Encounter Summary ---
Author Organization [facility] Healthcare Address [address] [place] [address] Care Team Providers Care Bindery Assistant Name Role Phone Christine Kendall MD Unavailable [phone] Sita Magana MD Unavailable [phone] Nabila King MD Primary Care Provider [phone] Regulo Pandey MD Unavailable Gigi Méndez MD Unavailable [phone] Bc Martinez MD Unavailable [phone] Encounter Details Date Type Department Care Team (Latest Contact Info) Description 07/04/2022 11:48 AM MBA INTERN - 07/04/2022 11:59 PM MBA INTERN Hospital Encounter [address] [id number] Sick sinus syndrome (CMS/HCC) (HCC); Hypothyroidism due [...] on file Legal Sex Female 8:14 PM MBA INTERN Gender Identity Not on file Sexual [...] Diagnosis Comments EGFR Routine 07/04/2022 11:48 AM MBA INTERN Sick sinus syndrome (CMS/HCC) (HCC) TSH Routine 07/04/2022 11:48 AM MBA INTERN 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 73 m2 FRANKIE [...] reviewed 2021. Blood 07/04/2022 11:4 8 AM MBA INTERN 07/04/2022 7:16 PM MBA INTERN us Nabila King MD LAB BLOOD ORDERABLES Final Result Performing Organization Address [facility] de Phone Number [facility] [address] [place] [address] * T4, free (07/04/2022 11:48 AM MBA INTERN) Free T4 1.22 0.90 - 1.70 ng/dL [facility] Blood 07/04/2022 11:4 8 AM MBA INTERN 07/04/2022 7:06 PM MBA INTERN us Nabila King MD LAB BLOOD ORDERABLES Final Result Performing Organization Address [facility] de Phone Number [facility]ANK[facility] [address] [place] [place] [address] * TSH (07/04/2022 11:48 AM MBA INTERN) Thyroid Stimulating Hormone 1.77 0.30 - 4.20 mcIUnit/mL [facility] Blood 07/04/2022 11:4 8 AM MBA INTERN 07/04/2022 7:06 PM MBA INTERN us Nabila King MD LAB BLOOD ORDERABLES Final Result Performing Organization Address [facility] de Phone Number [facility] [address] [facility] [place] [address] * Cholesterol, LDL, direct (07/04/2022 11:48 AM MBA INTERN) LDL Cholesterol, Direct 116 <=129 mg/dL [facility] Comment: Interpretive Data Ages < or = [...] on 2018. Blood 07/04/2022 11:4 8 AM MBA INTERN 07/04/2022 7:06 PM MBA INTERN us Nabila King MD LAB BLOOD ORDERABLES Final Result Performing Organization Address [facility] Co de Phone Number [facility] [address] 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 documented in this encounter Care Teams Bindery Assistant Relationship Specialty Start Date End Date Nabila King MD [address] [place] [address] PCP - General Internal Medicine 12/16/20 Christine Kendall MD Surgeon Ophthalmology 12/13/20 Sita Magana MD [address] [place] [address] Consulting Physician Internal Medicine 12/13/20 Regulo Pandey MD [address] [place] [address] Referring Physician Cardiovascular Disease 12/16/20 Gigi Méndez MD [address] [place] [address] Referring Physician Cardiology 02/18/21 Bc Martinez MD [address] [place] [address] Consulting Physician Cardiology 10/22/21 08/21/23 documented as of this encounter
--- OUTSIDE RECORDS SUMMARY | 2024-08-09 20:25 | XMS_ITS | Encounter Summary ---
Author Organization [facility] Address [address] [place] [address] Phone Care Team Providers Care Pastoral Ministries Professor Name Role Phone Christine Kendall MD Unavailable [phone] Sita Magana MD Unavailable [phone] Nabila King MD Primary Care Provider [phone] Regulo Pandey MD Unavailable Gigi Méndez MD Unavailable [phone] Bc Martinez MD Unavailable [phone] Encounter Details Date Type Department Care Team (Late st Contact Info) Description 03/16/[address] [facility] Ophthalmology 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 I could not leave a message because no machine came on to let me do that. I left a message for her daughter to letthe patient know where to come Monday for the appointment. documented in this encounter Plan of Treatment Not on file documented as of this encounter Visit Diagnoses Not on filedocumented in this encounter Care Teams Pastoral Ministries Professor Relationship Specialty Start Date End Date Nabila King MD [address] [facility] [address] [place] [address] PCP - General Internal Medicine 12/16/20 Christine Kendall MD Surgeon Ophthalmology 12/13/20 Sita Magana MD [address] [facility] [address] [place] [address] Consulting Physician Internal Medicine 12/13/20 Regulo Pandey MD [address] [place] [address] Referring Physician Cardiovascular Disease 12/16/20 Gigi Méndez MD [address] [facility] [address] [place] [address] Referring Physician Cardiology 02/18/21 Bc Martinez MD [address] [place] [address] Consulting Physician Cardiology 10/22/21 08/21/23 documented as of this encounter
--- OUTSIDE RECORDS SUMMARY | 2024-08-09 20:25 | XMS_ITS | Encounter Summary ---
Author Organization [facility] Address [address] [place] [address] Phone Care Team Providers Care Dinkey Engineer Name Role Phone Christine Kendall MD Unavailable [phone] Sita Magana MD Unavailable [phone] Nabila King MD Primary Care Provider [phone] Regulo Pandey MD Unavailable Gigi Méndez MD Unavailable [phone] Bc Martinez MD Unavailable [phone] Encounter Details Date Type Department Care Team (Late st Contact Info) Description 03/18/2022 10:30 AM CDT Office Visit [facility] [address] 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 Gender Identity Not on file Sexual [...] Assessment & Plan: Recommend MRx with local client solutions specialist Nuclear senile cataract, right Assessment & Plan: [...] Pseudophakia (Resolved 04/10/2022) Recommend MRx with local client solutions specialist * Assessment & Plan Note - Christine [...] rhage C/D Ratio 1.0 0.95 Care Teams Dinkey Engineer Relationship Specialty Start Date End Date Nabila King MD [address] [facility] [place] [address] PCP - General Internal Medicine 12/16/20 Christine Kendall MD Surgeon Ophthalmology 12/13/20 Sita Magana MD [address] [place] [address] [address] [place] [address] Consulting Physician Internal Medicine 12/13/20 Regulo Pandey MD [address] [place] [address] [address] [place] [address] Referring Physician Cardiovascular Disease 12/16/20 Gigi Méndez MD [address] [place] [address] [address] [place] [address] Referring Physician Cardiology 02/18/21 Bc Martinez MD [address] [place] [address] Consulting Physician Cardiology 10/22/21 08/21/23 documented as of this encounter
--- OUTSIDE RECORDS SUMMARY | 2024-08-09 20:25 | XMS_ITS | Encounter Summary ---
Author Organization [facility] Medical [facility] Address [address] [facility] [address] [place] [address] Care Team Providers Care Instructor Ground Services Name Role Phone Christine Kendall MD Unavailable [phone] Sita Magana MD Unavailable [phone] Nabila King MD Primary Care Provider + [phone] Regulo Pandey MD Unavailable Gigi Méndez MD Unavailable [phone] Bc Martinez MD Unavailable [phone] Reason for Visit * Reason Comments Follow-up Encounter Details Date Type Department Care Team (Latest Contact Info) Description 04/15/2022 2:00 PM CDT Office Visit [facility] [address] [place] [phone] Elizabeth Daniels, REGIONAL FACILITIES SPECIALIST [address] [place] [address] Neuroforaminal stenosis of lumbar spine (Primary Dx); [...] on file 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 She recently started turmeric and resident care technician last week along with stretching exercises. I [...] THIS VISIT Current Outpatient Medications Ordered in [facility] Medication Sig Dispense Refill ??? apixaban (ELIQUIS) [...] by mouth nightly 90 tablet1 No current [facility]-ordered facility-administered medications on file. ALLERGIES is allergic to clarithromycin, mastisol adhesive [gum aawlzf-vuvsge-ohot-alcohol], metronidazole, other, sulfa (sulfonamide antibiotics), and chloramphenicol. [...] normal reflexes. She recently started turmeric and resident care technician last week along with stretching exercises. I [...] documented as of this encounter Care Teams Instructor Ground Services Relationship Specialty Start Date End Date Nabila King MD [address] [facility] [address] [place] [address] PCP - General Internal Medicine 12/16/20 Christine Kendall MD Surgeon Ophthalmology 12/13/20 Sita Magana MD [address] [facility] [address] [place] [address] Consulting Physician Internal Medicine 12/13/20 Regulo Pandey MD [address] [place] [address] [address] [place] [address] Referring Physician Cardiovascular Disease 12/16/20 Gigi Méndez MD [address] [place] [address] [address] [place] [address] Referring Physician Cardiology 02/18/21 Bc Martinez MD [address] [place] [address] Consulting Physician Cardiology 10/22/21 08/21/23 documented as of this encounter
--- OUTSIDE RECORDS SUMMARY | 2024-08-09 20:25 | XMS_ITS | Encounter Summary ---
Author Organization [facility] Address [address] [facility] [address] [place] [address] Care Team Providers Care Bilingual Operator Name Role Phone Christine Kendall MD Unavailable [phone] Sita Magana MD Unavailable [phone] Nabila King MD Primary Care Provider [phone] Reuglo Pandey MD Unavailable Gigi Méndez MD Unavailable [phone] Bc Martinez MD Unavailable [phone] Reason for Visit * Diagnostic Imaging (Routine) - Closed Specialty Diagnoses / Procedures Referred By John t Referred To Contact Diagnoses Chronic bilateral low back pain with left-sided sciatica Procedures XR Spine Lumbar Complete 4 Or More [place], Elizabeth Josue, SMART ENERGY SPECIALIST [address] [place] [address] Phone: tel: [facility] Referral ID Status Reason Start Date Expiration Date Visits Re quested Visits Authorized [id number] Closed 03/02/2022 04/01/2023 1 1 Encounter Details Date Type Department Care Team (Latest Contact Info) Description 03/02/2022 10:15 AM CDT Ancillary Procedure [facility] [address] [place] [id number] Chronic bilateral low back pain with [...] on file 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 Elizabeth Daniels SMART ENERGY SPECIALIST IMG XR PROCEDURES Final Result documented in this encounter Visit Diagnoses Diagnosis Chronic bilateral low back pain with left-sided sciatica documented in this encounter Care Teams Bilingual Operator Relationship Specialty Start Date End Date Nabila King MD [address] [place] [address] [address] [place] [address] PCP - General Internal Medicine 12/16/20 Christine Kendall MD Surgeon Ophthalmology 12/13/20 Sita Magana MD [address] [facility] [address] [place] [address] Consulting Physician Internal Medicine 12/13/20 Regulo Pandey MD [address] [facility] [address] [place] [address] Referring Physician Cardiovascular Disease 12/16/20 Gigi Méndez MD [address] [place] [address] [address] [place] [address] Referring Physician Cardiology 02/18/21 Bc Martinez MD [address] [place] [address] Consulting Physician Cardiology 10/22/21 08/21/23 documented as of this encounter
--- OUTSIDE RECORDS SUMMARY | 2024-08-09 20:25 | XMS_ITS | Encounter Summary ---
Author Organization [facility] Address [address] [facility] [address] [place] [address] Care Team Providers Care Sorority Mother Name Role Phone Christine Kendall MD Unavailable [phone] Sita Magana MD Unavailable [phone] Nabila King MD Primary Care Provider + [phone] Regulo Pandey MD Unavailable Gigi Méndez MD Unavailable [phone] Bc Martinez MD Unavailable [phone] Encounter Details Date Type Department Care Team (Late st Contact Info) Description 03/02/2022 Telephone [facility] [address] [place] [address] Elizabeth Daniels, SHERIFF [address] [place] [address] Social History Tobacco Use Types [...] on file 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 Gender Identity Not on file Sexual Orientation Not on file 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 Not on file documented as of this encounter Miscellaneous Notes * Telephone Encounter - Eliu Reynolds RN - 03/02/2022 3:30 PM CDT Spoke to pt et informed of below SHERIFF result message Pt voices understand et has [...] on filedocumented in this encounter Care Teams Sorority Mother Relationship Specialty Start Date End Date Nabila King MD [address] [place] [address] [address] [place] [address] PCP - General Internal Medicine 12/16/20 Christine Kendall MD Surgeon Ophthalmology 12/13/20 Sita Magana MD [address] [place] [address] Consulting Physician Internal Medicine 12/13/20 Regulo Pandey MD [address] [facility] [address] [place] [address] Referring Physician Cardiovascular Disease 12/16/20 Gigi Méndez MD [address] [facility] [address] [place] [address] Referring Physician Cardiology 02/18/21 Bc Martinez MD [address] [place] [address] Consulting Physician Cardiology 10/22/21 08/21/23 documented as of this encounter
--- OUTSIDE RECORDS SUMMARY | 2024-08-09 20:25 | XMS_ITS | Encounter Summary ---
Author Organization [facility] Address [address] [facility] [address] [place] [address] Care Team Providers Care Brood Station Manager Name Role Phone Christine Kendall MD Unavailable [phone] Sita Magana MD Unavailable [phone] Nabila King MD Primary Care Provider [phone] Regulo Pandey MD Unavailable Gigi Méndez MD Unavailable [phone] Bc Martinez MD Unavailable [phone] Reason for Referral * Diagnostic Imaging (Routine) - Closed Specialty Diagnoses / Procedures Referred By John t Referred To Contact Diagnoses Senile osteoporosis Procedures Dexa Axial Skeleton Bone Density 1 or 2 Site Nabila King MD [address] [place] [address] Phone: tel: fax: [facility] (All Locations) Referral ID Status Reason Start Date Expiration Date Visits Re quested Visits Authorized [id number] Closed 11/15/2022 12/15/2023 1 1 Encounter Details Date Type Department Care Team (Late st Contact Info) Description 11/15/2022 Telephone [facility] [address] [place] [id number] Nabila King MD [address] [place] [address] Social History Tobacco Use Types Packs/Day Years [...] on file 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 ?? Based on machine cross-calibration [...] by the International Society of Clinical Densitometry. [id number] Nabila King MD IMG DXA PROCEDURES Final R esult documented in this encounter Visit Diagnoses Diagnosis Senile osteoporosis- Primary Osteopenia of multiple sites- Primary Senile osteoporosis Postmenopause Asymptomatic postmenopausal status (age-related) (natural) documented in this encounter Care Teams Brood Station Manager Relationship Specialty Start Date End Date Nabila King MD [address] [facility] [address] [place] [address] PCP - General Internal Medicine 12/16/20 Christine Kendall MD Surgeon Ophthalmology 12/13/20 Sita Magana MD [address] [facility] [address] [place] [address] Consulting Physician Internal Medicine 12/13/20 Regulo Pandey MD [address] [place] [address] [address] [place] [address] Referring Physician Cardiovascular Disease 12/16/20 Gigi Méndez MD [address] [place] [address] [address] [place] [address] Referring Physician Cardiology 02/18/21 Bc Martinez MD [address] [place] [address] Consulting Physician Cardiology 10/22/21 08/21/23 documented as of this encounter
--- OUTSIDE RECORDS SUMMARY | 2024-08-09 20:25 | XMS_ITS | Encounter Summary ---
Author Organization [facility] Address [address] [place] [address] Phone Care Team Providers Care Ballet Company Member Name Role Phone FaizaChristine MD Unavailable [phone] Sita Magana MD Unavailable [phone] Nabila King MD Primary Care Provider [phone]- [phone] Regulo Pandey MD Unavailable Gigi Méndez MD Unavailable [phone] Bc Martinez MD Unavailable [phone] Encounter Details Date Type Department Care Team (Late st Contact Info) Description 09/09/2022 Orders Only [facility] [address] [place] [address] Nabila King MD [address] [place] [address] Social History Tobacco Use Types Packs/Day Years [...] file 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 Gender Identity Not on file Sexual [...] on filedocumented in this encounter Care Teams Ballet Company Member Relationship Specialty Start Date End Date Nabila King MD [address] [facility] [address] [place] [address] PCP - General Internal Medicine 12/16/20 Christine Kendall MD Surgeon Ophthalmology 12/13/20 Sita Magana MD [address] [place] [address] [address] [place] [address] Consulting Physician Internal Medicine 12/13/20 Regulo Pandey MD [address] [place] [address] [address] [place] [address] Referring Physician Cardiovascular Disease 12/16/20 Gigi Méndez MD [address] [place] [address] [address] [place] [address] Referring Physician Cardiology 02/18/21 Bc Martinez MD [address] [place] [address] Consulting Physician Cardiology 10/22/21 08/21/23 documented as of this encounter
--- OUTSIDE RECORDS SUMMARY | 2024-08-09 20:25 | XMS_ITS | Encounter Summary ---
Author Organization [facility] Address [address] [place] [address] Phone Care Team Providers Care Cardiac Sonographer Name Role Phone Christine Kendall MD Unavailable [phone] Sita Magana MD Unavailable [phone] Nabila King MD Primary Care Provider [phone] Regulo Pandey MD Unavailable Gigi Méndez MD Unavailable [phone] Bc Martinez MD Unavailable [phone] Reason for Visit * Reason Comments Glaucoma Encounter Details Date Type Department Care Team (Late st Contact Info) Description 11/14/2022 10:00 AM CDT Office Visit [facility] Ophthalmology 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 Gender Identity Not on file Sexual Orientation [...] Normal Normal Periphery Normal Normal Care Teams Cardiac Sonographer Relationship Specialty Start Date End Date Nabila King MD [address] [place] [address] [address] [place] [address] PCP - General Internal Medicine 12/16/20 Christine Kendall MD Surgeon Ophthalmology 12/13/20 Sita Magana MD [address] [place] [address] [address] [place] [address] Consulting Physician Internal Medicine 12/13/20 Regulo Pandey MD [address] [place] [address] Referring Physician Cardiovascular Disease 12/16/20 Gigi Méndez MD [address] [facility] [address] [place] [address] Referring Physician Cardiology 02/18/21 Bc Martinez MD [address] [place] [address] Consulting Physician Cardiology 10/22/21 08/21/23 documented as of this encounter
--- OUTSIDE RECORDS SUMMARY | 2024-08-09 20:26 | XMS_ITS | Encounter Summary ---
Author Organization [facility] Address [address] [place] [address] Phone Care Team Providers Care Certified Marine Mechanic Name Role Phone FaizaChristine MD Unavailable [phone] Sita Magana MD Unavailable [phone] Nabila King MD Primary Care Provider [phone]- [phone] Regulo Pandey MD Unavailable Gigi Méndez MD Unavailable [phone] Bc Martinez MD Unavailable [phone] Encounter Details Date Type Department Care Team (Late st Contact Info) Description 11/13/2021 Orders Only [facility] [address] [place] [address] Nabila King MD [address] [place] [address] Social History Tobacco Use Types Packs/Day Years [...] on file 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 Gender Identity Not on file Sexual [...] filedocumented in this encounter Care Teams Certified Marine Mechanic Relationship Specialty Start Date End Date Nabila King MD [address] [facility] [address] [place] [address] PCP - General Internal Medicine 12/16/20 Christine Kendall MD Surgeon Ophthalmology 12/13/20 Sita Magana MD [address] [facility] [address] [place] [address] Consulting Physician Internal Medicine 12/13/20 Regulo Pandey MD [address] [place] [place] [address] Referring Physician Cardiovascular Disease 12/16/20 Gigi Méndez MD [address] [facility] [address] [place] [address] Referring Physician Cardiology 02/18/21 Bc Martinez MD [address] [place] [address] Consulting Physician Cardiology 10/22/21 08/21/23 documented as of this encounter
--- OUTSIDE RECORDS SUMMARY | 2024-08-09 20:26 | XMS_ITS | Encounter Summary ---
Author Organization [facility] Address [address] [facility] [address] [place] [address] Care Team Providers Care Floor Clerk Name Role Phone Christine Kendall MD Unavailable [phone] Sita Magana MD Unavailable [phone] Nabila King MD Primary Care Provider + [phone] Regulo Pandey MD Unavailable Gigi Méndez MD Unavailable [phone] Bc Martinez MD Unavailable [phone] Reason for Visit * Reason Comments Follow-up 2 week Encounter Details Date Type Department Care Team (Late st Contact Info) Description 12/14/2021 11:40 AM CDT Office Visit [facility] [address] [place] [address] Nabila King MD [address] [place] [address] Presence of cardiac pacemaker (Primary Dx); Paroxysmal [...] on file 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 Paroxysmal A-fib ([facility]) ([facility]) 427.31 I48.0 3. SVT (supraventricular tachycardia) ([facility]) ([facility]) 427.89 I47.1 4. Gastroesophageal reflux disease, unspecified [...] ZOSTER Recombinant 02/02/2018, 05/03/2018 Primary Pharmacy/DME suppliers: [facility] [address] [place] [address] [address] [facility] [address] [facility] [address] PLEASE BRING IN ALL PILL BOTTLES TO EVERY OFFICE VISIT, THIS IS ESSENTIAL FOR ACCURATE REFILLS AND MAINTAINING AN ACCURATE MEDICATION LIST. PLEASE SIGN UP FOR MyCHART so that you may have access to your labs and chart documentation IF YOU HAVE TROUBLE WITH THIS PROCESS CALL [phone] documented in this encounter Progress Notes * [...] aerobic exercise, I recommend walking, step machine head animal trainer, recumbent bike,avoid the treadmill Resume the [...] cardiac pacemaker V45.01 Z95.0 2. Paroxysmal A-fib ([facility]) ([facility]) 427.31 I48.0 3. SVT (supraventricular tachycardia) ([facility]) ([facility]) 427.89 I47.1 4. Gastroesophageal reflux disease, unspecified [...] ZOSTER Recombinant 02/02/2018, 05/03/2018 Primary Pharmacy/DME suppliers: [facility] [address] [employer], [place] - [address] [employer] [address] [place] [address] PLEASE BRING IN ALL PILL BOTTLES TO EVERY OFFICE VISIT, THIS IS ESSENTIAL FOR ACCURATE REFILLS AND MAINTAINING AN ACCURATE MEDICATION LIST. PLEASE SIGN UP FOR MedAvail so that you may have access to your labs and chart documentation IF YOU HAVE TROUBLE WITH THIS PROCESS CALL [phone] CHIEF COMPLAINT Follow-up (2 week) HISTORY OF [...] cardiac pacemaker 2. SVT (supraventricular tachycardia) (CMS/HCC) ([facility]) 4. Paroxysmal A-fib (CMS/HCC) ([facility]) 3. Gastroesophageal reflux disease, unspecified whether esophagitis [...] THIS VISIT Current Outpatient Medications Ordered in [facility] Medication Sig Dispense Refill ??? aspirin 81 [...] Acute on chronic diastolic heart failure (CMS/HCC) ([facility]) I50.33 ??? Ventricular septal defect (VSD) Q21.0 ??? 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 Palpitation R00.2 ??? History of hematuria Z87.448 ??? ASVD (arteriosclerotic vascular disease) I70.90 ??? History of adenomatous polyp of colon Z86.010 ??? 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 Urinary frequency R35.0 ??? Other atopic dermatitis L20.89 ??? Hospital discharge follow-up Z09 ??? SVT (supraventricular tachycardia) (CMS/HCC) ([facility]) I47.1 ??? Paroxysmal A-fib (CMS/HCC) ([facility]) I48.0 ??? History of Helicobacter pylori infection Z86.19 ??? 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 Adjustment disorder with anxiety F43.22 ??? 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 Dizziness R42 ??? Alan's thyroiditis E06.3 ??? Sick sinus syndrome (CMS/HCC) ([facility]) I49.5 ??? Presence of cardiac pacemaker Z95.0 Nabila King M.D. documented in this encounter Plan of Treatment Not on file documented as of this encounter Visit Diagnoses Diagnosis Presence of cardiac pacemaker- Primary Cardiac pacemaker in situ Paroxysmal A-fib (CMS/HCC) ([facility]) SVT (supraventricular tachycardia) ([facility]) Other specified cardiac dysrhythmias Gastroesophageal reflux disease, unspecified whether esophagitis present documented in this encounter Discontinued Medications Medication Sig Discontinue Reason Start Date End Da te pantoprazole DR (PROTONIX) 20 mg EC tabletIndications:Gastroe sophageal reflux disease, unspecified whether esophagitis present Take 1 tablet (20 mg total) by mouth daily Therapy completed 11/24/2021 12/14/2021 documented as of this encounter Care Teams Floor Clerk Relationship Specialty Start Date End Date Nabila King MD [address] [facility] [address] [place] [address] PCP - General Internal Medicine 12/16/20 Christine Kendall MD Surgeon Ophthalmology 12/13/20 Sita Magana MD [address] [facility] [address] [place] [address] Consulting Physician Internal Medicine 12/13/20 Regulo Pandey MD [address] [facility] [address] [place] [address] Referring Physician Cardiovascular Disease 12/16/20 Gigi Méndez MD [address] [facility] [address] [place] [address] Referring Physician Cardiology 02/18/21 Bc Martinez MD [address] [place] [address] Consulting Physician Cardiology 10/22/21 08/21/23 documented as of this encounter
--- OUTSIDE RECORDS SUMMARY | 2024-08-09 20:26 | XMS_ITS | Encounter Summary ---
Author Organization [facility] Address [address] [facility] [address] [place] [address] Care Team Providers Care Mba Internship Name Role Phone Christine Kendall MD Unavailable [phone] Sita Magana MD Unavailable [phone] Nabila King MD Primary Care Provider + [phone] Regulo Pandey MD Unavailable Gigi Méndez MD Unavailable [phone] Bc Martinez MD Unavailable [phone] Reason for Visit * Reason Comments Follow-up 1 mo Encounter Details Date Type Department Care Team (Late st Contact Info) Description 11/24/2021 1:40 PM CDT Office Visit [facility] [address] [place] [address] Nabila King MD [address] [place] [address] Paroxysmal A-fib (CMS/HCC) (HCC) (Primary Dx); Pacemaker; [...] on file 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 PLEASE SIGN UP FOR [email or web address] so that you may have access to your labs and chart documentation IF YOU HAVE TROUBLE WITH THIS PROCESS CALL [phone] CHANGES FOR YOUR SLEEPING TROUBLE 1. Wake [...] the activities that are on your list. [place] this work for the next day. 6. [...] dilTIAZem (CARDIZEM) 60 mg tabletIndications: Paroxysmal A-fib (CMS/[facility]) ([facility]),Palpitation Take 1 tablet (60 mg total) by [...] ZOSTER Recombinant 02/02/2018, 05/03/2018 Primary Pharmacy/DME suppliers: [facility] [place], [place] - [address] [facility] [address] [facility] [address] PLEASE BRING IN ALL PILL BOTTLES TO EVERY OFFICE VISIT, THIS IS ESSENTIAL FOR ACCURATE REFILLS AND MAINTAINING AN ACCURATE MEDICATION LIST. PLEASE SIGN UP FOR MyCHART so that you may have access to your labs and chart documentation IF YOU HAVE TROUBLE WITH THIS PROCESS CALL [phone] CHANGES FOR YOUR SLEEPING TROUBLE 1. Wake [...] the activities that are on your list. [place] this work for the next day. 6. [...] Current Outpatient Medications Ordered in [facility] Medication Sig Dispense Refill ??? aspirin 81 [...] by mouth daily 30 tablet0 No current [facility]-ordered facility-administered medications on file. ALLERGIES is allergic [...] thyroiditis E06.3 ??? Sick sinus syndrome (CMS/HCC) ([facility]) I49.5 ??? Presence of cardiac pacemaker Z95.0 Nabila King M.D. documented in this encounter Plan of Treatment Not on file documented as of this encounter Visit Diagnoses Diagnosis Paroxysmal A-fib (CMS/HCC) ([facility])- Primary Pacemaker Cardiac pacemaker in situ Palpitation [...] 03/02/2022 added in this encounter Care Teams Mba Internship Relationship Specialty Start Date End Date Nabila King MD [address] [facility] [address] [address] PCP - General Internal Medicine 12/16/20 Christine Kendall MD Surgeon Ophthalmology 12/13/20 Sita Magana MD [address] [facility] [address] [place] [address] Consulting Physician Internal Medicine 12/13/20 Regulo Pandey MD [address] [facility] [address] [place] [address] Referring Physician Cardiovascular Disease 12/16/20 Gigi Méndez MD [address] [facility] [address] [place] [address] Referring Physician Cardiology 02/18/21 Bc Martinez MD [address] [place] [address] Consulting Physician Cardiology 10/22/21 08/21/23 documented as of this encounter
--- OUTSIDE RECORDS SUMMARY | 2024-08-09 20:27 | XMS_ITS | Encounter Summary ---
Author Organization [facility] Address [address] [facility] [address] [place] [address] Care Team Providers Care Assistant Banquet Manager Name Role Phone Christine Kendall MD Unavailable [phone] Sita Magana MD Unavailable [phone] Nabila King MD Primary Care Provider + [phone] Regulo Pandey MD Unavailable Gigi Méndez MD Unavailable [phone] Encounter Details Date Type Department Care Team (Late st Contact Info) Description 05/21/2021 Telephone [facility] [address] [place] [address] Elizabeth Daniels, TANNING CONSULTANT [address] [place] [address] Social History Tobacco Use Types [...] file 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 [address] [place] [address] PCP - General Internal Medicine 12/16/20 Christine Kendall MD Surgeon Ophthalmology 12/13/20 Sita Magana MD [address] [facility] [address] [place] [address] Consulting Physician Internal Medicine 12/13/20 Regulo Pandey MD [address] [place] [address] [address] [place] [address] Referring Physician Cardiovascular Disease 12/16/20 Giig Méndez MD [address] [facility] [address] [place] [address] Referring Physician Cardiology 02/18/21 documented as of this encounter
--- OUTSIDE RECORDS SUMMARY | 2024-08-09 20:27 | XMS_ITS | Encounter Summary ---
Author Organization [facility] Healthcare Address [address] [place] [address] Care Team Providers Care Library Sales Consultant Name Role Phone Christine Kendall MD Unavailable [phone] Sita Magana MD Unavailable [phone] Nabila King MD Primary Care Provider [phone] Regulo Pandey MD Unavailable Gigi Méndez MD Unavailable [phone] Encounter Details Date Type Department Care Team (Late st Contact Info) Description 05/21/2021 12:50 PM CDT Lab [facility] [address] [place] [address] Dizziness Social History Tobacco Use [...] file 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 Gender Identity Not on file Sexual Orientation [...] Final Result Performing Organization Address [facility] Co de Phone Number FRANKIE [address] [address] [facility] [place] [address] * (ABNORMAL) TSH reflex to free T4 (05/21/2021 10:17 AM CDT) Pathologist [facility] TSH 0.11(L) 0.30 - 4.20 mcIUnit/mL [facility] Blood 05/21/2021 10:1 7 AM CDT 05/21/2021 12:56 PM CDT Elizabeth Daniels NP LAB BLOOD ORDERABL ES Final Result Performing Organization Address [facility] Co de Phone Number [facility] [address] [address] [facility] [place] [address] * Urinalysis reflex to microscopic and culture [...] [facility] Urobilinogen, ur <2.0 <2.0 mg/dL [facility] Nitrite, ur Negative Negative [facility] Leukocyte esterase, ur Negative Negative [facility] UA reflex comment Reflex conditions for microscopic UA and culture not met. [facility] Urine, clean voided 05/21/2021 10:17 AM CDT [...] tendency for uric acid stone formation. Source: [place] [employer]. Last revised 08-31-2017 Elizabeth Daniels NP LAB MICROBIOLOGY - GENERAL ORDERABLES Final Result Performing Organization Address City/State/[facility] Co de Phone Number [facility] [address] Department [place] [address] documented in this encounter Visit Diagnoses Diagnosis Dizziness Dizziness and giddiness documented in this encounter Care Teams Library Sales Consultant Relationship Specialty Start Date End Date Nabila King MD [address] [place] [address] [address] [place] [address] PCP - General Internal Medicine 12/16/20 Christine Kendall MD Surgeon Ophthalmology 12/13/20 Sita Magana MD [address] [place] [address] Consulting Physician Internal Medicine 12/13/20 Regulo Pandey MD [address] [facility] [address] [place] [address] Referring Physician Cardiovascular Disease 12/16/20 Gigi Méndez MD [address] [facility] [address] [address] Referring Physician Cardiology 02/18/21 documented as of this encounter
--- OUTSIDE RECORDS SUMMARY | 2024-08-09 20:27 | XMS_ITS | Encounter Summary ---
Author Organization [facility] Address [address] [place] [address] Phone Care Team Providers Care Circle Beveler Name Role Phone Christine Kendall MD Unavailable [phone] Sita Magana MD Unavailable [phone] Nabila King MD Primary Care Provider [phone] Regulo Pandey MD Unavailable Gigi Méndez MD Unavailable [phone] Encounter Details Date Type Department Care Team (Late st Contact Info) Description 09/20/2021 11:15 AM LOCAL COORDINATOR [facility] [address] [facility] [address] [place] [address] Christine Kendall MD [address] [facility] [address] DEPT OPHTHALMOLOGY, [facility] [address] [place], [place] [id number] Low-tension glaucoma, bilateral, severe stage (Primary Dx); [...] on file Legal Sex Female 8:14 PM LOCAL COORDINATOR Gender Identity Not on file Sexual Orientation Not on file 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 L COORDINATOR documented in this encounter Ordered Prescriptions Prescription [...] both eyes 3 (three) times a day L COORDINATOR documented in this encounter Miscellaneous Notes * Assessment & Plan Note - Christine Kendall MD - 09/20/2021 6:46 PM LOCAL COORDINATOR Associated Problem(s): Low-tension glaucoma, bilateral, severe stage intraocular pressure (IOP) acceptable off meds status post (s/p) Trab both eyes (OU) F/U 6 months with Dyer visual field (HVF) 24-2 L COORDINATOR * Assessment & Plan Note - Christine Kendall MD - 09/20/2021 12:48 PM LOCAL COORDINATOR Associated Problem(s): Age-related nuclear cataract of right eye Not VS- observe L COORDINATOR documented in this encounter Plan of Treatment [...] Normal Normal Periphery Normal Normal Care Teams Circle Beveler Relationship Specialty Start Date End Date Nabila King MD [address] [facility] [address] [place] [address] PCP - General Internal Medicine 12/16/20 Christine Kendall MD Surgeon Ophthalmology 12/13/20 Sita Magana MD [address] [facility] [address] [place] [address] Consulting Physician Internal Medicine 12/13/20 Regulo Pandey MD [address] [facility] [address] [place] [address] Referring Physician Cardiovascular Disease 12/16/20 Gigi Méndez MD [address] [facility] [address] [place] [address] Referring Physician Cardiology 02/18/21 documented as of this encounter
--- OUTSIDE RECORDS SUMMARY | 2024-08-09 20:27 | XMS_ITS | Encounter Summary ---
Author Organization [facility] Address [address] [place] [address] Phone Care Team Providers Care Central Office Worker Name Role Phone Christine Kendall MD Unavailable [phone] Sita Magana MD Unavailable [phone] Nabila King MD Primary Care Provider Regulo Pandey MD Unavailable Gigi Méndez MD Unavailable [phone] Encounter Details Date Type Department Care Team (Late st Contact Info) Description 09/16/2021 Orders Only [facility] [address] [place] [address] Nabila King MD [address] [place] [address] Social History Tobacco Use Types [...] on file 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 Gender Identity Not on file Sexual Orientation [...] on filedocumented in this encounter Care Teams Central Office Worker Relationship Specialty Start Date End Date Nabila King MD [address] [facility] [address] [place] [address] PCP - General Internal Medicine 12/16/20 Christine Kendall MD Surgeon Ophthalmology 12/13/20 Sita Magana MD [address] [place] [address] [address] [place] [address] Consulting Physician Internal Medicine 12/13/20 Regulo Pandey MD [address] [place] [address] [address] [place] [address] Referring Physician Cardiovascular Disease 12/16/20 Gigi Méndez MD [address] [place] [address] [address] [place] [address] Referring Physician Cardiology 02/18/21 documented as of this encounter
--- OUTSIDE RECORDS SUMMARY | 2024-08-09 20:27 | XMS_ITS | Encounter Summary ---
Author Organization [facility] Address [address] [facility] [address] [place] [address] Care Team Providers Care Chef Teacher Name Role Phone Christine Kendall MD Unavailable [phone] Sita Magana MD Unavailable [phone] Nabila King MD Primary Care Provider + [phone] Regulo Pandey MD Unavailable Gigi Méndez MD Unavailable [phone] Encounter Details Date Type Department Care Team (Late st Contact Info) Description 05/21/2021 10:20 AM CDT [facility] [address] [place] [address] 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 Social [...] on file 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 Gender Identity Not on file Sexual Orientation Not on file 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 Not on file documented as of this encounter Plan of Treatment Not on file documented as of this encounter Visit Diagnoses Diagnosis 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 documented in this encounter Care Teams Chef Teacher Relationship Specialty Start Date End Date Nabila King MD [address] [facility] [address] [place] [address] PCP - General Internal Medicine 12/16/20 Christine Kendall MD Surgeon Ophthalmology 12/13/20 Sita Magana MD [address] [place] [address] [address] [place] [address] Consulting Physician Internal Medicine 12/13/20 Regulo Pandey MD [address] [place] [address] [address] [place] [address] Referring Physician Cardiovascular Disease 12/16/20 Gigi Méndez MD [address] [place] [address] [address] [place] [address] Referring Physician Cardiology 02/18/21 documented as of this encounter
--- OUTSIDE RECORDS SUMMARY | 2024-08-09 20:27 | XMS_ITS | Encounter Summary ---
Author Organization [facility] Healthcare Address [address] [place] [address] Care Team Providers Care Graphic Art Sales Representative Name Role Phone Christine Kendall MD Unavailable [phone] Sita Magana MD Unavailable [phone] Nabila King MD Primary Care Provider [phone] Regulo Pandey MD Unavailable Gigi Méndez MD Unavailable [phone] Reason for Referral * Cardiology (Routine) - Closed Specialty Diagnoses / Procedures Referred By Contac t Referred To Contact Diagnoses Dizziness Procedures Event Monitor, 30 Day Event Helga Daniels NP Phone: tel: [address] [address] Referral ID Status Reason Start Date Expiration Date Visits Re quested Visits Authorized [id number] Closed 05/21/2021 06/20/2022 1 1 Reason for Visit * Cardiology (Routine) - Closed Specialty Diagnoses / Procedures Referred By Contac t Referred To Contact Diagnoses Dizziness Procedures Event Monitor, 30 Day Event Helga Daniels NP Phone: tel: [address] [address] Referral ID Status Reason Start Date Expiration Date Visits Re quested Visits Authorized [id number] Closed 05/21/2021 06/20/2022 1 1 Encounter Details Date Type Department Care Team (Late st Contact Info) Description 05/27/2021 1:00 PM CDT - 05/27/2021 11:59 PM CDT Hospital Encounter [facility] 1 [place] [address] Nabila King MD [address] [place] [address] Helga Daniels, JASON [address] [place] [address] Dizziness Discharge Disposition: Discharge to home or [...] on file Legal Sex Female 8:14 PM MANAGED CARE DIRECTOR Gender Identity Not on file Sexual [...] Laterality Modality Electrocardiogra phy 06/29/2021 6:00 AM MANAGED CARE DIRECTOR Narrative 07/08/2021 9:51 AM [place] [address] EVENT MONITOR Patient Name: LISA CONN M [...] Signed By: Dr Gordo Sr 2021-07-08 09:51:57 MANAGED CARE DIRECTOR Procedure Note Gordo Sr MD - 07/08/[address] [address] EVENT MONITOR Patient Name: LISA CONN MPatient ID: [id number] : [id number] Date: 06/29/2021 06:00:00 Gender: FAccession #: [id number] Tech: Ref.Provider: HELGA DANIELS Height(Cm): BSA: Weight(Kg): [...] Signed By: Dr Gordo Sr 2021-07-08 09:51:57 MANAGED CARE DIRECTOR us Helga Daniels ROLL MACHINE OPERATOR CV CARDIAC SERVICE S PROCEDURES Final Result documented in this encounter Visit Diagnoses Diagnosis Dizziness Dizziness and giddiness documented in this encounter Care Teams Graphic Art Sales Representative Relationship Specialty Start Date End Date Nabila King MD [address] [place] [address] [address] [place] [address] PCP - General Internal Medicine 12/16/20 Christine Kendall MD Surgeon Ophthalmology 12/13/20 Sita Magana MD [address] [facility] [address] [place] [address] Consulting Physician Internal Medicine 12/13/20 Regulo Pandey MD [address] [facility] [address] [place] [address] Referring Physician Cardiovascular Disease 12/16/20 Gigi Méndez MD [address] [facility] [address] [place] [address] Referring Physician Cardiology 02/18/21 documented as of this encounter
--- OUTSIDE RECORDS SUMMARY | 2024-08-09 20:27 | XMS_ITS | Encounter Summary ---
Author Organization [facility] Address [address] [place] [address] Phone Care Team Providers Care Sap Bw Architect Name Role Phone FaizaChristine MD Unavailable [phone] Sita Magana MD Unavailable [phone] Nabila King MD Primary Care Provider [phone] Regulo Pandey MD Unavailable Gigi Méndez MD Unavailable [phone] Bc Martinez MD Unavailable [phone] Encounter Details Date Type Department Care Team (Late st Contact Info) Description 10/26/2021 Orders Only [facility] [address] [place] [address] Nabila King MD [address] [place] [address] Social History Tobacco Use Types Packs/Day Years [...] on file 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 Gender Identity Not on file Sexual Orientation [...] on filedocumented in this encounter Care Teams Sap Bw Architect Relationship Specialty Start Date End Date Nabila King MD [address] [facility] [address] [place] [address] PCP - General Internal Medicine 12/16/20 Christine Kendall MD Surgeon Ophthalmology 12/13/20 Sita Magana MD [address] [facility] [address] [place] [address] Consulting Physician Internal Medicine 12/13/20 Regulo Pandey MD [address] [facility] [address] [place] [address] Referring Physician Cardiovascular Disease 12/16/20 Gigi Méndez MD [address] [facility] [address] [place] [address] Referring Physician Cardiology 02/18/21 Bc Martinez MD [address] [place] [address] Consulting Physician Cardiology 10/22/21 08/21/23 documented as of this encounter
--- OUTSIDE RECORDS SUMMARY | 2024-08-09 20:27 | XMS_ITS | Encounter Summary ---
Author Organization [facility] Medical [facility] Address [address] [facility] [address] [place] [address] Care Team Providers Care Concrete Handler Name Role Phone Christine Kendall MD Unavailable [phone] Sita Magana MD Unavailable [phone] Nabila King MD Primary Care Provider + [phone] Regulo Pandey MD Unavailable Gigi Méndez MD Unavailable [phone] Encounter Details Date Type Department Care Team (Late st Contact Info) Description 07/08/2021 Telephone [facility] 1 [place] [address] Elizabeth Daniels NP [address] [place] [address] Social History Tobacco Use Types [...] on file Legal Sex Female 8:14 PM FAST FOOD COOK Gender Identity Not on file Sexual Orientation Not on file 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 Discussed results of tele strip with her. She states she has been feeling well recently. She wishes to wait till her upcoming visit before deciding on referral back to cardiology. She will call with any further issues FOOD COOK * Telephone Encounter - Jolene Carson RN - 07/08/2021 11:40 AM FAST FOOD COOK Called and left a message For cardiology to send us the strips of the svt FOOD COOK * Telephone Encounter - Maxine Szymanski RN - 07/08/2021 11:26 AM CST We are working on getting the strips. Pt has appt with [facility] on 07/20/21. Pt wants to wait et see [facility], is this ok? Please advise. Pt is expecting a call back. FOOD COOK * Telephone Encounter - Elizabeth Daniels NP - 07/08/2021 11:01 AM FAST FOOD COOK Please get her tele strips. Also, I'd like to see her tomorrow or Monday to review tele monitor. FOOD COOK documented in this encounter Plan of Treatment Not on file documented as of this encounter Visit Diagnoses Not on filedocumented in this encounter Care Teams Concrete Handler Relationship Specialty Start Date End Date Nabila King MD [address] [place] [address] [address] PCP - General Internal Medicine 12/16/20 Christine Kendall MD Surgeon Ophthalmology 12/13/20 Sita Magana MD [address] [place] [address] [address] [place] [address] Consulting Physician Internal Medicine 12/13/20 Regulo Pandey MD [address] [facility] [address] [place] [address] Referring Physician Cardiovascular Disease 12/16/20 Gigi Méndez MD [address] [place] [address] [address] [place] [address] Referring Physician Cardiology 02/18/21 documented as of this encounter
--- OUTSIDE RECORDS SUMMARY | 2024-08-09 20:27 | XMS_ITS | Encounter Summary ---
Author Organization [facility] Address [address] [place] [address] Phone Care Team Providers Care Window Sash Installer Name Role Phone Christine Kendall MD Unavailable [phone] Sita Magana MD Unavailable [phone] Nabila King MD Primary Care Provider [phone] Regulo Pandey MD Unavailable Gigi Méndez MD Unavailable [phone] Encounter Details Date Type Department Care Team (Late st Contact Info) Description 10/14/[address] 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 Kendall's recommendation. Pt was very thankful and told me to tell Dr. Kendall she greatly appreciates it. ER MATERIAL HANDLER * Telephone Encounter - Gracy Ocampo COA - 10/14/2021 1:14 PM CST ----- Message from Christine Kendall MD sent at 10/05/2021 8:30 PM LUMBER MATERIAL HANDLER ----- [phone] I do not know which of the cardiology faculty is most appropriate for her (so many!) I recommend that she call the number above and explain her issues for a proper referral. They may want to review her records. ----- Message ----- From: Christine Kendall MD Sent: 09/20/2021 6:48 PM LUMBER MATERIAL HANDLER To: Christine Kendall MD Referral to fertilizer mixer/EP ER MATERIAL HANDLER documented in this encounter Plan of Treatment Not on file documented as of this encounter Visit Diagnoses Not on filedocumented in this encounter Care Teams Window Sash Installer Relationship Specialty Start Date End Date Nabila King MD [address] [place] [address] [address] [place] [address] PCP - General Internal Medicine 12/16/20 Christine Kendall MD Surgeon Ophthalmology 12/13/20 Sita Magana MD [address] [place] [address] [address] [place] [address] Consulting Physician Internal Medicine 12/13/20 Regulo Pandey MD [address] [facility] [address] [place] [address] Referring Physician Cardiovascular Disease 12/16/20 Gigi Méndez MD [address] [facility] [address] [place] [address] Referring Physician Cardiology 02/18/21 documented as of this encounter
--- OUTSIDE RECORDS SUMMARY | 2024-08-09 20:27 | XMS_ITS | Encounter Summary ---
Author Organization [facility] Address [address] [facility] [address] [place] [address] Care Team Providers Care Cutting Department Supervisor Name Role Phone Christine Kendall MD Unavailable [phone] Sita Magana MD Unavailable [phone] Nabila King MD Primary Care Provider + [phone] Regulo Pandey MD Unavailable Gigi Méndez MD Unavailable [phone] Bc Martinez MD Unavailable [phone] Reason for Visit * Reason Comments Follow-up 3 MONTH Encounter Details Date Type Department Care Team (Late st Contact Info) Description 10/22/2021 10:20 AM COUTURE ALTERATIONS DRESSMAKER Office Visit [facility] [place] [address] Nabila King MD [address] [place] [address] Paroxysmal A-fib (CMS/HCC) (HCC) (Primary Dx); SVT [...] on file Legal Sex Female 8:14 PM COUTURE ALTERATIONS DRESSMAKER Gender Identity Not on file Sexual Orientation Not on file 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 Not on file documented as of this encounter Last Filed Vital Signs Vital Sign Reading Time Taken Comments Blood Pressure 122/64 10/22/2021 11:49 AM COUTURE ALTERATIONS DRESSMAKER Pulse 54 10/22/2021 11:49 AM COUTURE ALTERATIONS DRESSMAKER Temperature 36 ??C (96.8 ??F) 10/22/2021 11:49 AM COUTURE ALTERATIONS DRESSMAKER Respiratory Rate 12 10/22/2021 11:49 AM COUTURE ALTERATIONS DRESSMAKER Oxygen Saturation 98% 10/22/2021 11:49 AM COUTURE ALTERATIONS DRESSMAKER Inhaled Oxygen Concentration - - Weight 54.9 kg (121 lb) 10/22/2021 11:49 AM COUTURE ALTERATIONS DRESSMAKER Height - - Body Mass Index 20.77 05/21/2021 9:17 AM CDT documented in this encounter Patient Instructions * Patient Instructions* Nabila King MD - 10/22/2021 10:20 AM COUTURE ALTERATIONS DRESSMAKER ORDERS FOR AMS STAFF TO ARRANGE 1. [...] today ICD-9-CM ICD-10-CM 1. Paroxysmal A-fib (CMS/HCC) ([facility]) 427.31 I48.0 2. SVT (supraventricular tachycardia) (CMS/HCC) ([facility]) 427.89 I47.1 For your records [...] ZOSTER Recombinant 02/02/2018, 05/03/2018 Primary Pharmacy/DME suppliers: [address] [address] PLEASE BRING IN ALL PILL BOTTLES TO EVERY OFFICE VISIT, THIS IS ESSENTIAL FOR ACCURATE REFILLS AND MAINTAINING AN ACCURATE MEDICATION LIST. PLEASE SIGN UP FOR MyCHART so that you may have access to your labs and chart documentation IF YOU HAVE TROUBLE WITH THIS PROCESS CALL [phone] URE ALTERATIONS DRESSMAKER URE ALTERATIONS DRESSMAKER URE ALTERATIONS DRESSMAKER documented in this encounter Progress Notes * [...] from today ICD-9-CM ICD-10-CM 1. Paroxysmal A-fib ([facility]) ([facility]) 427.31 I48.0 2. SVT (supraventricular tachycardia) (CMS/[facility]) ([facility]) 427.89 I47.1 For your records [...] ZOSTER Recombinant 02/02/2018, 05/03/2018 Primary Pharmacy/DME suppliers: [facility] - [place], [place] - [address] [facility] [address] PLEASE BRING IN ALL PILL BOTTLES TO EVERY OFFICE VISIT, THIS IS ESSENTIAL FOR ACCURATE REFILLS AND MAINTAINING AN ACCURATE MEDICATION LIST. PLEASE SIGN UP FOR Walkabout so that you may have access to your labs and chart documentation IF YOU HAVE TROUBLE WITH THIS PROCESS CALL [phone] CHIEF COMPLAINT Follow-up (3 MONTH) HISTORY OF [...] three-month follow-up = hypothyroid adult 2. Refer [facility] physical therapy for rotator bilateral cuff disorder ? ORDERS FOR Lisa Conn TO ARRANGE 1. Immunization recommendation Tdap at the pharmacy ?? 2. Tachy-kelechi sent I recommend pacemaker, followed by treatment of the fast rhythm with medications by your cardiology. contact me with the results of the consultation with your assignment desk editor on DETAILS REGARDING THIS VISIT: Lisa reports [...] consultation is taking over as her main assignment desk editor and he is scheduled on Monday for [...] THIS VISIT Current Outpatient Medications Ordered in [facility] Medication Sig Dispense Refill ??? apixaban [...] taking: Reported on 10/22/2021) 0 No current [facility]-ordered facility-administered medications on file. 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 URE ALTERATIONS DRESSMAKER documented in this encounter Plan of Treatment Not on file documented as of this encounter Visit Diagnoses Diagnosis Paroxysmal A-fib (CMS/HCC) (HCC)- Primary SVT (supraventricular tachycardia) (HCC) Other specified cardiac dysrhythmias documented in this encounter Care Teams Cutting Department Supervisor Relationship Specialty Start Date End Date Nabila King MD [address] [place] [address] [facility] [address] [place] [address] PCP - General Internal Medicine 12/16/20 Christine Kendall MD Surgeon Ophthalmology 12/13/20 Sita Magana MD [address] [facility] [address] [place] [address] Consulting Physician Internal Medicine 12/13/20 Regulo Pandey MD [address] [facility] [address] [place] [address] Referring Physician Cardiovascular Disease 12/16/20 Gigi Méndez MD [address] [facility] [address] [place] [address] Referring Physician Cardiology 02/18/21 Bc Martinez MD [address] [place] [address] Consulting Physician Cardiology 10/22/21 08/21/23 documented as of this encounter
--- OUTSIDE RECORDS SUMMARY | 2024-08-09 20:27 | XMS_ITS | Encounter Summary ---
Author Organization [facility] Medical [facility] Address [address] [facility] [address] [place] [address] Care Team Providers Care Post Secondary Professional Name Role Phone Christine Kendall MD Unavailable [phone] Sita Magana MD Unavailable [phone] Nabila King MD Primary Care Provider Regulo Pandey MD Unavailable Gigi Méndez MD Unavailable [phone] Encounter Details Date Type Department Care Team (Late st Contact Info) Description 06/21/2021 Telephone [facility] [address] [place] [address] Maxine Szymanski, RN Social History [...] on file Legal Sex Female 8:14 PM MICROWAVE RADIO TECHNICIAN Gender Identity Not on file Sexual [...] on filedocumented in this encounter Care Teams Post Secondary Professional Relationship Specialty Start Date End Date Nabila King MD [address] [place] [address] PCP - General Internal Medicine 12/16/20 Christine Kendall MD Surgeon Ophthalmology 12/13/20 Sita Magana MD [address] [place] [address] Consulting Physician Internal Medicine 12/13/20 Regulo Pandey MD [address] [facility] [address] [place] [address] Referring Physician Cardiovascular Disease 12/16/20 Gigi Méndez MD [address] [facility] [address] [address] [place] [address] Referring Physician Cardiology 02/18/21 documented as of this encounter
--- OUTSIDE RECORDS SUMMARY | 2024-08-09 20:27 | XMS_ITS | Encounter Summary ---
Author Organization [facility] Address [address] [facility] [address] [place] [address] Care Team Providers Care Programming Intern Name Role Phone Christine Kendall MD Unavailable [phone] Sita Magana MD Unavailable [phone] Nabila King MD Primary Care Provider + [phone] Regulo Pandey MD Unavailable Gigi Méndez MD Unavailable [phone] Reason for Visit * Reason Comments Follow-up 3 MONTH Encounter Details Date Type Department Care Team (Late st Contact Info) Description 07/20/2021 9:40 AM ELECTRONIC SYSTEMS SECURITY ASSESSMENT Office Visit [facility] 1 [place] [id number] Nabila King MD [address] [place] [address] Tachy-kelechi syndrome (CMS/HCC) (HCC) (Primary Dx); Hypothyroidism [...] on file Legal Sex Female 8:14 PM ELECTRONIC SYSTEMS SECURITY ASSESSMENT Gender Identity Not on file Sexual Orientation Not on file 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 Not on file documented as of this encounter Last Filed Vital Signs Vital Sign Reading Time Taken Comments Blood Pressure 124/78 07/20/2021 10:01 AM ELECTRONIC SYSTEMS SECURITY ASSESSMENT Pulse 68 07/20/2021 10:01 AM ELECTRONIC SYSTEMS SECURITY ASSESSMENT Regu lar Temperature 36.2 ??C (97.1 ??F) 07/20/2021 9:55 AM CS T Respiratory Rate 12 07/20/2021 9:55 AM ELECTRONIC SYSTEMS SECURITY ASSESSMENT Oxygen Saturation 97% 07/20/2021 9:55 AM ELECTRONIC SYSTEMS SECURITY ASSESSMENT Inhaled Oxygen Concentration - - Weight 54.9 kg (121 lb) 07/20/2021 9:55 AM ELECTRONIC SYSTEMS SECURITY ASSESSMENT Height - - Body Mass Index 20.77 05/21/2021 9:17 AM CDT documented in this encounter Patient Instructions * Patient Instructions* Nabila King MD - 07/20/2021 9:40 AM ELECTRONIC SYSTEMS SECURITY ASSESSMENT ORDERS FOR AMS STAFF TO ARRANGE 1. Free T4 TSH for three-month follow-up = hypothyroid adult 2. Refer [facility] physical therapy for rotator bilateral cuff disorder ORDERS FOR Lisa Conn TO ARRANGE 1. Immunization recommendation Tdap at the pharmacy 2. Tachy-kelechi sent I recommend pacemaker, followed by treatment of the fast rhythm with medications by your cardiology. contact me with the results of the consultation with your swedger on Patient Care Team: Nabila King MD [...] ZOSTER Recombinant 02/02/2018, 05/03/2018 Primary Pharmacy/DME suppliers: [address] - [address] [place] [address] PLEASE BRING IN ALL PILL BOTTLES TO EVERY OFFICE VISIT, THIS IS ESSENTIAL FOR ACCURATE REFILLS AND MAINTAINING AN ACCURATE MEDICATION LIST. PLEASE SIGN UP FOR [facility] so that you may have access to your labs and chart documentation IF YOU HAVE TROUBLE WITH THIS PROCESS CALL [phone] This is a copy the monitor to [...] Signed By: Dr Gordo Sr 2021-07-08 09:51:57 ELECTRONIC SYSTEMS SECURITY ASSESSMENT TRONIC SYSTEMS SECURITY ASSESSMENT TRONIC SYSTEMS SECURITY ASSESSMENT TRONIC SYSTEMS SECURITY ASSESSMENT TRONIC SYSTEMS SECURITY ASSESSMENT TRONIC SYSTEMS SECURITY ASSESSMENT TRONIC SYSTEMS SECURITY ASSESSMENT TRONIC SYSTEMS SECURITY ASSESSMENT TRONIC SYSTEMS SECURITY ASSESSMENT documented in this encounter Ordered Prescriptions Prescription [...] three-month follow-up = hypothyroid adult 2. Refer [facility] physical therapy for rotator bilateral cuff disorder ORDERS FOR Lisa Conn TO ARRANGE 1. Immunization recommendation Tdap at the pharmacy 2. Tachy-kelechi sent I recommend pacemaker, followed by treatment of the fast rhythm with medications by your cardiology. 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 Hypothyroidism due to Alan's [...] ZOSTER Recombinant 02/02/2018, 05/03/2018 Primary Pharmacy/DME suppliers: [facility] - [place], [place] - [address] [place] [address] PLEASE BRING IN ALL PILL BOTTLES TO EVERY OFFICE VISIT, THIS IS ESSENTIAL FOR ACCURATE REFILLS AND MAINTAINING AN ACCURATE MEDICATION LIST. PLEASE SIGN UP FOR SportsBUZZHART so that you may have access to your labs and chart documentation IF YOU HAVE TROUBLE WITH THIS PROCESS CALL [phone] This is a copy the monitor to [...] Signed By: Dr Gordo Sr 2021-07-08 09:51:57 ELECTRONIC SYSTEMS SECURITY ASSESSMENT CHIEF COMPLAINT Follow-up (3 MONTH) HISTORY OF [...] Results of the sleep study done in [place] connected with [facility] about 10 years ago ?? 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 [...] not taking: Reported on 07/20/2021) No current [facility]-ordered facility-administered medications on file. ALLERGIES [...] Signed By: Dr Gordo Sr 2021-07-08 09:51:57 ELECTRONIC SYSTEMS SECURITY ASSESSMENT Lab on 05/21/2021 Component Date Value Ref [...] F51.02 ??? Dizziness R42 Nabila King M.D. 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 documented in this encounter Results * TSH (10/11/2021 11:18 AM ELECTRONIC SYSTEMS SECURITY ASSESSMENT) TSH 1.670 0.450 - 4.500 uIU/mL [facility] - 01 Blood specimen (specimen) 10/11/2021 11:18 AM ELECTRONIC SYSTEMS SECURITY ASSESSMENT 10/11/2021 Narrative [facility] - 10/12/2021 9:36 AM ELECTRONIC SYSTEMS SECURITY ASSESSMENT Performed at: ??01 - [facility] [address] ??[id number] Community Support Specialist: Darek Farrell PhD, Phone: ??[phone] us Nabila King MD LAB BLOOD ORDERABLES Final Result [facility] - 01 * T4, free (10/11/2021 11:18 AM ELECTRONIC SYSTEMS SECURITY ASSESSMENT) T4,Free(Direct) 1.31 0.82 - 1.77 ng/dL [facility] - Blood specimen (specimen) 10/11/2021 11:18 AM ELECTRONIC SYSTEMS SECURITY ASSESSMENT 10/11/2021 Narrative [facility] - 10/12/2021 9:36 AM ELECTRONIC SYSTEMS SECURITY ASSESSMENT Performed at: ??01 - [facility] [address] ??[id number] Community Support Specialist: Darek Farrell PhD, Phone: ??[phone] us Nabila King MD LAB BLOOD ORDERABLES [...] documented as of this encounter Care Teams Programming Intern Relationship Specialty Start Date End Date Nabila King MD [address] [facility] [address] [address] PCP - General Internal Medicine 12/16/20 Christine Kendall MD Surgeon Ophthalmology 12/13/20 Sita Magana MD [address] [facility] [address] [place] [address] Consulting Physician Internal Medicine 12/13/20 Regulo Pandey MD [address] [facility] [address] [place] [address] Referring Physician Cardiovascular Disease 12/16/20 Gigi Méndez MD [address] [facility] [address] [place] [address] Referring Physician Cardiology 02/18/21 documented as of this encounter
--- OUTSIDE RECORDS SUMMARY | 2024-08-09 20:27 | XMS_ITS | Encounter Summary ---
Author Organization [facility] Address [address] [place] [address] Phone Care Team Providers Care Communications Equipment Supervisor Name Role Phone FaizaChristine MD Unavailable [phone] Sita Magana MD Unavailable [phone] Nabila King MD Primary Care Provider [phone] Regulo Pandey MD Unavailable Gigi Méndez MD Unavailable [phone] Bc Martinez MD Unavailable [phone] Encounter Details Date Type Department Care Team (Late st Contact Info) Description 10/25/2021 Orders Only [facility] [address] [place] [address] Nabila King MD [address] [place] [address] Social History Tobacco Use Types Packs/Day Years [...] on file Legal Sex Female 8:14 PM ECONOMICS CONSULTANT Gender Identity Not on file Sexual [...] on filedocumented in this encounter Care Teams Communications Equipment Supervisor Relationship Specialty Start Date End Date Nabila King MD [address] [facility] [address] [place] [address] PCP - General Internal Medicine 12/16/20 Christine Kendall MD Surgeon Ophthalmology 12/13/20 Sita Magana MD [address] [facility] [place] [address] Consulting Physician Internal Medicine 12/13/20 Regulo Pandey MD [address] [facility] [place] [address] Referring Physician Cardiovascular Disease 12/16/20 Gigi Méndez MD [address] [facility] [place] [address] Referring Physician Cardiology 02/18/21 Bc Martinez MD [address] [place] [address] Consulting Physician Cardiology 10/22/21 08/21/23 documented as of this encounter
--- OUTSIDE RECORDS SUMMARY | 2024-08-09 20:27 | XMS_ITS | Encounter Summary ---
Author Organization [facility] Address [address] [place] [address] Phone Care Team Providers Care Education Site Manager Name Role Phone FaizaChristine MD Unavailable [phone] Sita Magana MD Unavailable [phone] Nabila King MD Primary Care Provider [phone] Regulo Pandey MD Unavailable Gigi Méndez MD Unavailable [phone] Bc Martinez MD Unavailable Encounter Details Date Type Department Care Team (Late st Contact Info) Description 11/03/2021 Orders Only [facility] [address] [place] [address] Nabila King MD [address] [place] [address] Social History Tobacco Use Types Packs/Day Years [...] on file Legal Sex Female 8:14 PM PERSONAL INJURY PARALEGAL Gender Identity Not on file Sexual Orientation [...] on filedocumented in this encounter Care Teams Education Site Manager Relationship Specialty Start Date End Date Nabila King MD [address] [facility] [address] [place] [address] PCP - General Internal Medicine 12/16/20 Christine Kendall MD Surgeon Ophthalmology 12/13/20 Sita Magana MD [address] [place] [address] [address] [place] [address] Consulting Physician Internal Medicine 12/13/20 Regulo Pandey MD [address] [place] [address] [address] [place] [address] Referring Physician Cardiovascular Disease 12/16/20 Gigi Méndez MD [address] [place] [address] [address] [place] [address] Referring Physician Cardiology 02/18/21 Bc Martinez MD [address] [place] [address] Consulting Physician Cardiology 10/22/21 08/21/23 documented as of this encounter
--- OUTSIDE RECORDS SUMMARY | 2024-08-09 20:27 | XMS_ITS | Encounter Summary ---
Author Organization [facility] Address [address] [place] [address] Phone Care Team Providers Care Home Appliance Washing Machine Mechanic Name Role Phone FaizaChristine MD Unavailable [phone] Sita Magana MD Unavailable [phone] Nabila King MD Primary Care Provider [phone] Regulo Pandey MD Unavailable Gigi Méndez MD Unavailable [phone] Bc Martinez MD Unavailable [phone] Encounter Details Date Type Department Care Team (Late st Contact Info) Description 11/02/2021 Orders Only [facility] 1 [place] [address] Nabila King MD [address] [place] [address] Social History Tobacco Use Types Packs/Day Years [...] on file Legal Sex Female 8:14 PM CAN HANDLER Gender Identity Not on file Sexual [...] on filedocumented in this encounter Care Teams Home Appliance Washing Machine Mechanic Relationship Specialty Start Date End Date Nabila King MD [address] [place] [address] [address] [place] [address] PCP - General Internal Medicine 12/16/20 Christine Kendall MD Surgeon Ophthalmology 12/13/20 Sita Magana MD [address] [place] [address] [address] [place] [address] Consulting Physician Internal Medicine 12/13/20 Regulo Pandey MD [address] [place] [address] [address] [place] [address] Referring Physician Cardiovascular Disease 12/16/20 Gigi Méndez MD [address] [place] [address] [address] [place] [address] Referring Physician Cardiology 02/18/21 Bc Martinez MD [facility] [place] [address] Consulting Physician Cardiology 10/22/21 08/21/23 documented as of this encounter
--- OUTSIDE RECORDS SUMMARY | 2024-08-09 20:27 | XMS_ITS | Encounter Summary ---
Author Organization [facility] Address [address] [place] [address] Phone Care Team Providers Care Documentation Coordinator Name Role Phone Christine Kendall MD Unavailable [phone] Sita Magana MD Unavailable [phone] Nabila King MD Primary Care Provider Regulo Pandey MD Unavailable Gigi Méndez MD Unavailable [phone] Encounter Details Date Type Department Care Team (Late st Contact Info) Description 09/10/2021 Orders Only [facility] [address] [place] [address] Nabila King MD [address] [place] [address] Social History Tobacco Use Types [...] on file 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 Gender Identity Not on file Sexual Orientation [...] on filedocumented in this encounter Care Teams Documentation Coordinator Relationship Specialty Start Date End Date Nabila King MD [address] [facility] [address] [place] [address] PCP - General Internal Medicine 12/16/20 Christine Kendall MD Surgeon Ophthalmology 12/13/20 Sita Magana MD [address] [place] [address] [address] [place] [address] Consulting Physician Internal Medicine 12/13/20 Regulo Pandey MD [address] [place] [address] [address] [place] [address] Referring Physician Cardiovascular Disease 12/16/20 Gigi Méndez MD [address] [place] [address] [address] [place] [address] Referring Physician Cardiology 02/18/21 documented as of this encounter
--- OUTSIDE RECORDS SUMMARY | 2024-08-09 20:27 | XMS_ITS | Encounter Summary ---
Author Organization [facility] Medical [facility] Address [address] [facility] [address] [place] [address] Care Team Providers Care Color Maker Name Role Phone Christine Kendall MD Unavailable [phone] Sita Magana MD Unavailable [phone] Nabila King MD Primary Care Provider [phone] Regulo Pandey MD Unavailable Gigi Méndez MD Unavailable [phone] Bc Martinez MD Unavailable [phone] Encounter Details Date Type Department Care Team (Late st Contact Info) Description 10/27/2021 Telephone [facility] [address] [place] [address] Nabila King MD [address] [facility] [place] [address] Social History Tobacco Use Types Packs/Day Years [...] on file 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 If no improvement will need visit. ING SUPERVISOR * Telephone Encounter - Maxine Szymanski RN [...] doesn't have a ride. Please advise. ING SUPERVISOR * Telephone Encounter - Kim Bajwa - [...] some cream would work. Paige Gonzalez. Cbn: [phone] ING SUPERVISOR * Telephone Encounter - Imelda Wilson - 10/27/2021 8:47 AM CST Received fax from [facility] heart and vascular regarding chest routine results. Copy placed in Driver Hire's mailbox Original placed in scanning box ING SUPERVISOR documented in this encounter Plan of Treatment Not on file documented as of this encounter Visit Diagnoses Not on filedocumented in this encounter Care Teams Color Maker Relationship Specialty Start Date End Date Nabila King MD [address] [place] [address] [address] [place] [address] PCP - General Internal Medicine 12/16/20 Christine Kendall MD Surgeon Ophthalmology 12/13/20 Sita Magana MD [address] [place] [address] [address] [place] [address] Consulting Physician Internal Medicine 12/13/20 Regulo Pandey MD [address] [facility] [address] [place] [address] Referring Physician Cardiovascular Disease 12/16/20 Gigi Méndez MD [address] [facility] [address] [place] [address] Referring Physician Cardiology 02/18/21 Bc Martinez MD [address] [place] [address] Consulting Physician Cardiology 10/22/21 08/21/23 documented as of this encounter
--- OUTSIDE RECORDS SUMMARY | 2024-08-09 20:28 | XMS_ITS | Encounter Summary ---
Author Organization [facility] Medical Group Address [address] [facility] [address] [place] [address] Care Team Providers Care Veneer Splicer Name Role Phone Christine Kendall MD Unavailable [phone] Sita Magana MD Unavailable [phone] Nabial King MD Primary Care Provider + [phone] Regulo Pandey MD Unavailable Gigi Méndez MD Unavailable [phone] Encounter Details Date Type Department Care Team (Late st Contact Info) Description 03/22/2021 11:30 AM CDT [facility] [address] [place] [address] Social History Tobacco Use Types Packs/Day [...] on file Legal Sex Female 8:14 PM 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 Gender Identity Not on file Sexual Orientation Not on file 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 Not on file documented as of this encounter Plan of Treatment Not on file documented as of this encounter Visit Diagnoses Not on filedocumented in this encounter Care Teams Veneer Splicer Relationship Specialty Start Date End Date Nabila King MD [address] [place] [address] [address] [place] [address] PCP - General Internal Medicine 12/16/20 Christine Kendall MD Surgeon Ophthalmology 12/13/20 Sita Magana MD [address] [place] [address] [address] [place] [address] Consulting Physician Internal Medicine 12/13/20 Regulo Pandey MD [address] [place] [address] [address] [place] [address] Referring Physician Cardiovascular Disease 12/16/20 Gigi Méndez MD [address] [facility] [address] [place] [address] Referring Physician Cardiology 02/18/21 documented as of this encounter
--- OUTSIDE RECORDS SUMMARY | 2024-08-09 20:28 | XMS_ITS | Encounter Summary ---
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 Testing performed by: [facility], [address] [place]., [address] Stool 03/22/2021 10:3 0 AM CDT 03/22/2021 7:35 PM CDT us Nabila King MD LAB MICROBIOLOGY - GENERAL ORDERABLES Final Result [facility] [address] Department [place] [address] documented in this encounter Visit Diagnoses Diagnosis Nausea Nausea alone History of Helicobacter pylori infection documented in this encounter Care Teams Mill Beam Fitter Relationship Specialty Start Date End Date Nabila King MD [address] [facility] [address] [place] [address] PCP - General Internal Medicine 12/16/20 Christine Kendall MD Surgeon Ophthalmology 12/13/20 Sita Magana MD [address] [facility] [address] [place] [address] Consulting Physician Internal Medicine 12/13/20 Regulo Pandey MD [address] [facility] [address] [place] [address] Referring Physician Cardiovascular Disease 12/16/20 Gigi Méndez MD [address] [facility] [address] [place] [address] Referring Physician Cardiology 02/18/21 documented as of this encounter
--- OUTSIDE RECORDS SUMMARY | 2024-08-09 20:28 | XMS_ITS | Encounter Summary ---
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 Gender Identity Not on file Sexual [...] Results * eGFR (03/19/2021 12:55 PM CDT) [facility] eGFR 81 mL/min/1.7 3 m2 [facility] MOTLEY [...] King MD LAB BLOOD ORDERABLES Final Result [facility] [address] Department [place] [address] * Differential, auto (03/19/2021 12:55 PM CDT) Neutrophil abs 2.9 1.7 - 6.5 K/cumm [facility] Imm gran abs 0.0 0.0 - 0.1 K/cumm [facility] Lymphocyte abs 2.3 0.8 - 3.3 K/cumm [facility] Monocyte abs 0.4 0.2 - 0.8 K/cumm [facility] Eosinophil abs 0.0 0.0 - 0.5 K/cumm [facility] Basophil abs 0.0 0.0 - 0.1 K/cumm [facility] Neutrophil pct 51.9 % [facility] Comment: Interpretive Data Percent cell count reference ranges are not reported, since discordance with absolute values may lead to misinterpretation of CBC data. Current Interpretive Data was last revised on 2017. Imm gran pct 0.0 % [facility] Comment: Interpretive Data Percent cell count reference [...] revised on 2017. Monocyte pct 6.6 % [facility] Comment: Interpretive Data Percent cell count reference ranges are not reported, since discordance with absolute values may lead to misinterpretation of CBC data. Current Interpretive Data was last revised on 2017. Eosinophil pct 0.7 % [facility] Comment: Interpretive Data Percent cell count reference ranges are not reported, since discordance with absolute values may lead to misinterpretation of CBC data. Current Interpretive Data was last revised on 2017. Basophil pct 0.5 % [facility] Comment: Interpretive Data Percent cell count reference ranges are not reported, since discordance with absolute values may lead to misinterpretation of CBC data. Current Interpretive Data was last revised on 2017. Blood specimen (specimen) 03/19/2021 12:55 PM CDT 03/19/2021 4:54 PM CDT us Nabila King MD LAB BLOOD ORDERABLES Final Result Performing Organization Address [facility] Co de Phone Number [facility] MOTELY [address] Department [employer] [place] [address] * (ABNORMAL) Ferritin (03/19/2021 12:55 PM CDT) Ferritin 189(H) 15 - 150 ng/mL [facility] Blood specimen (specimen) 03/19/2021 12:55 PM CDT 03/19/2021 4:54 PM CDT us Nabila King MD LAB BLOOD ORDERABLES Final Result Performing Organization Address City/[facility] Co de Phone Number [facility] [place] [address] Department [place] [address] * Comprehensive metabolic panel (03/19/2021 12:55 PM [...] King MD LAB BLOOD ORDERABLES Final Result [facility] [address] Department [place] [address] * Methylmalonic acid, serum (03/19/2021 12:55 PM CDT) Pathologist [facility] MMA 0.12 <=0.40 nmol/mL [facility] Comment: ADDITIONAL INFORMATION This test was developed and its performance characteristics determined by [facility] in a manner consistent with CLIA requirements. This test has not been cleared or approved by the U.S. Food and Drug Administration. Test Performed by: [address] [address] Baking Powder Mixer: Cam Farrell M.D. Ph.D.; CLIA# [id number] Blood specimen (specimen) 03/19/2021 12:55 PM CDT 03/19/2021 4:55 PM CDT us Nabila King MD LAB BLOOD ORDERABLES Final Result Performing Organization Address City/[facility]/ZIP Co de Phone Number [facility] [address] [place] [address] * Vitamin B12 (03/19/2021 12:55 PM CDT) Pathologist [facility] Vitamin B12 946 230 - 1,250 pg/mL [facility] Blood specimen (specimen) 03/19/2021 12:55 PM CDT 03/19/2021 4:54 PM CDT us Nabila King MD LAB BLOOD ORDERABLES Final Result Performing Organization Address City/[facility] Co de Phone Number [facility] [address] [place] [address] * Iron profile w/ IBC (03/19/2021 12:55 PM CDT) Pathologist [facility] Iron 114 35 - 145 mcg/dl [facility] TIBC 307 250 - 400 mcg/dL [facility] Transferrin saturation 37 20 - 50 % [facility] Blood specimen (specimen) 03/19/2021 12:55 PM CDT 03/19/2021 4:54 PM CDT us Nabila King MD LAB BLOOD ORDERABLES Final Result [address] Department [employer] [place], [place] [id number] * (ABNORMAL) CBC with auto differential (03/19/2021 [...] PM CDT 03/19/2021 4:54 PM CDT us aNbila King MD LAB BLOOD ORDERABLES Final Result [facility] [address] [address] [employer] [place] [address] * PTH (03/19/2021 12:55 PM CDT) Pathologist [facility] PTH 52 15 - 65 pg/mL [facility] Blood specimen (specimen) 03/19/2021 12:55 PM CDT 03/19/2021 4:54 PM CDT us Nabila King MD LAB BLOOD ORDERABLES Final Result Performing Organization Address [facility] Co de Phone Number [facility] [address] [facility] [employer] [place] [address] * Vitamin D 25 hydroxy (03/19/2021 12:55 PM CDT) Vitamin D 25-OH 59 30 - 80 ng/mL [facility] Blood specimen (specimen) 03/19/2021 12:55 PM CDT 03/19/2021 4:54 PM CDT us Nabila King MD LAB BLOOD ORDERABLES Final Result Performing Organization Address [facility] Co de Phone Number [facility] [address] [facility] [employer] [place] [address] * TSH (03/19/2021 12:55 PM CDT) Thyroid Stimulating Hormone 1.46 0.30 - 4.20 mcIUnit/mL [facility] Blood specimen (specimen) 03/19/2021 12:55 PM CDT 03/19/2021 4:54 PM CDT us Nabila King MD LAB BLOOD ORDERABLES Final Result Performing Organization Address [facility] Co de Phone Number [facility] [address] [facility] [employer] [place] [address] * T4, free (03/19/2021 12:55 PM CDT) Free T4 1.31 0.90 - 1.70 ng/dL [facility] Blood specimen (specimen) 03/19/2021 12:55 PM CDT 03/19/2021 4:54 PM CDT us Nabila King MD LAB BLOOD ORDERABLES Final Result Performing Organization Address City/[facility] [place] [address] [address] Department [place] [address] documented in this encounter Visit Diagnoses Diagnosis Hypothyroidism, adult Other specified acquired hypothyroidism History of osteoporosis Personal history of other musculoskeletal disorders Disorder of bone, unspecified Tiredness Other malaise and fatigue Nausea Nausea alone Paroxysmal A-fib (CMS/HCC) (HCC) documented in this encounter Care Teams Physical Therapist Aide Relationship Specialty Start Date End Date Nabila King MD [address] [facility] [address] [place] [address] PCP - General Internal Medicine 12/16/20 Christine Kendall MD Surgeon Ophthalmology 12/13/20 Sita Magana MD [facility] [address] [place] [address] Consulting Physician Internal Medicine 12/13/20 Regulo Pandey MD [facility] [address] [place] [address] Referring Physician Cardiovascular Disease 12/16/20 Gigi Méndez MD [facility] [address] [place] [address] Referring Physician Cardiology 02/18/21 documented as of this encounter
--- OUTSIDE RECORDS SUMMARY | 2024-08-09 20:28 | XMS_ITS | Encounter Summary ---
Author Organization [facility] Medical Group Address [address] [facility] [address] [place] [address] Care Team Providers Care Referral Nurse Name Role Phone Christine Kendall MD Unavailable [phone] Sita Magana MD Unavailable [phone] Nabila King MD Primary Care Provider [phone] Regulo Pandey MD Unavailable Gigi Méndez MD Unavailable [phone] Encounter Details Date Type Department Care Team (Late st Contact Info) Description 03/19/2021 1:00 PM CDT [facility] [address] [place] [address] History of Helicobacter pylori infection; Fatigue, [...] on file 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 Gender Identity Not on file Sexual [...] alone documented in this encounter Care Teams Referral Nurse Relationship Specialty Start Date End Date Nabila King MD [address] [facility] [address] [place] [address] PCP - General Internal Medicine 12/16/20 Christine Kendall MD Surgeon Ophthalmology 12/13/20 Sita Magana MD [address] [facility] [address] [place] [address] Consulting Physician Internal Medicine 12/13/20 Regulo Pandey MD [address] [place] [address] Referring Physician Cardiovascular Disease 12/16/20 Gigi Méndez MD [address] [place] [address] Referring Physician Cardiology 02/18/21 documented as of this encounter
--- OUTSIDE RECORDS SUMMARY | 2024-08-09 20:28 | XMS_ITS | Encounter Summary ---
Author Organization [facility] Medical Group Address [address] [facility] [address] [place] [address] Care Team Providers Care Floor Helper Name Role Phone Christine Kendall MD Unavailable [phone] Sita Magana MD Unavailable [phone] Nabila King MD Primary Care Provider + [phone] Regulo Pandey MD Unavailable Gigi Méndez MD Unavailable [phone] Encounter Details Date Type Department Care Team (Late st Contact Info) Description 03/24/2021 Telephone [facility] [address] [place] [address] Nabila King MD [address] [place] [address] Social History Tobacco Use Types Packs/Day Years [...] on file Legal Sex Female 8:14 PM [employer] Gender Identity Not on file Sexual Orientation [...] on filedocumented in this encounter Care Teams Floor Helper Relationship Specialty Start Date End Date Nabila King MD [address] [place] [address] PCP - General Internal Medicine 12/16/20 Christine Kendall MD Surgeon Ophthalmology 12/13/20 Sita Magana MD [facility] [address] [place] [address] Consulting Physician Internal Medicine 12/13/20 Regulo Pandey MD [address] [place] [address] Referring Physician Cardiovascular Disease 12/16/20 Gigi Méndez MD [address] [place] [address] Referring Physician Cardiology 02/18/21 documented as of this encounter
--- OUTSIDE RECORDS SUMMARY | 2024-08-09 20:28 | XMS_ITS | Encounter Summary ---
Author Organization [facility] Medical Group Address [address] [facility] [address] [place] [address] Care Team Providers Care Line Installer Repairer Name Role Phone Christine Kendall MD Unavailable Sita Magana MD Unavailable [phone] Nabila King MD Primary Care Provider [phone] Regulo Pandey MD Unavailable Gigi Méndez MD Unavailable [phone] Reason for Referral * Cardiology (Routine) - Closed Specialty Diagnoses / Procedures Referred By Contac t Referred To Contact Diagnoses Dizziness Procedures Event Monitor, 30 Day Event Helga Daniels NP Phone: tel: [address] [address] Referral ID Status Reason Start Date Expiration Date Visits Re quested Visits Authorized [id number] Closed 05/21/2021 06/20/2022 1 1 Reason for Visit * Reason Comments Dizziness Encounter Details Date Type Department Care Team (Latest Contact Info) Description 05/21/2021 9:30 AM CDT Office Visit [place] [facility] [address] [place] [address] Helga Daniels NP [address] [place] [address] Dizziness (Primary Dx) Social History Tobacco Use [...] file Legal Sex Female 8:14 PM 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 apixaban (ELIQUIS) [...] 1 capsule by mouth daily No current [facility] [place]-ordered facility-administered medications on file. ALLERGIES is allergic [...] in the After Visit Summary. Helga Daniels, ARBORICULTURE INSTRUCTOR- THE FOLLOWING CLERICAL INFORMATION DOES NOT DUE [...] Laterality Modality Electrocardiogra phy 06/29/2021 6:00 AM HEAD START COORDINATOR Narrative 07/08/2021 9:51 AM HEAD START COORDINATOR [place] [id number] EVENT MONITOR Patient Name: LISA CONN M [...] Signed By: Dr Gordo Sr 2021-07-08 09:51:57 HEAD START COORDINATOR Procedure Note Gordo Sr MD - 07/08/[address] [place] [address] EVENT MONITOR Patient Name: LISA CONN MPatient ID: [id number] : [id number] Date: 06/29/2021 06:00:00 Gender: FAccession #: [id number] Tech: Ref.Provider: HELGA DANIELS Height(Cm): BSA: Weight(Kg): [...] Signed By: Dr Gordo Sr 2021-07-08 09:51:57 HEAD START COORDINATOR Helga Daniels NP CV CARDIAC SERVICE S [...] tendency for uric acid stone formation. Source: [facility] [email or web address]. Last revised 08-31-2017 Helga Daniels NP LAB MICROBIOLOGY - GENERAL ORDERABLES Final Result Performing Organization Address [facility] de Phone Number [place] [address] [employer] [place], [place] [id number] * (ABNORMAL) TSH reflex to free T4 (05/21/2021 10:17 AM CDT) TSH 0.11(L) 0.30 - 4.20 mcIUnit/mL [facility] Blood 05/21/2021 10:1 7 AM CDT 05/21/2021 12:56 PM CDT Helga Daniels NP LAB BLOOD ORDERABL ES Final Result Performing Organization Address [facility] de Phone Number [facility] [address] Department [email or web address] [address] * ECG 12 lead (05/21/2021) Helga Daniels CAR DUMPER ECG ORDERABLES Fi nal Result documented in this encounter Visit Diagnoses Diagnosis Dizziness- Primary Dizziness and giddiness Dizziness Dizziness and giddiness Dizziness Dizziness and giddiness documented in this encounter Care Teams Line Installer Repairer Relationship Specialty Start Date End Date Nabila King MD [address] [place] [address] [address] [place] [address] PCP - General Internal Medicine 12/16/20 Christine Kendall MD Surgeon Ophthalmology 12/13/20 Sita Magana MD [address] [place] [address] [address] [place] [address] Consulting Physician Internal Medicine 12/13/20 Regulo Pandey MD [address] [place] [address] [address] [place] [address] Referring Physician Cardiovascular Disease 12/16/20 Gigi Méndez MD [address] [place] [address] [address] [place] [address] Referring Physician Cardiology 02/18/21 documented as of this encounter
--- OUTSIDE RECORDS SUMMARY | 2024-08-09 20:28 | XMS_ITS | Encounter Summary ---
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 Gender Identity Not on file [...] on filedocumented in this encounter Care Teams Fabric Sourcer Relationship Specialty Start Date End Date Nabila King MD [address] [facility] [address] [place] [address] PCP - General Internal Medicine 12/16/20 Christine Kendall MD Surgeon Ophthalmology 12/13/20 Sita Magana MD [address] [place] [address] [address] [place] [address] Consulting Physician Internal Medicine 12/13/20 Regulo Pandey MD [address] [place] [address] [address] [place] [address] Referring Physician Cardiovascular Disease 12/16/20 Gigi Méndez MD [address] [place] [address] [address] [place] [address] Referring Physician Cardiology 02/18/21 documented as of this encounter
--- OUTSIDE RECORDS SUMMARY | 2024-08-09 20:28 | XMS_ITS | Encounter Summary ---
Author Organization [facility] Address [address] [facility] [address] [place] [address] Care Team Providers Care Senior Mainframe Programmer Analyst Name Role Phone Christine Kendall MD Unavailable [phone] Sita Magana MD Unavailable [phone] Nabila King MD Primary Care Provider + [phone] Regulo Pandey MD Unavailable Gigi Méndez MD Unavailable [phone] Reason for Visit * Reason Comments Follow-up 3 MONTH Encounter Details Date Type Department Care Team (Late st Contact Info) Description 03/19/2021 10:20 AM CDT Office Visit [facility] [address] [place] [id number] Nabila King MD [address] [facility] [place] [address] Tiredness (Primary Dx); Adjustment insomnia; Hypothyroidism, adult; Nausea; Arthritis of knee; Disparity of leg length, acquired; Pes planus of both feet; Neuroforaminal stenosis of lumbar spine; History of osteoporosis; History of Helicobacter pylori infection; Disorder of bone, unspecified ; Paroxysmal A-fib (CMS/HCC) ([facility] Social History Tobacco Use Types Packs/Day Years [...] on file Legal Sex 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 PLEASE SIGN UP FOR MyCHART so that you may have access to your labs and chart documentation IF YOU HAVE TROUBLE WITH THIS PROCESS CALL [phone] documented in this encounter Ordered Prescriptions Prescription [...] ZOSTER Recombinant 02/02/2018, 05/03/2018 Primary Pharmacy/DME suppliers: [facility] [place], [place] - [address] [employer] [facility] [address] [facility] [address] PLEASE BRING IN ALL PILL BOTTLES TO EVERY OFFICE VISIT, THIS IS ESSENTIAL FOR ACCURATE REFILLS AND MAINTAINING AN ACCURATE MEDICATION LIST. PLEASE SIGN UP FOR [employer] so that you may have access to your labs and chart documentation IF YOU HAVE TROUBLE WITH THIS PROCESS CALL [phone] CHIEF COMPLAINT Follow-up (3 MONTH) HISTORY OF [...] for sleep and nerves 2. Visit with director investor relations in review the 2018 echocardiogram with the [...] condition is under the monitoring from her historian research assistant in a 30 day is pending, some [...] VISIT Current Outpatient Medications Ordered in [facility] Medication Sig Dispense Refill ??? apixaban (ELIQUIS) [...] mouth nightly 15 tablet 3 No current [facility]-ordered facility-administered medications on file. ALLERGIES is allergic [...] Miscellaneous Notes * Result Encounter Note - Nabila King MD - 06/21/2021 1:09 PM CDT [...] AM CDT Performed at: ??01 - [facility] [address] ??[id number] Upsetting Machine Operator: Darek Farrell PhD, Phone: ??[phone] Nabila King MD LAB BLOOD ORDERABLES Final Result Performing Organization Address City/[facility]/ZIP Co de Phone Number [facility] - * T4, free (06/18/2021 8:54 AM CDT) T4,Free(Direct) 1.70 0.82 - 1.77 ng/dL [facility] - 01 Blood specimen (specimen) 06/18/2021 8:54 AM CDT 06/18/2021 Narrative [facility] - 06/19/2021 7:36 AM CDT Performed at: ??[address] ??[id number] Upsetting Machine Operator: Darek Farrell PhD, Phone: ??[phone] Nabila King MD LAB BLOOD ORDERABLES Final Result Performing Organization Address [facility] de Phone Number [facility] - * H. pylori antigen, stool Stool (03/22/2021 10:30 AM CDT) Pathologist [facility] [place] H. pylori Ag, stool Negative Negative FRANKIE MOTLEY Comment: Interpretative Data Testing performed at the [facility] Microbiology Laboratory using the Curian HpSA [...] last revised August 2020. Testing performed by: [facility], [address] [facility] [place]., [address] Stool 03/22/2021 10:3 0 AM CDT 03/22/2021 7:35 PM CDT Nabila King MD LAB MICROBIOLOGY - GENERAL ORDERABLES Final Result FRANKIE MOTLEY [address] Department [place] [address] * (ABNORMAL) Ferritin (03/19/2021 12:55 PM CDT) Ferritin 189(H) 15 - 150 ng/mL [facility] Blood specimen (specimen) 03/19/2021 12:55 PM CDT 03/19/2021 4:54 PM CDT Nabila King MD LAB BLOOD ORDERABLES Final Result Performing Organization Address City/[facility] Co de Phone Number FRANKEI MOTLEY [address] Department [place] [address] * Comprehensive metabolic panel (03/19/2021 12:55 PM [...] BLOOD ORDERABLES Final Result Performing Organization Address [facility] Co de Phone Number FRANKIE MOTLEY [address] [place] [address] * Methylmalonic acid, serum (03/19/2021 12:55 PM CDT) MMA 0.12 <=0.40 nmol/mL [facility] CH Comment: ADDITIONAL INFORMATION This test was developed and its performance characteristics determined by [facility] in a manner consistent with CLIA requirements. This test has not been cleared or approved by the U.S. Food and Drug Administration. Test Performed by: [facility] [address] [address] Upsetting Machine Operator: Cam Farrell M.D. Ph.D.; CLIA# [id number] Blood specimen (specimen) 03/19/2021 12:55 PM CDT 03/19/2021 4:55 PM CDT us Nabila King MD LAB BLOOD ORDERABLES Final Result Performing Organization Address [facility] Co de Phone Number FRANKIE MOTLEY [address] [address] [facility] [place] [address] * Vitamin B12 (03/19/2021 12:55 PM CDT) Vitamin B12 946 230 - 1,250 pg/mL [facility] Blood specimen (specimen) 03/19/2021 12:55 PM CDT 03/19/2021 4:54 PM CDT us Nabila King MD LAB BLOOD ORDERABLES Final Result Performing Organization Address City/[facility]/ZIP Co de Phone Number FRANKIE MOTLEY [address] [address] [place] [address] * Iron profile w/ IBC (03/19/2021 12:55 PM CDT) [facility] Iron 114 35 - 145 mcg/dl [facility] TIBC 307 250 - 400 mcg/dL [facility] Transferrin saturation 37 20 - 50 % [facility] Blood specimen (specimen) 03/19/2021 12:55 PM CDT 03/19/2021 4:54 PM CDT us Nabila King MD LAB BLOOD ORDERABLES Final Result Performing Organization Address [facility] Co de Phone Number FRANKIE MOTLEY [address] [address] [place] [address] * (ABNORMAL) CBC with auto differential (03/19/2021 12:55 PM CDT) [facility] WBC 5.6 3.8 - 9.9 K/cumm [facility] Hgb 15.3 11.9 - 15.5 g/dL [facility] Hct 48.0(H) 35.6 - 45.5 % [facility] Plt 241 150 - 400 K/cumm [facility] MPV 11.2 9.1 - 12.3 fL [facility] RBC 4.87 3.90 - 5.20 M/cumm [facility] CH MCV 98.6(H) 81.3 - 96.4 fL [facility] MCH 31.4 27.1 - 33.3 pg [facility] MCHC 31.9(L) 32.3 - 35.7 g/dL [facility] RDW CV 14.2 11.1 - 14.9 % [facility] RDW SD 51.9(H) 35.7 - 48.1 fL [facility] NRBC abs 0.00 0.00 - 0.01 K/cumm [facility] Blood specimen (specimen) 03/19/2021 12:55 PM CDT 03/19/2021 4:54 PM CDT us Nabila King MD LAB BLOOD ORDERABLES Final Result Performing Organization Address [facility] de Phone Number FRANKIE [address] [address] [facility] [place] [address] * PTH (03/19/2021 12:55 PM CDT) PTH 52 15 - 65 pg/mL [facility] Blood specimen (specimen) 03/19/2021 12:55 PM CDT 03/19/2021 4:54 PM CDT us Nabila King MD LAB BLOOD ORDERABLES Final Result Performing Organization Address [facility] de Phone Number [facility] [address] [address] [facility] [place] [address] * Vitamin D 25 hydroxy (03/19/2021 12:55 PM CDT) Vitamin D 25-OH 59 30 - 80 ng/mL [facility] Blood specimen (specimen) 03/19/2021 12:55 PM CDT 03/19/2021 4:54 PM CDT us Nabila King MD LAB BLOOD ORDERABLES Final Result Performing Organization Address [facility] Co de Phone Number [facility] [address] [address] [facility] [place] [address] * TSH (03/19/2021 12:55 PM CDT) Thyroid Stimulating Hormone 1.46 0.30 - 4.20 mcIUnit/mL [facility] Blood specimen (specimen) 03/19/2021 12:55 PM CDT 03/19/2021 4:54 PM CDT us Nabila King MD LAB BLOOD ORDERABLES Final Result Performing Organization Address City/[facility]/ZIP Co de Phone Number FRANKIE MOTLEY [address] [address] [facility] [place] [address] * T4, free (03/19/2021 12:55 PM CDT) Free T4 1.31 0.90 - 1.70 ng/dL FRANKIE MOTLEY Blood specimen (specimen) 03/19/2021 12:55 PM CDT 03/19/2021 4:54 PM CDT us Nabila King MD LAB BLOOD ORDERABLES Final Result Performing Organization Address [facility] Co de Phone Number FRANKIE MOTLEY [address] [address] [facility] [place] [address] documented in this encounter Visit Diagnoses Diagnosis [...] 1 tablet (50 mcg total) by mouth news internship before breakfast Reorder 12/16/2020 03/19/2021 documented as of this encounter Historical Medications * This list may reflect changes made after this encounter. apixaban (ELIQUIS) 2.5 mg tablet Take 2.5 mg by mouth 2 (two) times a day 03/16/2021 11/24/2021 added in this encounter Care Teams Senior Mainframe Programmer Analyst Relationship Specialty Start Date End Date Nabila King MD [address] [place] [address] PCP - General Internal Medicine 12/16/20 Christine Kendall MD Surgeon Ophthalmology 12/13/20 Sita Magana MD [address] [place] [address] Consulting Physician Internal Medicine 12/13/20 Regulo Pandey MD [address] [place] [address] Referring Physician Cardiovascular Disease 12/16/20 Gigi Méndez MD [address] [place] [address] Referring Physician Cardiology 02/18/21 documented as of this encounter
--- OUTSIDE RECORDS SUMMARY | 2024-08-09 20:28 | XMS_ITS | Encounter Summary ---
Author Organization [facility] Medical [facility] Address [address] [facility] [address] [place] [address] Care Team Providers Care Turbinated Bone Grinder Name Role Phone Christine Kendall MD Unavailable [phone] Sita Magana MD Unavailable [phone] Nabila King MD Primary Care Provider + [phone] Regulo Pandey MD Unavailable Gigi Méndez MD Unavailable [phone] Reason for Visit * Reason Comments Follow-up 4 month Encounter Details Date Type Department Care Team (Late st Contact Info) Description 04/19/2021 1:20 PM CDT Office Visit [facility] 1 [place] [id number] Nabila King MD 1 [place] [address] Tiredness (Primary Dx); Nausea; History of Helicobacter [...] on file 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 Immunization recommendation High-dose [...] ZOSTER Recombinant 02/02/2018, 05/03/2018 Primary Pharmacy/DME suppliers: [facility] - [place], [place] - [address] [address] PLEASE BRING IN ALL PILL BOTTLES TO EVERY OFFICE VISIT, THIS IS ESSENTIAL FOR ACCURATE REFILLS AND MAINTAINING AN ACCURATE MEDICATION LIST. PLEASE SIGN UP FOR [employer] [facility] so that you may have access to your labs and chart documentation IF YOU HAVE TROUBLE WITH THIS PROCESS CALL [phone] documented in this encounter Ordered Prescriptions Prescription [...] Results of the sleep study done in [place] connected with [facility] about 10 years ago ORDERS [...] ZOSTER Recombinant 02/02/2018, 05/03/2018 Primary Pharmacy/DME suppliers: [facility] [place] - [facility] [employer] [facility] [address] [facility] [address] PLEASE BRING IN ALL PILL BOTTLES TO EVERY OFFICE VISIT, THIS IS ESSENTIAL FOR ACCURATE REFILLS AND MAINTAINING AN ACCURATE MEDICATION LIST. PLEASE SIGN UP FOR [employer] so that you may have access to your labs and chart documentation IF YOU HAVE TROUBLE WITH THIS PROCESS CALL [phone] CHIEF COMPLAINT Follow-up (4 month) HISTORY OF [...] the brain fog DETAILS REGARDING THIS VISIT: Lisa reports feeling poorly : 1. Tiredness Continues [...] THIS VISIT Current Outpatient Medications Ordered in [facility] Medication Sig Dispense Refill ??? [...] mouth daily 30 tablet/capsule 1 No current [facility]-ordered facility-administered medications on file. ALLERGIES [...] 11/24/2021 added in this encounter Care Teams Turbinated Bone Grinder Relationship Specialty Start Date End Date Nabila King MD [address] [facility] [address] [place] [address] PCP - General Internal Medicine 12/16/20 Christine Kendall MD Surgeon Ophthalmology 12/13/20 Sita Magana MD [address] [place] [address] [address] [place] [address] Consulting Physician Internal Medicine 12/13/20 Regulo Pandey MD [address] [place] [address] [address] [place] [address] Referring Physician Cardiovascular Disease 12/16/20 Gigi Méndez MD [address] [place] [address] [facility] [address] [place] [address] Referring Physician Cardiology 02/18/21 documented as of this encounter
--- OUTSIDE RECORDS SUMMARY | 2024-08-09 20:28 | XMS_ITS | Encounter Summary ---
Author Organization [facility] Address [address] [place] [address] Phone Care Team Providers Care Applications Intern Name Role Phone Christine Kendall MD Unavailable [phone] Sita Magana MD Unavailable [phone] Nabila King MD Primary Care Provider Regulo Pandey MD Unavailable Gigi Méndez MD Unavailable [phone] Encounter Details Date Type Department Care Team (Late st Contact Info) Description 03/23/2021 Orders Only [facility] [address] [place] [address] Nabila King MD 1 [place] [address] Social History Tobacco Use Types [...] on file 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 [address] [place] [address] Referring Physician Cardiovascular Disease 12/16/20 Gigi Méndez MD [address] [facility] [address] [place] [address] Referring Physician Cardiology 02/18/21 documented as of this encounter
--- OUTSIDE RECORDS SUMMARY | 2024-08-09 20:29 | XMS_ITS | Encounter Summary ---
Author Organization [facility] Address [address] [place] [address] Phone Care Team Providers Care Heat And Vent Aircraft Mechanic Name Role Phone Jason Winters MD Primary Care Provider [phone] Reason for Visit * Reason Onset Date Comments Med Management 05/15/2020 Encounter Details Date Type Department Care Team (Late st Contact Info) Description 05/15/2020 Telephone [facility] Ophthalmology [facility] [place] [address] Christine Kendall MD [address] [facility] [facility], [facility] [address] [place], [place] [id number] Med Management Social History Tobacco Use Types Packs/Day Years Used Date Smoking Tobacco: Never Smokeless Tobacco: Never Alcohol Use Standard Drinks/Week Comments No 0 (1 standard drink = 0.6 oz pur e alcohol) Comments Unknown Sex and Gender Information Value Date Recorded Sex Assigned at Not on file 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 documented in this encounter Plan of Treatment Not on file documented as of this encounter Visit Diagnoses Not on filedocumented in this encounter Care Teams Heat And Vent Aircraft Mechanic Relationship Specialty Start Date End Date Jason Winters MD [address] [place] [address] PCP - General Family Medicine 07/23/18 12/15/20 documented as of this encounter
--- OUTSIDE RECORDS SUMMARY | 2024-08-09 20:29 | XMS_ITS | Encounter Summary ---
Author Organization [facility] Address [address] [facility] [address] [place] [address] Care Team Providers Care Oiler And Greaser Name Role Phone Christine Kendall MD Unavailable [phone] Sita Magana MD Unavailable [phone] Nabila King MD Primary Care Provider [phone] Regulo Pandey MD Unavailable Gigi Méndez MD Unavailable [phone] Reason for Visit * Reason Comments Hospital Follow Up Encounter Details Date Type Department Care Team (Latest Contact Info) Description 02/18/2021 1:00 PM CDT Office Visit [facility] [address] [place] [address] Elizabeth Daniels, NAIL MAKING MACHINE TENDER [address] [place] [address] Hospital discharge follow-up (Primary Dx); [...] on file 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 Date of the afaz-ur-swwb visit 02/18/21 4. Complexity of care: Moderate__x___ [...] for sleep and nerves 2. Visit with financial professional in review the 2018 echocardiogram with the [...] with worsening or unimproved symptoms. Cosigned by Naibla King MD at 02/18/2021 2:58 PM CDT [...] for uric acid stone formation. Source: [employer]. Last revised 08-31-2017 Elizabeth Daniels NP LAB MICROBIOLOGY - GENERAL ORDERABLES Final Result FRANKIE [address] Department [place] [address] documented in this encounter Visit Diagnoses Diagnosis [...] 03/19/2021 added in this encounter Care Teams Oiler And Greaser Relationship Specialty Start Date End Date Nabila King MD [address] [place] [address] [address] [place] [address] PCP - General Internal Medicine 12/16/20 Christine Kendall MD Surgeon Ophthalmology 12/13/20 Sita Magana MD [address] [place] [address] [address] [place] [address] Consulting Physician Internal Medicine 12/13/20 Regulo Pandey MD [address] [place] [address] [address] [place] [address] Referring Physician Cardiovascular Disease 12/16/20 Gigi Méndez MD [address] [place] [address] [address] [place] [address] Referring Physician Cardiology 02/18/21 documented as of this encounter
--- OUTSIDE RECORDS SUMMARY | 2024-08-09 20:29 | XMS_ITS | Encounter Summary ---
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 Gender Identity Not on file Sexual Orientation [...] Results * eGFR (12/16/2020 4:29 PM CDT) [facility] eGFR 76 mL/min/1.7 3 m2 FRANKIE MOTLEY [...] BLOOD ORDERABLES Final Result Performing Organization Address [facility] de Phone Number FRANKIE MOTLEY [address] [place] [address] * Cholesterol, LDL, direct (12/16/2020 4:29 PM [...] BLOOD ORDERABLES Final Result Performing Organization Address [facility] de Phone Number FRANKIE MOTLEY [address] Department [place] [address] * Comprehensive metabolic panel (12/16/2020 4:29 PM [...] MD LAB BLOOD ORDERABLES Final Result FRANKIE [address] [address] Department [place] [address] * (ABNORMAL) T4, free (12/16/2020 4:29 PM CDT) Free T4 0.87(L) 0.90 - 1.70 ng/dL [facility] Blood specimen (specimen) 12/16/2020 4:29 PM CDT 12/16/2020 7:15 PM CDT us Nabila King MD LAB BLOOD ORDERABLES Final Result Performing Organization Address City/[facility]/ZIP Co de Phone Number [facility] [address] [address] [place] [address] * (ABNORMAL) TSH (12/16/2020 4:29 PM CDT) Thyroid Stimulating Hormone 5.94(H) 0.30 - 4.20 mcIUnit/mL [facility] Blood specimen (specimen) 12/16/2020 4:29 PM CDT 12/16/2020 7:15 PM CDT us Nabila King MD LAB BLOOD ORDERABLES Final Result Performing Organization Address [facility] de Phone Number [facility] [address] [address] [place] [address] * CRP (cardiac risk) (12/16/2020 4:29 PM CDT) Pathologist [facility] hsCRP 1.64 mg/L [facility] Comment: Interpretive data Adult only - values [...] last revised on 2018. Testing performed by: [facility], [address], [place]., [address] Blood specimen (specimen) 12/16/2020 4:29 PM CDT 12/17/2020 12:31 PM CDT us Nabila King MD LAB BLOOD ORDERABLES Final Result FRANKIE [address] [facility] Department [place] [address] documented in this encounter Visit Diagnoses Diagnosis Mitral valve disease Other and unspecified mitral valve diseases Multiple-type hyperlipidemia Other and unspecified hyperlipidemia Hypothyroidism, adult Other specified acquired hypothyroidism documented in this encounter Care Teams Manager Field Sales Relationship Specialty Start Date End Date Nabila King MD [address] [place] [address] PCP - General Internal Medicine 12/16/20 Christine Kendall MD Surgeon Ophthalmology 12/13/20 Sita Magana MD [address] [place] [address] Consulting Physician Internal Medicine 12/13/20 Regulo Pandey MD [address] [place] [address] Referring Physician Cardiovascular Disease 12/16/20 documented as of this encounter
--- OUTSIDE RECORDS SUMMARY | 2024-08-09 20:29 | XMS_ITS | Encounter Summary ---
Author Organization [facility] Address [address] [place] [address] Phone Care Team Providers Care Embalmer/Funeral Director Name Role Phone Jason Winters MD Primary Care Provider [phone] Encounter Details Date Type Department Care Team (Late st Contact Info) Description 10/28/2019 10:45 AM CDT Office Visit [facility] Ophthalmology [address] [facility] Medical Office Building 2 [address] [place] [address] Christine Kendall MD [address] [facility] DEPT OPHTHALMOLOGY, [facility] [address] [place] [address] Low-tension glaucoma, bilateral, severe stage (Primary Dx); [...] on file 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 Gender Identity Not on file Sexual [...] undergo trial of Doxy 50 mg/day per game and fish protector documented in this encounter Miscellaneous Notes * Assessment & Plan Note - Chrisitne Kendall MD - 10/28/2019 12:13 PM CDT Associated Problem(s): Squamous blepharitis of both eyes (Resolved 06/23/2024) Mild rosacea- to undergo trial of Doxy 50 mg/day per game and fish protector * Assessment & Plan Note - Christine [...] rhage C/D Ratio 1.0 0.95 Care Teams Embalmer/Funeral Director Relationship Specialty Start Date End Date Jason Winters MD [address] [place] [address] PCP - General Family Medicine 07/23/18 12/15/20 documented as of this encounter
--- OUTSIDE RECORDS SUMMARY | 2024-08-09 20:29 | XMS_ITS | Encounter Summary ---
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 Gender Identity Not on file Sexual [...] on filedocumented in this encounter Care Teams Prison Officer Relationship Specialty Start Date End Date Nabila King MD [address] [facility] [address] [place] [address] PCP - General Internal Medicine 12/16/20 Christine Kendall MD Surgeon Ophthalmology 12/13/20 Sita Magana MD [address] [facility] [address] [place] [address] Consulting Physician Internal Medicine 12/13/20 Regulo Pandey MD [address] [facility] [address] [place] [address] Referring Physician Cardiovascular Disease 12/16/20 documented as of this encounter
--- OUTSIDE RECORDS SUMMARY | 2024-08-09 20:29 | XMS_ITS | Encounter Summary ---
Author Organization [facility] Address [address] [place] [address] Phone Care Team Providers Care Manufacturing Engineer Assembly Name Role Phone Jason Winters MD Primary Care Provider [phone] Reason for Visit * Reason Onset Date Comments cancel shanon 01/27/2020 Pt cancel appoin tment Encounter Details Date Type Department Care Team (Late st Contact Info) Description 01/27/[address] Medical Office Building [address] [place] [address] Teresita Batres CMA cancel shanon (Pt cancel appointment) Social History Tobacco Use Types Packs/Day Years Used Date Smoking Tobacco: Never Smokeless Tobacco: Never Alcohol Use Standard Drinks/Week Comments No 0 (1 standard drink = 0.6 oz pur e alcohol) Comments Unknown Sex and Gender Information Value Date Recorded Sex Assigned at Not on file 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 documented in this encounter Plan of Treatment Not on file documented as of this encounter Visit Diagnoses Not on filedocumented in this encounter Care Teams Manufacturing Engineer Assembly Relationship Specialty Start Date End Date Jason Winters MD [address] [place] [address] PCP - General Family Medicine 07/23/18 12/15/20 documented as of this encounter
--- OUTSIDE RECORDS SUMMARY | 2024-08-09 20:29 | XMS_ITS | Encounter Summary ---
Author Organization [facility] Address [address] [place] [address] Phone Care Team Providers Care Community Service Manager Name Role Phone Jason Winters MD Primary Care Provider [phone] Encounter Details Date Type Department Care Team (Late st Contact Info) Description 05/06/2019 Orders Only [facility] Ophthalmology [address] [facility] Medical Office Building [address] [place] [address] Dodie Bear COMT Social History Tobacco Use Types Packs/Day Years Used Date Smoking Tobacco: Never Smokeless Tobacco: Never Alcohol Use Standard Drinks/Week Comments No 0 (1 standard drink = 0.6 oz pur e alcohol) Comments Unknown Sex and Gender Information Value Date Recorded Sex Assigned at Not on file 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
--- OUTSIDE RECORDS SUMMARY | 2024-08-09 20:29 | XMS_ITS | Encounter Summary ---
Author Organization [facility] Address [address] [place] [address] Phone Care Team Providers Care Wire Repairer Name Role Phone Jason Winters MD Primary Care Provider [phone] Christine Kendall MD Unavailable [phone] Sita Magana MD Unavailable [phone] Nabila King MD Primary Care Provider [phone] Regulo Pandey MD Unavailable Gigi Méndez MD Unavailable [phone] Bc Martinez MD Unavailable [phone] Bc Martinez MD Unavailable [phone] Martin Correa MD Unavailable [phone] Gildardo Gonzáles Si, MD Unavailable Encounter Details Date Type Department Care Team (Late st Contact Info) Description 09/09/2019 Orders Only [facility] [address] [place] [address] Nabila King MD [address] [place] [address] Social History Tobacco Use Types Packs/Day Years Used Date Smoking Tobacco: Never Smokeless Tobacco: Never Alcohol Use Standard Drinks/Week Comments No 0 (1 standard drink = 0.6 oz pur e alcohol) Comments Unknown Sex and Gender Information Value Date Recorded Sex Assigned at Not on file 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 Gender Identity Not on file [...] on filedocumented in this encounter Care Teams Wire Repairer Relationship Specialty Start Date End Date Jason Winters MD [address] [place] [address] PCP - General Family Medicine 07/23/18 12/15/20 Nabila King MD [facility] [address] [place] [address] PCP - General Internal Medicine 12/16/20 Christine Kendall MD [address] [place] [address] Surgeon Ophthalmology 12/13/20 Sita Magana MD [facility] [address] [place] [address] Consulting Physician Internal Medicine 12/13/20 Regulo Pandey MD [address] [place] [address] Referring Physician Cardiovascular Disease 12/16/20 Gigi Méndez MD [address] [place] [address] Referring Physician Cardiology 02/18/21 Bc Martinez MD [address] [place] [address] Consulting Physician Cardiology 10/22/21 08/21/23 Bc Martinez MD [address] [place] [address] Referring Physician Cardiology 08/22/23 Martin Correa MD [address] [place] [address] Consulting Physician Cardiothoracic Surgery 08/22/23 NiviaGildardo Si, MD [address] [facility] [address] Consulting Physician Neurology 07/09/24 documented as of this encounter
--- OUTSIDE RECORDS SUMMARY | 2024-08-09 20:29 | XMS_ITS | Encounter Summary ---
Author Organization [facility] Address [address] [facility] [address] [place] [address] Care Team Providers Care Illuminator Name Role Phone Christine Kendall MD Unavailable [phone] Sita Magana MD Unavailable [phone] Nabila King MD Primary Care Provider Regulo Pandey MD Unavailable Encounter Details Date Type Department Care Team (Late st Contact Info) Description 12/28/2020 Telephone [facility] [address] [place] [address] Nabila King MD [address] [place] [address] Social History Tobacco Use Types Packs/Day Years [...] on file 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 Gender Identity Not on file Sexual Orientation [...] on filedocumented in this encounter Care Teams Illuminator Relationship Specialty Start Date End Date Nabila King MD [address] [place] [address] [address] [place] [address] PCP - General Internal Medicine 12/16/20 Christine Kendall MD Surgeon Ophthalmology 12/13/20 Sita Magana MD [address] [place] [address] [address] [place] [address] Consulting Physician Internal Medicine 12/13/20 Regulo Pandey MD [address] [place] [address] [address] [place] [address] Referring Physician Cardiovascular Disease 12/16/20 documented as of this encounter
--- OUTSIDE RECORDS SUMMARY | 2024-08-09 20:29 | XMS_ITS | Encounter Summary ---
Author Organization [facility] Address [address] [facility] [address] [place] [address] Care Team Providers Care Dicer Operator Name Role Phone Christine Kendall MD Unavailable [phone] Sita Magana MD Unavailable [phone] Nabila King MD Primary Care Provider + [phone] Regulo Pandey MD Unavailable Gigi Méndez MD Unavailable [phone] Encounter Details Date Type Department Care Team (Late st Contact Info) Description 02/23/2021 Telephone [facility] [address] [place] [address] Nabila King MD [address] [place] [address] Social History Tobacco Use Types Packs/Day Years [...] on file Legal 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 Paige Gonzalez. Cbn: [phone] documented in this encounter Plan of Treatment Not on file documented as of this encounter Visit Diagnoses Not on filedocumented in this encounter Care Teams Dicer Operator Relationship Specialty Start Date End Date Nabila King MD [address] [place] [address] [address] [place] [address] PCP - General Internal Medicine 12/16/20 Christine Kendall MD Surgeon Ophthalmology 12/13/20 Sita Magana MD [facility] [address] [place] [address] Consulting Physician Internal Medicine 12/13/20 Regulo Pandey MD [address] [place] [address] Referring Physician Cardiovascular Disease 12/16/20 Gigi Méndez MD [address] [place] [address] Referring Physician Cardiology 02/18/21 documented as of this encounter
--- OUTSIDE RECORDS SUMMARY | 2024-08-09 20:29 | XMS_ITS | Encounter Summary ---
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 Testing performed by [facility] Microbiology Laboratory ([phone]) Elizabeth Daniels NP LAB MICROBIOLOGY - GENERAL ORDERABLES Final Result Performing Organization Address City/[facility] Co de Phone Number [facility] [address] [place] [address] * (ABNORMAL) Urinalysis, microscopic only (02/18/2021 1:26 PM CDT) WBC, ur 21-50(A) 0 - 5 /HPF [facility] RBC, ur 3-5(A) 0 - 2 /HPF [facility] Epithelial cells, squamous, ur 1-5 0 - 5 /HPF [facility] Culture Reflex Comment Reflex to urine culture will be performed. [facility] Urine, clean voided 02/18/2021 1:26 PM CDT 02/18/2021 4:42 PM CDT Elizabeth Daniels NP LAB URINE ORDERABL ES Final Result Performing Organization Address [facility]/ZIP Co de Phone Number [facility] [address] [place] [address] * (ABNORMAL) Urinalysis reflex to microscopic and [...] tendency for uric acid stone formation. Source: [employer] List. Last revised 08-31-2017 Elizabeth Daniels FILM COLOR TESTER LAB MICROBIOLOGY - GENERAL ORDERABLES Final Result [facility] [address] Department [place] [address] documented in this encounter Visit Diagnoses Diagnosis Urinary frequency documented in this encounter Care Teams Features Editor Relationship Specialty Start Date End Date Nabila King MD [address] [place] [address] [address] [place] [address] PCP - General Internal Medicine 12/16/20 Christine Kendall MD Surgeon Ophthalmology 12/13/20 Sita Magana MD [address] [place] [address] [address] [place] [address] Consulting Physician Internal Medicine 12/13/20 Regulo Pandey MD [address] [place] [address] [address] [place] [address] Referring Physician Cardiovascular Disease 12/16/20 Gigi Méndez MD [address] [place] [address] [address] [place] [address] Referring Physician Cardiology 02/18/21 documented as of this encounter
--- OUTSIDE RECORDS SUMMARY | 2024-08-09 20:29 | XMS_ITS | Encounter Summary ---
Author Organization [facility] Address [address] [email or web address] [address] Phone Care Team Providers Care Supervisor Fabrication Department Name Role Phone Jason Winters MD Primary Care Provider [phone] Christine Kendall MD Unavailable [phone] Sita Magana MD Unavailable [phone] Nabila King MD Primary Care Provider [phone] Regulo Pandey MD Unavailable Gigi Méndez MD Unavailable [phone] Bc Martinez MD Unavailable [phone] Bc Martinez MD Unavailable [phone] Martin Correa MD Unavailable [phone] Gildardo Gonzáles Si, MD Unavailable Encounter Details Date Type Department Care Team (Late st Contact Info) Description 05/23/2019 Orders Only [facility] [address] [email or web address] [address] Nabila King MD [address] [place] [address] Social History Tobacco Use Types Packs/Day Years Used Date Smoking Tobacco: Never Smokeless Tobacco: Never Alcohol Use Standard Drinks/Week Comments No 0 (1 standard drink = 0.6 oz pur e alcohol) Comments Unknown Sex and Gender Information Value Date Recorded Sex Assigned at Not on file 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 Gender Identity Not on file Sexual Orientation [...] filedocumented in this encounter Care Teams Supervisor Fabrication Department Relationship Specialty Start Date End Date Jason Winters MD [address] [place] [address] PCP - General Family Medicine 07/23/18 12/15/20 Nabila King MD [facility] [address] [place] [address] PCP - General Internal Medicine 12/16/20 Christine Kendall MD [address] [place] [address] Surgeon Ophthalmology 12/13/20 Sita Magana MD [facility] [address] [place] [address] Consulting Physician Internal Medicine 12/13/20 Regulo Pandey MD [address] [place] [address] Referring Physician Cardiovascular Disease 12/16/20 Gigi Méndez MD [address] [place] [address] Referring Physician Cardiology 02/18/21 Bc Martinez MD [address] [place] [address] Consulting Physician Cardiology 10/22/21 08/21/23 Bc Martinez MD [address] [place] [address] Referring Physician Cardiology 08/22/23 Martin Correa MD [address] [place] [address] Consulting Physician Cardiothoracic Surgery 08/22/23 NiviaGildardo Si, MD [address] [facility] [place] [address] Consulting Physician Neurology 07/09/24 documented as of this encounter
--- OUTSIDE RECORDS SUMMARY | 2024-08-09 20:29 | XMS_ITS | Encounter Summary ---
Author Organization [facility] Address [address] [facility] [address] [place] [address] Care Team Providers Care Seal Mixing Operator Name Role Phone Christine Kendall MD Unavailable [phone] Sita Magana MD Unavailable [phone] Nabila King MD Primary Care Provider + [phone] Regulo Pandey MD Unavailable Encounter Details Date Type Department Care Team (Late st Contact Info) Description 12/16/2020 4:30 PM CDT Lab [facility] [address] [place] [address] Palpitation Social History Tobacco Use Types [...] on file 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 Gender Identity Not on file Sexual Orientation Not on file 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 Not on file documented as of this encounter Plan of Treatment Not on file documented as of this encounter Visit Diagnoses Diagnosis Palpitation Palpitations documented in this encounter Care Teams Seal Mixing Operator Relationship Specialty Start Date End Date Nabila King MD [address] [place] [address] [facility] [address] [place] [address] PCP - General Internal Medicine 12/16/20 Christine Kendall MD Surgeon Ophthalmology 12/13/20 Sita Magana MD [address] [place] [address] Consulting Physician Internal Medicine 12/13/20 Regulo Pandey MD [address] [place] [address] Referring Physician Cardiovascular Disease 12/16/20 documented as of this encounter
--- OUTSIDE RECORDS SUMMARY | 2024-08-09 20:29 | XMS_ITS | Encounter Summary ---
Author Organization [facility] Address [address] [place] [address] Phone Care Team Providers Care Concrete Puddler Name Role Phone Jason Winters MD Primary Care Provider [phone] Encounter Details Date Type Department Care Team (Late st Contact Info) Description 05/11/2020 10:45 AM CDT [facility] [address] [facility] Medical Office Building [address] [place] [address] Christine Kendall MD [address] [facility] DEPT OPHTHALMOLOGY, [facility] [address] [place] [address] Low-tension glaucoma, bilateral, severe stage (Primary Dx); [...] file Legal Sex Female 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
--- OUTSIDE RECORDS SUMMARY | 2024-08-09 20:29 | XMS_ITS | Encounter Summary ---
Author Organization [facility] Address [address] [facility] [address] [place] [address] Care Team Providers Care Cook Helper Vegetable Name Role Phone Christine Kendall MD Unavailable [phone] Sita Magana MD Unavailable [phone] Nabila King MD Primary Care Provider + [phone] Regulo Pandey MD Unavailable Gigi Méndez MD Unavailable [phone] Encounter Details Date Type Department Care Team (Late st Contact Info) Description 02/18/2021 1:30 PM CDT [facility] [address] [place] [address] Social History Tobacco Use Types Packs/Day [...] on file 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 Gender Identity Not on file Sexual Orientation Not on file 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 Not on file documented as of this encounter Plan of Treatment Not on file documented as of this encounter Visit Diagnoses Not on filedocumented in this encounter Care Teams Cook Helper Vegetable Relationship Specialty Start Date End Date Nabila King MD [address] [place] [address] [address] [place] [address] PCP - General Internal Medicine 12/16/20 Christine Kendall MD Surgeon Ophthalmology 12/13/20 Sita Magana MD [address] [place] [address] [address] [place] [address] Consulting Physician Internal Medicine 12/13/20 Regulo Pandey MD [address] [place] [address] [address] [place] [address] Referring Physician Cardiovascular Disease 12/16/20 Gigi Méndez MD [address] [facility] [address] [place] [address] Referring Physician Cardiology 02/18/21 documented as of this encounter
--- OUTSIDE RECORDS SUMMARY | 2024-08-09 20:29 | XMS_ITS | Encounter Summary ---
Author Organization [facility] Address [address] [place] [address] Phone Care Team Providers Care Fire Pot Operator Name Role Phone Jason Winters MD Primary Care Provider [phone] Christine Kendall MD Unavailable [phone] Sita Magana MD Unavailable [phone] Nabila King MD Primary Care Provider [phone]- [phone] Regulo Pandey MD Unavailable Gigi Méndez MD Unavailable [phone] Bc Martinez MD Unavailable [phone] cB Martinez MD Unavailable [phone] Martin Correa MD Unavailable [phone] Gildardo Gonzáles Si, MD Unavailable Encounter Details Date Type Department Care Team (Late st Contact Info) Description 05/07/2020 Orders Only [facility] [address] [place] [address] Nabila King MD [address] [place] [address] Social History Tobacco Use Types Packs/Day Years Used Date Smoking Tobacco: Never Smokeless Tobacco: Never Alcohol Use Standard Drinks/Week Comments No 0 (1 standard drink = 0.6 oz pur e alcohol) Comments Unknown Sex and Gender Information Value Date Recorded Sex Assigned at Not on file 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 Gender Identity Not on file Sexual [...] filedocumented in this encounter Care Teams Fire Pot Operator Relationship Specialty Start Date End Date Jason Winters MD [address] [place] [address] PCP - General Family Medicine 07/23/18 12/15/20 [facility]abil[facility] [address] [place] [address] PCP - General Internal Medicine 12/16/20 Christine Kendall MD [address] [place] [address] Surgeon Ophthalmology 12/13/20 Sita Magana MD [address] [place] [address] Consulting Physician Internal Medicine 12/13/20 Regulo Pandey MD [address] [place] [address] Referring Physician Cardiovascular Disease 12/16/20 Gigi Méndez MD [address] [place] [address] Referring Physician Cardiology 02/18/21 Bc Martinez MD [address] [place] [address] Consulting Physician Cardiology 10/22/21 08/21/23 Bc Martinez MD [address] [place] [address] Referring Physician Cardiology 08/22/23 Martin Correa MD [address] [place] [address] Consulting Physician Cardiothoracic Surgery 08/22/23 [facility] MD [address] [facility] [place] [address] Consulting Physician Neurology 07/09/24 documented as of this encounter
--- OUTSIDE RECORDS SUMMARY | 2024-08-09 20:29 | XMS_ITS | Encounter Summary ---
Author Organization [facility] Address [address] [facility] [address] [place] [address] Care Team Providers Care Sales Branch Manager Name Role Phone Christine Kendall MD Unavailable [phone] Sita Magana MD Unavailable [phone] Nabila King MD Primary Care Provider + [phone] Regulo Pandey MD Unavailable Gigi Méndez MD Unavailable [phone] Encounter Details Date Type Department Care Team (Late st Contact Info) Description 02/19/2021 Telephone [facility] [address] [place] [address] Elizabeth Daniels NP [address] [place] [address] Social History Tobacco Use Types [...] file 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 Gender Identity Not on file Sexual [...] on filedocumented in this encounter Care Teams Sales Branch Manager Relationship Specialty Start Date End Date Nabila King MD [address] [place] [address] [address] [place] [address] PCP - General Internal Medicine 12/16/20 Christine Kendall MD Surgeon Ophthalmology 12/13/20 Sita Magana MD [address] [place] [address] [address] [place] [address] Consulting Physician Internal Medicine 12/13/20 Regulo Pandey MD [address] [place] [address] [address] [place] [address] Referring Physician Cardiovascular Disease 12/16/20 Gigi Méndez MD [address] [place] [address] [address] [place] [address] Referring Physician Cardiology 02/18/21 documented as of this encounter
--- OUTSIDE RECORDS SUMMARY | 2024-08-09 20:29 | XMS_ITS | Encounter Summary ---
Author Organization [facility] Address [address] [facility] [address] [place] [address] Care Team Providers Care Animal Taxonomist Name Role Phone Christine Kendall MD Unavailable [phone] Sita Magana MD Unavailable [phone] Nabila King MD Primary Care Provider + [phone] Regulo Pandey MD Unavailable Gigi Méndez MD Unavailable [phone] Encounter Details Date Type Department Care Team (Late st Contact Info) Description 02/23/2021 Telephone [facility] [address] [place] [address] Nabila King MD [address] [place] [address] Social History Tobacco Use Types Packs/Day Years [...] on file 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 [facility][id number] patient documented in this encounter Plan of Treatment Not on file documented as of this encounter Visit Diagnoses Not on filedocumented in this encounter Care Teams Animal Taxonomist Relationship Specialty Start Date End Date Nabila King MD [address] [place] [address] [address] PCP - General Internal Medicine 12/16/20 Christine Kendall MD Surgeon Ophthalmology 12/13/20 Sita Magana MD [address] [place] [address] [address] [place] [address] Consulting Physician Internal Medicine 12/13/20 Regulo Pandey MD [address] [place] [address] [address] [place] [address] Referring Physician Cardiovascular Disease 12/16/20 Gigi Méndez MD [address] [place] [address] [address] [place] [address] Referring Physician Cardiology 02/18/21 documented as of this encounter
--- OUTSIDE RECORDS SUMMARY | 2024-08-09 20:29 | XMS_ITS | Encounter Summary ---
Author Organization [facility] Address [address] [place] [address] Phone Care Team Providers Care Self Defense Instructor Name Role Phone Jason Winters MD Primary Care Provider [phone] Encounter Details Date Type Department Care Team (Late st Contact Info) Description 04/26/2019 9:15 AM CDT Office Visit [facility] Ophthalmology [address] [facility] Medical Office Building 2 [address] [place] [address] Christine Kendall MD [address] [facility] DEPT OPHTHALMOLOGY, [facility] [address] [place] [address] Low-tension glaucoma, bilateral, severe stage (Primary Dx); Nuclear senile cataract, right Social History Tobacco Use Types Packs/Day Years Used Date Smoking Tobacco: Never Smokeless Tobacco: Never Alcohol Use Standard Drinks/Week Comments No 0 (1 standard drink = 0.6 oz pur e alcohol) Comments Unknown Sex and Gender Information Value Date Recorded Sex Assigned at Not on file 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
--- OUTSIDE RECORDS SUMMARY | 2024-08-09 20:29 | XMS_ITS | Encounter Summary ---
Author Organization [facility] Address [address] [place] [address] Phone Care Team Providers Care Podiatric Foot And Ankle Specialist Name Role Phone Jason Winters MD Primary Care Provider [phone] Christine Kendall MD Unavailable [phone] Sita Magana MD Unavailable [phone] Encounter Details Date Type Department Care Team (Late st Contact Info) Description 12/14/2020 10:45 AM CDT Office Visit [facility] Ophthalmology [address] [facility] Medical Office Building 2 [address] [place] [address] Christine Kendall MD [address] [facility] DEPT OPHTHALMOLOGY, [facility] [address] [place], [place] [address] Low-tension glaucoma, bilateral, severe stage (Primary Dx); [...] on file 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 Gender Identity Not on file Sexual Orientation [...] Note - Christine Kendall MD - 12/14/2020 11:29 AM CDT Associated [...] rhage C/D Ratio 1.0 0.95 Care Teams Podiatric Foot And Ankle Specialist Relationship Specialty Start Date End Date Jason Winters MD [address] [place] [address] PCP - General Family Medicine 07/23/18 12/15/20 Christine Kendall MD [address] [place] [address] Surgeon Ophthalmology 12/13/20 Sita Magana MD [address] [facility] 200 [place] [address] Consulting Physician Internal Medicine 12/13/20 documented as of this encounter
--- OUTSIDE RECORDS SUMMARY | 2024-08-09 20:29 | XMS_ITS | Encounter Summary ---
Author Organization [facility] Address [address] [place] [address] Phone Care Team Providers Care Professor Of Psychiatry Name Role Phone Christine Kendall MD Unavailable [phone] Sita Magana MD Unavailable [phone] Nabila King MD Primary Care Provider Regulo Pandey MD Unavailable Gigi Méndez MD Unavailable [phone] Encounter Details Date Type Department Care Team (Late st Contact Info) Description 02/15/2021 Orders Only [facility] [address] [place] [address] Nabila King MD [address] [place] [address] Social History Tobacco Use Types [...] on file 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 Gender Identity Not on file Sexual Orientation [...] on filedocumented in this encounter Care Teams Professor Of Psychiatry Relationship Specialty Start Date End Date Nabila King MD [address] [facility] [address] [place] [address] PCP - General Internal Medicine 12/16/20 Christine Kendall MD Surgeon Ophthalmology 12/13/20 Sita Magana MD [address] [place] [address] [address] [place] [address] Consulting Physician Internal Medicine 12/13/20 Regulo Pandey MD [facility] [address] [place] [address] Referring Physician Cardiovascular Disease 12/16/20 Gigi Méndez MD [address] [facility] [address] [place] [address] Referring Physician Cardiology 02/18/21 documented as of this encounter
--- OUTSIDE RECORDS SUMMARY | 2024-08-09 20:29 | XMS_ITS | Encounter Summary ---
Author Organization [facility] Address [address] [facility] [address] [place] [address] Care Team Providers Care Boom Worker Name Role Phone Christine Kendall MD Unavailable [phone] Sita Magana MD Unavailable [phone] Nabila King MD Primary Care Provider Regulo Pandey MD Unavailable Encounter Details Date Type Department Care Team (Late st Contact Info) Description 12/29/2020 Orders Only [facility] [address] [place] [address] Nabila King MD [address] [place] [address] Adenoma of colon (Primary Dx) Social History [...] on file 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 Gender Identity Not on file Sexual Orientation Not on file 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 Not on file documented as of this encounter Plan of Treatment Not on file documented as of this encounter Visit Diagnoses Diagnosis Adenoma of colon- Primary documented in this encounter Care Teams Boom Worker Relationship Specialty Start Date End Date Nabila King MD [address] [place] [address] PCP - General Internal Medicine 12/16/20 Christine Kendall MD Surgeon Ophthalmology 12/13/20 Sita Magana MD [address] [place] [address] Consulting Physician Internal Medicine 12/13/20 Regulo Pandey MD [address] [place] [address] Referring Physician Cardiovascular Disease 12/16/20 documented as of this encounter
--- OUTSIDE RECORDS SUMMARY | 2024-08-09 20:29 | XMS_ITS | Encounter Summary ---
Author Organization [facility] Address [address] [place] [address] Phone Care Team Providers Care Route Agent Name Role Phone Jason Winters MD Primary Care Provider [phone] Encounter Details Date Type Department Care Team (Late st Contact Info) Description 02/04/2019 Orders Only [facility] [address] [facility] Medical Office Building 2 [address] [place] [address] Sita Magana MD [address] [facility] [address] [place] [address] Osteopenia of multiple sites (Primary Dx) Social History Tobacco Use Types Packs/Day Years Used Date Smoking Tobacco: Never Smokeless Tobacco: Never Alcohol Use Standard Drinks/Week Comments No 0 (1 standard drink = 0.6 oz pur e alcohol) Comments Unknown Sex and Gender Information Value Date Recorded Sex Assigned at Not on file 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
--- OUTSIDE RECORDS SUMMARY | 2024-08-09 20:29 | XMS_ITS | Encounter Summary ---
Author Organization [facility] Address [address] [place] [address] Phone Care Team Providers Care Boat Tender Name Role Phone Jason Winters MD Primary Care Provider [phone] Reason for Visit * Reason Onset Date Comments problem 12/23/2019 Encounter Details Date Type Department Care Team (Late st Contact Info) Description 12/23/2019 Telephone [facility] Ophthalmology [facility] [place] [address] Christine Kendall MD [address] [facility] DEPT OPHTHALMOLOGY, [facility] [address] [place], [place] [address] problem Social History Tobacco Use Types Packs/Day Years Used Date Smoking Tobacco: Never Smokeless Tobacco: Never Alcohol Use Standard Drinks/Week Comments No 0 (1 standard drink = 0.6 oz pur e alcohol) Comments Unknown Sex and Gender Information Value Date Recorded Sex Assigned at Not on file 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 Was seeing if the there is anything else she could try. documented in this encounter Plan of Treatment Not on file documented as of this encounter Visit Diagnoses Not on filedocumented in this encounter Care Teams Boat Tender Relationship Specialty Start Date End Date Jason Winters MD [address] [place] [address] PCP - General Family Medicine 07/23/18 12/15/20 documented as of this encounter
--- OUTSIDE RECORDS SUMMARY | 2024-08-09 20:29 | XMS_ITS | Encounter Summary ---
Author Organization [facility] Address [address] [facility] [address] [place] [address] Care Team Providers Care Desktop Manager Name Role Phone Christine Styles MD Unavailable Sita Magana MD Unavailable [phone] Nabila King MD Primary Care Provider [phone] Regulo Pandey MD Unavailable Reason for Visit * Reason Comments New Patient Encounter Details Date Type Department Care Team (Late st Contact Info) Description 12/16/2020 2:20 PM CDT Office Visit [facility] [address] [place] [address] Nabila King MD [address] [place] [address] Acute on chronic diastolic heart failure (CMS/HCC) [...] on file 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 Visit with delivery driver/customer service in review the 2018 echocardiogram with the [...] Primary Pharmacy/DME suppliers: [facility] - [place], [place] - [address] [place] [address] [address] [facility] [address] [facility] - [place], [place] - [address] [place] [address] [address] [facility] [address] PLEASE BRING IN ALL PILL BOTTLES TO EVERY OFFICE VISIT, THIS IS ESSENTIAL FOR ACCURATE REFILLS AND MAINTAINING AN ACCURATE MEDICATION LIST. PLEASE SIGN UP FOR MyCSADIAT so that you may have access to your labs and chart documentation IF YOU HAVE TROUBLE WITH THIS PROCESS CALL [phone] Review this echocardiogram with her delivery driver/customer service at next follow-up in ask if you [...] 1 tablet (50 mcg total) by mouth coupon clerk before breakfast 90 tablet 3 12/16/2020 1 [...] for sleep and nerves 2. Visit with delivery driver/customer service in review the 2018 echocardiogram with the [...] Primary Pharmacy/DME suppliers: [facility] - [place], [place] - [address] [place] [address] [place] [address] [address] [facility] [address] [facility] - [place], [place] - [address] [place] [address] [address] [facility] [address] PLEASE BRING IN ALL PILL BOTTLES TO EVERY OFFICE VISIT, THIS IS ESSENTIAL FOR ACCURATE REFILLS AND MAINTAINING AN ACCURATE MEDICATION LIST. PLEASE SIGN UP FOR SocialGOT so that you may have access to your labs and chart documentation IF YOU HAVE TROUBLE WITH THIS PROCESS CALL [phone] Review this echocardiogram with her delivery driver/customer service at next follow-up in ask if you [...] her friend Mr. Sharpe transferring from her [place] Dr. Winters who was a long-term family [...] She does haveappointment coming up with her delivery driver/customer service. 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 Recently she has been suffering palpitations and thought she had atrial fibrillation due to her background tonursing. She has not had this documented on any rhythm strip or EKG. She is advised to see her delivery driver/customer service and consider 30 day CardioNet Her cardiac [...] eyelids of both eyes Following with Dr. SYTLES for her glaucoma and this new diagnosis of Eye rosacea, she has good results with the recent addition of Vibramycin antibiotic to her regimen 8. Hypothyroidism, adult On very low-dose Synthroid for your she is due for update labs to consider dose adjustment - levothyroxine (SYNTHROID) 50 mcg tablet; Take 1 tablet (50 mcg total) by mouth coupon clerk before breakfast Dispense: 90 tablet; Refill: 3 [...] Gatherings with Friends and Family: ??? Attends Taoism Services: ??? Active Member of Clubs or [...] THIS VISIT Current Outpatient Medications Ordered in [facility] Medication Sig Dispense Refill ??? cholecalciferol (VITAMIN D-3) 2,000 unit tablet 3,000 Units ??? doxycycline hyclate 50 mg tablet Take 1 mg by mouth daily 30 tablet 11 ??? ketorolac (ACULAR LS) 0.4 % drops Administer 1 drop into both eyes as needed (as needed) 5 mL 3 ??? levothyroxine (SYNTHROID) 50 mcg tablet Take 1 tablet (50 mcg total) by mouth coupon clerk before breakfast 90 tablet 3 ??? melatonin 5 mg capsule take 1 tablet every night before bed 0 ??? multivitamin capsule Take 1 capsule by mouth daily ??? traZODone (DESYREL) 50 mg tablet Take 0.25 tablets (12.5 mg total) by mouth nightly 15 tablet 3 No current [facility]-ordered facility-administered medications on file. ALLERGIES is [...] last revised on 2018. Testing performed by: [facility], [address] [place]., [address] Blood specimen (specimen) 12/16/2020 4:29 PM CDT 12/17/2020 12:31 PM CDT us Nabila King MD LAB BLOOD ORDERABLES Final Result Performing Organization Address [facility] Co de Phone Number FRANKIE MOTLEY [address] Department [place] [address] * (ABNORMAL) TSH (12/16/2020 4:29 PM CDT) Thyroid Stimulating Hormone 5.94(H) 0.30 - 4.20 mcIUnit/mL [facility] Blood specimen (specimen) 12/16/2020 4:29 PM CDT 12/16/2020 7:15 PM CDT us Nabila King MD LAB BLOOD ORDERABLES Final Result Performing Organization Address [facility] Co de Phone Number FRANKIE [address] Department [place] [address] * (ABNORMAL) T4, free (12/16/2020 4:29 PM CDT) Free T4 0.87(L) 0.90 - 1.70 ng/dL [facility] Blood specimen (specimen) 12/16/2020 4:29 PM CDT 12/16/2020 7:15 PM CDT us Nabila King MD LAB BLOOD ORDERABLES Final Result Performing Organization Address [facility]/ZIP Co de Phone Number FRANKIE MOTLEY [address] [place] [address] * Comprehensive metabolic panel (12/16/2020 4:29 PM [...] BLOOD ORDERABLES Final Result Performing Organization Address City/[facility]/ZIP Co de Phone Number FRANKIE MOTLEY [address] [place] [address] * Cholesterol, LDL, direct (12/16/2020 4:29 PM [...] MD LAB BLOOD ORDERABLES Final Result FRANKIE [address] Department [place] [address] documented in this encounter Visit Diagnoses Diagnosis [...] 12/16/2020 added in this encounter Care Teams Desktop Manager Relationship Specialty Start Date End Date Nabila King MD [address] [place] [address] [address] [place] [address] PCP - General Internal Medicine 12/16/20 Christine Styles MD Surgeon Ophthalmology 12/13/20 Sita Magana MD [address] [place] [address] [address] [place] [address] Consulting Physician Internal Medicine 12/13/20 Regulo Pandey MD [facility] [address] [place] [address] Referring Physician Cardiovascular Disease 12/16/20 documented as of this encounter
--- OUTSIDE RECORDS SUMMARY | 2024-08-09 20:29 | XMS_ITS | Encounter Summary ---
Author Organization [facility] Address [address] [place] [address] Phone Care Team Providers Care Energy Control Officer Name Role Phone Jason Winters MD Primary Care Provider [phone] Christine Kendall MD Unavailable [phone] Sita Magana MD Unavailable [phone] Encounter Details Date Type Department Care Team (Late st Contact Info) Description 12/14/2020 10:00 AM CDT Imaging Exam [facility] Ophthalmology 10 [facility] Medical Office Building [address] [place] [address] Low-tension glaucoma, bilateral, severe stage [...] on file 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
--- OUTSIDE RECORDS SUMMARY | 2024-08-09 20:29 | XMS_ITS | Encounter Summary ---
Author Organization 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
--- OUTSIDE RECORDS SUMMARY | 2024-08-09 20:29 | XMS_ITS | Encounter Summary ---
Author Organization [facility] Address [address] [place] [address] Phone Care Team Providers Care Food Service Ambassador Name Role Phone Jason Winters MD Primary Care Provider [phone] Reason for Visit * (Routine) - Closed Specialty Diagnoses / Procedures Referred By Contac t Referred To Contact Diagnoses Low-tension glaucoma, bilateral, severe stage Procedures Dyer Visual Field - OU - Both Eyes Christine Kendall MD Phone: tel: fax: [facility] (All Locations) Referral ID Status Reason Start Date Expiration Date Visits Re quested Visits Authorized [id number] Closed 01/21/2019 08/01/2020 1 1 Encounter Details Date Type Department Care Team (Late st Contact Info) Description 10/28/2019 10:20 AM CDT Imaging Exam [facility] Ophthalmology 10 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
--- OUTSIDE RECORDS SUMMARY | 2024-08-09 20:29 | XMS_ITS | Encounter Summary ---
Author Organization [facility] Address [address] [place] [address] Phone Care Team Providers Care Manager Strategic Partnerships Name Role Phone Jason Winters MD Primary Care Provider [phone] Christine Kendall MD Unavailable [phone] Sita Magana MD Unavailable [phone] Nabila King MD Primary Care Provider + [phone] Regulo Pandey MD Unavailable Gigi Méndez MD Unavailable [phone] Bc Martinez MD Unavailable [phone] Bc Martinez MD Unavailable [phone] Martin Correa MD Unavailable [phone] Gildardo Gonzáles Si, MD Unavailable Encounter Details Date Type Department Care Team (Late st Contact Info) Description 03/12/2019 Orders Only [facility] [address] [place] [address] Nabila King MD [address] [place] [address] Social History Tobacco Use Types Packs/Day Years Used Date Smoking Tobacco: Never Smokeless Tobacco: Never Alcohol Use Standard Drinks/Week Comments No 0 (1 standard drink = 0.6 oz pur e alcohol) Comments Unknown Sex and Gender Information Value Date Recorded Sex Assigned at Not on file 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 Gender Identity Not on file Sexual Orientation [...] filedocumented in this encounter Care Teams Manager Strategic Partnerships Relationship Specialty Start Date End Date Jason Winters MD [address] [place] [address] PCP - General Family Medicine 07/23/18 12/15/20 Nabila King [facility] [address] [place] [address] PCP - General Internal Medicine 12/16/20 Christine Kendall MD [address] [place] [address] Surgeon Ophthalmology 12/13/20 Sita Magana MD [facility] [address] [place] [address] Consulting Physician Internal Medicine 12/13/20 Regulo Pandey MD [address] [place] [address] Referring Physician Cardiovascular Disease 12/16/20 Gigi Méndez MD [address] [place] [address] Referring Physician Cardiology 02/18/21 Bc Martinez MD [address] [place] [address] Consulting Physician Cardiology 10/22/21 08/21/23 Bc Martinez MD [address] [place] [address] Referring Physician Cardiology 08/22/23 Martin Correa MD [address] [place] [address] Consulting Physician Cardiothoracic Surgery 08/22/23 NiviaGildardo Si, MD [address] [facility] [place] [address] Consulting Physician Neurology 07/09/24 documented as of this encounter
--- OUTSIDE RECORDS SUMMARY | 2024-08-09 20:29 | XMS_ITS | Encounter Summary ---
Author Organization [facility] Address [address] [place] [address] Phone Care Team Providers Care Digital Marketer Name Role Phone Jason Winters MD Primary Care Provider [phone] Christine Kendall MD Unavailable [phone] Sita Magana MD Unavailable [phone] Nabila King MD Primary Care Provider [phone]- [phone] Regulo Pandey MD Unavailable Gigi Méndez MD Unavailable [phone] Bc Martinez MD Unavailable [phone] Bc Martinez MD Unavailable [phone] Martin Correa MD Unavailable [phone] Gildardo Gonzáles Si, MD Unavailable Encounter Details Date Type Department Care Team (Late st Contact Info) Description 06/17/2019 Orders Only [facility] [address] [place] [address] Nabila King MD [address] [place] [address] Social History Tobacco Use Types Packs/Day Years Used Date Smoking Tobacco: Never Smokeless Tobacco: Never Alcohol Use Standard Drinks/Week Comments No 0 (1 standard drink = 0.6 oz pur e alcohol) Comments Unknown Sex and Gender Information Value Date Recorded Sex Assigned at Not on file 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 [address] [place] [address] PCP - General Internal Medicine 12/16/20 Christine Kendall MD [address] [place] [address] Surgeon Ophthalmology 12/13/20 Sita Magana MD [facility] [address] [place] [address] Consulting Physician Internal Medicine 12/13/20 Regulo Pandey MD [address] [place] [address] Referring Physician Cardiovascular Disease 12/16/20 Gigi Méndez MD [address] [place] [address] Referring Physician Cardiology 02/18/21 Bc Martinez MD [address] [place] [id number] Consulting Physician Cardiology 10/22/21 08/21/23 Bc Martinez MD [address] [place] [id number] Referring Physician Cardiology 08/22/23 Martin Correa MD [address] [place] [id number] Consulting Physician Cardiothoracic Surgery 08/22/23 NiviaGildardo Si, MD [address] [facility] [place] [address] Consulting Physician Neurology 07/09/24 documented as of this encounter
--- OUTSIDE RECORDS SUMMARY | 2024-08-09 20:29 | XMS_ITS | Encounter Summary ---
Author Organization [facility] Address [address] [facility] [address] [place] [address] Care Team Providers Care Supervisor Dental Laboratory Name Role Phone Christine Kendall MD Unavailable [phone] Sita Magana MD Unavailable [phone] Nabila King MD Primary Care Provider Regulo Pandey MD Unavailable Encounter Details Date Type Department Care Team (Late st Contact Info) Description 12/29/2020 Telephone [facility] [address] [place] [address] Nabila King MD [address] [place] [address] Social History Tobacco Use Types Packs/Day Years [...] on file 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 Gender Identity Not on file Sexual [...] filedocumented in this encounter Care Teams Supervisor Dental Laboratory Relationship Specialty Start Date End Date Nabila King MD [address] [facility] [address] [place] [address] PCP - General Internal Medicine 12/16/20 Christine Kendall MD Surgeon Ophthalmology 12/13/20 Sita Magana MD [address] [facility] [address] [place] [address] Consulting Physician Internal Medicine 12/13/20 Regulo Pandey MD [address] [facility] [address] [place] [address] Referring Physician Cardiovascular Disease 12/16/20 documented as of this encounter
--- OUTSIDE RECORDS SUMMARY | 2024-08-09 20:30 | XMS_ITS | Encounter Summary ---
Author Organization [facility] Address [address] [place] [address] Phone Care Team Providers Care Procurement Engineer Name Role Phone Jason Winters MD Primary Care Provider [phone] Encounter Details Date Type Department Care Team (Late st Contact Info) Description 01/31/2019 Orders Only [facility] [address] [facility] Medical Office Building [address] [place] [address] Diana Mcmahan CMA Social History Tobacco Use Types Packs/Day Years Used Date Smoking Tobacco: Never Smokeless Tobacco: Never Alcohol Use Standard Drinks/Week Comments No 0 (1 standard drink = 0.6 oz pur e alcohol) Comments Unknown Sex and Gender Information Value Date Recorded Sex Assigned at Not on file Legal Sex Female 8:14 PM SOCIAL MEDIA INTERN Gender Identity Not on file Sexual [...] 12/16/2020 added in this encounter Care Teams Procurement Engineer Relationship Specialty Start Date End Date Jason Winters MD [address] [place] [address] PCP - General Family Medicine 07/23/18 12/15/20 documented as of this encounter
--- OUTSIDE RECORDS SUMMARY | 2024-08-09 20:30 | XMS_ITS | Encounter Summary ---
Author Organization [facility] Address [address] [place] [address] Care Team Providers Care Fire Alarm Operator Name Role Phone Unavailable Primary Care Provider Unavailabl e Encounter Details Date Type Department Care Team (Latest Contact Info) Description 02/09/2018 7:43 AM CDT Hospital Encounter [facility] OP Yasir Griggs MD [address] [facility] [address] [address] Low back pain; Radiculopathy of lumbar region; [...] on file Legal Sex Female 8:14 PM PUPIL PERSONNEL SERVICES DIRECTOR Gender Identity Not on file Sexual [...] AM T: ??02/09/2018 9:19 AM Report ID: [id number] Reading Location: ??[id number] [EOD] Narrative 02/09/2018 9:21 AM CDT EXAM [...] Jeff Romero M.D. CR: KAYLA Report ID: [id number] Reading Location: [id number] [EOD] Yasir Griggs MD IMG MRI PROCEDURES Final Res ult documented in this encounter Visit Diagnoses Diagnosis Low back pain Lumbago Radiculopathy of lumbar region Spondylolisthesis of lumbar region Other biomechanical lesions of lumbar region documented in this encounter
--- OUTSIDE RECORDS SUMMARY | 2024-08-09 20:30 | XMS_ITS | Encounter Summary ---
Author Organization [facility] Address [address] [place] [address] Phone Care Team Providers Care Fifth Grade Teacher Name Role Phone Jason Winters MD Primary Care Provider [phone] Christine Kendall MD Unavailable [phone] Sita Magana MD Unavailable [phone] Nabila King MD Primary Care Provider [phone] Regulo Pandey MD Unavailable Gigi Méndez MD Unavailable [phone] Bc Martinez MD Unavailable [phone] Bc Martinez MD Unavailable [phone] Martin Correa MD Unavailable [phone] Gildardo Gonzáles Si, MD Unavailable Encounter Details Date Type Department Care Team (Late st Contact Info) Description 01/31/2019 Orders Only [facility] [address] [place] [address] Nabila King MD [address] [place] [address] Social History Tobacco Use Types Packs/Day Years Used Date Smoking Tobacco: Never Smokeless Tobacco: Never Alcohol Use Standard Drinks/Week Comments No 0 (1 standard drink = 0.6 oz pur e alcohol) Comments Unknown Sex and Gender Information Value Date Recorded Sex Assigned at Not on file Legal Sex Female 8:14 PM SHOPFITTER Gender Identity Not on file Sexual Orientation [...] on filedocumented in this encounter Care Teams Fifth Grade Teacher Relationship Specialty Start Date End Date Jason Winters MD [address] [place] [address] PCP - General Family Medicine 07/23/18 12/15/20 Nabila King MD [facility] [address] [place] [address] PCP - General Internal Medicine 12/16/20 Christine Kendall MD [address] [place] [address] Surgeon Ophthalmology 12/13/20 Sita Magana MD [facility] [address] [place] [address] Consulting Physician Internal Medicine 12/13/20 Regulo Pandey MD [address] [place] [address] Referring Physician Cardiovascular Disease 12/16/20 Gigi Méndez MD [address] [place] [address] Referring Physician Cardiology 02/18/21 Bc Martinez MD [address] [place] [address] Consulting Physician Cardiology 10/22/21 08/21/23 Bc Martinez MD [address] [place] [address] Referring Physician Cardiology 08/22/23 Martin Correa MD [address] [place] [address] Consulting Physician Cardiothoracic Surgery 08/22/23 NiviaGildardo Si, MD [address] [facility] [place] [address] Consulting Physician Neurology 07/09/24 documented as of this encounter
--- OUTSIDE RECORDS SUMMARY | 2024-08-09 20:30 | XMS_ITS | Encounter Summary ---
Author Organization [facility] Address [address] [place] [address] Phone Care Team Providers Care Label Printer Name Role Phone Jason Winters MD Primary Care Provider [phone] Encounter Details Date Type Department Care Team (Late st Contact Info) Description 07/23/2018 10:00 AM BUILDING ASSOCIATE Office Visit [facility] Ophthalmology [address] [facility] Medical Office Building [address] [place] [address] Christine Kendall MD [address] [facility] DEPT OPHTHALMOLOGY, [address] [place] [address] Low-tension glaucoma, bilateral, severe stage (Primary Dx); Nuclear senile cataract, right Social History Tobacco Use Types Packs/Day Years Used Date Smoking Tobacco: Never Alcohol Use Standard Drinks/Week Comments No 0 (1 standard drink = 0.6 oz pur e alcohol) Comments Unknown Sex and Gender Information Value Date Recorded Sex Assigned at Not on file Legal Sex Female 8:14 PM BUILDING ASSOCIATE Gender Identity Not on file Sexual Orientation Not on file documented as of this encounter Patient Instructions * Patient Instructions* Christine Kendall MD - 07/23/2018 10:00 AM BUILDING ASSOCIATE Dilation instructions Please refer to your Dilating Eyedrops brochure for instructions regarding dilation. DING ASSOCIATE documented in this encounter Progress Notes * Christine Kendall MD - 07/23/2018 10:00 AM CST Assessment/Plan Diagnoses and all orders for this visit: Low-tension glaucoma, bilateral, severe stage (Primary) Assessment & Plan: intraocular pressure (IOP) excellent- blebs functioning well CPM- F/U 6 months- will check visual field (VF) in 1 yr Nuclear senile cataract, right Assessment & Plan: Not visually significant DING ASSOCIATE documented in this encounter Miscellaneous Notes * Assessment & Plan Note - Christine Kendall MD - 07/23/2018 11:42 AM BUILDING ASSOCIATE Associated Problem(s): Age-related nuclear cataract of right eye Not visually significant DING ASSOCIATE * Assessment & Plan Note - Christine Kendall MD - 07/23/2018 11:40 AM BUILDING ASSOCIATE Associated Problem(s): Low-tension glaucoma, bilateral, severe stage intraocular pressure (IOP) excellent- blebs functioning well CPM- F/U 6 months- will check visual field (VF) in 1 yr DING ASSOCIATE documented in this encounter Plan of Treatment [...] Normal Normal Periphery Normal Normal Care Teams Label Printer Relationship Specialty Start Date End Date Jason Winters MD [address] [place] [address] PCP - General Family Medicine 07/23/18 12/15/20 documented as of this encounter
--- OUTSIDE RECORDS SUMMARY | 2024-08-09 20:30 | XMS_ITS | Encounter Summary ---
Author Organization [facility] Address [address] [place] [address] Phone Care Team Providers Care Aircraft Log Clerk Name Role Phone Jason Winters MD Primary Care Provider [phone] Christine Kendall MD Unavailable [phone] Sita Magana MD Unavailable [phone] Nabila King MD Primary Care Provider + [phone] Regulo Pandey MD Unavailable Gigi Méndez MD Unavailable [phone] Bc Martinez MD Unavailable [phone] Bc Martinez MD Unavailable [phone] Martin Correa MD Unavailable [phone] Gildardo Gonzáles Si, MD Unavailable Encounter Details Date Type Department Care Team (Late st Contact Info) Description 08/03/2018 Orders Only [facility] [address] [place] [address] Nabila King MD [address] [place] [address] Social History Tobacco Use Types Packs/Day Years Used Date Smoking Tobacco: Never Alcohol Use Standard Drinks/Week Comments No 0 (1 standard drink = 0.6 oz pur e alcohol) Comments Unknown Sex and Gender Information Value Date Recorded Sex Assigned at Not on file Legal Sex Female 8:14 PM TIMBER MANAGEMENT ASSISTANT Gender Identity Not on file Sexual [...] on filedocumented in this encounter Care Teams Aircraft Log Clerk Relationship Specialty Start Date End Date Jason Winters MD [address] [place] [address] PCP - General Family Medicine 07/23/18 12/15/20 Nabila King MD [address] [place] [address] [address] [place] [address] PCP - General Internal Medicine 12/16/20 Christine Kendall MD [address] [place] [address] Surgeon Ophthalmology 12/13/20 Sita Magana MD [facility] [address] [place] [address] Consulting Physician Internal Medicine 12/13/20 Regulo Pandey MD [address] [place] [address] Referring Physician Cardiovascular Disease 12/16/20 Gigi éMndez MD [address] [place] [address] Referring Physician Cardiology 02/18/21 Bc Martinez MD [address] [place] [address] Consulting Physician Cardiology 10/22/21 08/21/23 Bc Martinez MD [address] [place] [address] Referring Physician Cardiology 08/22/23 Martin Correa MD [address] [place] [address] Consulting Physician Cardiothoracic Surgery 08/22/23 [facility] [address] [facility] [place] [address] Consulting Physician Neurology 07/09/24 documented as of this encounter
--- OUTSIDE RECORDS SUMMARY | 2024-08-09 20:30 | XMS_ITS | Encounter Summary ---
Author Organization [facility] Address [address] [place] [address] Phone Care Team Providers Care Wet Press Tender Name Role Phone Jason Winters MD Primary Care Provider [phone] Reason for Referral * (Routine) - Closed Specialty Diagnoses / Procedures Referred By Contac t Referred To Contact Diagnoses Low-tension glaucoma, bilateral, severe stage Procedures Dyer Visual Field - OU - Both Eyes Christine Kendall MD Phone: tel: fax: [facility] (All Locations) Referral ID Status Reason Start Date Expiration Date Visits Re quested Visits Authorized [id number] Closed 01/21/2019 08/01/2020 1 1 Encounter Details Date Type Department Care Team (Late st Contact Info) Description 01/21/2019 10:00 AM CDT Office Visit [facility] Ophthalmology 10 [facility] Medical Office Building [address] [place] [address] Christine Kendall MD [address] DEPT OPHTHALMOLOGY, [facility] [address] [place] [address] Low-tension glaucoma, bilateral, severe stage [...] on file Legal Sex Female 8:14 PM GEAR GRINDER Gender Identity Not on file Sexual Orientation [...] months with Dyer visual field (HVF) 24-2 * Addendum Note [...] eye C/D Ratio 1.0 0.95 Care Teams Wet Press Tender Relationship Specialty Start Date End Date Jason Winters MD [address] [place] [address] PCP - General Family Medicine 07/23/18 12/15/20 documented as of this encounter
--- OUTSIDE RECORDS SUMMARY | 2024-08-09 20:30 | XMS_ITS | Encounter Summary ---
Author Organization [facility] Address [address] [place] [address] Phone Care Team Providers Care Tea Tree Farmer Name Role Phone Jason Winters MD Primary Care Provider [phone] Reason for Visit * Reason Comments Osteoporosis * Endocrinology (Routine) - Closed Specialty Diagnoses / Procedures Referred By Contac t Referred To Contact Internal Medicine / Bone Health Diagnoses 1 YR F/U Procedures RETURN Referral, Self Sita Magana MD [address] [place] [address] [address] [place] [address] Phone: tel: fax: Referral ID Status Reason Start Date Expiration Date Visits Re quested Visits Authorized [id number] Closed 01/31/2019 08/11/2020 99 99 Encounter Details Date Type Department Care Team (Late st Contact Info) Description 01/31/2019 11:20 AM CDT Office Visit [facility] 10 [facility] Medical Office Building 2 [address] [place] [phone] Sita Magana MD [address] [place] [address] [address] [place] [address] Osteopenia of multiple sites (Primary Dx) Social History Tobacco Use Types Packs/Day Years Used Date Smoking Tobacco: Never Smokeless Tobacco: Never Alcohol Use Standard Drinks/Week Comments No 0 (1 standard drink = 0.6 oz pur e alcohol) Comments Unknown Sex and Gender Information Value Date Recorded Sex Assigned at Not on file Legal Sex Female 8:14 PM COAL TRAMMER Gender Identity Not on file Sexual Orientation [...] Program Discharge and Information Sheet Contact: Call: [phone] or [phone] FAX: [phone] Name: Lisa Conn Ht 162.6 cm (5' 4 ) Wt 54.4 kg (120 lb) BMI 20.60 kg/m?? Thank you for choosing the [facility] for consultation about [...] to give our office a call at [phone] option #1. You can also view your results in the [employer] Portal (see below). Treatment: you have been recommended the following: - Calcium 6718-6509 mg daily, including diet and supplements - [...] from us after 3 weeks, please call [phone] option #1. Feel free to visit our web site for further information on medications, diet, exercise and other things you can do to take charge of your bone health ([email or web address]). Follow-up Visit: Please, schedule your next appointment at the Bone Health Program in 1 year at thefront desk, or call [phone]. Every attempt will be made to schedule the follow-up appointment as close to the recommended date as possible. Bone Density Testing: You are being followed at the [facility] for your bone [...] bone density is being monitored by the [facility]. If your other providers have questions or would like a report of your bone density scans, they can contact us at [phone] or Medical Records at [phone]. Important! Always remember to stop taking your calcium supplements 24 hours before you are scheduled to have your bone density test at your next visit. [employer] patient portal allows you to view your medical records, test results, personal information,request prescription renewals, review past appointments, request new ones and securely communicate online with our office. Ask at the law office receptionist desk about receiving an invite to join [employer] portal. For questions about accessing [employer] patient portal call [phone]. If you need to make changes to your follow-up appointment, or are [facility], please contact us as soon as possible at [phone] ([facility] office) or [phone] ([facility] and [facility] offices). We work on a very tight [...] Magana MD - 01/31/2019 11:20 AM CDT [facility] 10 [facility], [facility] [[email or web address]] [address], [place] [address] ? PATIENT NAME: Lisa Conn : 1935 ASSESSMENT/PLAN Diagnoses and all orders for this visit: Osteopenia of multiple sites (Primary) Assessment & Plan: Ms. CONN is currently being treated for [...] patient to the [facility] at [facility]. If you have any questions or concerns please do not hesitate to contact me. REASON FOR VISIT Problem Osteopenia Ms. CONN is being treated for osteopenia. She still obtains calcium through dietary sources [id number] mg per day and she takes vitamin [...] daily added in this encounter Care Teams Tea Tree Farmer Relationship Specialty Start Date End Date Jason Winters MD [address] [place] [address] PCP - General Family Medicine 07/23/18 12/15/20 documented as of this encounter
--- OUTSIDE RECORDS SUMMARY | 2024-08-09 20:30 | XMS_ITS | Encounter Summary ---
Author Organization [facility] Address [address] [place] [address] Phone Care Team Providers Care Lift Driver Name Role Phone Jason Winters MD Primary Care Provider [phone] Reason for Referral * Diagnostic Imaging (Routine) - Closed Specialty Diagnoses / Procedures Referred By Contac t Referred To Contact Diagnoses Osteoporosis, unspecified osteoporosis type, unspecified pathological fracture presence Procedures Dexa Axial Skeleton Bone Density 1 or 2 Site Sita Magana MD Phone: tel: fax: [facility] (All Locations) Referral ID Status Reason Start Date Expiration Date Visits Re quested Visits Authorized [id number] Closed 01/23/2019 08/03/2020 99 99 Reason for Visit * Reason Comments Osteopenia * Diagnostic Imaging (Routine) - Closed Specialty Diagnoses / Procedures Referred By Contac t Referred To Contact Diagnoses Osteoporosis, unspecified osteoporosis type, unspecified pathological fracture presence Procedures Dexa Axial Skeleton Bone Density 1 or 2 Site Sita Magana MD Phone: tel: fax: [facility] (All Locations) Referral ID Status Reason Start Date Expiration Date Visits Re quested Visits Authorized [id number] Closed 01/23/2019 08/03/2020 99 99 Encounter Details Date Type Department Care Team (Latest Contact Info) Description 01/31/2019 10:50 AM CDT Clinical Support [facility] [address] [place] [address] Osteoporosis, unspecified osteoporosis type, unspecified [...] on file Legal Sex Female 8:14 PM TAR MAN Gender Identity Not on file Sexual [...] Bone mineral density was performed on a [employer] Discovery Densitometer. ?? Machine Cross-calibration and Precision [...] by the International Society of Clinical Densitometry. [id number] Sita Magana MD IMG DXA PROCEDURES Final Re sult documented in this encounter Visit Diagnoses Diagnosis Osteoporosis, unspecified osteoporosis type, unspecified pathological fracture presence- Primary Osteopenia of multiple sites documented in this encounter Care Teams Lift Driver Relationship Specialty Start Date End Date Jason Winters MD [address] [place] [address] PCP - General Family Medicine 07/23/18 12/15/20 documented as of this encounter
--- OUTSIDE RECORDS SUMMARY | 2024-08-09 20:30 | XMS_ITS | Encounter Summary ---
Author Organization [facility] Address [address] [place] [address] Phone Care Team Providers Care Tire Specialist Name Role Phone Jason Winters MD Primary Care Provider [phone] Christine Kendall MD Unavailable [phone] Sita Magana MD Unavailable [phone] Nabila King MD Primary Care Provider + [phone] Regulo Pandey MD Unavailable Gigi Méndez MD Unavailable [phone] Bc Martinez MD Unavailable [phone] Bc Martinez MD Unavailable [phone] Martin Correa MD Unavailable [phone] Gildardo Gonzáles Si, MD Unavailable Encounter Details Date Type Department Care Team (Late st Contact Info) Description 02/09/2018 Orders Only [facility] [address] [place] [address] Nabila King MD [address] [place] [address] Social History Tobacco Use Types Packs/Day Years Used Date Smoking Tobacco: Never Alcohol Use Standard Drinks/Week Comments No 0 (1 standard drink = 0.6 oz pur e alcohol) Comments Unknown Sex and Gender Information Value Date Recorded Sex Assigned at Not on file Legal Sex Female 8:14 PM IDENTIFICATION CLERK Gender Identity Not on file Sexual [...] on filedocumented in this encounter Care Teams Tire Specialist Relationship Specialty Start Date End Date Jason Winters MD [address] [place] [address] PCP - General Family Medicine 07/23/18 12/15/20 Nabil[facility] [address] [place] [address] PCP - General Internal Medicine 12/16/20 Christine Kendall MD [address] [place] [address] Surgeon Ophthalmology 12/13/20 Sita Magana MD [facility] [address] [place] [address] Consulting Physician Internal Medicine 12/13/20 Regulo Pandey MD [address] [place] [address] Referring Physician Cardiovascular Disease 12/16/20 Gigi Méndez MD [address] [place] [address] Referring Physician Cardiology 02/18/21 Bc Martinez MD [address] [place] [address] Consulting Physician Cardiology 10/22/21 08/21/23 Bc Martinez MD [address] [place] [address] Referring Physician Cardiology 08/22/23 Martin Correa MD [address] [place] [address] Consulting Physician Cardiothoracic Surgery 08/22/23 [facility] [address] [facility] [place] [address] Consulting Physician Neurology 07/09/24 documented as of this encounter
--- OUTSIDE RECORDS SUMMARY | 2024-08-09 20:31 | XMS_ITS | Encounter Summary ---
Author Organization [facility] Healthcare Address [address] [place] [address] Care Team Providers Care Receiving Room Clerk Name Role Phone Unavailable Primary Care Provider Unavailabl e Encounter Details Date Type Department Care Team (Late st Contact Info) Description 02/07/2018 9:18 AM CDT Hospital Encounter [facility] OP Yasir Griggs MD [address] [facility] [address] [address] Pain in left hip Social History Tobacco Use Types Packs/Day Years Used Date Smoking Tobacco: Never Alcohol Use Standard Drinks/Week Comments No 0 (1 standard drink = 0.6 oz pur e alcohol) Comments Unknown Sex and Gender Information Value Date Recorded Sex Assigned at Not on file Legal Sex Female 8:14 PM AIR CONDITIONING COIL ASSEMBLER Gender Identity Not on file Sexual [...]
--- OUTSIDE RECORDS SUMMARY | 2024-08-09 20:31 | XMS_ITS | Encounter Summary ---
Author Organization [facility] Healthcare Address [address] [place] [address] Care Team Providers Care Ceramic Tile Mechanic Name Role Phone Unavailable Primary Care Provider [...] on file Legal Sex Female 8:14 PM INJECTION SPECIALIST Gender Identity Not on file Sexual Orientation Not on file documented as of this encounter Plan of Treatment Not on file documented as of this encounter Visit Diagnoses Diagnosis Low-tension glaucoma of right eye, severe stage- Primary documented in this encounter
--- OUTSIDE RECORDS SUMMARY | 2024-08-09 20:31 | XMS_ITS | Encounter Summary ---
Author Organization [facility] Address [address] [place] [address] Phone Care Team Providers Care Centrifugal Casting Machine Tender Name Role Phone Jason Winters MD Primary Care Provider [phone] Encounter Details Date Type Department Care Team (Late st Contact Info) Description 01/09/2018 Orders Only [facility] Ophthalmology 10 [facility] Medical Office Building [address] [place] [address] Marlys Garcia Social History Tobacco Use Types Packs/Day Years Used Date Smoking Tobacco: Never Alcohol Use Standard Drinks/Week Comments No 0 (1 standard drink = 0.6 oz pur e alcohol) Comments Unknown Sex and Gender Information Value Date Recorded Sex Assigned at Not on file Legal Sex Female 8:14 PM EDUCATIONAL PROGRAM DIRECTOR Gender Identity Not on file Sexual Orientation Not on file documented as of this encounter Plan of Treatment Not on file documented as of this encounter Visit Diagnoses Not on filedocumented in this encounter Historical Medications * This list may reflect changes made after this encounter. cholecalciferol (VITAMIN D-3) 2,000 unit tablet 3,000 Units 2020 added in this encounter Care Teams Centrifugal Casting Machine Tender Relationship Specialty Start Date End Date Jason Winters MD [address] [place] [address] PCP - General 11/18/16 01/17/18 documented as of this encounter
--- OUTSIDE RECORDS SUMMARY | 2024-08-09 20:31 | XMS_ITS | Encounter Summary ---
Author Organization [facility] Address [address] [place] [address] Phone Care Team Providers Care Box Covering Machine Operator Name Role Phone Unavailable Primary Care Provider Unavailabl e Reason for Visit * Reason Comments Routine Glaucoma Follow Up Encounter Details Date Type Department Care Team (Late st Contact Info) Description 01/22/2018 10:45 AM CDT Office Visit [facility] Ophthalmology 10 [facility] Medical Office Building [address] [place] [address] Christine Kendall MD [address] DEPT OPHTHALMOLOGY, [facility] [address] [place] [address] Low-tension glaucoma, bilateral, severe stage (Primary Dx); [...] file Legal Sex Female 8:14 PM FASHION BUYING INTERNSHIP Gender Identity Not on file Sexual Orientation [...]
--- OUTSIDE RECORDS SUMMARY | 2024-08-09 20:31 | XMS_ITS | Encounter Summary ---
Author Organization 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, severe stage Procedures Dyer Visual Field - OU - Both Eyes Christine Kendall MD Phone: tel: fax: [facility] Ophthalmology [address] [place] [address] Phone: tel: Referral ID Status Reason Start Date Expiration Date Visits Re quested Visits Authorized [id number] Closed 01/18/2018 08/07/2019 1 1 Encounter Details Date Type Department Care Team (Late st Contact Info) Description 01/22/2018 10:00 AM CDT Imaging Exam [facility] Ophthalmology 10 [facility] Medical Office Building [address] [place] [address] Low-tension glaucoma of right eye, severe stage; Low-tension glaucoma of left eye, severe stage Social History Tobacco Use Types Packs/Day Years Used Date Smoking Tobacco: Never Alcohol Use Standard Drinks/Week Comments No 0 (1 standard drink = 0.6 oz pur e alcohol) Comments Unknown Sex and Gender Information Value Date Recorded Sex Assigned at Not on file Legal Sex Female 8:14 PM 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
--- OUTSIDE RECORDS SUMMARY | 2024-08-09 20:31 | XMS_ITS | Encounter Summary ---
Author Organization [facility] Address [address] [place] [address] Phone Care Team Providers Care Wheel Alignment Mechanic Name Role Phone Jason Winters MD Primary Care Provider [phone] Jason Winters MD Primary Care Provider [phone] Jason Winters MD Primary Care Provider [phone] Christine Kendall MD Unavailable [phone] Sita Magana MD Unavailable [phone] Nabila King MD Primary Care Provider + [phone] Regulo Pandey MD Unavailable Gigi Méndez MD Unavailable [phone] Bc Martinez MD Unavailable [phone] Bc Martinez MD Unavailable [phone] Martin Correa MD Unavailable [phone] Gildardo Gonzáles Si, MD Unavailable Encounter Details Date Type Department Care Team (Late st Contact Info) Description 2016 Orders Only [facility] [address] [place] [address] Nabila King MD [address] [address] Social History Tobacco Use Types Packs/Day Years Used Date Smoking Tobacco: Never Assessed Alcohol Use Standard Drinks/Week Comments No 0 (1 standard drink = 0.6 oz pur e alcohol) Comments Unknown Sex and Gender Information Value Date Recorded Sex Assigned at Not on file Legal Sex Female 8:14 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 Gender Identity Not on file Sexual [...] filedocumented in this encounter Care Teams Wheel Alignment Mechanic Relationship Specialty Start Date End Date Jason Winters MD [address] [place] [address] PCP - General 11/18/16 01/17/18 Jason Winters MD [address] [place] [address] PCP - General 08/05/13 11/17/16 Jason Winters MD [address] [place] [address] PCP - General Family Medicine 07/23/18 12/15/20 Nabila King MD [address] [place] [address] [address] PCP - General Internal Medicine 12/16/20 Christine Kendall MD [address] [place] [address] Surgeon Ophthalmology 12/13/20 Sita Magana MD [address] [facility] [address] [place] [address] Consulting Physician Internal Medicine 12/13/20 Regulo Pandey MD [address] [facility] [address] [place] [address] Referring Physician Cardiovascular Disease 12/16/20 Gigi Méndez MD [address] [facility] [address] [place] [address] Referring Physician Cardiology 02/18/21 Bc Martinez MD [address] [place] [address] Consulting Physician Cardiology 10/22/21 08/21/23 Bc Martinez MD [address] [place] [address] Referring Physician Cardiology 08/22/23 Martin Correa MD [address] [place] [address] Consulting Physician Cardiothoracic Surgery 08/22/23 Gildardo Gonzáles Si, MD [address] [place] [address] [address] [place] [address] Consulting Physician Neurology 07/09/24 documented as of this encounter
--- OUTSIDE RECORDS SUMMARY | 2024-08-09 20:31 | XMS_ITS | Encounter Summary ---
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
--- OUTSIDE RECORDS SUMMARY | 2024-08-09 20:31 | XMS_ITS | Encounter Summary ---
Author Organization [facility] Address [address] [place] [address] Phone Care Team Providers Care Environmental Health And Safety Manager Name Role Phone Jason Winters MD Primary Care Provider [phone] Jason Winters MD Primary Care Provider [phone] Jason Winters MD Primary Care Provider [phone] Jason Winters MD Primary Care Provider [phone] Jason Winters MD Primary Care Provider [phone] Christine Kendall MD Unavailable [phone] Sita Magana MD Unavailable [phone] Nabila King MD Primary Care Provider + [phone] Regulo Pandey MD Unavailable Gigi Méndez MD Unavailable [phone] Bc Martinez MD Unavailable [phone] Bc Martinez MD Unavailable [phone] Martin Correa MD Unavailable [phone] Gildardo Gonzáles Si, MD Unavailable Encounter Details Date Type Department Care Team (Late st Contact Info) Description 05/15/2012 Orders Only [facility] [address] [place] [address] Scanning, Provider Social History Tobacco Use Types Packs/Day Years Used Date Smoking Tobacco: Never Assessed Comments Unknown Sex and Gender Information Value Date Recorded Sex Assigned at Not on file 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 Gender Identity Not on file Sexual [...] on filedocumented in this encounter Care Teams Environmental Health And Safety Manager Relationship Specialty Start Date End Date Jason Winters MD [address] [place] [address] PCP - General 11/18/16 01/17/18 Jason Winters MD [address] [place] [address] PCP - General 08/05/13 11/17/16 Jason Winters MD [address] [place] [address] PCP - General 05/13/13 08/04/13 Jason Winters MD [address] [place] [address] PCP - General 06/15/12 05/12/13 Jason Winters MD [address] [place] [address] PCP - General Family Medicine 07/23/18 12/15/20 Nabila King MD [address] [facility] [address] [place] [address] PCP - General Internal Medicine 12/16/20 Christine Kendall MD [address] [place] [address] Surgeon Ophthalmology 12/13/20 Sita Magana MD [address] [facility] [address] [place] [address] Consulting Physician Internal Medicine 12/13/20 Regulo Pandey MD [address] [place] [address] [address] [place] [address] Referring Physician Cardiovascular Disease 12/16/20 Gigi Méndez MD [address] [place] [address] [address] [place] [address] Referring Physician Cardiology 02/18/21 Bc Martinez MD [address] [place] [address] Consulting Physician Cardiology 10/22/21 08/21/23 Bc Martinez MD [address] [place] [address] Referring Physician Cardiology 08/22/23 Martin Correa MD [address] [place] [address] Consulting Physician Cardiothoracic Surgery 08/22/23 Gildardo Gonzá[place] [address] [place] [address] [address] [place] [address] Consulting Physician Neurology 07/09/24 documented as of this encounter
--- OUTSIDE RECORDS SUMMARY | 2024-08-09 20:31 | XMS_ITS | Encounter Summary ---
Author Organization [facility] Facility Care Team Providers Care Biophysics Professor Name Role Phone Unavailable Primary Care Provider Unavailabl e Encounter Details Date Type Department Care Team (Latest Contact Info) Description 04/08/2010 9:14 AM CDT - 04/08/2010 2:18 PM CDT Hospital Encounter [facility] Christine Paris MD [address] [facility] [address] Other cataract; Other specified glaucoma; Inflammation or infection of postprocedural bleb of eye; Other and unspecified hyperlipidemia; Esophageal reflux; Hypothyroidism; Irritable colon; Dizziness and giddiness; Migraine; Other malaise and fatigue Social History Tobacco Use Types Packs/Day Years Used Date Smoking Tobacco: Never Assessed Comments Unknown Sex and Gender Information Value Date Recorded Sex Assigned at Not on file 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
--- OUTSIDE RECORDS SUMMARY | 2024-08-09 20:31 | XMS_ITS | Encounter Summary ---
Author Organization 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, severe stage Procedures Dyer Visual Field - OU - Both Eyes Christine Kendall MD Phone: tel: fax: [facility] [address] [place] [address] Phone: tel: Referral ID Status Reason Start Date Expiration Date Visits Re quested Visits Authorized [id number] Closed 01/18/2018 08/07/2019 1 1 Encounter Details Date Type Department Care Team (Late st Contact Info) Description 01/18/2018 Orders Only [facility] [address] [facility] [address] [place] [address] Noelle Squires Low-tension glaucoma of right eye, [...] file Legal Sex Female 8:14 PM 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
--- OUTSIDE RECORDS SUMMARY | 2024-08-09 20:31 | XMS_ITS | Encounter Summary ---
Author Organization [facility] Care Team Providers Care Asbestos Worker Name Role Phone Unavailable Primary Care Provider Unavailabl e Encounter Details Date Type Department Care Team (Latest Contact Info) Description 05/05/2011 10:24 AM CDT - 05/05/2011 2:30 PM CDT Hospital Encounter [facility] Christine Paris MD [address] [facility], [place] [address] Glaucoma; Osteoporosis; Esophageal reflux; Irritable colon; Other specified cardiac dysrhythmias Social History Tobacco Use Types Packs/Day Years Used Date Smoking Tobacco: Never Assessed Comments Unknown Sex and Gender Information Value Date Recorded Sex Assigned at Not on file Legal Sex Female 8: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
--- OUTSIDE RECORDS SUMMARY | 2024-08-09 20:50 | XMS_ITS | Continuity of Care Document ---
Author Organization [facility] Address [address] [place] [address] Phone Care Team Providers Care Sap Business Objects Consultant Name Role Phone Calvin [place], Logan Unavailable Unavailable Advance Directives Directive Yes / No Effective Date File Name No Information Encounters Encounter Description Practice Location Reason(s) For Visit Diagnoses Date Provider Providers Copied on Encounter [facility], [address], [place], [place], [id number], tel:[phone] SEC Niko Andrade No Information Calvin Ford. [address] [place], [address], [place]. tel: [phone] Family History Family Member Type Diagnosis Age At Onset No Information Payers Payer name Insurance type Covered democrat ID Authoriza tion(s) Medicare RR MB [id number] Social History Type Description Quantity Date Captured [...]
== END 2024-08-04 21:25 | disposition home or self-care (01) ==
PROVIDERS: Emergency Provider Registered Nurse; PCP Internal Medicine Geriatric Medicine
DX: G44.209 Tension-type headache, unspecified, not intractable (principal); J32.9 Chronic sinusitis, unspecified; Z20.822 Contact with and (suspected) exposure to COVID-19; I25.10 Atherosclerotic heart disease of native coronary artery without angina pectoris; Z95.0 Presence of cardiac pacemaker; Z79.01 Long term (current) use of anticoagulants; Z79.899 Other long term (current) drug therapy
CPT/HCPCS: 36415; 70450; 80053; 84484; 85025; 85610; 85730; 87637; 99284

== ENCOUNTER 2024-09-06 12:43 | Outpatient (CLI) | payer MEDICARE, SELFPAY | END 2024-09-06 12:44 | disposition home or self-care (01) | LOC: ANHAUDASC 12:45 | PROVIDERS: PCP Otolaryngology; Visit Provider Otolaryngology | DX: H81.09 Meniere's disease, unspecified ear (principal); H90.3 Sensorineural hearing loss, bilateral | CPT/HCPCS: 92557; 92567 ==

== ENCOUNTER 2025-01-12 21:41 | Emergency (ER) | payer MEDICARE, SELFPAY ==
--- NOTE | ~2025-01-12 | CT_ITS ---
History: Numbness PROCEDURE: CT head without contrast. COMPARISON: 08/04/2024 TECHNIQUE: Axial imaging of the head performed from the skull base to the vertex without IV contrast. Sagittal a nd coronal reformations obtained. DLP: 605 mGy-cm FINDINGS: The ventricles are enlarged. The dilatation of the ventricles is proportional to the degree of sulcal prominence, not uncommon in the senescent brain. Decreased attenuation is identified within the periventricular white matter, likely secondary to micr ovascular ischemic disease, in a patient of this age. There is no mass, mass effect or midline shift. There is no abnormal extra-axial fluid collection or intracranial hemorrhage. Visualized paranasal sinuses are clear. The mastoid air cells are well aerated. No acute displaced fractures within the overlying cranium. Impression: No acute intracranial hemorrhage or suspicious mass effect. Reviewed, dictated and finalized at location A. Impression: No acute intracranial hemorrhage or suspicious mass effect.
--- NOTE | ~2025-01-12 | XR_ITS ---
CHEST RADIOGRAPH CLINICAL HISTORY: numbness . COMPARISON: None available TECHNIQUE: Single portable view of the chest. FINDINGS The left mid lung is partially obscured due to pacemaker generator. Wires project over the right atrium and right ventricle. The remainder of the cardiomediastinal silhouette is otherwise unremarkable. The lungs are clear. IMPRESSION: No focal infiltrate or effusion. Reviewed, dictated and finalized at location A.
--- NOTE | ~2025-01-12 | CT_ITS ---
CTA brain carotid Ordering provider: Chiqui Rincon MD History: . worsening neuro symptoms over weeks . Comparison: None. Reference is made to a carotid duplex performed 06/17/2019 which demonstrated a les s than 50% stenosis within the carotid arteries bilaterally Technique: CT angiogram head and neck was performed following timed intravenous injection of contrast . Thin slice axial images and reformatted coronal images were obtained. Three dimensional reformatted images of the brain were also obtained using a [employer] workstation. DLP: 839 mGy-cm FINDINGS: HEAD: --ANTERIOR AND MIDDLE CEREBRAL ARTERIES AND BRANCHES: Normal caliber and contour. --INTRACRANIAL INTERNAL CAROTID ARTERIES: Moderate atheromatous disease bilaterally resulting in mild stenosis but no occlusion. --BASILAR ARTERY AND BRANCHES: Mild atheromatous disease but no stenosis or occlusion. --POSTERIOR CEREBRAL ARTERIES: Normal caliber and contour --POSTERIOR COMMUNICATING ARTERIES: Not well visualized likely related to congenital absence or small size. --ANEURYSM: None visualized. --BRAIN: Please refer to report of CT head performed the same day. --BONES AND SUPERFICIAL SOFT TISSUES: Please refer to report of CT head performed the same day. --PARANASAL SINUSES AND MASTOIDS: Please refer to report of CT head done the same day. NECK: --RIGHT CERVICAL CAROTID SYSTEM: Normal caliber and contour. Percent stenosis per NASCET criteria is 0% No carotid dissection. --LEFT CERVICAL CAROTID SYSTEM: Normal caliber and contour. Percent stenosis per NASCET criteria is 0% No carotid dissection. --VERTEBRAL ARTERIES: Mild atheromatous disease without stenosis or occlusion. --VISUALIZED AORTIC ARCH AND BRANCHING VESSELS: Mild atheromatous disease but no significant stenosis . --SOFT TISSUES: Unremarkable --CERVICAL SPINE: Age appropriate degenerative changes. IMPRESSION: 1. Mild atheromatous disease without significant stenosis or occlusion. Percent stenosis per NASCET criteria is 0% within the bilateral carotid arteries. Reviewed, dictated and finalized at location A. IMPRESSION: 1. Mild atheromatous disease without significant stenosis or occlusion. Percen t stenosis per NASCET criteria is 0% within the bilateral carotid arteries.
--- OUTSIDE RECORDS SUMMARY | 2025-01-12 21:43 | XMS_ITS | Encounter Summary ---
Author Organization [facility] Address [address] [place] [address] Phone Care Team Providers Care Cognos Administrator Name Role Phone Jason Winters MD Primary Care Provider [phone] Jason Winters MD Primary Care Provider [phone] Jason Winters MD Primary Care Provider [phone] Jason Winters MD Primary Care Provider [phone] Jason Winters MD Primary Care Provider [phone] Christine Kendall MD Unavailable [phone] Sita Magana MD Unavailable [phone] Nabila King MD Primary Care Provider + [phone] Regulo Pandey MD Unavailable Gigi Méndez MD Unavailable [phone] Bc Martinez MD Unavailable [phone] Bc Martinez MD Unavailable [phone] Martin Correa MD Unavailable [phone] Gildardo Gonzáles Si, MD Unavailable Encounter Details Date Type Department Care Team (Late st Contact Info) Description 05/15/2012 Orders Only [facility] [address] [place] [address] Scanning, Provider Social History Tobacco Use Types Packs/Day Years Used Date Smoking Tobacco: Never Assessed Comments Unknown Sex and Gender Information Value Date Recorded Sex Assigned at Not on file Legal Sex Female 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 Gender Identity Not on file Sexual [...] on filedocumented in this encounter Care Teams Cognos Administrator Relationship Specialty Start Date End Date Jason Winters MD [address] [place] [address] PCP - General 11/18/16 01/17/18 Jason Winters MD [address] [place] [address] PCP - General 08/05/13 11/17/16 Jason Winters MD [address] [place] [address] PCP - General 05/13/13 08/04/13 Jason Winters MD [address] [place] [address] PCP - General 06/15/12 05/12/13 Jason Winters MD [address] [place] [address] PCP - General Family Medicine 07/23/18 12/15/20 Nabila King MD [address] [facility] [address] [place] [address] PCP - General Internal Medicine 12/16/20 Christine Kendall MD [address] [place] [address] Surgeon Ophthalmology 12/13/20 Sita Magana MD [address] [place] [address] [address] [place] [address] Consulting Physician Internal Medicine 12/13/20 Regulo Pandey MD [address] [place] [address] [address] [place] [address] Referring Physician Cardiovascular Disease 12/16/20 Gigi Méndez MD [address] [place] [address] [address] [place] [address] Referring Physician Cardiology 02/18/21 Bc Martinez MD [address] [place] [address] Consulting Physician Cardiology 10/22/21 08/21/23 Bc Martinez MD [address] [place] [address] Referring Physician Cardiology 08/22/23 Martin Correa MD [address] [place] [address] Consulting Physician Cardiothoracic Surgery 08/22/23 Gildardo Gonzá[place] [address] [place] [address] [address] [place] [address] Consulting Physician Neurology 07/09/24 documented as of this encounter
--- OUTSIDE RECORDS SUMMARY | 2025-01-12 21:43 | XMS_ITS | Encounter Summary ---
Author Organization [facility] Address [address] [place] [address] Care Team Providers Care Clerical Secretary Name Role Phone Christine Kendall MD Unavailable [phone] Sita Magana MD Unavailable [phone] Nabila King MD Primary Care Provider [phone] Regulo Pandey MD Unavailable Gigi Méndez MD Unavailable [phone] Bc Martinez MD Unavailable [phone] Martin Correa MD Unavailable [phone] NiviaGildardo bowen Si, MD Unavailable Encounter Details Date Type Department Care Team (Late st Contact Info) Description 02/09/2024 Orders Only [facility] [address] [place] [address] Scanning, Provider Social History Tobacco Use [...] on file Legal Sex Female 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 Gender Identity Not on file Sexual [...] encounter Results * SCAN - LABS (02/09/2024) Provider Scanning Final Result documented in this encounter Visit Diagnoses Not on filedocumented in this encounter Care Teams Clerical Secretary Relationship Specialty Start Date End Date Nabila King MD [address] [facility] [place] [address] PCP - General Internal Medicine 12/16/20 Christine Kendall MD Surgeon Ophthalmology 12/13/20 Sita Magana MD [address] [place] [address] Consulting Physician Internal Medicine 12/13/20 Regulo Pandey MD [address] [place] [address] [address] [place] [address] Referring Physician Cardiovascular Disease 12/16/20 Gigi Méndez MD [address] [place] [address] Referring Physician Cardiology 02/18/21 Bc Martinez MD [address] [place] [address] Referring Physician Cardiology 08/22/23 Martin Correa MD [address] [place] [address] Consulting Physician Cardiothoracic Surgery 08/22/23 [facility], Gildardo Gomez MD [address] [facility] [address] [place] [address] Consulting Physician Neurology 07/09/24 documented as of this encounter
--- OUTSIDE RECORDS SUMMARY | 2025-01-12 21:43 | XMS_ITS | Encounter Summary ---
Author Organization [facility] Address [address] [place] [address] Phone Care Team Providers Care Gospel Singer Name Role Phone Jason Winters MD Primary Care Provider [phone] Jason Winters MD Primary Care Provider [phone] Jason Winters MD Primary Care Provider [phone] Christine Kendall MD Unavailable [phone] Sita Magana MD Unavailable [phone] Nabila King MD Primary Care Provider + [phone] Regulo Pandey MD Unavailable Gigi Méndez MD Unavailable [phone] Bc Martinez MD Unavailable [phone] Bc Martinez MD Unavailable [phone] Martin Correa MD Unavailable [phone] Gildardo Gonzáles Si, MD Unavailable Encounter Details Date Type Department Care Team (Late st Contact Info) Description 2016 Orders Only [facility] [address] 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 Gender Identity Not on file Sexual [...] on filedocumented in this encounter Care Teams Gospel Singer Relationship Specialty Start Date End Date Jason Winters MD [address] [place] [address] PCP - General 11/18/16 01/17/18 Jason Winters MD [address] [place] [address] PCP - General 08/05/13 11/17/16 Jason Winters MD [address] [place] [address] PCP - General Family Medicine 07/23/18 12/15/20 Nabila King MD [address] [place] [address] [address] PCP - General Internal Medicine 12/16/20 Christine Kendall MD [address] [place] [address] Surgeon Ophthalmology 12/13/20 Sita Magana MD [address] [facility] [place] [address] Consulting Physician Internal Medicine 12/13/20 Regulo Pandey MD [address] [facility] [place] [address] Referring Physician Cardiovascular Disease 12/16/20 Gigi Méndez MD [address] [facility] [place] [address] Referring Physician Cardiology 02/18/21 Bc Martinez MD [address] [place] [address] Consulting Physician Cardiology 10/22/21 08/21/23 Bc Martinez MD [address] [place] [address] Referring Physician Cardiology 08/22/23 Martin Correa MD [address] [place] [address] Consulting Physician Cardiothoracic Surgery 08/22/23 [facility] [address] [facility] [address] [place] [address] Consulting Physician Neurology 07/09/24 documented as of this encounter
--- OUTSIDE RECORDS SUMMARY | 2025-01-12 21:44 | XMS_ITS | Encounter Summary ---
Author Organization [facility] Address [address] [place] [address] Phone Care Team Providers Care Floor Cleaner Name Role Phone Jason Winters MD Primary Care Provider [phone] Christine Kendall MD Unavailable [phone] Sita Magana MD Unavailable [phone] Nabila King MD Primary Care Provider + [phone] Regulo Pnadey MD Unavailable Gigi Méndez MD Unavailable [phone] Bc Martinez MD Unavailable [phone] Bc Martinez MD Unavailable [phone] Martin Correa MD Unavailable [phone] Gildardo Gonzáles Si, MD Unavailable Encounter Details Date Type Department Care Team (Late st Contact Info) Description 05/07/2020 Orders Only [facility] [address] [place] [address] Nabila King MD [address] [place] [address] Social History Tobacco Use Types Packs/Day Years Used Date Smoking Tobacco: Never Smokeless Tobacco: Never Alcohol Use Standard Drinks/Week Comments No 0 (1 standard drink = 0.6 oz pur e alcohol) Comments Unknown Sex and Gender Information Value Date Recorded Sex Assigned at Not on file 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 Gender Identity Not on file Sexual Orientation Not on file documented as of this encounter Plan of Treatment Not on file documented as of this encounter Procedures Procedure Name Priority Date/Time Associated Diagnosis Comments SCAN - LABS 05/07/2020 documented in this encounter Results * SCAN - LABS (05/07/2020) us Nabila King MD Final Resu lt documented in this encounter Visit Diagnoses Not on filedocumented in this encounter Care Teams Floor Cleaner Relationship Specialty Start Date End Date Jason Winters MD [address] [place] [address] PCP - General Family Medicine 07/23/18 12/15/20 Nabila King MD [facility] [place] [address] PCP - General Internal Medicine 12/16/20 Christine Kendall MD [address] [place] [address] Surgeon Ophthalmology 12/13/20 Sita Magana MD [address] [place] [address] Consulting Physician Internal Medicine 12/13/20 Regulo Pandey MD [address] [place] [address] Referring Physician Cardiovascular Disease 12/16/20 Gigi Méndez MD [address] [place] [address] Referring Physician Cardiology 02/18/21 Bc Martinez MD [address] [place] [address] Consulting Physician Cardiology 10/22/21 08/21/23 Bc Martinez MD [address] [place] [address] Referring Physician Cardiology 08/22/23 Martin Correa MD [address] [place] [address] Consulting Physician Cardiothoracic Surgery 08/22/23 [facility] [address] [place] [address] Consulting Physician Neurology 07/09/24 documented as of this encounter
--- OUTSIDE RECORDS SUMMARY | 2025-01-12 21:44 | XMS_ITS | Referral Summary ---
Author Organization [facility] Address [address] [place] [address] Phone Care Team Providers Care Pearler Name Role Phone FaizaChristine MD Unavailable [phone] Melinda Magana MD Unavailable [phone] Nabila King MD Primary Care Provider + [phone] Gigi Méndez MD Unavailable [phone] Bc Martinez MD Unavailable [phone] Matrin Correa MD Unavailable [phone] Gildardo Gonzáles Si, MD Unavailable Encounters Date Type Department Care Team Description 12/26/2024 3:08 PM CDT - 12/26/2024 11:59 PM CDT Hospital Encounter [facility] [address] [place] [address], [place]. [address] [place] [address] Doug Elena MD Myalgia, other site Discharge Disposition: Discharge to home or self care 11/28/2024 10:12 AM CDT - 11/28/2024 11:59 PM CDT Hospital Encounter [facility] [address] [place] [address] A, [place] [address] Doug Elena MD Myalgia, other site (Primary Dx); Cervical radiculopathy; Facet arthropathy, cervical Discharge Disposition: Discharge to home or self care 11/26/2024 [facility]phone [facility] [address] [place] [address] Nabila King MD Lab Results 11/20/2024 Results Follow-Up [facility] [address] [place] [address] Nabila King MD Vitamin D 25 hydroxy, Lipid panel, Iron profile w/ IBC, Additional followed-up results: 5 11/14/2024 Telephone [facility] [address] [place] [address] Nabila King MD 11/14/2024 11:15 AM CDT Office Visit [facility] [address] [place] [address] Nabila King MD Annual physical exam (Primary Dx); 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); Neuroforaminal stenosis of lumbar spine; Osteoporosis, idiopathic; Periodontal disease; ASVD (arteriosclerotic vascular disease); Aortic valve insufficiency, etiology of cardiac valve disease unspecified; Paroxysmal atrial fibrillation (HCC); Multiple-type hyperlipidemia; Age-related nuclear cataract of right eye; Rosacea conjunctivitis, unspecified eye; 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; Obstructive sleep apnea hypopnea, moderate; Adjustment insomnia; Medication monitoring encounter; Need for hepatitis B screening test; Immunization counseling 10/22/2024 Telephone [facility] [address] [place] [address] Christine Kendall MD Schedule Surgery from Last 3 Months Allergies Active Allergy Reactions Criticality Noted Date Comments Chloramphenicol Other (See comments) Low Damaged liver and wiped out white blood cells Clarithromycin Hives Medium Gum Pykebv-Gxqdfe-Rpnx-Alcoho l Hives,Rash Medium 03/18/2022 Pt reports this [...] (six) hours as needed for pain Active ketorolac (ACULAR LS) 0.4 % drops Administer 1 drop into both eyes daily 5 mL 11 05/08/20 23 Active doxycycline hyclate (VIBRAMYCIN) 50 mg capsuleIndicati ons:Periodontal disease,Dental infection Take 1 capsule (50 mg total) by mouth daily with dinner Avoid dairy 30 minutes before to 60 minutes after taking the pill 100 capsule 3 03/06/20 24 Active senna (SENOKOT) 8.6 mg tabletIndicatio ns:Chronic constipation Take 1-2 tablets by mouth daily as needed for constipation 200 tablet 2 03/06/20 24 Active cholecalciferol (VITAMIN D-3) 50,000 unit capsuleIndicati ons:Vitamin D deficiency Take 1 capsule (50,000 Units total) by mouth once a week 60 capsule 03/06/20 24 Active dilTIAZem (CARDIZEM) 30 mg tablet 05/27/20 24 Active LORazepam (ATIVAN) 1 mg tabletIndicatio ns:Adjustment insomnia Take 0.5-1 tablets (0.5-1 mg total) by mouth nightly as needed for sleep 30 tablet 08/30/19 25 Active Additional Information Patient not taking.Reported on 11/28/2024 levothyroxine (SYNTHROID) 50 mcg tabletIndicatio ns:Hypothyroidi sm due to Alan's thyroiditis Take 1 tablet (50 mcg total) by mouth nightly 90 tablet 3 11/15/19 25 Active rosuvastatin (CRESTOR) 10 mg tabletIndicatio ns:Multiple-typ e hyperlipidemia, ASVD (arteriosclerot ic vascular disease) Take 1 tablet (10 mg total) by mouth daily before dinner 90 tablet 3 11/15/19 25 Active aspirin 81 mg enteric coated tablet Take 81 mg by mouth daily 2021 Discontinued magnesium oxide (MAG-OX) 400 mg (241.3 mg elemental magnesium) tabletIndicatio ns:hypomagnesem ia Take 1 tablet (400 mg total) by mouth 2 (two) times a day 60 tablet 11 11/25/192021 Discontinued Active Problems Problem Noted Date Diagnosed Date Endolymphatic hydrops of left ear 08/06/2024 Myelopathy concurrent with a nd due to spinal stenosis of cervical region 08/06/2024 Left mandibular body longer than right mandibula r body 08/06/2024 Chronic bilateral back pain 06/23/2024 Assessment & Plan (06/23/2024 6:27 PM SHAREPOINT ANALYST): Chronic, uncontrolled. Worse in the last 3 [...] 06/23/2024 Assessment & Plan (06/23/2024 6:28 PM SHAREPOINT ANALYST): Chronic, uncontrolled. Worse in the last 3 [...] 06/23/2024 Assessment & Plan (06/23/2024 6:40 PM SHAREPOINT ANALYST): Chronic, controlled. Recent facial MRI shows Nonspecific 1.6 x 0.3 x 1.3 cm peripherally enhancing fluid collection along the anterior midline mandibular body suspicious for an abscess in the appropriate clinical setting. No adjacent cortical destruction or bone edema. Mild mucosal thickening of the inferior left maxillary sinus. Patient has been taking daily doxycycline since February and has seen application development project manager multiple times. CBC from January unremarkable. 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 History of hematuria 03/12/2019 Overview (12/28/2020): MAC CavanaughIOS A. CT abdomen pelvis with and without contrast [...] 0 Assessment & Plan (06/23/2024 6:33 PM SHAREPOINT ANALYST): Chronic, controlled. Managed by Cardiology. CMP from [...] normal reflexes. She recently started turmeric and spiritual care coordinator last week along with stretching exercises. I did offer referral to pain management but patient declined. She will continue with current management and return as scheduled or sooner if needed. AI (aortic insufficiency) 04/05/2016 Overview (04/10/2022): ECHOCARDIOGRAM October 2021 Dr. Coleitis Mild to moderate aortic regurgitation. Moderate tricuspid regurgitation. Right ventricular systolic pressure is 30-40 mmHg suggestive of mild pulmonary hypertension. Low-tension glaucoma, bilateral, severe stage Assessment & Plan (07/15/2024 11:01 PM SHAREPOINT ANALYST): intraocular pressure (IOP) acceptable off meds status [...] DFE Assessment & Plan (09/20/2021 6:46 PM SHAREPOINT ANALYST): intraocular pressure (IOP) acceptable off meds status [...] 24-2 Assessment & Plan (07/23/2018 11:42 AM SHAREPOINT ANALYST): intraocular pressure (IOP) excellent- blebs functioning well [...] 2014 Assessment & Plan (07/15/2024 11:02 PM SHAREPOINT ANALYST): Now VS with glare symptoms No noted [...] observe Assessment & Plan (09/20/2021 12:48 PM SHAREPOINT ANALYST): Not VS- observe Assessment & Plan (12/14/2020 [...] visit Assessment & Plan (07/23/2018 11:42 AM SHAREPOINT ANALYST): Not visually significant Assessment & Plan (01/22/2018 [...] Problem Noted Date Diagnosed Date Resolved Date Acute hearing loss of both ears 08/06/2024 11/14/2024 Chronic pain syndrome 03/02/20222021 Assessment & Plan [...] undergo trial of Doxy 50 mg/day per director of publications Pseudophakia 01/22/2018 04/10/2022 Assessment & Plan (03/18/2022 11:46 AM CDT): Recommend MRx with local malted milk supervisor Mitral valve disease 09/30/2014 022 Overview (11/24/2016): Mitral valve disorder Immunizations Immunization Administration Dates Next Due COVID-19 MRNA (MODERNA) [...] points, staff should administer the PHQ-9) 0 11/28/2024 PHQ-9 Answer Date Recorded PHQ-9 Total Score 4 11/28/2024 Comments Unknown Sex and Gender Information Value Date Recorded Sex Assigned at Not on file Legal Sex Female 8:14 PM SHAREPOINT ANALYST Gender Identity Not on file Sexual Orientation Not on file 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 Not on file Last Filed Vital Signs Vital Sign Reading Time Taken Comments Blood Pressure 138/74 12/26/2024 4:04 PM CDT Pulse 80 12/26/2024 4:04 PM CDT Temperature 36.6 C (97.8 F) 12/26/2024 3:33 PM CDT Respiratory Rate 20 12/26/2024 4:04 PM CDT Oxygen Saturation 98% 12/26/2024 4:04 PM CDT Inhaled Oxygen Concentration - - Weight 56.7 kg (125 lb) 11/14/2024 11:45 AM CDT Height 162.6 cm (5' 4 ) 11/14/2024 11:45 AM CDT Body Mass Index 21.46 11/14/2024 11:45 AM CDT Plan of Treatment Not on file Procedures Procedure Name Priority Date/Time Associated Diagnosis Comments PAIN MGMT IMAGING ULTRASOUND TRIGGER POINT INJ 3+ MUSCLE GROUP Schedule Routine, Read Routine (OP Routine) 12/26/2024 3:08 PM CDT Myalgia, other site THYROID FUNCTION CASCADE Routine 11/18/2024 9:10 AM CDT 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 CBC WITH AUTO DIFFERENTIAL Routine 11/18/2024 9:10 AM CDT Aortic valve insufficiency, etiology of cardiac valve disease unspecified Medication monitoring encounter COMPREHENSIVE METABOLIC PANEL Routine 11/18/2024 9:10 AM CDT Aortic valve insufficiency, etiology of cardiac valve disease unspecified Medication monitoring encounter IRON PROFILE W/ IBC Routine 11/18/2024 9 :10 AM CDT Aortic valve insufficiency, etiology of cardiac valve disease unspecified Medication monitoring encounter Paroxysmal atrial fibrillation (HCC) LIPID PANEL Routine 11/18/2024 9:10 AM CDT Aortic valve insufficiency, etiology of cardiac valve disease unspecified Medication monitoring encounter VITAMIN D 25 HYDROXY Routine 11/18/2024 9:10 AM CDT Osteoporosis, idiopathic Medication monitoring encounter HEPATITIS B CORE ANTIBODY, TOTAL Routine 11/18/2024 9:10 AM CDT Need for hepatitis B screening test HEPATITIS B SURFACE ANTIBODY (IMMUNE STATUS) Routine 11/18/2024 9:10 AM CDT Need for hepatitis B screening test HEPATITIS B SURFACE ANTIGEN Routine 11/18/2024 9:10 AM CDT Need for hepatitis B screening test DEXA AXIAL SKELETON BONE DENSITY 1 OR MORE SITES Schedule Routine, Read Routine (OP Routine) 03/30/2023 2:05 PM CDT Senile osteoporosis from Last 3 Months or Most Recently Relevant to Health Maintenance Results * Imaging Ultrasound Trigger Point INJ 3+ Muscle Groups () (12/26/2024 3:08 PM CDT) Narrative [facility] - 12/26/2024 3:08 PM CDT The images from this study are not interpreted by Radiology. Please refer to the physician's procedure / OR operative note. us Doug Elena MD IM PAIN MGMT PROCEDURE S Final Result [facility] * Thyroid Function [place] (11/18/2024 9:10 AM CDT) TSH 1.970 0.450 - 4.500 uIU/mL [facility] - 01 Comment: No apparent thyroid disorder. Additional testing not indicated. In rare instances, Secondary Hypothyroidism as well as Subclinical Hypothyroidism have been reported in some patients with normal TSH values. Blood 11/18/2024 9:10 AM CDT 11/18/2024 Narrative [facility] - 11/19/2024 9:36 AM CDT Performed at: [facility] [id number] Business Analyst Consultant: Darek Farrell PhD, Phone: [phone] Nabila King MD LAB BLOOD ORDERABLES Final Result Performing Organization Address [facility] de Phone Number [facility] * Iron profile w/ IBC (11/18/2024 9:10 AM CDT) [facility] Iron Bind.Cap.(TIBC) 312 250 - 450 ug/dL [facility] - 01 UIBC 173 118 - 369 ug/dL [facility] - 01 Iron 139 27 - 139 ug/dL [facility] - 01 Iron saturation 45 15 - 55 % [facility] - 01 Blood 11/18/2024 9:10 AM CDT 11/18/2024 Narrative [facility] - 11/19/2024 9:36 AM CDT Performed at: [facility] [id number] Business Analyst Consultant: Darek Farrell PhD, Phone: [phone] Nabila King MD LAB BLOOD ORDERABLES Final Result Performing Organization Address [facility] de Phone Number [facility] * (ABNORMAL) CBC with auto differential (11/18/2024 9:10 AM CDT) [facility] WBC 6.4 3.4 - 10.8 x10E3/uL [facility] - 01 RBC 5.28 3.77 - 5.28 x10E6/uL [facility] - 01 Hgb 16.2(H) 11.1 - 15.9 g/dL [facility] - 01 Hct 48.5(H) 34.0 - 46.6 % [facility] - 01 MCV 92 79 - 97 fL [facility] - 01 MCH 30.7 26.6 - 33.0 pg [facility] - 01 MCHC 33.4 31.5 - 35.7 g/dL [facility] - 01 Rdw 13.2 11.7 - 15.4 % [facility] - 01 Platelets 300 150 - 450 x10E3/uL [facility] - 01 Neutrophils pct 51 Not Estab. % [facility] - 01 Lymphs pct 38 Not Estab. % [facility] - 01 Monocytes pct 9 Not Estab. % [facility] - 01 Eosinophils pct 1 Not Estab. % [facility] - 01 Basophil pct 1 Not Estab. % [facility] - 01 Neutrophil abs 3.3 1.4 - 7.0 x10E3/uL [facility] - 01 Lymphs (Absolute) 2.4 0.7 - 3.1 x10E3/uL [facility] - 01 Monocyte abs 0.6 0.1 - 0.9 x10E3/uL [facility] - 01 Eosinophils, abs 0.1 0.0 - 0.4 x10E3/uL [facility] - 01 Basophils, abs 0.1 0.0 - 0.2 x10E3/uL [facility] - 01 Immature Granulocytes 0 Not Estab. % [facility] - 01 Immature Grans (Abs) 0.0 0.0 - 0.1 x10E3/uL [facility] - 01 Blood 11/18/2024 9:10 AM CDT 11/18/2024 Narrative [facility] - 11/19/2024 7:37 AM CDT Performed at: [address] [place] [id number] Business Analyst Consultant: Darek Farrell PhD, Phone: [phone] us Nabila King MD LAB BLOOD ORDERABLES Final Result [facility] * Hepatitis B core antibody, total Blood (11/18/2024 9:10 AM CDT) Hep B core IgG/IgM Negative Negative [facility] - Blood 11/18/2024 9:10 AM CDT 11/18/2024 Narrative [facility] - 11/19/2024 7:37 AM CDT Performed at: [address] [place] [id number] Business Analyst Consultant: Darek Farrell PhD, Phone: [phone] Nabila King MD LAB MICROBIOLOGY - GENERAL ORDERABLES Final Result Performing Organization Address [facility] Co de Phone Number [facility] * Vitamin D 25 hydroxy (11/18/2024 9:10 AM CDT) Vitamin D, 25-Hydroxy 46.7 30.0 - 100.0 ng/mL [facility] - Comment: Vitamin D deficiency has been defined by the [place] of Medicine and an Endocrine Society practice guideline as a level of serum 25-OH vitamin D less than 20 ng/mL (1,2). The Endocrine Society went on to further define vitamin D insufficiency as a level between 21 and 29 ng/mL (2). 1. IOM ([place] of Medicine). 2010. Dietary reference intakes for calcium and D. [place]: The National Academies Press. 2. Harvey MF, [place], Kenneth RICHARDSON, et al. Evaluation, treatment, and prevention of vitamin D deficiency: an Endocrine Society clinical practice guideline. JCEM. 2010; 96(7):1911-30. Blood 11/18/2024 9:10 AM CDT 11/18/2024 Narrative [facility] - 11/19/2024 7:37 AM CDT Performed at: [address] [place] [id number] Business Analyst Consultant: Darek Farrell PhD, Phone: [phone] Nabila King MD LAB BLOOD ORDERABLES Final Result Performing Organization Address [facility] Co de Phone Number [facility] * Hepatitis B surface antibody (immune status) Blood (11/18/2024 9:10 AM CDT) HBsAb (immune status) Non Reactive [facility] - 01 Comment: Non Reactive: Not immune to HBV infection. Equivocal: Unable to determine if anti-HBs is present at levels consistent with immunity. Reactive: Anti-HBs concentration detected at greater than 10 mIU/mL. Individual is considered to be immune to infection with HBV. Blood 11/18/2024 9:10 AM CDT 11/18/2024 Narrative [facility] - 11/19/2024 7:37 AM CDT Performed at: [address] [id number] Business Analyst Consultant: Darek Farrell PhD, Phone: [phone] Nabila King MD LAB MICROBIOLOGY - GENERAL ORDERABLES Final Result Performing Organization Address [facility] Co de Phone Number [facility] * Hepatitis B Surface Antigen Blood (11/18/2024 9:10 AM CDT) HepBsAg Negative Negative [facility] - Blood 11/18/2024 9:10 AM CDT 11/18/2024 Narrative [facility] - 11/19/2024 7:37 AM CDT Performed at: [address] [id number] Business Analyst Consultant: Darek Farrell PhD, Phone: [phone] Nabila King MD LAB MICROBIOLOGY - GENERAL ORDERABLES Final Result Performing Organization Address [facility] de Phone Number [facility] * Lipid panel (11/18/2024 9:10 AM CDT) Cholesterol 152 100 - 199 mg/dL [facility] - 01 Triglycerides 75 0 - 149 mg/dL [facility] - 01 HDL Cholesterol 68 >39 mg/dL [facility] - 01 VLDL 14 5 - 40 mg/dL [facility] - 01 LDL, calculated 70 0 - 99 mg/dL [facility] - 01 Blood 11/18/2024 9:10 AM CDT 11/18/2024 Narrative [facility] - 11/19/2024 9:36 AM CDT Performed at: [address] [id number] Business Analyst Consultant: Darek Farrell PhD, Phone: [phone] Nabila King MD LAB BLOOD ORDERABLES Final Result [facility] * Comprehensive metabolic panel (11/18/2024 9:10 AM CDT) [facility] Glucose 89 70 - 99 mg/dL [facility] - 01 BUN 13 8 - 27 mg/dL [facility] - 01 Creatinine, Serum 0.82 0.57 - 1.00 mg/dL [facility] - 01 eGFR 69 >59 mL/min/1.73 [facility] - 01 BUN/creat ratio 16 12 - 28 [facility] - 01 Sodium 140 134 - 144 mmol/L [facility] - 01 Potassium, sr 4.7 3.5 - 5.2 mmol/L [facility] - 01 Chloride 99 96 - 106 mmol/L [facility] - 01 CO2 27 20 - 29 mmol/L [facility] - 01 Calcium 9.9 8.7 - 10.3 mg/dL [facility] - 01 Protein, sr 6.9 6.0 - 8.5 g/dL [facility] - 01 Albumin 4.7 3.7 - 4.7 g/dL [facility] - 01 Globulin, Total 2.2 1.5 - 4.5 g/dL [facility] - 01 Bilirubin, Total 0.7 0.0 - 1.2 mg/dL [facility] - 01 Alk phos 74 44 - 121 IU/L [facility] - 01 AST 29 0 - 40 IU/L [facility] - 01 ALT 28 0 - 32 IU/L [facility] - 01 Blood 11/18/2024 9:10 AM CDT 11/18/2024 Narrative [facility] - 11/19/2024 7:37 AM CDT Performed at: - [facility] [id number] Business Analyst Consultant: Darek Farrell PhD, Phone: [phone] Nabila King MD LAB BLOOD ORDERABLES Final Result [facility] * Dexa Axial Skeleton Bone Density 1 or 2 Site (03/30/2023 2:05 PM CDT) Anatomical Region Laterality Modality Body N/A Radiographic Cayla ging Narrative 03/30/2023 3:51 PM CDT Patient Name: Lisa Conn Date of : 1935 Date of scan: 03/30/2023 Bone mineral density was performed on a [employer] Discovery Densitometer. Based on machine cross-calibration and precision studies [...] density scan were prepared by Tona Mukherjee (R)([facility]) who is accredited by the International Society of Clinical Densitometry. The overall patient assessment and scan interpretation were performed by Mike Moreno M.D. who is certified by the International Society of Clinical Densitometry. 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 [place] [address] PCP - General Internal Medicine 12/16/20 Christine Kendall MD Surgeon Ophthalmology 12/13/20 Melinda Magana MD [address] [place] [address] Consulting Physician Internal Medicine 12/13/20 Gigi Méndez MD [address] [place] [address] Referring Physician Cardiology 02/18/21 Bc Martinez MD [address] [place] [address] Referring Physician Cardiology 08/22/23 Martin Correa MD [address] [place] [address] Consulting Physician Cardiothoracic Surgery 08/22/23 Gildardo Gonzáles Si, MD [address] [facility] [address] [address] Consulting Physician Neurology 07/09/24
--- OUTSIDE RECORDS SUMMARY | 2025-01-12 21:44 | XMS_ITS | Encounter Summary ---
Author Organization [facility] Address [address] [place] [address] Phone Care Team Providers Care Wheelchair Van Driver Name Role Phone Jason Winters MD Primary Care Provider [phone] Christine Kendall MD Unavailable [phone] Sita Magana MD Unavailable [phone] Nabila King MD Primary Care Provider + [phone] Regulo Pandey MD Unavailable Gigi Méndez MD Unavailable [phone] Bc Martinez MD Unavailable [phone] Bc Martinez MD Unavailable [phone] Martin Correa MD Unavailable [phone] Gildardo Gonzáles Si, MD Unavailable Encounter Details Date Type Department Care Team (Late st Contact Info) Description 09/09/2019 Orders Only [facility] [address] [place] [address] Nabila King MD [address] [place] [address] Social History Tobacco Use Types Packs/Day Years Used Date Smoking Tobacco: Never Smokeless Tobacco: Never Alcohol Use Standard Drinks/Week Comments No 0 (1 standard drink = 0.6 oz pur e alcohol) Comments Unknown Sex and Gender Information Value Date Recorded Sex Assigned at Not on file Legal Sex Female 8:14 PM DYNAMITE SHOOTER Gender Identity Not on file Sexual Orientation [...] on filedocumented in this encounter Care Teams Wheelchair Van Driver Relationship Specialty Start Date End Date Jason Winters MD [address] [place] [address] PCP - General Family Medicine 07/23/18 12/15/20 Nabila King MD [facility] [address] [place] [address] PCP - General Internal Medicine 12/16/20 Christine Kendall MD [address] [place] [address] Surgeon Ophthalmology 12/13/20 Sita Magana MD [facility] [address] [place] [address] Consulting Physician Internal Medicine 12/13/20 Regulo Pandey MD [address] [place] [address] Referring Physician Cardiovascular Disease 12/16/20 Gigi Méndez MD [address] [place] [address] Referring Physician Cardiology 02/18/21 Bc Martinez MD [address] [place] [address] Consulting Physician Cardiology 10/22/21 08/21/23 Bc Martinez MD [address] [place] [address] Referring Physician Cardiology 08/22/23 Martin Correa MD [address] [place] [address] Consulting Physician Cardiothoracic Surgery 08/22/23 [facility] [address] [place] [address] Consulting Physician Neurology 07/09/24 documented as of this encounter
--- OUTSIDE RECORDS SUMMARY | 2025-01-12 21:44 | XMS_ITS | Clinical Summary ---
Author Organization [facility] Address [address] [place] [address] Phone Care Team Providers Care Treasury Director Name Role Phone FaizaChristine flaherty MD Unavailable [phone] Melinda Magana MD Unavailable [phone] Nabila King MD Primary Care Provider [phone] Gigi Méndez MD Unavailable [phone] Bc Martinez MD Unavailable [phone] Martin Correa MD Unavailable [phone] [facility] Hospital[facility], MD Unavailable Allergies Active Allergy Reactions Criticality Noted Date Comments Chloramphenicol Other (See comments) Low Damaged liver and wiped out white blood cells Clarithromycin Hives Medium Gum Hjbbjs-Nqzxgq-Ygzj-Alcoho l Hives,Rash Medium 03/18/2022 Pt reports this [...] (two) times a day 60 tablet 11 11/25/19 22 2021 Discontinued Active Problems Problem Noted Date Diagnosed Date Endolymphatic hydrops of left ear 08/06/2024 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 Worse in the last 3 [...] 06/23/2024 Assessment & Plan (06/23/2024 6:28 PM CENA): Chronic, uncontrolled. Worse in the last 3 [...] 06/23/2024 Assessment & Plan (06/23/2024 6:40 PM CENA): Chronic, controlled. Recent facial MRI shows Nonspecific 1.6 x 0.3 x 1.3 cm peripherally enhancing fluid collection along the anterior midline mandibular body suspicious for an abscess in the appropriate clinical setting. No adjacent cortical destruction or bone edema. Mild mucosal thickening of the inferior left maxillary sinus. Patient has been taking daily doxycycline since February and has seen branch rental manager multiple times. CBC from January unremarkable. [...] 0 Assessment & Plan (06/23/2024 6:33 PM CENA): Chronic, controlled. Managed by Cardiology. CMP from [...] normal reflexes. She recently started turmeric and child day care provider last week along with stretching [...] stage Assessment & Plan (07/15/2024 11:01 PM CENA): intraocular pressure (IOP) acceptable off meds status [...] DFE Assessment & Plan (09/20/2021 6:46 PM CENA): intraocular pressure (IOP) acceptable off meds status [...] 24-2 Assessment & Plan (07/23/2018 11:42 AM CENA): intraocular pressure (IOP) excellent- blebs functioning well [...] 2014 Assessment & Plan (07/15/2024 11:02 PM CENA): Now VS with glare symptoms No noted [...] observe Assessment & Plan (09/20/2021 12:48 PM CENA): Not VS- observe Assessment & Plan (12/14/2020 [...] visit Assessment & Plan (07/23/2018 11:42 AM CENA): Not visually significant Assessment & Plan (01/22/2018 [...] on culture results. Other atopic dermatitis 02/18/2021 082 08/2021 Assessment & Plan (02/18/2021 2:13 PM [...] undergo trial of Doxy 50 mg/day per clip on sunglasses inspector Pseudophakia 01/22/2018 04/10/2022 Assessment & Plan (03/18/2022 11:46 AM CDT): Recommend MRx with local cover marker Mitral valve disease 09/30/2014 022 Overview (11/24/2016): Mitral valve disorder Encounters Date Type Department Care Team Description 12/26/2024 3:08 PM CDT - 12/26/2024 11:59 PM CDT Hospital Encounter [facility] [address] [facility] [address] [place] [address] Doug Elena MD Myalgia, other site Discharge Disposition: Discharge to home or self care 11/28/2024 10:12 AM CDT - 11/28/2024 11:59 PM CDT Hospital Encounter [facility] [address] [place] [address] Doug Elena MD Myalgia, other site (Primary Dx); Cervical radiculopathy; Facet arthropathy, cervical Discharge Disposition: Discharge to home or self care 11/26/2024 Telephone [facility] [address] [facility] [address] [place] [phone] Nabila King MD Lab Results 11/20/2024 Results Follow-Up [facility] [address] [facility] [address] [place] [phone] Nabila King MD Vitamin D 25 hydroxy, Lipid panel, Iron profile w/ IBC, Additional followed-up results: 5 11/14/2024 11:15 AM CDT Office Visit [facility] [address] [facility] [address] [place] [phone] Nabila King MD Annual physical exam (Primary [...] for hepatitis B screening test; Immunization counseling 11/14/2024 Telephone [facility] [address] [place] [phone] Nabila King MD 10/22/2024 Telephone [facility] [address] [place] [address] Christine Kendall MD Schedule Surgery from Last 3 Months Immunizations Immunization Administration Dates Next Due COVID-19 [...] adenoma rectum ABLATION OF AFIB FLUTTER 02/18/2021 [facility] CARDIAC PACEMAKER PLACEMENT 10/19/2021 - 11/18/2021 [...] trabeculectomy 01/22/2001 Right eye Migraine Thyroid disease Acute hearing loss of both ears 08/06/2024 Family History Medical History Relation Name Comments [...] on file Legal Sex Female 8:14 PM CENA Gender Identity Not on file Sexual Orientation [...] 11/14/2024 11:45 AM CDT Plan of Treatment Health Maintenance Due Date Last Done Comments Covid-19 Vaccine (2023-2 5 season) 2024 05/01/2024, 05/01/2024, 05/31/2023, Additional history exists DTaP/Tdap/Td Vaccine (2 - Tdap) 03/21/2025 5 Fall Risk Assessment 11/14/2025 11/14/2024, 08/10/2023, 07/04/2022, Additional history exists Well Visit 65+ 11/14/2025 11/14/2024, 07/22, 07/04/2022 Depression Screening 11/28/2025 11/28/2024, 11/28/2024, 11/14/2024, Additional history exists Zoster Vaccine Completed 05/03/2018, 02/02/2018 Pneumococcal vaccine 65+ Completed 022, 05/08/2016, 06/18/2008 Osteoporosis Screening-Bone Density Scan Discontinued 03/30/2023, 01/31/2019, 01/11/2018, Additional history exists Influenza Vaccine Completed 04/18/2024, , 05/24/2022, Additional history exists Hepatitis B Screening Completed 11/18/2024 Procedures Procedure Name Priority Date/Time Associated Diagnosis [...] OR operative note. us Doug Elena MD IMG PAIN MGMT PROCEDURE S Final Result [facility] * Thyroid Function [place] (11/18/2024 9:10 AM CDT) TSH 1.970 0.450 - 4.500 uIU/mL [facility] - 01 Comment: No apparent thyroid disorder. Additional testing not indicated. In rare instances, Secondary Hypothyroidism as well as Subclinical Hypothyroidism have been reported in some patients with normal TSH values. Blood 11/18/2024 9:10 AM CDT 11/18/2024 Narrative [facility] - 11/19/2024 9:36 AM CDT Performed at: [address] [place] [address] [id number] Printer Slotter Helper: Darek Farrell PhD, Phone: [phone] Nabila King MD LAB BLOOD ORDERABLES Final Result Performing Organization Address [facility]/ZIP Co de Phone Number [facility] - * Iron profile w/ IBC (11/18/2024 9:10 AM CDT) Pathologist [facility] Iron Bind.Cap.(TIBC) 312 250 - 450 ug/dL [facility] - 01 UIBC 173 118 - 369 ug/dL [facility] - 01 Iron 139 27 - 139 ug/dL [facility] - 01 Iron saturation 45 15 - 55 % [facility] - 01 Blood 11/18/2024 9:10 AM CDT 11/18/2024 Narrative [facility] - 11/19/2024 9:36 AM CDT Performed at: [address] [place] [id number] Printer Slotter Helper: Darek Farrell PhD, Phone: [phone] us Nabila King MD LAB BLOOD ORDERABLES Final Result Performing Organization Address City/[facility]/ZIP Co de Phone Number [facility] - * (ABNORMAL) CBC with auto differential (11/18/2024 9:10 AM CDT) [facility] WBC 6.4 3.4 - 10.8 x10E3/uL [facility] [...] - 11/19/2024 7:37 AM CDT Performed at: [facility] [id number] Printer Slotter Helper: Darek Farrell PhD, Phone: [phone] Nabila King MD LAB BLOOD ORDERABLES Final Result [facility] * Hepatitis B core antibody, total Blood (11/18/2024 9:10 AM CDT) Hep B core IgG/IgM Negative Negative [facility] - 01 Blood 11/18/2024 9:10 AM CDT 11/18/2024 Narrative [facility] - 11/19/2024 7:37 AM CDT Performed at: [facility] [id number] Printer Slotter Helper: Darek Farrell PhD, Phone: [phone] us Nabila King MD LAB MICROBIOLOGY - GENERAL ORDERABLES Final Result Performing Organization Address [facility] de Phone Number [facility] * Vitamin D 25 hydroxy (11/18/2024 9:10 AM CDT) [facility] Vitamin D, 25-Hydroxy 46.7 30.0 - 100.0 ng/mL [facility] Comment: Vitamin D deficiency has been defined by the [place] of Medicine and an Endocrine Society practice guideline as a level of serum 25-OH vitamin D less than 20 ng/mL (1,2). The Endocrine Society went on to further define vitamin D insufficiency as a level between 21 and 29 ng/mL (2). 1. IOM ([place] of Medicine). 2010. Dietary reference intakes for calcium and D. [place]: The National Academies Press. 2. Harvey MF, Monica COHEN, Kenneth RICHARDSON, et al. Evaluation, treatment, and prevention of vitamin D deficiency: an Endocrine Society clinical practice guideline. JCEM. 2010; 96(7):1911-30. Blood 11/18/2024 9:10 AM CDT 11/18/2024 Narrative [facility] - 11/19/2024 7:37 AM CDT Performed at: [facility] [id number] Printer Slotter Helper: Darek Farrell PhD, Phone: [phone] us Nabila King MD LAB BLOOD ORDERABLES Final Result Performing Organization Address [facility] Co de Phone Number [facility] * Hepatitis B surface antibody (immune status) Blood (11/18/2024 9:10 AM CDT) [facility] HBsAb (immune status) Non Reactive [facility] - 01 Comment: Non Reactive: Not immune to HBV infection. Equivocal: Unable to determine if anti-HBs is present at levels consistent with immunity. Reactive: Anti-HBs concentration detected at greater than 10 mIU/mL. Individual is considered to be immune to infection with HBV. Blood 11/18/2024 9:10 AM CDT 11/18/2024 Narrative [facility] - 11/19/2024 7:37 AM CDT Performed at: [address] [place] [id number] Printer Slotter Helper: Darek Farrell PhD, Phone: [phone] us Nabila King MD LAB MICROBIOLOGY - GENERAL ORDERABLES Final Result Performing Organization Address [facility] Co de Phone Number [facility] - * Hepatitis B Surface Antigen Blood (11/18/2024 9:10 AM CDT) [facility] HepBsAg Negative Negative [facility] - 01 Blood 11/18/2024 9:10 AM CDT 11/18/2024 Narrative [facility] - 11/19/2024 7:37 AM CDT Performed at: [address] [place] [id number] Printer Slotter Helper: Darek Farrell PhD, Phone: [phone] us Nabila King MD LAB MICROBIOLOGY - GENERAL ORDERABLES Final Result Performing Organization Address [facility] Co de Phone Number [facility] - * Lipid panel (11/18/2024 9:10 AM CDT) [facility] Cholesterol 152 100 - 199 mg/dL [facility] - 01 Triglycerides 75 0 - 149 mg/dL [facility] - 01 HDL Cholesterol 68 >39 mg/dL [facility] - 01 VLDL 14 5 - 40 mg/dL [facility] - 01 LDL, calculated 70 0 - 99 mg/dL [facility] - 01 Blood 11/18/2024 9:10 AM CDT 11/18/2024 Narrative [facility] - 11/19/2024 9:36 AM CDT Performed at: [address] [id number] Printer Slotter Helper: Darek Farrell PhD, Phone: [phone] us Nabila King MD LAB BLOOD ORDERABLES Final Result [facility] - 01 * Comprehensive metabolic panel (11/18/2024 9:10 AM CDT) [facility] Glucose 89 70 - 99 mg/dL [facility] [...] - 11/19/2024 7:37 AM CDT Performed at: [address], [place] [id number] Printer Slotter Helper: Darek Farrell PhD, Phone: [phone] us Nabila King MD LAB BLOOD ORDERABLES Final Result [facility] - 01 * Dexa Axial Skeleton Bone Density 1 or 2 Site (03/30/2023 2:05 PM CDT) Anatomical Region Laterality Modality Body N/A Radiographic Cayla ging Narrative 03/30/2023 3:51 PM CDT Patient Name: Lisa Conn Date of : 1935 Date of scan: 03/30/2023 Bone mineral density was performed on a [employer] Discovery Densitometer. Based on machine cross-calibration and [...] by the International Society of Clinical Densitometry. [id number] Nabila King MD IMG DXA PROCEDURES Final R esult from Last 3 Months or Most Recently Relevant to Health Maintenance Insurance [employer] MEDICARE [facility] MEDICARE A[employer] MEDICARE Advance Directives For more information, please contact: [phone] Documents on File Type Date Recorded Patient Solution Sales Senior Executive Expl anation ADVANCE DIRECTIVE 07/04/2022 POWER [employer] Care Teams Treasury Director Relationship Specialty Start Date End Date Nabila King MD [address] [place] [address] PCP - General Internal Medicine 12/16/20 Christine Kendall MD Surgeon Ophthalmology 12/13/20 Melinda Magana MD [address] [place] [address] Consulting Physician Internal Medicine 12/13/20 Gigi Méndez MD [address] [place] [address] Referring Physician Cardiology 02/18/21 Bc Martinez MD [address] [place] [address] Referring Physician Cardiology 08/22/23 Martin Correa MD [address] [place] [address] Consulting Physician Cardiothoracic Surgery 08/22/23 Gildardo Gonzáles Si, MD [address] [place] [address] Consulting Physician Neurology 07/09/24
--- OUTSIDE RECORDS SUMMARY | 2025-01-12 21:44 | XMS_ITS | Encounter Summary ---
Author Organization [facility] Address [address] [place] [address] Phone Care Team Providers Care Deckhand Shrimp Boat Name Role Phone Jason Winters MD Primary Care Provider [phone] Christine Kendall MD Unavailable [phone] Sita Magana MD Unavailable [phone] Nabila King MD Primary Care Provider + [phone] Regulo Pandey MD Unavailable Gigi Méndez MD Unavailable [phone] Bc Martinez MD Unavailable [phone] Bc Martinez MD Unavailable [phone] Martin Correa MD Unavailable [phone] Gildardo Gonzáles Si, MD Unavailable Encounter Details Date Type Department Care Team (Late st Contact Info) Description 03/12/2019 Orders Only [facility] [address] [place] [address] Nabila King MD [address] [place] [address] Social History Tobacco Use Types Packs/Day Years Used Date Smoking Tobacco: Never Smokeless Tobacco: Never Alcohol Use Standard Drinks/Week Comments No 0 (1 standard drink = 0.6 oz pur e alcohol) Comments Unknown Sex and Gender Information Value Date Recorded Sex Assigned at Not on file Legal Sex 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 Gender Identity Not on file Sexual [...] on filedocumented in this encounter Care Teams Deckhand Shrimp Boat Relationship Specialty Start Date End Date Jason Winters MD [address] [place] [address] PCP - General Family Medicine 07/23/18 12/15/20 [facility]abil[facility] [address] [place] [address] PCP - General Internal Medicine 12/16/20 Christine Kendall MD [address] [place] [address] Surgeon Ophthalmology 12/13/20 Sita Magana MD [facility] [address] [place] [address] Consulting Physician Internal Medicine 12/13/20 Regulo Pandey MD [address] [place] [address] Referring Physician Cardiovascular Disease 12/16/20 Gigi Méndez MD [address] [place] [address] Referring Physician Cardiology 02/18/21 Bc Martinez MD [address] [place] [address] Consulting Physician Cardiology 10/22/21 08/21/23 Bc Martinez MD [address] [place] [address] Referring Physician Cardiology 08/22/23 Martin Correa MD [address] [place] [address] Consulting Physician Cardiothoracic Surgery 08/22/23 [facility] [address] [place] [address] Consulting Physician Neurology 07/09/24 documented as of this encounter
--- OUTSIDE RECORDS SUMMARY | 2025-01-12 21:44 | XMS_ITS | CONTINUITY OF CARE DOCUMENT ---
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 Damaris Sprague Aortic insufficiency, moderate active Jeromy Marcus Tricuspid regurgitation, moderate-severe active 09/10 Jossie Marcus Atrial fibrillation active Jossie Marcus Sinus bradycardia active Jossie Marcus Alan's thyroiditis active Jossie Marucs Glaucoma active Jossie Marcus Pulmonary hypertension active Jossie Marcus Dizziness active Jossie Marcus Fatigue active Jossie Marcus Sick sinus syndrome active Jossie Marcus Near syncope active Dario Ahmedzai Ventricular tachycardia active Dario Ahmedza i Chest pain active Dario Ahmedzai Shortness of breath active Dario Ahmedzai Insomnia active Dario Ahmedzai Mitral regurgitation, mild active Bc vidales MD ENCOUNTERS Date Type Provider Location Encounter Diag nosis - 1 In-person encounter Office Visit Bc Martinez MD [facility] 9 - 9 In-person encounter Office Visit Bc Martinez MD [facility] 1 - 4 In-person encounter Office Visit Bc Martinez MD [facility] Mitral regurgitation, mild 3 - 3 In-person encounter Office Visit Bc Martinez MD [facility] Shortness of breathInsomnia 3 - 3 In-person encounter Office Visit Bc Martinez MD [facility] 0 - 0 In-person encounter Office Visit Bc Martinez MD [facility] Near syncopeVentricular tachycardiaChest pain 0 - 2 In-person encounter Office Visit Bc Martinez MD [facility] 5 - 8 In-person encounter Office Visit Bc Martinez MD [facility] 6 - 0 In-person encounter Office Visit Bc Martinez MD [facility] 3 - 5 In-person encounter Office Visit Bc Martinez MD [facility] 5 - 5 In-person encounter Office Visit Bc Martinez MD [facility] Office 8 - 8 In-person encounter Office Visit Bc Martinez MD [facility] Office 8 - 1 In-person encounter Office Visit Bc Martinez MD [facility] 1 - 1 In-person encounter Office Visit Bc Martinez MD [facility] Aortic insufficiency, moderateTricuspid regurgitation, moderate-severeAtrial fibrillationSinus [...] Martinez MD blood pressure, cuff size regular [facility] Andrew blood pressure, diastolic 85 mm[Hg] [facility] blood pressure, systolic 122 mm[Hg] Maximino [facility] pulse rate 80 /min [facility] oxygen saturation, oximetry 98 % [facility] respiratory rate E&M 15 /min Cristina hunter weight E&M 122 [lb_av] Cristina [place] height E&M 64 [in_i] [facility] Body Mass Index (Ratio) 21.11 kg/m2 [...] Martinez MD blood pressure, cuff size regular In karl Caruso blood pressure, diastolic 82 mm[Hg] Mi karl [place] blood pressure, systolic 140 mm[Hg] [facility] stephanie [place] oxygen saturation, oximetry 98 % Vanessa Caruso [...] Summers oxygen saturation, oximetry 98 % [facility] E&M 14 /min [facility] pulse rate 80 /min Shanna Greer agnesian [...] Not Estab. platelet count 264 X10E3/UL [employer] 152-262 8195/01 /21 red blood cell distribution width 13.1 [...] LinkLogic 3.5-5.2 sodium, serum 139 mmol/L [employer] 388-545 3402/01 /21 urea nitrogen/creatinine ratio, serum 23 LinkLogic [...] LinkLogic 3.5-5.2 sodium, serum 141 mmol/L [employer] 803-234 4313/06 /15 urea nitrogen/creatinine ratio, serum 17 LinkLogic [...] Not Estab. platelet count 320 X10E3/UL [employer] 917-985 6608/06 /15 red blood cell distribution width 12.8 [...] iron binding capacity, unsaturated 243 ug/dL [employer] 804-497 2398/03 /16 iron binding capacity, total 301 ug/dL [employer] 043-894 1705/03 /16 alanine aminotransferase (SGPT), serum 24 1/L [...] LinkLogic 3.5-5.2 sodium, serum 142 mmol/L [employer] 687-470 4825/03 /16 urea nitrogen/creatinine ratio, serum 20 LinkLogic [...] Not Estab. platelet count 256 X10E3/UL [employer] 638-756 9861/03 /16 red blood cell distribution width 13.0 [...] LinkLogic 3.5-5.2 sodium, serum 138 mmol/L [employer] 694-759 6470/01 /28 urea nitrogen/creatinine ratio, serum 20 LinkLogic [...] Not Estab. platelet count 276 X10E3/UL [employer]Log[employer] 166-468 3361/01 /28 red blood cell distribution width 12.8 [...] Bubba aparicio smoking status Never smoker Kayden Cambria Exercise counseling No - Medical Reason Ras [...] Payer name Policy type / Coverage type Dana red alliance party ID [employer]ETNA [employer] Other [employer] HEALTHCARE Other AETNA MEDICARE [place] PPO Medicare [id number] 100 ADVANCE DIRECTIVES Name Date DISCUSSED - NO DECISION MADE TREATMENT PLAN Date Name Performer [id number],S, Dario Wade i [id number],B,e pisodes occur almost daily but not worse from before Dario Morocho [id number],S, Dario Wade i [id number],S, Dario Wade i [id number],C, u nchanged from echo 09/2022 Dario Morocho [id number],C,on Eliquis Kita Morocho [id number],C,U nlikely to be cardiac as her stress nuclear and echo were overall normal. Dario Morocho [id number],C,unchanged fro m echo today Dario Morocho [id number],S,S mellisa last visit she complains of dizziness, near syncope, vision changes. She also complains of chest pain which radiates to her neck. She has poor sleep quality. She has VT episodes seen on device check, will check echo to assess for EF and stress nuclear to rule out ischemia as culprit for VT. Dario Wadei [id number],S, Dario Wade i [id number],C,Occurs daily Dario Morocho [id number],C, Device check shows new episodes of VT, will check echo and stress nuclear to evaluate and rule out ischemia. Dario Morocho [id number],C,S xs occur almost daily. Device check shows new episodes of VT, will check echo and stress nuclear to evaluate . Dario Morocho [id number],W,R ecent device check showed AT/AF Jasper: 0.0%, % Pacing: RA - 87.0% RV - 12.0%. Dario Morocho [id number],C,u nknown etiology of her dizziness and imbalance, recommended she decrease her Diltiazem to 30 mg BID and see if her sxs improve. Dario Morocho [id number],C,R emote check from 04/30 showed AT/AF Jasper: 0.0% % Pacing: RA - 88.0% RV - 19.0% Dario Wade [id number],C, I mproved. Dario Morocho [id number],C,E cho CONCLUSIONS: 1 . Normal left ventricular [...] root size. Mild aortic wall calcification. [facility] [id number],C,Improved. Antonieta rené [facility] [id number],C,H er recent device check showed AT/AF Jasper: 0.0%, % Pacing: RA - 86.0% RV - 8.0%. 02/2022 Dario beckyjoie [id number],C,No reoccurran ce. Dario ct [id number],C,l ast EKG with NSR. No events on device. T he 'red streaks' around incision to PPM is from the sutures used. Not on AC. Takes only ASA daily. Reinforced to patient to take Eliquis 2.5 mg bid. Diltiazem was decreased to 30 mg tid. Jolene Roland JASON [id number],B,resolved. She rry Luan GOMEZ [id number],S,moderate per last echo Jolene Roland JASON [id number],C, C ontinues to have dizziness. Pacemaker is functioning well. Will schedule echo and carotid duplex and obtain labwork for further assessment. Nichole Dustin [id number],C, C ontinues to have dizziness. Pacemaker is functioning well. Will schedule echo and carotid duplex and obtain labwork for further assessment. Nichole Dustin [id number],S, H ad pacemaker placed. Device is functioning well Nichole Ashleykoko [id number],C, r emains on Eliquis 2.5mg BID. Device check last week showed no afib Nichole Ashleykoko [id number],C, F ollows with PCP. Celestenara Key [place] [id number],S, Celeste Yesi GOMEZ [id number],C,w ill increase HR to [address] on device. will check CT head non-contrast. will check cxr Celeste Key NP [id number],C,i nterrogation no events. will increase rate to 80. will check cxr, CT head without contrast. Celeste Key NP [id number],C,s/p PPM. will check CXR today Celeste Yesi GOMEZ [id number],C,r emains on Eliquis 2.5mg BID. interrogation today,no AFIB. Celeste Yesi GOMEZ [id number],C,r estart eliquis now take 5 mg of eliquis now and continue 2.5 mg PO bid atrting tomorrow Bc Martinez MD [id number],C, Bc salinas MD [id number],B, Bc salinas MD [id number],C, Bc salinas MD [id number],C,p ost pacemaker implantation O rders: G lobal No Charge (CPT-00529) Bc Martinez MD [id number],C,s hould improve if in sinus O rders: C omplete Echo (CPT-07303) Bc Martinez MD [id number],W,a rrhythmia na AI related O rders: C omplete Echo (CPT-97620) 9 9214 MOD 30-39min (CPT-31660) Bc Colekhadar HAMMOND [id number],W, O rders: C omplete Echo (CPT-68391) P acemaker Dual Chamber - SLHV (*) ravi Michelle HAMMOND [id number],W, O rders: P acemaker Dual Chamber - [...] MAY BE AN OPTION Orders: E KG (CPT-20493) C omplete Echo (CPT-89883) 9 9214 MOD 30-39min (CPT-40171) Bc Martinez MD [id number],W, M onitor from 06/29/2021 shows minimum HR [...] Chamber - SLHV (*) Bc Martinez MD [id number],C, O rders: C omplete Echo (CPT-66855) Jossie Amrit [id number],B, M onitor from 06/29/2021 shows minimum HR [...] Dual Chamber - SLHV (*) Jossie Marcus [id number],C, O rders: Mansoor quiroga Dual Chamber - [...] FLECAINIDE MAY BE AN OPTION Jacquesebony Marcus [id number],Ras Pires with PCP. Jossie Marcus [id number],W, M onitor from 06/29/2021 shows minimum HR [...] Dual Chamber - SLHV (*) Jossie Marcus [id number],C, Jossie Marcus [id number],C, O rders: Mansoor quiroga Dual Chamber - [...] TIME WITH INR (8847) Dario [facility]hang [facility]: H er updated medication list for [...] have referrred her to CT surgery at [place] [facility] Kayden Pablo Electrophysiology Kayden Pablo Electrophysiology Dario [...] rule out ischemia as culprit for VT. [facility] Elect[facility]iology:Occurs daily R okrené [facility] Electrophysiology: D evice check shows new episodes of VT, will check echo and stress nuclear to evaluate and rule out ischemia. [facility] Electrophysiology:Sx s occur almost daily. Device check shows new episodes of VT, will check echo and stress nuclear to evaluate . [facility] Electrophysiology:Re cent device check showed AT/AF Jasper: 0.0%, % Pacing: RA - 87.0% RV - 12.0%. [facility] Elect[facility]:un known etiology of her dizziness and imbalance, recommended she decrease her Diltiazem to 30 mg BID and see if her sxs improve. [facility] Electrophysiology:Re mote check from 04/30 showed AT/AF Jasper: 0.0% % Pacing: RA - 88.0% RV - 19.0% [facility]: I mproved. [facility] Elect[facility]:Ec ho CONCLUSIONS: 1 . Normal left [...] Electrophysiology:He r recent device check showed AT/AF Jasper: 0.0%, % Pacing: RA - 86.0% RV [...] Electrophysiology: F ollows with PCP. Celeste Key MEALS ON WHEELS DRIVER Electrophysiology Celeste paez MEALS ON WHEELS DRIVER Electrophysiology:wi ll increase HR to 80 on device. will check CT head non-contrast. will check cxr Celeste Key MEALS ON WHEELS DRIVER Electrophysiology:in terrogation no events. will increase rate [...] implantation O rders: G lobal No Charge (CPT-67193) Bc Martinez MD Electrophysiology:sh ould improve if in sinus O rders: C omplete Echo (CPT-95191) Bc Martinez MD Electrophysiology:ar rhythmia na AI related O rders: C omplete Echo (CPT-99352) 9 9214 MOD 30-39min (CPT-73692) Bc Martinez MD Electrophysiology: O rders: C omplete Echo (CPT-21863) P acemaker Dual Chamber - SLHV (*) [...] MAY BE AN OPTION Orders: E KG (CPT-16708) C omplete Echo (CPT-88117) 9 9214 MOD 30-39min (CPT-86462) Bc Martinez MD Electrophysiology: M onitor from [...] MD Electrophysiology: O rders: Pranay cottonlete Echo (CPT-65961) Jossie Marcus Electrophysiology: M onitor from 06/29/2021 [...] [address] Martinez at [facility] completed EKG Bc Martinez MD comp leted EKG Bc Martinez MD comp leted
--- OUTSIDE RECORDS SUMMARY | 2025-01-12 21:44 | XMS_ITS | Encounter Summary ---
Author Organization [facility] Address [address] [place] [address] Phone Care Team Providers Care Tablet Repair Name Role Phone Jason Winters MD Primary Care Provider [phone] Christine Kendall MD Unavailable [phone] Sita Magana MD Unavailable [phone] Nabila King MD Primary Care Provider + [phone] Regulo Pandey MD Unavailable Gigi Méndez MD Unavailable [phone] Bc Martinez MD Unavailable [phone] Bc Martinez MD Unavailable [phone] Martin Correa MD Unavailable [phone] Gildardo Gonzáles Si, MD Unavailable Encounter Details Date Type Department Care Team (Late st Contact Info) Description 06/17/2019 Orders Only [facility] [address] [place] [address] Nabila King MD [address] [place] [address] Social History Tobacco Use Types Packs/Day Years Used Date Smoking Tobacco: Never Smokeless Tobacco: Never Alcohol Use Standard Drinks/Week Comments No 0 (1 standard drink = 0.6 oz pur e alcohol) Comments Unknown Sex and Gender Information Value Date Recorded Sex Assigned at Not on file 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 Gender Identity Not on file Sexual [...] on filedocumented in this encounter Care Teams Tablet Repair Relationship Specialty Start Date End Date Jason Winters MD [address] [place] [address] PCP - General Family Medicine 07/23/18 12/15/20 Nabila King MD [facility] [address] [place] [address] PCP - General Internal Medicine 12/16/20 Christine Kendall MD [address] [place] [address] Surgeon Ophthalmology 12/13/20 Sita Magana MD [facility] [address] [place] [address] Consulting Physician Internal Medicine 12/13/20 Regulo Pandey MD [address] [place] [address] Referring Physician Cardiovascular Disease 12/16/20 Gigi Méndez MD [address] [place] [address] Referring Physician Cardiology 02/18/21 Bc Martinez MD [address] [place] [address] Consulting Physician Cardiology 10/22/21 08/21/23 Bc Martinez MD [address] [place] [address] Referring Physician Cardiology 08/22/23 Martin Correa MD [address] [place] [address] Consulting Physician Cardiothoracic Surgery 08/22/23 [facility] [address] [facility] [place] [address] Consulting Physician Neurology 07/09/24 documented as of this encounter
--- OUTSIDE RECORDS SUMMARY | 2025-01-12 21:44 | XMS_ITS | Encounter Summary ---
Author Organization [facility] Address [address] [place] [address] Phone Care Team Providers Care Coal Dumping Equipment Operator Name Role Phone Jason Winters MD Primary Care Provider [phone] Christine Kendall MD Unavailable [phone] Sita Magana MD Unavailable [phone] Nabila King MD Primary Care Provider + [phone] Regulo Pandey MD Unavailable Gigi Méndez MD Unavailable [phone] Bc Martinez MD Unavailable [phone] Bc Martinez MD Unavailable [phone] Martin Correa MD Unavailable [phone] Gildardo Gonzáles Si, MD Unavailable Encounter Details Date Type Department Care Team (Late st Contact Info) Description 02/09/2018 Orders Only [facility] [address] [place] [address] Nabila King MD [address] [place] [address] Social History Tobacco Use Types Packs/Day Years Used Date Smoking Tobacco: Never Alcohol Use Standard Drinks/Week Comments No 0 (1 standard drink = 0.6 oz pur e alcohol) Comments Unknown Sex and Gender Information Value Date Recorded Sex Assigned at Not on file Legal Sex Female 8:14 PM HAND BANDER Gender Identity Not on file Sexual Orientation [...] on filedocumented in this encounter Care Teams Coal Dumping Equipment Operator Relationship Specialty Start Date End Date Jason Winters MD [address] [place] [address] PCP - General Family Medicine 07/23/18 12/15/20 Nabila King [facility] [address] [place] [address] PCP - General Internal Medicine 12/16/20 Christine Kendall MD [address] [place] [address] Surgeon Ophthalmology 12/13/20 Sita Magana MD [address] [place] [address] Consulting Physician Internal Medicine 12/13/20 Regulo Pandey MD [address] [place] [address] Referring Physician Cardiovascular Disease 12/16/20 Gigi Méndez MD [address] [place] [address] Referring Physician Cardiology 02/18/21 Bc Martinez MD [address] [place] [address] Consulting Physician Cardiology 10/22/21 08/21/23 Bc Martinez MD [address] [place] [address] Referring Physician Cardiology 08/22/23 Martin Correa MD [address] [place] [address] Consulting Physician Cardiothoracic Surgery 08/22/23 NiviaGildardo Si, MD [address] [facility] [address] Consulting Physician Neurology 07/09/24 documented as of this encounter
--- OUTSIDE RECORDS SUMMARY | 2025-01-12 21:44 | XMS_ITS | Encounter Summary ---
Author Organization [facility] Address [address] [place] [address] Phone Care Team Providers Care Oxygraph Operator Name Role Phone Jason Winters MD Primary Care Provider [phone] Christine Kendall MD Unavailable [phone] Sita Magana MD Unavailable [phone] Nabila King MD Primary Care Provider + [phone] Regulo Pandey MD Unavailable Gigi Méndez MD Unavailable [phone] Bc Martinez MD Unavailable [phone] Bc Martinez MD Unavailable [phone] Martin Correa MD Unavailable [phone] Gildardo Gonzáles Si, MD Unavailable Encounter Details Date Type Department Care Team (Late st Contact Info) Description 08/03/2018 Orders Only [facility] [address] [place] [address] Nabila King MD [address] [place] [address] Social History Tobacco Use Types Packs/Day Years Used Date Smoking Tobacco: Never Alcohol Use Standard Drinks/Week Comments No 0 (1 standard drink = 0.6 oz pur e alcohol) Comments Unknown Sex and Gender Information Value Date Recorded Sex Assigned at Not on file 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 Gender Identity Not on file Sexual Orientation [...] on filedocumented in this encounter Care Teams Oxygraph Operator Relationship Specialty Start Date End Date Jason Winters MD [address] [place] [address] PCP - General Family Medicine 07/23/18 12/15/20 Nabila King MD [facility] [address] [place] [address] PCP - General Internal Medicine 12/16/20 Christine Kendall MD [address] [place] [address] Surgeon Ophthalmology 12/13/20 Sita Magana MD [address] [place] [address] Consulting Physician Internal Medicine 12/13/20 Regulo Pandey MD [address] [place] [address] Referring Physician Cardiovascular Disease 12/16/20 Gigi Méndez MD [address] [place] [address] Referring Physician Cardiology 02/18/21 Bc Martinez MD [address] [place] [address] Consulting Physician Cardiology 10/22/21 08/21/23 Bc Martinez MD [address] [place] [address] Referring Physician Cardiology 08/22/23 Martin Correa MD [address] [place] [address] Consulting Physician Cardiothoracic Surgery 08/22/23 NiviaGildardo Si, MD [address] [facility] [place] [address] Consulting Physician Neurology 07/09/24 documented as of this encounter
--- OUTSIDE RECORDS SUMMARY | 2025-01-12 21:44 | XMS_ITS | Continuity of Care Document ---
Author Organization [facility] Address [address] [place] [address] Phone Care Team Providers Care Shop Repairer Name Role Phone Calvin HAMMOND, Logan Unavailable Unavailable Advance Directives Directive Yes / No Effective Date File Name No Information Encounters Encounter Description Practice Location Reason(s) For Visit Diagnoses Date Provider Providers Copied on Encounter [facility], [address], [place], [place], [id number], tel:[phone] SEC Niko Andrade No Information Calvin Ford. [address] [place], [address], [place]. tel: [phone] Family History Family Member Type Diagnosis Age At Onset No Information Payers Payer name Insurance type Covered democrat ID Authoriza tion(s) Medicare RR MB [id number] Social History Type Description Quantity Date Captured [...]
--- OUTSIDE RECORDS SUMMARY | 2025-01-12 21:44 | XMS_ITS | Encounter Summary ---
Author Organization [facility] Address [address] [place] [address] Phone Care Team Providers Care Process Tank Tender Name Role Phone Jason Winters MD Primary Care Provider [phone] Christine Kendall MD Unavailable [phone] Sita Magana MD Unavailable [phone] Nabila King MD Primary Care Provider [phone] Regulo Pandey MD Unavailable Gigi Méndez MD Unavailable [phone] Bc Martinez MD Unavailable [phone] Bc Martinez MD Unavailable [phone] Martin Correa MD Unavailable [phone] Gildardo Gonzáles Si, MD Unavailable Encounter Details Date Type Department Care Team (Late st Contact Info) Description 01/31/2019 Orders Only [facility] [address] [place] [address] Nabila King MD [address] [place] [address] Social History Tobacco Use Types Packs/Day Years Used Date Smoking Tobacco: Never Smokeless Tobacco: Never Alcohol Use Standard Drinks/Week Comments No 0 (1 standard drink = 0.6 oz pur e alcohol) Comments Unknown Sex and Gender Information Value Date Recorded Sex Assigned at Not on file Legal 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 Female 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 Gender Identity Not on file Sexual Orientation [...] on filedocumented in this encounter Care Teams Process Tank Tender Relationship Specialty Start Date End Date Jason Winters MD [address] [place] [address] PCP - General Family Medicine 07/23/18 12/15/20 Nabila King MD [facility] [address] [place] [address] PCP - General Internal Medicine 12/16/20 Christine Kendall MD [address] [place] [address] Surgeon Ophthalmology 12/13/20 Sita Magana MD [facility] [address] [place] [address] Consulting Physician Internal Medicine 12/13/20 Regulo Pandey MD [address] [place] [address] Referring Physician Cardiovascular Disease 12/16/20 Gigi Méndez MD [address] [place] [address] Referring Physician Cardiology 02/18/21 Bc Martinez MD [address] [place] [address] Consulting Physician Cardiology 10/22/21 08/21/23 Bc Martinez MD [address] [place] [address] Referring Physician Cardiology 08/22/23 Martin Correa MD [address] [place] [address] Consulting Physician Cardiothoracic Surgery 08/22/23 [facility] MD [address] [place] [address] Consulting Physician Neurology 07/09/24 documented as of this encounter
--- OUTSIDE RECORDS SUMMARY | 2025-01-12 21:44 | XMS_ITS | Encounter Summary ---
Author Organization [facility] Address [address] [place] [address] Phone Care Team Providers Care Web Specialist Name Role Phone FaizaChristine MD Unavailable +[phone] Sita Magana MD Unavailable [phone] Nabila King MD Primary Care Provider Regulo Pandey MD Unavailable [facility] Unavailable [phone] Bc Martinez MD Unavailable [phone] Bc Martinez MD Unavailable [phone] Martin Correa MD Unavailable [phone] [facility] Un[facility] Encounter Details Date Type Department Care Team (Late st Contact Info) Description 09/22/2022 Orders Only [facility] [address] [place] [address] Scanning, Provider Social History Tobacco [...] on file Legal 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 Female 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 Gender Identity Not on file Sexual [...] on filedocumented in this encounter Care Teams Web Specialist Relationship Specialty Start Date End Date Nabila King MD [address] [place] [address] [address] [place] [address] PCP - General Internal Medicine 12/16/20 Christine Kendall MD Surgeon Ophthalmology 12/13/20 Sita Magana MD [address] [place] [address] [address] [place] [address] Consulting Physician Internal Medicine 12/13/20 Regulo Pandey MD [address] [place] [address] [address] [place] [address] Referring Physician Cardiovascular Disease 12/16/20 Gigi Méndez MD [address] [place] [address] [address] [place] [address] Referring Physician Cardiology 02/18/21 Bc Martinez MD [address] [place] [address] Consulting Physician Cardiology 10/22/21 08/21/23 Bc Martinez MD [address] [place] [address] Referring Physician Cardiology 08/22/23 Martin Correa MD [address] [place] [address] Consulting Physician Cardiothoracic Surgery 08/22/23 [facility] [address] [facility] [place] [address] Consulting Physician Neurology 07/09/24 documented as of this encounter
--- OUTSIDE RECORDS SUMMARY | 2025-01-12 21:44 | XMS_ITS | Encounter Summary ---
Author Organization [facility] Address [address] [place] [address] Phone Care Team Providers Care Clinical Team Lead Name Role Phone Jason Winters MD Primary Care Provider [phone] Christine Kendall MD Unavailable [phone] Sita Magana MD Unavailable [phone] Nabila King MD Primary Care Provider + [phone] Regulo Pandey MD Unavailable Gigi Méndez MD Unavailable [phone] Bc Martinez MD Unavailable [phone] Bc Martinez MD Unavailable [phone] Martin Correa MD Unavailable [phone] Gildardo Gonzáles Si, MD Unavailable Encounter Details Date Type Department Care Team (Late st Contact Info) Description 05/23/2019 Orders Only [facility] [address] [place] [address] Nabila King MD [address] [place] [address] Social History Tobacco Use Types Packs/Day Years Used Date Smoking Tobacco: Never Smokeless Tobacco: Never Alcohol Use Standard Drinks/Week Comments No 0 (1 standard drink = 0.6 oz pur e alcohol) Comments Unknown Sex and Gender Information Value Date Recorded Sex Assigned at Not on file 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 [address] [place] [address] PCP - General Internal Medicine 12/16/20 Christine Kendall MD [address] [place] [address] Surgeon Ophthalmology 12/13/[address] [facility] [address] [place] [address] Consulting Physician Internal Medicine 12/13/20 Regulo Pandey MD [address] [place] [address] Referring Physician Cardiovascular Disease 12/16/20 Gigi Méndez MD [address] [place] [address] Referring Physician Cardiology 02/18/21 Bc Martinez MD [address] [place] [address] Consulting Physician Cardiology 10/22/21 08/21/23 Bc Martinez MD [address] [place] [address] Referring Physician Cardiology 08/22/23 Martin Correa MD [address] [place] [address] Consulting Physician Cardiothoracic Surgery 08/22/23 [facility] [address] [facility] [place] [address] Consulting Physician Neurology 07/09/24 documented as of this encounter
--- OUTSIDE RECORDS SUMMARY | 2025-01-12 21:44 | XMS_ITS | Clinical Summary ---
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 Gender Identity Not on file Sexual Orientation Not on file Plan of Treatment Health Maintenance Due Date Last Done Comments DEXA Bone Density 1935 Hepatitis C Virus (HCV) Screening 1935 TdaP Immunization 1935 Respiratory Syncytial Virus (RSV) Immunization (Adult) (1 - 1-dose 75+ series) 11/12/2011 Pneumococcal Immunization (50+ years) (2 of 2 - PPSV23) 05/08/2017 05/08/2016 Influenza Immunization (#1) 04/21/202404/21, 06/17/2019, 05/03/2018, Additional history exists SARS-COV-2 Immunization ( season) 2024 Zoster Immunization Completed 05/03/2018, 8 Hepatitis B Immunization Aged Out No longer eligible based on patient's age to complete this topic Meningococcal Immunization (ACWY) Aged Out No longer eligible based on patient's age to complete this topic Rotavirus Immunization Aged Out No lo nger eligible based on patient's age to complete this topic
--- OUTSIDE RECORDS SUMMARY | 2025-01-12 21:44 | XMS_ITS | Encounter Summary ---
Author Organization [facility] Healthcare Address [address] [place] [address] Care Team Providers Care Associate Director Regulatory Affairs Name Role Phone Christine Kendall MD Unavailable [phone] Sita Magana MD Unavailable [phone] Nabila King MD Primary Care Provider + [phone] Gigi Méndez MD Unavailable [phone] Bc Martinez MD Unavailable [phone] Martin Correa MD Unavailable [phone] NiviaGildardo bowen Si, MD Unavailable Encounter Details Date Type Department Care Team (Late st Contact Info) Description 11/20/2024 Results Follow-Up [facility] [address] [place] [id number] Nabila King MD [address] [place] [address] Vitamin D 25 hydroxy, Lipid panel, Iron profile w/ IBC, Additional followed-up results: 5 Social History Tobacco Use Types Packs/Day Years Used Date Smoking Tobacco: Never Smokeless Tobacco: Never Alcohol Use Standard Drinks/Week Comments No 0 (1 standard drink = 0.6 oz pur e alcohol) PHQ-2 Answer Date Recorded PHQ-2 Total Score (If total score is 3 or more points, staff should administer the PHQ-9) 0 11/14/2024 Comments Unknown Sex and Gender Information Value Date Recorded Sex Assigned at Not on file 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 Gender Identity Not on file Sexual Orientation Not on file 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 Not on file documented as of this encounter Plan of Treatment Not on file documented as of this encounter Visit Diagnoses Not on filedocumented in this encounter Care Teams Associate Director Regulatory Affairs Relationship Specialty Start Date End Date Nabila King MD [address] [facility] [address] [place] [address] PCP - General Internal Medicine 12/16/20 Christine Kendall MD Surgeon Ophthalmology 12/13/20 Sita Magana MD [address] [facility] [address] [place] [address] Consulting Physician Internal Medicine 12/13/20 Gigi Méndez MD [address] [facility] [address] [place] [address] Referring Physician Cardiology 02/18/21 Bc Martinez MD [address] [place] [address] Referring Physician Cardiology 08/22/23 Martin Correa MD [address] [place] [address] Consulting Physician Cardiothoracic Surgery 08/22/23 Gildardo Gonzáles Si, MD [address] [facility] [address] [place] [address] Consulting Physician Neurology 07/09/24 documented as of this encounter
[2025-01-12 22:00] VITALS: BP 185/85; PULSE 79; RESP 18; TEMP 36.4; O2SAT 99
--- NOTE | 2025-01-12 22:00 | ECG_ITS ---
Test Date: 2025-01-12 22:20:15 Measurements Intervals Elida Rate: 80 P: 205 VT: 229 QRS: -13 QRSD: 85 T: 31 QT: 359 QTc: 415 Interpretive Statements ELECTRONIC ATRIAL PACEMAKER POSSIBLE RIGHT VENTRICULAR CONDUCTION DELAY [RSR (QR) IN V1/V2] SEPTAL MYOCARDIAL INFARCTION , PROBABLY OLD [40+ ms Q WAVE IN V1/V2] No previous ECG available for comparison Electronically Signed On 01-13-2025 14:57:34 CDT by Claude Wilcox M.D.
[2025-01-12 22:10] LABS: Glucose Point of Care 103 mg/dl (65-105)
[2025-01-12 22:28] VITALS: BP 196/96
[2025-01-12 22:31] LABS: Basophils Absolute Auto 0.1 K/mm3 (0.0-0.1); Basophils Percent Auto 0.5 % (0.2-1.2); Eosinophils Absolute Auto 0.1 K/mm3 (0-0.3); Eosinophils Percent Auto 1.4 % (0-4.4); Hemoglobin 14.8 g/dL (12.0-15.0); Immature Granulocyte Absolute 0.03 K/mm3 (0.00-0.031); Immature Granulocyte Percent A 0.3 % (0-0.5); Lymphocytes Absolute Auto 2.19 K/mm3 (0.9-3.2); Lymphocytes Percent Auto 22.9 % (18.3-44.2); Mean Corpuscular HGB Conc 32.2 g/dl (32-36); Mean Corpuscular Hemoglobin 30.3 pg (26-34); Mean Corpuscular Volume 94.1 fl (80-100); Mean Platelet Volume 9.6 fl (7.4-10.4); Monocytes Absolute Auto 0.8 K/mm3 (0.1-0.6); Monocytes Percent Auto 8.1 % (2.6-8.5); Neutrophils Absolute Auto 6.4 K/mm3 (1.3-6.7); Neutrophils Percent Auto 66.8 % (45.5-73.1); Platelet Count Result 263 k/mm3 (150-375); Red Blood Count 4.89 M/mm3 (4.2-5.4); Red Cell Distribution Width 15.5 % (11.5-14.5); White Blood Count 9.6 K/mm3 (4.5-10.0)
[2025-01-12 22:41] LABS: Alanine Aminotransferase 37 U/L (6-35); Albumin Level 4.7 g/dL (3.5-5.1); Alkaline Phosphatase 78 U/L (38-126); Anion Gap 11 mmol/L (4-12); Aspartate Amino Transferase 39 U/L (14-36); Bilirubin,Total 0.9 mg/dL (0.2-1.3); Blood Urea Nitrogen 17 mg/dL (7-17); Calcium 9.6 mg/dL (8.4-10.2); Carbon Dioxide 22 mmol/L (22-30); Chloride 99 mmol/L (98-107); Estimated CRCL calculation 44 ml/min; Estimated Glomerular Filt Rate > 60; Glucose 103 mg/dL (65-110); INR 1.1; Partial Thromboplastin Time 31.4 Seconds (22.3-36.8); Potassium 3.8 mmol/L (3.4-5.0); Prothrombin Time 14.2 Seconds (11.1-14.7); Sodium 132 mmol/L (137-145)
[2025-01-12 22:52] LABS: Troponin I < 0.012 ng/mL (0.000-0.034)
[2025-01-13] VITALS (42 sets, daily range): BP systolic 144–190; BP diastolic 63–92; PULSE 76–87; RESP 12–23; O2SAT 94–100
[2025-01-13 01:56] LABS: Add Urine Microscopic? NO; Appearance Urine Clear (Clear); Bilirubin Urine Negative (Negative); Blood Urine Negative (Negative); Color Urine Yellow (Yellow); Glucose Urine UA Negative (Negative); Ketones Urine Negative (Negative); Leukocyte Esterase Ur Negative LEU/UL (Negative); Nitrate Urine Negative (Negative); Protein Urine Negative (Negative); Specific Grav Ur 1.005 (1.001-1.035); Urobilinogen Urine 0.2 mg/dL (<2.0)
--- NOTE | 2025-01-13 02:13 | PC.NURSE ---
pt took monitoring engineer off - allergic to adhesive and no longer wants to wear them. no current reaction noted.
--- OUTSIDE RECORDS SUMMARY | 2025-01-13 03:35 | XMS_ITS | Encounter Summary ---
Author Organization [facility] Address [address] [place] [address] Phone Care Team Providers Care Turbine Measurements Engineer Name Role Phone Jason Winters MD Primary Care Provider [phone] Jason Winters MD Primary Care Provider [phone] Jason Winters MD Primary Care Provider [phone] Jason Winters MD Primary Care Provider [phone] Jason Winters MD Primary Care Provider [phone] Christine Kendall MD Unavailable [phone] Sita Magana MD Unavailable [phone] Nabila King MD Primary Care Provider + [phone] Regulo Pandey MD Unavailable Gigi Méndez MD Unavailable [phone] Bc Martinez MD Unavailable [phone] Bc Martinez MD Unavailable [phone] Martin Correa MD Unavailable [phone] Gildardo Goználes Si, MD Unavailable Encounter Details Date Type Department Care Team (Late st Contact Info) Description 05/15/2012 Orders Only [facility] [address] [place] [address] Scanning, Provider Social History Tobacco Use Types Packs/Day Years Used Date Smoking Tobacco: Never Assessed Comments Unknown Sex and Gender Information Value Date Recorded Sex Assigned at Not on file 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 Gender Identity Not on file Sexual [...] on filedocumented in this encounter Care Teams Turbine Measurements Engineer Relationship Specialty Start Date End Date Jason Winters MD [address] [place] [address] PCP - General 11/18/16 01/17/18 Jason Winters MD [address] [place] [address] PCP - General 08/05/13 11/17/16 Jason Winters MD [address] [place] [address] PCP - General 05/13/13 08/04/13 Jason Winters MD [address] [place] [address] PCP - General 06/15/12 05/12/13 Jason Winters MD [address] [place] [address] PCP - General Family Medicine 07/23/18 12/15/20 Nabila King MD [address] [facility] [address] [place] [address] PCP - General Internal Medicine 12/16/20 Christine Kendall MD [address] [place] [address] Surgeon Ophthalmology 12/13/20 Sita Magana MD [address] [place] [address] [address] [place] [address] Consulting Physician Internal Medicine 12/13/20 Regulo Pandey MD [address] [place] [address] [place] [address] Referring Physician Cardiovascular Disease 12/16/20 Gigi Méndez MD [address] [place] [address] [address] [place] [address] Referring Physician Cardiology 02/18/21 Bc Martinez MD [address] [place] [address] Consulting Physician Cardiology 10/22/21 08/21/23 Bc Martinez MD [address] [place] [address] Referring Physician Cardiology 08/22/23 Martin Correa MD [address] [place] [address] Consulting Physician Cardiothoracic Surgery 08/22/23 Gildardo Gonzá[place] [address] [place] [address] [address] [place] [address] Consulting Physician Neurology 07/09/24 documented as of this encounter
--- OUTSIDE RECORDS SUMMARY | 2025-01-13 03:35 | XMS_ITS | Encounter Summary ---
Author Organization [facility] Healthcare Address [address] [place] [address] Care Team Providers Care Oracle Database Developer Name Role Phone Christine Kendall MD Unavailable [phone] Sita Magana MD Unavailable [phone] Nabila King MD Primary Care Provider [phone] Regulo Pandey MD Unavailable Gigi Méndez MD Unavailable [phone] Bc Martinez MD Unavailable [phone] Martin Correa MD Unavailable [phone] NiviaGildardo bowen Si, MD Unavailable Encounter Details Date Type Department Care Team (Late st Contact Info) Description 02/09/2024 Orders Only [facility] [address] [place] [address] Scanning, Provider Social History Tobacco Use [...] on file 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 Gender Identity Not on file Sexual [...] filedocumented in this encounter Care Teams Oracle Database Developer Relationship Specialty Start Date End Date Nabila King MD [address] [facility] [address] [place] [address] PCP - General Internal Medicine 12/16/20 Christine Kendall MD Surgeon Ophthalmology 12/13/20 Sita Magana MD [address] [facility] [address] [place] [address] Consulting Physician Internal Medicine 12/13/20 Regulo Pandey MD [address] [place] [address] [address] [place] [address] Referring Physician Cardiovascular Disease 12/16/20 Gigi Méndez MD [address] [facility] [address] [place] [address] Referring Physician Cardiology 02/18/21 Bc Martinez MD [address] [place] [address] Referring Physician Cardiology 08/22/23 Martin Correa MD [address] [place] [address] Consulting Physician Cardiothoracic Surgery 08/22/23 [facility], Gildardo Gomez MD [address] [facility] [address] [place] [address] Consulting Physician Neurology 07/09/24 documented as of this encounter
--- OUTSIDE RECORDS SUMMARY | 2025-01-13 03:35 | XMS_ITS | Encounter Summary ---
Author Organization [facility] Address [address] [place] [address] Phone Care Team Providers Care Carpenter Repair Name Role Phone Jason Winters MD Primary Care Provider [phone] Jason Winters MD Primary Care Provider [phone] Jason Winters MD Primary Care Provider [phone] Christine Kendall MD Unavailable [phone] Sita Magana MD Unavailable [phone] Nabila King MD Primary Care Provider + [phone] Regulo Pandey MD Unavailable Gigi Méndez MD Unavailable [phone] Bc Martinez MD Unavailable [phone] Bc Martinez MD Unavailable [phone] Martin Correa MD Unavailable [phone] Gildardo Gonzáles Si, MD Unavailable Encounter Details Date Type Department Care Team (Late st Contact Info) Description 2016 Orders Only [facility] [address] [place] [address] Nabila King MD [address] [place] [address] Social History Tobacco Use Types Packs/Day Years Used Date Smoking Tobacco: Never Assessed Alcohol Use Standard Drinks/Week Comments No 0 (1 standard drink = 0.6 oz pur e alcohol) Comments Unknown Sex and Gender Information Value Date Recorded Sex Assigned at Not on file 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 Gender Identity Not on file Sexual [...] on filedocumented in this encounter Care Teams Carpenter Repair Relationship Specialty Start Date End Date Jason Winters MD [address] [place] [address] PCP - General 11/18/16 01/17/18 Jason Winters MD [address] [place] [address] PCP - General 08/05/13 11/17/16 Jason Winters MD [address] [place] [address] PCP - General Family Medicine 07/23/18 12/15/20 Nabila King MD [address] [place] [address] [address] PCP - General Internal Medicine 12/16/20 Christine Kendall MD [address] [place] [address] Surgeon Ophthalmology 12/13/20 Stia Magana MD [address] [facility] [address] [place] [address] Consulting Physician Internal Medicine 12/13/20 Regulo Pandey MD [address] [facility] [address] [place] [address] Referring Physician Cardiovascular Disease 12/16/20 Gigi Méndez MD [address] [facility] [address] [place] [address] Referring Physician Cardiology 02/18/21 Bc Martinez MD [address] [place] [address] Consulting Physician Cardiology 10/22/21 08/21/23 Bc Martinez MD [address] [place] [address] Referring Physician Cardiology 08/22/23 Martin Correa MD [address] [place] [address] Consulting Physician Cardiothoracic Surgery 08/22/23 [facility] [address] [facility] [address] [place] [address] Consulting Physician Neurology 07/09/24 documented as of this encounter
--- OUTSIDE RECORDS SUMMARY | 2025-01-13 03:36 | XMS_ITS | CONTINUITY OF CARE DOCUMENT ---
Author Name anatoliy cope Address Unknown Organization [facility] Address [address] [place] [address] [address] [place] [address] Phone [phone] Care Team Providers Care Venetian Blind Cleaner And Repairer Name Role Phone Michelle HAMMOND, Bc Unavailable [phone] STACY MCFADDEN MD Unavailable STACY MCFADDEN MD [...] syndrome active Jossie Marcus Near syncope active Dairo Ahmedzai Ventricular tachycardia active Dario Ahmedza i Chest pain active Dario Ahmedzai Shortness of breath active Dario Ahmedzai Insomnia active Dario Ahmedzai Mitral regurgitation, mild active Bc vidales MD ENCOUNTERS Date Type Provider Location Encounter Diag nosis - 1 In-person encounter Office Visit Bc Martinez MD [facility] 9 - 9 In-person encounter Office Visit Bc Martinez MD [facility] 1 - 4 In-person encounter Office Visit cB Martinez MD [facility] Mitral regurgitation, mild 3 - 3 In-person encounter Office Visit Bc Martinez MD [facility] Shortness of breathInsomnia 3 - 3 In-person encounter Office Visit cB Martinez MD [facility] 0 - 0 In-person encounter Office Visit Bc Martinez MD [facility] Near syncopeVentricular tachycardiaChest pain 0 - 2 In-person encounter Office Visit Bc Martinez MD [facility] 5 - 8 In-person encounter Office Visit Bc Martinez MD [facility] 6 - 0 In-person encounter Office Visit Bc Martinez MD [facility] 3 - 5 In-person encounter Office Visit Bc Martinez MD [facility] 5 - 5 In-person encounter Office Visit Bc Martinez MD [facility] Office 8 - 8 In-person encounter Office Visit Bc Martinez MD [facility] Office 8 - 1 In-person encounter Office Visit Bc Martinez MD [facility] 1 - 1 In-person encounter Office Visit Bc Martinez MD [facility] Aortic insufficiency, moderateTricuspid regurgitation, moderate-severeAtrial fibrillationSinus [...] alexisenenfeldphilippe pulse rate 80 /min Shanna Ushajuancarlos [facility] weight E&M 125 [lb_av] Shanna Ushanfe [facility] height E&M 64 [in_i] Shanna Ushanfjuan [facility] Body Mass Index (Ratio) 20.94 kg/m2 Remy Martinez MD blood pressure, cuff size regular Ke rri Gruenenfelder blood pressure, diastolic 80 mm[Hg] Ke rri Grueneashvinelder blood pressure, systolic 166 mm[Hg] Lisbet ri Americoaarongideonashvineldphilippe oxygen saturation, oximetry 98 % Shanna Noblekrystal respiratory rate E&M 12 /min Shanna G yovana pulse rate 81 /min Shanna Tamiajuan [facility] weight E&M 122 [lb_av] Shanna Nobleneashvine [facility] height E&M 64 [in_i] Shanna Americosaraijuan [facility] Body Mass Index (Ratio) 20.94 kg/m2 Remy Martinez MD blood pressure, cuff size regular [facility] blood pressure, diastolic 85 mm[Hg] [facility] blood pressure, systolic 122 mm[Hg] Maximino [facility] pulse rate 80 /min [facility] oxygen saturation, oximetry 98 % [facility] respiratory rate E&M 15 /min Cristina hunter weight E&M 122 [lb_av] Cristina Winslow height E&M 64 [in_i] [facility] Body Mass Index (Ratio) 21.11 kg/m2 Dario zhang blood pressure, cuff size regular Ke rri Americouenelolis blood pressure, diastolic 80 mm[Hg] Luisito rri Americouenenfsusan blood pressure, systolic 132 mm[Hg] Lisbet Baker oxygen saturation, oximetry 98 % Shanna Samuel respiratory rate E&M 12 /min Shanna yen pulse rate 81 /min Shanna Greer [facility] weight E&M 123 [lb_av] Shanna Percy [facility] height E&M 64 [in_i] Shanna Percy [facility] Body Mass Index (Ratio) 20.94 kg/m2 Dario [...] Martinez MD blood pressure, cuff size regular Ma karl Caruso blood pressure, diastolic 82 mm[Hg] Mi karl [place] blood pressure, systolic 140 mm[Hg] [facility] stephanie [place] oxygen saturation, oximetry 98 % Vanessa Caruso [...] petersonnfelder pulse rate 66 /min Shanna Greer [facility] weight E&M 124 [lb_av] Shanna Greer er height E&M 64 [in_i] Shanna Greer [facility] Body Mass Index (Ratio) 21.28 kg/m2 Taew on blood pressure, diastolic, standing 76 mm [Hg] [place] blood pressure, systolic, standing 192 mm [Hg] Taon Amrit blood pressure, cuff size regular Ke rri Grueneashvinelder blood pressure, diastolic 80 mm[Hg] Ke rri Americoueneashvineld blood pressure, systolic 132 mm[Hg] Lisbet Summers oxygen saturation, oximetry 98 % [facility] E&M 14 /min [facility] pulse rate 80 /min Shanna Greer [facility] weight E&M 124 [lb_av] Shanna Greer er height E&M 64 [in_i] Shanna Greer [facility] ALLERGIES Allergy Name Onset Date Reaction Criticality [...] Not Estab. platelet count 264 X10E3/UL [employer] 624-458 6706/01 /21 red blood cell distribution width 13.1 [...] [employer] 3.5-5.2 sodium, serum 139 mmol/L [employer] 188-713 5263/01 /21 urea nitrogen/creatinine ratio, serum 23 [employer]Logic [...] [employer] 3.5-5.2 sodium, serum 141 mmol/L [employer] 017-595 1602/06 /15 urea nitrogen/creatinine ratio, serum 17 [employer]ic [...] Not Estab. platelet count 320 X10E3/UL [employer] 535-890 6628/06 /15 red blood cell distribution width 12.8 [...] iron binding capacity, unsaturated 243 ug/dL [employer] 447-534 6726/03 /16 iron binding capacity, total 301 ug/dL [employer] 810-485 8295/03 /16 alanine aminotransferase (SGPT), serum 24 1/L [...] [employer] 3.5-5.2 sodium, serum 142 mmol/L [employer] 508-332 8994/03 /16 urea nitrogen/creatinine ratio, serum 20 [employer]ic [...] Not Estab. platelet count 256 X10E3/UL [employer] 690-228 4799/03 /16 red blood cell distribution width 13.0 [...] [employer]Logic 3.5-5.2 sodium, serum 138 mmol/L [employer] 891-251 3190/01 /28 urea nitrogen/creatinine ratio, serum 20 [employer]Logic [...] Not Estab. platelet count 276 X10E3/UL [employer] [phone]/01 /28 red blood cell distribution width 12.8 [...] Marcus levothyroxine 50 mcg tablet active Jossie Marucs SOCIAL HISTORY Date Observation Value Provider smoking status Never smoker Dario Morocho smoking status Never smoker Leroy Bubba aparicio smoking status Never smoker Kayden Seaboard Exercise counseling No - Medical Reason Ras [...] Payer name Policy type / Coverage type [place] [employer] ID [employer] Other [employer] Other AET[employer] MEDICARE [place] PPO Medicare [id number] 100 ADVANCE DIRECTIVES Name Date DISCUSSED - NO DECISION MADE TREATMENT PLAN Date Name Performer [id number],S, Dario Wade i [id number],B,e pisodes occur almost daily but not worse from before Dario Morocho [id number],S, Dario Wade i [id number],S, Dario Wade i [id number],C, u nchanged from echo 09/2022 Dario Morocho [id number],C,on Eliquis Kita Morocho [id number],C,U nlikely to be cardiac as her stress nuclear and echo were overall normal. Dario Morocho [id number],C,unchanged fro m echo today Dario Morocho [id number],S,S mellisa last visit she complains of dizziness, near syncope, vision changes. She also complains of chest pain which radiates to her neck. She has poor sleep quality. She has VT episodes seen on device check, will check echo to assess for EF and stress nuclear to rule out ischemia as culprit for VT. Dario Wadei [id number],S, Dario Wade i [id number],C,Occurs daily Dario Morocho [id number],C, Device check shows new episodes of VT, will check echo and stress nuclear to evaluate and rule out ischemia. Dario Morocho [id number],C,S xs occur almost daily. Device check shows new episodes of VT, will check echo and stress nuclear to evaluate . Dario Morocho [id number],W,R ecent device check showed AT/AF [place]: 0.0%, % Pacing: RA - 87.0% RV - 12.0%. Dario Morocho [id number],C,u nknown etiology of her dizziness and imbalance, recommended she decrease her Diltiazem to 30 mg BID and see if her sxs improve. Dario Morocho [id number],C,R emote check from 04/30 showed AT/AF [place]: 0.0% % Pacing: RA - 88.0% RV - 19.0% Dario Wade [id number],C, I mproved. Dario Morocho [id number],C,E cho CONCLUSIONS: 1 . Normal left ventricular [...] root size. Mild aortic wall calcification. [facility] [id number],C,Improved. Antonieta rené [facility] [id number],C,H er recent device check showed AT/AF [place]: 0.0%, % Pacing: RA - 86.0% RV - 8.0%. 02/2022 Dario beckyjoie [id number],C,No reoccurran ce. Dario ct [id number],C,l ast EKG with NSR. No events on device. T he 'red streaks' around incision to PPM is from the sutures used. Not on AC. Takes only ASA daily. Reinforced to patient to take Eliquis 2.5 mg bid. Diltiazem was decreased to 30 mg tid. Jolene Roland JASON [id number],B,resolved. She rry Luan GOMEZ [id number],S,moderate per last echo Jolene Roland JASON [id number],C, C ontinues to have dizziness. Pacemaker is functioning well. Will schedule echo and carotid duplex and obtain labwork for further assessment. Nichole Dustin [id number],C, C ontinues to have dizziness. Pacemaker is functioning well. Will schedule echo and carotid duplex and obtain labwork for further assessment. Nichole Dustin [id number],S, H ad pacemaker placed. Device is functioning well Nichole Ashleykoko [id number],C, r emains on Eliquis 2.5mg BID. Device check last week showed no afib Nichole Ashleykoko [id number],C, F ollows with PCP. Celestenara Key [place] [id number],S, Celeste Yesi GOMEZ [id number],C,w ill increase HR to [address] on device. will check CT head non-contrast. will check cxr Celeste Key NP [id number],C,i nterrogation no events. will increase rate to 80. will check cxr, CT head without contrast. Celeste Key NP [id number],C,s/p PPM. will check CXR today Celeste Yesi GOMEZ [id number],C,r emains on Eliquis 2.5mg BID. interrogation today,no AFIB. Celeste Yesi GOMEZ [id number],C,r estart eliquis now take 5 mg of eliquis now and continue 2.5 mg PO bid atrting tomorrow Bc Martinez MD [id number],C, Bc salinas MD [id number],B, Bc salinas MD [id number],C, Bc salinas MD [id number],C,p ost pacemaker implantation O rders: G lobal No Charge (CPT-14320) Bc Martinez MD [id number],C,s hould improve if in sinus O rders: C omplete Echo (CPT-69535) Bc Martinez MD [id number],W,a rrhythmia na AI related O rders: C omplete Echo (CPT-69282) 9 9214 MOD 30-39min (CPT-31068) Bc Colekhadar HAMMOND [id number],W, O rders: C omplete Echo (CPT-81341) P acemaker Dual Chamber - SLHV (*) ravi Michelle HAMMOND [id number],W, O rders: P acemaker Dual Chamber - [...] MAY BE AN OPTION Orders: E KG (CPT-78383) C omplete Echo (CPT-42240) 9 9214 MOD 30-39min (CPT-06437) Bc Martinez MD [id number],W, M onitor from 06/29/2021 shows minimum HR [...] Chamber - SLHV (*) Bc Martinez MD [id number],C, O rders: C omplete Echo (CPT-00119) Jossie Amrit [id number],B, M onitor from 06/29/2021 shows minimum HR [...] Dual Chamber - SLHV (*) Jossie Marcus [id number],C, O rders: Mansoor quiroga Dual Chamber - [...] TIKOSYN OR FLECAINIDE MAY BE AN OPTION aJcquesebony Marcus [id number],Ras Pires with PCP. Jossie Marcus [id number],W, M onitor from 06/29/2021 shows minimum HR [...] Dual Chamber - SLHV (*) Jossie Marcus [id number],C, Jossie Marcus [id number],C, O rders: Mansoor quiroga Dual Chamber - [...] P ROTHROMBIN TIME WITH INR (8847) Dario zhagn Electrophysiology: O rders: P ARTIAL THROMBOPLASTIN TIME, ACTIVATED (763) P ROTHROMBIN TIME WITH INR (8847) Dario zhang Electrophysiology: O rders: P ARTIAL THROMBOPLASTIN TIME, ACTIVATED (763) P ROTHROMBIN TIME WITH INR (8847) [facility] H er updated medication list [...] have referrred her to CT surgery at [facility] Kayden Pablo Electrophysiology Kayden Pablo Electrophysiology Dario [...] rule out ischemia as culprit for VT. [facility] Elect[facility] Electrophysiology:Occurs daily R nvrené [facility] Electrophysiology: D evice check shows new episodes of VT, will check echo and stress nuclear to evaluate and rule out ischemia. [facility] Electrophysiology:Sx s occur almost daily. Device check shows new episodes of VT, will check echo and stress nuclear to evaluate . [facility] Electrophysiology:Re cent device check showed AT/AF [place]: 0.0%, % Pacing: RA - 87.0% RV - 12.0%. [facility] Elect[facility]iology:un known etiology of her dizziness and imbalance, recommended she decrease her Diltiazem to 30 mg BID and see if her sxs improve. [facility] Electrophysiology:Re mote check from 04/30 showed AT/AF [place]: 0.0% % Pacing: RA - 88.0% RV - 19.0% [facility] Electrophysiology: I mproved. [facility] Electrophysiology:Ec ho CONCLUSIONS: 1 . Normal left [...] are normal. Moderate aortic valve regurgitation. The ASMM is 2.8 cm2. 4 . Normal aortic root size. Mild aortic wall calcification. Dario Wadeoly Electrophysiology:Improved. Dario Wadeoly Electrophysiology:He r recent device check showed AT/AF [place]: 0.0%, % Pacing: RA - 86.0% RV [...] Electrophysiology: F ollows with PCP. Celeste Key MOBILE DEVICE DEVELOPER Electrophysiology Celeste paez MOBILE DEVICE DEVELOPER Electrophysiology:wi ll increase HR to 80 on device. will check CT head non-contrast. will check cxr Celeste Key MOBILE DEVICE DEVELOPER Electrophysiology:in terrogation no events. will increase rate [...] implantation O rders: G lobal No Charge (CPT-47028) Bc Martinez MD Electrophysiology:sh ould improve if in sinus O rders: C omplete Echo (CPT-40944) Bc Martinez MD Electrophysiology:ar rhythmia na AI related O rders: C omplete Echo (CPT-72619) 9 9214 MOD 30-39min (CPT-17631) Bc Martinez MD Electrophysiology: O rders: C omplete Echo (CPT-10047) P acemaker Dual Chamber - SLHV (*) [...] MAY BE AN OPTION Orders: E KG (CPT-10288) C omplete Echo (CPT-04547) 9 9214 MOD 30-39min (CPT-95465) Bc Martinez MD Electrophysiology: M onitor from [...] MD Electrophysiology: O rders: Pranay cottonlete Echo (CPT-03126) Jossie Marcus Electrophysiology: M onitor from 06/29/2021 [...] [address] Martinez at [facility] completed EKG Bc Martinez MD comp leted EKG Bc Martinez MD comp leted
--- OUTSIDE RECORDS SUMMARY | 2025-01-13 03:36 | XMS_ITS | Encounter Summary ---
Author Organization [facility] Address [address] [place] [address] Phone Care Team Providers Care Coconut Boiler Name Role Phone Jason Winters MD Primary Care Provider [phone] Christine Kendall MD Unavailable [phone] Sita Magana MD Unavailable [phone] Nabila King MD Primary Care Provider + [phone] Regulo Pandey MD Unavailable Gigi Méndez MD Unavailable [phone] Bc Martinez MD Unavailable [phone] Bc Martinez MD Unavailable [phone] Martin Correa MD Unavailable [phone] Gildardo Gonzáles Si, MD Unavailable Encounter Details Date Type Department Care Team (Late st Contact Info) Description 03/12/2019 Orders Only [facility] [address] [place] [address] Nabila King MD [address] [place] [address] Social History Tobacco Use Types Packs/Day Years Used Date Smoking Tobacco: Never Smokeless Tobacco: Never Alcohol Use Standard Drinks/Week Comments No 0 (1 standard drink = 0.6 oz pur e alcohol) Comments Unknown Sex and Gender Information Value Date Recorded Sex Assigned at Not on file 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 Gender Identity Not on file Sexual [...] on filedocumented in this encounter Care Teams Coconut Boiler Relationship Specialty Start Date End Date Jason Winters MD [address] [place] [address] PCP - General Family Medicine 07/23/18 12/15/20 [facility]abil[facility] [address] [place] [address] PCP - General Internal Medicine 12/16/20 Christine Kendall MD [address] [place] [address] Surgeon Ophthalmology 12/13/20 Sita Magana MD [facility] [address] [place] [address] Consulting Physician Internal Medicine 12/13/20 Regulo Pandey MD [address] [place] [address] Referring Physician Cardiovascular Disease 12/16/20 Gigi Méndez MD [address] [place] [address] Referring Physician Cardiology 02/18/21 Bc Martinez MD [address] [place] [address] Consulting Physician Cardiology 10/22/21 08/21/23 Bc Martinez MD [address] [place] [address] Referring Physician Cardiology 08/22/23 Martin Correa MD [address] [place] [address] Consulting Physician Cardiothoracic Surgery 08/22/23 [facility] [address] [place] [address] Consulting Physician Neurology 07/09/24 documented as of this encounter
--- OUTSIDE RECORDS SUMMARY | 2025-01-13 03:36 | XMS_ITS | Encounter Summary ---
Author Organization [facility] Address [address] [place] [address] Care Team Providers Care Finance Consultant Name Role Phone Christine Kendall MD Unavailable [phone] Sita Magana MD Unavailable [phone] Nabila King MD Primary Care Provider + [phone] Gigi Méndez MD Unavailable [phone] Bc Martinez MD Unavailable [phone] Martni Correa MD Unavailable [phone] NiviaGildardo bowen Si, MD Unavailable Encounter Details Date Type Department Care Team (Late st Contact Info) Description 11/20/2024 Results Follow-Up [facility] [address] [place] [id number] Nabila King MD [address] [place] [address] Vitamin D 25 hydroxy, Lipid panel, Iron [...] file 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 Gender Identity Not on file Sexual Orientation Not on file 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 Not on file documented as of this encounter Plan of Treatment Not on file documented as of this encounter Visit Diagnoses Not on filedocumented in this encounter Care Teams Finance Consultant Relationship Specialty Start Date End Date Nabila King MD [address] [place] [address] PCP - General Internal Medicine 12/16/20 Christine Kendall MD Surgeon Ophthalmology 12/13/20 Sita Magana MD [address] [place] [address] Consulting Physician Internal Medicine 12/13/20 Gigi Méndez MD [address] [place] [address] Referring Physician Cardiology 02/18/21 Bc Martinez MD [address] [place] [address] Referring Physician Cardiology 08/22/23 Martin Correa MD [address] [place] [address] Consulting Physician Cardiothoracic Surgery 08/22/23 Gildardo Gonzáles Si, MD [address] [place] [address] Consulting Physician Neurology 07/09/24 documented as of this encounter
--- OUTSIDE RECORDS SUMMARY | 2025-01-13 03:36 | XMS_ITS | Clinical Summary ---
Author Organization [facility] Address [address] [place] [address] Phone Care Team Providers Care Wax Ball Knock Out Worker Name Role Phone FaizaChristine flaherty MD Unavailable [phone] Melinda Magana MD Unavailable [phone] Nabila King MD Primary Care Provider [phone] Gigi Méndez MD Unavailable [phone] Bc Martinez MD Unavailable [phone] Martin Correa MD Unavailable [phone] [facility] Si, MD Unavailable Allergies Active Allergy Reactions Criticality Noted Date Comments Chloramphenicol Other (See comments) Low 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 Worse in the last [...] 06/23/2024 Assessment & Plan (06/23/2024 6:28 PM YIELD IMPROVEMENT ENGINEER): Chronic, uncontrolled. Worse in the last [...] 06/23/2024 Assessment & Plan (06/23/2024 6:40 PM YIELD IMPROVEMENT ENGINEER): Chronic, controlled. Recent facial MRI shows Nonspecific 1.6 x 0.3 x 1.3 cm peripherally enhancing fluid collection along the anterior midline mandibular body suspicious for an abscess in the appropriate clinical setting. No adjacent cortical destruction or bone edema. Mild mucosal thickening of the inferior left maxillary sinus. Patient has been taking daily doxycycline since February and has seen yoker multiple times. CBC from January unremarkable. No [...] 0 Assessment & Plan (06/23/2024 6:33 PM YIELD IMPROVEMENT ENGINEER): Chronic, controlled. Managed by Cardiology. CMP [...] normal reflexes. She recently started turmeric and transitional care manager last week along with stretching [...] stage Assessment & Plan (07/15/2024 11:01 PM YIELD IMPROVEMENT ENGINEER): intraocular pressure (IOP) acceptable off meds [...] DFE Assessment & Plan (09/20/2021 6:46 PM YIELD IMPROVEMENT ENGINEER): intraocular pressure (IOP) acceptable off meds [...] 24-2 Assessment & Plan (07/23/2018 11:42 AM YIELD IMPROVEMENT ENGINEER): intraocular pressure (IOP) excellent- blebs functioning [...] 2014 Assessment & Plan (07/15/2024 11:02 PM YIELD IMPROVEMENT ENGINEER): Now VS with glare symptoms No [...] observe Assessment & Plan (09/20/2021 12:48 PM YIELD IMPROVEMENT ENGINEER): Not VS- observe Assessment & Plan [...] visit Assessment & Plan (07/23/2018 11:42 AM YIELD IMPROVEMENT ENGINEER): Not visually significant Assessment & Plan [...] undergo trial of Doxy 50 mg/day per carbonizer tester Pseudophakia 01/22/2018 04/10/2022 Assessment & Plan (03/18/2022 11:46 AM CDT): Recommend MRx with local veterinary receptionist Mitral valve disease 09/30/2014 022 Overview (11/24/2016): Mitral valve disorder Encounters Date Type Department Care Team Description 12/26/2024 3:08 PM CDT - 12/26/2024 11:59 PM CDT Hospital Encounter [facility] [address] [facility] [address] [place] [address] Doug Elena MD Myalgia, other site Discharge Disposition: Discharge to home or self care 11/28/2024 10:12 AM CDT - 11/28/2024 11:59 PM CDT Hospital Encounter [facility] [address] [facility] [address] [place] [address] Doug Elena MD Myalgia, other site (Primary Dx); Cervical radiculopathy; Facet arthropathy, cervical Discharge Disposition: Discharge to home or self care 11/26/2024 Telephone [facility] [address] [facility] [address] [place] [phone] Nabila King MD Lab Results 11/20/2024 Results Follow-Up [facility] [address] [facility] [address] [place] [phone] Nabila King MD Vitamin D 25 hydroxy, Lipid panel, Iron profile w/ IBC, Additional followed-up results: 5 11/14/2024 11:15 AM CDT [facility] [address] [facility] [address] [place] [phone] Nabila King MD Annual physical exam (Primary [...] B screening test; Immunization counseling 11/14/2024 Telephone [facility] [address] [place] [phone] Nabila King MD 10/22/2024 Telephone [facility] [address] [place] [address] Christine Kendall MD Schedule Surgery from Last [...] adenoma rectum ABLATION OF AFIB FLUTTER 02/18/2021 [facility] CARDIAC PACEMAKER PLACEMENT 10/19/2021 - 11/18/2021 [...] on file Legal Sex Female 8:14 PM YIELD IMPROVEMENT ENGINEER Gender Identity Not on file Sexual [...] S Final Result [facility] * Thyroid Function [place] (11/18/2024 9:10 AM CDT) TSH 1.970 0.450 - 4.500 uIU/mL [facility] - 01 Comment: No apparent thyroid disorder. Additional testing not indicated. In rare instances, Secondary Hypothyroidism as well as Subclinical Hypothyroidism have been reported in some patients with normal TSH values. Blood 11/18/2024 9:10 AM CDT 11/18/2024 Narrative [facility] - 11/19/2024 9:36 AM CDT Performed at: [address] [place] [id number] White Lead Grinder: Darek Farrell PhD, Phone: [phone] Nabila King MD LAB BLOOD ORDERABLES Final Result Performing Organization Address [facility]/ZIP Co de Phone Number [facility] - * Iron profile w/ IBC (11/18/2024 9:10 AM CDT) Pathologist [facility] Iron Bind.Cap.(TIBC) 312 250 - 450 ug/dL [facility] - 01 UIBC 173 118 - 369 ug/dL [facility] - 01 Iron 139 27 - 139 ug/dL [facility] - 01 Iron saturation 45 15 - 55 % [facility] - 01 Blood 11/18/2024 9:10 AM CDT 11/18/2024 Narrative [facility] - 11/19/2024 9:36 AM CDT Performed at: [address] [place] [id number] White Lead Grinder: Darek Farrell PhD, Phone: [phone] us Nabila King MD LAB BLOOD ORDERABLES Final Result Performing Organization Address City/[facility]/ZIP Co de Phone Number [facility] - * (ABNORMAL) CBC with auto differential (11/18/2024 9:10 AM CDT) [facility] WBC 6.4 3.4 - 10.8 x10E3/uL [facility] [...] - 11/19/2024 7:37 AM CDT Performed at: [facility] [id number] White Lead Grinder: Darek Farrell PhD, Phone: [phone] Nabila King MD LAB BLOOD ORDERABLES Final Result [facility] * Hepatitis B core antibody, total Blood (11/18/2024 9:10 AM CDT) Hep B core IgG/IgM Negative Negative [facility] - 01 Blood 11/18/2024 9:10 AM CDT 11/18/2024 Narrative [facility] - 11/19/2024 7:37 AM CDT Performed at: [facility] [id number] White Lead Grinder: Darek Farrell PhD, Phone: [phone] us Nabila King MD LAB MICROBIOLOGY - GENERAL ORDERABLES Final Result Performing Organization Address [facility] de Phone Number [facility] * Vitamin D 25 hydroxy (11/18/2024 9:10 AM CDT) [facility] Vitamin D, 25-Hydroxy 46.7 30.0 - 100.0 ng/mL [facility] Comment: Vitamin D deficiency has been defined by the [place] of Medicine and an Endocrine Society practice guideline as a level of serum 25-OH vitamin D less than 20 ng/mL (1,2). The Endocrine Society went on to further define vitamin D insufficiency as a level between 21 and 29 ng/mL (2). 1. IOM ([place] of Medicine). 2010. Dietary reference intakes for calcium and D. [place]: The National Academies Press. 2. Harvey MF, Monica COHEN, Kenneth RICHARDSON, et al. Evaluation, treatment, and prevention of vitamin D deficiency: an Endocrine Society clinical practice guideline. JCEM. 2010; 96(7):1911-30. Blood 11/18/2024 9:10 AM CDT 11/18/2024 Narrative [facility] - 11/19/2024 7:37 AM CDT Performed at: [address] [id number] White Lead Grinder: Darek Farrell PhD, Phone: [phone] us Nbaila King MD LAB BLOOD ORDERABLES Final Result Performing Organization Address [facility] Co de Phone Number [facility] * Hepatitis B surface antibody (immune status) Blood (11/18/2024 9:10 AM CDT) [facility] HBsAb (immune status) Non Reactive [facility] - 01 Comment: Non Reactive: Not immune to HBV infection. Equivocal: Unable to determine if anti-HBs is present at levels consistent with immunity. Reactive: Anti-HBs concentration detected at greater than 10 mIU/mL. Individual is considered to be immune to infection with HBV. Blood 11/18/2024 9:10 AM CDT 11/18/2024 Narrative [facility] - 11/19/2024 7:37 AM CDT Performed at: [address] [place] [id number] White Lead Grinder: Darek Farrell PhD, Phone: [phone] us Nabila King MD LAB MICROBIOLOGY - GENERAL ORDERABLES Final Result Performing Organization Address [facility] Co de Phone Number [facility] - * Hepatitis B Surface Antigen Blood (11/18/2024 9:10 AM CDT) [facility] HepBsAg Negative Negative [facility] - 01 Blood 11/18/2024 9:10 AM CDT 11/18/2024 Narrative [facility] - 11/19/2024 7:37 AM CDT Performed at: [address] [place] [id number] White Lead Grinder: Darek Farrell PhD, Phone: [phone] us Nabila King MD LAB MICROBIOLOGY - GENERAL ORDERABLES Final Result Performing Organization Address [facility] Co de Phone Number [facility] - * Lipid panel (11/18/2024 9:10 AM CDT) [facility] Cholesterol 152 100 - 199 mg/dL [facility] - 01 Triglycerides 75 0 - 149 mg/dL [facility] - 01 HDL Cholesterol 68 >39 mg/dL [facility] - 01 VLDL 14 5 - 40 mg/dL [facility] - 01 LDL, calculated 70 0 - 99 mg/dL [facility] - 01 Blood 11/18/2024 9:10 AM CDT 11/18/2024 Narrative [facility] - 11/19/2024 9:36 AM CDT Performed at: [address] [id number] White Lead Grinder: Darek Farrell PhD, Phone: [phone] us Nabila King MD LAB BLOOD ORDERABLES Final Result [facility] - 01 * Comprehensive metabolic panel (11/18/2024 9:10 AM CDT) [facility] Glucose 89 70 - 99 mg/dL [facility] [...] - 11/19/2024 7:37 AM CDT Performed at: [address], [place] [id number] White Lead Grinder: Darek Farrell PhD, Phone: [phone] us Nabila King MD LAB BLOOD ORDERABLES Final Result [facility] - 01 * Dexa Axial Skeleton Bone Density 1 or 2 Site (03/30/2023 2:05 PM CDT) Anatomical Region Laterality Modality Body N/A Radiographic Cayla ging Narrative 03/30/2023 3:51 PM CDT Patient Name: Lisa Conn Date of : 1935 Date of scan: 03/30/2023 Bone mineral density was performed on a [employer] Discovery Densitometer. Based on machine cross-calibration and [...] by the International Society of Clinical Densitometry. [id number] Nabila King MD IMG DXA PROCEDURES Final R esult from Last 3 Months or Most Recently Relevant to Health Maintenance Insurance AETNA MEDICARE [facility] MEDICARE Address: [facility] [id number] [place] [address] [facility] MEDICARE AETNA MEDICARE Advance Directives For more information, please contact: [phone] Documents on File Type Date Recorded Patient Pre Owned Sales Consultant Expl anation ADVANCE DIRECTIVE 07/04/2022 POWER OF A TTORNEY-MEDICAL Care Teams Wax Ball Knock Out Worker Relationship Specialty Start Date End Date Nabila King MD [address] [place] [address] PCP - General Internal Medicine 12/16/20 Christine Kendall MD Surgeon Ophthalmology 12/13/20 Melinda Magana MD [address] [place] [address] Consulting Physician Internal Medicine 12/13/20 Gigi Méndez MD [address] [place] [address] Referring Physician Cardiology 02/18/21 Bc Martinez MD [address] [place] [address] Referring Physician Cardiology 08/22/23 Martin Correa MD [address] [place] [address] Consulting Physician Cardiothoracic Surgery 08/22/23 Gildardo Gonzáles Si, MD [address] [place] [address] Consulting Physician Neurology 07/09/24
--- OUTSIDE RECORDS SUMMARY | 2025-01-13 03:36 | XMS_ITS | Referral Summary ---
Author Organization [facility] Address [address] [place] [address] Phone Care Team Providers Care Ruby On Rails Developer Name Role Phone FaizaChristine MD Unavailable [phone] Melinda Magana MD Unavailable [phone] Nabila King MD Primary Care Provider + [phone] Gigi Méndez MD Unavailable [phone] Bc Martinez MD Unavailable [phone] Martin Correa MD Unavailable [phone] Gildardo Gonzáles Si, MD Unavailable Encounters Date Type Department Care Team Description 12/26/2024 3:08 PM CDT - 12/26/2024 11:59 PM CDT Hospital Encounter [facility] [address] [place] [address], [address] [place] [address] Doug Elena MD Myalgia, other site Discharge Disposition: Discharge to home or self care 11/28/2024 10:12 AM CDT - 11/28/2024 11:59 PM CDT Hospital Encounter [facility] [address] [place] [address] [place], [place] [address] Doug Elena MD Myalgia, other site (Primary Dx); Cervical radiculopathy; Facet arthropathy, cervical Discharge Disposition: Discharge to home or self care 11/26/2024 [facility] [address] [place] [address] Nabila King MD Lab Results 11/20/2024 Results Follow-Up [facility] [address] [place] [address] Nabila King MD Vitamin D 25 hydroxy, Lipid panel, Iron profile w/ IBC, Additional followed-up results: 5 11/14/2024 Telephone [facility] [address] [place] [address] Nabila King MD 11/14/2024 11:15 AM CDT Office Visit [facility] [address] [place] [address] Nabila King MD Annual physical exam (Primary [...] B screening test; Immunization counseling 10/22/2024 Telephone [facility] [address] [place] [address] Christine Kendall MD Schedule Surgery from Last 3 Months Allergies Active Allergy Reactions Criticality Noted Date Comments Chloramphenicol Other (See comments) Low Damaged liver and wiped out white blood cells Clarithromycin Hives Medium Gum Kwphxn-Wabyvj-Crur-Alcoho l Hives,Rash Medium 03/18/2022 Pt reports this [...] 06/23/2024 Assessment & Plan (06/23/2024 6:27 PM VIAL GAUGER): Chronic, uncontrolled. Worse in the last 3 [...] 06/23/2024 Assessment & Plan (06/23/2024 6:28 PM VIAL GAUGER): Chronic, uncontrolled. Worse in the last 3 [...] 06/23/2024 Assessment & Plan (06/23/2024 6:40 PM VIAL GAUGER): Chronic, controlled. Recent facial MRI shows Nonspecific 1.6 x 0.3 x 1.3 cm peripherally enhancing fluid collection along the anterior midline mandibular body suspicious for an abscess in the appropriate clinical setting. No adjacent cortical destruction or bone edema. Mild mucosal thickening of the inferior left maxillary sinus. Patient has been taking daily doxycycline since February and has seen medical claims manager multiple times. CBC from January unremarkable. [...] 0 Assessment & Plan (06/23/2024 6:33 PM VIAL GAUGER): Chronic, controlled. Managed by Cardiology. CMP from [...] normal reflexes. She recently started turmeric and physician assistant primary care last week along with stretching exercises. I [...] stage Assessment & Plan (07/15/2024 11:01 PM VIAL GAUGER): intraocular pressure (IOP) acceptable off meds status [...] DFE Assessment & Plan (09/20/2021 6:46 PM VIAL GAUGER): intraocular pressure (IOP) acceptable off meds status [...] 24-2 Assessment & Plan (07/23/2018 11:42 AM VIAL GAUGER): intraocular pressure (IOP) excellent- blebs functioning well [...] 2014 Assessment & Plan (07/15/2024 11:02 PM VIAL GAUGER): Now VS with glare symptoms No noted [...] observe Assessment & Plan (09/20/2021 12:48 PM VIAL GAUGER): Not VS- observe Assessment & Plan (12/14/2020 [...] visit Assessment & Plan (07/23/2018 11:42 AM VIAL GAUGER): Not visually significant Assessment & Plan (01/22/2018 [...] undergo trial of Doxy 50 mg/day per drug and alcohol counsellor Pseudophakia 01/22/2018 04/10/2022 Assessment & Plan (03/18/2022 11:46 AM CDT): Recommend MRx with local audio visual production specialist Mitral valve disease 09/30/2014 022 Overview (11/24/2016): [...] on file Legal Sex Female 8:14 PM VIAL GAUGER Gender Identity Not on file Sexual Orientation [...] S Final Result [facility] * Thyroid Function [place] (11/18/2024 9:10 AM CDT) TSH 1.970 0.450 - 4.500 uIU/mL [facility] - 01 Comment: No apparent thyroid disorder. Additional testing not indicated. In rare instances, Secondary Hypothyroidism as well as Subclinical Hypothyroidism have been reported in some patients with normal TSH values. Blood 11/18/2024 9:10 AM CDT 11/18/2024 Narrative [facility] - 11/19/2024 9:36 AM CDT Performed at: [address] [id number] Assistant Plant Controller: Darek Farrell PhD, Phone: [phone] Nabila King MD LAB BLOOD ORDERABLES Final Result Performing Organization Address [facility] de Phone Number [facility] * Iron profile w/ IBC (11/18/2024 9:10 AM CDT) [facility] Iron Bind.Cap.(TIBC) 312 250 - 450 ug/dL [facility] - 01 UIBC 173 118 - 369 ug/dL [facility] - 01 Iron 139 27 - 139 ug/dL [facility] - 01 Iron saturation 45 15 - 55 % [facility] - 01 Blood 11/18/2024 9:10 AM CDT 11/18/2024 Narrative [facility] - 11/19/2024 9:36 AM CDT Performed at: [address] [id number] Assistant Plant Controller: Darek Farrell PhD, Phone: [phone] Nabila King MD LAB BLOOD ORDERABLES Final Result Performing Organization Address [facility] de Phone Number [facility] * (ABNORMAL) CBC with auto differential (11/18/2024 9:10 AM CDT) [facility] WBC 6.4 3.4 - 10.8 x10E3/uL [...] - 11/19/2024 7:37 AM CDT Performed at: [address] [place] [id number] Assistant Plant Controller: Darek Farrell PhD, Phone: [phone] us Nabila King MD LAB BLOOD ORDERABLES Final Result [facility] * Hepatitis B core antibody, total Blood (11/18/2024 9:10 AM CDT) Hep B core IgG/IgM Negative Negative [facility] - Blood 11/18/2024 9:10 AM CDT 11/18/2024 Narrative [facility] - 11/19/2024 7:37 AM CDT Performed at: [address] [place] [id number] Assistant Plant Controller: Darek Farrell PhD, Phone: [phone] Nabila King MD LAB MICROBIOLOGY - GENERAL ORDERABLES Final Result Performing Organization Address [facility] Co de Phone Number [facility] * Vitamin D 25 hydroxy (11/18/2024 9:10 AM CDT) Vitamin D, 25-Hydroxy 46.7 30.0 - 100.0 ng/mL [facility] - Comment: Vitamin D deficiency has been defined by the [place] of Medicine and an Endocrine Society practice guideline as a level of serum 25-OH vitamin D less than 20 ng/mL (1,2). The Endocrine Society went on to further define vitamin D insufficiency as a level between 21 and 29 ng/mL (2). 1. IOM ([place] of Medicine). 2010. Dietary reference intakes for calcium and D. [place]: The National Academies Press. 2. Harvey MF, Monica [place], Kenneth RICHARDSON, et al. Evaluation, treatment, and prevention of vitamin D deficiency: an Endocrine Society clinical practice guideline. JCEM. 2010; 96(7):1911-30. Blood 11/18/2024 9:10 AM CDT 11/18/2024 Narrative [facility] - 11/19/2024 7:37 AM CDT Performed at: [address] [place] [id number] Assistant Plant Controller: Darek Farrell PhD, Phone: [phone] Nabila King MD LAB BLOOD ORDERABLES Final Result Performing Organization Address [facility] Co de Phone Number [facility] * Hepatitis B surface antibody (immune [...] - 11/19/2024 7:37 AM CDT Performed at: [address] [id number] Assistant Plant Controller: Darek Farrell PhD, Phone: [phone] Nabila King MD LAB MICROBIOLOGY - GENERAL ORDERABLES Final Result Performing Organization Address City/[facility] Co de Phone Number [facility] * Hepatitis B Surface Antigen Blood (11/18/2024 9:10 AM CDT) HepBsAg Negative Negative [facility] - Blood 11/18/2024 9:10 AM CDT 11/18/2024 Narrative [facility] - 11/19/2024 7:37 AM CDT Performed at: [address] [id number] Assistant Plant Controller: Darek Farrell PhD, Phone: [phone] Nabila King MD LAB MICROBIOLOGY - GENERAL ORDERABLES Final Result Performing Organization Address [facility] de Phone Number [facility] * Lipid panel (11/18/2024 9:10 AM [...] - 11/19/2024 9:36 AM CDT Performed at: [address] [id number] Assistant Plant Controller: Darek Farrell PhD, Phone: [phone] Nabila King MD LAB BLOOD ORDERABLES Final Result [facility] * Comprehensive metabolic panel (11/18/2024 9:10 AM CDT) [facility] Glucose 89 70 - 99 mg/dL [...] 11/19/2024 7:37 AM CDT Performed at: - [facility] [id number] Assistant Plant Controller: Darek Farrell PhD, Phone: [phone] Nabila King MD LAB BLOOD ORDERABLES Final Result [facility] * Dexa Axial Skeleton Bone Density 1 or 2 Site (03/30/2023 2:05 PM CDT) Anatomical Region Laterality Modality Body N/A Radiographic Cayla ging Narrative 03/30/2023 3:51 PM CDT Patient Name: Lisa Conn Date of : 1935 Date of scan: 03/30/2023 Bone mineral density was performed on a [employer] Discovery Densitometer. Based on machine cross-calibration and [...] density scan were prepared by Tona Mukherjee (R)([facility]) who is accredited by the International Society of Clinical Densitometry. The overall patient assessment and scan interpretation were performed by Mike Moreno M.D. who is certified by the International Society of Clinical Densitometry. [id number] Nabila King MD IMG DXA PROCEDURES Final R esult from Last 3 Months or Most Recently Relevant to Health Maintenance Insurance AETNA MEDICARE [facility] MEDICARE [facility]IC[facility] Advance Directives For more information, please contact: [phone] Documents on File Type Date Recorded Patient Supervisor Agricultural Education Expl anation ADVANCE DIRECTIVE 07/04/2022 POWER OF A TTORNEY-MEDICAL Care Teams Ruby On Rails Developer Relationship Specialty Start Date End Date Nabila King MD [address] [place] [address] PCP - General Internal Medicine 12/16/20 Christine Kendall MD Surgeon Ophthalmology 12/13/20 Melinda Magana MD [address] [place] [address] Consulting Physician Internal Medicine 12/13/20 Gigi Méndez MD [address] [place] [address] Referring Physician Cardiology 02/18/21 Bc Martinez MD [address] [place] [address] Referring Physician Cardiology 08/22/23 Martin Correa MD [address] [place] [address] Consulting Physician Cardiothoracic Surgery 08/22/23 Gildardo Gonzáles Si, MD [address] [facility] [address] [address] Consulting Physician Neurology 07/09/24
--- OUTSIDE RECORDS SUMMARY | 2025-01-13 03:36 | XMS_ITS | Encounter Summary ---
Author Organization [facility] Address [address] [place] [address] Phone Care Team Providers Care Leather Case Finisher Name Role Phone FaizaChristine MD Unavailable +[phone] Sita Magana MD Unavailable [phone] Nabila King MD Primary Care Provider Regulo Panedy MD Unavailable 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 Gender Identity Not on file [...] on filedocumented in this encounter Care Teams Leather Case Finisher Relationship Specialty Start Date End Date Nabila King MD [address] [place] [address] [address] [place] [address] PCP - General Internal Medicine 12/16/20 Christine Kendall MD Surgeon Ophthalmology 12/13/20 Sita Magana MD [address] [place] [address] [address] [place] [address] Consulting Physician Internal Medicine 12/13/20 Regulo Pandey MD [address] [place] [address] [address] [place] [address] Referring Physician Cardiovascular Disease 12/16/20 Gigi Méndez MD [address] [place] [address] [address] [place] [address] Referring Physician Cardiology 02/18/21 Bc Martinez MD [address] [place] [address] Consulting Physician Cardiology 10/22/21 08/21/23 Bc Martinez MD [address] [place] [address] Referring Physician Cardiology 08/22/23 Martin Correa MD [address] [place] [address] Consulting Physician Cardiothoracic Surgery 08/22/23 [facility] MD [address] [facility] [place] [address] Consulting Physician Neurology 07/09/24 documented as of this encounter
--- OUTSIDE RECORDS SUMMARY | 2025-01-13 03:36 | XMS_ITS | Clinical Summary ---
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
--- OUTSIDE RECORDS SUMMARY | 2025-01-13 03:36 | XMS_ITS | Encounter Summary ---
Author Organization [facility] Address [address] [place] [address] Phone Care Team Providers Care Car Dumper Name Role Phone Jason Winters MD Primary Care Provider [phone] Christine Kendall MD Unavailable +[phone] Sita Magana MD Unavailable [phone] Nabila King MD Primary Care Provider +- [phone] Regulo Pandey MD Unavailable Gigi Méndez MD Unavailable [phone] Bc Martinez MD Unavailable +[phone] Bc Martinez MD Unavailable [phone] Martin Correa MD Unavailable [phone] Gildardo Gonzáles Si, MD Unavailable Encounter Details Date Type Department Care Team (Late st Contact Info) Description 01/31/2019 Orders Only [facility] [address] [place] [address] Nabila King MD [address] [place] [address] Social History Tobacco Use Types Packs/Day Years Used Date Smoking Tobacco: Never Smokeless Tobacco: Never Alcohol Use Standard Drinks/Week Comments No 0 (1 standard drink = 0.6 oz pur e alcohol) Comments Unknown Sex and Gender Information Value Date Recorded Sex Assigned at Not on file 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 Gender Identity Not on file Sexual Orientation [...] on filedocumented in this encounter Care Teams Car Dumper Relationship Specialty Start Date End Date Jason Winters MD [address] [place] [address] PCP - General Family Medicine 07/23/18 12/15/20 Nabila King MD [facility] [address] [place] [address] PCP - General Internal Medicine 12/16/20 Christine Kendall MD [address] [place] [address] Surgeon Ophthalmology 12/13/20 Sita Magana MD [facility] [address] [place] [address] Consulting Physician Internal Medicine 12/13/20 Regulo Pandey MD [address] [place] [address] Referring Physician Cardiovascular Disease 12/16/20 Gigi Méndez MD [address] [place] [address] Referring Physician Cardiology 02/18/21 Bc Martinez MD [address] [place] [address] Consulting Physician Cardiology 10/22/21 08/21/23 Bc Martinez MD [address] [place] [address] Referring Physician Cardiology 08/22/23 Martin Correa MD [address] [place] [address] Consulting Physician Cardiothoracic Surgery 08/22/23 [facility] MD [address] [facility] [place] [address] Consulting Physician Neurology 07/09/24 documented as of this encounter
--- OUTSIDE RECORDS SUMMARY | 2025-01-13 03:36 | XMS_ITS | Encounter Summary ---
Author Organization [facility] Address [address] [place] [address] Phone Care Team Providers Care Assistant Grocery Store Manager Name Role Phone Jason Winters MD Primary Care Provider [phone] Christine Kendall MD Unavailable +[phone] Sita Magana MD Unavailable [phone] Nabila King MD Primary Care Provider + [phone] Regulo Pandey MD Unavailable Gigi Méndez MD Unavailable [phone] Bc Martinez MD Unavailable +[phone] Bc Martinez MD Unavailable [phone] Martin Correa MD Unavailable [phone] Gildardo Gonzáles Si, MD Unavailable Encounter Details Date Type Department Care Team (Late st Contact Info) Description 08/03/2018 Orders Only [facility] [address] [place] [address] Nabila King MD [address] [place] [address] Social History Tobacco Use Types Packs/Day Years Used Date Smoking Tobacco: Never Alcohol Use Standard Drinks/Week Comments No 0 (1 standard drink = 0.6 oz pur e alcohol) Comments Unknown Sex and Gender Information Value Date Recorded Sex Assigned at Not on file 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 Gender Identity Not on file Sexual Orientation [...] filedocumented in this encounter Care Teams Assistant Grocery Store Manager Relationship Specialty Start Date End Date Jason Winters MD [address] [place] [address] PCP - General Family Medicine 07/23/18 12/15/20 Nabila King MD [facility] [address] [place] [address] PCP - General Internal Medicine 12/16/20 Christine Kendall MD [address] [place] [address] Surgeon Ophthalmology 12/13/20 Sita Magana MD [address] [place] [address] Consulting Physician Internal Medicine 12/13/20 Regulo Pandey MD [address] [place] [address] Referring Physician Cardiovascular Disease 12/16/20 Gigi Méndez MD [address] [place] [address] Referring Physician Cardiology 02/18/21 Bc Martinez MD [address] [place] [address] Consulting Physician Cardiology 10/22/21 08/21/23 Bc Martinez MD [address] [place] [address] Referring Physician Cardiology 08/22/23 Martin Correa MD [address] [place] [address] Consulting Physician Cardiothoracic Surgery 08/22/23 NiviaGildardo Si, MD [address] [facility] [place] [address] Consulting Physician Neurology 07/09/24 documented as of this encounter
--- OUTSIDE RECORDS SUMMARY | 2025-01-13 03:36 | XMS_ITS | Encounter Summary ---
Author Organization [facility] Address [address] [place] [address] Phone Care Team Providers Care Pipeline Construction Inspector Name Role Phone Jason Winters MD Primary Care Provider [phone] Christine Kendall MD Unavailable [phone] Sita Magana MD Unavailable [phone] Nabila King MD Primary Care Provider + [phone] Regulo Pandey MD Unavailable Gigi Méndez MD Unavailable +[phone] Bc Martinez MD Unavailable [phone] Bc Martinez MD Unavailable [phone] Martin Correa MD Unavailable [phone] Gildardo Gonzáles Si, MD Unavailable Encounter Details Date Type Department Care Team (Late st Contact Info) Description 09/09/2019 Orders Only [facility] [address] [place] [address] Nabila King MD [address] [place] [address] Social History Tobacco Use Types Packs/Day Years Used Date Smoking Tobacco: Never Smokeless Tobacco: Never Alcohol Use Standard Drinks/Week Comments No 0 (1 standard drink = 0.6 oz pur e alcohol) Comments Unknown Sex and Gender Information Value Date Recorded Sex Assigned at Not on file 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 Gender Identity Not on file [...] on filedocumented in this encounter Care Teams Pipeline Construction Inspector Relationship Specialty Start Date End Date Jason Winters MD [address] [place] [address] PCP - General Family Medicine 07/23/18 12/15/20 Nabila King MD [facility] [address] [place] [address] PCP - General Internal Medicine 12/16/20 Christine Kendall MD [address] [place] [address] Surgeon Ophthalmology 12/13/20 Sita Magana MD [facility] [address] [place] [address] Consulting Physician Internal Medicine 12/13/20 Regulo Pandey MD [address] [place] [address] Referring Physician Cardiovascular Disease 12/16/20 Gigi Méndez MD [address] [place] [address] Referring Physician Cardiology 02/18/21 Bc Martinez MD [address] [place] [address] Consulting Physician Cardiology 10/22/21 08/21/23 Bc Martinez MD [address] [place] [address] Referring Physician Cardiology 08/22/23 Martin Correa MD [address] [place] [address] Consulting Physician Cardiothoracic Surgery 08/22/23 [facility] MD [address] [facility] [address] Consulting Physician Neurology 07/09/24 documented as of this encounter
--- OUTSIDE RECORDS SUMMARY | 2025-01-13 03:36 | XMS_ITS | Encounter Summary ---
Author Organization [facility] Address [address] [place] [address] Phone Care Team Providers Care Cistern Room Working Supervisor Name Role Phone Jason Winters MD Primary Care Provider [phone] Christine Kendall MD Unavailable +[phone] Sita Magana MD Unavailable [phone] Nabila King MD Primary Care Provider + [phone] Regulo Pandey MD Unavailable Gigi Méndez MD Unavailable [phone] Bc Martinez MD Unavailable [phone] Bc Martinez MD Unavailable [phone] Martin Correa MD Unavailable [phone] Gildardo Gonzáles Si, MD Unavailable Encounter Details Date Type Department Care Team (Late st Contact Info) Description 02/09/2018 Orders Only [facility] [address] [place] [address] Nabila King MD [address] [address] Social History Tobacco Use Types Packs/Day Years Used Date Smoking Tobacco: Never Alcohol Use Standard Drinks/Week Comments No 0 (1 standard drink = 0.6 oz pur e alcohol) Comments Unknown Sex and Gender Information Value Date Recorded Sex Assigned at Not on file 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 Gender Identity Not on file Sexual [...] on filedocumented in this encounter Care Teams Cistern Room Working Supervisor Relationship Specialty Start Date End Date Jason Winters MD [address] [place] [address] PCP - General Family Medicine 07/23/18 12/15/20 Nabila King MD [facility] [address] [place] [address] PCP - General Internal Medicine 12/16/20 Christine Kendall MD [address] [place] [address] Surgeon Ophthalmology 12/13/20 Sita Magana MD [address] [place] [address] Consulting Physician Internal Medicine 12/13/20 Regulo Pandey MD [address] [place] [address] Referring Physician Cardiovascular Disease 12/16/20 Gigi Méndez MD [address] [place] [address] Referring Physician Cardiology 02/18/21 Bc Martinez MD [address] [place] [address] Consulting Physician Cardiology 10/22/21 08/21/23 Bc Martinez MD [address] [place] [address] Referring Physician Cardiology 08/22/23 Martin Correa MD [address] [place] [address] Consulting Physician Cardiothoracic Surgery 08/22/23 NiviaGildardo Si, MD [address] [facility] [address] Consulting Physician Neurology 07/09/24 documented as of this encounter
--- OUTSIDE RECORDS SUMMARY | 2025-01-13 03:36 | XMS_ITS | Encounter Summary ---
Author Organization [facility] Address [address] [place] [address] Phone Care Team Providers Care Glass Cleaning Machine Tender Name Role Phone Jason Winters MD Primary Care Provider [phone] Christine Kendall MD Unavailable +[phone] Sita Magana MD Unavailable [phone] Nabila King MD Primary Care Provider + [phone] Regulo Pandey MD Unavailable Gigi Méndez MD Unavailable +[phone] Bc Martinez MD Unavailable [phone] Bc Martinez MD Unavailable [phone] Martin Correa MD Unavailable [phone] Gildardo Gonzáles Si, MD Unavailable Encounter Details Date Type Department Care Team (Late st Contact Info) Description 05/07/2020 Orders Only [facility] [address] [place] [address] Nabila King MD [address] [place] [address] Social History Tobacco Use Types Packs/Day Years Used Date Smoking Tobacco: Never Smokeless Tobacco: Never Alcohol Use Standard Drinks/Week Comments No 0 (1 standard drink = 0.6 oz pur e alcohol) Comments Unknown Sex and Gender Information Value Date Recorded Sex Assigned at Not on file 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 Gender Identity Not on file Sexual [...] filedocumented in this encounter Care Teams Glass Cleaning Machine Tender Relationship Specialty Start Date End Date Jason Winters MD [address] [place] [address] PCP - General Family Medicine 07/23/18 12/15/20 Nabila King MD [facility] [address] [place] [address] PCP - General Internal Medicine 12/16/20 Christine Kendall MD [address] [address] Surgeon Ophthalmology 12/13/20 Sita Magana MD [address] [place] [address] Consulting Physician Internal Medicine 12/13/20 Regulo Pandey MD [address] [place] [address] Referring Physician Cardiovascular Disease 12/16/20 Gigi Méndez MD [address] [place] [address] Referring Physician Cardiology 02/18/21 Bc Martinez MD [address] [place] [address] Consulting Physician Cardiology 10/22/21 08/21/23 Bc Martinez MD [address] [place] [address] Referring Physician Cardiology 08/22/23 Martin Correa MD [address] [place] [address] Consulting Physician Cardiothoracic Surgery 08/22/23 [facility] MD [address] [facility] [place] [address] Consulting Physician Neurology 07/09/24 documented as of this encounter
--- OUTSIDE RECORDS SUMMARY | 2025-01-13 03:36 | XMS_ITS | Encounter Summary ---
Author Organization [facility] Address [address] [place] [address] Phone Care Team Providers Care Production Hardener Name Role Phone Jason Winters MD Primary Care Provider [phone] Christine Kendall MD Unavailable +[phone] Sita Magana MD Unavailable [phone] Nabila King MD Primary Care Provider + [phone] Regulo Pandey MD Unavailable Gigi Méndez MD Unavailable [phone] Bc Martinez MD Unavailable [phone] Bc Martinez MD Unavailable [phone] Martin Correa MD Unavailable [phone] Gildardo Gonzáles Si, MD Unavailable Encounter Details Date Type Department Care Team (Late st Contact Info) Description 06/17/2019 Orders Only [facility] [address] [place] [address] Nabila King MD [address] [place] [address] Social History Tobacco Use Types Packs/Day Years Used Date Smoking Tobacco: Never Smokeless Tobacco: Never Alcohol Use Standard Drinks/Week Comments No 0 (1 standard drink = 0.6 oz pur e alcohol) Comments Unknown Sex and Gender Information Value Date Recorded Sex Assigned at Not on file 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 Gender Identity Not on file Sexual Orientation [...] on filedocumented in this encounter Care Teams Production Hardener Relationship Specialty Start Date End Date Jason Winters MD [address] [place] [address] PCP - General Family Medicine 07/23/18 12/15/20 Nabila King MD [facility] [address] [place] [address] PCP - General Internal Medicine 12/16/20 Christine Kendall MD [address] [place] [address] Surgeon Ophthalmology 12/13/20 iSta Magana MD [facility] [address] [place] [address] Consulting Physician Internal Medicine 12/13/20 Regulo Pandey MD [address] [place] [address] Referring Physician Cardiovascular Disease 12/16/20 Gigi Méndez MD [address] [place] [address] Referring Physician Cardiology 02/18/21 Bc Martinez MD [address] [place] [address] Consulting Physician Cardiology 10/22/21 08/21/23 Bc Martinez MD [address] [place] [address] Referring Physician Cardiology 08/22/23 Martin Correa MD [address] [place] [address] Consulting Physician Cardiothoracic Surgery 08/22/23 [facility] [address] [facility] [place] [address] Consulting Physician Neurology 07/09/24 documented as of this encounter
--- OUTSIDE RECORDS SUMMARY | 2025-01-13 03:36 | XMS_ITS | Encounter Summary ---
Author Organization [facility] Address [address] [place] [address] Phone Care Team Providers Care Continuous Wave Operator Name Role Phone Jason Winters MD Primary Care Provider [phone] Christine Kendall MD Unavailable [phone] Sita Magana MD Unavailable [phone] Nabila King MD Primary Care Provider + [phone] Regulo Pandey MD Unavailable Gigi Méndez MD Unavailable [phone] Bc Martinez MD Unavailable [phone] Bc Martinez MD Unavailable [phone] Martin Correa MD Unavailable [phone] Gildardo Gonzáles Si, MD Unavailable Encounter Details Date Type Department Care Team (Late st Contact Info) Description 05/23/2019 Orders Only [facility] [address] [place] [address] Nabila King MD [address] [place] [address] Social History Tobacco Use Types Packs/Day Years Used Date Smoking Tobacco: Never Smokeless Tobacco: Never Alcohol Use Standard Drinks/Week Comments No 0 (1 standard drink = 0.6 oz pur e alcohol) Comments Unknown Sex and Gender Information Value Date Recorded Sex Assigned at Not on file 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 Gender Identity Not on file Sexual [...] on filedocumented in this encounter Care Teams Continuous Wave Operator Relationship Specialty Start Date End Date Jason Winters MD [address] [place] [address] PCP - General Family Medicine 07/23/18 12/15/20 Nabila King MD [facility] [address] [place] [address] PCP - General Internal Medicine 12/16/20 Christine Kendall MD [address] [place] [address] Surgeon Ophthalmology 12/13/20 Sita Magana MD [facility] [address] [place] [address] Consulting Physician Internal Medicine 12/13/20 Regulo Pandey MD [address] [place] [address] Referring Physician Cardiovascular Disease 12/16/20 Gigi Méndez MD [address] [place] [address] Referring Physician Cardiology 02/18/21 Bc Martinez MD [address] [place] [address] Consulting Physician Cardiology 10/22/21 08/21/23 Bc Martinez MD [address] [place] [address] Referring Physician Cardiology 08/22/23 Martin Crorea MD [address] [place] [address] Consulting Physician Cardiothoracic Surgery 08/22/23 [facility] MD [address] [facility] [place] [address] Consulting Physician Neurology 07/09/24 documented as of this encounter
--- OUTSIDE RECORDS SUMMARY | 2025-01-13 03:36 | XMS_ITS | Continuity of Care Document ---
Author Organization [facility] Address [address] [place] [address] Phone Care Team Providers Care Combatant Diver Officer Name Role Phone Calvin HAMMOND, Logan Unavailable Unavailable Advance Directives Directive Yes / No Effective Date File Name No Information Encounters Encounter Description Practice Location Reason(s) For Visit Diagnoses Date Provider Providers Copied on Encounter [facility], [address], [place], [place], [id number], tel:[phone] SEC Niko Andrade No Information Calvin Ford. [address] [place], [address], [place]. tel: [phone] Family History Family Member Type Diagnosis Age At Onset No Information Payers Payer name Insurance type Covered republican ID Authoriza tion(s) Medicare RR MB [id number] Social History Type Description Quantity Date Captured [...]
--- NOTE | 2025-01-13 03:40 | ED_ITS ---
HPI - Neuro Symptoms/Deficit General Chief Complaint: Weakness Stated Complaint: stroke symptoms Time Seen by Provider: 01/13/25 03:26 Source: patient and family (Daughter) Mode of arrival: ambulatory Limitations: no limitations History of Present Illness HPI Narrative: Patient presents with concern for neurologic symptoms, in particular reported ataxia. She at dizziness. She denies any spinning sensation but rather feeling a sense of disequilibrium. She repeatedly denies any change in sensorium. She a popping fluid in ears left greater than right a particular episode in July 2024 when this occurred and she lost hearing in the left ear transiently. Symptoms currently associated with nausea. No lightheadedness. Walking makes her symptoms worse especially head position changes. She has previously seen ear nose and throat and has an upcoming appointment as well. No history of hypertension or diabetes mellitus. She has been referred to pain clinic. She was placed on diltiazem the calcium channel praveen 30 mg b.i.d. for non hypertensive reasons. Cardiology appointment January. Symptoms have been weeks/months but She feels that her episodes are becoming progressive affecting gait, stating she walks like she is drunk. Denies a sense lightheadedness. She has a sense of fullness as a headache and particular the headache is bilaterally located behind her eyes. No slurred speech. She sustained a C5 fracture at one point and ever since will have some left arm paresthesias and occasionally left leg symptoms intermittently. No confusion. Saw NSGN Dr Jean's IZZY/RN. She states that her hearing has been diminished but that this changes dated a. 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 She has a pacemaker and is on Eliquis. Saw her primary care physician [facility] and has follow-up appointment with the nurse practitioner in 6 months. She has been experiencing a back ache and fatigue. Previously saw a neurologist through the [facility]. Knows that 1 of the only pacemaker MRI compatible machines in the area is at [facility]. Related Data Home Medications ?Medication ?Instructions ?Recorded ?Confirmed ?Last Taken ?Type levothyroxine 50 mcg tablet 50 mcg PO DAILY 09/23/20 10/21/24 Unknown History (Synthroid) xnysoneihmyo-Jb-rieh-minerals tablet PO 09/23/20 10/21/24 Unknown History (Multiple Vitamin, Womens tablet) apixaban 2.5 mg tablet (Eliquis) mg PO 10/21/24 10/21/24 Unknown History diltiazem HCl 30 mg tablet mg PO 10/21/24 10/21/24 Unknown History fluoride (sodium) 1.1 % dental dental 10/21/24 10/21/24 Unknown History paste (PreviDent 5000 Dry Mouth) rosuvastatin 10 mg tablet mg PO 10/21/24 10/21/24 Unknown History Allergies Allergy/AdvReac Type Severity Reaction Status Date / Time sucralfate Allergy Mild HIVES Verified 01/15/25 10:07 sulfamethoxazole Allergy Mild Hives / Verified 01/15/25 10:07 Red Face trimethoprim Allergy Mild Hives / Verified 01/15/25 10:07 Red Face clarithromycin Allergy Unknown Hives Verified 01/15/25 10:07 metronidazole Allergy Unknown Rash Verified 01/15/25 10:07 Sulfa (Sulfonamide Allergy Unknown Hives Verified 01/15/25 10:07 Antibiotics) adhesive tape AdvReac Mild Hives Verified 01/15/25 10:07 PMFSH Past Medical History Medical History (Updated 01/15/25 @ 10:39 by Chiqui Rincon MD) Tinnitus Chronic anticoagulation Elliquis Pacemaker Glaucoma, right eye CAD (coronary artery disease) Surgical History Surgical History H/O eye surgery Family History Family History Mother Family history of thyroid disease Family history of osteoporosis Family history of cataracts Family history of arthritis Carcinoma of colon Father Family history of arthritis Family history of heart disease in male family member before age 55 Family history of hearing loss Social History Social History Smoking status: Never smoker Alcohol intake: never Substance use: never Occupation/Education: 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 HEAD: Normocephalic, atraumatic. EYES: Non injected, non icteric. Extraocular movements intact horizontally and vertically without nystagmus. Visual peña intact. ENT: Nares clear, no rhinorrhea or epistaxis. Gross auditory acuity intact. Mild scant effusion in left ear behind tympanic membrane. Otherwise right tympanic membrane normal. No bulging, erythema, or vesicles bilaterally. NECK: Supple. No meningismus. CHEST: Speaking in full sentences. No respiratory distress. HEART: Regular rate and rhythm. . ABDOMEN: Soft, nondistended. No rigidity or guarding. Not peritoneal EXTREMITIES: Normal range of motion. No lower extremity edema. SKIN: Warm, dry, no rash. NEURO: No focal deficits. Alert and oriented. Answering questions. Following commands. Normal speech without aphasia or dysarthria. No ataxia on rmryvh-raoc-nxxglo. No facial asymmetry. Sensation intact throughout. No extinction PSYCH: Normal mood and affect. Course Vital Signs Vital signs: Vital Signs Temperature 97.6 F 01/12/25 22:00 Pulse Rate 79 01/12/25 22:00 Respiratory Rate 18 01/12/25 22:00 Blood Pressure 185/85 H 01/12/25 22:00 Pulse Oximetry 99 01/12/25 22:00 Oxygen Delivery Room Air 01/12/25 22:00 Temperature 97.6 F 01/12/25 22:00 Pulse Rate 80 01/13/25 08:30 Respiratory Rate 17 01/13/25 08:30 Blood Pressure 159/75 H 01/13/25 08:30 Pulse Oximetry 99 01/13/25 08:30 Oxygen Delivery Room Air 01/12/25 22:00 MDM - Neuro Symptoms/Deficit MDM Narrative Medical decision making narrative: Patient presents with concern for neurologic symptoms. Patient particularly notes that she is concerned ataxia however is not ataxic on crbghz-ockw-fdblje assessment exam. Rather, she describes dizziness related to your problems that causes disequilibrium but without any vertiginous symptoms or lightheadedness. In the emergency department she is afebrile vital signs notable for hypertension. Not a stroke activation as symptoms have been present for weeks/months, progressive worsening per patient. Nevertheless, NIHSS was evaluated per below. The patient is protecting their airway which is patent. An IV is established by nursing staff blood work sent to the lab for evaluation. An EKG will be performed. NIHSS Level Of consciousness: 0 Month and age:0 Follows commands:0 Gaze palsy:0 Visual peña:0 Facial palsy:0 Left arm motor drift:0 Right arm motor drift:0 Left leg motor drift:0 Right leg motor drift:0 Limb ataxia:0 Sensation:0 Aphasia:0 Dysarthria:0 Extinction:0 Total: 0 DIFFERENTIAL DIAGNOSES Considered Stroke (CVA / TIA) mimics including but not limited to: migraines, hypoglycemia, seizures/Santosh's paralysis, sepsis/severe infections in patients with prior strokes (e.g. recrudescence), syncope, brain masses, transient global amnesia, panic attack/hyperventilation, and conversion disorders. Patient's symptoms are not vertiginous, but also considered such differential diagnoses. Central causes: infection ( encephalitis, meningitis, cerebritis); vertebrobasilar arterial insufficiency, subclavian steal syndrome, cerebellar or brainstem hemorrhage or infarction, vertebrobasilar migraine, trauma ( temporal bone fracture, post concussive syndrome); tumor (brainstem or cerebellum); MS; temporal lobe epilepsy Peripheral causes: Foreign body, cerumen impaction, acute otitis media, labyrinthitis, benign paroxysmal positional vertigo, Meniere's disease, vestibular neuronitis, perilymphatic fistula, trauma, motion sickness, acoustic neuroma, ototoxic medications Patient has comorbidities that complexity management. Namely, she has a pacemaker and her symptoms wax and wane with some being subjective without appreciable findings on physical exam. Meclizine ordered as first line agent. Patient declines this medication. Patient ambulates without any difficulty or atalgic gait per staff. She is hypertensive and so while awaiting CTA result, 1 time dose of labetalol as ordered to see if there is improvement both and blood pressure as well as her symptoms. Patient declined, notes that she can not take beta blockers after being on this as eyedrops and it not going well. Patient will be unable to obtain an MRI here as they are not pacemaker compatible. Shared decision making with patent. For she has an upcoming appointment with ear nose and throat this week and will also work with her primary care physician possible referral/outpatient order for at a location that is pacemaker compatible. Already has a neurologist through [facility]. Stable for dischage. Lab Data Attestation: I reviewed the patient's lab results. 01/12/25 22:25 01/12/25 22:25 Labs: Lab Results 01/12/25 01/12/25 01/13/25 Range/Units 22:06 22:25 01:49 WBC 9.6 (4.5-10.0) K/mm3 RBC 4.89 (4.2-5.4) M/mm3 Hgb 14.8 (12.0-15.0) g/dL Hct 46.0 (37.0-47.0) % MCV 94.1 (80-100) fl MCH 30.3 (26-34) pg MCHC 32.2 (32-36) g/dl RDW 15.5 H (11.5-14.5) % Plt Count 263 (150-375) k/mm3 MPV 9.6 (7.4-10.4) fl Immature Gran % (Auto) 0.3 (0-0.5) % Neut % (Auto) 66.8 (45.5-73.1) % Lymph % (Auto) 22.9 (18.3-44.2) % [place] % (Auto) 8.1 (2.6-8.5) % Eos % (Auto) 1.4 (0-4.4) % Baso % (Auto) 0.5 (0.2-1.2) % Lymph # (Auto) 2.19 (0.9-3.2) K/mm3 [place] # (Auto) 0.8 H (0.1-0.6) K/mm3 Eos # (Auto) 0.1 (0-0.3) K/mm3 Baso # (Auto) 0.1 (0.0-0.1) K/mm3 Abs Immat Gran (auto) 0.03 (0.00-0.031) K/mm3 Absolute Neuts (auto) 6.4 (1.3-6.7) K/mm3 Absolute Nucleated RBC 0.000 (0.0-0.012) K/mm3 Nucleated RBC % 0.0 (0.0-0.2) % PT 14.2 (11.1-14.7) Seconds INR 1.1 APTT 31.4 (22.3-36.8) Seconds Sodium 132 L (137-145) mmol/L Potassium 3.8 (3.4-5.0) mmol/L Chloride 99 (98-107) mmol/L Carbon Dioxide 22 (22-30) mmol/L Anion Gap 11 (4-12) mmol/L BUN 17 (7-17) mg/dL Creatinine 0.66 L (0.7-1.0) mg/dL Estim Creat Clear Calc 44 ml/min Estimated GFR > 60 (59 - ) Glucose 103 (65-110) mg/dL POC Capillary Glucose 103 (65-105) mg/dl Calcium 9.6 (8.4-10.2) mg/dL Total Bilirubin 0.9 (0.2-1.3) mg/dL AST 39 H (14-36) U/L ALT 37 H (6-35) U/L Alkaline Phosphatase 78 (38-126) U/L Troponin I < 0.012 (0.000-0.034) ng/mL Total Protein 8.0 (6.3-8.2) g/dL Albumin 4.7 (3.5-5.1) g/dL Urine Color Yellow (Yellow) Urine Appearance Clear (Clear) Urine pH 7.0 (5.0-9.0) Ur Specific [place] 1.005 (1.001-1.035) Urine Protein Negative (Negative) mg/dL Urine Glucose (UA) Negative (Negative) mg/dL Urine Ketones Negative (Negative) mg/dL Ur Blood (Man) Negative (Negative) Urine Nitrate Negative (Negative) Urine Bilirubin Negative (Negative) Urine Urobilinogen 0.2 (<2.0) mg/dL Leukocyte Esterase Rfl Negative (Negative) ANGELIQUE/UL Imaging Data Attestation: I personally reviewed and interpreted this imaging study as follows: My impression: Chest x-ray performed with the patient wearing underwire bra a. Pacemaker in place. Otherwise no acute intrathoracic process. Radiologist's impression: CT Head NOn COn Stat Rad: No acute hemorrhage hydrocephalus or herniation. ECG Data EKG #1: Attestation: I personally reviewed and interpreted this ECG as follows: ECG completion date: 01/12/25 ECG completion time: 22:20 Interpretation: Electronic atrial pacemaker at a rate of [address] interval 229. QRS 85. QT/QTC 359/395. T-wave inversion in 3 but otherwise upright in contiguous inferior leads 2 and AVF. No other T-wave inversions. Discharge Plan Discharge Clinical Impression: Dizziness, Dysequilibrium, Ear fullness Patient Disposition: Home Condition: Stable Instructions: Antibiotic Form, Dizziness (ED) Additional Instructions: As we discussed, your workup was reassuring without clear cause of your symptoms. It is important that you keep your upcoming ENT appointment and her upcoming cardiology appointment. He keep a log of your symptoms and blood pressures in anticipation of your cardiology appointment. See if you can get a order for outpatient pacemaker compatible MRI. Return to the emergency department with any new or worsening or unmanaged symptoms. Continue taking your medications as prescribed Patient Language: Slovak Prescriptions: No Action diltiazem HCl 30 mg tablet PO rosuvastatin 10 mg tablet PO Eliquis 2.5 mg tablet PO fluoride (sodium) [PreviDent 5000 Dry Mouth] 1.1 % paste dental azelastine 137 mcg (0.1 %) spray,non-aerosol 137 mcg intranasal . q.h.s. Qty: 30 2RF Rx Instructions: administer into each nostril 1 or 2 sprays each side of nose q.h.s. p.r.n. sneezing levothyroxine [Synthroid] 50 mcg tablet 50 mcg PO DAILY Multiple Vitamin, Womens Tablet PO Follow-up/Referrals: Christine,MD Nabila [Primary Care Provider] - Time of Disposition: 08:13
--- NOTE | 2025-01-13 06:56 | PC.NURSE ---
this rn attempted to give labetalol medication dose ordered. Pt requesting to speak to provider. edp gabriella notified.
--- NOTE | 2025-01-13 07:26 | PC.NURSE ---
report to daquan rodriguez
== END 2025-01-13 08:32 | disposition home or self-care (01) ==
PROVIDERS: Registered Nurse; Emergency Provider Student in an Organized Health Care Education/Training Program; PCP Internal Medicine Geriatric Medicine
DX: R42 Dizziness and giddiness (principal); H93.92 Unspecified disorder of left ear; Z95.0 Presence of cardiac pacemaker; Z79.01 Long term (current) use of anticoagulants; I25.10 Atherosclerotic heart disease of native coronary artery without angina pectoris
CPT/HCPCS: 36415; 70450; 70496; 70498; 71045; 80053; 81003; 82948; 84484; 85025; 85610; 85730; 93005; 99284; Q9967

== ENCOUNTER 2025-01-27 09:54 | Outpatient (CLI) | payer MEDICARE, SELFPAY ==
--- NOTE | ~2025-01-27 | CT_ITS ---
CT IAC/mastoids BI wo con Ordering provider: Mani Saini M.D. Technique: CT temporal bones was performed by obtaining thin slice axial images. Coronal and sagittal reformatted images were also obtained. No contrast was administered. Reason for exam: . H83.8X9 - Other specified diseases of inner ear, unspecif... . Comparison: None. Findings: RIGHT TEMPORAL BONE: The mastoid air cells are normal and well aerated. The external auditory canal is normal and well aerated. The tympanic membrane as visualized is intact and normal. The middle ear (including the epitympanum, mesotympanum, and hypotympanum) is normal and well aerated. The tegmen t ympani is intact. The scutum is normal. The auditory ossicles are normal. The cochlea, vestibule, v estibular and cochlear aqueduct are normal. The semicircular canals are normal. The facial nerve ca nal is normal. The internal auditory canal is normal. The carotid canal and jugular foramen are no rmal. The temporomandibular joint is normal. LEFT TEMPORAL BONE: The mastoid air cells are normal and well aerated. The external auditory canal is normal and well aerated. The tympanic membrane as visualized is intact and normal. The middle ear ( including the epitympanum, mesotympanum and hypotympanum) is normal and well aerated. The tegmen tymp ani is intact. The scutum is normal. The auditory ossicles are normal. The cochlea, vestibule, ves tibular and cochlear aqueduct are normal. The semicircular canals are normal. The facial nerve zoe l is normal. The internal auditory canal is normal. The carotid canal and jugular foramen are norm al. The temporomandibular joint is normal. Left maxillary sinus disease. Right nasal septal deviation. Left sphenoid sinus disease. Otherwise, T he visualized brain parenchyma, paranasal sinuses, and superficial soft tissues are normal for patien t's age. IMPRESSION: No definite abnormality seen in both temporal bones. Left maxillary and sphenoid sinus. Right nasal septal deviation. Reviewed, dictated and finalized at location A.
--- OUTSIDE RECORDS SUMMARY | 2025-01-27 10:54 | XMS_ITS | Encounter Summary ---
Author Organization [facility] Healthcare Address [address] [place] [address] Care Team Providers Care Metal Trades Instructor Name Role Phone Christine Kendall MD Unavailable [phone] Sita Magana MD Unavailable [phone] Nabila King MD Primary Care Provider [phone] Regulo Pandey MD Unavailable Gigi Méndez MD Unavailable [phone] Bc Martinez MD Unavailable [phone] Martin Correa MD Unavailable [phone] NiviaGildardo bowen Si, MD Unavailable Encounter Details Date Type Department Care Team (Late st Contact Info) Description 02/09/[address] 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 Gender Identity Not on file Sexual Orientation [...] on filedocumented in this encounter Care Teams Metal Trades Instructor Relationship Specialty Start Date End Date Nabila King MD [address] [place] [address] PCP - General Internal Medicine 12/16/20 Christine Kendall MD Surgeon Ophthalmology 12/13/20 Sita Magana MD [address] [place] [address] Consulting Physician Internal Medicine 12/13/20 Regulo Pandey MD [address] [place] [address] [address] [place] [address] Referring Physician Cardiovascular Disease 12/16/20 Gigi Méndez MD [address] [place] [address] Referring Physician Cardiology 02/18/21 Bc Martinez MD [address] [place] [address] Referring Physician Cardiology 08/22/23 Martin Correa MD [address] [place] [address] Consulting Physician Cardiothoracic Surgery 08/22/23 [facility], Gildardo Gomez MD [address] [facility] [address] [place] [address] Consulting Physician Neurology 07/09/24 documented as of this encounter
--- OUTSIDE RECORDS SUMMARY | 2025-01-27 10:54 | XMS_ITS | Clinical Summary ---
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
--- OUTSIDE RECORDS SUMMARY | 2025-01-27 10:54 | XMS_ITS | Encounter Summary ---
Author Organization [facility] Address [address] [place] [address] Phone Care Team Providers Care Business Continuity Consultant Name Role Phone Jason Winters MD Primary Care Provider [phone] Christine Kendall MD Unavailable [phone] Sita Magana MD Unavailable [phone] Nabila King MD Primary Care Provider [phone] Regulo Pandey MD Unavailable Gigi Méndez MD Unavailable [phone] Bc Martinez MD Unavailable [phone] Bc Martinez MD Unavailable [phone] Martin Correa MD Unavailable [phone] Gildardo Gonzáles Si, MD Unavailable Encounter Details Date Type Department Care Team (Late st Contact Info) Description 09/09/2019 Orders Only [facility] [address] [place] [address] Nabila King MD [address] [place] [address] Social History Tobacco Use Types Packs/Day Years Used Date Smoking Tobacco: Never Smokeless Tobacco: Never Alcohol Use Standard Drinks/Week Comments No 0 (1 standard drink = 0.6 oz pur e alcohol) Comments Unknown Sex and Gender Information Value Date Recorded Sex Assigned at Not on file 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 Gender Identity Not on file Sexual Orientation [...] on filedocumented in this encounter Care Teams Business Continuity Consultant Relationship Specialty Start Date End Date Jason Winters MD [address] [place] [address] PCP - General Family Medicine 07/23/18 12/15/20 [facility]abil[facility] [address] [place] [address] PCP - General Internal Medicine 12/16/20 Christine Kendall MD [address] [place] [address] Surgeon Ophthalmology 12/13/20 Sita Magana MD [facility] [address] [place] [address] Consulting Physician Internal Medicine 12/13/20 Regulo Pandey MD [address] [place] [address] Referring Physician Cardiovascular Disease 12/16/20 Gigi Méndez MD [address] [place] [address] Referring Physician Cardiology 02/18/21 Bc Martinez MD [address] [place] [address] Consulting Physician Cardiology 10/22/21 08/21/23 Bc Martinez MD [address] [place] [address] Referring Physician Cardiology 08/22/23 Martin Correa MD [address] [place] [address] Consulting Physician Cardiothoracic Surgery 08/22[facility]23 [facility] [address] [facility] [facility] [place] [address] Consulting Physician Neurology 07/09/24 documented as of this encounter
--- OUTSIDE RECORDS SUMMARY | 2025-01-27 10:54 | XMS_ITS | CONTINUITY OF CARE DOCUMENT ---
Author Name anatoliy cope Address Unknown Organization [facility] Address [address] [place] [address] [address] [place] [address] Phone [phone] Care Team Providers Care Occupational Medicine Physician Name Role Phone Michelle HAMMOND, Bc Unavailable STACY MCFADDEN MD Unavailable STACY MCFADDEN MD [...] In-person encounter Office Visit Bc Martinez MD [facility] 9 - 9 In-person encounter Office Visit Bc Martinez MD [facility] 1 - 4 In-person encounter Office Visit Bc Martinez MD [facility] Mitral regurgitation, mild 3 - 3 In-person encounter Office Visit Bc Martinez MD [facility] Shortness of breathInsomnia 3 - 3 In-person encounter Office Visit Bc Martinez MD [facility] 0 - 0 In-person encounter Office Visit Bc Martinez MD [facility] Near syncopeVentricular tachycardiaChest pain 0 - 2 In-person encounter Office Visit Bc Martinez MD [facility] 5 - 8 In-person encounter Office Visit Bc Martinez MD [facility] 6 - 0 In-person encounter Office Visit Bc Martinez MD [facility] 3 - 5 In-person encounter Office Visit Bc Martinez MD [facility] 5 - 5 In-person encounter Office Visit Bc Martinez MD [facility] Office 8 - 8 In-person encounter Office Visit Bc Martinez MD [facility] Office 8 - 1 In-person encounter Office Visit Bc Martinez MD [facility] 1 - 1 In-person encounter Office Visit Bc Martinez MD [facility] Aortic insufficiency, moderateTricuspid regurgitation, moderate-severeAtrial fibrillationSinus bradycardiaHashimoto's thyroiditisGlaucomaPulmonary hypertensionDizzinessFatigueSick sinus syndrome VITAL SIGNS Date Observation Value Provider Body Mass Index (Ratio) 21.45 kg/m2 Remy Martinez MD blood pressure, cuff size regular Ke rri Gruenenfelder blood pressure, diastolic 80 mm[Hg] Ke rri Gruenenfelder blood pressure, systolic 146 mm[Hg] Lisbet ri Americouenehselli oxygen saturation, oximetry 96 % Shanna Graaronkrystal respiratory rate E&M 12 /min Shanna G alexisenenfeldphilippe pulse rate 80 /min Shanna Ushajuancarlos [facility] weight E&M 125 [lb_av] Shanna Ushanfe [facility] height E&M 64 [in_i] Shanna Ushanfjuan [facility] Body Mass Index (Ratio) 20.94 kg/m2 Remy Martinez MD blood pressure, cuff size regular Ke rri Gruenenfelder blood pressure, diastolic 80 mm[Hg] Ke rri Grueneashvinelder blood pressure, systolic 166 mm[Hg] Lisbet ri Americoaarongideonashvineldphilippe oxygen saturation, oximetry 98 % Shanna Noblekrystal respiratory rate E&M 12 /min Shanna G yovana pulse rate 81 /min Shanna Tamiajuan [facility] weight E&M 122 [lb_av] Shanna Nobleneashvine [facility] height E&M 64 [in_i] Shanna Americosaraijuan [facility] Body Mass Index (Ratio) 20.94 kg/m2 Remy Martinez MD blood pressure, cuff size regular [facility] Andrew blood pressure, diastolic 85 mm[Hg] [facility] Andrew blood pressure, systolic 122 mm[Hg] [facility] pulse rate 80 /min [facility] oxygen saturation, oximetry 98 % [facility] respiratory rate E&M 15 /min Cristina hunter weight E&M 122 [lb_av] Cristina Summerton height E&M 64 [in_i] [facility] Body Mass Index (Ratio) 21.11 kg/m2 Dario zhang blood pressure, cuff size regular Ke rri Americouenelolis blood pressure, diastolic 80 mm[Hg] Luisito rri Americouenenfsusan blood pressure, systolic 132 mm[Hg] Lisbet Baker oxygen saturation, oximetry 98 % Shanna Samuel respiratory rate E&M 12 /min Shanna yen pulse rate 81 /min Shanna Greer [facility] weight E&M 123 [lb_av] Shanna Percy [facility] height E&M 64 [in_i] Shanna Percy [facility] Body Mass Index (Ratio) 20.94 kg/m2 Dario [...] Martinez MD blood pressure, cuff size regular Id karl Caruso blood pressure, diastolic 82 mm[Hg] Mi karl Mclean blood pressure, systolic 140 mm[Hg] [facility] stephanie Mclean oxygen saturation, oximetry 98 % Vanessa Carsuo respiratory rate E&M 16 /min Carmen Caruso [...] petersonnfelder pulse rate 66 /min Shanna Greer [facility] weight E&M 124 [lb_av] Shanna Greer er height E&M 64 [in_i] Shanna Greer [facility] Body Mass Index (Ratio) 21.28 kg/m2 Taew on blood pressure, diastolic, standing 76 mm [Hg] [place] blood pressure, systolic, standing 192 mm [Hg] Taon Amrit blood pressure, cuff size regular Ke rri Grueneashvinelder blood pressure, diastolic 80 mm[Hg] Ke rri Americoueneashvineld blood pressure, systolic 132 mm[Hg] Lisbet Summers oxygen saturation, oximetry 98 % [facility] respiratory rate E&M 14 /min [facility] pulse rate 80 /min Shanna Greer [facility] weight E&M 124 [lb_av] Shanna Greer er height E&M 64 [in_i] Shanna Greer [facility] ALLERGIES Allergy Name Onset Date Reaction Criticality [...] Not Estab. platelet count 264 X10E3/UL [employer] 123-147 8163/01 /21 red blood cell distribution width 13.1 [...] [employer]Log[employer] 3.5-5.2 sodium, serum 139 mmol/L [employer] 163-932 0880/01 /21 urea nitrogen/creatinine ratio, serum 23 [employer]Logic [...] [employer] 3.5-5.2 sodium, serum 141 mmol/L [employer] 632-970 3527/06 /15 urea nitrogen/creatinine ratio, serum 17 [employer]Logic [...] Not Estab. platelet count 320 X10E3/UL [employer] 434-175 4381/06 /15 red blood cell distribution width 12.8 [...] iron binding capacity, unsaturated 243 ug/dL [employer] 735-183 8809/03 /16 iron binding capacity, total 301 ug/dL [employer] 249-696 1003/03 /16 alanine aminotransferase (SGPT), serum 24 1/L [...] [employer]Logic 3.5-5.2 sodium, serum 142 mmol/L [employer] 351-505 1669/03 /16 urea nitrogen/creatinine ratio, serum 20 LinkLogic [...] Not Estab. platelet count 256 X10E3/UL [employer] 990-519 1512/03 /16 red blood cell distribution width 13.0 [...] LinkLogic 3.5-5.2 sodium, serum 138 mmol/L [employer] 244-201 7749/01 /28 urea nitrogen/creatinine ratio, serum 20 LinkLogic [...] Not Estab. platelet count 276 X10E3/UL [employer] 314-055 5166/01 /28 red blood cell distribution width 12.8 [...] TAKE ONE TABLET TWICE DAILY - Shanna Bakre diltiazem HCl 30 mg tablet active Take [...] Value Provider smoking status Never smoker Dario Morcoho smoking status Never smoker Leroy Bubba aparicio smoking status Never smoker Kayden [place] Exercise counseling No - Medical Reason Ras [...] Payer name Policy type / Coverage type Berkley red green party ID [employer] Other [employer] Other [employer] MEDICARE [place] PPO Medicare [id number] 100 ADVANCE DIRECTIVES Name Date DISCUSSED - NO DECISION MADE TREATMENT PLAN Date Name Performer [id number],S, Dario Wade i [id number],B,e pisodes occur almost daily but not worse from before Dario Morocho [id number],S, Dario Wade i [id number],S, Dario Wade i [id number],C, u nchanged from echo 09/2022 Dario Morocho [id number],C,on Eliquis Kita Morocho [id number],C,U nlikely to be cardiac as her stress nuclear and echo were overall normal. Dario Morocho [id number],C,unchanged fro m echo today Dario Morocho [id number],S,S mellisa last visit she complains of dizziness, near syncope, vision changes. She also complains of chest pain which radiates to her neck. She has poor sleep quality. She has VT episodes seen on device check, will check echo to assess for EF and stress nuclear to rule out ischemia as culprit for VT. Dario Wadei [id number],S, Dario Wade i [id number],C,Occurs daily Dario Morocho [id number],C, Device check shows new episodes of VT, will check echo and stress nuclear to evaluate and rule out ischemia. Dario Morocho [id number],C,S xs occur almost daily. Device check shows new episodes of VT, will check echo and stress nuclear to evaluate . Dario Morocho [id number],W,R ecent device check showed AT/AF Purchase: 0.0%, % Pacing: RA - 87.0% RV - 12.0%. Dario Morocho [id number],C,u nknown etiology of her dizziness and imbalance, recommended she decrease her Diltiazem to 30 mg BID and see if her sxs improve. Dario Morocho [id number],C,R emote check from 04/30 showed AT/AF Purchase: 0.0% % Pacing: RA - 88.0% RV - 19.0% Dario Wade [id number],C, I mproved. Dario Morocho [id number],C,E cho CONCLUSIONS: 1 . Normal left ventricular [...] root size. Mild aortic wall calcification. [facility] [id number],C,Improved. Antonieta rené [facility] [id number],C,H er recent device check showed AT/AF Purchase: 0.0%, % Pacing: RA - 86.0% RV - 8.0%. 02/2022 Dario beckyjoie [id number],C,No reoccurran ce. Dario ct [id number],C,l ast EKG with NSR. No events on device. T he 'red streaks' around incision to PPM is from the sutures used. Not on AC. Takes only ASA daily. Reinforced to patient to take Eliquis 2.5 mg bid. Diltiazem was decreased to 30 mg tid. Jolene Roland JASON [id number],B,resolved. She rry Luan GOMEZ [id number],S,moderate per last echo Jolene Roland JASON [id number],C, C ontinues to have dizziness. Pacemaker is functioning well. Will schedule echo and carotid duplex and obtain labwork for further assessment. Nichole Dustin [id number],C, C ontinues to have dizziness. Pacemaker is functioning well. Will schedule echo and carotid duplex and obtain labwork for further assessment. Nichole Dustin [id number],S, H ad pacemaker placed. Device is functioning well Nichole Ashleykoko [id number],C, r emains on Eliquis 2.5mg BID. Device check last week showed no afib Nichole Ashleykoko [id number],C, F ollows with PCP. Celestenara Key [place] [id number],S, Celeste Yesi GOMEZ [id number],C,w ill increase HR to 80 on device. will check CT head non-contrast. will check cxr Celeste Key NP [id number],C,i nterrogation no events. will increase rate to 80. will check cxr, CT head without contrast. Celeste Key NP [id number],C,s/p PPM. will check CXR today Celeste Yesi GOMEZ [id number],C,r emains on Eliquis 2.5mg BID. interrogation today,no AFIB. Celeste Yesi GOMEZ [id number],C,r estart eliquis now take 5 mg of eliquis now and continue 2.5 mg PO bid atrting tomorrow Bc Martinez MD [id number],C, Bc salinas MD [id number],B, Bc salinas MD [id number],C, Bc salinas MD [id number],C,p ost pacemaker implantation O rders: G lobal No Charge (CPT-02626) Bc Martinez MD [id number],C,s hould improve if in sinus O rders: C omplete Echo (CPT-27995) Bc Martinez MD [id number],W,a rrhythmia na AI related O rders: C omplete Echo (CPT-10359) 9 9214 MOD 30-39min (CPT-15994) Bc Colekhadar HAMMOND [id number],W, O rders: C omplete Echo (CPT-94973) P acemaker Dual Chamber - SLHV (*) ravi Michelle HAMMOND [id number],W, O rders: P acemaker Dual Chamber - [...] MAY BE AN OPTION Orders: E KG (CPT-52450) C omplete Echo (CPT-97464) 9 9214 MOD 30-39min (CPT-67791) Bc Martinez MD [id number],W, M onitor from 06/29/2021 shows minimum HR [...] Chamber - SLHV (*) Bc Martinez MD [id number],C, O rders: C omplete Echo (CPT-88532) Jossie Amrit [id number],B, M onitor from 06/29/2021 shows minimum HR [...] Dual Chamber - SLHV (*) Jossie Marcus [id number],C, O rders: Mansoor quiroga Dual Chamber - [...] FLECAINIDE MAY BE AN OPTION Jacquesebony Marcus [id number],Ras Pires with PCP. Jossie Marcus [id number],W, M onitor from 06/29/2021 shows minimum HR [...] Dual Chamber - SLHV (*) Jossie Marcus [id number],C, Jossie Marcus [id number],C, O rders: Mansoor quiroga Dual Chamber - [...] TIME WITH INR (8847) Dario zhang [facility]: H er updated medication list for [...] have referrred her to CT surgery at [facility] Kayden Pablo Electrophysiology Kayden Pablo [...] rule out ischemia as culprit for VT. [facility] Electrophysiology:Occurs daily R corené [facility] Electrophysiology: D evice check shows new episodes of VT, will check echo and stress nuclear to evaluate and rule out ischemia. [facility] Electrophysiology:Sx s occur almost daily. Device check shows new episodes of VT, will check echo and stress nuclear to evaluate . [facility] Electrophysiology:Re cent device check showed AT/AF Purchase: 0.0%, % Pacing: RA - 87.0% RV - 12.0%. [facility] Elect[facility]:un known etiology of her dizziness and imbalance, recommended she decrease her Diltiazem to 30 mg BID and see if her sxs improve. [facility] Electrophysiology:Re mote check from 04/30 showed AT/AF Purchase: 0.0% % Pacing: RA - 88.0% RV - 19.0% [facility] Electrophysiology: I mproved. [facility] Electrophysiology:Ec ho CONCLUSIONS: 1 . Normal left [...] Electrophysiology:He r recent device check showed AT/AF Purchase: 0.0%, % Pacing: RA - 86.0% RV [...] Electrophysiology: F ollows with PCP. Celeste Key FOREIGN EXCHANGE CLERK Electrophysiology Celeste paez FOREIGN EXCHANGE CLERK Electrophysiology:wi ll increase HR to 80 on device. will check CT head non-contrast. will check cxr Celeste Key FOREIGN EXCHANGE CLERK Electrophysiology:in terrogation no events. will increase rate [...] implantation O rders: G lobal No Charge (CPT-98988) Bc Martinez MD Electrophysiology:sh ould improve if in sinus O rders: C omplete Echo (CPT-08898) Bc Martinez MD Electrophysiology:ar rhythmia na AI related O rders: C omplete Echo (CPT-23393) 9 9214 MOD 30-39min (CPT-02809) Bc Martinez MD Electrophysiology: O rders: C omplete Echo (CPT-12835) P acemaker Dual Chamber - SLHV (*) [...] MAY BE AN OPTION Orders: E KG (CPT-48170) C omplete Echo (CPT-95700) 9 9214 MOD 30-39min (CPT-19390) Bc Martinez MD Electrophysiology: M onitor from [...] MD Electrophysiology: O rders: Pranay cottonlete Echo (CPT-94548) Jossie Marcus Electrophysiology: M onitor from 06/29/2021 [...] Chamber - SLHV (*) Jossie Marcus Electrophysiology Josise Marcus Electrophysiology: O rders: P acemaker Dual [...] [address] Martinez at [facility] completed EKG Bc Martinez MD comp leted EKG Bc Martinez MD comp leted
--- OUTSIDE RECORDS SUMMARY | 2025-01-27 10:54 | XMS_ITS | Encounter Summary ---
Author Organization [facility] Address [address] [place] [address] Phone Care Team Providers Care Vault Clerk Name Role Phone FaizaChristine MD Unavailable [phone] Sita Magana MD Unavailable [phone] Nabila King MD Primary Care Provider Regulo Pandey MD Unavailable [facility] Unavailable [phone] Bc Martinez MD Unavailable [phone] Bc Martinez MD Unavailable [phone] Martin Correa MD Unavailable [phone] [facility] Unavailable Encounter Details Date Type Department Care Team (Late st Contact Info) Description 09/22/2022 Orders Only [facility] [address] [place] [address] Scanning, Provider Social History Tobacco [...] file Legal 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 Gender Identity Not on file Sexual [...] on filedocumented in this encounter Care Teams Vault Clerk Relationship Specialty Start Date End Date Nabila King MD [address] [place] [address] [address] [place] [address] PCP - General Internal Medicine 12/16/20 Christine Kendall MD Surgeon Ophthalmology 12/13/20 Sita Magana MD [address] [place] [address] [address] [place] [address] Consulting Physician Internal Medicine 12/13/20 Regulo Pandey MD [address] [place] [address] [address] [place] [address] Referring Physician Cardiovascular Disease 12/16/20 Gigi Méndez MD [address] [place] [address] [address] [place] [address] Referring Physician Cardiology 02/18/21 Bc Martinez MD [address] [place] [address] Consulting Physician Cardiology 10/22/21 08/21/23 Bc Martinez MD [address] [place] [address] Referring Physician Cardiology 08/22/23 Martin Correa MD [address] [place] [address] Consulting Physician Cardiothoracic Surgery 08/22/23 [facility] [address] [place] [address] Consulting Physician Neurology 07/09/24 documented as of this encounter
--- OUTSIDE RECORDS SUMMARY | 2025-01-27 10:54 | XMS_ITS | Encounter Summary ---
Author Organization [facility] Address [address] [place] [address] Phone Care Team Providers Care News Clipping Cutter Name Role Phone Jason Winters MD Primary Care Provider [phone] Christine Kendall MD Unavailable [phone] Sita Magana MD Unavailable [phone] Nabila King MD Primary Care Provider + [phone] Regulo Pandey MD Unavailable Gigi Méndez MD Unavailable [phone] Bc Martinez MD Unavailable [phone] Bc Martinez MD Unavailable [phone] Martin Correa MD Unavailable [phone] Gildardo Gonzáles Si, MD Unavailable Encounter Details Date Type Department Care Team (Late st Contact Info) Description 03/12/2019 Orders Only [facility] [address] [place] [address] Nabila King MD [address] [place] [address] Social History Tobacco Use Types Packs/Day Years Used Date Smoking Tobacco: Never Smokeless Tobacco: Never Alcohol Use Standard Drinks/Week Comments No 0 (1 standard drink = 0.6 oz pur e alcohol) Comments Unknown Sex and Gender Information Value Date Recorded Sex Assigned at Not on file 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 Gender Identity Not on file Sexual [...] on filedocumented in this encounter Care Teams News Clipping Cutter Relationship Specialty Start Date End Date Jason Winters MD [address] [place] [address] PCP - General Family Medicine 07/23/18 12/15/20 Nabila King MD [address] [place] [address] PCP - General Internal Medicine 12/16/20 Christine Kendall MD [address] [place] [address] Surgeon Ophthalmology 12/13/20 Sita Magana MD [address] [place] [address] Consulting Physician Internal Medicine 12/13/20 Regulo Pandey MD [address] [place] [address] Referring Physician Cardiovascular Disease 12/16/20 Gigi Méndez MD [address] [place] [address] Referring Physician Cardiology 02/18/21 Bc Martinez MD [address] [place] [address] Consulting Physician Cardiology 10/22/21 08/21/23 Bc Martinez MD [address] [place] [address] Referring Physician Cardiology 08/22/23 Martin Correa MD [address] [place] [address] Consulting Physician Cardiothoracic Surgery 08/22/23 [facility] [address] [facility] [address] [place] [address] Consulting Physician Neurology 07/09/24 documented as of this encounter
--- OUTSIDE RECORDS SUMMARY | 2025-01-27 10:54 | XMS_ITS | Encounter Summary ---
Author Organization [facility] Address [address] [place] [address] Phone Care Team Providers Care Technology Assistant Name Role Phone Jason Winters MD Primary Care Provider [phone] Christine Kendall MD Unavailable [phone] Sita Magana MD Unavailable [phone] Nabila King MD Primary Care Provider [phone] Regulo Pandey MD Unavailable Gigi Méndez MD Unavailable [phone] Bc Martinez MD Unavailable [phone] Bc Martinez MD Unavailable [phone] Martin Correa MD Unavailable [phone] Gildardo Gonzáles Si, MD Unavailable Encounter Details Date Type Department Care Team (Late st Contact Info) Description 05/07/2020 Orders Only [facility] [address] [place] [address] Nabila King MD [address] [place] [address] Social History Tobacco Use Types Packs/Day Years Used Date Smoking Tobacco: Never Smokeless Tobacco: Never Alcohol Use Standard Drinks/Week Comments No 0 (1 standard drink = 0.6 oz pur e alcohol) Comments Unknown Sex and Gender Information Value Date Recorded Sex Assigned at Not on file 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 Gender Identity Not on file Sexual [...] on filedocumented in this encounter Care Teams Technology Assistant Relationship Specialty Start Date End Date Jason Winters MD [address] [place] [address] PCP - General Family Medicine 07/23/18 12/15/20 Nabila King MD [facility] [address] [place] [address] PCP - General Internal Medicine 12/16/20 Christine Kendall MD [address] [place] [address] Surgeon Ophthalmology 12/13/20 Sita Magana MD [address] [place] [address] Consulting Physician Internal Medicine 12/13/20 Regulo Pandey MD [address] [place] [address] Referring Physician Cardiovascular Disease 12/16/20 Gigi Méndez MD [address] [place] [address] Referring Physician Cardiology 02/18/21 Bc Martinez MD [address] [place] [address] Consulting Physician Cardiology 10/22/21 08/21/23 Bc Martinez MD [address] [place] [address] Referring Physician Cardiology 08/22/23 Martin Correa MD [address] [place] [address] Consulting Physician Cardiothoracic Surgery 08/22/23 [facility] [address] [facility] [place] [address] Consulting Physician Neurology 07/09/24 documented as of this encounter
--- OUTSIDE RECORDS SUMMARY | 2025-01-27 10:54 | XMS_ITS | Encounter Summary ---
Author Organization [facility] Address [address] [place] [address] Phone Care Team Providers Care Truck Trailer Mechanic Name Role Phone Jason Winters MD Primary Care Provider [phone] Christine Kendall MD Unavailable [phone] Sita Magana MD Unavailable [phone] Nabila King MD Primary Care Provider + [phone] Regulo Pandey MD Unavailable Gigi Méndez MD Unavailable [phone] Bc Martinez MD Unavailable [phone] Bc Martinez MD Unavailable [phone] Martin Correa MD Unavailable [phone] Gildardo Gonzáles Si, MD Unavailable Encounter Details Date Type Department Care Team (Late st Contact Info) Description 02/09/2018 Orders Only [facility] [address] [place] [address] Nabila King MD [address] [place] [address] Social History Tobacco Use Types Packs/Day Years Used Date Smoking Tobacco: Never Alcohol Use Standard Drinks/Week Comments No 0 (1 standard drink = 0.6 oz pur e alcohol) Comments Unknown Sex and Gender Information Value Date Recorded Sex Assigned at Not on file 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 Gender Identity Not on file Sexual Orientation [...] on filedocumented in this encounter Care Teams Truck Trailer Mechanic Relationship Specialty Start Date End Date Jason Winters MD [address] [place] [address] PCP - General Family Medicine 07/23/18 12/15/20 Nabila King MD [facility] [address] [place] [address] PCP - General Internal Medicine 12/16/20 Christine Kendall MD [address] [place] [address] Surgeon Ophthalmology 12/13/20 Sita Magana MD [address] [place] [address] Consulting Physician Internal Medicine 12/13/20 Regulo Pandey MD [address] [place] [address] Referring Physician Cardiovascular Disease 12/16/20 Gigi Méndez MD [address] [place] [address] Referring Physician Cardiology 02/18/21 Bc Martinez MD [address] [place] [address] Consulting Physician Cardiology 10/22/21 08/21/23 Bc Martinez MD [address] [place] [address] Referring Physician Cardiology 08/22/23 Martin Correa MD [address] [place] [address] Consulting Physician Cardiothoracic Surgery 08/22/23 NiviaGildardo Si, MD [address] [facility] [place] [address] Consulting Physician Neurology 07/09/24 documented as of this encounter
--- OUTSIDE RECORDS SUMMARY | 2025-01-27 10:54 | XMS_ITS | Encounter Summary ---
Author Organization [facility] Address [address] [place] [address] Phone Care Team Providers Care Mechanical Maintenance Name Role Phone Jason Winters MD Primary Care Provider [phone] Jason Winters MD Primary Care Provider [phone] Jason Winters MD Primary Care Provider [phone] Jason Winters MD Primary Care Provider [phone] Jason Winters MD Primary Care Provider [phone] Christine Kendall MD Unavailable [phone] Sita Magana MD Unavailable [phone] Nabila King MD Primary Care Provider + [phone] Regulo Pandey MD Unavailable Gigi Méndez MD Unavailable [phone] Bc Martinez MD Unavailable [phone] Bc Martinez MD Unavailable [phone] Martin Correa MD Unavailable [phone] Gildardo Gonzáles Si, MD Unavailable Encounter Details Date Type Department Care Team (Late st Contact Info) Description 05/15/2012 Orders Only [facility] [address] [place] [address] Scanning, Provider Social History Tobacco Use Types Packs/Day Years Used Date Smoking Tobacco: Never Assessed Comments Unknown Sex and Gender Information Value Date Recorded Sex Assigned at Not on file 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 Gender Identity Not on file Sexual [...] on filedocumented in this encounter Care Teams Mechanical Maintenance Relationship Specialty Start Date End Date Jason Winters MD [address] [place] [address] PCP - General 11/18/16 01/17/18 Jason Winters MD [address] [place] [address] PCP - General 08/05/13 11/17/16 Jason Winters MD [address] [place] [address] PCP - General 05/13/13 08/04/13 Jason Winters MD [address] [place] [address] PCP - General 06/15/12 05/12/13 Jason Winters MD [address] [place] [address] PCP - General Family Medicine 07/23/18 12/15/20 Nabila King MD [address] [facility] [address] [place] [address] PCP - General Internal Medicine 12/16/20 Christine Kendall MD [address] [place] [address] Surgeon Ophthalmology 12/13/20 Sita Magana MD [address] [place] [address] [address] [place] [address] Consulting Physician Internal Medicine 12/13/20 Regulo Pandey MD [address] [place] [address] [address] [place] [address] Referring Physician Cardiovascular Disease 12/16/20 Gigi Méndez MD [address] [place] [address] [address] [place] [address] Referring Physician Cardiology 02/18/21 Bc Martinez MD [address] [place] [address] Consulting Physician Cardiology 10/22/21 08/21/23 Bc Martinez MD [address] [place] [address] Referring Physician Cardiology 08/22/23 Martin Correa MD [address] [place] [address] Consulting Physician Cardiothoracic Surgery 08/22/23 Gildardo Gonzá[place] [address] [place] [address] [address] [place] [address] Consulting Physician Neurology 07/09/24 documented as of this encounter
--- OUTSIDE RECORDS SUMMARY | 2025-01-27 10:54 | XMS_ITS | Continuity of Care Document ---
Author Organization [facility] Address [address] [place] [address] Phone Care Team Providers Care Architectural Coating Finisher Name Role Phone Calvin HAMMOND, Logan Unavailable Unavailable Advance Directives Directive Yes / No Effective Date File Name No Information Encounters Encounter Description Practice Location Reason(s) For Visit Diagnoses Date Provider Providers Copied on Encounter [facility], [address], [place], [place], [id number], tel:[phone] SEC Niko Andrade No Information Calvin Ford. [address] [place], [address], [place]. tel: [phone] Family History Family Member Type Diagnosis Age At Onset No Information Payers Payer name Insurance type Covered republican ID Authoriza tion(s) Medicare RR MB [id number] Social History Type Description Quantity Date Captured [...]
--- OUTSIDE RECORDS SUMMARY | 2025-01-27 10:54 | XMS_ITS | Encounter Summary ---
Author Organization [facility] Address [address] [place] [address] Phone Care Team Providers Care Ceramic Saw Tender Name Role Phone Jason Winters MD Primary Care Provider [phone] Christine Kendall MD Unavailable [phone] Sita Magana MD Unavailable [phone] Nabila King MD Primary Care Provider [phone] Regulo Pandey MD Unavailable Gigi Méndez MD Unavailable [phone] Bc Martinez MD Unavailable [phone] Bc Martinez MD Unavailable [phone] Martin Correa MD Unavailable [phone] Gildardo Gonzáles Si, MD Unavailable Encounter Details Date Type Department Care Team (Late st Contact Info) Description 05/23/2019 Orders Only [facility] [address] [place] [address] Nabila King MD [address] [place] [address] Social History Tobacco Use Types Packs/Day Years Used Date Smoking Tobacco: Never Smokeless Tobacco: Never Alcohol Use Standard Drinks/Week Comments No 0 (1 standard drink = 0.6 oz pur e alcohol) Comments Unknown Sex and Gender Information Value Date Recorded Sex Assigned at Not on file 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 Gender Identity Not on file Sexual Orientation [...] on filedocumented in this encounter Care Teams Ceramic Saw Tender Relationship Specialty Start Date End Date Jason Winters MD [address] [place] [address] PCP - General Family Medicine 07/23/18 12/15/20 Nabila King MD [facility] [address] [place] [address] PCP - General Internal Medicine 12/16/20 Christine Kendall MD [address] [place] [address] Surgeon Ophthalmology 12/13/20 Sita Magana MD [facility] [address] [place] [address] Consulting Physician Internal Medicine 12/13/20 Regulo Pandey MD [address] [place] [address] Referring Physician Cardiovascular Disease 12/16/20 Gigi Méndez MD [address] [place] [address] Referring Physician Cardiology 02/18/21 Bc Martinez MD [address] [place] [address] Consulting Physician Cardiology 10/22/21 08/21/23 Bc Martinez MD [address] [place] [address] Referring Physician Cardiology 08/22/23 Martin Correa MD [address] [place] [address] Consulting Physician Cardiothoracic Surgery 08/22/23 [facility] [address] [facility] [place] [address] Consulting Physician Neurology 07/09/24 documented as of this encounter
--- OUTSIDE RECORDS SUMMARY | 2025-01-27 10:54 | XMS_ITS | Encounter Summary ---
Author Organization [facility] Address [address] [place] [address] Phone Care Team Providers Care Afternoon Nanny Name Role Phone Jason Winters MD Primary Care Provider [phone] Christine Kendall MD Unavailable [phone] Sita Magana MD Unavailable [phone] Nabila King MD Primary Care Provider [phone] Regulo Pandey MD Unavailable Gigi Méndez MD Unavailable [phone] Bc Martinez MD Unavailable [phone] Bc Martinez MD Unavailable [phone] Martin Correa MD Unavailable [phone] Gildardo Gonzáles Si, MD Unavailable Encounter Details Date Type Department Care Team (Late st Contact Info) Description 01/31/2019 Orders Only [facility] [address] [place] [address] Nabila King MD [address] [place] [address] Social History Tobacco Use Types Packs/Day Years Used Date Smoking Tobacco: Never Smokeless Tobacco: Never Alcohol Use Standard Drinks/Week Comments No 0 (1 standard drink = 0.6 oz pur e alcohol) Comments Unknown Sex and Gender Information Value Date Recorded Sex Assigned at Not on file 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 Gender Identity Not on file Sexual Orientation [...] on filedocumented in this encounter Care Teams Afternoon Nanny Relationship Specialty Start Date End Date Jason Winters MD [address] [place] [address] PCP - General Family Medicine 07/23/18 12/15/20 Nabila King MD [facility] [address] [place] [address] PCP - General Internal Medicine 12/16/20 Christine Kendall MD [address] [place] [address] Surgeon Ophthalmology 12/13/20 Sita Magana MD [facility] [address] [place] [address] Consulting Physician Internal Medicine 12/13/20 Regulo Pandey MD [address] [place] [address] Referring Physician Cardiovascular Disease 12/16/20 Gigi Méndez MD [address] [place] [address] Referring Physician Cardiology 02/18/21 Bc Martinez MD [address] [place] [address] Consulting Physician Cardiology 10/22/21 08/21/23 Bc Martinez MD [address] [place] [address] Referring Physician Cardiology 08/22/23 Martin Correa MD [address] [place] [address] Consulting Physician Cardiothoracic Surgery 08/22/23 [facility], MD [address] [facility] [place] [address] Consulting Physician Neurology 07/09/24 documented as of this encounter
--- OUTSIDE RECORDS SUMMARY | 2025-01-27 10:54 | XMS_ITS | Clinical Summary ---
Author Organization [facility] Address [address] [place] [address] Phone Care Team Providers Care Pump Operator Byproducts Name Role Phone FaizaChristine flaherty MD Unavailable [phone] Melinda Magana MD Unavailable [phone] Nabila King MD Primary Care Provider [phone] Gigi Méndez MD Unavailable [phone] Bc Martinez MD Unavailable [phone] Martin Correa MD Unavailable [phone] [facility], MD Unavailable Allergies Active Allergy Reactions Criticality Noted Date Comments Chloramphenicol Other (See comments) Low 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 Worse in the last 3 [...] 06/23/2024 Assessment & Plan (06/23/2024 6:28 PM CAR SHAGGER): Chronic, uncontrolled. Worse in the last 3 [...] 06/23/2024 Assessment & Plan (06/23/2024 6:40 PM CAR SHAGGER): Chronic, controlled. Recent facial MRI shows Nonspecific 1.6 x 0.3 x 1.3 cm peripherally enhancing fluid collection along the anterior midline mandibular body suspicious for an abscess in the appropriate clinical setting. No adjacent cortical destruction or bone edema. Mild mucosal thickening of the inferior left maxillary sinus. Patient has been taking daily doxycycline since February and has seen spanish teacher multiple times. CBC from January unremarkable. No [...] 0 Assessment & Plan (06/23/2024 6:33 PM CAR SHAGGER): Chronic, controlled. Managed by Cardiology. CMP from [...] normal reflexes. She recently started turmeric and pet caretaker last week along with stretching exercises. [...] stage Assessment & Plan (07/15/2024 11:01 PM CAR SHAGGER): intraocular pressure (IOP) acceptable off meds status [...] DFE Assessment & Plan (09/20/2021 6:46 PM CAR SHAGGER): intraocular pressure (IOP) acceptable off meds status [...] 24-2 Assessment & Plan (07/23/2018 11:42 AM CAR SHAGGER): intraocular pressure (IOP) excellent- blebs functioning well [...] 2014 Assessment & Plan (07/15/2024 11:02 PM CAR SHAGGER): Now VS with glare symptoms No noted [...] observe Assessment & Plan (09/20/2021 12:48 PM CAR SHAGGER): Not VS- observe Assessment & Plan (12/14/2020 [...] visit Assessment & Plan (07/23/2018 11:42 AM CAR SHAGGER): Not visually significant Assessment & Plan (01/22/2018 [...] undergo trial of Doxy 50 mg/day per construction secretary Pseudophakia 01/22/2018 04/10/2022 Assessment & Plan (03/18/2022 11:46 AM CDT): Recommend MRx with local shake cutter Mitral valve disease 09/30/2014 022 Overview (11/24/2016): Mitral valve disorder Encounters Date Type Department Care Team Description 01/16/2025 10:18 AM CDT - 01/16/2025 11:59 PM CDT Hospital Encounter [facility] [address] [place] [address] Doug Elena MD Myalgia, other site (Primary Dx) Discharge Disposition: Discharge to home or self care 01/12/2025 Orders Only [facility] Health Information Management [address] [place] [address] Scanning, Provider 12/26/2024 3:08 PM CDT - 12/26/2024 11:59 PM CDT Hospital Encounter [facility] [address] [place] [address] Doug Elena MD Myalgia, other site Discharge Disposition: Discharge to home or self care 11/28/2024 10:12 AM CDT - 11/28/2024 11:59 PM CDT Hospital Encounter [facility] [place] [address] Doug Elena MD Myalgia, other site (Primary Dx); Cervical radiculopathy; Facet arthropathy, cervical Discharge Disposition: Discharge to home or self care 11/26/2024 Telephone [facility] [address] [facility] [address] [place] [address] Nabila King MD Lab Results 11/20/2024 Results [facility] [address] [facility] [address] [place] [address] Nabila King MD Vitamin D 25 hydroxy, Lipid panel, Iron profile w/ IBC, Additional followed-up results: 5 11/14/2024 11:15 AM CDT [facility] [address] [facility] [address] [place] [address] Nabila King MD Annual physical exam (Primary [...] B screening test; Immunization counseling 11/14/2024 Telephone [facility] [address] [place] [address] Nabila King MD from Last 3 Months Immunizations Immunization Administration [...] adenoma rectum ABLATION OF AFIB FLUTTER 02/18/2021 [facility] CARDIAC PACEMAKER PLACEMENT 10/19/2021 - 11/18/2021 [...] file Legal Sex Female 8:14 PM CAR SHAGGER Gender Identity Not on file Sexual Orientation Not on file 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 Not on file Obstetrics History Last Filed Vital Signs Vital Sign Reading Time Taken Comments Blood Pressure 134/76 01/16/2025 10:38 AM CDT Pulse 80 01/16/2025 10:38 AM CDT Temperature 36.6 C (97.8 F) 12/26/2024 3:33 PM CDT Respiratory Rate 18 01/16/2025 10:38 AM CDT Oxygen Saturation 100% 01/16/2025 10:38 AM CDT Inhaled Oxygen Concentration - - Weight 56.7 kg (125 lb) 11/14/2024 11:45 AM CDT Height 162.6 cm (5' 4) 11/14/2024 11:45 AM CDT Body Mass Index 21.46 11/14/2024 11:45 AM CDT Plan of Treatment Health Maintenance Due Date Last Done Comments Covid-19 Vaccine (2023- 5 season) 2024 05/01/2024, [...] Date/Time Associated Diagnosis Comments SCAN - RADIOLOGY/IMAGING 01/12/2025 PAIN MGMT IMAGING ULTRASOUND TRIGGER POINT INJ [...] Recently Relevant to Health Maintenance Results * SCAN - RADIOLOGY/IMAGING (01/12/2025) Anatomical Region Laterality Modality Other us Provider Scanning Final Result * Imaging Ultrasound Trigger Point INJ 3+ Muscle Groups () (12/26/2024 3:08 PM CDT) Narrative [facility] - 12/26/2024 3:08 PM CDT The images from this study are not interpreted by Radiology. Please refer to the physician's procedure / OR operative note. Doug Elena MD IMG PAIN MGMT PROCEDURE S Final Result Performing Organization Address [facility]/ZIP Co de Phone Number [facility] * Thyroid Function [place] (11/18/2024 9:10 AM CDT) TSH 1.970 0.450 - 4.500 uIU/mL [facility] - 01 Comment: No apparent thyroid disorder. Additional testing not indicated. In rare instances, Secondary Hypothyroidism as well as Subclinical Hypothyroidism have been reported in some patients with normal TSH values. Blood 11/18/2024 9:10 AM CDT 11/18/2024 Narrative [facility] - 11/19/2024 9:36 AM CDT Performed at: [facility] [employer] [id number] Tankage Supervisor: Darek Farrell PhD, Phone: [phone] Nabila King MD LAB BLOOD ORDERABLES Final Result Performing Organization Address [facility]/ZIP Co de Phone Number [facility] - 01 * Iron profile w/ IBC (11/18/2024 9:10 AM CDT) Iron Bind.Cap.(TIBC) 312 250 - 450 ug/dL [facility] - 01 UIBC 173 118 - 369 ug/dL [facility] - 01 Iron 139 27 - 139 ug/dL [facility] - 01 Iron saturation 45 15 - 55 % [facility] - 01 Blood 11/18/2024 9:10 AM CDT 11/18/2024 Narrative [facility] - 11/19/2024 9:36 AM CDT Performed at: [address] [place] [id number] Tankage Supervisor: Darek Farrell PhD, Phone: [phone] Nabila King MD LAB BLOOD ORDERABLES Final Result [facility] - 01 * (ABNORMAL) CBC with auto differential (11/18/2024 9:10 AM CDT) [facility] WBC 6.4 3.4 - 10.8 x10E3/uL [...] 11/19/2024 7:37 AM CDT Performed at: [address] [place] [id number] Tankage Supervisor: Darek Farrell PhD, Phone: [phone] us Nabila King MD LAB BLOOD ORDERABLES Final Result Performing Organization Address [facility] Co de Phone Number [facility] * Hepatitis B core antibody, total Blood (11/18/2024 9:10 AM CDT) Pathologist [facility] Hep B core IgG/IgM Negative Negative [facility] - Blood 11/18/2024 9:10 AM CDT 11/18/2024 Narrative [facility] - 11/19/2024 7:37 AM CDT Performed at: [address] [place] [id number] Tankage Supervisor: Darek Farrell PhD, Phone: [phone] Nabila King MD LAB MICROBIOLOGY - GENERAL ORDERABLES Final Result Performing Organization Address [facility] Co de Phone Number [facility] * Vitamin D 25 hydroxy (11/18/2024 9:10 AM CDT) Pathologist [facility] Vitamin D, 25-Hydroxy 46.7 30.0 - 100.0 ng/mL [facility] - Comment: Vitamin D deficiency has been defined by the [place] of Medicine and an Endocrine Society practice guideline as a level of serum 25-OH vitamin D less than 20 ng/mL (1,2). The Endocrine Society went on to further define vitamin D insufficiency as a level between 21 and 29 ng/mL (2). 1. IOM ([place] of Medicine). 2010. Dietary reference intakes for calcium and D. [place]: The National Academies Press. 2. Harvey MF, Monica COHEN, Kenneth RICHARDSON, et al. Evaluation, treatment, and prevention of vitamin D deficiency: an Endocrine Society clinical practice guideline. JCEM. 2010; 96(7):1911-30. Blood 11/18/2024 9:10 AM CDT 11/18/2024 Narrative [facility] - 11/19/2024 7:37 AM CDT Performed at: [address] [id number] Tankage Supervisor: Darek Farrell PhD, Phone: [phone] us Nabila King MD LAB BLOOD ORDERABLES Final Result Performing Organization Address City/[facility]/ZIP Co de Phone Number [facility] * Hepatitis B surface antibody (immune status) Blood (11/18/2024 9:10 AM CDT) [facility] HBsAb (immune status) Non Reactive [facility] - Comment: Non Reactive: Not immune to HBV infection. Equivocal: Unable to determine if anti-HBs is present at levels consistent with immunity. Reactive: Anti-HBs concentration detected at greater than 10 mIU/mL. Individual is considered to be immune to infection with HBV. Blood 11/18/2024 9:10 AM CDT 11/18/2024 Narrative [facility] - 11/19/2024 7:37 AM CDT Performed at: [address] [id number] Tankage Supervisor: Darek Farrell PhD, Phone: [phone] us Nabila King MD LAB MICROBIOLOGY - GENERAL ORDERABLES Final Result Performing Organization Address City/[facility]/ZIP Co de Phone Number [facility] * Hepatitis B Surface Antigen Blood (11/18/2024 9:10 AM CDT) [facility] HepBsAg Negative Negative [facility] - Blood 11/18/2024 9:10 AM CDT 11/18/2024 Narrative [facility] - 11/19/2024 7:37 AM CDT Performed at: [address] [id number] Tankage Supervisor: Darek Farrell PhD, Phone: [phone] us Nabila King MD LAB MICROBIOLOGY - GENERAL ORDERABLES Final Result Performing Organization Address [facility] Co de Phone Number [facility] * Lipid panel (11/18/2024 9:10 [...] 11/19/2024 9:36 AM CDT Performed at: [address] [place] [id number] Tankage Supervisor: Darek Farrell PhD, Phone: [phone] Nabila King MD LAB BLOOD ORDERABLES Final Result Performing Organization Address [facility] de Phone Number [facility] * Comprehensive metabolic panel (11/18/2024 9:10 AM CDT) Pathologist [facility] Glucose 89 70 - 99 mg/dL [facility] [...] 11/19/2024 7:37 AM CDT Performed at: - [facility] [address] [id number] Tankage Supervisor: Darek Farrell PhD, Phone: [phone] us Nabila King MD LAB BLOOD ORDERABLES Final Result [facility] - 01 * Dexa Axial Skeleton Bone Density 1 or 2 Site (03/30/2023 2:05 PM CDT) Anatomical Region Laterality Modality Body N/A Radiographic Cayla ging Narrative 03/30/2023 3:51 PM CDT Patient Name: Lisa Conn Date of : 1935 Date of scan: 03/30/2023 Bone mineral density was performed on a [employer] Discovery Densitometer. Based on machine cross-calibration and [...] by the International Society of Clinical Densitometry. [id number] Nabila King MD IMG DXA PROCEDURES Final R esult from Last 3 Months or Most Recently Relevant to Health Maintenance Insurance [employer] MEDICARE [id number] [place] [address] MEDICARE MEDICARE Advance Directives For more information, please contact: [phone] Documents on File Type Date Recorded Patient Bacteriologist Soil Expl anation ADVANCE DIRECTIVE 07/04/2022 POWER OF A [employer] Care Teams Pump Operator Byproducts Relationship Specialty Start Date End Date Nabila King MD [address] [place] [address] PCP - General Internal Medicine 12/16/20 Christine Kendall MD Surgeon Ophthalmology 12/13/20 Melinda Magana MD [address] [facility] [address] [place] [address] Consulting Physician Internal Medicine 12/13/20 Gigi Méndez MD [address] [facility] [address] [place] [address] Referring Physician Cardiology 02/18/21 Bc Martinez MD [address] [place] [address] Referring Physician Cardiology 08/22/23 Martin Correa MD [address] [place] [address] Consulting Physician Cardiothoracic Surgery 08/22/23 Gildardo Gonzáles Si, MD [address] [facility] [address] [place] [address] Consulting Physician Neurology 07/09/24
--- OUTSIDE RECORDS SUMMARY | 2025-01-27 10:54 | XMS_ITS | Encounter Summary ---
Author Organization [facility] Address [address] [place] [address] Phone Care Team Providers Care Special Education Supervisor Name Role Phone Jason Winters MD Primary Care Provider [phone] Jason Winters MD Primary Care Provider [phone] Jason Winters MD Primary Care Provider [phone] Christine Kendall MD Unavailable [phone] Sita Magana MD Unavailable [phone] Nabila King MD Primary Care Provider + [phone] Regulo Pandey MD Unavailable Gigi Méndez MD Unavailable [phone] Bc Martinez MD Unavailable [phone] Bc Martinez MD Unavailable [phone] Martin Correa MD Unavailable [phone] Gildardo Gonzáles Si, MD Unavailable Encounter Details Date Type Department Care Team (Late st Contact Info) Description 2016 Orders Only [facility] [address] [place] [address] Nabila King MD [address] [place] [address] Social History Tobacco Use Types Packs/Day Years Used Date Smoking Tobacco: Never Assessed Alcohol Use Standard Drinks/Week Comments No 0 (1 standard drink = 0.6 oz pur e alcohol) Comments Unknown Sex and Gender Information Value Date Recorded Sex Assigned at Not on file 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 Gender Identity Not on file Sexual Orientation [...] on filedocumented in this encounter Care Teams Special Education Supervisor Relationship Specialty Start Date End Date Jason Winters MD [address] [place] [address] PCP - General 11/18/16 01/17/18 Jason Winters MD [address] [place] [address] PCP - General 08/05/13 11/17/16 Jason Winters MD [address] [place] [address] PCP - General Family Medicine 07/23/18 12/15/20 Nabila King MD [address] [place] [address] [address] PCP - General Internal Medicine 12/16/20 Christine Kendall MD [address] [place] [address] Surgeon Ophthalmology 12/13/20 Sita Magana MD [address] [facility] [address] [place] [address] Consulting Physician Internal Medicine 12/13/20 Regulo Pandey MD [address] [facility] [address] [place] [address] Referring Physician Cardiovascular Disease 12/16/20 Gigi Méndez MD [address] [facility] [address] [place] [address] Referring Physician Cardiology 02/18/21 Bc Martinez MD [address] [place] [address] Consulting Physician Cardiology 10/22/21 08/21/23 Bc Martinez MD [address] [place] [address] Referring Physician Cardiology 08/22/23 Martin Correa MD [address] [place] [address] Consulting Physician Cardiothoracic Surgery 08/22/23 [facility] [address] [facility] [facility] [address] [place] [address] Consulting Physician Neurology 07/09/24 documented as of this encounter
--- OUTSIDE RECORDS SUMMARY | 2025-01-27 10:54 | XMS_ITS | Encounter Summary ---
Author Organization [facility] Address [address] [place] [address] Phone Care Team Providers Care Sewer Contractor Name Role Phone Jason Winters MD Primary Care Provider [phone] Christine Kendall MD Unavailable [phone] Sita Magana MD Unavailable [phone] Nabila King MD Primary Care Provider + [phone] Regulo Pandey MD Unavailable Gigi Méndez MD Unavailable [phone] Bc Martinez MD Unavailable [phone] Bc Martinez MD Unavailable [phone] Martin Correa MD Unavailable [phone] Gildardo Gonzáles Si, MD Unavailable Encounter Details Date Type Department Care Team (Late st Contact Info) Description 08/03/2018 Orders Only [facility] [address] [place] [address] Nabila King MD [address] [place] [address] Social History Tobacco Use Types Packs/Day Years Used Date Smoking Tobacco: Never Alcohol Use Standard Drinks/Week Comments No 0 (1 standard drink = 0.6 oz pur e alcohol) Comments Unknown Sex and Gender Information Value Date Recorded Sex Assigned at Not on file Legal Sex Female 8:14 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 Gender Identity Not on file Sexual Orientation [...] on filedocumented in this encounter Care Teams Sewer Contractor Relationship Specialty Start Date End Date Jason Winters MD [address] [place] [address] PCP - General Family Medicine 07/23/18 12/15/20 Nabila King MD [facility] [address] [place] [address] PCP - General Internal Medicine 12/16/20 Christine Kendall MD [address] [place] [address] Surgeon Ophthalmology 12/13/20 Sita Magana MD [address] [place] [address] Consulting Physician Internal Medicine 12/13/20 Regulo Pandey MD [address] [place] [address] Referring Physician Cardiovascular Disease 12/16/20 Gigi Méndez MD [address] [place] [address] Referring Physician Cardiology 02/18/21 Bc Martinez MD [address] [place] [address] Consulting Physician Cardiology 10/22/21 08/21/23 Bc Martinez MD [address] [place] [address] Referring Physician Cardiology 08/22/23 Martin Correa MD [address] [place] [address] Consulting Physician Cardiothoracic Surgery 08/22/23 NiviaGildardo Si, MD [address] [facility] [place] [address] Consulting Physician Neurology 07/09/24 documented as of this encounter
--- OUTSIDE RECORDS SUMMARY | 2025-01-27 10:54 | XMS_ITS | Encounter Summary ---
Author Organization [facility] Address [address] [place] [address] Phone Care Team Providers Care Costume Technician Name Role Phone Jason Winters MD Primary Care Provider [phone] Christine Kendall MD Unavailable [phone] Sita Magana MD Unavailable [phone] Nabila King MD Primary Care Provider [phone] Regulo Pandey MD Unavailable Gigi Méndez MD Unavailable [phone] Bc Martinez MD Unavailable [phone] Bc Martinez MD Unavailable [phone] Martin Correa MD Unavailable [phone] Gildardo Gonzáles Si, MD Unavailable Encounter Details Date Type Department Care Team (Late st Contact Info) Description 06/17/2019 Orders Only [facility] [address] [place] [address] Nabila King MD [address] [place] [address] Social History Tobacco Use Types Packs/Day Years Used Date Smoking Tobacco: Never Smokeless Tobacco: Never Alcohol Use Standard Drinks/Week Comments No 0 (1 standard drink = 0.6 oz pur e alcohol) Comments Unknown Sex and Gender Information Value Date Recorded Sex Assigned at Not on file Legal 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 Gender Identity Not on file Sexual [...] on filedocumented in this encounter Care Teams Costume Technician Relationship Specialty Start Date End Date Jason Winters MD [address] [place] [address] PCP - General Family Medicine 07/23/18 12/15/20 Nabila King MD [facility] [address] [place] [address] PCP - General Internal Medicine 12/16/20 Christine Kendall MD [address] [place] [address] Surgeon Ophthalmology 12/13/20 Sita Magana MD [facility] [address] [place] [address] Consulting Physician Internal Medicine 12/13/20 Regulo Pandey MD [address] [place] [address] Referring Physician Cardiovascular Disease 12/16/20 Gigi Méndez MD [address] [place] [address] Referring Physician Cardiology 02/18/21 Bc Martinez MD [address] [place] [address] Consulting Physician Cardiology 10/22/21 08/21/23 Bc Martinez MD [address] [place] [address] Referring Physician Cardiology 08/22/23 Martin Correa MD [address] [place] [address] Consulting Physician Cardiothoracic Surgery 08/22/23 [facility] [address] [facility] [place] [address] Consulting Physician Neurology 07/09/24 documented as of this encounter
--- OUTSIDE RECORDS SUMMARY | 2025-01-27 10:55 | XMS_ITS | Referral Summary ---
Author Organization [facility] Address [address] [place] [address] Phone Care Team Providers Care It Assistant Name Role Phone Faiza Christine Magaña MD Unavailable [phone] Melinda Magana MD Unavailable [phone] Nabila King MD Primary Care Provider + [phone] Gigi Méndez MD Unavailable [phone] Bc Martinez MD Unavailable [phone] Martin Correa MD Unavailable [phone] NiviaGildardo bowen Si, MD Unavailable Encounters Date Type Department Care Team Description 01/16/2025 10:18 AM CDT - 01/16/2025 11:59 PM CDT Hospital Encounter [facility] [address] [place] [address] A, [address] [place] [address] Doug Elena MD Myalgia, other site (Primary Dx) Discharge Disposition: Discharge to home or self care 01/12/2025 Orders Only [facility] [address] [place] [address] Scanning, Provider 12/26/2024 3:08 PM CDT - 12/26/2024 11:59 PM CDT Hospital Encounter [facility] [address] [place] [address] A, [address] [place] [address] Doug Elena MD Myalgia, other site Discharge Disposition: Discharge to home or self care 11/28/2024 10:12 AM CDT - 11/28/2024 11:59 PM CDT Hospital Encounter [facility] [address] [facility] [address], [address] [place] [address] Doug Elena MD Myalgia, other site (Primary Dx); Cervical radiculopathy; Facet arthropathy, cervical Discharge Disposition: Discharge to home or self care 11/26/2024 Telephone [facility] [address] [facility] [address] [place] [address] Nabila King MD Lab Results 11/20/2024 Results Follow-Up [facility] 1 [facility] [address] [place] [address] Nabila King MD Vitamin D 25 hydroxy, Lipid panel, Iron profile w/ IBC, Additional followed-up results: 5 11/14/2024 Telephone [facility] 1 [facility] [address] [place] [address] Nabila King MD 11/14/2024 11:15 AM CDT Office Visit [facility] 1 [facility] [address] [place] [address] Nabila King MD Annual physical exam (Primary [...] for hepatitis B screening test; Immunization counseling from Last 3 Months Allergies Active Allergy Reactions Criticality Noted Date Comments Chloramphenicol Other (See comments) Low Damaged liver and wiped out white blood cells Clarithromycin Hives Medium Gum Plczyv-Siiwlk-Whms-Alcoho l Hives,Rash Medium 03/18/2022 Pt reports this [...] 06/23/2024 Assessment & Plan (06/23/2024 6:27 PM NUT CHOPPER): Chronic, uncontrolled. Worse in the last 3 [...] 06/23/2024 Assessment & Plan (06/23/2024 6:28 PM NUT CHOPPER): Chronic, uncontrolled. Worse in the last 3 [...] 06/23/2024 Assessment & Plan (06/23/2024 6:40 PM NUT CHOPPER): Chronic, controlled. Recent facial MRI shows Nonspecific 1.6 x 0.3 x 1.3 cm peripherally enhancing fluid collection along the anterior midline mandibular body suspicious for an abscess in the appropriate clinical setting. No adjacent cortical destruction or bone edema. Mild mucosal thickening of the inferior left maxillary sinus. Patient has been taking daily doxycycline since February and has seen flexo operator multiple times. CBC from January unremarkable. No [...] History of hematuria 03/12/2019 Overview (12/28/2020): LEX Cavanaugh. CT abdomen pelvis with and without contrast [...] 0 Assessment & Plan (06/23/2024 6:33 PM NUT CHOPPER): Chronic, controlled. Managed by Cardiology. CMP from [...] normal reflexes. She recently started turmeric and date night caregiver last week along with stretching exercises. I [...] stage Assessment & Plan (07/15/2024 11:01 PM NUT CHOPPER): intraocular pressure (IOP) acceptable off meds status [...] DFE Assessment & Plan (09/20/2021 6:46 PM NUT CHOPPER): intraocular pressure (IOP) acceptable off meds status [...] 24-2 Assessment & Plan (07/23/2018 11:42 AM NUT CHOPPER): intraocular pressure (IOP) excellent- blebs functioning well [...] 2014 Assessment & Plan (07/15/2024 11:02 PM NUT CHOPPER): Now VS with glare symptoms No noted [...] observe Assessment & Plan (09/20/2021 12:48 PM NUT CHOPPER): Not VS- observe Assessment & Plan (12/14/2020 [...] visit Assessment & Plan (07/23/2018 11:42 AM NUT CHOPPER): Not visually significant Assessment & Plan (01/22/2018 [...] benefit from pain management. 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 Dizziness 05/21/2021 04/10/2022 Adjustment disorder with anxiety [...] undergo trial of Doxy 50 mg/day per gathering machine feeder Pseudophakia 01/22/2018 04/10/2022 Assessment & Plan (03/18/2022 11:46 AM CDT): Recommend MRx with local photoengraving machine operator/tender Mitral valve disease 09/30/2014 022 Overview (11/24/2016): [...] PPV23 06/05/2022 Sars-cov-2 Covid-19 Mrna, Bi valent, Original/bettieron Ba.1 05/01/2024 ZOSTER Recombinant 05/03/2018,02/02/2018 Social History [...] on file Legal Sex Female 8:14 PM NUT CHOPPER Gender Identity Not on file Sexual Orientation [...] S Final Result [facility] * Thyroid Function [place] (11/18/2024 9:10 AM CDT) Pathologist [facility] TSH 1.970 0.450 - 4.500 uIU/mL [facility] - 01 Comment: No apparent thyroid disorder. Additional testing not indicated. In rare instances, Secondary Hypothyroidism as well as Subclinical Hypothyroidism have been reported in some patients with normal TSH values. Blood 11/18/2024 9:10 AM CDT 11/18/2024 Narrative [facility] - 11/19/2024 9:36 AM CDT Performed at: [facility] [id number] Sales Compensation Analyst: Darek Farrell PhD, Phone: [phone] us Nabila King MD LAB BLOOD ORDERABLES Final Result Performing Organization Address [facility] Co de Phone Number [facility] - * Iron profile w/ IBC (11/18/2024 9:10 AM CDT) Pathologist [facility] Iron Bind.Cap.(TIBC) 312 250 - 450 ug/dL [facility] - 01 UIBC 173 118 - 369 ug/dL [facility] - 01 Iron 139 27 - 139 ug/dL [facility] - 01 Iron saturation 45 15 - 55 % [facility] - 01 Blood 11/18/2024 9:10 AM CDT 11/18/2024 Narrative [facility] - 11/19/2024 9:36 AM CDT Performed at: [address] [id number] Sales Compensation Analyst: Darek Farrell PhD, Phone: [phone] us Nabila King MD LAB BLOOD ORDERABLES Final Result Performing Organization Address City/[facility]/ZIP Co de Phone Number [facility] * (ABNORMAL) CBC with auto differential (11/18/2024 9:10 AM CDT) [facility] WBC 6.4 3.4 - 10.8 x10E3/uL [facility] [...] - 11/19/2024 7:37 AM CDT Performed at: [facility] [address] [id number] Sales Compensation Analyst: Darek Farrell PhD, Phone: [phone] us Nabila King MD LAB BLOOD ORDERABLES Final Result [facility] - 01 * Hepatitis B core antibody, total Blood (11/18/2024 9:10 AM CDT) Hep B core IgG/IgM Negative Negative [facility] Blood 11/18/2024 9:10 AM CDT 11/18/2024 Narrative [facility] - 11/19/2024 7:37 AM CDT Performed at: [address] [id number] Sales Compensation Analyst: Darek Farrell PhD, Phone: [phone] Nabila King MD LAB MICROBIOLOGY - GENERAL ORDERABLES Final Result [facility] * Vitamin D 25 hydroxy (11/18/2024 9:10 AM CDT) Vitamin D, 25-Hydroxy 46.7 30.0 - 100.0 ng/mL [facility] - Comment: Vitamin D deficiency has been defined by the [place] of Medicine and an Endocrine Society practice guideline as a level of serum 25-OH vitamin D less than 20 ng/mL (1,2). The Endocrine Society went on to further define vitamin D insufficiency as a level between 21 and 29 ng/mL (2). 1. IOM ([place] of Medicine). 2010. Dietary reference intakes for calcium and D. [place]: The National Academies Press. 2. Harvey MF, Monica NC, Kenneth RICHARDSON, et al. Evaluation, treatment, and prevention of vitamin D deficiency: an Endocrine Society clinical practice guideline. JCEM. 2010; 96(7):1911-30. Blood 11/18/2024 9:10 AM CDT 11/18/2024 Narrative [facility] - 11/19/2024 7:37 AM CDT Performed at: [address] [place] [id number] Sales Compensation Analyst: Darek Farrell PhD, Phone: [phone] us Nabila King MD LAB BLOOD ORDERABLES Final Result Performing Organization Address [facility] Co de Phone Number [facility] - * Hepatitis B surface antibody (immune status) Blood (11/18/2024 9:10 AM CDT) [facility] HBsAb (immune status) Non Reactive [facility] - 01 Comment: Non Reactive: Not immune to HBV infection. Equivocal: Unable to determine if anti-HBs is present at levels consistent with immunity. Reactive: Anti-HBs concentration detected at greater than 10 mIU/mL. Individual is considered to be immune to infection with HBV. Blood 11/18/2024 9:10 AM CDT 11/18/2024 Narrative [facility] - 11/19/2024 7:37 AM CDT Performed at: [address] [place] [address] Sales Compensation Analyst: Darek Farrell PhD, Phone: [phone] Nabila King MD LAB MICROBIOLOGY - GENERAL ORDERABLES Final Result Performing Organization Address [facility] de Phone Number [facility] - * Hepatitis B Surface Antigen Blood (11/18/2024 9:10 AM CDT) [facility] HepBsAg Negative Negative [facility] - Blood 11/18/2024 9:10 AM CDT 11/18/2024 Narrative [facility] - 11/19/2024 7:37 AM CDT Performed at: [address] [place] [id number] Sales Compensation Analyst: Darek Farrell PhD, Phone: [phone] Nabila King MD LAB MICROBIOLOGY - GENERAL ORDERABLES Final Result Performing Organization Address [facility] de Phone Number [facility] - 01 * Lipid panel (11/18/2024 9:10 AM CDT) [facility] Cholesterol 152 100 - 199 mg/dL [facility] - 01 Triglycerides 75 0 - 149 mg/dL [facility] - 01 HDL Cholesterol 68 >39 mg/dL [facility] - 01 VLDL 14 5 - 40 mg/dL [facility] - 01 LDL, calculated 70 0 - 99 mg/dL [facility] - 01 Blood 11/18/2024 9:10 AM CDT 11/18/2024 Narrative [facility] - 11/19/2024 9:36 AM CDT Performed at: [address] [place] [id number] Sales Compensation Analyst: Darek Farrell PhD, Phone: [phone] us Nabila King MD LAB BLOOD ORDERABLES Final Result [facility] 01 * Comprehensive metabolic panel (11/18/2024 9:10 AM CDT) Pathologist [facility] Glucose 89 70 - 99 mg/dL [facility] [...] 11/19/2024 7:37 AM CDT Performed at: - [address] [id number] Sales Compensation Analyst: Darek Farrell PhD, Phone: [phone] us Nabila King MD LAB BLOOD ORDERABLES Final Result [facility] - 01 * Dexa Axial Skeleton Bone Density 1 or 2 Site (03/30/2023 2:05 PM CDT) Anatomical Region Laterality Modality Body N/A Radiographic Cayla ging Narrative 03/30/2023 3:51 PM CDT Patient Name: Lisa Conn Date of : 1935 Date of scan: 03/30/2023 Bone mineral density was performed on a [employer] Discovery Densitometer. Based on machine cross-calibration and [...] by the International Society of Clinical Densitometry. 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 ADVANCE DIRECTIVE 07/04/2022 POWER OF A [employer] Care Teams It Assistant Relationship Specialty Start Date End Date Nabila King MD [address] [place] [address] [address] PCP - General Internal Medicine 12/16/20 Christine Kendall MD Surgeon Ophthalmology 12/13/20 Melinda Magana MD [address] [facility] [address] [place] [address] Consulting Physician Internal Medicine 12/13/20 Gigi Méndez MD [address] [facility] [address] [place] [address] Referring Physician Cardiology 02/18/21 Bc Martinez MD [address] [place] [address] Referring Physician Cardiology 08/22/23 Martin Correa MD [address] [place] [address] Consulting Physician Cardiothoracic Surgery 08/22/23 Gildardo Gonzáles Si, MD [facility] [address] [place] [address] Consulting Physician Neurology 07/09/24
== END 2025-01-27 09:55 | disposition home or self-care (01) ==
PROVIDERS: PCP Otolaryngology; Visit Provider Otolaryngology
DX: J32.3 Chronic sphenoidal sinusitis (principal); J32.0 Chronic maxillary sinusitis; J34.2 Deviated nasal septum
CPT/HCPCS: 70480

== ENCOUNTER 2025-04-23 13:37 | Outpatient (CLI) | payer MEDICARE, SELFPAY ==
--- NOTE | ~2025-04-23 | DEXA_ITS ---
Bone Density Report Name: ESCOBAR CRUZ Age: 89 Sex: Female Ethnicity: White Date of : 1935 Indication: postmenopausal osteoporosis; monitoring treatment; prior fracture; Referring Provider: JEANNE GÓMEZ Study: Bone densitometry was performed. Exam Date: April 23, 2025 Accession number: [id number] Bone Density: Region BMD T-score Z-score Classification AP Spine(L1-L4) 0.778 -2.4 0.4 Osteopenia Femoral Neck (Left) 0.641 -1.9 0.6 Osteopenia Total Hip (Left) 0.744 -1.6 0.7 Osteopenia Femoral Neck (Right) 0.716 -1.2 1.3 Osteopenia Total Hip (Right) 0.781 -1.3 1.0 Osteopenia Total Hip Mean 0.762 -1.5 0.9 Osteopenia World Health Organization criteria for BMD impression classify patients as: Normal (T-score at or above -1.0), Osteopenia (T-score between -1.0 and -2.5), or Osteoporosis (T-score at or below -2.5). 10-year Fracture Risk: FRAX not reported because: Prior hip or vertebral fracture Treated for osteoporosis Previous Exams: -- Region Exam Age BMD T-score BMD Change BMD Change Date g/cm2 vs Baseline vs Previous -- AP Spine (L1-L4) 04/23/2025 89 0.778 -2.4 -4.0%# 0.3%# 03/26/2012 76 0.776 -2.5 -4.2%# -1.0% 02/08/2010 74 0.783 -2.4 -3.3%# 0.5% 01/21/2008 72 0.779 -2.4 -3.8%# -1.8% 01/18/2006 70 0.793 -2.3 -2.0%# -2.0%# 01/16/2004 68 0.810 -2.2 Total Hip(Left) 04/23/2025 89 0.744 -1.6 -8.1%# -5.9%# 03/26/2012 76 0.791 -1.2 -2.3%# -0.8% 02/08/2010 74 0.797 -1.2 -1.5%# -3.6%* 01/21/2008 72 0.826 -0.9 2.1%# 0.0% 01/18/2006 70 0.826 -0.9 2.1%# 2.1%# 01/16/2004 68 0.809 -1.1 Total Hip(Right) 04/23/2025 89 0.781 -1.3 -1.7%# -3.1%# 03/26/2012 76 0.805 -1.1 1.4%# -0.6% 02/08/2010 74 0.810 -1.1 2.0%# -2.3% 01/21/2008 72 0.829 -0.9 4.4%# -4.7%* 01/18/2006 70 0.870 -0.6 9.6%# 9.6%# 01/16/2004 68 0.794 -1.2 -- *Denotes significance at 95% confidence level, LSC for AP Spine = 0.022 g/cm2, LSC for Total Hip = 0.027 g/cm2 # Denotes dissimilar scan types or analysis methods Clinical Information Provided by Patient: Have had a previous hip or vertebral fracture Has had a low trauma fracture Is being treated for osteoporosis Has used the following medications: Fosamax (i.e. alendronate), HRT (i.e. estrogen/hormone therapy), Vitamin D, Calcium Has the following medical conditions: BENEDICT THYROID Patient maximum height was 65 Menopause Age: 51 Drinks caffeinated beverages Onset of menses at age 15 Number of children 2 Impression: The patient has low bone mass, based on the Total Spine T-score. The patient has risk factors, including: previous fracture. Unable to evaluate interval change due to the use of different scan modes. Discussion: PATIENT UNDER TREATMENT WITH NO SIGNIFICANT BMD LOSS SINCE LAST EXAM. In an untreated patient, BMD typically declines with age. A lack of decline or gain is usually a sign that treatment is efficacious and fracture risk is reduced. It is important to ask patients whether they are taking their medications and to encourage continued and appropriate compliance with their osteoporosis therapies to reduce fracture risk. It is also important to review their risk factors and encourage appropriate calcium and vitamin D intakes, exercise, fall prevention and other lifestyle measures. Follow-Up: Consider a repeat BMD and Vertebral Fracture Assessment (VFA) exam in 2 years or sooner if medically necessary, to reassess this patient's status. Reported by: STEPHANE on 04/23/2025 2:11:00 PM. Reviewed, dictated and finalized at location A.
== END 2025-04-23 13:38 | disposition home or self-care (01) ==
PROVIDERS: PCP Otolaryngology; Visit Provider Obstetrics & Gynecology
DX: M85.88 Other specified disorders of bone density and structure, other site (principal); M85.852 Other specified disorders of bone density and structure, left thigh; M85.851 Other specified disorders of bone density and structure, right thigh
CPT/HCPCS: 77080